=== PATIENT | male | born 1950 | race Caucasian/White ===

== ENCOUNTER 2016-12-14 11:11 | Inpatient (IN) ==
--- NOTE | 2016-12-14 11:44 | Emergency Department Note ---
START Narrative - START START: I examined this patient and my medical decision-making was reviewed with the SUPERVISOR MOLDING/PA/Advanced Practice Nurse/Resident Physician. I agree with the documented findings, disposition and treatment plan as described except to the extent set forth below. Patient to ED from the [facility]. Patient states he is still gaining weight despite being on increased Lasix. Feels fluid overloaded. Short of breath. There was also some concern as pacemaker may not been working correctly. On exam he does not appear to be in any acute distress. Plan. Cardiac workup. Diuresis. Pacemaker interrogation. On interrogation pacemaker is working correctly. Paced at 61.
[2016-12-14 11:48] LABS: Basophils % 0.6 %; Eosinophils # 0.4 K/mcL (0.0-0.6); Hematocrit 42.7 % (37.5-50.1); Hemoglobin 13.9 g/dL (12.9-16.9); Immature Granulocytes % 0.3 % (0-4); Lymphocytes % 14.5 %; Mean Corpuscular HGB Conc 32.6 g/dL (31.6-35.5); Mean Corpuscular Hemoglobin 28.6 pg (28.0-33.3); Mean Corpuscular Volume 87.9 fL (83.0-100.0); Mean Platelet Volume 9.2 fL (9.4-12.4); Monocytes # 0.7 K/mcL (0.0-1.3); Monocytes % 10.2 %; Neutrophils # 4.8 K/mcL (1.6-8.9); Platelet Count 240 K/mcL (140-400); Red Blood Count 4.86 M/mcL (4.19-5.50); Red Cell Distribution Width 15.4 % (11.5-14.5); Segmented Neutrophils % 69.4 %
[2016-12-14 11:49] LABS: INR 2.2; Prothrombin Time 24.1 Seconds (9.4-12.1)
[2016-12-14 12:01] LABS: Alanine Aminotransferase 28 Units/L (0-55); Albumin 3.3 g/dL (3.5-5.0); Alkaline Phosphatase 119 Units/L (38-126); Aspartate Amino Transferase 19 Units/L (5-34); BUN/Creatinine Ratio 14 (6-26); Bilirubin,Direct 0.2 mg/dL (0.0-0.5); Bilirubin,Indirect 0.2 mg/dL (0.0-1.2); Bilirubin,Total 0.4 mg/dL (0.2-1.2); Blood Urea Nitrogen 19 mg/dL (8-26); Calcium 9.1 mg/dL (8.6-10.8); Carbon Dioxide 28 mEq/L (19-29); Chloride 107 mEq/L (98-109); Globulin 3.3 g/dL (2.4-3.5); Glucose 96 mg/dL (70-99); Osmolality,Calculated 290 (280-300); Potassium 4.9 mEq/L (3.5-4.5); Sodium 139 mEq/L (136-145); Total Protein 6.6 g/dL (6.0-8.3); eGFR For African Americans > 60 (> 60); eGFR For Non-African Americans 52 (> 60)
--- NOTE | 2016-12-14 12:52 | Emergency Department Note ---
Disposition Clinical Impression: Weakness, Acute kidney injury CHF exacerbation Qualifiers: Congestive heart failure type: unspecified congestive heart failure type Qualified Code(s): I50.9 - Heart failure, unspecified Disposition: Admitted As Inpatient Condition: Fair SOB HPI - General Chief Complaint: ED Shortness of Breath/Dyspnea Stated Complaint: jorge, pacemaker issues Time Seen by Provider: 12/14/16 11:12 Source: patient, EMS Mode of arrival: ambulatory Limitations: no limitations Nursing Notes Reviewed: Yes Vital Signs Reviewed: Yes - History of Present Illness Patient presents from [place] urgent care after evaluation of shortness of breath and generalized weakness. Patient has been having problems over the last week which has been treated outpatient with an increase in his Lasix from 80 twice a day to 3 times a day. Patient continues to have increased swelling in his legs and reports a 2 pound weight gain over the last 2 days. Patient has significant cardiac history. states that he typically does not get around a lot at home. Patient does well on his transfers but spends most of his time in a wheelchair. - Related Data Home Medications Medication Instructions Recorded Confirmed Aspirin Enteric Coated [Aspirin EC] 81 mg PO DAILY #0 04/09/15 12/14/16 Rivaroxaban [Xarelto] 20 mg PO DAILY #0 04/09/15 12/14/16 Trazodone HCl [TraZODone] 150 mg PO HS 12/20/15 12/14/16 Melatonin 9 mg PO HS 12/23/15 12/14/16 Finasteride [Proscar] 5 mg PO DAILY 01/30/16 12/14/16 Tamsulosin [Flomax] 0.4 mg PO DAILY 01/30/16 12/14/16 Cholecalciferol (Vitamin D3) 1,000 unit PO DAILY 03/12/16 12/14/16 [Vitamin D3] Albuterol Sulfate [Proair Hfa] 1 puff IH Q4H 12/14/16 12/14/16 Atorvastatin [Lipitor] 40 mg PO HS 12/14/16 12/14/16 Capsaicin [Arthritis Pain Relief] 1 appl TP HS PRN 12/14/16 12/14/16 Duloxetine HCl [Cymbalta] 60 mg PO DAILY 12/14/16 12/14/16 Fluticasone Propionate Nasal 1 spray NS BID 12/14/16 12/14/16 [Flonase] Furosemide [Lasix] 80 mg PO BID 12/14/16 12/14/16 Gabapentin [Neurontin] 400 mg PO BID 12/14/16 12/14/16 Imiquimod [Zyclara] 1 appl TP HS 12/14/16 12/14/16 LORazepam [Ativan] 0.5 mg PO HS 12/14/16 12/14/16 Magnesium Carbonate/Al Hydrox 2 tab PO BID PRN 12/14/16 12/14/16 [Gaviscon Es Tablet Chew] Memantine [Namenda] 5 mg PO AD 12/14/16 12/14/16 Metoprolol Succinate 25 mg PO DAILY 12/14/16 12/14/16 Oxycodone HCl [Oxaydo] 10 mg PO BID PRN 12/14/16 12/14/16 Pantoprazole Sodium [Protonix] 40 mg PO DAILY 12/14/16 12/14/16 Polyethylene Glycol 3350 [MiraLAX 17 gm PO DAILY PRN 12/14/16 12/14/16 Powder Bulk 17.9 Oz] Potassium Chloride [Klor-Con 20 meq PO QID 12/14/16 12/14/16 Sprinkle] Sennosides/Docusate Sodium 1 tab PO BID 12/14/16 12/14/16 [Senna-Docusate Sodium Tablet] Spironolactone [Aldactone] 50 mg PO DAILY 12/14/16 12/14/16 Tizanidine HCl [Zanaflex] 2 mg PO BID 12/14/16 12/14/16 metOLazone [Zaroxolyn] 2.5 mg PO DAILY 12/14/16 12/14/16 Allergies Allergy/AdvReac Type Severity Reaction Status Date / Time IVP DYE Allergy Anaphylaxis Uncoded 12/23/15 21:12 Review of Systems: CONSTITUTIONAL: Generalized weakness and fatigue No weight loss, fever, chills, HEENT: Eyes: No visual changes. Ears, Nose, Throat: No hearing loss, difficulty talking or unable to swallow. SKIN: No rash or itching. CARDIOVASCULAR: Increasing lower extremity edema No chest pain, chest pressure or chest discomfort. No palpitation RESPIRATORY: Increasing shortness of breath GASTROINTESTINAL: No anorexia, nausea, vomiting or diarrhea. No abdominal pain or blood. GENITOURINARY: No burning on urination or hematuria. NEUROLOGICAL: No headache, dizziness, syncope, paralysis, ataxia, numbness or tingling in the extremities. No change in bowel or bladder control. MUSCULOSKELETAL: No muscle pain, back pain, joint pain or stiffness. Past Medical History - Past Medical History Medical history: Reports: arthritis, atrial fibrillation, CHF, COPD, coronary artery disease, CVA, GERD, hyperlipidemia, hypertension, pulmonary embolus, syncope, venous stasis, other Surgical history: Reports: herniorrhaphy, knee replacement, pacemaker/AICD, other Psychiatric history: Reports: anxiety, depression - Social History Smoking Status: Former smoker Smokeless Tobacco Status: No Alcohol use: Reports: none Drug use: Reports: none Physical Exam General appearance: Feels tired, prefers keeping his eyes closed. conversant Eyes: anicteric sclerae, moist conjunctivae; PERRL HENT: Atraumatic; oropharynx clear with moist mucous membranes and no mucosal ulcerations Neck: Normal inspection; Trachea midline; FROM, supple Lungs: CTA, with normal respiratory effort and no intercostal retractions CV: RRR, no MRGs Abdomen: Soft, non-tender; no rebound or gaurding Scrotum with mild edema but no ecchymosis or significant tenderness. Extremities: +2 pitting edema to the knee Skin: Normal temperature; no rash, ulcers or lesions Psych: Flat affect Neuro: alert and oriented to person, place and time - Expanded Neurological Exam Speech: Present: anomia Cranial nerves: EOM function (II, III, IV, ): Normal, facial sensation (V): Normal, facial palsy (VII): Normal, spinal accessory function (XI): Normal, tongue deviation (XII): Normal Motor strength - LUE: 5/5 Motor strength - RUE: 5/5 Motor strength - LLE: 5/5 Motor strength - RLE: 5/5 Sensory exam upper extremity: light touch: Normal Sensory exam lower extremity: light touch: Normal Coma Scale Eye Opening: Spontaneous Coma Scale Motor Response: Obeys Commands Coma Scale Verbal Response: Oriented Coma Scale Total: 15 Course - Reevaluation(s) Reevaluation #1: Transferring physician initially worried about some pacemaker QRS dissociation. Not appreciated on our EKG. Pacemaker interrogated without abnormality. Reevaluation #2: Discussed with . states that with the swelling she is concerned about his heart failure as this is what has happened in the past. She says his heart enzymes were never elevated but that this has been the cause in the past as well. Patient is improved in the past after fluid removal. At this time the patient has increased his home Lasix and does have acute kidney injury. Lasix held at this time. Will defer to the hospitalist team in regards to further management of CHF exacerbation as he is not in current distress. - Consultations Consultation #1: Discussed with hospitalist. Patient accepted. Vital Signs Temperature 97.5 F L 12/14/16 11:12 Pulse Rate 63 12/14/16 11:12 Respiratory Rate 20 12/14/16 11:12 Blood Pressure 94/63 12/14/16 11:12 O2 Sat by Pulse Oximetry 91 12/14/16 11:12 Temperature 97.4 F L 12/14/16 14:35 Pulse Rate 65 12/14/16 14:35 Respiratory Rate 14 12/14/16 14:35 Blood Pressure 103/70 12/14/16 14:35 O2 Sat by Pulse Oximetry 96 12/14/16 14:35 Oxygen Delivery Oxygen Delivery Nasal Cannula Shortness of Breath/Dyspnea - Lab Data Result diagrams: 12/14/16 11:37 12/14/16 11:37 Lab Results 12/14/16 12/14/16 12/14/16 Range/Units 11:37 11:37 11:37 WBC 7.0 (4.3-11.1) K/mcL RBC 4.86 (4.19-5.50) M/mcL Hgb 13.9 (12.9-16.9) g/dL Hct 42.7 (37.5-50.1) % MCV 87.9 (83.0-100.0) fL MCH 28.6 (28.0-33.3) pg MCHC 32.6 (31.6-35.5) g/dL RDW 15.4 H (11.5-14.5) % Plt Count 240 (140-400) K/mcL MPV 9.2 L (9.4-12.4) fL Immature Gran % 0.3 (0-4) % Seg Neutrophils % 69.4 % Lymphocytes % 14.5 % Monocytes % 10.2 % Eosinophils % 5.0 % Basophils % 0.6 % Neutrophils # 4.8 (1.6-8.9) K/mcL Lymphocytes # 1.0 (0.6-4.6) K/mcL Monocytes # 0.7 (0.0-1.3) K/mcL Eosinophils # 0.4 (0.0-0.6) K/mcL Basophils # 0.0 (0.0-0.2) K/mcL PT 24.1 H (9.4-12.1) Seconds INR 2.2 Sodium 139 (136-145) mEq/L Potassium 4.9 H (3.5-4.5) mEq/L Chloride 107 (98-109) mEq/L Carbon Dioxide 28 (19-29) mEq/L BUN 19 (8-26) mg/dL Creatinine 1.38 H (0.72-1.25) mg/dL Est GFR ( Amer) > 60 (> 60) Est GFR (Non-Af Amer) 52 L (> 60) BUN/Creatinine Ratio 14 (6-26) Glucose 96 (70-99) mg/dL Calculated Osmolality 290 (280-300) Calcium 9.1 (8.6-10.8) mg/dL Total Bilirubin 0.4 (0.2-1.2) mg/dL Direct Bilirubin 0.2 (0.0-0.5) mg/dL Indirect Bilirubin 0.2 (0.0-1.2) mg/dL AST 19 (5-34) Units/L ALT 28 (0-55) Units/L Alkaline Phosphatase 119 (38-126) Units/L Troponin I (0-0.03) ng/mL B-Natriuretic Peptide (0-100) pg/mL Serum Total Protein 6.6 (6.0-8.3) g/dL Albumin 3.3 L (3.5-5.0) g/dL Globulin 3.3 (2.4-3.5) g/dL Albumin/Globulin Ratio 1.0 L (1.1-2.2) 12/14/16 12/14/16 Range/Units 11:37 11:37 WBC (4.3-11.1) K/mcL RBC (4.19-5.50) M/mcL Hgb (12.9-16.9) g/dL Hct (37.5-50.1) % MCV (83.0-100.0) fL MCH (28.0-33.3) pg MCHC (31.6-35.5) g/dL RDW (11.5-14.5) % Plt Count (140-400) K/mcL MPV (9.4-12.4) fL Immature Gran % (0-4) % Seg Neutrophils % % Lymphocytes % % Monocytes % % Eosinophils % % Basophils % % Neutrophils # (1.6-8.9) K/mcL Lymphocytes # (0.6-4.6) K/mcL Monocytes # (0.0-1.3) K/mcL Eosinophils # (0.0-0.6) K/mcL Basophils # (0.0-0.2) K/mcL PT (9.4-12.1) Seconds INR Sodium (136-145) mEq/L Potassium (3.5-4.5) mEq/L Chloride (98-109) mEq/L Carbon Dioxide (19-29) mEq/L BUN (8-26) mg/dL Creatinine (0.72-1.25) mg/dL Est GFR ( Amer) (> 60) Est GFR (Non-Af Amer) (> 60) BUN/Creatinine Ratio (6-26) Glucose (70-99) mg/dL Calculated Osmolality (280-300) Calcium (8.6-10.8) mg/dL Total Bilirubin (0.2-1.2) mg/dL Direct Bilirubin (0.0-0.5) mg/dL Indirect Bilirubin (0.0-1.2) mg/dL AST (5-34) Units/L ALT (0-55) Units/L Alkaline Phosphatase (38-126) Units/L Troponin I 0.00 (0-0.03) ng/mL B-Natriuretic Peptide 194 H (0-100) pg/mL Serum Total Protein (6.0-8.3) g/dL Albumin (3.5-5.0) g/dL Globulin (2.4-3.5) g/dL Albumin/Globulin Ratio (1.1-2.2)
[2016-12-14] MEDS ORDERED: Acetaminophen 325 MG TABLET PO PRN (14:17)
[2016-12-14] MEDS ORDERED: Naloxone 0.4 MG/ML INJ IVP PRN (14:17)
[2016-12-14] MEDS ORDERED: Furosemide 80 MG in 0.9 % Sodium Chloride 50 ML IVPB ONE (14:33)
--- NOTE | 2016-12-14 14:47 | Internal Med History&Physical ---
<Miguel Ángel Samano - Last Filed: 12/14/16 17:35> Date of Encounter: 12/14/16 Internal Medicine - H&P: HPI History of present illness: Mr. Issa is a 66 year old male Internal Medicine - H&P: Meds Aspirin Enteric Coated [Aspirin EC] 81 mg PO DAILY #0 04/09/15 [History] Rivaroxaban [Xarelto] 20 mg PO DAILY #0 04/09/15 [History] Trazodone HCl [TraZODone] 150 mg PO HS 12/20/15 [History] Melatonin 9 mg PO HS 12/23/15 [History] Finasteride [Proscar] 5 mg PO DAILY 01/30/16 [History] Tamsulosin [Flomax] 0.4 mg PO DAILY 01/30/16 [History] Cholecalciferol (Vitamin D3) [Vitamin D3] 1,000 unit PO DAILY 03/12/16 [History] Albuterol Sulfate [Proair Hfa] 1 puff IH Q4H 12/14/16 [History] Atorvastatin [Lipitor] 40 mg PO HS 12/14/16 [History] Capsaicin [Arthritis Pain Relief] 1 appl TP HS PRN 12/14/16 [History] Duloxetine HCl [Cymbalta] 60 mg PO DAILY 12/14/16 [History] Fluticasone Propionate Nasal [Flonase] 1 spray NS BID 12/14/16 [History] Furosemide [Lasix] 80 mg PO BID 12/14/16 [History] Gabapentin [Neurontin] 400 mg PO BID 12/14/16 [History] Imiquimod [Zyclara] 1 appl TP HS 12/14/16 [History] LORazepam [Ativan] 0.5 mg PO HS 12/14/16 [History] Magnesium Carbonate/Al Hydrox [Gaviscon Es Tablet Chew] 2 tab PO BID PRN [History] Memantine [Namenda] 5 mg PO AD 12/14/16 [History] Metoprolol Succinate 25 mg PO DAILY 12/14/16 [History] Oxycodone HCl [Oxaydo] 10 mg PO BID PRN 12/14/16 [History] Pantoprazole Sodium [Protonix] 40 mg PO DAILY 12/14/16 [History] Polyethylene Glycol 3350 [MiraLAX Powder Bulk 17.9 Oz] 17 gm PO DAILY PRN [History] Potassium Chloride [Klor-Con Sprinkle] 20 meq PO QID 12/14/16 [History] Sennosides/Docusate Sodium [Senna-Docusate Sodium Tablet] 1 tab PO BID 12/14/16 [History] Spironolactone [Aldactone] 50 mg PO DAILY 12/14/16 [History] Tizanidine HCl [Zanaflex] 2 mg PO BID 12/14/16 [History] metOLazone [Zaroxolyn] 2.5 mg PO DAILY 12/14/16 [History] Allergies IVP DYE Allergy (Uncoded 12/23/15 21:12) Anaphylaxis All Systems PM: A 10-system review of systems was performed and is negative for pertinent findings except as documented above in the HPI. - Constitutional Vitals: Temp Pulse Resp BP Pulse Ox 97.4 F L 65 14 103/70 96 12/14/16 14:35 12/14/16 14:35 12/14/16 14:35 12/14/16 14:35 12/14/16 14:35 Internal Med - H&P Results - Labs CBC & Chem 7: 12/14/16 11:37 12/14/16 11:37 - Attending Attestation I examined this patient and my medical decision-making was reviewed with the Advanced Practice Nurse. I agree with the documented findings, disposition and treatment plan as described except to the extent set forth below. Patient denies chest pain. Reports generalized joint aches and pains secondary to neuropathy. On exam his is in no acute distress. Heart: S1-S2 regular. Lungs: Clear to auscultation bilaterally. Extremities: 2+ lower extremity pitting edema EKG reveals atrially paced rhythm with no acute ST or T-wave changes. Plan: IV Lasix. Fluid restriction. Strict I's and O's. Hold metolazone. Monitor kidney function daily. Trend troponin. <Caprice Cast - Last Filed: 12/14/16 23:13> Date of Encounter: 12/14/16 Time of Encounter: 14:44 Assessment and Plan (1) Acute on chronic diastolic (congestive) heart failure Current visit: Yes Status: Acute Patient with increasing lower extremity edema and increased shortness of breath over the last few days, despite increasing his lasix dose from 80mg BID to 80mg TID. BNP is elevated to 194, which is highest value for this patient. CXR shows chronic small left pleural effusion with left basilar scarring and atelectasis. On exam, lungs are clear, BLE with +2 pitting edema. Last echocardiogram 04/18/16 which showed LVEF of 60%, normal LV size, wall thickness and function, moderate left ventricular diastolic dysfunction. 80mg Lasix IVPB 40mg Lasix IVP BID daily weights cardiac diet with 1.5L fluid restriction strict I/O echocardiogram. (2) Abnormal international normal ratio (INR) Current visit: Yes Status: Acute Patient with INR of 2.2. Patient not on Warfarin. He takes Xarelto for his chronic afib, which should not affect INR. will give one dose of vitamin K, continue xarelto, Check PT/INR daily. Consider consulting hematology. (3) Weakness Current visit: No Status: Acute Patient with generalized weakness. likely secondary to increased fluid retention and CHF exacerbation. PT and OT consulted. (4) Muscular deconditioning Current visit: No Status: Chronic PT and OT consultations (5) Acute kidney injury Current visit: Yes Status: Acute Patient with AG, creatinine of 1.38, up from previous of 0.99. Patient had lasix increased recently, but is in CHF exacerbation now and will continue to get lasix. Patient also reporting occasional dysuria. Will check UA and check chemistry daily. (6) Atrial fibrillation Current visit: Yes Status: Acute Patient with atrial fibrillation, also history of sick sinus syndrome with pacemaker/AICD. Pacemake was interrogated by ED which found no abnormalities. Patient takes Metoprolol for rate control and xarelto for anti-coagulation. Continue home dose of metoprolol and xarelto. Qualifiers: Atrial fibrillation type: paroxysmal Qualified Code(s): I48.0 - Paroxysmal atrial fibrillation (7) DVT prophylaxis Current visit: Yes Status: Acute anti-embolic stockings INR elevated at 2.2, patient on xarelto, additional pharmacologic prophylaxis not warranted. Internal Medicine - H&P: HPI Chief complaint: shortness of breath, weakness Admitted From: Emergency Dept Plans for Post Hospital Care: Home History of present illness: Mr. Issa is a 66 year old male with hypertension, hyperlipidemia, history of CVA, diastolic congestive heart failure, COPD, sick sinus syndrome status post pacemaker and AICD, atrial fibrillation, presented to the emergency department today from the [place] urgent care with complaints of increased bilateral lower extremity edema, increased shortness of breath, and weakness. Patient reports that the symptoms have been increasing over the last couple of days. He reports increased lightheadedness with position change, palpitations occasionally, increase in weight by 2 pounds over the last 2 days. He reports occasional burning with urination and sweats on and off. He also reports chronic nausea, and chronic bilateral lower extremity numbness and tingling. He denies vomiting, diarrhea, fever, chills. He reports he saw his compliance and control analyst Dr. Flood 2 days ago who increased his Lasix from 80 by mouth twice a day to 80 by mouth 3 times a day, but reports this has not helped his increased swelling or shortness of breath. Evaluation in the emergency department included a chest x-ray which showed chronic small left pleural effusion with left basilar scarring and atelectasis. BNP was elevated to 194, which is the highest value for this patient, troponin was negative at 0.00. He had AK I with creatinine of 1.38. INR was elevated at 2.2, the patient's not on warfarin. On exam, patient alert and oriented, in no acute distress. Heart had regular rate and rhythm, lungs are clear bilaterally to auscultation. Abdomen was distended, mildly tender to palpation. Bilateral lower extremity had +2 pitting edema. Past Med Surg Social Fam HX - Past Medical History Medical history: arthritis, atrial fibrillation, CHF, COPD, coronary artery disease, CVA, GERD, hyperlipidemia, hypertension, pulmonary embolus, syncope, venous stasis, other Psychiatric history: anxiety, depression - Past Surgical History Surgical History: herniorrhaphy, knee replacement, pacemaker/AICD, other ( cardiac ablation) - Social History Smoking Status: Former smoker (64 pack year history) Smokeless Tobacco Status: No Alcohol use: none Drug use: none - Family History Father Adopted: No Family Member Ethnicity: Non- Living Status: Age at : 43 Cause of : Cancer Hx Family Cancer: Yes Mother Adopted: No Family Member Ethnicity: Non- Twin of Family Member: Yes Living Status: Still Living Hx Family Cardiac Disorders: Yes Hx Family Respiratory Disorders: No Hx Family Cancer: Yes (father leukemia) Hx Family GI Disorders: No Hx Family Endocrine Disorder: No Hx Family Neuromuscular Disorders: No Hx Family Neurologic Disorders: No Hx Family HEENT Disorders: No Hx Family Autoimmune Disorders: Yes (arthritis) All Systems PM: A 10-system review of systems was performed and is negative for pertinent findings except as documented above in the HPI. - Constitutional Constitutional: weakness, no chills, no fever(s), no night sweats - EENT Eyes: no change in vision, no discharge, no pain, no photophobia Ears: no ear discharge, no ear pain, no tinnitus Nose, mouth and throat: no dysphagia, no nasal discharge, no neck pain, no sore throat - Cardiovascular Cardiovascular ROS IM: dyspnea, dyspnea on exertion, lightheadedness, palpitations, no chest pain, no diaphoresis, no syncope - Respiratory Respiratory: dyspnea, no cough, no wheezing, no excessive phlegm production - Gastrointestinal Gastrointestinal: nausea, no abdominal pain, no diarrhea, no hematemesis, no hematochezia, no melena, no vomiting - Genitourinary Genitourinary ROS male: dysuria, urinary hesitancy - Musculoskeletal Musculoskeletal ROS IM: numbness, tingling (chronic in bilateral feet) - Integumentary Integumentary IM: no rash, no unusual bruising - Neurological Neurological ROS: no confusion, no convulsions, no focal weakness, no numbness, no tingling, no tremor(s) - Hematologic/Lymphatic Hematologic/Lymphatic: no easy bruising - Constitutional Vitals: Temp Pulse Resp BP Pulse Ox 97.4 F L 65 14 103/70 96 12/14/16 14:35 12/14/16 14:35 12/14/16 14:35 12/14/16 14:35 12/14/16 14:35 General appearance: Present: A&O X 3, pleasant - Head Head exam: Present: atraumatic, normocephalic - Eye Eye exam: Present: PERRL, conjuntiva pink, sclera anicteric Pupils: Present: PERRL - Neck Neck exam general surgery: Present: supple, trachea midline. Absent: lymphadenopathy - Respiratory Respiratory exam: Present: CTAB. Absent: accessory muscle use, rales, rhonchi, wheezes - Cardiovascular Cardiovascular exam: Present: RRR, +S1, +S2. Absent: diastolic murmur, gallop, rubs, systolic murmur - GI/Abdominal GI/Abdominal exam: Present: normal bowel sounds, soft, tenderness (mild diffuse) , no peritoneal signs. Absent: distended - Extremities Exam Extremities exam: Present: pedal edema (+2 BLE edema), warm, radial pulses palpable and symetrical. Absent: calf tenderness, cyanotic - Neurological Exam Neurological exam: Present: CN II-XII intact, oriented X3, no focal deficits. Absent: facial droop, speech deficit - Skin Skin exam: Present: dry, intact Internal Med - H&P Results - Labs CBC & Chem 7: 12/14/16 11:37 12/14/16 11:37 Labs: All Lab Results (24 Hours) 12/14/16 12/14/16 12/14/16 Range/Units 11:37 11:37 11:37 WBC 7.0 (4.3-11.1) K/mcL RBC 4.86 (4.19-5.50) M/mcL Hgb 13.9 (12.9-16.9) g/dL Hct 42.7 (37.5-50.1) % MCV 87.9 (83.0-100.0) fL MCH 28.6 (28.0-33.3) pg MCHC 32.6 (31.6-35.5) g/dL RDW 15.4 H (11.5-14.5) % Plt Count 240 (140-400) K/mcL MPV 9.2 L (9.4-12.4) fL Immature Gran % 0.3 (0-4) % Seg Neutrophils % 69.4 % Lymphocytes % 14.5 % Monocytes % 10.2 % Eosinophils % 5.0 % Basophils % 0.6 % Neutrophils # 4.8 (1.6-8.9) K/mcL Lymphocytes # 1.0 (0.6-4.6) K/mcL Monocytes # 0.7 (0.0-1.3) K/mcL Eosinophils # 0.4 (0.0-0.6) K/mcL Basophils # 0.0 (0.0-0.2) K/mcL PT 24.1 H (9.4-12.1) Seconds INR 2.2 Sodium 139 (136-145) mEq/L Potassium 4.9 H (3.5-4.5) mEq/L Chloride 107 (98-109) mEq/L Carbon Dioxide 28 (19-29) mEq/L BUN 19 (8-26) mg/dL Creatinine 1.38 H (0.72-1.25) mg/dL Est GFR ( Amer) > 60 (> 60) Est GFR (Non-Af Amer) 52 L (> 60) BUN/Creatinine Ratio 14 (6-26) Glucose 96 (70-99) mg/dL Calculated Osmolality 290 (280-300) Calcium 9.1 (8.6-10.8) mg/dL Total Bilirubin 0.4 (0.2-1.2) mg/dL Direct Bilirubin 0.2 (0.0-0.5) mg/dL Indirect Bilirubin 0.2 (0.0-1.2) mg/dL AST 19 (5-34) Units/L ALT 28 (0-55) Units/L Alkaline Phosphatase 119 (38-126) Units/L Troponin I (0-0.03) ng/mL B-Natriuretic Peptide (0-100) pg/mL Serum Total Protein 6.6 (6.0-8.3) g/dL Albumin 3.3 L (3.5-5.0) g/dL Globulin 3.3 (2.4-3.5) g/dL Albumin/Globulin Ratio 1.0 L (1.1-2.2) 12/14/16 12/14/16 Range/Units 11:37 11:37 WBC (4.3-11.1) K/mcL RBC (4.19-5.50) M/mcL Hgb (12.9-16.9) g/dL Hct (37.5-50.1) % MCV (83.0-100.0) fL MCH (28.0-33.3) pg MCHC (31.6-35.5) g/dL RDW (11.5-14.5) % Plt Count (140-400) K/mcL MPV (9.4-12.4) fL Immature Gran % (0-4) % Seg Neutrophils % % Lymphocytes % % Monocytes % % Eosinophils % % Basophils % % Neutrophils # (1.6-8.9) K/mcL Lymphocytes # (0.6-4.6) K/mcL Monocytes # (0.0-1.3) K/mcL Eosinophils # (0.0-0.6) K/mcL Basophils # (0.0-0.2) K/mcL PT (9.4-12.1) Seconds INR Sodium (136-145) mEq/L Potassium (3.5-4.5) mEq/L Chloride (98-109) mEq/L Carbon Dioxide (19-29) mEq/L BUN (8-26) mg/dL Creatinine (0.72-1.25) mg/dL Est GFR ( Amer) (> 60) Est GFR (Non-Af Amer) (> 60) BUN/Creatinine Ratio (6-26) Glucose (70-99) mg/dL Calculated Osmolality (280-300) Calcium (8.6-10.8) mg/dL Total Bilirubin (0.2-1.2) mg/dL Direct Bilirubin (0.0-0.5) mg/dL Indirect Bilirubin (0.0-1.2) mg/dL AST (5-34) Units/L ALT (0-55) Units/L Alkaline Phosphatase (38-126) Units/L Troponin I 0.00 (0-0.03) ng/mL B-Natriuretic Peptide 194 H (0-100) pg/mL Serum Total Protein (6.0-8.3) g/dL Albumin (3.5-5.0) g/dL Globulin (2.4-3.5) g/dL Albumin/Globulin Ratio (1.1-2.2) - Diagnostic Studies Chest x-ray Additional comments: Chest X-Ray 12/14/16 11:15 IMPRESSION: Chronic small left pleural effusion with left basilar scarring and atelectasis. D/ / Tyrese Oviedo MD / Tyrese Oviedo MD Interpreting Provider: Tyrese Oviedo MD
[2016-12-14] MEDS ORDERED: *HR* Phytonadione 5 MG TABLET PO ONE (16:33)
[2016-12-14] MEDS: *HR* HYDROcodone/Acet 5/325 mg TABLET PO PRN (17:16)
[2016-12-14 18:23] LABS: Bilirubin,Urine Negative (Negative); Blood,Urine Negative (Negative); Clarity,Urine Clear (Clear); Color,Urine Yellow (Yellow); Glucose,Urine (UA) Normal (Normal); Ketones,Urine Negative (Negative); Leukocyte Esterase,Urine Negative (Negative); Nitrite,Urine Negative (Negative); PH,Urine 6.5 pH Units (5.0-8.0); Protein,Urine Negative (Neg-Trace); Urobilinogen,Urine Normal (Normal)
--- NOTE | 2016-12-14 19:43 | Electrocardiograph Report ---
[address] [place] [address] Test Date: 2016-12-14 Pat Name: Dakota Issa Department: 105 Room: 3B Gender: M Polygraph Operator: AM : 1950 Requested By: Wu Ledesma Order Number: [id number] Reading MD: Delfino Xavier MD Measurements Intervals [place] Rate: 61 P: 234 IN: 287 QRS: 73 QRSD: 130 T: 69 QT: 442 QTc: 445 Interpretive Statements ELECTRONIC ATRIAL PACEMAKER POSSIBLE INFERIOR MYOCARDIAL INFARCTION, OF INDETERMINATE AGE Electronically Signed On 12-14-2016 19:42:18 EDT by Delfino Xavier MD
[2016-12-14] MEDS: Melatonin 3 MG TABLET PO SCH (21:22)
[2016-12-14] MEDS: *HR* LORazepam 0.5 MG TABLET PO SCH (21:23)
[2016-12-14] MEDS: Fluticasone Propionate Nasal 50 MCG/SPRAY BOTTLE NS SCH (21:23)
[2016-12-14] MEDS: tiZANidine 4 MG TABLET PO SCH (21:23)
[2016-12-14] MEDS: traZODone 50 MG TABLET PO SCH (21:23)
[2016-12-14] MEDS: Gabapentin 400 MG CAPSULE PO SCH (21:23)
[2016-12-14] MEDS: Sennosides/Docusate Sodium TABLET PO SCH (21:23)
[2016-12-15 01:00] LABS: Basophils % 0.4 %; Eosinophils # 0.4 K/mcL (0.0-0.6); Eosinophils % 5.5 %; Hematocrit 41.7 % (37.5-50.1); Hemoglobin 13.3 g/dL (12.9-16.9); Immature Granulocytes % 0.3 % (0-4); Lymphocytes # 1.1 K/mcL (0.6-4.6); Lymphocytes % 14.8 %; Mean Corpuscular HGB Conc 31.9 g/dL (31.6-35.5); Mean Corpuscular Volume 87.8 fL (83.0-100.0); Mean Platelet Volume 9.5 fL (9.4-12.4); Monocytes # 0.7 K/mcL (0.0-1.3); Monocytes % 9.2 %; Neutrophils # 5.4 K/mcL (1.6-8.9); Platelet Count 250 K/mcL (140-400); Red Blood Count 4.75 M/mcL (4.19-5.50); Red Cell Distribution Width 15.3 % (11.5-14.5); Segmented Neutrophils % 69.8 %
[2016-12-15 01:06] LABS: INR 1.5; Prothrombin Time 16.6 Seconds (9.4-12.1)
[2016-12-15 01:08] LABS: Activated Partial Thrombo Time 34.9 Seconds (26.0-36.0)
[2016-12-15 01:16] LABS: BUN/Creatinine Ratio 13 (6-26); Blood Urea Nitrogen 18 mg/dL (8-26); Calcium 8.6 mg/dL (8.6-10.8); Carbon Dioxide 32 mEq/L (19-29); Chloride 102 mEq/L (98-109); Chol/HDL Ratio 6.1 (0-4.9); Cholesterol 129 mg/dL (< 200); Glucose 116 mg/dL (70-99); HDL Cholesterol 21 mg/dL (40-59); LDL Cholesterol,Calculated 82 mg/dL (0-99); Osmolality,Calculated 293 (280-300); Potassium 4.2 mEq/L (3.5-4.5); Sodium 140 mEq/L (136-145); Triglycerides 128 mg/dL (< 150); eGFR For African Americans > 60 (> 60); eGFR For Non-African Americans 50 (> 60)
[2016-12-15] MEDS ORDERED: Furosemide 40 MG/4 ML VIAL IVP SCH (08:00)
[2016-12-15] MEDS ORDERED: Spironolactone 25 MG TABLET PO SCH (09:00)
[2016-12-15] MEDS ORDERED: NON-FORMULARY MEDICATION 1 EACH EACH (Rivaroxaban [Xarelto] 20 MG) PO SCH (09:00)
[2016-12-15] MEDS: Finasteride 5 MG TABLET PO SCH (09:31)
[2016-12-15] MEDS: Aspirin Enteric Coated 81 MG Tablet PO SCH (09:31)
[2016-12-15] MEDS: Sennosides/Docusate Sodium TABLET PO SCH ×2 (09:31→22:08)
[2016-12-15] MEDS: Gabapentin 400 MG CAPSULE PO SCH ×2 (09:31→22:07)
[2016-12-15] MEDS: Metoprolol XL (24 HR) Succ 25 MG TAB.ER.24H PO SCH (09:32)
[2016-12-15] MEDS: tiZANidine 4 MG TABLET PO SCH ×2 (09:32→22:07)
[2016-12-15] MEDS: Fluticasone Propionate Nasal 50 MCG/SPRAY BOTTLE NS SCH ×2 (09:32→22:09)
[2016-12-15] MEDS: *HR* HYDROcodone/Acet 5/325 mg TABLET PO PRN ×3 (09:44→22:21)
--- NOTE | 2016-12-15 14:33 | Internal Med Progress Note ---
Date of Encounter: 12/15/16 Time of Encounter: 10:30 - Assessment and plan (1) Acute on chronic diastolic (congestive) heart failure Current Visit: Yes Status: Acute Assessment and plan: Patient appears fluid overloaded on examination although his lower extremity edema has improved as has his ascites. Shortness of breath is also improving. Will wean oxygen as he tolerates. Echocardiogram revealing preserved ejection fraction of 55%. Acute on chronic diastolic heart failure, diuresing. 2 days prior to this presentation, patient has seen his hide and skin colerer outpatient who increased his by mouth furosemide from 160 mg per day to 240 mg divided into 3 doses. Patient stating his swelling and shortness of breath continued despite this increased dose. Renal functioning has remained stable, will continue to train as we diurese him. Continue fluid and sodium restricted diet. His family has requested that cardiology be on board but he is admitted, cardiology consulted. Of note, patient complains of dysuria, urinalysis normal. Patient denies any rashes or lesions around his genitalia. (2) Physical deconditioning Current Visit: No Status: Chronic Assessment and plan: Acute on chronic. Patient stating he has 2 bad knees so he is unable to ambulate very well therefore he chooses not to ambulate. He is also requesting that his chronic pain medications be increased stating that he feels as if he is growing tolerant of his current dosing. We will leave this to the discretion of his primary care team. Patient stating he would just left [facility] where [facility] until 11/22/16. He states that he was inpatient at the [facility] all winter and is only been home couple weeks. Concern for acquired helplessness as the patient's chief complaint and main concern changes every time and a staff member comes in. He has a stress concern over a chronic wart on his hand, concern over increasing his pain medications, concern over getting different types of food, and several other issues. Concerned that the patient has become dependent upon others. OT and PT consultations are pending. 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 Currently on 4 L per nasal cannula, continuing to diurese. Will wean as he tolerates. (7) Hypertension Current Visit: No Status: Chronic Assessment and plan: Patient has been borderline hypotensive since admission. At home, he is on spironolactone 50 mg daily, metoprolol 25 mg daily, furosemide 80 mg twice a day. Holding his spironolactone. We will continue to trend as he is diuresed. Qualifiers: Hypertension type: essential hypertension Qualified Code(s): I10 - Essential (primary) hypertension (8) Paroxysmal a-fib Current Visit: No Status: Chronic Assessment and plan: Rate controlled. Anticoagulated with Xarelto. (9) CAD (coronary atherosclerotic disease) Current Visit: No Status: Chronic Qualifiers: Coronary Disease-Associated Artery/Lesion type: unspecified vessel or lesion type [place] vs. transplanted heart: [place] heart Associated angina: without angina Qualified Code(s): I25.10 - Atherosclerotic heart disease of [place] coronary artery without angina pectoris (10) Depression with anxiety Current Visit: No Status: Chronic Assessment and plan: denies suicidal ideation. (11) Dyspnea on exertion Current Visit: No Status: Acute Assessment and plan: acute on chronic. multifactorial. (12) Acute kidney injury Current Visit: Yes Status: Acute Assessment and plan: Mild, stable, will continue to trend. (13) Abnormal international normal ratio (INR) Current Visit: Yes Status: Resolved (14) DVT prophylaxis Current Visit: Yes Status: Acute Assessment and plan: on Xarelto - Subjective Interval history: Patient seen and examined. On examination, patient resting supine in bed watching television. Patient stating he still feels weak. He states his breathing is slightly improved but he continues to be more short of breath than usual. He feels as if his lower extremity edema has gotten better stating that his ankles do not feel as tight as they were. He also states the extra swelling in his abdomen has gotten down. He states that his abdominal girth is still larger than normal. - Constitutional Vitals: Temp Pulse Resp BP Pulse Ox 97.6 F 62 16 106/74 94 12/15/16 10:49 12/15/16 10:49 12/15/16 11:27 12/15/16 10:49 12/15/16 11:27 General appearance: Present: disheveled, A&O X 3, pleasant, no acute distress, answers questions appropriately - Head Head exam: Present: atraumatic, normocephalic - Eye Eye exam: Present: PERRL, conjuntiva pink, sclera anicteric Pupils: Present: PERRL - Neck Neck exam general surgery: Present: supple, trachea midline. Absent: lymphadenopathy - Respiratory Respiratory exam: Present: decreased breath sounds. Absent: accessory muscle use, rales, respiratory distress, rhonchi, wheezes - Cardiovascular Cardiovascular exam: Present: RRR, +S1, +S2. Absent: diastolic murmur, gallop, rubs, systolic murmur - GI/Abdominal GI/Abdominal exam: Present: distended, normal bowel sounds, soft, no peritoneal signs. Absent: tenderness - Extremities Exam Extremities exam: Present: pedal edema (1+ bilaterally), warm, radial pulses palpable and symetrical. Absent: calf tenderness, cyanotic - Neurological Exam Neurological exam: Present: alert, CN II-XII intact, oriented X3, no focal deficits, strengths equal and symetr throughout. Absent: pronater drift, facial droop, speech deficit - Skin Skin exam: Present: dry, intact, pallor, warm Internal Medicine: Result - Labs CBC & Chem 7: 12/15/16 00:41 12/15/16 00:41 Labs: Short CBC 12/15/16 Range/Units 00:41 WBC 7.7 (4.3-11.1) K/mcL Hgb 13.3 (12.9-16.9) g/dL Hct 41.7 (37.5-50.1) % Plt Count 250 (140-400) K/mcL Neutrophils # 5.4 (1.6-8.9) K/mcL BMP 12/15/16 00:41 Sodium 140 Potassium 4.2 Chloride 102 Carbon Dioxide 32 H BUN 18 Creatinine 1.42 H Glucose 116 H Calcium 8.6 Cardiac Enzymes 12/14/16 12/15/16 Range/Units 17:48 00:41 Troponin I 0.01 0.00 (0-0.03) ng/mL Urine 12/14/16 Range/Units 18:10 Urine Color Yellow (Yellow) Urine Clarity Clear (Clear) Urine pH 6.5 (5.0-8.0) pH Units Ur Specific Umpire 1.010 (1.010-1.025) Urine Protein Negative (Neg-Trace) mg/dL Urine Glucose (UA) Normal (Normal) mg/dL - ABG Interpretation ABG results: PT/INR, D-dimer PT 16.6 Seconds (9.4-12.1) H 12/15/16 00:41 Consult Discharge Plan - Plan Referrals: Krish-Edda Banda DO [Primary Care Provider] -
--- NOTE | 2016-12-15 15:31 | Cardiology Consult Note ---
Date of Encounter: 12/15/16 Time of Encounter: 14:01 Assessment and Plan (1) CHF exacerbation Current Visit: Yes Status: Acute Pt is in Diastolic Heart failure. Troponins negative 3, echo shows LVEF is normal right ventricular size and function, pacemaker leads were visualized in the right atrium and right ventricle. Mild TRICUSPID regurgitation can be seen and no evidence of pulmonary hypertension. Patient's signs of any A with elevation of creatinine of 1.381 day ago and 1.42 today. Recommend increasing patient's Lasix from 40 mg twice a day to 80 mg twice a day monitor strict I's and O's patient's weight daily and kidney function. Qualifiers: Congestive heart failure type: diastolic Qualified Code(s): I50.33 - Acute on chronic diastolic (congestive) heart failure Discussion w patient/family: The assessment and plan as outlined above was discussed with the patient and/or family members who expressed understanding and agreement. All questions were answered. Thank you for involving us in the care of your patient. Please call with any questions. History of Present Illness Consult date: 12/15/16 Requesting physician: Sruthi Cook Consult reason: CHF exacerbation Chief complaint: Shortness of breath and weakness History of present illness: Mr. Issa is a 66 year old male with past medical history for A. fib, CHF, COPD , CAD and CVA, etiology come HTN, PE, GERD, syncope and venous-stasis who presents with a CHF exacerbation and weakness x 1 week. Patient states he has been seen Dr. Flood of cardiology outpatient with a last visit stated he was very fluid overloaded and increased patient's Lasix from 80 mg twice a day to 80 mg 3 times a day for 3 days. Patient complains that he has been having severe shortness of breath and continue to worsen to the point where he was short of breath at rest and required to sit upright to breathe. Patient states he is usually on home O2 on 2 L in the evening but has recently increased his O2 usages to during the day and up to 3 L. This would lead to patient's current admission Patient states that 2 days ago he started having intermittent chest pain sharp in nature left upper chest wall area under his pacemaker with radiation to his back states it is tender to touch over and around the pacemaker. Patient states pain symptoms would last a few minutes different intensities sometimes 5 out of 10 intensity sometimes 7 out of 10 in intensity. Patient denies any pain currently. Past Med Surg Social Fam HX - Past Medical History Attestation: Yes The following information was validated with the patient. Source: patient Medical history: arthritis, atrial fibrillation, CHF, COPD, coronary artery disease, CVA, GERD, hyperlipidemia, hypertension, pulmonary embolus, syncope, venous stasis, other Psychiatric history: anxiety, depression - Past Surgical History Surgical History: herniorrhaphy, knee replacement, pacemaker/AICD, other ( cardiac ablation) - Social History Smoking Status: Former smoker (64 pack year history) Smokeless Tobacco Status: No Alcohol use: none Drug use: none - Family History Father Adopted: No Family Member Ethnicity: Non- Living Status: Age at : 43 Cause of : Cancer Hx Family Cardiac Disorders: No Hx Family Respiratory Disorders: No Hx Family Cancer: Yes Hx Family GI Disorders: No Hx Family Genitourinary Disorders: No Hx Family Endocrine Disorder: No Hx Family Musculoskeletal Disorders: No Hx Family Neuromuscular Disorders: No Hx Family Neurologic Disorders: No Hx Family HEENT Disorders: No Hx Family Autoimmune Disorders: No Hx Family Reproductive Disorders: No Hx Family Psychosocial Disorders: No Hx Family Medical Disorders: No Mother Adopted: No Family Member Ethnicity: Non- Twin of Family Member: Yes Living Status: Still Living Hx Family Cardiac Disorders: Yes Hx Family Respiratory Disorders: No Hx Family Cancer: Yes (father leukemia) Hx Family GI Disorders: No Hx Family Genitourinary Disorders: No Hx Family Endocrine Disorder: No Hx Family Musculoskeletal Disorders: No Hx Family Neuromuscular Disorders: No Hx Family Neurologic Disorders: No Hx Family HEENT Disorders: No Hx Family Autoimmune Disorders: Yes (arthritis) Hx Family Reproductive Disorders: No Hx Family Psychosocial Disorders: No Hx Family Medical Disorders: No Medications and Allergies Aspirin Enteric Coated [Aspirin EC] 81 mg PO DAILY #0 04/09/15 [History] Rivaroxaban [Xarelto] 20 mg PO DAILY #0 04/09/15 [History] Trazodone HCl [TraZODone] 150 mg PO HS 12/20/15 [History] Melatonin 9 mg PO HS 12/23/15 [History] Finasteride [Proscar] 5 mg PO DAILY 01/30/16 [History] Tamsulosin [Flomax] 0.4 mg PO DAILY 01/30/16 [History] Cholecalciferol (Vitamin D3) [Vitamin D3] 1,000 unit PO DAILY 03/12/16 [History] Albuterol Sulfate [Proair Hfa] 1 puff IH Q4H 12/14/16 [History] Atorvastatin [Lipitor] 40 mg PO HS 12/14/16 [History] Capsaicin [Arthritis Pain Relief] 1 appl TP HS PRN 12/14/16 [History] Duloxetine HCl [Cymbalta] 60 mg PO DAILY 12/14/16 [History] Fluticasone Propionate Nasal [Flonase] 1 spray NS BID 12/14/16 [History] Furosemide [Lasix] 80 mg PO BID 12/14/16 [History] Gabapentin [Neurontin] 400 mg PO BID 12/14/16 [History] Imiquimod [Zyclara] 1 appl TP HS 12/14/16 [History] LORazepam [Ativan] 0.5 mg PO HS 12/14/16 [History] Magnesium Carbonate/Al Hydrox [Gaviscon Es Tablet Chew] 2 tab PO BID PRN [History] Memantine [Namenda] 5 mg PO AD 12/14/16 [History] Metoprolol Succinate 25 mg PO DAILY 12/14/16 [History] Oxycodone HCl [Oxaydo] 10 mg PO BID PRN 12/14/16 [History] Pantoprazole Sodium [Protonix] 40 mg PO DAILY 12/14/16 [History] Polyethylene Glycol 3350 [MiraLAX Powder Bulk 17.9 Oz] 17 gm PO DAILY PRN [History] Potassium Chloride [Klor-Con Sprinkle] 20 meq PO QID 12/14/16 [History] Sennosides/Docusate Sodium [Senna-Docusate Sodium Tablet] 1 tab PO BID 12/14/16 [History] Spironolactone [Aldactone] 50 mg PO DAILY 12/14/16 [History] Tizanidine HCl [Zanaflex] 2 mg PO BID 12/14/16 [History] metOLazone [Zaroxolyn] 2.5 mg PO DAILY 12/14/16 [History] Allergies IVP DYE Allergy (Uncoded 12/23/15 21:12) Anaphylaxis All Systems Review: A 10-system review of systems was performed and is negative for pertinent findings except as documented above in the HPI. - Constitutional Constitutional: fatigue, weakness, no anorexia, no chills, no fever(s) - EENT Eyes: no blurred vision, no loss of vision Nose, mouth and throat: no dysphagia, no epistaxis, no odynophagia, no sinus pain, no sore throat, no throat swelling - Cardiovascular Cardiovascular: as per HPI, chest pain at rest, dyspnea on exertion, leg edema, orthopnea, no chest pain with exertion, no radiating jaw, neck or arm pain, no lightheadedness, no palpitations - Respiratory Respiratory: dyspnea, no cough, no hemoptysis, no wheezing - Gastrointestinal Gastrointestinal: abdominal pain, nausea, no coffee ground emesis, no constipation, no diarrhea, no hematemesis, no hematochezia, no melena - Genitourinary Genitourinary: dysuria, no hematuria - Musculoskeletal Musculoskeletal: no back pain - Neurological Neurological: no abnormal speech, no dizziness, no focal weakness, no loss of vision, no numbness, no syncope, no tingling - Psychiatric Psychiatric: no anxiety - Hematological/Lymphatic Hematologic/Lymphatic: no easy bleeding Physical Examination Vital Signs, Last 4 Hours Resp Pulse Ox 12/15/16 11:27 16 94 General: Conversant, No Apparent Distress HEENT: Atraumatic, Normocephaly, Mucus Membranes Moist Neck: No JVD, Normal carotid pulses Cardiac: Reg Rate and Rhythm, Normal S1 and S2, No Murmur Lungs: Normal Breath Sounds, No Wheeze, Rales, Rhonchi Neuro: Alert and responsive, No focal deficits noted Abdomen: Soft, Other (Left upper quadrant abdominal tenderness to palpation. Patient states is chronic) Skin: No rashes noted on visualized skin Musculoskeletal: Other (Chest wall tenderness over and around pacemaker) Extremities: No Clubbing, No Cyanosis, Normal Pulses, Other (2+ nonpitting edema to bilateral lower extremities) Results 12/15/16 00:41 12/15/16 00:41 Lab Results 12/14/16 12/14/16 12/15/16 17:48 17:48 00:41 WBC Hgb Hct Plt Count INR APTT 40.0 H Sodium Potassium Chloride Carbon Dioxide BUN Creatinine Glucose Calcium Troponin I 0.01 0.00 12/15/16 12/15/16 12/15/16 00:41 00:41 00:41 WBC 7.7 Hgb 13.3 Hct 41.7 Plt Count 250 INR 1.5 APTT 34.9 Sodium 140 Potassium 4.2 Chloride 102 Carbon Dioxide 32 H BUN 18 Creatinine 1.42 H Glucose 116 H Calcium 8.6 Troponin I - Imaging and Cardiology Chest Xray: report reviewed, image reviewed (Small left pleural effusion overlying costophrenic angle radiologist reads as chronic small left pleural effusion with left basilar scarring and atelectasis) Echo: report reviewed (LVEF 55% mild tricuspid regurgitation no evidence of pulmonary hypertension, normal right ventricular size and function, pacemaker leads visualize the right atrium and right ventricle) Consult Discharge Plan - Plan Referrals: Able-Edda Banda DO [Primary Care Provider] -
[2016-12-15] MEDS: *HR* Rivaroxaban 10 MG TABLET PO SCH (17:16)
[2016-12-15] MEDS: Furosemide 40 MG/4 ML VIAL IVP SCH (17:16)
[2016-12-15] MEDS: *HR* LORazepam 0.5 MG TABLET PO SCH (22:07)
[2016-12-15] MEDS: Melatonin 3 MG TABLET PO SCH (22:07)
[2016-12-15] MEDS: traZODone 50 MG TABLET PO SCH (22:08)
[2016-12-16 05:40] LABS: INR 1.9; Prothrombin Time 21.2 Seconds (9.4-12.1)
[2016-12-16 05:52] LABS: BUN/Creatinine Ratio 15 (6-26); Blood Urea Nitrogen 17 mg/dL (8-26); Calcium 8.8 mg/dL (8.6-10.8); Carbon Dioxide 31 mEq/L (19-29); Chloride 98 mEq/L (98-109); Glucose 109 mg/dL (70-99); Osmolality,Calculated 284 (280-300); Potassium 3.2 mEq/L (3.5-4.5); Sodium 136 mEq/L (136-145); eGFR For African Americans > 60 (> 60); eGFR For Non-African Americans > 60 (> 60)
[2016-12-16] MEDS: Metoprolol XL (24 HR) Succ 25 MG TAB.ER.24H PO SCH (10:17)
[2016-12-16] MEDS: tiZANidine 4 MG TABLET PO SCH ×2 (10:17→22:12)
[2016-12-16] MEDS: Aspirin Enteric Coated 81 MG Tablet PO SCH (10:18)
[2016-12-16] MEDS: Finasteride 5 MG TABLET PO SCH (10:18)
[2016-12-16] MEDS: Gabapentin 400 MG CAPSULE PO SCH ×2 (10:19→22:12)
[2016-12-16] MEDS: Sennosides/Docusate Sodium TABLET PO SCH ×2 (10:19→22:12)
[2016-12-16] MEDS: Furosemide 40 MG/4 ML VIAL IVP SCH ×2 (10:19→17:56)
[2016-12-16] MEDS: *HR* HYDROcodone/Acet 5/325 mg TABLET PO PRN ×2 (10:22→14:49)
[2016-12-16] MEDS: Fluticasone Propionate Nasal 50 MCG/SPRAY BOTTLE NS SCH ×2 (10:50→22:11)
--- NOTE | 2016-12-16 10:54 | Cardiology Progress Note ---
Date of Encounter: 12/16/16 Time of Encounter: 10:20 Assessment and Plan (1) CHF exacerbation Current Visit: Yes Status: Acute Patient's symptoms improved today. Patient shows a weight loss from 1287 kg to 123.9 kg. Respirations: Patient appears to have more ease of ventilation phase respirations. at 95% on 4 L O2 nasal cannula. Blood pressure improving currently 99/5 mmHg. Patient's potassium currently 3.2 hyperkalemia. Patient' s creatinine function improving currently 1.17. From 1.42. Plan: Continue medical management of diuresing. Treated for hypokalemia, started potassium supplementation 40 mEq by mouth 1. Continue to monitor strict I's and O's, fluid restrict, and antiembolic stockings. No further cardiology recommendations at this time. Signing off. Consult again if needed. Thank you for allowing us to take patient's care. Qualifiers: Congestive heart failure type: diastolic Qualified Code(s): I50.33 - Acute on chronic diastolic (congestive) heart failure Discussion w patient/family: The assessment and plan as outlined above was discussed with the patient and/or family members who expressed understanding and agreement. All questions were answered. Thank you for involving us in the care of your patient. Please call with any questions. Subjective Principal diagnosis: CHF exacerbation Interval history: Patient seen and examined at bedside this a.m. Patient's doing well and currently has no complaints. Patient states he is feeling improved from yesterday. Objective Vital Signs, Last 4 Hours Temp Pulse Resp BP Pulse Ox 12/16/16 07:53 97.8 F 62 14 99/65 95 General: Conversant, No Apparent Distress, Other (No respiratory aphasia) HEENT: Atraumatic, Normocephaly, Mucus Membranes Moist Neck: No JVD, Normal carotid pulses Cardiac: Reg Rate and Rhythm, Normal S1 and S2, No Murmur Lungs: Normal Breath Sounds, No Wheeze, Rales, Rhonchi Neuro: Alert and responsive, No focal deficits noted Abdomen: Soft, Non-Tender Skin: No rashes noted on visualized skin Musculoskeletal: No Chest Wall Tenderness Extremities: No Clubbing, No Cyanosis, Normal Pulses, Other (mild edema to lower extremities marginally pitting) Results 12/15/16 00:41 12/16/16 05:08 Lab Results 12/16/16 12/16/16 12/16/16 05:08 05:08 05:08 INR 1.9 Sodium 136 Potassium 3.2 L D Chloride 98 Carbon Dioxide 31 H BUN 17 Creatinine 1.17 Glucose 109 H Calcium 8.8 Magnesium 1.8 Consult Discharge Plan - Plan Referrals: Edda Rm DO [Primary Care Provider] -
[2016-12-16] MEDS: *HR* Rivaroxaban 10 MG TABLET PO SCH (17:56)
[2016-12-16] MEDS ORDERED: *HR* OxyCODONE Immed Rel 5 MG TABLET PO PRN ×2 (18:00→18:09)
--- NOTE | 2016-12-16 18:12 | Internal Med Progress Note ---
Date of Encounter: 12/16/16 Time of Encounter: 14:30 - Assessment and plan (1) Acute on chronic diastolic (congestive) heart failure Current Visit: Yes Status: Acute Assessment and plan: Patient appears fluid overloaded on examination although his lower extremity edema has improved as has his ascites. Shortness of breath also continues to improve. Will wean oxygen as he tolerates- weaned from 4L to 2L today. Echocardiogram revealing preserved ejection fraction of 55%. Acute on chronic diastolic heart failure, diuresing. 2 days prior to this presentation, patient has seen his embroidery operator outpatient who increased his by mouth furosemide from 160 mg per day to 240 mg divided into 3 doses. Patient stating his swelling and shortness of breath continued despite this increased dose. Renal functioning has remained stable and is normal today, will continue to trend as we diurese him. Continue fluid and sodium restricted diet. Cardiology has signed off. (2) Physical deconditioning Current Visit: No Status: Chronic Assessment and plan: OT and PT have recommended ECF placement. According to social work, patient has chosen the [facility] and will likely be transferred there on Monday or Monday. We will continue to diurese him over the weekend. 12/15/16 Acute on chronic. Patient stating he has 2 bad knees so he is unable to ambulate very well therefore he chooses not to ambulate. He is also requesting that his chronic pain medications be increased stating that he feels as if he is growing tolerant of his current dosing. We will leave this to the discretion of his primary care team. Patient stating he would just left the [facility] where he was inpatient therapy until 11/22/16. He states that he was inpatient at the [facility] all winter and is only been home couple weeks. Concern for acquired helplessness as the patient's chief complaint and main concern changes every time and a staff member comes in. He has a stress concern over a chronic wart on his hand, concern over increasing his pain medications, concern over getting different types of food, and several other issues. Concerned that the patient has become dependent upon others. OT and PT consultations are pending. 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 Currently on 2 L per nasal cannula, continuing to diurese. (7) Hypertension Current Visit: No Status: Chronic Assessment and plan: Patient had been borderline hypotensive since admission so his spironolactone was held, blood pressure normal today. Tended to trend and adjust medications as indicated. At home, he is on spironolactone 50 mg daily, metoprolol 25 mg daily, furosemide 80 mg twice a day. Qualifiers: Hypertension type: essential hypertension Qualified Code(s): I10 - Essential (primary) hypertension (8) Paroxysmal a-fib Current Visit: No Status: Chronic Assessment and plan: Rate controlled. Anticoagulated with Xarelto. (9) CAD (coronary atherosclerotic disease) Current Visit: No Status: Chronic Qualifiers: Coronary Disease-Associated Artery/Lesion type: unspecified vessel or lesion type [place] vs. transplanted heart: [place] heart Associated angina: without angina Qualified Code(s): I25.10 - Atherosclerotic heart disease of [place] coronary artery without angina pectoris (10) Depression with anxiety Current Visit: No Status: Chronic Assessment and plan: denies suicidal ideation. Mood and affect stable. (11) Dyspnea on exertion Current Visit: No Status: Acute Assessment and plan: acute on chronic. multifactorial. Improving with diuresing. (12) Acute kidney injury Current Visit: Yes Status: Resolved (13) Abnormal international normal ratio (INR) Current Visit: Yes Status: Resolved (14) DVT prophylaxis Current Visit: Yes Status: Acute Assessment and plan: on Xarelto (15) Hypokalemia Current Visit: Yes Status: Acute Assessment and plan: Secondary to increased furosemide dosage, we will replete and trend - Subjective Interval history: Patient seen and examined in concert with Hot Air Furnace Installer Repairer, his bedside nurse, and Cardiology. On examination, patient sitting upright in his chair. Patient stating that his shortness of breath has improved. He also states his swelling in his legs has improved. - Constitutional Vitals: Temp Pulse Resp BP Pulse Ox 97.4 F L 61 16 113/78 95 12/16/16 15:05 12/16/16 15:05 12/16/16 15:36 12/16/16 15:05 12/16/16 15:36 General appearance: Present: disheveled, A&O X 3, pleasant, no acute distress, obese, answers questions appropriately - Head Head exam: Present: atraumatic, normocephalic - Eye Eye exam: Present: PERRL, conjuntiva pink, sclera anicteric Pupils: Present: PERRL - Neck Neck exam general surgery: Present: supple, trachea midline. Absent: lymphadenopathy - Respiratory Respiratory exam: Present: decreased breath sounds. Absent: accessory muscle use, rales, respiratory distress, rhonchi, wheezes - Cardiovascular Cardiovascular exam: Present: RRR, +S1, +S2. Absent: diastolic murmur, gallop, rubs, systolic murmur - GI/Abdominal GI/Abdominal exam: Present: distended, normal bowel sounds, soft, no peritoneal signs. Absent: tenderness - Extremities Exam Extremities exam: Present: pedal edema (1+ bilaterally), warm, radial pulses palpable and symetrical. Absent: calf tenderness, cyanotic - Neurological Exam Neurological exam: Present: alert, CN II-XII intact, oriented X3, no focal deficits, strengths equal and symetr throughout. Absent: pronater drift, facial droop, speech deficit - Skin Skin exam: Present: dry, intact, normal color, warm Internal Medicine: Result - Labs CBC & Chem 7: 12/15/16 00:41 12/16/16 05:08 Labs: BMP 12/16/16 05:08 Sodium 136 Potassium 3.2 L D Chloride 98 Carbon Dioxide 31 H BUN 17 Creatinine 1.17 Glucose 109 H Calcium 8.8 - ABG Interpretation ABG results: PT/INR, D-dimer PT 21.2 Seconds (9.4-12.1) H 12/16/16 05:08 Consult Discharge Plan - Plan Referrals: Krish-Edda Banda DO [Primary Care Provider] -
[2016-12-16] MEDS: *HR* OxyCODONE Immed Rel 5 MG TABLET PO PRN ×2 (18:51→23:47)
[2016-12-16] MEDS: *HR* LORazepam 0.5 MG TABLET PO SCH (22:12)
[2016-12-16] MEDS: Melatonin 3 MG TABLET PO SCH (22:12)
[2016-12-16] MEDS: traZODone 50 MG TABLET PO SCH (22:13)
[2016-12-17 07:13] LABS: BUN/Creatinine Ratio 13 (6-26); Blood Urea Nitrogen 17 mg/dL (8-26); Calcium 8.9 mg/dL (8.6-10.8); Carbon Dioxide 33 mEq/L (19-29); Chloride 97 mEq/L (98-109); Glucose 134 mg/dL (70-99); Osmolality,Calculated 292 (280-300); Potassium 3.2 mEq/L (3.5-4.5); Sodium 139 mEq/L (136-145); eGFR For African Americans > 60 (> 60); eGFR For Non-African Americans 55 (> 60)
[2016-12-17] MEDS: Gabapentin 400 MG CAPSULE PO SCH ×2 (07:57→21:21)
[2016-12-17] MEDS: *HR* OxyCODONE Immed Rel 5 MG TABLET PO SCH ×2 (07:58→17:04)
[2016-12-17] MEDS: Finasteride 5 MG TABLET PO SCH (07:58)
[2016-12-17] MEDS: tiZANidine 4 MG TABLET PO SCH ×2 (07:59→21:22)
[2016-12-17] MEDS: Aspirin Enteric Coated 81 MG Tablet PO SCH (07:59)
[2016-12-17] MEDS: Sennosides/Docusate Sodium TABLET PO SCH ×2 (07:59→20:05)
[2016-12-17] MEDS: Furosemide 40 MG/4 ML VIAL IVP SCH ×2 (07:59→17:04)
[2016-12-17] MEDS: Fluticasone Propionate Nasal 50 MCG/SPRAY BOTTLE NS SCH ×2 (08:06→21:36)
[2016-12-17] MEDS: Metoprolol XL (24 HR) Succ 25 MG TAB.ER.24H PO SCH (09:54)
--- NOTE | 2016-12-17 16:07 | Internal Med Progress Note ---
Date of Encounter: 12/17/16 Time of Encounter: 10:00 - Assessment and plan (1) Acute on chronic diastolic (congestive) heart failure Current Visit: Yes Status: Acute Assessment and plan: Patient appears fluid overloaded on examination although his lower extremity edema continues to improve as well as his ascites. Shortness of breath also continues to improve. Now tolerating 2L per NC continuously. Echocardiogram revealing preserved ejection fraction of 55%. Acute on chronic diastolic heart failure, diuresing. 2 days prior to this presentation, patient has seen his robotic toy inventor outpatient who increased his by mouth furosemide from 160 mg per day to 240 mg divided into 3 doses. Patient stating his swelling and shortness of breath continued despite this increased dose. Renal functioning has remained stable with a very slight AG today- will scale back his pm dose of IV lasix and recheck in the am. Continue fluid and sodium restricted diet. Cardiology has signed off. Tentative plan is to send him to inpatient rehabilitation at the [facility] on Monday or Monday pending clinical outcomes (2) Physical deconditioning Current Visit: No Status: Chronic Assessment and plan: OT and PT have recommended ECF placement. [facility]. We will continue to diurese him over the weekend. 12/15/16 Acute on chronic. Patient stating he has 2 bad knees so he is unable to ambulate very well therefore he chooses not to ambulate. He is also requesting that his chronic pain medications be increased stating that he feels as if he is growing tolerant of his current dosing. We will leave this to the discretion of his primary care team. Patient stating he would just left the [facility] where he was inpatient therapy until 11/22/16. He states that he was inpatient at the [facility] all winter and is only been home couple weeks. Concern for acquired helplessness as the patient's chief complaint and main concern changes every time and a staff member comes in. He has a stress concern over a chronic wart on his hand, concern over increasing his pain medications, concern over getting different types of food, and several other issues. Concerned that the patient has become dependent upon others. OT and PT consultations are pending. 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 Currently on 2 L per nasal cannula, continuing to diurese. (7) Hypertension Current Visit: No Status: Chronic Assessment and plan: Patient had been borderline hypotensive since admission so his spironolactone was held and his blood pressures have remained normal. At home, he is on spironolactone 50 mg daily, metoprolol 25 mg daily, furosemide 80 mg twice a day. Qualifiers: Hypertension type: essential hypertension Qualified Code(s): I10 - Essential (primary) hypertension (8) Paroxysmal a-fib Current Visit: No Status: Chronic Assessment and plan: Rate controlled. Anticoagulated with Xarelto. (9) CAD (coronary atherosclerotic disease) Current Visit: No Status: Chronic Qualifiers: Coronary Disease-Associated Artery/Lesion type: unspecified vessel or lesion type [place] vs. transplanted heart: [place] heart Associated angina: without angina Qualified Code(s): I25.10 - Atherosclerotic heart disease of [place] coronary artery without angina pectoris (10) Depression with anxiety Current Visit: No Status: Chronic Assessment and plan: denies suicidal ideation. Mood and affect stable. (11) Dyspnea on exertion Current Visit: No Status: Acute Assessment and plan: acute on chronic. multifactorial. Improving with diuresing. (12) Acute kidney injury Current Visit: Yes Status: Acute Assessment and plan: Mild, stable, will continue to trend. (13) Abnormal international normal ratio (INR) Current Visit: Yes Status: Resolved (14) DVT prophylaxis Current Visit: Yes Status: Acute Assessment and plan: on Xarelto (15) Hypokalemia Current Visit: Yes Status: Acute Assessment and plan: Secondary to increased furosemide dosage, we will replete and trend - Subjective Interval history: Patient seen and examined. On examination, patient is sitting upright in bed. Patient stating he does not feel very well stating that he feels weak and tired. He states he is eating well and states he slept well last night. He also states his shortness of breath is improving and states that his pain is better controlled today. He also states his abdomen appears less distended today. - Constitutional Vitals: Temp Pulse Resp BP Pulse Ox 97.3 F L 71 16 156/77 97 12/17/16 15:49 12/17/16 15:49 12/17/16 15:49 12/17/16 15:49 12/17/16 15:49 General appearance: Present: disheveled, A&O X 3, pleasant, no acute distress, obese, answers questions appropriately - Head Head exam: Present: atraumatic, normocephalic - Eye Eye exam: Present: PERRL, conjuntiva pink, sclera anicteric Pupils: Present: PERRL - Neck Neck exam general surgery: Present: supple, trachea midline. Absent: lymphadenopathy - Respiratory Respiratory exam: Present: decreased breath sounds. Absent: accessory muscle use, rales, respiratory distress, rhonchi, wheezes - Cardiovascular Cardiovascular exam: Present: RRR, +S1, +S2. Absent: diastolic murmur, gallop, rubs, systolic murmur - GI/Abdominal GI/Abdominal exam: Present: distended, normal bowel sounds, soft, no peritoneal signs. Absent: tenderness - Extremities Exam Extremities exam: Present: pedal edema (1+ bilaterally), warm, radial pulses palpable and symetrical. Absent: calf tenderness, cyanotic - Neurological Exam Neurological exam: Present: alert, CN II-XII intact, oriented X3, no focal deficits, strengths equal and symetr throughout. Absent: pronater drift, facial droop, speech deficit - Skin Skin exam: Present: dry, intact, pallor, warm Internal Medicine: Result - Labs CBC & Chem 7: 12/15/16 00:41 12/17/16 06:18 Labs: BMP 12/17/16 06:18 Sodium 139 Potassium 3.2 L Chloride 97 L Carbon Dioxide 33 H BUN 17 Creatinine 1.30 H Glucose 134 H Calcium 8.9 - ABG Interpretation ABG results: PT/INR, D-dimer PT 21.2 Seconds (9.4-12.1) H 12/16/16 05:08 Consult Discharge Plan - Plan Referrals: Krish-Edda Banda DO [Primary Care Provider] -
[2016-12-17] MEDS: *HR* Rivaroxaban 10 MG TABLET PO SCH (17:04)
[2016-12-17] MEDS ORDERED: *HR* Promethazine 25 MG/ML VIAL IVP ONE (20:50)
[2016-12-17] MEDS: traZODone 50 MG TABLET PO SCH (21:20)
[2016-12-17] MEDS: Melatonin 3 MG TABLET PO SCH (21:25)
[2016-12-17] MEDS: *HR* OxyCODONE Immed Rel 5 MG TABLET PO PRN (21:33)
[2016-12-17] MEDS: *HR* LORazepam 0.5 MG TABLET PO SCH (21:35)
[2016-12-17] MEDS ORDERED: *HR* HYDROmorphone (PF) 1 MG/ML SYRINGE IVP ONE (22:48)
[2016-12-18 03:08] LABS: BUN/Creatinine Ratio 13 (6-26); Blood Urea Nitrogen 16 mg/dL (8-26); Calcium 9.2 mg/dL (8.6-10.8); Carbon Dioxide 32 mEq/L (19-29); Chloride 96 mEq/L (98-109); Glucose 122 mg/dL (70-99); Osmolality,Calculated 286 (280-300); Potassium 3.5 mEq/L (3.5-4.5); Sodium 137 mEq/L (136-145); eGFR For African Americans > 60 (> 60); eGFR For Non-African Americans 59 (> 60)
[2016-12-18] MEDS: *HR* OxyCODONE Immed Rel 5 MG TABLET PO SCH ×2 (05:14→17:05)
[2016-12-18] MEDS: Sennosides/Docusate Sodium TABLET PO SCH (08:12)
[2016-12-18] MEDS: Finasteride 5 MG TABLET PO SCH (08:12)
[2016-12-18] MEDS: Furosemide 40 MG/4 ML VIAL IVP SCH ×2 (08:12→17:04)
[2016-12-18] MEDS: Metoprolol XL (24 HR) Succ 25 MG TAB.ER.24H PO SCH (08:12)
[2016-12-18] MEDS: tiZANidine 4 MG TABLET PO SCH ×2 (08:13→20:45)
[2016-12-18] MEDS: Aspirin Enteric Coated 81 MG Tablet PO SCH (08:13)
[2016-12-18] MEDS: Gabapentin 400 MG CAPSULE PO SCH ×2 (08:14→20:45)
[2016-12-18] MEDS: Fluticasone Propionate Nasal 50 MCG/SPRAY BOTTLE NS SCH ×2 (08:14→20:47)
--- NOTE | 2016-12-18 11:35 | Internal Med Progress Note ---
Date of Encounter: 12/18/16 Time of Encounter: 11:35 - Assessment and plan (1) Chronic respiratory failure with hypoxia Current Visit: Yes Status: Chronic Assessment and plan: Patient stating he is on 2 L per nasal cannula at home at bedtime and as needed throughout the day. Currently on 2 L per nasal cannula, continuing to diurese. (2) Constipation Current Visit: Yes Status: Resolved Assessment and plan: Hold Senna, patient stated he is having loose stools, and doesnt want it anymore for now Qualifiers: Constipation type: unspecified constipation type Qualified Code(s): K59.00 - Constipation, unspecified (3) BPH (benign prostatic hyperplasia) Current Visit: Yes Status: Chronic Assessment and plan: Continue home meds Qualifiers: Prostatic enlargement morphology: unspecified morphology Lower urinary tract symptom presence: symptoms present Qualified Code(s): N40.1 - Benign prostatic hyperplasia with lower urinary tract symptoms (4) Physical deconditioning Current Visit: Yes Status: Chronic Assessment and plan: OT and PT have recommended ECF placement. [facility]. (5) Hypertension Current Visit: Yes Status: Chronic Assessment and plan: Controlled on current meds, continue to hold Spironolactone Qualifiers: Hypertension type: essential hypertension Qualified Code(s): I10 - Essential (primary) hypertension (6) Depression Current Visit: Yes Status: Chronic Assessment and plan: Continue home meds Qualifiers: Depression Type: major depressive disorder Major depression recurrence: recurrent Active/Remission status: in full remission Qualified Code(s): F33.42 - Major depressive disorder, recurrent, in full remission (7) CAD (coronary atherosclerotic disease) Current Visit: Yes Status: Chronic Assessment and plan: No chest pain Continue home meds Qualifiers: Coronary Disease-Associated Artery/Lesion type: unspecified vessel or lesion type [place] vs. transplanted heart: [place] heart Associated angina: without angina Qualified Code(s): I25.10 - Atherosclerotic heart disease of [place] coronary artery without angina pectoris (8) Depression with anxiety Current Visit: Yes Status: Chronic Assessment and plan: denies suicidal ideation. Mood and affect stable. (9) Acute kidney injury Current Visit: Yes Status: Acute Assessment and plan: Mild, improved with adjustment in dose of lasix Continue to monitor (10) Acute on chronic diastolic (congestive) heart failure Current Visit: Yes Status: Acute Assessment and plan: Patient admitted with fluid overload He continues to improve Weight documentation seems to be fluctuating, recommend to check standing weight daily Continue I/O monitoring Electrocardiogram revealing preserved ejection fraction of 55%. 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 Current Visit: Yes Status: Suspected - Subjective Interval history: 66 M on admission for CHF exacerbation he has a PMH of chronic respiratory failure on home O2, HTN, Sick sinus syndorme , Afib with PCM, CAD, Depression/Anxiety Patient complained of nausea and loose bowel movements - Constitutional Vitals: Temp Pulse Resp BP Pulse Ox 97.8 F 92 16 126/79 93 12/18/16 10:48 12/18/16 10:48 12/18/16 11:17 12/18/16 10:48 12/18/16 11:17 General appearance: Present: A&O X 3, pleasant, no acute distress, obese, answers questions appropriately - Head Head exam: Present: atraumatic, normocephalic - Eye Eye exam: Present: PERRL, conjuntiva pink, sclera anicteric Pupils: Present: PERRL - Neck Neck exam general surgery: Present: supple, trachea midline. Absent: lymphadenopathy - Respiratory Respiratory exam: Present: CTAB. Absent: accessory muscle use, rales, rhonchi, wheezes - Cardiovascular Cardiovascular exam: Present: RRR, +S1, +S2. Absent: diastolic murmur, gallop, rubs, systolic murmur - GI/Abdominal GI/Abdominal exam: Present: normal bowel sounds, soft, no peritoneal signs. Absent: distended, tenderness - Extremities Exam Extremities exam: Present: warm, radial pulses palpable and symetrical. Absent : calf tenderness, cyanotic, pedal edema - Neurological Exam Neurological exam: Present: alert, CN II-XII intact, oriented X3, no focal deficits. Absent: pronater drift, facial droop, speech deficit - Skin Skin exam: Present: dry, intact Internal Medicine: Result - Labs CBC & Chem 7: 12/15/16 00:41 12/18/16 02:10 Labs: BMP 12/18/16 02:10 Sodium 137 Potassium 3.5 Chloride 96 L Carbon Dioxide 32 H BUN 16 Creatinine 1.23 Glucose 122 H Calcium 9.2 - ABG Interpretation ABG results: PT/INR, D-dimer PT 21.2 Seconds (9.4-12.1) H 12/16/16 05:08 Consult Discharge Plan - Plan Referrals: Edda Rm DO [Primary Care Provider] -
[2016-12-18] MEDS: *HR* OxyCODONE Immed Rel 5 MG TABLET PO PRN (14:45)
[2016-12-18] MEDS ORDERED: Ondansetron 4 MG/2 ML VIAL IVP PRN (15:39)
[2016-12-18] MEDS: *HR* Rivaroxaban 10 MG TABLET PO SCH (17:04)
[2016-12-18] MEDS: traZODone 50 MG TABLET PO SCH (20:45)
[2016-12-18] MEDS: *HR* LORazepam 0.5 MG TABLET PO SCH (20:46)
[2016-12-18] MEDS: Melatonin 3 MG TABLET PO SCH (20:46)
[2016-12-19 04:56] LABS: BUN/Creatinine Ratio 15 (6-26); Blood Urea Nitrogen 17 mg/dL (8-26); Calcium 8.8 mg/dL (8.6-10.8); Carbon Dioxide 29 mEq/L (19-29); Chloride 97 mEq/L (98-109); Glucose 118 mg/dL (70-99); Osmolality,Calculated 285 (280-300); Potassium 3.8 mEq/L (3.5-4.5); Sodium 136 mEq/L (136-145); eGFR For African Americans > 60 (> 60); eGFR For Non-African Americans > 60 (> 60)
[2016-12-19] MEDS: *HR* OxyCODONE Immed Rel 5 MG TABLET PO SCH ×2 (05:31→17:43)
[2016-12-19] MEDS: Furosemide 40 MG/4 ML VIAL IVP SCH ×2 (08:45→15:52)
[2016-12-19] MEDS: Gabapentin 400 MG CAPSULE PO SCH ×2 (08:45→22:13)
[2016-12-19] MEDS: Finasteride 5 MG TABLET PO SCH (08:45)
[2016-12-19] MEDS: Aspirin Enteric Coated 81 MG Tablet PO SCH (08:45)
[2016-12-19] MEDS: Metoprolol XL (24 HR) Succ 25 MG TAB.ER.24H PO SCH (08:45)
[2016-12-19] MEDS: tiZANidine 4 MG TABLET PO SCH ×2 (08:46→22:14)
[2016-12-19] MEDS ORDERED: Furosemide 40 MG/4 ML VIAL IVP ONE (08:49)
[2016-12-19] MEDS: Fluticasone Propionate Nasal 50 MCG/SPRAY BOTTLE NS SCH ×2 (08:50→22:15)
[2016-12-19] MEDS: *HR* OxyCODONE Immed Rel 5 MG TABLET PO PRN ×2 (09:38→20:59)
--- NOTE | 2016-12-19 12:25 | Internal Med Progress Note ---
Date of Encounter: 12/19/16 Time of Encounter: 12:25 - Assessment and plan (1) Chronic respiratory failure with hypoxia Current Visit: Yes Status: Chronic Assessment and plan: Patient stating he is on 2 L per nasal cannula at home at bedtime and as needed throughout the day. Currently on 2 L per nasal cannula, continuing to diurese. (2) Constipation Current Visit: Yes Status: Resolved Assessment and plan: Resolved Qualifiers: Constipation type: unspecified constipation type Qualified Code(s): K59.00 - Constipation, unspecified (3) BPH (benign prostatic hyperplasia) Current Visit: Yes Status: Chronic Assessment and plan: Continue home meds Qualifiers: Prostatic enlargement morphology: unspecified morphology Lower urinary tract symptom presence: symptoms present Qualified Code(s): N40.1 - Benign prostatic hyperplasia with lower urinary tract symptoms (4) Physical deconditioning Current Visit: Yes Status: Chronic Assessment and plan: OT and PT have recommended ECF placement. [facility]. (5) Hypertension Current Visit: Yes Status: Chronic Assessment and plan: Controlled on current meds, continue to hold Spironolactone Qualifiers: Hypertension type: essential hypertension Qualified Code(s): I10 - Essential (primary) hypertension (6) Depression Current Visit: Yes Status: Chronic Assessment and plan: Continue home meds Qualifiers: Depression Type: major depressive disorder Major depression recurrence: recurrent Active/Remission status: in full remission Qualified Code(s): F33.42 - Major depressive disorder, recurrent, in full remission (7) CAD (coronary atherosclerotic disease) Current Visit: Yes Status: Chronic Assessment and plan: No chest pain Continue home meds Qualifiers: Coronary Disease-Associated Artery/Lesion type: unspecified vessel or lesion type [place] vs. transplanted heart: [place] heart Associated angina: without angina Qualified Code(s): I25.10 - Atherosclerotic heart disease of [place] coronary artery without angina pectoris (8) Depression with anxiety Current Visit: Yes Status: Chronic Assessment and plan: denies suicidal ideation. Mood and affect stable. (9) Acute kidney injury Current Visit: Yes Status: Resolved Assessment and plan: Mild,resolved with adjustment in dose of lasix Continue to monitor (10) Acute on chronic diastolic (congestive) heart failure Current Visit: Yes Status: Acute Assessment and plan: Patient admitted with fluid overload He continues to improve Weight loss stable Continue I/O monitoring Electrocardiogram revealing preserved ejection fraction of 55%. 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 Current Visit: Yes Status: Suspected - Subjective Interval history: 66 M on admission for CHF exacerbation he has a PMH of chronic respiratory failure on home O2, HTN, Sick sinus syndorme , Afib with PCM, CAD, Depression/Anxiety Patient has no new complains today he is clinically stable - Constitutional Vitals: Temp Pulse Resp BP Pulse Ox 99.6 F 91 16 111/76 93 12/19/16 11:02 12/19/16 11:02 12/19/16 11:13 12/19/16 11:02 12/19/16 11:13 General appearance: Present: A&O X 3, pleasant, no acute distress, obese, answers questions appropriately - Head Head exam: Present: atraumatic, normocephalic - Eye Eye exam: Present: PERRL, conjuntiva pink, sclera anicteric Pupils: Present: PERRL - Neck Neck exam general surgery: Present: supple, trachea midline. Absent: lymphadenopathy - Respiratory Respiratory exam: Present: CTAB. Absent: accessory muscle use, rales, rhonchi, wheezes - Cardiovascular Cardiovascular exam: Present: RRR, +S1, +S2. Absent: diastolic murmur, gallop, rubs, systolic murmur - GI/Abdominal GI/Abdominal exam: Present: normal bowel sounds, soft, no peritoneal signs. Absent: distended, tenderness - Extremities Exam Extremities exam: Present: warm, radial pulses palpable and symetrical. Absent : calf tenderness, cyanotic, pedal edema - Neurological Exam Neurological exam: Present: alert, CN II-XII intact, oriented X3, no focal deficits. Absent: pronater drift, facial droop, speech deficit - Skin Skin exam: Present: dry Internal Medicine: Result - Labs CBC & Chem 7: 12/15/16 00:41 12/19/16 03:54 Labs: BMP 12/19/16 03:54 Sodium 136 Potassium 3.8 Chloride 97 L Carbon Dioxide 29 BUN 17 Creatinine 1.10 Glucose 118 H Calcium 8.8 - ABG Interpretation ABG results: PT/INR, D-dimer PT 21.2 Seconds (9.4-12.1) H 12/16/16 05:08 Consult Discharge Plan - Plan Referrals: Krish-Edda Banda DO [Primary Care Provider] -
[2016-12-19] MEDS: *HR* Rivaroxaban 10 MG TABLET PO SCH (15:52)
[2016-12-19] MEDS: *HR* LORazepam 0.5 MG TABLET PO SCH (22:11)
[2016-12-19] MEDS: Melatonin 3 MG TABLET PO SCH (22:12)
[2016-12-19] MEDS: traZODone 50 MG TABLET PO SCH (22:14)
[2016-12-20] MEDS: *HR* OxyCODONE Immed Rel 5 MG TABLET PO SCH (06:29)
--- NOTE | 2016-12-20 07:48 | Discharge Summary ---
Date of Encounter: 12/20/16 Time of Encounter: 07:40 - Discharge Diagnosis (1) CHF exacerbation Priority: Primary Status: Acute Comments: Acute on chronic diastolic CHF exacerbation Qualifiers: Congestive heart failure type: diastolic Qualified Code(s): I50.33 - Acute on chronic diastolic (congestive) heart failure (2) Sick sinus syndrome Priority: Secondary Status: Chronic (3) Artificial pacemaker Priority: Secondary Status: Chronic (4) BPH (benign prostatic hyperplasia) Priority: Secondary Status: Chronic Qualifiers: Prostatic enlargement morphology: unspecified morphology Lower urinary tract symptom presence: symptoms present Qualified Code(s): N40.1 - Benign prostatic hyperplasia with lower urinary tract symptoms (5) Paroxysmal a-fib Priority: Secondary Status: Chronic (6) Depression with anxiety Priority: Secondary Status: Chronic (7) Acute kidney injury Priority: Secondary Status: Resolved - Discharge Medications Prescriptions: LORazepam [Ativan] 0.5 mg PO HS #20 tablet Oxycodone HCl [Oxaydo] 10 mg PO BID PRN #20 tablet.orl PRN Reason: Mild To Moderate Pain Home Medications: Aspirin Enteric Coated [Aspirin EC] 81 mg PO DAILY #0 04/09/15 [History] Rivaroxaban [Xarelto] 20 mg PO DAILY #0 04/09/15 [History] Trazodone HCl [TraZODone] 150 mg PO HS 12/20/15 [History] Melatonin 9 mg PO HS 12/23/15 [History] Finasteride [Proscar] 5 mg PO DAILY 01/30/16 [History] Tamsulosin [Flomax] 0.4 mg PO DAILY 01/30/16 [History] Cholecalciferol (Vitamin D3) [Vitamin D3] 1,000 unit PO DAILY 03/12/16 [History] Albuterol Sulfate [Proair Hfa] 1 puff IH Q4H 12/14/16 [History] Atorvastatin [Lipitor] 40 mg PO HS 12/14/16 [History] Capsaicin [Arthritis Pain Relief] 1 appl TP HS PRN 12/14/16 [History] Duloxetine HCl [Cymbalta] 60 mg PO DAILY 12/14/16 [History] Fluticasone Propionate Nasal [Flonase] 1 spray NS BID 12/14/16 [History] Furosemide [Lasix] 80 mg PO BID 12/14/16 [History] Gabapentin [Neurontin] 400 mg PO BID 12/14/16 [History] Imiquimod [Zyclara] 1 appl TP HS 12/14/16 [History] Magnesium Carbonate/Al Hydrox [Gaviscon Es Tablet Chew] 2 tab PO BID PRN [History] Memantine [Namenda] 5 mg PO AD 12/14/16 [History] Metoprolol Succinate 25 mg PO DAILY 12/14/16 [History] Pantoprazole Sodium [Protonix] 40 mg PO DAILY 12/14/16 [History] Polyethylene Glycol 3350 [MiraLAX Powder Bulk 17.9 Oz] 17 gm PO DAILY PRN [History] Sennosides/Docusate Sodium [Senna-Docusate Sodium Tablet] 1 tab PO BID 12/14/16 [History] Spironolactone [Aldactone] 50 mg PO DAILY 12/14/16 [History] Tizanidine HCl [Zanaflex] 2 mg PO BID 12/14/16 [History] LORazepam [Ativan] 0.5 mg PO HS #20 tablet 12/20/16 [Rx] Oxycodone HCl [Oxaydo] 10 mg PO BID PRN #20 tablet.orl 12/20/16 [Rx] Potassium Chloride [Klor-Con Sprinkle] 20 meq PO TID #0 12/20/16 [Rx] metOLazone [Zaroxolyn] 2.5 mg PO DAILY PRN #30 12/20/16 [Rx] Allergies/Adverse Reactions: Allergies IVP DYE Allergy (Uncoded 12/23/15 21:12) Anaphylaxis Date of admission: 12/15/16 16:50 Primary care physician: Edda Rutherford - Patient Status Disposition: Transfer SNF Condition: Fair Overall status at discharge: patient is progressing back to baseline - Discharge Instructions Follow Up With: Krish-Edda Banda DO [Primary Care Provider] - Additional Instructions: Follow-up with primary care physician within the next week. Follow-up with cardiology within the next 3 weeks. Continue oxygen at nights. Continue Lasix 80 mg twice a day, may use metolazone if volume overloaded. Decrease fluid intake. - Diet and Activity Activity: wear oxygen at night (2 L) Diet: low salt diet Hospital course: Mr. Issa is a 66 year old male with a past medical history of chronic kidney disease stage III, chronic respiratory failure using 2 L of oxygen at night hypertension, hyperlipidemia, history of CVA, diastolic congestive heart failure , COPD oxygen dependent, sick sinus syndrome status post pacemaker and AICD, paroxysmal atrial fibrillation on Xarelto, presented to the emergency department from the [place] urgent care with complaints of increased bilateral lower extremity edema, increased shortness of breath, and weakness. Patient reported that the symptoms have been increasing over the last couple of days. He reported increased lightheadedness with position change, palpitations occasionally, increased in weight by 2 pounds over the last 2 days. He reported occasional burning with urination and sweats on and off. He also reports chronic nausea, and chronic bilateral lower extremity numbness and tingling. He saw his store protection specialist Dr. Flood 2 days prior to admission who increased his Lasix from 80 by mouth twice a day to 80 by mouth 3 times a day, but did not help his increased swelling or shortness of breath. Evaluation in the emergency department included a chest x-ray which showed chronic small left pleural effusion with left basilar scarring and atelectasis. BNP was elevated to 194, which is the highest value for this patient, troponin was negative at 0.00. He had AK I with creatinine of 1.38. INR was elevated at 2.2, the patient's not on warfarin. Electrocardiogram revealed preserved ejection fraction of 55%. The patient's creatinine came back to his baseline. Currently he is on 80 mg of Lasix twice a day and will be discharged on metolazone as needed, he was recommended to decrease fluid intake. - Time Spent with Patient Total time spent providing and/or coordinating discharge services: Greater than 30 minutes (40 minutes) - Constitutional Vitals: Temp Pulse Resp BP Pulse Ox 98.4 F 70 15 117/77 94 12/20/16 06:53 12/20/16 06:53 12/20/16 06:53 12/20/16 06:53 12/20/16 06:53 General appearance: Present: A&O X 3, pleasant, no acute distress, obese, answers questions appropriately - Head Head exam: Present: atraumatic, normocephalic - Eye Eye exam: Present: PERRL, conjuntiva pink, sclera anicteric Pupils: Present: PERRL - Neck Neck exam general surgery: Present: supple, trachea midline. Absent: lymphadenopathy - Respiratory Respiratory exam: Present: decreased breath sounds (Bibasilar fine crackles), CTAB. Absent: accessory muscle use, rales, rhonchi, wheezes - Cardiovascular Cardiovascular exam: Present: RRR, +S1, +S2. Absent: diastolic murmur, gallop, rubs, systolic murmur - GI/Abdominal GI/Abdominal exam: Present: distended (Obese), normal bowel sounds, soft, no peritoneal signs. Absent: tenderness - Extremities Exam Extremities exam: Present: pedal edema (+1 pitting edema in both lower extremities), warm, radial pulses palpable and symetrical. Absent: calf tenderness, cyanotic - Neurological Exam Neurological exam: Present: CN II-XII intact, oriented X3, no focal deficits. Absent: pronater drift, facial droop, speech deficit - Skin Skin exam: Present: dry, intact
--- NOTE | 2016-12-20 07:55 | Physician Discharge Referral ---
ExtendedCare Referral Info Provider in Charge after Transfer: PCP Institutional Level of Care: Skilled - Diagnosis (1) CHF exacerbation Status: Acute (2) Sick sinus syndrome Status: Chronic (3) Artificial pacemaker Status: Chronic (4) BPH (benign prostatic hyperplasia) Status: Chronic (5) Paroxysmal a-fib Status: Chronic (6) Depression with anxiety Status: Chronic (7) Acute kidney injury Status: Resolved - Transfer Medications Prescriptions: LORazepam [Ativan] 0.5 mg PO HS #20 tablet Oxycodone HCl [Oxaydo] 10 mg PO BID PRN #20 tablet.orl PRN Reason: Mild To Moderate Pain Home Medications: Aspirin Enteric Coated [Aspirin EC] 81 mg PO DAILY #0 04/09/15 [History] Rivaroxaban [Xarelto] 20 mg PO DAILY #0 04/09/15 [History] Trazodone HCl [TraZODone] 150 mg PO HS 12/20/15 [History] Melatonin 9 mg PO HS 12/23/15 [History] Finasteride [Proscar] 5 mg PO DAILY 01/30/16 [History] Tamsulosin [Flomax] 0.4 mg PO DAILY 01/30/16 [History] Cholecalciferol (Vitamin D3) [Vitamin D3] 1,000 unit PO DAILY 03/12/16 [History] Albuterol Sulfate [Proair Hfa] 1 puff IH Q4H 12/14/16 [History] Atorvastatin [Lipitor] 40 mg PO HS 12/14/16 [History] Capsaicin [Arthritis Pain Relief] 1 appl TP HS PRN 12/14/16 [History] Duloxetine HCl [Cymbalta] 60 mg PO DAILY 12/14/16 [History] Fluticasone Propionate Nasal [Flonase] 1 spray NS BID 12/14/16 [History] Furosemide [Lasix] 80 mg PO BID 12/14/16 [History] Gabapentin [Neurontin] 400 mg PO BID 12/14/16 [History] Imiquimod [Zyclara] 1 appl TP HS 12/14/16 [History] Magnesium Carbonate/Al Hydrox [Gaviscon Es Tablet Chew] 2 tab PO BID PRN [History] Memantine [Namenda] 5 mg PO AD 12/14/16 [History] Metoprolol Succinate 25 mg PO DAILY 12/14/16 [History] Pantoprazole Sodium [Protonix] 40 mg PO DAILY 12/14/16 [History] Polyethylene Glycol 3350 [MiraLAX Powder Bulk 17.9 Oz] 17 gm PO DAILY PRN [History] Sennosides/Docusate Sodium [Senna-Docusate Sodium Tablet] 1 tab PO BID 12/14/16 [History] Spironolactone [Aldactone] 50 mg PO DAILY 12/14/16 [History] Tizanidine HCl [Zanaflex] 2 mg PO BID 12/14/16 [History] LORazepam [Ativan] 0.5 mg PO HS #20 tablet 12/20/16 [Rx] Oxycodone HCl [Oxaydo] 10 mg PO BID PRN #20 tablet.orl 12/20/16 [Rx] Potassium Chloride [Klor-Con Sprinkle] 20 meq PO TID #0 12/20/16 [Rx] metOLazone [Zaroxolyn] 2.5 mg PO DAILY PRN #30 12/20/16 [Rx] Allergies/Adverse Reactions: Allergies IVP DYE Allergy (Uncoded 12/23/15 21:12) Anaphylaxis - Respiratory Orders Oxygen / L per min (2 L at night) Smoking Cessation: Smoking cessation has been advised. For more information, call the [employer] Tobacco Quit Line at 0-008-YWTF-NOW. - Advance Directives Code Status: Full Code - Rehabiliation Orders Rehab Orders: Evaluation for Physical Therapy - Treatments List/Other: Follow-up with primary care physician within the next week. Follow-up with cardiology within the next 3 weeks. Continue oxygen at nights. Continue Lasix 80 mg twice a day, may use metolazone if volume overloaded. Decrease fluid intake. - Diet Orders No Added Salt (SERGIO) CERTIFICATION: I certify that the transfer of the above named patient to an Extended Care Facility is necessary for the continuing treatment of the diagnosis listed. The above information is true and accurate reflection of patient's current condition. Confidential - Redisclosure prohibited without a patient's written consent.
[2016-12-20] MEDS: Gabapentin 400 MG CAPSULE PO SCH (08:50)
[2016-12-20] MEDS: Aspirin Enteric Coated 81 MG Tablet PO SCH (08:50)
[2016-12-20] MEDS: tiZANidine 4 MG TABLET PO SCH (08:50)
[2016-12-20] MEDS: Finasteride 5 MG TABLET PO SCH (08:50)
[2016-12-20] MEDS: Metoprolol XL (24 HR) Succ 25 MG TAB.ER.24H PO SCH (08:50)
[2016-12-20] MEDS: Fluticasone Propionate Nasal 50 MCG/SPRAY BOTTLE NS SCH (08:51)
[2016-12-20] MEDS: *HR* OxyCODONE Immed Rel 5 MG TABLET PO PRN (08:57)
[2016-12-20] MEDS ORDERED: Furosemide 40 MG TABLET PO SCH (09:00)
[2016-12-20 11:00] VITALS: BP 105/72
== END 2016-12-20 15:25 | DRG 291 ==
LOC: EMEROO 11:11 → 3BNU 11:11
PROVIDERS: ADMIT Nurse Practitioner Family; ATTEND Nurse Practitioner Family

== ENCOUNTER 2017-02-13 13:45 | Inpatient (IN) ==
[2017-02-13] MEDS ORDERED: Ondansetron 4 MG/2 ML VIAL IVP ONE (14:12)
[2017-02-13] MEDS ORDERED: 0.9 % Sodium Chloride 1,000 ML IVC ONE (14:12)
--- NOTE | 2017-02-13 14:21 | Emergency Department Note ---
Disposition Clinical Impression: Right sided weakness Disposition: Admitted As Inpatient Condition: Fair Referrals: NONE,PCP [Non-Partnered Physician] - Time of Disposition: 15:48 General Adult HPI - General Chief complaint: ED Neuro Symptoms/Deficit Stated complaint: right side weakness Time Seen by Provider: 02/13/17 13:49 Source: EMS Limitations: no limitations Nursing Notes Reviewed: Yes Vital Signs Reviewed: Yes - History of Present Illness HPI Narrative: Patient is a 67-year-old male with past medical history of 2 strokes in the past with the most recent being in February 2016. He is also diagnosed with atrial fibrillation for which he takes Xeralto. The patient is presenting by squad with complaint of worsening right-sided weakness and overall tiredness. According to the patient's around 6 PM yesterday, 20 hours ago, the patient was acting very sleepy, having slurred speech, he had increasing right- sided weakness. At the time the patient declined coming to the emergency department because he states he would rather sleep. Today patient's had to help the patient get up to use a restroom because he was unable to walk on his own which normally he can. Pain Scale: 0 - Related Data Home Medications Medication Instructions Recorded Confirmed Aspirin Enteric Coated [Aspirin EC] 81 mg PO DAILY #0 04/09/15 12/14/16 Rivaroxaban [Xarelto] 20 mg PO DAILY #0 04/09/15 12/14/16 Trazodone HCl [TraZODone] 150 mg PO HS 12/20/15 12/14/16 Melatonin 9 mg PO HS 12/23/15 12/14/16 Finasteride [Proscar] 5 mg PO DAILY 01/30/16 12/14/16 Tamsulosin [Flomax] 0.4 mg PO DAILY 01/30/16 12/14/16 Cholecalciferol (Vitamin D3) 1,000 unit PO DAILY 03/12/16 12/14/16 [Vitamin D3] Albuterol Sulfate [Proair Hfa] 1 puff IH Q4H 12/14/16 12/14/16 Atorvastatin [Lipitor] 40 mg PO HS 12/14/16 12/14/16 Capsaicin [Arthritis Pain Relief] 1 appl TP HS PRN 12/14/16 12/14/16 Duloxetine HCl [Cymbalta] 60 mg PO DAILY 12/14/16 12/14/16 Fluticasone Propionate Nasal 1 spray NS BID 12/14/16 12/14/16 [Flonase] Furosemide [Lasix] 80 mg PO BID 12/14/16 12/14/16 Gabapentin [Neurontin] 400 mg PO BID 12/14/16 12/14/16 Imiquimod [Zyclara] 1 appl TP HS 12/14/16 12/14/16 Magnesium Carbonate/Al Hydrox 2 tab PO BID PRN 12/14/16 12/14/16 [Gaviscon Es Tablet Chew] Memantine [Namenda] 5 mg PO AD 12/14/16 12/14/16 Metoprolol Succinate 25 mg PO DAILY 12/14/16 12/14/16 Pantoprazole Sodium [Protonix] 40 mg PO DAILY 12/14/16 12/14/16 Polyethylene Glycol 3350 [MiraLAX 17 gm PO DAILY PRN 12/14/16 12/14/16 Powder Bulk 17.9 Oz] Sennosides/Docusate Sodium 1 tab PO BID 12/14/16 12/14/16 [Senna-Docusate Sodium Tablet] Spironolactone [Aldactone] 50 mg PO DAILY 12/14/16 12/14/16 Tizanidine HCl [Zanaflex] 2 mg PO BID 12/14/16 12/14/16 Previous Rx's Medication Instructions Recorded LORazepam [Ativan] 0.5 mg PO HS #20 tablet 12/20/16 Oxycodone HCl [Oxaydo] 10 mg PO BID PRN #20 tablet.orl 12/20/16 Potassium Chloride [Klor-Con 20 meq PO TID #0 12/20/16 Sprinkle] metOLazone [Zaroxolyn] 2.5 mg PO DAILY PRN #30 12/20/16 Allergies Allergy/AdvReac Type Severity Reaction Status Date / Time IVP DYE Allergy Anaphylaxis Uncoded 12/23/15 21:12 All systems ED: reviewed and negative except as stated. Constitutional: Denies: fever, chills Eyes: Reports: vision change (Diplopia) Cardiovascular: Denies: chest pain, palpitations, dyspnea on exertion, syncope Respiratory: Denies: cough, dyspnea, wheezes Gastrointestinal: Denies: abdominal pain, nausea, vomiting, diarrhea Genitourinary: Denies: urgency, dysuria Musculoskeletal: Denies: back pain, neck pain Integumentary: Denies: rash Neurological: Reports: headache, weakness, confusion, abnormal gait. Denies: numbness, paresthesias, vertigo Endocrine: Reports: fatigue Hematological/Lymphatic: Denies: easy bleeding, easy bruising Past Medical History - Past Medical History Medical history: Reports: arthritis, atrial fibrillation, CHF, COPD, coronary artery disease, CVA, GERD, hyperlipidemia, hypertension, pulmonary embolus, syncope, venous stasis, other Surgical history: Reports: herniorrhaphy, knee replacement, pacemaker/AICD, other (cardiac ablation) Psychiatric history: Reports: anxiety, depression - Social History Smoking Status: Former smoker Smokeless Tobacco Status: No Alcohol use: Reports: none Drug use: Reports: none Physical Exam - General Limitations: no limitations General appearance: alert, in no apparent distress - Head Head exam: atraumatic, normocephalic, normal inspection - Eye Eye exam: Present: normal appearance, PERRL, EOMI - ENT ENT exam: normal exam, normal oropharynx, mucous membranes moist - Neck Neck exam: Present: normal inspection, full ROM, trachea midline. Absent: tenderness - Chest Chest inspection: Present: normal inspection, symmetric chest wall rise - Respiratory Respiratory exam: Present: normal lung sounds bilaterally. Absent: respiratory distress - Cardiovascular Cardiovascular exam: Present: regular rate, normal rhythm, normal heart sounds - Abdominal Exam Abdominal exam: Present: soft, Non-Tender. Absent: tenderness - Extremities Exam Extremities exam: Present: full ROM, normal capillary refill. Absent: tenderness, pedal edema - Expanded Lower Extremity Exam Neurovascular/Tendon exam: Present: normal capillary refill, motor deficit. Absent: pulse deficit, sensory deficit, tendon deficit, extremity cold to touch Gait: not tested/not observed - Back Exam Back exam: Present: normal inspection, full ROM. Absent: tenderness - Neurological Exam Neurological exam: Present: alert, oriented X3, CN II-XII intact - Expanded Neurological Exam Patient oriented to: Present: person, place, time Speech: Present: fluid speech Cranial nerves: EOM function (II, III, IV, ): Normal, facial sensation (V): Normal, facial palsy (VII): Normal, gag reflex (IX): Normal, spinal accessory function (XI): Normal, tongue deviation (XII): Normal Cerebellar function: finger to nose: Normal, heel to [place]: Abnormal Right Motor strength - LUE: 5/5 Motor strength - RUE: 4/5 Motor strength - LLE: 5/5 Motor strength - RLE: 2/5 Upper motor neuron exam: pronator drift: Absent bilaterally Sensory exam upper extremity: light touch: Normal Sensory exam lower extremity: light touch: Normal DTR: bicep (L): 2+, bicep (R): 2+, patellar (L): 2+, patellar (R): 2+ Coma Scale Eye Opening: Spontaneous Coma Scale Motor Response: Obeys Commands Coma Scale Verbal Response: Oriented Coma Scale Total: 15 - Psychiatric Psychiatric exam: Present: normal affect, normal mood - Skin Skin exam: Present: warm, dry, intact, normal color - Other Other exam information: Patient has a NIH Stroke Scale Score of 5. These deficits are due to the patient having right-sided weakness. Course Course Narrative: Patient is a 67-year-old male with a past medical history of atrial fibrillation and 2 strokes with the most recent in February 2016. He presents today with complaint of right-sided weakness upper or lower extremity. [facility] which [facility] 0.0. His glucose was 110. Planning to work the patient up for possible CVA/TIA. Due to his mentioning the patient having some weakness, however, he is denying chest pain we will also do a cardiac workup including a chest x-ray troponin and an EKG. Also check baseline labs such as a CBC and basic chem panel on the patient. The plan will be to admit the patient for further evaluation and treatment. - Reevaluation(s) Reevaluation #1: I discussed with the patient family that his head CT is negative for any acute process. Discuss a plan to admit the patient for further workup and evaluation to be seen by either cardiology or neurology in house. The family agrees with this plan. I discussed that they would like to have the patient further evaluated for his neurological complaints at a neuro center such as [facility] in [facility] as well. I stated the something he can discuss with the hospitalist in-house. Time: 15:30 Reevaluation #2: I discussed the patient case with Dr. Packer, she agrees to admit the patient. I also ordered the patient oral potassium due to his hypokalemia of 3.1. Time: 15:46 Vital Signs Temperature 98.1 F 02/13/17 13:47 Pulse Rate 70 02/13/17 13:47 Respiratory Rate 18 02/13/17 13:47 Blood Pressure 111/85 02/13/17 13:47 O2 Sat by Pulse Oximetry 94 02/13/17 13:47 Temperature 98.1 F 02/13/17 13:47 Pulse Rate 70 02/13/17 13:47 Respiratory Rate 18 02/13/17 13:47 Blood Pressure 111/85 02/13/17 13:47 O2 Sat by Pulse Oximetry 94 02/13/17 13:47 Oxygen Delivery Oxygen Delivery Nasal Cannula Medical Decision Making - Lab Data Result diagrams: 02/13/17 15:01 02/13/17 15:01 Lab Results 02/13/17 02/13/17 02/13/17 Range/Units 15:01 15:01 15:01 WBC 7.4 (4.3-11.1) K/mcL RBC 5.08 (4.19-5.50) M/mcL Hgb 14.1 (12.9-16.9) g/dL Hct 43.7 (37.5-50.1) % MCV 86.0 (83.0-100.0) fL MCH 27.8 L (28.0-33.3) pg MCHC 32.3 (31.6-35.5) g/dL RDW 13.2 (11.5-14.5) % Plt Count 230 (140-400) K/mcL MPV 9.7 (9.4-12.4) fL Immature Gran % 0.3 (0-4) % Seg Neutrophils % 70.1 % Lymphocytes % 12.7 % Monocytes % 11.9 % Eosinophils % 4.6 % Basophils % 0.4 % Neutrophils # 5.2 (1.6-8.9) K/mcL Lymphocytes # 0.9 (0.6-4.6) K/mcL Monocytes # 0.9 (0.0-1.3) K/mcL Eosinophils # 0.3 (0.0-0.6) K/mcL Basophils # 0.0 (0.0-0.2) K/mcL Immature Plt Fraction 4.0 (1.1-6.1) % Sodium 136 (136-145) mEq/L Potassium 3.1 L (3.5-4.5) mEq/L Chloride 93 L (98-109) mEq/L Carbon Dioxide 36 H (19-29) mEq/L BUN 29 H (8-26) mg/dL Creatinine 1.75 H (0.72-1.25) mg/dL Est GFR ( Amer) 47 L (> 60) Est GFR (Non-Af Amer) 39 L (> 60) BUN/Creatinine Ratio 17 (6-26) Glucose 116 H (70-99) mg/dL Calculated Osmolality 289 (280-300) Calcium 9.1 (8.6-10.8) mg/dL Troponin I 0.00 (0-0.03) ng/mL Urine Color (Yellow) Urine Clarity (Clear) Urine pH (5.0-8.0) pH Units Ur Specific [place] (1.010-1.025) Urine Protein (Neg-Trace) mg/dL Urine Glucose (UA) (Normal) mg/dL Urine Ketones (Negative) mg/dL Urine Blood (Negative) Urine Nitrite (Negative) Urine Bilirubin (Negative) Urine Urobilinogen (Normal) mg/dL Ur Leukocyte Esterase (Negative) Ur Culture Indicated? (NO) 02/13/17 Range/Units 15:14 WBC (4.3-11.1) K/mcL RBC (4.19-5.50) M/mcL Hgb (12.9-16.9) g/dL Hct (37.5-50.1) % MCV (83.0-100.0) fL MCH (28.0-33.3) pg MCHC (31.6-35.5) g/dL RDW (11.5-14.5) % Plt Count (140-400) K/mcL MPV (9.4-12.4) fL Immature Gran % (0-4) % Seg Neutrophils % % Lymphocytes % % Monocytes % % Eosinophils % % Basophils % % Neutrophils # (1.6-8.9) K/mcL Lymphocytes # (0.6-4.6) K/mcL Monocytes # (0.0-1.3) K/mcL Eosinophils # (0.0-0.6) K/mcL Basophils # (0.0-0.2) K/mcL Immature Plt Fraction (1.1-6.1) % Sodium (136-145) mEq/L Potassium (3.5-4.5) mEq/L Chloride (98-109) mEq/L Carbon Dioxide (19-29) mEq/L BUN (8-26) mg/dL Creatinine (0.72-1.25) mg/dL Est GFR ( Amer) (> 60) Est GFR (Non-Af Amer) (> 60) BUN/Creatinine Ratio (6-26) Glucose (70-99) mg/dL Calculated Osmolality (280-300) Calcium (8.6-10.8) mg/dL Troponin I (0-0.03) ng/mL Urine Color Yellow (Yellow) Urine Clarity Clear (Clear) Urine pH 7.0 (5.0-8.0) pH Units Ur Specific [place] 1.012 (1.010-1.025) Urine Protein Negative (Neg-Trace) mg/dL Urine Glucose (UA) Normal (Normal) mg/dL Urine Ketones Negative (Negative) mg/dL Urine Blood Negative (Negative) Urine Nitrite Negative (Negative) Urine Bilirubin Negative (Negative) Urine Urobilinogen Normal (Normal) mg/dL Ur Leukocyte Esterase Negative (Negative) Ur Culture Indicated? NO (NO) - Radiology Data Radiology results reviewed: Yes I reviewed the patient's radiology results. Head CT 02/13/17 14:00 IMPRESSION: No acute intracranial abnormality. D/ / Alexis Pham MD / Alexis Pham MD Interpreting Provider: Alexis Pham MD - EKG Data EKG #1 EKG attestation: Yes I reviewed and interpreted this EKG. EKG results narrative: I have interpreted this EKG performed at 13:58. EKG is sinus rhythm at a rate of 62 bpm. Normal axis. CA interval is 183, QRS is 95, QT is 416, QTc is 421 these intervals are within normal limits. He does have nonspecific T-wave abnormalities in leads II, III and aVF however these are unchanged when compared to his EKG done on 01/06/2017.
[2017-02-13 15:08] LABS: Basophils % 0.4 %; Eosinophils # 0.3 K/mcL (0.0-0.6); Eosinophils % 4.6 %; Hematocrit 43.7 % (37.5-50.1); Hemoglobin 14.1 g/dL (12.9-16.9); Immature Granulocytes % 0.3 % (0-4); Lymphocytes # 0.9 K/mcL (0.6-4.6); Lymphocytes % 12.7 %; Mean Corpuscular HGB Conc 32.3 g/dL (31.6-35.5); Mean Corpuscular Hemoglobin 27.8 pg (28.0-33.3); Mean Platelet Volume 9.7 fL (9.4-12.4); Monocytes # 0.9 K/mcL (0.0-1.3); Monocytes % 11.9 %; Neutrophils # 5.2 K/mcL (1.6-8.9); Platelet Count 230 K/mcL (140-400); Red Blood Count 5.08 M/mcL (4.19-5.50); Red Cell Distribution Width 13.2 % (11.5-14.5); Segmented Neutrophils % 70.1 %
[2017-02-13 15:18] LABS: Calcium 9.1 mg/dL (8.6-10.8); Potassium 3.1 mEq/L (3.5-4.5)
[2017-02-13 15:40] LABS: Bilirubin,Urine Negative (Negative); Blood,Urine Negative (Negative); Clarity,Urine Clear (Clear); Color,Urine Yellow (Yellow); Glucose,Urine (UA) Normal (Normal); Ketones,Urine Negative (Negative); Leukocyte Esterase,Urine Negative (Negative); Nitrite,Urine Negative (Negative); Protein,Urine Negative (Neg-Trace); Specific Gravity,Urine 1.012 (1.010-1.025); Urobilinogen,Urine Normal (Normal)
--- NOTE | 2017-02-13 16:16 | Electrocardiograph Report ---
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
--- NOTE | 2017-02-13 16:18 | Emergency Department Note ---
START Narrative - START START: I examined this patient and my medical decision-making was reviewed with the PUBLIC RELATIONS OFFICER/PA/Advanced Practice Nurse/Resident Physician. I agree with the documented findings, disposition and treatment plan as described except to the extent set forth below. ED attending: Patient's emergency medicine resident Dr. PÉREZ. Please see copy of this note for H&P evaluation and management and ED disposition. We both had independent [id number] time in contact with this patient. Briefly: A 77-year-old male [facility] with right- sided weakness prior stroke. History of A. fib. This has been going on since 6 PM yesterday. He is not a stroke alert and out of the window for TPA at this time. CT of the head shows no acute process labs essentially normal limits. Patient admitted for acute right-sided weakness overnight above prior deficits, TIA. Patient admitted in stable condition
[2017-02-13] MEDS ORDERED: *HR* LORazepam 0.5 MG TABLET PO PRN (19:07)
[2017-02-13] MEDS ORDERED: Albuterol 2.5 MG/3 ML NEBULIZER IH PRN (19:14)
[2017-02-13] MEDS ORDERED: Naloxone 0.4 MG/ML INJ IVP PRN ×2 (19:19→19:23)
[2017-02-13] MEDS ORDERED: *HR* Metoprolol 5 MG/5 ML VIAL IVP PRN (19:27)
--- NOTE | 2017-02-13 19:40 | Internal Med History&Physical ---
Date of Encounter: 02/13/17 Time of Encounter: 19:32 Assessment and Plan (1) Right sided weakness Current visit: Yes Status: Acute Ongoing right-sided weakness which began around 6 PM yesterday approximately 24 hours ago. Patient is not a candidate for antibiotics. Neuro consulTED Repeat CT in the morning Carotid ultrasounds bilaterally Echocardiogram NIH SS Dysphagia screening PTOT eval Mechanical DVT prophylaxis Home blood pressure meds for permissive hypertension Holds XARELTO for now consider restarting pending results of CT in the morning (2) Hypotension Current visit: Yes Status: Acute Patient is currently hypotensive. Admits to having taken his blood pressure medications today. There is concern for potential CVA. We will hold home blood pressure medications for now permissive hypertension. IV metoprolol 5 mg IV push every 6 hours when necessary for SBP greater than 180. Continue to trend over the next 48 hours and reconsider restarting home blood pressure meds. Qualifiers: Hypotension type: unspecified hypotension type Qualified Code(s): I95.9 - Hypotension, unspecified (3) Hypokalemia Current visit: Yes Status: Acute Acute hypokalemia noted on metabolic panel, potassium replaced in the ED. CMP in the morning continue to monitor. Restart patient's home dose of potassium. (4) DVT prophylaxis Current visit: Yes Status: Acute We will implement mechanical DVT prophylaxis as patient has history of A. fib, CVA. Presents today with CVA symptoms holding Zaroxolyn for now Internal Medicine - H&P: HPI Chief complaint: RUE AND RLE weakness, suspicious for CVA Admitted From: Home Plans for Post Hospital Care: Home History of present illness: Mr. Issa is a 67 year old male with a past medical history of CVA 2 with most recent being 02/15, CAD, HLD, A. fib, CHF, COPD, HTN, arthritis, PE, Syncope , anxiety, depression. Presents to [facility] today with right-sided weakness and fatigue. Patient reports unresolved Weakness fatigue and gait deficits beginning yesterday evening around 6 PM. Stating that he felt very confused and had difficulty moving his legs, said he felt like he was shuffling his feet and his take his blood pressure and noted it was in the 80s systolically which is unusual for him. His attended to take him to the emergency room however, he was too sleepy and decided he wanted to stay at home at that time. Patient admits headache, weakness, confusion, dizziness, slurred speech, sleepiness. At this time his only complaint is right sided weakness. Denies any chest pain, shortness of breath, syncope. Upon my assessment the patient appears to be a little groggy, however he is able to communicate and provide an accurate history. The only focal neuro deficits upon my examination right-sided weakness. Due to presenting symptoms being greater than 24 hours patient is no longer a candidate for thrombolytic therapy. Upon presentation to the ED and CT of the head was completed and found to be negative. He is being admitted to [facility] further workup and evaluation suspect CVA. Past Med Surg Social Fam HX - Past Medical History Medical history: arthritis, atrial fibrillation, CHF, COPD, coronary artery disease, CVA, GERD, hyperlipidemia, hypertension, pulmonary embolus, syncope, venous stasis, other Psychiatric history: anxiety, depression - Past Surgical History Surgical History: herniorrhaphy, knee replacement, pacemaker/AICD, other - Social History Smoking Status: Former smoker Smokeless Tobacco Status: No Alcohol use: none Drug use: none - Family History Father Adopted: No Family Member Ethnicity: Non- Living Status: Hx Family Cardiac Disorders: No Hx Family Respiratory Disorders: No Hx Family Cancer: Yes Hx Family GI Disorders: No Hx Family Endocrine Disorder: No Hx Family Neuromuscular Disorders: No Hx Family Neurologic Disorders: No Hx Family HEENT Disorders: No Hx Family Autoimmune Disorders: No Mother Adopted: No Family Member Ethnicity: Non- Twin of Family Member: Yes Living Status: Still Living Hx Family Cardiac Disorders: Yes Hx Family Respiratory Disorders: No Hx Family Cancer: Yes (father leukemia) Hx Family GI Disorders: No Hx Family Endocrine Disorder: No Hx Family Neuromuscular Disorders: No Hx Family Neurologic Disorders: No Hx Family HEENT Disorders: No Hx Family Autoimmune Disorders: Yes (arthritis) Internal Medicine - H&P: Meds Aspirin Enteric Coated [Aspirin EC] 81 mg PO DAILY #0 04/09/15 [History] Rivaroxaban [Xarelto] 20 mg PO DAILY #0 04/09/15 [History] Trazodone HCl [TraZODone] 150 mg PO HS 12/20/15 [History] Cholecalciferol (Vitamin D3) [Vitamin D3] 1,000 unit PO DAILY 03/12/16 [History] Albuterol Sulfate [Proair Hfa] 2 puff IH Q4H PRN 12/14/16 [History] Atorvastatin [Lipitor] 40 mg PO HS 12/14/16 [History] Furosemide [Lasix] 80 mg PO BID 12/14/16 [History] Gabapentin [Neurontin] 400 mg PO BID 12/14/16 [History] Magnesium Carbonate/Al Hydrox [Gaviscon Es Tablet Chew] 2 tab PO BID PRN [History] Metoprolol Succinate 25 mg PO DAILY 12/14/16 [History] Pantoprazole Sodium [Protonix] 40 mg PO DAILY 12/14/16 [History] Polyethylene Glycol 3350 [MiraLAX Powder Bulk 17.9 Oz] 17 gm PO DAILY PRN [History] Sennosides/Docusate Sodium [Senna-Docusate Sodium Tablet] 1 tab PO BID 12/14/16 [History] Spironolactone [Aldactone] 50 mg PO DAILY 12/14/16 [History] Tizanidine HCl [Zanaflex] 2 mg PO BID 12/14/16 [History] Fluticasone/Salmeterol [Advair 250-50 Diskus] 1 each IH BID 02/13/17 [History] LORazepam [Ativan] 0.5 mg PO HS PRN 02/13/17 [History] Memantine HCl 10 mg PO BID 02/13/17 [History] Oxycodone HCl 10 mg PO TID PRN 02/13/17 [History] Potassium Chloride [Klor-Con Sprinkle] 20 meq PO QID 02/13/17 [History] Tiotropium Br/Olodaterol HCl [Stiolto Respimat Inhal [place]] 2 puff IH DAILY [History] Triamcinolone Acet 0.1% CRM [Kenalog] 1 appl TP BID 02/13/17 [History] metOLazone [Zaroxolyn] 2.5 mg PO DAILY 02/13/17 [History] Allergies IVP DYE Allergy (Uncoded 12/23/15 21:12) Anaphylaxis All Systems PM: A 10-system review of systems was performed and is negative for pertinent findings except as documented above in the HPI. - Constitutional Constitutional: no chills, no fever(s), no night sweats - EENT Eyes: no change in vision, no discharge, no pain, no photophobia Ears: no ear discharge, no ear pain, no tinnitus Nose, mouth and throat: no dysphagia, no nasal discharge, no neck pain, no sore throat - Cardiovascular Cardiovascular ROS IM: no chest pain, no diaphoresis, no dyspnea, no lightheadedness, no palpitations, no syncope - Respiratory Respiratory: no cough, no dyspnea, no wheezing, no excessive phlegm production - Gastrointestinal Gastrointestinal: no abdominal pain, no diarrhea, no hematemesis, no hematochezia, no melena, no nausea, no vomiting - Musculoskeletal Musculoskeletal ROS IM: no numbness, no tingling - Integumentary Integumentary IM: no rash, no unusual bruising - Neurological Neurological ROS: abnormal gait (Reports that he was shoveling his feet), abnormal speech (Which began last night at 6 PM but is resolved at this time), dizziness (Which began last night at 6 PM but is resolved at this time), focal weakness (Ongoing focal weakness right upper and lower extremity), headache(s) ( Was again less than 6 PM but has improved throughout the day no longer reporting headache), no confusion, no convulsions, no loss of vision, no memory loss, no numbness, no tingling, no tremor(s) - Hematologic/Lymphatic Hematologic/Lymphatic: no easy bruising - Constitutional Vitals: Temp Pulse Resp BP Pulse Ox 97.5 F L 60 12 112/75 99 02/13/17 19:08 02/13/17 19:08 02/13/17 19:08 02/13/17 19:08 02/13/17 19:08 General appearance: Present: cooperative, A&O X 3, answers questions appropriately Exam: Patient is alert to verbal stimulus however he is oriented 3. Appears slightly drowsy but appropriate and able to answer questions. - Head Head exam: Present: atraumatic, normocephalic - Eye Eye exam: Present: EOMI, PERRL, conjuntiva pink, sclera anicteric. Absent: nystagmus Pupils: Present: PERRL - Neck Neck exam general surgery: Present: supple, trachea midline. Absent: lymphadenopathy - Respiratory Respiratory exam: Present: CTAB. Absent: accessory muscle use, rales, rhonchi, wheezes - Cardiovascular Cardiovascular exam: Present: RRR, +S1, +S2. Absent: diastolic murmur, gallop, rubs, systolic murmur - GI/Abdominal GI/Abdominal exam: Present: normal bowel sounds, soft, no peritoneal signs. Absent: distended, tenderness - Extremities Exam Extremities exam: Present: warm, radial pulses palpable and symmetrical. Absent : calf tenderness, cyanotic, pedal edema - Expanded Upper Extremities Exam Neurosensory exam: Absent: 2-point discrimination Vascular exam: Present: normal capillary refill - Expanded Lower Extremities Exam Neuro vascular tendon exam: Present: abnormal 2-point discrimination, motor deficit, no vascular compromise - Neurological Exam Neurological exam: Present: CN II-XII intact, oriented X3, no focal deficits. Absent: pronater drift, facial droop, speech deficit - Expanded Neurological Exam Cerebellar function: finger to nose: Abnormal Left, Abnormal Right, heel to mcfarland : Abnormal Right (Additional difficulty performing [id number]), Romberg: Normal Upper motor neuron: Babinski sign: Normal, Magdiel neglect: Normal, pronator drift : Abnormal Right, sensory extinction: Normal Sensory exam: LE 2 point discrimination: Abnormal Right, lower extremity light touch: Normal, lower extremity pin prick: Normal, lower extremity temperature: Normal, UE 2 point discrimination: Abnormal Right, upper extremity light touch: Normal, upper extremity pin prick: Normal, upper extremity temperature: Normal Neuro motor strength exam: LUE: 4, RUE: 3, LLE: 4, RLE: 2/1 Coma Scale Eye Opening: Spontaneous Coma Scale Motor Response: Obeys Commands Coma Scale Verbal Response: Oriented Coma Scale Total: 15 - Skin Skin exam: Present: dry, intact Internal Med - H&P Results - Labs CBC & Chem 7: 02/13/17 15:01 02/13/17 15:01 - Diagnostic Studies CT scan - head Additional comments: No intracranial abnormalities Chest x-ray Additional comments: no Acute cardiopulmonary disease
[2017-02-13] MEDS: *HR* OxyCODONE Immed Rel 5 MG TABLET PO PRN (20:46)
[2017-02-13] MEDS: tiZANidine 4 MG TABLET PO SCH (22:21)
[2017-02-13] MEDS: Sennosides/Docusate Sodium TABLET PO SCH (22:21)
[2017-02-13] MEDS: Furosemide 40 MG TABLET PO SCH (22:21)
[2017-02-13] MEDS: traZODone 50 MG TABLET PO SCH (23:33)
[2017-02-13] MEDS: Ipratropium/Albuterol Neb 3 ML IH SCH (23:57)
[2017-02-14] MEDS: Ipratropium/Albuterol Neb 3 ML IH SCH ×4 (04:57→22:43)
[2017-02-14 05:53] LABS: Basophils % 0.6 %; Eosinophils # 0.7 K/mcL (0.0-0.6); Hematocrit 44.9 % (37.5-50.1); Hemoglobin 14.5 g/dL (12.9-16.9); Immature Granulocytes % 0.3 % (0-4); Lymphocytes # 1.3 K/mcL (0.6-4.6); Lymphocytes % 21.6 %; Mean Corpuscular HGB Conc 32.3 g/dL (31.6-35.5); Mean Corpuscular Hemoglobin 28.1 pg (28.0-33.3); Mean Platelet Volume 10.2 fL (9.4-12.4); Monocytes # 0.9 K/mcL (0.0-1.3); Monocytes % 15.1 %; Neutrophils # 3.2 K/mcL (1.6-8.9); Platelet Count 223 K/mcL (140-400); Red Blood Count 5.16 M/mcL (4.19-5.50); Red Cell Distribution Width 13.4 % (11.5-14.5); Segmented Neutrophils % 51.4 %
[2017-02-14 06:04] LABS: Albumin 3.5 g/dL (3.5-5.0); Albumin/Globulin Ratio 0.9 (1.1-2.2); Bilirubin,Total 0.5 mg/dL (0.2-1.2); Calcium 9.2 mg/dL (8.6-10.8); Chol/HDL Ratio 5.9 (0-4.9); Globulin 3.9 g/dL (2.4-3.5); Magnesium 2.2 mg/dL (1.6-2.6); Phosphorous 4.3 mg/dL (2.3-4.7); Potassium 3.2 mEq/L (3.5-4.5); Total Protein 7.4 g/dL (6.0-8.3)
[2017-02-14] MEDS: Furosemide 40 MG TABLET PO SCH ×2 (07:58→17:19)
[2017-02-14] MEDS: metOLazone 2.5 MG TABLET PO SCH (07:58)
[2017-02-14] MEDS: Aspirin Enteric Coated 81 MG Tablet PO SCH (07:58)
[2017-02-14] MEDS: Spironolactone 25 MG TABLET PO SCH (07:58)
[2017-02-14] MEDS: Cholecalciferol (D-3) 1,000 UNIT TABLET PO SCH (07:58)
[2017-02-14] MEDS: *HR* OxyCODONE Immed Rel 5 MG TABLET PO PRN (07:58)
[2017-02-14] MEDS: Sennosides/Docusate Sodium TABLET PO SCH ×2 (07:59→21:02)
[2017-02-14] MEDS: tiZANidine 4 MG TABLET PO SCH ×2 (07:59→21:02)
[2017-02-14] MEDS ORDERED: Perflutren Lipid Microsphere 1.3 ML in 0.9 % Sodium Chloride 8.7 ML IVP ONE (10:07)
--- NOTE | 2017-02-14 14:33 | Internal Med Progress Note ---
Date of Encounter: 02/14/17 Time of Encounter: 12:35 - Assessment and plan (1) Right sided weakness Current Visit: Yes Status: Acute Assessment and plan: Patient reports 2 day history of right-sided weakness. He reports that he felt like his leg was heavy and he could not lift it. He is unable to lift his leg from the bed. There is obvious weakness on physical exam, left lower extremity greater than left upper extremity. There is no obvious right facial droop. His speech is clear. He does note a sensory deficit to right leg. Says he notices a difference in sensation in that touch feels ornamental iron erector. He denies numbness or tingling. Patient cannot have MRI due to pacemaker. Patient will have second CT scan this afternoon. Echocardiogram shows LVEF of 60% with mild LV DD, normal RV function with mild to moderate TR. Most likely there is no PFO but image quality was not optimal. Neurology consultation is pending. Patient missed PT and OT today due to being at echo. Continue telemetry Continue to monitor patient's labs, condition, vital signs Continue aspirin and statin. Fall precautions, bed alarm. Head CT 02/13/17 14:00 IMPRESSION: No acute intracranial abnormality. D/ / Alexis Pham MD / Alexis Pham MD Interpreting Provider: Alexis Pham MD (2) Acute kidney injury Current Visit: Yes Status: Acute Assessment and plan: Serum creatinine 1.71, GFR 40. Slight improvement from admission. We will continue IV fluids, avoid NSAIDs and nephrotoxins. (3) DVT prophylaxis Current Visit: Yes Status: Acute Assessment and plan: SCDs ordered. No pharmacologic 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 at this time due to possibility of CVA. (4) Hypokalemia Current Visit: Yes Status: Acute Assessment and plan: Potassium 3.2 today. Continue supplementation of KCl 20 mEq by mouth 4 times a day. Continue to monitor labs. (5) Hypotension Current Visit: Yes Status: Acute Assessment and plan: Patient did require IV fluid boluses to maintain a systolic blood pressure greater than 100. Qualifiers: Hypotension type: unspecified hypotension type Qualified Code(s): I95.9 - Hypotension, unspecified - Time Spent With Patient less than 15 minutes - Subjective Interval history: Patient was seen and assessed at about 12:35 PM. was in the room and assisted with history. Patient is drowsy, does awaken briefly to answer questions. He does seem to answer questions appropriately. His speech is clear he denies feeling slurred speech, headache, blurred vision. He says he just feels right-sided weakness. Onset 2 nights ago at approximately 8 PM while he was at home. He had been out shopping prior to onset of episode. His took his blood pressure, he was hypotensive at 84/78. She attempted to help him to bed he was shuffling his right leg, he says at that time his legs felt heavy and he could not lift it. He says he still feels that way and is unable to lift his right leg from the bed. There is obvious weakness to right lower extremity, however grasps are moderately strong and equal bilaterally to upper extremities. Patient also reports sensory deficit to right side. He says the sensation is much ornamental iron erector to right lower extremity he denies numbness or tingling. Patient denies nausea, vomiting, dizziness. Neurology consultation is pending. Patient missed PT and OT today due to being at echo. - Constitutional Vitals: Temp Pulse Resp BP Pulse Ox 97.5 F L 69 16 94/67 97 02/14/17 11:24 02/14/17 11:24 02/14/17 11:24 02/14/17 11:24 02/14/17 11:24 General appearance: Present: cooperative, A&O X 3, pleasant, no acute distress, answers questions appropriately - Head Head exam: Present: normal inspection - Eye Eye exam: Present: EOMI, normal appearance, PERRL, conjuntiva pink. Absent: nystagmus - ENT ENT exam: Present: mucous membranes moist, normal exam, normal external ear exam - Respiratory Respiratory exam: Present: CTAB. Absent: chest wall tenderness, decreased breath sounds, rales, respiratory distress, rhonchi, stridor, wheezes - Cardiovascular Cardiovascular exam: Present: RRR, +S1, +S2. Absent: clicks, diastolic murmur, gallop, systolic murmur - GI/Abdominal GI/Abdominal exam: Present: normal bowel sounds, soft. Absent: distended, hernia, hepatomegaly, tenderness - Extremities Exam Extremities exam: Present: normal inspection, warm, radial pulses palpable and symmetrical. Absent: full ROM, pedal edema, tenderness - Neurological Exam Neurological exam: Present: alert, motor sensory deficit, oriented X3. Absent: altered, strengths equal and symetr throughout, pronater drift, facial droop, speech deficit - Skin Skin exam: Present: dry, intact, normal color. Absent: rash, warm Internal Medicine: Result - Labs CBC & Chem 7: 02/14/17 05:11 02/14/17 05:11 Labs: Short CBC 02/14/17 Range/Units 05:11 WBC 6.2 (4.3-11.1) K/mcL Hgb 14.5 (12.9-16.9) g/dL Hct 44.9 (37.5-50.1) % Plt Count 223 (140-400) K/mcL Neutrophils # 3.2 (1.6-8.9) K/mcL BMP 02/14/17 05:11 Sodium 136 Potassium 3.2 L Chloride 91 L Carbon Dioxide 37 H BUN 29 H Creatinine 1.71 H Glucose 118 H Calcium 9.2 Cardiac Enzymes 02/13/17 02/14/17 Range/Units 20:58 05:11 Troponin I 0.00 0.01 (0-0.03) ng/mL Liver Function 02/14/17 Range/Units 05:11 Total Bilirubin 0.5 (0.2-1.2) mg/dL AST 20 (5-34) Units/L ALT 27 (0-55) Units/L Alkaline Phosphatase 135 H (38-126) Units/L Albumin 3.5 (3.5-5.0) g/dL Consult Discharge Plan - Plan
[2017-02-14] MEDS ORDERED: *HR* Dextrose 50 % in Water (Syg) 50 ML SYRINGE IVP PRN (14:45)
[2017-02-14] MEDS ORDERED: Dextrose Gel 15 GM PO PRN ×2 (14:45)
[2017-02-14] MEDS ORDERED: D5% in Water 1,000 ML IVC PRN (14:45)
[2017-02-14] MEDS: Insulin LISPRO 300 UNITS/3 ML VIAL SQ SCH ×2 (16:27→21:03)
[2017-02-14] MEDS ORDERED: Acetaminophen 325 MG TABLET PO PRN ×2 (16:29→16:49)
--- NOTE | 2017-02-14 17:53 | Carotid Imaging Report ---
Carotid Duplex Patient Name:Dakota Issa Order Number:[id number] Procedure Date:02/14/2017 Date:1950Age:67 yrs Gender:Male Location:[facility] Room #: 3B38 Library Science Professor:Adriana Moon Referring MD:Krishna Rivera CNP floor installer:[facility] MD:Johnny Laura MD Risk Factors Yes/No Hypertension Yes Hypercholesterolemia Yes Smoker Previous Yes Hx of CVA Yes Impressions: The bilateral carotid arteries are normal throughout. Recommendations: After imaging the patient returned to their room. Findings Carotid Duplex: Right: The right proximal common carotid artery has a PSV of 72 cm/s and a EDV of 24 cm/s. The right mid common carotid artery has a PSV of 63 cm/s and a EDV of 17 cm/s. The right distal common carotid artery has a PSV of 58 cm/s and a EDV of 19 cm/s. The right bifurcation has a PSV of 58 cm/s and a EDV of 16 cm/s. The right proximal internal carotid artery has a PSV of 84 cm/s and a EDV of 17 cm/s. The right mid internal carotid artery has a PSV of 57 cm/s and a EDV of 21 cm/s. The right distal internal carotid artery has a PSV of 78 cm/s and a EDV of 32 cm/s. The right eca has a PSV of 72 cm/s and a EDV of 14 cm/s. The right vertebral artery has a PSV of 52 cm/s and a EDV of 16 cm/s. Left: The left proximal common carotid artery has a PSV of 106 cm/s and a EDV of 30 cm/s. The left mid common carotid artery has a PSV of 61 cm/s and a EDV of 22 cm/s. The left distal common carotid artery has a PSV of 63 cm/s and a EDV of 20 cm/s. The left bifurcation has a PSV of 53 cm/s and a EDV of 16 cm/s. The left proximal internal carotid artery has a PSV of 94 cm/s and a EDV of 39 cm/s. The left mid internal carotid artery has a PSV of 95 cm/s and a EDV of 40 cm/s. The left distal internal carotid artery has a PSV of 84 cm/s and a EDV of 32 cm/s. The left eca has a PSV of 88 cm/s and a EDV of 19 cm/s. The left vertebral artery has a PSV of 46 cm/s and a EDV of 16 cm/s. Carotid Results Right PSV EDV Assessment Proximal CCA 72 24 Normal Mid CCA 63 17 Normal Distal CCA 58 19 Normal Bifurcation 58 16 Normal Proximal ICA 84 17 Normal Mid ICA 57 21 Normal Distal ICA 78 32 Normal ECA 72 14 Normal Vertebral Artery 52 16 Normal Left PSV EDV Assessment Proximal CCA 106 30 Normal Mid CCA 61 22 Normal Distal CCA 63 20 Normal Bifurcation 53 16 Normal Proximal ICA 94 39 Normal Mid ICA 95 40 Normal Distal ICA 84 32 Normal ECA 88 19 Normal Vertebral Artery 46 16 Normal Ratio's Right ICA/CCA Ratio: 1.30 ICA/CCA Values: 84/63 Left ICA/CCA Ratio: 1.60 ICA/CCA Values: 95/61 Updated by Johnny Laura MD on 02/14/2017 5:49:24 PM electronically signed on 02/14/2017 5:49:47 PM with status of Final
--- NOTE | 2017-02-14 18:15 | Neurology - Consult Note ---
Date of Encounter: 02/14/17 Time of Encounter: 18:03 Assessment and Plan (1) Weakness Current Visit: No Status: Acute I am highly suspicious that we are dealing with conversion disorder. There have been multiple stroke admissions, however no evidence of stroke is identified on CT, or the MRI from 12/31/15. It also isnt likely that a peripheral nerve disorder would present in this fashion. Consider psychiatry evaluation. PT may also be helpful. History of Present Illness HPI: Mr. Issa is a 67 year old male seen for neurologic consultation due to strokelike sx. This is the most recent of many admissions consisting of vague sx of weakness, leg pain, and dizziness. He is reported to have had multiple strokes in the past and has a hx of a-fib. I saw him when he was last admitted here due to sililar sx of leg pain. I commented in my report that his exam was unreliable as well as the presentation. He professes that his admitting sx were weakness of the RUE and RLE, however he does use the RUE and RLE. I have reviewed the most recent MRI of the brain which was on 12/31/15 and showed no evidence of cerebral infarct. None of his CT scans done here have showed evidence of an old or new infarct. Currently he c/o weakness of the RUE and pain and weakness of the both legs. He was transferred to another facility with his prior admission because I felt he needed a CT myelogram and IR was not willing to do it because the was on Xarelto. Past Med Surg Social Fam HX - Past Medical History Medical history: arthritis, atrial fibrillation, CHF, COPD, coronary artery disease, CVA, GERD, hyperlipidemia, hypertension, pulmonary embolus, syncope, venous stasis, other Psychiatric history: anxiety, depression - Past Surgical History Surgical History: herniorrhaphy, knee replacement, pacemaker/AICD, other - Social History Smoking Status: Former smoker Smokeless Tobacco Status: No Alcohol use: none Drug use: none - Family History Father Adopted: No Family Member Ethnicity: Non- Living Status: Hx Family Cardiac Disorders: No Hx Family Respiratory Disorders: No Hx Family Cancer: Yes Hx Family GI Disorders: No Hx Family Endocrine Disorder: No Hx Family Neuromuscular Disorders: No Hx Family Neurologic Disorders: No Hx Family HEENT Disorders: No Hx Family Autoimmune Disorders: No Mother Adopted: No Family Member Ethnicity: Non- Twin of Family Member: Yes Living Status: Still Living Hx Family Cardiac Disorders: Yes Hx Family Respiratory Disorders: No Hx Family Cancer: Yes (father leukemia) Hx Family GI Disorders: No Hx Family Endocrine Disorder: No Hx Family Neuromuscular Disorders: No Hx Family Neurologic Disorders: No Hx Family HEENT Disorders: No Hx Family Autoimmune Disorders: Yes (arthritis) Medications and Allergies Aspirin Enteric Coated [Aspirin EC] 81 mg PO DAILY #0 04/09/15 [History] Rivaroxaban [Xarelto] 20 mg PO DAILY #0 04/09/15 [History] Trazodone HCl [TraZODone] 150 mg PO HS 12/20/15 [History] Cholecalciferol (Vitamin D3) [Vitamin D3] 1,000 unit PO DAILY 03/12/16 [History] Albuterol Sulfate [Proair Hfa] 2 puff IH Q4H PRN 12/14/16 [History] Atorvastatin [Lipitor] 40 mg PO HS 12/14/16 [History] Furosemide [Lasix] 80 mg PO BID 12/14/16 [History] Gabapentin [Neurontin] 400 mg PO BID 12/14/16 [History] Magnesium Carbonate/Al Hydrox [Gaviscon Es Tablet Chew] 2 tab PO BID PRN [History] Metoprolol Succinate 25 mg PO DAILY 12/14/16 [History] Pantoprazole Sodium [Protonix] 40 mg PO DAILY 12/14/16 [History] Polyethylene Glycol 3350 [MiraLAX Powder Bulk 17.9 Oz] 17 gm PO DAILY PRN [History] Sennosides/Docusate Sodium [Senna-Docusate Sodium Tablet] 1 tab PO BID 12/14/16 [History] Spironolactone [Aldactone] 50 mg PO DAILY 12/14/16 [History] Tizanidine HCl [Zanaflex] 2 mg PO BID 12/14/16 [History] Fluticasone/Salmeterol [Advair 250-50 Diskus] 1 each IH BID 02/13/17 [History] LORazepam [Ativan] 0.5 mg PO HS PRN 02/13/17 [History] Memantine HCl 10 mg PO BID 02/13/17 [History] Oxycodone HCl 10 mg PO TID PRN 02/13/17 [History] Potassium Chloride [Klor-Con Sprinkle] 20 meq PO QID 02/13/17 [History] Tiotropium Br/Olodaterol HCl [Stiolto Respimat Inhal [place]] 2 puff IH DAILY [History] Triamcinolone Acet 0.1% CRM [Kenalog] 1 appl TP BID 02/13/17 [History] metOLazone [Zaroxolyn] 2.5 mg PO DAILY 02/13/17 [History] DULoxetine [Cymbalta] 30 mg PO DAILY 02/14/17 [History] Tamsulosin [Flomax] 0.4 mg PO DAILY 02/14/17 [History] Allergies IVP DYE Allergy (Uncoded 12/23/15 21:12) Anaphylaxis All Systems: A 10-system review of systems was performed and is negative for pertinent findings except as documented above in the HPI. Review of Systems: 10 point ROS is consistent with the HPI and otherwise negative. Physical Examination - Vital Signs Vital Signs: Initial Vital Signs Temp Pulse Resp BP Pulse Ox 98.1 F 70 18 111/85 94 02/13/17 13:47 02/13/17 13:47 02/13/17 13:47 02/13/17 13:47 02/13/17 13:47 - Neurologic Sensorimotor examination: other (Patchy hypesthesia of both legs, pt does not give diret or specific answers.) Detailed motor examination: other (Giveway weakness of both arms right > left, nonphysiologic exam of the loer extremities. He is able tomove both legs, but has giveway weakness. I do notice normal movements of his legs with passive observation. There is some edema of the right leg.) Reflexes: Biceps: 1+, Triceps: 1+, Brachioradialis: 1+, Patella: 1+, Achilles: 0 Mental Status Examination: awake, alert, oriented to person, oriented to place, oriented to time Cranial nerve examination: PERRL, EOMI, visual regan intact, corneal reflexes brisk symmetrically, sensory to face intact, mastication intact, no facial asymmetry is present, no dysarthria, hearing is intact symmetrically, soft palate elevates bilaterally upon phonation, gag reflex intact, flexes SCM and trapezius muscles symmetrically with full power, tongue protrudes midline, no atrophy or facial fasiculations present Results - Laboratory Findings CBC and BMP: 02/14/17 05:11 02/14/17 05:11 Abnormal lab findings: Abnormal lab results Eosinophils # 0.7 K/mcL (0.0-0.6) H 02/14/17 05:11 Potassium 3.2 mEq/L (3.5-4.5) L 02/14/17 05:11 Chloride 91 mEq/L (98-109) L 02/14/17 05:11 Carbon Dioxide 37 mEq/L (19-29) H 02/14/17 05:11 BUN 29 mg/dL (8-26) H 02/14/17 05:11 Creatinine 1.71 mg/dL (0.72-1.25) H 02/14/17 05:11 Est GFR ( Amer) 49 (> 60) L 02/14/17 05:11 Est GFR (Non-Af Amer) 40 (> 60) L 02/14/17 05:11 Glucose 118 mg/dL (70-99) H 02/14/17 05:11 POC Glucose 103 (58-89) H 02/13/17 17:31 Alkaline Phosphatase 135 Units/L (38-126) H 02/14/17 05:11 Globulin 3.9 g/dL (2.4-3.5) H 02/14/17 05:11 Albumin/Globulin Ratio 0.9 (1.1-2.2) L 02/14/17 05:11 Triglycerides 187 mg/dL (< 150) H 02/14/17 05:11 VLDL Cholesterol, Calc 37 mg/dL (< 31) H 02/14/17 05:11 HDL Cholesterol 25 mg/dL (40-59) L 02/14/17 05:11 Cholesterol/HDL Ratio 5.9 (0-4.9) H 02/14/17 05:11 Consult Discharge Plan - Plan [facility]: [facility] [Primary Care Provider] -
[2017-02-15] MEDS: Ipratropium/Albuterol Neb 3 ML IH SCH ×4 (04:02→22:27)
[2017-02-15 07:12] LABS: Basophils % 0.5 %; Eosinophils # 0.6 K/mcL (0.0-0.6); Eosinophils % 7.2 %; Hematocrit 44.9 % (37.5-50.1); Hemoglobin 14.7 g/dL (12.9-16.9); Immature Granulocytes % 0.4 % (0-4); Lymphocytes % 12.6 %; Mean Corpuscular HGB Conc 32.7 g/dL (31.6-35.5); Mean Corpuscular Hemoglobin 27.8 pg (28.0-33.3); Mean Platelet Volume 10.3 fL (9.4-12.4); Monocytes # 0.9 K/mcL (0.0-1.3); Monocytes % 12.3 %; Neutrophils # 5.1 K/mcL (1.6-8.9); Platelet Count 234 K/mcL (140-400); Red Blood Count 5.28 M/mcL (4.19-5.50); Red Cell Distribution Width 13.1 % (11.5-14.5)
[2017-02-15 07:21] LABS: Calcium 9.5 mg/dL (8.6-10.8); Potassium 3.2 mEq/L (3.5-4.5)
[2017-02-15 08:11] LABS: Hemoglobin A1C 6.2 %
[2017-02-15] MEDS: Insulin LISPRO 300 UNITS/3 ML VIAL SQ SCH ×4 (08:32→21:04)
[2017-02-15] MEDS: Furosemide 40 MG TABLET PO SCH ×2 (09:34→17:43)
[2017-02-15] MEDS: Sennosides/Docusate Sodium TABLET PO SCH ×2 (09:35→20:52)
[2017-02-15] MEDS: tiZANidine 4 MG TABLET PO SCH ×2 (09:35→20:52)
[2017-02-15] MEDS: Aspirin Enteric Coated 81 MG Tablet PO SCH (09:35)
[2017-02-15] MEDS: Cholecalciferol (D-3) 1,000 UNIT TABLET PO SCH (09:35)
[2017-02-15] MEDS: metOLazone 2.5 MG TABLET PO SCH (09:35)
[2017-02-15] MEDS ORDERED: Ibuprofen 600 MG TABLET PO PRN (13:30)
[2017-02-15] MEDS ORDERED: *HR* OxyCODONE/APAP 5/325 TABLET PO ONE (13:54)
--- NOTE | 2017-02-15 14:15 | Internal Med Progress Note ---
Date of Encounter: 02/15/17 Time of Encounter: 09:05 - Assessment and plan (1) Right sided weakness Current Visit: Yes Status: Acute Assessment and plan: Today patient is able to bear weight on right lower extremity. He is able to perform physical therapy with both extremities. Both extremities are equal in strength. Physical therapy has recommended the patient go to a rehabilitation for therapy. Patient is agreeable. Social work is on board. (2) Acute kidney injury Current Visit: Yes Status: Acute Assessment and plan: Serum 1.61, GFR 43. Improving. Continue to Avoid Nephrotoxins and NSAIDs. Continue to Monitor Labs. (3) DVT prophylaxis Current Visit: Yes Status: Acute Assessment and plan: SCDs ordered. No pharmacologic 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 at this time due to possibility of CVA. (4) Hypokalemia Current Visit: Yes Status: Acute Assessment and plan: Potassium remains 3.2 today. Potassium chloride increased to 20 mg 4 times daily. We will continue to monitor labs. (5) Hypotension Current Visit: Yes Status: Acute Assessment and plan: Patient remains borderline hypotensive with systolic blood pressure barely above 100. His medications remain on hold. He was given one Percocet for all over body pain he says he normally has. We will continue to monitor and reevaluate medications when necessary Qualifiers: Hypotension type: unspecified hypotension type Qualified Code(s): I95.9 - Hypotension, unspecified - Time Spent With Patient less than 15 minutes - Subjective Interval history: Patient was seen and assessed at 9:05 AM. He was in the middle of physical therapy. He appeared to be doing well. Her home health physical therapist, he was able to bear weight on his right leg. His strength has returned his right leg. I discussed with him the recommendation they have for him to go to a rehabilitation facility, he is agreeable. I have been approached by the nurse multiple times today for patient having had toe pain. He has oxycodone ordered 3 times a day for home, his blood pressure is borderline hypotensive, and has been held. Tylenol had no effect, he was given 1 Percocet. We will continue to monitor for pain and reconcile medications as his blood pressure improves. - Constitutional Vitals: Temp Pulse Resp BP Pulse Ox 97.9 F 78 16 106/74 94 02/15/17 11:46 02/15/17 11:46 02/15/17 11:46 02/15/17 11:46 02/15/17 11:46 General appearance: Present: cooperative, A&O X 3, pleasant, no acute distress, answers questions appropriately - Head Head exam: Present: normal inspection - Eye Eye exam: Present: normal appearance, conjuntiva pink - ENT ENT exam: Present: mucous membranes moist, normal exam, normal external ear exam - Neck Neck exam general surgery: Present: normal inspection. Absent: lymphadenopathy , tenderness - Respiratory Respiratory exam: Present: chest wall tenderness, CTAB. Absent: decreased breath sounds, rales, respiratory distress, rhonchi, stridor, wheezes - Cardiovascular Cardiovascular exam: Present: RRR, +S1, +S2. Absent: clicks, diastolic murmur, gallop, systolic murmur - GI/Abdominal GI/Abdominal exam: Present: normal bowel sounds, soft. Absent: hernia, hepatomegaly, tenderness - Extremities Exam Extremities exam: Present: warm, radial pulses palpable and symmetrical. Absent : full ROM, joint swelling, pedal edema, tenderness - Neurological Exam Neurological exam: Present: alert, oriented X3, no focal deficits. Absent: facial droop, speech deficit - Skin Skin exam: Present: dry, intact, normal color, warm. Absent: rash, urticaria Internal Medicine: Result - Labs CBC & Chem 7: 02/15/17 06:32 02/15/17 06:32 Labs: Short CBC 02/15/17 Range/Units 06:32 WBC 7.6 (4.3-11.1) K/mcL Hgb 14.7 (12.9-16.9) g/dL Hct 44.9 (37.5-50.1) % Plt Count 234 (140-400) K/mcL Neutrophils # 5.1 (1.6-8.9) K/mcL BMP 02/15/17 06:32 Sodium 136 Potassium 3.2 L Chloride 88 L Carbon Dioxide 39 H BUN 33 H Creatinine 1.61 H Glucose 117 H Calcium 9.5 - Impressions Impressions Head CT 02/14/17 14:30 IMPRESSION: No acute intracranial abnormality. D/ / Dilshad Harrell MD / Dilshad Harrell MD Interpreting Provider: Dilshad Harrell MD Consult Discharge Plan - Plan [facility]errals: [facility] [Primary Care Provider] -
[2017-02-15] MEDS: Melatonin 3 MG TABLET PO PRN (23:56)
[2017-02-15] MEDS: traZODone 50 MG TABLET PO SCH (23:56)
[2017-02-16] MEDS: Ipratropium/Albuterol Neb 3 ML IH SCH ×4 (04:01→22:58)
[2017-02-16 04:35] LABS: Calcium 10.1 mg/dL (8.6-10.8); Potassium 2.9 mEq/L (3.5-4.5)
[2017-02-16] MEDS ORDERED: Potassium Chloride 20 MEQ, Lidocaine 1% 2 ML in D5% in Water 250 ML IVPB ONE (07:35)
[2017-02-16] MEDS ORDERED: 0.9 % Sodium Chloride 1,000 ML IVC SCH (07:45)
[2017-02-16] MEDS: Insulin LISPRO 300 UNITS/3 ML VIAL SQ SCH ×4 (08:05→20:43)
[2017-02-16] MEDS: Cholecalciferol (D-3) 1,000 UNIT TABLET PO SCH (08:41)
[2017-02-16] MEDS: Spironolactone 25 MG TABLET PO SCH (08:41)
[2017-02-16] MEDS: *HR* Rivaroxaban 10 MG TABLET PO SCH (08:41)
[2017-02-16] MEDS: metOLazone 2.5 MG TABLET PO SCH (08:41)
[2017-02-16] MEDS: Sennosides/Docusate Sodium TABLET PO SCH ×2 (08:41→20:53)
[2017-02-16] MEDS: Furosemide 40 MG TABLET PO SCH ×3 (08:42→17:06)
[2017-02-16] MEDS: tiZANidine 4 MG TABLET PO SCH ×2 (08:42→20:53)
[2017-02-16] MEDS: Aspirin Enteric Coated 81 MG Tablet PO SCH (08:42)
[2017-02-16] MEDS: *HR* OxyCODONE Immed Rel 5 MG TABLET PO SCH ×3 (08:42→20:54)
--- NOTE | 2017-02-16 10:18 | Internal Med Progress Note ---
Date of Encounter: 02/16/17 Time of Encounter: 08:10 - Assessment and plan (1) Right sided weakness Current Visit: Yes Status: Resolved Assessment and plan: Today patient is able to bear weight on right lower extremity. Both extremities are equal in strength. Physical therapy has recommended the patient go to a rehabilitation for therapy. Patient is agreeable. Social work is on board. Pt is being reviewed for placement at the [facility]. If no bed is available there, pt would like to go to [facility] in [place]. (2) Acute kidney injury Current Visit: Yes Status: Acute Assessment and plan: Serum 1.61, GFR 43. Unchanged from yesterday. Continue to Avoid Nephrotoxins and NSAIDs. Continue to Monitor Labs. I have decreased Lasix and given some fluid. Pt does not have any edema or cough. Will monitor closely. (3) Hypokalemia Current Visit: Yes Status: Acute Assessment and plan: Potassium 2.9 today. Potassium chloride increased to 20 mg 4 times daily as well as K Osvaldo 20meq. Lasix has been decreased. We will continue to monitor labs. (4) Hypotension Current Visit: Yes Status: Acute Assessment and plan: Pt has remained hypotensive until overnight. Medications have been restarted at pt's request. We will need to watch his BP closely and adjust medications as needed. Qualifiers: Hypotension type: unspecified hypotension type Qualified Code(s): I95.9 - Hypotension, unspecified (5) DVT prophylaxis Current Visit: Yes Status: Acute Assessment and plan: SCDs ordered pt is up to chair TID for meals Pt is on Xarelto. - Time Spent With Patient less than 15 minutes - Subjective Interval history: Pt was seen and assessed at 0810. Pt states that he did sleep some better last night. He denies pain and states that he is feeling some better. He remains agreeable to transfer to rehab/SNF for therapy.We discussed him getting up to chair for meals, he is agreeable. Weakness has, for the most part, resolved and has been replaced by pain to marcella knees, which is normal for him. He is alert and awake and pleasant. - Constitutional Vitals: Temp Pulse Resp BP Pulse Ox 98.1 F 86 16 113/85 92 02/16/17 07:55 02/16/17 07:55 02/16/17 07:55 02/16/17 07:55 02/16/17 07:55 General appearance: Present: cooperative, A&O X 3, pleasant, no acute distress, answers questions appropriately - Head Head exam: Present: normal inspection - Eye Eye exam: Present: normal appearance, conjuntiva pink - ENT ENT exam: Present: mucous membranes moist, normal exam, normal external ear exam - Neck Neck exam general surgery: Present: normal inspection. Absent: lymphadenopathy , tenderness - Respiratory Respiratory exam: Present: CTAB. Absent: decreased breath sounds, rales, respiratory distress, rhonchi, stridor, wheezes - Cardiovascular Cardiovascular exam: Present: RRR, +S1, +S2. Absent: clicks, distant heart sounds, gallop, systolic murmur - GI/Abdominal GI/Abdominal exam: Present: distended, normal bowel sounds, soft. Absent: hepatomegaly, tenderness - Extremities Exam Extremities exam: Present: normal capillary refill, normal inspection, pedal edema, warm, radial pulses palpable and symmetrical. Absent: full ROM, tenderness - Neurological Exam Neurological exam: Present: alert, oriented X3, no focal deficits, strengths equal and symetr throughout. Absent: altered, facial droop, speech deficit - Skin Skin exam: Present: dry, intact, normal color, warm. Absent: rash, urticaria Internal Medicine: Result - Labs CBC & Chem 7: 02/15/17 06:32 02/16/17 03:52 Labs: [facility] 02/16/17 03:52 Sodium 136 Potassium 2.9 L Chloride 86 L Carbon Dioxide 37 H BUN 36 H Creatinine 1.61 H Glucose 138 H Calcium 10.1 Consult Discharge Plan - Plan [facility]errals: [facility] [Primary Care Provider] -
[2017-02-16] MEDS: 0.9 % Sodium Chloride 1,000 ML IVC SCH (10:45)
[2017-02-16] MEDS: Gabapentin 400 MG CAPSULE PO SCH ×2 (12:27→20:53)
--- NOTE | 2017-02-16 15:14 | Electrocardiograph Report ---
[place] [id number] Test Date: 2017-02-15 Pat Name: Dakota Issa Department: 113 Room: 3B Gender: M [place] Joiner: : 1950 Requested By: Sruthi Cook Order Number: [id number] Reading MD: Delfino Xavier MD Measurements Intervals [place] Rate: 73 P: 81 AR: 181 QRS: 35 QRSD: 90 T: 33 QT: 355 QTc: 381 Interpretive Statements SINUS RHYTHM Electronically Signed On 02-16-2017 15:13:01 EDT by Delfino Xavier MD
[2017-02-16] MEDS: traZODone 50 MG TABLET PO SCH (20:54)
[2017-02-16] MEDS: Melatonin 3 MG TABLET PO PRN (21:04)
[2017-02-17] MEDS: Ipratropium/Albuterol Neb 3 ML IH SCH ×3 (04:00→15:52)
[2017-02-17 04:26] LABS: Basophils # 0.1 K/mcL (0.0-0.2); Basophils % 0.8 %; Eosinophils # 0.6 K/mcL (0.0-0.6); Eosinophils % 8.9 %; Hematocrit 45.4 % (37.5-50.1); Hemoglobin 14.4 g/dL (12.9-16.9); Immature Granulocytes % 0.2 % (0-4); Lymphocytes # 1.6 K/mcL (0.6-4.6); Lymphocytes % 25.2 %; Mean Corpuscular HGB Conc 31.7 g/dL (31.6-35.5); Mean Corpuscular Hemoglobin 27.3 pg (28.0-33.3); Mean Platelet Volume 10.4 fL (9.4-12.4); Monocytes # 0.8 K/mcL (0.0-1.3); Neutrophils # 3.4 K/mcL (1.6-8.9); Platelet Count 207 K/mcL (140-400); Red Blood Count 5.28 M/mcL (4.19-5.50); Red Cell Distribution Width 13.2 % (11.5-14.5); Segmented Neutrophils % 51.9 %
[2017-02-17 04:46] LABS: BUN/Creatinine Ratio 21 (6-26); Blood Urea Nitrogen 30 mg/dL (8-26); Calcium 9.4 mg/dL (8.6-10.8); Carbon Dioxide 36 mEq/L (19-29); Chloride 88 mEq/L (98-109); Glucose 122 mg/dL (70-99); Osmolality,Calculated 285 (280-300); Potassium 3.1 mEq/L (3.5-4.5); Sodium 134 mEq/L (136-145); eGFR For African Americans > 60 (> 60); eGFR For Non-African Americans 51 (> 60)
[2017-02-17] MEDS: 0.9 % Sodium Chloride 1,000 ML IVC SCH (05:47)
[2017-02-17] MEDS: Insulin LISPRO 300 UNITS/3 ML VIAL SQ SCH ×3 (07:47→17:01)
[2017-02-17] MEDS: Aspirin Enteric Coated 81 MG Tablet PO SCH (08:27)
[2017-02-17] MEDS: *HR* Rivaroxaban 10 MG TABLET PO SCH (08:27)
[2017-02-17] MEDS: Gabapentin 400 MG CAPSULE PO SCH (08:28)
[2017-02-17] MEDS: Sennosides/Docusate Sodium TABLET PO SCH (08:28)
[2017-02-17] MEDS: tiZANidine 4 MG TABLET PO SCH (08:28)
[2017-02-17] MEDS: *HR* OxyCODONE Immed Rel 5 MG TABLET PO SCH ×2 (08:28→14:44)
[2017-02-17] MEDS: Cholecalciferol (D-3) 1,000 UNIT TABLET PO SCH (08:28)
[2017-02-17] MEDS: Furosemide 40 MG TABLET PO SCH ×2 (08:28→17:13)
[2017-02-17] MEDS: Spironolactone 25 MG TABLET PO SCH (08:29)
[2017-02-17] MEDS: metOLazone 2.5 MG TABLET PO SCH (08:29)
[2017-02-17 15:20] VITALS: BP 109/74
--- NOTE | 2017-02-17 17:27 | Discharge Summary ---
Date of Encounter: 02/17/17 Time of Encounter: 14:25 - Discharge Diagnosis (1) Right sided weakness Priority: Primary Status: Resolved (2) Acute kidney injury Priority: Secondary Status: Acute Comments: Sr Cr 1.40, GFR 51. Renal function continues to improve. Avoid nephrotoxins and NSAIDs. (3) Hypokalemia Priority: Secondary Status: Acute Comments: Continue supplementation on discharge. (4) Hypotension Priority: Secondary Status: Resolved Comments: Pt has been normotensive. Resume home medications. Qualifiers: Hypotension type: unspecified hypotension type Qualified Code(s): I95.9 - Hypotension, unspecified (5) DVT prophylaxis Priority: Secondary Status: Acute Comments: Pt is on Xarelto, continue ambulation,PT, and SCDs ordered. - Discharge Medications Prescriptions: LORazepam [Ativan] 0.5 mg PO HS PRN #2 PRN Reason: Anxiety Oxycodone HCl 10 mg PO TID PRN #3 PRN Reason: Pain Home Medications: Aspirin Enteric Coated [Aspirin EC] 81 mg PO DAILY #0 04/09/15 [History] Rivaroxaban [Xarelto] 20 mg PO DAILY #0 04/09/15 [History] Trazodone HCl [TraZODone] 150 mg PO HS 12/20/15 [History] Cholecalciferol (Vitamin D3) [Vitamin D3] 1,000 unit PO DAILY 03/12/16 [History] Albuterol Sulfate [Proair Hfa] 2 puff IH Q4H PRN 12/14/16 [History] Atorvastatin [Lipitor] 40 mg PO HS 12/14/16 [History] Furosemide [Lasix] 80 mg PO BID 12/14/16 [History] Gabapentin [Neurontin] 400 mg PO BID 12/14/16 [History] Magnesium Carbonate/Al Hydrox [Gaviscon Es Tablet Chew] 2 tab PO BID PRN [History] Metoprolol Succinate 25 mg PO DAILY 12/14/16 [History] Pantoprazole Sodium [Protonix] 40 mg PO DAILY 12/14/16 [History] Polyethylene Glycol 3350 [MiraLAX Powder Bulk 17.9 Oz] 17 gm PO DAILY PRN [History] Sennosides/Docusate Sodium [Senna-Docusate Sodium Tablet] 1 tab PO BID 12/14/16 [History] Spironolactone [Aldactone] 50 mg PO DAILY 12/14/16 [History] Tizanidine HCl [Zanaflex] 2 mg PO BID 12/14/16 [History] Fluticasone/Salmeterol [Advair 250-50 Diskus] 1 each IH BID 02/13/17 [History] Memantine HCl 10 mg PO BID 02/13/17 [History] Potassium Chloride [Klor-Con Sprinkle] 20 meq PO QID 02/13/17 [History] Tiotropium Br/Olodaterol HCl [Stiolto Respimat Inhal [place]] 2 puff IH DAILY [History] Triamcinolone Acet 0.1% CRM [Kenalog] 1 appl TP BID 02/13/17 [History] metOLazone [Zaroxolyn] 2.5 mg PO DAILY 02/13/17 [History] DULoxetine [Cymbalta] 30 mg PO DAILY 02/14/17 [History] Tamsulosin [Flomax] 0.4 mg PO DAILY 02/14/17 [History] LORazepam [Ativan] 0.5 mg PO HS PRN #2 02/17/17 [Rx] Melatonin 3 mg PO HS PRN tab 02/17/17 [Rx] Oxycodone HCl 10 mg PO TID PRN #3 02/17/17 [Rx] traZODone [TraZODone] 150 mg PO HS tab 02/17/17 [Rx] Allergies/Adverse Reactions: 3 Allergy/AdvReac Type Severity Reaction Status Date / Time IVP DYE Allergy Anaphylaxis Uncoded 12/23/15 21:12 Procedures/tests Complete & Pending: Procedures Performed prior 72 hours Category Date Time Status ECG 12 lead ECG [ECG] Routine Y 02/15/17 12:47 Completed Date of admission: 02/15/17 21:39 [facility] Discharging clinician: Kayla Alcantar Anticipated date of discharge: 02/17/17 - Patient Status Disposition: Transfer SNF Condition: Good Functional capacity at discharge: uses cane/walker Overall status at discharge: patient is back to baseline - Discharge Instructions Follow Up With: [facility] [Primary Care Provider] - Forms: ED Satisfaction Letter - Diet and Activity Activity: as per physical therapy, increase activity as tolerated Diet: diabetic diet, low fat, low cholesterol Hospital course: Mr. Issa is a 67 year old male with a pmh of CVA x 2 , CAD, HLD, A-fib, CHF, COPD, HTN, arthritis, PE, Syncope, anxiety and depression. She presented to the emergency department on day of admission with right-sided weakness and fatigue. He reported unresolved weakness fatigue and gait deficits beginning the day before admission at 1800. Patient reports feeling confused difficulty moving legs and felt like he was shuffling his feet when he was walking. Patient's took his blood pressure and he was found to be hypotensive. wanted to bring him to the emergency room but he was too sleepy and decided he wanted to stay home and go to bed. At that time he admits to headache, weakness, confusion, dizziness, slurred speech, drowsiness. After he awakened he was brought to the emergency department. He denied chest pain, shortness of breath, syncope. On admission and day after admission, patient had noticeable right-sided weakness but only in the lower extremity. Patient remain on telemetry, he continued his aspirin and statin and was on Tal precautions with bed alarm. By the next day his right leg weakness had, for the most part, resolved and he was able to bear weight and participate in physical therapy. He was their recommendation that due to weakness and instability he go to SNF for rehabilitation. Patient's head CT was negative for any acute intracranial abnormality. Due to patient's pacemaker, he was not able to have an MRI for evaluation of stroke. Second head CT 24 hours later was also negative and remain unchanged from the first. Chest x-ray was negative for any acute cardiopulmonary disease. Echocardiogram was done with Definity. There is LVEF of 60% with mild diastolic dysfunction, RV is dilated and function appears normal. There is mild to moderate TR no pulmonary hypertension and there is probably no PFO with saline contrasted image quality of saline injection was not optimal. Patient's carotids were normal throughout bilaterally. Mr. Issa was seen by neurology. Neurologist was highly suspicious of conversion disorder and there is no evidence of stroke. It is doubtful that a peripheral nerve disorder with present in the fashion in which it was presented. Patient will continue PT at [facility]. Patient has acute kidney injury, renal function continues to improve. He will need to avoid nephrotoxins and NSAIDs at shelter. Patient's potassium remains low, he will be discharged with orders to continue potassium. Patient was initially hypotensive on arrival, he was also lethargic and drowsy initially. He takes multiple medications that affect blood pressure and mental status and her sedating. They were all stopped, however, they have been restarted and he appears to be tolerating them well. Will continue all of his medications at the rehabilitation. Patient also has A1c that indicates prediabetes. He will need to be monitored at the rehabilitation, as well. Patient's labs are within normal limits, vital signs have remained stable and within normal limits. Patient has returned to his baseline he denies chest pain , dizziness, headache, blurred vision, states that he is still mildly weak but is significantly better than on arrival. Patient is ready for discharge to [facility] for rehabilitation. - Time Spent with Patient Total time spent providing and/or coordinating discharge services: - Constitutional Vitals: Temp Pulse Resp BP Pulse Ox 98.1 F 95 17 109/74 93 02/17/17 15:17 02/17/17 15:17 02/17/17 15:17 02/17/17 15:17 02/17/17 15:17 General appearance: Present: cooperative, A&O X 3, pleasant, no acute distress, answers questions appropriately - Head Head exam: Present: normal inspection, normocephalic - Eye Eye exam: Present: normal appearance, conjuntiva pink - ENT ENT exam: Present: mucous membranes moist, normal exam, normal oropharynx - Neck Neck exam general surgery: Present: normal inspection. Absent: lymphadenopathy , tenderness - Respiratory Respiratory exam: Present: CTAB. Absent: decreased breath sounds, rales, respiratory distress, rhonchi, stridor, wheezes - Cardiovascular Cardiovascular exam: Present: RRR, +S1, +S2. Absent: clicks, diastolic murmur, gallop, systolic murmur - GI/Abdominal GI/Abdominal exam: Present: distended, normal bowel sounds, soft. Absent: hepatomegaly - Extremities Exam Extremities exam: Present: pedal edema, warm, radial pulses palpable and symmetrical. Absent: joint swelling, mottling, tenderness - Neurological Exam Neurological exam: Present: alert, oriented X3, no focal deficits, strengths equal and symetr throughout. Absent: facial droop, speech deficit - Skin Skin exam: Present: dry, intact, normal color, warm. Absent: rash, urticaria
--- NOTE | 2017-02-17 18:11 | Physician Discharge Referral ---
ExtendedCare Referral Info Provider in Charge after Transfer: PCP Institutional Level of Care: Skilled - Diagnosis (1) Right sided weakness Priority: Primary Status: Resolved (2) Acute kidney injury Priority: Secondary Status: Acute (3) Hypokalemia Priority: Secondary Status: Acute (4) Hypotension Priority: Secondary Status: Resolved (5) DVT prophylaxis Priority: Secondary Status: Acute - Transfer Medications Prescriptions: LORazepam [Ativan] 0.5 mg PO HS PRN #2 PRN Reason: Anxiety Oxycodone HCl 10 mg PO TID PRN #3 PRN Reason: Pain Home Medications: Aspirin Enteric Coated [Aspirin EC] 81 mg PO DAILY #0 04/09/15 [History] Rivaroxaban [Xarelto] 20 mg PO DAILY #0 04/09/15 [History] Trazodone HCl [TraZODone] 150 mg PO HS 12/20/15 [History] Cholecalciferol (Vitamin D3) [Vitamin D3] 1,000 unit PO DAILY 03/12/16 [History] Albuterol Sulfate [Proair Hfa] 2 puff IH Q4H PRN 12/14/16 [History] Atorvastatin [Lipitor] 40 mg PO HS 12/14/16 [History] Furosemide [Lasix] 80 mg PO BID 12/14/16 [History] Gabapentin [Neurontin] 400 mg PO BID 12/14/16 [History] Magnesium Carbonate/Al Hydrox [Gaviscon Es Tablet Chew] 2 tab PO BID PRN [History] Metoprolol Succinate 25 mg PO DAILY 12/14/16 [History] Pantoprazole Sodium [Protonix] 40 mg PO DAILY 12/14/16 [History] Polyethylene Glycol 3350 [MiraLAX Powder Bulk 17.9 Oz] 17 gm PO DAILY PRN [History] Sennosides/Docusate Sodium [Senna-Docusate Sodium Tablet] 1 tab PO BID 12/14/16 [History] Spironolactone [Aldactone] 50 mg PO DAILY 12/14/16 [History] Tizanidine HCl [Zanaflex] 2 mg PO BID 12/14/16 [History] Fluticasone/Salmeterol [Advair 250-50 Diskus] 1 each IH BID 02/13/17 [History] Memantine HCl 10 mg PO BID 02/13/17 [History] Potassium Chloride [Klor-Con Sprinkle] 20 meq PO QID 02/13/17 [History] Tiotropium Br/Olodaterol HCl [Stiolto Respimat Inhal [place]] 2 puff IH DAILY [History] Triamcinolone Acet 0.1% CRM [Kenalog] 1 appl TP BID 02/13/17 [History] metOLazone [Zaroxolyn] 2.5 mg PO DAILY 02/13/17 [History] DULoxetine [Cymbalta] 30 mg PO DAILY 02/14/17 [History] Tamsulosin [Flomax] 0.4 mg PO DAILY 02/14/17 [History] LORazepam [Ativan] 0.5 mg PO HS PRN #2 02/17/17 [Rx] Melatonin 3 mg PO HS PRN tab 02/17/17 [Rx] Oxycodone HCl 10 mg PO TID PRN #3 02/17/17 [Rx] traZODone [TraZODone] 150 mg PO HS tab 02/17/17 [Rx] Allergies/Adverse Reactions: 3 Allergy/AdvReac Type Severity Reaction Status Date / Time IVP DYE Allergy Anaphylaxis Uncoded 12/23/15 21:12 - Respiratory Orders Smoking Cessation: Smoking cessation has been advised. For more information, call the [place] Tobacco Quit Line at 2-564-MLDANOW. - Lab Orders Lab Orders: CBC, U/A - Ancillary Orders May use pressure relief devices daily prn - Advance Directives Code Status: Full Code - Mobility Orders Chair, Ambulate - Rehabiliation Orders Rehab Potential: Good Rehab Orders: ROM Exercises - Treatments Skin tear care topically daily PRN per policy, May check for fecal impaction rectally daily PRN, Fleet enema rectally every other day PRN cleansing purposes - Diet Orders No Concentrated Sweets, Cardiac CERTIFICATION: I certify that the transfer of the above named patient to an Extended Care Facility is necessary for the continuing treatment of the diagnosis listed. The above information is true and accurate reflection of patient's current condition. Confidential - Redisclosure prohibited without a patient's written consent.
== END 2017-02-17 18:50 | DRG 684 ==
LOC: 3BNU 13:45 → EMEROO 13:45 → 3BNU 17:12
PROVIDERS: ADMIT Registered Nurse; ATTEND Nurse Practitioner Family

== ENCOUNTER 2017-05-27 11:11 | Inpatient (IN) ==
--- NOTE | 2017-05-27 13:22 | Emergency Department Note ---
Disposition Clinical Impression: Acute kidney injury, Hypokalemia, Generalized weakness Pneumonia Qualifiers: Pneumonia type: due to unspecified organism Laterality: unspecified laterality Lung location: unspecified part of lung Qualified Code(s): J18.9 - Pneumonia, unspecified organism Fall Qualifiers: Encounter type: initial encounter Qualified Code(s): W19.XXXA - Unspecified fall, initial encounter Disposition: Admitted As Inpatient Condition: Fair [facility]Primary Care Provider[facility] - Forms: ED Satisfaction Letter General Adult HPI - General Chief complaint: ED Fall Stated complaint: Fall/Weakness Time Seen by Provider: 05/27/17 12:28 Source: patient Limitations: no limitations Nursing Notes Reviewed: Yes Vital Signs Reviewed: Yes - History of Present Illness HPI Narrative: Patient presents for generalized weakness leading to fall. The patient has had 3 strokes within the last several months. Most recent stroke was one month ago. Patient is on several toe for 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. Patient was seen and evaluated at [facility]. Patient used up his initial Medicare days and had to undergo a three-week stay at [facility]. Patient was eventually placed with home health in the home. Home health has been inadequate per . The patient has become an increasing care burden. Patient's weakness worsening. The patient has recently had a cough with no sputum production. Patient wears oxygen at night as needed but has had overall increased oxygen requirement. The patient has increasing weakness of the left side which is new for him. Patient unable to keep the foot off the bed for a full 10 seconds. Patient complains of left hip pain after a fall that happened at 10:00 today secondary to the left side "giving out". The patient complains of left shoulder pain but has complete range of motion with minimal tenderness to palpation. Overall the family is saying he is more confused than usual. Patient will be investigated with head and neck CT as well as further imaging of the hip and blood work for overall concern of possible pneumonia or other metabolic process. Pain Scale: 8 - Related Data Home Medications Medication Instructions Recorded Confirmed Aspirin Enteric Coated [Aspirin EC] 81 mg PO DAILY #0 04/09/15 02/13/17 Rivaroxaban [Xarelto] 20 mg PO DAILY #0 04/09/15 02/13/17 Trazodone HCl [TraZODone] 150 mg PO HS 12/20/15 02/13/17 Cholecalciferol (Vitamin D3) 1,000 unit PO DAILY 03/12/16 02/13/17 [Vitamin D3] Albuterol Sulfate [Proair Hfa] 2 puff IH Q4H PRN 12/14/16 02/13/17 Atorvastatin [Lipitor] 40 mg PO HS 12/14/16 02/13/17 Furosemide [Lasix] 80 mg PO BID 12/14/16 02/13/17 Gabapentin [Neurontin] 400 mg PO BID 12/14/16 02/13/17 Magnesium Carbonate/Al Hydrox 2 tab PO BID PRN 12/14/16 02/13/17 [Gaviscon Es Tablet Chew] Metoprolol Succinate 25 mg PO DAILY 12/14/16 02/13/17 Pantoprazole Sodium [Protonix] 40 mg PO DAILY 12/14/16 02/13/17 Polyethylene Glycol 3350 [MiraLAX 17 gm PO DAILY PRN 12/14/16 02/13/17 Powder Bulk 17.9 Oz] Sennosides/Docusate Sodium 1 tab PO BID 12/14/16 02/13/17 [Senna-Docusate Sodium Tablet] Spironolactone [Aldactone] 50 mg PO DAILY 12/14/16 02/13/17 Tizanidine HCl [Zanaflex] 2 mg PO BID 12/14/16 02/13/17 Fluticasone/Salmeterol [Advair 1 each IH BID 02/13/17 02/13/17 250-50 Diskus] Memantine HCl 10 mg PO BID 02/13/17 02/13/17 Potassium Chloride [Klor-Con 20 meq PO QID 02/13/17 02/13/17 Sprinkle] Tiotropium Br/Olodaterol HCl 2 puff IH DAILY 02/13/17 02/13/17 [Stiolto Respimat Inhal [place]] Triamcinolone Acet 0.1% CRM 1 appl TP BID 02/13/17 02/13/17 [Kenalog] metOLazone [Zaroxolyn] 2.5 mg PO DAILY 02/13/17 02/13/17 DULoxetine [Cymbalta] 30 mg PO DAILY 02/14/17 02/14/17 Tamsulosin [Flomax] 0.4 mg PO DAILY 02/14/17 02/14/17 Previous Rx's Medication Instructions Recorded LORazepam [Ativan] 0.5 mg PO HS PRN #2 02/17/17 Melatonin 3 mg PO HS PRN tab 02/17/17 Oxycodone HCl 10 mg PO TID PRN #3 02/17/17 traZODone [TraZODone] 150 mg PO HS tab 02/17/17 Allergies Allergy/AdvReac Type Severity Reaction Status Date / Time IVP DYE Allergy Anaphylaxis Uncoded 05/27/17 11:23 Review of Systems: Review of systems Limited secondary to patient's overall condition Constitutional: Reports: chills, weakness. Denies: fever Cardiovascular: Reports: dyspnea on exertion. Denies: chest pain Respiratory: Reports: cough, dyspnea Gastrointestinal: Reports: nausea. Denies: abdominal pain Genitourinary: Denies: urgency, dysuria Integumentary: Denies: rash Neurological: Reports: weakness Psychiatric: Denies: anxiety Endocrine: Reports: fatigue Past Medical History - Past Medical History Medical history: Reports: arthritis, atrial fibrillation, CHF, COPD, coronary artery disease, CVA, GERD, hyperlipidemia, hypertension, pulmonary embolus, syncope, venous stasis, other Surgical history: Reports: herniorrhaphy, knee replacement, pacemaker/AICD, other Psychiatric history: Reports: anxiety, depression - Social History Smoking Status: Former smoker Smokeless Tobacco Status: No Alcohol use: Reports: none Drug use: Reports: none Physical Exam General appearance: NAD, slowness to speech Eyes: anicteric sclerae, moist conjunctivae; PERRL; eye patch in place on right. HENT: Atraumatic; oropharynx clear with moist mucous membranes and no mucosal ulcerations Neck: Normal inspection; Trachea midline; FROM, supple Lungs: CTA, with normal respiratory effort and no intercostal retractions CV: RRR, no MRGs Abdomen: Soft, non-tender; no rebound or gaurding Extremities: Mild lower extremity edema Skin: Normal temperature; no rash, ulcers or lesions Psych: Appropriate mood and affect Neuro: alert and oriented to person, place Musculoskeletal: Weakness to the right from residual stroke. Patient's weakness on the left leg with unable to keep the foot off the bed for greater than 10 seconds . Strength in the upper extremities is 5 out of 5 laterally. - General Limitations: no limitations General appearance: alert, in no apparent distress Course - Reevaluation(s) Reevaluation #1: Patient has hypokalemia and acute kidney injury. Patient's elevated white count is likely from pneumonia as he has had a cough and subjective fevers with increased oxygen requirement and was was recently hospitalized this would be healthcare associated pneumonia. Blood cultures initial antibiotics given. - Consultations Consultation #1: Discussed with Dr. Bonilla. Pt accepted for admission. Vital Signs Temperature 97.5 F L 05/27/17 11:12 Pulse Rate 62 05/27/17 11:12 Respiratory Rate 20 05/27/17 11:12 Blood Pressure 95/67 05/27/17 11:12 O2 Sat by Pulse Oximetry 90 05/27/17 11:12 Temperature 97.5 F L 05/27/17 11:12 Pulse Rate 65 05/27/17 13:38 Respiratory Rate 18 05/27/17 13:38 Blood Pressure 97/73 05/27/17 13:38 O2 Sat by Pulse Oximetry 97 05/27/17 13:38 Oxygen Delivery Oxygen Delivery Nasal Cannula Medical Decision Making - Medical Records Medical records reviewed: Yes I reviewed the patient's medical records. - Lab Data Lab results reviewed: Yes I reviewed the patient's lab results. Result diagrams: 05/27/17 13:23 05/27/17 13:23 Lab Results 05/27/17 05/27/17 05/27/17 Range/Units 12:54 13:23 13:23 WBC 14.2 H (4.3-11.1) K/mcL RBC 5.37 (4.19-5.50) M/mcL Hgb 15.0 (12.9-16.9) g/dL Hct 45.3 (37.5-50.1) % MCV 84.4 (83.0-100.0) fL MCH 27.9 L (28.0-33.3) pg MCHC 33.1 (31.6-35.5) g/dL RDW 14.4 (11.5-14.5) % Plt Count 297 (140-400) K/mcL MPV 9.6 (9.4-12.4) fL Immature Gran % 0.4 (0-4) % Seg Neutrophils % 76.3 % Lymphocytes % 11.7 % Monocytes % 9.4 % Eosinophils % 1.8 % Basophils % 0.4 % Neutrophils # 10.8 H (1.6-8.9) K/mcL Lymphocytes # 1.7 (0.6-4.6) K/mcL Monocytes # 1.3 (0.0-1.3) K/mcL Eosinophils # 0.3 (0.0-0.6) K/mcL Basophils # 0.1 (0.0-0.2) K/mcL PT 21.4 H (9.4-12.1) Seconds INR 2.0 Sodium (136-145) mEq/L Potassium (3.5-4.5) mEq/L Chloride (98-109) mEq/L Carbon Dioxide (19-29) mEq/L BUN (8-26) mg/dL Creatinine (0.72-1.25) mg/dL Est GFR ( Amer) (> 60) Est GFR (Non-Af Amer) (> 60) BUN/Creatinine Ratio (6-26) Glucose (70-99) mg/dL POC Glucose (58-89) Calculated Osmolality (280-300) Calcium (8.6-10.8) mg/dL Total Bilirubin (0.2-1.2) mg/dL Direct Bilirubin (0.0-0.5) mg/dL Indirect Bilirubin (0.0-1.2) mg/dL AST (5-34) Units/L ALT (0-55) Units/L Alkaline Phosphatase (38-126) Units/L Troponin I (0-0.03) ng/mL Serum Total Protein (6.0-8.3) g/dL Albumin (3.5-5.0) g/dL Globulin (2.4-3.5) g/dL Albumin/Globulin Ratio (1.1-2.2) Urine Color Yellow (Yellow) Urine Clarity Clear (Clear) Urine pH 7.0 (5.0-8.0) pH Units Ur Specific [place] 1.009 L (1.010-1.025) Urine Protein Negative (Neg-Trace) mg/dL Urine Glucose (UA) Normal (Normal) mg/dL Urine Ketones Negative (Negative) mg/dL Urine Blood Negative (Negative) Urine Nitrite Negative (Negative) Urine Bilirubin Negative (Negative) Urine Urobilinogen Normal (Normal) mg/dL Ur Leukocyte Esterase Negative (Negative) Ur Culture Indicated? NO (NO) Urine Opiates Screen (Arvuoa=143) ng/mL Ur Barbiturates Screen (Ayfpii=965) ng/mL Ur Phencyclidine Scrn (Cutoff=25) ng/mL Ur Amphetamines Screen (Mrvkqw=0866) ng/mL U Benzodiazepines Scrn (Vxoagz=916) ng/mL Urine Cocaine Screen (Cutoff= 300) ng/mL U Marijuana (THC) Screen (Cutoff = 50) ng/mL Ethyl Alcohol (0-10) mg/dL 05/27/17 05/27/17 05/27/17 Range/Units 13:23 13:23 13:26 WBC (4.3-11.1) K/mcL RBC (4.19-5.50) M/mcL Hgb (12.9-16.9) g/dL Hct (37.5-50.1) % MCV (83.0-100.0) fL MCH (28.0-33.3) pg MCHC (31.6-35.5) g/dL RDW (11.5-14.5) % Plt Count (140-400) K/mcL MPV (9.4-12.4) fL Immature Gran % (0-4) % Seg Neutrophils % % Lymphocytes % % Monocytes % % Eosinophils % % Basophils % % Neutrophils # (1.6-8.9) K/mcL Lymphocytes # (0.6-4.6) K/mcL Monocytes # (0.0-1.3) K/mcL Eosinophils # (0.0-0.6) K/mcL Basophils # (0.0-0.2) K/mcL PT (9.4-12.1) Seconds INR Sodium 135 L (136-145) mEq/L Potassium 2.9 L (3.5-4.5) mEq/L Chloride 86 L (98-109) mEq/L Carbon Dioxide 37 H (19-29) mEq/L BUN 86 H (8-26) mg/dL Creatinine 3.24 H (0.72-1.25) mg/dL Est GFR ( Amer) 23 L (> 60) Est GFR (Non-Af Amer) 19 L (> 60) BUN/Creatinine Ratio 27 H (6-26) Glucose 111 H (70-99) mg/dL POC Glucose 121 H (58-89) Calculated Osmolality 307 H (280-300) Calcium 9.5 (8.6-10.8) mg/dL Total Bilirubin 0.4 (0.2-1.2) mg/dL Direct Bilirubin 0.2 (0.0-0.5) mg/dL Indirect Bilirubin 0.2 (0.0-1.2) mg/dL AST 27 (5-34) Units/L ALT 53 (0-55) Units/L Alkaline Phosphatase 118 (38-126) Units/L Troponin I 0.01 (0-0.03) ng/mL Serum Total Protein 7.8 (6.0-8.3) g/dL Albumin 3.6 (3.5-5.0) g/dL Globulin 4.2 H (2.4-3.5) g/dL Albumin/Globulin Ratio 0.9 L (1.1-2.2) Urine Color (Yellow) Urine Clarity (Clear) Urine pH (5.0-8.0) pH Units Ur Specific [place] (1.010-1.025) Urine Protein (Neg-Trace) mg/dL Urine Glucose (UA) (Normal) mg/dL Urine Ketones (Negative) mg/dL Urine Blood (Negative) Urine Nitrite (Negative) Urine Bilirubin (Negative) Urine Urobilinogen (Normal) mg/dL Ur Leukocyte Esterase (Negative) Ur Culture Indicated? (NO) Urine Opiates Screen (Jujlsr=017) ng/mL Ur Barbiturates Screen (Dplrvi=288) ng/mL Ur Phencyclidine Scrn (Cutoff=25) ng/mL Ur Amphetamines Screen (Acjlye=0544) ng/mL U Benzodiazepines Scrn (Pvaxis=151) ng/mL Urine Cocaine Screen (Cutoff= 300) ng/mL U Marijuana (THC) Screen (Cutoff = 50) ng/mL Ethyl Alcohol < 10 (0-10) mg/dL 05/27/17 Range/Units 13:30 WBC (4.3-11.1) K/mcL RBC (4.19-5.50) M/mcL Hgb (12.9-16.9) g/dL Hct (37.5-50.1) % MCV (83.0-100.0) fL MCH (28.0-33.3) pg MCHC (31.6-35.5) g/dL RDW (11.5-14.5) % Plt Count (140-400) K/mcL MPV (9.4-12.4) fL Immature Gran % (0-4) % Seg Neutrophils % % Lymphocytes % % Monocytes % % Eosinophils % % Basophils % % Neutrophils # (1.6-8.9) K/mcL Lymphocytes # (0.6-4.6) K/mcL Monocytes # (0.0-1.3) K/mcL Eosinophils # (0.0-0.6) K/mcL Basophils # (0.0-0.2) K/mcL PT (9.4-12.1) Seconds INR Sodium (136-145) mEq/L Potassium (3.5-4.5) mEq/L Chloride (98-109) mEq/L Carbon Dioxide (19-29) mEq/L BUN (8-26) mg/dL Creatinine (0.72-1.25) mg/dL Est GFR ( Amer) (> 60) Est GFR (Non-Af Amer) (> 60) BUN/Creatinine Ratio (6-26) Glucose (70-99) mg/dL POC Glucose (58-89) Calculated Osmolality (280-300) Calcium (8.6-10.8) mg/dL Total Bilirubin (0.2-1.2) mg/dL Direct Bilirubin (0.0-0.5) mg/dL Indirect Bilirubin (0.0-1.2) mg/dL AST (5-34) Units/L ALT (0-55) Units/L Alkaline Phosphatase (38-126) Units/L Troponin I (0-0.03) ng/mL Serum Total Protein (6.0-8.3) g/dL Albumin (3.5-5.0) g/dL Globulin (2.4-3.5) g/dL Albumin/Globulin Ratio (1.1-2.2) Urine Color (Yellow) Urine Clarity (Clear) Urine pH (5.0-8.0) pH Units Ur Specific [place] (1.010-1.025) Urine Protein (Neg-Trace) mg/dL Urine Glucose (UA) (Normal) mg/dL Urine Ketones (Negative) mg/dL Urine Blood (Negative) Urine Nitrite (Negative) Urine Bilirubin (Negative) Urine Urobilinogen (Normal) mg/dL Ur Leukocyte Esterase (Negative) Ur Culture Indicated? (NO) Urine Opiates Screen Negative (Bgmotg=107) ng/mL Ur Barbiturates Screen Negative (Gquaxg=060) ng/mL Ur Phencyclidine Scrn Negative (Cutoff=25) ng/mL Ur Amphetamines Screen Negative (Cscdkd=7737) ng/mL U Benzodiazepines Scrn Negative (Kqcyed=689) ng/mL Urine Cocaine Screen Negative (Cutoff= 300) ng/mL U Marijuana (THC) Screen Negative (Cutoff = 50) ng/mL Ethyl Alcohol (0-10) mg/dL - Radiology Data Radiology results reviewed: Yes I reviewed the patient's radiology results. - EKG Data EKG #1 EKG attestation: Yes I reviewed and interpreted this EKG. EKG results narrative: EKG shows electronically paced rhythm at 77 bpm. CA interval 237. QRS 110. QTC 448. Patient has mild elevation of [address] Similar to previous EKG of 02/15/17. No other acute abnormalities.
[2017-05-27 13:31] LABS: Basophils # 0.1 K/mcL (0.0-0.2); Basophils % 0.4 %; Eosinophils # 0.3 K/mcL (0.0-0.6); Eosinophils % 1.8 %; Hematocrit 45.3 % (37.5-50.1); Immature Granulocytes % 0.4 % (0-4); Lymphocytes # 1.7 K/mcL (0.6-4.6); Lymphocytes % 11.7 %; Mean Corpuscular HGB Conc 33.1 g/dL (31.6-35.5); Mean Corpuscular Hemoglobin 27.9 pg (28.0-33.3); Mean Corpuscular Volume 84.4 fL (83.0-100.0); Mean Platelet Volume 9.6 fL (9.4-12.4); Monocytes # 1.3 K/mcL (0.0-1.3); Monocytes % 9.4 %; Neutrophils # 10.8 K/mcL (1.6-8.9); Platelet Count 297 K/mcL (140-400); Red Blood Count 5.37 M/mcL (4.19-5.50); Red Cell Distribution Width 14.4 % (11.5-14.5); Segmented Neutrophils % 76.3 %
[2017-05-27 13:36] LABS: Prothrombin Time 21.4 Seconds (9.4-12.1)
[2017-05-27 13:38] LABS: Bilirubin,Urine Negative (Negative); Blood,Urine Negative (Negative); Clarity,Urine Clear (Clear); Color,Urine Yellow (Yellow); Glucose,Urine (UA) Normal (Normal); Ketones,Urine Negative (Negative); Leukocyte Esterase,Urine Negative (Negative); Nitrite,Urine Negative (Negative); Protein,Urine Negative (Neg-Trace); Specific Gravity,Urine 1.009 (1.010-1.025); Urobilinogen,Urine Normal (Normal)
[2017-05-27 13:43] LABS: Alanine Aminotransferase 53 Units/L (0-55); Albumin 3.6 g/dL (3.5-5.0); Albumin/Globulin Ratio 0.9 (1.1-2.2); Alkaline Phosphatase 118 Units/L (38-126); Aspartate Amino Transferase 27 Units/L (5-34); BUN/Creatinine Ratio 27 (6-26); Bilirubin,Direct 0.2 mg/dL (0.0-0.5); Bilirubin,Indirect 0.2 mg/dL (0.0-1.2); Bilirubin,Total 0.4 mg/dL (0.2-1.2); Blood Urea Nitrogen 86 mg/dL (8-26); Calcium 9.5 mg/dL (8.6-10.8); Carbon Dioxide 37 mEq/L (19-29); Chloride 86 mEq/L (98-109); Globulin 4.2 g/dL (2.4-3.5); Glucose 111 mg/dL (70-99); Osmolality,Calculated 307 (280-300); Potassium 2.9 mEq/L (3.5-4.5); Sodium 135 mEq/L (136-145); Total Protein 7.8 g/dL (6.0-8.3); eGFR For African Americans 23 (> 60); eGFR For Non-African Americans 19 (> 60)
[2017-05-27 13:44] LABS: Ethanol < 10 mg/dL (0-10)
[2017-05-27 13:44] LABS: Amphetamine Screen,Urine Negative ng/mL (Cutoff=1000); Barbiturate Screen,Urine Negative ng/mL (Cutoff=200); Benzodiazepines Screen,Urine Negative ng/mL (Cutoff=200); Cannabinoid Screen,Urine Negative ng/mL (Cutoff = 50); Cocaine Screen,Urine Negative ng/mL (Cutoff= 300); Opiate Screen,Urine Negative ng/mL (Cutoff=300); Phencyclidine Screen,Urine Negative ng/mL (Cutoff=25)
[2017-05-27] MEDS ORDERED: 0.9 % Sodium Chloride 1,000 ML IVC ONE (13:52)
--- NOTE | 2017-05-27 14:06 | Emergency Department Note ---
START Narrative - START START: I examined this patient and my medical decision-making was reviewed with the Resident Physician. I agree with the documented findings, disposition and treatment plan as described except to the extent set forth below. 67-year-old male presents the ER with weakness. Patient found to be in acute renal failure likely secondary to dehydration. Patient has low potassium at 2.9. Patient will need to be admitted for IV fluids. All CTs are negative. Plain films are negative. No critical care time
[2017-05-27] MEDS ORDERED: Naloxone 0.4 MG/ML INJ IVP PRN (14:10)
[2017-05-27] MEDS ORDERED: 0.9 % Sodium Chloride 1,000 ML IVC SCH (14:15)
[2017-05-27] MEDS ORDERED: Levofloxacin 750 MG/150 ML 750 MG/150 ML BAG IVPB ONE (14:20)
[2017-05-27] MEDS ORDERED: Vancomycin 1,000 MG in D5% in Water 250 ML IVPB ONE (14:20)
[2017-05-27] MEDS ORDERED: Azithromycin 500 MG in D5% in Water 250 ML IVPB SCH (15:00)
[2017-05-27] MEDS ORDERED: Piperacillin/Tazobactam 3.375 GM in 0.9 % Sodium Chloride Mini Bag 100 ML IVPB ONE (15:00)
[2017-05-27] MEDS ORDERED: cefTRIAXone 1,000 MG in Water for inj. (sterile) 10 ML IVP SCH (15:00)
[2017-05-27] MEDS ORDERED: Albuterol 2.5 MG/3 ML NEBULIZER IH PRN (15:13)
[2017-05-27] MEDS ORDERED: *HR* Dextrose 50 % in Water (Syg) 50 ML SYRINGE IVP PRN (15:14)
[2017-05-27] MEDS ORDERED: D5% in Water 1,000 ML IVC PRN (15:14)
[2017-05-27] MEDS ORDERED: Dextrose Gel 15 GM PO PRN ×2 (15:14)
--- NOTE | 2017-05-27 15:22 | Internal Med History&Physical ---
<Francy Mcdaniels - Last Filed: 05/27/17 18:41> Date of Encounter: 05/27/17 Time of Encounter: 15:20 Assessment and Plan (1) Hypovolemia dehydration Current visit: Yes Status: Acute Patient has been experiencing increasing weakness as well as falls he is on several diuretics he appears hypotensive with a KI. We will give IV fluids overnight Hold diuretics for now Maintain MAP greater than 60 Fall precautions (2) Acute kidney injury Current visit: Yes Status: Acute Creatinine is 3.2 for baseline is around 1.3-1.7. Patient is on several diuretics suspect that this is contributing to AG. We will hold diuretics for now give gentle IV hydration overnight Nephrology has been consulted We will obtain urine sodium and urine creatinine We will obtain renal ultrasound Monitor intake and output daily weights Avoid nephrotoxins Maintain MAP greater than 60 (3) COPD (chronic obstructive pulmonary disease) Current visit: Yes Status: Acute Patient has history of COPD he is oxygen dependent. He has been expressing increasing shortness of breath on exertion as well as nonproductive cough. We will continue with bronchodilators as well as oxygen titrating to maintain SPO2 greater than 92% We will initiate on levaquin- He is on Tikosyn we will monitor QTC daily Qualifiers: COPD type: unspecified COPD Qualified Code(s): J44.9 - Chronic obstructive pulmonary disease, unspecified (4) Falls Current visit: Yes Status: Acute Patient has been sustaining falls due to increased weakness and deconditioning. We will place on fall precaution Consult PT and OT for strengthening Qualifiers: Encounter type: initial encounter Qualified Code(s): W19.XXXA - Unspecified fall, initial encounter (5) Paroxysmal a-fib Current visit: No Status: Chronic Presently patient is sinus rhythm rate in the 60-70. We will continue with xarelto and renally dose Patient is on Tikosyn -we will monitor QTc daily-presently QTc is 448 corrected 3.227 patient is on Levaquin for COPD exacerbation as well as he does have a KI I did speak with Dr. Brown concerning plan and medication administration. He will follow patient and agrees with monitoring QTc daily. (6) Diastolic dysfunction Current visit: No Status: Chronic (7) Diabetes mellitus Current visit: Yes Status: Acute According to the patient has not been taking his insulin that he has been well controlled with diet. We will monitor Accu-Chek before meals at bedtime sliding scale insulin as needed Diabetic diet Qualifiers: Diabetes mellitus type: type 2 Diabetes mellitus complication status: with kidney complications Diabetes mellitus complication detail: with chronic kidney disease Diabetes mellitus long term care pharmacist insulin use: without retirement use Chronic kidney disease stage: stage 3 (moderate) Qualified Code(s): E11.22 - Type 2 diabetes mellitus with diabetic chronic kidney disease; N18.3 - Chronic kidney disease, stage 3 (moderate); N18.3 - Chronic kidney disease, stage 3 (moderate) (8) Hypokalemia Current visit: Yes Status: Acute Patient's potassium was 2.9 on presentation patient is on several diuretics which we will hold for now. We will replace potassium and recheck Continuous cardiac monitoring (9) DVT prophylaxis Current visit: Yes Status: Acute Patient is on Xarelto Internal Medicine - H&P: HPI Chief complaint: Weakness and falls Admitted From: Emergency Dept Plans for Post Hospital Care: Home History of present illness: Mr. Issa is a 67 year old male with past medical history of CVA most recent approximately a month ago CAD hyperlipidemia atrial fibrillation with ablation CHF diastolic COPD oxygen-dependent hypertension PE pacemaker/AICD. According to the family over the past few days the patient has grown increasingly weak at times confused. He does have home health aides in her home however it has become increasingly difficult to care. He has had a recent cough with no sputum production or fevers. He is a thin experiencing increasing shortness of breath on exertion. He does wear oxygen and has required increased oxygen. Patient did have an episode where he fell today and was complaining of left hip pain. No nausea vomiting or diarrhea. He presented to the ER with the above complaints. CT head and neck with no intercranial abnormalities or fractures. Chest x-ray was clear. Lab work did reveal a KI as well as hyponatremia. Patient was given IV fluids and he has been admitted for further workup and evaluation. Presently the patient does not appear to be in respiratory distress he denies any chest pain or shortness of breath at this time he is neurologically intact as he is hypotensive however otherwise stable. Past Med Surg Social Fam HX - Past Medical History Medical history: arthritis, atrial fibrillation, CHF, COPD, coronary artery disease, CVA, GERD, hyperlipidemia, hypertension, pulmonary embolus, syncope, venous stasis, other Psychiatric history: anxiety, depression - Past Surgical History Surgical History: herniorrhaphy, knee replacement, pacemaker/AICD, other - Social History Smoking Status: Former smoker Smokeless Tobacco Status: No Alcohol use: none Drug use: none - Family History Father Adopted: No Family Member Ethnicity: Non- Living Status: Hx Family Cardiac Disorders: No Hx Family Respiratory Disorders: No Hx Family Cancer: Yes Hx Family GI Disorders: No Hx Family Endocrine Disorder: No Hx Family Neuromuscular Disorders: No Hx Family Neurologic Disorders: No Hx Family HEENT Disorders: No Hx Family Autoimmune Disorders: No Mother Adopted: No Family Member Ethnicity: Non- Twin of Family Member: Yes Living Status: Still Living Hx Family Cardiac Disorders: Yes Hx Family Respiratory Disorders: No Hx Family Cancer: Yes (father leukemia) Hx Family GI Disorders: No Hx Family Endocrine Disorder: No Hx Family Neuromuscular Disorders: No Hx Family Neurologic Disorders: No Hx Family HEENT Disorders: No Hx Family Autoimmune Disorders: Yes (arthritis) Internal Medicine - H&P: Meds Aspirin Enteric Coated [Aspirin EC] 81 mg PO DAILY #0 04/09/15 [History] Rivaroxaban [Xarelto] 20 mg PO DAILY #0 04/09/15 [History] Trazodone HCl [TraZODone] 150 mg PO HS 12/20/15 [History] Cholecalciferol (Vitamin D3) [Vitamin D3] 1,000 unit PO DAILY 03/12/16 [History] Albuterol Sulfate [Proair Hfa] 2 puff IH Q4H PRN 12/14/16 [History] Atorvastatin [Lipitor] 40 mg PO HS 12/14/16 [History] Furosemide [Lasix] 40 mg PO BID PRN 12/14/16 [History] Gabapentin [Neurontin] 400 mg PO BID 12/14/16 [History] Pantoprazole Sodium [Protonix] 40 mg PO DAILY 12/14/16 [History] Polyethylene Glycol 3350 [MiraLAX Powder Bulk 17.9 Oz] 17 gm PO DAILY PRN [History] Sennosides/Docusate Sodium [Senna-Docusate Sodium Tablet] 1 tab PO BID 12/14/16 [History] Spironolactone [Aldactone] 50 mg PO DAILY 12/14/16 [History] Tizanidine HCl [Zanaflex] 2 mg PO BID 12/14/16 [History] Potassium Chloride [Klor-Con Sprinkle] 20 meq PO BID 02/13/17 [History] DULoxetine [Cymbalta] 30 mg PO DAILY 02/14/17 [History] Tamsulosin [Flomax] 0.4 mg PO DAILY 02/14/17 [History] LORazepam [Ativan] 0.5 mg PO HS PRN #2 02/17/17 [Rx] Acetaminophen [Tylenol Arthritis] 650 mg PO Q4H PRN 05/27/17 [History] Budesonide/Formoterol 160/4.5 [Symbicort 160/4.5] 2 puff IH BID 05/27/17 [ History] Dofetilide [Tikosyn] 375 mcg PO BID 05/27/17 [History] Mag Hydrox/Al Hydrox/Simeth [Maalox] 30 ml PO Q4H PRN 05/27/17 [History] Melatonin 6 mg PO HS PRN 05/27/17 [History] Memantine HCl [Namenda Xr] 28 mg PO DAILY 05/27/17 [History] Metoprolol [Lopressor] 25 mg PO BID 05/27/17 [History] Oxycodone HCl 10 mg PO Q6H PRN 05/27/17 [History] Tiotropium [Spiriva] 18 mcg IH DAILY 05/27/17 [History] 3 Allergy/AdvReac Type Severity Reaction Status Date / Time IVP DYE Allergy Anaphylaxis Uncoded 05/27/17 11:23 All Systems PM: A 10-system review of systems was performed and is negative for pertinent findings except as documented above in the HPI. - Constitutional Constitutional: weakness, no chills, no fever(s), no night sweats - EENT Eyes: no change in vision, no discharge, no pain, no photophobia Ears: no ear discharge, no ear pain, no tinnitus Nose, mouth and throat: no dysphagia, no nasal discharge, no neck pain, no sore throat - Cardiovascular Cardiovascular ROS IM: dyspnea on exertion, no chest pain, no diaphoresis, no dyspnea, no lightheadedness, no palpitations, no syncope - Respiratory Respiratory: cough, dyspnea on exertion, no dyspnea, no wheezing, no excessive phlegm production - Gastrointestinal Gastrointestinal: no abdominal pain, no diarrhea, no hematemesis, no hematochezia, no melena, no nausea, no vomiting - Musculoskeletal Musculoskeletal ROS IM: no numbness, no tingling - Integumentary Integumentary IM: no rash, no unusual bruising - Neurological Neurological ROS: no confusion, no convulsions, no focal weakness, no numbness, no tingling, no tremor(s) - Hematologic/Lymphatic Hematologic/Lymphatic: no easy bruising - Constitutional Vitals: Temp Pulse Resp BP Pulse Ox 97.5 F L 77 18 112/77 97 05/27/17 11:12 05/27/17 14:44 05/27/17 14:44 05/27/17 14:44 05/27/17 14:44 General appearance: Present: A&O X 3, answers questions appropriately - Head Head exam: Present: atraumatic, normocephalic - Eye Eye exam: Present: PERRL, conjuntiva pink, sclera anicteric Pupils: Present: PERRL - Neck Neck exam general surgery: Present: supple, trachea midline. Absent: lymphadenopathy - Respiratory Respiratory exam: Present: CTAB. Absent: accessory muscle use, rales, rhonchi, wheezes - Cardiovascular Cardiovascular exam: Present: RRR, +S1, +S2. Absent: diastolic murmur, gallop, rubs, systolic murmur - GI/Abdominal GI/Abdominal exam: Present: normal bowel sounds, soft, no peritoneal signs. Absent: distended, tenderness - Extremities Exam Extremities exam: Present: warm, radial pulses palpable and symmetrical. Absent : calf tenderness, cyanotic, pedal edema - Neurological Exam Neurological exam: Present: CN II-XII intact, oriented X3, no focal deficits. Absent: pronater drift, facial droop, speech deficit - Skin Skin exam: Present: dry, intact Internal Med - H&P Results - Labs CBC & Chem 7: 05/27/17 13:23 05/27/17 13:23 - EKG Data EKG shows normal: sinus rhythm - EKG Data Prior EKG available for review: yes When compared to previous EKG: there is no significant change - Diagnostic Studies Other Images Additional comments: Chest X-Ray 05/27/17 12:28 IMPRESSION: No acute process. D/ / Red Dey MD / Red Dey MD Interpreting Provider: Red Dey MD Head CT 05/27/17 12:28 IMPRESSION: 1. No acute intracranial abnormality. 2. Increased right frontal sinusitis. Chronic bilateral maxillary sinus disease. D/ / Naveen Delarosa MD / Naveen Delarosa MD Interpreting Provider: Naveen Delarosa MD Cervical Spine CT 05/27/17 12:29 IMPRESSION: 1. No acute fracture. 2. Multilevel degenerative changes with degenerative 1-2 mm anterolisthesis of C3 with respect to 4. 3. Extensive chronic paranasal sinusitis. D/ / 05/27/2017 13:17:15 Lai Mcallister MD / Trish Francis Interpreting Provider: Lai Mcallister MD Hip X-Ray 05/27/17 12:29 IMPRESSION: No evidence of acute osseous abnormality. Mild bilateral hip osteoarthrosis. D/ / Jose Francisco Dong MD / Jose Francisco Dong MD Interpreting Provider: Jose Francisco Dong MD <Chilango Bonilla P - Last Filed: 05/30/17 07:39> Date of Encounter: 05/30/17 Internal Medicine - H&P: HPI History of present illness: Mr. Issa is a 67 year old male All Systems PM: A 10-system review of systems was performed and is negative for pertinent findings except as documented above in the HPI. - Constitutional Vitals: Temp Pulse Resp BP Pulse Ox 97.6 F 71 16 107/69 95 05/30/17 06:48 05/30/17 06:48 05/30/17 06:48 05/30/17 06:48 05/30/17 06:48 Internal Med - H&P Results - Labs CBC & Chem 7: 05/30/17 05:33 05/30/17 05:33 Labs: Short CBC 05/30/17 Range/Units 05:33 WBC 9.6 (4.3-11.1) K/mcL Hgb 13.3 (12.9-16.9) g/dL Hct 40.1 (37.5-50.1) % Plt Count 252 (140-400) K/mcL Neutrophils # 6.9 (1.6-8.9) K/mcL BMP 05/30/17 05:33 Sodium 136 Potassium 3.2 L Chloride 93 L Carbon Dioxide 30 H BUN 42 H D Creatinine 1.35 H Glucose 114 H Calcium 9.3 - Impressions ITS Impressions Retroperitoneum Ultrasound 05/27/17 15:06 IMPRESSION: 1. The bilateral kidneys demonstrate no obstructive uropathy. Bilateral simple benign renal cysts. 2. Postvoid bladder volume 486 mL. D/ 05/27/2017 16:41:48 Lai Mcallister MD / Trish Francis Interpreting Provider: Lai Mcallister MD - Attending Attestation I examined this patient and my medical decision-making was reviewed with the Resident Physician/EGG PRODUCER. I agree with the documented findings, disposition and treatment plan as described except to the extent set forth below. patient seen and examined chart reviewed. Assessment and plan discussed with EGG PRODUCER Agree with overall management.
[2017-05-27] MEDS: Ipratropium/Albuterol Neb 3 ML IH SCH ×2 (16:41→22:32)
[2017-05-27] MEDS: 0.9 % Sodium Chloride 1,000 ML IVC SCH (17:11)
[2017-05-27] MEDS: Insulin LISPRO 300 UNITS/3 ML VIAL SQ SCH ×2 (17:15→20:58)
[2017-05-27] MEDS: *HR* Rivaroxaban 15 MG TABLET PO SCH (18:59)
[2017-05-27] MEDS ORDERED: Levofloxacin 750 MG/150 ML 750 MG/150 ML BAG IVPB SCH (19:00)
[2017-05-27] MEDS: Gabapentin 300 MG CAPSULE PO SCH (20:57)
[2017-05-27] MEDS ORDERED: DOFETILIDE PO SCH (21:00)
[2017-05-27] MEDS: *HR* LORazepam 0.5 MG TABLET PO PRN (22:03)
[2017-05-27] MEDS: Budesonide/Formoterol 160/4.5 MDI IH SCH (22:32)
[2017-05-28] MEDS ORDERED: Acetaminophen 325 MG TABLET PO PRN (00:18)
[2017-05-28 01:25] LABS: Basophils # 0.1 K/mcL (0.0-0.2); Basophils % 0.4 %; Eosinophils # 0.3 K/mcL (0.0-0.6); Eosinophils % 2.1 %; Hematocrit 44.2 % (37.5-50.1); Hemoglobin 14.7 g/dL (12.9-16.9); Immature Granulocytes % 0.5 % (0-4); Lymphocytes # 1.2 K/mcL (0.6-4.6); Lymphocytes % 9.8 %; Mean Corpuscular HGB Conc 33.3 g/dL (31.6-35.5); Mean Corpuscular Hemoglobin 28.2 pg (28.0-33.3); Mean Corpuscular Volume 84.7 fL (83.0-100.0); Mean Platelet Volume 9.7 fL (9.4-12.4); Monocytes # 1.2 K/mcL (0.0-1.3); Neutrophils # 9.3 K/mcL (1.6-8.9); Platelet Count 259 K/mcL (140-400); Red Blood Count 5.22 M/mcL (4.19-5.50); Red Cell Distribution Width 14.5 % (11.5-14.5); Segmented Neutrophils % 77.2 %
[2017-05-28 01:37] LABS: Albumin 3.4 g/dL (3.5-5.0); Albumin/Globulin Ratio 0.9 (1.1-2.2); Bilirubin,Total 0.4 mg/dL (0.2-1.2); Calcium 9.4 mg/dL (8.6-10.8); Magnesium 2.7 mg/dL (1.6-2.6); Phosphorous 2.5 mg/dL (2.3-4.7); Potassium 2.7 mEq/L (3.5-4.5); Total Protein 7.4 g/dL (6.0-8.3)
[2017-05-28] MEDS: *HR* OxyCODONE Immed Rel 5 MG TABLET PO PRN ×3 (01:37→19:51)
[2017-05-28 01:57] LABS: INR 1.9; Prothrombin Time 20.3 Seconds (9.4-12.1)
[2017-05-28 02:00] LABS: Activated Partial Thrombo Time 35.9 Seconds (26.0-36.0)
[2017-05-28] MEDS: Ipratropium/Albuterol Neb 3 ML IH SCH ×4 (04:21→22:32)
[2017-05-28] MEDS: Aspirin Enteric Coated 81 MG Tablet PO SCH (08:05)
[2017-05-28] MEDS: Gabapentin 300 MG CAPSULE PO SCH ×2 (08:05→22:08)
[2017-05-28] MEDS: Tiotropium 18 MCG inhalation IH SCH (08:07)
[2017-05-28] MEDS: Insulin LISPRO 300 UNITS/3 ML VIAL SQ SCH ×4 (08:11→19:59)
--- NOTE | 2017-05-28 10:27 | Cardiology Consult Note ---
<Yissel Cedillo - Last Filed: 05/28/17 10:23> Date of Encounter: 05/28/17 Time of Encounter: 07:45 Assessment and Plan (1) Syncope Current Visit: Yes Status: Acute Per cardiology: -Reports syncopal episode yesterday around 1030. -Has pacemaker, medtronic pacemaker interrogated with no arrythmias noted. -Do not suspect cardiac cause of syncope. Qualifiers: Syncope type: unspecified Qualified Code(s): R55 - Syncope and collapse (2) Acute kidney injury Current Visit: Yes Status: Acute Per cardiology: -Creatinine on admission 3.24. -Baseline 1.4-1.7. -Nephrology consulted. -Management per primary and nephrology services. (3) Paroxysmal a-fib Current Visit: No Status: Chronic Per cardiology: -Known PAF. -Currently SR. -On tikosyn, now with AG. -ECG 02/15/17 with SR, HR 73. QT 355/QTc 381ms. -ECG 05/27/17 with Paced rhythm, HR 67. QT 433/QTc 448ms. -ON xarelto for 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. -On beta brisa. -Per discussion with stop tikosyn. Stopped due to AG and QTC greater than 15% change from baseline. Discussed at length with patient regarding discontinuation of medication. -Will consult EP tomorrow. -Ok to continue xarelto 15mg dose, creatinine clearance using ABW 52ml/min, using IBW 41ml/min. -Will continue to monitor. -Close monitoring for arrythmias. (4) Pacemaker Current Visit: No Status: Chronic Per cardiology: -KNown pacemaker for SSS> -Device interrogated with medtronic dual chamber pacemaker, no arrythmias noted , all measurements normal, device functioning normally. -Will continue to monitor. (5) Diastolic dysfunction Current Visit: No Status: Chronic Per cardiology: -Known diastolic dysfunction. -Denies weight gain. -Mild pedal edema noted, much imrpoved from baseline. -Will continue to monitor. (6) Hypokalemia Current Visit: Yes Status: Acute Per cardiology: -K 2.7, replaced per priamry service. -Management per primary service. Discussion w patient/family: The assessment and plan as outlined above was discussed with the patient who expressed understanding and agreement. All questions were answered. Thank you for involving us in the care of your patient. Please call with any questions. Discussed and reviewed with . History of Present Illness Consult date: 05/27/17 Requesting physician: Francy Mcdaniels Consult reason: AG on tikosyn Chief complaint: fall History of present illness: Mr. Issa is a 67 year old male with a arelevant past medical history of HTN, hyperlipidemia, sick sinus syndrome s/p pacemaker, pancreatitis, PAF on tikosyn , s/p a.fib ablation, COPD, CVA. Patient presented to [facility] after a fall at home. Patient states he was sitting on the side of the bed, and then he woke up face down on the floor. Patient does not remember falling. Patient denies dizziness or lightheadedness. Patient states he has been very weak. Pateint denies chest pain. Patient denies palpitations or fluttering. Patient reports some increased shortness of breath. Patient denies weight gain at home. Denies bleeding or blood loss. Past Med Surg Social Fam HX - Past Medical History Attestation: Yes The following information was validated with the patient. Source: patient, old records reviewed Medical history: arthritis, atrial fibrillation, CHF, COPD, coronary artery disease, CVA, GERD, hyperlipidemia, hypertension, pulmonary embolus, syncope, venous stasis, other Psychiatric history: anxiety, depression - Past Surgical History Surgical History: herniorrhaphy, knee replacement, pacemaker/AICD, other - Social History Smoking Status: Former smoker Smokeless Tobacco Status: No Alcohol use: none Drug use: none - Family History Father Adopted: No Family Member Ethnicity: Non- Living Status: Hx Family Cardiac Disorders: No Hx Family Respiratory Disorders: No Hx Family Cancer: Yes Hx Family GI Disorders: No Hx Family Endocrine Disorder: No Hx Family Neuromuscular Disorders: No Hx Family Neurologic Disorders: No Hx Family HEENT Disorders: No Hx Family Autoimmune Disorders: No Mother Adopted: No Family Member Ethnicity: Non- Twin of Family Member: Yes Living Status: Still Living Hx Family Cardiac Disorders: Yes Hx Family Respiratory Disorders: No Hx Family Cancer: Yes (father leukemia) Hx Family GI Disorders: No Hx Family Endocrine Disorder: No Hx Family Neuromuscular Disorders: No Hx Family Neurologic Disorders: No Hx Family HEENT Disorders: No Hx Family Autoimmune Disorders: Yes (arthritis) Medications and Allergies Aspirin Enteric Coated [Aspirin EC] 81 mg PO DAILY #0 10/08/15 [History] Rivaroxaban [Xarelto] 20 mg PO DAILY #0 04/09/15 [History] Trazodone HCl [TraZODone] 150 mg PO HS 12/20/15 [History] Cholecalciferol (Vitamin D3) [Vitamin D3] 1,000 unit PO DAILY 03/12/16 [History] Albuterol Sulfate [Proair Hfa] 2 puff IH Q4H PRN 12/14/16 [History] Atorvastatin [Lipitor] 40 mg PO HS 12/14/16 [History] Furosemide [Lasix] 40 mg PO BID PRN 12/14/16 [History] Gabapentin [Neurontin] 400 mg PO BID 12/14/16 [History] Pantoprazole Sodium [Protonix] 40 mg PO DAILY 12/14/16 [History] Polyethylene Glycol 3350 [MiraLAX Powder Bulk 17.9 Oz] 17 gm PO DAILY PRN [History] Sennosides/Docusate Sodium [Senna-Docusate Sodium Tablet] 1 tab PO BID 12/14/16 [History] Spironolactone [Aldactone] 50 mg PO DAILY 12/14/16 [History] Tizanidine HCl [Zanaflex] 2 mg PO BID 12/14/16 [History] Potassium Chloride [Klor-Con Sprinkle] 20 meq PO BID 02/13/17 [History] DULoxetine [Cymbalta] 30 mg PO DAILY 02/14/17 [History] Tamsulosin [Flomax] 0.4 mg PO DAILY 02/14/17 [History] LORazepam [Ativan] 0.5 mg PO HS PRN #2 02/17/17 [Rx] Acetaminophen [Tylenol Arthritis] 650 mg PO Q4H PRN 05/27/17 [History] Budesonide/Formoterol 160/4.5 [Symbicort 160/4.5] 2 puff IH BID 05/27/17 [ History] Dofetilide [Tikosyn] 375 mcg PO BID 05/27/17 [History] Mag Hydrox/Al Hydrox/Simeth [Maalox] 30 ml PO Q4H PRN 05/27/17 [History] Melatonin 6 mg PO HS PRN 05/27/17 [History] Memantine HCl [Namenda Xr] 28 mg PO DAILY 05/27/17 [History] Metoprolol [Lopressor] 25 mg PO BID 05/27/17 [History] Oxycodone HCl 10 mg PO Q6H PRN 05/27/17 [History] Tiotropium [Spiriva] 18 mcg IH DAILY 05/27/17 [History] 3 Allergy/AdvReac Type Severity Reaction Status Date / Time IVP DYE Allergy Anaphylaxis Uncoded 05/27/17 11:23 All Systems Review: A 10-system review of systems was performed and is negative for pertinent findings except as documented above in the HPI. - Cardiovascular Cardiovascular: as per HPI - Neurological Neurological: syncope Physical Examination Vital Signs, Last 4 Hours Temp Pulse Resp BP Pulse Ox 05/28/17 07:02 97.9 F 67 16 105/73 94 General: Conversant, No Apparent Distress HEENT: Atraumatic, Normocephaly, Mucus Membranes Moist Neck: No JVD, Normal carotid pulses Cardiac: Reg Rate and Rhythm, Normal S1 and S2, No Murmur Lungs: Normal Breath Sounds, No Wheeze, Rales, Rhonchi Neuro: Alert and responsive, No focal deficits noted Abdomen: Soft, Non-Tender Skin: No rashes noted on visualized skin Musculoskeletal: No Chest Wall Tenderness Extremities: No Clubbing, No Cyanosis, Normal Pulses, Other (Mild bilateral pedel edema noted, non-pitting. ) Results 05/28/17 01:02 05/28/17 01:02 Lab Results Impressions Chest X-Ray 05/27/17 12:28 IMPRESSION: No acute process. D/ / Red Dey MD / Red Dey MD Interpreting Provider: Red Dey MD Head CT 05/27/17 12:28 IMPRESSION: 1. No acute intracranial abnormality. 2. Increased right frontal sinusitis. Chronic bilateral maxillary sinus disease. D/ / Naveen Delarosa MD / Naveen Delarosa MD Interpreting Provider: Naveen Delarosa MD Cervical Spine CT 05/27/17 12:29 IMPRESSION: 1. No acute fracture. 2. Multilevel degenerative changes with degenerative 1-2 mm anterolisthesis of C3 with respect to 4. 3. Extensive chronic paranasal sinusitis. D/ / 05/27/2017 13:17:15 Lai Mcallister MD / Trish Francis Interpreting Provider: Lai Mcallister MD Hip X-Ray 05/27/17 12:29 IMPRESSION: No evidence of acute osseous abnormality. Mild bilateral hip osteoarthrosis. D/ / Jose Francisco Dong MD / Jose Francisco Dong MD Interpreting Provider: Jose Francisco Dong MD Retroperitoneum Ultrasound 05/27/17 15:06 IMPRESSION: 1. The bilateral kidneys demonstrate no obstructive uropathy. Bilateral simple benign renal cysts. 2. Postvoid bladder volume 486 mL. D/ : / 05/27/2017 16:41:48 Lai Mcallister MD / Trish Francis Interpreting Provider: Lai Mcallister MD Active Medications Acetaminophen (Tylenol) 650 mg PO Q6HR PRN PRN Reason: Pain Stop: 11/27/17 00:19 Albuterol Sulfate (Proventil Neb) 2.5 mg IH Q2H PRN PRN Reason: Shortness Of Breath/Wheezing Stop: 11/26/17 15:14 Albuterol/Ipratropium (Duoneb) 3 ml IH QIDR SHI Stop: 11/26/17 17:01 Last Admin: 05/28/17 04:21 Dose: 3 ml Aspirin (Aspirin Ec) 81 mg PO DAILY SHI Stop: 11/27/17 09:01 Last Admin: 05/28/17 08:05 Dose: 81 mg Atorvastatin Calcium (Lipitor) 40 mg PO HS SHI Stop: 11/26/17 21:01 Last Admin: 05/27/17 20:57 Dose: 40 mg Budesonide/Formoterol Fumarate (Symbicort) 2 puff IH BIDR SHI PRN Reason: Protocol Stop: 11/26/17 22:01 Last Admin: 05/27/17 22:32 Dose: 2 puff Dextrose/Water (Dextrose 50% (Syg)) 25 ml IVP AD PRN PRN Reason: Hypoglycemia Stop: 11/26/17 15:15 Duloxetine HCl (Cymbalta) 30 mg PO DAILY [facility] Stop: 11/27/17 09:01 Last Admin: 05/28/17 08:05 Dose: 30 mg Gabapentin (Neurontin) 300 mg PO BID [facility] Stop: 11/26/17 21:01 Last Admin: 05/28/17 08:05 Dose: 300 mg Glucagon (Glucagen) 1 mg IM ONCE PRN PRN Reason: Hypoglycemia Stop: 11/26/17 15:15 Glucose (Gluctose) 15 gm PO ONCE PRN PRN Reason: Hypoglycemia Stop: 11/26/17 15:15 Glucose (Gluctose) 30 gm PO ONCE PRN PRN Reason: Hypoglycemia Stop: 11/26/17 15:15 Sodium Chloride (0.9 % Sodium Chloride) 1,000 mls @ 60 mls/hr IVC .[id number] [facility] Stop: 05/29/17 00:30 Last Admin: 05/27/17 17:11 Dose: 60 mls/hr Dextrose (Dextrose 5%) 1,000 mls @ 100 mls/hr IVC .Q10H PRN PRN Reason: HYPOGLYCEMIA Stop: 11/26/17 15:15 Levofloxacin/Dextrose (Levaquin Premix 750mg/150 Ml) 750 mg in 150 mls @ 100 mls/hr IVPB Q48H SHI PRN Reason: Protocol Stop: 11/26/17 19:01 Last Admin: 05/27/17 20:58 Dose: 100 mls/hr Insulin Human Lispro (Humalog) 0 units SQ HS SHI PRN Reason: Protocol Stop: 11/26/17 21:01 Last Admin: 05/27/17 20:58 Dose: Not Given Insulin Human Lispro (Humalog) 0 units SQ TIDAC SHI PRN Reason: Protocol Stop: 11/26/17 16:31 Last Admin: 05/28/17 08:11 Dose: Not Given Lorazepam (Ativan) 0.5 mg PO HS PRN PRN Reason: Insomnia Stop: 11/26/17 21:12 Last Admin: 05/27/17 22:03 Dose: 0.5 mg Metoprolol Tartrate (Lopressor) 12.5 mg PO BID [facility] Stop: 11/26/17 21:01 Last Admin: 05/28/17 08:06 Dose: 12.5 mg Naloxone HCl (Narcan) 0.4 mg IVP Q2MIN PRN PRN Reason: Opioid Reversal Stop: 11/26/17 14:11 Omeprazole (Prilosec) 20 mg PO DAILY [facility]I Stop: 11/27/17 09:01 Last Admin: 05/28/17 08:06 Dose: 20 mg Oxycodone HCl (Roxicodone) 10 mg PO Q6H PRN PRN Reason: Pain Last Admin: 05/28/17 08:05 Dose: 10 mg Potassium Chloride (Potassium Chloride) 20 meq PO BID [facility] Stop: 11/26/17 21:01 Last Admin: 05/28/17 08:05 Dose: 20 meq Rivaroxaban (Xarelto) 15 mg PO 1800 [facility] Stop: 11/26/17 18:01 Last Admin: 05/27/17 18:59 Dose: 15 mg Tiotropium [place] (Spiriva) 18 mcg IH DAILY [facility] Stop: 11/27/17 09:01 Last Admin: 05/28/17 08:07 Dose: Not Given Laboratory Tests 02/16/17 02/17/17 05/27/17 03:52 03:26 13:23 WBC 14.2 H Hgb Potassium Creatinine 1.61 H 1.40 H Troponin I 05/27/17 05/27/17 05/27/17 13:23 13:23 19:09 WBC Hgb Potassium Creatinine 3.24 H Troponin I 0.01 0.00 05/28/17 05/28/17 05/28/17 01:02 01:02 01:02 WBC 12.0 H Hgb 14.7 Potassium 2.7 L Creatinine 2.41 H Troponin I 0.00 05/28/17 07:10 WBC Hgb Potassium Creatinine Troponin I 0.01 - Imaging and Cardiology Chest Xray: report reviewed Echo: report reviewed - EKG Interpretation EKG results cardiology: personally reviewed (ECG with paced rhythm, HR 67. QT 433/QTc 448ms.), other (Telemetry reviewed with average HR previous 12 hours noted to be 64, paced rhythm. PVCs and PACs noted.) Consult Discharge Plan - Plan [facility]errals: [facility]Primary Care Provider[facility] - <Tony Brown Olive - Last Filed: 05/28/17 11:33> Date of Encounter: 05/28/17 - Attending Attestation I have personally performed a face to face evaluation on this patient. I have reviewed and agree with the care plan. History and Exam by me shows: 1. Paroxysmal A fib : Post failed AFiob ablation, now in NSR, on Tikosyn, with worsening renal impairment, QT prolonged, will hold for now, continue to monitor Qt, heart rate. Consult EPS ( Dr. Justice) in AM. 2. Systemic 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: Pt is on Xaralto for primary stroke risk reduction with PAF, may need to reconsider with fall yesterday. 3. LOC: pt had event approx 10 am yesterday when he lost consciousness, awoke facedown on floor, Pacer show NST during time period of syncopal episodes, these events do not appear to be arrhythmic in etiology. 4. Acute kidney injury, new elevation in creatinine, up to 3.45 from average 1.5 , await nephrology consult, evaluation , Assessment and Plan Discussion w patient/family: The assessment and plan as outlined above was discussed with the patient and/or family members who expressed understanding and agreement. All questions were answered. Thank you for involving us in the care of your patient. Please call with any questions. History of Present Illness History of present illness: Mr. Issa is a 67 year old male All Systems Review: A 10-system review of systems was performed and is negative for pertinent findings except as documented above in the HPI. Results 05/28/17 01:02 05/28/17 01:02 Lab Results 05/27/17 05/28/17 05/28/17 19:09 01:02 01:02 WBC 12.0 H Hgb 14.7 Hct 44.2 Plt Count 259 INR APTT Sodium Potassium Chloride Carbon Dioxide BUN Creatinine Glucose Calcium Magnesium Total Bilirubin AST ALT Alkaline Phosphatase Troponin I 0.00 0.00 B-Natriuretic Peptide 05/28/17 05/28/17 05/28/17 01:02 01:02 01:02 WBC Hgb Hct Plt Count INR 1.9 APTT 35.9 Sodium 137 Potassium 2.7 L Chloride 90 L Carbon Dioxide 36 H BUN 73 H Creatinine 2.41 H Glucose 133 H Calcium 9.4 Magnesium 2.7 H Total Bilirubin 0.4 AST 24 ALT 49 Alkaline Phosphatase 112 Troponin I B-Natriuretic Peptide 05/28/17 07:10 WBC Hgb Hct Plt Count INR APTT Sodium Potassium Chloride Carbon Dioxide BUN Creatinine Glucose Calcium Magnesium Total Bilirubin AST ALT Alkaline Phosphatase Troponin I 0.01 B-Natriuretic Peptide
[2017-05-28] MEDS: 0.9 % Sodium Chloride 1,000 ML IVC SCH (10:35)
[2017-05-28] MEDS: Budesonide/Formoterol 160/4.5 MDI IH SCH ×2 (11:24→22:32)
--- NOTE | 2017-05-28 15:17 | Nephrology Consult Note ---
Date of Encounter: 05/28/17 Time of Encounter: 13:00 Assessment and Plan (1) Acute kidney injury Current Visit: Yes Status: Acute Elevated SCr in the setting ofr diuretic use and hypotension as well as a syncopal event Agree with holding all diuretics for now Agree with volume repletion with IVF Agree with US of kidney, results reviewed and unremarkable Will check urine sodium,urea, creatinine and eosinophils Avoid nephrotoxins if possible UOP great at 1000cc overnight and another 1000cc already today No acute indication for [employer] (2) Hypokalemia Current Visit: Yes Status: Acute Potassium worse despite repletion, not adequate yet Will add another 40MEq potassium to 20mEq already ordered and repeat level this pm Magnesium level noted at 2.7 History of Present Illness - Reason for Consult Consult date: 05/28/17 Acute Kidney Injury, Chronic Kidney Disease, hyperkalemia Requesting physician: Francy Mcdaniels - History of Present Illness 67 y o male with PMH of Afib, COPD, diastolic CHF and CVA admitted yesterday s/ p fall found with elevated SCr at 3.41, GFR 19 with potassium of 2.9. Baseline SCr appears to be around 1.2-1.5, GFR 50s earlier this year. Pt seen and examined reports recent hospital stay at [place] where his diuretic regimen was changed. His lasix was dropped from 80mg bid to 40mg bid and he was also on spironolactone. He denies taking metalozone even though mentioned by primary team as one of his diuretics. No NSAIDs use Past Med Surg Social Fam HX - Past Medical History Medical history: arthritis, atrial fibrillation, CHF, COPD, coronary artery disease, CVA, GERD, hyperlipidemia, hypertension, pulmonary embolus, syncope, venous stasis, other Psychiatric history: anxiety, depression - Past Surgical History Surgical History: herniorrhaphy, knee replacement, pacemaker/AICD, other - Social History Smoking Status: Former smoker Smokeless Tobacco Status: No Alcohol use: none Drug use: none - Family History Father Adopted: No Family Member Ethnicity: Non- Living Status: Hx Family Cardiac Disorders: No Hx Family Respiratory Disorders: No Hx Family Cancer: Yes Hx Family GI Disorders: No Hx Family Endocrine Disorder: No Hx Family Neuromuscular Disorders: No Hx Family Neurologic Disorders: No Hx Family HEENT Disorders: No Hx Family Autoimmune Disorders: No Mother Adopted: No Family Member Ethnicity: Non- Twin of Family Member: Yes Living Status: Still Living Hx Family Cardiac Disorders: Yes Hx Family Respiratory Disorders: No Hx Family Cancer: Yes (father leukemia) Hx Family GI Disorders: No Hx Family Endocrine Disorder: No Hx Family Neuromuscular Disorders: No Hx Family Neurologic Disorders: No Hx Family HEENT Disorders: No Hx Family Autoimmune Disorders: Yes (arthritis) Medications and Allergies Aspirin Enteric Coated [Aspirin EC] 81 mg PO DAILY #0 04/09/15 [History] Rivaroxaban [Xarelto] 20 mg PO DAILY #0 04/09/15 [History] Trazodone HCl [TraZODone] 150 mg PO HS 12/20/15 [History] Cholecalciferol (Vitamin D3) [Vitamin D3] 1,000 unit PO DAILY 03/12/16 [History] Albuterol Sulfate [Proair Hfa] 2 puff IH Q4H PRN 12/14/16 [History] Atorvastatin [Lipitor] 40 mg PO HS 12/14/16 [History] Furosemide [Lasix] 40 mg PO BID PRN 12/14/16 [History] Gabapentin [Neurontin] 400 mg PO BID 12/14/16 [History] Pantoprazole Sodium [Protonix] 40 mg PO DAILY 12/14/16 [History] Polyethylene Glycol 3350 [MiraLAX Powder Bulk 17.9 Oz] 17 gm PO DAILY PRN [History] Sennosides/Docusate Sodium [Senna-Docusate Sodium Tablet] 1 tab PO BID 12/14/16 [History] Spironolactone [Aldactone] 50 mg PO DAILY 12/14/16 [History] Tizanidine HCl [Zanaflex] 2 mg PO BID 12/14/16 [History] Potassium Chloride [Klor-Con Sprinkle] 20 meq PO BID 02/13/17 [History] DULoxetine [Cymbalta] 30 mg PO DAILY 02/14/17 [History] Tamsulosin [Flomax] 0.4 mg PO DAILY 02/14/17 [History] LORazepam [Ativan] 0.5 mg PO HS PRN #2 02/17/17 [Rx] Acetaminophen [Tylenol Arthritis] 650 mg PO Q4H PRN 05/27/17 [History] Budesonide/Formoterol 160/4.5 [Symbicort 160/4.5] 2 puff IH BID 05/27/17 [ History] Dofetilide [Tikosyn] 375 mcg PO BID 05/27/17 [History] Mag Hydrox/Al Hydrox/Simeth [Maalox] 30 ml PO Q4H PRN 05/27/17 [History] Melatonin 6 mg PO HS PRN 05/27/17 [History] Memantine HCl [Namenda Xr] 28 mg PO DAILY 05/27/17 [History] Metoprolol [Lopressor] 25 mg PO BID 05/27/17 [History] Oxycodone HCl 10 mg PO Q6H PRN 05/27/17 [History] Tiotropium [Spiriva] 18 mcg IH DAILY 05/27/17 [History] 3 Allergy/AdvReac Type Severity Reaction Status Date / Time IVP DYE Allergy Anaphylaxis Uncoded 05/27/17 11:23 Review of Systems All Systems: reviewed and no additional remarkable complaints except as stated ( 10 systems reviewed) Exam - Vital Signs Vital signs: Initial Vital Signs Temp Pulse Resp BP Pulse Ox 97.5 F L 62 20 95/67 90 05/27/17 11:12 05/27/17 11:12 05/27/17 11:12 05/27/17 11:12 05/27/17 11:12 Vital Signs - Last 8 Hours Temp Pulse Resp BP Pulse Ox 05/28/17 11:24 16 97 05/28/17 11:17 97.8 F 64 20 115/78 96 Intake and Output 05/27/17 05/28/17 05/28/17 23:59 07:59 15:59 Intake Total 240 / 240 800 / 800 1237 / 1237 Output Total 1000 / 1000 1000 / 1000 750 / 750 Balance -760 / -760 -200 / -200 487 / 487 Intake: IV Fluids 1000 / 1000 0.9 % Sodium Chloride 1,000 ML 1000 / 1000 @ 60 mls/hr IVC .[id number] [facility] Rx #:[id number] Oral 240 / 240 800 / 800 237 / 237 Output: Urine 1000 / 1000 1000 / 1000 750 / 750 Other: Meal No fluids given. Water/ice. Lunch Percent of Meal Consumed 100% 100% # Urine Diapers 1 Blood Glucose* 143 121 150 - General Appearance General appearance: well-developed, well-nourished (NAD) EENT: ATNC, mucous membranes moist Neck: no JVD, supple Respiratory: clear Cardiology: no edema, normal S1, normal S2 Gastrointestinal: no tenderness, no guarding, obese Integumentary: warm and dry Neurologic: no focal deficit Musculoskeletal: no deformities Psychiatric: mood/affect appropriate, cooperative Results - Lab Results 05/28/17 01:02 05/28/17 01:02 Most recent lab results Calcium 9.4 mg/dL (8.6-10.8) 05/28/17 01:02 Phosphorus 2.5 mg/dL (2.3-4.7) 05/28/17 01:02 Magnesium 2.7 mg/dL (1.6-2.6) H 05/28/17 01:02 Consult Discharge Plan - Plan Referrals: [facility] [Primary Care Provider] -
[2017-05-28 16:31] LABS: Calcium 9.3 mg/dL (8.6-10.8)
[2017-05-28] MEDS: *HR* Rivaroxaban 15 MG TABLET PO SCH (17:56)
--- NOTE | 2017-05-28 18:05 | Internal Med Progress Note ---
Date of Encounter: 05/28/17 Time of Encounter: 12:39 - Assessment and plan (1) Hypovolemia dehydration Current Visit: Yes Status: Acute Assessment and plan: Secondary to diuretics. Likely patient required more due to poor compliance/ diet. Gentle hydration was given that is set to stop after 2L. Diuretics held. Serial pulmonary exams to monitor fluid status. (2) Hypokalemia Current Visit: Yes Status: Acute Assessment and plan: Currently being replaced. (3) Acute kidney injury Current Visit: Yes Status: Acute Assessment and plan: Nephrology consulted, recommendations appreciated. Diuretics held, renal ultrasound negative. Recheck BMP this afternoon. (4) Chronic respiratory failure with hypoxia Current Visit: No Status: Chronic Assessment and plan: Continue O2 supplement to titrate O2 sats (while awake) to >92%. (5) Physical deconditioning Current Visit: No Status: Chronic Assessment and plan: Patient has been admitted in hospitals frequently in past few months and is now week. PT/OT consulted. (6) Paroxysmal a-fib Current Visit: No Status: Chronic Assessment and plan: Patient on Xarelto and Metoprolol, currently rate controlled. (7) CAD (coronary atherosclerotic disease) Current Visit: No Status: Chronic Qualifiers: Coronary Disease-Associated Artery/Lesion type: unspecified vessel or lesion type [place] vs. transplanted heart: [place] heart Associated angina: without angina Qualified Code(s): I25.10 - Atherosclerotic heart disease of [place] coronary artery without angina pectoris (8) Pacemaker Current Visit: No Status: Chronic (9) Diastolic dysfunction Current Visit: No Status: Chronic (10) COPD (chronic obstructive pulmonary disease) Current Visit: Yes Status: Acute Assessment and plan: He has been expressing increasing shortness of breath on exertion as well as nonproductive cough. We will continue with bronchodilators as well as oxygen titrating to maintain SPO2 greater than 92%. Continue Levaquin. Tikosyn has been discontinued by [facility] but we will still monitor QTc as Levaquin can alter as well. Qualifiers: COPD type: unspecified COPD Qualified Code(s): J44.9 - Chronic obstructive pulmonary disease, unspecified (11) Diabetes mellitus Current Visit: Yes Status: Acute Assessment and plan: Diabetic/Cardiac diet ordered, but patient's family is bringing in outside food. Gave brief education on compliance and treatment in hospital. Family verbalized understanding. May need ISS and basal coverage, will monitor. Qualifiers: Diabetes mellitus type: type 2 Diabetes mellitus complication status: with kidney complications Diabetes mellitus complication detail: with chronic kidney disease Diabetes mellitus long term care phlebotomist insulin use: without long term care phlebotomist use Chronic kidney disease stage: stage 3 (moderate) Qualified Code(s): E11.22 - Type 2 diabetes mellitus with diabetic chronic kidney disease; N18.3 - Chronic kidney disease, stage 3 (moderate); N18.3 - Chronic kidney disease, stage 3 (moderate) (12) DVT prophylaxis Current Visit: Yes Status: Acute (13) Obesity (BMI 30.0-34.9) Current Visit: No Status: Chronic - Subjective Interval history: Patient's son present in room. Patient is eating [employer] for lunch. No acute events since admission. He admits to SOB but dizziness improved. - Constitutional Vitals: Temp Pulse Resp BP Pulse Ox 98.2 F 67 16 123/82 95 05/28/17 15:29 05/28/17 15:29 05/28/17 16:40 05/28/17 15:29 05/28/17 16:40 General appearance: Present: A&O X 3, answers questions appropriately Exam: - Head Head exam: Present: atraumatic, normocephalic - Eye Eye exam: Present: PERRL, conjuntiva pink, sclera anicteric Pupils: Present: PERRL - Neck Neck exam general surgery: Present: supple, trachea midline. Absent: lymphadenopathy - Respiratory Respiratory exam: Present: CTAB. Absent: accessory muscle use, rales, rhonchi, wheezes - Cardiovascular Cardiovascular exam: Present: RRR, +S1, +S2. Absent: diastolic murmur, gallop, rubs, systolic murmur - GI/Abdominal GI/Abdominal exam: Present: normal bowel sounds, soft, no peritoneal signs. Absent: distended, tenderness - Extremities Exam Extremities exam: Present: warm, radial pulses palpable and symmetrical. Absent : calf tenderness, cyanotic, pedal edema - Neurological Exam Neurological exam: Present: CN II-XII intact, oriented X3, no focal deficits. Absent: pronater drift, facial droop, speech deficit - Skin Skin exam: Present: dry, intact Internal Medicine: Result - Labs CBC & Chem 7: 05/28/17 01:02 05/28/17 15:48 Labs: Short CBC 05/28/17 Range/Units 01:02 WBC 12.0 H (4.3-11.1) K/mcL Hgb 14.7 (12.9-16.9) g/dL Hct 44.2 (37.5-50.1) % Plt Count 259 (140-400) K/mcL Neutrophils # 9.3 H (1.6-8.9) K/mcL BMP 05/28/17 05/28/17 01:02 15:48 Sodium 137 136 Potassium 2.7 L 3.0 L Chloride 90 L 89 L Carbon Dioxide 36 H 37 H BUN 73 H 58 H Creatinine 2.41 H 1.99 H Glucose 133 H 162 H Calcium 9.4 9.3 Cardiac Enzymes 05/27/17 05/28/17 05/28/17 Range/Units 19:09 01:02 07:10 Troponin I 0.00 0.00 0.01 (0-0.03) ng/mL Liver Function 05/28/17 Range/Units 01:02 Total Bilirubin 0.4 (0.2-1.2) mg/dL AST 24 (5-34) Units/L ALT 49 (0-55) Units/L Alkaline Phosphatase 112 (38-126) Units/L Albumin 3.4 L (3.5-5.0) g/dL - ABG Interpretation ABG results: PT/INR, D-dimer PT 20.3 Seconds (9.4-12.1) H 05/28/17 01:02 Consult Discharge Plan - Plan [facility]: [facility] [Primary Care Provider[facility] -
[2017-05-28] MEDS: *HR* LORazepam 0.5 MG TABLET PO PRN (22:08)
[2017-05-28] MEDS: Melatonin 3 MG TABLET PO PRN (22:08)
[2017-05-28] MEDS: traZODone 50 MG TABLET PO SCH (22:08)
[2017-05-29] MEDS: *HR* OxyCODONE Immed Rel 5 MG TABLET PO PRN ×2 (04:30→19:46)
[2017-05-29] MEDS: Ipratropium/Albuterol Neb 3 ML IH SCH ×4 (05:39→22:39)
[2017-05-29] MEDS: Tiotropium 18 MCG inhalation IH SCH (08:05)
[2017-05-29] MEDS ORDERED: Acetaminophen 325 MG TABLET PO PRN (08:07)
[2017-05-29] MEDS: Aspirin Enteric Coated 81 MG Tablet PO SCH (08:14)
[2017-05-29] MEDS: Gabapentin 300 MG CAPSULE PO SCH ×2 (08:14→21:26)
[2017-05-29] MEDS: Insulin LISPRO 300 UNITS/3 ML VIAL SQ SCH ×4 (08:33→20:57)
--- NOTE | 2017-05-29 10:53 | Electrocardiograph Report ---
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
[2017-05-29] MEDS: Budesonide/Formoterol 160/4.5 MDI IH SCH ×2 (11:21→22:39)
--- NOTE | 2017-05-29 11:25 | Electrophysiology Consult Note ---
<Yissel Cedillo - Last Filed: 05/29/17 11:26> Date of Encounter: 05/29/17 Time of Encounter: 08:00 Assessment and Plan (1) Syncope Current Visit: Yes Status: Acute Per EP: -Reported syncopal episode prior to arrival. -Has pacemaker, medtronic pacemaker interrogated with no arrythmias noted. -Do not suspect cardiac cause of syncope. Qualifiers: Syncope type: unspecified Qualified Code(s): R55 - Syncope and collapse (2) Acute kidney injury Current Visit: Yes Status: Acute Per EP: -Creatinine on admission 3.24. -Baseline 1.4-1.7. -Nephrology consulted. -Creatinine today 1.99. -Management per primary and nephrology services. (3) Paroxysmal a-fib Current Visit: No Status: Chronic Per EP: -Known PAF. -Recently started on tikosyn per [place]. Was on 375 mcg dose. -Patient now with AG creatinine on admission 3.24, today 1.99. -ECG 02/15/17 with SR, HR 73. QT 355/QTc 381ms. -ECG 05/27/17 with Paced rhythm, HR 67. QT 433/QTc 448ms. -ON xarelto for 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. -On beta brisa. -Will discuss and review with Dr.John Justice regarding recommendations for tikosyn or other intervention for atrial fibrillation. (4) Pacemaker Current Visit: No Status: Chronic Per EP: -KNown pacemaker for SSS. -Device interrogated with medtronic dual chamber pacemaker, no arrythmias noted , all measurements normal, device functioning normally. (5) Hypokalemia Current Visit: Yes Status: Acute Per EP: -K 2.7, replaced per priry service. -Management per primary service. Discussion w patient/family: The assessment and plan as outlined above was discussed with the patient who expressed understanding and agreement. All questions were answered. Thank you for involving us in the care of your patient. Please call with any questions. Discussed and reviewed with Dr.John Justice. History of Present Illness Consult date: 05/29/17 Requesting physician: Remy Sheikh Consult reason: a.fib, tikosyn, AG Chief complaint: fall, syncopal event History of present illness: Mr. Issa is a 67 year old male with a relevant past medical history of HTN, hyperlipidemia, sick sinus syndrome s/p pacemaker, pancreatitis, PAF on tikosyn , s/p a.fib ablation, COPD, CVA. Electrophysiology has been asked to see and evaluate patient for PAF on tikosyn now with AG. Patient denies palpitations or fluttering. States shortness of breath is improved today. Past Med Surg Social Fam HX - Past Medical History Attestation: Yes The following information was validated with the patient. Source: patient, old records reviewed Medical history: arthritis, atrial fibrillation, CHF, COPD, coronary artery disease, CVA, GERD, hyperlipidemia, hypertension, pulmonary embolus, syncope, venous stasis, other Psychiatric history: anxiety, depression - Past Surgical History Surgical History: herniorrhaphy, knee replacement, pacemaker/AICD, other - Social History Smoking Status: Former smoker Smokeless Tobacco Status: No Alcohol use: none Drug use: none - Family History Father Adopted: No Family Member Ethnicity: Non- Living Status: Hx Family Cardiac Disorders: No Hx Family Respiratory Disorders: No Hx Family Cancer: Yes Hx Family GI Disorders: No Hx Family Endocrine Disorder: No Hx Family Neuromuscular Disorders: No Hx Family Neurologic Disorders: No Hx Family HEENT Disorders: No Hx Family Autoimmune Disorders: No Mother Adopted: No Family Member Ethnicity: Non- Twin of Family Member: Yes Living Status: Still Living Hx Family Cardiac Disorders: Yes Hx Family Respiratory Disorders: No Hx Family Cancer: Yes (father leukemia) Hx Family GI Disorders: No Hx Family Endocrine Disorder: No Hx Family Neuromuscular Disorders: No Hx Family Neurologic Disorders: No Hx Family HEENT Disorders: No Hx Family Autoimmune Disorders: Yes (arthritis) Medications and Allergies Aspirin Enteric Coated [Aspirin EC] 81 mg PO DAILY #0 04/09/15 [History] Rivaroxaban [Xarelto] 20 mg PO DAILY #0 04/09/15 [History] Trazodone HCl [TraZODone] 150 mg PO HS 12/20/15 [History] Cholecalciferol (Vitamin D3) [Vitamin D3] 1,000 unit PO DAILY 03/12/16 [History] Albuterol Sulfate [Proair Hfa] 2 puff IH Q4H PRN 12/14/16 [History] Atorvastatin [Lipitor] 40 mg PO HS 12/14/16 [History] Furosemide [Lasix] 40 mg PO BID PRN 12/14/16 [History] Gabapentin [Neurontin] 400 mg PO BID 12/14/16 [History] Pantoprazole Sodium [Protonix] 40 mg PO DAILY 12/14/16 [History] Polyethylene Glycol 3350 [MiraLAX Powder Bulk 17.9 Oz] 17 gm PO DAILY PRN [History] Sennosides/Docusate Sodium [Senna-Docusate Sodium Tablet] 1 tab PO BID 12/14/16 [History] Spironolactone [Aldactone] 50 mg PO DAILY 12/14/16 [History] Tizanidine HCl [Zanaflex] 2 mg PO BID 12/14/16 [History] Potassium Chloride [Klor-Con Sprinkle] 20 meq PO BID 02/13/17 [History] DULoxetine [Cymbalta] 30 mg PO DAILY 02/14/17 [History] Tamsulosin [Flomax] 0.4 mg PO DAILY 02/14/17 [History] LORazepam [Ativan] 0.5 mg PO HS PRN #2 02/17/17 [Rx] Acetaminophen [Tylenol Arthritis] 650 mg PO Q4H PRN 05/27/17 [History] Budesonide/Formoterol 160/4.5 [Symbicort 160/4.5] 2 puff IH BID 05/27/17 [ History] Dofetilide [Tikosyn] 375 mcg PO BID 05/27/17 [History] Mag Hydrox/Al Hydrox/Simeth [Maalox] 30 ml PO Q4H PRN 05/27/17 [History] Melatonin 6 mg PO HS PRN 05/27/17 [History] Memantine HCl [Namenda Xr] 28 mg PO DAILY 05/27/17 [History] Metoprolol [Lopressor] 25 mg PO BID 05/27/17 [History] Oxycodone HCl 10 mg PO Q6H PRN 05/27/17 [History] Tiotropium [Spiriva] 18 mcg IH DAILY 05/27/17 [History] 3 Allergy/AdvReac Type Severity Reaction Status Date / Time IVP DYE Allergy Anaphylaxis Uncoded 05/27/17 11:23 All Systems Review: A 10-system review of systems was performed and is negative for pertinent findings except as documented above in the HPI. - Cardiovascular Cardiovascular: as per HPI - Neurological Neurological: syncope Physical Examination Vital Signs Temperature 97.5 F L 05/27/17 11:12 Pulse Rate 62 05/27/17 11:12 Respiratory Rate 20 05/27/17 11:12 Blood Pressure 95/67 05/27/17 11:12 O2 Sat by Pulse Oximetry 90 05/27/17 11:12 Temperature 97.7 F 05/29/17 11:00 Pulse Rate 67 05/29/17 11:00 Respiratory Rate 16 05/29/17 11:00 Blood Pressure 106/75 05/29/17 11:00 O2 Sat by Pulse Oximetry 95 05/29/17 11:00 Oxygen Delivery Oxygen Delivery Room Air General: Conversant, No Apparent Distress HEENT: Atraumatic, Normocephaly, Mucus Membranes Moist Neck: No JVD, Normal carotid pulses Cardiac: Reg Rate and Rhythm, Normal S1 and S2, No Murmur Lungs: Normal Breath Sounds, No Wheeze, Rales, Rhonchi Neuro: Alert and responsive, No focal deficits noted Abdomen: Soft, Non-Tender Skin: No rashes noted on visualized skin Musculoskeletal: No Chest Wall Tenderness Extremities: No Clubbing, No Cyanosis, Normal Pulses, Other (Mild bilateral pedal edema noted, non-pitting. ) Results 05/28/17 01:02 05/28/17 15:48 Lab Results Active Medications Acetaminophen (Tylenol) 650 mg PO Q6HR PRN PRN Reason: Mild Pain (1-3)/Headache Stop: 11/27/17 00:19 Albuterol Sulfate (Proventil Neb) 2.5 mg IH Q2H PRN PRN Reason: Shortness Of Breath/Wheezing Stop: 11/26/17 15:14 Albuterol/Ipratropium (Duoneb) 3 ml IH QIDR [facility] Stop: 11/26/17 17:01 Last Admin: 05/29/17 11:21 Dose: 3 ml Aspirin (Aspirin Ec) 81 mg PO DAILY [facility] Stop: 11/27/17 09:01 Last Admin: 05/29/17 08:14 Dose: 81 mg Atorvastatin Calcium (Lipitor) 40 mg PO HS [facility] Stop: 11/26/17 21:01 Last Admin: 05/28/17 22:08 Dose: 40 mg Budesonide/Formoterol Fumarate (Symbicort) 2 puff IH BIDR [facility] PRN Reason: Protocol Stop: 11/26/17 22:01 Last Admin: 05/29/17 11:21 Dose: 2 puff Dextrose/Water (Dextrose 50% (Syg)) 25 ml IVP AD PRN PRN Reason: Hypoglycemia Stop: 11/26/17 15:15 Duloxetine HCl (Cymbalta) 30 mg PO DAILY [facility] Stop: 11/27/17 09:01 Last Admin: 05/29/17 08:14 Dose: 30 mg Gabapentin (Neurontin) 300 mg PO BID [facility] Stop: 11/26/17 21:01 Last Admin: 05/29/17 08:14 Dose: 300 mg Glucagon (Glucagen) 1 mg IM ONCE PRN PRN Reason: Hypoglycemia Stop: 11/26/17 15:15 Glucose (Gluctose) 15 gm PO ONCE PRN PRN Reason: Hypoglycemia Stop: 11/26/17 15:15 Glucose (Gluctose) 30 gm PO ONCE PRN PRN Reason: Hypoglycemia Stop: 11/26/17 15:15 Dextrose (Dextrose 5%) 1,000 mls @ 100 mls/hr IVC .Q10H PRN PRN Reason: HYPOGLYCEMIA Stop: 11/26/17 15:15 Insulin Human Lispro (Humalog) 0 units SQ HS [facility] PRN Reason: Protocol Stop: 11/26/17 21:01 Last Admin: 05/28/17 19:59 Dose: Not Given Insulin Human Lispro (Humalog) 0 units SQ TIDAC [facility] PRN Reason: Protocol Stop: 11/26/17 16:31 Last Admin: 05/29/17 08:33 Dose: 2 units Levofloxacin (Levaquin) 750 mg PO Q24H [facility] Stop: 11/28/17 19:01 Lorazepam (Ativan) 0.5 mg PO HS PRN PRN Reason: Insomnia Stop: 11/26/17 21:12 Last Admin: 05/28/17 22:08 Dose: 0.5 mg Melatonin (Melatonin) 6 mg PO HS PRN PRN Reason: Insomnia Stop: 11/27/17 21:01 Last Admin: 05/28/17 22:08 Dose: 6 mg Metoprolol Tartrate (Lopressor) 12.5 mg PO BID [facility] Stop: 11/26/17 21:01 Last Admin: 05/29/17 08:14 Dose: 12.5 mg Naloxone HCl (Narcan) 0.4 mg IVP Q2MIN PRN PRN Reason: Opioid Reversal Stop: 11/26/17 14:11 Omeprazole (Prilosec) 20 mg PO DAILY [facility] Stop: 11/27/17 09:01 Last Admin: 05/29/17 08:14 Dose: 20 mg Oxycodone HCl (Roxicodone) 10 mg PO Q6H PRN PRN Reason: Moderate to Severe Pain (4-10) Potassium Chloride (Potassium Chloride) 20 meq PO BID [facility] Stop: 11/26/17 21:01 Last Admin: 05/29/17 08:14 Dose: 20 meq Rivaroxaban (Xarelto) 15 mg PO 1800 [facility] Stop: 11/26/17 18:01 Last Admin: 05/28/17 17:56 Dose: 15 mg Trazodone HCl (Trazodone) 150 mg PO HS [facility] Stop: 11/27/17 21:01 Last Admin: 05/28/17 22:08 Dose: 150 mg Laboratory Tests 05/27/17 05/27/17 05/27/17 13:23 13:23 19:09 WBC Hgb Potassium Creatinine 3.24 H Troponin I 0.01 0.00 05/28/17 05/28/17 05/28/17 01:02 01:02 01:02 WBC 12.0 H Hgb 14.7 Potassium 2.7 L Creatinine 2.41 H Troponin I 0.00 05/28/17 07:10 WBC Hgb Potassium Creatinine Troponin I 0.01 - Imaging and Cardiology Chest Xray: report reviewed Echo: report reviewed - EKG Interpretation EKG results cardiology: personally reviewed (ECG with paced rhythm, HR 67. QT 433, QTc 448ms.), other (Telemetry reviewed with average HR previous 12 hours noted to be 73, sinus rhythm. PVCs and PACs noted.) Consult Discharge Plan - Plan [facility]errals: [facility] [Primary Care Provider[facility] - <Dakota Justice - Last Filed: 05/29/17 15:50> Date of Encounter: 05/29/17 - Attending Attestation I have personally performed a face to face evaluation on this patient. I have reviewed and agree with the care plan. History and Exam by me shows: Recently started on tikosyn which is now contraindicated due to progessive renal failure. Would be a candidate for amio when tikosyn washes out but need to review records of recent initiation of tikosyn. Assessment and Plan Discussion w patient/family: The assessment and plan as outlined above was discussed with the patient and/or family members who expressed understanding and agreement. All questions were answered. Thank you for involving us in the care of your patient. Please call with any questions. History of Present Illness History of present illness: Mr. Issa is a 67 year old male All Systems Review: A 10-system review of systems was performed and is negative for pertinent findings except as documented above in the HPI. Results 05/28/17 01:02 05/28/17 15:48 Lab Results 05/28/17 15:48 Sodium 136 Potassium 3.0 L Chloride 89 L Carbon Dioxide 37 H BUN 58 H Creatinine 1.99 H Glucose 162 H Calcium 9.3
[2017-05-29] MEDS: *HR* Rivaroxaban 15 MG TABLET PO SCH (16:57)
[2017-05-29] MEDS: levoFLOXacin 750 MG TABLET PO SCH (19:46)
[2017-05-29] MEDS: traZODone 50 MG TABLET PO SCH (21:26)
[2017-05-29] MEDS: Melatonin 3 MG TABLET PO PRN (21:26)
[2017-05-29] MEDS: *HR* LORazepam 0.5 MG TABLET PO PRN (21:26)
[2017-05-30] MEDS: Ipratropium/Albuterol Neb 3 ML IH SCH ×3 (04:13→16:23)
[2017-05-30 06:06] LABS: Basophils % 0.4 %; Eosinophils # 0.3 K/mcL (0.0-0.6); Eosinophils % 2.7 %; Hematocrit 40.1 % (37.5-50.1); Hemoglobin 13.3 g/dL (12.9-16.9); Immature Granulocytes % 0.6 % (0-4); Lymphocytes # 1.3 K/mcL (0.6-4.6); Lymphocytes % 13.6 %; Mean Corpuscular HGB Conc 33.2 g/dL (31.6-35.5); Mean Corpuscular Hemoglobin 27.9 pg (28.0-33.3); Mean Corpuscular Volume 84.2 fL (83.0-100.0); Mean Platelet Volume 9.7 fL (9.4-12.4); Monocytes % 10.5 %; Neutrophils # 6.9 K/mcL (1.6-8.9); Platelet Count 252 K/mcL (140-400); Red Blood Count 4.76 M/mcL (4.19-5.50); Red Cell Distribution Width 14.5 % (11.5-14.5); Segmented Neutrophils % 72.2 %
[2017-05-30 06:25] LABS: BUN/Creatinine Ratio 31 (6-26); Calcium 9.3 mg/dL (8.6-10.8); Carbon Dioxide 30 mEq/L (19-29); Chloride 93 mEq/L (98-109); Glucose 114 mg/dL (70-99); Osmolality,Calculated 293 (280-300); Potassium 3.2 mEq/L (3.5-4.5); Sodium 136 mEq/L (136-145); eGFR For African Americans > 60 (> 60); eGFR For Non-African Americans 53 (> 60)
[2017-05-30 06:27] LABS: Blood Urea Nitrogen 42 mg/dL (8-26)
[2017-05-30] MEDS: Insulin LISPRO 300 UNITS/3 ML VIAL SQ SCH ×4 (06:54→21:24)
[2017-05-30] MEDS: Aspirin Enteric Coated 81 MG Tablet PO SCH (09:36)
[2017-05-30] MEDS: Gabapentin 300 MG CAPSULE PO SCH ×2 (09:36→21:37)
--- NOTE | 2017-05-30 09:46 | Nephrology Progress Note ---
Date of Encounter: 05/30/17 Time of Encounter: 09:43 - Assessment and Plan (1) Acute kidney injury Current Visit: Yes Status: Acute Scr 1.35, GFR 31 Kidney function back to baseline Nephrology signing off case. Thank you for this referral Patient to have BMP 1 week after discharge Follow up in office in 3-4 weeks (2) CKD (chronic kidney disease) Current Visit: Yes Status: Acute Baseline Scr 1.2-1.5 see above Qualifiers: Chronic kidney disease stage: stage 3 (moderate) Qualified Code(s): N18.3 - Chronic kidney disease, stage 3 (moderate) (3) Hypokalemia Current Visit: Yes Status: Acute Improving-K+ 3.2 Subjective Principal diagnosis: AG, hypokalemia Interval history: Patient seen and examined. Doing well, no complaints. Objective - Vital Signs Vital signs: Vital Signs Temp Pulse Resp BP Pulse Ox 05/30/17 06:48 97.6 F 71 16 107/69 95 05/30/17 03:25 98 F 70 15 118/71 92 05/30/17 00:27 98.3 F 76 16 106/73 92 05/29/17 22:39 16 94 05/29/17 20:52 98.2 F 79 16 113/78 93 05/29/17 16:23 15 94 05/29/17 15:00 97.8 F 71 17 112/75 94 05/29/17 11:21 17 95 05/29/17 11:00 97.7 F 67 16 106/75 95 Intake and Output 05/29/17 05/30/17 05/30/17 23:59 07:59 15:59 Intake Total 0 / 0 Output Total 1849 / 1849 Balance -1849 / -1849 Intake: Oral 0 / 0 Output: Urine 1849 Other: Blood Glucose* 167 124 - General Appearance General appearance: Present: well-developed, well-nourished EENT: Present: ATNC, mucous membranes moist, hearing intact Neck: Present: supple Respiratory: Present: clear Cardiology: Present: no edema, normal S1, normal S2 Gastrointestinal: Present: no tenderness, no guarding Integumentary: Present: warm and dry Neurologic: Present: alert and oriented x3 Psychiatric: Present: mood/affect appropriate, cooperative - Lab 05/30/17 05:33 05/30/17 05:33 Most recent lab results Calcium 9.3 mg/dL (8.6-10.8) 05/30/17 05:33 Phosphorus 2.5 mg/dL (2.3-4.7) 05/28/17 01:02 Magnesium 2.7 mg/dL (1.6-2.6) H 05/28/17 01:02 Urine Creatinine 52 mg/dL 05/29/17 16:11 Urine Sodium 57.0 mEq/L 05/29/17 16:11 Consult Discharge Plan - Plan [facility]errals: [facility] [Primary Care Provider] -
--- NOTE | 2017-05-30 10:11 | Internal Med Progress Note ---
<Ray Wheeler - Last Filed: 05/30/17 10:06> Date of Encounter: 05/30/17 Time of Encounter: 10:06 - Assessment and plan (1) Hypovolemia dehydration Current Visit: Yes Status: Acute Assessment and plan: Secondary to diuretics Also poor compliance/diet Gentle hydration was given and diuretics held Serial pulmonary exams to monitor fluid status (2) Hypokalemia Current Visit: Yes Status: Acute Assessment and plan: K+ = 2.9 on admission Received some IV K+, currently getting KCl 20 mEq BID with increase to 3.2 (3) Acute kidney injury Current Visit: Yes Status: Acute Assessment and plan: Nephrology consulted, recommendations appreciated Diuretics held, IVF, renal ultrasound negative, UOP improved Kidney function back to baseline and nephrology signing off Recommend BMP 1 week after discharge and outpatient follow-up 3-4 weeks (4) Paroxysmal a-fib Current Visit: No Status: Chronic Assessment and plan: Patient on Metoprolol, currently rate controlled Okay to continue Xarelto per cardiology (5) Chronic respiratory failure with hypoxia Current Visit: No Status: Chronic Assessment and plan: Has been stable, O2 saturation has been >= 92% usually on 2 L Continue O2 supplement to titrate O2 sats (while awake) to >92% (6) CAD (coronary atherosclerotic disease) Current Visit: No Status: Chronic Assessment and plan: Stable Qualifiers: Coronary Disease-Associated Artery/Lesion type: unspecified vessel or lesion type [place] vs. transplanted heart: [place] heart Associated angina: without angina Qualified Code(s): I25.10 - Atherosclerotic heart disease of [place] coronary artery without angina pectoris (7) COPD (chronic obstructive pulmonary disease) Current Visit: Yes Status: Acute Assessment and plan: He has been expressing increasing shortness of breath on exertion as well as nonproductive cough Continue bronchodilators as well as oxygen Continue Levaquin (Tikosyn has been discontinued by [facility] but we will still monitor QTc as Levaquin can alter as well) Qualifiers: COPD type: unspecified COPD Qualified Code(s): J44.9 - Chronic obstructive pulmonary disease, unspecified (8) Physical deconditioning Current Visit: No Status: Chronic Assessment and plan: Frequent hospital admissions in past few months and is now weak PT/OT consulted who recommended inpatient rehabilitation/swing bed at discharge (9) Diabetes mellitus Current Visit: Yes Status: Acute Assessment and plan: Diabetic/Cardiac diet ordered, but patient's family is bringing in outside food. Gave brief education on compliance and treatment in hospital. Family verbalized understanding. May need ISS and basal coverage, blood glucose has been mildly elevated up until now. Qualifiers: Diabetes mellitus type: type 2 Diabetes mellitus complication status: with kidney complications Diabetes mellitus complication detail: with chronic kidney disease Diabetes mellitus supervisor intermediates insulin use: without supervisor intermediates use Chronic kidney disease stage: stage 3 (moderate) Qualified Code(s): E11.22 - Type 2 diabetes mellitus with diabetic chronic kidney disease; N18.3 - Chronic kidney disease, stage 3 (moderate); N18.3 - Chronic kidney disease, stage 3 (moderate) (10) DVT prophylaxis Current Visit: Yes Status: Acute - Subjective Interval history: 67-year-old male with h/o CVA most recently about a month ago, A. fib with ablation, PE, pacemaker with AICD, COPD. Has health aides at home. Presented with increasing weakness and confusion. He also had a recent fall but CT head/ neck negative for intracranial abnormalities or fractures. CXR = normal. Admitted for dehydration and AG. - Constitutional Vitals: Temp Pulse Resp BP Pulse Ox 97.6 F 71 16 107/69 95 05/30/17 06:48 05/30/17 06:48 05/30/17 06:48 05/30/17 06:48 05/30/17 06:48 General appearance: Present: A&O X 3, answers questions appropriately Internal Medicine: Result - Labs CBC & Chem 7: 05/30/17 05:33 05/30/17 05:33 Labs: Short CBC 05/30/17 Range/Units 05:33 WBC 9.6 (4.3-11.1) K/mcL Hgb 13.3 (12.9-16.9) g/dL Hct 40.1 (37.5-50.1) % Plt Count 252 (140-400) K/mcL Neutrophils # 6.9 (1.6-8.9) K/mcL BMP 05/30/17 05:33 Sodium 136 Potassium 3.2 L Chloride 93 L Carbon Dioxide 30 H BUN 42 H D Creatinine 1.35 H Glucose 114 H Calcium 9.3 - ABG Interpretation ABG results: PT/INR, D-dimer PT 20.3 Seconds (9.4-12.1) H 05/28/17 01:02 Consult Discharge Plan - Plan [facility] Provider[facility] - <En Madrigalrewaju T - Last Filed: 05/30/17 15:31> Date of Encounter: 05/30/17 - Constitutional Vitals: Temp Pulse Resp BP Pulse Ox 98.2 F 76 17 121/79 94 05/30/17 11:24 05/30/17 11:24 05/30/17 11:24 05/30/17 11:24 05/30/17 11:24 Internal Medicine: Result - Labs CBC & Chem 7: 05/30/17 05:33 05/30/17 05:33 Labs: Short CBC 05/30/17 Range/Units 05:33 WBC 9.6 (4.3-11.1) K/mcL Hgb 13.3 (12.9-16.9) g/dL Hct 40.1 (37.5-50.1) % Plt Count 252 (140-400) K/mcL Neutrophils # 6.9 (1.6-8.9) K/mcL BMP 05/30/17 05:33 Sodium 136 Potassium 3.2 L Chloride 93 L Carbon Dioxide 30 H BUN 42 H D Creatinine 1.35 H Glucose 114 H Calcium 9.3 - ABG Interpretation ABG results: PT/INR, D-dimer PT 20.3 Seconds (9.4-12.1) H 05/28/17 01:02 - Attending Attestation I independently saw and examined this patient on 05/30/17, plan of care is as detailed in the resident physician's documentation [id number] admitted for eval and management of syncope, Afib, AG on CKD, He has a PMH of CHF and COPD, [place], Home O2 dependent, CAD, Hx of CVA with residual deficits- Diplopia and RUE weakness Clinical exam is remarkable for RUE weakness. Labs reviewed: K 3.2. Renal function continues to improve off IVF. Micro no growth Restart HCTZ, replace K Rest as in resident physician's documentation
--- NOTE | 2017-05-30 10:34 | Electrophysiology ProgressNote ---
Date of Encounter: 05/30/17 Time of Encounter: 08:30 Assessment and Plan (1) Syncope Current Visit: Yes Status: Acute Per EP: -Reported syncopal episode prior to arrival. -Has pacemaker, medtronic pacemaker interrogated with no arrythmias noted. -Do not suspect cardiac cause of syncope. Qualifiers: Qualified Code(s): R55 - Syncope and collapse (2) Acute kidney injury Current Visit: Yes Status: Acute Per EP: -Creatinine on admission 3.24. -Baseline 1.4-1.7. -Nephrology consulted. -Creatinine today 1.35. -Management per primary and nephrology services. (3) Paroxysmal a-fib Current Visit: No Status: Chronic Per EP: -Known PAF. -Recently started on tikosyn per [facility]. Was on 375 mcg dose. -Patient now with AG creatinine on admission 3.24, today 1.35. -ECG 02/15/17 with SR, HR 73. QT 355/QTc 381ms. -ECG 05/27/17 with Paced rhythm, HR 67. QT 433/QTc 448ms. -ON xarelto for 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. -On beta brisa. -Awaiting results from [facility] from recent hospital admission and tikosyn initiation prior to any recommendations. Discussed need for records with patient 's RN. (4) Pacemaker Current Visit: No Status: Chronic Per EP: -KNown pacemaker for SSS. -Device interrogated with medtronic dual chamber pacemaker, no arrythmias noted , all measurements normal, device functioning normally. (5) Hypokalemia Current Visit: Yes Status: Acute Per EP: -K 3.2 today. On oral replacement. -Management per primary service. Discussion w patient/family: The assessment and plan as outlined above was discussed with the patient who expressed understanding and agreement. All questions were answered. Thank you for involving us in the care of your patient. Please call with any questions. Discussed and reviewed with Dr.John Justice. Subjective Principal diagnosis: AG, hypokalemia Interval history: Patient states he feels well this morning. Denies complaints. Patient is concerned regarding anti-arrythmic therapy for atrial fibrillation. Objective Vital Signs, Last 4 Hours Temp Pulse Resp BP Pulse Ox 05/30/17 06:48 97.6 F 71 16 107/69 95 General: Conversant, No Apparent Distress HEENT: Atraumatic, Normocephaly, Mucus Membranes Moist Neck: No JVD, Normal carotid pulses Cardiac: Reg Rate and Rhythm, Normal S1 and S2, No Murmur Lungs: Normal Breath Sounds, No Wheeze, Rales, Rhonchi Neuro: Alert and responsive, No focal deficits noted Abdomen: Soft, Non-Tender Skin: No rashes noted on visualized skin Musculoskeletal: No Chest Wall Tenderness Extremities: No Clubbing, No Cyanosis, Normal Pulses, Other (Mild bilateral pedal edema noted, non-pitting. ) Results 05/30/17 05:33 05/30/17 05:33 Lab Results Active Medications Acetaminophen (Tylenol) 650 mg PO Q6HR PRN PRN Reason: Mild Pain (1-3)/Headache Stop: 11/27/17 00:19 Albuterol Sulfate (Proventil Neb) 2.5 mg IH Q2H PRN PRN Reason: Shortness Of Breath/Wheezing Stop: 11/26/17 15:14 Albuterol/Ipratropium (Duoneb) 3 ml IH QIDR [facility] Stop: 11/26/17 17:01 Last Admin: 05/30/17 04:13 Dose: Not Given Aspirin (Aspirin Ec) 81 mg PO DAILY [facility] Stop: 11/27/17 09:01 Last Admin: 05/30/17 09:36 Dose: 81 mg Atorvastatin Calcium (Lipitor) 40 mg PO HS [facility] Stop: 11/26/17 21:01 Last Admin: 05/29/17 21:26 Dose: 40 mg Budesonide/Formoterol Fumarate (Symbicort) 2 puff IH BIDR SHI PRN Reason: Protocol Stop: 11/26/17 22:01 Last Admin: 05/29/17 22:39 Dose: 2 puff Dextrose/Water (Dextrose 50% (Syg)) 25 ml IVP AD PRN PRN Reason: Hypoglycemia Stop: 11/26/17 15:15 Duloxetine HCl (Cymbalta) 30 mg PO DAILY [facility] Stop: 11/27/17 09:01 Last Admin: 05/30/17 09:34 Dose: 30 mg Gabapentin (Neurontin) 300 mg PO BID [facility] Stop: 11/26/17 21:01 Last Admin: 05/30/17 09:36 Dose: 300 mg Glucagon (Glucagen) 1 mg IM ONCE PRN PRN Reason: Hypoglycemia Stop: 11/26/17 15:15 Glucose (Gluctose) 15 gm PO ONCE PRN PRN Reason: Hypoglycemia Stop: 11/26/17 15:15 Glucose (Gluctose) 30 gm PO ONCE PRN PRN Reason: Hypoglycemia Stop: 11/26/17 15:15 Dextrose (Dextrose 5%) 1,000 mls @ 100 mls/hr IVC .Q10H PRN PRN Reason: HYPOGLYCEMIA Stop: 11/26/17 15:15 Insulin Human Lispro (Humalog) 0 units SQ HS SHI PRN Reason: Protocol Stop: 11/26/17 21:01 Last Admin: 05/29/17 20:57 Dose: Not Given Insulin Human Lispro (Humalog) 0 units SQ TIDAC SHI PRN Reason: Protocol Stop: 11/26/17 16:31 Last Admin: 05/30/17 06:54 Dose: Not Given Levofloxacin (Levaquin) 750 mg PO Q24H [facility] Stop: 11/28/17 19:01 Last Admin: 05/29/17 19:46 Dose: 750 mg Lorazepam (Ativan) 0.5 mg PO HS PRN PRN Reason: Insomnia Stop: 11/26/17 21:12 Last Admin: 05/29/17 21:26 Dose: 0.5 mg Melatonin (Melatonin) 6 mg PO HS PRN PRN Reason: Insomnia Stop: 11/27/17 21:01 Last Admin: 05/29/17 21:26 Dose: 6 mg Metoprolol Tartrate (Lopressor) 12.5 mg PO BID [facility] Stop: 11/26/17 21:01 Last Admin: 05/30/17 09:35 Dose: 12.5 mg Naloxone HCl (Narcan) 0.4 mg IVP Q2MIN PRN PRN Reason: Opioid Reversal Stop: 11/26/17 14:11 Omeprazole (Prilosec) 20 mg PO DAILY [facility] Stop: 11/27/17 09:01 Last Admin: 05/30/17 09:36 Dose: 20 mg Oxycodone HCl (Roxicodone) 10 mg PO Q6H PRN PRN Reason: Moderate to Severe Pain (4-10) Last Admin: 05/29/17 19:46 Dose: 10 mg Potassium Chloride (Potassium Chloride) 20 meq PO BID [facility] Stop: 11/26/17 21:01 Last Admin: 05/30/17 09:34 Dose: 20 meq Rivaroxaban (Xarelto) 20 mg PO 1700 [facility] Stop: 11/29/17 17:01 Trazodone HCl (Trazodone) 150 mg PO HS [facility] Stop: 11/27/17 21:01 Last Admin: 05/29/17 21:26 Dose: 150 mg Laboratory Tests 05/27/17 05/30/17 05/30/17 13:23 05:33 05:33 Hgb 13.3 Potassium 3.2 L Creatinine 3.24 H 1.35 H - Imaging and Cardiology Chest Xray: report reviewed Echo: report reviewed - EKG Interpretation EKG results cardiology: other (Telemetry reviewed with average HR previous 12 hours noted to be 74, sinus rhythm. PVCs and PACs noted.) Consult Discharge Plan - Plan [facility]: [facility] [Primary Care Provider] -
[2017-05-30] MEDS: Budesonide/Formoterol 160/4.5 MDI IH SCH (10:42)
[2017-05-30] MEDS: *HR* OxyCODONE Immed Rel 5 MG TABLET PO PRN ×2 (12:57→21:53)
[2017-05-30] MEDS: *HR* Rivaroxaban 10 MG TABLET PO SCH (18:04)
[2017-05-30] MEDS: levoFLOXacin 750 MG TABLET PO SCH (18:04)
--- NOTE | 2017-05-30 20:50 | Event Note ---
Date of Encounter: 05/30/17 Time of Encounter: 19:15 Received a page from 2A regarding Mr. Issa for concerns of blurry vision. I evaluated the patient and he states that since he had a patch placed on his right eye today, his vision has been blurry in the left eye. He then told me that he was speaking with his on the telephone just prior and was having difficulty with his speech, he knew what he wanted to say but could not get the words out and his noticed this. I examined the patient and he is in no acute distress, was alert and oriented to full name, name of hospital and city, and month/year but not day, he knew it was just after [place]. Patient was able to answer questions appropriately. He had a gauze patch on his right eye which was removed and bilateral pupils were equally round and reactive to light. I held some writing in front of his face and he remarked that it seemed more blurry than normal, worse in his left eye. Peripheral vision was diminished on the right and patient had difficulty with gaze to the right but remaining extraocular movement was normal. There was no ptosis. He had some decreased sensation to touch on the right side of his face, right upper extremity, and right lower extremity, strength in patient's right upper and right lower extremities was 4/5, (5/5 contralaterally). Patient was able to raise his palate and strength with shoulder shrug was equal bilaterally, tongue protrusion was midline. [id number] testing was normal bilaterally. There was no pronator drift Patient had a recent CVA and he was able to recall that this was 4 weeks ago ( states he was treated at [facility]). He was asked if the symptoms have been present since his recent stroke or rather if they are new and he stated that the right-sided weakness has been present since his recent stroke but he thinks the blurred vision and difficulty with speech are new I discussed the findings with attending physician Hunter Braxton who kindly took over the case
--- NOTE | 2017-05-30 21:25 | Event Note ---
Date of Encounter: 05/30/17 Time of Encounter: 08:00 Stroke alert called for expression aphasia, blurry vision right eye since around 630. Unknown baseline but probably some L sided weakness. Discussed case with [facility] neurology who rec MRI w/o contrast in a.m Not candidate for intervention CT head w/o contrast wnl
[2017-05-30] MEDS: traZODone 50 MG TABLET PO SCH (21:37)
[2017-05-30] MEDS: Melatonin 3 MG TABLET PO PRN (21:53)
[2017-05-30] MEDS: *HR* LORazepam 0.5 MG TABLET PO PRN (21:53)
[2017-05-31] MEDS: Budesonide/Formoterol 160/4.5 MDI IH SCH ×3 (00:04→23:26)
[2017-05-31] MEDS: Ipratropium/Albuterol Neb 3 ML IH SCH ×5 (00:04→23:25)
[2017-05-31 04:51] LABS: Basophils # 0.1 K/mcL (0.0-0.2); Basophils % 0.5 %; Eosinophils # 0.3 K/mcL (0.0-0.6); Eosinophils % 3.3 %; Hematocrit 40.8 % (37.5-50.1); Hemoglobin 13.4 g/dL (12.9-16.9); Immature Granulocytes % 0.5 % (0-4); Lymphocytes # 1.4 K/mcL (0.6-4.6); Lymphocytes % 15.2 %; Mean Corpuscular HGB Conc 32.8 g/dL (31.6-35.5); Mean Corpuscular Hemoglobin 27.7 pg (28.0-33.3); Mean Corpuscular Volume 84.3 fL (83.0-100.0); Mean Platelet Volume 9.7 fL (9.4-12.4); Monocytes % 10.7 %; Neutrophils # 6.6 K/mcL (1.6-8.9); Platelet Count 244 K/mcL (140-400); Red Blood Count 4.84 M/mcL (4.19-5.50); Red Cell Distribution Width 14.6 % (11.5-14.5); Segmented Neutrophils % 69.8 %
[2017-05-31 04:57] LABS: BUN/Creatinine Ratio 26 (6-26); Blood Urea Nitrogen 36 mg/dL (8-26); Calcium 9.3 mg/dL (8.6-10.8); Carbon Dioxide 32 mEq/L (19-29); Chloride 93 mEq/L (98-109); Glucose 121 mg/dL (70-99); Osmolality,Calculated 288 (280-300); Potassium 3.3 mEq/L (3.5-4.5); Sodium 134 mEq/L (136-145); eGFR For African Americans > 60 (> 60); eGFR For Non-African Americans 51 (> 60)
[2017-05-31] MEDS: Insulin LISPRO 300 UNITS/3 ML VIAL SQ SCH ×4 (07:39→21:00)
[2017-05-31] MEDS: Aspirin Enteric Coated 81 MG Tablet PO SCH (10:16)
[2017-05-31] MEDS: Gabapentin 300 MG CAPSULE PO SCH ×2 (10:17→20:59)
--- NOTE | 2017-05-31 10:18 | Cardiology Progress Note ---
Date of Encounter: 05/31/17 Time of Encounter: 08:00 Assessment and Plan (1) Syncope Current Visit: Yes Status: Acute Per EP: -Reported syncopal episode prior to arrival. -Has pacemaker, medtronic pacemaker interrogated with no arrythmias noted. -Do not suspect cardiac cause of syncope. Qualifiers: Syncope type: unspecified Qualified Code(s): R55 - Syncope and collapse (2) Acute kidney injury Current Visit: Yes Status: Acute Per EP: -Creatinine on admission 3.24. -Baseline 1.4-1.7. -Nephrology consulted. -Creatinine today 1.38. -Management per primary and nephrology services. (3) Paroxysmal a-fib Current Visit: No Status: Chronic Per EP: -Known PAF. -Recently started on tikosyn per [facility]. Was on 375 mcg dose. -Patient now with AG creatinine on admission 3.24, today 1.35. -ECG 02/15/17 with SR, HR 73. QT 355/QTc 381ms. -ECG 05/27/17 with Paced rhythm, HR 67. QT 433/QTc 448ms. -ECG today with SR, HR 70. QT 327, QTc 347ms. -ON xarelto for 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. -On beta brisa. -Can consider initiation of amiodarone at this. Will discuss and review with Dr.John Justice and patient. (4) Pacemaker Current Visit: No Status: Chronic Per EP: -KNown pacemaker for SSS. -Device interrogated with medtronic dual chamber pacemaker, no arrythmias noted , all measurements normal, device functioning normally. (5) Hypokalemia Current Visit: Yes Status: Acute Per EP: -K 3.3 today. On oral replacement. -Management per primary service. Discussion w patient/family: The assessment and plan as outlined above was discussed with the patient who expressed understanding and agreement. All questions were answered. Thank you for involving us in the care of your patient. Please call with any questions. Discussed and reviewed with Dr.John Justice and Subjective Principal diagnosis: AG, hypokalemia Interval history: Patient states he feels well this morning. Denies complaints. Patient is concerned regarding anti-arrythmic therapy for atrial fibrillation. Per review of records, patient had some slurred speech last night and blurred vision. Patient states symptoms improved today. Objective Vital Signs, Last 4 Hours Temp Pulse Resp BP Pulse Ox 05/31/17 07:01 98.1 F 73 18 112/74 93 General: Conversant, No Apparent Distress HEENT: Atraumatic, Normocephaly, Mucus Membranes Moist Neck: No JVD, Normal carotid pulses Cardiac: Reg Rate and Rhythm, Normal S1 and S2, No Murmur Lungs: Normal Breath Sounds, No Wheeze, Rales, Rhonchi Neuro: Alert and responsive, No focal deficits noted Abdomen: Soft, Non-Tender Skin: No rashes noted on visualized skin Musculoskeletal: No Chest Wall Tenderness Extremities: No Clubbing, No Cyanosis, Normal Pulses, Other (Mild bilateral pedal edema noted, non-pitting. ) Results 05/31/17 04:33 05/31/17 04:33 Lab Results Impressions Head CT 05/30/17 20:20 IMPRESSION: No acute intracranial abnormality. Chronic sinus disease. D/ / Joesph Garza MD / Joesph Garza MD Interpreting Provider: Joesph Garza MD Active Medications Acetaminophen (Tylenol) 650 mg PO Q6HR PRN PRN Reason: Mild Pain (1-3)/Headache Stop: 11/27/17 00:19 Albuterol Sulfate (Proventil Neb) 2.5 mg IH Q2H PRN PRN Reason: Shortness Of Breath/Wheezing Stop: 11/26/17 15:14 Albuterol/Ipratropium (Duoneb) 3 ml IH QIDR [facility] Stop: 11/26/17 17:01 Last Admin: 05/31/17 04:02 Dose: Not Given Aspirin (Aspirin Ec) 81 mg PO DAILY [facility] Stop: 11/27/17 09:01 Last Admin: 05/30/17 09:36 Dose: 81 mg Atorvastatin Calcium (Lipitor) 40 mg PO HS [facility] Stop: 11/26/17 21:01 Last Admin: 05/30/17 21:38 Dose: 40 mg Budesonide/Formoterol Fumarate (Symbicort) 2 puff IH BIDR SHI PRN Reason: Protocol Stop: 11/26/17 22:01 Last Admin: 05/31/17 00:04 Dose: Not Given Dextrose/Water (Dextrose 50% (Syg)) 25 ml IVP AD PRN PRN Reason: Hypoglycemia Stop: 11/26/17 15:15 Duloxetine HCl (Cymbalta) 30 mg PO DAILY [facility] Stop: 11/27/17 09:01 Last Admin: 05/30/17 09:34 Dose: 30 mg Gabapentin (Neurontin) 300 mg PO BID [facility] Stop: 11/26/17 21:01 Last Admin: 05/30/17 21:37 Dose: 300 mg Glucagon (Glucagen) 1 mg IM ONCE PRN PRN Reason: Hypoglycemia Stop: 11/26/17 15:15 Glucose (Gluctose) 15 gm PO ONCE PRN PRN Reason: Hypoglycemia Stop: 11/26/17 15:15 Glucose (Gluctose) 30 gm PO ONCE PRN PRN Reason: Hypoglycemia Stop: 11/26/17 15:15 Dextrose (Dextrose 5%) 1,000 mls @ 100 mls/hr IVC .Q10H PRN PRN Reason: HYPOGLYCEMIA Stop: 11/26/17 15:15 Insulin Human Lispro (Humalog) 0 units SQ HS SHI PRN Reason: Protocol Stop: 11/26/17 21:01 Last Admin: 05/30/17 21:24 Dose: Not Given Insulin Human Lispro (Humalog) 0 units SQ TIDAC SHI PRN Reason: Protocol Stop: 11/26/17 16:31 Last Admin: 05/31/17 07:39 Dose: Not Given Levofloxacin (Levaquin) 750 mg PO Q24H [facility] Stop: 11/28/17 19:01 Last Admin: 05/30/17 18:04 Dose: 750 mg Lorazepam (Ativan) 0.5 mg PO HS PRN PRN Reason: Insomnia Stop: 11/26/17 21:12 Last Admin: 05/30/17 21:53 Dose: 0.5 mg Melatonin (Melatonin) 6 mg PO HS PRN PRN Reason: Insomnia Stop: 11/27/17 21:01 Last Admin: 05/30/17 21:53 Dose: 6 mg Metoprolol Tartrate (Lopressor) 12.5 mg PO BID [facility] Stop: 11/26/17 21:01 Last Admin: 05/30/17 21:37 Dose: 12.5 mg Naloxone HCl (Narcan) 0.4 mg IVP Q2MIN PRN PRN Reason: Opioid Reversal Stop: 11/26/17 14:11 Omeprazole (Prilosec) 20 mg PO DAILY [facility] Stop: 11/27/17 09:01 Last Admin: 05/30/17 09:36 Dose: 20 mg Oxycodone HCl (Roxicodone) 10 mg PO Q6H PRN PRN Reason: Moderate to Severe Pain (4-10) Last Admin: 05/30/17 21:53 Dose: 10 mg Potassium Chloride (Potassium Chloride) 20 meq PO BID [facility] Stop: 11/26/17 21:01 Last Admin: 05/30/17 21:38 Dose: 20 meq Rivaroxaban (Xarelto) 20 mg PO 1700 [facility] Stop: 11/29/17 17:01 Last Admin: 05/30/17 18:04 Dose: 20 mg Trazodone HCl (Trazodone) 150 mg PO HS [facility] Stop: 11/27/17 21:01 Last Admin: 05/30/17 21:37 Dose: 150 mg Laboratory Tests 05/31/17 05/31/17 04:33 04:33 Hgb 13.4 Creatinine 1.38 H - Imaging and Cardiology Chest Xray: report reviewed Echo: report reviewed - EKG Interpretation EKG results cardiology: personally reviewed (ECG today with SR, HR 70. QT 327, QTc 347ms.), other (Telemetry reviewed with average HR previous 12 hours noted to be 75, sinus rhythm. PVCs noted.) Consult Discharge Plan - Plan [facility] Care Provider[facility] -
[2017-05-31] MEDS: Sennosides 8.6 MG TABLET PO SCH (12:03)
[2017-05-31] MEDS: *HR* OxyCODONE Immed Rel 5 MG TABLET PO PRN ×2 (12:03→18:11)
--- NOTE | 2017-05-31 15:57 | Event Note ---
Date of Encounter: 05/31/17 Time of Encounter: 09:45 I independently saw and examined this patient on 05/31/17, plan of care is as detailed in the resident physician's documentation [id number] admitted for eval and management of syncope, Afib, AG on CKD, He has a PMH of CHF and COPD, [place], Home O2 dependent, CAD, Hx of CVA with residual deficits- Diplopia and RUE weakness Said to have had some speech deficits with diplopia unwitnessed by night MD but stroke code called and Head CT unremarkable. He cannot have a Brain MRI as he does not have a compatible PCM. He is seen at bedside this morning, with his son at the bedside, he denies any symptoms and states he does not have any symptoms or complains at this time, [facility] Clinical exam is remarkable for RUE weakness. Power 3/5, EOM is intact and pupils are equal and reactive. Chest is CTAB. HS S1, S2 , abdomen is benign, no pedal edema bilaterally Labs reviewed: K 3.3. Renal function continues to improve off IVF. Micro no growth Continue current management, no indication for repeat brain imaging as of now. Amiodarone started by cardio, appreciate eval Rest as in resident physician's documentation
--- NOTE | 2017-05-31 16:18 | Internal Med Progress Note ---
<Asif Jensen - Last Filed: 05/31/17 16:16> Date of Encounter: 05/31/17 Time of Encounter: 16:16 - Assessment and plan (1) Hypovolemia dehydration Current Visit: Yes Status: Resolved Assessment and plan: Likely related underlying diuretic use. Patient responded well to fluid hydration and holding diuretics. Continue to monitor. (2) Acute kidney injury Current Visit: Yes Status: Acute Assessment and plan: Resolved at this time. Likely related to hypovolemia as discussed above. Patient has good urine output. Continue to monitor renal function. (3) Chronic respiratory failure with hypoxia Current Visit: No Status: Chronic Assessment and plan: Patient is saturating in the 90s on his home O2 dose of 2 L. Continue oxygen supplementation. (4) Atrial fibrillation Current Visit: No Status: Acute Assessment and plan: Heart rate is currently under good control. Patient was on Tikosyn prior to arrival however this was held given his acute kidney injury and prolonged QT. Given the concerns for repeat acute kidney injury and toxicity of Tikosyn cardiology is recommended that this be discontinued and the patient be transitioned to amiodarone. Also continue beta brisa. Patient is Xarelto for 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. Qualifiers: Atrial fibrillation type: paroxysmal Qualified Code(s): I48.0 - Paroxysmal atrial fibrillation (5) COPD (chronic obstructive pulmonary disease) Current Visit: Yes Status: Acute Assessment and plan: Stable. No evidence of exacerbation. Continue Symbicort and when necessary short acting bronchodilators. Qualifiers: COPD type: unspecified COPD Qualified Code(s): J44.9 - Chronic obstructive pulmonary disease, unspecified (6) Diabetes mellitus Current Visit: Yes Status: Acute Assessment and plan: Blood sugar under good control. Continue sliding scale insulin. Qualifiers: Diabetes mellitus type: type 2 Diabetes mellitus complication status: with kidney complications Diabetes mellitus complication detail: with chronic kidney disease Diabetes mellitus truck terminal manager insulin use: without truck terminal manager use Chronic kidney disease stage: stage 3 (moderate) Qualified Code(s): E11.22 - Type 2 diabetes mellitus with diabetic chronic kidney disease; N18.3 - Chronic kidney disease, stage 3 (moderate); N18.3 - Chronic kidney disease, stage 3 (moderate) (7) Hemiparesis affecting right side as late effect of cerebrovascular accident Current Visit: Yes Status: Chronic Assessment and plan: Chronic issue for the patient. He is at his baseline neurologic status. Extraocular was called overnight however the patient's recognized deficits appear to be chronic for him. CT of the head was negative. Patient is unable to have an MRI. No Acute deficits. (8) Hypokalemia Current Visit: Yes Status: Acute Assessment and plan: Potassium 3.3 this morning. Continue replacement. No EKG changes. Continue monitor. - Subjective Interval history: Patient seen and examined at bedside. Patient has no complaints at this time. [facility] - Constitutional Vitals: Temp Pulse Resp BP Pulse Ox 97.9 F 17 18 128/74 97 05/31/17 11:36 05/31/17 11:36 05/31/17 11:36 05/31/17 11:36 05/31/17 11:36 General appearance: Present: A&O X 3, answers questions appropriately - Respiratory Respiratory exam: Present: CTAB. Absent: rales, rhonchi, wheezes - Cardiovascular Cardiovascular exam: Present: irregular rhythm. Absent: gallop, rubs, systolic murmur - GI/Abdominal GI/Abdominal exam: Present: normal bowel sounds, soft. Absent: distended, tenderness - Extremities Exam Extremities exam: Present: warm. Absent: pedal edema, tenderness - Neurological Exam Neurological exam: Present: alert, CN II-XII intact, oriented X3 Additional comments: Upper extremity muscle strength 3/5. Internal Medicine: Result - Labs CBC & Chem 7: 05/31/17 04:33 05/31/17 04:33 Labs: Short CBC 05/31/17 Range/Units 04:33 WBC 9.5 (4.3-11.1) K/mcL Hgb 13.4 (12.9-16.9) g/dL Hct 40.8 (37.5-50.1) % Plt Count 244 (140-400) K/mcL Neutrophils # 6.6 (1.6-8.9) K/mcL BMP 05/31/17 04:33 Sodium 134 L Potassium 3.3 L Chloride 93 L Carbon Dioxide 32 H BUN 36 H Creatinine 1.38 H Glucose 121 H Calcium 9.3 - ABG Interpretation ABG results: PT/INR, D-dimer PT 20.3 Seconds (9.4-12.1) H 05/28/17 01:02 - Impressions Impressions Head CT 05/30/17 20:20 IMPRESSION: No acute intracranial abnormality. Chronic sinus disease. D/ / Joesph Garza MD / Joesph Garza MD Interpreting Provider: Joesph Garza MD Consult Discharge Plan - Plan [facility]errals: [facility] [Primary Care Provider] - (will wait for d/c plans. Possible [facility] or ECF placement) <Deric Madrigal T - Last Filed: 05/31/17 16:58> Date of Encounter: 05/31/17 - Constitutional Vitals: Temp Pulse Resp BP Pulse Ox 98.3 F 74 19 118/77 92 05/31/17 16:43 05/31/17 16:43 05/31/17 16:43 05/31/17 16:43 05/31/17 16:43 Internal Medicine: Result - Labs CBC & Chem 7: 05/31/17 04:33 05/31/17 04:33 Labs: Short CBC 05/31/17 Range/Units 04:33 WBC 9.5 (4.3-11.1) K/mcL Hgb 13.4 (12.9-16.9) g/dL Hct 40.8 (37.5-50.1) % Plt Count 244 (140-400) K/mcL Neutrophils # 6.6 (1.6-8.9) K/mcL BMP 05/31/17 04:33 Sodium 134 L Potassium 3.3 L Chloride 93 L Carbon Dioxide 32 H BUN 36 H Creatinine 1.38 H Glucose 121 H Calcium 9.3 - ABG Interpretation ABG results: PT/INR, D-dimer PT 20.3 Seconds (9.4-12.1) H 05/28/17 01:02 - Impressions Impressions Head CT 05/30/17 20:20 IMPRESSION: No acute intracranial abnormality. Chronic sinus disease. D/ / Joesph Garza MD / Joesph Garza MD Interpreting Provider: Joepsh Garza MD - Attending Attestation See my event note
[2017-05-31] MEDS: *HR* Rivaroxaban 10 MG TABLET PO SCH (18:11)
[2017-05-31] MEDS: levoFLOXacin 750 MG TABLET PO SCH (18:11)
[2017-05-31] MEDS: Melatonin 3 MG TABLET PO PRN (20:58)
[2017-05-31] MEDS: *HR* LORazepam 0.5 MG TABLET PO PRN (20:59)
[2017-05-31] MEDS: *HR* Amiodarone 200 MG TABLET PO SCH (20:59)
[2017-05-31] MEDS: traZODone 50 MG TABLET PO SCH (20:59)
[2017-06-01] MEDS: Ipratropium/Albuterol Neb 3 ML IH SCH ×4 (03:30→23:33)
[2017-06-01] MEDS: *HR* OxyCODONE Immed Rel 5 MG TABLET PO PRN (04:43)
[2017-06-01 05:31] LABS: Basophils % 0.4 %; Eosinophils # 0.3 K/mcL (0.0-0.6); Eosinophils % 3.3 %; Hematocrit 40.3 % (37.5-50.1); Hemoglobin 13.1 g/dL (12.9-16.9); Immature Granulocytes % 0.6 % (0-4); Lymphocytes # 1.1 K/mcL (0.6-4.6); Lymphocytes % 11.5 %; Mean Corpuscular HGB Conc 32.5 g/dL (31.6-35.5); Mean Corpuscular Hemoglobin 27.9 pg (28.0-33.3); Mean Corpuscular Volume 85.9 fL (83.0-100.0); Mean Platelet Volume 9.5 fL (9.4-12.4); Monocytes % 10.6 %; Neutrophils # 7.2 K/mcL (1.6-8.9); Platelet Count 221 K/mcL (140-400); Red Blood Count 4.69 M/mcL (4.19-5.50); Red Cell Distribution Width 14.8 % (11.5-14.5); Segmented Neutrophils % 73.6 %
[2017-06-01 05:48] LABS: BUN/Creatinine Ratio 27 (6-26); Blood Urea Nitrogen 37 mg/dL (8-26); Calcium 9.3 mg/dL (8.6-10.8); Carbon Dioxide 30 mEq/L (19-29); Chloride 97 mEq/L (98-109); Glucose 121 mg/dL (70-99); Osmolality,Calculated 292 (280-300); Potassium 3.7 mEq/L (3.5-4.5); Sodium 136 mEq/L (136-145); eGFR For African Americans > 60 (> 60); eGFR For Non-African Americans 52 (> 60)
--- NOTE | 2017-06-01 06:26 | Internal Med Progress Note ---
<Deric Madrigal T - Last Filed: 06/01/17 14:11> Date of Encounter: 06/01/17 - Constitutional Vitals: Temp Pulse Resp BP Pulse Ox 97.7 F 69 18 106/71 95 06/01/17 11:28 06/01/17 11:28 06/01/17 11:28 06/01/17 11:28 06/01/17 11:28 Internal Medicine: Result - Labs CBC & Chem 7: 06/01/17 05:20 06/01/17 05:20 Labs: Short CBC 06/01/17 Range/Units 05:20 WBC 9.8 (4.3-11.1) K/mcL Hgb 13.1 (12.9-16.9) g/dL Hct 40.3 (37.5-50.1) % Plt Count 221 (140-400) K/mcL Neutrophils # 7.2 (1.6-8.9) K/mcL BMP 06/01/17 05:20 Sodium 136 Potassium 3.7 Chloride 97 L Carbon Dioxide 30 H BUN 37 H Creatinine 1.37 H Glucose 121 H Calcium 9.3 - ABG Interpretation ABG results: PT/INR, D-dimer PT 20.3 Seconds (9.4-12.1) H 05/28/17 01:02 Consult Discharge Plan - Plan Referrals: [facility] [Primary Care Provider] - 06/07/17 9:30 am () - Attending Attestation I independently saw and examined this patient on 06/01/17, plan of care is as detailed in the resident physician's documentation [id number] admitted for eval and management of syncope, Afib, AG on CKD, He has a PMH of CHF and COPD, [place], Home O2 dependent, CAD, Hx of CVA with residual deficits- Diplopia and RUE weakness \\ He is seen at bedside this morning, he denies any symptoms and states he does not have any symptoms or complains at this time Clinical exam is remarkable for RUE weakness. Power 3/5, EOM is intact and pupils are equal and reactive. Chest is CTAB. HS S1, S2 , abdomen is benign, no pedal edema bilaterally Labs reviewed: K 3.3. Renal function continues to improve off IVF. Micro no growth Continue current management, cardio eval appreciated. Rest as in resident physician's documentation <Ray Wheeler - Last Filed: 06/01/17 16:52> Date of Encounter: 06/01/17 Time of Encounter: 06:23 - Assessment and plan (1) Hypovolemia dehydration Current Visit: Yes Status: Resolved Assessment and plan: Likely related to underlying diuretic use. Patient responded well to fluid hydration and holding diuretics. Continue to monitor. (2) Hypokalemia Current Visit: Yes Status: Acute Assessment and plan: K+ = 2.9 on admission Patient received replacement and potassium currently normal (3.7) (3) Acute kidney injury Current Visit: Yes Status: Resolved Assessment and plan: Patient is now near baseline. Likely related to hypovolemia as discussed above. Patient has good urine output. Continue to monitor renal function. (4) Paroxysmal a-fib Current Visit: No Status: Chronic Assessment and plan: Appreciate cardiology recommendations Started amiodarone 200 mg twice a day for 1 month, then 200 mg daily Patient also on Metoprolol, rate has been in 70s Okay to continue Xarelto per cardiology (5) Chronic respiratory failure with hypoxia Current Visit: No Status: Chronic Assessment and plan: Patient is saturating in the mid-90s on his home O2 dose of 2 L. Continue oxygen supplementation. (6) CAD (coronary atherosclerotic disease) Current Visit: No Status: Chronic Assessment and plan: Stable Qualifiers: Coronary Disease-Associated Artery/Lesion type: unspecified vessel or lesion type [place] vs. transplanted heart: [place] heart Associated angina: without angina Qualified Code(s): I25.10 - Atherosclerotic heart disease of [place] coronary artery without angina pectoris (7) COPD (chronic obstructive pulmonary disease) Current Visit: Yes Status: Acute Assessment and plan: Stable. No evidence of exacerbation. Continue Symbicort and when necessary short acting bronchodilators. Qualifiers: COPD type: unspecified COPD Qualified Code(s): J44.9 - Chronic obstructive pulmonary disease, unspecified (8) Physical deconditioning Current Visit: No Status: Chronic Assessment and plan: Frequent hospital admissions in past few months and is now weak PT/OT consulted who recommended inpatient rehabilitation/swing bed at discharge (9) Diabetes mellitus Current Visit: Yes Status: Acute Assessment and plan: Blood sugar under good control. Continue sliding scale insulin. Qualifiers: Diabetes mellitus type: type 2 Diabetes mellitus complication status: with kidney complications Diabetes mellitus complication detail: with chronic kidney disease Diabetes mellitus longterm insulin use: without longterm use Chronic kidney disease stage: stage 3 (moderate) Qualified Code(s): E11.22 - Type 2 diabetes mellitus with diabetic chronic kidney disease; N18.3 - Chronic kidney disease, stage 3 (moderate); N18.3 - Chronic kidney disease, stage 3 (moderate) (10) DVT prophylaxis Current Visit: Yes Status: Acute - Subjective Interval history: 67-year-old male with h/o CVA most recently about a month ago, A. fib with ablation, PE, pacemaker with AICD, COPD. Has health aides at home. Presented with increasing weakness and confusion. He also had a recent fall but CT head/ neck negative for intracranial abnormalities or fractures. CXR = normal. Admitted for dehydration and AG. Patient seen and examined at bedside this morning. He states "I am feeling much better today" and denies chest pain, shortness of breath, or new neurologic symptoms, or other new complaints - Constitutional Vitals: Temp Pulse Resp BP Pulse Ox 97.6 F 77 18 99/64 94 05/31/17 23:59 06/01/17 05:00 06/01/17 05:00 06/01/17 05:00 06/01/17 05:00 General appearance: Present: A&O X 3, answers questions appropriately - Respiratory Respiratory exam: Present: CTAB. Absent: accessory muscle use, rales, rhonchi, wheezes - Cardiovascular Cardiovascular exam: Present: gallop, irregular rhythm, rubs. Absent: systolic murmur, tachycardia - Extremities Exam Extremities exam: Present: warm. Absent: pedal edema, tenderness - Neurological Exam Neurological exam: Present: alert, oriented X3, no focal deficits Internal Medicine: Result - Labs CBC & Chem 7: 06/01/17 05:20 06/01/17 05:20 Labs: Short CBC 06/01/17 Range/Units 05:20 WBC 9.8 (4.3-11.1) K/mcL Hgb 13.1 (12.9-16.9) g/dL Hct 40.3 (37.5-50.1) % Plt Count 221 (140-400) K/mcL Neutrophils # 7.2 (1.6-8.9) K/mcL BMP 06/01/17 05:20 Sodium 136 Potassium 3.7 Chloride 97 L Carbon Dioxide 30 H BUN 37 H Creatinine 1.37 H Glucose 121 H Calcium 9.3 - ABG Interpretation ABG results: PT/INR, D-dimer PT 20.3 Seconds (9.4-12.1) H 05/28/17 01:02
[2017-06-01] MEDS: Aspirin Enteric Coated 81 MG Tablet PO SCH (07:23)
[2017-06-01] MEDS: Gabapentin 300 MG CAPSULE PO SCH ×2 (07:23→22:20)
[2017-06-01] MEDS: *HR* Amiodarone 200 MG TABLET PO SCH ×2 (07:24→22:20)
[2017-06-01] MEDS: Sennosides 8.6 MG TABLET PO SCH (07:24)
[2017-06-01] MEDS: Insulin LISPRO 300 UNITS/3 ML VIAL SQ SCH ×4 (08:09→22:21)
--- NOTE | 2017-06-01 10:01 | Cardiology Progress Note ---
Date of Encounter: 06/01/17 Time of Encounter: 09:00 Assessment and Plan (1) Syncope Current Visit: Yes Status: Acute Per EP: -Reported syncopal episode prior to arrival. -Has pacemaker, medtronic pacemaker interrogated with no arrythmias noted. -Do not suspect cardiac cause of syncope. Qualifiers: Syncope type: unspecified Qualified Code(s): R55 - Syncope and collapse (2) Acute kidney injury Current Visit: Yes Status: Resolved Per EP: -Creatinine on admission 3.24. -Baseline 1.4-1.7. -Nephrology consulted. -Creatinine today 1.37, at baseline. -Management per primary and nephrology services. (3) Paroxysmal a-fib Current Visit: No Status: Chronic Per EP: -Known PAF. -Recently started on tikosyn per [place]. Was on 375 mcg dose. -Patient now with AG creatinine on admission 3.24, today 1.37. -ECG 02/15/17 with SR, HR 73. QT 355/QTc 381ms. -ECG 05/27/17 with Paced rhythm, HR 67. QT 433/QTc 448ms. -ECG 05/31/17 with SR, HR 70. QT 327, QTc 347ms. -ECG today with SR, HR 74. QT 323, QTc 350ms. -Started on amiodarone yesterday. -ON xarelto for 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. -On beta brisa. -Continue amiodarone 200mg BID for one month, then decrease to amiodarone 200mg daily. -Per discussion with Dr.John Justice, cardiology will sign off and will follow in outpatient setting. Follow up set. (4) Pacemaker Current Visit: No Status: Chronic Per EP: -KNown pacemaker for SSS. -Device interrogated with medtronic dual chamber pacemaker, no arrythmias noted , all measurements normal, device functioning normally. -Will continue to follow in outpatient setting. (5) Hypokalemia Current Visit: Yes Status: Acute Per EP: -K 3.7 today. On oral replacement. -Management per primary service. Discussion w patient/family: The assessment and plan as outlined above was discussed with the patient who expressed understanding and agreement. All questions were answered. Thank you for involving us in the care of your patient. Please call with any questions. Discussed and reviewed with Dr.John Justice. Subjective Principal diagnosis: AG, hypokalemia Interval history: Patient states he feels well this morning. Patient concerned about problem recurring once he is discharged. Objective Vital Signs, Last 4 Hours Temp Pulse Resp BP Pulse Ox 06/01/17 06:57 97.4 F L 75 18 105/75 93 General: Conversant, No Apparent Distress HEENT: Atraumatic, Normocephaly, Mucus Membranes Moist Neck: No JVD, Normal carotid pulses Cardiac: Reg Rate and Rhythm, Normal S1 and S2, No Murmur Lungs: Normal Breath Sounds, No Wheeze, Rales, Rhonchi Neuro: Alert and responsive, No focal deficits noted Abdomen: Soft, Non-Tender Skin: No rashes noted on visualized skin Musculoskeletal: No Chest Wall Tenderness Extremities: No Clubbing, No Cyanosis, Normal Pulses, Other (Mild bilateral pedal edema noted, non-pitting. ) Results 06/01/17 05:20 06/01/17 05:20 Lab Results Active Medications Acetaminophen (Tylenol) 650 mg PO Q6HR PRN PRN Reason: Mild Pain (1-3)/Headache Stop: 11/27/17 00:19 Albuterol Sulfate (Proventil Neb) 2.5 mg IH Q2H PRN PRN Reason: Shortness Of Breath/Wheezing Stop: 11/26/17 15:14 Albuterol/Ipratropium (Duoneb) 3 ml IH QIDR [facility] Stop: 11/26/17 17:01 Last Admin: 06/01/17 03:30 Dose: Not Given Amiodarone HCl (Cordarone) 200 mg PO BID [facility] Stop: 11/30/17 21:01 Last Admin: 06/01/17 07:24 Dose: 200 mg Aspirin (Aspirin Ec) 81 mg PO DAILY [facility] Stop: 11/27/17 09:01 Last Admin: 06/01/17 07:23 Dose: 81 mg Atorvastatin Calcium (Lipitor) 40 mg PO HS [facility] Stop: 11/26/17 21:01 Last Admin: 05/31/17 20:59 Dose: 40 mg Budesonide/Formoterol Fumarate (Symbicort) 2 puff IH BIDR [facility] PRN Reason: Protocol Stop: 11/26/17 22:01 Last Admin: 05/31/17 23:26 Dose: 2 puff Dextrose/Water (Dextrose 50% (Syg)) 25 ml IVP AD PRN PRN Reason: Hypoglycemia Stop: 11/26/17 15:15 Duloxetine HCl (Cymbalta) 30 mg PO DAILY [facility] Stop: 11/27/17 09:01 Last Admin: 06/01/17 07:24 Dose: 30 mg Gabapentin (Neurontin) 300 mg PO BID [facility] Stop: 11/26/17 21:01 Last Admin: 06/01/17 07:23 Dose: 300 mg Glucagon (Glucagen) 1 mg IM ONCE PRN PRN Reason: Hypoglycemia Stop: 11/26/17 15:15 Glucose (Gluctose) 15 gm PO ONCE PRN PRN Reason: Hypoglycemia Stop: 11/26/17 15:15 Glucose (Gluctose) 30 gm PO ONCE PRN PRN Reason: Hypoglycemia Stop: 11/26/17 15:15 Dextrose (Dextrose 5%) 1,000 mls @ 100 mls/hr IVC .Q10H PRN PRN Reason: HYPOGLYCEMIA Stop: 11/26/17 15:15 Insulin Human Lispro (Humalog) 0 units SQ HS SHI PRN Reason: Protocol Stop: 11/26/17 21:01 Last Admin: 05/31/17 21:00 Dose: Not Given Insulin Human Lispro (Humalog) 0 units SQ TIDAC SHI PRN Reason: Protocol Stop: 11/26/17 16:31 Last Admin: 06/01/17 08:09 Dose: Not Given Levofloxacin (Levaquin) 750 mg PO Q24H [facility] Stop: 11/28/17 19:01 Last Admin: 05/31/17 18:11 Dose: 750 mg Lorazepam (Ativan) 0.5 mg PO HS PRN PRN Reason: Insomnia Stop: 11/26/17 21:12 Last Admin: 05/31/17 20:59 Dose: 0.5 mg Melatonin (Melatonin) 6 mg PO HS PRN PRN Reason: Insomnia Stop: 11/27/17 21:01 Last Admin: 05/31/17 20:58 Dose: 6 mg Metoprolol Tartrate (Lopressor) 12.5 mg PO BID [facility] Stop: 11/26/17 21:01 Last Admin: 06/01/17 07:24 Dose: 12.5 mg Naloxone HCl (Narcan) 0.4 mg IVP Q2MIN PRN PRN Reason: Opioid Reversal Stop: 11/26/17 14:11 Omeprazole (Prilosec) 20 mg PO DAILY [facility] Stop: 11/27/17 09:01 Last Admin: 06/01/17 07:24 Dose: 20 mg Oxycodone HCl (Roxicodone) 10 mg PO Q6H PRN PRN Reason: Moderate to Severe Pain (4-10) Last Admin: 06/01/17 04:43 Dose: 10 mg Potassium Chloride (Potassium Chloride) 20 meq PO BID [facility] Stop: 11/26/17 21:01 Last Admin: 06/01/17 07:24 Dose: 20 meq Rivaroxaban (Xarelto) 20 mg PO 1700 [facility] Stop: 11/29/17 17:01 Last Admin: 05/31/17 18:11 Dose: 20 mg Senna (Senna) 8.6 mg PO DAILY [facility] Stop: 11/30/17 11:31 Last Admin: 06/01/17 07:24 Dose: 8.6 mg Spironolactone (Aldactone) 50 mg PO DAILY [facility] Stop: 11/30/17 11:31 Last Admin: 06/01/17 07:23 Dose: 50 mg Trazodone HCl (Trazodone) 150 mg PO HS [facility] Stop: 11/27/17 21:01 Last Admin: 05/31/17 20:59 Dose: 150 mg Laboratory Tests 06/01/17 06/01/17 05:20 05:20 Hgb 13.1 Potassium 3.7 Creatinine 1.37 H Magnesium 2.0 - Imaging and Cardiology Chest Xray: report reviewed Echo: report reviewed - EKG Interpretation EKG results cardiology: personally reviewed (ECG today with SR, HR 74. QT 323, QTc 350ms.), other (Telemetry reviewed with average HR previous 12 hours noted to be 77, sinus rhythm. PVCs and PACs noted.) Consult Discharge Plan - Plan Referrals: [facility],PCP [Primary Care Provider] - (will wait for d/c plans. Possible [facility] or ECF placement)
[2017-06-01] MEDS: Budesonide/Formoterol 160/4.5 MDI IH SCH ×2 (11:16→23:33)
--- NOTE | 2017-06-01 14:19 | Physician Discharge Referral ---
Home Health/Hosp Referral Info Transfer to: Home Health Provider in Charge Post Discharge: PCP - Diagnosis (1) Hypovolemia dehydration Priority: Primary Status: Resolved (2) Hypokalemia Status: Acute (3) Acute kidney injury Status: Resolved (4) Paroxysmal a-fib Status: Chronic (5) Chronic respiratory failure with hypoxia Priority: Primary Status: Chronic (6) CAD (coronary atherosclerotic disease) Status: Chronic (7) COPD (chronic obstructive pulmonary disease) Status: Acute (8) Physical deconditioning Priority: Primary Status: Chronic (9) Diabetes mellitus Status: Acute (10) DVT prophylaxis Status: Acute - Respiratory Orders Oxygen / L per min (2) Smoking Cessation: Smoking cessation has been advised. For more information, call the [employer] Tobacco Quit Line at 3-829-LZMZ-NOW. - Diet/Nutrition Diet/Nutrition Orders: Cardiac - Activity Activity Orders: Up ad tate - Services Needed Following services are medically necessary services: Nursing, Home Health Aide, Physical Therapy, Occupational Therapy - Transfer Medications Home Medications: Aspirin Enteric Coated [Aspirin EC] 81 mg PO DAILY #0 04/09/15 [History] Rivaroxaban [Xarelto] 20 mg PO DAILY #0 04/09/15 [History] Trazodone HCl [TraZODone] 150 mg PO HS 12/20/15 [History] Cholecalciferol (Vitamin D3) [Vitamin D3] 1,000 unit PO DAILY 03/12/16 [History] Albuterol Sulfate [Proair Hfa] 2 puff IH Q4H PRN 12/14/16 [History] Atorvastatin [Lipitor] 40 mg PO HS 12/14/16 [History] Furosemide [Lasix] 40 mg PO BID PRN 12/14/16 [History] Gabapentin [Neurontin] 400 mg PO BID 12/14/16 [History] Pantoprazole Sodium [Protonix] 40 mg PO DAILY 12/14/16 [History] Polyethylene Glycol 3350 [MiraLAX Powder Bulk 17.9 Oz] 17 gm PO DAILY PRN [History] Sennosides/Docusate Sodium [Senna-Docusate Sodium Tablet] 1 tab PO BID 12/14/16 [History] Spironolactone [Aldactone] 50 mg PO DAILY 12/14/16 [History] Tizanidine HCl [Zanaflex] 2 mg PO BID 12/14/16 [History] Potassium Chloride [Klor-Con Sprinkle] 20 meq PO BID 02/13/17 [History] DULoxetine [Cymbalta] 30 mg PO DAILY 02/14/17 [History] Tamsulosin [Flomax] 0.4 mg PO DAILY 02/14/17 [History] LORazepam [Ativan] 0.5 mg PO HS PRN #2 02/17/17 [Rx] Acetaminophen [Tylenol Arthritis] 650 mg PO Q4H PRN 05/27/17 [History] Budesonide/Formoterol 160/4.5 [Symbicort 160/4.5] 2 puff IH BID 05/27/17 [ History] Dofetilide [Tikosyn] 375 mcg PO BID 05/27/17 [History] Mag Hydrox/Al Hydrox/Simeth [Maalox] 30 ml PO Q4H PRN 05/27/17 [History] Melatonin 6 mg PO HS PRN 05/27/17 [History] Memantine HCl [Namenda Xr] 28 mg PO DAILY 05/27/17 [History] Metoprolol [Lopressor] 25 mg PO BID 05/27/17 [History] Oxycodone HCl 10 mg PO Q6H PRN 05/27/17 [History] Tiotropium [Spiriva] 18 mcg IH DAILY 05/27/17 [History] Allergies/Adverse Reactions: 3 Allergy/AdvReac Type Severity Reaction Status Date / Time IVP DYE Allergy Anaphylaxis Uncoded 05/27/17 11:23 Certification: Further, I certify that my clinical findings support that this patient is homebound (i.e. absences from home require considerable and taxing effort and are for medical reasons or rastafari services or infrequently or short duration when for other reasons) because: Homebound Reason: Patient requires assistance of a person or device to safely leave home, Leaving home requires considerable and taxing effort due to condition Attestation: My signature below is to certify that this patient is under my care and that I, or nurse practitioner, or a physician's residential assistant working with me, has a face-to -face encounter with this patient.
[2017-06-01] MEDS: *HR* Rivaroxaban 10 MG TABLET PO SCH (16:35)
[2017-06-01] MEDS: traZODone 50 MG TABLET PO SCH (22:20)
[2017-06-01] MEDS: levoFLOXacin 750 MG TABLET PO SCH (22:20)
[2017-06-02] MEDS: *HR* LORazepam 0.5 MG TABLET PO PRN (00:27)
[2017-06-02] MEDS: Melatonin 3 MG TABLET PO PRN (00:27)
[2017-06-02] MEDS: Ipratropium/Albuterol Neb 3 ML IH SCH ×2 (04:20→11:06)
[2017-06-02 05:50] LABS: Basophils % 0.4 %; Eosinophils # 0.3 K/mcL (0.0-0.6); Eosinophils % 2.6 %; Hematocrit 39.9 % (37.5-50.1); Immature Granulocytes % 0.5 % (0-4); Lymphocytes # 1.1 K/mcL (0.6-4.6); Lymphocytes % 10.5 %; Mean Corpuscular HGB Conc 32.6 g/dL (31.6-35.5); Mean Corpuscular Hemoglobin 27.5 pg (28.0-33.3); Mean Corpuscular Volume 84.5 fL (83.0-100.0); Mean Platelet Volume 9.6 fL (9.4-12.4); Monocytes # 0.9 K/mcL (0.0-1.3); Monocytes % 8.8 %; Neutrophils # 7.8 K/mcL (1.6-8.9); Platelet Count 229 K/mcL (140-400); Red Blood Count 4.72 M/mcL (4.19-5.50); Red Cell Distribution Width 14.6 % (11.5-14.5); Segmented Neutrophils % 77.2 %
[2017-06-02 06:01] LABS: BUN/Creatinine Ratio 24 (6-26); Blood Urea Nitrogen 31 mg/dL (8-26); Carbon Dioxide 29 mEq/L (19-29); Chloride 99 mEq/L (98-109); Glucose 131 mg/dL (70-99); Osmolality,Calculated 292 (280-300); Potassium 3.8 mEq/L (3.5-4.5); Sodium 137 mEq/L (136-145); eGFR For African Americans > 60 (> 60); eGFR For Non-African Americans 57 (> 60)
[2017-06-02] MEDS: Insulin LISPRO 300 UNITS/3 ML VIAL SQ SCH ×2 (07:54→12:08)
--- NOTE | 2017-06-02 08:04 | Internal Med Progress Note ---
Date of Encounter: 06/02/17 Time of Encounter: 08:01 - Assessment and plan (1) Hypovolemia dehydration Current Visit: Yes Status: Resolved Assessment and plan: Likely related to underlying diuretic use. Patient responded well to fluid hydration and holding diuretics. Continue to monitor. (2) Hypokalemia Current Visit: Yes Status: Acute Assessment and plan: K+ = 2.9 on admission Patient received replacement and potassium currently normal (3.8) (3) Acute kidney injury Current Visit: Yes Status: Resolved Assessment and plan: Patient is now near normal with Cr = 1.27. Likely related to hypovolemia as discussed above. Patient has good urine output. Continue to monitor renal function. (4) Paroxysmal a-fib Current Visit: No Status: Chronic Assessment and plan: Appreciate cardiology recommendations Started amiodarone 200 mg twice a day for 1 month, then 200 mg daily Patient also on Metoprolol, rate has been in 70s Okay to continue Xarelto per cardiology (5) Chronic respiratory failure with hypoxia Current Visit: No Status: Chronic Assessment and plan: Patient is saturating in the mid-90s on O2 3L (near home dose). Continue oxygen supplementation. (6) CAD (coronary atherosclerotic disease) Current Visit: No Status: Chronic Assessment and plan: Stable Qualifiers: Coronary Disease-Associated Artery/Lesion type: unspecified vessel or lesion type [place] vs. transplanted heart: [place] heart Associated angina: without angina Qualified Code(s): I25.10 - Atherosclerotic heart disease of [place] coronary artery without angina pectoris (7) COPD (chronic obstructive pulmonary disease) Current Visit: Yes Status: Acute Assessment and plan: Stable. Continue Symbicort and when necessary short acting bronchodilators. Qualifiers: COPD type: unspecified COPD Qualified Code(s): J44.9 - Chronic obstructive pulmonary disease, unspecified (8) Physical deconditioning Current Visit: No Status: Chronic Assessment and plan: Frequent hospital admissions in past few months and is now weak PT/OT consulted who recommended inpatient rehabilitation/swing bed at discharge (9) Diabetes mellitus Current Visit: Yes Status: Acute Assessment and plan: Blood sugar under good control. Continue sliding scale insulin. Qualifiers: Diabetes mellitus type: type 2 Diabetes mellitus complication status: with kidney complications Diabetes mellitus complication detail: with chronic kidney disease Diabetes mellitus parts counterman insulin use: without group home use Chronic kidney disease stage: stage 3 (moderate) Qualified Code(s): E11.22 - Type 2 diabetes mellitus with diabetic chronic kidney disease; N18.3 - Chronic kidney disease, stage 3 (moderate); N18.3 - Chronic kidney disease, stage 3 (moderate) (10) DVT prophylaxis Current Visit: Yes Status: Acute - Subjective Interval history: 67-year-old male with h/o CVA most recently about a month ago, A. fib with ablation, PE, pacemaker with AICD, COPD. Has health aides at home. Presented with increasing weakness and confusion. He also had a recent fall but CT head/ neck negative for intracranial abnormalities or fractures. CXR = normal. Admitted for dehydration and AG. Patient seen and examined at bedside this morning. He denies new complaints - Constitutional Vitals: Temp Pulse Resp BP Pulse Ox 98.1 F 70 17 100/65 94 06/02/17 07:14 06/02/17 07:14 06/02/17 07:14 06/02/17 07:14 06/02/17 07:14 General appearance: Present: A&O X 3, answers questions appropriately - Respiratory Respiratory exam: Present: CTAB. Absent: accessory muscle use, rales, rhonchi, wheezes - Cardiovascular Cardiovascular exam: Present: RRR, +S1, +S2. Absent: diastolic murmur, gallop, rubs, systolic murmur - GI/Abdominal GI/Abdominal exam: Present: normal bowel sounds, soft, no peritoneal signs. Absent: distended, tenderness - Extremities Exam Extremities exam: Present: warm. Absent: pedal edema - Neurological Exam Neurological exam: Absent: no focal deficits (3/5 strength in right upper and lower extremities as well as diminished sensation which is unchanged from previous exams this hospitalization) Internal Medicine: Result - Labs CBC & Chem 7: 06/02/17 05:39 06/02/17 05:39 Labs: Short CBC 06/02/17 Range/Units 05:39 WBC 10.1 (4.3-11.1) K/mcL Hgb 13.0 (12.9-16.9) g/dL Hct 39.9 (37.5-50.1) % Plt Count 229 (140-400) K/mcL Neutrophils # 7.8 (1.6-8.9) K/mcL BMP 06/02/17 05:39 Sodium 137 Potassium 3.8 Chloride 99 Carbon Dioxide 29 BUN 31 H Creatinine 1.27 H Glucose 131 H Calcium 9.0 - ABG Interpretation ABG results: PT/INR, D-dimer PT 20.3 Seconds (9.4-12.1) H 05/28/17 01:02 Consult Discharge Plan - Plan Referrals: [facility],PCP [Primary Care Provider] - 06/07/17 9:30 am ()
[2017-06-02] MEDS: Aspirin Enteric Coated 81 MG Tablet PO SCH (09:18)
[2017-06-02] MEDS: *HR* Amiodarone 200 MG TABLET PO SCH ×2 (09:18→15:10)
[2017-06-02] MEDS: Gabapentin 300 MG CAPSULE PO SCH (09:18)
[2017-06-02] MEDS: Sennosides 8.6 MG TABLET PO SCH (09:29)
--- NOTE | 2017-06-02 10:53 | Discharge Summary ---
<Ray Wheeler - Last Filed: 06/02/17 11:00> Date of Encounter: 06/02/17 Time of Encounter: 10:46 - Discharge Diagnosis (1) Hypovolemia dehydration Priority: Primary Status: Resolved (2) Hypokalemia Priority: Primary Status: Acute (3) Acute kidney injury Priority: Primary Status: Resolved (4) Paroxysmal a-fib Priority: Secondary Status: Chronic (5) Chronic respiratory failure with hypoxia Priority: Secondary Status: Chronic (6) CAD (coronary atherosclerotic disease) Priority: Secondary Status: Chronic Qualifiers: Coronary Disease-Associated Artery/Lesion type: unspecified vessel or lesion type [place] vs. transplanted heart: [place] heart Associated angina: without angina Qualified Code(s): I25.10 - Atherosclerotic heart disease of [place] coronary artery without angina pectoris (7) COPD (chronic obstructive pulmonary disease) Priority: Secondary Status: Acute Qualifiers: COPD type: unspecified COPD Qualified Code(s): J44.9 - Chronic obstructive pulmonary disease, unspecified (8) Physical deconditioning Priority: Secondary Status: Chronic (9) Diabetes mellitus Priority: Secondary Status: Acute Qualifiers: Diabetes mellitus type: type 2 Diabetes mellitus complication status: with kidney complications Diabetes mellitus complication detail: with chronic kidney disease Diabetes mellitus shelter insulin use: without moth 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 use Chronic kidney disease stage: stage 3 (moderate) Qualified Code(s): E11.22 - Type 2 diabetes mellitus with diabetic chronic kidney disease; N18.3 - Chronic kidney disease, stage 3 (moderate); N18.3 - Chronic kidney disease, stage 3 (moderate) (10) DVT prophylaxis Priority: Secondary Status: Acute - Discharge Medications Prescriptions: Amiodarone [Cordarone] 200 mg PO BID #30 tablet Furosemide [Lasix] 40 mg PO DAILY #30 tablet Home Medications: Aspirin Enteric Coated [Aspirin EC] 81 mg PO DAILY #0 04/09/15 [History] Rivaroxaban [Xarelto] 20 mg PO DAILY #0 04/09/15 [History] Trazodone HCl [TraZODone] 150 mg PO HS 12/20/15 [History] Cholecalciferol (Vitamin D3) [Vitamin D3] 1,000 unit PO DAILY 03/12/16 [History] Albuterol Sulfate [Proair Hfa] 2 puff IH Q4H PRN 12/14/16 [History] Atorvastatin [Lipitor] 40 mg PO HS 12/14/16 [History] Gabapentin [Neurontin] 400 mg PO BID 12/14/16 [History] Pantoprazole Sodium [Protonix] 40 mg PO DAILY 12/14/16 [History] Polyethylene Glycol 3350 [MiraLAX Powder Bulk 17.9 Oz] 17 gm PO DAILY PRN [History] Sennosides/Docusate Sodium [Senna-Docusate Sodium Tablet] 1 tab PO BID 12/14/16 [History] Spironolactone [Aldactone] 50 mg PO DAILY 12/14/16 [History] Tizanidine HCl [Zanaflex] 2 mg PO BID 12/14/16 [History] Potassium Chloride [Klor-Con Sprinkle] 20 meq PO BID 02/13/17 [History] DULoxetine [Cymbalta] 30 mg PO DAILY 02/14/17 [History] Tamsulosin [Flomax] 0.4 mg PO DAILY 02/14/17 [History] LORazepam [Ativan] 0.5 mg PO HS PRN #2 02/17/17 [Rx] Acetaminophen [Tylenol Arthritis] 650 mg PO Q4H PRN 05/27/17 [History] Budesonide/Formoterol 160/4.5 [Symbicort 160/4.5] 2 puff IH BID 05/27/17 [ History] Dofetilide [Tikosyn] 375 mcg PO BID 05/27/17 [History] Mag Hydrox/Al Hydrox/Simeth [Maalox] 30 ml PO Q4H PRN 05/27/17 [History] Melatonin 6 mg PO HS PRN 05/27/17 [History] Memantine HCl [Namenda Xr] 28 mg PO DAILY 05/27/17 [History] Metoprolol [Lopressor] 25 mg PO BID 05/27/17 [History] Oxycodone HCl 10 mg PO Q6H PRN 05/27/17 [History] Tiotropium [Spiriva] 18 mcg IH DAILY 05/27/17 [History] Amiodarone [Cordarone] 200 mg PO BID #30 tablet 06/02/17 [Rx] Furosemide [Lasix] 40 mg PO DAILY #30 tablet 06/02/17 [Rx] Allergies/Adverse Reactions: 3 Allergy/AdvReac Type Severity Reaction Status Date / Time IVP DYE Allergy Anaphylaxis Uncoded 05/27/17 11:23 Procedures/tests Complete & Pending: Procedures Performed prior 72 hours Category Date Time Status CT stroke alert head wo con [CT] Stat Cat Scan 05/30/17 20:20 Completed ECG 12 lead ECG [ECG] AM 0600 Y 05/31/17 06:00 Completed ECG 12 lead ECG [ECG] AM 0600 Y 06/01/17 06:00 Completed ECG 12 lead ECG [ECG] AM 0600 Y 06/02/17 06:00 Ordered Date of admission: 05/27/17 14:47 Primary care physician: [facility] Consults: 05/27/17 15:09 Consult to Nephrology [CONS] Routine Consulting Provider: Kidney Sujatha/OTTO/JESSICA/BENITO Reason for Consult: AG Time Notified: 15:09 Call Completed: Yes 05/27/17 15:23 Consult to Physical Therapy [CONS] Routine Comment: Evaluate, develop and implement POC Reason for Consult: weakness and falls 05/27/17 15:25 Consult to Occupational Therapy [CONS] Routine Comment: Evaluate, develop and implement POC Reason for Consult: weakness and falls 05/27/17 15:28 Consult to Ase Master Mechanic (W&C) [CONS] Routine Reason For Exam: Reason for SW Consult: discharge planning 05/27/17 18:32 Consult to Cardiology [CONS] Routine Comment: Consulting Provider: Cardiology Sujatha Reason for Consult: On Tikosyn AG and ATB Time Notified: 18:33 Call Completed: Yes 05/29/17 11:24 Consult to Electrophysiology (EP) [CONS] Routine Consulting Provider: Electrophysiology Sujatha Reason for Consult: Antiarrhythmic recs Call Completed: Yes 05/30/17 07:35 Consult to Ase Master Mechanic [CONS] Routine Reason for SW Consult: needs inpt swing Discharging clinician: Deric Madrigal Anticipated date of discharge: 06/02/17 - Patient Status Disposition: Transfer Inpatient Rehab Fac Condition: Fair Functional capacity at discharge: uses cane/walker Overall status at discharge: patient is progressing back to baseline - Discharge Instructions Instructions: Acute Kidney Injury (DC), Chronic Obstructive Pulmonary Disease ( DC), Pneumonia (DC) Follow Up With: [facility] [Primary Care Provider] - 06/07/17 9:30 am () - Diet and Activity Activity: as per physical therapy Diet: diabetic diet Hospital course: Mr. Issa is a 67-year-old male with h/o CVA most recently about a month ago, A. fib with ablation, PE, pacemaker with AICD, COPD. Has health aides at home. Was admitted to [facility] from 05/27 - 06/02/17 for with increasing weakness and confusion. He also had a recent/ fall but CT head/neck negative for intracranial abnormalities or fractures. CXR = normal. Admitted for dehydration and AG. It was suspected that his hypovolemia and dehydration were related to his home diuretic use. He responded well to fluid hydration and holding diuretics. He developed hypokalemia during his hospital stay, K+ was 2.9 on admission, this was replaced and normalized. He also suffered acute kidney injury with near resolution upon discharge, his creatinine was 1.27 prior to leaving. Cardiology saw the patient and recommended starting amiodarone 200 mg twice a day for 1 month and then increasing to 200 mg daily. We will also continue his metoprolol, his rate stayed in the 70s. Cardiology also recommends continuation of Xarelto. Patient's COPD was stable and we continued his home medications. Patient also has physical deconditioning with frequent hospital admissions in the past few months. PT/OT recommended inpatient rehabilitation/swing bed upon discharge however patient refuses and requests home health, and PT/OT - Time Spent with Patient Total time spent providing and/or coordinating discharge services: Greater than 30 minutes - Constitutional Vitals: Temp Pulse Resp BP Pulse Ox 98.1 F 70 17 100/65 94 06/02/17 07:14 06/02/17 07:14 06/02/17 07:14 06/02/17 07:14 06/02/17 07:14 General appearance: Present: A&O X 3, answers questions appropriately - Respiratory Respiratory exam: Present: CTAB. Absent: accessory muscle use, rales, rhonchi, wheezes - Cardiovascular Cardiovascular exam: Present: RRR, +S1, +S2. Absent: diastolic murmur, gallop, rubs, systolic murmur - GI/Abdominal GI/Abdominal exam: Present: normal bowel sounds, soft, no peritoneal signs. Absent: tenderness - Extremities Exam Extremities exam: Present: warm. Absent: pedal edema - Neurological Exam Neurological exam: Present: alert, oriented X3. Absent: no focal deficits (3/5 strength in right upper and lower extremities as well as diminished sensation which is unchanged from previous exams this hospitalization) <Deric Madrigal T - Last Filed: 06/02/17 12:57> Date of Encounter: 06/02/17 Procedures/tests Complete & Pending: Procedures Performed prior 72 hours Category Date Time Status CT stroke alert head wo con [CT] Stat Cat Scan 05/30/17 20:20 Completed ECG 12 lead ECG [ECG] AM 0600 Y 05/31/17 06:00 Completed ECG 12 lead ECG [ECG] AM 0600 Y 06/01/17 06:00 Completed ECG 12 lead ECG [ECG] AM 0600 Y 06/02/17 06:00 Ordered Date of admission: 05/27/17 14:47 Primary care physician: [facility] Consults: 05/27/17 15:09 Consult to Nephrology [CONS] Routine Consulting Provider: Kidney Sujatha/OTTO/JESSICA/BENITO Reason for Consult: AG Time Notified: 15:09 Call Completed: Yes 05/27/17 15:23 Consult to Physical Therapy [CONS] Routine Comment: Evaluate, develop and implement POC Reason for Consult: weakness and falls 05/27/17 15:25 Consult to Occupational Therapy [CONS] Routine Comment: Evaluate, develop and implement POC Reason for Consult: weakness and falls 05/27/17 15:28 Consult to Ase Master Mechanic (W&C) [CONS] Routine Reason For Exam: Reason for SW Consult: discharge planning 05/27/17 18:32 Consult to Cardiology [CONS] Routine Comment: Consulting Provider: Cardiology [place] Reason for Consult: On Tikosyn AG and ATB Time Notified: 18:33 Call Completed: Yes 05/29/17 11:24 Consult to Electrophysiology (EP) [CONS] Routine Consulting Provider: Electrophysiology [place] Reason for Consult: Antiarrhythmic recs Call Completed: Yes 05/30/17 07:35 Consult to Ase Master Mechanic [CONS] Routine Reason for SW Consult: needs inpt swing Hospital course: Mr. Issa is a 67 year old male - Time Spent with Patient Total time spent providing and/or coordinating discharge services: Greater than 30 minutes - Constitutional Vitals: Temp Pulse Resp BP Pulse Ox 98.3 F 68 17 99/58 98 06/02/17 11:13 06/02/17 11:13 06/02/17 11:13 06/02/17 11:13 06/02/17 12:36 - Attending Attestation I independently saw and examined this patient on 06/02/17, plan of care is as detailed in the resident physician's documentation 67M admitted for eval and management of syncope, Afib, AG on CKD, He has a PMH of CHF and COPD, [place], Home O2 dependent, CAD, Hx of CVA with residual deficits- Diplopia and RUE weakness He is seen at bedside this morning, he denies any symptoms and states he does not have any symptoms or complains at this time He is unwilling to wait for a bed at the [facility] and has opted to go home with services, he also states he has enough family support as well He was educated about the changes in his medications. Clinical exam is remarkable for RUE weakness. Power 3/5, EOM is intact and pupils are equal and reactive. Chest is CTAB. HS S1, S2 , abdomen is benign, no pedal edema bilaterally. NO visible ulcers Labs reviewed:Stable. Renal function continues to improve Micro no growth Stable for discharge home with services and follow up with PCP, Elcetrophysiologist. Rest as in resident physician's documentation
[2017-06-02] MEDS: Budesonide/Formoterol 160/4.5 MDI IH SCH (11:04)
[2017-06-02 11:17] VITALS: BP 99/58
[2017-06-02] MEDS ORDERED: tiZANidine 4 MG TABLET PO PRN (11:18)
--- NOTE | 2017-06-02 16:11 | Electrocardiograph Report ---
[address] [address] Test Date: 2017-05-31 Pat Name: Dakota Issa Department: 112 Room: [facility] Gender: M P[employer] Mixer: [place] : 1950 Requested By: Yissel Cedillo Order Number: [id number] Reading MD: Dakota Justice Measurements Intervals [place] Rate: 70 P: 17 [place]: 165 QRS: 25 QRSD: 96 T: 38 QT: 327 QTc: 347 Interpretive Statements SINUS RHYTHM NONSPECIFIC T-WAVE ABNORMALITY Electronically Signed On 06-02-2017 16:10:22 EST by Dakota Justice
--- NOTE | 2017-06-02 16:46 | Electrocardiograph Report ---
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
== END 2017-06-02 15:20 | DRG 683 ==
LOC: 2ANU 11:11 → EMEROO 11:11 → SUATTDRO 14:47 → 2ANU 15:03
PROVIDERS: ADMIT Internal Medicine; ATTEND Internal Medicine

== ENCOUNTER 2017-07-05 12:57 | Inpatient (IN) ==
--- NOTE | 2017-07-05 13:13 | Emergency Department Note ---
Disposition Clinical Impression: Chest pain Qualifiers: Chest pain type: unspecified Qualified Code(s): R07.9 - Chest pain, unspecified Disposition: Admitted As Inpatient Condition: Fair Time of Disposition: 14:43 General Adult HPI - General Chief complaint: ED Chest Pain Stated complaint: Poss Stemi Time Seen by Provider: 07/05/17 13:00 Source: family Mode of arrival: wheelchair Limitations: no limitations Nursing Notes Reviewed: Yes Vital Signs Reviewed: Yes - History of Present Illness HPI Narrative: Patient is a 67-year-old male with past medical history of atrial fibrillation requiring ablation currently on xeralto presenting to the emergency department from 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 Flood for plans to go to the Class[facility] [facility]. Patient states that he has had chest pain that has been going on intermittently over the past 3 days but is on his left side he describes as a pressure-like pain. He is being seen his thermoforming operator office and was found to have ST elevations in his inferior leads with reciprocal changes in the lateral lead which are on his old EKG however they appear more pronounced today. Patient last heart catheterization was in 2013. Patient states he took an aspirin today. Pain Scale: 7 - Related Data Home Medications Medication Instructions Recorded Confirmed Aspirin Enteric Coated [Aspirin EC] 81 mg PO DAILY #0 04/09/15 07/05/17 Rivaroxaban [Xarelto] 20 mg PO DAILY #0 04/09/15 07/05/17 Cholecalciferol (Vitamin D3) 1,000 unit PO DAILY 03/12/16 07/05/17 [Vitamin D3] Albuterol Sulfate [Proair Hfa] 2 puff IH Q4H PRN 12/14/16 07/05/17 Atorvastatin [Lipitor] 40 mg PO HS 12/14/16 07/05/17 Gabapentin [Neurontin] 400 mg PO BID 12/14/16 07/05/17 Pantoprazole Sodium [Protonix] 40 mg PO DAILY 12/14/16 07/05/17 Polyethylene Glycol 3350 [MiraLAX 17 gm PO DAILY PRN 12/14/16 07/05/17 Powder Bulk 17.9 Oz] Sennosides/Docusate Sodium 1 tab PO BID PRN 12/14/16 07/05/17 [Senna-Docusate Sodium Tablet] Spironolactone [Aldactone] 50 mg PO DAILY 12/14/16 07/05/17 Tizanidine HCl [Zanaflex] 2 mg PO BID 12/14/16 07/05/17 Potassium Chloride [Klor-Con 20 meq PO BID 02/13/17 07/05/17 Sprinkle] DULoxetine [Cymbalta] 30 mg PO DAILY 02/14/17 07/05/17 Tamsulosin [Flomax] 0.4 mg PO DAILY 02/14/17 07/05/17 Dofetilide [Tikosyn] 375 mcg PO BID 05/27/17 07/05/17 Metoprolol [Lopressor] 25 mg PO BID 05/27/17 07/05/17 Oxycodone HCl 10 mg PO TID PRN 05/27/17 07/05/17 Amiodarone [Cordarone] 200 mg PO DAILY 07/05/17 07/05/17 Capsaicin [Arthritis Pain Relief] 1 appl TP BID PRN 07/05/17 07/05/17 Finasteride [Proscar] 5 mg PO DAILY 07/05/17 07/05/17 Fluticasone/Salmeterol [Advair 1 each IH BID 07/05/17 07/05/17 250-50 Diskus] Furosemide [Lasix] 20 mg PO DAILY 07/05/17 07/05/17 Insulin ASPART [Novolog Flexpen] 2 unit SQ AD PRN 07/05/17 07/05/17 Lidocaine 4% CRM (LMX) [Lmx 4] 1 appl TP QID PRN 07/05/17 07/05/17 Memantine HCl 10 mg PO BID 07/05/17 07/05/17 Olodaterol HCl [Striverdi Respimat] 2 puff IH DAILY 07/05/17 07/05/17 Simethicone [Gas-X] 160 mg PO BID PRN 07/05/17 07/05/17 Triamcinolone Acet 0.1% CRM 1 appl TP BID 07/05/17 07/05/17 [Kenalog] Previous Rx's Medication Instructions Recorded LORazepam [Ativan] 0.5 mg PO HS PRN #2 02/17/17 Allergies Allergy/AdvReac Type Severity Reaction Status Date / Time IVP DYE Allergy Anaphylaxis Uncoded 07/05/17 13:07 All systems ED: reviewed and negative except as stated. Review of Systems: As Per HPI Constitutional: Denies: fever, chills ENT ED: Denies: throat pain, congestion Cardiovascular: Reports: chest pain. Denies: palpitations, dyspnea on exertion , orthopnea, edema, syncope, paroxysmal nocturnal dyspnea Respiratory: Reports: cough. Denies: dyspnea, wheezes, hemoptysis, sputum production Gastrointestinal: Denies: abdominal pain, nausea, vomiting Genitourinary: Denies: urgency, dysuria Musculoskeletal: Denies: back pain, neck pain Integumentary: Denies: rash, abrasion Neurological: Denies: headache Past Medical History - Past Medical History Attestation: Yes The following information was validated with the patient. Medical history: Reports: arthritis, atrial fibrillation, CHF, COPD, coronary artery disease, CVA, GERD, hyperlipidemia, hypertension, pulmonary embolus, syncope, venous stasis, other Surgical history: Reports: herniorrhaphy, knee replacement, pacemaker/AICD, other Psychiatric history: Reports: anxiety, depression - Social History Smoking Status: Former smoker Smokeless Tobacco Status: No Alcohol use: Reports: none Drug use: Reports: none Physical Exam CONSTITUTIONAL: A&O X 3, in no apparent distress HEAD: Normocephalic; atraumatic EYES: PERRL, no scleral icterus NOSE: The nose is normal in appearance without rhinorrhea NECK: No JVD or distended neck veins RESP: Normal chest excursion with respiration; breath sounds clear and equal bilaterally; no wheezes, rhonchi, or rales CARD: Regular rhythm, without murmurs, rub or gallop ABD: Non-distended; non-tender, soft, without rigidity, rebound or guarding,no pulsatile mass CHEST: No pain with palpation SKIN: Normal for age and race; warm and dry without diaphoresis ; no apparent lesions EXTREMITIES: Pulses are 2 plus and equal times 4 extremities, no peripheral edema or calf muscle pain - General Limitations: no limitations General appearance: alert, in no apparent distress Course Course Narrative: ad terminal makeup operator Dr. Xavier is a patient bedside plans transport the patient to the catheter lab. Labs were initiated on the patient including chest x-ray and EKG. Intervention was requested no heparin be started at this time since that they will take care of that and the [employer] [employer] [facility]. - Reevaluation(s) Reevaluation #1: Patient's laboratory his creatinine was shown to be elevated above 2.0 therefore the chance of at this time is a candidate for the catheter lab he preferred to admit the patient to hospitalist with a consult to him. He has no other recommendations at this time. Patient's chest x-ray came back unremarkable as well as his urine for any signs of infection. His lab work was otherwise unremarkable. I discussed this patient's case with the hospitalist on -call Dr. De Souza agrees to accept the patient for chest pain. Time: 15:32 - Consultations Consultation #1: spoke w/ Dr Bray with Nephrology for the elevated bun/creatinine. he will see in consult. Vital Signs Temperature 98.1 F 07/05/17 13:00 Pulse Rate 74 07/05/17 13:00 Respiratory Rate 16 07/05/17 13:00 Blood Pressure 112/86 07/05/17 13:00 O2 Sat by Pulse Oximetry 96 07/05/17 13:00 Temperature 98.1 F 07/05/17 13:00 Pulse Rate 60 07/05/17 17:02 Respiratory Rate 15 07/05/17 16:12 Blood Pressure 117/86 07/05/17 17:02 O2 Sat by Pulse Oximetry 96 07/05/17 16:12 Oxygen Delivery Oxygen Delivery Nasal Cannula Medical Decision Making - Medical Records Medical records reviewed: Yes I reviewed the patient's medical records. - Lab Data Lab results reviewed: Yes I reviewed the patient's lab results. Result diagrams: 07/05/17 13:10 07/05/17 13:10 Lab Results 07/05/17 07/05/17 07/05/17 Range/Units 13:10 13:10 13:10 WBC 8.1 (4.3-11.1) K/mcL RBC 5.80 H (4.19-5.50) M/mcL Hgb 16.4 (12.9-16.9) g/dL Hct 49.7 (37.5-50.1) % MCV 85.7 (83.0-100.0) fL MCH 28.3 (28.0-33.3) pg MCHC 33.0 (31.6-35.5) g/dL RDW 14.6 H (11.5-14.5) % Plt Count 266 (140-400) K/mcL MPV 9.6 (9.4-12.4) fL Immature Gran % 0.5 (0-4) % Seg Neutrophils % 72.7 % Lymphocytes % 12.5 % Monocytes % 10.6 % Eosinophils % 3.1 % Basophils % 0.6 % Neutrophils # 5.9 (1.6-8.9) K/mcL Lymphocytes # 1.0 (0.6-4.6) K/mcL Monocytes # 0.9 (0.0-1.3) K/mcL Eosinophils # 0.3 (0.0-0.6) K/mcL Basophils # 0.1 (0.0-0.2) K/mcL PT 21.9 H (9.4-12.1) Seconds INR 2.0 APTT 43.8 H (26.0-36.0) Seconds Sodium 132 L (136-145) mEq/L Potassium 4.7 (3.5-5.1) mEq/L Chloride 93 L (98-107) mEq/L Carbon Dioxide 32 H (23-29) mEq/L BUN 49 H (8-23) mg/dL Creatinine 2.41 H (0.70-1.30) mg/dL Est GFR ( Amer) 33 L (> 60) Est GFR (Non-Af Amer) 27 L (> 60) BUN/Creatinine Ratio 20 (6-26) Glucose 99 (70-105) mg/dL Calculated Osmolality 287 (280-300) Calcium 9.9 (8.6-10.3) mg/dL Troponin I (< 0.04) ng/mL Urine Color (Yellow) Urine Clarity (Clear) Urine pH (5.0-8.0) pH Units Ur Specific [place] (1.010-1.025) Urine Protein (Neg-Trace) mg/dL Urine Glucose (UA) (Normal) mg/dL Urine Ketones (Negative) mg/dL Urine Blood (Negative) Urine Nitrite (Negative) Urine Bilirubin (Negative) Urine Urobilinogen (Normal) mg/dL Ur Leukocyte Esterase (Negative) Ur Culture Indicated? (NO) 07/05/17 07/05/17 Range/Units 13:10 13:25 WBC (4.3-11.1) K/mcL RBC (4.19-5.50) M/mcL Hgb (12.9-16.9) g/dL Hct (37.5-50.1) % MCV (83.0-100.0) fL MCH (28.0-33.3) pg MCHC (31.6-35.5) g/dL RDW (11.5-14.5) % Plt Count (140-400) K/mcL MPV (9.4-12.4) fL Immature Gran % (0-4) % Seg Neutrophils % % Lymphocytes % % Monocytes % % Eosinophils % % Basophils % % Neutrophils # (1.6-8.9) K/mcL Lymphocytes # (0.6-4.6) K/mcL Monocytes # (0.0-1.3) K/mcL Eosinophils # (0.0-0.6) K/mcL Basophils # (0.0-0.2) K/mcL PT (9.4-12.1) Seconds INR APTT (26.0-36.0) Seconds Sodium (136-145) mEq/L Potassium (3.5-5.1) mEq/L Chloride (98-107) mEq/L Carbon Dioxide (23-29) mEq/L BUN (8-23) mg/dL Creatinine (0.70-1.30) mg/dL Est GFR ( Amer) (> 60) Est GFR (Non-Af Amer) (> 60) BUN/Creatinine Ratio (6-26) Glucose (70-105) mg/dL Calculated Osmolality (280-300) Calcium (8.6-10.3) mg/dL Troponin I < 0.03 (< 0.04) ng/mL Urine Color Yellow (Yellow) Urine Clarity Clear (Clear) Urine pH 6.0 (5.0-8.0) pH Units Ur Specific [place] 1.014 (1.010-1.025) Urine Protein Negative (Neg-Trace) mg/dL Urine Glucose (UA) Normal (Normal) mg/dL Urine Ketones Negative (Negative) mg/dL Urine Blood Negative (Negative) Urine Nitrite Negative (Negative) Urine Bilirubin Negative (Negative) Urine Urobilinogen Normal (Normal) mg/dL Ur Leukocyte Esterase Negative (Negative) Ur Culture Indicated? NO (NO) - Radiology Data Radiology results reviewed: Yes I reviewed the patient's radiology results. Chest X-Ray 07/05/17 13:04 IMPRESSION: Mild left basilar atelectasis versus scarring. D/ / Dilshad Harrell MD / Dilshad Harrell MD Interpreting Provider: Dilshad Harrell MD - EKG Data EKG #1 EKG attestation: Yes I reviewed and interpreted this EKG. EKG results narrative: EKG done at 1300 shows likely initial pacemaker at a rate of 79 bpm. Normal axis. The patient has ST elevations in leads, II, III, and aVF as well as reciprocal changes in leads aVL. Possibly ST elevation in lead V6. These findings are consistent with the patient's prior EKGs.
--- NOTE | 2017-07-05 13:19 | Emergency Department Note ---
START Narrative - START START: I examined this patient and my medical decision-making was reviewed with the Resident Physician. I agree with the documented findings, disposition and treatment plan as described except to the extent set forth below. 67 yo M here for chest pain that was sent over from Dr Flood's office. pt has had chest pain for past few days rates it a 5/10. hx of ablation for a fib on amio and xarelto and asa. pt took asa today. spoke with dr flood and dr ignacio who is in ER seeing pt now. ekg concerning for ST elevation in inf leads but has had this in the past on previous ekg. last cath in 2013. 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
[2017-07-05 13:22] LABS: Basophils # 0.1 K/mcL (0.0-0.2); Basophils % 0.6 %; Eosinophils # 0.3 K/mcL (0.0-0.6); Eosinophils % 3.1 %; Hematocrit 49.7 % (37.5-50.1); Hemoglobin 16.4 g/dL (12.9-16.9); Immature Granulocytes % 0.5 % (0-4); Lymphocytes % 12.5 %; Mean Corpuscular Hemoglobin 28.3 pg (28.0-33.3); Mean Corpuscular Volume 85.7 fL (83.0-100.0); Mean Platelet Volume 9.6 fL (9.4-12.4); Monocytes # 0.9 K/mcL (0.0-1.3); Monocytes % 10.6 %; Neutrophils # 5.9 K/mcL (1.6-8.9); Platelet Count 266 K/mcL (140-400); Red Cell Distribution Width 14.6 % (11.5-14.5); Segmented Neutrophils % 72.7 %
[2017-07-05 13:27] LABS: Prothrombin Time 21.9 Seconds (9.4-12.1)
[2017-07-05 13:29] LABS: Activated Partial Thrombo Time 43.8 Seconds (26.0-36.0)
--- NOTE | 2017-07-05 13:29 | Cardiology History & Physical ---
Date of Encounter: 07/05/17 Time of Encounter: 13:30 History of Present Illness Chief complaint: chest discomfort, malaise, weakness HPI: Mr. Issa is a 67 year old male Past Med Surg Social Fam HX - Past Medical History Medical history: arthritis, atrial fibrillation, CHF, COPD, coronary artery disease, CVA, GERD, hyperlipidemia, hypertension, pulmonary embolus, syncope, venous stasis, other Psychiatric history: anxiety, depression - Past Surgical History Surgical History: herniorrhaphy, knee replacement, pacemaker/AICD, other - Social History Smoking Status: Former smoker Smokeless Tobacco Status: No Alcohol use: none Drug use: none - Family History Father Adopted: No Family Member Ethnicity: Non- Living Status: Hx Family Cardiac Disorders: No Hx Family Respiratory Disorders: No Hx Family Cancer: Yes Hx Family GI Disorders: No Hx Family Endocrine Disorder: No Hx Family Neuromuscular Disorders: No Hx Family Neurologic Disorders: No Hx Family HEENT Disorders: No Hx Family Autoimmune Disorders: No Mother Adopted: No Family Member Ethnicity: Non- Twin of Family Member: Yes Living Status: Still Living Hx Family Cardiac Disorders: Yes Hx Family Respiratory Disorders: No Hx Family Cancer: Yes (father leukemia) Hx Family GI Disorders: No Hx Family Endocrine Disorder: No Hx Family Neuromuscular Disorders: No Hx Family Neurologic Disorders: No Hx Family HEENT Disorders: No Hx Family Autoimmune Disorders: Yes (arthritis) Medications and Allergies Aspirin Enteric Coated [Aspirin EC] 81 mg PO DAILY #0 04/09/15 [History] Rivaroxaban [Xarelto] 20 mg PO DAILY #0 04/09/15 [History] Trazodone HCl [TraZODone] 150 mg PO HS 12/20/15 [History] Cholecalciferol (Vitamin D3) [Vitamin D3] 1,000 unit PO DAILY 03/12/16 [History] Albuterol Sulfate [Proair Hfa] 2 puff IH Q4H PRN 12/14/16 [History] Atorvastatin [Lipitor] 40 mg PO HS 12/14/16 [History] Gabapentin [Neurontin] 400 mg PO BID 12/14/16 [History] Pantoprazole Sodium [Protonix] 40 mg PO DAILY 12/14/16 [History] Polyethylene Glycol 3350 [MiraLAX Powder Bulk 17.9 Oz] 17 gm PO DAILY PRN [History] Sennosides/Docusate Sodium [Senna-Docusate Sodium Tablet] 1 tab PO BID 12/14/16 [History] Spironolactone [Aldactone] 50 mg PO DAILY 12/14/16 [History] Tizanidine HCl [Zanaflex] 2 mg PO BID 12/14/16 [History] Potassium Chloride [Klor-Con Sprinkle] 20 meq PO BID 02/13/17 [History] DULoxetine [Cymbalta] 30 mg PO DAILY 02/14/17 [History] Tamsulosin [Flomax] 0.4 mg PO DAILY 02/14/17 [History] LORazepam [Ativan] 0.5 mg PO HS PRN #2 02/17/17 [Rx] Acetaminophen [Tylenol Arthritis] 650 mg PO Q4H PRN 05/27/17 [History] Budesonide/Formoterol 160/4.5 [Symbicort 160/4.5] 2 puff IH BID 05/27/17 [ History] Dofetilide [Tikosyn] 375 mcg PO BID 05/27/17 [History] Mag Hydrox/Al Hydrox/Simeth [Maalox] 30 ml PO Q4H PRN 05/27/17 [History] Melatonin 6 mg PO HS PRN 05/27/17 [History] Memantine HCl [Namenda Xr] 28 mg PO DAILY 05/27/17 [History] Metoprolol [Lopressor] 25 mg PO BID 05/27/17 [History] Oxycodone HCl 10 mg PO Q6H PRN 05/27/17 [History] Tiotropium [Spiriva] 18 mcg IH DAILY 05/27/17 [History] Amiodarone [Cordarone] 200 mg PO BID #30 tablet 06/02/17 [Rx] Furosemide [Lasix] 40 mg PO DAILY #30 tablet 06/02/17 [Rx] 3 Allergy/AdvReac Type Severity Reaction Status Date / Time IVP DYE Allergy Anaphylaxis Uncoded 07/05/17 13:07 All Systems Review: A 10-system review of systems was performed and is negative for pertinent findings except as documented above in the HPI. Physical Examination Vital Signs, Last 4 Hours Temp Pulse Resp BP Pulse Ox 07/05/17 13:00 98.1 F 74 16 112/86 96 Results 07/05/17 13:10 Lab Results 07/05/17 13:10 WBC 8.1 Hgb 16.4 Hct 49.7 Plt Count 266
[2017-07-05 13:35] LABS: Calcium 9.9 mg/dL (8.6-10.3); Potassium 4.7 mEq/L (3.5-5.1)
[2017-07-05 13:44] LABS: Bilirubin,Urine Negative (Negative); Blood,Urine Negative (Negative); Clarity,Urine Clear (Clear); Color,Urine Yellow (Yellow); Glucose,Urine (UA) Normal (Normal); Ketones,Urine Negative (Negative); Leukocyte Esterase,Urine Negative (Negative); Nitrite,Urine Negative (Negative); Protein,Urine Negative (Neg-Trace); Specific Gravity,Urine 1.014 (1.010-1.025); Urobilinogen,Urine Normal (Normal)
--- NOTE | 2017-07-05 14:24 | Cardiology Consult Note ---
Date of Encounter: 07/05/17 Time of Encounter: 14:00 Assessment and Plan (1) Chest pain Current Visit: Yes Status: Acute Discussed [facility] with patient. Labs returned showing acute kidney injury and troponin negative. Will trend troponin to evaluate for ACS. Heparin drip overnight - hold xarelto. TTE ordered Qualifiers: Chest pain type: unspecified Qualified Code(s): R07.9 - Chest pain, unspecified (2) Acute kidney injury Current Visit: Yes Status: Acute IVF NS (3) Atrial fibrillation Current Visit: No Status: Acute Continue rate control strategy, and xarelto as outpatient. Qualifiers: Atrial fibrillation type: paroxysmal Qualified Code(s): I48.0 - Paroxysmal atrial fibrillation Discussion w patient/family: The assessment and plan as outlined above was discussed with the patient and/or family members who expressed understanding and agreement. All questions were answered. Thank you for involving us in the care of your patient. Please call with any questions. History of Present Illness Consult date: 07/05/17 Chief complaint: malaise, chest discomfort History of present illness: Mr. 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 Patient is lethargic, I discussed history with his as well. She states he has been feeling poorly over last few days, not wanting to get out of bed with malaise and feverish. He has had episodes of chest discomfort over last few days. Last [facility] 2013 with normal coronaries. He was sent from office secondary to concern of symptoms and abnormal EKG. Prior studies: EP study/AF ablation 09/11/2015 ([facility]): Successful pulmonary vein isolation. Device interrogation 04/22/2016: Normal device function. No events. TTE 06/24/2015: EF 55%. All segments were well visualized. No significant valvular dysfunction. No evidence of pulmonary hypertension. Limited TTE 02/26/2016: EF 60%. Normal LV size and function. TTE 04/18/2016: EF 60%. Normal right ventricular structure. Moderate left diastolic dysfunction. Mild mitral regurgitation. Moderately dialated left atrium. Mild pulmonary hypertension. Estimated RVSP 41mmHg. TTE 02/14/2017: LVEF 60%. Mild diastolic dysfunction. Dilated RV with normal function. Mild to moderate TR. No pHTN identified. Suboptimal agitated saline injection, no obvious PFO. Left heart catheterization 02/06/2014: Normal coronary arteries. Reportedly, brief CPR and 200 J shock. Carotid duplex 01/29/2016: Normal bilaterally. Past Med Surg Social Fam HX - Past Medical History Medical history: arthritis, atrial fibrillation, CHF, COPD, coronary artery disease, CVA, GERD, hyperlipidemia, hypertension, pulmonary embolus, syncope, venous stasis, other Psychiatric history: anxiety, depression - Past Surgical History Surgical History: herniorrhaphy, knee replacement, pacemaker/AICD, other - Social History Smoking Status: Former smoker Smokeless Tobacco Status: No Alcohol use: none Drug use: none - Family History Father Adopted: No Family Member Ethnicity: Non- Living Status: Hx Family Cardiac Disorders: No Hx Family Respiratory Disorders: No Hx Family Cancer: Yes Hx Family GI Disorders: No Hx Family Endocrine Disorder: No Hx Family Neuromuscular Disorders: No Hx Family Neurologic Disorders: No Hx Family HEENT Disorders: No Hx Family Autoimmune Disorders: No Mother Adopted: No Family Member Ethnicity: Non- Twin of Family Member: Yes Living Status: Still Living Hx Family Cardiac Disorders: Yes Hx Family Respiratory Disorders: No Hx Family Cancer: Yes (father leukemia) Hx Family GI Disorders: No Hx Family Endocrine Disorder: No Hx Family Neuromuscular Disorders: No Hx Family Neurologic Disorders: No Hx Family HEENT Disorders: No Hx Family Autoimmune Disorders: Yes (arthritis) Medications and Allergies Aspirin Enteric Coated [Aspirin EC] 81 mg PO DAILY #0 04/09/15 [History] Rivaroxaban [Xarelto] 20 mg PO DAILY #0 04/09/15 [History] Cholecalciferol (Vitamin D3) [Vitamin D3] 1,000 unit PO DAILY 03/12/16 [History] Albuterol Sulfate [Proair Hfa] 2 puff IH Q4H PRN 12/14/16 [History] Atorvastatin [Lipitor] 40 mg PO HS 12/14/16 [History] Gabapentin [Neurontin] 400 mg PO BID 12/14/16 [History] Pantoprazole Sodium [Protonix] 40 mg PO DAILY 12/14/16 [History] Polyethylene Glycol 3350 [MiraLAX Powder Bulk 17.9 Oz] 17 gm PO DAILY PRN [History] Sennosides/Docusate Sodium [Senna-Docusate Sodium Tablet] 1 tab PO BID PRN 12/14 [History] Spironolactone [Aldactone] 50 mg PO DAILY 12/14/16 [History] Tizanidine HCl [Zanaflex] 2 mg PO BID 12/14/16 [History] Potassium Chloride [Klor-Con Sprinkle] 20 meq PO BID 02/13/17 [History] DULoxetine [Cymbalta] 30 mg PO DAILY 02/14/17 [History] Tamsulosin [Flomax] 0.4 mg PO DAILY 02/14/17 [History] LORazepam [Ativan] 0.5 mg PO HS PRN #2 02/17/17 [Rx] Dofetilide [Tikosyn] 375 mcg PO BID 05/27/17 [History] Metoprolol [Lopressor] 25 mg PO BID 05/27/17 [History] Oxycodone HCl 10 mg PO TID PRN 05/27/17 [History] Amiodarone [Cordarone] 200 mg PO DAILY 07/05/17 [History] Capsaicin [Arthritis Pain Relief] 1 appl TP BID PRN 07/05/17 [History] Finasteride [Proscar] 5 mg PO DAILY 07/05/17 [History] Fluticasone/Salmeterol [Advair 250-50 Diskus] 1 each IH BID 07/05/17 [History] Furosemide [Lasix] 20 mg PO DAILY 07/05/17 [History] Insulin ASPART [Novolog Flexpen] 2 unit SQ AD PRN 07/05/17 [History] Lidocaine 4% CRM (LMX) [Lmx 4] 1 appl TP QID PRN 07/05/17 [History] Memantine HCl 10 mg PO BID 07/05/17 [History] Olodaterol HCl [Striverdi Respimat] 2 puff IH DAILY 07/05/17 [History] Simethicone [Gas-X] 160 mg PO BID PRN 07/05/17 [History] Triamcinolone Acet 0.1% CRM [Kenalog] 1 appl TP BID 07/05/17 [History] 3 Allergy/AdvReac Type Severity Reaction Status Date / Time IVP DYE Allergy Anaphylaxis Uncoded 07/05/17 13:07 All Systems Review: A 10-system review of systems was performed and is negative for pertinent findings except as documented above in the HPI. Physical Examination Vital Signs, Last 4 Hours Temp Pulse Resp BP Pulse Ox 07/05/17 14:16 60 16 118/88 97 07/05/17 13:07 65 17 96 07/05/17 13:00 98.1 F 74 16 112/86 96 General: Other (lethargic, mildly ill appearing) HEENT: Atraumatic Neck: No JVD Cardiac: Reg Rate and Rhythm Lungs: Normal Breath Sounds Neuro: No focal deficits noted Abdomen: Soft Skin: No rashes noted on visualized skin Musculoskeletal: No Chest Wall Tenderness Extremities: No Edema Results 07/05/17 13:10 07/05/17 13:10 Lab Results 07/05/17 07/05/17 07/05/17 13:10 13:10 13:10 WBC 8.1 Hgb 16.4 Hct 49.7 Plt Count 266 INR 2.0 APTT 43.8 H Sodium 132 L Potassium 4.7 Chloride 93 L Carbon Dioxide 32 H BUN 49 H Creatinine 2.41 H Glucose 99 Calcium 9.9 Troponin I 07/05/17 13:10 WBC Hgb Hct Plt Count INR APTT Sodium Potassium Chloride Carbon Dioxide BUN Creatinine Glucose Calcium Troponin I < 0.03 - EKG Interpretation EKG results cardiology: personally reviewed, sinus rhythm (inferior Q wave with ST elevation seen on previous EKG but more prominent) Consult Discharge Plan - Plan [facility]errals: [facility]Primary Care Provider[facility] -
[2017-07-05] MEDS ORDERED: *HR* Heparin 5,000 UNIT/ML VIAL IVP ONE (15:50)
[2017-07-05] MEDS ORDERED: *HR* Heparin 5,000 UNIT/ML VIAL IVP PRN ×2 (15:50)
[2017-07-05] MEDS: 0.9 % Sodium Chloride 1,000 ML IVC SCH (16:50)
[2017-07-05] MEDS: Heparin 25,000 UNIT/500 ML D5W 25,000 UNIT/500 ML BAG IVC SCH (16:53)
[2017-07-05] MEDS ORDERED: Naloxone 0.4 MG/ML INJ IVP PRN (18:03)
[2017-07-05] MEDS ORDERED: Polyethylene Glycol 3350 255 GM POWDER PO PRN (18:11)
[2017-07-05] MEDS ORDERED: INSULIN ASPART 2 UNIT SQ PRN (18:11)
[2017-07-05] MEDS ORDERED: Lidocaine 4% CREAM (LMX) 5 GM TP PRN (18:11)
[2017-07-05] MEDS ORDERED: *HR* OxyCODONE Immed Rel 5 MG TABLET PO PRN (18:11)
[2017-07-05] MEDS ORDERED: Simethicone 80 MG TAB.CHEW PO PRN (18:11)
[2017-07-05] MEDS ORDERED: CAPSAICIN TP PRN (18:11)
[2017-07-05] MEDS ORDERED: Sennosides/Docusate Sodium TABLET PO PRN (18:11)
--- NOTE | 2017-07-05 18:39 | Internal Med History&Physical ---
<Salinas Shepherd H - Last Filed: 07/05/17 19:54> Date of Encounter: 07/05/17 Internal Medicine - H&P: HPI History of present illness: Mr. Issa is a 67 year old male Internal Medicine - H&P: Meds Aspirin Enteric Coated [Aspirin EC] 81 mg PO DAILY #0 04/09/15 [History] Rivaroxaban [Xarelto] 20 mg PO DAILY #0 04/09/15 [History] Cholecalciferol (Vitamin D3) [Vitamin D3] 1,000 unit PO DAILY 03/12/16 [History] Albuterol Sulfate [Proair Hfa] 2 puff IH Q4H PRN 12/14/16 [History] Atorvastatin [Lipitor] 40 mg PO HS 12/14/16 [History] Gabapentin [Neurontin] 400 mg PO BID 12/14/16 [History] Pantoprazole Sodium [Protonix] 40 mg PO DAILY 12/14/16 [History] Polyethylene Glycol 3350 [MiraLAX Powder Bulk 17.9 Oz] 17 gm PO DAILY PRN [History] Sennosides/Docusate Sodium [Senna-Docusate Sodium Tablet] 1 tab PO BID PRN 12/14 [History] Spironolactone [Aldactone] 50 mg PO DAILY 12/14/16 [History] Tizanidine HCl [Zanaflex] 2 mg PO BID 12/14/16 [History] Potassium Chloride [Klor-Con Sprinkle] 20 meq PO BID 02/13/17 [History] DULoxetine [Cymbalta] 30 mg PO DAILY 02/14/17 [History] Tamsulosin [Flomax] 0.4 mg PO DAILY 02/14/17 [History] LORazepam [Ativan] 0.5 mg PO HS PRN #2 02/17/17 [Rx] Dofetilide [Tikosyn] 375 mcg PO BID 05/27/17 [History] Metoprolol [Lopressor] 25 mg PO BID 05/27/17 [History] Oxycodone HCl 10 mg PO TID PRN 05/27/17 [History] Amiodarone [Cordarone] 200 mg PO DAILY 07/05/17 [History] Capsaicin [Arthritis Pain Relief] 1 appl TP BID PRN 07/05/17 [History] Finasteride [Proscar] 5 mg PO DAILY 07/05/17 [History] Fluticasone/Salmeterol [Advair 250-50 Diskus] 1 each IH BID 07/05/17 [History] Furosemide [Lasix] 20 mg PO DAILY 07/05/17 [History] Insulin ASPART [Novolog Flexpen] 2 unit SQ AD PRN 07/05/17 [History] Lidocaine 4% CRM (LMX) [Lmx 4] 1 appl TP QID PRN 07/05/17 [History] Memantine HCl 10 mg PO BID 07/05/17 [History] Olodaterol HCl [Striverdi Respimat] 2 puff IH DAILY 07/05/17 [History] Simethicone [Gas-X] 160 mg PO BID PRN 07/05/17 [History] Triamcinolone Acet 0.1% CRM [Kenalog] 1 appl TP BID 07/05/17 [History] 3 Allergy/AdvReac Type Severity Reaction Status Date / Time IVP DYE Allergy Anaphylaxis Uncoded 07/05/17 13:07 All Systems PM: A 10-system review of systems was performed and is negative for pertinent findings except as documented above in the HPI. - Constitutional Vitals: Temp Pulse Resp BP Pulse Ox 98.1 F 61 18 118/85 99 07/05/17 13:00 07/05/17 17:43 07/05/17 17:43 07/05/17 17:43 07/05/17 17:43 Internal Med - H&P Results - Labs CBC & Chem 7: 07/05/17 13:10 07/05/17 13:10 Labs: Cardiac Enzymes 07/05/17 Range/Units 19:10 Troponin I < 0.03 (< 0.04) ng/mL - Attending Attestation Additional past medical history: Sick sinus syndrome status post pacemaker/ AICD. History of diastolic CHF Assessment and plan 1.unstable angina, continue heparin drip, cardiology was consulted Hold Reji, possible cardiac catheterization in the morning 2. Acute on chronic renal failure with history of chronic kidney disease stage III Hold Lasix, consider IV fluids, nephrology was consulted Time spent on this admission 40 minutes full code I have personally performed a face to face evaluation on this patient. I have reviewed and agree with the care plan. History and Exam by me shows: <Salvador Castro - Last Filed: 07/05/17 21:04> Date of Encounter: 07/05/17 Time of Encounter: 17:30 Assessment and Plan (1) Chest pain Current visit: Yes Status: Acute Acute chest pain that pt. reports began three days ago, is intermittent, is described as left-sided pain radiation to left arm, neck, shoulder, and back. Pt. states pain is dull ache with sharp and stabbing pain. Pain became worse this morning at 6 a.m. today. Pt. has risk factors of previous AL and hx of CVA x3. Former smoker smoking 2 PPD and quitting in 2009. Pt. at Dr. Flood's office today and EKG showed ST elevations in inferior leads. Previous heart catheterization in 2013. Cardiology consult ordered and discussed w/Dr. Xavier in ED w/recommendation to hold Xarelto and begin heparin drip d/t current chest pain. Concern is for AG and possible need for heart catheterization in a.m. NPO at midnight. Nephrology consult ordered and discussed w/Dr. Bray in ED. I appreciate the consults. Initial troponin <0.03. Will trend x 2. Continuous cardiac telemetry. Continue heparin drip. Nitroglycerin PRN. Continue pts. aspirin therapy, Cordarone, Lipitor, Lopressor, Aldactone. Pt. discussed w/Dr. Pereyra who is in agreement w/plan of care. Pt. is at high risk for cardiac event based on EKG changes, current sx, hx of previous AL/CVA, and risk factors. Inpatient. Qualifiers: Chest pain type: other chest pain Qualified Code(s): R07.89 - Other chest pain; R07.8 - Other chest pain (2) Acute kidney injury Current visit: Yes Status: Acute AG. IV fluids judiciously and avoid nephrotoxins. Nephrology consult ordered and discussed w/Dr. Bray in ED. I appreciate the consult. (3) GERD (gastroesophageal reflux disease) Current visit: Yes Status: Chronic Hx of chronic GERD. Continue pts. Protonix. Qualifiers: Esophagitis presence: esophagitis presence not specified Qualified Code(s) : K21.9 - Gastro-esophageal reflux disease without esophagitis (4) HTN (hypertension) Current visit: Yes Status: Chronic Hx of chronic HTN. Monitor pt. and VS. continue patient's Lopressor and Aldactone. Qualifiers: Hypertension type: essential hypertension Qualified Code(s): I10 - Essential (primary) hypertension (5) HLD (hyperlipidemia) Current visit: Yes Status: Chronic Hx of chronic HLD. Lipid panel in a.m. labs. Continue patient's Lipitor. Qualifiers: Hyperlipidemia type: pure hypercholesterolemia Qualified Code(s): E78.00 - Pure hypercholesterolemia, unspecified; E78.0 - Pure hypercholesterolemia (6) COPD (chronic obstructive pulmonary disease) Current visit: Yes Status: Chronic Hx of chronic COPD. Stable. Supplemental O2 w/titration and SpO2 monitoring. Continue pts. inhalers. Qualifiers: COPD type: unspecified COPD Qualified Code(s): J44.9 - Chronic obstructive pulmonary disease, unspecified (7) CHF (congestive heart failure) Current visit: Yes Status: Chronic Hx of chronic CHF. Stable. Continuous cardiac telemetry. Qualifiers: Congestive heart failure type: diastolic Congestive heart failure chronicity: chronic Qualified Code(s): I50.32 - Chronic diastolic (congestive ) heart failure (8) Diabetes mellitus Current visit: Yes Status: Chronic Hx of chronic diabetes. BG checks ACHS. A1c in a.m. labs. Continue pts. Novolog and add low-dose correction insulin sliding scale and hypoglycemia protocol. 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 Continuous cardiac telemetry. Continue patient's Cordarone, aspirin therapy, Lipitor, Lopressor, and Aldactone. Qualifiers: Coronary Disease-Associated Artery/Lesion type: unspecified vessel or lesion type [place] vs. transplanted heart: [place] heart Associated angina: without angina Qualified Code(s): I25.10 - Atherosclerotic heart disease of [place] coronary artery without angina pectoris (10) Depression with anxiety Current visit: Yes Status: Chronic Hx of chronic depression w/anxiety. Pts. reports that pts. mother is in Hospice and is dying which is adding to pts. stress and anxiety. Continue pts. Cymbalta. (11) Right sided weakness Current visit: Yes Status: Chronic Chronic right-sided weakness d/t previous CVA in April 2017. Pts. states he was receiving PT/OT therapy but sessions ran out. PT/OT consult ordered to assess pt. for ambulation/rehabilitation needs. (12) Atrial fibrillation Current visit: Yes Status: Chronic Hx of chronic paroxysmal Afib. Continuous cardiac telemetry. Continue pts. Cordarone. Will hold pts. Xarelto d/t current heparin drip. Qualifiers: Atrial fibrillation type: paroxysmal Qualified Code(s): I48.0 - Paroxysmal atrial fibrillation (13) DVT prophylaxis Current visit: Yes Status: Acute Pt. placed on heparin drip per cardiology d/t current chest pain. Monitor pt. for signs of bleeding. Internal Medicine - H&P: HPI Chief complaint: Chest pain Admitted From: Emergency Dept Plans for Post Hospital Care: Home History of present illness: Mr. Issa is a 67 year old male with medical hx of arthritis, A. fib, CHF, COPD , CAD, CVA 3 with last occurrence in April 2017, GERD, HLD, HTN, PE many years ago, syncope, and venous stasis presents from the ED with chief complaint chest pain for the past 3 days. Patient states it has been intermittent and is pressure-like and stabbing pain in the left side of his chest with radiation to arm, neck, shoulder, and back. Patient was seen by Dr. Flood today and found to have ST elevations on EKG and was sent to ED. Previous heart catheterization in 2013. Patient also reports chronic pain in bilateral knees and back related to injury. Pt. denies use of nitroglycerin but states he takes aspirin daily as well as Xarelto for Afib. Pt. denies recent illness, fever, chills, vomiting, headache, changes in vision, abdominal pain, diarrhea, constipation, unusual bleeding, dizziness, lightheadedness, pre-syncope, or syncope. Past Med Surg Social Fam HX - Past Medical History Source: patient, old records reviewed, obtained from family Medical history: arthritis, atrial fibrillation, CHF, COPD, coronary artery disease, CVA (x3 w/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), GERD, hyperlipidemia, hypertension, pulmonary embolus (Many years ago), syncope, venous stasis, other Psychiatric history: anxiety, depression - Past Surgical History Surgical History: herniorrhaphy, knee replacement, pacemaker/AICD, other - Social History Smoking Status: Former smoker Packs per day: 2 PPD - Reports quitting in 2009 Smokeless Tobacco Status: No Alcohol use: none Drug use: none Current living situation: Home, With Family Activity Level: Uses cane/walker Recent Out of Country Travel Within the Last 8 Weeks: No Exposure or Possible Exposure to Illness During Travel: No - Family History Father Adopted: No Race: Family Member Ethnicity: Non- Living Status: Age at : 42 Cause of : Leukemia Hx Family Cancer: Yes (Leukemia) Mother Adopted: No Race: Family Member Ethnicity: Non- Twin of Family Member: Yes Living Status: Still Living Hx Family Cardiac Disorders: Yes (CHF, Afib) Hx Family Genitourinary Disorders: Yes (CKD) Hx Family Autoimmune Disorders: Yes (arthritis) Brother Race: Family Member Ethnicity: Non- Living Status: Still Living Hx Family Musculoskeletal Disorders: Yes (Back pain r/t fall) Sister Race: Family Member Ethnicity: Non- Living Status: Still Living Hx Family Medical Disorders: No All Systems PM: A 10-system review of systems was performed and is negative for pertinent findings except as documented above in the HPI. - Constitutional Constitutional: as per HPI, weakness (Right-sided r/t CVA in April 2017), no chills, no fever(s), no night sweats - EENT Eyes: no change in vision, no discharge, no pain, no photophobia Ears: no ear discharge, no ear pain, no tinnitus Nose, mouth and throat: no dysphagia, no nasal discharge, no neck pain, no sore throat - Breasts Breasts: as per HPI - Cardiovascular Cardiovascular ROS IM: as per HPI, chest pain, dyspnea, dyspnea on exertion, irregular heart rhythm, no diaphoresis, no lightheadedness, no palpitations, no syncope - Respiratory Respiratory: as per HPI, cough, dyspnea, dyspnea on exertion, no wheezing, no excessive phlegm production - Gastrointestinal Gastrointestinal: no abdominal pain, no diarrhea, no hematemesis, no hematochezia, no melena, no nausea, no vomiting - Genitourinary Genitourinary ROS male: as per HPI, difficulty urinating - Musculoskeletal Musculoskeletal ROS IM: no numbness, no tingling - Integumentary Integumentary IM: no rash, no unusual bruising - Neurological Neurological ROS: no confusion, no convulsions, no focal weakness, no numbness, no tingling, no tremor(s) - Psychiatric Psychiatric: as per HPI, anxiety, depression - Endocrine Endocrine IM: as per HPI - Hematologic/Lymphatic Hematologic/Lymphatic: no easy bruising - Allergic/Immunologic Allergic/Immunologic: as per HPI - Constitutional Vitals: Temp Pulse Resp BP Pulse Ox 98.1 F 61 18 118/85 99 07/05/17 13:00 07/05/17 17:43 07/05/17 17:43 07/05/17 17:43 07/05/17 17:43 General appearance: Present: cooperative, A&O X 3, pleasant, obese, severe distress, answers questions appropriately - Head Head exam: Present: atraumatic, normal inspection, normocephalic - Eye Eye exam: Present: PERRL, conjuntiva pink, sclera anicteric Pupils: Present: PERRL - ENT ENT exam: Present: normal exam - Neck Neck exam general surgery: Present: normal inspection, supple, trachea midline. Absent: lymphadenopathy - Respiratory Respiratory exam: Present: CTAB. Absent: accessory muscle use, rales, rhonchi, wheezes - Cardiovascular Cardiovascular exam: Present: RRR, +S1, +S2. Absent: diastolic murmur, gallop, rubs, systolic murmur - GI/Abdominal GI/Abdominal exam: Present: normal bowel sounds, soft, no peritoneal signs. Absent: distended, tenderness - Rectal Rectal exam: Present: deferred - Additional comments: exam deferred. - Extremities Exam Extremities exam: Present: pedal edema, tenderness (Bilateral knees), warm, radial pulses palpable and symmetrical. Absent: calf tenderness, cyanotic - Back Exam Back exam: Present: normal inspection - Neurological Exam Neurological exam: Present: CN II-XII intact, oriented X3, no focal deficits. Absent: pronater drift, facial droop, speech deficit - Psychiatric Psychiatric exam: Present: anxious - Skin Skin exam: Present: dry, intact Internal Med - H&P Results - Labs CBC & Chem 7: 07/05/17 13:10 07/05/17 13:10 - EKG Data Prior EKG available for review: yes EKG comments: 07/05/17 18:47 EKG dated 01/06/17 shows sinus rhythm, normal ECG. EKG dated 06/01/17 shows sinus rhythm and nonspecific T-wave changes. EKG dated 07/05/17 shows electronic atrial pacemaker, marked ST elevation, consider inferior injury (acute AL). - Diagnostic Studies Chest x-ray Additional comments: Impressions Chest X-Ray 07/05/17 13:04 IMPRESSION: Mild left basilar atelectasis versus scarring. D/ / Dilshad Harrell MD / Dilshad Harrell MD Interpreting Provider: Dilshad Harrell MD
[2017-07-05] MEDS ORDERED: Perflutren Lipid Microsphere 1.3 ML in 0.9 % Sodium Chloride 8.7 ML IVP ONE (19:42)
[2017-07-05] MEDS ORDERED: D5% in Water 1,000 ML IVC PRN (19:45)
[2017-07-05] MEDS ORDERED: *HR* Dextrose 50 % in Water (Syg) 50 ML SYRINGE IVP PRN (19:45)
[2017-07-05] MEDS ORDERED: Dextrose Gel 15 GM/37.5 ML TUBE PO PRN ×2 (19:45)
[2017-07-05] MEDS ORDERED: Perflutren Lipid Microsphere 2 ML VIAL ONE (19:47)
[2017-07-05] MEDS ORDERED: Methyl Salicylate/Menthol 28 GM TUBE TP PRN (19:51)
[2017-07-05] MEDS: Budesonide/Formoterol 80/4.5 MDI IH SCH (20:25)
[2017-07-05] MEDS: tiZANidine 4 MG TABLET PO SCH (20:31)
[2017-07-05] MEDS: Gabapentin 400 MG CAPSULE PO SCH (20:31)
[2017-07-05] MEDS: Insulin LISPRO 300 UNITS/3 ML VIAL SQ SCH (20:32)
[2017-07-05] MEDS: Triamcinolone Acet 0.1% CRM 15 GM TUBE TP SCH (20:33)
[2017-07-05] MEDS ORDERED: DOFETILIDE PO SCH (21:00)
[2017-07-05] MEDS: traZODone 50 MG TABLET PO SCH (21:23)
[2017-07-05] MEDS: Melatonin 3 MG TABLET PO SCH (21:24)
[2017-07-06] MEDS: 0.9 % Sodium Chloride 1,000 ML IVC SCH ×3 (04:26→22:07)
[2017-07-06 05:43] LABS: Basophils # 0.1 K/mcL (0.0-0.2); Basophils % 0.7 %; Eosinophils # 0.4 K/mcL (0.0-0.6); Eosinophils % 4.1 %; Hematocrit 42.7 % (37.5-50.1); Immature Granulocytes % 0.5 % (0-4); Lymphocytes # 1.7 K/mcL (0.6-4.6); Lymphocytes % 19.4 %; Mean Corpuscular HGB Conc 32.6 g/dL (31.6-35.5); Mean Corpuscular Hemoglobin 27.8 pg (28.0-33.3); Mean Corpuscular Volume 85.4 fL (83.0-100.0); Mean Platelet Volume 9.4 fL (9.4-12.4); Monocytes % 12.1 %; Neutrophils # 5.4 K/mcL (1.6-8.9); Platelet Count 196 K/mcL (140-400); Red Cell Distribution Width 14.9 % (11.5-14.5); Segmented Neutrophils % 63.2 %
[2017-07-06 05:45] LABS: Hemoglobin 13.9 g/dL (12.9-16.9); INR 1.6; Prothrombin Time 17.6 Seconds (9.4-12.1)
[2017-07-06 05:48] LABS: Activated Partial Thrombo Time 76.2 Seconds (26.0-36.0)
[2017-07-06 05:54] LABS: Albumin 3.4 g/dL (3.5-5.7); Albumin/Globulin Ratio 1.5 (1.1-2.2); Bilirubin,Total 0.4 mg/dL (0.3-1.0); Calcium 8.9 mg/dL (8.6-10.3); Chol/HDL Ratio 5.3 (0-4.9); Globulin 2.3 g/dL (2.4-3.5); Magnesium 2.5 mg/dL (1.6-2.6); Potassium 4.2 mEq/L (3.5-5.1); Total Protein 5.7 g/dL (6.4-8.9)
[2017-07-06 05:55] LABS: Hemoglobin A1C 5.9 %
[2017-07-06] MEDS: Insulin LISPRO 300 UNITS/3 ML VIAL SQ SCH ×4 (08:01→22:10)
[2017-07-06] MEDS ORDERED: Furosemide 20 MG TABLET PO SCH (09:00)
[2017-07-06] MEDS ORDERED: Spironolactone 25 MG TABLET PO SCH (09:00)
[2017-07-06] MEDS: *HR* Amiodarone 200 MG TABLET PO SCH (09:31)
[2017-07-06] MEDS: Gabapentin 400 MG CAPSULE PO SCH ×2 (09:31→22:08)
[2017-07-06] MEDS: Finasteride 5 MG TABLET PO SCH (09:31)
[2017-07-06] MEDS: Aspirin Enteric Coated 81 MG Tablet PO SCH (09:31)
[2017-07-06] MEDS: Cholecalciferol (D-3) 1,000 UNIT TABLET PO SCH (09:32)
[2017-07-06] MEDS: tiZANidine 4 MG TABLET PO SCH (09:32)
--- NOTE | 2017-07-06 09:54 | Cardiology Progress Note ---
Date of Encounter: 07/06/17 Time of Encounter: 08:30 Assessment and Plan (1) Chest pain Current Visit: Yes Status: Acute Per cardiology: -Patient preseted to oupatient cardiology office and complained of chest pain. ECG was done in office with changes noted inferiorly. -Patient was sent to [facility] due to chest pain. -Of note, AG was noted on admission. Awaiting nephrology recommendations. -Patient denies current chest pain. -On asa, statin, beta brisa, and heparin drip. -Troponins negative x3. -TTE pending. -Plan for C when ok with nephrology. Qualifiers: Chest pain type: other chest pain Qualified Code(s): R07.89 - Other chest pain; R07.8 - Other chest pain (2) Acute kidney injury Current Visit: No Status: Acute Per cardiology: -Creatinine 2.41 on admission. Today 1.89. -creatinine 06/02/17 1.27. -Nephrology consulted. -Appreciate nephrology recommendations. (3) Atrial fibrillation Current Visit: No Status: Acute Per cardiology: -Known atrial fibrillation. -Continue rate control strategy -on xarelto as outpatient, now on hold due to plan for LHC when able. Currently on heparin drip. -On beta brisa and amiodarone. -Continue telemetry. Qualifiers: Atrial fibrillation type: paroxysmal Qualified Code(s): I48.0 - Paroxysmal atrial fibrillation Discussion w patient/family: The assessment and plan as outlined above was discussed with the patient who expressed understanding and agreement. All questions were answered. Thank you for involving us in the care of your patient. Please call with any questions. Discussed and reviewed with . Subjective Principal diagnosis: chest pain, weakness Interval history: Patient states he just feels very tired today. Patient denies chest pain this morning. Patient states feels somewhat short of breath. Objective Vital Signs, Last 4 Hours Temp Pulse Resp BP Pulse Ox 07/06/17 07:11 98.6 F 60 15 90/65 95 General: Conversant, No Apparent Distress HEENT: Atraumatic, Normocephaly, Mucus Membranes Moist Neck: No JVD, Normal carotid pulses Cardiac: Reg Rate and Rhythm, Normal S1 and S2, No Murmur Lungs: Normal Breath Sounds, No Wheeze, Rales, Rhonchi Neuro: Alert and responsive, No focal deficits noted Abdomen: Soft, Non-Tender Skin: No rashes noted on visualized skin Musculoskeletal: No Chest Wall Tenderness Extremities: No Clubbing, No Cyanosis, No Edema, Normal Pulses Results 07/06/17 05:20 07/06/17 05:20 Lab Results Impressions Chest X-Ray 07/05/17 13:04 IMPRESSION: Mild left basilar atelectasis versus scarring. D/ / Dilshad Harrell MD / Dilshad Harrell MD Interpreting Provider: Dilshad Harrell MD Active Medications Albuterol Sulfate (Albuterol Inhaler) 2 puff IH Q4H PRN PRN Reason: Shortness Of Breath Stop: 01/04/18 18:12 Amiodarone HCl (Cordarone) 200 mg PO DAILY [facility] Stop: 01/05/18 09:01 Last Admin: 07/06/17 09:31 Dose: 200 mg Aspirin (Aspirin Ec) 81 mg PO DAILY [facility] Stop: 01/05/18 09:01 Last Admin: 07/06/17 09:31 Dose: 81 mg Atorvastatin Calcium (Lipitor) 40 mg PO HS [facility]I Stop: 01/04/18 21:01 Last Admin: 07/05/17 20:30 Dose: 40 mg Budesonide/Formoterol Fumarate (Symbicort) 1 puff IH BIDR [facility] Stop: 01/04/18 22:01 Last Admin: 07/05/17 20:25 Dose: 1 puff Dextrose/Water (Dextrose 50% (Syg)) 25 ml IVP AD PRN PRN Reason: Hypoglycemia Stop: 01/04/18 19:46 Duloxetine HCl (Cymbalta) 30 mg PO DAILY [facility]I Stop: 01/05/18 09:01 Last Admin: 07/06/17 09:32 Dose: 30 mg Finasteride (Proscar) 5 mg PO DAILY SHI PRN Reason: Protocol Stop: 01/05/18 09:01 Last Admin: 07/06/17 09:31 Dose: 5 mg Gabapentin (Neurontin) 400 mg PO BID [facility] Stop: 01/04/18 21:01 Last Admin: 07/06/17 09:31 Dose: 400 mg Glucagon (Glucagen) 1 mg IM ONCE PRN PRN Reason: Hypoglycemia Stop: 01/04/18 19:46 Glucose (Gluctose) 15 gm PO ONCE PRN PRN Reason: Hypoglycemia Stop: 01/04/18 19:46 Glucose (Gluctose) 30 gm PO ONCE PRN PRN Reason: Hypoglycemia Stop: 01/04/18 19:46 Heparin Sodium (Porcine) (Heparin) 4,000 unit IVP Q6HR PRN PRN Reason: SEE COMMENTS Stop: 01/04/18 15:51 Heparin Sodium (Porcine) (Heparin) 2,000 unit IVP Q6H PRN PRN Reason: SEE COMMENTS Stop: 01/04/18 15:51 Sodium Chloride (0.9 % Sodium Chloride) 1,000 mls @ 100 mls/hr IVC .Q10H SHI Stop: 01/04/18 16:01 Last Admin: 07/06/17 04:26 Dose: 100 mls/hr Heparin Sodium/Dextrose (Heparin 25,000 Unit/500 Ml D5w) 25,000 unit in 500 mls @ 19.885 mls/hr IVC .Q24H SHI; 8 UNIT/KG/HR PRN Reason: Protocol Stop: 01/04/18 16:01 Last Titration: 07/06/17 06:34 Dose: 8 unit/kg/hr, 19.885 mls/hr Dextrose (Dextrose 5%) 1,000 mls @ 100 mls/hr IVC .Q10H PRN PRN Reason: HYPOGLYCEMIA Stop: 01/04/18 19:46 Insulin Human Lispro (Humalog) 0 units SQ TIDAC SHI PRN Reason: Protocol Stop: 01/05/18 07:31 Last Admin: 07/06/17 08:01 Dose: Not Given Insulin Human Lispro (Humalog) 0 units SQ HS SHI PRN Reason: Protocol Stop: 01/04/18 21:01 Last Admin: 07/05/17 20:32 Dose: Not Given Lidocaine HCl (Lmx 4) 5 gm TP QID PRN PRN Reason: Pain Stop: 01/04/18 18:12 Lorazepam (Ativan) 0.5 mg PO HS PRN PRN Reason: Anxiety Stop: 01/04/18 18:12 Melatonin (Melatonin) 9 mg PO HS SHI Stop: 01/04/18 21:01 Last Admin: 07/05/17 21:24 Dose: 9 mg Memantine (Namenda) 10 mg PO BID [facility]I Stop: 01/04/18 21:01 Last Admin: 07/06/17 09:31 Dose: 10 mg Menthol/Methyl Salicylate (Bengay) 1 appl TP BID PRN PRN Reason: Pain Stop: 01/04/18 19:52 Metoprolol Tartrate (Lopressor) 25 mg PO BID SHI Stop: 01/04/18 21:01 Last Admin: 07/06/17 09:31 Dose: 25 mg Naloxone HCl (Narcan) 0.4 mg IVP Q2MIN PRN PRN Reason: Opioid Reversal Stop: 01/04/18 18:04 Omeprazole (Prilosec) 20 mg PO 0630 SHI Stop: 01/05/18 06:31 Oxycodone HCl (Roxicodone) 10 mg PO TID PRN PRN Reason: Pain Pharmacy Profile Note (Patient Taking Own Medication) 2 each IH DAILY [facility] Stop: 01/05/18 09:01 Polyethylene Glycol (Miralax Bowel Prep) 17 gm PO DAILY PRN PRN Reason: Constipation Stop: 01/04/18 18:12 Potassium Chloride (Potassium Chloride) 20 meq PO BID SHI Stop: 01/04/18 21:01 Last Admin: 07/06/17 09:32 Dose: 20 meq Senna/Docusate Sodium (Senna Plus) 1 each PO BID PRN; Protocol PRN Reason: Constipation Stop: 01/04/18 18:12 Simethicone (Gas-X) 160 mg PO BID PRN PRN Reason: Indigestion Stop: 01/04/18 18:12 Spironolactone (Aldactone) 50 mg PO DAILY [facility] Stop: 01/05/18 09:01 Tamsulosin HCl (Flomax) 0.4 mg PO DAILY [facility]I PRN Reason: Protocol Stop: 01/05/18 09:01 Last Admin: 07/06/17 09:32 Dose: 0.4 mg Tizanidine HCl (Zanaflex) 2 mg PO BID [facility] Stop: 01/04/18 21:01 Last Admin: 07/06/17 09:32 Dose: 2 mg Trazodone HCl (Trazodone) 150 mg PO HS [facility] Stop: 01/04/18 21:01 Last Admin: 07/05/17 21:23 Dose: 150 mg Triamcinolone Acetonide (Kenalog) 1 appl TP BID [facility] PRN Reason: Protocol Stop: 01/04/18 21:01 Last Admin: 07/05/17 20:33 Dose: 1 appl Vitamin D (Vitamin D) 1,000 unit PO DAILY [facility] Stop: 01/05/18 09:01 Last Admin: 07/06/17 09:32 Dose: 1,000 unit Laboratory Tests 06/01/17 06/02/17 07/05/17 05:20 05:39 13:10 Hgb INR Creatinine 1.37 H 1.27 H 2.41 H Troponin I 07/05/17 07/05/17 07/06/17 13:10 19:10 00:46 Hgb INR Creatinine Troponin I < 0.03 < 0.03 < 0.03 07/06/17 07/06/17 07/06/17 05:20 05:20 05:20 Hgb 13.9 D INR 1.6 Creatinine 1.89 H Troponin I - Imaging and Cardiology Chest Xray: report reviewed Stress Test: report reviewed Echo: report reviewed - EKG Interpretation EKG results cardiology: other (Telemetry reviewed with average HR previous 12 hours noted to be 60, paced rhythm.) Consult Discharge Plan - Plan Referrals: [facility] [Primary Care Provider] -
[2017-07-06] MEDS: Budesonide/Formoterol 80/4.5 MDI IH SCH ×2 (10:21→20:02)
[2017-07-06] MEDS ORDERED: *HR* HYDROcodone/Acet 5/325 mg TABLET PO ONE (11:45)
[2017-07-06] MEDS: Triamcinolone Acet 0.1% CRM 15 GM TUBE TP SCH ×2 (12:36→22:10)
--- NOTE | 2017-07-06 12:40 | Internal Med Progress Note ---
Date of Encounter: 07/06/17 Time of Encounter: 11:30 - Assessment and plan (1) Chest pain Current Visit: Yes Status: Acute Assessment and plan: Cardiology on board Serial TNI negative continue heparin gtt, asa, statin, bb 2D echo awaiting nephrology clearance for [facility] Qualifiers: Chest pain type: other chest pain Qualified Code(s): R07.89 - Other chest pain; R07.8 - Other chest pain (2) [id number] kidney injury Current Visit: Yes Status: Acute Assessment and plan: Nephrology evaluation requested renal function improved from previous day continue to hold Spironolactone, lasix at this time gentle IV fluid hydration will closely monitor renal function Qualifiers: Acute renal failure type: unspecified Chronic kidney disease stage: stage 3 (moderate) Qualified Code(s): N17.9 - Acute kidney failure, unspecified; N18.3 - Chronic kidney disease, stage 3 (moderate); N18.3 - Chronic kidney disease, stage 3 (moderate) (3) HTN (hypertension) Current Visit: Yes Status: Chronic Assessment and plan: Noted to be hypotensive this morning hold antihypertensive for SBP<100 hold narcotics for SBP<110 will closely monitor BP Qualifiers: Hypertension type: essential hypertension Qualified Code(s): I10 - Essential (primary) hypertension (4) COPD (chronic obstructive pulmonary disease) Current Visit: Yes Status: Chronic Assessment and plan: not in acute exacerbation continue home meds Qualifiers: COPD type: unspecified COPD Qualified Code(s): J44.9 - Chronic obstructive pulmonary disease, unspecified (5) CHF (congestive heart failure) Current Visit: Yes Status: Chronic Qualifiers: Congestive heart failure type: diastolic Congestive heart failure chronicity: chronic Qualified Code(s): I50.32 - Chronic diastolic (congestive ) heart failure (6) Atrial fibrillation Current Visit: Yes Status: Chronic Assessment and plan: rate controlled with Amiodarone anticoagulated with Xarelto Qualifiers: Atrial fibrillation type: paroxysmal Qualified Code(s): I48.0 - Paroxysmal atrial fibrillation (7) Obesity (BMI 30-39.9) Current Visit: Yes Status: Chronic (8) Chronic pain Current Visit: Yes Status: Acute Assessment and plan: history of neuropathy continue home gabapentin(renally dosed) hold narcotics if mental status lethargic or SBP<110 will obtain rapid flu screening and resp viral panel Qualifiers: Chronic pain type: other chronic pain Qualified Code(s): G89.29 - Other chronic pain - Subjective Interval history: Patient seen and examined at bedside. Resting in bed and reports of having generalized pain in bilateral extremities. States he has chronic pain/ neuropathy for which he takes Gabapentin and Hydrocodone 10mg TID. Pt is AAO x 3 and able to communicate however appears drowsy. BP: 103/71 Upon further evaluation, he states his left sided chest pain is reproducible and worsened with deep inspiration. Pt noted to have left chest wall tenderness upon palpation. Cardiology on board, currently on heparin gtt tentative LHC once cleared by nephrology - Constitutional Vitals: Temp Pulse Resp BP Pulse Ox 97.9 F 60 16 103/71 95 07/06/17 12:00 07/06/17 12:00 07/06/17 12:00 07/06/17 12:33 07/06/17 12:00 General appearance: Present: cooperative, A&O X 3, pleasant, no acute distress, obese, answers questions appropriately - Head Head exam: Present: atraumatic, normocephalic - Eye Eye exam: Present: conjuntiva pink, sclera anicteric - Respiratory Respiratory exam: Absent: respiratory distress, wheezes (equal air entry bilaterally ) - Cardiovascular Cardiovascular exam: Present: RRR, +S1, +S2. Absent: diastolic murmur, gallop, rubs, systolic murmur Additional comments: left chest wall tenderness to palpation - GI/Abdominal GI/Abdominal exam: Present: normal bowel sounds, soft, no peritoneal signs. Absent: distended, tenderness - Extremities Exam Extremities exam: Present: tenderness (b/l LE and UE tenderness to palpation ), warm, radial pulses palpable and symmetrical. Absent: calf tenderness - Neurological Exam Neurological exam: Present: alert, oriented X3 Internal Medicine: Result - Labs CBC & Chem 7: 07/06/17 05:20 07/06/17 05:20 Labs: Short CBC 07/06/17 Range/Units 05:20 WBC 8.6 (4.3-11.1) K/mcL Hgb 13.9 D (12.9-16.9) g/dL Hct 42.7 (37.5-50.1) % Plt Count 196 (140-400) K/mcL Neutrophils # 5.4 (1.6-8.9) K/mcL BMP 07/06/17 05:20 Sodium 135 L Potassium 4.2 Chloride 99 Carbon Dioxide 28 BUN 50 H Creatinine 1.89 H Glucose 116 H Calcium 8.9 Cardiac Enzymes 07/05/17 07/06/17 Range/Units 19:10 00:46 Troponin I < 0.03 < 0.03 (< 0.04) ng/mL Liver Function 07/06/17 Range/Units 05:20 Total Bilirubin 0.4 (0.3-1.0) mg/dL AST 16 (13-39) Units/L ALT 29 (7-52) Units/L Alkaline Phosphatase 96 (34-104) Units/L Albumin 3.4 L (3.5-5.7) g/dL - ABG Interpretation ABG results: PT/INR, D-dimer PT 17.6 Seconds (9.4-12.1) H 07/06/17 05:20 Consult Discharge Plan - Plan [facility] [Primary Care Provider] -
--- NOTE | 2017-07-06 14:08 | Nephrology Consult Note ---
Date of Encounter: 07/06/17 Time of Encounter: 14:02 Assessment and Plan (1) Acute kidney injury Current Visit: No Status: Acute AG on CKD IIIa. Patient presents with an acute rise in his creatinine at 2.41 , baseline appears to be 1.3-1.5. CKD likely related to underlying hypertension and type 2 diabetes. Patient reports history of prostate problems with urinary retention and has required urinary catheterization in the past. He does report a decreased urine output over the last several days as well as decreased oral intake. Therefore his AG is likely related to postobstructive uropathy. Prerenal hypovolemia may also be contributing. Patient states that his urine output is much better after IV fluids and his creatinine has responded appropriately, down to 1.84. Discussed with cardiology regarding the need for left heart catheter and given his AKA on CK D ideally we would try to avoid the contrast load associated with LHC. If clinically able we would recommend holding off on LHC until his renal function returns to baseline. If and when the patient undergoes LHC we would recommend pre-and post procedure fluid hydration. We will obtain retroperitoneal ultrasound to evaluate for hydronephrosis and/or urinary retention. No indications for acute renal replacement at this time. Would recommend holding home Lasix as well as any BRENDEN inhibitor or angiotensin receptor brisa in the setting of AG. Continue to follow a renal protective strategy by avoiding nephrotoxins and dosing medications based on GFR. Thank you for consulting [facility], will continue to follow along. (2) CKD (chronic kidney disease) Current Visit: No Status: Acute Qualifiers: Chronic kidney disease stage: stage 3 (moderate) Qualified Code(s): N18.3 - Chronic kidney disease, stage 3 (moderate) (3) HTN (hypertension) Current Visit: Yes Status: Chronic Qualifiers: Hypertension type: essential hypertension Qualified Code(s): I10 - Essential (primary) hypertension (4) HLD (hyperlipidemia) Current Visit: Yes Status: Chronic Qualifiers: Hyperlipidemia type: pure hypercholesterolemia Qualified Code(s): E78.00 - Pure hypercholesterolemia, unspecified; E78.0 - Pure hypercholesterolemia (5) COPD (chronic obstructive pulmonary disease) Current Visit: Yes Status: Chronic Qualifiers: COPD type: unspecified COPD Qualified Code(s): J44.9 - Chronic obstructive pulmonary disease, unspecified (6) CHF (congestive heart failure) Current Visit: Yes Status: Chronic Qualifiers: Congestive heart failure type: diastolic Congestive heart failure chronicity: chronic Qualified Code(s): I50.32 - Chronic diastolic (congestive ) heart failure (7) Atrial fibrillation Current Visit: Yes Status: Chronic Qualifiers: Atrial fibrillation type: paroxysmal Qualified Code(s): I48.0 - Paroxysmal atrial fibrillation (8) BPH (benign prostatic hyperplasia) Current Visit: Yes Status: Acute Qualifiers: Lower urinary tract symptom presence: symptoms present Lower urinary tract symptom detail: urinary obstruction Qualified Code(s): N40.1 - Benign prostatic hyperplasia with lower urinary tract symptoms; N13.8 - Other obstructive and reflux uropathy; N13.8 - Other obstructive and reflux uropathy History of Present Illness - Reason for Consult Consult date: 07/06/17 Acute Kidney Injury, Chronic Kidney Disease Requesting physician: Alcides Harrell - Chief Complaint Chest Pain - History of Present Illness Patient is a 67-year-old male with history of CKD stage III, CHF, type 2 diabetes, COPD presents with abnormal EKG and chest pain. Patient states that he has been having intermittent left-sided chest pain for the last month. He saw his mold checker yesterday who performed an EKG sent him to the emergency department. Patient was evaluated for ACS overnight and had negative troponins 3. Patient reports occasional intermittent left-sided chest pain that is worse with palpation. He denies shortness of breath, lower extremity swelling, fever, chills, decreased appetite, nausea, vomiting. He denies recent contrast exposure or NSAID use. Past Med Surg Social Fam HX - Past Medical History Medical history: arthritis, atrial fibrillation, CHF, COPD, coronary artery disease, CVA (x3 w/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), GERD, hyperlipidemia, hypertension, pulmonary embolus (Many years ago), syncope, venous stasis, other Psychiatric history: anxiety, depression - Past Surgical History Surgical History: herniorrhaphy, knee replacement, pacemaker/AICD, other - Social History Smoking Status: Former smoker Packs per day: 2 PPD - Reports quitting in 2009 Smokeless Tobacco Status: No Alcohol use: none Drug use: none - Family History Father Adopted: No Race: Family Member Ethnicity: Non- Living Status: Age at : 42 Cause of : Leukemia Hx Family Cardiac Disorders: No Hx Family Respiratory Disorders: No Hx Family Cancer: Yes (Leukemia) Hx Family GI Disorders: No Hx Family Endocrine Disorder: No Hx Family Neuromuscular Disorders: No Hx Family Neurologic Disorders: No Hx Family HEENT Disorders: No Hx Family Autoimmune Disorders: No Brother Race: Family Member Ethnicity: Non- Living Status: Still Living Hx Family Musculoskeletal Disorders: Yes (Back pain r/t fall) Sister Race: Family Member Ethnicity: Non- Living Status: Still Living Hx Family Medical Disorders: No Mother Adopted: No Race: Family Member Ethnicity: Non- Twin of Family Member: Yes Living Status: Still Living Hx Family Cardiac Disorders: Yes (CHF, Afib) Hx Family Respiratory Disorders: No Hx Family Cancer: Yes (father leukemia) Hx Family GI Disorders: No Hx Family Genitourinary Disorders: Yes (CKD) Hx Family Endocrine Disorder: No Hx Family Neuromuscular Disorders: No Hx Family Neurologic Disorders: No Hx Family HEENT Disorders: No Hx Family Autoimmune Disorders: Yes (arthritis) Medications and Allergies Aspirin Enteric Coated [Aspirin EC] 81 mg PO DAILY #0 04/09/15 [History] Rivaroxaban [Xarelto] 20 mg PO DAILY #0 04/09/15 [History] Cholecalciferol (Vitamin D3) [Vitamin D3] 1,000 unit PO DAILY 03/12/16 [History] Albuterol Sulfate [Proair Hfa] 2 puff IH Q4H PRN 12/14/16 [History] Atorvastatin [Lipitor] 40 mg PO HS 12/14/16 [History] Gabapentin [Neurontin] 400 mg PO BID 12/14/16 [History] Pantoprazole Sodium [Protonix] 40 mg PO DAILY 12/14/16 [History] Polyethylene Glycol 3350 [MiraLAX Powder Bulk 17.9 Oz] 17 gm PO DAILY PRN [History] Sennosides/Docusate Sodium [Senna-Docusate Sodium Tablet] 1 tab PO BID PRN 12/14 [History] Spironolactone [Aldactone] 50 mg PO DAILY 12/14/16 [History] Tizanidine HCl [Zanaflex] 2 mg PO BID 12/14/16 [History] Potassium Chloride [Klor-Con Sprinkle] 20 meq PO BID 02/13/17 [History] DULoxetine [Cymbalta] 30 mg PO DAILY 02/14/17 [History] Tamsulosin [Flomax] 0.4 mg PO DAILY 02/14/17 [History] LORazepam [Ativan] 0.5 mg PO HS PRN #2 02/17/17 [Rx] Metoprolol [Lopressor] 25 mg PO BID 05/27/17 [History] Oxycodone HCl 10 mg PO TID PRN 05/27/17 [History] Amiodarone [Cordarone] 200 mg PO DAILY 07/05/17 [History] Capsaicin [Arthritis Pain Relief] 1 appl TP BID PRN 07/05/17 [History] Finasteride [Proscar] 5 mg PO DAILY 07/05/17 [History] Fluticasone/Salmeterol [Advair 250-50 Diskus] 1 each IH BID 07/05/17 [History] Furosemide [Lasix] 20 mg PO DAILY 07/05/17 [History] Insulin ASPART [Novolog Flexpen] 2 unit SQ AD PRN 07/05/17 [History] Lidocaine 4% CRM (LMX) [Lmx 4] 1 appl TP QID PRN 07/05/17 [History] Memantine HCl 10 mg PO BID 07/05/17 [History] Olodaterol HCl [Striverdi Respimat] 2 puff IH DAILY 07/05/17 [History] Simethicone [Gas-X] 160 mg PO BID PRN 07/05/17 [History] Triamcinolone Acet 0.1% CRM [Kenalog] 1 appl TP BID 07/05/17 [History] 3 Allergy/AdvReac Type Severity Reaction Status Date / Time IVP DYE Allergy Anaphylaxis Uncoded 07/05/17 13:07 Review of Systems All Systems: reviewed and no additional remarkable complaints except as stated Exam - Vital Signs Vital signs: Initial Vital Signs Temp Pulse Resp BP Pulse Ox 98.1 F 74 16 112/86 96 07/05/17 13:00 07/05/17 13:00 07/05/17 13:00 07/05/17 13:00 07/05/17 13:00 Vital Signs - Last 8 Hours Temp Pulse Resp BP Pulse Ox 07/06/17 12:33 103/71 07/06/17 12:00 97.9 F 60 16 103/71 95 07/06/17 10:21 15 95 01/04/18 07:11 98.6 F 60 15 90/65 95 Intake and Output 07/05/17 07/06/17 07/06/17 23:59 07:59 15:59 Intake Total 141 / 141 1124 / 1124 1000 / 1000 Output Total 500 / 500 900 / 900 500 / 500 Balance -359 / -359 224 / 224 500 / 500 Intake: IV Fluids 141 / 141 1124 / 1124 1000 / 1000 0.9 % Sodium Chloride 1,000 ML 1000 / 1000 1000 / 1000 @ 100 mls/hr IVC .Q10H [facility] Rx#: [id number] Heparin 25,000 UNIT/500 ML D5W 141 / 141 124 / 124 25,000 unit In 500 ml @ 8 UNIT/ KG/HR 19.885 mls/hr IVC .Q24H [facility] Rx#:[id number] Oral 0 / 0 0 / 0 Output: Catheter 500 / 500 900 / 900 500 / 500 Other: Meal Lunch Percent of Meal Consumed 0% Weight 124.3 kg Blood Glucose* 109 122 122 Patient Weight 07/06/17 23:59 Weight 124.3 kg - General Appearance General appearance: well-developed, well-nourished, appears started age EENT: ATNC, mucous membranes moist Neck: supple Respiratory: clear Cardiology: no murmurs, no rub, no gallops, no edema, regular rate, irregular rhythm Additional Comments: Patient has tenderness to palpation on the left lateral chest wall Gastrointestinal: normoactive bowel sounds, no tenderness, no guarding Integumentary: no rash, warm and dry Neurologic: no focal deficit, alert and oriented x3 Musculoskeletal: no deformities, no erythema, no cyanosis Results - Lab Results 07/06/17 05:20 07/06/17 05:20 Most recent lab results Calcium 8.9 mg/dL (8.6-10.3) 07/06/17 05:20 Magnesium 2.5 mg/dL (1.6-2.6) 07/06/17 05:20 Consult Discharge Plan - Plan [facility]errals: [facility] [Primary Care Provider] -
[2017-07-06] MEDS: Heparin 25,000 UNIT/500 ML D5W 25,000 UNIT/500 ML BAG IVC SCH (14:23)
[2017-07-06] MEDS: *HR* OxyCODONE Immed Rel 5 MG TABLET PO PRN (16:54)
--- NOTE | 2017-07-06 19:13 | Electrocardiograph Report ---
[place] [id number] Test Date: 2017-07-05 Pat Name: Dakota Issa Department: 103 Room: 2NE19 Gender: M Sand Blaster: : 1950 Requested By: Alcides Harrell Order Number: [id number] Reading MD: Delfino Xavier MD Measurements Intervals [place] Rate: 79 P: 162 AL: 225 QRS: 68 QRSD: 109 T: 78 QT: 396 QTc: 430 Interpretive Statements SINUS RHYTHM WITH FIRST DEGREE AV BLOCK BORDERLINE INFEROLATERAL ST ELEVATION SIMILAR TO PREVIOUS EKG Electronically Signed On 07-06-2017 19:12:27 EST by Delfino Xavier MD
[2017-07-06] MEDS: traZODone 50 MG TABLET PO SCH (22:08)
[2017-07-06] MEDS: Melatonin 3 MG TABLET PO SCH (22:08)
[2017-07-06] MEDS: *HR* LORazepam 0.5 MG TABLET PO PRN (22:26)
[2017-07-07 07:06] LABS: Basophils % 0.6 %; Eosinophils # 0.3 K/mcL (0.0-0.6); Eosinophils % 3.5 %; Hematocrit 40.1 % (37.5-50.1); Hemoglobin 12.7 g/dL (12.9-16.9); Immature Granulocytes % 0.6 % (0-4); Lymphocytes # 1.5 K/mcL (0.6-4.6); Lymphocytes % 21.6 %; Mean Corpuscular HGB Conc 31.7 g/dL (31.6-35.5); Mean Corpuscular Hemoglobin 27.7 pg (28.0-33.3); Mean Corpuscular Volume 87.4 fL (83.0-100.0); Monocytes # 0.8 K/mcL (0.0-1.3); Monocytes % 11.2 %; Neutrophils # 4.5 K/mcL (1.6-8.9); Platelet Count 209 K/mcL (140-400); Red Blood Count 4.59 M/mcL (4.19-5.50); Segmented Neutrophils % 62.5 %
[2017-07-07 07:26] LABS: Albumin 3.3 g/dL (3.5-5.7); Albumin/Globulin Ratio 1.4 (1.1-2.2); Bilirubin,Total 0.4 mg/dL (0.3-1.0); Calcium 8.7 mg/dL (8.6-10.3); Globulin 2.4 g/dL (2.4-3.5); Magnesium 2.2 mg/dL (1.6-2.6); Phosphorous 3.9 mg/dL (2.7-4.5); Potassium 4.3 mEq/L (3.5-5.1); Total Protein 5.7 g/dL (6.4-8.9)
[2017-07-07] MEDS: Budesonide/Formoterol 80/4.5 MDI IH SCH ×2 (07:53→20:05)
[2017-07-07] MEDS: Insulin LISPRO 300 UNITS/3 ML VIAL SQ SCH ×4 (08:06→20:34)
[2017-07-07] MEDS: 0.9 % Sodium Chloride 1,000 ML IVC SCH ×2 (08:27→18:25)
[2017-07-07] MEDS: Aspirin Enteric Coated 81 MG Tablet PO SCH (10:26)
[2017-07-07] MEDS: *HR* Amiodarone 200 MG TABLET PO SCH (10:27)
[2017-07-07] MEDS: Cholecalciferol (D-3) 1,000 UNIT TABLET PO SCH (10:27)
[2017-07-07] MEDS: Finasteride 5 MG TABLET PO SCH (10:27)
[2017-07-07] MEDS: Gabapentin 400 MG CAPSULE PO SCH ×2 (10:28→20:24)
[2017-07-07] MEDS: Triamcinolone Acet 0.1% CRM 15 GM TUBE TP SCH ×2 (10:30→20:25)
--- NOTE | 2017-07-07 10:58 | Cardiology Progress Note ---
Date of Encounter: 07/07/17 Time of Encounter: 11:00 Assessment and Plan (1) Chest pain Current Visit: Yes Status: Acute Per cardiology: -Patient preseted to oupatient cardiology office and complained of chest pain. ECG was done in office with changes noted inferiorly. -[facility] due to chest pain. -Of note, AG was noted on admission. Awaiting nephrology recommendations. -Patient denies current chest pain. -On asa, statin, beta brisa, and heparin drip. -Troponins negative x3. -TTE pending. -Plan for LHC when ok with nephrology. -PPM interrogation, blood cultures. Afebrile, no leukocytosis, and no obvious pocket infection or erosion on physical exam. Still low suspicion of pocket infection. TTE pending. Qualifiers: Chest pain type: precordial pain Qualified Code(s): R07.2 - Precordial pain (2) Acute kidney injury Current Visit: Yes Status: Acute IVF NS. Appreciate nephrology recommendations. (3) Atrial fibrillation Current Visit: No Status: Acute Per cardiology: -Known atrial fibrillation. -Continue rate control strategy -on xarelto as outpatient, now on hold due to plan for LHC when able. Currently on heparin drip. -On beta brisa and amiodarone. -Continue telemetry. Qualifiers: Atrial fibrillation type: paroxysmal Qualified Code(s): I48.0 - Paroxysmal atrial fibrillation Discussion w patient/family: The assessment and plan as outlined above was discussed with the patient and/or family members who expressed understanding and agreement. All questions were answered. Thank you for involving us in the care of your patient. Please call with any questions. Subjective Principal diagnosis: chest pain, weakness Interval history: He had intermittent sharp pain over left upper chest around PPM site last night around 11pm lasting for up to 10 minutes at a time. He still feels unwell and tired. Fever/chills. Objective Vital Signs, Last 4 Hours Temp Pulse Resp BP Pulse Ox 07/07/17 07:53 18 92 07/07/17 06:56 98.2 F 66 16 98/70 98 General: Conversant HEENT: Atraumatic Neck: No JVD Cardiac: Reg Rate and Rhythm Lungs: Normal Breath Sounds Neuro: Alert and responsive, Other Abdomen: Soft Skin: No rashes noted on visualized skin Musculoskeletal: Other (tender over PPM site without any marked erythema or fluctuance. questionable if slightly warmer than contralateral side to touch) Extremities: No Edema Results 07/07/17 06:21 07/07/17 06:21 Lab Results 07/07/17 07/07/17 07/07/17 06:21 06:21 06:21 WBC 7.1 Hgb 12.7 L Hct 40.1 Plt Count 209 APTT 49.3 H Sodium 135 L Potassium 4.3 Chloride 103 Carbon Dioxide 25 BUN 37 H Creatinine 1.63 H Glucose 108 H Calcium 8.7 Magnesium 2.2 Total Bilirubin 0.4 AST 13 ALT 22 Alkaline Phosphatase 85 Consult Discharge Plan - Plan [facility]errals: [facility] [Primary Care Provider] -
[2017-07-07 12:25] LABS: Adenovirus Not Detected (Not Detect); Bordetella Pertussis Not Detected (Not Detect); Chlamydophila pneumoniae Not Detected (Not Detect); Coronavirus 229E Not Detected (Not Detect); Coronavirus HKU1 Not Detected (Not Detect); Coronavirus NL63 Not Detected (Not Detect); Coronavirus OC43 Not Detected (Not Detect); Human Metapneumovirus Not Detected (Not Detect); Human Rhinovirus/Enterovirus Not Detected (Not Detect); Influenza A Subtype 2009 H1 Not Detected (Not Detect); Influenza A Untypeable Not Detected (Not Detect); Influenza B Not Detected (Not Detect); Mycoplasma pneumoniae Not Detected (Not Detect); Parainfluenza Virus 1 Not Detected (Not Detect); Parainfluenza Virus 2 Not Detected (Not Detect); Parainfluenza Virus 3 Not Detected (Not Detect); Parainfluenza Virus 4 Not Detected (Not Detect); Respiratory Syncytial Virus Not Detected (Not Detect)
--- NOTE | 2017-07-07 12:57 | Event Note ---
Date of Encounter: 07/07/17 Time of Encounter: 12:56 - Cardiology Event Note Device interrogated with normal functioning pacemaker, no issues noted. Patient is atrial paced 82% and ventricular paced 0.2%.
--- NOTE | 2017-07-07 13:14 | Nephrology Progress Note ---
<Asif Jensen - Last Filed: 07/07/17 13:19> Date of Encounter: 07/07/17 Time of Encounter: 13:12 - Assessment and Plan (1) Acute kidney injury Current Visit: No Status: Acute Improving. Likely related to a combination of hypovolemia and obstructive uropathy. Continue IVF and page. Recommend delaying heart cath until renal function returns to baseline which given trend may be tomorrow. To help protect against contrast induced nephropathy recommend IV fluid hydration and we will start NAC 600mg BID starting today and until one day after procedure. renal ultrasound shows cortical thinning associated with CKD, no hydronephrosis noted (2) CKD (chronic kidney disease) Current Visit: No Status: Acute Patient close to baseline, further plan as above Qualifiers: Chronic kidney disease stage: stage 3 (moderate) Qualified Code(s): N18.3 - Chronic kidney disease, stage 3 (moderate) (3) Chest pain Current Visit: Yes Status: Acute Management per cardio Qualifiers: Chest pain type: precordial pain Qualified Code(s): R07.2 - Precordial pain (4) HTN (hypertension) Current Visit: Yes Status: Chronic Qualifiers: Hypertension type: essential hypertension Qualified Code(s): I10 - Essential (primary) hypertension (5) HLD (hyperlipidemia) Current Visit: Yes Status: Chronic Qualifiers: Hyperlipidemia type: pure hypercholesterolemia Qualified Code(s): E78.00 - Pure hypercholesterolemia, unspecified; E78.0 - Pure hypercholesterolemia (6) COPD (chronic obstructive pulmonary disease) Current Visit: Yes Status: Chronic Qualifiers: COPD type: unspecified COPD Qualified Code(s): J44.9 - Chronic obstructive pulmonary disease, unspecified (7) CHF (congestive heart failure) Current Visit: Yes Status: Chronic Qualifiers: Congestive heart failure type: diastolic Congestive heart failure chronicity: chronic Qualified Code(s): I50.32 - Chronic diastolic (congestive ) heart failure (8) Atrial fibrillation Current Visit: Yes Status: Chronic Qualifiers: Atrial fibrillation type: paroxysmal Qualified Code(s): I48.0 - Paroxysmal atrial fibrillation (9) BPH (benign prostatic hyperplasia) Current Visit: Yes Status: Acute Qualifiers: Lower urinary tract symptom presence: symptoms present Lower urinary tract symptom detail: urinary obstruction Qualified Code(s): N40.1 - Benign prostatic hyperplasia with lower urinary tract symptoms; N13.8 - Other obstructive and reflux uropathy; N13.8 - Other obstructive and reflux uropathy Subjective Principal diagnosis: chest pain, weakness Interval history: Patient seen and examined at bedside. Patient states he feels ok today. He states that he still feels somewhat weak. He is still having intermittent chest pains. He denies dyspnea, abdominal pain, nausea, vomiting. Objective - Vital Signs Vital signs: Vital Signs Temp Pulse Resp BP Pulse Ox 07/07/17 11:40 98.1 F 62 16 94/66 94 07/07/17 07:53 18 92 07/07/17 06:56 98.2 F 66 16 98/70 98 07/07/17 04:00 97.5 F L 72 20 89/56 90 07/06/17 23:35 98.3 F 60 18 92/43 92 07/06/17 20:03 14 97 07/06/17 19:25 97.7 F 60 17 96/64 94 07/06/17 18:08 110/70 07/06/17 15:32 97.5 F L 60 16 96/68 Intake and Output 07/06/17 07/07/17 07/07/17 23:59 07:59 15:59 Intake Total 1850 / 1850 0 / 0 1139 / 1139 Output Total 1150 / 1150 800 / 800 750 / 750 Balance 700 / 700 -800 / -800 389 / 389 Intake: IV Fluids 1139 / 1139 0.9 % Sodium Chloride 1,000 ML 1000 / 1000 @ 100 mls/hr IVC .Q10H [facility] Rx#: [id number] Heparin 25,000 UNIT/500 ML D5W 139 / 139 25,000 unit In 500 ml @ 8 UNIT/ KG/HR 19.885 mls/hr IVC .Q24H [facility] Rx#:[id number] Oral 1850 / 1850 0 / 0 Output: Urine 750 / 750 Catheter 1150 / 1150 800 / 800 Other: Weight 124 kg Blood Glucose* 153 118 134 Patient Weight 07/07/17 23:59 Weight 124 kg - General Appearance General appearance: Present: well-developed, well-nourished, appears started age EENT: Present: ATNC, mucous membranes moist Neck: Present: supple Respiratory: Present: clear Cardiology: Present: no murmurs, no rub, no gallops, no edema, regular rhythm, irregular rhythm Additional Comments: Patient has active left lateral chest pain during my exam. Pain was increased with palpation to the area. Gastrointestinal: Present: normoactive bowel sounds, no tenderness, no guarding , no organomegaly Integumentary: Present: no rash, warm and dry Neurologic: Present: no focal deficit, alert and oriented x3 Musculoskeletal: Present: no deformities, no erythema, no cyanosis - Lab 07/07/17 06:21 07/07/17 06:21 Most recent lab results Calcium 8.7 mg/dL (8.6-10.3) 07/07/17 06:21 Phosphorus 3.9 mg/dL (2.7-4.5) 07/07/17 06:21 Magnesium 2.2 mg/dL (1.6-2.6) 07/07/17 06:21 Consult Discharge Plan - Plan [facility]errals: [facility] [Primary Care Provider[facility] - <Erica Witt - Last Filed: 07/08/17 16:03> Date of Encounter: 07/07/17 Objective - Vital Signs Vital signs: Vital Signs Temp Pulse Resp BP Pulse Ox 07/08/17 15:49 96.8 F L 58 16 115/75 97 07/08/17 15:44 60 16 111/68 98 07/08/17 15:26 60 16 98/78 98 07/08/17 15:04 16 98/70 98 07/08/17 14:38 97.9 F 60 16 98/68 96 07/08/17 14:06 60 16 98/68 96 07/08/17 13:29 97.8 F 60 14 106/68 96 07/08/17 11:36 97.6 F 60 16 102/75 94 07/08/17 07:55 16 95 07/08/17 07:11 97.9 F 63 16 101/67 93 07/08/17 04:34 97.9 F 60 18 96/63 98 07/07/17 20:05 18 92 07/07/17 19:06 97.7 F 68 16 103/58 91 Intake and Output 07/08/17 07/08/17 07/08/17 07:59 15:59 23:59 Intake Total 1000 / 1000 200 / 200 Output Total 3100 / 3100 650 / 650 Balance -2100 / -2100 -450 / -450 Intake: IV Fluids 1000 / 1000 200 / 200 0.9 % Sodium Chloride 1,000 ML 1000 / 1000 @ 100 mls/hr IVC .Q10H [facility] Rx#: [id number] Heparin 25,000 UNIT/500 ML D5W 0 / 0 200 / 200 25,000 unit In 500 ml @ 8 UNIT/ KG/HR 19.885 mls/hr IVC .Q24H [facility] Rx#:[id number] Output: Catheter 3100 / 3100 650 / 650 Other: Weight 125.2 kg Blood Glucose* 173 157 Patient Weight 07/08/17 23:59 Weight 125.2 kg - Lab 07/08/17 05:50 07/08/17 05:50 Most recent lab results Calcium 8.8 mg/dL (8.6-10.3) 07/08/17 05:50 Phosphorus 3.9 mg/dL (2.7-4.5) 07/07/17 06:21 Magnesium 2.2 mg/dL (1.6-2.6) 07/07/17 06:21 - Attending Attestation I examined this patient and my medical decision-making was reviewed with the Resident Physician. I agree with the documented findings, disposition and treatment plan as described except to the extent set forth below. Pt seen and examined with interim events noted. present at bedside. SCr improving nicely with fluids at 1.63, GFR 42. explained risks and benefits of LHC and contrast exposure. Will continue fluids and monitor UOP. Continue to avoid nephrotoxins if possible
[2017-07-07] MEDS: Isosorbide MONOnitrate (24 HR) 30 MG TAB.ER.24H PO SCH (13:17)
[2017-07-07] MEDS: *HR* Acetylcysteine 20% 600 MG/3 ML ORAL SYRINGE PO SCH ×2 (13:18→23:20)
[2017-07-07 14:39] LABS: Activated Partial Thrombo Time 110.7 Seconds (26.0-36.0)
[2017-07-07 14:46] LABS: Heparin anti-factor XA UFH 0.89 IU/mL (0.30-0.70)
--- NOTE | 2017-07-07 14:59 | Internal Med Progress Note ---
Date of Encounter: 07/07/17 Time of Encounter: 14:25 - Assessment and plan (1) Chest pain Current Visit: Yes Status: Acute Assessment and plan: Cardiology on board Serial TNI negative continue heparin gtt, asa, statin, bb 2D echo: LVEF 55%. Despite the use of contrast, not all LV segments were well visualized. Overall, LV segmental function appears normal. Normal LV chamber size and wall thickness. Mild left ventricular diastolic dysfunction. Grossly normal right ventricular structure and function. No evidence of pulmonary hypertension. awaiting nephrology clearance for [facility] Qualifiers: Chest pain type: precordial pain Qualified Code(s): R07.2 - Precordial pain (2) [id number] kidney injury Current Visit: Yes Status: Acute Assessment and plan: Nephrology evaluation requested renal function improved from previous day continue to hold Spironolactone, lasix at this time gentle IV fluid hydration will closely monitor renal function Qualifiers: Acute renal failure type: unspecified Chronic kidney disease stage: stage 3 (moderate) Qualified Code(s): N17.9 - Acute kidney failure, unspecified; N18.3 - Chronic kidney disease, stage 3 (moderate); N18.3 - Chronic kidney disease, stage 3 (moderate) (3) HTN (hypertension) Current Visit: Yes Status: Chronic Assessment and plan: Noted to be hypotensive this morning hold antihypertensive for SBP<100 hold narcotics for SBP<110 will closely monitor BP Qualifiers: Hypertension type: essential hypertension Qualified Code(s): I10 - Essential (primary) hypertension (4) COPD (chronic obstructive pulmonary disease) Current Visit: Yes Status: Chronic Assessment and plan: not in acute exacerbation continue home meds Qualifiers: COPD type: unspecified COPD Qualified Code(s): J44.9 - Chronic obstructive pulmonary disease, unspecified (5) CHF (congestive heart failure) Current Visit: Yes Status: Chronic Qualifiers: Congestive heart failure type: diastolic Congestive heart failure chronicity: chronic Qualified Code(s): I50.32 - Chronic diastolic (congestive ) heart failure (6) Atrial fibrillation Current Visit: Yes Status: Chronic Assessment and plan: rate controlled with Amiodarone anticoagulated with Xarelto Qualifiers: Atrial fibrillation type: paroxysmal Qualified Code(s): I48.0 - Paroxysmal atrial fibrillation (7) Obesity (BMI 30-39.9) Current Visit: Yes Status: Chronic (8) Chronic pain Current Visit: Yes Status: Acute Assessment and plan: history of neuropathy continue home gabapentin(renally dosed) hold narcotics if mental status lethargic or SBP<110 resp viral panel negative Qualifiers: Chronic pain type: other chronic pain Qualified Code(s): G89.29 - Other chronic pain - Subjective Interval history: Patient seen and examined with family present at bedside. Resting in bed and reports of feeling better compared to previous day Denies chest pain at this time Cardiology on board, currently on heparin gtt tentative LHC once cleared by nephrology Pt was reported to have difficulty swallowing s/p CVA, underwent speech evaluation and MBS diet changed as per speech therapist's recommendations - Constitutional Vitals: Temp Pulse Resp BP Pulse Ox 98.1 F 62 16 94/66 94 07/07/17 11:40 07/07/17 11:40 07/07/17 11:40 07/07/17 11:40 07/07/17 11:40 General appearance: Present: cooperative, A&O X 3, pleasant, no acute distress, obese, answers questions appropriately - Head Head exam: Present: atraumatic, normocephalic - Eye Eye exam: Present: conjuntiva pink, sclera anicteric - Respiratory Respiratory exam: Absent: respiratory distress, wheezes - Cardiovascular Cardiovascular exam: Present: RRR, +S1, +S2. Absent: diastolic murmur, gallop, rubs, systolic murmur - GI/Abdominal GI/Abdominal exam: Present: normal bowel sounds, soft, no peritoneal signs. Absent: distended, tenderness - Extremities Exam Extremities exam: Present: warm, radial pulses palpable and symmetrical. Absent : calf tenderness - Neurological Exam Neurological exam: Present: alert, oriented X3 Internal Medicine: Result - Labs CBC & Chem 7: 07/07/17 06:21 07/07/17 06:21 Labs: Short CBC 07/07/17 Range/Units 06:21 WBC 7.1 (4.3-11.1) K/mcL Hgb 12.7 L (12.9-16.9) g/dL Hct 40.1 (37.5-50.1) % Plt Count 209 (140-400) K/mcL Neutrophils # 4.5 (1.6-8.9) K/mcL BMP 07/07/17 06:21 Sodium 135 L Potassium 4.3 Chloride 103 Carbon Dioxide 25 BUN 37 H Creatinine 1.63 H Glucose 108 H Calcium 8.7 Liver Function 07/07/17 Range/Units 06:21 Total Bilirubin 0.4 (0.3-1.0) mg/dL AST 13 (13-39) Units/L ALT 22 (7-52) Units/L Alkaline Phosphatase 85 (34-104) Units/L Albumin 3.3 L (3.5-5.7) g/dL - ABG Interpretation ABG results: PT/INR, D-dimer PT 17.6 Seconds (9.4-12.1) H 07/06/17 05:20 - Impressions Impressions Retroperitoneum Ultrasound 07/06/17 20:00 IMPRESSION: Cortical thinning in the bilateral kidneys suggests chronic medical renal disease. D/ / Costa Davila MD / Costa Davila MD Interpreting Provider: Costa Davila MD Videofluoroscopic Swallow 07/07/17 08:30 IMPRESSION: Swallowing mechanism grossly within normal limits without evidence of aspiration. Please see separate speech pathology report for full discussion of findings and recommendations. D/ / Naveen Delarosa MD / Naveen Delarosa MD Interpreting Provider: Naveen Delarosa MD Consult Discharge Plan - Plan [facility]errals: [facility] [Primary Care Provider] -
[2017-07-07] MEDS: Olodaterol Hcl [Striverdi Respimat] IH SCH (17:02)
[2017-07-07] MEDS: Melatonin 3 MG TABLET PO SCH (20:24)
[2017-07-07] MEDS: traZODone 50 MG TABLET PO SCH (20:24)
[2017-07-07] MEDS: *HR* OxyCODONE Immed Rel 5 MG TABLET PO PRN (20:26)
[2017-07-07] MEDS: *HR* LORazepam 0.5 MG TABLET PO PRN (23:19)
[2017-07-07] MEDS: predniSONE 20 MG TABLET PO SCH (23:19)
[2017-07-08] MEDS: 0.9 % Sodium Chloride 1,000 ML IVC SCH ×2 (05:59→14:03)
[2017-07-08 06:00] LABS: Basophils % 0.3 %; Eosinophils % 0.2 %; Hematocrit 39.6 % (37.5-50.1); Hemoglobin 12.6 g/dL (12.9-16.9); Immature Granulocytes % 0.4 % (0-4); Lymphocytes # 0.6 K/mcL (0.6-4.6); Lymphocytes % 6.9 %; Mean Corpuscular HGB Conc 31.8 g/dL (31.6-35.5); Mean Corpuscular Hemoglobin 27.8 pg (28.0-33.3); Mean Corpuscular Volume 87.4 fL (83.0-100.0); Mean Platelet Volume 9.4 fL (9.4-12.4); Monocytes # 0.3 K/mcL (0.0-1.3); Monocytes % 3.3 %; Neutrophils # 8.2 K/mcL (1.6-8.9); Platelet Count 196 K/mcL (140-400); Red Blood Count 4.53 M/mcL (4.19-5.50); Red Cell Distribution Width 14.9 % (11.5-14.5); Segmented Neutrophils % 88.9 %
[2017-07-08 06:34] LABS: Alanine Aminotransferase 30 Units/L (7-52); Albumin 3.4 g/dL (3.5-5.7); Albumin/Globulin Ratio 1.3 (1.1-2.2); Alkaline Phosphatase 86 Units/L (34-104); Aspartate Amino Transferase 18 Units/L (13-39); BUN/Creatinine Ratio 22 (6-26); Bilirubin,Total 0.3 mg/dL (0.3-1.0); Blood Urea Nitrogen 30 mg/dL (8-23); Calcium 8.8 mg/dL (8.6-10.3); Carbon Dioxide 26 mEq/L (23-29); Chloride 103 mEq/L (98-107); Globulin 2.7 g/dL (2.4-3.5); Glucose 158 mg/dL (70-105); Osmolality,Calculated 293 (280-300); Potassium 4.7 mEq/L (3.5-5.1); Sodium 137 mEq/L (136-145); Total Protein 6.1 g/dL (6.4-8.9); eGFR For African Americans > 60 (> 60); eGFR For Non-African Americans 51 (> 60)
[2017-07-08] MEDS: Budesonide/Formoterol 80/4.5 MDI IH SCH ×2 (07:55→20:04)
[2017-07-08] MEDS: Olodaterol Hcl [Striverdi Respimat] IH SCH ×2 (08:37→20:33)
[2017-07-08] MEDS: Heparin 25,000 UNIT/500 ML D5W 25,000 UNIT/500 ML BAG IVC SCH (08:38)
[2017-07-08] MEDS: Insulin LISPRO 300 UNITS/3 ML VIAL SQ SCH ×4 (08:39→20:41)
[2017-07-08] MEDS: Cholecalciferol (D-3) 1,000 UNIT TABLET PO SCH (08:47)
[2017-07-08] MEDS: Gabapentin 400 MG CAPSULE PO SCH ×2 (08:47→20:42)
[2017-07-08] MEDS: Isosorbide MONOnitrate (24 HR) 30 MG TAB.ER.24H PO SCH (08:47)
[2017-07-08] MEDS: Aspirin Enteric Coated 81 MG Tablet PO SCH (08:48)
[2017-07-08] MEDS: predniSONE 20 MG TABLET PO SCH (08:48)
[2017-07-08] MEDS: Triamcinolone Acet 0.1% CRM 15 GM TUBE TP SCH ×2 (08:48→20:44)
[2017-07-08] MEDS: *HR* Amiodarone 200 MG TABLET PO SCH (08:48)
[2017-07-08] MEDS: Finasteride 5 MG TABLET PO SCH (08:48)
--- NOTE | 2017-07-08 09:36 | Event Note ---
Date of Encounter: 07/08/17 Time of Encounter: 09:34 - Cardiology Event Note Kidney function has now returned to baseline. C/o left sided chest pain all night that improved with pain medication. Discussed with Dr. Xavier, will proceed with [facility] today. RB/A was reviewed with patient and he agrees to proceed.
[2017-07-08] MEDS ORDERED: Verapamil 5 MG/2 ML VIAL ONE (11:39)
[2017-07-08] MEDS ORDERED: Heparin 1,000 UNITS/500 mL 500 ML ONE (11:39)
[2017-07-08] MEDS ORDERED: *HR* Heparin 10,000 UNIT/10 ML VIAL ONE (11:39)
[2017-07-08] MEDS ORDERED: 0.9 % Sodium Chloride 1,000 ML ONE ×2 (11:39→12:10)
[2017-07-08] MEDS ORDERED: Nitroglycerin 1,000 MCG/10 ML VIAL IV ONE (11:39)
--- NOTE | 2017-07-08 11:51 | Internal Med Progress Note ---
Date of Encounter: 07/08/17 Time of Encounter: 11:10 - Assessment and plan (1) Chest pain Current Visit: Yes Status: Acute Assessment and plan: Cardiology on board, consultation appreciated Serial TNI negative continue heparin gtt, asa, statin, bb 2D echo: LVEF 55%. Despite the use of contrast, not all LV segments were well visualized. Overall, LV segmental function appears normal. Normal LV chamber size and wall thickness. Mild left ventricular diastolic dysfunction. Grossly normal right ventricular structure and function. No evidence of pulmonary hypertension. Scheduled for [facility] later today (07/08/17) Qualifiers: Chest pain type: precordial pain Qualified Code(s): R07.2 - Precordial pain (2) [id number] kidney injury Current Visit: Yes Status: Acute Assessment and plan: Nephrology evaluation requested renal function back to baseline continue Acetylcysteine dosing as per nephrology continue to hold Spironolactone, lasix at this time gentle IV fluid hydration will closely monitor renal function Qualifiers: Acute renal failure type: unspecified Chronic kidney disease stage: stage 3 (moderate) Qualified Code(s): N17.9 - Acute kidney failure, unspecified; N18.3 - Chronic kidney disease, stage 3 (moderate); N18.3 - Chronic kidney disease, stage 3 (moderate) (3) HTN (hypertension) Current Visit: Yes Status: Chronic Assessment and plan: Noted to be hypotensive this morning hold antihypertensive for SBP<100 hold narcotics for SBP<110 will closely monitor BP Qualifiers: Hypertension type: essential hypertension Qualified Code(s): I10 - Essential (primary) hypertension (4) COPD (chronic obstructive pulmonary disease) Current Visit: Yes Status: Chronic Assessment and plan: not in acute exacerbation continue home meds Qualifiers: COPD type: unspecified COPD Qualified Code(s): J44.9 - Chronic obstructive pulmonary disease, unspecified (5) CHF (congestive heart failure) Current Visit: Yes Status: Chronic Qualifiers: Congestive heart failure type: diastolic Congestive heart failure chronicity: chronic Qualified Code(s): I50.32 - Chronic diastolic (congestive ) heart failure (6) Atrial fibrillation Current Visit: Yes Status: Chronic Assessment and plan: rate controlled with Amiodarone anticoagulated with Xarelto (on hold due to [facility], will resume after the procedure ) Qualifiers: Atrial fibrillation type: paroxysmal Qualified Code(s): I48.0 - Paroxysmal atrial fibrillation (7) Obesity (BMI 30-39.9) Current Visit: Yes Status: Chronic (8) Chronic pain Current Visit: Yes Status: Acute Assessment and plan: history of neuropathy continue home gabapentin(renally dosed) hold narcotics if mental status lethargic or SBP<110 resp viral panel negative Qualifiers: Chronic pain type: other chronic pain Qualified Code(s): G89.29 - Other chronic pain - Subjective Interval history: Patient seen and examined with family present at bedside. Resting in bed and reports of feeling better compared to previous day Denies chest pain at this time Scheduled for [facility] later today (07/08/17), renal function back to baseline. - Constitutional Vitals: Temp Pulse Resp BP Pulse Ox 97.6 F 60 16 102/75 94 07/08/17 11:36 07/08/17 11:36 07/08/17 11:36 07/08/17 11:36 07/08/17 11:36 General appearance: Present: cooperative, A&O X 3, pleasant, no acute distress, obese, answers questions appropriately - Head Head exam: Present: atraumatic, normocephalic - Eye Eye exam: Present: conjuntiva pink, sclera anicteric - Respiratory Respiratory exam: Absent: accessory muscle use, respiratory distress, wheezes - Cardiovascular Cardiovascular exam: Present: RRR, +S1, +S2. Absent: diastolic murmur, gallop, rubs, systolic murmur - GI/Abdominal GI/Abdominal exam: Present: normal bowel sounds, soft, no peritoneal signs. Absent: distended, tenderness - Extremities Exam Extremities exam: Present: warm, radial pulses palpable and symmetrical. Absent : calf tenderness - Neurological Exam Neurological exam: Present: alert, oriented X3 Internal Medicine: Result - Labs CBC & Chem 7: 07/08/17 05:50 07/08/17 05:50 Labs: Short CBC 07/08/17 Range/Units 05:50 WBC 9.2 (4.3-11.1) K/mcL Hgb 12.6 L (12.9-16.9) g/dL Hct 39.6 (37.5-50.1) % Plt Count 196 (140-400) K/mcL Neutrophils # 8.2 (1.6-8.9) K/mcL BMP 07/08/17 05:50 Sodium 137 Potassium 4.7 Chloride 103 Carbon Dioxide 26 BUN 30 H Creatinine 1.38 H Glucose 158 H Calcium 8.8 Liver Function 07/08/17 Range/Units 05:50 Total Bilirubin 0.3 (0.3-1.0) mg/dL AST 18 (13-39) Units/L ALT 30 (7-52) Units/L Alkaline Phosphatase 86 (34-104) Units/L Albumin 3.4 L (3.5-5.7) g/dL - ABG Interpretation ABG results: PT/INR, D-dimer PT 17.6 Seconds (9.4-12.1) H 07/06/17 05:20 - VTE Documentation of Mechanical Device: Intermittent pneumatic compression device Consult Discharge Plan - Plan [facility]errals: [facility] [Primary Care Provider] -
--- NOTE | 2017-07-08 12:06 | Pre-Sedation Evaluation ---
Pre-sedation evaluation - Pre-sedation checklist Date of procedure: 07/08/17 Procedure: [facility] Recent Vitals: Last Vital Signs Temp 97.6 F 07/08/17 11:36 Pulse 60 07/08/17 11:36 Resp 16 07/08/17 11:36 BP 102/75 07/08/17 11:36 Pulse Ox 94 07/08/17 11:36 H&P (including ROS) documented in medical record: Yes Previous reaction to sedatives/anesthetics: Yes; explain in comment Dietary Status: NPO after Midnight Dentition: No loose teeth or bridges ASA Classification *see protocol: CLASS II-Mild systemic disease Plan of Care: Pt appropriate candidate for procedure/moderate/conscious sedation , Risks/benefits of procedure/sedation discussed w/ patient/family
[2017-07-08] MEDS ORDERED: *HR* Midazolam HCl 2 MG/2 ML VIAL ONE (12:10)
[2017-07-08] MEDS ORDERED: *HR* FentaNYL (PF) 100 MCG/2 ML VIAL ONE (12:10)
[2017-07-08] MEDS ORDERED: Ondansetron 4 MG/2 ML VIAL IVP PRN (12:49)
--- NOTE | 2017-07-08 12:53 | Event Note ---
Date of Encounter: 07/08/17 Time of Encounter: 13:00 - Cardiology Event Note No significant coronary artery disease on C. No leukocytosis or fever. Blood culture pending. Acceptable from cardiology standpoint for discharge after 6 hours of IV NS.
--- NOTE | 2017-07-08 13:13 | Invasive Diagnostic Lab Proc ---
Name: Dakota Issa Date of Study: 07/08/2017 Date: 1950 Ht: 74.0in Medical Record#: [id number] Age: 67 Wt: 275.58lb Gender: Male BSA: 2.49 Order #: [id number] BMI: 35.37 Physicians Procedure Physician: Delfino Xavier MD, FACC Referring MD: Dilshad Flood DO,FACAbisai,TOSHIA VICENTE Referring MD: Staff Name Position Time In Greg Walter RN Monitor 12:14 PM Valorie Barkley RN Vise Hand 12:14 PM Amalia Chavez RT Scrub 12:16 PM Indications Indication Unstable Angina Procedures Performed Procedure L HRT ARTERY/VENTRICLE ANGIO Pre-Procedure Checklist Informed consent is complete signed and on chart. H&P is on chart. ID band is on and ID verified with patient. Patient NPO for procedure The procedure was described for the patient and questions were answered. Blood Pressure: 120/66 ECG is on chart. Rhythm: Paced Plan of Care Patient will tolerate the procedure without complications. Adequate level of comfort will be maintained. Hemodynamics will remain stable Patient will recover from procedure without complications. Respiratory function will be maintained. Cardiac rhythm will remain stable. Patient temperature will be maintained. Patient and/or family have verbalized understanding of the procedure. Patient Education Chief Complaint/Reason for Test: Cardiac Cath Developmental Category: Geriatric (65+ years) Developmentally Appropriate for Age: Yes Learning Barriers: None Education Needs: Procedure Education Method: Verbal Information Taught: Cardiac Cath Educational Evaluation: Able to repeat information Intravenous Access Time IV Size Location DC'd Fluid/Drip Rate Units RN 18g 1 1/4" Patent On Arrival Lt Antecubital 18g 1 1/4" Patent On Arrival Rt Antecubital Allergies IVP DYE Vital Signs Time BP (mmHg) HR (bpm) O2 Sat. RR (bpm) LOC 101 / 67 63 95 % 12:17 PM / % 5 = Fully awake and oriented or at pre-proc level 12:17 PM / % 4 = Oriented but drowsy 12:32 PM / % 4 = Oriented but drowsy 12:13 PM 120 / 66 63 96 % 18 12:19 PM 119 / 68 68 96 % 20 12:23 PM 114 / 65 61 93 % 13 12:28 PM 106 / 53 60 92 % 13 12:33 PM 105 / 56 60 92 % 13 12:38 PM 113 / 66 63 92 % 16 12:43 PM 115 / 64 64 93 % 16 12:48 PM 121 / 66 60 % 14 Procedural Medications Time Medication Dose Units Method Given By 12:17 PM Oxygen 2 L/min nasal cannula Valorie Barkley RN 12:17 PM Benadryl 50 mg Intravenous Valorie Barkley RN 12:20 PM Versed 2 mg Intravenous Valorie Barkley RN 12:20 PM Fentanyl 50 mcg Intravenous Valorie Barkley RN 12:29 PM Lidocaine 2% 0.5 ml Subcutaneous Delfino Xavier MD, [facility] 12:29 PM Heparin 2000 units Nitroglycerin 200 mcg Verapamil 2.5 mg Intraarterial Delfino Xavier MD, [facility] ASA Classification: CLASS II- Mild systemic disease (i.e. well-controlled diabetes, hypertension, asthma, cigarette smoking) Tai Score Preprocedure Postprocedure Activity 2- Moves 4 extremities sustained head lift Activity 2- Moves 4 extremities sustained head lift Circulation 2- SBP +/= 20 points of pre-anesthetic level Circulation 2- SBP +/= 20 points of pre-anesthetic level Consciousness 2- Awake and alert oriented x 3 Consciousness 2- Awake and alert oriented x 3 O2 Saturation 2- Able to maintain O2 satruation of 92% on room air O2 Saturation 2- Able to maintain O2 satruation of 92% on room air Respiratory 2- Able to deep breathe and cough well Respiratory 2- Able to deep breathe and cough well Total Score 10 Total Score 10 Contrast Agent: Isovue Diagnostic Contrast: 47 ml Total Contrast: 47 ml Fluoro Dose: 456 mGy Procedure Log Time Note Enter By 12:12 PM CathStat 12:12 PM Vitals capture started with the following parameters, Patient=Adult, Interval=5 min, Initial Rzklbwxz=410 mmHg, Deflation Rate=5 mmHg, Cuff placed on Left Arm 12:13 PM HR=63 bpm, XRGZ=173/66 mmhg, SpO2=96.0 %, Resp=18 B/min, Comment=nsr 12:14 PM Pt arrived to [employer] [facility] at 12:14 [facility] 12:14 PM Walter Garza RN Position: [facility]: [facility] Valorie Barkley RN Position: Vise Hand [facility]: [facility] PM Kallner, Amalia RT Position: Scrub [facility]: 12[facility] PM Patient charges- Angio tray pack, Navilyst 3mm J, Pulse Oximetry and ACIST tubing and transducer [facility] 12:17 PM Case Delayed no, inpatient [facility] 12:17 PM Hair removed from procedure site in procedure lab using clippers. Right wrist/Right groin prepped with Chloraprep by Valorie Barkley RN, safety strap applied then patient was draped. Skin intact. [facility] 12: PM Physician arrived 12: [facility] 12: PM Meet and greet completed [facility] 12: PM Sign in performed according to hospital policy. [facility] 12: PM Procedure start 12: [facility] : PM Time: 12:17 Patient comfortable and pain free: Yes [facility] : PM Time: 12:17LOC: 5 = Fully awake and oriented or at pre-proc level [facility]: PM Time: 12:17 Oxygen on at 2 L/min per nasal cannula by Valorie Bark[facility]: PM Time: 12:17 Benadryl 50 mg Intravenous Given by Valorie Barkley RN 12:19 PM HR=68 bpm, RQBW=403/68 mmhg, SpO2=96.0 %, Resp=20 B/min, Comment=nsr 12:20 PM Time: 12:20 Versed 2 mg Intravenous Given by Valorie Barkley RN 12:20 PM Time: 12:20 Fentanyl 50 mcg Intravenous Given by Valorie Barkley RN 12:23 PM HR=61 bpm, GWTJ=535/65 mmhg, SpO2=93.0 %, Resp=13 B/min, Comment=nsr 12:27 PM ASA Class CLASS II- Mild systemic disease (i.e. well-controlled diabetes, hypertension, asthma, cigarette smoking) [facility] 12:27 PM Clinical Presentation: Unstable angina [facility] 12:28 PM HR=60 bpm, IRAO=438/53 mmhg, SpO2=92.0 %, Resp=13 B/min, Comment=nsr 12:29 PM Pressure channel 1 zeroed. 12: PM Time out performed according to hospital policy [facility] PM Time: 12: 0.5 ml Lidocaine 2% to right radial Subcutaneous Given by Delfino Xavier MD, [facility] lparsley 12:29 PM Time: 12:29 Patient given 2000 units Heparin, 200 mcg Nitroglycerin, and 2.5 mg Verapamil Intraarterial by Delfino Xavier MD, [facility]. This is given to reduce risk of vessel spasm and thrombosis. lparsley 12:30 PM Access obtained by percutaneous puncture. 6Fr 11cm Terumo Glidesheath sheath placed in right Radial artery. [id number] lparsley 12:31 PM 5Fr TIG catheter inserted over the wire DNC lparsley 12:32 PM Time: 12:17LOC: 4 = Oriented but drowsy lparsley 12:32 PM Time: 12:17 Patient comfortable and pain free: Yes lparsley 12:33 PM HR=60 bpm, BWNL=221/56 mmhg, SpO2=92.0 %, Resp=13 B/min, Comment=nsr 12:35 PM Wire removed lparsley 12:35 PM 0.035 150cm VSI Kiran-Torque wire [id number] lparsley 12:35 PM Recorded Pressure: Ao, HR=60, Condition=Condition 1 (Aorta) Ao 100/68/84 12:36 PM Catheter removed lparsley 12:36 PM 5Fr FL3.5 catheter inserted over the wire [id number] lparsley 12:37 PM LCA angiography performed in multiple views. lparsley 12:37 PM Recorded Pressure: Ao, HR=61, Condition=Condition 1 (Aorta) Ao 100/71/84 12:38 PM HR=63 bpm, GPFZ=771/66 mmhg, SpO2=92.0 %, Resp=16 B/min, Comment=nsr 12:39 PM Catheter removed lparsley 12:39 PM 5Fr 3DRC catheter inserted over the wire [id number] lparsley 12:41 PM RCA angiography performed in multiple views. lparsley 12:41 PM Recorded Pressure: Ao, HR=63, Condition=Condition 1 (Aorta) Ao 101/72/86 12:42 PM Coronary Dominance: right lparsley 12:43 PM Catheter removed lparsley 12:43 PM Wire removed lparsley 12:43 PM HR=64 bpm, WGZH=003/64 mmhg, SpO2=93.0 %, Resp=16 B/min, Comment=nsr 12:44 PM Recorded Pressure: LV, HR=63, Condition=Condition 1 (Left Ventricle) LV 111/16/21 12:44 PM Recorded Pressure: LV, HR=63, Condition=Condition 1 (Left Ventricle) LV 114/10/22 12:44 PM Recorded Pressure: LV, Ao, HR=63, Condition=Condition 1 (Left Ventricle) LV 113/7/25, (Aorta) Ao 107/64/84 12:46 PM [facility] 12[facility] 12:47 PM Sign out completed: Radiation Dose 456 mGy Fluoro Time: 5.4 Isovue 370 - 200ml contrast 47 ml given by Delfino Xavier MD, [facility]. Complications: NoneCardiac Rehab Consult needed: NoConfirmed administered medications: [facility] 12:47 PM Isovue 370 - 200ml,1 Bottle(s) used. [facility] 12:47 PM Time: 12:32 Patient comfortable and pain free: Yes [facility] 12:48 PM Time: 12:32LOC: 4 = Oriented but drowsy [facility] 12:48 PM HR=60 bpm, LOOS=726/66 mmhg, Resp=14 B/min, Comment=nsr 12:48 PM 11 ml air in Vasc Band. [facility] 12:48 PM Estimated Blood Loss: less than 20cc [facility] 12:49 PM Post ECG NSR lparsley 12:49 PM Post Blood Pressure 121/66 lparsley 12:52 PM 12:51 Post Pulses Bilateral radial 2+ lparsley 12:52 PM 12:52 Post Pulses Bilateral DP & PT 1+ lparsley 12:52 PM Information taught Vasc Band and Cardiac Cath lparsley 12:52 PM Education needs Plan of Care, Procedure, and Responsibilities of Patient in Care lparsley 12:52 PM Learning barriers :None lparsley 12:52 PM Education Methods Verbal [facility] 12:52 PM Education evaluation Able to repeat information [facility] 12:53 PM Site status No bleeding/hematoma - Rt Wrist as reported by Amalia Chavez RT at 12:52 lparsley 12:53 PM Report given to Bobby CHENG Pt taken to 2NE Room #19. 12:53 lparsley 12:53 PM Plavix, Effient or Brilinta given No lparsley 12:53 PM Delay to floor No lparsley 12:53 PM Family placed in consult room. matheus 12:53 PM Complications: [facility] 12[facility] PM Fluoro Time: 5.4 matheus 12:54 PM Isovue 370 - 200ml contrast 47 ml given by Delfino Xavier MD, [facility]. [facility] 12:[facility] PM Radiation Dose 456 mGy matheus 01:02 PM Time: 12:47 Patient comfortable and pain free: [facility] PM Patient out of room: 13:03 matheus Complications Complication None None Hemodynamics Pressures Site Systolic/A Wave Diastolic/V Wave Mean AO 100 68 84 AO 100 71 84 AO 101 72 86 LV 111 16 21 LV 114 10 22 LV 113 7 25 AO 107 64 84 Post Procedure Information Blood Pressure: 121/66 mmHg Rhythm: NSR Post procedural instructions were given Closure Device Time Device Success/Fail 07/08/2017 12:54:00 PM Mechanical Compression Successful Site Checks Time Location Status Staff Sheath In? Note 12:52 PM Rt Wrist No bleeding/hematoma Amalia Chavez RT Pulses Time Site Pre-Procedure Post-Procedure Note 07/08/2017 12:49:00 PM Bilateral radial 12:51:00 PM Bilateral radial 2+ 12:52:00 PM Bilateral DP & PT 1+ Updated by Valorie Barkley RN on 07/08/2017 1:03:56 PM electronically signed on 07/08/2017 1:08:50 PM with status of Final
--- NOTE | 2017-07-08 16:06 | Nephrology Progress Note ---
Date of Encounter: 07/08/17 Time of Encounter: 14:00 - Assessment and Plan (1) Acute kidney injury Current Visit: Yes Status: Acute SCr improved and at baseline at 1.38, GFR 51 UOp very good at 2450cc in the past 24hrs (2) CKD (chronic kidney disease) stage 3, GFR 30-59 ml/min Current Visit: Yes Status: Acute GFR at baseline in the 50s (3) Chest pain Current Visit: Yes Status: Resolved Agreed with [facility] with minimal contrast and IVF for prophylasix Qualifiers: Chest pain type: precordial pain Qualified Code(s): R07.2 - Precordial pain Subjective Principal diagnosis: chest pain, weakness Interval history: Pt seen and examined tired after [facility] with no intervention needed. No chest pain at present Objective - Vital Signs Vital signs: Vital Signs Temp Pulse Resp BP Pulse Ox 07/08/17 15:49 96.8 F L 58 16 115/75 97 07/08/17 15:44 60 16 111/68 98 07/08/17 15:26 60 16 98/78 98 07/08/17 15:04 16 98/70 98 07/08/17 14:38 97.9 F 60 16 98/68 96 07/08/17 14:06 60 16 98/68 96 07/08/17 13:29 97.8 F 60 14 106/68 96 07/08/17 11:36 97.6 F 60 16 102/75 94 07/08/17 07:55 16 95 07/08/17 07:11 97.9 F 63 16 101/67 93 07/08/17 04:34 97.9 F 60 18 96/63 98 07/07/17 20:05 18 92 07/07/17 19:06 97.7 F 68 16 103/58 91 Intake and Output 07/08/17 07/08/17 07/08/17 07:59 15:59 23:59 Intake Total 1000 / 1000 200 / 200 Output Total 3100 / 3100 650 / 650 Balance -2100 / -2100 -450 / -450 Intake: IV Fluids 1000 / 1000 200 / 200 0.9 % Sodium Chloride 1,000 ML 1000 / 1000 @ 100 mls/hr IVC .Q10H [facility] Rx#: [id number] Heparin 25,000 UNIT/500 ML D5W 0 / 0 200 / 200 25,000 unit In 500 ml @ 8 UNIT/ KG/HR 19.885 mls/hr IVC .Q24H [facility] Rx#:[id number] Output: Catheter 3100 / 3100 650 / 650 Other: Weight 125.2 kg Blood Glucose* 173 157 Patient Weight 07/08/17 23:59 Weight 125.2 kg - General Appearance General appearance: Present: well-developed, well-nourished (NAD) EENT: Present: ATNC, mucous membranes moist Neck: Present: no JVD, supple Respiratory: Present: clear Cardiology: Present: no edema, normal S1, normal S2 Gastrointestinal: Present: no tenderness, no guarding Integumentary: Present: warm and dry Neurologic: Present: no focal deficit Musculoskeletal: Present: no deformities Psychiatric: Present: mood/affect appropriate, cooperative - Lab 07/09/17 04:21 07/09/17 04:21 Most recent lab results Calcium 8.8 mg/dL (8.6-10.3) 07/08/17 05:50 Phosphorus 3.9 mg/dL (2.7-4.5) 07/07/17 06:21 Magnesium 2.2 mg/dL (1.6-2.6) 07/07/17 06:21 - VTE Documentation of Mechanical Device: Intermittent pneumatic compression device Consult Discharge Plan - Plan Additional Instructions: Please follow up with your primary care physician within five days after your discharge from the hospital. Please follow up with cardiology, nephrology within one to two weeks after your discharge from the hospital. Resume all your home medications as prescribed by your primary care physician. Hold your blood pressure medications for systolic blood pressure less than 100. Seek medical help immediately if chest pain reoccurs [facility]errals: [facility] [Primary Care Provider] -
[2017-07-08] MEDS ORDERED: *HR* LORazepam 2 MG/ML VIAL IVP ONE (16:58)
[2017-07-08] MEDS: *HR* Acetylcysteine 20% 600 MG/3 ML ORAL SYRINGE PO SCH (17:52)
[2017-07-08] MEDS: *HR* OxyCODONE Immed Rel 5 MG TABLET PO PRN (20:41)
[2017-07-08] MEDS: Melatonin 3 MG TABLET PO SCH (20:42)
[2017-07-08] MEDS: traZODone 50 MG TABLET PO SCH (20:42)
[2017-07-09] MEDS: 0.9 % Sodium Chloride 1,000 ML IVC SCH (02:54)
[2017-07-09 05:40] LABS: Basophils % 0.1 %; Eosinophils % 0.1 %; Hematocrit 37.8 % (37.5-50.1); Hemoglobin 12.3 g/dL (12.9-16.9); Immature Granulocytes % 0.5 % (0-4); Lymphocytes # 1.1 K/mcL (0.6-4.6); Lymphocytes % 7.3 %; Mean Corpuscular HGB Conc 32.5 g/dL (31.6-35.5); Mean Corpuscular Hemoglobin 28.5 pg (28.0-33.3); Mean Corpuscular Volume 87.5 fL (83.0-100.0); Mean Platelet Volume 10.3 fL (9.4-12.4); Monocytes # 1.3 K/mcL (0.0-1.3); Monocytes % 8.6 %; Neutrophils # 12.3 K/mcL (1.6-8.9); Platelet Count 204 K/mcL (140-400); Red Blood Count 4.32 M/mcL (4.19-5.50); Red Cell Distribution Width 14.9 % (11.5-14.5); Segmented Neutrophils % 83.4 %
[2017-07-09 05:49] LABS: Alanine Aminotransferase 26 Units/L (7-52); Albumin 3.3 g/dL (3.5-5.7); Albumin/Globulin Ratio 1.3 (1.1-2.2); Alkaline Phosphatase 80 Units/L (34-104); Aspartate Amino Transferase 16 Units/L (13-39); BUN/Creatinine Ratio 21 (6-26); Bilirubin,Total 0.2 mg/dL (0.3-1.0); Blood Urea Nitrogen 28 mg/dL (8-23); Calcium 8.9 mg/dL (8.6-10.3); Carbon Dioxide 23 mEq/L (23-29); Chloride 105 mEq/L (98-107); Globulin 2.5 g/dL (2.4-3.5); Glucose 125 mg/dL (70-105); Osmolality,Calculated 287 (280-300); Potassium 4.4 mEq/L (3.5-5.1); Sodium 135 mEq/L (136-145); Total Protein 5.8 g/dL (6.4-8.9); eGFR For African Americans > 60 (> 60); eGFR For Non-African Americans 52 (> 60)
[2017-07-09 05:52] LABS: Phosphorous 3.1 mg/dL (2.7-4.5)
[2017-07-09] MEDS: *HR* OxyCODONE Immed Rel 5 MG TABLET PO PRN (06:09)
[2017-07-09] MEDS: *HR* Acetylcysteine 20% 600 MG/3 ML ORAL SYRINGE PO SCH ×2 (06:10→12:22)
[2017-07-09] MEDS: *HR* Amiodarone 200 MG TABLET PO SCH (10:26)
[2017-07-09] MEDS: Finasteride 5 MG TABLET PO SCH (10:26)
[2017-07-09] MEDS: Gabapentin 400 MG CAPSULE PO SCH ×2 (10:26→21:08)
[2017-07-09] MEDS: Cholecalciferol (D-3) 1,000 UNIT TABLET PO SCH (10:26)
[2017-07-09] MEDS: Aspirin Enteric Coated 81 MG Tablet PO SCH (10:27)
[2017-07-09] MEDS: Insulin LISPRO 300 UNITS/3 ML VIAL SQ SCH ×4 (10:27→21:08)
[2017-07-09] MEDS: Isosorbide MONOnitrate (24 HR) 30 MG TAB.ER.24H PO SCH (10:27)
[2017-07-09] MEDS: Olodaterol Hcl [Striverdi Respimat] IH SCH (10:28)
[2017-07-09] MEDS: Budesonide/Formoterol 80/4.5 MDI IH SCH ×2 (10:48→22:15)
[2017-07-09] MEDS: Triamcinolone Acet 0.1% CRM 15 GM TUBE TP SCH ×2 (12:20→21:08)
--- NOTE | 2017-07-09 14:22 | Discharge Summary ---
Date of Encounter: 07/09/17 Time of Encounter: 13:01 - Discharge Diagnosis (1) Chest pain Priority: Primary Status: Resolved Qualifiers: Chest pain type: precordial pain Qualified Code(s): R07.2 - Precordial pain (2) Aqphx-pl-rbygayv kidney injury Priority: Secondary Status: Acute Qualifiers: Acute renal failure type: unspecified Chronic kidney disease stage: stage 3 (moderate) Qualified Code(s): N17.9 - Acute kidney failure, unspecified; N18.3 - Chronic kidney disease, stage 3 (moderate); N18.3 - Chronic kidney disease, stage 3 (moderate) (3) HTN (hypertension) Priority: Secondary Status: Chronic Qualifiers: Hypertension type: essential hypertension Qualified Code(s): I10 - Essential (primary) hypertension (4) COPD (chronic obstructive pulmonary disease) Priority: Secondary Status: Chronic Qualifiers: COPD type: unspecified COPD Qualified Code(s): J44.9 - Chronic obstructive pulmonary disease, unspecified (5) CHF (congestive heart failure) Priority: Secondary Status: Chronic Qualifiers: Congestive heart failure type: diastolic Congestive heart failure chronicity: chronic Qualified Code(s): I50.32 - Chronic diastolic (congestive ) heart failure (6) Atrial fibrillation Priority: Secondary Status: Chronic Qualifiers: Atrial fibrillation type: paroxysmal Qualified Code(s): I48.0 - Paroxysmal atrial fibrillation (7) Obesity (BMI 30-39.9) Priority: Secondary Status: Chronic (8) Chronic pain Priority: Secondary Status: Acute Qualifiers: Chronic pain type: other chronic pain Qualified Code(s): G89.29 - Other chronic pain - Discharge Medications Home Medications: Aspirin Enteric Coated [Aspirin EC] 81 mg PO DAILY #0 04/09/15 [History] Rivaroxaban [Xarelto] 20 mg PO DAILY #0 04/09/15 [History] Cholecalciferol (Vitamin D3) [Vitamin D3] 1,000 unit PO DAILY 03/12/16 [History] Albuterol Sulfate [Proair Hfa] 2 puff IH Q4H PRN 12/14/16 [History] Atorvastatin [Lipitor] 40 mg PO HS 12/14/16 [History] Gabapentin [Neurontin] 400 mg PO BID 12/14/16 [History] Pantoprazole Sodium [Protonix] 40 mg PO DAILY 12/14/16 [History] Polyethylene Glycol 3350 [MiraLAX Powder Bulk 17.9 Oz] 17 gm PO DAILY PRN [History] Sennosides/Docusate Sodium [Senna-Docusate Sodium Tablet] 1 tab PO BID PRN 12/14 [History] Spironolactone [Aldactone] 50 mg PO DAILY 12/14/16 [History] Tizanidine HCl [Zanaflex] 2 mg PO BID 12/14/16 [History] Potassium Chloride [Klor-Con Sprinkle] 20 meq PO BID 02/13/17 [History] DULoxetine [Cymbalta] 30 mg PO DAILY 02/14/17 [History] Tamsulosin [Flomax] 0.4 mg PO DAILY 02/14/17 [History] LORazepam [Ativan] 0.5 mg PO HS PRN #2 02/17/17 [Rx] Metoprolol [Lopressor] 25 mg PO BID 05/27/17 [History] Oxycodone HCl 10 mg PO TID PRN 05/27/17 [History] Amiodarone [Cordarone] 200 mg PO DAILY 07/05/17 [History] Capsaicin [Arthritis Pain Relief] 1 appl TP BID PRN 07/05/17 [History] Finasteride [Proscar] 5 mg PO DAILY 07/05/17 [History] Fluticasone/Salmeterol [Advair 250-50 Diskus] 1 each IH BID 07/05/17 [History] Furosemide [Lasix] 20 mg PO DAILY 07/05/17 [History] Insulin ASPART [Novolog Flexpen] 2 unit SQ AD PRN 07/05/17 [History] Lidocaine 4% CRM (LMX) [Lmx 4] 1 appl TP QID PRN 07/05/17 [History] Memantine HCl 10 mg PO BID 07/05/17 [History] Simethicone [Gas-X] 160 mg PO BID PRN 07/05/17 [History] Triamcinolone Acet 0.1% CRM [Kenalog] 1 appl TP BID 07/05/17 [History] Tiotropium Br/Olodaterol HCl [Stiolto Respimat Inhal Mary [place]] 2 puff IH DAILY 11/17 [History] Allergies/Adverse Reactions: 3 Allergy/AdvReac Type Severity Reaction Status Date / Time IVP DYE Allergy Anaphylaxis Uncoded 07/05/17 13:07 Procedures/tests Complete & Pending: Procedures Performed prior 72 hours Category Date Time Status CL Cardiac Catheterization [CL] Routine Passementerie Worker 07/08/17 09:37 Stop Req Left Heart Cath [CL Cardiac Catheterization] [CL] Passementerie Worker 07/08/17 08:57 Ordered Routine US retroperitoneal comp [US] Routine Exams 07/06/17 20:00 Completed Date of admission: 07/05/17 15:59 [facility] care physician: [facility] Consults: 07/05/17 16:26 Consult to Nutrition [CONS] Routine Comment: Consulting Provider: NUTRITION Reason for Dietary Consult: MST Score Consult to Pastoral Services [CONS] Stat Comment: 07/05/17 17:33 Consult to Nephrology [CONS] Stat Consulting Provider: Roberto Bray Reason for Consult: elevated bun/creat Call Completed: Yes 07/05/17 18:08 Consult to Occupational Therapy [CONS] Routine Comment: Evaluate, develop and implement POC Reason for Consult: Pts. 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 She states he was receiving OT/PT care but this ended and he still requires therapy. Please assess patient for ambulation strength, stability, safety, and possible home assistive needs for post-discharge planning. 07/05/17 18:10 Consult to Physical Therapy [CONS] Routine Comment: Evaluate, develop and implement POC Reason for Consult: Pts. 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 She states he was receiving OT/PT care but this ended and he still requires therapy. Please assess patient for ambulation strength, stability, safety, and possible home assistive needs for post-discharge planning. 07/06/17 14:28 Consult to Speech Therapy [CONS] Stat Comment: Evaluate, develop and implement POC Reason for Consult: dysphagia Call Completed: Yes Discharging clinician: Emily Ayoub Anticipated date of discharge: 07/09/17 - Patient Status Disposition: Home Health Service Condition: Good Functional capacity at discharge: uses cane/walker Overall status at discharge: patient is back to baseline - Discharge Instructions Follow Up With: [facility] [Primary Care Provider] - Additional Instructions: Please follow up with your primary care physician within five days after your discharge from the hospital. Please follow up with cardiology, nephrology within one to two weeks after your discharge from the hospital. Resume all your home medications as prescribed by your primary care physician. Hold your blood pressure medications for systolic blood pressure less than 100. Seek medical help immediately if chest pain reoccurs - Diet and Activity Activity: as per physical therapy, wear oxygen at all times, wear oxygen at night Diet: diabetic diet, low fat, low cholesterol, low salt diet Hospital course: Mr. Issa is a 67 year old male with PMH Of Afib, CAD, CKD, HTN admitted for chest pain and Amandeep on CKD. Pt was evaluated by cardiology and nephrology. His lasix dose was placed on hold, gentle IV fluid hydration was started, heparin gtt was started. when his renal function returned to baseline, he underwent LHC. LHC showed no significant CAD and pt is cleared for d/c from cardio standpoint. Pt's renal function remained at baseline s/p LHC. He was evaluated by physical therapy and ECF was recommended. Pt however had a in the family and wishes to return home with home health services. At this time pt is stable for discharge with home health services. - Time Spent with Patient Total time spent providing and/or coordinating discharge services: Greater than 30 minutes - Constitutional Vitals: Temp Pulse Resp BP Pulse Ox 97.9 F 65 16 97/62 93 07/09/17 11:26 07/09/17 11:26 07/09/17 11:26 07/09/17 11:26 07/09/17 11:26 General appearance: Present: cooperative, A&O X 3, pleasant, no acute distress, obese, answers questions appropriately - Head Head exam: Present: atraumatic, normocephalic - Respiratory Respiratory exam: Absent: rales, respiratory distress, wheezes - Cardiovascular Cardiovascular exam: Present: RRR, +S1, +S2. Absent: diastolic murmur, gallop, rubs, systolic murmur - GI/Abdominal GI/Abdominal exam: Present: normal bowel sounds, soft, no peritoneal signs. Absent: distended, tenderness - Extremities Exam Extremities exam: Present: warm, radial pulses palpable and symmetrical. Absent : calf tenderness - Neurological Exam Neurological exam: Present: alert, oriented X3 - VTE Documentation of Mechanical Device: Intermittent pneumatic compression device
--- NOTE | 2017-07-09 14:27 | Physician Discharge Referral ---
Home Health/Hosp Referral Info Transfer to: Home Health Provider in Charge Post Discharge: PCP - Diagnosis (1) Chest pain Priority: Primary Status: Resolved (2) [id number] kidney injury Priority: Secondary Status: Acute (3) HTN (hypertension) Priority: Secondary Status: Chronic (4) COPD (chronic obstructive pulmonary disease) Priority: Secondary Status: Chronic (5) CHF (congestive heart failure) Priority: Secondary Status: Chronic (6) Atrial fibrillation Priority: Secondary Status: Chronic (7) Obesity (BMI 30-39.9) Priority: Secondary Status: Chronic (8) Chronic pain Priority: Secondary Status: Acute - Respiratory Orders Smoking Cessation: Smoking cessation has been advised. For more information, call the [place] Tobacco Quit Line at 6-042-WQKX-NOW. - Services Needed Following services are medically necessary services: Nursing, Home Health Aide, Physical Therapy, Occupational Therapy - Transfer Medications Home Medications: Aspirin Enteric Coated [Aspirin EC] 81 mg PO DAILY #0 04/09/15 [History] Rivaroxaban [Xarelto] 20 mg PO DAILY #0 04/09/15 [History] Cholecalciferol (Vitamin D3) [Vitamin D3] 1,000 unit PO DAILY 03/12/16 [History] Albuterol Sulfate [Proair Hfa] 2 puff IH Q4H PRN 12/14/16 [History] Atorvastatin [Lipitor] 40 mg PO HS 12/14/16 [History] Gabapentin [Neurontin] 400 mg PO BID 12/14/16 [History] Pantoprazole Sodium [Protonix] 40 mg PO DAILY 12/14/16 [History] Polyethylene Glycol 3350 [MiraLAX Powder Bulk 17.9 Oz] 17 gm PO DAILY PRN [History] Sennosides/Docusate Sodium [Senna-Docusate Sodium Tablet] 1 tab PO BID PRN 12/14 [History] Spironolactone [Aldactone] 50 mg PO DAILY 12/14/16 [History] Tizanidine HCl [Zanaflex] 2 mg PO BID 12/14/16 [History] Potassium Chloride [Klor-Con Sprinkle] 20 meq PO BID 02/13/17 [History] DULoxetine [Cymbalta] 30 mg PO DAILY 02/14/17 [History] Tamsulosin [Flomax] 0.4 mg PO DAILY 02/14/17 [History] LORazepam [Ativan] 0.5 mg PO HS PRN #2 02/17/17 [Rx] Metoprolol [Lopressor] 25 mg PO BID 05/27/17 [History] Oxycodone HCl 10 mg PO TID PRN 05/27/17 [History] Amiodarone [Cordarone] 200 mg PO DAILY 07/05/17 [History] Capsaicin [Arthritis Pain Relief] 1 appl TP BID PRN 07/05/17 [History] Finasteride [Proscar] 5 mg PO DAILY 07/05/17 [History] Fluticasone/Salmeterol [Advair 250-50 Diskus] 1 each IH BID 07/05/17 [History] Furosemide [Lasix] 20 mg PO DAILY 07/05/17 [History] Insulin ASPART [Novolog Flexpen] 2 unit SQ AD PRN 07/05/17 [History] Lidocaine 4% CRM (LMX) [Lmx 4] 1 appl TP QID PRN 07/05/17 [History] Memantine HCl 10 mg PO BID 07/05/17 [History] Simethicone [Gas-X] 160 mg PO BID PRN 07/05/17 [History] Triamcinolone Acet 0.1% CRM [Kenalog] 1 appl TP BID 07/05/17 [History] Tiotropium Br/Olodaterol HCl [Stiolto Respimat Inhal [place]] 2 puff IH DAILY 11/17 [History] Allergies/Adverse Reactions: 3 Allergy/AdvReac Type Severity Reaction Status Date / Time IVP DYE Allergy Anaphylaxis Uncoded 07/05/17 13:07 Certification: Further, I certify that my clinical findings support that this patient is homebound (i.e. absences from home require considerable and taxing effort and are for medical reasons or [employer] services or infrequently or short duration when for other reasons) because: Homebound Reason: Patient requires assistance of a person or device to safely leave home Attestation: My signature below is to certify that this patient is under my care and that I, or nurse practitioner, or a physician's field research assistant working with me, has a face-to -face encounter with this patient.
[2017-07-09] MEDS: traZODone 50 MG TABLET PO SCH (21:07)
[2017-07-09] MEDS: *HR* LORazepam 0.5 MG TABLET PO PRN (21:08)
[2017-07-09] MEDS: Melatonin 3 MG TABLET PO SCH (21:10)
[2017-07-09] MEDS: tiZANidine 4 MG TABLET PO PRN (21:14)
[2017-07-10] MEDS: *HR* Acetylcysteine 20% 600 MG/3 ML ORAL SYRINGE PO SCH (00:49)
[2017-07-10 03:34] LABS: Basophils # 0.1 K/mcL (0.0-0.2); Basophils % 0.6 %; Eosinophils # 0.3 K/mcL (0.0-0.6); Eosinophils % 3.3 %; Hemoglobin 12.6 g/dL (12.9-16.9); Immature Granulocytes % 0.8 % (0-4); Immature Platelets 2.9 % (1.1-6.1); Lymphocytes # 1.8 K/mcL (0.6-4.6); Lymphocytes % 18.8 %; Mean Corpuscular HGB Conc 32.3 g/dL (31.6-35.5); Mean Corpuscular Hemoglobin 28.4 pg (28.0-33.3); Mean Corpuscular Volume 87.8 fL (83.0-100.0); Mean Platelet Volume 10.1 fL (9.4-12.4); Monocytes # 1.1 K/mcL (0.0-1.3); Monocytes % 11.8 %; Platelet Count 197 K/mcL (140-400); Red Blood Count 4.44 M/mcL (4.19-5.50); Red Cell Distribution Width 15.2 % (11.5-14.5); Segmented Neutrophils % 64.7 %
[2017-07-10 03:54] LABS: Alanine Aminotransferase 63 Units/L (7-52); Albumin 3.5 g/dL (3.5-5.7); Albumin/Globulin Ratio 1.3 (1.1-2.2); Alkaline Phosphatase 81 Units/L (34-104); Aspartate Amino Transferase 46 Units/L (13-39); BUN/Creatinine Ratio 21 (6-26); Bilirubin,Total 0.3 mg/dL (0.3-1.0); Blood Urea Nitrogen 29 mg/dL (8-23); Calcium 8.9 mg/dL (8.6-10.3); Carbon Dioxide 27 mEq/L (23-29); Chloride 100 mEq/L (98-107); Globulin 2.6 g/dL (2.4-3.5); Glucose 97 mg/dL (70-105); Osmolality,Calculated 282 (280-300); Potassium 4.6 mEq/L (3.5-5.1); Sodium 133 mEq/L (136-145); Total Protein 6.1 g/dL (6.4-8.9); eGFR For African Americans > 60 (> 60); eGFR For Non-African Americans 50 (> 60)
[2017-07-10] MEDS: Budesonide/Formoterol 80/4.5 MDI IH SCH ×2 (08:26→21:11)
[2017-07-10] MEDS: Insulin LISPRO 300 UNITS/3 ML VIAL SQ SCH ×4 (08:27→20:42)
[2017-07-10] MEDS: Finasteride 5 MG TABLET PO SCH (09:05)
[2017-07-10] MEDS: Cholecalciferol (D-3) 1,000 UNIT TABLET PO SCH (09:05)
[2017-07-10] MEDS: Olodaterol Hcl [Striverdi Respimat] IH SCH (09:06)
[2017-07-10] MEDS: Isosorbide MONOnitrate (24 HR) 30 MG TAB.ER.24H PO SCH (09:06)
[2017-07-10] MEDS: *HR* Amiodarone 200 MG TABLET PO SCH (09:06)
[2017-07-10] MEDS: Aspirin Enteric Coated 81 MG Tablet PO SCH (09:06)
[2017-07-10] MEDS: Gabapentin 400 MG CAPSULE PO SCH ×2 (09:06→20:41)
[2017-07-10] MEDS: Triamcinolone Acet 0.1% CRM 15 GM TUBE TP SCH ×2 (09:06→20:41)
--- NOTE | 2017-07-10 13:05 | Internal Med Progress Note ---
Date of Encounter: 07/10/17 Time of Encounter: 13:03 - Assessment and plan (1) Chest pain Current Visit: Yes Status: Resolved Qualifiers: Chest pain type: precordial pain Qualified Code(s): R07.2 - Precordial pain (2) Uzsza-yz-[id number] kidney injury Current Visit: Yes Status: Acute Qualifiers: Acute renal failure type: unspecified Chronic kidney disease stage: stage 3 (moderate) Qualified Code(s): N17.9 - Acute kidney failure, unspecified; N18.3 - Chronic kidney disease, stage 3 (moderate); N18.3 - Chronic kidney disease, stage 3 (moderate) (3) HTN (hypertension) Current Visit: Yes Status: Chronic Qualifiers: Hypertension type: essential hypertension Qualified Code(s): I10 - Essential (primary) hypertension (4) COPD (chronic obstructive pulmonary disease) Current Visit: Yes Status: Chronic Qualifiers: COPD type: unspecified COPD Qualified Code(s): J44.9 - Chronic obstructive pulmonary disease, unspecified (5) CHF (congestive heart failure) Current Visit: Yes Status: Chronic Qualifiers: Congestive heart failure type: diastolic Congestive heart failure chronicity: chronic Qualified Code(s): I50.32 - Chronic diastolic (congestive ) heart failure (6) Atrial fibrillation Current Visit: Yes Status: Chronic Qualifiers: Atrial fibrillation type: paroxysmal Qualified Code(s): I48.0 - Paroxysmal atrial fibrillation (7) Obesity (BMI 30-39.9) Current Visit: Yes Status: Chronic (8) Chronic pain Current Visit: Yes Status: Acute Qualifiers: Chronic pain type: other chronic pain Qualified Code(s): G89.29 - Other chronic pain - Subjective Interval history: Pt seen and examined at bedside. resting in bed and denies any distress. 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 pt and family states if he is not able to get ECF placement approved through his insurance then he will go home with home health services. Resumed home medications labs and vitals reviewed. - Constitutional Vitals: Temp Pulse Resp BP Pulse Ox 97.6 F 62 19 102/69 93 07/10/17 06:55 07/10/17 06:55 07/10/17 08:28 07/10/17 06:55 07/10/17 09:10 General appearance: Present: cooperative, A&O X 3, pleasant, no acute distress, obese, answers questions appropriately - Head Head exam: Present: atraumatic, normocephalic - Eye Eye exam: Present: conjuntiva pink, sclera anicteric - Respiratory Respiratory exam: Present: CTAB. Absent: respiratory distress, wheezes - Cardiovascular Cardiovascular exam: Present: RRR, +S1, +S2. Absent: diastolic murmur, gallop, rubs, systolic murmur - GI/Abdominal GI/Abdominal exam: Present: normal bowel sounds, soft, no peritoneal signs. Absent: distended, tenderness - Extremities Exam Extremities exam: Present: warm, radial pulses palpable and symmetrical. Absent : calf tenderness - Neurological Exam Neurological exam: Present: alert, oriented X3 - Psychiatric Psychiatric exam: Present: normal affect, normal mood Internal Medicine: Result - Labs CBC & Chem 7: 07/10/17 02:54 07/10/17 02:54 Labs: Short CBC 07/10/17 Range/Units 02:54 WBC 9.3 (4.3-11.1) K/mcL Hgb 12.6 L (12.9-16.9) g/dL Hct 39.0 (37.5-50.1) % Plt Count 197 (140-400) K/mcL Neutrophils # 6.0 (1.6-8.9) K/mcL BMP 07/10/17 02:54 Sodium 133 L Potassium 4.6 Chloride 100 Carbon Dioxide 27 BUN 29 H Creatinine 1.41 H Glucose 97 Calcium 8.9 Liver Function 07/10/17 Range/Units 02:54 Total Bilirubin 0.3 (0.3-1.0) mg/dL AST 46 H (13-39) Units/L ALT 63 H (7-52) Units/L Alkaline Phosphatase 81 (34-104) Units/L Albumin 3.5 (3.5-5.7) g/dL - ABG Interpretation ABG results: PT/INR, D-dimer PT 17.6 Seconds (9.4-12.1) H 07/06/17 05:20 - VTE Documentation of Mechanical Device: Intermittent pneumatic compression device Consult Discharge Plan - Plan Instructions: Chest Pain (DC), Chest Pain (GEN), Acute Kidney Injury (DC), Acute Kidney Injury (GEN), Acute Kidney Injury, Health Safety Engineer (GEN) Additional Instructions: Please follow up with your primary care physician within five days after your discharge from the hospital. Please follow up with cardiology, nephrology within one to two weeks after your discharge from the hospital. Resume all your home medications as prescribed by your primary care physician. Hold your blood pressure medications for systolic blood pressure less than 100. Seek medical help immediately if chest pain reoccurs Referrals: Ankush Zhao CNP [Advanced Practice Nurse] - Erica Witt MD [Partnered Physician] - [place],PCP [Primary Care Provider] -
[2017-07-10] MEDS: Furosemide 20 MG TABLET PO SCH (16:03)
[2017-07-10] MEDS ORDERED: *HR* Rivaroxaban 10 MG TABLET PO SCH (17:00)
[2017-07-10] MEDS: Melatonin 3 MG TABLET PO SCH (20:40)
[2017-07-10] MEDS: *HR* LORazepam 0.5 MG TABLET PO PRN (20:40)
[2017-07-10] MEDS: tiZANidine 4 MG TABLET PO PRN (20:40)
[2017-07-10] MEDS: traZODone 50 MG TABLET PO SCH (20:41)
[2017-07-10 23:18] LABS: Bilirubin,Urine Negative (Negative); Blood,Urine Small (Negative); Clarity,Urine Clear (Clear); Color,Urine Yellow (Yellow); Glucose,Urine (UA) Normal (Normal); Ketones,Urine Negative (Negative); Leukocyte Esterase,Urine Small (Negative); Nitrite,Urine Negative (Negative); PH,Urine 6.5 pH Units (5.0-8.0); Protein,Urine Negative (Neg-Trace); Specific Gravity,Urine 1.015 (1.010-1.025); Urobilinogen,Urine Normal (Normal)
[2017-07-10 23:20] LABS: Bacteria,Urine None Seen per hpf (None-Few); Hyaline Casts,Urine None Seen per lpf (None-Few); RBC,Urine 15-30 per hpf (0-3); Squamous Epithelial Cell,Urine Many per lpf (None-Few); WBC,Urine 30-50 per hpf (0-3)
[2017-07-11 07:26] VITALS: BP 109/73
[2017-07-11] MEDS: Budesonide/Formoterol 80/4.5 MDI IH SCH (08:19)
[2017-07-11] MEDS: Insulin LISPRO 300 UNITS/3 ML VIAL SQ SCH ×2 (09:47→12:14)
[2017-07-11] MEDS: *HR* Amiodarone 200 MG TABLET PO SCH (09:59)
[2017-07-11] MEDS: Aspirin Enteric Coated 81 MG Tablet PO SCH (09:59)
[2017-07-11] MEDS: Triamcinolone Acet 0.1% CRM 15 GM TUBE TP SCH (10:00)
[2017-07-11] MEDS: Furosemide 20 MG TABLET PO SCH (10:00)
[2017-07-11] MEDS: Cholecalciferol (D-3) 1,000 UNIT TABLET PO SCH (10:00)
[2017-07-11] MEDS: Isosorbide MONOnitrate (24 HR) 30 MG TAB.ER.24H PO SCH (10:00)
[2017-07-11] MEDS: Gabapentin 400 MG CAPSULE PO SCH (10:00)
[2017-07-11] MEDS: Finasteride 5 MG TABLET PO SCH (10:00)
--- NOTE | 2017-07-11 11:50 | Internal Med Progress Note ---
Date of Encounter: 07/11/17 Time of Encounter: 11:48 - Assessment and plan (1) Chest pain Current Visit: Yes Status: Resolved Qualifiers: Chest pain type: precordial pain Qualified Code(s): R07.2 - Precordial pain (2) Obesity (BMI 30.0-34.9) Current Visit: No Status: Chronic (3) COPD (chronic obstructive pulmonary disease) Current Visit: No Status: Acute Qualifiers: COPD type: unspecified COPD Qualified Code(s): J44.9 - Chronic obstructive pulmonary disease, unspecified (4) HTN (hypertension) Current Visit: Yes Status: Chronic Qualifiers: Hypertension type: essential hypertension Qualified Code(s): I10 - Essential (primary) hypertension (5) Atrial fibrillation Current Visit: Yes Status: Chronic Qualifiers: Atrial fibrillation type: paroxysmal Qualified Code(s): I48.0 - Paroxysmal atrial fibrillation (6) Hxyod-ma-ucvkvfi kidney injury Current Visit: Yes Status: Acute Qualifiers: Acute renal failure type: unspecified Chronic kidney disease stage: stage 3 (moderate) Qualified Code(s): N17.9 - Acute kidney failure, unspecified; N18.3 - Chronic kidney disease, stage 3 (moderate); N18.3 - Chronic kidney disease, stage 3 (moderate) (7) Chronic pain Current Visit: Yes Status: Acute Qualifiers: Chronic pain type: other chronic pain Qualified Code(s): G89.29 - Other chronic pain - Subjective Interval history: No acute events. The patient is planned for discharge today. His discharge was held the last couple days due to the weather. Has been no acute issues. Chest pain. Afebrile. - Constitutional Vitals: Temp Pulse Resp BP Pulse Ox 97.8 F 64 18 109/73 92 07/11/17 07:00 07/11/17 07:00 07/11/17 08:20 07/11/17 07:00 07/11/17 08:20 General appearance: Present: cooperative, A&O X 3, pleasant, no acute distress, obese, answers questions appropriately Exam: GEN: NAD CVS: RRR. S1, S2, No m/r/g RESP: CTAB ABD: Soft, NT, ND, +BS EXT: No edema. 2+ DP. No rashes NEURO: Nonfocal Internal Medicine: Result - Labs CBC & Chem 7: 07/10/17 02:54 07/10/17 02:54 Labs: Urine 07/10/17 Range/Units 23:00 Urine Color Yellow (Yellow) Urine Clarity Clear (Clear) Urine pH 6.5 (5.0-8.0) pH Units Ur Specific [place] 1.015 (1.010-1.025) Urine Protein Negative (Neg-Trace) mg/dL Urine Glucose (UA) Normal (Normal) mg/dL - ABG Interpretation ABG results: PT/INR, D-dimer PT 17.6 Seconds (9.4-12.1) H 07/06/17 05:20 - VTE Documentation of Mechanical Device: Intermittent pneumatic compression device Consult Discharge Plan - Plan Instructions: Chest Pain (DC), Chest Pain (GEN), Acute Kidney Injury (DC), Acute Kidney Injury (GEN), Acute Kidney Injury, [employer] (GEN) Additional Instructions: Please follow up with your primary care physician within five days after your discharge from the hospital. Please follow up with cardiology, nephrology within one to two weeks after your discharge from the hospital. Resume all your home medications as prescribed by your primary care physician. Hold your blood pressure medications for systolic blood pressure less than 100. Seek medical help immediately if chest pain reoccurs Referrals: Ankush Zhao CNP [Advanced Practice Nurse] - (office will call patient with appointment date and time) Erica Witt MD [Partnered Physician] - () [facility] [Primary Care Provider] - (he has home base care)
== END 2017-07-11 14:03 | disposition home or self-care (01) | DRG 287 ==
LOC: EMEROO 12:57 → 2NENU 12:57
PROVIDERS: ADMIT Pediatrics; ATTEND Internal Medicine

== ENCOUNTER 2017-07-20 18:53 | Inpatient (IN) ==
[2017-07-20] MEDS ORDERED: 0.9 % Sodium Chloride 500 ML IVC ONE (18:56)
[2017-07-20 19:39] LABS: Hematocrit 49.9 % (37.5-50.1); Hemoglobin 16.3 g/dL (12.9-16.9); Mean Corpuscular HGB Conc 32.7 g/dL (31.6-35.5); Mean Corpuscular Hemoglobin 28.3 pg (28.0-33.3); Mean Corpuscular Volume 86.6 fL (83.0-100.0); Mean Platelet Volume 9.8 fL (9.4-12.4); Platelet Count 280 K/mcL (140-400); Red Blood Count 5.76 M/mcL (4.19-5.50); Red Cell Distribution Width 14.9 % (11.5-14.5)
[2017-07-20 19:55] LABS: Calcium 9.9 mg/dL (8.6-10.3)
--- NOTE | 2017-07-20 20:06 | Emergency Department Note ---
Disposition Clinical Impression: Anticoagulation adequate, Weakness GI bleed Qualifiers: GI bleed type/associated pathology: unspecified gastrointestinal hemorrhage type Qualified Code(s): K92.2 - Gastrointestinal hemorrhage, unspecified Renal failure (ARF), acute on chronic Qualifiers: Acute renal failure type: unspecified Chronic kidney disease stage: unspecified stage Qualified Code(s): N17.9 - Acute kidney failure, unspecified; N18.9 - Chronic kidney disease, unspecified; N18.9 - Chronic kidney disease, unspecified Disposition: Admitted As Inpatient Referrals: Krish-Edda Banda DO [Primary Care Provider] - Forms: ED Satisfaction Letter, Work/School Release Time of Disposition: 21:00 GI Bleed HPI - General Chief complaint: ED General Medical Stated complaint: "feels tired" Time Seen by Provider: 07/20/17 18:55 Source: patient, EMS Limitations: no limitations Nursing Notes Reviewed: Yes Vital Signs Reviewed: Yes - History of Present Illness HPI Narrative: Patient presents with generalized fatigue, bright red stool per rectum which has been going on for the last 3 days and began at home and occurs about 1 time per day. feels that he does have some confusion. He has had abdominal pain but none at this time. The patient does have chronic unilateral weakness but no new weakness. He does not have any chest pain. He does use Xarelto. Patient does have a history of stroke. Social history: No smoking or alcohol - Related Data Home Medications Medication Instructions Recorded Confirmed Aspirin Enteric Coated [Aspirin EC] 81 mg PO DAILY #0 04/09/15 07/20/17 Rivaroxaban [Xarelto] 20 mg PO DAILY #0 04/09/15 07/20/17 Cholecalciferol (Vitamin D3) 1,000 unit PO DAILY 03/12/16 07/20/17 [Vitamin D3] Albuterol Sulfate [Proair Hfa] 2 puff IH Q4H PRN 12/14/16 07/20/17 Atorvastatin [Lipitor] 40 mg PO HS 12/14/16 07/20/17 Gabapentin [Neurontin] 400 mg PO BID 12/14/16 07/20/17 Pantoprazole Sodium [Protonix] 40 mg PO DAILY 12/14/16 07/20/17 Polyethylene Glycol 3350 [MiraLAX 17 gm PO DAILY PRN 12/14/16 07/20/17 Powder Bulk 17.9 Oz] Sennosides/Docusate Sodium 1 tab PO BID PRN 12/14/16 07/20/17 [Senna-Docusate Sodium Tablet] Spironolactone [Aldactone] 50 mg PO DAILY 12/14/16 07/20/17 Tizanidine HCl [Zanaflex] 2 mg PO BID 12/14/16 07/20/17 Potassium Chloride [Klor-Con 20 meq PO BID 02/13/17 07/20/17 Sprinkle] DULoxetine [Cymbalta] 30 mg PO DAILY 02/14/17 07/20/17 Tamsulosin [Flomax] 0.4 mg PO DAILY 02/14/17 07/20/17 Metoprolol [Lopressor] 25 mg PO BID 05/27/17 07/20/17 OxyCODONE Immed Rel [Roxicodone 10 10 mg PO TID PRN 05/27/17 07/20/17 MG] Amiodarone [Cordarone] 200 mg PO DAILY 07/05/17 07/20/17 Capsaicin [Arthritis Pain Relief] 1 appl TP BID PRN 07/05/17 07/20/17 Finasteride [Proscar] 5 mg PO DAILY 07/05/17 07/20/17 Furosemide [Lasix] 20 mg PO DAILY 07/05/17 07/20/17 Insulin ASPART [Novolog Flexpen] 0 unit SQ AD PRN 07/05/17 07/20/17 Lidocaine 4% CRM (LMX) [Lmx 4] 1 appl TP QID PRN 07/05/17 07/20/17 Memantine HCl 10 mg PO BID 07/05/17 07/20/17 Simethicone [Gas-X] 160 mg PO BID PRN 07/05/17 07/20/17 Tiotropium Br/Olodaterol HCl 2 puff IH DAILY 07/07/17 07/20/17 [Stiolto Respimat Inhal [place]] metOLazone [Zaroxolyn] 2.5 mg PO DAILY 07/20/17 07/20/17 Previous Rx's Medication Instructions Recorded LORazepam [Ativan] 0.5 mg PO HS PRN #2 02/17/17 Allergies Allergy/AdvReac Type Severity Reaction Status Date / Time IVP DYE Allergy Anaphylaxis Uncoded 07/05/17 13:07 Review of Systems: Constitutional: No fever Vision: No new blurred vision ENT: No rhinorrhea Respiratory: + cough Allergic: No allergies : No blood in urine GI: + blood in stool Hematologic: No bruising Dermatologic: No skin rash Musculoskeletal: No pain in the extremities Neuro: No new numbness of the extremities Past Medical History - Past Medical History Medical history: Reports: arthritis, atrial fibrillation, CHF, COPD, coronary artery disease, CVA, GERD, hyperlipidemia, hypertension, pulmonary embolus, syncope, venous stasis, other Surgical history: Reports: herniorrhaphy, knee replacement, pacemaker/AICD, other Psychiatric history: Reports: anxiety, depression - Social History Smoking Status: Former smoker Smokeless Tobacco Status: No Alcohol use: Reports: none Drug use: Reports: none Physical Exam CONSTITUTIONAL: Alert and oriented X3she does know the day of the week, month, year and name of the hospital , well-nourished, tired appearing, in no apparent distress HEAD: Normocephalic; atraumatic. EYES: PERRL, no scleral icterus. NOSE: The nose is normal in appearance without rhinorrhea RESP: Normal chest excursion with respiration; breath sounds clear and equal bilaterally; no wheezes, rhonchi, or rales CARD: Regular rhythm, without murmurs, rub or gallop ABD: Non-distended; non-tender, soft,without rigidity, rebound or guarding SKIN: Normal for age and race; warm and dry; no apparent lesions - General Limitations: no limitations General appearance: alert, in no apparent distress Course Vital Signs Temperature 98.1 F 07/20/17 18:55 Pulse Rate 62 07/20/17 18:55 Respiratory Rate 18 07/20/17 18:55 Blood Pressure 118/86 07/20/17 18:55 O2 Sat by Pulse Oximetry 98 07/20/17 18:55 Temperature 98.1 F 07/20/17 18:55 Pulse Rate 62 07/20/17 18:55 Respiratory Rate 18 07/20/17 18:55 Blood Pressure 118/86 07/20/17 18:55 O2 Sat by Pulse Oximetry 98 07/20/17 18:55 Oxygen Delivery Oxygen Delivery Room Air GI Bleed - MDM Narrative Medical decision making narrative: rectal exam is done and read in level is 1.99 the patient does have a history of chronic renal failure. Chest x-ray is pending. I did review the patient's EKG showing a sinus rhythm with a rate of 62, first-degree AV block and there is ST elevation in the inferior leads II, III, and F aVF but this was present with the previous EKG from July 05. The patient has recently been admitted to the hospital I did review these records. Additional results are pending. 2007 Case was discussed with the hospitalist who accepted the patient for admission. Primary concern is rectal bleeding on 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 with Xarelto as well as significant fatigue. The patient has a history of stroke and multiple comorbidities. The patient will be admitted. 2057 - Medical Records Medical records reviewed: Yes I reviewed the patient's medical records. - Lab Data Lab results reviewed: Yes I reviewed the patient's lab results. Result diagrams: 07/20/17 19:25 07/20/17 19:25 Lab Results 07/20/17 07/20/17 07/20/17 Range/Units 19:12 19:25 19:25 WBC 7.5 (4.3-11.1) K/mcL RBC 5.76 H (4.19-5.50) M/mcL Hgb 16.3 (12.9-16.9) g/dL Hct 49.9 (37.5-50.1) % MCV 86.6 (83.0-100.0) fL MCH 28.3 (28.0-33.3) pg MCHC 32.7 (31.6-35.5) g/dL RDW 14.9 H (11.5-14.5) % Plt Count 280 (140-400) K/mcL MPV 9.8 (9.4-12.4) fL Sodium 133 L (136-145) mEq/L Potassium 4.0 (3.5-5.1) mEq/L Chloride 94 L (98-107) mEq/L Carbon Dioxide 31 H (23-29) mEq/L BUN 38 H (8-23) mg/dL Creatinine 1.99 H (0.70-1.30) mg/dL Est GFR ( Amer) 41 L (> 60) Est GFR (Non-Af Amer) 34 L (> 60) BUN/Creatinine Ratio 19 (6-26) Glucose 105 (70-105) mg/dL Calculated Osmolality 285 (280-300) Calcium 9.9 (8.6-10.3) mg/dL Stool Occult Blood Negative (Negative) Blood Type Antibody Screen 07/20/17 Range/Units 19:25 WBC (4.3-11.1) K/mcL RBC (4.19-5.50) M/mcL Hgb (12.9-16.9) g/dL Hct (37.5-50.1) % MCV (83.0-100.0) fL MCH (28.0-33.3) pg MCHC (31.6-35.5) g/dL RDW (11.5-14.5) % Plt Count (140-400) K/mcL MPV (9.4-12.4) fL Sodium (136-145) mEq/L Potassium (3.5-5.1) mEq/L Chloride (98-107) mEq/L Carbon Dioxide (23-29) mEq/L BUN (8-23) mg/dL Creatinine (0.70-1.30) mg/dL Est GFR ( Amer) (> 60) Est GFR (Non-Af Amer) (> 60) BUN/Creatinine Ratio (6-26) Glucose (70-105) mg/dL Calculated Osmolality (280-300) Calcium (8.6-10.3) mg/dL Stool Occult Blood (Negative) Blood Type A POSITIVE Antibody Screen NEGATIVE - Radiology Data Radiology results reviewed: Yes I reviewed the patient's radiology results.
--- NOTE | 2017-07-21 02:20 | Internal Med History&Physical ---
<Wili Ingram - Last Filed: 07/21/17 04:04> Date of Encounter: 07/21/17 Time of Encounter: 01:00 Assessment and Plan (1) GI bleed Current visit: Yes Status: Acute Holding xarelto Last colonoscopy approximately 5 years ago BUN/Cr approximately 20:1 GI consult in the AM Low rate maintenance fluids Qualifiers: GI bleed type/associated pathology: unspecified gastrointestinal hemorrhage type Qualified Code(s): K92.2 - Gastrointestinal hemorrhage, unspecified (2) Weakness Current visit: Yes Status: Acute Unclear etiology currently Chronic deconditioning may be playing a role Possible viral illness Administering low rate maintenance fluid (3) Acute kidney injury Current visit: Yes Status: Acute Cr 1.99 Baseline 1.3s Holding lasix Administering low rate maintenance fluids will monitor (4) CKD (chronic kidney disease) Current visit: Yes Status: Chronic Cr above baseline See plan of care for AG Qualifiers: Chronic kidney disease stage: stage 3 (moderate) Qualified Code(s): N18.3 - Chronic kidney disease, stage 3 (moderate) (5) [id number] kidney injury Current visit: Yes Status: Acute See plan of care for AG Avoid nephrotoxins Qualifiers: Acute renal failure type: unspecified Chronic kidney disease stage: unspecified stage Qualified Code(s): N17.9 - Acute kidney failure, unspecified ; N18.9 - Chronic kidney disease, unspecified; N18.9 - Chronic kidney disease, unspecified (6) Cerebrovascular accident Current visit: No Status: Resolved Three separate CVAs, 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 Residual right sided weakness Qualifiers: CVA mechanism: embolism Precerebral and cerebral artery: unspecified cerebral artery Qualified Code(s): I63.40 - Cerebral infarction due to embolism of unspecified cerebral artery (7) Hypertension Current visit: Yes Status: Chronic Restarting home medications Qualifiers: Hypertension type: essential hypertension Qualified Code(s): I10 - Essential (primary) hypertension (8) CAD (coronary atherosclerotic disease) Current visit: No Status: Chronic Continue home medications Qualifiers: Coronary Disease-Associated Artery/Lesion type: unspecified vessel or lesion type [place] vs. transplanted heart: [place] heart Associated angina: without angina Qualified Code(s): I25.10 - Atherosclerotic heart disease of [place] coronary artery without angina pectoris (9) Atrial fibrillation Current visit: No Status: Chronic Currently in sinus rhythm Holding xarelto secondary to possible GI bleed Qualifiers: Atrial fibrillation type: paroxysmal Qualified Code(s): I48.0 - Paroxysmal atrial fibrillation (10) COPD (chronic obstructive pulmonary disease) Current visit: Yes Status: Chronic Stable, no exacerbation suspected Qualifiers: COPD type: unspecified COPD Qualified Code(s): J44.9 - Chronic obstructive pulmonary disease, unspecified (11) Diabetes mellitus Current visit: Yes Status: Chronic Started low dose sliding scale insulin Qualifiers: Diabetes mellitus type: type 2 Diabetes mellitus complication status: with kidney complications Diabetes mellitus complication detail: with chronic kidney disease Diabetes mellitus jail insulin use: without jail use Chronic kidney disease stage: stage 3 (moderate) Qualified Code(s): E11.22 - Type 2 diabetes mellitus with diabetic chronic kidney disease; N18.3 - Chronic kidney disease, stage 3 (moderate); N18.3 - Chronic kidney disease, stage 3 (moderate) (12) HLD (hyperlipidemia) Current visit: Yes Status: Chronic Start home medications Qualifiers: Hyperlipidemia type: pure hypercholesterolemia Qualified Code(s): E78.00 - Pure hypercholesterolemia, unspecified; E78.0 - Pure hypercholesterolemia (13) CHF (congestive heart failure) Current visit: Yes Status: Chronic Appears euvolemic Giving low rate fluids for AG will monitor Qualifiers: Congestive heart failure type: diastolic Congestive heart failure chronicity: chronic Qualified Code(s): I50.32 - Chronic diastolic (congestive ) heart failure (14) DVT prophylaxis Current visit: Yes Status: Acute Holding pharmacologic prophylaxis due to possible GI bleed SCDs Internal Medicine - H&P: HPI Chief complaint: Weakness, BRBPR Admitted From: Home Plans for Post Hospital Care: Home History of present illness: Mr. Issa is a 67 year old male presenting with three days of weakness. He additionally complains of insomnia, nausea, feeling "overheated" (without taking his temperature), chills, dizziness on standing, SOB worse than his baseline, cough, nausea, and confusion. He denies chest pain and vomiting. He states that he had one episode of bright red blood per rectum today, which he noticed on wiping. He is not sure if there was blood in the toilet bowl. He believes his last colonoscopy to be within the last 5 years. PMH significant for Afib, CHF, COPD, CAD, CVA x3 (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, HLD, HTN , CKD, DM w/ neuropathy, RA, and OA. Past Med Surg Social Fam HX - Past Medical History Medical history: arthritis, atrial fibrillation, CHF, COPD, coronary artery disease, CVA, GERD, hyperlipidemia, hypertension, pulmonary embolus, syncope, venous stasis, other Psychiatric history: anxiety, depression - Past Surgical History Surgical History: herniorrhaphy, knee replacement, pacemaker/AICD, other - Social History Smoking Status: Former smoker Smokeless Tobacco Status: No Alcohol use: none Drug use: none - Family History Father Adopted: No Family Member Ethnicity: Non- Living Status: Hx Family Cardiac Disorders: No Hx Family Respiratory Disorders: No Hx Family Cancer: Yes (Leukemia) Hx Family GI Disorders: No Hx Family Endocrine Disorder: No Hx Family Neuromuscular Disorders: No Hx Family Neurologic Disorders: No Hx Family HEENT Disorders: No Hx Family Autoimmune Disorders: No Brother Family Member Ethnicity: Non- Living Status: Still Living Sister Family Member Ethnicity: Non- Living Status: Still Living Mother Adopted: No Family Member Ethnicity: Non- Twin of Family Member: Yes Living Status: Still Living Hx Family Cardiac Disorders: Yes (CHF, Afib) Hx Family Respiratory Disorders: No Hx Family Cancer: Yes (father leukemia) Hx Family GI Disorders: No Hx Family Endocrine Disorder: No Hx Family Neuromuscular Disorders: No Hx Family Neurologic Disorders: No Hx Family HEENT Disorders: No Hx Family Autoimmune Disorders: Yes (arthritis) Internal Medicine - H&P: Meds Aspirin Enteric Coated [Aspirin EC] 81 mg PO DAILY #0 04/09/15 [History] Rivaroxaban [Xarelto] 20 mg PO DAILY #0 04/09/15 [History] Cholecalciferol (Vitamin D3) [Vitamin D3] 1,000 unit PO DAILY 03/12/16 [History] Albuterol Sulfate [Proair Hfa] 2 puff IH Q4H PRN 12/14/16 [History] Atorvastatin [Lipitor] 40 mg PO HS 12/14/16 [History] Gabapentin [Neurontin] 400 mg PO BID 12/14/16 [History] Pantoprazole Sodium [Protonix] 40 mg PO DAILY 12/14/16 [History] Polyethylene Glycol 3350 [MiraLAX Powder Bulk 17.9 Oz] 17 gm PO DAILY PRN [History] Sennosides/Docusate Sodium [Senna-Docusate Sodium Tablet] 1 tab PO BID PRN 12/14 [History] Spironolactone [Aldactone] 50 mg PO DAILY 12/14/16 [History] Tizanidine HCl [Zanaflex] 2 mg PO BID 12/14/16 [History] Potassium Chloride [Klor-Con Sprinkle] 20 meq PO BID 02/13/17 [History] DULoxetine [Cymbalta] 30 mg PO DAILY 02/14/17 [History] Tamsulosin [Flomax] 0.4 mg PO DAILY 02/14/17 [History] LORazepam [Ativan] 0.5 mg PO HS PRN #2 02/17/17 [Rx] Metoprolol [Lopressor] 25 mg PO BID 05/27/17 [History] OxyCODONE Immed Rel [Roxicodone 10 MG] 10 mg PO TID PRN 05/27/17 [History] Amiodarone [Cordarone] 200 mg PO DAILY 07/05/17 [History] Capsaicin [Arthritis Pain Relief] 1 appl TP BID PRN 07/05/17 [History] Finasteride [Proscar] 5 mg PO DAILY 07/05/17 [History] Furosemide [Lasix] 20 mg PO DAILY 07/05/17 [History] Insulin ASPART [Novolog Flexpen] 0 unit SQ AD PRN 07/05/17 [History] Lidocaine 4% CRM (LMX) [Lmx 4] 1 appl TP QID PRN 07/05/17 [History] Memantine HCl 10 mg PO BID 07/05/17 [History] Simethicone [Gas-X] 160 mg PO BID PRN 07/05/17 [History] Tiotropium Br/Olodaterol HCl [Stiolto Respimat Inhal [place]] 2 puff IH DAILY 11/17 [History] metOLazone [Zaroxolyn] 2.5 mg PO DAILY 07/20/17 [History] 3 Allergy/AdvReac Type Severity Reaction Status Date / Time IVP DYE Allergy Anaphylaxis Uncoded 07/05/17 13:07 All Systems PM: A 10-system review of systems was performed and is negative for pertinent findings except as documented above in the HPI. Review of systems: As per HPI - Constitutional Vitals: Temp Pulse Resp BP Pulse Ox 98.4 F 65 14 109/77 94 07/20/17 23:23 07/20/17 23:23 07/20/17 23:23 07/20/17 23:23 07/20/17 23:23 General appearance: Present: cooperative, A&O X 3, pleasant, no acute distress, answers questions appropriately - Head Head exam: Present: atraumatic, normal inspection, normocephalic - ENT ENT exam: Present: mucous membranes moist - Neck Neck exam general surgery: Present: trachea midline - Respiratory Respiratory exam: Present: decreased breath sounds. Absent: accessory muscle use, rales, respiratory distress, rhonchi, wheezes - Cardiovascular Cardiovascular exam: Present: RRR, +S1, +S2 - GI/Abdominal GI/Abdominal exam: Present: distended, firm, soft, tenderness (midline), no peritoneal signs - Extremities Exam Extremities exam: Absent: pedal edema - Psychiatric Psychiatric exam: Present: normal affect, normal mood. Absent: agitated, anxious - Skin Skin exam: Present: dry, warm Internal Med - H&P Results - Labs CBC & Chem 7: 07/20/17 19:25 07/20/17 19:25 <Yamile Rodriguez - Last Filed: 07/21/17 07:07> Date of Encounter: 07/21/17 Internal Medicine - H&P: [facility] History of present illness: Mr. Issa is a 67 year old male All Systems PM: A 10-system review of systems was performed and is negative for pertinent findings except as documented above in the HPI. - Constitutional Vitals: Temp Pulse Resp BP Pulse Ox 98.4 F 62 14 105/69 96 07/21/17 04:15 07/21/17 04:15 07/21/17 04:15 07/21/17 04:15 07/21/17 04:15 Internal Med - H&P Results - Labs CBC & Chem 7: 07/21/17 04:20 07/21/17 04:20 Labs: Short CBC 07/21/17 Range/Units 04:20 WBC 9.2 (4.3-11.1) K/mcL Hgb 15.4 (12.9-16.9) g/dL Hct 46.7 (37.5-50.1) % Plt Count 269 (140-400) K/mcL BMP 07/21/17 04:20 Sodium 134 L Potassium 3.9 Chloride 96 L Carbon Dioxide 28 BUN 40 H Creatinine 1.97 H Glucose 103 Calcium 9.8 - Attending Attestation I have seen and examined pt independently. I have discussed with Resident physician Dr Ingram regarding the management plan. Agree with the documentation
[2017-07-21] MEDS: *HR* LORazepam 0.5 MG TABLET PO PRN ×2 (02:22→21:02)
[2017-07-21] MEDS: Melatonin 3 MG TABLET PO SCH ×2 (02:22→21:02)
[2017-07-21] MEDS ORDERED: D5% in Water 1,000 ML IVC PRN (02:36)
[2017-07-21] MEDS ORDERED: *HR* Dextrose 50 % in Water (Syg) 50 ML SYRINGE IVP PRN (02:36)
[2017-07-21] MEDS ORDERED: Naloxone 0.4 MG/ML INJ IVP PRN (02:36)
[2017-07-21] MEDS ORDERED: Dextrose Gel 15 GM/37.5 ML TUBE PO PRN ×2 (02:36)
[2017-07-21] MEDS ORDERED: Sennosides/Docusate Sodium TABLET PO PRN (02:43)
[2017-07-21] MEDS ORDERED: Simethicone 80 MG TAB.CHEW PO PRN (02:43)
[2017-07-21] MEDS ORDERED: Ondansetron ODT 4 MG TAB.RAPDIS SL PRN (02:57)
[2017-07-21 05:30] LABS: Hematocrit 46.7 % (37.5-50.1); Hemoglobin 15.4 g/dL (12.9-16.9); Mean Corpuscular Hemoglobin 28.3 pg (28.0-33.3); Mean Corpuscular Volume 85.7 fL (83.0-100.0); Mean Platelet Volume 9.7 fL (9.4-12.4); Platelet Count 269 K/mcL (140-400); Red Blood Count 5.45 M/mcL (4.19-5.50); Red Cell Distribution Width 15.1 % (11.5-14.5)
[2017-07-21 06:05] LABS: Calcium 9.8 mg/dL (8.6-10.3); Potassium 3.9 mEq/L (3.5-5.1)
[2017-07-21] MEDS: 0.9 % Sodium Chloride 1,000 ML IVC SCH ×2 (06:29→18:07)
[2017-07-21] MEDS: Insulin LISPRO 300 UNITS/3 ML VIAL SQ SCH ×3 (09:14→18:06)
[2017-07-21] MEDS: Aspirin Enteric Coated 81 MG Tablet PO SCH (10:27)
[2017-07-21] MEDS: *HR* Amiodarone 200 MG TABLET PO SCH (10:27)
--- NOTE | 2017-07-21 12:04 | Gastroenterology Consult Note ---
<Krystal Multani - Last Filed: 07/21/17 12:02> Date of Encounter: 07/21/17 Time of Encounter: 09:45 - Assessment and plan (1) Bright red rectal bleeding Status: Acute Assessment and plan: Pt presents with new onset bright red rectal bleeding and weakness. He is on xarelto for a-fib and followed by cardiology. He had recent normal left heart cath. Vital signs and HGB are stable, if unchanged will follow up in the office and schedule for outpatient colonoscopy. - Time Spent With Patient Total time spent is greater than 50% in coordination of care (as documented) at patient's floor/unit and/or counseling patient: GI History of Present Illness - Data of Consult Patient: known to practice within the last 3 years Consult date: 07/21/17 Requesting Physician: Chris Skelton DO - Consult Narrative Reason for consult: rectal bleeding History of present illness: Mr. Issa is a 67 year old male PMHx of Afib, CHF, COPD, CAD, CVA x3 (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), HLD, HTN, CKD, DM w/ neuropathy, RA, and OA. He presents with 3 day history of weakness. He states he felt very warm and dizzy yesterday. He also had an episode of bright red bleeding per rectum with wiping. He denies any black or tarry stools. He denies any nausea, vomiting, or diarrhea. He has occasional constipation. He has chronic LLQ pain. He has chronic GERD. He states last colonoscopy was approx 5 years ago. He is on xarelto for a-fib. He denies coronary stents. He reports he has a pacemaker but denies defibrillator. He had recent EKG changes and had LHC 07/08/17 which was normal. Colonoscopy: 2016 [place] diverticulosis random biopsies negative EGD: 03/18 gastritis, food residue in stomach NSAIDS/ASA: Anticoagulants: xarelto Past Med Surg Social Fam HX - Past Medical History Medical history: arthritis, atrial fibrillation, CHF, COPD, coronary artery disease, CVA, GERD, hyperlipidemia, hypertension, pulmonary embolus, syncope, venous stasis, other Psychiatric history: anxiety, depression - Past Surgical History Surgical History: herniorrhaphy, knee replacement, pacemaker/AICD, other - Social History Smoking Status: Former smoker Smokeless Tobacco Status: No Alcohol use: none Drug use: none - Family History Father Adopted: No Family Member Ethnicity: Non- Living Status: Hx Family Cardiac Disorders: No Hx Family Respiratory Disorders: No Hx Family Cancer: Yes (Leukemia) Hx Family GI Disorders: No Hx Family Endocrine Disorder: No Hx Family Neuromuscular Disorders: No Hx Family Neurologic Disorders: No Hx Family HEENT Disorders: No Hx Family Autoimmune Disorders: No Brother Family Member Ethnicity: Non- Living Status: Still Living Sister Family Member Ethnicity: Non- Living Status: Still Living Mother Adopted: No Family Member Ethnicity: Non- Twin of Family Member: Yes Living Status: Still Living Hx Family Cardiac Disorders: Yes (CHF, Afib) Hx Family Respiratory Disorders: No Hx Family Cancer: Yes (father leukemia) Hx Family GI Disorders: No Hx Family Endocrine Disorder: No Hx Family Neuromuscular Disorders: No Hx Family Neurologic Disorders: No Hx Family HEENT Disorders: No Hx Family Autoimmune Disorders: Yes (arthritis) Review of Systems: GI: as per [place] GENERAL: denies fever, or chills EYES: denies yellow discoloration ENT: denies pain with swallowing or difficulty swallowing CARDIO: denies chest pain, palpitations RESP: Shortness of breath with exertion : denies change in color of urine NEURO: weakness HEME: Denies any bruising MS: chronic joint and back pain. DERM: denies rash or itching PSYCH: history of anxiety and depression - Constitutional Vitals: Temp Pulse Resp BP Pulse Ox 97.8 F 65 16 109/75 96 07/21/17 10:15 07/21/17 10:15 07/21/17 10:15 07/21/17 10:15 07/21/17 10:15 Exam: CONSTITUTIONAL:~alert, no acute distress.~HEAD:~normocephalic.~EYES:~no jaundice.~NECK:~no obvious swelling.~HEART:~regular rate and rhythm, no murmurs. ~LUNGS:~bilateral fair air entry.~ABDOMEN:~non distended, soft, non tender, no masses palpable, no organomegaly.~RECTAL EXAM:~Deferred.~EXTREMITIES:~no clubbing, cyanosis or edema.~SKIN:~no stigmata of chronic liver disease.~ NEUROLOGIC:~no obvious focal defect.~~~~ Results - Labs CBC & Chem 7: 07/21/17 04:20 07/21/17 04:20 Labs: Last Result Calcium 9.8 mg/dL (8.6-10.3) 07/21/17 04:20 Stool Occult Blood Negative (Negative) 07/20/17 19:12 Entire Visit Hgb 15.4 g/dL (12.9-16.9) 07/21/17 04:20 Hct 46.7 % (37.5-50.1) 07/21/17 04:20 Consult Discharge Plan - Plan Additional Instructions: Please follow up with his primary care physician upon discharge. Take all medications as prescribed Referrals: Krish-Edda Banda DO [Primary Care Provider] - <Mathew Perez - Last Filed: 08/03/17 13:14> Date of Encounter: 07/21/17 - Time Spent With Patient Total time spent is greater than 50% in coordination of care (as documented) at patient's floor/unit and/or counseling patient: GI History of Present Illness - Data of Consult Requesting Physician: Chris Skelton DO - Consult Narrative History of present illness: Mr. Issa is a 67 year old male - Constitutional Vitals: Temp Pulse Resp BP Pulse Ox 97.7 F 61 18 97/65 96 07/26/17 07:22 07/26/17 07:22 07/26/17 07:22 07/26/17 07:22 07/26/17 08:13 Results - Labs CBC & Chem 7: 07/25/17 04:54 07/25/17 04:54 Labs: Last Result Calcium 8.7 mg/dL (8.6-10.3) 07/25/17 04:54 Stool Occult Blood Negative (Negative) 07/20/17 19:12 Entire Visit Hgb 13.5 g/dL (12.9-16.9) 07/25/17 04:54 Hct 41.5 % (37.5-50.1) 07/25/17 04:54 - Attending Attestation For this encounter, I have reviewed the [employer] or PA documentation, treatment plan, and medical decision making; and I have had face to face time with this patient.
[2017-07-21 13:05] LABS: Basophils # 0.1 K/mcL (0.0-0.2); Eosinophils # 0.3 K/mcL (0.0-0.6); Eosinophils % 3.9 %; Hematocrit 48.1 % (37.5-50.1); Hemoglobin 15.7 g/dL (12.9-16.9); Immature Granulocytes % 0.9 % (0-4); Lymphocytes % 12.8 %; Mean Corpuscular HGB Conc 32.6 g/dL (31.6-35.5); Mean Corpuscular Hemoglobin 28.2 pg (28.0-33.3); Mean Corpuscular Volume 86.5 fL (83.0-100.0); Mean Platelet Volume 9.6 fL (9.4-12.4); Monocytes # 1.3 K/mcL (0.0-1.3); Monocytes % 16.8 %; Platelet Count 283 K/mcL (140-400); Red Blood Count 5.56 M/mcL (4.19-5.50); Red Cell Distribution Width 15.3 % (11.5-14.5); Segmented Neutrophils % 64.6 %
[2017-07-21] MEDS ORDERED: Acetaminophen 325 MG TABLET PO PRN (14:27)
[2017-07-21] MEDS: *HR* HYDROcodone/Acet 5/325 mg TABLET PO PRN ×2 (15:00→21:06)
--- NOTE | 2017-07-21 17:02 | Event Note ---
<MiroslavaRosendo cerna - Last Filed: 07/21/17 16:48> Date of Encounter: 07/21/17 Time of Encounter: 11:05 Patient seen and examined at bedside this morning. He states that he presented to the emergency room due to weakness for the past couple weeks as well as an episode of dizziness, hot, nausea following a bowel movement which consisted of a small amount of bright red blood. He states this happened a couple of times and was concerned so he presented to emergency room. He has expressed no further episodes of bloody bowel movements since admission. Colonoscopy is unsure on timeline but he thinks it was normal and within last 5 years. Denies any symptoms this morning including chest pain, shortness of breath, vomiting but does admit to a small amount of nausea. Physical exam No acute distress, well-nourished male Heart regular rate and rhythm Lungs clear to auscultation bilaterally Bowel sounds present, no abdominal tenderness Assessment and Plan Vasovagal episode - Signs and symptoms likely pointing to vasovagal episode - Patient may symptomatically at this time - Patient was counseled on not straining on bowel movements and possibly adding a stool softener - Continue to monitor at this time Bright red blood per rectum - GI consulted, appreciate recommendations - Agree with conservative therapy at this time - H&H has been stable since admission - Hemodynamically stable - Stool guaiac negative in emergency room - Continue to monitor for further symptoms and follow up as outpatient with GI Weakness - PT/OT consulted, recommend SNF/ECF on discharge - SW consulted and [facility] through [facility] - Basline Cr around 1.3s - BUN/Cr of 40/1.97 today - Will continue to monitor and hold nephrotoxic agents - Fluids at 80 mL/hr DVT prophylaxis - SCDs given concern for GI bleed. <Chris Skelton - Last Filed: 07/21/17 18:43> Date of Encounter: 07/21/17 Pt admitted earlier today with syncope and weakness. SNF has been recommended Exam Comfortable Heart reg No wheeze Agree with assessment and plan as above.
[2017-07-22 06:55] LABS: BUN/Creatinine Ratio 18 (6-26); Blood Urea Nitrogen 24 mg/dL (8-23); Calcium 8.6 mg/dL (8.6-10.3); Carbon Dioxide 28 mEq/L (23-29); Chloride 103 mEq/L (98-107); Glucose 111 mg/dL (70-105); Osmolality,Calculated 283 (280-300); Potassium 4.1 mEq/L (3.5-5.1); Sodium 134 mEq/L (136-145); eGFR For African Americans > 60 (> 60); eGFR For Non-African Americans 54 (> 60)
[2017-07-22 07:28] LABS: Basophils # 0.1 K/mcL (0.0-0.2); Basophils % 0.8 %; Eosinophils # 0.4 K/mcL (0.0-0.6); Eosinophils % 5.8 %; Hematocrit 41.2 % (37.5-50.1); Immature Granulocytes % 0.8 % (0-4); Lymphocytes # 1.4 K/mcL (0.6-4.6); Lymphocytes % 21.8 %; Mean Corpuscular HGB Conc 31.6 g/dL (31.6-35.5); Mean Corpuscular Hemoglobin 27.8 pg (28.0-33.3); Mean Platelet Volume 9.9 fL (9.4-12.4); Monocytes % 15.7 %; Neutrophils # 3.5 K/mcL (1.6-8.9); Platelet Count 254 K/mcL (140-400); Red Blood Count 4.68 M/mcL (4.19-5.50); Red Cell Distribution Width 15.2 % (11.5-14.5); Segmented Neutrophils % 55.1 %
[2017-07-22] MEDS: Aspirin Enteric Coated 81 MG Tablet PO SCH (09:07)
[2017-07-22] MEDS: Insulin LISPRO 300 UNITS/3 ML VIAL SQ SCH ×3 (09:07→16:52)
[2017-07-22] MEDS: *HR* Amiodarone 200 MG TABLET PO SCH (09:07)
[2017-07-22] MEDS: 0.9 % Sodium Chloride 1,000 ML IVC SCH (09:08)
[2017-07-22] MEDS: *HR* HYDROcodone/Acet 5/325 mg TABLET PO PRN (09:57)
--- NOTE | 2017-07-22 10:02 | Electrocardiograph Report ---
[place] [id number] Test Date: 2017-07-20 Pat Name: Dakota Issa Department: 103 Room: 3A32 Gender: M Outreach Analyst: ART : 1950 Requested By: Asif Ames Order Number: [id number] Reading MD: iDlshad Flood DO Measurements Intervals [place] Rate: 62 P: 153 MO: 210 QRS: 57 QRSD: 95 T: 79 QT: 414 QTc: 418 Interpretive Statements ELECTRONIC ATRIAL PACEMAKER NONSPECIFIC T-WAVE ABNORMALITY Electronically Signed On 07-22-2017 10:00:38 EST by Dilshad Flood DO
--- NOTE | 2017-07-22 11:38 | Internal Med Progress Note ---
<Rosendo Toledo - Last Filed: 07/22/17 11:36> Date of Encounter: 07/22/17 Time of Encounter: 11:36 - Assessment and plan (1) Near syncope Current Visit: Yes Status: Acute Assessment and plan: - Patient describes likely vasovagal episodes following bowel movements. - Signs and symptoms likely pointing to vasovagal episode vs less likely cardiac etiology. - Patient asymptomatic at this time - Patient was counseled on not straining on bowel movements and possibly adding a stool softener - Most recent cardiac workup in july 2017. LHC and echo. Cardio recommends medical management and risk factor modification - Echo on 07/05/17 shows EF of 55% with mild diastolic dysfuncion. - Unlikely cardiac etiology. Plan - Continue to monitor at this time - Would benefit from rehab upon discharge. SW following. (2) Bright red rectal bleeding Current Visit: Yes Status: Acute Assessment and plan: -Pt notes a small amount of bright red blood during bowel movement. Unsure on the amount. - Admit to straining on some bowel movements. - Unsure of last colonoscopy but thinks it only showed some polyps. - GI consulted, appreciate recommendations - H&H has been stable since admission. Most recently 13.0/41.2, stable from previous with mild dilutional effect. - Hemodynamically stable - Stool guaiac negative in emergency room Plan - Agree with conservative therapy at this time - Continue to monitor for further symptoms and follow up as outpatient with GI - Will restart Xarelto this morning. (3) Atrial fibrillation Current Visit: Yes Status: Chronic Assessment and plan: - NSR on exam. - Hr in 60s. - CHADVASC 5 Plan - Continue home amiodarone - Has Anticoagulated on Xarelto at home which was held due to concern of GI bleed. - No signs of bleed, H/H stable. Will resume Xarelto. Qualifiers: Atrial fibrillation type: paroxysmal Qualified Code(s): I48.0 - Paroxysmal atrial fibrillation (4) Chronic pain Current Visit: Yes Status: Chronic Assessment and plan: - Pain well controlled at this time. He is requesting his home roxicodone instead of [place]. - Will change to home meds. Qualifiers: Chronic pain type: other chronic pain Qualified Code(s): G89.29 - Other chronic pain (5) Acute kidney injury Current Visit: Yes Status: Resolved Assessment and plan: - resolved. - BUN/Cr of 241.33 this AM. Improved from Cr of 1.9 yesterday - Baseline around 1.3 - Will continue to monitor and advance diet. Discontinue fluids. - Continue to monitor and avoid nephrotoxic agents. (6) CKD (chronic kidney disease) stage 3, GFR 30-59 ml/min Current Visit: Yes Status: Chronic Assessment and plan: - BUN/ Cr of 26/07.33, appears to be at baseline. Plan - Continue to monitor and avoid nephrotoxic agents. (7) Obesity (BMI 30.0-34.9) Current Visit: Yes Status: Chronic (8) Weakness Current Visit: Yes Status: Chronic Assessment and plan: - Pt complaints of chronic weakness for the previous weeks. - PT/OT evaluated yesterday and recommend SNF/ECF on discharge. - SW following for placement. Pt is from [place]. (9) DVT prophylaxis Current Visit: Yes Status: Acute Assessment and plan: Will resume Xarelto as he does not appear to have GI bleed. - Time Spent With Patient less than 15 minutes - Subjective Interval history: Patient was seen and examined this morning at bedside. He states that he is overall feeling a little worse from yesterday and when prompted why he says his room is small, he was cold last night, and he would like his diet advanced. He has no complaints of SOB, cough, further bleeding, no BM, dizziness. He does admit to some nausea last night but did not request medication for this. Currently asymptomatic. He states that PT/OT went well yesterday. - Constitutional Vitals: Temp Pulse Resp BP Pulse Ox 98.8 F 65 14 113/74 97 07/22/17 11:14 07/22/17 11:14 07/22/17 11:14 07/22/17 11:14 07/22/17 11:14 General appearance: Present: cooperative, A&O X 3, pleasant, no acute distress, answers questions appropriately Exam: Gen.: Vitals noted. No acute distress. AAOx3 HEENT: PERRL/EOMI, oropharynx clear, Normocephalic, atraumatic Cardiac: RRR, no murmur, +S1/S2 Pulmonary: CTA bilaterally, no wheezes, rales or rhonchi, equal chest expansion Abdomen: soft, nontender, BS noted, no guarding. Mildly distended. MSK: ROM intact, no joint swelling noted Extremities: no BLE edema, nontender calf, no cyanosis or clubbing Neuro: A&Ox3, moves all extremities, no focal deficits Psych: Appropriate mood and behavior Internal Medicine: Result - Labs CBC & Chem 7: 07/22/17 06:20 07/22/17 06:20 Labs: Short CBC 07/21/17 07/22/17 Range/Units 12:30 06:20 WBC 7.7 6.4 (4.3-11.1) K/mcL Hgb 15.7 13.0 D (12.9-16.9) g/dL Hct 48.1 41.2 (37.5-50.1) % Plt Count 283 254 (140-400) K/mcL Neutrophils # 5.0 3.5 (1.6-8.9) K/mcL BMP 07/22/17 06:20 Sodium 134 L Potassium 4.1 Chloride 103 Carbon Dioxide 28 BUN 24 H Creatinine 1.33 H Glucose 111 H Calcium 8.6 Consult Discharge Plan - Plan Referrals: Krish-Edda Banda DO [Primary Care Provider] - 08/10/17 3:30 pm <Chris Skelton - Last Filed: 07/22/17 18:57> Date of Encounter: 07/22/17 - Assessment and plan (1) Bright red rectal bleeding Current Visit: Yes Status: Acute (2) Near syncope Current Visit: Yes Status: Acute (3) Weakness Current Visit: Yes Status: Acute (4) Atrial fibrillation Current Visit: Yes Status: Chronic Qualifiers: Atrial fibrillation type: paroxysmal Qualified Code(s): I48.0 - Paroxysmal atrial fibrillation (5) CHF (congestive heart failure) Current Visit: Yes Status: Chronic Qualifiers: Congestive heart failure type: diastolic Congestive heart failure chronicity: chronic Qualified Code(s): I50.32 - Chronic diastolic (congestive ) heart failure - Constitutional Vitals: Temp Pulse Resp BP Pulse Ox 98.5 F 67 14 103/70 95 07/22/17 14:48 07/22/17 14:48 07/22/17 14:48 07/22/17 14:48 07/22/17 14:48 Internal Medicine: Result - Labs CBC & Chem 7: 07/22/17 06:20 07/22/17 06:20 - Attending Attestation I examined this patient and my medical decision-making was reviewed with the Resident Physician on 07/22/17. I agree with the documented findings, disposition and treatment plan as described except to the extent set forth below. Mr Issa has been admitted for weakness and concern for GI bleed. He remains moderate to high risk due to potential for worsening clinical status. Mr Issa feels OK. No further bleeding noted. No fever. Appetite OK Exam alert. Comfortable Mucus membranes dry Heart reg No wheeze abd soft I/P 1. Near syncope 2. hematochezia Further diagnoses and plan as above.
[2017-07-22] MEDS: *HR* OxyCODONE Immed Rel 5 MG TABLET PO PRN ×2 (12:31→20:27)
[2017-07-22] MEDS: Melatonin 3 MG TABLET PO SCH (20:23)
[2017-07-22] MEDS: *HR* LORazepam 0.5 MG TABLET PO PRN (21:49)
[2017-07-23 06:18] LABS: Basophils % 0.7 %; Eosinophils # 0.4 K/mcL (0.0-0.6); Eosinophils % 5.9 %; Hemoglobin 13.1 g/dL (12.9-16.9); Immature Granulocytes % 0.7 % (0-4); Lymphocytes # 1.3 K/mcL (0.6-4.6); Lymphocytes % 21.8 %; Mean Corpuscular Hemoglobin 28.2 pg (28.0-33.3); Mean Corpuscular Volume 88.2 fL (83.0-100.0); Mean Platelet Volume 9.5 fL (9.4-12.4); Monocytes # 0.8 K/mcL (0.0-1.3); Monocytes % 12.9 %; Neutrophils # 3.5 K/mcL (1.6-8.9); Nucleated Red Blood Cells 0.3 /100 WBC (0); Platelet Count 232 K/mcL (140-400); Red Blood Count 4.65 M/mcL (4.19-5.50); Red Cell Distribution Width 15.2 % (11.5-14.5)
[2017-07-23 06:33] LABS: BUN/Creatinine Ratio 14 (6-26); Blood Urea Nitrogen 16 mg/dL (8-23); Calcium 8.5 mg/dL (8.6-10.3); Carbon Dioxide 27 mEq/L (23-29); Chloride 105 mEq/L (98-107); Glucose 107 mg/dL (70-105); Osmolality,Calculated 284 (280-300); Sodium 136 mEq/L (136-145); eGFR For African Americans > 60 (> 60); eGFR For Non-African Americans > 60 (> 60)
[2017-07-23] MEDS: Aspirin Enteric Coated 81 MG Tablet PO SCH (08:14)
[2017-07-23] MEDS: *HR* Rivaroxaban 10 MG TABLET PO SCH (08:15)
[2017-07-23] MEDS: *HR* OxyCODONE Immed Rel 5 MG TABLET PO PRN ×2 (08:15→20:11)
[2017-07-23] MEDS: *HR* Amiodarone 200 MG TABLET PO SCH (08:15)
[2017-07-23] MEDS: Insulin LISPRO 300 UNITS/3 ML VIAL SQ SCH ×3 (08:16→17:21)
--- NOTE | 2017-07-23 09:52 | Internal Med Progress Note ---
<Rosendo Toledo - Last Filed: 07/23/17 09:50> Date of Encounter: 07/23/17 Time of Encounter: 09:50 - Assessment and plan (1) Near syncope Current Visit: Yes Status: Acute Assessment and plan: - Patient describes likely vasovagal episodes following bowel movements. - Signs and symptoms likely pointing to vasovagal episode vs less likely cardiac etiology. - Patient asymptomatic at this time - Patient was counseled on not straining on bowel movements and possibly adding a stool softener - Most recent cardiac workup in july 2017. LHC and echo. Cardio recommends medical management and risk factor modification - Echo on 07/05/17 shows EF of 55% with mild diastolic dysfuncion. - Unlikely cardiac etiology. Plan - Continue to monitor at this time - Would benefit from rehab upon discharge. SW following. - Pt/OT working with him (2) Bright red rectal bleeding Current Visit: Yes Status: Acute Assessment and plan: -Pt notes a small amount of bright red blood during bowel movement. Unsure on the amount. - Admit to straining on some bowel movements. - Unsure of last colonoscopy but thinks it only showed some polyps. - GI consulted, appreciate recommendations - H&H has been stable since admission. Most recently 13.1/41.0 stable from previous - Hemodynamically stable - Stool guaiac negative in emergency room Plan - Agree with conservative therapy at this time - Continue to monitor for further symptoms and follow up as outpatient with GI - Continue home xarelto for AFib (3) Atrial fibrillation Current Visit: Yes Status: Chronic Assessment and plan: - NSR on exam. - Hr wnl - CHADVASC 5 Plan - Continue home amiodarone - Has Anticoagulated on Xarelto at home which was held due to concern of GI bleed. - No signs of bleed, H/H stable. Will resume Xarelto. Qualifiers: Atrial fibrillation type: paroxysmal Qualified Code(s): I48.0 - Paroxysmal atrial fibrillation (4) Chronic pain Current Visit: Yes Status: Chronic Assessment and plan: - Pain well controlled at this time. He is requesting his home roxicodone - Will continue home meds Qualifiers: Chronic pain type: other chronic pain Qualified Code(s): G89.29 - Other chronic pain (5) Acute kidney injury Current Visit: Yes Status: Resolved Assessment and plan: - resolved. - BUN/Cr of 18/07.16 this AM. Improved from Cr of 1.33 yesterday - Baseline around 1.3 - Will continue to monitor and advance diet. Discontinue fluids. - Continue to monitor and avoid nephrotoxic agents. (6) Obesity (BMI 30.0-34.9) Current Visit: Yes Status: Chronic (7) CKD (chronic kidney disease) stage 3, GFR 30-59 ml/min Current Visit: Yes Status: Chronic Assessment and plan: - BUN/ Cr of 18/07.16, appears to be at baseline. Plan - Continue to monitor and avoid nephrotoxic agents. (8) Weakness Current Visit: Yes Status: Chronic Assessment and plan: - Pt complaints of chronic weakness for the previous weeks. - PT/OT evaluated yesterday and recommend SNF/ECF on discharge. - following for placement. Pt is from [place]. - Pending placement (9) DVT prophylaxis Current Visit: Yes Status: Acute Assessment and plan: Will resume Xarelto as he does not appear to have GI bleed. - Time Spent With Patient 25 - 35 minutes - Subjective Interval history: Patient was seen and examined this morning at bedside. He states that he is overall feeling about the same as yesterday. He has had no further bowel movements so he is unsure on any bleeding. Denies symptoms of chest pain, sob, vomiting but does admit to a small amount of nausea last night as well as dizziness that is intermittently present at rest but exacerbated with rising. He states PT yesterday went well without complications. He felt warm last night but admits it may have been the temperature of the room. There was concern about possible scabies yesterday and patient states that his arms have been itching for the previous 2 days since being here. Lives at home with who has had no symptoms. - Constitutional Vitals: Temp Pulse Resp BP Pulse Ox 97.9 F 83 14 106/72 94 07/23/17 07:43 07/23/17 07:43 07/23/17 07:43 07/23/17 07:43 07/23/17 07:43 General appearance: Present: cooperative, A&O X 3, pleasant, no acute distress, answers questions appropriately Exam: Gen.: Vitals noted. No acute distress. AAOx3 HEENT: PERRL/EOMI, oropharynx clear, Normocephalic, atraumatic Cardiac: RRR, no murmur, +S1/S2 Pulmonary: CTA bilaterally, no wheezes, rales or rhonchi, equal chest expansion Abdomen: soft, nontender, BS noted, no guarding MSK: ROM intact, no joint swelling noted Extremities: no BLE edema, nontender calf, no cyanosis or clubbing Skin: Dry skin with multiple pinpoint papules. No interdigit lesions or tunneling appreciated. Neuro: A&Ox3, moves all extremities, no focal deficits Psych: Appropriate mood and behavior Internal Medicine: Result - Labs CBC & Chem 7: 07/23/17 06:00 07/23/17 06:00 Labs: Short CBC 07/23/17 Range/Units 06:00 WBC 6.1 (4.3-11.1) K/mcL Hgb 13.1 (12.9-16.9) g/dL Hct 41.0 (37.5-50.1) % Plt Count 232 (140-400) K/mcL Neutrophils # 3.5 (1.6-8.9) K/mcL BMP 07/23/17 06:00 Sodium 136 Potassium 4.0 Chloride 105 Carbon Dioxide 27 BUN 16 Creatinine 1.16 Glucose 107 H Calcium 8.5 L Consult Discharge Plan - Plan Referrals: Krish-Edda Banda DO [Primary Care Provider] - 08/10/17 3:30 pm <Chris Skelton - Last Filed: 07/24/17 18:32> Date of Encounter: 07/23/17 - Assessment and plan (1) Bright red rectal bleeding Current Visit: Yes Status: Acute (2) Near syncope Current Visit: Yes Status: Acute (3) Weakness Current Visit: Yes Status: Acute (4) Atrial fibrillation Current Visit: Yes Status: Chronic Qualifiers: Atrial fibrillation type: paroxysmal Qualified Code(s): I48.0 - Paroxysmal atrial fibrillation (5) CHF (congestive heart failure) Current Visit: Yes Status: Chronic Qualifiers: Congestive heart failure type: diastolic Congestive heart failure chronicity: chronic Qualified Code(s): I50.32 - Chronic diastolic (congestive ) heart failure - Constitutional Vitals: Temp Pulse Resp BP Pulse Ox 97.8 F 66 16 107/70 94 07/24/17 15:01 07/24/17 15:01 07/24/17 15:01 07/24/17 15:01 07/24/17 15:01 Internal Medicine: Result - Labs CBC & Chem 7: 07/24/17 04:33 07/23/17 06:00 Labs: Short CBC 07/24/17 Range/Units 04:33 WBC 6.5 (4.3-11.1) K/mcL Hgb 13.6 (12.9-16.9) g/dL Hct 41.7 (37.5-50.1) % Plt Count 221 (140-400) K/mcL - Attending Attestation Please see event note of this date.
[2017-07-23] MEDS: Cetaphil Lotion 473 ML BOTTLE TP SCH (12:22)
--- NOTE | 2017-07-23 18:48 | Event Note ---
Date of Encounter: 07/23/17 Time of Encounter: 18:30 I examined this patient and my medical decision-making was reviewed with the Resident Physician on 07/23/17. I agree with the documented findings, disposition and treatment plan as described except to the extent set forth below. I am unable to sign note in [facility] at this time. Mr Issa is currently admitted for acute GI bleed and weakness. He remains moderate to high risk due to potential for worsening clinical status. Mr Issa has a rash on his arms. no fever. No new issues overnight. Exam alert. Comfortable Small areas on arms - not pustular Heart reg No wheeze I/P 1. Rash 2. Rectal bleeding Further diagnoses and plan as per progress note of today.
[2017-07-23] MEDS: Sennosides/Docusate Sodium TABLET PO SCH (20:11)
[2017-07-23] MEDS: Melatonin 3 MG TABLET PO SCH (21:17)
[2017-07-23] MEDS: *HR* LORazepam 0.5 MG TABLET PO PRN (21:17)
[2017-07-24 05:08] LABS: Hematocrit 41.7 % (37.5-50.1); Hemoglobin 13.6 g/dL (12.9-16.9); Mean Corpuscular HGB Conc 32.6 g/dL (31.6-35.5); Mean Corpuscular Hemoglobin 28.4 pg (28.0-33.3); Mean Corpuscular Volume 87.1 fL (83.0-100.0); Platelet Count 221 K/mcL (140-400); Red Blood Count 4.79 M/mcL (4.19-5.50); Red Cell Distribution Width 15.1 % (11.5-14.5)
[2017-07-24] MEDS: Insulin LISPRO 300 UNITS/3 ML VIAL SQ SCH ×3 (07:45→16:32)
[2017-07-24] MEDS: Aspirin Enteric Coated 81 MG Tablet PO SCH (07:46)
[2017-07-24] MEDS: Cetaphil Lotion 473 ML BOTTLE TP SCH (07:46)
[2017-07-24] MEDS: *HR* Amiodarone 200 MG TABLET PO SCH (07:46)
[2017-07-24] MEDS: *HR* Rivaroxaban 10 MG TABLET PO SCH (07:47)
[2017-07-24] MEDS: Sennosides/Docusate Sodium TABLET PO SCH ×2 (07:47→20:08)
[2017-07-24] MEDS: *HR* OxyCODONE Immed Rel 5 MG TABLET PO PRN ×2 (07:49→15:23)
--- NOTE | 2017-07-24 17:51 | Internal Med Progress Note ---
<Rosendo Toledo - Last Filed: 07/24/17 17:48> Date of Encounter: 07/24/17 Time of Encounter: 11:00 - Assessment and plan (1) Near syncope Current Visit: Yes Status: Acute Assessment and plan: - Patient describes likely vasovagal episodes following bowel movements. - Signs and symptoms likely pointing to vasovagal episode vs less likely cardiac etiology. - Patient asymptomatic at this time - Patient was counseled on not straining on bowel movements and possibly adding a stool softener - Most recent cardiac workup in july 2017. LHC and echo. Cardio recommends medical management and risk factor modification - Echo on 07/05/17 shows EF of 55% with mild diastolic dysfuncion. - Unlikely cardiac etiology. Plan - Continue to monitor at this time - Would benefit from rehab upon discharge. SW following. - Pt/OT working with him (2) Bright red rectal bleeding Current Visit: Yes Status: Acute Assessment and plan: -Pt notes a small amount of bright red blood during bowel movement. Unsure on the amount. - Admit to straining on some bowel movements. - Unsure of last colonoscopy but thinks it only showed some polyps. - GI consulted, appreciate recommendations - H&H has been stable since admission. Most recently 13.6/41.7 stable from previous - Hemodynamically stable - Stool guaiac negative in emergency room Plan - Agree with conservative therapy at this time - Continue to monitor for further symptoms and follow up as outpatient with GI - Continue home xarelto for AFib (3) Atrial fibrillation Current Visit: Yes Status: Chronic Assessment and plan: - NSR on exam. - Hr wnl - CHADVASC 5 Plan - Continue home amiodarone - Has Anticoagulated on Xarelto at home which was held due to concern of GI bleed. - No signs of bleed, H/H stable. Will resume Xarelto. Qualifiers: Atrial fibrillation type: paroxysmal Qualified Code(s): I48.0 - Paroxysmal atrial fibrillation (4) Chronic pain Current Visit: Yes Status: Chronic Assessment and plan: - Pain well controlled at this time. He is requesting his home roxicodone - Will continue home meds Qualifiers: Chronic pain type: other chronic pain Qualified Code(s): G89.29 - Other chronic pain (5) Acute kidney injury Current Visit: Yes Status: Resolved Assessment and plan: - resolved. - BUN/Cr of 18/07.16 most recently. Improved from Cr of 1.33 yesterday - Baseline around 1.3 - Will continue to monitor now that he is tolerating his diet - Continue to monitor and avoid nephrotoxic agents. (6) Obesity (BMI 30.0-34.9) Current Visit: Yes Status: Chronic (7) CKD (chronic kidney disease) stage 3, GFR 30-59 ml/min Current Visit: Yes Status: Chronic Assessment and plan: - BUN/ Cr of 18/07.16, appears to be at baseline. Plan - Continue to monitor and avoid nephrotoxic agents. (8) Weakness Current Visit: Yes Status: Chronic Assessment and plan: - Pt complaints of chronic weakness for the previous weeks. - PT/OT evaluated yesterday and recommend SNF/ECF on discharge. - following for placement. Pt is from [place]. - Pending placement (9) DVT prophylaxis Current Visit: Yes Status: Acute Assessment and plan: Will resume Xarelto as he does not appear to have GI bleed. - Time Spent With Patient less than 15 minutes - Subjective Interval history: Patient was seen and examined this morning at bedside. He states that he is overall feeling about the same as yesterday. Reports no further bowel movements , no symptoms of chest pain, shortness breath, dizziness, lightheadedness. He has been working with physical therapy without any complaints. He is agreeable to rehabilitation upon discharge. He has no complaints at this time other than nonproductive cough present at baseline. - Constitutional Vitals: Temp Pulse Resp BP Pulse Ox 97.8 F 66 16 107/70 94 07/24/17 15:01 07/24/17 15:01 07/24/17 15:01 07/24/17 15:01 07/24/17 15:01 General appearance: Present: cooperative, A&O X 3, pleasant, no acute distress, answers questions appropriately Exam: Gen.: Vitals noted. No acute distress. AAOx3 HEENT: PERRL/EOMI, oropharynx clear, Normocephalic, atraumatic Cardiac: RRR, no murmur, +S1/S2 Pulmonary: CTA bilaterally, no wheezes, rales or rhonchi, equal chest expansion Abdomen: soft, nontender, BS noted, no guarding. Moderately distended MSK: ROM intact, no joint swelling noted Extremities: no BLE edema, nontender calf, no cyanosis or clubbing Neuro: A&Ox3, moves all extremities, no focal deficits Psych: Appropriate mood and behavior Internal Medicine: Result - Labs CBC & Chem 7: 07/24/17 04:33 07/23/17 06:00 Labs: Short CBC 07/24/17 Range/Units 04:33 WBC 6.5 (4.3-11.1) K/mcL Hgb 13.6 (12.9-16.9) g/dL Hct 41.7 (37.5-50.1) % Plt Count 221 (140-400) K/mcL Consult Discharge Plan - Plan Referrals: Krish-Edda Banda DO [Primary Care Provider] - 08/10/17 3:30 pm <Chris Skelton - Last Filed: 07/24/17 19:29> Date of Encounter: 07/24/17 - Assessment and plan (1) Bright red rectal bleeding Current Visit: Yes Status: Acute (2) Near syncope Current Visit: Yes Status: Acute (3) Weakness Current Visit: Yes Status: Acute (4) Atrial fibrillation Current Visit: Yes Status: Chronic Qualifiers: Atrial fibrillation type: paroxysmal Qualified Code(s): I48.0 - Paroxysmal atrial fibrillation (5) CHF (congestive heart failure) Current Visit: Yes Status: Chronic Qualifiers: Congestive heart failure type: diastolic Congestive heart failure chronicity: chronic Qualified Code(s): I50.32 - Chronic diastolic (congestive ) heart failure - Constitutional Vitals: Temp Pulse Resp BP Pulse Ox 98.1 F 72 16 121/72 94 07/24/17 18:50 07/24/17 18:50 07/24/17 18:50 07/24/17 18:50 07/24/17 18:50 Internal Medicine: Result - Labs CBC & Chem 7: 07/24/17 04:33 07/23/17 06:00 Labs: Short CBC 07/24/17 Range/Units 04:33 WBC 6.5 (4.3-11.1) K/mcL Hgb 13.6 (12.9-16.9) g/dL Hct 41.7 (37.5-50.1) % Plt Count 221 (140-400) K/mcL - Attending Attestation I examined this patient and my medical decision-making was reviewed with the Resident Physician on 07/24/17. I agree with the documented findings, disposition and treatment plan as described except to the extent set forth below. Mr Issa is currently admitted for rectal bleed and weakness. He remains moderate risk at this time. He is [facility]. Mr Issa feels OK. No fever. No CP or SOB. No further bleeding noted. Exam Alert. Comfortable Mucus membranes dry Heart reg No wheeze I/P 1. Rectal bleed 2. Weakness Further diagnoses and plan as above.
[2017-07-24] MEDS: Melatonin 3 MG TABLET PO SCH (21:27)
[2017-07-24] MEDS: *HR* LORazepam 0.5 MG TABLET PO PRN (21:28)
[2017-07-25] MEDS: *HR* OxyCODONE Immed Rel 5 MG TABLET PO PRN ×4 (03:50→21:23)
[2017-07-25 05:22] LABS: Hematocrit 41.5 % (37.5-50.1); Hemoglobin 13.5 g/dL (12.9-16.9); Mean Corpuscular HGB Conc 32.5 g/dL (31.6-35.5); Mean Corpuscular Hemoglobin 28.4 pg (28.0-33.3); Mean Corpuscular Volume 87.4 fL (83.0-100.0); Mean Platelet Volume 9.9 fL (9.4-12.4); Platelet Count 213 K/mcL (140-400); Red Blood Count 4.75 M/mcL (4.19-5.50)
[2017-07-25 05:32] LABS: BUN/Creatinine Ratio 14 (6-26); Blood Urea Nitrogen 16 mg/dL (8-23); Calcium 8.7 mg/dL (8.6-10.3); Carbon Dioxide 25 mEq/L (23-29); Chloride 105 mEq/L (98-107); Glucose 102 mg/dL (70-105); Osmolality,Calculated 283 (280-300); Potassium 5.5 mEq/L (3.5-5.1); Sodium 136 mEq/L (136-145); eGFR For African Americans > 60 (> 60); eGFR For Non-African Americans > 60 (> 60)
[2017-07-25] MEDS: *HR* Amiodarone 200 MG TABLET PO SCH (07:36)
[2017-07-25] MEDS: Aspirin Enteric Coated 81 MG Tablet PO SCH (07:36)
[2017-07-25] MEDS: Insulin LISPRO 300 UNITS/3 ML VIAL SQ SCH ×3 (07:36→17:01)
[2017-07-25] MEDS: Cetaphil Lotion 473 ML BOTTLE TP SCH (07:36)
[2017-07-25] MEDS: *HR* Rivaroxaban 10 MG TABLET PO SCH (07:37)
[2017-07-25] MEDS: Sennosides/Docusate Sodium TABLET PO SCH ×2 (07:37→21:23)
--- NOTE | 2017-07-25 10:31 | Discharge Summary ---
<Rosendo Toledo - Last Filed: 07/25/17 10:29> Date of Encounter: 07/25/17 Time of Encounter: 10:29 - Discharge Diagnosis (1) Near syncope Priority: Primary Status: Acute (2) Bright red rectal bleeding Priority: Secondary Status: Resolved (3) Atrial fibrillation Priority: Secondary Status: Chronic Qualifiers: Atrial fibrillation type: paroxysmal Qualified Code(s): I48.0 - Paroxysmal atrial fibrillation (4) Chronic pain Priority: Secondary Status: Chronic Qualifiers: Chronic pain type: other chronic pain Qualified Code(s): G89.29 - Other chronic pain (5) Acute kidney injury Priority: Secondary Status: Resolved (6) Obesity (BMI 30.0-34.9) Priority: Secondary Status: Chronic (7) CKD (chronic kidney disease) stage 3, GFR 30-59 ml/min Priority: Secondary Status: Chronic (8) Weakness Priority: Secondary Status: Chronic (9) DVT prophylaxis Priority: Secondary Status: Acute - Discharge Medications Home Medications: Aspirin Enteric Coated [Aspirin EC] 81 mg PO DAILY #0 04/09/15 [History] Rivaroxaban [Xarelto] 20 mg PO DAILY #0 04/09/15 [History] Cholecalciferol (Vitamin D3) [Vitamin D3] 1,000 unit PO DAILY 03/12/16 [History] Albuterol Sulfate [Proair Hfa] 2 puff IH Q4H PRN 12/14/16 [History] Atorvastatin [Lipitor] 40 mg PO HS 12/14/16 [History] Gabapentin [Neurontin] 400 mg PO BID 12/14/16 [History] Pantoprazole Sodium [Protonix] 40 mg PO DAILY 12/14/16 [History] Polyethylene Glycol 3350 [MiraLAX Powder Bulk 17.9 Oz] 17 gm PO DAILY PRN [History] Sennosides/Docusate Sodium [Senna-Docusate Sodium Tablet] 1 tab PO BID PRN 12/14 [History] Spironolactone [Aldactone] 50 mg PO DAILY 12/14/16 [History] Tizanidine HCl [Zanaflex] 2 mg PO BID 12/14/16 [History] Potassium Chloride [Klor-Con Sprinkle] 20 meq PO BID 02/13/17 [History] DULoxetine [Cymbalta] 30 mg PO DAILY 02/14/17 [History] Tamsulosin [Flomax] 0.4 mg PO DAILY 02/14/17 [History] LORazepam [Ativan] 0.5 mg PO HS PRN #2 02/17/17 [Rx] Metoprolol [Lopressor] 25 mg PO BID 05/27/17 [History] OxyCODONE Immed Rel [Roxicodone 10 MG] 10 mg PO TID PRN 05/27/17 [History] Amiodarone [Cordarone] 200 mg PO DAILY 07/05/17 [History] Capsaicin [Arthritis Pain Relief] 1 appl TP BID PRN 07/05/17 [History] Finasteride [Proscar] 5 mg PO DAILY 07/05/17 [History] Furosemide [Lasix] 20 mg PO DAILY 07/05/17 [History] Insulin ASPART [Novolog Flexpen] 0 unit SQ AD PRN 07/05/17 [History] Lidocaine 4% CRM (LMX) [Lmx 4] 1 appl TP QID PRN 07/05/17 [History] Memantine HCl 10 mg PO BID 07/05/17 [History] Simethicone [Gas-X] 160 mg PO BID PRN 07/05/17 [History] Tiotropium Br/Olodaterol HCl [Stiolto Respimat Inhal [place]] 2 puff IH DAILY 11/17 [History] metOLazone [Zaroxolyn] 2.5 mg PO DAILY 07/20/17 [History] Cetaphil Lotion [Cetaphil] 1 appl TP DAILY bottle 07/25/17 [Rx] Allergies/Adverse Reactions: 3 Allergy/AdvReac Type Severity Reaction Status Date / Time IVP DYE Allergy Anaphylaxis Uncoded 07/05/17 13:07 Date of admission: 07/22/17 11:56 Primary care physician: Edda Rutherford Discharging clinician: Rosendo Toledo Anticipated date of discharge: 07/25/17 - Patient Status Disposition: Transfer SNF Condition: Fair Functional capacity at discharge: independent ambulation Overall status at discharge: patient is progressing back to baseline - Discharge Instructions Follow Up With: Krish-Edda Banda DO [Primary Care Provider] - 08/10/17 3:30 pm Additional Instructions: Please follow up with her primary care physician upon discharge. Take all medications as prescribed - Diet and Activity Activity: as per physical therapy, increase activity as tolerated, resume usual activities as tolerated Diet: diabetic diet Hospital course: Mr. Issa is a 67 year old male with past medical history of arthritis, atrial fibrillation on 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, CHF, COPD, CVA, GERD syncope presented to emergency room with a chief complaint of dizziness, weakness, bright red blood per rectum following a bowel movement. In the emergency department, vital signs unremarkable, lab results significant for BUN/creatinine of 38/1.99, sodium 133 was unremarkable including negative stool occult and normal H/H. Gastroenterology was consulted emergency department and agreed that due to stable vital signs and hemoglobin about a patient for inpatient scopes. Patient was monitored and admitted to hospital for further evaluation of vasovagal episode with possible GI bleed. Course of hospital stay, patient gradually improved and expressed no further symptoms. Labs were trended and remained stable, within normal limits. Kidney function returned to baseline levels. Patient has no complaints. States he was evaluated by physical therapy and occupational therapy for further goals of care. They recommended detention facility versus extended care facility for further rehabilitation. He is currently awaiting placement to [facility]. He is currently medically stable and Ready for discharge whenever placement is set up.Questions were answered - Time Spent with Patient Total time spent providing and/or coordinating discharge services: - Constitutional Vitals: Temp Pulse Resp BP Pulse Ox 97.8 F 62 18 107/72 97 07/25/17 07:05 07/25/17 07:05 07/25/17 07:05 07/25/17 07:05 07/25/17 08:30 General appearance: Present: cooperative, A&O X 3, pleasant, no acute distress, answers questions appropriately Exam: Gen.: Vitals noted. No acute distress. AAOx3 HEENT: PERRL/EOMI, oropharynx clear, Normocephalic, atraumatic. Cardiac: RRR, no murmur, +S1/S2 Pulmonary: CTA bilaterally, no wheezes, rales or rhonchi, equal chest expansion Abdomen: soft, nontender, BS noted, no guarding. Mildly distended MSK: ROM intact, no joint swelling noted Extremities: no BLE edema, nontender calf, no cyanosis or clubbing Neuro: A&Ox3, moves all extremities, no focal deficits Psych: Appropriate mood and behavior <Chris Skelton - Last Filed: 07/25/17 18:50> Date of Encounter: 07/25/17 - Discharge Diagnosis (1) Bright red rectal bleeding Priority: Primary Status: Resolved (2) Near syncope Status: Acute (3) Weakness Priority: Secondary Status: Acute (4) Atrial fibrillation Status: Chronic Qualifiers: Atrial fibrillation type: paroxysmal Qualified Code(s): I48.0 - Paroxysmal atrial fibrillation (5) CHF (congestive heart failure) Priority: Secondary Status: Chronic Qualifiers: Congestive heart failure type: diastolic Congestive heart failure chronicity: chronic Qualified Code(s): I50.32 - Chronic diastolic (congestive ) heart failure Date of admission: 07/22/17 11:56 Primary care physician: Edda Rutherford Hospital course: Mr. Issa is a 67 year old male - Time Spent with Patient Total time spent providing and/or coordinating discharge services: 38min - Constitutional Vitals: Temp Pulse Resp BP Pulse Ox 98.1 F 62 18 97/68 93 07/25/17 14:44 07/25/17 14:44 07/25/17 14:44 07/25/17 14:44 07/25/17 14:44 - Attending Attestation I examined this patient and my medical decision-making was reviewed with the Resident Physician on 07/25/17. I agree with the documented findings, disposition and treatment plan as described except to the extent set forth below. Mr Issa has been admitted for rectal bleeding and weakness. His H/H has remained stable. He is afebrile and ready for d/c to rehab. Exam alert. Comfortable Mucus membranes dry Heart reg No wheeze Plan D/C to rehab
--- NOTE | 2017-07-25 10:42 | Physician Discharge Referral ---
<Rosendo Toledo - Last Filed: 07/25/17 10:40> [facility] Referral Info Provider in Charge after Transfer: PCP Institutional Level of Care: Skilled - Diagnosis (1) Near syncope Priority: Secondary Status: Acute (2) Bright red rectal bleeding Priority: Secondary Status: Resolved (3) Atrial fibrillation Priority: Secondary Status: Chronic (4) Chronic pain Priority: Secondary Status: Chronic (5) Acute kidney injury Priority: Secondary Status: Resolved (6) Obesity (BMI 30.0-34.9) Priority: Secondary Status: Chronic (7) CKD (chronic kidney disease) stage 3, GFR 30-59 ml/min Priority: Secondary Status: Chronic (8) Weakness Priority: Primary Status: Chronic (9) DVT prophylaxis Priority: Secondary Status: Acute Prognosis: Fair Aware of Diagnosis: Patient Aware of Prognosis: Patient - Transfer Medications Home Medications: Aspirin Enteric Coated [Aspirin EC] 81 mg PO DAILY #0 04/09/15 [History] Rivaroxaban [Xarelto] 20 mg PO DAILY #0 04/09/15 [History] Cholecalciferol (Vitamin D3) [Vitamin D3] 1,000 unit PO DAILY 03/12/16 [History] Albuterol Sulfate [Proair Hfa] 2 puff IH Q4H PRN 12/14/16 [History] Atorvastatin [Lipitor] 40 mg PO HS 12/14/16 [History] Gabapentin [Neurontin] 400 mg PO BID 12/14/16 [History] Pantoprazole Sodium [Protonix] 40 mg PO DAILY 12/14/16 [History] Polyethylene Glycol 3350 [MiraLAX Powder Bulk 17.9 Oz] 17 gm PO DAILY PRN [History] Sennosides/Docusate Sodium [Senna-Docusate Sodium Tablet] 1 tab PO BID PRN 12/14 [History] Spironolactone [Aldactone] 50 mg PO DAILY 12/14/16 [History] Tizanidine HCl [Zanaflex] 2 mg PO BID 12/14/16 [History] Potassium Chloride [Klor-Con Sprinkle] 20 meq PO BID 02/13/17 [History] DULoxetine [Cymbalta] 30 mg PO DAILY 02/14/17 [History] Tamsulosin [Flomax] 0.4 mg PO DAILY 02/14/17 [History] LORazepam [Ativan] 0.5 mg PO HS PRN #2 02/17/17 [Rx] Metoprolol [Lopressor] 25 mg PO BID 05/27/17 [History] OxyCODONE Immed Rel [Roxicodone 10 MG] 10 mg PO TID PRN 05/27/17 [History] Amiodarone [Cordarone] 200 mg PO DAILY 07/05/17 [History] Capsaicin [Arthritis Pain Relief] 1 appl TP BID PRN 07/05/17 [History] Finasteride [Proscar] 5 mg PO DAILY 07/05/17 [History] Furosemide [Lasix] 20 mg PO DAILY 07/05/17 [History] Insulin ASPART [Novolog Flexpen] 0 unit SQ AD PRN 07/05/17 [History] Lidocaine 4% CRM (LMX) [Lmx 4] 1 appl TP QID PRN 07/05/17 [History] Memantine HCl 10 mg PO BID 07/05/17 [History] Simethicone [Gas-X] 160 mg PO BID PRN 07/05/17 [History] Tiotropium Br/Olodaterol HCl [Stiolto Respimat Inhal [place]] 2 puff IH DAILY 11/17 [History] metOLazone [Zaroxolyn] 2.5 mg PO DAILY 07/20/17 [History] Cetaphil Lotion [Cetaphil] 1 appl TP DAILY bottle 07/25/17 [Rx] Allergies/Adverse Reactions: 3 Allergy/AdvReac Type Severity Reaction Status Date / Time IVP DYE Allergy Anaphylaxis Uncoded 07/05/17 13:07 - Respiratory Orders Smoking Cessation: Smoking cessation has been advised. For more information, call the [place] Tobacco Quit Line at 1-653-NWXX-NOW. - Mobility Orders Ambulate - Rehabiliation Orders Rehab Potential: Fair Rehab Orders: Evaluation for Physical Therapy, Evaluation for Occupational Therapy - Diet Orders No Concentrated Sweets CERTIFICATION: I certify that the transfer of the above named patient to an Extended Care Facility is necessary for the continuing treatment of the diagnosis listed. The above information is true and accurate reflection of patient's current condition. Confidential - Redisclosure prohibited without a patient's written consent. <Chris Skelton - Last Filed: 07/25/17 12:22> - Diagnosis (1) Bright red rectal bleeding Status: Resolved (2) Near syncope Status: Acute (3) Weakness Status: Acute (4) Atrial fibrillation Status: Chronic (5) CHF (congestive heart failure) Status: Chronic - Respiratory Orders Smoking Cessation: Smoking cessation has been advised. For more information, call the [place] Tobacco Quit Line at 1-993-VSHH-NOW. - Lab Orders Lab Orders: 2 Step Mantoux Test per State regulation - Ancillary Orders May use pressure relief devices daily prn, May consult with Dentist, Director Of Cardiology Service Line, Information Assurance Engineer PRN - Advance Directives Code Status: Full Code CERTIFICATION: I certify that the transfer of the above named patient to an Extended Care Facility is necessary for the continuing treatment of the diagnosis listed. The above information is true and accurate reflection of patient's current condition. Confidential - Redisclosure prohibited without a patient's written consent.
[2017-07-25] MEDS: Melatonin 3 MG TABLET PO SCH (21:23)
[2017-07-25] MEDS: *HR* LORazepam 0.5 MG TABLET PO PRN (21:33)
[2017-07-26 07:23] VITALS: BP 97/65
[2017-07-26] MEDS: Insulin LISPRO 300 UNITS/3 ML VIAL SQ SCH (08:50)
[2017-07-26] MEDS: *HR* Amiodarone 200 MG TABLET PO SCH (09:02)
[2017-07-26] MEDS: *HR* Rivaroxaban 10 MG TABLET PO SCH (09:02)
[2017-07-26] MEDS: Aspirin Enteric Coated 81 MG Tablet PO SCH (09:03)
[2017-07-26] MEDS: Sennosides/Docusate Sodium TABLET PO SCH (09:03)
[2017-07-26] MEDS: Cetaphil Lotion 473 ML BOTTLE TP SCH (09:05)
[2017-07-26] MEDS: *HR* OxyCODONE Immed Rel 5 MG TABLET PO PRN (09:09)
--- NOTE | 2017-07-26 16:31 | Internal Med Progress Note ---
<Rosendo Toledo - Last Filed: 07/26/17 16:29> Date of Encounter: 07/26/17 Time of Encounter: 09:00 - Assessment and plan (1) Near syncope Status: Acute Assessment and plan: - Patient describes likely vasovagal episodes following bowel movements. - Signs and symptoms likely pointing to vasovagal episode vs less likely cardiac etiology. - Patient asymptomatic at this time - Patient was counseled on not straining on bowel movements and possibly adding a stool softener - Most recent cardiac workup in july 2017. LHC and echo. Cardio recommends medical management and risk factor modification - Echo on 07/05/17 shows EF of 55% with mild diastolic dysfuncion. - Unlikely cardiac etiology. Plan - Continue to monitor at this time - Would benefit from rehab upon discharge. SW following. - Pt/OT working with him (2) Bright red rectal bleeding Status: Resolved Assessment and plan: -Pt notes a small amount of bright red blood during bowel movement. Unsure on the amount. - Admit to straining on some bowel movements. - Unsure of last colonoscopy but thinks it only showed some polyps. - GI consulted, appreciate recommendations - H&H has been stable since admission. Most recently 13.5/41.5 stable from previous - Hemodynamically stable - Stool guaiac negative in emergency room Plan - Agree with conservative therapy at this time - Continue to monitor for further symptoms and follow up as outpatient with GI - Continue home xarelto for AFib (3) Atrial fibrillation Status: Chronic Assessment and plan: - NSR on exam. - Hr wnl - [facility]VASC 5 Plan - Continue home amiodarone - Has Anticoagulated on Xarelto at home which was held due to concern of GI bleed. - No signs of bleed, H/H stable. Will resume Xarelto. Qualifiers: Atrial fibrillation type: paroxysmal Qualified Code(s): I48.0 - Paroxysmal atrial fibrillation (4) Chronic pain Status: Chronic Assessment and plan: - Pain well controlled at this time. He is requesting his home roxicodone - Will continue home meds Qualifiers: Chronic pain type: other chronic pain Qualified Code(s): G89.29 - Other chronic pain (5) Acute kidney injury Status: Resolved Assessment and plan: - resolved. - BUN/Cr of 16/1.16 most recently. Improved from Cr of 1.33 yesterday - Baseline around 1.3 - Will continue to monitor now that he is tolerating his diet - Continue to monitor and avoid nephrotoxic agents. (6) Obesity (BMI 30.0-34.9) Status: Chronic (7) CKD (chronic kidney disease) stage 3, GFR 30-59 ml/min Status: Chronic Assessment and plan: - BUN/ Cr of 16/1.16, appears to be at baseline. Plan - Continue to monitor and avoid nephrotoxic agents. (8) Weakness Status: Chronic Assessment and plan: - Pt complaints of chronic weakness for the previous weeks. - PT/OT evaluated yesterday and recommend SNF/ECF on discharge. - following for placement. Pt is from [place]. - Pending placement (9) DVT prophylaxis Status: Acute Assessment and plan: Will resume Xarelto as he does not appear to have GI bleed. - Subjective Interval history: Patient was seen and examined this morning at bedside. He states that he is overall feeling about the same as yesterday. He was scheduled for discharge yesterday however was pending placement. Patient will be discharged today - Constitutional Vitals: Temp Pulse Resp BP Pulse Ox 97.7 F 61 18 97/65 96 07/26/17 07:22 07/26/17 07:22 07/26/17 07:22 07/26/17 07:22 07/26/17 08:13 General appearance: Present: cooperative, A&O X 3, pleasant, no acute distress, answers questions appropriately Exam: Gen.: Vitals noted. No acute distress. AAOx3 HEENT: PERRL/EOMI, oropharynx clear, Normocephalic, atraumatic, MMM Cardiac: RRR, no murmur, +S1/S2 Pulmonary: CTA bilaterally, no wheezes, rales or rhonchi, equal chest expansion Abdomen: distended, soft, nontender, BS noted, no guarding MSK: ROM intact, no joint swelling noted Extremities: no BLE edema, nontender calf, no cyanosis or clubbing Neuro: A&Ox3, moves all extremities, no focal deficits Psych: Appropriate mood and behavior Internal Medicine: Result - Labs CBC & Chem 7: 07/25/17 04:54 07/25/17 04:54 Consult Discharge Plan - Plan Additional Instructions: Please follow up with his primary care physician upon discharge. Take all medications as prescribed Referrals: Krish-Edda Banda DO [Primary Care Provider] - <Chris Skelton - Last Filed: 07/26/17 18:37> Date of Encounter: 07/26/17 - Assessment and plan (1) Near syncope Status: Acute (2) Weakness Status: Acute (3) Atrial fibrillation Status: Chronic Qualifiers: Atrial fibrillation type: paroxysmal Qualified Code(s): I48.0 - Paroxysmal atrial fibrillation (4) CHF (congestive heart failure) Status: Chronic Qualifiers: Congestive heart failure type: diastolic Congestive heart failure chronicity: chronic Qualified Code(s): I50.32 - Chronic diastolic (congestive ) heart failure - Constitutional Vitals: Temp Pulse Resp BP Pulse Ox 97.7 F 61 18 97/65 96 07/26/17 07:22 07/26/17 07:22 07/26/17 07:22 07/26/17 07:22 07/26/17 08:13 Internal Medicine: Result - Labs CBC & Chem 7: 07/25/17 04:54 07/25/17 04:54 - Attending Attestation I examined this patient and my medical decision-making was reviewed with the Resident Physician on 07/26/17. I agree with the documented findings, disposition and treatment plan as described except to the extent set forth below. Mr Issa is currently admitted for rectal bleeding. [facility] He remains moderate risk. Mr Issa feels OK. No fever. No CP or SOB. Exam Alert. Comfortable Mucus membranes dry Heart reg No wheeze [facility].
== END 2017-07-26 11:08 | DRG 378 ==
LOC: EMEROO 18:53 → 3ANU 18:53 → SUATTDRO 21:44 → 3ANU 22:07
PROVIDERS: ADMIT Internal Medicine; ATTEND Internal Medicine

== ENCOUNTER 2017-10-04 13:07 | Inpatient (IN) ==
[2017-10-04 14:27] LABS: Basophils % 0.5 %; Eosinophils # 0.4 K/mcL (0.0-0.6); Eosinophils % 4.9 %; Hematocrit 42.1 % (37.5-50.1); Hemoglobin 13.7 g/dL (12.9-16.9); Immature Granulocytes % 0.5 % (0-4); Lymphocytes # 0.8 K/mcL (0.6-4.6); Mean Corpuscular HGB Conc 32.5 g/dL (31.6-35.5); Mean Corpuscular Volume 89.2 fL (83.0-100.0); Mean Platelet Volume 9.5 fL (9.4-12.4); Monocytes # 0.8 K/mcL (0.0-1.3); Monocytes % 10.8 %; Neutrophils # 5.5 K/mcL (1.6-8.9); Platelet Count 245 K/mcL (140-400); Red Blood Count 4.72 M/mcL (4.19-5.50); Red Cell Distribution Width 16.4 % (11.5-14.5); Segmented Neutrophils % 73.3 %
[2017-10-04 14:41] LABS: Albumin 4.3 g/dL (3.5-5.7); Albumin/Globulin Ratio 1.6 (1.1-2.2); Bilirubin,Direct 0.1 mg/dL (0.0-0.2); Bilirubin,Indirect 0.3 mg/dL (0.0-1.2); Bilirubin,Total 0.4 mg/dL (0.3-1.0); Calcium 9.7 mg/dL (8.6-10.3); Globulin 2.7 g/dL (2.4-3.5); Potassium 4.1 mEq/L (3.5-5.1)
--- NOTE | 2017-10-04 17:48 | Emergency Department Note ---
Disposition Clinical Impression: AG (acute kidney injury) Abdominal pain Qualifiers: Abdominal location: left lower quadrant Qualified Code(s): R10.32 - Left lower quadrant pain Constipation Qualifiers: Constipation type: unspecified constipation type Qualified Code(s): K59.00 - Constipation, unspecified Disposition: Admitted As Inpatient Condition: Fair Time of Disposition: 18:23 Abdominal Pain HPI - General Chief Complaint: ED Abdominal Pain Stated Complaint: ABD PAIN Time Seen by Provider: 10/04/17 16:41 Source: patient Mode of arrival: ambulatory Limitations: no limitations Nursing Notes Reviewed: Yes Vital Signs Reviewed: Yes - History of Present Illness HPI Narrative: Patient is a 67-year-old male who presents to [facility] ED from the [place] inpatient rehabilitation. Patient had been inpatient there for a stroke from which she has some residual right sided weakness as well as difficulty seeing out of his right eye.. Apparently family was concerned about the increase in his diuretics and worsening renal function. He was also having worsening abdominal pain and family states they were not doing anything about it. So they decided to check him out and bring him here for evaluation. Patient denies any nausea, vomiting, fever or chills. Has been having left lower quadrant abdominal pain for the last week and a half. States he has had a prior inguinal hernia surgery there. No problems with urination and has had some hard stools. Denies any chest pain, difficulty breathing. Pt Subjective Complaint: abdominal pain Onset (ago): week(s) Consistency: Worsening Location: LLQ Pain Severity: moderate Pain Scale: 5 Quality: aching Radiation: none Migration to: no migration Improves with: nothing Worsens with: nothing Associated symptoms: Reports: constipation. Denies: nausea, vomiting, fever, chills Treatments prior to arrival: none - Related Data Home Medications Medication Instructions Recorded Confirmed Aspirin Enteric Coated [Aspirin EC] 81 mg PO DAILY #0 04/09/15 10/04/17 Rivaroxaban [Xarelto] 20 mg PO DAILY #0 04/09/15 10/04/17 Albuterol Sulfate [Proair Hfa] 2 puff IH Q4H PRN 12/14/16 10/04/17 Atorvastatin [Lipitor] 40 mg PO HS 12/14/16 10/04/17 Gabapentin [Neurontin] 400 mg PO BID 12/14/16 10/04/17 Pantoprazole Sodium [Protonix] 40 mg PO DAILY 12/14/16 10/04/17 Polyethylene Glycol 3350 [MiraLAX 17 gm PO DAILY PRN 12/14/16 10/04/17 Powder Bulk 17.9 Oz] Sennosides/Docusate Sodium 1 tab PO BID PRN 12/14/16 10/04/17 [Senna-Docusate Sodium Tablet] Tizanidine HCl [Zanaflex] 2 mg PO BID 12/14/16 10/04/17 DULoxetine [Cymbalta] 30 mg PO DAILY 02/14/17 10/04/17 Tamsulosin [Flomax] 0.4 mg PO BID 02/14/17 10/04/17 OxyCODONE Immed Rel [Roxicodone 10 10 mg PO QID PRN 05/27/17 10/04/17 MG] Amiodarone [Cordarone] 200 mg PO DAILY 07/05/17 10/04/17 Capsaicin [Arthritis Pain Relief] 1 appl TP BID PRN 07/05/17 10/04/17 Finasteride [Proscar] 5 mg PO DAILY 07/05/17 10/04/17 Furosemide [Lasix] 40 mg PO BID 07/05/17 10/04/17 Lidocaine 4% CRM (LMX) [Lmx 4] 1 appl TP TID 07/05/17 10/04/17 Memantine HCl 10 mg PO BID 07/05/17 10/04/17 Tiotropium Br/Olodaterol HCl 2 puff IH DAILY 07/07/17 10/04/17 [Stiolto Respimat Inhal [place]] metOLazone [Zaroxolyn] 2.5 mg PO BID 07/20/17 10/04/17 Cholecalciferol (D-3) [Vitamin D] 2,000 unit PO DAILY 10/04/17 10/04/17 Eucerin Creme 1 appl TP QID PRN 10/04/17 10/04/17 Fluticasone Propionate Nasal 100 mcg NS DAILY 10/04/17 10/04/17 [Flonase] Fluticasone/Salmeterol [Advair 1 each IH BID 10/04/17 10/04/17 250-50 Diskus] LORazepam [Ativan] 0.5 mg PO HS 10/04/17 10/04/17 Lubiprostone [Amitiza] 8 mcg PO BID 10/04/17 10/04/17 Melatonin [Melatin] 9 mg PO HS 10/04/17 10/04/17 Methotrexate [Otrexup] 10 mg PO TH 10/04/17 10/04/17 Metoprolol XL (24 HR) Succ [Toprol 12.5 mg PO QPM 10/04/17 10/04/17 XL] Spironolactone [Aldactone] 100 mg PO DAILY 10/04/17 10/04/17 Trazodone HCl 200 mg PO HS 10/04/17 10/04/17 Allergies Allergy/AdvReac Type Severity Reaction Status Date / Time IVP DYE Allergy Anaphylaxis Uncoded 10/04/17 13:23 All systems ED: reviewed and negative except as stated. Abdominal Pain PMH - Past Medical History Medical history: Reports: arthritis, atrial fibrillation, CHF, COPD, coronary artery disease, CVA, GERD, hyperlipidemia, hypertension, pulmonary embolus, syncope, venous stasis, other Male Surgical History: Reports: herniorrhaphy, orthopedic, other, pacemaker/AICD Psychiatric history: Reports: anxiety, depression - Social History Smoking status: Former smoker Alcohol use: Reports: none Drug use: Reports: none Physical Exam - General Limitations: no limitations General appearance: alert, in no apparent distress - Head Head exam: atraumatic, normocephalic, normal inspection - Eye Eye exam: Present: normal appearance, PERRL, EOMI - ENT ENT exam: normal exam, normal oropharynx, mucous membranes moist - Neck Neck exam: Present: normal inspection, full ROM, trachea midline - Chest Chest inspection: Present: normal inspection, symmetric chest wall rise - Respiratory Respiratory exam: Present: normal lung sounds bilaterally - Cardiovascular Cardiovascular exam: Present: regular rate, normal rhythm, normal heart sounds - Abdominal Exam Abdominal exam: Present: soft, tenderness. Absent: distention, guarding, rebound, rigidity Abdominal tenderness: Present: LLQ, mild - Extremities Exam Extremities exam: Present: normal inspection, full ROM. Absent: tenderness, pedal edema - Back Exam Back exam: Present: normal inspection, full ROM. Absent: tenderness - Neurological Exam Neurological exam: Present: alert, oriented X3. Absent: motor sensory deficit - Psychiatric Psychiatric exam: Present: normal affect, normal mood - Skin Skin exam: Present: warm, dry, intact, normal color Course Course Narrative: Patient seen and examined. Complaining of worsening renal failure. States they feel that patient was mismanaged at the [place] inpatient rehabilitation centers they brought him here for evaluation. They are concerned for the increased doses of diuretics that he has been getting. Lab work was ordered in triage which shows a creatinine of 2.16. Patient has been seen by Dr. Wynn in the past. CT of the abdomen and pelvis ordered to evaluate for his abdominal pain. - Reevaluation(s) Reevaluation #1: CT abdomen and pelvis unremarkable. We will admit for worsening AG I. I discussed with hospitalist Dr. Nova who has accepted patient for admission. Time: 18:20 Vital Signs Temperature 98.2 F 10/04/17 13:21 Pulse Rate 78 10/04/17 13:21 Respiratory Rate 18 10/04/17 13:21 Blood Pressure 107/71 10/04/17 13:21 O2 Sat by Pulse Oximetry 90 10/04/17 13:21 Temperature 98.2 F 10/04/17 18:32 Pulse Rate 78 10/04/17 13:21 Respiratory Rate 18 10/04/17 18:32 Blood Pressure 106/74 10/04/17 18:32 O2 Sat by Pulse Oximetry 90 10/04/17 13:21 Oxygen Delivery Oxygen Delivery Room Air Abdominal Pain - Medical Records Medical records reviewed: Yes I reviewed the patient's medical records. - Lab Data Lab results reviewed: Yes I reviewed the patient's lab results. Result diagrams: 10/04/17 14:00 10/04/17 14:00 Lab Results 10/04/17 10/04/17 10/04/17 Range/Units 14:00 14:00 17:27 WBC 7.5 (4.3-11.1) K/mcL RBC 4.72 (4.19-5.50) M/mcL Hgb 13.7 (12.9-16.9) g/dL Hct 42.1 (37.5-50.1) % MCV 89.2 (83.0-100.0) fL MCH 29.0 (28.0-33.3) pg MCHC 32.5 (31.6-35.5) g/dL RDW 16.4 H (11.5-14.5) % Plt Count 245 (140-400) K/mcL MPV 9.5 (9.4-12.4) fL Immature Gran % 0.5 (0-4) % Seg Neutrophils % 73.3 % Lymphocytes % 10.0 % Monocytes % 10.8 % Eosinophils % 4.9 % Basophils % 0.5 % Neutrophils # 5.5 (1.6-8.9) K/mcL Lymphocytes # 0.8 (0.6-4.6) K/mcL Monocytes # 0.8 (0.0-1.3) K/mcL Eosinophils # 0.4 (0.0-0.6) K/mcL Basophils # 0.0 (0.0-0.2) K/mcL Sodium 134 L (136-145) mEq/L Potassium 4.1 (3.5-5.1) mEq/L Chloride 96 L (98-107) mEq/L Carbon Dioxide 32 H (23-29) mEq/L BUN 47 H (8-23) mg/dL Creatinine 2.18 H (0.70-1.30) mg/dL Est GFR ( Amer) 37 L (> 60) Est GFR (Non-Af Amer) 30 L (> 60) BUN/Creatinine Ratio 22 (6-26) Glucose 136 H (70-105) mg/dL Calculated Osmolality 292 (280-300) Lactic Acid 1.7 (0.5-2.2) mmol/L Calcium 9.7 (8.6-10.3) mg/dL Total Bilirubin 0.4 (0.3-1.0) mg/dL Direct Bilirubin 0.1 (0.0-0.2) mg/dL Indirect Bilirubin 0.3 (0.0-1.2) mg/dL AST 22 (13-39) Units/L ALT 35 (7-52) Units/L Alkaline Phosphatase 93 (34-104) Units/L Serum Total Protein 7.0 (6.4-8.9) g/dL Albumin 4.3 (3.5-5.7) g/dL Globulin 2.7 (2.4-3.5) g/dL Albumin/Globulin Ratio 1.6 (1.1-2.2) Lipase 5 L (11-82) Units/L - Radiology Data Radiology results reviewed: Yes I reviewed the patient's radiology results. Abdomen/Pelvis CT 10/04/17 17:03 IMPRESSION: No acute abdominopelvic abnormality identified. Diverticulosis coli without evidence of diverticulitis. Possible sludge or stones within the gallbladder neck. Right middle lobe pulmonary micronodule. RECOMMENDATIONS: Fleischner Society guidelines for follow-up and management of pulmonary nodules: Nodule size less than or equal to 4 mm In a low-risk patient, no follow-up needed. In a high-risk patient, follow-up CT at 12 months; if unchanged, no further follow-up. Nodule size equals 4-6 mm In a low-risk patient, follow-up CT at 12 months; if unchanged, no further follow-up. In a high-risk patient, initial follow-up CT at 6-12 months then at 18-24 months if no change. Nodule size equals 6-8 mm In a low-risk patient, initial follow-up CT at 6-12 months then at 18-24 months if no change. In a high-risk patient, initial follow-up CT at 3-6 months then at 9-12 months and 24 months if no change. Nodule size greater than 8 mm In low-risk and high-risk patients follow-up CT at around 3, 9, and 24 months, dynamic contrast-enhanced CT, PET, and/or biopsy. Low risk patients include individuals with minimal or absent history of smoking and other known risk factors. High risk patients include individuals with a history of smoking or other known risk factors. Radiology 2005; [id number] D/ / Perez Bobo MD / Perez Bobo MD Interpreting Provider: Perez Bobo MD Attestation Statement - Attestation Attestation: I examined this patient and my medical decision-making was reviewed with the Resident Physician, Dr. Lawrence. I agree with the documented findings, disposition and treatment plan as described except to the extent set forth below. Patient is a 67-year-old white male who is brought to the emergency department today by family who left the [place] facility where he has been for the last 4-6 weeks for her stroke rehabilitation. Patient has numerous medical problems in the family was frustrated with his care and dismissed him from the facility and brought him directly here for concern for gradually worsening left lower quadrant abdominal pain, constipation, and worsening renal function. Patient has been having his Lasix gradually increased at the facility and this has resulted in a gradual increase in his serum creatinine. Patient has known Chronic kidney disease and was concerned about these changes and feels "they are not doing anything for him there". Patient denies any fevers or chills, no bowel changes other than the constipation no bright red blood per rectum or tarry black stools, no vomiting or hematemesis, no urinary symptoms or flank pain. I agree with patient's physical exam findings as documented. Vital signs are stable on arrival. He is in no acute distress. Underwent lab evaluation and CT imaging of his abdomen and pelvis. All of his testing is within normal limits with the exception of worsening serum creatinine from baseline as well as constipation on his CT. Patient will be admitted for IV hydration and medication adjustments as well as ongoing evaluation for his abdominal pain and bloating.
[2017-10-04] MEDS ORDERED: Acetaminophen 325 MG TABLET PO PRN (21:22)
[2017-10-04] MEDS ORDERED: Naloxone 0.4 MG/ML INJ IVP PRN (21:22)
[2017-10-04] MEDS ORDERED: Sennosides/Docusate Sodium TABLET PO PRN (21:23)
[2017-10-04] MEDS ORDERED: Polyethylene Glycol 3350 255 GM POWDER PO PRN (21:23)
[2017-10-04] MEDS ORDERED: Ipratropium/Albuterol Neb 3 ML IH PRN (21:26)
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
[2017-10-04] MEDS ORDERED: *HR* Dextrose 50 % in Water (Syg) 50 ML SYRINGE IVP PRN (22:01)
[2017-10-04] MEDS ORDERED: Dextrose Gel 15 GM/37.5 ML TUBE PO PRN ×2 (22:01)
[2017-10-04] MEDS ORDERED: D5% in Water 1,000 ML IVC PRN (22:01)
[2017-10-04] MEDS: *HR* OxyCODONE Immed Rel 5 MG TABLET PO PRN (22:12)
[2017-10-04] MEDS: *HR* LORazepam 0.5 MG TABLET PO SCH (22:55)
[2017-10-04] MEDS: Melatonin 3 MG TABLET PO SCH (22:55)
[2017-10-04] MEDS: traZODone 50 MG TABLET PO SCH (22:55)
[2017-10-05 06:21] LABS: Bilirubin,Urine Negative (Negative); Blood,Urine Negative (Negative); Clarity,Urine Clear (Clear); Color,Urine Yellow (Yellow); Glucose,Urine (UA) Normal (Normal); Ketones,Urine Negative (Negative); Leukocyte Esterase,Urine Trace (Negative); Nitrite,Urine Negative (Negative); Protein,Urine Negative (Neg-Trace); Specific Gravity,Urine 1.012 (1.010-1.025); Urobilinogen,Urine Normal (Normal)
[2017-10-05 06:23] LABS: Bacteria,Urine Few per hpf (None-Few); Hyaline Casts,Urine None Seen per lpf (None-Few); Squamous Epithelial Cell,Urine None Seen per lpf (None-Few); WBC,Urine 15-30 per hpf (0-3)
[2017-10-05 07:51] LABS: Basophils # 0.1 K/mcL (0.0-0.2); Basophils % 0.9 %; Eosinophils # 0.5 K/mcL (0.0-0.6); Eosinophils % 7.8 %; Hematocrit 43.5 % (37.5-50.1); Hemoglobin 13.9 g/dL (12.9-16.9); Immature Granulocytes % 0.4 % (0-4); Lymphocytes # 0.9 K/mcL (0.6-4.6); Mean Corpuscular Hemoglobin 29.4 pg (28.0-33.3); Mean Corpuscular Volume 92.2 fL (83.0-100.0); Mean Platelet Volume 10.1 fL (9.4-12.4); Monocytes # 0.9 K/mcL (0.0-1.3); Monocytes % 13.1 %; Neutrophils # 4.5 K/mcL (1.6-8.9); Nucleated Red Blood Cells 0.3 /100 WBC (0); Platelet Count 218 K/mcL (140-400); Red Blood Count 4.72 M/mcL (4.19-5.50); Segmented Neutrophils % 64.8 %
[2017-10-05] MEDS: Budesonide/Formoterol 80/4.5 MDI IH SCH ×2 (08:16→20:59)
[2017-10-05 09:06] LABS: Calcium 9.2 mg/dL (8.6-10.3); Magnesium 2.1 mg/dL (1.6-2.6); Potassium 4.1 mEq/L (3.5-5.1)
[2017-10-05] MEDS: *HR* Amiodarone 200 MG TABLET PO SCH (09:15)
[2017-10-05] MEDS: Aspirin Enteric Coated 81 MG Tablet PO SCH (09:16)
[2017-10-05] MEDS: *HR* Rivaroxaban 10 MG TABLET PO SCH (09:16)
[2017-10-05] MEDS: Finasteride 5 MG TABLET PO SCH (09:16)
[2017-10-05] MEDS: Fluticasone Propionate Nasal 50 MCG/SPRAY BOTTLE NS SCH (09:17)
[2017-10-05] MEDS: *HR* OxyCODONE Immed Rel 5 MG TABLET PO PRN ×3 (09:25→21:41)
[2017-10-05] MEDS: Insulin LISPRO 300 UNITS/3 ML VIAL SQ SCH ×4 (09:30→21:30)
[2017-10-05] MEDS: LUBIPROSTONE 8 MCG PO SCH ×2 (09:30→21:30)
[2017-10-05] MEDS: STIOLTO RESPIMAT IH SCH (09:30)
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
--- NOTE | 2017-10-05 15:14 | Internal Med Progress Note ---
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 (3) Anxiety Current Visit: Yes Status: Chronic Assessment and plan: continue trazadone, ativan (4) Depression Current Visit: Yes Status: Chronic Assessment and plan: continue cymbalta Qualifiers: Depression Type: major depressive disorder Major depression recurrence: recurrent Active/Remission status: in full remission Qualified Code(s): F33.42 - Major depressive disorder, recurrent, in full remission (5) CAD in [place] artery Current Visit: Yes Status: Chronic Assessment and plan: continue home medications (6) Pacemaker Current Visit: Yes Status: Chronic (7) Atrial fibrillation Current Visit: Yes Status: Chronic Assessment and plan: continue beta brisa for rate control and Xarelto for assisted 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 ; Qualifiers: Atrial fibrillation type: paroxysmal Qualified Code(s): I48.0 - Paroxysmal atrial fibrillation (8) COPD (chronic obstructive pulmonary disease) Current Visit: Yes Status: Chronic Assessment and plan: not in acute exacerbation, continue PRN breathing treatments along with ICS, supplemental O2 to maintain sats greater than 90% Qualifiers: COPD type: unspecified COPD Qualified Code(s): J44.9 - Chronic obstructive pulmonary disease, unspecified (9) Diabetes mellitus Current Visit: Yes Status: Chronic Assessment and plan: Accucheck blood glucose monitoring and sliding scale insulin as needed; diabetic diet; Qualifiers: Diabetes mellitus type: type 2 Diabetes mellitus assisted insulin use: without superintendent container terminal use Diabetes mellitus complication status: with kidney complications Diabetes mellitus complication detail: with chronic kidney disease Chronic kidney disease stage: stage 3 (moderate) Qualified Code(s): E11.22 - Type 2 diabetes mellitus with diabetic chronic kidney disease; N18.3 - Chronic kidney disease, stage 3 (moderate); N18.3 - Chronic kidney disease, stage 3 (moderate) (10) GERD (gastroesophageal reflux disease) Current Visit: Yes Status: Chronic Assessment and plan: continue home medications Qualifiers: Esophagitis presence: esophagitis presence not specified Qualified Code(s) : K21.9 - Gastro-esophageal reflux disease without esophagitis (11) HTN (hypertension) Current Visit: Yes Status: Chronic Assessment and plan: bp stable Qualifiers: Hypertension type: essential hypertension Qualified Code(s): I10 - Essential (primary) hypertension (12) HLD (hyperlipidemia) Current Visit: Yes Status: Chronic Assessment and plan: continue statin Qualifiers: Hyperlipidemia type: unspecified Qualified Code(s): E78.5 - Hyperlipidemia , unspecified (13) CHF (congestive heart failure) Current Visit: Yes Status: Chronic Assessment and plan: Elevated creatinine in the setting of diuretic use including metal ozone, Lasix and Aldactone. Mild hypotension. Started on methotrexate for arthritic pain at the [place] which is nephrotoxic Nephrology consult Ultrasound of kidney pending Urine for sodium, eosinophils, and proteins pending Avoid nephrotoxic agents Hold IV fluids. Hold current diuretics. Fluid restrictions to 1.5 L a day Daily weight Strict I's and O's. Qualifiers: Qualified Code(s): I50.32 - Chronic diastolic (congestive) heart failure (14) Obesity (BMI 30-39.9) Current Visit: Yes Status: Chronic Assessment and plan: Lifestyle modification (15) [id number] kidney injury Current Visit: Yes Status: Acute Assessment and plan: Baseline serum creatinine noted to be around 1.35, however noted to be fluctuating between 1.3 and 2.4 in the last few months. He also has had multiple episodes of acute kidney injury, related to diuretic use and has been seen by nephrology as inpatient in the past. Patient was currently noted to be on 3 diuretics including Lasix, spironolactone and thiazide diuretics. Hold all 3 and continue to monitor serum creatinine closely. Monitor urine output and blood pressure. Hold off on IV hydration at this time , he does not appear dehydrated. Nephrology following for further management, thanks for the help. Patient's family drove him to this emergency room from the [place] rehabilitation facility as they feel he was not being managed appropriately. Patient would like to be discharged back home from here. Qualifiers: Acute renal failure type: unspecified Chronic kidney disease stage: stage 3 (moderate) Qualified Code(s): N17.9 - Acute kidney failure, unspecified; N18.9 - Chronic kidney disease, unspecified; N18.9 - Chronic kidney disease, unspecified (16) Constipation Current Visit: Yes Status: Chronic Assessment and plan: continue PRN stool softeners and laxatives. CT abdomen/pelvis showed gallstones and gallbladder sludge, no other acute abnormalities. His abdominal pain could be due to constipation. Continue lactulose and miralax Qualifiers: Constipation type: slow transit constipation Qualified Code(s): K59.01 - Slow transit constipation (17) BPH (benign prostatic hyperplasia) Current Visit: Yes Status: Chronic Assessment and plan: continue Proscar and Flomax Qualifiers: Lower urinary tract symptom presence: unspecified whether lower urinary tract symptoms present Qualified Code(s): N40.0 - Benign prostatic hyperplasia without lower urinary tract symptoms (18) Cholelithiasis Current Visit: Yes Status: Acute Assessment and plan: General surgery consult Follow LFTs Bili currently within normal limits Qualifiers: Qualified Code(s): K80.20 - Calculus of gallbladder without cholecystitis without obstruction (19) Ambulatory dysfunction Current Visit: Yes Status: Acute Assessment and plan: pt/ot eval SS eval currently w/c bound - Time Spent With Patient Total time spent is greater than 50% in coordination of care (as documented) at patient's floor/unit and/or counseling patient: - Subjective Interval history: Patient is sitting up and is quite a conversationalist. He is having some diffuse abdominal pain, complaints of generalized edema. He also is having some issues with constipation. He states he is wheelchair bound and was recently at the [place] [facility]. He was discharged from there and was told to go somewhere [facility]". He denies fever, chills, shortness of breath, dizziness, headache or changes in urination. He is constipated which is a chronic problem and has some left sided abdominal pain as well as on the right side with palpation. Answered his questions and discussed the plan of care. His , son and himself have no questions at this time - Constitutional Vitals: Temp Pulse Resp BP Pulse Ox 98.2 F 67 14 106/70 91 10/05/17 11:14 10/05/17 11:14 10/05/17 11:14 10/05/17 11:14 10/05/17 11:14 General appearance: Present: cooperative, A&O X 3, obese, answers questions appropriately - Head Head exam: Present: atraumatic, normocephalic - Eye Eye exam: Present: PERRL, conjuntiva pink, sclera anicteric Pupils: Present: PERRL - Neck Neck exam general surgery: Present: supple, trachea midline. Absent: lymphadenopathy - Respiratory Respiratory exam: Present: decreased breath sounds, rales. Absent: accessory muscle use, respiratory distress, rhonchi, wheezes - Cardiovascular Cardiovascular exam: Present: RRR, +S1, +S2. Absent: diastolic murmur, gallop, rubs, systolic murmur - GI/Abdominal GI/Abdominal exam: Present: distended, firm, normal bowel sounds, tenderness, no peritoneal signs. Absent: guarding - Extremities Exam Extremities exam: Present: pedal edema, tenderness, warm, radial pulses palpable and symmetrical. Absent: calf tenderness, cyanotic Additional comments: Patient has edema from toes to the thighs as well as some flank edema. He also is tender to touch over his lower extremities which she states is secondary to his neuropathies. Some vascular skin changes and firm edema of both lower extremities with positive pulses - Neurological Exam Neurological exam: Present: abnormal gait, alert, CN II-XII intact, oriented X3 , no focal deficits. Absent: pronater drift, facial droop, speech deficit - Skin Skin exam: Present: dry, intact, normal color, warm Internal Medicine: Result - Labs CBC & Chem 7: 10/05/17 06:01 10/05/17 07:54 Labs: Short CBC 10/05/17 Range/Units 06:01 WBC 6.9 (4.3-11.1) K/mcL Hgb 13.9 (12.9-16.9) g/dL Hct 43.5 (37.5-50.1) % Plt Count 218 (140-400) K/mcL Neutrophils # 4.5 (1.6-8.9) K/mcL BMP 10/05/17 07:54 Sodium 135 L Potassium 4.1 Chloride 97 L Carbon Dioxide 29 BUN 45 H Creatinine 1.83 H Glucose 107 H Calcium 9.2 Urine 10/05/17 Range/Units 06:08 Urine Color Yellow (Yellow) Urine Clarity Clear (Clear) Urine pH 7.0 (5.0-8.0) pH Units Ur Specific [place] 1.012 (1.010-1.025) Urine Protein Negative (Neg-Trace) mg/dL Urine Glucose (UA) Normal (Normal) mg/dL Consult Discharge Plan - Plan Referrals: Krish-Edda Banda DO [Primary Care Provider] -
[2017-10-05] MEDS: Lactulose Oral Soln 20 GM/30 ML UDC PO SCH ×2 (15:26→21:29)
[2017-10-05] MEDS: Milk and Molasses Enema 200 ML RC SCH ×2 (15:30→21:21)
[2017-10-05 16:47] LABS: Creatinine,Urine 103 mg/dL; Microalbumin,Urine < 7 mg/L; Protein/Creatinine Ratio,Urine 0.06 mg/mg (0.00-0.20)
[2017-10-05] MEDS: Metoprolol XL (24 HR) Succ 25 MG TAB.ER.24H PO SCH (18:50)
[2017-10-05] MEDS ORDERED: traZODone 50 MG TABLET PO SCH (21:00)
[2017-10-05] MEDS ORDERED: Melatonin 3 MG TABLET PO SCH (21:00)
[2017-10-05] MEDS ORDERED: *HR* LORazepam 0.5 MG TABLET PO SCH (21:00)
[2017-10-05] MEDS: Melatonin 3 MG TABLET PO SCH (21:29)
[2017-10-05] MEDS: *HR* LORazepam 0.5 MG TABLET PO SCH (21:29)
[2017-10-05] MEDS: traZODone 50 MG TABLET PO SCH (21:29)
[2017-10-06] MEDS: Milk and Molasses Enema 200 ML RC SCH ×2 (02:46→07:42)
[2017-10-06 07:25] LABS: Hematocrit 41.6 % (37.5-50.1); Hemoglobin 13.5 g/dL (12.9-16.9); Mean Corpuscular HGB Conc 32.5 g/dL (31.6-35.5); Mean Corpuscular Volume 89.3 fL (83.0-100.0); Mean Platelet Volume 9.4 fL (9.4-12.4); Platelet Count 231 K/mcL (140-400); Red Blood Count 4.66 M/mcL (4.19-5.50); Red Cell Distribution Width 17.1 % (11.5-14.5)
[2017-10-06] MEDS: Budesonide/Formoterol 80/4.5 MDI IH SCH ×2 (07:26→19:58)
[2017-10-06] MEDS: Insulin LISPRO 300 UNITS/3 ML VIAL SQ SCH ×4 (07:37→21:42)
[2017-10-06 07:42] LABS: Albumin 3.8 g/dL (3.5-5.7); Albumin/Globulin Ratio 1.4 (1.1-2.2); Bilirubin,Total 0.4 mg/dL (0.3-1.0); Calcium 9.2 mg/dL (8.6-10.3); Globulin 2.7 g/dL (2.4-3.5); Potassium 4.2 mEq/L (3.5-5.1); Total Protein 6.5 g/dL (6.4-8.9)
[2017-10-06] MEDS: STIOLTO RESPIMAT IH SCH (07:43)
[2017-10-06] MEDS: LUBIPROSTONE 8 MCG PO SCH ×2 (07:43→20:22)
[2017-10-06] MEDS: Finasteride 5 MG TABLET PO SCH (07:47)
[2017-10-06] MEDS: Aspirin Enteric Coated 81 MG Tablet PO SCH (07:47)
[2017-10-06] MEDS: *HR* Amiodarone 200 MG TABLET PO SCH (07:47)
[2017-10-06] MEDS: *HR* Rivaroxaban 10 MG TABLET PO SCH (07:47)
[2017-10-06] MEDS: Lactulose Oral Soln 20 GM/30 ML UDC PO SCH ×2 (07:47→20:21)
[2017-10-06] MEDS: *HR* OxyCODONE Immed Rel 5 MG TABLET PO PRN ×2 (07:55→20:14)
[2017-10-06] MEDS: Fluticasone Propionate Nasal 50 MCG/SPRAY BOTTLE NS SCH (07:55)
--- NOTE | 2017-10-06 10:33 | General Surgery Progress Note ---
Date of Encounter: 10/06/17 Time of Encounter: 09:45 - Assessment and Plan (1) Cholelithiasis Current Visit: Yes Status: Acute CT of the abdomen and pelvis on 10/04/2017 showed possible sludge or stones within the gallbladder neck. Repeat labs show improving Cr from 2.18>>1.83>> 1.67. Sodium is 133. LFTs and biliruibin are normal. Patient is afebrile and appears in no acute distress. Patient's clinical presentation and history are not consistent with symptomatic cholelithiasis. Plan: no urgent surgical intervention indicated at this time. Will order right upper quadrant ultrasound to further evaluate gallbladder pain control and supportive care Will continue to monitor the patient closely Qualifiers: Qualified Code(s): K80.20 - Calculus of gallbladder without cholecystitis without obstruction (2) Abdominal pain Current Visit: Yes Status: Acute Abdominal pain most likely secondary to constipation versus fluid overload. Patient admits epigastric pain, bilateral flank pain, and left lower quadrant pain. Patient admits flatus but denies any bowel movements. Management per primary team. Qualifiers: Abdominal location: left lower quadrant Qualified Code(s): R10.32 - Left lower quadrant pain (3) Acute kidney injury Current Visit: Yes Status: Acute Labs show improving Cr from 2.18>>1.83>>1.67. Sodium is 133. LFTs and biliruibin are normal. Patient is afebrile. Patient has good urine output and denies any urinary symptoms. Nephrology has been consulted per primary team. Continue management per primary team. (4) Constipation Current Visit: Yes Status: Resolved CT of the abdomen showed there is mild to moderate stool throughout the colon. Patient's abdomen is mildly distended. Patient admits constipation. Patient admits flatus but denies any bowel movements Plan: Continue scheduled Miralax BID Continue Milk and Molasses Q6hr continue to monitor the patient closely. Qualifiers: Constipation type: unspecified constipation type Qualified Code(s): K59.00 - Constipation, unspecified Subjective Patient reports: no new complaints, still having pain (Patient states that he feels similar to yesterday and said he does not feel any better but not any worse.), tolerating liquids well (Patient states that he tolerates his liquid diet well without any nausea, vomiting, or any difficulty.), flatus, no bowel movement, afebrile Objective Vital Signs - Last 8 Hours Temp Pulse Resp BP Pulse Ox 10/06/17 07:26 16 92 10/06/17 07:21 98.1 F 64 14 105/69 91 10/06/17 04:42 98.1 F 63 14 97/67 91 Intake and Output 10/05/17 10/06/17 10/06/17 23:59 07:59 15:59 Output Total 1000 / 1000 700 / 700 Balance -1000 / -1000 -700 / -700 Output: Urine 1000 / 1000 700 / 700 Other: Weight 127.1 kg Blood Glucose* 150 128 Patient Weight 10/06/17 23:59 Weight 127.1 kg - General physical appearance well developed, no distress, obese - Eyes PERRL, normal ocular movement - ENT normal mucosa - Neck Neck exam: trachea midline - Respiratory normal expansion, normal respiratory effort, other (Diminished breath sounds in the bilateral bases) - Cardiovascular Cardiovascular exam: Present: RRR, no murmurs/rubs/gallops - Abdomen Abdomen: Present: bowel sounds present, soft, distended, tender (Patient had tenderness to palpation diffusely especially in the left lower quadrant. Positive right and left CVA tenderness. No tenderness at the McBurney's point. Negative Rovsing's sign.) Abdominal Tenderness: LLQ, diffusely - Integumentary no rash - Neurologic CN 2-12 grossly intact - Musculoskeletal other (Bilateral lower extremities with trace pitting edema. +1 bilateral pedal edema) - Labs 10/06/17 06:39 10/06/17 06:39 Diabetes panel 10/06/17 Range/Units 06:39 Sodium 133 L (136-145) mEq/L Potassium 4.2 (3.5-5.1) mEq/L Chloride 97 L (98-107) mEq/L Carbon Dioxide 28 (23-29) mEq/L BUN 34 H (8-23) mg/dL Creatinine 1.67 H (0.70-1.30) mg/dL Glucose 108 H (70-105) mg/dL Calcium 9.2 (8.6-10.3) mg/dL AST 20 (13-39) Units/L ALT 30 (7-52) Units/L Alkaline Phosphatase 87 (34-104) Units/L Albumin 3.8 (3.5-5.7) g/dL Calcium panel 10/06/17 Range/Units 06:39 Calcium 9.2 (8.6-10.3) mg/dL Albumin 3.8 (3.5-5.7) g/dL Pituitary panel 10/06/17 Range/Units 06:39 Sodium 133 L (136-145) mEq/L Potassium 4.2 (3.5-5.1) mEq/L Chloride 97 L (98-107) mEq/L Carbon Dioxide 28 (23-29) mEq/L BUN 34 H (8-23) mg/dL Creatinine 1.67 H (0.70-1.30) mg/dL Glucose 108 H (70-105) mg/dL Calcium 9.2 (8.6-10.3) mg/dL Adrenal panel 10/06/17 Range/Units 06:39 Sodium 133 L (136-145) mEq/L Potassium 4.2 (3.5-5.1) mEq/L Chloride 97 L (98-107) mEq/L Carbon Dioxide 28 (23-29) mEq/L BUN 34 H (8-23) mg/dL Creatinine 1.67 H (0.70-1.30) mg/dL Glucose 108 H (70-105) mg/dL Calcium 9.2 (8.6-10.3) mg/dL Total Bilirubin 0.4 (0.3-1.0) mg/dL AST 20 (13-39) Units/L ALT 30 (7-52) Units/L Alkaline Phosphatase 87 (34-104) Units/L Albumin 3.8 (3.5-5.7) g/dL Consult Discharge Plan - Plan Referrals: Krish-Edda Banda DO [Primary Care Provider] -
[2017-10-06] MEDS: Metoprolol XL (24 HR) Succ 25 MG TAB.ER.24H PO SCH (17:39)
--- NOTE | 2017-10-06 17:40 | Internal Med Progress Note ---
Date of Encounter: 10/06/17 Time of Encounter: 17:38 - Assessment and plan (1) Chronic respiratory failure with hypoxia Current Visit: Yes Status: Chronic Assessment and plan: COPD and chronic CHF, on chronic 02 use O2 to maintain sats greater than 90% (2) Cerebrovascular accident Current Visit: Yes Status: Chronic Assessment and plan: previous CVA, no new deficits, supportive care, continue ASA and statin; Qualifiers: CVA mechanism: embolism Precerebral and cerebral artery: unspecified cerebral artery Qualified Code(s): I63.40 - Cerebral infarction due to embolism of unspecified cerebral artery (3) Anxiety Current Visit: Yes Status: Chronic Assessment and plan: continue trazadone and ativan (4) Depression Current Visit: Yes Status: Chronic Assessment and plan: continue cymbalta home dose Qualifiers: Depression Type: major depressive disorder Major depression recurrence: recurrent Active/Remission status: in full remission Qualified Code(s): F33.42 - Major depressive disorder, recurrent, in full remission (5) CAD in [place] artery Current Visit: Yes Status: Chronic Assessment and plan: continue home meds (6) Pacemaker Current Visit: Yes Status: Chronic (7) Atrial fibrillation Current Visit: Yes Status: Chronic Assessment and plan: continue beta brisa and Xarelto for 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; Qualifiers: Atrial fibrillation type: paroxysmal Qualified Code(s): I48.0 - Paroxysmal atrial fibrillation (8) COPD (chronic obstructive pulmonary disease) Current Visit: Yes Status: Chronic Assessment and plan: no acute exacerbation, continue PRN breathing treatments along with ICS, supplemental O2 to maintain sats greater than 90% Qualifiers: COPD type: unspecified COPD Qualified Code(s): J44.9 - Chronic obstructive pulmonary disease, unspecified (9) Diabetes mellitus Current Visit: Yes Status: Chronic Assessment and plan: Accucheck blood glucose monitoring, sliding scale insulin as needed; diabetic diet; Qualifiers: Diabetes mellitus type: type 2 Diabetes mellitus 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 insulin use: without longterm use Diabetes mellitus complication status: with kidney complications Diabetes mellitus complication detail: with chronic kidney disease Chronic kidney disease stage: stage 3 (moderate) Qualified Code(s): E11.22 - Type 2 diabetes mellitus with diabetic chronic kidney disease; N18.3 - Chronic kidney disease, stage 3 (moderate); N18.3 - Chronic kidney disease, stage 3 (moderate) (10) GERD (gastroesophageal reflux disease) Current Visit: Yes Status: Chronic Assessment and plan: continue home med Qualifiers: Esophagitis presence: esophagitis presence not specified Qualified Code(s) : K21.9 - Gastro-esophageal reflux disease without esophagitis (11) HTN (hypertension) Current Visit: Yes Status: Chronic Assessment and plan: blood pressure stable Qualifiers: Hypertension type: essential hypertension Qualified Code(s): I10 - Essential (primary) hypertension (12) HLD (hyperlipidemia) Current Visit: Yes Status: Chronic Assessment and plan: Continue statin Qualifiers: Hyperlipidemia type: unspecified Qualified Code(s): E78.5 - Hyperlipidemia , unspecified (13) CHF (congestive heart failure) Current Visit: Yes Status: Chronic Assessment and plan: Elevated creatinine in the setting of diuretic use including Lasix and Aldactone. Mild hypotension. Started on methotrexate for arthritic pain at the [place] which is nephrotoxic Nephrology consult and following Ultrasound of kidney with impression of echogenic left kidney which could reflect medical renal disease. Patient unable to void for the exam so correlate for bladder outlet obstruction. Urine for sodium, eosinophils, and proteins reviewed Avoid nephrotoxic agents Hold IV fluids. Hold current diuretics. Fluid restrictions to 1.5 L a day Daily weight Strict I's and O's. Qualifiers: Qualified Code(s): I50.32 - Chronic diastolic (congestive) heart failure (14) Obesity (BMI 30-39.9) Current Visit: Yes Status: Chronic Assessment and plan: Lifestyle modifications (15) [id number] kidney injury Current Visit: Yes Status: Acute Assessment and plan: Baseline serum creatinine noted to be about 1.35, however noted to be fluctuating between 1.3 and 2.4 in the last few months. He also has had multiple episodes of acute kidney injury, related to diuretic use and has been seen by nephrology as inpatient in the past. Patient was currently noted to be on 3 diuretics including Lasix, spironolactone and thiazide diuretics. Hold all 3 and continue to monitor serum creatinine closely. Monitor urine output and blood pressure. Hold off on IV hydration at this time , he does not appear dehydrated. Nephrology following for further management, thanks for the help. Patient's family drove him to this emergency room from the [place] rehabilitation facility as they feel he was not being managed appropriately. Patient would like to be discharged back home from here. Qualifiers: Acute renal failure type: unspecified Chronic kidney disease stage: stage 3 (moderate) Qualified Code(s): N17.9 - Acute kidney failure, unspecified; N18.9 - Chronic kidney disease, unspecified; N18.9 - Chronic kidney disease, unspecified (16) Constipation Current Visit: Yes Status: Resolved Assessment and plan: PRN stool softeners and laxatives effective with addition of lactulose and MiraLAX. CT abdomen/pelvis showed gallstones and gallbladder sludge, no other acute abnormalities. His abdominal pain could be due to constipation. Qualifiers: Constipation type: slow transit constipation Qualified Code(s): K59.01 - Slow transit constipation (17) BPH (benign prostatic hyperplasia) Current Visit: Yes Status: Chronic Assessment and plan: cont Proscar and Flomax Qualifiers: Lower urinary tract symptom presence: unspecified whether lower urinary tract symptoms present Qualified Code(s): N40.0 - Benign prostatic hyperplasia without lower urinary tract symptoms (18) Cholelithiasis Current Visit: Yes Status: Acute Assessment and plan: General surgery consult with plan of no urgent surgical intervention indicated this time. Right upper quadrant ultrasound to further evaluate gallbladder has been ordered. Suggest pain control and supportive care and they will monitor the patient closely. LFTs are normal. Bili currently within normal limits Qualifiers: Qualified Code(s): K80.20 - Calculus of gallbladder without cholecystitis without obstruction (19) Ambulatory dysfunction Current Visit: Yes Status: Acute - Time Spent With Patient Total time spent is greater than 50% in coordination of care (as documented) at patient's floor/unit and/or counseling patient: - Subjective Interval history: Patient is sitting up in the bed eating breakfast. He still complain of some right upper quadrant abdominal pain and constipation. Denies any shortness of breath, chest pain fevers, chills, headache, dizziness - Constitutional Vitals: Temp Pulse Resp BP Pulse Ox 97.9 F 74 14 118/76 90 10/06/17 15:20 10/06/17 15:20 10/06/17 15:20 10/06/17 15:20 10/06/17 15:20 General appearance: Present: cooperative, A&O X 3, obese, answers questions appropriately - Head Head exam: Present: atraumatic, normocephalic - Eye Eye exam: Present: PERRL, conjuntiva pink, sclera anicteric Pupils: Present: PERRL - Neck Neck exam general surgery: Present: supple, trachea midline. Absent: lymphadenopathy - Respiratory Respiratory exam: Present: CTAB. Absent: accessory muscle use, rales, rhonchi, wheezes - Cardiovascular Cardiovascular exam: Present: RRR, +S1, +S2. Absent: diastolic murmur, gallop, rubs, systolic murmur - GI/Abdominal GI/Abdominal exam: Present: distended, firm, normal bowel sounds, tenderness, no peritoneal signs - Extremities Exam Extremities exam: Present: pedal edema, warm, radial pulses palpable and symmetrical. Absent: calf tenderness, cyanotic - Neurological Exam Neurological exam: Present: alert, CN II-XII intact, oriented X3, no focal deficits. Absent: pronater drift, facial droop, speech deficit - Skin Skin exam: Present: dry, intact, normal color, warm Internal Medicine: Result - Labs CBC & Chem 7: 10/06/17 06:39 10/06/17 06:39 Labs: Short CBC 10/06/17 Range/Units 06:39 WBC 7.3 (4.3-11.1) K/mcL Hgb 13.5 (12.9-16.9) g/dL Hct 41.6 (37.5-50.1) % Plt Count 231 (140-400) K/mcL BMP 10/06/17 06:39 Sodium 133 L Potassium 4.2 Chloride 97 L Carbon Dioxide 28 BUN 34 H Creatinine 1.67 H Glucose 108 H Calcium 9.2 Liver Function 10/06/17 Range/Units 06:39 Total Bilirubin 0.4 (0.3-1.0) mg/dL AST 20 (13-39) Units/L ALT 30 (7-52) Units/L Alkaline Phosphatase 87 (34-104) Units/L Albumin 3.8 (3.5-5.7) g/dL - Impressions Impressions Retroperitoneum Ultrasound 10/05/17 18:00 IMPRESSION: Echogenic left kidney which could reflect medical renal disease. Patient unable to void for the exam. Correlate for bladder outlet obstruction. D/ / Perez Bobo MD / Perez Bobo MD Interpreting Provider: Perez Bobo MD Consult Discharge Plan - Plan Referrals: Krish-Edda Banda DO [Primary Care Provider] -
[2017-10-06] MEDS: traZODone 50 MG TABLET PO SCH (21:41)
[2017-10-06] MEDS: Melatonin 3 MG TABLET PO SCH (21:41)
[2017-10-06] MEDS: *HR* LORazepam 0.5 MG TABLET PO SCH (21:41)
[2017-10-07] MEDS: *HR* OxyCODONE Immed Rel 5 MG TABLET PO PRN ×2 (02:46→21:55)
[2017-10-07 05:39] LABS: Hematocrit 42.4 % (37.5-50.1); Hemoglobin 13.7 g/dL (12.9-16.9); Mean Corpuscular HGB Conc 32.3 g/dL (31.6-35.5); Mean Corpuscular Hemoglobin 29.1 pg (28.0-33.3); Mean Corpuscular Volume 90.2 fL (83.0-100.0); Mean Platelet Volume 9.4 fL (9.4-12.4); Platelet Count 255 K/mcL (140-400); Red Cell Distribution Width 16.9 % (11.5-14.5)
[2017-10-07 05:58] LABS: Calcium 9.1 mg/dL (8.6-10.3); Potassium 3.9 mEq/L (3.5-5.1)
[2017-10-07] MEDS: Lactulose Oral Soln 20 GM/30 ML UDC PO SCH (08:06)
[2017-10-07] MEDS: Aspirin Enteric Coated 81 MG Tablet PO SCH (08:08)
[2017-10-07] MEDS: *HR* Rivaroxaban 10 MG TABLET PO SCH (08:08)
[2017-10-07] MEDS: Finasteride 5 MG TABLET PO SCH (08:08)
[2017-10-07] MEDS: *HR* Amiodarone 200 MG TABLET PO SCH (08:08)
[2017-10-07] MEDS ORDERED: Lactulose Oral Soln 20 GM/30 ML UDC PO PRN (09:52)
[2017-10-07] MEDS: Insulin LISPRO 300 UNITS/3 ML VIAL SQ SCH ×4 (10:14→21:37)
[2017-10-07] MEDS: STIOLTO RESPIMAT IH SCH (10:15)
[2017-10-07] MEDS: LUBIPROSTONE 8 MCG PO SCH ×2 (10:15→21:37)
--- NOTE | 2017-10-07 10:45 | Nephrology Progress Note ---
Date of Encounter: 10/07/17 Time of Encounter: 10:44 - Assessment and Plan (1) Rqxvf-wq-dlooknx kidney injury Current Visit: Yes Status: Acute Renal function improving. Avoid nephrotoxins. Adjust medications for renal function. Qualifiers: Acute renal failure type: unspecified Chronic kidney disease stage: stage 3 (moderate) Qualified Code(s): N17.9 - Acute kidney failure, unspecified; N18.3 - Chronic kidney disease, stage 3 (moderate); N18.3 - Chronic kidney disease, stage 3 (moderate) Subjective Principal diagnosis: AG Interval history: Patient seen. No new complaint. He doesn't feel better or worse than upon admission. Objective - Vital Signs Vital signs: Vital Signs Temp Pulse Resp BP Pulse Ox 10/07/17 06:00 97.9 F 69 16 101/66 91 10/07/17 02:34 98.9 F 68 16 114/77 96 10/06/17 22:35 98.5 F 69 16 103/64 93 10/06/17 19:58 16 94 10/06/17 18:30 98.7 F 69 16 108/73 93 10/06/17 15:20 97.9 F 74 14 118/76 90 10/06/17 12:01 97.9 F 68 14 97/64 91 Intake and Output 10/06/17 10/07/17 10/07/17 23:59 07:59 15:59 Output Total 675 / 675 Balance -675 / -675 Output: Urine 675 / 675 Other: # Bowel Movements 1 Weight 125.4 kg Blood Glucose* 148 100 Patient Weight 10/07/17 23:59 Weight 125.4 kg - General Appearance General appearance: Present: well-developed, well-nourished EENT: Present: ATNC Cardiology: Present: edema, regular rate Neurologic: Present: alert and oriented x3 Psychiatric: Present: mood/affect appropriate - Lab 10/07/17 04:53 10/07/17 04:53 Most recent lab results Calcium 9.1 mg/dL (8.6-10.3) 10/07/17 04:53 Magnesium 2.1 mg/dL (1.6-2.6) 10/05/17 07:54 Urine Creatinine 103 mg/dL 10/05/17 16:00 Urine Sodium 58.2 mEq/L 10/05/17 16:00 Urine Total Protein 6 mg/dL (1-14) 10/05/17 16:00 Consult Discharge Plan - Plan Referrals: Krish-Edad Banda DO [Primary Care Provider] -
[2017-10-07] MEDS: Budesonide/Formoterol 80/4.5 MDI IH SCH ×2 (11:18→22:20)
--- NOTE | 2017-10-07 12:15 | General Surgery Progress Note ---
Date of Encounter: 10/07/17 Time of Encounter: 10:25 - Assessment and Plan (1) Abdominal pain Current Visit: Yes Status: Acute This patient has a thickened gallbladder wall and what appears to be sludge and stones within the gallbladder lumen. There is not an official radiology report. However have reviewed the studies. He has very diffuse non-discreet type symptoms. Once he is medically ready that I think it is reasonable to perform a cholecystectomy. Qualifiers: Abdominal location: left lower quadrant Qualified Code(s): R10.32 - Left lower quadrant pain Subjective Patient reports: no new complaints, pain is less Objective Vital Signs - Last 8 Hours Temp Pulse Resp BP Pulse Ox 10/07/17 10:00 98.0 F 74 16 115/77 93 10/07/17 06:00 97.9 F 69 16 101/66 91 Intake and Output 10/06/17 10/07/17 10/07/17 23:59 07:59 15:59 Intake Total 0 / 0 Output Total 675 / 675 Balance -675 / -675 0 / 0 Intake: Oral 0 / 0 Output: Urine 675 / 675 Other: # Bowel Movements 1 Weight 125.4 kg Blood Glucose* 148 100 103 Patient Weight 10/07/17 23:59 Weight 125.4 kg - General physical appearance well developed, well nourished - Eyes PERRL - ENT normal mucosa - Neck Neck exam: no masses - Respiratory normal expansion - Cardiovascular Cardiovascular exam: Present: RRR - Abdomen Abdomen: Present: bowel sounds present, soft, distended - Neurologic CN 2-12 grossly intact, normal sensation - Psychiatric oriented to time, oriented to person, oriented to place - Labs 10/07/17 04:53 10/07/17 04:53 Diabetes panel 10/07/17 Range/Units 04:53 Sodium 135 L (136-145) mEq/L Potassium 3.9 (3.5-5.1) mEq/L Chloride 100 (98-107) mEq/L Carbon Dioxide 27 (23-29) mEq/L BUN 30 H (8-23) mg/dL Creatinine 1.59 H (0.70-1.30) mg/dL Glucose 111 H (70-105) mg/dL Calcium 9.1 (8.6-10.3) mg/dL Calcium panel 10/07/17 Range/Units 04:53 Calcium 9.1 (8.6-10.3) mg/dL Pituitary panel 10/07/17 Range/Units 04:53 Sodium 135 L (136-145) mEq/L Potassium 3.9 (3.5-5.1) mEq/L Chloride 100 (98-107) mEq/L Carbon Dioxide 27 (23-29) mEq/L BUN 30 H (8-23) mg/dL Creatinine 1.59 H (0.70-1.30) mg/dL Glucose 111 H (70-105) mg/dL Calcium 9.1 (8.6-10.3) mg/dL Adrenal panel 10/07/17 Range/Units 04:53 Sodium 135 L (136-145) mEq/L Potassium 3.9 (3.5-5.1) mEq/L Chloride 100 (98-107) mEq/L Carbon Dioxide 27 (23-29) mEq/L BUN 30 H (8-23) mg/dL Creatinine 1.59 H (0.70-1.30) mg/dL Glucose 111 H (70-105) mg/dL Calcium 9.1 (8.6-10.3) mg/dL - Imaging US - abdomen: image reviewed Consult Discharge Plan - Plan Referrals: Krish-Edda Banda DO [Primary Care Provider] -
--- NOTE | 2017-10-07 13:13 | Discharge Summary ---
- NOTES TO OUTPATIENT PROVIDER Notes to Outpatient Provider: Patient to follow-up with his primary care physician regarding lower extremity intermittent edema. Patient does have sleep apnea but he tells me he is compliant with his sleep device. Date of Encounter: 10/07/17 Time of Encounter: 13:11 - Discharge Diagnosis (1) Chronic respiratory failure with hypoxia Priority: Secondary Status: Chronic (2) Cerebrovascular accident Priority: Secondary Status: Chronic Qualifiers: CVA mechanism: embolism Precerebral and cerebral artery: unspecified cerebral artery Qualified Code(s): I63.40 - Cerebral infarction due to embolism of unspecified cerebral artery (3) Anxiety Priority: Secondary Status: Chronic (4) Depression Status: Chronic Qualifiers: Depression Type: major depressive disorder Major depression recurrence: recurrent Active/Remission status: in full remission Qualified Code(s): F33.42 - Major depressive disorder, recurrent, in full remission (5) CAD in [place] artery Status: Chronic (6) Pacemaker Status: Chronic (7) Atrial fibrillation Status: Chronic Qualifiers: Atrial fibrillation type: paroxysmal Qualified Code(s): I48.0 - Paroxysmal atrial fibrillation (8) COPD (chronic obstructive pulmonary disease) Status: Chronic Qualifiers: COPD type: unspecified COPD Qualified Code(s): J44.9 - Chronic obstructive pulmonary disease, unspecified (9) Diabetes mellitus Status: Chronic Qualifiers: Diabetes mellitus type: type 2 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: without group home use Diabetes mellitus complication status: with kidney complications Diabetes mellitus complication detail: with chronic kidney disease Chronic kidney disease stage: stage 3 (moderate) Qualified Code(s): E11.22 - Type 2 diabetes mellitus with diabetic chronic kidney disease; N18.3 - Chronic kidney disease, stage 3 (moderate); N18.3 - Chronic kidney disease, stage 3 (moderate) (10) GERD (gastroesophageal reflux disease) Status: Chronic Qualifiers: Esophagitis presence: esophagitis presence not specified Qualified Code(s) : K21.9 - Gastro-esophageal reflux disease without esophagitis (11) HTN (hypertension) Status: Chronic Qualifiers: Hypertension type: essential hypertension Qualified Code(s): I10 - Essential (primary) hypertension (12) HLD (hyperlipidemia) Status: Chronic Qualifiers: Hyperlipidemia type: unspecified Qualified Code(s): E78.5 - Hyperlipidemia , unspecified (13) CHF (congestive heart failure) Status: Chronic Qualifiers: Qualified Code(s): I50.32 - Chronic diastolic (congestive) heart failure (14) Obesity (BMI 30-39.9) Status: Chronic (15) Oohcl-ku-vzqbdbo kidney injury Status: Acute Qualifiers: Acute renal failure type: unspecified Chronic kidney disease stage: stage 3 (moderate) Qualified Code(s): N17.9 - Acute kidney failure, unspecified; N18.9 - Chronic kidney disease, unspecified; N18.9 - Chronic kidney disease, unspecified (16) Constipation Status: Resolved Qualifiers: Constipation type: slow transit constipation Qualified Code(s): K59.01 - Slow transit constipation (17) BPH (benign prostatic hyperplasia) Status: Chronic Qualifiers: Lower urinary tract symptom presence: unspecified whether lower urinary tract symptoms present Qualified Code(s): N40.0 - Benign prostatic hyperplasia without lower urinary tract symptoms (18) Cholelithiasis Status: Acute Qualifiers: Qualified Code(s): K80.20 - Calculus of gallbladder without cholecystitis without obstruction (19) Ambulatory dysfunction Status: Acute Hospital course: Mr. Issa is a 67 year old male - Time Spent with Patient Total time spent providing and/or coordinating discharge services: - Discharge Medications Home Medications: Aspirin Enteric Coated [Aspirin EC] 81 mg PO DAILY #0 04/09/15 [History] Rivaroxaban [Xarelto] 20 mg PO DAILY #0 04/09/15 [History] Albuterol Sulfate [Proair Hfa] 2 puff IH Q4H PRN 12/14/16 [History] Atorvastatin [Lipitor] 40 mg PO HS 12/14/16 [History] Gabapentin [Neurontin] 400 mg PO BID 12/14/16 [History] Pantoprazole Sodium [Protonix] 40 mg PO DAILY 12/14/16 [History] Polyethylene Glycol 3350 [MiraLAX Powder Bulk 17.9 Oz] 17 gm PO DAILY PRN [History] Sennosides/Docusate Sodium [Senna-Docusate Sodium Tablet] 1 tab PO BID PRN 12/14 [History] Tizanidine HCl [Zanaflex] 2 mg PO BID 12/14/16 [History] DULoxetine [Cymbalta] 30 mg PO DAILY 02/14/17 [History] Tamsulosin [Flomax] 0.4 mg PO BID 02/14/17 [History] OxyCODONE Immed Rel [Roxicodone 10 MG] 10 mg PO QID PRN 05/27/17 [History] Amiodarone [Cordarone] 200 mg PO DAILY 07/05/17 [History] Capsaicin [Arthritis Pain Relief] 1 appl TP BID PRN 07/05/17 [History] Finasteride [Proscar] 5 mg PO DAILY 07/05/17 [History] Furosemide [Lasix] 40 mg PO BID 07/05/17 [History] Lidocaine 4% CRM (LMX) [Lmx 4] 1 appl TP TID 07/05/17 [History] Memantine HCl 10 mg PO BID 07/05/17 [History] Tiotropium Br/Olodaterol HCl [Stiolto Respimat Inhal [place]] 2 puff IH DAILY 11/17 [History] metOLazone [Zaroxolyn] 2.5 mg PO BID 07/20/17 [History] Cholecalciferol (D-3) [Vitamin D] 2,000 unit PO DAILY 10/04/17 [History] Eucerin Creme 1 appl TP QID PRN 10/04/17 [History] Fluticasone Propionate Nasal [Flonase] 100 mcg NS DAILY 10/04/17 [History] Fluticasone/Salmeterol [Advair 250-50 Diskus] 1 each IH BID 10/04/17 [History] LORazepam [Ativan] 0.5 mg PO HS 10/04/17 [History] Lubiprostone [Amitiza] 8 mcg PO BID 10/04/17 [History] Melatonin [Melatin] 9 mg PO HS 10/04/17 [History] Methotrexate [Otrexup] 10 mg PO TH 10/04/17 [History] Metoprolol XL (24 HR) Succ [Toprol XL] 12.5 mg PO QPM 10/04/17 [History] Spironolactone [Aldactone] 100 mg PO DAILY 10/04/17 [History] Trazodone HCl 200 mg PO HS 10/04/17 [History] Allergies/Adverse Reactions: 3 Allergy/AdvReac Type Severity Reaction Status Date / Time IVP DYE Allergy Anaphylaxis Uncoded 10/04/17 13:23 Date of admission: 10/04/17 18:16 Primary care physician: Edda Rutherford Consults: 10/04/17 22:01 Consult to Nephrology [CONS] Routine Consulting Provider: Kidney Sujatha/OTTO/JESSICA/BENITO Reason for Consult: AG on CKD, diuretic use Call Completed: No 10/05/17 12:47 Consult to Surgery [CONS] Routine Consulting Provider: Surgery Suj[facility] Reason for Consult: gallstones Time Notified: 12:48 Call Completed: Yes 10/05/17 15:42 Consult to Occupational Therapy [CONS] Routine Comment: Evaluate, develop and implement POC Reason for Consult: And laboratory dysfunction Does patient have active BEDREST order?: No Is patient medically & hemodynamically stable?: Yes Patient assessed for mobility or mobilized this visit?: No Consult to Physical Therapy [CONS] Routine Comment: Evaluate, develop and implement POC Reason for Consult: Ambulatory dysfunction Does patient have active BEDREST order?: No Is patient medically & hemodynamically stable?: Yes Patient assessed for mobility or mobilized this visit?: No Consult to Test Deck Supervisor [CONS] Routine Reason for SW Consult: Placement versus home Discharging clinician: Shala Cruz Anticipated date of discharge: 10/07/17 - Constitutional Vitals: Temp Pulse Resp BP Pulse Ox 98.0 F 74 16 115/77 93 10/07/17 10:00 10/07/17 10:00 10/07/17 10:00 10/07/17 10:00 10/07/17 10:00 General appearance: Present: cooperative, A&O X 3, obese, answers questions appropriately - Patient Status Condition: Fair - Discharge Instructions Follow Up With: Krish-Edda Banda DO [Primary Care Provider] -
[2017-10-07] MEDS: Fluticasone Propionate Nasal 50 MCG/SPRAY BOTTLE NS SCH (13:15)
--- NOTE | 2017-10-07 16:41 | Internal Med Progress Note ---
Date of Encounter: 10/07/17 Time of Encounter: 16:39 - Assessment and plan (1) Chronic respiratory failure with hypoxia Current Visit: Yes Status: Chronic Assessment and plan: COPD and chronic CHF on chronic 02 use O2 to maintain sats greater than 90% (2) Cerebrovascular accident Current Visit: Yes Status: Chronic Assessment and plan: previous CVA with no new deficits, supportive care, continue ASA and statin; Qualifiers: CVA mechanism: embolism Precerebral and cerebral artery: unspecified cerebral artery Qualified Code(s): I63.40 - Cerebral infarction due to embolism of unspecified cerebral artery (3) Anxiety Current Visit: Yes Status: Chronic Assessment and plan: continue trazadone, ativan (4) Depression Current Visit: Yes Status: Chronic Assessment and plan: continue cymbalta Qualifiers: Depression Type: major depressive disorder Major depression recurrence: recurrent Active/Remission status: in full remission Qualified Code(s): F33.42 - Major depressive disorder, recurrent, in full remission (5) CAD in [place] artery Current Visit: Yes Status: Chronic Assessment and plan: continue home med (6) Pacemaker Current Visit: Yes Status: Chronic (7) Atrial fibrillation Current Visit: Yes Status: Chronic Assessment and plan: continue beta brisa, Xarelto for group home 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; Qualifiers: Atrial fibrillation type: paroxysmal Qualified Code(s): I48.0 - Paroxysmal atrial fibrillation (8) COPD (chronic obstructive pulmonary disease) Current Visit: Yes Status: Chronic Assessment and plan: no acute exacerbation, continue PRN breathing treatments, supplemental O2 to maintain sats greater than 90% Qualifiers: COPD type: unspecified COPD Qualified Code(s): J44.9 - Chronic obstructive pulmonary disease, unspecified (9) Diabetes mellitus Current Visit: Yes Status: Chronic Assessment and plan: Accucheck blood glucose monitoring with sliding scale insulin as needed; diabetic diet; Qualifiers: Diabetes mellitus type: type 2 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 home 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 Diabetes mellitus complication status: with kidney complications Diabetes mellitus complication detail: with chronic kidney disease Chronic kidney disease stage: stage 3 (moderate) Qualified Code(s): E11.22 - Type 2 diabetes mellitus with diabetic chronic kidney disease; N18.3 - Chronic kidney disease, stage 3 (moderate); N18.3 - Chronic kidney disease, stage 3 (moderate) (10) GERD (gastroesophageal reflux disease) Current Visit: Yes Status: Chronic Assessment and plan: continue ppi Qualifiers: Esophagitis presence: esophagitis presence not specified Qualified Code(s) : K21.9 - Gastro-esophageal reflux disease without esophagitis (11) HTN (hypertension) Current Visit: Yes Status: Chronic Assessment and plan: blood pressure remains stable Qualifiers: Hypertension type: essential hypertension Qualified Code(s): I10 - Essential (primary) hypertension (12) HLD (hyperlipidemia) Current Visit: Yes Status: Chronic Assessment and plan: Continue home statin Qualifiers: Hyperlipidemia type: unspecified Qualified Code(s): E78.5 - Hyperlipidemia , unspecified (13) CHF (congestive heart failure) Current Visit: Yes Status: Chronic Assessment and plan: Elevated creatinine in the setting of diuretic use including Lasix and Aldactone. Mild hypotension. Started on methotrexate for arthritic pain at the [place] which is nephrotoxic -hold Nephrology consult and following Ultrasound of kidney with impression of echogenic left kidney which could reflect medical renal disease. Patient unable to void for the exam so correlate for bladder outlet obstruction. Urine for sodium, eosinophils, and proteins reviewed Avoid nephrotoxic agents Hold IV fluids. Hold current diuretics. Fluid restrictions to 1.5 L a day Daily weight Strict I's and O's. Qualifiers: Qualified Code(s): I50.32 - Chronic diastolic (congestive) heart failure (14) Obesity (BMI 30-39.9) Current Visit: Yes Status: Chronic Assessment and plan: Lifestyle modifications including dietary (15) Plzdj-yk-wbqpxbl kidney injury Current Visit: Yes Status: Acute Assessment and plan: Baseline serum creatinine noted to be about 1.35, r noted to be fluctuating between 1.3 and 2.4 in the last few months. He also has had multiple episodes of acute kidney injury, related to diuretic use and has been seen by nephrology as inpatient in the past. Patient was currently noted to be on 3 diuretics including Lasix, spironolactone and thiazide diuretics. Hold all 3 and continue to monitor serum creatinine closely. Monitor urine output and blood pressure. Hold off on IV hydration at this time , he does not appear dehydrated. Nephrology following for further management, thanks for the help. Patient's family drove him to this emergency room from the [facility] as they feel he was not being managed appropriately. Patient would like to be discharged back home from here. Qualifiers: Acute renal failure type: unspecified Chronic kidney disease stage: stage 3 (moderate) Qualified Code(s): N17.9 - Acute kidney failure, unspecified; N18.9 - Chronic kidney disease, unspecified; N18.9 - Chronic kidney disease, unspecified (16) Constipation Current Visit: Yes Status: Resolved Qualifiers: Constipation type: slow transit constipation Qualified Code(s): K59.01 - Slow transit constipation (17) BPH (benign prostatic hyperplasia) Current Visit: Yes Status: Chronic Assessment and plan: cont Proscar/ Flomax Qualifiers: Lower urinary tract symptom presence: unspecified whether lower urinary tract symptoms present Qualified Code(s): N40.0 - Benign prostatic hyperplasia without lower urinary tract symptoms (18) Cholelithiasis Current Visit: Yes Status: Acute Assessment and plan: General surgery consult with plan of no urgent surgical intervention indicated this time. Right upper quadrant ultrasound to further evaluate gallbladder has been ordered. Suggest pain control and supportive care and they will monitor the patient closely. LFTs are normal. Bili currently within normal limits gall bladder US completed Qualifiers: Qualified Code(s): K80.20 - Calculus of gallbladder without cholecystitis without obstruction (19) Ambulatory dysfunction Current Visit: Yes Status: Acute Assessment and plan: pt/ot eval, SS - Time Spent With Patient Total time spent is greater than 50% in coordination of care (as documented) at patient's floor/unit and/or counseling patient: - Subjective Interval history: Patient is sitting up in the bed with no voiced complaints. He had a large bowel movement yesterday and feels much better. No chest pain shortness of breath headache dizziness fever or chills. - Constitutional Vitals: Temp Pulse Resp BP Pulse Ox 97.9 F 62 16 107/72 93 10/07/17 14:00 10/07/17 14:00 10/07/17 14:00 10/07/17 14:00 10/07/17 14:00 General appearance: Present: cooperative, A&O X 3, pleasant, obese, answers questions appropriately - Head Head exam: Present: atraumatic, normocephalic - Eye Eye exam: Present: PERRL, conjuntiva pink, sclera anicteric Pupils: Present: PERRL - Neck Neck exam general surgery: Present: supple, trachea midline. Absent: lymphadenopathy - Respiratory Respiratory exam: Present: CTAB. Absent: accessory muscle use, rales, rhonchi, wheezes - Cardiovascular Cardiovascular exam: Present: RRR, +S1, +S2. Absent: diastolic murmur, gallop, rubs, systolic murmur - GI/Abdominal GI/Abdominal exam: Present: normal bowel sounds, soft, no peritoneal signs. Absent: distended, tenderness - Extremities Exam Extremities exam: Present: pedal edema, warm, radial pulses palpable and symmetrical. Absent: calf tenderness, cyanotic - Neurological Exam Neurological exam: Present: CN II-XII intact, oriented X3, no focal deficits. Absent: pronater drift, facial droop, speech deficit - Skin Skin exam: Present: dry, intact, normal color, warm Internal Medicine: Result - Labs CBC & Chem 7: 10/07/17 04:53 10/07/17 04:53 Labs: Short CBC 10/07/17 Range/Units 04:53 WBC 8.8 (4.3-11.1) K/mcL Hgb 13.7 (12.9-16.9) g/dL Hct 42.4 (37.5-50.1) % Plt Count 255 (140-400) K/mcL BMP 10/07/17 04:53 Sodium 135 L Potassium 3.9 Chloride 100 Carbon Dioxide 27 BUN 30 H Creatinine 1.59 H Glucose 111 H Calcium 9.1 - Impressions Impressions Gallbladder Ultrasound 10/07/17 00:00 IMPRESSION: Cholelithiasis without evidence of biliary dilation. Otherwise unremarkable right upper quadrant ultrasound. D/ / Gregory Noyola MD / Gregory Noyola MD Interpreting Provider: Gregory Noyola MD Consult Discharge Plan - Plan Referrals: Able-Edda Banda DO [Primary Care Provider] -
[2017-10-07] MEDS: Metoprolol XL (24 HR) Succ 25 MG TAB.ER.24H PO SCH (16:55)
[2017-10-07] MEDS: traZODone 50 MG TABLET PO SCH (21:35)
[2017-10-07] MEDS: Melatonin 3 MG TABLET PO SCH (21:36)
[2017-10-07] MEDS: *HR* LORazepam 0.5 MG TABLET PO SCH (21:36)
[2017-10-08] MEDS: Aspirin Enteric Coated 81 MG Tablet PO SCH (07:46)
[2017-10-08] MEDS: *HR* Rivaroxaban 10 MG TABLET PO SCH (07:47)
[2017-10-08] MEDS: *HR* Amiodarone 200 MG TABLET PO SCH (07:47)
[2017-10-08] MEDS: Finasteride 5 MG TABLET PO SCH (07:47)
[2017-10-08] MEDS: Insulin LISPRO 300 UNITS/3 ML VIAL SQ SCH ×4 (08:00→21:37)
[2017-10-08] MEDS: Budesonide/Formoterol 80/4.5 MDI IH SCH ×2 (08:13→21:55)
[2017-10-08] MEDS: Fluticasone Propionate Nasal 50 MCG/SPRAY BOTTLE NS SCH (10:19)
[2017-10-08] MEDS: LUBIPROSTONE 8 MCG PO SCH ×2 (11:20→22:54)
[2017-10-08] MEDS: STIOLTO RESPIMAT IH SCH (11:21)
--- NOTE | 2017-10-08 15:16 | Internal Med Progress Note ---
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 (3) Anxiety Current Visit: Yes Status: Chronic Assessment and plan: continue home trazadone, ativan (4) Depression Current Visit: Yes Status: Chronic Assessment and plan: continue home cymbalta Qualifiers: Depression Type: major depressive disorder Major depression recurrence: recurrent Active/Remission status: in full remission Qualified Code(s): F33.42 - Major depressive disorder, recurrent, in full remission (5) CAD in [place] artery Current Visit: Yes Status: Chronic Assessment and plan: continue his home med (6) Pacemaker Current Visit: Yes Status: Chronic (7) Atrial fibrillation Current Visit: Yes Status: Chronic Assessment and plan: continue beta brisa at home dose, Xarelto for manager intermediate 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; Qualifiers: Atrial fibrillation type: paroxysmal Qualified Code(s): I48.0 - Paroxysmal atrial fibrillation (8) COPD (chronic obstructive pulmonary disease) Current Visit: Yes Status: Chronic Assessment and plan: With no acute exacerbation, continue PRN breathing treatments, supplemental O2 to maintain sats greater than 90% Qualifiers: COPD type: unspecified COPD Qualified Code(s): J44.9 - Chronic obstructive pulmonary disease, unspecified (9) Diabetes mellitus Current Visit: Yes Status: Chronic Assessment and plan: Accucheck blood glucose monitoring with low dose sliding scale insulin as needed ; diabetic diet; Qualifiers: Diabetes mellitus type: type 2 Diabetes mellitus assisted insulin use: without manager intermediate use Diabetes mellitus complication status: with kidney complications Diabetes mellitus complication detail: with chronic kidney disease Chronic kidney disease stage: stage 3 (moderate) Qualified Code(s): E11.22 - Type 2 diabetes mellitus with diabetic chronic kidney disease; N18.3 - Chronic kidney disease, stage 3 (moderate); N18.3 - Chronic kidney disease, stage 3 (moderate) (10) GERD (gastroesophageal reflux disease) Current Visit: Yes Status: Chronic Assessment and plan: continue home ppi Qualifiers: Esophagitis presence: esophagitis presence not specified Qualified Code(s) : K21.9 - Gastro-esophageal reflux disease without esophagitis (11) HTN (hypertension) Current Visit: Yes Status: Chronic Assessment and plan: blood pressure remains stable, continue home meds Qualifiers: Hypertension type: essential hypertension Qualified Code(s): I10 - Essential (primary) hypertension (12) HLD (hyperlipidemia) Current Visit: Yes Status: Chronic Assessment and plan: Continue statin Qualifiers: Hyperlipidemia type: unspecified Qualified Code(s): E78.5 - Hyperlipidemia , unspecified (13) CHF (congestive heart failure) Current Visit: Yes Status: Chronic Assessment and plan: Elevated creatinine in the setting of diuretic use including Lasix and Aldactone. Mild hypotension. Started on methotrexate for arthritic pain at the CT which is nephrotoxic -hold Nephrology consulted and following Ultrasound of kidney with impression of echogenic left kidney which could reflect medical renal disease. Patient unable to void for the exam so correlate for bladder outlet obstruction. Urine for sodium, eosinophils, and proteins reviewed Avoid nephrotoxic agents Hold IV fluids. Hold current diuretics. Fluid restrictions to 1.5 L a day Daily weight Strict I's and O's. Qualifiers: Qualified Code(s): I50.32 - Chronic diastolic (congestive) heart failure (14) Obesity (BMI 30-39.9) Current Visit: Yes Status: Chronic Assessment and plan: Lifestyle modifications - dietary (15) [id number] kidney injury Current Visit: Yes Status: Acute Assessment and plan: Baseline serum creatinine noted to be about 1.35, noted to be fluctuating between 1.3 and 2.4 in the last few months. He also has had multiple episodes of acute kidney injury, related to diuretic use and has been seen by nephrology as inpatient in the past. Patient was currently noted to be on 3 diuretics including Lasix, spironolactone and thiazide diuretics. Hold all 3 and continue to monitor serum creatinine closely. Monitor urine output and blood pressure. Hold off on IV hydration at this time , he does not appear dehydrated. Nephrology following for further management, thanks for the help. Patient's family drove him to this emergency room from the [facility] facility as they feel he was not being managed appropriately. Patient would like to be discharged back home from here. Qualifiers: Acute renal failure type: unspecified Chronic kidney disease stage: stage 3 (moderate) Qualified Code(s): N17.9 - Acute kidney failure, unspecified; N18.3 - Chronic kidney disease, stage 3 (moderate); N18.3 - Chronic kidney disease, stage 3 (moderate) (16) Constipation Current Visit: Yes Status: Resolved Assessment and plan: PRN stool softeners and laxatives effective with addition of lactulose and MiraLAX. CT abdomen/pelvis showed gallstones and gallbladder sludge, no other acute abnormalities. Abdominal pain could be due to constipation. Qualifiers: Constipation type: slow transit constipation Qualified Code(s): K59.01 - Slow transit constipation (17) BPH (benign prostatic hyperplasia) Current Visit: Yes Status: Chronic Assessment and plan: cont Proscar and Flomax Qualifiers: Lower urinary tract symptom presence: unspecified whether lower urinary tract symptoms present Qualified Code(s): N40.0 - Benign prostatic hyperplasia without lower urinary tract symptoms (18) Cholelithiasis Current Visit: Yes Status: Acute Assessment and plan: General surgery consult with plan of no surgical intervention indicated this time. Right upper quadrant ultrasound to further evaluate gallbladder completed. Suggest pain control and supportive care, monitor the patient closely. LFTs are normal. Bili currently within normal limits gall bladder US completed and report revealed the liver demonstrates normal echogenicity without evidence of inner hepatic biliary ductal dilatation. Common bile duct within normal limits measuring 4.5 mm. Tiny echogenic stones are seen in the dependent portion of the gallbladder neck. The gallbladder is otherwise unremarkable without evidence of a cholecystic fluid or wall thickening. Qualifiers: Qualified Code(s): K80.20 - Calculus of gallbladder without cholecystitis without obstruction (19) Ambulatory dysfunction Current Visit: Yes Status: Acute Assessment and plan: pt/ot galina, SS to determine discharge plan - Time Spent With Patient Total time spent is greater than 50% in coordination of care (as documented) at patient's floor/unit and/or counseling patient: - Subjective Interval history: Patient is sitting up in the bed with no voiced complaints. No chest pain shortness of breath headache dizziness fever or chills. - Constitutional Vitals: Temp Pulse Resp BP Pulse Ox 98.1 F 66 18 107/71 91 10/08/17 10:39 10/08/17 10:39 10/08/17 10:39 10/08/17 10:39 10/08/17 10:39 General appearance: Present: cooperative, A&O X 3, pleasant, obese, answers questions appropriately - Head Head exam: Present: atraumatic, normocephalic - Eye Eye exam: Present: PERRL, conjuntiva pink, sclera anicteric Pupils: Present: PERRL - Neck Neck exam general surgery: Present: supple, trachea midline. Absent: lymphadenopathy - Respiratory Respiratory exam: Present: CTAB. Absent: accessory muscle use, rales, rhonchi, wheezes - Cardiovascular Cardiovascular exam: Present: RRR, +S1, +S2. Absent: diastolic murmur, gallop, rubs, systolic murmur - GI/Abdominal GI/Abdominal exam: Present: normal bowel sounds, soft, tenderness, no peritoneal signs. Absent: distended - Extremities Exam Extremities exam: Present: pedal edema, warm, radial pulses palpable and symmetrical. Absent: calf tenderness, cyanotic - Neurological Exam Neurological exam: Present: CN II-XII intact, oriented X3, no focal deficits. Absent: pronater drift, facial droop, speech deficit - Skin Skin exam: Present: dry, intact, normal color, warm Internal Medicine: Result - Labs CBC & Chem 7: 10/07/17 04:53 10/07/17 04:53 Consult Discharge Plan - Plan Referrals: Able-Edda Banda DO [Primary Care Provider] -
[2017-10-08] MEDS: Metoprolol XL (24 HR) Succ 25 MG TAB.ER.24H PO SCH (17:35)
[2017-10-08] MEDS: traZODone 50 MG TABLET PO SCH (21:44)
[2017-10-08] MEDS: Melatonin 3 MG TABLET PO SCH (21:45)
[2017-10-08] MEDS: *HR* LORazepam 0.5 MG TABLET PO SCH (21:45)
[2017-10-08] MEDS: *HR* OxyCODONE Immed Rel 5 MG TABLET PO PRN (21:51)
[2017-10-09] MEDS: Insulin LISPRO 300 UNITS/3 ML VIAL SQ SCH ×4 (08:08→21:15)
[2017-10-09] MEDS: Fluticasone Propionate Nasal 50 MCG/SPRAY BOTTLE NS SCH (08:09)
[2017-10-09] MEDS: Finasteride 5 MG TABLET PO SCH (08:10)
[2017-10-09] MEDS: *HR* Rivaroxaban 10 MG TABLET PO SCH (08:10)
[2017-10-09] MEDS: *HR* OxyCODONE Immed Rel 5 MG TABLET PO PRN ×2 (08:10→22:25)
[2017-10-09] MEDS: LUBIPROSTONE 8 MCG PO SCH ×2 (08:11→21:15)
[2017-10-09] MEDS: Aspirin Enteric Coated 81 MG Tablet PO SCH (08:11)
[2017-10-09] MEDS: STIOLTO RESPIMAT IH SCH (08:11)
[2017-10-09] MEDS: *HR* Amiodarone 200 MG TABLET PO SCH (08:11)
[2017-10-09] MEDS: Budesonide/Formoterol 80/4.5 MDI IH SCH ×2 (08:23→19:41)
[2017-10-09 09:54] LABS: Basophils # 0.1 K/mcL (0.0-0.2); Basophils % 0.6 %; Eosinophils # 0.6 K/mcL (0.0-0.6); Eosinophils % 5.7 %; Hematocrit 45.1 % (37.5-50.1); Hemoglobin 14.7 g/dL (12.9-16.9); Immature Granulocytes % 0.5 % (0-4); Lymphocytes # 0.9 K/mcL (0.6-4.6); Lymphocytes % 9.7 %; Mean Corpuscular HGB Conc 32.6 g/dL (31.6-35.5); Mean Corpuscular Hemoglobin 29.1 pg (28.0-33.3); Mean Corpuscular Volume 89.3 fL (83.0-100.0); Mean Platelet Volume 9.4 fL (9.4-12.4); Monocytes # 0.9 K/mcL (0.0-1.3); Monocytes % 8.9 %; Neutrophils # 7.2 K/mcL (1.6-8.9); Platelet Count 270 K/mcL (140-400); Red Blood Count 5.05 M/mcL (4.19-5.50); Red Cell Distribution Width 17.5 % (11.5-14.5); Segmented Neutrophils % 74.6 %
[2017-10-09 10:11] LABS: Calcium 9.4 mg/dL (8.6-10.3); Potassium 3.7 mEq/L (3.5-5.1)
--- NOTE | 2017-10-09 11:03 | General Surgery Progress Note ---
Date of Encounter: 10/09/17 Time of Encounter: 10:45 - Assessment and Plan (1) Symptomatic cholelithiasis Current Visit: Yes Status: Acute Plan for laparoscopic cholecystectomy when the patient is medically stable- plan for tentatively 10/11/[address] Parris MARTINEZ after midnight on Monday Supportive care Hold Xarelto today and tomorrow in preparartion for surgery 10/11/17 Medical management per hospitalist service Plan discussed with primary team The risks, benefits, alternatives and expected outcomes were reviewed with the patient and he is in agreement to proceed to the operating room for a laparoscopic cholecystectomy in the upcoming days. Subjective Patient reports: no new complaints, feels better, still having pain, pain is less, tolerating a regular diet (poor appetite), flatus, bowel movement, diarrhea, afebrile, other (complaint of feeling bloated) Objective Vital Signs - Last 8 Hours Temp Pulse Resp BP Pulse Ox 10/09/17 08:23 16 93 10/09/17 08:05 98.1 F 77 16 114/77 92 Intake and Output 10/08/17 10/09/17 10/09/17 23:59 07:59 15:59 Intake Total 100 / 100 120 / 120 360 / 360 Balance 100 / 100 120 / 120 360 / 360 Intake: Oral 100 / 100 120 / 120 360 / 360 Other: Meal Dinner Breakfast Percent of Meal Consumed 0% 100% Stool Size Small Stool Consistency loose # Voids 1 # Bowel Movements 1 # Bowel Movement Diapers 0 Weight 124.6 kg Blood Glucose* 95 97 Patient Weight 10/09/17 23:59 Weight 124.6 kg - General physical appearance well nourished, no distress, chronically ill - Eyes normal ocular movement - ENT normal mucosa, atraumatic, normocephalic - Neck Neck exam: trachea midline - Respiratory normal respiratory effort, clear to auscultation, other (diminished bibasilar bases) - Cardiovascular Cardiovascular exam: Present: RRR - Abdomen Abdomen: Present: bowel sounds present, soft, distended (mildly), tender ( mildly across abdomen) Abdominal Tenderness: diffusely - Neurologic CN 2-12 grossly intact - Musculoskeletal other (physical deconditioning noted) - Psychiatric oriented to time, oriented to person, oriented to place, speech is normal, memory intact - Labs 10/09/17 09:14 10/09/17 09:14 Diabetes panel 10/09/17 Range/Units 09:14 Sodium 133 L (136-145) mEq/L Potassium 3.7 (3.5-5.1) mEq/L Chloride 98 (98-107) mEq/L Carbon Dioxide 30 H (23-29) mEq/L BUN 26 H (8-23) mg/dL Creatinine 1.53 H (0.70-1.30) mg/dL Glucose 156 H (70-105) mg/dL Calcium 9.4 (8.6-10.3) mg/dL Calcium panel 10/09/17 Range/Units 09:14 Calcium 9.4 (8.6-10.3) mg/dL Pituitary panel 10/09/17 Range/Units 09:14 Sodium 133 L (136-145) mEq/L Potassium 3.7 (3.5-5.1) mEq/L Chloride 98 (98-107) mEq/L Carbon Dioxide 30 H (23-29) mEq/L BUN 26 H (8-23) mg/dL Creatinine 1.53 H (0.70-1.30) mg/dL Glucose 156 H (70-105) mg/dL Calcium 9.4 (8.6-10.3) mg/dL Adrenal panel 10/09/17 Range/Units 09:14 Sodium 133 L (136-145) mEq/L Potassium 3.7 (3.5-5.1) mEq/L Chloride 98 (98-107) mEq/L Carbon Dioxide 30 H (23-29) mEq/L BUN 26 H (8-23) mg/dL Creatinine 1.53 H (0.70-1.30) mg/dL Glucose 156 H (70-105) mg/dL Calcium 9.4 (8.6-10.3) mg/dL Consult Discharge Plan - Plan Referrals: Krish-Edda Banda DO [Primary Care Provider] - - Attending Attestation For this encounter, I have reviewed the [employer] or PA documentation, treatment plan, and medical decision making; and I have had face to face time with this patient.
[2017-10-09] MEDS: Metoprolol XL (24 HR) Succ 25 MG TAB.ER.24H PO SCH (17:42)
--- NOTE | 2017-10-09 18:45 | Internal Med Progress Note ---
Date of Encounter: 10/09/17 Time of Encounter: 18:32 - Assessment and plan (1) Chronic respiratory failure with hypoxia Current Visit: Yes Status: Resolved Assessment and plan: COPD and chronic CHF with chronic 02 use O2 to maintain sats greater than 90% now room air (2) Cerebrovascular accident Current Visit: Yes Status: Chronic Assessment and plan: previous CVA with no new deficits, continue supportive care and continue ASA and statin; Qualifiers: CVA mechanism: embolism Precerebral and cerebral artery: unspecified cerebral artery Qualified Code(s): I63.40 - Cerebral infarction due to embolism of unspecified cerebral artery (3) Anxiety Current Visit: Yes Status: Chronic Assessment and plan: continue home trazadone and ativan (4) Depression Current Visit: Yes Status: Chronic Assessment and plan: continue home cymbalta dose Qualifiers: Depression Type: major depressive disorder Major depression recurrence: recurrent Active/Remission status: in full remission Qualified Code(s): F33.42 - Major depressive disorder, recurrent, in full remission (5) CAD in [place] artery Current Visit: Yes Status: Chronic Assessment and plan: continue home med (6) Pacemaker Current Visit: Yes Status: Chronic (7) Atrial fibrillation Current Visit: Yes Status: Chronic Assessment and plan: continue beta brisa at home dose, hold Xarelto for intermediate 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 for surgery Qualifiers: Atrial fibrillation type: paroxysmal Qualified Code(s): I48.0 - Paroxysmal atrial fibrillation (8) COPD (chronic obstructive pulmonary disease) Current Visit: Yes Status: Chronic Assessment and plan: no acute exacerbation, continue PRN breathing treatments, supplemental O2 to maintain sats greater than 90% Qualifiers: COPD type: unspecified COPD Qualified Code(s): J44.9 - Chronic obstructive pulmonary disease, unspecified (9) Diabetes mellitus Current Visit: Yes Status: Chronic Assessment and plan: Accucheck blood glucose monitoring with low dose sliding scale insulin and diabetic diet; Qualifiers: Diabetes mellitus type: type 2 Diabetes mellitus intermediate insulin use: without student life advisor use Diabetes mellitus complication status: with kidney complications Diabetes mellitus complication detail: with chronic kidney disease Chronic kidney disease stage: stage 3 (moderate) Qualified Code(s): E11.22 - Type 2 diabetes mellitus with diabetic chronic kidney disease; N18.3 - Chronic kidney disease, stage 3 (moderate); N18.3 - Chronic kidney disease, stage 3 (moderate) (10) GERD (gastroesophageal reflux disease) Current Visit: Yes Status: Chronic Assessment and plan: continue home PPI Qualifiers: Esophagitis presence: esophagitis presence not specified Qualified Code(s) : K21.9 - Gastro-esophageal reflux disease without esophagitis (11) HTN (hypertension) Current Visit: Yes Status: Chronic Assessment and plan: blood pressure stable, continue home meds Qualifiers: Hypertension type: essential hypertension Qualified Code(s): I10 - Essential (primary) hypertension (12) HLD (hyperlipidemia) Current Visit: Yes Status: Chronic Assessment and plan: Continue the statin Qualifiers: Hyperlipidemia type: unspecified Qualified Code(s): E78.5 - Hyperlipidemia , unspecified (13) CHF (congestive heart failure) Current Visit: Yes Status: Chronic Assessment and plan: Elevated creatinine in the setting of diuretic use including Lasix and Aldactone. Mild hypotension. Started on methotrexate for arthritic pain at the [facility] which is nephrotoxic -hold Nephrology consulted and following Ultrasound of kidney with impression of echogenic left kidney which could reflect medical renal disease. Patient unable to void for the exam so correlate for bladder outlet obstruction. Urine for sodium, eosinophils, and proteins reviewed Avoid nephrotoxic agents Hold IV fluids. Hold current diuretics. Fluid restrictions to 1.5 L a day Daily weight Strict I's and O's. Qualifiers: Qualified Code(s): I50.32 - Chronic diastolic (congestive) heart failure (14) Obesity (BMI 30-39.9) Current Visit: Yes Status: Chronic Assessment and plan: Lifestyle modifications, dietary (15) [id number] kidney injury Current Visit: Yes Status: Acute Assessment and plan: Baseline serum creatinine noted to be about 1.35, noted to be fluctuating between 1.3 and 2.4 in the last few months. He also has had multiple episodes of acute kidney injury, related to diuretic use and has been seen by nephrology as inpatient in the past. Patient was currently noted to be on 3 diuretics including Lasix, spironolactone and thiazide diuretics. Hold all 3 and continue to monitor serum creatinine closely. Monitor urine output and blood pressure. Hold off on IV hydration at this time , he does not appear dehydrated. Nephrology following for further management, thanks for the help. Patient's family drove him to this emergency room from the [facility] facility as they feel he was not being managed appropriately. Patient would like to be discharged back home from here. Qualifiers: Acute renal failure type: unspecified Chronic kidney disease stage: stage 3 (moderate) Qualified Code(s): N17.9 - Acute kidney failure, unspecified; N18.3 - Chronic kidney disease, stage 3 (moderate); N18.3 - Chronic kidney disease, stage 3 (moderate) (16) Constipation Current Visit: Yes Status: Resolved Assessment and plan: PRN stool softeners and laxatives effective with addition of lactulose and MiraLAX. CT abdomen/pelvis showed gallstones and gallbladder sludge, no other acute abnormalities. Abdominal pain contributed to by constipation. Qualifiers: Constipation type: slow transit constipation Qualified Code(s): K59.01 - Slow transit constipation (17) BPH (benign prostatic hyperplasia) Current Visit: Yes Status: Chronic Assessment and plan: cont Proscar and Flomax Check post void residual check ua with burning on urination Qualifiers: Lower urinary tract symptom presence: unspecified whether lower urinary tract symptoms present Qualified Code(s): N40.0 - Benign prostatic hyperplasia without lower urinary tract symptoms (18) Cholelithiasis Current Visit: Yes Status: Acute Assessment and plan: General surgery consult with plan for surgery on Monday. Right upper quadrant ultrasound to further evaluate gallbladder completed. Suggest pain control and supportive care, monitor the patient closely. LFTs are normal. Bili currently within normal limits gall bladder US completed and report revealed the liver demonstrates normal echogenicity without evidence of inner hepatic biliary ductal dilatation. Common bile duct within normal limits measuring 4.5 mm. Tiny echogenic stones are seen in the dependent portion of the gallbladder neck. The gallbladder is otherwise unremarkable without evidence of a cholecystic fluid or wall thickening. Qualifiers: Qualified Code(s): K80.20 - Calculus of gallbladder without cholecystitis without obstruction (19) Ambulatory dysfunction Current Visit: Yes Status: Acute Assessment and plan: pt/ot eval, SS discharge plan home with home PT/OT/ nurse per [facility] - Time Spent With Patient Total time spent is greater than 50% in coordination of care (as documented) at patient's floor/unit and/or counseling patient: - Subjective Interval history: Patient is sitting up in the bed complaining of burning on urination. So states he now has loose stools and is no longer constipated. No chest pain shortness of breath headache dizziness fever or chills. - Constitutional Vitals: Temp Pulse Resp BP Pulse Ox 98.1 F 64 17 99/63 93 10/09/17 16:40 10/09/17 16:40 10/09/17 16:40 10/09/17 16:40 10/09/17 16:40 General appearance: Present: cooperative, A&O X 3, pleasant, obese, answers questions appropriately - Head Head exam: Present: atraumatic, normocephalic - Eye Eye exam: Present: PERRL, conjuntiva pink, sclera anicteric Pupils: Present: PERRL - Neck Neck exam general surgery: Present: supple, trachea midline. Absent: lymphadenopathy - Respiratory Respiratory exam: Present: CTAB. Absent: accessory muscle use, rales, rhonchi, wheezes - Cardiovascular Cardiovascular exam: Present: RRR, +S1, +S2. Absent: diastolic murmur, gallop, rubs, systolic murmur - GI/Abdominal GI/Abdominal exam: Present: normal bowel sounds, soft, tenderness, no peritoneal signs. Absent: distended, guarding - Extremities Exam Extremities exam: Present: pedal edema, warm, radial pulses palpable and symmetrical. Absent: calf tenderness, cyanotic - Neurological Exam Neurological exam: Present: alert, CN II-XII intact, oriented X3, no focal deficits. Absent: pronater drift, facial droop, speech deficit Additional comments: Walks very little utilizes a wheelchair - Skin Skin exam: Present: dry, intact, normal color, warm Internal Medicine: Result - Labs CBC & Chem 7: 10/09/17 09:14 10/09/17 09:14 Labs: Short CBC 10/09/17 Range/Units 09:14 WBC 9.7 (4.3-11.1) K/mcL Hgb 14.7 (12.9-16.9) g/dL Hct 45.1 (37.5-50.1) % Plt Count 270 (140-400) K/mcL Neutrophils # 7.2 (1.6-8.9) K/mcL BMP 10/09/17 09:14 Sodium 133 L Potassium 3.7 Chloride 98 Carbon Dioxide 30 H BUN 26 H Creatinine 1.53 H Glucose 156 H Calcium 9.4 Consult Discharge Plan - Plan Referrals: Krish-Edda Banda DO [Primary Care Provider] -
[2017-10-09 20:59] LABS: Bilirubin,Urine Negative (Negative); Blood,Urine Negative (Negative); Clarity,Urine Clear (Clear); Color,Urine Yellow (Yellow); Glucose,Urine (UA) Normal (Normal); Ketones,Urine Negative (Negative); Leukocyte Esterase,Urine Negative (Negative); Nitrite,Urine Negative (Negative); Protein,Urine Negative (Neg-Trace); Urobilinogen,Urine Normal (Normal)
[2017-10-09] MEDS: Melatonin 3 MG TABLET PO SCH (21:14)
[2017-10-09] MEDS: traZODone 50 MG TABLET PO SCH (21:14)
[2017-10-09] MEDS: *HR* LORazepam 0.5 MG TABLET PO SCH (21:15)
[2017-10-10 06:04] LABS: Hematocrit 41.9 % (37.5-50.1); Hemoglobin 13.6 g/dL (12.9-16.9); Mean Corpuscular HGB Conc 32.5 g/dL (31.6-35.5); Mean Corpuscular Volume 89.3 fL (83.0-100.0); Mean Platelet Volume 9.5 fL (9.4-12.4); Platelet Count 260 K/mcL (140-400); Red Blood Count 4.69 M/mcL (4.19-5.50); Red Cell Distribution Width 16.9 % (11.5-14.5)
[2017-10-10 06:26] LABS: Alanine Aminotransferase 23 Units/L (7-52); Albumin 3.6 g/dL (3.5-5.7); Albumin/Globulin Ratio 1.3 (1.1-2.2); Alkaline Phosphatase 83 Units/L (34-104); Aspartate Amino Transferase 15 Units/L (13-39); BUN/Creatinine Ratio 19 (6-26); Bilirubin,Direct 0.2 mg/dL (0.0-0.2); Bilirubin,Indirect 0.1 mg/dL (0.0-1.2); Bilirubin,Total 0.3 mg/dL (0.3-1.0); Blood Urea Nitrogen 26 mg/dL (8-23); Calcium 8.9 mg/dL (8.6-10.3); Carbon Dioxide 26 mEq/L (23-29); Chloride 101 mEq/L (98-107); Globulin 2.7 g/dL (2.4-3.5); Glucose 96 mg/dL (70-105); Osmolality,Calculated 285 (280-300); Potassium 3.7 mEq/L (3.5-5.1); Sodium 135 mEq/L (136-145); Total Protein 6.3 g/dL (6.4-8.9); eGFR For African Americans > 60 (> 60); eGFR For Non-African Americans 53 (> 60)
[2017-10-10] MEDS: *HR* OxyCODONE Immed Rel 5 MG TABLET PO PRN ×3 (06:33→22:05)
[2017-10-10] MEDS: Insulin LISPRO 300 UNITS/3 ML VIAL SQ SCH ×4 (08:14→20:29)
[2017-10-10] MEDS: Finasteride 5 MG TABLET PO SCH (09:11)
[2017-10-10] MEDS: *HR* Amiodarone 200 MG TABLET PO SCH (09:11)
[2017-10-10] MEDS: Aspirin Enteric Coated 81 MG Tablet PO SCH (09:12)
[2017-10-10] MEDS: Fluticasone Propionate Nasal 50 MCG/SPRAY BOTTLE NS SCH (09:14)
--- NOTE | 2017-10-10 09:15 | General Surgery Progress Note ---
Date of Encounter: 10/10/17 Time of Encounter: 09:45 - Assessment and Plan (1) Symptomatic cholelithiasis Current Visit: Yes Status: Acute Plan for laparoscopic cholecystectomy tentatively 10/11/[address] Parris MARTINEZ after midnight Holding lisa Mendoza afib/presence of pacemaker for sick sinus syndrome Plan discussed with primary team The risks, benefits, alternatives and expected outcomes were reviewed with the patient and he is in agreement to proceed to the operating room for a laparoscopic cholecystectomy. (2) Pacemaker Current Visit: Yes Status: Chronic Placed 2010 in setting of afib with sick sinus syndrome Chronic condition, no recent exertional dyspnea or chest discomfort (3) Chronic respiratory failure with hypoxia Current Visit: Yes Status: Resolved Not in acute exacerbation, 2L O2 at home prn, saturating well on room air, uses wheelchair as main form of ambulation (4) CKD (chronic kidney disease) stage 3, GFR 30-59 ml/min Current Visit: No Status: Chronic Creatinine at baseline 1.5 Subjective Narrative: Pt seen and examined at bedside, patient is sitting comfortably in bed in no acute distress. He describes mild abdominal pain localized to the RUQ. He is currently not nauseated. Able to pass gas and urinate. Denies headache, fever, lightheadedness, or chest discomfort. Objective Vital Signs - Last 8 Hours Temp Pulse Resp BP Pulse Ox 10/10/17 07:20 97.8 F 61 15 112/72 95 10/10/17 04:10 97.8 F 64 16 101/68 93 Intake and Output 10/09/17 10/10/17 10/10/17 23:59 07:59 15:59 Intake Total 240 / 240 360 / 360 Output Total 300 / 300 Balance -60 / -60 360 / 360 Intake: Oral 240 / 240 360 / 360 Output: Urine 300 / 300 Other: Meal Dinner Breakfast Percent of Meal Consumed 100% 100% Weight 124.3 kg Blood Glucose* 164 104 Patient Weight 10/10/17 23:59 Weight 124.3 kg - General physical appearance well developed, well nourished, no distress - Eyes normal ocular movement (hx of TIA, eom requires concentration to move per patient) - ENT normal mucosa - Neck Neck exam: no masses, no lymphadectomy - Respiratory normal respiratory effort, clear to auscultation - Abdomen Abdomen: Present: soft. Absent: distended, guarding, rigid - Musculoskeletal other (wheelchair as means of locomotion) - Psychiatric oriented to time, oriented to person, oriented to place - Labs 10/10/17 04:07 10/10/17 04:07 Diabetes panel 10/09/17 10/10/17 Range/Units 09:14 04:07 Sodium 133 L 135 L (136-145) mEq/L Potassium 3.7 3.7 (3.5-5.1) mEq/L Chloride 98 101 (98-107) mEq/L Carbon Dioxide 25 26 (23-29) mEq/L BUN 26 H 26 H (8-23) mg/dL Creatinine 1.53 H 1.34 H (0.70-1.30) mg/dL Glucose 156 H 96 (70-105) mg/dL Calcium 9.4 8.9 (8.6-10.3) mg/dL AST 15 (13-39) Units/L ALT 23 (7-52) Units/L Alkaline Phosphatase 83 (34-104) Units/L Albumin 3.6 (3.5-5.7) g/dL Calcium panel 10/09/17 10/10/17 Range/Units 09:14 04:07 Calcium 9.4 8.9 (8.6-10.3) mg/dL Albumin 3.6 (3.5-5.7) g/dL Pituitary panel 10/09/17 10/10/17 Range/Units 09:14 04:07 Sodium 133 L 135 L (136-145) mEq/L Potassium 3.7 3.7 (3.5-5.1) mEq/L Chloride 98 101 (98-107) mEq/L Carbon Dioxide 25 26 (23-29) mEq/L BUN 26 H 26 H (8-23) mg/dL Creatinine 1.53 H 1.34 H (0.70-1.30) mg/dL Glucose 156 H 96 (70-105) mg/dL Calcium 9.4 8.9 (8.6-10.3) mg/dL Adrenal panel 10/09/17 10/10/17 Range/Units 09:14 04:07 Sodium 133 L 135 L (136-145) mEq/L Potassium 3.7 3.7 (3.5-5.1) mEq/L Chloride 98 101 (98-107) mEq/L Carbon Dioxide 25 26 (23-29) mEq/L BUN 26 H 26 H (8-23) mg/dL Creatinine 1.53 H 1.34 H (0.70-1.30) mg/dL Glucose 156 H 96 (70-105) mg/dL Calcium 9.4 8.9 (8.6-10.3) mg/dL Total Bilirubin 0.3 (0.3-1.0) mg/dL AST 15 (13-39) Units/L ALT 23 (7-52) Units/L Alkaline Phosphatase 83 (34-104) Units/L Albumin 3.6 (3.5-5.7) g/dL Consult Discharge Plan - Plan Referrals: Krish-Edda Banda DO [Primary Care Provider] -
[2017-10-10] MEDS: STIOLTO RESPIMAT IH SCH (09:21)
[2017-10-10] MEDS: LUBIPROSTONE 8 MCG PO SCH ×2 (09:21→20:33)
[2017-10-10] MEDS: Budesonide/Formoterol 80/4.5 MDI IH SCH ×2 (10:14→19:53)
[2017-10-10] MEDS: Metoprolol XL (24 HR) Succ 25 MG TAB.ER.24H PO SCH (17:40)
--- NOTE | 2017-10-10 18:10 | Internal Med Progress Note ---
Date of Encounter: 10/10/17 Time of Encounter: 11:05 - Assessment and plan (1) Chronic respiratory failure with hypoxia Current Visit: Yes Status: Resolved Assessment and plan: COPD and chronic CHF with chronic 02 use. Patient is on room air at this time. O2 as needed to maintain sats greater than 92%. (2) Cerebrovascular accident Current Visit: Yes Status: Chronic Assessment and plan: Chronic. No new deficits. Continue aspirin and statin. Qualifiers: CVA mechanism: embolism Precerebral and cerebral artery: unspecified cerebral artery Qualified Code(s): I63.40 - Cerebral infarction due to embolism of unspecified cerebral artery (3) Anxiety Current Visit: Yes Status: Chronic Assessment and plan: Chronic. Well controlled hospital. Continue home medications. (4) Depression Current Visit: Yes Status: Chronic Assessment and plan: Chronic. Continue home medications. Qualifiers: Depression Type: major depressive disorder Major depression recurrence: recurrent Active/Remission status: in full remission Qualified Code(s): F33.42 - Major depressive disorder, recurrent, in full remission (5) CAD in n[place] artery Current Visit: Yes Status: Chronic Assessment and plan: Chronic. Continue telemetry. Continue aspirin, amiodarone, Lipitor, beta brisa. (6) Pacemaker Current Visit: Yes Status: Chronic Assessment and plan: Chronic. Continue telemetry. (7) Atrial fibrillation Current Visit: Yes Status: Chronic Assessment and plan: ate controlled. Continue beta brisa, 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 has been held for surgery. Restart after surgery. Qualifiers: Atrial fibrillation type: paroxysmal Qualified Code(s): I48.0 - Paroxysmal atrial fibrillation (8) COPD (chronic obstructive pulmonary disease) Current Visit: Yes Status: Chronic Assessment and plan: No acute exacerbation. Lungs are clear and diminished throughout. Patient is in no distress, he is on room air. Continue home medications. Continue telemetry. O2 as needed to maintain sats greater than 92%. Qualifiers: COPD type: unspecified COPD Qualified Code(s): J44.9 - Chronic obstructive pulmonary disease, unspecified (9) Diabetes mellitus Current Visit: Yes Status: Chronic Assessment and plan: A1c is 5.9% in July, we will redraw in the morning. Continue sliding scale insulin, Accu-Cheks before meals at bedtime, diabetic diet. Qualifiers: Diabetes mellitus type: type 2 Diabetes mellitus outbound telemarketer insulin use: without senior care use Diabetes mellitus complication status: with kidney complications Diabetes mellitus complication detail: with chronic kidney disease Chronic kidney disease stage: stage 3 (moderate) Qualified Code(s): E11.22 - Type 2 diabetes mellitus with diabetic chronic kidney disease; N18.3 - Chronic kidney disease, stage 3 (moderate); N18.3 - Chronic kidney disease, stage 3 (moderate) (10) GERD (gastroesophageal reflux disease) Current Visit: Yes Status: Chronic Assessment and plan: c chronic. Patient denies symptoms. Continue EPI. Qualifiers: Esophagitis presence: esophagitis presence not specified Qualified Code(s) : K21.9 - Gastro-esophageal reflux disease without esophagitis (11) HTN (hypertension) Current Visit: Yes Status: Chronic Assessment and plan: Chronic. Well controlled. Continue home medications. Qualifiers: Hypertension type: essential hypertension Qualified Code(s): I10 - Essential (primary) hypertension (12) HLD (hyperlipidemia) Current Visit: Yes Status: Chronic Assessment and plan: Continue home dose of statin.. Qualifiers: Hyperlipidemia type: unspecified Qualified Code(s): E78.5 - Hyperlipidemia , unspecified (13) CHF (congestive heart failure) Current Visit: Yes Status: Chronic Assessment and plan: Methotrexate, IV fluids have been held. Diuretics have been held due to renal function. Hold IV fluids. Hold current diuretics. Fluid restrictions to 1.5 L a day Daily weight Strict I's and O's. Continue telemetry Qualifiers: Qualified Code(s): I50.32 - Chronic diastolic (congestive) heart failure (14) Obesity (BMI 30-39.9) Current Visit: Yes Status: Chronic Assessment and plan: Lifestyle modifications, dietary and exercise. (15) [id number] kidney injury Current Visit: Yes Status: Acute Assessment and plan: Worsening renal function in the setting of diuretic use including Lasix and Aldactone, methotrexate for arthritis. He also has had multiple episodes of acute kidney injury, related to diuretic use and has been seen by nephrology as inpatient in the past. Hold diuretics. IV fluids have been held. Continue to monitor vital signs, intake and output. Nephrology following. Qualifiers: Acute renal failure type: unspecified Chronic kidney disease stage: stage 3 (moderate) Qualified Code(s): N17.9 - Acute kidney failure, unspecified; N18.3 - Chronic kidney disease, stage 3 (moderate); N18.3 - Chronic kidney disease, stage 3 (moderate) (16) Constipation Current Visit: Yes Status: Resolved Assessment and plan: Likely exacerbated by oxycodone. Continue MiraLAX twice daily, Colace twice daily. Qualifiers: Constipation type: slow transit constipation Qualified Code(s): K59.01 - Slow transit constipation (17) BPH (benign prostatic hyperplasia) Current Visit: Yes Status: Chronic Assessment and plan: Patient reports dysuria since admission 6 days ago. Urine is negative. Continue Proscar and Flomax. Qualifiers: Lower urinary tract symptom presence: unspecified whether lower urinary tract symptoms present Qualified Code(s): N40.0 - Benign prostatic hyperplasia without lower urinary tract symptoms (18) Cholelithiasis Current Visit: Yes Status: Acute Assessment and plan: Per surgery note plan for laparoscopic cholecystectomy 10/11/[address] Howard. Patient will be nothing by mouth after midnight. Xarelto has been held. Risks, benefits, alternatives, expected outcomes were reviewed with the patient and he is in agreement to proceed with procedure. Qualifiers: Qualified Code(s): K80.20 - Calculus of gallbladder without cholecystitis without obstruction (19) Ambulatory dysfunction Current Visit: Yes Status: Acute Assessment and plan: PT/OT recommending home health therapy at home. Patient will be discharged with both, as well as a nurse from the [facility]. - Time Spent With Patient Total time spent is greater than 50% in coordination of care (as documented) at patient's floor/unit and/or counseling patient: less than 15 minutes - Subjective Interval history: Patient was seen and assessed 11:05 AM. Patient reports that [facility], [facility] He is going to be discharged to his home where he lives with his with PT/OT/nursing from the [facility]. Patient currently reports abdominal pain right upper quadrant, 01/09. He states that he does not want to take methotrexate anymore, he said nothing but problems with this since that time. He also reports questionable hematuria and dysuria onset last Monday when he was admitted here. We will continue to investigate, urine was negative on 10/09. - Constitutional Vitals: Temp Pulse Resp BP Pulse Ox 97.8 F 64 16 108/73 93 10/10/17 15:36 10/10/17 15:36 10/10/17 15:36 10/10/17 15:36 10/10/17 15:36 General appearance: Present: cooperative, A&O X 3, pleasant, no acute distress, obese, answers questions appropriately - Head Head exam: Present: atraumatic, normal inspection, normocephalic - Eye Eye exam: Present: normal appearance, conjuntiva pink, sclera anicteric - Neck Neck exam general surgery: Present: supple, trachea midline. Absent: lymphadenopathy, tenderness - Respiratory Respiratory exam: Present: CTAB. Absent: accessory muscle use, chest wall tenderness, rales, respiratory distress, rhonchi, wheezes - Cardiovascular Cardiovascular exam: Present: RRR, +S1, +S2. Absent: diastolic murmur, gallop, rubs, systolic murmur - GI/Abdominal GI/Abdominal exam: Present: normal bowel sounds, soft. Absent: distended, hepatomegaly, tenderness - Extremities Exam Extremities exam: Present: normal capillary refill, normal inspection, pedal edema, warm, radial pulses palpable and symmetrical. Absent: calf tenderness, cyanotic, tenderness - Neurological Exam Neurological exam: Present: alert, oriented X3, no focal deficits. Absent: facial droop, speech deficit - Skin Skin exam: Present: dry, intact, normal color, warm. Absent: rash Internal Medicine: Result - Labs CBC & Chem 7: 10/10/17 04:07 10/10/17 04:07 Labs: Short CBC 10/10/17 Range/Units 04:07 WBC 8.5 (4.3-11.1) K/mcL Hgb 13.6 (12.9-16.9) g/dL Hct 41.9 (37.5-50.1) % Plt Count 260 (140-400) K/mcL BMP 10/09/17 10/10/17 09:14 04:07 Sodium 135 L Potassium 3.7 Chloride 101 Carbon Dioxide 25 26 BUN 26 H Creatinine 1.34 H Glucose 96 Calcium 8.9 Liver Function 10/10/17 Range/Units 04:07 Total Bilirubin 0.3 (0.3-1.0) mg/dL Direct Bilirubin 0.2 (0.0-0.2) mg/dL AST 15 (13-39) Units/L ALT 23 (7-52) Units/L Alkaline Phosphatase 83 (34-104) Units/L Albumin 3.6 (3.5-5.7) g/dL Urine 10/09/17 Range/Units 17:20 Urine Color Yellow (Yellow) Urine Clarity Clear (Clear) Urine pH 6.0 (5.0-8.0) pH Units Ur Specific Amery 1.020 (1.010-1.025) Urine Protein Negative (Neg-Trace) mg/dL Urine Glucose (UA) Normal (Normal) mg/dL Consult Discharge Plan - Plan Referrals: Krish-Edda Banda DO [Primary Care Provider] -
--- NOTE | 2017-10-10 19:16 | Anesthesia Evaluation PreOp ---
Date of Encounter: 10/10/17 Time of Encounter: 19:14 - Past History Planned Operation: Laparoscopic Cholecystectomy Cardiac History: CHF, HTN, Hyperlipidemia, Arrhythmia (paroxysmal A-Fib), Pacemaker/ICD (medtronic pacemaker), Other (H/O PE) Pulmonary History: Former smoker (quit in 2009,smoked for 38 years), COPD (O2 prn) BLOW MOLDER History: CVA (residual RUE/RLE weakness and left eye vision changes), TIA Other Medical History: Renal (CKD stage 3), Diabetes Type II, GERD Anesthesia History: No Prior Anesthetic Complications, Past Anesthesia Alcohol Use: none Drug use: none Medications and Allergies Aspirin Enteric Coated [Aspirin EC] 81 mg PO DAILY #0 04/09/15 [History] Rivaroxaban [Xarelto] 20 mg PO DAILY #0 04/09/15 [History] Albuterol Sulfate [Proair Hfa] 2 puff IH Q4H PRN 12/14/16 [History] Atorvastatin [Lipitor] 40 mg PO HS 12/14/16 [History] Gabapentin [Neurontin] 400 mg PO BID 12/14/16 [History] Pantoprazole Sodium [Protonix] 40 mg PO DAILY 12/14/16 [History] Polyethylene Glycol 3350 [MiraLAX Powder Bulk 17.9 Oz] 17 gm PO DAILY PRN [History] Sennosides/Docusate Sodium [Senna-Docusate Sodium Tablet] 1 tab PO BID PRN 12/14 [History] Tizanidine HCl [Zanaflex] 2 mg PO BID 12/14/16 [History] DULoxetine [Cymbalta] 30 mg PO DAILY 02/14/17 [History] Tamsulosin [Flomax] 0.4 mg PO BID 02/14/17 [History] OxyCODONE Immed Rel [Roxicodone 10 MG] 10 mg PO QID PRN 05/27/17 [History] Amiodarone [Cordarone] 200 mg PO DAILY 07/05/17 [History] Capsaicin [Arthritis Pain Relief] 1 appl TP BID PRN 07/05/17 [History] Finasteride [Proscar] 5 mg PO DAILY 07/05/17 [History] Furosemide [Lasix] 40 mg PO BID 07/05/17 [History] Lidocaine 4% CRM (LMX) [Lmx 4] 1 appl TP TID 07/05/17 [History] Memantine HCl 10 mg PO BID 07/05/17 [History] Tiotropium Br/Olodaterol HCl [Stiolto Respimat Inhal [place]] 2 puff IH DAILY 11/17 [History] metOLazone [Zaroxolyn] 2.5 mg PO BID 07/20/17 [History] Cholecalciferol (D-3) [Vitamin D] 2,000 unit PO DAILY 10/04/17 [History] Eucerin Creme 1 appl TP QID PRN 10/04/17 [History] Fluticasone Propionate Nasal [Flonase] 100 mcg NS DAILY 10/04/17 [History] Fluticasone/Salmeterol [Advair 250-50 Diskus] 1 each IH BID 10/04/17 [History] LORazepam [Ativan] 0.5 mg PO HS 10/04/17 [History] Lubiprostone [Amitiza] 8 mcg PO BID 10/04/17 [History] Melatonin [Melatin] 9 mg PO HS 10/04/17 [History] Methotrexate [Otrexup] 10 mg PO TH 10/04/17 [History] Metoprolol XL (24 HR) Succ [Toprol XL] 12.5 mg PO QPM 10/04/17 [History] Spironolactone [Aldactone] 100 mg PO DAILY 10/04/17 [History] Trazodone HCl 200 mg PO HS 10/04/17 [History] 3 Allergy/AdvReac Type Severity Reaction Status Date / Time IVP DYE Allergy Anaphylaxis Uncoded 10/04/17 13:23 - Meds/Allergy Pre-op Review Medications Reviewed: Yes Allergies Reviewed: Yes Beta Blockers on Current Med List: Yes If Beta Blockers taken, Date/Time (Last Dose taken): 10/10/2017 at 1740 Anesthesia Results - Labs 10/10/17 04:07 10/10/17 04:07 - Imaging EKG: report reviewed (07/20/2017 ELECTRONIC ATRIAL PACEMAKER NONSPECIFIC T-WAVE ABNORMALITY) Additional studies: 07/08/2017 Cath Impressions: Coronary arteries are angiographically normal. Tortuous right subclavian Prior history of ventricular fibrillation arrest during/after right coronary angiography Uncertain IV dye allergy history, premedicated with prednisone and benadryl CKD 3 Recommendations: Optimal medical therapy of patient's disease. Aggressive risk factor modification. IV hydration with NS post procedure 07/05/2017 Echo Impressions: LVEF 55%. Despite the use of contrast, not all LV segments were well visualized. Overall, LV segmental function appears normal. Normal LV chamber size and wall thickness. Mild left ventricular diastolic dysfunction. Grossly normal right ventricular structure and function. No evidence of pulmonary hypertension. A device lead was visualized in the right atrium and right ventricle. No obvious significant valvular dysfunction. 12/02/2015 Stress Impression: Pharmacologic stress ECG is negative for ischemia at level of heart rate achieved. Gated EF = 70%. Perfusion imaging was negative for ischemia or infarct. Anesthesia Exam Vital Signs/O2 Sat/Glucose, Most Recent Temp Pulse Resp BP Pulse Ox 97.8 F 64 16 108/73 93 10/10/17 15:36 10/10/17 15:36 10/10/17 15:36 10/10/17 15:36 10/10/17 15:36 Blood Glucose* 100 Height: 6'2''/1.88 m Weight: 274 lbs/124 kg Pain Scale: 0 Pain Scale Used: Numeric (1 - 10) - HEENT Pupil (Motor): EOMI Mallampati: III Teeth: Edentulous Oral Opening: Greater than 3 - BLOW MOLDER LOC: Oriented BLOW MOLDER Motor: Normal LUE, Normal LLE, Normal Face, Deficit RUE, Deficit RLE BLOW MOLDER Sensory: Normal: Face, Deficit: RUE (neuropathy), LUE (neuropathy), RLE ( neuropathy), LLE (neuropathy) - Cardiac Rhythm: Regular Murmur: None - Pulmonary Breath Sounds: bilateral Clear Respiratory Effort: Symmetrical Anesthesia Assess/Plan ASA Score: 3 Modified Vita Scale for Level of Consciousness: Cooperative, oriented, and tranquil Anesthetic Plan: General Monitoring Plan: Standard Monitors Recovery Plan: PACU
[2017-10-10] MEDS: Melatonin 3 MG TABLET PO SCH (20:32)
[2017-10-10] MEDS: *HR* LORazepam 0.5 MG TABLET PO SCH (20:32)
[2017-10-10] MEDS: traZODone 50 MG TABLET PO SCH (20:32)
[2017-10-11 05:52] LABS: Basophils # 0.1 K/mcL (0.0-0.2); Basophils % 0.6 %; Eosinophils # 0.5 K/mcL (0.0-0.6); Eosinophils % 6.6 %; Hemoglobin 13.2 g/dL (12.9-16.9); Immature Granulocytes % 0.5 % (0-4); Lymphocytes # 1.1 K/mcL (0.6-4.6); Lymphocytes % 14.2 %; Mean Corpuscular Hemoglobin 29.6 pg (28.0-33.3); Mean Corpuscular Volume 89.7 fL (83.0-100.0); Mean Platelet Volume 9.7 fL (9.4-12.4); Monocytes # 1.1 K/mcL (0.0-1.3); Monocytes % 13.9 %; Platelet Count 262 K/mcL (140-400); Red Blood Count 4.46 M/mcL (4.19-5.50); Red Cell Distribution Width 16.5 % (11.5-14.5); Segmented Neutrophils % 64.2 %
[2017-10-11] MEDS: *HR* OxyCODONE Immed Rel 5 MG TABLET PO PRN ×2 (06:01→14:04)
[2017-10-11 07:06] LABS: BUN/Creatinine Ratio 16 (6-26); Blood Urea Nitrogen 22 mg/dL (8-23); Calcium 8.4 mg/dL (8.6-10.3); Carbon Dioxide 27 mEq/L (23-29); Chloride 102 mEq/L (98-107); Glucose 119 mg/dL (70-105); Osmolality,Calculated 286 (280-300); Potassium 3.4 mEq/L (3.5-5.1); Sodium 136 mEq/L (136-145); eGFR For African Americans > 60 (> 60); eGFR For Non-African Americans 51 (> 60)
[2017-10-11] MEDS: Budesonide/Formoterol 80/4.5 MDI IH SCH ×2 (08:00→21:53)
[2017-10-11] MEDS: Insulin LISPRO 300 UNITS/3 ML VIAL SQ SCH ×4 (08:07→23:40)
[2017-10-11] MEDS: Finasteride 5 MG TABLET PO SCH (09:20)
[2017-10-11] MEDS: *HR* Amiodarone 200 MG TABLET PO SCH (09:20)
[2017-10-11] MEDS: Aspirin Enteric Coated 81 MG Tablet PO SCH (09:20)
[2017-10-11] MEDS: LUBIPROSTONE 8 MCG PO SCH ×2 (09:21→23:39)
[2017-10-11] MEDS: STIOLTO RESPIMAT IH SCH (09:21)
[2017-10-11] MEDS: Fluticasone Propionate Nasal 50 MCG/SPRAY BOTTLE NS SCH (09:21)
--- NOTE | 2017-10-11 12:53 | Nephrology Progress Note ---
Date of Encounter: 10/11/17 Time of Encounter: 12:52 - Assessment and Plan (1) [id number] kidney injury Current Visit: Yes Status: Acute Renal function improving. Avoid nephrotoxins. Adjust medications for renal function. Qualifiers: Acute renal failure type: unspecified Chronic kidney disease stage: stage 3 (moderate) Qualified Code(s): N17.9 - Acute kidney failure, unspecified; N18.3 - Chronic kidney disease, stage 3 (moderate); N18.3 - Chronic kidney disease, stage 3 (moderate) Subjective Principal diagnosis: AG Interval history: Patient seen. No new complaint. He doesn't feel better or worse than upon admission. He is working with physical therapy at the time my evaluation. Objective - Vital Signs Vital signs: Vital Signs Temp Pulse Resp BP Pulse Ox 10/11/17 10:27 97.5 F L 72 15 117/81 93 10/11/17 09:20 97 10/11/17 08:00 16 97 10/11/17 07:00 98 F 60 15 111/73 95 10/11/17 03:57 98.1 F 62 16 95/62 93 10/10/17 23:34 97.8 F 68 16 103/70 92 10/10/17 19:57 97.5 F L 70 18 123/79 94 10/10/17 19:53 18 94 10/10/17 15:36 97.8 F 64 16 108/73 93 Intake and Output 10/10/17 10/11/17 10/11/17 23:59 07:59 15:59 Output Total 475 / 475 Balance -475 / -475 Output: Urine 475 / 475 Other: Meal NPO Weight 125.7 kg Blood Glucose* 120 129 110 Patient Weight 10/11/17 23:59 Weight 125.7 kg - General Appearance General appearance: Present: well-developed, well-nourished EENT: Present: ATNC Cardiology: Present: regular rate - Lab 10/11/17 03:54 10/11/17 03:54 Most recent lab results Calcium 8.4 mg/dL (8.6-10.3) L 10/11/17 03:54 Magnesium 2.1 mg/dL (1.6-2.6) 10/05/17 07:54 Urine Creatinine 103 mg/dL 10/05/17 16:00 Urine Sodium 58.2 mEq/L 10/05/17 16:00 Urine Total Protein 6 mg/dL (1-14) 10/05/17 16:00 Consult Discharge Plan - Plan Referrals: Krish-Edda Banda DO [Primary Care Provider] -
--- NOTE | 2017-10-11 15:23 | Internal Med Progress Note ---
Date of Encounter: 10/11/17 Time of Encounter: 12:35 - Assessment and plan (1) Chronic respiratory failure with hypoxia Current Visit: Yes Status: Resolved Assessment and plan: COPD and chronic CHF with chronic home 02 use. Patient is at baseline use of 2L via nasal canula. Continue O2 as needed to maintain sats greater than 92%. (2) Cerebrovascular accident Current Visit: Yes Status: Chronic Assessment and plan: Chronic. No new deficits. Continue aspirin and statin. 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 Qualifiers: CVA mechanism: embolism Precerebral and cerebral artery: unspecified cerebral artery Qualified Code(s): I63.40 - Cerebral infarction due to embolism of unspecified cerebral artery (3) Anxiety Current Visit: Yes Status: Chronic Assessment and plan: Chronic. Pt denies symptoms. Continue home dose of Cymbalta. (4) Depression Current Visit: Yes Status: Chronic Assessment and plan: Chronic. STable. Pt denies symptoms. Continue home medications. Qualifiers: Depression Type: major depressive disorder Major depression recurrence: recurrent Active/Remission status: in full remission Qualified Code(s): F33.42 - Major depressive disorder, recurrent, in full remission (5) CAD in [place] artery Current Visit: Yes Status: Chronic Assessment and plan: Chronic. Continue telemetry. Pt denies chest pain. Continue aspirin, amiodarone, Lipitor, beta brisa. (6) Pacemaker Current Visit: Yes Status: Chronic Assessment and plan: Chronic. Stable. Continue telemetry. (7) Atrial fibrillation Current Visit: Yes Status: Chronic Assessment and plan: Rate controlled. Continue beta brisa, 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 has been held for surgery. Restart Xarelto after surgery. Qualifiers: Atrial fibrillation type: paroxysmal Qualified Code(s): I48.0 - Paroxysmal atrial fibrillation (8) COPD (chronic obstructive pulmonary disease) Current Visit: Yes Status: Chronic Assessment and plan: No acute exacerbation. Lungs are clear and diminished throughout. Patient is in no distress. No wheezing, rales, or ronchi. Pt is currently on 2liter 02 via nasal canula. Continue home medications. Continue telemetry. O2 prn to maintain sats greater than 92%. Qualifiers: COPD type: unspecified COPD Qualified Code(s): J44.9 - Chronic obstructive pulmonary disease, unspecified (9) Diabetes mellitus Current Visit: Yes Status: Chronic Assessment and plan: A1c is 5.9% in Natalie, will attempt redraw in the morning. Continue sliding scale insulin, Accu-Cheks before meals at bedtime, diabetic diet. Qualifiers: Diabetes mellitus type: type 2 Diabetes mellitus watermelon inspector insulin use: without jail use Diabetes mellitus complication status: with kidney complications Diabetes mellitus complication detail: with chronic kidney disease Chronic kidney disease stage: stage 3 (moderate) Qualified Code(s): E11.22 - Type 2 diabetes mellitus with diabetic chronic kidney disease; N18.3 - Chronic kidney disease, stage 3 (moderate); N18.3 - Chronic kidney disease, stage 3 (moderate) (10) GERD (gastroesophageal reflux disease) Current Visit: Yes Status: Chronic Assessment and plan: Chronic. Patient denies increased symptoms despite abdominal pain. Continue PPI. Qualifiers: Esophagitis presence: esophagitis presence not specified Qualified Code(s) : K21.9 - Gastro-esophageal reflux disease without esophagitis (11) HTN (hypertension) Current Visit: Yes Status: Chronic Assessment and plan: Chronic. Well controlled. Continue home medications. Continue to monitor vitals per admission order. Qualifiers: Hypertension type: essential hypertension Qualified Code(s): I10 - Essential (primary) hypertension (12) HLD (hyperlipidemia) Current Visit: Yes Status: Chronic Assessment and plan: Chronic. Continue statin. Qualifiers: Hyperlipidemia type: unspecified Qualified Code(s): E78.5 - Hyperlipidemia , unspecified (13) CHF (congestive heart failure) Current Visit: Yes Status: Chronic Assessment and plan: Hold IV fluids. Hold current diuretics. Fluid restrictions to 1.5 L a day Patient with overall -2.5 L diuresis. I do not believe that weights are accurate. Continue Daily weight Strict I's and O's. Continue telemetry Qualifiers: Qualified Code(s): I50.32 - Chronic diastolic (congestive) heart failure (14) Obesity (BMI 30-39.9) Current Visit: Yes Status: Chronic Assessment and plan: Lifestyle modifications, encourage dietary modifications and increased exercise. (15) Vayef-gl-uzxtsve kidney injury Current Visit: Yes Status: Acute Assessment and plan: Renal function appears to stabilize 2. Serum creatinine 1.39, GFR 51. Hold diuretics. IV fluids have been held. Continue to monitor vital signs, intake and output. Nephrology following. Continue to avoid nephrotoxins, adjust medications for renal function. Qualifiers: Acute renal failure type: unspecified Chronic kidney disease stage: stage 3 (moderate) Qualified Code(s): N17.9 - Acute kidney failure, unspecified; N18.3 - Chronic kidney disease, stage 3 (moderate); N18.3 - Chronic kidney disease, stage 3 (moderate) (16) Constipation Current Visit: Yes Status: Resolved Assessment and plan: Likely caused by oxycodone. Continue MiraLAX twice daily, Colace twice daily. Encourage increased by mouth fluid intake when able. Qualifiers: Constipation type: slow transit constipation Qualified Code(s): K59.01 - Slow transit constipation (17) BPH (benign prostatic hyperplasia) Current Visit: Yes Status: Chronic Assessment and plan: Patient reports dysuria since admission 6 days ago. Urine is negative. Continue Proscar and Flomax. 10/11/17- assessment unchanged. Qualifiers: Lower urinary tract symptom presence: unspecified whether lower urinary tract symptoms present Qualified Code(s): N40.0 - Benign prostatic hyperplasia without lower urinary tract symptoms (18) Cholelithiasis Current Visit: Yes Status: Acute Assessment and plan: Plan for laparoscopic cholecystectomy today with Dr. Nye. Patient has been NPO since midnight. Xarelto has been held. Risks, benefits, alternatives, expected outcomes were reviewed with the patient and he is in agreement to proceed with procedure. Qualifiers: Cholelithiasis location: other site Biliary obstruction: without biliary obstruction Qualified Code(s): K80.80 - Other cholelithiasis without obstruction (19) Ambulatory dysfunction Current Visit: Yes Status: Chronic Assessment and plan: PT/OT recommending home health therapy at home. Continue PT while in hospital. Patient will be discharged to home with both, as well as a nurse from the [facility]. He is refusing to return to the [facility]. - Time Spent With Patient Total time spent is greater than 50% in coordination of care (as documented) at patient's floor/unit and/or counseling patient: less than 15 minutes - Subjective Interval history: Patient was seen and assessed 1235 AM. Patient currently reports abdominal pain right upper quadrant, 02/09, but denies need for pain medication at this time. Patient is going to surgery, he is unaware of time, primary nurse does not know time either. - Constitutional Vitals: Temp Pulse Resp BP Pulse Ox 97.4 F L 68 16 127/85 100 10/11/17 14:57 10/11/17 14:57 10/11/17 14:57 10/11/17 14:57 10/11/17 14:57 General appearance: Present: cooperative, mild distress, A&O X 3, pleasant, obese, answers questions appropriately - Head Head exam: Present: atraumatic, normal inspection, normocephalic - Eye Eye exam: Present: normal appearance, conjuntiva pink, sclera anicteric - Neck Neck exam general surgery: Present: supple, trachea midline. Absent: lymphadenopathy, tenderness - Respiratory Respiratory exam: Present: chest wall tenderness, CTAB. Absent: accessory muscle use, rales, respiratory distress, rhonchi, wheezes - Cardiovascular Cardiovascular exam: Present: RRR, +S1, +S2. Absent: diastolic murmur, gallop, rubs, systolic murmur - GI/Abdominal GI/Abdominal exam: Present: distended, normal bowel sounds, soft, tenderness. Absent: hepatomegaly - Extremities Exam Extremities exam: Present: pedal edema, warm, radial pulses palpable and symmetrical. Absent: calf tenderness, cyanotic, normal inspection, tenderness - Neurological Exam Neurological exam: Present: alert, oriented X3, no focal deficits, pronater drift. Absent: facial droop, speech deficit - Skin Skin exam: Present: dry, intact, normal color, warm. Absent: rash Internal Medicine: Result - Labs CBC & Chem 7: 10/11/17 03:54 10/11/17 03:54 Labs: Short CBC 10/11/17 Range/Units 03:54 WBC 7.8 (4.3-11.1) K/mcL Hgb 13.2 (12.9-16.9) g/dL Hct 40.0 (37.5-50.1) % Plt Count 262 (140-400) K/mcL Neutrophils # 5.0 (1.6-8.9) K/mcL BMP 10/11/17 03:54 Sodium 136 Potassium 3.4 L Chloride 102 Carbon Dioxide 27 BUN 22 Creatinine 1.39 H Glucose 119 H Calcium 8.4 L Consult Discharge Plan - Plan Referrals: Krish-Edda Banda DO [Primary Care Provider] -
[2017-10-11] MEDS: Metoprolol XL (24 HR) Succ 25 MG TAB.ER.24H PO SCH (17:49)
[2017-10-11] MEDS ORDERED: Lidocaine -MPF 2% 2 ML VIAL ONE ×2 (18:41→20:31)
[2017-10-11] MEDS ORDERED: Lidocaine -MPF 4% 5 ML AMPUL ONE (20:31)
[2017-10-11] MEDS ORDERED: *HR* Rocuronium Bromide 50 MG/5 ML VIAL ONE (20:31)
[2017-10-11] MEDS ORDERED: *HR* FentaNYL (PF) 100 MCG/2 ML VIAL ONE ×2 (20:31→21:24)
[2017-10-11] MEDS ORDERED: *HR* Propofol 200 MG/20 ML VIAL IVP ONE (20:31)
[2017-10-11] MEDS ORDERED: Isovue-300 50 ML VIAL IVP ONE (20:34)
[2017-10-11] MEDS ORDERED: CefOXitin 2,000 MG VIAL ONE (21:04)
[2017-10-11] MEDS ORDERED: Ondansetron 4 MG/2 ML VIAL ONE (21:10)
[2017-10-11] MEDS ORDERED: Dexamethasone 4 MG/ML VIAL ONE (21:10)
[2017-10-11] MEDS ORDERED: Neostigmine Methylsulfate 3 MG/3 ML SYRINGE ONE (21:12)
[2017-10-11] MEDS ORDERED: Acetaminophen IV 1,000 MG/100 ML INFUS..BTL IVPB ONE (21:42)
[2017-10-11] MEDS ORDERED: *HR* OxyCODONE Immed Rel 5 MG TABLET PO PRN (21:54)
--- NOTE | 2017-10-11 22:26 | Anesthesia Evaluation Post Op ---
Date of Encounter: 10/11/17 Time of Encounter: 22:25 - Vital Signs Vital Signs: Vital Signs/O2 Sat/Glucose, Most Recent Temp Pulse Resp BP Pulse Ox 97.3 F L 64 16 132/82 99 10/11/17 22:06 10/11/17 22:16 10/11/17 22:16 10/11/17 22:16 10/11/17 22:16 Blood Glucose* 102 - Lungs Lungs: Clear Ascult./Percussion - Airway Airway: Non-obstructed - Cardiovascular Regular Rate - Mental Status Mental Status: Alert & Oriented, Answers Appropriately - Pain Pain Scale: 5 Pain Scale used: Numeric (1 - 10) - Nausea Vomiting Nausea Vomiting: Not Present - Hydration Hydration: Ice chips, Has not voided - Discharge PostOp Status: Transfer Patient to floor
[2017-10-11] MEDS ORDERED: D5% in Water 1,000 ML IVC PRN (22:31)
[2017-10-11] MEDS ORDERED: Ipratropium/Albuterol Neb 3 ML IH PRN (22:31)
[2017-10-11] MEDS ORDERED: Acetaminophen 325 MG TABLET PO PRN (22:31)
[2017-10-11] MEDS ORDERED: *HR* Dextrose 50 % in Water (Syg) 50 ML SYRINGE IVP PRN (22:31)
[2017-10-11] MEDS ORDERED: Lactulose Oral Soln 20 GM/30 ML UDC PO PRN (22:31)
[2017-10-11] MEDS ORDERED: Dextrose Gel 15 GM/37.5 ML TUBE PO PRN ×2 (22:31)
[2017-10-11] MEDS ORDERED: Naloxone 0.4 MG/ML INJ IVP PRN (22:31)
[2017-10-11] MEDS ORDERED: Sennosides/Docusate Sodium TABLET PO PRN (22:31)
[2017-10-11] MEDS: traZODone 50 MG TABLET PO SCH (23:38)
[2017-10-11] MEDS: Melatonin 3 MG TABLET PO SCH (23:39)
[2017-10-11] MEDS: *HR* LORazepam 0.5 MG TABLET PO SCH (23:40)
[2017-10-12] MEDS: *HR* OxyCODONE Immed Rel 5 MG TABLET PO PRN ×3 (04:26→17:44)
[2017-10-12 07:17] LABS: Basophils % 0.1 %; Hematocrit 44.2 % (37.5-50.1); Hemoglobin 14.5 g/dL (12.9-16.9); Immature Granulocytes % 0.6 % (0-4); Lymphocytes # 0.4 K/mcL (0.6-4.6); Lymphocytes % 4.4 %; Mean Corpuscular HGB Conc 32.8 g/dL (31.6-35.5); Mean Corpuscular Hemoglobin 29.5 pg (28.0-33.3); Mean Corpuscular Volume 89.8 fL (83.0-100.0); Mean Platelet Volume 9.3 fL (9.4-12.4); Monocytes # 0.4 K/mcL (0.0-1.3); Monocytes % 4.5 %; Neutrophils # 7.4 K/mcL (1.6-8.9); Platelet Count 254 K/mcL (140-400); Red Blood Count 4.92 M/mcL (4.19-5.50); Red Cell Distribution Width 16.6 % (11.5-14.5); Segmented Neutrophils % 90.4 %
[2017-10-12] MEDS: Budesonide/Formoterol 80/4.5 MDI IH SCH ×2 (07:32→20:30)
[2017-10-12 07:39] LABS: BUN/Creatinine Ratio 19 (6-26); Blood Urea Nitrogen 21 mg/dL (8-23); Calcium 9.4 mg/dL (8.6-10.3); Carbon Dioxide 25 mEq/L (23-29); Chloride 104 mEq/L (98-107); Glucose 127 mg/dL (70-105); Osmolality,Calculated 283 (280-300); Potassium 4.7 mEq/L (3.5-5.1); Sodium 134 mEq/L (136-145); eGFR For African Americans > 60 (> 60); eGFR For Non-African Americans > 60 (> 60)
[2017-10-12] MEDS: Insulin LISPRO 300 UNITS/3 ML VIAL SQ SCH ×4 (07:50→21:55)
--- NOTE | 2017-10-12 09:10 | General Surgery Progress Note ---
Date of Encounter: 10/12/17 Time of Encounter: 07:50 - Assessment and Plan (1) Symptomatic cholelithiasis Current Visit: Yes Status: Acute POD1 lab rhett with Dr. Nye Holding Geereldamián for 72h Pt complaining of spasmodic abdominal pain ordering hepatic panel to investigate possible retained stone. VSS, normal basic chemistries, no evidence of acute abdomen Will also trial lidocaine patch, continue pt xanaflex, continue oxycodone 10mg (2) Pacemaker Current Visit: Yes Status: Chronic Placed 2010 in setting of afib with sick sinus syndrome Chronic condition, no recent exertional dyspnea or chest discomfort (3) Chronic respiratory failure with hypoxia Current Visit: Yes Status: Resolved Not in acute exacerbation, 2L O2 at home prn, saturating well on room air, uses wheelchair as main form of ambulation (4) CKD (chronic kidney disease) stage 3, GFR 30-59 ml/min Current Visit: No Status: Chronic Creatinine improved at 1.11, baseline 1.5 Subjective Narrative: Patient seen and evaluated at bedside. He denies fevers or abdominal distension/ rigidity but has a spasmodic pain localized to the R. He reports mild distress due to this pain. He denies fevers, chest pain, or shortness of breath. Objective Vital Signs - Last 8 Hours Temp Pulse Resp BP Pulse Ox 10/12/17 07:26 97.8 F 66 17 126/80 94 10/12/17 03:10 98 F 74 17 115/79 94 10/12/17 01:56 98.0 F 68 16 103/71 95 Intake and Output 10/11/17 10/12/17 10/12/17 23:59 07:59 15:59 Intake Total 100 / 100 120 / 120 Output Total 5 / 5 Balance 95 / 95 120 / 120 Intake: IV Fluids 100 / 100 Ofirmev 1,000 mg/100 ml 1,000 100 / 100 mg In 100 ml @ 400 mls/hr IVPB ONCE ONE Rx#:[id number] Oral 120 / 120 Output: Estimated Blood Loss 5 / 5 Other: Blood Glucose* 102 107 - General physical appearance well developed, well nourished - Eyes normal ocular movement - ENT normal mucosa - Neck Neck exam: no venous distension - Respiratory normal expansion, clear to auscultation - Cardiovascular Cardiovascular exam: Present: RRR. Absent: JVD - Abdomen Abdomen: Present: soft, tender. Absent: distended, rigid - Psychiatric oriented to time, oriented to person, memory intact - Labs 10/12/17 06:49 10/12/17 06:49 Diabetes panel 10/12/17 Range/Units 06:49 Sodium 134 L (136-145) mEq/L Potassium 4.7 (3.5-5.1) mEq/L Chloride 104 (98-107) mEq/L Carbon Dioxide 25 (23-29) mEq/L BUN 21 (8-23) mg/dL Creatinine 1.11 (0.70-1.30) mg/dL Glucose 127 H (70-105) mg/dL Calcium 9.4 (8.6-10.3) mg/dL Calcium panel 10/12/17 Range/Units 06:49 Calcium 9.4 (8.6-10.3) mg/dL Pituitary panel 10/12/17 Range/Units 06:49 Sodium 134 L (136-145) mEq/L Potassium 4.7 (3.5-5.1) mEq/L Chloride 104 (98-107) mEq/L Carbon Dioxide 25 (23-29) mEq/L BUN 21 (8-23) mg/dL Creatinine 1.11 (0.70-1.30) mg/dL Glucose 127 H (70-105) mg/dL Calcium 9.4 (8.6-10.3) mg/dL Adrenal panel 10/12/17 Range/Units 06:49 Sodium 134 L (136-145) mEq/L Potassium 4.7 (3.5-5.1) mEq/L Chloride 104 (98-107) mEq/L Carbon Dioxide 25 (23-29) mEq/L BUN 21 (8-23) mg/dL Creatinine 1.11 (0.70-1.30) mg/dL Glucose 127 H (70-105) mg/dL Calcium 9.4 (8.6-10.3) mg/dL - VTE Documentation of Mechanical Device: Intermittent pneumatic compression device Consult Discharge Plan - Plan Referrals: Krish-Edda Banda DO [Primary Care Provider] -
[2017-10-12] MEDS: Aspirin Enteric Coated 81 MG Tablet PO SCH (09:16)
[2017-10-12] MEDS: *HR* Amiodarone 200 MG TABLET PO SCH (09:18)
[2017-10-12] MEDS: Fluticasone Propionate Nasal 50 MCG/SPRAY BOTTLE NS SCH (09:20)
[2017-10-12] MEDS: Finasteride 5 MG TABLET PO SCH (09:23)
[2017-10-12] MEDS: LUBIPROSTONE 8 MCG PO SCH ×2 (09:27→21:35)
[2017-10-12] MEDS: STIOLTO RESPIMAT IH SCH (09:28)
[2017-10-12] MEDS ORDERED: Acetaminophen IV 1,000 MG/100 ML INFUS..BTL IVPB ONE (11:15)
[2017-10-12] MEDS ORDERED: OXYCODONE Oral CONC 10 MG/0.5 ML ORAL.SYG SL PRN ×2 (11:17→11:19)
[2017-10-12] MEDS: tiZANidine 4 MG TABLET PO SCH ×2 (12:34→21:37)
--- NOTE | 2017-10-12 13:14 | Operative Note ---
Date of procedure: 10/11/17 Pre-op diagnosis: Cholecystitis Post-op diagnosis: same Procedure: Laboratory cholecystectomy Anesthesia: JEFF Surgeon: Santos Nye Was there an child center assistant present: No Estimated blood loss (cc): 100 Specimen: Gallbladder Condition: stable Disposition: floor Procedure in Detail: After informed consent the patient was taken to the operating room. After adequate sedation anesthesia the abdomen was prepped and draped. A proper timeout was performed. Two towel clamps to place the umbilicus. A varies needle was placed at the umbilicus and a pneumo-peritoneum was created. A 12 mm incision was made at the umbilicus and a port was placed under direct visualization. An 5 mm incision was created in the left upper quadrant, followed by one in the right upper quadrant. There were 2 individual 5 mm cannulas then placed in the RUQ. A alligator clamp was then placed on the gallbladder was retracted anteriorly and cephalad. The infundibulum of the gallbladder was identified and the cystic duct was skeletonized. Once the structures were identified the cystic duct was clipped twice proximally and once distally. Cystic duct was then transected. The gallbladder was then resected off the liver surface. Once the gallbladder was fully resected from the liver surface, the liver was gently irrigated and suctioned dry. We ensured hemostasis prior to removing the gallbladder through the umbilical port. Pneumoperitoneum was then evacuated. The 12 mm cannula site was closed with a 0-Vicryl suture in [id number] fashion. The port sites were injected with half percent Marcaine 30 mL. The skin was closed with 4-0 Vicryl suture and Dermabond. All instrument counts and needle counts were correct at the end of the case. The pt was taken to recovery in stable condition.
[2017-10-12 13:35] LABS: Albumin 3.9 g/dL (3.5-5.7); Albumin/Globulin Ratio 1.4 (1.1-2.2); Bilirubin,Direct 0.2 mg/dL (0.0-0.2); Bilirubin,Indirect 0.3 mg/dL (0.0-1.2); Bilirubin,Total 0.5 mg/dL (0.3-1.0); Globulin 2.8 g/dL (2.4-3.5); Total Protein 6.7 g/dL (6.4-8.9)
--- NOTE | 2017-10-12 14:12 | Event Note ---
Date of Encounter: 10/12/17 Time of Encounter: 14:14 Labs negative for concern for retained stone. Pt states medication changes and getting out of bed were helpful. May advance diet as tolerated. Recommend continued use of miralax given constipation history. Pt may continue home medications. No home narcotic prescription given due to patient is on oxycodone immediate release TID for chronic pain. Patient may continue this medication and use supplemental Tylenol if needed for discomfort. Surgery will sign off at this time. Thank you for allowing us to participate in Mr. Issa's care. Please reconsult if any questions or needs arise. - Patient Status Disposition: Still a Patient Condition: Fair Overall status at discharge: patient is progressing back to baseline - Discharge Instructions Instructions: Laparoscopic Cholecystectomy (DC) Follow Up With: Krish-Edda Banda DO [Primary Care Provider] - Kayla More CNP [Advanced Practice Nurse] - Additional Instructions: General Surgical Discharge Instructions 1. No pushing, pulling, or lifting greater than 15 lbs for 4 weeks (depending upon procedure). 2. You may shower beginning today, but no tub baths, soaking, or swimming for 2 weeks. 3. You may resume driving when you are off narcotics and are safe to react in a car. 4. Take your home narcotic dose for discomfort. You may take tylenol also if needed. 5. Take (Miralax) once or twice daily while taking narcotics. You may hold for loose stools. 6. Report any fevers greater than 100.5F, increase abdominal discomfort, drainage that looks like pus, increased redness or pain at the surgical site, or any vomiting. 7. Report any pain in the calves, shortness of breath, or rapid heartbeat. 8. Follow-up in the office as directed. 9. If you were prescribed antibiotics, do not stop them without talking to your provider. - Diet and Activity Activity: as per physical therapy, increase activity as tolerated Diet: advance to your usual diet
[2017-10-12] MEDS: Metoprolol XL (24 HR) Succ 25 MG TAB.ER.24H PO SCH (17:44)
--- NOTE | 2017-10-12 17:57 | Internal Med Progress Note ---
Date of Encounter: 10/12/17 Time of Encounter: 12:10 - Assessment and plan (1) Chronic respiratory failure with hypoxia Current Visit: Yes Status: Resolved Assessment and plan: COPD and chronic CHF with chronic home 02 use. Patient is at baseline 2 L by nasal cannula. Continue O2 as needed to maintain sats greater than 92%. (2) Cerebrovascular accident Current Visit: Yes Status: Chronic Assessment and plan: Chronic. Continue aspirin and statin. Continue drug abuse program coordinator for safety and falls. Up with assist only. Qualifiers: CVA mechanism: embolism Precerebral and cerebral artery: unspecified cerebral artery Qualified Code(s): I63.40 - Cerebral infarction due to embolism of unspecified cerebral artery (3) Anxiety Current Visit: Yes Status: Chronic Assessment and plan: Chronic.Continue home dose of Cymbalta. (4) Depression Current Visit: Yes Status: Chronic Assessment and plan: Chronic. Stable. Continue home medications. Qualifiers: Depression Type: major depressive disorder Major depression recurrence: recurrent Active/Remission status: in full remission Qualified Code(s): F33.42 - Major depressive disorder, recurrent, in full remission (5) CAD in [place] artery Current Visit: Yes Status: Chronic Assessment and plan: Chronic. Pt denies chest pain. Continue aspirin, amiodarone, Lipitor, beta brisa. Continue telemetry (6) Pacemaker Current Visit: Yes Status: Chronic (7) Atrial fibrillation Current Visit: Yes Status: Chronic Assessment and plan: Rate controlled. Continue beta brisa, 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 was been for surgery. Restart Xarelto after surgery. Qualifiers: Atrial fibrillation type: paroxysmal Qualified Code(s): I48.0 - Paroxysmal atrial fibrillation (8) COPD (chronic obstructive pulmonary disease) Current Visit: Yes Status: Chronic Assessment and plan: No acute exacerbation. Lungs are clear and diminished throughout. Patient is in no distress. No wheezing, rales, or ronchi. Pt is currently on 2liter 02 via nasal canula, at baseline O2 demand. Continue home medications. Continue telemetry. O2, titrate prn to maintain sats greater than 92%. Qualifiers: COPD type: unspecified COPD Qualified Code(s): J44.9 - Chronic obstructive pulmonary disease, unspecified (9) Diabetes mellitus Current Visit: Yes Status: Chronic Assessment and plan: A1c is 5.9% in July. Repeat A1c ordered and pending. Continue sliding scale insulin, Accu-Cheks before meals at bedtime, diabetic diet. 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 Continue PPI. Qualifiers: Esophagitis presence: esophagitis presence not specified Qualified Code(s) : K21.9 - Gastro-esophageal reflux disease without esophagitis (11) HTN (hypertension) Current Visit: Yes Status: Chronic Assessment and plan: Chronic. Continue home medications. Continue to monitor vitals per admission order. Qualifiers: Hypertension type: essential hypertension Qualified Code(s): I10 - Essential (primary) hypertension (12) HLD (hyperlipidemia) Current Visit: Yes Status: Chronic Assessment and plan: Chronic. Continue home dose of statin. Qualifiers: Hyperlipidemia type: unspecified Qualified Code(s): E78.5 - Hyperlipidemia , unspecified (13) CHF (congestive heart failure) Current Visit: Yes Status: Chronic Assessment and plan: Hold IV fluids. Home dose of Lasix restarted today. Pt with +2 edema to BLE. Lungs clear and diminished. Fluid restrictions to 1.5 L a day Patient with overall -2.5 L diuresis, unchanged from yesterday. I do not believe that weights are accurate. Continue Daily weight Strict I's and O's. Continue telemetry Qualifiers: Qualified Code(s): I50.32 - Chronic diastolic (congestive) heart failure (14) Obesity (BMI 30-39.9) Current Visit: Yes Status: Chronic Assessment and plan: Lifestyle modifications, encourage dietary modifications and increase in exercise. (15) Kcpgk-fi-vfkqopv kidney injury Current Visit: Yes Status: Acute Assessment and plan: Renal function back to within normal limits. Serum creatinine 1.11, GFR >60. Home dose of Lasix has been restarted. IV fluids have been held. Continue to monitor vital signs, intake and output. Nephrology following. Continue to avoid nephrotoxins, adjust medications for renal function. Qualifiers: Acute renal failure type: unspecified Chronic kidney disease stage: stage 3 (moderate) Qualified Code(s): N17.9 - Acute kidney failure, unspecified; N18.3 - Chronic kidney disease, stage 3 (moderate); N18.3 - Chronic kidney disease, stage 3 (moderate) (16) Constipation Current Visit: Yes Status: Resolved Assessment and plan: Likely caused by oxycodone. Continue MiraLAX twice daily, Colace twice daily. Encourage increased by mouth fluid intake when able. Qualifiers: Constipation type: slow transit constipation Qualified Code(s): K59.01 - Slow transit constipation (17) BPH (benign prostatic hyperplasia) Current Visit: Yes Status: Chronic Assessment and plan: Patient reports dysuria since admission 6 days ago. Urine is negative. Continue Proscar and Flomax. 10/11/17- assessment unchanged. 10/12/17- Pt denies symptoms today. Pt reported that he had not urinated in approximately 18 hours, bladder scan showed 796 mL's of urine in his bladder. Patient continued to attempt to urinate and voided 750. Continue Flomax. Qualifiers: Lower urinary tract symptom presence: unspecified whether lower urinary tract symptoms present Qualified Code(s): N40.0 - Benign prostatic hyperplasia without lower urinary tract symptoms (18) Cholelithiasis Current Visit: Yes Status: Acute Assessment and plan: POD 1 s/p lap rhett by Dr. Nye. Xarelto has been held, restart in 72 hours after surgery. Patient has been reporting spasmodic abdominal pain. Surgery ordered hepatic panel to investigate for possible retained stone. Labs were negative for concern of retained stone. He reported to surgery that medication changes and getting out of bed were helpful, he may advance diet as tolerated. Patient recommends continued use of MiraLAX given patient's history of constipation. Continue current pain medication. I have encouraged the patient multiple times to get up out of the bed and move today. He seems to not want to do that. Qualifiers: Cholelithiasis location: other site Biliary obstruction: without biliary obstruction Qualified Code(s): K80.80 - Other cholelithiasis without obstruction (19) Ambulatory dysfunction Current Visit: Yes Status: Chronic Assessment and plan: PT/OT recommending home health physical therapy at home. Continue PT while in hospital. Patient will be discharged to home with both, as well as a nurse from the [place]. He is refusing to return to the [facility], states he wants to go home with his . - Time Spent With Patient Total time spent is greater than 50% in coordination of care (as documented) at patient's floor/unit and/or counseling patient: less than 15 minutes - Subjective Interval history: Patient was seen and assessed 1210 PM. Patient currently reports continued abdominal pain right upper quadrant, 02/09, patient is postop day 1. He reports he has not urinated since last night prior to surgery. Patient eventually voided approximately 1 L urine. Bladder scan revealed the same amount. Patient states that he is not ready to go home due to continued abdominal pain. I have encouraged multiple times to get out of bed and move around, he states he is in too much pain to do so. Finally at 1800, nurses are giving him out of bed. Patient will stay again tonight due to intractable pain. We will encourage him to move around, get up to walk, we will continue his current medication plan. - Constitutional Vitals: Temp Pulse Resp BP Pulse Ox 98.1 F 78 16 127/83 91 10/12/17 15:57 10/12/17 15:57 10/12/17 15:57 10/12/17 15:57 10/12/17 15:57 General appearance: Present: cooperative, A&O X 3, pleasant, obese, severe distress, answers questions appropriately - Head Head exam: Present: atraumatic, normal inspection, normocephalic - Eye Eye exam: Present: normal appearance, conjuntiva pink, sclera anicteric - Neck Neck exam general surgery: Present: supple, trachea midline. Absent: lymphadenopathy, tenderness - Respiratory Respiratory exam: Present: CTAB. Absent: accessory muscle use, decreased breath sounds, rales, respiratory distress, rhonchi, wheezes - Cardiovascular Cardiovascular exam: Present: RRR, +S1, +S2. Absent: diastolic murmur, gallop, rubs, systolic murmur - GI/Abdominal GI/Abdominal exam: Present: normal bowel sounds, soft, tenderness. Absent: distended - Extremities Exam Extremities exam: Present: normal capillary refill, pedal edema, warm, radial pulses palpable and symmetrical. Absent: calf tenderness, cyanotic - Neurological Exam Neurological exam: Present: alert, oriented X3, no focal deficits. Absent: facial droop, speech deficit - Skin Skin exam: Present: dry, intact, normal color, warm. Absent: rash Internal Medicine: Result - Labs CBC & Chem 7: 10/12/17 06:49 10/12/17 06:49 Labs: Short CBC 10/12/17 Range/Units 06:49 WBC 8.2 (4.3-11.1) K/mcL Hgb 14.5 (12.9-16.9) g/dL Hct 44.2 (37.5-50.1) % Plt Count 254 (140-400) K/mcL Neutrophils # 7.4 (1.6-8.9) K/mcL BMP 10/12/17 06:49 Sodium 134 L Potassium 4.7 Chloride 104 Carbon Dioxide 25 BUN 21 Creatinine 1.11 Glucose 127 H Calcium 9.4 Liver Function 10/12/17 Range/Units 12:33 Total Bilirubin 0.5 (0.3-1.0) mg/dL Direct Bilirubin 0.2 (0.0-0.2) mg/dL AST 33 (13-39) Units/L ALT 45 (7-52) Units/L Alkaline Phosphatase 101 (34-104) Units/L Albumin 3.9 (3.5-5.7) g/dL - VTE Documentation of Mechanical Device: Intermittent pneumatic compression device Consult Discharge Plan - Plan Instructions: Laparoscopic Cholecystectomy (DC) Additional Instructions: General Surgical Discharge Instructions 1. No pushing, pulling, or lifting greater than 15 lbs for 4 weeks (depending upon procedure). 2. You may shower beginning today, but no tub baths, soaking, or swimming for 2 weeks. 3. You may resume driving when you are off narcotics and are safe to react in a car. 4. Take your home narcotic dose for discomfort. You may take tylenol also if needed. 5. Take (Miralax) once or twice daily while taking narcotics. You may hold for loose stools. 6. Report any fevers greater than 100.5F, increase abdominal discomfort, drainage that looks like pus, increased redness or pain at the surgical site, or any vomiting. 7. Report any pain in the calves, shortness of breath, or rapid heartbeat. 8. Follow-up in the office as directed. 9. If you were prescribed antibiotics, do not stop them without talking to your provider. Referrals: Kayla More CNP [Advanced Practice Nurse] - Able-Edda Banda DO [Primary Care Provider] -
[2017-10-12] MEDS ORDERED: Capsaicin 0.025% 60 GM TUBE TP PRN (18:05)
[2017-10-12] MEDS ORDERED: Eucerin Cream 57 GM TUBE TP PRN (18:05)
[2017-10-12] MEDS: traZODone 50 MG TABLET PO SCH (21:37)
[2017-10-12] MEDS: *HR* LORazepam 0.5 MG TABLET PO SCH (21:38)
[2017-10-12] MEDS: metOLazone 2.5 MG TABLET PO SCH (21:38)
[2017-10-12] MEDS: Melatonin 3 MG TABLET PO SCH (21:38)
[2017-10-12] MEDS: Gabapentin 400 MG CAPSULE PO SCH (21:38)
[2017-10-12] MEDS: Furosemide 40 MG TABLET PO SCH (21:54)
[2017-10-13 04:28] LABS: Basophils % 0.5 %; Eosinophils % 0.5 %; Hematocrit 38.4 % (37.5-50.1); Immature Granulocytes % 0.5 % (0-4); Lymphocytes # 0.9 K/mcL (0.6-4.6); Lymphocytes % 10.6 %; Mean Corpuscular HGB Conc 32.6 g/dL (31.6-35.5); Mean Corpuscular Volume 89.1 fL (83.0-100.0); Mean Platelet Volume 9.4 fL (9.4-12.4); Monocytes # 1.2 K/mcL (0.0-1.3); Monocytes % 13.3 %; Neutrophils # 6.6 K/mcL (1.6-8.9); Platelet Count 240 K/mcL (140-400); Red Blood Count 4.31 M/mcL (4.19-5.50); Red Cell Distribution Width 16.5 % (11.5-14.5); Segmented Neutrophils % 74.6 %
[2017-10-13 04:29] LABS: Hemoglobin 12.5 g/dL (12.9-16.9)
[2017-10-13 04:45] LABS: BUN/Creatinine Ratio 18 (6-26); Blood Urea Nitrogen 21 mg/dL (8-23); Carbon Dioxide 26 mEq/L (23-29); Chloride 101 mEq/L (98-107); Glucose 118 mg/dL (70-105); Osmolality,Calculated 280 (280-300); Potassium 4.2 mEq/L (3.5-5.1); Sodium 133 mEq/L (136-145); eGFR For African Americans > 60 (> 60); eGFR For Non-African Americans > 60 (> 60)
[2017-10-13] MEDS: Budesonide/Formoterol 80/4.5 MDI IH SCH ×2 (07:28→20:57)
[2017-10-13] MEDS: Insulin LISPRO 300 UNITS/3 ML VIAL SQ SCH ×4 (09:31→21:55)
[2017-10-13] MEDS: metOLazone 2.5 MG TABLET PO SCH ×2 (09:34→22:00)
[2017-10-13] MEDS: Furosemide 40 MG TABLET PO SCH ×2 (09:34→16:31)
[2017-10-13] MEDS: Finasteride 5 MG TABLET PO SCH (09:35)
[2017-10-13] MEDS: Cholecalciferol (D-3) 1,000 UNIT TABLET PO SCH (09:35)
[2017-10-13] MEDS: Aspirin Enteric Coated 81 MG Tablet PO SCH (09:36)
[2017-10-13] MEDS: Gabapentin 400 MG CAPSULE PO SCH ×2 (09:36→21:57)
[2017-10-13] MEDS: *HR* Amiodarone 200 MG TABLET PO SCH (09:36)
[2017-10-13] MEDS: tiZANidine 4 MG TABLET PO SCH ×2 (09:36→22:01)
[2017-10-13] MEDS: Fluticasone Propionate Nasal 50 MCG/SPRAY BOTTLE NS SCH (09:39)
[2017-10-13] MEDS: STIOLTO RESPIMAT IH SCH (09:50)
[2017-10-13] MEDS: LUBIPROSTONE 8 MCG PO SCH ×2 (09:50→21:44)
[2017-10-13] MEDS: *HR* OxyCODONE Immed Rel 5 MG TABLET PO PRN ×2 (12:10→21:59)
--- NOTE | 2017-10-13 16:29 | Event Note ---
Date of Encounter: 10/13/17 Time of Encounter: 15:00 Interim events noted. Chart reviewed with lastest labs shows renal function normalized. Will sign off, please reconsult prn. Continue to avoid nephrotoxins if possible
[2017-10-13] MEDS: Metoprolol XL (24 HR) Succ 25 MG TAB.ER.24H PO SCH (16:31)
--- NOTE | 2017-10-13 18:43 | Internal Med Progress Note ---
Date of Encounter: 10/13/17 Time of Encounter: 09:35 - Assessment and plan (1) Chronic respiratory failure with hypoxia Current Visit: Yes Status: Resolved Assessment and plan: Pt at baseline 02 use. (2) Cerebrovascular accident Current Visit: Yes Status: Chronic Assessment and plan: Chronic. No new deficits. Continue aspirin and statin. Continue burlap bag sewer for safety and falls. Up with assist only. Qualifiers: CVA mechanism: embolism Precerebral and cerebral artery: unspecified cerebral artery Qualified Code(s): I63.40 - Cerebral infarction due to embolism of unspecified cerebral artery (3) Anxiety Current Visit: Yes Status: Chronic Assessment and plan: Chronic. (4) Depression Current Visit: Yes Status: Chronic Assessment and plan: Chronic. Stable. Qualifiers: Depression Type: major depressive disorder Major depression recurrence: recurrent Active/Remission status: in full remission Qualified Code(s): F33.42 - Major depressive disorder, recurrent, in full remission (5) CAD in [place] artery Current Visit: Yes Status: Chronic Assessment and plan: Chronic. no chest pain Continue aspirin, amiodarone, Lipitor, beta brisa. Continue telemetry (6) Pacemaker Current Visit: Yes Status: Chronic (7) Atrial fibrillation Current Visit: Yes Status: Chronic Assessment and plan: Rate controlled. Continue beta brisa Restart Xarelto 72 hours after surgery. Qualifiers: Atrial fibrillation type: paroxysmal Qualified Code(s): I48.0 - Paroxysmal atrial fibrillation (8) COPD (chronic obstructive pulmonary disease) Current Visit: Yes Status: Chronic Assessment and plan: No acute exacerbation. Lungs are clear and diminished throughout. Patient is in no distress. No wheezing, rales, or ronchi. Pt is currently at baseline O2 demand. Continue home medications. Continue telemetry. O2, titrate prn to maintain sats greater than 92%. Qualifiers: COPD type: unspecified COPD Qualified Code(s): J44.9 - Chronic obstructive pulmonary disease, unspecified (9) Diabetes mellitus Current Visit: Yes Status: Chronic Assessment and plan: A1c is 5.9% in July, well controlled. Continue sliding scale insulin, Accu-Cheks before meals at bedtime, diabetic diet. 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 Continue PPI. Denies new symptoms. Qualifiers: Esophagitis presence: esophagitis presence not specified Qualified Code(s) : K21.9 - Gastro-esophageal reflux disease without esophagitis (11) HTN (hypertension) Current Visit: Yes Status: Chronic Assessment and plan: Chronic. Well controlled in hospital setting. Continue home medications. Qualifiers: Hypertension type: essential hypertension Qualified Code(s): I10 - Essential (primary) hypertension (12) HLD (hyperlipidemia) Current Visit: Yes Status: Chronic Assessment and plan: Chronic. Continue home medications Qualifiers: Hyperlipidemia type: unspecified Qualified Code(s): E78.5 - Hyperlipidemia , unspecified (13) CHF (congestive heart failure) Current Visit: Yes Status: Chronic Assessment and plan: Hold IV fluids. Home dose of Lasix restarted today. Pt with +2 edema to BLE. Lungs clear and diminished. Fluid restrictions to 1.5 L a day Patient with overall -2.8 L diuresis. I do not believe that weights are accurate. Continue Daily weight Strict I's and O's. 1.5 liter fluid restriction Continue telemetry Qualifiers: Qualified Code(s): I50.32 - Chronic diastolic (congestive) heart failure (14) Obesity (BMI 30-39.9) Current Visit: Yes Status: Chronic Assessment and plan: Chronic. Lifestyle modifications. (15) Npyfr-[id number] kidney injury Current Visit: Yes Status: Acute Assessment and plan: Renal function back to within normal limits. Serum creatinine 1.16, GFR >60. Home dose of Lasix has been restarted. IV fluids have been held. Nephrology following. Continue to avoid nephrotoxins, adjust medications for renal function. Qualifiers: Acute renal failure type: unspecified Chronic kidney disease stage: stage 3 (moderate) Qualified Code(s): N17.9 - Acute kidney failure, unspecified; N18.3 - Chronic kidney disease, stage 3 (moderate); N18.3 - Chronic kidney disease, stage 3 (moderate) (16) Constipation Current Visit: Yes Status: Resolved Qualifiers: Constipation type: slow transit constipation Qualified Code(s): K59.01 - Slow transit constipation (17) BPH (benign prostatic hyperplasia) Current Visit: Yes Status: Chronic Assessment and plan: Patient reports dysuria since admission 6 days ago. Urine is negative. Continue Proscar and Flomax. 10/11/17- assessment unchanged. 10/12/17- Pt denies symptoms today. Pt reported that he had not urinated in approximately 18 hours, bladder scan showed 796 mL's of urine in his bladder. Patient continued to attempt to urinate and voided 750. Continue Flomax. 10/13/17- no complaints. Continue medications. Qualifiers: Lower urinary tract symptom presence: unspecified whether lower urinary tract symptoms present Qualified Code(s): N40.0 - Benign prostatic hyperplasia without lower urinary tract symptoms (18) Cholelithiasis Current Visit: Yes Status: Acute Assessment and plan: POD 2 s/p lap rhett by Dr. Nye. Reji has been held, restart in 72 hours after surgery. Still encouraging patient to get up out of bed. He still continues to report pain, however, he appears to be improved, as does his pain. Patient recommends continued use of MiraLAX given patient's history of constipation. Continue current pain medication. Qualifiers: Cholelithiasis location: other site Biliary obstruction: without biliary obstruction Qualified Code(s): K80.80 - Other cholelithiasis without obstruction (19) Ambulatory dysfunction Current Visit: Yes Status: Chronic Assessment and plan: PT/OT recommending home health physical therapy at home. Continue PT while in hospital. He is refusing to return to the [place], he has stated that he wants to go home with his . Today, he agrees to go to inpatient rehabilitation. He states that he will go to [facility] tomorrow. He has been accepted and can be discharged in the morning. - Time Spent With Patient Total time spent is greater than 50% in coordination of care (as documented) at patient's floor/unit and/or counseling patient: less than 15 minutes - Subjective Interval history: Patient was seen and assessed 0935. Post op day 2. Patient states that he is not ready to go home and tells nurse that he feels like I am kicking him out. I have encouraged multiple times to get out of bed and move around, he states he already has. We will continue to encourage him to move around, get up to walk, we will continue his current medication plan. - Constitutional Vitals: Temp Pulse Resp BP Pulse Ox 98.4 F 66 61 105/71 93 10/13/17 15:27 10/13/17 11:00 10/13/17 15:27 10/13/17 15:27 10/13/17 15:27 General appearance: Present: cooperative, A&O X 3, pleasant, obese, severe distress, answers questions appropriately - Head Head exam: Present: atraumatic, normal inspection, normocephalic - Eye Eye exam: Present: normal appearance, conjuntiva pink, sclera anicteric - Neck Neck exam general surgery: Present: supple, trachea midline. Absent: lymphadenopathy - Respiratory Respiratory exam: Present: CTAB. Absent: accessory muscle use, chest wall tenderness, rales, respiratory distress, rhonchi, wheezes - Cardiovascular Cardiovascular exam: Present: RRR, +S1, +S2. Absent: diastolic murmur, gallop, rubs, systolic murmur - GI/Abdominal GI/Abdominal exam: Present: normal bowel sounds, soft. Absent: distended, hepatomegaly, tenderness - Extremities Exam Extremities exam: Present: normal capillary refill, normal inspection, warm, radial pulses palpable and symmetrical. Absent: calf tenderness, cyanotic, pedal edema, tenderness - Neurological Exam Neurological exam: Present: alert, oriented X3, no focal deficits. Absent: facial droop, speech deficit - Skin Skin exam: Present: dry, intact, normal color, warm. Absent: rash Internal Medicine: Result - Labs CBC & Chem 7: 10/13/17 03:47 10/13/17 03:47 Labs: Short CBC 10/13/17 Range/Units 03:47 WBC 8.8 (4.3-11.1) K/mcL Hgb 12.5 L D (12.9-16.9) g/dL Hct 38.4 (37.5-50.1) % Plt Count 240 (140-400) K/mcL Neutrophils # 6.6 (1.6-8.9) K/mcL BMP 10/13/17 03:47 Sodium 133 L Potassium 4.2 Chloride 101 Carbon Dioxide 26 BUN 21 Creatinine 1.16 Glucose 118 H Calcium 9.0 - VTE Documentation of Mechanical Device: Intermittent pneumatic compression device Consult Discharge Plan - Plan Instructions: Laparoscopic Cholecystectomy (DC) Additional Instructions: General Surgical Discharge Instructions 1. No pushing, pulling, or lifting greater than 15 lbs for 4 weeks (depending upon procedure). 2. You may shower beginning today, but no tub baths, soaking, or swimming for 2 weeks. 3. You may resume driving when you are off narcotics and are safe to react in a car. 4. Take your home narcotic dose for discomfort. You may take tylenol also if needed. 5. Take (Miralax) once or twice daily while taking narcotics. You may hold for loose stools. 6. Report any fevers greater than 100.5F, increase abdominal discomfort, drainage that looks like pus, increased redness or pain at the surgical site, or any vomiting. 7. Report any pain in the calves, shortness of breath, or rapid heartbeat. 8. Follow-up in the office as directed. 9. If you were prescribed antibiotics, do not stop them without talking to your provider. Referrals: Kayla More CNP [Advanced Practice Nurse] - Able-Edda Banda DO [Primary Care Provider] -
[2017-10-13] MEDS: *HR* LORazepam 0.5 MG TABLET PO SCH (21:57)
[2017-10-13] MEDS: Melatonin 3 MG TABLET PO SCH (22:00)
[2017-10-13] MEDS: traZODone 50 MG TABLET PO SCH (22:00)
[2017-10-14] MEDS: Budesonide/Formoterol 80/4.5 MDI IH SCH (08:44)
[2017-10-14] MEDS: Aspirin Enteric Coated 81 MG Tablet PO SCH (09:44)
[2017-10-14] MEDS: Cholecalciferol (D-3) 1,000 UNIT TABLET PO SCH (09:44)
[2017-10-14] MEDS: *HR* Amiodarone 200 MG TABLET PO SCH (09:44)
[2017-10-14] MEDS: Finasteride 5 MG TABLET PO SCH (09:44)
[2017-10-14] MEDS: Gabapentin 400 MG CAPSULE PO SCH (09:45)
[2017-10-14] MEDS: tiZANidine 4 MG TABLET PO SCH (09:45)
[2017-10-14] MEDS: Insulin LISPRO 300 UNITS/3 ML VIAL SQ SCH ×2 (09:46→11:29)
[2017-10-14] MEDS: Fluticasone Propionate Nasal 50 MCG/SPRAY BOTTLE NS SCH (09:46)
[2017-10-14] MEDS: LUBIPROSTONE 8 MCG PO SCH (09:47)
[2017-10-14] MEDS: STIOLTO RESPIMAT IH SCH (09:47)
[2017-10-14] MEDS: Furosemide 40 MG TABLET PO SCH (09:47)
[2017-10-14] MEDS: metOLazone 2.5 MG TABLET PO SCH (09:48)
--- NOTE | 2017-10-14 14:06 | Discharge Summary ---
Date of Encounter: 10/14/17 Time of Encounter: 12:10 - Discharge Diagnosis (1) Chronic respiratory failure with hypoxia Priority: Secondary Status: Resolved Comments: Back to baseline 2L 02 use (2) Cerebrovascular accident Priority: Secondary Status: Chronic Comments: Chronic. No new deficits. Continue ASA and statin. Qualifiers: CVA mechanism: embolism Precerebral and cerebral artery: unspecified cerebral artery Qualified Code(s): I63.40 - Cerebral infarction due to embolism of unspecified cerebral artery (3) Anxiety Priority: Secondary Status: Chronic Comments: Chronic. Continue home medications. (4) Depression Priority: Secondary Status: Chronic Comments: Chronic. STable. Qualifiers: Depression Type: major depressive disorder Major depression recurrence: recurrent Active/Remission status: in full remission Qualified Code(s): F33.42 - Major depressive disorder, recurrent, in full remission (5) CAD in [place] artery Priority: Secondary Status: Chronic Comments: Chronic. Denies chst pain. Continue ASA, statin, BB, amiodarone. (6) Pacemaker Priority: Secondary Status: Chronic Comments: Chronic. (7) Atrial fibrillation Priority: Secondary Status: Chronic Comments: Rate controlled. Continue BB. Restart Xarelto. Qualifiers: Atrial fibrillation type: paroxysmal Qualified Code(s): I48.0 - Paroxysmal atrial fibrillation (8) COPD (chronic obstructive pulmonary disease) Priority: Secondary Status: Chronic Comments: No acute exacerbation. Lungs are clear and diminished throughout. No distress , no wheezing, rales, no rhonchi. Patient is at baseline O2 demand. Titrate oxygen as needed to maintain sats greater than 92%. Continue home medications. Qualifiers: COPD type: unspecified COPD Qualified Code(s): J44.9 - Chronic obstructive pulmonary disease, unspecified (9) Diabetes mellitus Priority: Secondary Status: Chronic Comments: Well-controlled. A1c was 5.9% in July. 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 Continue home medications. Qualifiers: Esophagitis presence: esophagitis presence not specified Qualified Code(s) : K21.9 - Gastro-esophageal reflux disease without esophagitis (11) HTN (hypertension) Priority: Secondary Status: Chronic Comments: Well-controlled. Continue home medications. Qualifiers: Hypertension type: essential hypertension Qualified Code(s): I10 - Essential (primary) hypertension (12) HLD (hyperlipidemia) Priority: Secondary Status: Chronic Comments: Chronic. Continue home medications. Qualifiers: Hyperlipidemia type: unspecified Qualified Code(s): E78.5 - Hyperlipidemia , unspecified (13) CHF (congestive heart failure) Priority: Secondary Status: Chronic Comments: Acute exacerbation of diastolic congestive heart failure. Continue home dose of Lasix. Pt iwth +1 non pitting edema to BLE, significantly improved from pre-op status. Lungs are clear and diminished. I and O: -4.7 liters, weights unreliable. Recommend low sodium diet and fluid restriction after discharge. Echocardiogram from July, showed an LVEF of 55%, overall LV function appeared normal, mild LV DD, device lead was visualized atrium and right ventricle and there is no significant valvular dysfunction. Qualifiers: Qualified Code(s): I50.32 - Chronic diastolic (congestive) heart failure (14) Obesity (BMI 30-39.9) Priority: Secondary Status: Chronic Comments: Chronic. Lifestyle modifications. (15) [id number] kidney injury Priority: Secondary Status: Acute Comments: Sr Cr 1.16/GFR > 60. Renal function WNL. Avoid nephrotoxins and monitor labs. Qualifiers: Acute renal failure type: unspecified Chronic kidney disease stage: stage 3 (moderate) Qualified Code(s): N17.9 - Acute kidney failure, unspecified; N18.3 - Chronic kidney disease, stage 3 (moderate); N18.3 - Chronic kidney disease, stage 3 (moderate) (16) Constipation Priority: Secondary Status: Resolved Comments: Resolved. Qualifiers: Constipation type: slow transit constipation Qualified Code(s): K59.01 - Slow transit constipation (17) BPH (benign prostatic hyperplasia) Priority: Secondary Status: Chronic Comments: Chronic. Patient denies any complaints. Continue Proscar and Flomax. Qualifiers: Lower urinary tract symptom presence: unspecified whether lower urinary tract symptoms present Qualified Code(s): N40.0 - Benign prostatic hyperplasia without lower urinary tract symptoms (18) Cholelithiasis Priority: Secondary Status: Acute Comments: Postop day 3 status post laparoscopic cholecystectomy by Dr. Howard. Luzto will be restarted tomorrow. Patient denies abdominal pain, tolerating diet well, bowel sounds present, abdomen soft and nontender. We will continue MiraLAX given patient's history of constipation. Qualifiers: Cholelithiasis location: other site Biliary obstruction: without biliary obstruction Qualified Code(s): K80.80 - Other cholelithiasis without obstruction (19) Ambulatory dysfunction Priority: Secondary Status: Chronic Comments: PT/OT recommended home health physical therapy. Patient was [facility], he stated that he would not go back and wound is going to call with his . Yesterday, patient agreed to inpatient rehabilitation and will go to [facility] today for discharge. He has been accepted for rehabilitation and is ready to today. Hospital course: Mr. Issa is a 67 year old male with past medical history of pacemaker, sick sinus syndrome, obesity, chronic respiratory failure, BPH, hypertension, hyperlipidemia, depression, CAD, paroxysmal A. fib, prior CVA. Patient was at the [facility] in the [facility] since July,. He is brought by family due to worsening renal function at the [facility]. He denies any specific complaints of chest pain, shortness breath, nausea, vomiting, diarrhea, flank pain or urinary symptoms. Patient also had epigastric and left lower quadrant abdominal pain. His dose of Lasix a bit increased at the [facility] due to increasing peripheral edema, he felt that he was not being managed appropriately and was brought to our facility. Patient was followed by nephrology, eventually his renal function returned to baseline and now is within normal limits. Again, he denies any urinary symptoms. Patient does have BPH and will continue Proscar and Flomax after discharge. Patient had a retroperitoneal ultrasound done on admission that showed echogenic left kidney, which could medical renal disease. Nephrology has followed, signed off. Renal function has returned to normal. In regards abdominal pain, CT abdomen and pelvis without contrast showed no acute abdominopelvic abnormality, there is diverticulosis without evidence of diverticulitis, possible sludge or stones within the gallbladder neck, and a right middle lobe pulmonary micronodule. Per Fleischner Society guidelines nodule less then or equal to 4 mm, patient will need to follow-up. Her ultrasound showed cholelithiasis without evidence of biliary dilation, otherwise unremarkable right upper quadrant ultrasound. On 10/11/17, patient had a laparoscopic cholecystectomy without complications. He had severe abdominal pain status post surgery. We encourage patient to get up and around, he finally did started feeling better. Today is postop day 3, he is feeling much better abdomen soft and nondistended with bowel sounds present. His abdomen is nontender. Patient will need to restart Xarelto tonight. Pt also treated for acute exacerbation of CHF with IV diuresis, O2, fluid restriction 1.5 L. Patient has diuresed well and is feeling better. Peripheral edema has resolved. Patient looks significantly better and states that he feels better. On admission he had +2-3 pitting edema bilaterally, that has resolved. Patient also has diuresed approximately 4.7 L of fluid. Patient reports that he is eating food well and has had a bowel movement. His labs are stable and within normal limits, vitals are also stable and he is on his normal baseline oxygen use 3 L. Patient has improved clinically. His labs and vitals are stable and within normal limits. [facility] Discharge discussed with: patient, nurse - Time Spent with Patient Total time spent providing and/or coordinating discharge services: Less than 30 minutes - Discharge Medications Prescriptions: OxyCODONE Immed Rel [Roxicodone 10 MG] 10 mg PO QID PRN 2 Days #8 tablet PRN Reason: Pain Home Medications: Aspirin Enteric Coated [Aspirin EC] 81 mg PO DAILY #0 04/09/15 [History] Rivaroxaban [Xarelto] 20 mg PO DAILY #0 04/09/15 [History] Albuterol Sulfate [Proair Hfa] 2 puff IH Q4H PRN 12/14/16 [History] Atorvastatin [Lipitor] 40 mg PO HS 12/14/16 [History] Gabapentin [Neurontin] 400 mg PO BID 12/14/16 [History] Pantoprazole Sodium [Protonix] 40 mg PO DAILY 12/14/16 [History] Polyethylene Glycol 3350 [MiraLAX Powder Bulk 17.9 Oz] 17 gm PO DAILY PRN [History] Sennosides/Docusate Sodium [Senna-Docusate Sodium Tablet] 1 tab PO BID PRN 12/14 [History] Tizanidine HCl [Zanaflex] 2 mg PO BID 12/14/16 [History] DULoxetine [Cymbalta] 30 mg PO DAILY 02/14/17 [History] Tamsulosin [Flomax] 0.4 mg PO BID 02/14/17 [History] Amiodarone [Cordarone] 200 mg PO DAILY 07/05/17 [History] Capsaicin [Arthritis Pain Relief] 1 appl TP BID PRN 07/05/17 [History] Finasteride [Proscar] 5 mg PO DAILY 07/05/17 [History] Furosemide [Lasix] 40 mg PO BID 07/05/17 [History] Lidocaine 4% CRM (LMX) [Lmx 4] 1 appl TP TID 07/05/17 [History] Memantine HCl 10 mg PO BID 07/05/17 [History] Tiotropium Br/Olodaterol HCl [Stiolto Respimat Inhal [place]] 2 puff IH DAILY 11/17 [History] metOLazone [Zaroxolyn] 2.5 mg PO BID 07/20/17 [History] Cholecalciferol (D-3) [Vitamin D] 2,000 unit PO DAILY 10/04/17 [History] Eucerin Creme 1 appl TP QID PRN 10/04/17 [History] Fluticasone Propionate Nasal [Flonase] 100 mcg NS DAILY 10/04/17 [History] Fluticasone/Salmeterol [Advair 250-50 Diskus] 1 each IH BID 10/04/17 [History] LORazepam [Ativan] 0.5 mg PO HS 10/04/17 [History] Lubiprostone [Amitiza] 8 mcg PO BID 10/04/17 [History] Melatonin [Melatin] 9 mg PO HS 10/04/17 [History] Methotrexate [Otrexup] 10 mg PO TH 10/04/17 [History] Metoprolol XL (24 HR) Succ [Toprol Xl] 12.5 mg PO QPM 10/04/17 [History] Spironolactone [Aldactone] 100 mg PO DAILY 10/04/17 [History] Trazodone HCl 200 mg PO HS 10/04/17 [History] Lidocaine Patch [Lidoderm 5% patch] 1 each TP DAILY adh..patch 10/14/17 [Rx] OxyCODONE Immed Rel [Roxicodone 10 MG] 10 mg PO QID PRN 2 Days #8 tablet [Rx] Allergies/Adverse Reactions: 3 Allergy/AdvReac Type Severity Reaction Status Date / Time IVP DYE Allergy Anaphylaxis Uncoded 10/04/17 13:23 Date of admission: 10/04/17 18:16 Primary care physician: Edda Rutherford Consults: 10/04/17 22:01 Consult to Nephrology [CONS] Routine Consulting Provider: [facility]/OTTO/JESSICA/BENITO Reason for Consult: AG on CKD, diuretic use Call Completed: No 10/05/17 12:47 Consult to Surgery [CONS] Routine Consulting Provider: [facility] Reason for Consult: gallstones Time Notified: 12:48 Call Completed: Yes 10/05/17 15:42 Consult to Haz Tech [CONS] Routine Reason for SW Consult: Placement versus home 10/12/17 15:09 Consult to Physical Therapy [CONS] Routine Comment: Evaluate, develop and implement POC Reason for Consult: [id number] Does patient have active BEDREST order?: No Is patient medically & hemodynamically stable?: Yes Patient assessed for mobility or mobilized this visit?: Yes 10/12/17 15:10 Consult to Occupational Therapy [CONS] Routine Comment: Evaluate, develop and implement POC Reason for Consult: [id number] Does patient have active BEDREST order?: No Is patient medically & hemodynamically stable?: Yes Patient assessed for mobility or mobilized this visit?: Yes Discharging clinician: Kayla Alcantar Anticipated date of discharge: 10/14/17 - Constitutional Vitals: Temp Pulse Resp BP Pulse Ox 98.0 F 60 16 105/71 92 10/14/17 10:36 10/14/17 10:36 10/14/17 10:36 10/14/17 10:36 10/14/17 10:36 General appearance: Present: cooperative, A&O X 3, pleasant, no acute distress, obese, answers questions appropriately - Head Head exam: Present: atraumatic, normocephalic - Eye Eye exam: Present: normal appearance, conjuntiva pink, sclera anicteric - Neck Neck exam general surgery: Present: supple, trachea midline. Absent: lymphadenopathy - Respiratory Respiratory exam: Present: decreased breath sounds, CTAB. Absent: accessory muscle use, chest wall tenderness, rales, respiratory distress, rhonchi, wheezes - Cardiovascular Cardiovascular exam: Present: RRR, +S1, +S2. Absent: diastolic murmur, gallop, rubs, systolic murmur - GI/Abdominal GI/Abdominal exam: Present: normal bowel sounds, soft. Absent: distended, firm , hepatomegaly, tenderness - Extremities Exam Extremities exam: Present: normal capillary refill, normal inspection, warm, radial pulses palpable and symmetrical. Absent: calf tenderness, cyanotic, pedal edema, tenderness - Neurological Exam Neurological exam: Present: alert, oriented X3, no focal deficits. Absent: altered, facial droop, speech deficit - Skin Skin exam: Present: dry, intact, normal color, warm. Absent: rash - Patient Status Disposition: Transfer SNF Condition: Good Functional capacity at discharge: uses cane/walker - Discharge Instructions Instructions: Laparoscopic Cholecystectomy (DC) Follow Up With: Kayla More CNP [Advanced Practice Nurse] - Able-Edda Banda DO [Primary Care Provider] - Additional Instructions: General Surgical Discharge Instructions 1. No pushing, pulling, or lifting greater than 15 lbs for 4 weeks (depending upon procedure). 2. You may shower beginning today, but no tub baths, soaking, or swimming for 2 weeks. 3. You may resume driving when you are off narcotics and are safe to react in a car. 4. Take your home narcotic dose for discomfort. You may take tylenol also if needed. 5. Take (Miralax) once or twice daily while taking narcotics. You may hold for loose stools. 6. Report any fevers greater than 100.5F, increase abdominal discomfort, drainage that looks like pus, increased redness or pain at the surgical site, or any vomiting. 7. Report any pain in the calves, shortness of breath, or rapid heartbeat. 8. Follow-up in the office as directed. 9. If you were prescribed antibiotics, do not stop them without talking to your provider. - Diet and Activity Activity: as per physical therapy, increase activity as tolerated Diet: diabetic diet, low fat, low cholesterol, low salt diet - VTE Documentation of Mechanical Device: Intermittent pneumatic compression device
[2017-10-14 15:01] VITALS: BP 109/74
[2017-10-14] MEDS ORDERED: *HR* Rivaroxaban 10 MG TABLET PO ONE (15:32)
--- NOTE | 2017-10-14 15:40 | Physician Discharge Referral ---
ExtendedCare Referral Info Transfer To: [facility] Provider in Charge after Transfer: PCP Institutional Level of Care: Skilled - Diagnosis (1) Chronic respiratory failure with hypoxia Priority: Secondary Status: Resolved (2) Cerebrovascular accident Priority: Secondary Status: Chronic (3) Anxiety Priority: Secondary Status: Chronic (4) Depression Priority: Secondary Status: Chronic (5) CAD in [place] artery Priority: Secondary Status: Chronic (6) Pacemaker Priority: Secondary Status: Chronic (7) Atrial fibrillation Priority: Secondary Status: Chronic (8) COPD (chronic obstructive pulmonary disease) Priority: Secondary Status: Chronic (9) Diabetes mellitus Priority: Secondary Status: Chronic (10) GERD (gastroesophageal reflux disease) Priority: Secondary Status: Chronic (11) HTN (hypertension) Priority: Secondary Status: Chronic (12) HLD (hyperlipidemia) Priority: Secondary Status: Chronic (13) CHF (congestive heart failure) Priority: Secondary Status: Chronic (14) Obesity (BMI 30-39.9) Priority: Secondary Status: Chronic (15) [id number] kidney injury Priority: Primary Status: Acute (16) Constipation Priority: Secondary Status: Resolved (17) BPH (benign prostatic hyperplasia) Priority: Secondary Status: Chronic (18) Cholelithiasis Priority: Secondary Status: Acute (19) Ambulatory dysfunction Priority: Secondary Status: Chronic Prognosis: Good - Transfer Medications Prescriptions: OxyCODONE Immed Rel [Roxicodone 10 MG] 10 mg PO QID PRN 2 Days #8 tablet PRN Reason: Pain Home Medications: Aspirin Enteric Coated [Aspirin EC] 81 mg PO DAILY #0 04/09/15 [History] Rivaroxaban [Xarelto] 20 mg PO DAILY #0 04/09/15 [History] Albuterol Sulfate [Proair Hfa] 2 puff IH Q4H PRN 12/14/16 [History] Atorvastatin [Lipitor] 40 mg PO HS 12/14/16 [History] Gabapentin [Neurontin] 400 mg PO BID 12/14/16 [History] Pantoprazole Sodium [Protonix] 40 mg PO DAILY 12/14/16 [History] Polyethylene Glycol 3350 [MiraLAX Powder Bulk 17.9 Oz] 17 gm PO DAILY PRN [History] Sennosides/Docusate Sodium [Senna-Docusate Sodium Tablet] 1 tab PO BID PRN 12/14 [History] Tizanidine HCl [Zanaflex] 2 mg PO BID 12/14/16 [History] DULoxetine [Cymbalta] 30 mg PO DAILY 02/14/17 [History] Tamsulosin [Flomax] 0.4 mg PO BID 02/14/17 [History] Amiodarone [Cordarone] 200 mg PO DAILY 07/05/17 [History] Capsaicin [Arthritis Pain Relief] 1 appl TP BID PRN 07/05/17 [History] Finasteride [Proscar] 5 mg PO DAILY 07/05/17 [History] Furosemide [Lasix] 40 mg PO BID 07/05/17 [History] Lidocaine 4% CRM (LMX) [Lmx 4] 1 appl TP TID 07/05/17 [History] Memantine HCl 10 mg PO BID 07/05/17 [History] Tiotropium Br/Olodaterol HCl [Stiolto Respimat Inhal [place]] 2 puff IH DAILY 11/17 [History] metOLazone [Zaroxolyn] 2.5 mg PO BID 07/20/17 [History] Cholecalciferol (D-3) [Vitamin D] 2,000 unit PO DAILY 10/04/17 [History] Eucerin Creme 1 appl TP QID PRN 10/04/17 [History] Fluticasone Propionate Nasal [Flonase] 100 mcg NS DAILY 10/04/17 [History] Fluticasone/Salmeterol [Advair 250-50 Diskus] 1 each IH BID 10/04/17 [History] LORazepam [Ativan] 0.5 mg PO HS 10/04/17 [History] Lubiprostone [Amitiza] 8 mcg PO BID 10/04/17 [History] Melatonin [Melatin] 9 mg PO HS 10/04/17 [History] Methotrexate [Otrexup] 10 mg PO TH 10/04/17 [History] Metoprolol XL (24 HR) Succ [Toprol Xl] 12.5 mg PO QPM 10/04/17 [History] Spironolactone [Aldactone] 100 mg PO DAILY 10/04/17 [History] Trazodone HCl 200 mg PO HS 10/04/17 [History] Lidocaine Patch [Lidoderm 5% patch] 1 each TP DAILY adh..patch 10/14/17 [Rx] OxyCODONE Immed Rel [Roxicodone 10 MG] 10 mg PO QID PRN 2 Days #8 tablet [Rx] Allergies/Adverse Reactions: 3 Allergy/AdvReac Type Severity Reaction Status Date / Time IVP DYE Allergy Anaphylaxis Uncoded 10/04/17 13:23 - Respiratory Orders Oxygen / L per min (2 liters 02 via nasal canula, titrate as needed to maintain sats > 92%) Smoking Cessation: Smoking cessation has been advised. For more information, call the [place] Tobacco Quit Line at 4-014-KIDR-NOW. - Lab Orders Lab Orders: CBC, U/A, Pravin 17, CXR yearly - Ancillary Orders May use pressure relief devices daily prn, May go on MALDONADO w/family/respon libertarian w /meds at nurse discretion PRN, May consult with Dentist, Lining Cementer, Staple Shear Operator PRN - Advance Directives Code Status: Full Code - Mobility Orders Chair, Ambulate - Rehabiliation Orders Rehab Orders: Sternal Precautions, ROM Exercises, Evaluation for Physical Therapy, Evaluation for Occupational Therapy - Treatments Skin tear care topically daily PRN per policy, May check for fecal impaction rectally daily PRN, Fleet enema rectally every other day PRN cleansing purposes - Diet Orders No Added Salt (SERGIO) (1.5 liter fluid restriction), Cardiac CERTIFICATION: I certify that the transfer of the above named patient to an Extended Care Facility is necessary for the continuing treatment of the diagnosis listed. The above information is true and accurate reflection of patient's current condition. Confidential - Redisclosure prohibited without a patient's written consent.
== END 2017-10-14 17:30 | DRG 417 ==
LOC: 3BNU 13:07 → EMEROO 13:07 → OBSVTOIN 18:16 → 3BNU 19:51
PROVIDERS: ADMIT Internal Medicine; ATTEND Registered Nurse

== ENCOUNTER 2017-10-22 00:02 | Inpatient (IN) ==
[2017-10-22] MEDS ORDERED: 0.9 % Sodium Chloride 1,000 ML IVC SCH (02:45)
[2017-10-22] MEDS: *HR* OxyCODONE/APAP 5/325 TABLET PO PRN ×2 (02:54→08:42)
[2017-10-22 09:31] LABS: Albumin 3.2 g/dL (3.5-5.7); Albumin/Globulin Ratio 1.1 (1.1-2.2); Basophils % 0.5 %; Bilirubin,Total 0.7 mg/dL (0.3-1.0); Eosinophils # 0.3 K/mcL (0.0-0.6); Eosinophils % 6.2 %; Hemoglobin 12.2 g/dL (12.9-16.9); Immature Granulocytes % 0.5 % (0-4); Lymphocytes # 0.7 K/mcL (0.6-4.6); Lymphocytes % 17.2 %; Mean Corpuscular HGB Conc 32.1 g/dL (31.6-35.5); Mean Corpuscular Hemoglobin 28.2 pg (28.0-33.3); Mean Platelet Volume 9.8 fL (9.4-12.4); Monocytes # 0.1 K/mcL (0.0-1.3); Platelet Count 158 K/mcL (140-400); Potassium 2.9 mEq/L (3.5-5.1); Red Blood Count 4.32 M/mcL (4.19-5.50); Red Cell Distribution Width 15.5 % (11.5-14.5); Segmented Neutrophils % 73.6 %; Total Protein 6.2 g/dL (6.4-8.9)
--- NOTE | 2017-10-22 11:18 | General Surg History&Physical ---
<Seth Benjamin - Last Filed: 10/22/17 15:38> Date of Encounter: 10/22/17 Time of Encounter: 08:45 Assessment and Plan (1) Abdominal pain Current Visit: No Status: Acute POD #11 s/p Lap Cholecystectomy pt discharged n POD #3 was doing fine at the time discharged to rehab developed abd pain, and distention, stopped having bowel movements. was taken to OSH. CT obtained showed fluid collection in gallbladder fossa and constipation per report. Transferred to [facility] for continuity of care. Plans: Ordered CBC, CMP, LA Started Zosyn ordered RUQ u/s to evaluate fluid collection Pain control supportive care once images from OSH uploaded review CT scan The assessment and plan as outlined above was discussed with the patient and/or family members who expressed understanding and agreement. All questions were answered. Qualifiers: Abdominal location: generalized Qualified Code(s): R10.84 - Generalized abdominal pain History of Present Illness Chief complaint: Abdominal Pain HPI: Mr. Issa is a 67 year old male c PMHx of dementiarthritis, atrial fibrillation , CHF, COPD, coronary artery disease, CVA, diabetes, GERD, hyperlipidemia, hypertension, pulmonary embolus, anxiety, depression, Herniorrhaphy, Pacemaker/ AICD, who presents to [facility] as a transfer from [facility] for worsening abdominal pain x 1 day. Patient is POD #11 s/p Lap Cholecystectomy with Dr. Nye. Patient was discharged to Rehab on POD #3(4) at time of discharge patient's pain had improved and was well controlled, he had had a bowel movement and was tolerating his diet well. Patient reports since going to rehab he has had only one bowel movement. He reports that yesterday he began to have abdominal pain. He indicates worst pain is in B/l LQ. He reports that his abdomen feels distended and that he will try to have a bowel movement but only air comes out. He rates the pain 8/10. Per OSH record patient reports abd pain for the last 3 days last BM 3 days ago. At that time BM softer than usual and light yanes in color. He has been burping constantly. OSH labs showed: Total Bili 0.5, direct 0.3, Total protien 6.9 albumin 3.0, alk phos 111, ASt 28 ALt 63, Ammonia 23, Na 131, K 3.1, Cl 87, HCO3 39, BUN 47, Glucose 153, CA 9.4, Trop negative, LA 1.5, CRP >18, PT 12.9, INR 1.1, PTT 29.1 , WBC 7.6 HGb 13.1, Hct 39.9, plts 182. OSH CT Abd pelvis showed: 1. Status post cholecystectomy with 3.7 x 4.2 cm fluid collection in the gallbladder fossa and an air bubble with extensive mesenteric edema in the RUQ. The fluid collection may represent postsurgical hematoma or seroma. The possibility of an abscess or biloma cannot be excluded. 2) No biliary ductal obstruction. 3. Edema/inflammation in the fat containing umbilical hernia likley related to postsurgical edema/inflammation. 4) Diffuse colonic constipation. No evidence of acute appendicitis or mechanical bowel obstruction. Gas distention of the sigmoid colon loop up to 5.6cm. This may be related to postsurgical colonic ileus. 5) Distended stomach with fluid and gas. 6) Distended urinary bladder. 7) subcutaneous hyperdense and ground glass foci in the abdominal wall may be certain postsurgical in nature or related to subcutaneous injection. Labs this morning at our hospital show: WBC 4.1 Hgb 12.2 Hct 38 plts 158, Na 132 K 2.9, cl 86 HCO3 37 BUN 40 Cr 1.52 glu 119, LA 0.9 Ca 9.0, Total bili 0.7, AST 34, ALT 50, Alk phos 103 total protein 6.2 albumin 3.2 Past Med Surg Social Fam HX - Past Medical History Medical history: arthritis, atrial fibrillation, CHF, COPD, coronary artery disease, CVA, diabetes, GERD, hyperlipidemia, hypertension, pulmonary embolus, other Psychiatric history: anxiety, depression - Past Surgical History Surgical History: herniorrhaphy, knee replacement, orthopedic, other, pacemaker/ AICD, other - Social History Smoking Status: Former smoker Smokeless Tobacco Status: No Alcohol use: none Drug use: none - Family History Father Adopted: No Family Member Ethnicity: Non- Living Status: Hx Family Cardiac Disorders: No Hx Family Respiratory Disorders: No Hx Family Cancer: Yes (Leukemia) Hx Family GI Disorders: No Hx Family Endocrine Disorder: No Hx Family Neuromuscular Disorders: No Hx Family Neurologic Disorders: No Hx Family HEENT Disorders: No Hx Family Autoimmune Disorders: No Brother Family Member Ethnicity: Non- Living Status: Still Living Sister Family Member Ethnicity: Non- Living Status: Still Living Mother Adopted: No Family Member Ethnicity: Non- Twin of Family Member: Yes Living Status: Still Living Hx Family Cardiac Disorders: Yes (CHF, Afib) Hx Family Respiratory Disorders: No Hx Family Cancer: Yes (father leukemia) Hx Family GI Disorders: No Hx Family Endocrine Disorder: No Hx Family Neuromuscular Disorders: No Hx Family Neurologic Disorders: No Hx Family HEENT Disorders: No Hx Family Autoimmune Disorders: Yes (arthritis) Medications and Allergies Aspirin Enteric Coated [Aspirin EC] 81 mg PO DAILY #0 04/09/15 [History] Rivaroxaban [Xarelto] 20 mg PO DAILY #0 04/09/15 [History] Albuterol Sulfate [Proair Hfa] 2 puff IH Q4H PRN 12/14/16 [History] Atorvastatin [Lipitor] 40 mg PO HS 12/14/16 [History] Gabapentin [Neurontin] 400 mg PO BID 12/14/16 [History] Pantoprazole Sodium [Protonix] 40 mg PO DAILY 12/14/16 [History] Polyethylene Glycol 3350 [MiraLAX Powder Bulk 17.9 Oz] 17 gm PO DAILY PRN [History] Sennosides/Docusate Sodium [Senna-Docusate Sodium Tablet] 1 tab PO BID PRN 12/14 [History] Tizanidine HCl [Zanaflex] 2 mg PO BID 12/14/16 [History] DULoxetine [Cymbalta] 30 mg PO DAILY 02/14/17 [History] Tamsulosin [Flomax] 0.4 mg PO BID 02/14/17 [History] Amiodarone [Cordarone] 200 mg PO DAILY 07/05/17 [History] Capsaicin [Arthritis Pain Relief] 1 appl TP BID PRN 07/05/17 [History] Finasteride [Proscar] 5 mg PO DAILY 07/05/17 [History] Furosemide [Lasix] 40 mg PO BID 07/05/17 [History] Lidocaine 4% CRM (LMX) [Lmx 4] 1 appl TP TID 07/05/17 [History] Memantine HCl 10 mg PO BID 07/05/17 [History] Tiotropium Br/Olodaterol HCl [Stiolto Respimat Inhal Perry] 2 puff IH DAILY 11/17 [History] metOLazone [Zaroxolyn] 2.5 mg PO BID 07/20/17 [History] Cholecalciferol (D-3) [Vitamin D] 2,000 unit PO DAILY 10/04/17 [History] Eucerin Creme 1 appl TP QID PRN 10/04/17 [History] Fluticasone Propionate Nasal [Flonase] 100 mcg NS DAILY 10/04/17 [History] Fluticasone/Salmeterol [Advair 250-50 Diskus] 1 puff IH BID 10/04/17 [History] LORazepam [Ativan] 0.5 mg PO HS 10/04/17 [History] Lubiprostone [Amitiza] 16 mcg PO BID 10/04/17 [History] Melatonin [Melatin] 9 mg PO HS 10/04/17 [History] Methotrexate [Otrexup] 10 mg PO TH 10/04/17 [History] Metoprolol XL (24 HR) Succ [Toprol Xl] 12.5 mg PO QPM 10/04/17 [History] Spironolactone [Aldactone] 100 mg PO DAILY 10/04/17 [History] Trazodone HCl 200 mg PO HS 10/04/17 [History] OxyCODONE Immed Rel [Roxicodone 10 MG] 10 mg PO QID PRN 2 Days #8 tablet [Rx] Lidocaine Patch [Lidoderm 5% patch] 1 patch TP DAILY 10/22/17 [History] 3 Allergy/AdvReac Type Severity Reaction Status Date / Time IVP DYE Allergy Anaphylaxis Uncoded 10/04/17 13:23 Review of Systems All systems PM: The remainder of the systems were reviewed and are negative General Surgery Exam Initial Vital Signs Temp Pulse Resp BP Pulse Ox 97.9 F 82 18 102/68 94 10/22/17 02:20 10/22/17 02:20 10/22/17 02:20 10/22/17 02:20 10/22/17 02:20 - General physical appearance well developed, well nourished, no distress, obese - Eyes negative: icteric - ENT normal mucosa - Neck trachea midline - Respiratory normal expansion, normal respiratory effort, clear to auscultation - Cardiovascular Cardiovascular exam: Present: RRR, no murmurs/rubs/gallops - Abdomen Abdomen general surgery: Present: bowel sounds present (hypoactive), soft, distended, tender Abdominal Tenderness: Present: diffusely (worse in RLQ, LLQ) - Incision Incision: Present: clean and dry, intact - Integumentary Integumentary general surgery: Present: warm and dry, other (bruising near surgical wounds) - Musculoskeletal Present: normal posture Results - Labs 10/22/17 09:02 10/22/17 09:02 Abnormal lab results WBC 4.1 K/mcL (4.3-11.1) L 10/22/17 09:02 Hgb 12.2 g/dL (12.9-16.9) L 10/22/17 09:02 RDW 15.5 % (11.5-14.5) H 10/22/17 09:02 Sodium 132 mEq/L (136-145) L 10/22/17 09:02 Potassium 2.9 mEq/L (3.5-5.1) L 10/22/17 09:02 Chloride 86 mEq/L (98-107) L 10/22/17 09:02 Carbon Dioxide 37 mEq/L (23-29) H 10/22/17 09:02 BUN 40 mg/dL (8-23) H 10/22/17 09:02 Creatinine 1.52 mg/dL (0.70-1.30) H 10/22/17 09:02 Est GFR ( Amer) 56 (> 60) L 10/22/17 09:02 Est GFR (Non-Af Amer) 46 (> 60) L 10/22/17 09:02 Glucose 119 mg/dL (70-105) H 10/22/17 09:02 POC Glucose 132 mg/dL (70-99) H 10/22/17 02:51 Serum Total Protein 6.2 g/dL (6.4-8.9) L 10/22/17 09:02 Albumin 3.2 g/dL (3.5-5.7) L 10/22/17 09:02 Diabetes panel 10/22/17 Range/Units 09:02 Sodium 132 L (136-145) mEq/L Potassium 2.9 L (3.5-5.1) mEq/L Chloride 86 L (98-107) mEq/L Carbon Dioxide 37 H (23-29) mEq/L BUN 40 H (8-23) mg/dL Creatinine 1.52 H (0.70-1.30) mg/dL Glucose 119 H (70-105) mg/dL Calcium 9.0 (8.6-10.3) mg/dL AST 34 (13-39) Units/L ALT 50 (7-52) Units/L Alkaline Phosphatase 103 (34-104) Units/L Albumin 3.2 L (3.5-5.7) g/dL Calcium panel 10/22/17 Range/Units 09:02 Calcium 9.0 (8.6-10.3) mg/dL Albumin 3.2 L (3.5-5.7) g/dL Pituitary panel 10/22/17 Range/Units 09:02 Sodium 132 L (136-145) mEq/L Potassium 2.9 L (3.5-5.1) mEq/L Chloride 86 L (98-107) mEq/L Carbon Dioxide 37 H (23-29) mEq/L BUN 40 H (8-23) mg/dL Creatinine 1.52 H (0.70-1.30) mg/dL Glucose 119 H (70-105) mg/dL Calcium 9.0 (8.6-10.3) mg/dL Adrenal panel 10/22/17 Range/Units 09:02 Sodium 132 L (136-145) mEq/L Potassium 2.9 L (3.5-5.1) mEq/L Chloride 86 L (98-107) mEq/L Carbon Dioxide 37 H (23-29) mEq/L BUN 40 H (8-23) mg/dL Creatinine 1.52 H (0.70-1.30) mg/dL Glucose 119 H (70-105) mg/dL Calcium 9.0 (8.6-10.3) mg/dL Total Bilirubin 0.7 (0.3-1.0) mg/dL AST 34 (13-39) Units/L ALT 50 (7-52) Units/L Alkaline Phosphatase 103 (34-104) Units/L Albumin 3.2 L (3.5-5.7) g/dL All other labs normal. <Elotn Ramírez - Last Filed: 10/23/17 00:02> Date of Encounter: 10/22/17 History of Present Illness HPI: Mr. Issa is a 67 year old male Review of Systems All systems PM: The remainder of the systems were reviewed and are negative General Surgery Exam Initial Vital Signs Temp Pulse Resp BP Pulse Ox 97.9 F 82 18 102/68 94 10/22/17 02:20 10/22/17 02:20 10/22/17 02:20 10/22/17 02:20 10/22/17 02:20 Results - Labs 10/22/17 09:02 10/22/17 09:02 Abnormal lab results WBC 4.1 K/mcL (4.3-11.1) L 10/22/17 09:02 Hgb 12.2 g/dL (12.9-16.9) L 10/22/17 09:02 RDW 15.5 % (11.5-14.5) H 10/22/17 09:02 Sodium 132 mEq/L (136-145) L 10/22/17 09:02 Potassium 2.9 mEq/L (3.5-5.1) L 10/22/17 09:02 Chloride 86 mEq/L (98-107) L 10/22/17 09:02 Carbon Dioxide 37 mEq/L (23-29) H 10/22/17 09:02 BUN 40 mg/dL (8-23) H 10/22/17 09:02 Creatinine 1.52 mg/dL (0.70-1.30) H 10/22/17 09:02 Est GFR ( Amer) 56 (> 60) L 10/22/17 09:02 Est GFR (Non-Af Amer) 46 (> 60) L 10/22/17 09:02 Glucose 119 mg/dL (70-105) H 10/22/17 09:02 POC Glucose 133 mg/dL (70-99) H 10/22/17 17:40 Serum Total Protein 6.2 g/dL (6.4-8.9) L 10/22/17 09:02 Albumin 3.2 g/dL (3.5-5.7) L 10/22/17 09:02 Diabetes panel 10/22/17 Range/Units 09:02 Sodium 132 L (136-145) mEq/L Potassium 2.9 L (3.5-5.1) mEq/L Chloride 86 L (98-107) mEq/L Carbon Dioxide 37 H (23-29) mEq/L BUN 40 H (8-23) mg/dL Creatinine 1.52 H (0.70-1.30) mg/dL Glucose 119 H (70-105) mg/dL Calcium 9.0 (8.6-10.3) mg/dL AST 34 (13-39) Units/L ALT 50 (7-52) Units/L Alkaline Phosphatase 103 (34-104) Units/L Albumin 3.2 L (3.5-5.7) g/dL Calcium panel 10/22/17 Range/Units 09:02 Calcium 9.0 (8.6-10.3) mg/dL Albumin 3.2 L (3.5-5.7) g/dL Pituitary panel 10/22/17 Range/Units 09:02 Sodium 132 L (136-145) mEq/L Potassium 2.9 L (3.5-5.1) mEq/L Chloride 86 L (98-107) mEq/L Carbon Dioxide 37 H (23-29) mEq/L BUN 40 H (8-23) mg/dL Creatinine 1.52 H (0.70-1.30) mg/dL Glucose 119 H (70-105) mg/dL Calcium 9.0 (8.6-10.3) mg/dL Adrenal panel 10/22/17 Range/Units 09:02 Sodium 132 L (136-145) mEq/L Potassium 2.9 L (3.5-5.1) mEq/L Chloride 86 L (98-107) mEq/L Carbon Dioxide 37 H (23-29) mEq/L BUN 40 H (8-23) mg/dL Creatinine 1.52 H (0.70-1.30) mg/dL Glucose 119 H (70-105) mg/dL Calcium 9.0 (8.6-10.3) mg/dL Total Bilirubin 0.7 (0.3-1.0) mg/dL AST 34 (13-39) Units/L ALT 50 (7-52) Units/L Alkaline Phosphatase 103 (34-104) Units/L Albumin 3.2 L (3.5-5.7) g/dL All other labs normal. - Attending Attestation patient seen and examined; I have reviewed all imaging, labs, and notes including this one. i agree with the above assessment and plan and wish to add the following.. 67M s/p lap rhett with Dr. Nye who presents with abdominal pain and distension. CT scan at OSH, which was reviewed and interpreted by me, demonstrates fluid collection at gallbladder fossa with a foci of gas, concerning for abscess. Will start IV abx, check AM labs; possible IR for drainage; No acute surgery tonight; pain control, NPO, abx;
[2017-10-22] MEDS: Potassium Chloride 40 MEQ in D5% in 0.9% NACL 1,000 ML IVC SCH ×2 (11:36→23:02)
[2017-10-22] MEDS: *HR* FentaNYL (PF) 100 MCG/2 ML VIAL IVP PRN ×3 (11:37→21:46)
[2017-10-22] MEDS: Piperacillin/Tazobactam 3.375 GM in 0.9 % Sodium Chloride Mini Bag 100 ML IVPB SCH ×2 (11:38→17:36)
[2017-10-22] MEDS: *HR* OxyCODONE Immed Rel 5 MG TABLET PO PRN (23:02)
[2017-10-23] MEDS: Piperacillin/Tazobactam 3.375 GM in 0.9 % Sodium Chloride Mini Bag 100 ML IVPB SCH ×3 (03:21→18:07)
[2017-10-23] MEDS: Melatonin 3 MG TABLET PO SCH ×2 (03:22→21:45)
[2017-10-23] MEDS: Metoprolol XL (24 HR) Succ 25 MG TAB.ER.24H PO SCH ×2 (04:20→18:05)
[2017-10-23 05:22] LABS: Basophils % 0.3 %; Eosinophils # 0.2 K/mcL (0.0-0.6); Eosinophils % 7.6 %; Hematocrit 37.4 % (37.5-50.1); Hemoglobin 12.2 g/dL (12.9-16.9); Immature Granulocytes % 0.7 % (0-4); Lymphocytes # 0.6 K/mcL (0.6-4.6); Lymphocytes % 19.2 %; Mean Corpuscular HGB Conc 32.6 g/dL (31.6-35.5); Mean Platelet Volume 9.5 fL (9.4-12.4); Monocytes # 0.1 K/mcL (0.0-1.3); Monocytes % 2.1 %; Platelet Count 143 K/mcL (140-400); Red Cell Distribution Width 15.6 % (11.5-14.5); Segmented Neutrophils % 70.1 %
[2017-10-23 05:44] LABS: BUN/Creatinine Ratio 23 (6-26); Blood Urea Nitrogen 30 mg/dL (8-23); Calcium 8.7 mg/dL (8.6-10.3); Carbon Dioxide 34 mEq/L (23-29); Chloride 94 mEq/L (98-107); Glucose 130 mg/dL (70-105); Magnesium 2.1 mg/dL (1.6-2.6); Osmolality,Calculated 292 (280-300); Phosphorous 2.1 mg/dL (2.7-4.5); Potassium 4.1 mEq/L (3.5-5.1); Sodium 137 mEq/L (136-145); eGFR For African Americans > 60 (> 60); eGFR For Non-African Americans 54 (> 60)
[2017-10-23] MEDS: Budesonide/Formoterol 80/4.5 MDI IH SCH ×2 (07:41→21:32)
[2017-10-23] MEDS: Finasteride 5 MG TABLET PO SCH (08:57)
[2017-10-23] MEDS: Aspirin Enteric Coated 81 MG Tablet PO SCH (08:58)
[2017-10-23] MEDS: Gabapentin 400 MG CAPSULE PO SCH ×2 (08:58→21:46)
[2017-10-23] MEDS: metOLazone 2.5 MG TABLET PO SCH ×2 (08:58→21:46)
[2017-10-23] MEDS: Furosemide 40 MG TABLET PO SCH ×2 (08:58→18:05)
[2017-10-23] MEDS: *HR* Amiodarone 200 MG TABLET PO SCH (08:58)
[2017-10-23] MEDS: tiZANidine 4 MG TABLET PO SCH ×2 (08:58→21:45)
[2017-10-23] MEDS: LUBIPROSTONE PO SCH ×2 (08:59→21:47)
[2017-10-23] MEDS: *HR* OxyCODONE Immed Rel 5 MG TABLET PO PRN ×2 (10:32→22:18)
--- NOTE | 2017-10-23 10:49 | General Surgery Progress Note ---
Date of Encounter: 10/23/17 Time of Encounter: 09:00 - Assessment and Plan (1) Abdominal pain Current Visit: Yes Status: Acute POD11 s/p laparoscopic cholecystectomy; discharge POD3 to rehab facility; developed abdomnal pain/distention, constipation, last BM 10/19 CT obtained showed fluid collection in gallbladder fossa, concern for biloma HIDA today shows no biliary leakage Plan: Continue Zosyn; AM labs and lactic acid unremarkable pain control and supportive care Dulcolax 20mg once Clear liquid diet, monitoring for nausea/vomiting, none at time of admission through today's encounter Qualifiers: Abdominal location: generalized Qualified Code(s): R10.84 - Generalized abdominal pain (2) Diastolic heart failure Current Visit: Yes Status: Acute Chronic diastolic, not in acute exacerbation. No evidence of orthopnea, dyspnea, pedal edema current visit Echocardiogram 07/05/17 shows LVEF 55%; mild left ventricular diastolic dysfunction. Continue Lasix 40mg PO BID; monitor BMP - Creat 1.3, under patient's baseline Qualifiers: Heart failure chronicity: chronic Qualified Code(s): I50.32 - Chronic diastolic (congestive) heart failure Subjective Narrative: Patient seen and evaluated at bedside, pain in modest control, denies fever, nausea, or vomiting. Patient continues to be constipated. Objective Vital Signs - Last 8 Hours Temp Pulse Resp BP Pulse Ox 10/23/17 07:50 98.6 F 67 16 123/71 92 10/23/17 07:41 18 91 10/23/17 05:03 98.6 F 70 15 102/66 95 Intake and Output 10/22/17 10/23/17 10/23/17 23:59 07:59 15:59 Intake Total 1350 / 1350 100 / 100 0 / 0 Output Total 0 / 0 0 / 0 Balance 1350 / 1350 100 / 100 0 / 0 Intake: IV Fluids 1350 / 1350 100 / 100 0.9 % Sodium Chloride 1,000 ML 250 / 250 @ 75 mls/hr IVC .[id number] [facility] Rx #:[id number] KCl 40 MEQ In D5% And 0.9% Nacl 1000 / 1000 1000 Ml 1,000 ML @ 100 mls/hr IVC .[id number] [facility] Rx#:[id number] Zosyn 3.375 GM In 0.9 % Sodium 100 / 100 100 / 100 Chloride (Mini-Bag +) 100 ML @ 25 mls/hr IVPB Q8H [facility] Rx#: [id number] Oral 0 / 0 0 / 0 0 / 0 Output: Urine 0 / 0 0 / 0 Other: Meal NPO Percent of Meal Consumed 0% # Bowel Movement Diapers 0 Blood Glucose* 133 143 - General physical appearance well developed, well nourished, no distress - Eyes normal ocular movement - ENT normal mucosa - Neck Neck exam: no lymphadectomy - Respiratory normal expansion, normal respiratory effort, clear to auscultation - Cardiovascular Cardiovascular exam: Present: RRR, no murmurs/rubs/gallops. Absent: JVD - Abdomen Abdomen: Present: soft, tender. Absent: guarding, rebound, rigid Additional Comments: small eccymosis without hematoma near R trocar incision; - Incision Incision: Present: clean and dry. Absent: inflamed, erythema - Integumentary no rash - Neurologic normal coordination, normal sensation - Musculoskeletal normal posture - Psychiatric speech is normal, memory intact - Labs 10/23/17 04:58 10/23/17 04:58 Diabetes panel 10/23/17 Range/Units 04:58 Sodium 137 (136-145) mEq/L Potassium 4.1 D (3.5-5.1) mEq/L Chloride 94 L (98-107) mEq/L Carbon Dioxide 34 H (23-29) mEq/L BUN 30 H (8-23) mg/dL Creatinine 1.32 H (0.70-1.30) mg/dL Glucose 130 H (70-105) mg/dL Calcium 8.7 (8.6-10.3) mg/dL Calcium panel 10/23/17 Range/Units 04:58 Calcium 8.7 (8.6-10.3) mg/dL Phosphorus 2.1 L (2.7-4.5) mg/dL Pituitary panel 10/23/17 Range/Units 04:58 Sodium 137 (136-145) mEq/L Potassium 4.1 D (3.5-5.1) mEq/L Chloride 94 L (98-107) mEq/L Carbon Dioxide 34 H (23-29) mEq/L BUN 30 H (8-23) mg/dL Creatinine 1.32 H (0.70-1.30) mg/dL Glucose 130 H (70-105) mg/dL Calcium 8.7 (8.6-10.3) mg/dL Adrenal panel 10/23/17 Range/Units 04:58 Sodium 137 (136-145) mEq/L Potassium 4.1 D (3.5-5.1) mEq/L Chloride 94 L (98-107) mEq/L Carbon Dioxide 34 H (23-29) mEq/L BUN 30 H (8-23) mg/dL Creatinine 1.32 H (0.70-1.30) mg/dL Glucose 130 H (70-105) mg/dL Calcium 8.7 (8.6-10.3) mg/dL Consult Discharge Plan - Plan Referrals: Able-Edda Banda DO [Primary Care Provider] -
[2017-10-23] MEDS: Potassium Chloride 40 MEQ in D5% in 0.9% NACL 1,000 ML IVC SCH (11:47)
[2017-10-23] MEDS ORDERED: Methylnaltrexone 12 MG/0.6 ML SYRINGE SQ ONE (12:35)
[2017-10-23] MEDS: *HR* LORazepam 0.5 MG TABLET PO SCH (21:45)
[2017-10-23] MEDS: traZODone 50 MG TABLET PO SCH (21:46)
[2017-10-23] MEDS: *HR* Rivaroxaban 10 MG TABLET PO SCH (23:25)
[2017-10-24] MEDS: Piperacillin/Tazobactam 3.375 GM in 0.9 % Sodium Chloride Mini Bag 100 ML IVPB SCH ×3 (04:03→19:01)
[2017-10-24 05:26] LABS: Basophils % 0.5 %; Eosinophils # 0.2 K/mcL (0.0-0.6); Eosinophils % 9.1 %; Hematocrit 37.8 % (37.5-50.1); Hemoglobin 12.4 g/dL (12.9-16.9); Immature Granulocytes % 0.5 % (0-4); Lymphocytes # 0.8 K/mcL (0.6-4.6); Lymphocytes % 35.9 %; Mean Corpuscular HGB Conc 32.8 g/dL (31.6-35.5); Mean Corpuscular Hemoglobin 29.3 pg (28.0-33.3); Mean Corpuscular Volume 89.4 fL (83.0-100.0); Mean Platelet Volume 9.6 fL (9.4-12.4); Monocytes # 0.1 K/mcL (0.0-1.3); Monocytes % 4.5 %; Neutrophils # 1.1 K/mcL (1.6-8.9); Platelet Count 139 K/mcL (140-400); Red Blood Count 4.23 M/mcL (4.19-5.50); Red Cell Distribution Width 15.5 % (11.5-14.5); Segmented Neutrophils % 49.5 %
[2017-10-24 05:43] LABS: BUN/Creatinine Ratio 19 (6-26); Blood Urea Nitrogen 26 mg/dL (8-23); Calcium 8.5 mg/dL (8.6-10.3); Carbon Dioxide 31 mEq/L (23-29); Chloride 94 mEq/L (98-107); Glucose 95 mg/dL (70-105); Osmolality,Calculated 277 (280-300); Potassium 4.1 mEq/L (3.5-5.1); Sodium 131 mEq/L (136-145); eGFR For African Americans > 60 (> 60); eGFR For Non-African Americans 52 (> 60)
[2017-10-24] MEDS: Budesonide/Formoterol 80/4.5 MDI IH SCH ×2 (07:59→20:53)
[2017-10-24] MEDS: *HR* Amiodarone 200 MG TABLET PO SCH (09:18)
[2017-10-24] MEDS: Furosemide 40 MG TABLET PO SCH ×2 (09:18→17:21)
[2017-10-24] MEDS: metOLazone 2.5 MG TABLET PO SCH ×2 (09:18→21:07)
[2017-10-24] MEDS: Finasteride 5 MG TABLET PO SCH (09:18)
[2017-10-24] MEDS: Gabapentin 400 MG CAPSULE PO SCH ×2 (09:18→21:07)
[2017-10-24] MEDS: Aspirin Enteric Coated 81 MG Tablet PO SCH (09:18)
[2017-10-24] MEDS: tiZANidine 4 MG TABLET PO SCH ×2 (09:21→21:08)
--- NOTE | 2017-10-24 10:18 | Event Note ---
Date of Encounter: 10/24/17 Time of Encounter: 08:00 Mr. Issa is s/p lap cholecystectomy on 10/12/17. On POD3 10/15/17, patient had was tolerating his diet, voiding, had a BM, pain in control, was discharged to a rehab facility. During his rehab, patient had a single bowel movement, endorsed constipation, abdominal pain/distension. Was transferred to [facility] then to [facility] for surgical evaluation. Was admitted to surgical services at [facility] over the weekend, in the setting of ileus/abdominal pain with CT showing pocket in gallbladder fossa concerning for biloma. HIDA scan showed no biloma, patient deemed no surgical need at this time. Today, Mr. Issa states his pain is improved after his large bowel movement yesterday. He is tolerating his clear liquid diet without nausea or vomiting. We will start him on regular diet today. Of note, patient CBCs show progressive, new onset leukopenia/neutropenia. He has a history of recent Methotrexate use for RA, however he discontinued this 2 weeks ago. I have consulted heme/onc who agrees to evalute his mild neutropenia. No LAD, afebrile, he has a 1.5x1cm amphtous ulcer in oral mucosa. Spoke to admitting hospitalist who has agreed to see patient and transfer care to medicine service. Surgery plans to sign-off today, thank you.
--- NOTE | 2017-10-24 10:50 | Internal Medicine Consult Note ---
Date of Encounter: 10/24/17 Time of Encounter: 10:36 - Assessment and plan (1) Leukopenia Current Visit: Yes Status: Acute Assessment and plan: 1. Will order peripheral blood smear for pathology review. 2. HEM/ONC already consulted by surgery service. 3. Will order STAT blood cultures to rule out sepsis -- however, I have very low suspicion of sepsis/bacteremia. 4. Continue Zosyn for now until blood cultures return negative. 5. Hold Methotrexate. 6. Repeat CBC in AM and daily. Qualifiers: Leukopenia type: unspecified Qualified Code(s): D72.819 - Decreased white blood cell count, unspecified (2) Thrombocytopenia Current Visit: Yes Status: Acute Assessment and plan: 1. As above for leukopenia. (3) Atrial fibrillation Current Visit: Yes Status: Chronic Assessment and plan: 1. Continue Amiodarone and Xarelto. 2. Patient has pacemaker which was interrogated last admission per cardiology. 3. Currently rate controlled. Qualifiers: Atrial fibrillation type: chronic Qualified Code(s): I48.2 - Chronic atrial fibrillation (4) CKD (chronic kidney disease) stage 3, GFR 30-59 ml/min Current Visit: Yes Status: Chronic Assessment and plan: 1. Monitor renal function. 2. Currently almost at baseline. 3. Monitor renal function and if it does not improve and/or worsens, will need nephrology consult. (5) Diastolic CHF, chronic Current Visit: Yes Status: Chronic Assessment and plan: 1. No acute process. 2. Monitor I/O and daily weight. 3. May need medication adjustment if renal function and/or clinical condition dictate. (6) Abdominal pain Current Visit: Yes Status: Acute Assessment and plan: 1. Will defer to surgery service -- Dr. Nye consulted. Qualifiers: Abdominal location: generalized Qualified Code(s): R10.84 - Generalized abdominal pain (7) DVT prophylaxis Current Visit: Yes Status: Acute Assessment and plan: 1. On Xarelto. 2. May need dose adjustment if renal function declines. Internal Medicine - CN: HPI - Data of Consult Consult date: 10/24/17 Requesting Physician: Dr. Nye - Consult Narrative Reason for consult: transfer service request to hospitalist group History of present illness: Mr. Issa is a 67 year old male who was admitted to Surgery service 2 days ago for concern of pos-operative complications of cholecystectomy. Despite continued abdominal pain and continued nausea, there have been no surgical complications found thus far. However, he has had some ongoing chronic medical issues and new onset leukopenia and thrombocytopenia. As such, the surgery service contacted me requesting to transfer the patient to the hospital service for ongoing medical care and addressing his comorbidities. I accepted the patient in transfer and requested that surgery continue to see him in a consultative basis regarding his abdominal pain and postop issues. Upon my assessment of the patient, he is sleeping but easily arousable. He denies any complaints but he does admit to having continued nausea and abdominal pain with very little oral intake. He feels his abdomen is distended and quite tender at the surgical site. Otherwise, he has no complaints. He has no chest pain, shortness breath, fevers, chills, night sweats, dysuria, hematuria, calf pain or cough. Patient has remained on antibiotics, but I see no blood cultures that were drawn. Reportedly, he had blood cultures drawn at the outside facility/[facility]. I reviewed his medication list and note that he had been on methotrexate for reported rheumatoid arthritis. I inquired about this, and he states he only took this medication for a few weeks , and then he stopped it prior to surgery. He states he has not been on methotrexate since then. However, he may have been receiving it at the [place] prior to readmission to [place]. I cannot confirm that at this time. Past Med Surg Social Fam HX - Past Medical History Attestation: Yes The following information was validated with the patient. Source: patient, old records reviewed Medical history: arthritis, atrial fibrillation, CHF, COPD, coronary artery disease, CVA, diabetes, GERD, hyperlipidemia, hypertension, pulmonary embolus Psychiatric history: anxiety, depression - Past Surgical History Surgical History: cholecystectomy, herniorrhaphy, knee replacement, orthopedic, other, pacemaker/AICD - Social History Smoking Status: Former smoker Smokeless Tobacco Status: No Alcohol use: none Drug use: none Current living situation: [facility] Activity Level: Independent ambulation Recent Out of Country Travel Within the Last 8 Weeks: No - Family History Father Adopted: No Family Member Ethnicity: Non- Living Status: Hx Family Cardiac Disorders: No Hx Family Respiratory Disorders: No Hx Family Cancer: Yes (Leukemia) Hx Family GI Disorders: No Hx Family Endocrine Disorder: No Hx Family Neuromuscular Disorders: No Hx Family Neurologic Disorders: No Hx Family HEENT Disorders: No Hx Family Autoimmune Disorders: No Brother Family Member Ethnicity: Non- Living Status: Still Living Sister Family Member Ethnicity: Non- Living Status: Still Living Mother Adopted: No Family Member Ethnicity: Non- Twin of Family Member: Yes Living Status: Still Living Hx Family Cardiac Disorders: Yes (CHF, Afib) Hx Family Respiratory Disorders: No Hx Family Cancer: Yes (father leukemia) Hx Family GI Disorders: No Hx Family Endocrine Disorder: No Hx Family Neuromuscular Disorders: No Hx Family Neurologic Disorders: No Hx Family HEENT Disorders: No Hx Family Autoimmune Disorders: Yes (arthritis) - Constitutional Constitutional: no chills, no fever(s), no night sweats - EENT Eyes: no blurry vision, no change in vision Ears: no ear pain, no tinnitus Nose, mouth and throat: no nasal congestion, no sinus pressure, no sore throat - Cardiovascular Cardiovascular ROS IM: no chest pain, no dyspnea, no orthopnea, no paroxysmal nocturnal dyspnea, no syncope - Respiratory Respiratory: no cough, no dyspnea, no hemoptysis, no wheezing, no pain on inspiration, no chest congestion, no excessive phlegm production - Gastrointestinal Gastrointestinal: abdominal pain, bloating, nausea, no diarrhea, no hematemesis , no hematochezia, no melena, no vomiting - Genitourinary Genitourinary ROS male: no dysuria, no flank pain, no hematuria - Musculoskeletal Musculoskeletal ROS IM: no arthralgias, no back pain, no joint swelling, no limited range of motion, no muscle cramps - Integumentary Integumentary IM: no rash, no jaundice - Neurological Neurological ROS: no dizziness, no focal weakness, no frequent falls, no headache(s) - Psychiatric Psychiatric: no panic attacks - Endocrine Endocrine IM: no polydipsia, no polyuria - Hematologic/Lymphatic Hematologic/Lymphatic: no easy bleeding, no easy bruising, no lymphadenopathy Internal Medicine - CN: Meds Aspirin Enteric Coated [Aspirin EC] 81 mg PO DAILY #0 04/09/15 [History] Rivaroxaban [Xarelto] 20 mg PO DAILY #0 04/09/15 [History] Albuterol Sulfate [Proair Hfa] 2 puff IH Q4H PRN 12/14/16 [History] Atorvastatin [Lipitor] 40 mg PO HS 12/14/16 [History] Gabapentin [Neurontin] 400 mg PO BID 12/14/16 [History] Pantoprazole Sodium [Protonix] 40 mg PO DAILY 12/14/16 [History] Polyethylene Glycol 3350 [MiraLAX Powder Bulk 17.9 Oz] 17 gm PO DAILY PRN [History] Sennosides/Docusate Sodium [Senna-Docusate Sodium Tablet] 1 tab PO BID PRN 12/14 [History] Tizanidine HCl [Zanaflex] 2 mg PO BID 12/14/16 [History] DULoxetine [Cymbalta] 30 mg PO DAILY 02/14/17 [History] Tamsulosin [Flomax] 0.4 mg PO BID 02/14/17 [History] Amiodarone [Cordarone] 200 mg PO DAILY 07/05/17 [History] Capsaicin [Arthritis Pain Relief] 1 appl TP BID PRN 07/05/17 [History] Finasteride [Proscar] 5 mg PO DAILY 07/05/17 [History] Furosemide [Lasix] 40 mg PO BID 07/05/17 [History] Lidocaine 4% CRM (LMX) [Lmx 4] 1 appl TP TID 07/05/17 [History] Memantine HCl 10 mg PO BID 07/05/17 [History] Tiotropium Br/Olodaterol HCl [Stiolto Respimat Inhal [place]] 2 puff IH DAILY 11/17 [History] metOLazone [Zaroxolyn] 2.5 mg PO BID 07/20/17 [History] Cholecalciferol (D-3) [Vitamin D] 2,000 unit PO DAILY 10/04/17 [History] Eucerin Creme 1 appl TP QID PRN 10/04/17 [History] Fluticasone Propionate Nasal [Flonase] 100 mcg NS DAILY 10/04/17 [History] Fluticasone/Salmeterol [Advair 250-50 Diskus] 1 puff IH BID 10/04/17 [History] LORazepam [Ativan] 0.5 mg PO HS 10/04/17 [History] Lubiprostone [Amitiza] 16 mcg PO BID 10/04/17 [History] Melatonin [Melatin] 9 mg PO HS 10/04/17 [History] Methotrexate [Otrexup] 10 mg PO TH 10/04/17 [History] Metoprolol XL (24 HR) Succ [Toprol Xl] 12.5 mg PO QPM 10/04/17 [History] Spironolactone [Aldactone] 100 mg PO DAILY 10/04/17 [History] Trazodone HCl 200 mg PO HS 10/04/17 [History] OxyCODONE Immed Rel [Roxicodone 10 MG] 10 mg PO QID PRN 2 Days #8 tablet [Rx] Lidocaine Patch [Lidoderm 5% patch] 1 patch TP DAILY 10/22/17 [History] 3 Allergy/AdvReac Type Severity Reaction Status Date / Time IVP DYE Allergy Anaphylaxis Uncoded 10/04/17 13:23 Internal Medicine - CN: Exam - Constitutional Vitals: Temp Pulse Resp BP Pulse Ox 98.2 F 62 16 95/63 94 10/24/17 07:43 10/24/17 07:43 10/24/17 07:59 10/24/17 07:43 10/24/17 07:59 General appearance IM: Present: cooperative, A&O X 3, pleasant, no acute distress, answers questions appropriately - Head Head exam: Present: atraumatic - Eye Eye exam: Present: EOMI, normal appearance, PERRL. Absent: scleral icterus Pupils: Present: normal accommodation - ENT ENT exam: Present: mucous membranes dry, normal exam, normal oropharynx - Neck Neck exam general surgery: Present: full ROM, supple. Absent: lymphadenopathy, tenderness, nuchal rigidity, thyromegaly - Respiratory Respiratory exam: Present: CTAB. Absent: chest wall tenderness, rales, rhonchi , wheezes - Cardiovascular Cardiovascular exam IM: Present: distant heart sounds, RRR, +S1, +S2. Absent: diastolic murmur, systolic murmur - GI/Abdominal GI/Abdominal exam IM: Present: distended, hypoactive bowel sounds, tenderness ( moderate at surgical site; no erythema, fluctuance, or warmth; no drainage at surgical site), no peritoneal signs. Absent: hepatomegaly - Extremities Exam Extremities exam IM: Present: normal capillary refill, pedal edema (1+), warm, radial pulses palpable and symmetrical. Absent: calf tenderness, joint swelling , tenderness - Back Exam Back exam: Present: normal inspection. Absent: CVA tenderness (L), CVA tenderness (R) - Neurological Exam Neurological exam: Present: alert, CN II-XII intact, oriented X3. Absent: no focal deficits (decreased sensation in feet -- chronic/not new) - Psychiatric Psychiatric exam: Present: normal affect, normal mood - Skin Skin exam IM: Present: dry, warm. Absent: rash Internal Medicine - CN: Reslt - Labs CBC & Chem 7: 10/24/17 04:58 10/24/17 04:58 Labs: Short CBC 10/24/17 Range/Units 04:58 WBC 2.2 L (4.3-11.1) K/mcL Hgb 12.4 L (12.9-16.9) g/dL Hct 37.8 (37.5-50.1) % Plt Count 139 L (140-400) K/mcL Neutrophils # 1.1 L (1.6-8.9) K/mcL BMP 10/24/17 04:58 Sodium 131 L Potassium 4.1 Chloride 94 L Carbon Dioxide 31 H BUN 26 H Creatinine 1.37 H Glucose 95 Calcium 8.5 L - Impressions Impressions Bile Acid Absorption NM 10/23/17 09:35 IMPRESSION: No findings of bile leak status post cholecystectomy. Note that the examination was terminated at 40 minutes due to patient pain. D/ / Asif Cage MD / Asif Cage MD Interpreting Provider: Asif Cage MD Consult Discharge Plan - Plan Referrals: Krish-Edda Banda DO [Primary Care Provider] -
[2017-10-24 11:29] LABS: Albumin 3.4 g/dL (3.5-5.7); Albumin/Globulin Ratio 1.1 (1.1-2.2); Bilirubin,Total 0.5 mg/dL (0.3-1.0); Calcium 9.2 mg/dL (8.6-10.3); Globulin 3.1 g/dL (2.4-3.5); Total Protein 6.5 g/dL (6.4-8.9)
[2017-10-24] MEDS: LUBIPROSTONE PO SCH ×2 (16:51→21:08)
[2017-10-24] MEDS ORDERED: *HR* Rivaroxaban 10 MG TABLET PO SCH (17:00)
[2017-10-24] MEDS: *HR* Rivaroxaban 10 MG TABLET PO SCH (17:21)
[2017-10-24] MEDS: Metoprolol XL (24 HR) Succ 25 MG TAB.ER.24H PO SCH (17:21)
[2017-10-24] MEDS: *HR* OxyCODONE Immed Rel 5 MG TABLET PO PRN (17:24)
[2017-10-24] MEDS: traZODone 50 MG TABLET PO SCH (21:07)
[2017-10-24] MEDS: Melatonin 3 MG TABLET PO SCH (21:07)
[2017-10-24] MEDS: *HR* LORazepam 0.5 MG TABLET PO SCH (21:08)
[2017-10-25] MEDS: Piperacillin/Tazobactam 3.375 GM in 0.9 % Sodium Chloride Mini Bag 100 ML IVPB SCH ×3 (03:28→20:30)
[2017-10-25 05:35] LABS: Basophils % 0.3 %; Eosinophils # 0.3 K/mcL (0.0-0.6); Eosinophils % 9.1 %; Hematocrit 38.1 % (37.5-50.1); Hemoglobin 12.6 g/dL (12.9-16.9); Immature Granulocytes % 0.6 % (0-4); Lymphocytes # 0.8 K/mcL (0.6-4.6); Lymphocytes % 25.7 %; Mean Corpuscular HGB Conc 33.1 g/dL (31.6-35.5); Mean Corpuscular Hemoglobin 28.7 pg (28.0-33.3); Mean Corpuscular Volume 86.8 fL (83.0-100.0); Mean Platelet Volume 9.5 fL (9.4-12.4); Monocytes # 0.1 K/mcL (0.0-1.3); Monocytes % 4.1 %; Neutrophils # 1.9 K/mcL (1.6-8.9); Platelet Count 122 K/mcL (140-400); Red Blood Count 4.39 M/mcL (4.19-5.50); Red Cell Distribution Width 15.5 % (11.5-14.5); Segmented Neutrophils % 60.2 %
[2017-10-25] MEDS: Budesonide/Formoterol 80/4.5 MDI IH SCH ×2 (08:18→22:18)
[2017-10-25] MEDS: Furosemide 40 MG TABLET PO SCH ×2 (09:02→18:15)
[2017-10-25] MEDS: Finasteride 5 MG TABLET PO SCH (09:02)
[2017-10-25] MEDS: tiZANidine 4 MG TABLET PO SCH ×2 (09:02→21:33)
[2017-10-25] MEDS: Aspirin Enteric Coated 81 MG Tablet PO SCH (09:02)
[2017-10-25] MEDS: *HR* Amiodarone 200 MG TABLET PO SCH (09:03)
[2017-10-25] MEDS: metOLazone 2.5 MG TABLET PO SCH ×2 (09:03→21:34)
[2017-10-25] MEDS: Gabapentin 400 MG CAPSULE PO SCH ×2 (09:03→21:33)
[2017-10-25] MEDS: LUBIPROSTONE PO SCH ×2 (09:04→21:36)
--- NOTE | 2017-10-25 10:00 | Oncology Inp Consult Note ---
<Jayla Eric L - Last Filed: 10/25/17 13:50> Date of Encounter: 10/25/17 Time of Encounter: 10:00 Assessment and Plan (1) Leukopenia Status: Acute Assessment and plan: Mild neutropenia noted yesterday with ANC 1.1. Today ANC normal. Leukopenia improving. Reviewed abdominal imaging with no noted evidence of splenomegaly. Etiology unclear, may be secondary to unknown underlying infectious or recent surgical or inflammatory process. Cytopenias do not appear to be secondary to methotrexate use as he stopped taking about 3 weeks ago and cytopenias appear very acute. Expect counts to continue to improve, however, if cytopenias continue or worsen , may warrant further hematological workup. No other workup at this time. Continue to monitor. Qualifiers: Leukopenia type: unspecified Qualified Code(s): D72.819 - Decreased white blood cell count, unspecified (2) Thrombocytopenia Status: Acute Assessment and plan: Mild and acute in nature. Reviewed abdominal imaging with no noted evidence of liver disease. No history of alcohol abuse. No s/s bleeding. Hgb 12.6. Etiology unclear, may be secondary to unknown underlying infectious or recent surgical or inflammatory process. Continue to trend. Expect counts to continue to improve, however, if cytopenias continue or worsen, may warrant further hematological workup. Will check B12, folate and iron studies and replete if necessary, no other workup at this time. Continue to monitor. Please refer to Dr. Davis's attestation below for additional details. - Data of Consult Patient: new to practice Consult date: 10/25/17 Requesting Physician: Hung Alexander Primary Care Provider: Edda Rutherford - Consult Narrative Reason for consult: Neutropenia, thrombocytopenia History of present illness: Mr. Issa is a 67 year old male who recently underwent lap cholecystectomy on . He was subsequently discharged to rehab facility. He began to experience abdominal pain and constipation which led to his presentation at OSH with CT revealed fluid collection in gallbladder fossa and constipation per report. He was transferred [facility] for further workup. Initial CT with concern for biloma however HIDA scan shows no biliary leakage, therefore no surgical intervention necessary. He has been transferred to hospital service for continued management. He continues to experience abdominal pain, nausea, abdominal distention with very little oral intake. Hematology has been consulted for acute neutropenia and thrombocytopenia. Mr. Issa does report a history of RA for which sometime about 18 years ago he took Methotrexate for about 1 year total. He recently started taking methotrexate about 2 months ago due to continued and worsening pain related to RA. He stopped taking this medication about 3 weeks ago to date. He at one time followed with a community relations advisor but has not been seen recently. Past Med Surg Social Fam HX - Past Medical History Medical history: arthritis, atrial fibrillation, CHF, COPD, coronary artery disease, CVA, diabetes, GERD, hyperlipidemia, hypertension, pulmonary embolus Psychiatric history: anxiety, depression - Past Surgical History Surgical History: cholecystectomy, herniorrhaphy, knee replacement, orthopedic, other, pacemaker/AICD - Social History Smoking Status: Former smoker Smokeless Tobacco Status: No Alcohol use: none Drug use: none - Family History Father Adopted: No Family Member Ethnicity: Non- Living Status: Hx Family Cardiac Disorders: No Hx Family Respiratory Disorders: No Hx Family Cancer: Yes (Leukemia) Hx Family GI Disorders: No Hx Family Endocrine Disorder: No Hx Family Neuromuscular Disorders: No Hx Family Neurologic Disorders: No Hx Family HEENT Disorders: No Hx Family Autoimmune Disorders: No Brother Family Member Ethnicity: Non- Living Status: Still Living Sister Family Member Ethnicity: Non- Living Status: Still Living Mother Adopted: No Family Member Ethnicity: Non- Twin of Family Member: Yes Living Status: Still Living Hx Family Cardiac Disorders: Yes (CHF, Afib) Hx Family Respiratory Disorders: No Hx Family Cancer: Yes (father leukemia) Hx Family GI Disorders: No Hx Family Endocrine Disorder: No Hx Family Neuromuscular Disorders: No Hx Family Neurologic Disorders: No Hx Family HEENT Disorders: No Hx Family Autoimmune Disorders: Yes (arthritis) Medications and Allergies Aspirin Enteric Coated [Aspirin EC] 81 mg PO DAILY #0 04/09/15 [History] Rivaroxaban [Xarelto] 20 mg PO DAILY #0 04/09/15 [History] Albuterol Sulfate [Proair Hfa] 2 puff IH Q4H PRN 12/14/16 [History] Atorvastatin [Lipitor] 40 mg PO HS 12/14/16 [History] Gabapentin [Neurontin] 400 mg PO BID 12/14/16 [History] Pantoprazole Sodium [Protonix] 40 mg PO DAILY 12/14/16 [History] Polyethylene Glycol 3350 [MiraLAX Powder Bulk 17.9 Oz] 17 gm PO DAILY PRN [History] Sennosides/Docusate Sodium [Senna-Docusate Sodium Tablet] 1 tab PO BID PRN 12/14 [History] Tizanidine HCl [Zanaflex] 2 mg PO BID 12/14/16 [History] DULoxetine [Cymbalta] 30 mg PO DAILY 02/14/17 [History] Tamsulosin [Flomax] 0.4 mg PO BID 02/14/17 [History] Amiodarone [Cordarone] 200 mg PO DAILY 07/05/17 [History] Capsaicin [Arthritis Pain Relief] 1 appl TP BID PRN 07/05/17 [History] Finasteride [Proscar] 5 mg PO DAILY 07/05/17 [History] Furosemide [Lasix] 40 mg PO BID 07/05/17 [History] Lidocaine 4% CRM (LMX) [Lmx 4] 1 appl TP TID 07/05/17 [History] Memantine HCl 10 mg PO BID 07/05/17 [History] Tiotropium Br/Olodaterol HCl [Stiolto Respimat Inhal [place]] 2 puff IH DAILY 11/17 [History] metOLazone [Zaroxolyn] 2.5 mg PO BID 07/20/17 [History] Cholecalciferol (D-3) [Vitamin D] 2,000 unit PO DAILY 10/04/17 [History] Eucerin Creme 1 appl TP QID PRN 10/04/17 [History] Fluticasone Propionate Nasal [Flonase] 100 mcg NS DAILY 10/04/17 [History] Fluticasone/Salmeterol [Advair 250-50 Diskus] 1 puff IH BID 10/04/17 [History] LORazepam [Ativan] 0.5 mg PO HS 10/04/17 [History] Lubiprostone [Amitiza] 16 mcg PO BID 10/04/17 [History] Melatonin [Melatin] 9 mg PO HS 10/04/17 [History] Methotrexate [Otrexup] 10 mg PO TH 10/04/17 [History] Metoprolol XL (24 HR) Succ [Toprol Xl] 12.5 mg PO QPM 10/04/17 [History] Spironolactone [Aldactone] 100 mg PO DAILY 10/04/17 [History] Trazodone HCl 200 mg PO HS 10/04/17 [History] OxyCODONE Immed Rel [Roxicodone 10 MG] 10 mg PO QID PRN 2 Days #8 tablet [Rx] Lidocaine Patch [Lidoderm 5% patch] 1 patch TP DAILY 10/22/17 [History] 3 Allergy/AdvReac Type Severity Reaction Status Date / Time IVP DYE Allergy Anaphylaxis Uncoded 10/04/17 13:23 Constitutional: Present: anorexia, fatigue, weakness. Absent: fever(s), frequent falls, weight loss Eyes: Absent: change in vision Nose, mouth and throat: Absent: dysphagia Cardiovascular: Absent: chest pain, irregular heart rhythm Respiratory: Absent: cough, dyspnea Gastrointestinal: Present: as per HPI, abdominal pain, bloating, constipation, early satiety, nausea. Absent: vomiting Additional comments: denies dysuria or hematuria Musculoskeletal: Present: muscle weakness Integumentary: Absent: wounds Neurological: Absent: focal weakness, frequent falls Hematologic/Lymphatic: Present: as per HPI Oncology - Exam - Constitutional Vitals: Temp Pulse Resp BP Pulse Ox 97.8 F 63 16 91/60 95 10/25/17 06:29 10/25/17 06:29 10/25/17 08:18 10/25/17 06:29 10/25/17 08:18 General appearance: cooperative, no acute distress, obese, no febrile - Head Head exam: Present: atraumatic - ENT ENT exam: Present: mucous membranes moist - Respiratory Respiratory exam: Present: CTAB. Absent: respiratory distress - Cardiovascular Cardiovascular exam: Present: RRR, +S1, +S2 - GI/Abdominal GI/Abdominal exam: Present: distended, normal bowel sounds, soft, tenderness ( LUQ) - Extremities Exam Extremities exam: Present: pedal edema. Absent: calf tenderness - Neurological Exam Neurological exam: Present: alert, oriented X3, no focal deficits, strengths equal and symetr throughout - Psychiatric Psychiatric exam: Present: normal affect, normal mood - Skin Skin exam: Present: dry, intact, normal color, warm Oncology - Results Labs: Short CBC 10/25/17 Range/Units 05:10 WBC 3.2 L (4.3-11.1) K/mcL Hgb 12.6 L (12.9-16.9) g/dL Hct 38.1 (37.5-50.1) % Plt Count 122 L (140-400) K/mcL Neutrophils # 1.9 (1.6-8.9) K/mcL BMP 10/24/17 10:48 Sodium 130 L Potassium 4.0 Chloride 89 L Carbon Dioxide 34 H BUN 27 H Creatinine 1.55 H Glucose 127 H Calcium 9.2 Liver Function 10/24/17 Range/Units 10:48 Total Bilirubin 0.5 (0.3-1.0) mg/dL AST 40 H (13-39) Units/L ALT 75 H (7-52) Units/L Alkaline Phosphatase 95 (34-104) Units/L Albumin 3.4 L (3.5-5.7) g/dL Consult Discharge Plan - Plan Referrals: Krish-Edda Banda DO [Primary Care Provider] - <Buster Shi - Last Filed: 10/25/17 16:34> Date of Encounter: 10/25/17 - Data of Consult Requesting Physician: Hung Alexander Primary Care Provider: Edda Rutherford - Consult Narrative History of present illness: REactive chnages in blood. Monitor platelets, PS findings reviewed. Plan d/w patient. I examined this patient and my medical decision-making was reviewed with the Advanced Practice Nurse, Jayla Eric. I agree with the documented findings, disposition and treatment plan as described except to the extent set forth below. Oncology - Exam - Constitutional Vitals: Temp Pulse Resp BP Pulse Ox 97.7 F 69 16 116/75 95 10/25/17 15:36 10/25/17 15:36 10/25/17 15:36 10/25/17 15:36 10/25/17 15:36 Oncology - Results Labs: Short CBC 10/25/17 Range/Units 05:10 WBC 3.2 L (4.3-11.1) K/mcL Hgb 12.6 L (12.9-16.9) g/dL Hct 38.1 (37.5-50.1) % Plt Count 122 L (140-400) K/mcL Neutrophils # 1.9 (1.6-8.9) K/mcL
[2017-10-25] MEDS: *HR* OxyCODONE Immed Rel 5 MG TABLET PO PRN ×2 (14:38→20:29)
--- NOTE | 2017-10-25 17:20 | Internal Med Progress Note ---
Date of Encounter: 10/25/17 Time of Encounter: 11:00 - Assessment and plan (1) Leukopenia Current Visit: Yes Status: Acute Assessment and plan: Patient with slight improvement in neutropenia this morning. No known infectious etiology at this time and patient no longer on methotrexate Infectious disease consulted and appreciate recommendations Qualifiers: Leukopenia type: unspecified Qualified Code(s): D72.819 - Decreased white blood cell count, unspecified (2) Thrombocytopenia Current Visit: Yes Status: Acute Assessment and plan: Patient also with decreased platelet levels; no signs of bleeding Hematology oncology following and appreciate recommendations (3) Atrial fibrillation Current Visit: Yes Status: Chronic Assessment and plan: Rate controlled; continue Amiodarone and Xarelto. Qualifiers: Atrial fibrillation type: chronic Qualified Code(s): I48.2 - Chronic atrial fibrillation (4) CKD (chronic kidney disease) stage 3, GFR 30-59 ml/min Current Visit: Yes Status: Chronic Assessment and plan: Creatinine levels currently at baseline; continue to monitor (5) Diastolic CHF, chronic Current Visit: Yes Status: Chronic Assessment and plan: Patient euvolemic; continue home dose of Lasix (6) Abdominal pain Current Visit: Yes Status: Acute Assessment and plan: Will defer to surgery service -- Dr. Nye consulted. Qualifiers: Abdominal location: generalized Qualified Code(s): R10.84 - Generalized abdominal pain (7) DVT prophylaxis Current Visit: Yes Status: Acute Assessment and plan: On Xarelto. - Time Spent With Patient Total time spent is greater than 50% in coordination of care (as documented) at patient's floor/unit and/or counseling patient: - Subjective Interval history: Patient with slight improvement in neutropenia this morning. No known infectious etiology at this time and patient no longer on methotrexate Patient also with thrombocytopenia but no signs of bleeding - Constitutional Vitals: Temp Pulse Resp BP Pulse Ox 97.7 F 69 16 116/75 95 10/25/17 15:36 10/25/17 15:36 10/25/17 15:36 10/25/17 15:36 10/25/17 15:36 General appearance: Present: cooperative, A&O X 3, pleasant, no acute distress, answers questions appropriately - Respiratory Respiratory exam: Present: CTAB. Absent: accessory muscle use, rales, rhonchi, wheezes - Cardiovascular Cardiovascular exam: Present: RRR, +S1, +S2. Absent: diastolic murmur, gallop, rubs, systolic murmur Internal Medicine: Result - Labs CBC & Chem 7: 10/25/17 05:10 10/24/17 10:48 Labs: Short CBC 10/25/17 Range/Units 05:10 WBC 3.2 L (4.3-11.1) K/mcL Hgb 12.6 L (12.9-16.9) g/dL Hct 38.1 (37.5-50.1) % Plt Count 122 L (140-400) K/mcL Neutrophils # 1.9 (1.6-8.9) K/mcL Consult Discharge Plan - Plan Referrals: Able-Edda Banda DO [Primary Care Provider] -
[2017-10-25] MEDS: Metoprolol XL (24 HR) Succ 25 MG TAB.ER.24H PO SCH (18:15)
[2017-10-25] MEDS: *HR* Rivaroxaban 10 MG TABLET PO SCH (18:15)
[2017-10-25] MEDS: *HR* LORazepam 0.5 MG TABLET PO SCH (21:33)
[2017-10-25] MEDS: Melatonin 3 MG TABLET PO SCH (21:35)
[2017-10-25] MEDS: traZODone 50 MG TABLET PO SCH (21:36)
[2017-10-26] MEDS: Piperacillin/Tazobactam 3.375 GM in 0.9 % Sodium Chloride Mini Bag 100 ML IVPB SCH ×3 (03:19→18:03)
[2017-10-26 06:55] LABS: Folate 9.3 ng/mL (3.0-16.0)
[2017-10-26] MEDS: Budesonide/Formoterol 80/4.5 MDI IH SCH ×2 (07:48→20:14)
[2017-10-26] MEDS: Furosemide 40 MG TABLET PO SCH ×2 (09:10→16:45)
[2017-10-26] MEDS: *HR* Amiodarone 200 MG TABLET PO SCH (09:10)
[2017-10-26] MEDS: tiZANidine 4 MG TABLET PO SCH ×2 (09:10→20:44)
[2017-10-26] MEDS: Gabapentin 400 MG CAPSULE PO SCH ×2 (09:10→20:42)
[2017-10-26] MEDS: metOLazone 2.5 MG TABLET PO SCH ×2 (09:11→20:43)
[2017-10-26] MEDS: Finasteride 5 MG TABLET PO SCH (09:11)
[2017-10-26] MEDS: *HR* OxyCODONE Immed Rel 5 MG TABLET PO PRN ×2 (09:11→16:49)
[2017-10-26] MEDS: Aspirin Enteric Coated 81 MG Tablet PO SCH (09:11)
[2017-10-26] MEDS: LUBIPROSTONE PO SCH ×2 (09:12→22:52)
[2017-10-26 10:08] LABS: Potassium 3.9 mEq/L (3.5-5.1)
[2017-10-26 10:13] LABS: Eosinophils # 0.4 K/mcL (0.0-0.6); Eosinophils % 8.5 %; Hematocrit 40.5 % (37.5-50.1); Hemoglobin 13.4 g/dL (12.9-16.9); Immature Granulocytes % 0.7 % (0-4); Lymphocytes # 0.8 K/mcL (0.6-4.6); Lymphocytes % 17.7 %; Mean Corpuscular HGB Conc 33.1 g/dL (31.6-35.5); Mean Corpuscular Volume 87.7 fL (83.0-100.0); Mean Platelet Volume 10.5 fL (9.4-12.4); Monocytes # 0.3 K/mcL (0.0-1.3); Monocytes % 5.9 %; Neutrophils # 3.1 K/mcL (1.6-8.9); Platelet Count 111 K/mcL (140-400); Red Blood Count 4.62 M/mcL (4.19-5.50); Red Cell Distribution Width 15.6 % (11.5-14.5); Segmented Neutrophils % 67.2 %
[2017-10-26] MEDS ORDERED: *HR* Methotrexate 2.5 MG TABLET PO SCH (12:33)
[2017-10-26] MEDS: *HR* Rivaroxaban 10 MG TABLET PO SCH (16:45)
[2017-10-26] MEDS: Metoprolol XL (24 HR) Succ 25 MG TAB.ER.24H PO SCH (16:45)
--- NOTE | 2017-10-26 18:01 | Internal Med Progress Note ---
Date of Encounter: 10/26/17 Time of Encounter: 11:00 - Assessment and plan (1) Abdominal pain Current Visit: Yes Status: Acute Assessment and plan: Patient with no improvement in abdominal pain postop day 15 status post lap cholecystectomy Will defer to surgery service -- Dr. Nye consulted. Qualifiers: Abdominal location: generalized Qualified Code(s): R10.84 - Generalized abdominal pain (2) Leukopenia Current Visit: Yes Status: Resolved Assessment and plan: Patient with resolved neutropenia as white blood cell count now within normal limits this morning No known infectious etiology at this time and patient no longer on methotrexate Hematology/oncology following and appreciate any additional recommendations Qualifiers: Leukopenia type: unspecified Qualified Code(s): D72.819 - Decreased white blood cell count, unspecified (3) Thrombocytopenia Current Visit: Yes Status: Acute Assessment and plan: Patient still with decreased platelet levels; no signs of bleeding Hematology oncology following and appreciate recommendations (4) Atrial fibrillation Current Visit: Yes Status: Chronic Assessment and plan: Rate controlled; continue Amiodarone and Xarelto. Qualifiers: Atrial fibrillation type: chronic Qualified Code(s): I48.2 - Chronic atrial fibrillation (5) CKD (chronic kidney disease) stage 3, GFR 30-59 ml/min Current Visit: Yes Status: Chronic Assessment and plan: Creatinine levels currently at baseline; continue to monitor (6) Diastolic CHF, chronic Current Visit: Yes Status: Chronic Assessment and plan: Patient euvolemic; continue home dose of Lasix (7) DVT prophylaxis Current Visit: Yes Status: Acute Assessment and plan: On Xarelto. - Time Spent With Patient Total time spent is greater than 50% in coordination of care (as documented) at patient's floor/unit and/or counseling patient: - Subjective Interval history: Patient with resolved neutropenia as white blood cell count now within normal limits this morning No known infectious etiology at this time and patient no longer on methotrexate Patient still with thrombocytopenia but no signs of bleeding Patient complaining of abdominal pain status post lap cholecystectomy postop day 15 - Constitutional Vitals: Temp Pulse Resp BP Pulse Ox 97.5 F L 63 16 108/73 95 10/26/17 15:38 10/26/17 15:38 10/26/17 07:52 10/26/17 15:38 10/26/17 15:38 General appearance: Present: cooperative, A&O X 3, pleasant, no acute distress, answers questions appropriately - Respiratory Respiratory exam: Present: CTAB. Absent: accessory muscle use, rales, rhonchi, wheezes - Cardiovascular Cardiovascular exam: Present: RRR, +S1, +S2. Absent: diastolic murmur, gallop, rubs, systolic murmur - GI/Abdominal GI/Abdominal exam: Present: distended, normal bowel sounds, tenderness (Patient with generalized abdominal tenderness) Internal Medicine: Result - Labs CBC & Chem 7: 10/26/17 05:35 10/26/17 05:35 Labs: Short CBC 10/26/17 Range/Units 05:35 WBC 4.6 (4.3-11.1) K/mcL Hgb 13.4 (12.9-16.9) g/dL Hct 40.5 (37.5-50.1) % Plt Count 111 L (140-400) K/mcL Neutrophils # 3.1 (1.6-8.9) K/mcL BMP 10/26/17 05:35 Sodium 131 L Potassium 3.9 Chloride 90 L Carbon Dioxide 30 H BUN 27 H Creatinine 1.70 H Glucose 111 H Calcium 9.0 Consult Discharge Plan - Plan Referrals: Able-Edda Banda DO [Primary Care Provider] -
[2017-10-26] MEDS: Melatonin 3 MG TABLET PO SCH (20:41)
[2017-10-26] MEDS: *HR* LORazepam 0.5 MG TABLET PO SCH (20:42)
[2017-10-26] MEDS: traZODone 50 MG TABLET PO SCH (20:45)
[2017-10-26] MEDS: *HR* OxyCODONE/APAP 5/325 TABLET PO PRN (21:06)
[2017-10-27] MEDS: Piperacillin/Tazobactam 3.375 GM in 0.9 % Sodium Chloride Mini Bag 100 ML IVPB SCH ×3 (04:07→19:22)
[2017-10-27] MEDS: Budesonide/Formoterol 80/4.5 MDI IH SCH ×2 (07:43→21:01)
[2017-10-27] MEDS ORDERED: GI Cocktail 40 ML EACH PO ONE (08:18)
[2017-10-27] MEDS: Finasteride 5 MG TABLET PO SCH (08:29)
[2017-10-27] MEDS: *HR* Amiodarone 200 MG TABLET PO SCH (08:29)
[2017-10-27] MEDS: Furosemide 40 MG TABLET PO SCH ×2 (08:30→17:45)
[2017-10-27] MEDS: Aspirin Enteric Coated 81 MG Tablet PO SCH (08:30)
[2017-10-27] MEDS: tiZANidine 4 MG TABLET PO SCH ×2 (08:30→20:59)
[2017-10-27] MEDS: metOLazone 2.5 MG TABLET PO SCH ×2 (08:30→20:58)
[2017-10-27] MEDS: Gabapentin 400 MG CAPSULE PO SCH ×2 (08:30→20:56)
[2017-10-27] MEDS: Simethicone 80 MG TAB.CHEW PO PRN ×2 (08:45→14:40)
[2017-10-27] MEDS: *HR* OxyCODONE Immed Rel 5 MG TABLET PO PRN ×2 (08:45→21:04)
[2017-10-27] MEDS: LUBIPROSTONE PO SCH ×2 (08:50→20:59)
[2017-10-27 10:20] LABS: Basophils % 0.2 %; Eosinophils # 0.1 K/mcL (0.0-0.6); Eosinophils % 1.5 %; Hematocrit 46.5 % (37.5-50.1); Immature Granulocytes % 0.4 % (0-4); Lymphocytes # 0.6 K/mcL (0.6-4.6); Lymphocytes % 13.7 %; Mean Corpuscular HGB Conc 33.1 g/dL (31.6-35.5); Mean Corpuscular Volume 87.6 fL (83.0-100.0); Mean Platelet Volume 10.5 fL (9.4-12.4); Monocytes # 0.3 K/mcL (0.0-1.3); Monocytes % 6.1 %; Neutrophils # 3.6 K/mcL (1.6-8.9); Platelet Count 114 K/mcL (140-400); Red Blood Count 5.31 M/mcL (4.19-5.50); Red Cell Distribution Width 15.5 % (11.5-14.5); Segmented Neutrophils % 78.1 %
[2017-10-27 10:36] LABS: Calcium 9.6 mg/dL (8.6-10.3); Potassium 3.8 mEq/L (3.5-5.1)
[2017-10-27 10:38] LABS: Hemoglobin 15.4 g/dL (12.9-16.9)
--- NOTE | 2017-10-27 11:11 | General Surgery Progress Note ---
Date of Encounter: 10/27/17 Time of Encounter: 11:00 - Assessment and Plan (1) Abdominal pain Current Visit: Yes Status: Acute POD #15 from lap cholecystectomy with Dr. Parris HENDRICKSON scan negative for a leak on 10/23/17 CT scan shows a small post-operative seroma which is expected after cholecystectomy Check Hepatic panel today Check 2V abdominal x-ray due to bloating Add Reglan every 6 hours Change PPI to BID Add GI cocktail No surgical intervention indicated at this time Will follow from a distance to ensure that patient continues to improve May consider GI consult if patient does not feel better with supportive measures which were started today Qualifiers: Abdominal location: generalized Qualified Code(s): R10.84 - Generalized abdominal pain Subjective Patient reports: no new complaints, still having pain, tolerating liquids well, voiding w/o difficulty, flatus, bowel movement, diarrhea, afebrile, other ( complaint of feeling bloated and epigastric abdominal discomfort which is aggrevated by eating/drinking) Objective Vital Signs - Last 8 Hours Temp Pulse Resp BP Pulse Ox 10/27/17 08:34 97.8 F 62 16 107/74 96 10/27/17 07:44 18 96 10/27/17 04:35 98.4 F 66 15 104/72 95 Intake and Output 10/26/17 10/27/17 10/27/17 23:59 07:59 15:59 Intake Total 838 / 838 240 / 240 120 / 120 Output Total 850 / 850 0 / 0 700 / 700 Balance -12 / -12 240 / 240 -580 / -580 Intake: IV Fluids 198 / 198 Zosyn 3.375 GM In 0.9 % Sodium 198 / 198 Chloride (Mini-Bag +) 100 ML @ 25 mls/hr IVPB Q8H [facility] Rx#: [id number] Oral 640 / 640 240 / 240 120 / 120 Output: Urine 850 / 850 0 / 0 700 / 700 Other: Meal Dinner Stool Size Large Stool Consistency liquid Stool Color Green # Voids 2 # Bowel Movements 0 # Bowel Movement Diapers 1 Weight 126.8 kg Blood Glucose* 128 Patient Weight 10/27/17 23:59 Weight 126.8 kg - General physical appearance well developed, well nourished, no distress, other (patient out of bed to chair) - Eyes normal ocular movement - ENT normal mucosa, atraumatic, normocephalic - Neck Neck exam: trachea midline - Respiratory normal respiratory effort, clear to auscultation, other (diminished bibasilar bases) - Cardiovascular Cardiovascular exam: Present: irregular rhythm - Abdomen Abdomen: Present: bowel sounds present (hypoactive), soft, distended, tender ( mild epigastric tenderness noted on exam) - Incision Incision: Present: clean and dry, intact - Neurologic CN 2-12 grossly intact - Musculoskeletal other (physical deconditioning) - Psychiatric oriented to time, oriented to person, oriented to place, speech is normal, memory intact - Labs 10/27/17 10:07 10/27/17 10:07 Diabetes panel 10/27/17 Range/Units 10:07 Sodium 128 L (136-145) mEq/L Potassium 3.8 (3.5-5.1) mEq/L Chloride 88 L (98-107) mEq/L Carbon Dioxide 31 H (23-29) mEq/L BUN 27 H (8-23) mg/dL Creatinine 1.89 H (0.70-1.30) mg/dL Glucose 134 H (70-105) mg/dL Calcium 9.6 (8.6-10.3) mg/dL Calcium panel 10/27/17 Range/Units 10:07 Calcium 9.6 (8.6-10.3) mg/dL Pituitary panel 10/27/17 Range/Units 10:07 Sodium 128 L (136-145) mEq/L Potassium 3.8 (3.5-5.1) mEq/L Chloride 88 L (98-107) mEq/L Carbon Dioxide 31 H (23-29) mEq/L BUN 27 H (8-23) mg/dL Creatinine 1.89 H (0.70-1.30) mg/dL Glucose 134 H (70-105) mg/dL Calcium 9.6 (8.6-10.3) mg/dL Adrenal panel 10/27/17 Range/Units 10:07 Sodium 128 L (136-145) mEq/L Potassium 3.8 (3.5-5.1) mEq/L Chloride 88 L (98-107) mEq/L Carbon Dioxide 31 H (23-29) mEq/L BUN 27 H (8-23) mg/dL Creatinine 1.89 H (0.70-1.30) mg/dL Glucose 134 H (70-105) mg/dL Calcium 9.6 (8.6-10.3) mg/dL Consult Discharge Plan - Plan Referrals: Krish-Edda Banda DO [Primary Care Provider] - - Attending Attestation For this encounter, I have reviewed the [employer] or PA documentation, treatment plan, and medical decision making; and I have had face to face time with this patient.
[2017-10-27] MEDS: Metoclopramide 10 MG/2 ML VIAL IVP SCH ×2 (14:38→17:45)
[2017-10-27 15:51] LABS: Albumin 4.1 g/dL (3.5-5.7); Albumin/Globulin Ratio 1.1 (1.1-2.2); Bilirubin,Direct 0.2 mg/dL (0.0-0.2); Bilirubin,Indirect 0.4 mg/dL (0.0-1.2); Bilirubin,Total 0.6 mg/dL (0.3-1.0); Globulin 3.6 g/dL (2.4-3.5); Total Protein 7.7 g/dL (6.4-8.9)
[2017-10-27] MEDS: Metoprolol XL (24 HR) Succ 25 MG TAB.ER.24H PO SCH (17:45)
[2017-10-27] MEDS: *HR* Rivaroxaban 15 MG TABLET PO SCH (17:45)
--- NOTE | 2017-10-27 19:17 | Internal Med Progress Note ---
Date of Encounter: 10/27/17 Time of Encounter: 11:00 - Assessment and plan (1) Abdominal pain Current Visit: Yes Status: Acute Assessment and plan: Patient with no improvement in abdominal pain postop day 16 status post lap cholecystectomy Patient was [facility] transferred [facility] due to abdominal pain admitted to the surgical service General surgery has been consulted and appreciate recommendations Qualifiers: Abdominal location: generalized Qualified Code(s): R10.84 - Generalized abdominal pain (2) Leukopenia Current Visit: Yes Status: Resolved Assessment and plan: Patient with resolved neutropenia as white blood cell count now within normal limits this morning No known infectious etiology at this time and patient no longer on methotrexate Hematology/oncology following and appreciate any additional recommendations Qualifiers: Leukopenia type: unspecified Qualified Code(s): D72.819 - Decreased white blood cell count, unspecified (3) Thrombocytopenia Current Visit: Yes Status: Acute Assessment and plan: Patient still with decreased platelet levels; no signs of bleeding Hematology oncology following and appreciate recommendations (4) Atrial fibrillation Current Visit: Yes Status: Chronic Assessment and plan: Rate controlled; continue Amiodarone and Xarelto. Qualifiers: Atrial fibrillation type: chronic Qualified Code(s): I48.2 - Chronic atrial fibrillation (5) CKD (chronic kidney disease) stage 3, GFR 30-59 ml/min Current Visit: Yes Status: Chronic Assessment and plan: Creatinine levels currently at baseline; continue to monitor (6) Diastolic CHF, chronic Current Visit: Yes Status: Chronic Assessment and plan: Patient euvolemic; continue home dose of Lasix (7) DVT prophylaxis Current Visit: Yes Status: Acute Assessment and plan: On Xarelto. - Time Spent With Patient Total time spent is greater than 50% in coordination of care (as documented) at patient's floor/unit and/or counseling patient: - Subjective Interval history: Hospitalist service was consulted for neutropenia Patient with resolved neutropenia as white blood cell count now within normal limits this morning No known infectious etiology at this time and patient no longer on methotrexate Patient still with thrombocytopenia but no signs of bleeding Patient complaining of abdominal pain status post lap cholecystectomy postop day 16 - Constitutional Vitals: Temp Pulse Resp BP Pulse Ox 98.7 F 66 15 101/67 95 10/27/17 18:41 10/27/17 18:41 10/27/17 18:41 10/27/17 18:41 10/27/17 18:41 General appearance: Present: cooperative, A&O X 3, pleasant, no acute distress, answers questions appropriately - Respiratory Respiratory exam: Present: CTAB. Absent: accessory muscle use, rales, rhonchi, wheezes - Cardiovascular Cardiovascular exam: Present: RRR, +S1, +S2. Absent: diastolic murmur, gallop, rubs, systolic murmur - GI/Abdominal GI/Abdominal exam: Present: tenderness Internal Medicine: Result - Labs CBC & Chem 7: 10/27/17 10:07 10/27/17 10:07 Labs: Short CBC 10/27/17 Range/Units 10:07 WBC 4.6 (4.3-11.1) K/mcL Hgb 15.4 D (12.9-16.9) g/dL Hct 46.5 (37.5-50.1) % Plt Count 114 L (140-400) K/mcL Neutrophils # 3.6 (1.6-8.9) K/mcL BMP 10/27/17 10:07 Sodium 128 L Potassium 3.8 Chloride 88 L Carbon Dioxide 31 H BUN 27 H Creatinine 1.89 H Glucose 134 H Calcium 9.6 Liver Function 10/27/17 Range/Units 10:07 Total Bilirubin 0.6 (0.3-1.0) mg/dL Direct Bilirubin 0.2 (0.0-0.2) mg/dL AST 53 H (13-39) Units/L ALT 104 H (7-52) Units/L Alkaline Phosphatase 118 H (34-104) Units/L Albumin 4.1 (3.5-5.7) g/dL - Impressions Impressions Abdomen X-Ray 10/27/17 11:04 IMPRESSION: Nonspecific bowel gas pattern, without evidence of obstruction. Air-filled, mildly prominent large bowel loops may be related to chronic constipation, which was previously present. D/ / Rosendo Tanner MD / Rosendo Tanner MD Interpreting Provider: Rosendo Tanner MD Consult Discharge Plan - Plan Referrals: Edda Rm DO [Primary Care Provider] -
[2017-10-27] MEDS: *HR* LORazepam 0.5 MG TABLET PO SCH (20:58)
[2017-10-27] MEDS: Melatonin 3 MG TABLET PO SCH (20:59)
[2017-10-27] MEDS: traZODone 50 MG TABLET PO SCH (20:59)
[2017-10-28] MEDS: Metoclopramide 10 MG/2 ML VIAL IVP SCH ×5 (00:41→23:56)
[2017-10-28] MEDS: Piperacillin/Tazobactam 3.375 GM in 0.9 % Sodium Chloride Mini Bag 100 ML IVPB SCH ×3 (02:58→19:39)
[2017-10-28] MEDS: Budesonide/Formoterol 80/4.5 MDI IH SCH ×2 (08:00→21:25)
[2017-10-28] MEDS: Finasteride 5 MG TABLET PO SCH (08:23)
[2017-10-28] MEDS: metOLazone 2.5 MG TABLET PO SCH ×2 (08:24→20:58)
[2017-10-28] MEDS: Furosemide 40 MG TABLET PO SCH ×2 (08:24→16:01)
[2017-10-28] MEDS: Gabapentin 400 MG CAPSULE PO SCH ×2 (08:24→20:56)
[2017-10-28] MEDS: Aspirin Enteric Coated 81 MG Tablet PO SCH (08:24)
[2017-10-28] MEDS: *HR* Amiodarone 200 MG TABLET PO SCH (08:24)
[2017-10-28] MEDS: tiZANidine 4 MG TABLET PO SCH ×2 (08:25→20:57)
[2017-10-28] MEDS: LUBIPROSTONE PO SCH ×2 (08:25→21:02)
[2017-10-28 09:19] LABS: Basophils % 0.2 %; Eosinophils # 0.1 K/mcL (0.0-0.6); Eosinophils % 1.4 %; Hematocrit 43.8 % (37.5-50.1); Hemoglobin 14.4 g/dL (12.9-16.9); Immature Granulocytes % 0.2 % (0-4); Lymphocytes # 0.8 K/mcL (0.6-4.6); Lymphocytes % 18.2 %; Mean Corpuscular HGB Conc 32.9 g/dL (31.6-35.5); Mean Corpuscular Hemoglobin 28.9 pg (28.0-33.3); Mean Corpuscular Volume 87.8 fL (83.0-100.0); Monocytes # 0.3 K/mcL (0.0-1.3); Monocytes % 7.8 %; Platelet Count 124 K/mcL (140-400); Red Blood Count 4.99 M/mcL (4.19-5.50); Red Cell Distribution Width 15.5 % (11.5-14.5); Segmented Neutrophils % 72.2 %
[2017-10-28 09:39] LABS: Albumin/Globulin Ratio 1.1 (1.1-2.2); Bilirubin,Total 0.5 mg/dL (0.3-1.0); Calcium 9.5 mg/dL (8.6-10.3); Globulin 3.6 g/dL (2.4-3.5); Potassium 3.7 mEq/L (3.5-5.1); Total Protein 7.6 g/dL (6.4-8.9)
[2017-10-28] MEDS: *HR* OxyCODONE Immed Rel 5 MG TABLET PO PRN ×2 (14:11→20:57)
--- NOTE | 2017-10-28 15:21 | Internal Med Progress Note ---
Date of Encounter: 10/28/17 Time of Encounter: 11:00 - Assessment and plan (1) Abdominal pain Current Visit: Yes Status: Acute Assessment and plan: Patient reports of improvement in abdominal pain status post lap cholecystectomy postop day 17 He is able to tolerate by mouth. Patient was started on Reglan on 10/27/17 per surgery recommendations Appreciate any further recommendations Qualifiers: Abdominal location: generalized Qualified Code(s): R10.84 - Generalized abdominal pain (2) Leukopenia Current Visit: Yes Status: Resolved Assessment and plan: Resolved; will continue to monitor No known infectious etiology and patient no longer on methotrexate Hematology/oncology following and appreciate any additional recommendations Qualifiers: Leukopenia type: unspecified Qualified Code(s): D72.819 - Decreased white blood cell count, unspecified (3) Thrombocytopenia Current Visit: Yes Status: Acute Assessment and plan: Patient still with decreased platelet levels but stable; no signs of bleeding Hematology oncology following and appreciate recommendations (4) Atrial fibrillation Current Visit: Yes Status: Chronic Assessment and plan: Rate controlled; continue Amiodarone and Xarelto. Qualifiers: Atrial fibrillation type: chronic Qualified Code(s): I48.2 - Chronic atrial fibrillation (5) CKD (chronic kidney disease) stage 3, GFR 30-59 ml/min Current Visit: Yes Status: Chronic Assessment and plan: Creatinine levels currently at baseline; continue to monitor (6) Diastolic CHF, chronic Current Visit: Yes Status: Chronic Assessment and plan: Patient euvolemic; continue home dose of Lasix (7) DVT prophylaxis Current Visit: Yes Status: Acute Assessment and plan: On Xarelto. - Time Spent With Patient Total time spent is greater than 50% in coordination of care (as documented) at patient's floor/unit and/or counseling patient: - Subjective Interval history: Hospitalist service was consulted for neutropenia 10/28/17: Patient with resolved neutropenia as white blood cell count now within normal limits this morning No known infectious etiology at this time and patient no longer on methotrexate Patient still with thrombocytopenia (stable) but no signs of bleeding Patient reports of improvement in abdominal pain status post lap cholecystectomy postop day 17 He is able to tolerate by mouth. - Constitutional Vitals: Temp Pulse Resp BP Pulse Ox 98.0 F 67 16 111/78 92 10/28/17 12:16 10/28/17 12:16 10/28/17 12:16 10/28/17 12:16 10/28/17 12:16 General appearance: Present: cooperative, A&O X 3, pleasant, no acute distress, answers questions appropriately - Respiratory Respiratory exam: Present: CTAB. Absent: accessory muscle use, rales, rhonchi, wheezes - Cardiovascular Cardiovascular exam: Present: RRR, +S1, +S2. Absent: diastolic murmur, gallop, rubs, systolic murmur - GI/Abdominal GI/Abdominal exam: Present: tenderness (Generalized tenderness to palpation) Internal Medicine: Result - Labs CBC & Chem 7: 10/28/17 09:03 10/28/17 09:03 Labs: Short CBC 10/28/17 Range/Units 09:03 WBC 4.2 L (4.3-11.1) K/mcL Hgb 14.4 (12.9-16.9) g/dL Hct 43.8 (37.5-50.1) % Plt Count 124 L (140-400) K/mcL Neutrophils # 3.0 (1.6-8.9) K/mcL BMP 10/27/17 10/28/17 10:07 09:03 Sodium 128 L 127 L Potassium 3.8 3.7 Chloride 88 L 87 L Carbon Dioxide 31 H 32 H BUN 27 H 26 H Creatinine 1.89 H 1.72 H Glucose 134 H 113 H Calcium 9.6 9.5 Liver Function 10/27/17 10/28/17 Range/Units 10:07 09:03 Total Bilirubin 0.6 0.5 (0.3-1.0) mg/dL Direct Bilirubin 0.2 (0.0-0.2) mg/dL AST 53 H 39 (13-39) Units/L ALT 104 H 83 H (7-52) Units/L Alkaline Phosphatase 118 H 116 H (34-104) Units/L Albumin 4.1 4.0 (3.5-5.7) g/dL Consult Discharge Plan - Plan Referrals: Krish-Edda Banda DO [Primary Care Provider] -
[2017-10-28] MEDS: *HR* Rivaroxaban 15 MG TABLET PO SCH (16:01)
[2017-10-28] MEDS: Metoprolol XL (24 HR) Succ 25 MG TAB.ER.24H PO SCH (16:01)
[2017-10-28] MEDS: traZODone 50 MG TABLET PO SCH (20:56)
[2017-10-28] MEDS: Melatonin 3 MG TABLET PO SCH (20:56)
[2017-10-28] MEDS: *HR* LORazepam 0.5 MG TABLET PO SCH (20:58)
[2017-10-29] MEDS: Piperacillin/Tazobactam 3.375 GM in 0.9 % Sodium Chloride Mini Bag 100 ML IVPB SCH ×2 (02:44→11:51)
[2017-10-29 05:30] LABS: Basophils % 0.4 %; Eosinophils # 0.3 K/mcL (0.0-0.6); Hematocrit 41.8 % (37.5-50.1); Immature Granulocytes % 0.4 % (0-4); Lymphocytes # 1.1 K/mcL (0.6-4.6); Mean Corpuscular HGB Conc 33.5 g/dL (31.6-35.5); Mean Corpuscular Hemoglobin 29.5 pg (28.0-33.3); Mean Platelet Volume 9.6 fL (9.4-12.4); Monocytes # 0.4 K/mcL (0.0-1.3); Monocytes % 9.2 %; Neutrophils # 2.8 K/mcL (1.6-8.9); Platelet Count 174 K/mcL (140-400); Red Blood Count 4.75 M/mcL (4.19-5.50); Red Cell Distribution Width 15.5 % (11.5-14.5)
[2017-10-29 05:56] LABS: Albumin 3.8 g/dL (3.5-5.7); Albumin/Globulin Ratio 1.1 (1.1-2.2); Bilirubin,Total 0.4 mg/dL (0.3-1.0); Calcium 9.1 mg/dL (8.6-10.3); Globulin 3.4 g/dL (2.4-3.5); Potassium 3.3 mEq/L (3.5-5.1); Total Protein 7.2 g/dL (6.4-8.9)
[2017-10-29] MEDS: Metoclopramide 10 MG/2 ML VIAL IVP SCH ×4 (06:01→23:53)
[2017-10-29] MEDS: LUBIPROSTONE PO SCH ×2 (07:50→21:34)
[2017-10-29] MEDS: metOLazone 2.5 MG TABLET PO SCH ×2 (07:59→21:31)
[2017-10-29] MEDS: *HR* Amiodarone 200 MG TABLET PO SCH (07:59)
[2017-10-29] MEDS: Furosemide 40 MG TABLET PO SCH ×2 (08:00→17:23)
[2017-10-29] MEDS: tiZANidine 4 MG TABLET PO SCH ×2 (08:00→21:30)
[2017-10-29] MEDS: Aspirin Enteric Coated 81 MG Tablet PO SCH (08:00)
[2017-10-29] MEDS: Finasteride 5 MG TABLET PO SCH (08:00)
[2017-10-29] MEDS: *HR* OxyCODONE Immed Rel 5 MG TABLET PO PRN ×2 (08:01→17:29)
[2017-10-29] MEDS: Gabapentin 400 MG CAPSULE PO SCH ×2 (08:01→21:31)
[2017-10-29] MEDS: Budesonide/Formoterol 80/4.5 MDI IH SCH ×2 (10:20→19:55)
--- NOTE | 2017-10-29 15:09 | Internal Med Progress Note ---
Date of Encounter: 10/29/17 Time of Encounter: 10:00 - Assessment and plan (1) Abdominal pain Current Visit: Yes Status: Acute Assessment and plan: Patient reports of continued improvement in abdominal pain status post lap cholecystectomy postop day 18 He is able to tolerate by mouth. Patient was started on Reglan on 10/27/17 per surgery recommendations Appreciate any further recommendations Anticipate discharge on 10/30/17 if abdominal discomfort continues to improve Qualifiers: Abdominal location: generalized Qualified Code(s): R10.84 - Generalized abdominal pain (2) Leukopenia Current Visit: Yes Status: Resolved Assessment and plan: Resolved; will continue to monitor No known infectious etiology and patient no longer on methotrexate Qualifiers: Leukopenia type: unspecified Qualified Code(s): D72.819 - Decreased white blood cell count, unspecified (3) Thrombocytopenia Current Visit: Yes Status: Resolved Assessment and plan: Resolved; continue to monitor (4) Atrial fibrillation Current Visit: Yes Status: Chronic Assessment and plan: Rate controlled; continue Amiodarone and Xarelto. Qualifiers: Atrial fibrillation type: chronic Qualified Code(s): I48.2 - Chronic atrial fibrillation (5) CKD (chronic kidney disease) stage 3, GFR 30-59 ml/min Current Visit: Yes Status: Chronic Assessment and plan: Creatinine levels currently at baseline; continue to monitor (6) Diastolic CHF, chronic Current Visit: Yes Status: Chronic Assessment and plan: Patient euvolemic; continue home dose of Lasix (7) DVT prophylaxis Current Visit: Yes Status: Acute Assessment and plan: On Xarelto. - Time Spent With Patient Total time spent is greater than 50% in coordination of care (as documented) at patient's floor/unit and/or counseling patient: - Subjective Interval history: Hospitalist service was consulted for neutropenia 10/28/17: Patient with resolved neutropenia as white blood cell count now within normal limits this morning No known infectious etiology at this time and patient no longer on methotrexate Patient still with thrombocytopenia (stable) but no signs of bleeding Patient reports of improvement in abdominal pain status post lap cholecystectomy postop day 17 He is able to tolerate by mouth. 10/29/17 Neutropenia and thrombocytopenia have resolved Patient reports that abdominal discomfort improving has been able to tolerate by mouth Anticipate discharge to ECF on 10/30/17 if abdominal discomfort continues to improve - Constitutional Vitals: Temp Pulse Resp BP Pulse Ox 97.9 F 63 16 99/65 91 10/29/17 10:59 10/29/17 10:59 10/29/17 10:59 10/29/17 10:59 10/29/17 10:59 General appearance: Present: cooperative, A&O X 3, pleasant, no acute distress, answers questions appropriately - Respiratory Respiratory exam: Present: CTAB. Absent: accessory muscle use, rales, rhonchi, wheezes - Cardiovascular Cardiovascular exam: Present: RRR, +S1, +S2. Absent: diastolic murmur, gallop, rubs, systolic murmur - GI/Abdominal GI/Abdominal exam: Present: hypoactive bowel sounds, soft, tenderness (Mild generalized tenderness) Internal Medicine: Result - Labs CBC & Chem 7: 10/29/17 04:49 10/29/17 04:49 Labs: Short CBC 10/29/17 Range/Units 04:49 WBC 4.7 (4.3-11.1) K/mcL Hgb 14.0 (12.9-16.9) g/dL Hct 41.8 (37.5-50.1) % Plt Count 174 (140-400) K/mcL Neutrophils # 2.8 (1.6-8.9) K/mcL BMP 10/29/17 04:49 Sodium 130 L Potassium 3.3 L Chloride 89 L Carbon Dioxide 31 H BUN 28 H Creatinine 1.74 H Glucose 95 Calcium 9.1 Liver Function 10/29/17 Range/Units 04:49 Total Bilirubin 0.4 (0.3-1.0) mg/dL AST 30 (13-39) Units/L ALT 70 H (7-52) Units/L Alkaline Phosphatase 103 (34-104) Units/L Albumin 3.8 (3.5-5.7) g/dL Consult Discharge Plan - Plan Referrals: Krish-Edda Banda DO [Primary Care Provider] -
[2017-10-29] MEDS: *HR* Rivaroxaban 15 MG TABLET PO SCH (17:23)
[2017-10-29] MEDS: Metoprolol XL (24 HR) Succ 25 MG TAB.ER.24H PO SCH (17:23)
[2017-10-29] MEDS: Melatonin 3 MG TABLET PO SCH (21:31)
[2017-10-29] MEDS: *HR* LORazepam 0.5 MG TABLET PO SCH (21:31)
[2017-10-29] MEDS: traZODone 50 MG TABLET PO SCH (21:35)
[2017-10-30] MEDS: Metoclopramide 10 MG/2 ML VIAL IVP SCH (05:53)
[2017-10-30 06:00] LABS: Basophils % 0.4 %; Eosinophils # 0.3 K/mcL (0.0-0.6); Eosinophils % 5.7 %; Hematocrit 43.5 % (37.5-50.1); Hemoglobin 14.3 g/dL (12.9-16.9); Immature Granulocytes % 0.4 % (0-4); Lymphocytes # 0.9 K/mcL (0.6-4.6); Lymphocytes % 16.5 %; Mean Corpuscular HGB Conc 32.9 g/dL (31.6-35.5); Mean Corpuscular Volume 88.2 fL (83.0-100.0); Mean Platelet Volume 9.6 fL (9.4-12.4); Monocytes # 0.6 K/mcL (0.0-1.3); Monocytes % 11.2 %; Neutrophils # 3.6 K/mcL (1.6-8.9); Platelet Count 215 K/mcL (140-400); Red Blood Count 4.93 M/mcL (4.19-5.50); Red Cell Distribution Width 15.6 % (11.5-14.5); Segmented Neutrophils % 65.8 %
[2017-10-30 06:09] LABS: Albumin 3.9 g/dL (3.5-5.7); Albumin/Globulin Ratio 1.3 (1.1-2.2); Bilirubin,Total 0.4 mg/dL (0.3-1.0); Calcium 9.4 mg/dL (8.6-10.3); Globulin 3.1 g/dL (2.4-3.5); Potassium 3.8 mEq/L (3.5-5.1)
[2017-10-30 08:00] VITALS: BP 111/75
[2017-10-30] MEDS: Budesonide/Formoterol 80/4.5 MDI IH SCH (08:16)
[2017-10-30] MEDS: *HR* OxyCODONE Immed Rel 5 MG TABLET PO PRN (08:22)
[2017-10-30] MEDS: tiZANidine 4 MG TABLET PO SCH (08:22)
[2017-10-30] MEDS: Finasteride 5 MG TABLET PO SCH (08:23)
[2017-10-30] MEDS: LUBIPROSTONE PO SCH (08:23)
[2017-10-30] MEDS: Aspirin Enteric Coated 81 MG Tablet PO SCH (08:23)
[2017-10-30] MEDS: *HR* Amiodarone 200 MG TABLET PO SCH (08:23)
[2017-10-30] MEDS: Furosemide 40 MG TABLET PO SCH (08:23)
[2017-10-30] MEDS: Gabapentin 400 MG CAPSULE PO SCH (08:23)
[2017-10-30] MEDS: metOLazone 2.5 MG TABLET PO SCH (08:23)
--- NOTE | 2017-10-30 10:13 | Discharge Summary ---
- NOTES TO OUTPATIENT PROVIDER Notes to Outpatient Provider: Continue to monitor CBC for recurrent neutropenia or thrombocytopenia Date of Encounter: 10/30/17 Time of Encounter: 11:00 - Discharge Diagnosis (1) Abdominal pain Priority: Primary Status: Acute Qualifiers: Abdominal location: generalized Qualified Code(s): R10.84 - Generalized abdominal pain (2) Leukopenia Priority: Secondary Status: Resolved Qualifiers: Leukopenia type: unspecified Qualified Code(s): D72.819 - Decreased white blood cell count, unspecified (3) Thrombocytopenia Priority: Secondary Status: Resolved (4) Atrial fibrillation Priority: Secondary Status: Chronic Qualifiers: Atrial fibrillation type: chronic Qualified Code(s): I48.2 - Chronic atrial fibrillation (5) CKD (chronic kidney disease) stage 3, GFR 30-59 ml/min Priority: Secondary Status: Chronic (6) Diastolic CHF, chronic Priority: Secondary Status: Chronic Hospital course: Patient is a 67-year-old female with past medical history of dementia, arthritis , atrial fibrillation, CHF, COPD, coronary artery disease, CVA, diabetes, GERD, hyperlipidemia, hypertension, pulmonary embolus, anxiety, depression and pacemaker/AICD, who presented to [facility] as a transfer from [facility] on or abdominal pain. Patient had a history of recent lap cholecystectomy was discharged to [facility]. Patient now reports of abdominal pain with a severity of 8 out of 10 worse in the bilateral lower quadrants. He reported that his abdomen felt distended and that he will try to have a bowel movement but only air comes out. During patients hospital stay he developed neutropenia and thrombocytopenia and the hospitalist service and hematology/oncology was consulted for recommendations for management. During this consult primary care was also changed from general surgery to the hospitalist service. Patients neutropenia and thrombocytopenia resolved and recommendations for patient not to restart methotrexate. Abdominal pain persisted and general surgery was asked to reevaluate the patient. Recommendations were made to start patient on Reglan as no acute findings were found on imaging. Patients abdominal pain has improved so will be discharged back to [facility]. - Time Spent with Patient Total time spent providing and/or coordinating discharge services: Less than 30 minutes - Discharge Medications Prescriptions: OxyCODONE Immed Rel [Roxicodone 10 MG] 10 mg PO QID PRN 2 Days #8 tablet PRN Reason: Pain Home Medications: Aspirin Enteric Coated [Aspirin EC] 81 mg PO DAILY #0 04/09/15 [History] Rivaroxaban [Xarelto] 20 mg PO DAILY #0 04/09/15 [History] Albuterol Sulfate [Proair Hfa] 2 puff IH Q4H PRN 12/14/16 [History] Atorvastatin [Lipitor] 40 mg PO HS 12/14/16 [History] Gabapentin [Neurontin] 400 mg PO BID 12/14/16 [History] Pantoprazole Sodium [Protonix] 40 mg PO DAILY 12/14/16 [History] Polyethylene Glycol 3350 [MiraLAX Powder Bulk 17.9 Oz] 17 gm PO DAILY PRN [History] Sennosides/Docusate Sodium [Senna-Docusate Sodium Tablet] 1 tab PO BID PRN 12/14 [History] Tizanidine HCl [Zanaflex] 2 mg PO BID 12/14/16 [History] DULoxetine [Cymbalta] 30 mg PO DAILY 02/14/17 [History] Tamsulosin [Flomax] 0.4 mg PO BID 02/14/17 [History] Amiodarone [Cordarone] 200 mg PO DAILY 07/05/17 [History] Capsaicin [Arthritis Pain Relief] 1 appl TP BID PRN 07/05/17 [History] Finasteride [Proscar] 5 mg PO DAILY 07/05/17 [History] Furosemide [Lasix] 40 mg PO BID 07/05/17 [History] Lidocaine 4% CRM (LMX) [Lmx 4] 1 appl TP TID 07/05/17 [History] Memantine HCl 10 mg PO BID 07/05/17 [History] Tiotropium Br/Olodaterol HCl [Stiolto Respimat Inhal [place]] 2 puff IH DAILY 11/17 [History] metOLazone [Zaroxolyn] 2.5 mg PO BID 07/20/17 [History] Cholecalciferol (D-3) [Vitamin D] 2,000 unit PO DAILY 10/04/17 [History] Eucerin Creme 1 appl TP QID PRN 10/04/17 [History] Fluticasone Propionate Nasal [Flonase] 100 mcg NS DAILY 10/04/17 [History] Fluticasone/Salmeterol [Advair 250-50 Diskus] 1 puff IH BID 10/04/17 [History] LORazepam [Ativan] 0.5 mg PO HS 10/04/17 [History] Lubiprostone [Amitiza] 16 mcg PO BID 10/04/17 [History] Melatonin [Melatin] 9 mg PO HS 10/04/17 [History] Metoprolol XL (24 HR) Succ [Toprol Xl] 12.5 mg PO QPM 10/04/17 [History] Spironolactone [Aldactone] 100 mg PO DAILY 10/04/17 [History] Trazodone HCl 200 mg PO HS 10/04/17 [History] Lidocaine Patch [Lidoderm 5% patch] 1 patch TP DAILY 10/22/17 [History] Metoclopramide [Reglan] 10 mg IVP Q6HR vial 10/30/17 [Rx] OxyCODONE Immed Rel [Roxicodone 10 MG] 10 mg PO QID PRN 2 Days #8 tablet [Rx] Simethicone [Gas-X] 80 mg PO TID PRN tab.chew 10/30/17 [Rx] Allergies/Adverse Reactions: 3 Allergy/AdvReac Type Severity Reaction Status Date / Time IVP DYE Allergy Anaphylaxis Uncoded 10/04/17 13:23 Date of admission: 10/28/17 15:27 Primary care physician: Edda Rutherford Consults: 10/22/17 03:13 Consult to Pastoral Services [CONS] Routine Comment: 10/24/17 09:34 Consult to Oncology Hematology [CONS] Routine Consulting Provider: Jayla Lozada Reason for Consult: neutropenia, hx of 2 month methotrexate use for RA; discontinued 2 weeks ago per patient, chart review/labs shows no neutropenia before Call Completed: Yes 10/24/17 10:34 Consult to Surgery [CONS] Routine Consulting Provider: Santos Nye Reason for Consult: post-op management; abdoinal pain Time Notified: 10:35 Call Completed: Yes - Constitutional Vitals: Temp Pulse Resp BP Pulse Ox 97.8 F 66 16 111/75 95 10/30/17 07:55 10/30/17 07:55 10/30/17 08:16 10/30/17 07:55 10/30/17 08:16 General appearance: Present: cooperative, A&O X 3, pleasant, no acute distress, answers questions appropriately - Respiratory Respiratory exam: Present: CTAB. Absent: accessory muscle use, rales, rhonchi, wheezes - Cardiovascular Cardiovascular exam: Present: RRR, +S1, +S2. Absent: diastolic murmur, gallop, rubs, systolic murmur - GI/Abdominal GI/Abdominal exam: Present: normal bowel sounds, soft, no peritoneal signs. Absent: distended, tenderness - Patient Status Disposition: Transfer SNF - Discharge Instructions Follow Up With: Krish-Edda Banda DO [Primary Care Provider] -
--- NOTE | 2017-10-30 10:13 | Physician Discharge Referral ---
- Diagnosis (1) Abdominal pain Status: Acute (2) Leukopenia Status: Resolved (3) Thrombocytopenia Status: Resolved (4) Atrial fibrillation Status: Chronic (5) CKD (chronic kidney disease) stage 3, GFR 30-59 ml/min Status: Chronic (6) Diastolic CHF, chronic Status: Chronic (7) DVT prophylaxis Status: Acute - Transfer Medications Prescriptions: OxyCODONE Immed Rel [Roxicodone 10 MG] 10 mg PO QID PRN 2 Days #8 tablet PRN Reason: Pain Home Medications: Aspirin Enteric Coated [Aspirin EC] 81 mg PO DAILY #0 04/09/15 [History] Rivaroxaban [Xarelto] 20 mg PO DAILY #0 04/09/15 [History] Albuterol Sulfate [Proair Hfa] 2 puff IH Q4H PRN 12/14/16 [History] Atorvastatin [Lipitor] 40 mg PO HS 12/14/16 [History] Gabapentin [Neurontin] 400 mg PO BID 12/14/16 [History] Pantoprazole Sodium [Protonix] 40 mg PO DAILY 12/14/16 [History] Polyethylene Glycol 3350 [MiraLAX Powder Bulk 17.9 Oz] 17 gm PO DAILY PRN [History] Sennosides/Docusate Sodium [Senna-Docusate Sodium Tablet] 1 tab PO BID PRN 12/14 [History] Tizanidine HCl [Zanaflex] 2 mg PO BID 12/14/16 [History] DULoxetine [Cymbalta] 30 mg PO DAILY 02/14/17 [History] Tamsulosin [Flomax] 0.4 mg PO BID 02/14/17 [History] Amiodarone [Cordarone] 200 mg PO DAILY 07/05/17 [History] Capsaicin [Arthritis Pain Relief] 1 appl TP BID PRN 07/05/17 [History] Finasteride [Proscar] 5 mg PO DAILY 07/05/17 [History] Furosemide [Lasix] 40 mg PO BID 07/05/17 [History] Lidocaine 4% CRM (LMX) [Lmx 4] 1 appl TP TID 07/05/17 [History] Memantine HCl 10 mg PO BID 07/05/17 [History] Tiotropium Br/Olodaterol HCl [Stiolto Respimat Inhal [place]] 2 puff IH DAILY 11/17 [History] metOLazone [Zaroxolyn] 2.5 mg PO BID 07/20/17 [History] Cholecalciferol (D-3) [Vitamin D] 2,000 unit PO DAILY 10/04/17 [History] Eucerin Creme 1 appl TP QID PRN 10/04/17 [History] Fluticasone Propionate Nasal [Flonase] 100 mcg NS DAILY 10/04/17 [History] Fluticasone/Salmeterol [Advair 250-50 Diskus] 1 puff IH BID 10/04/17 [History] LORazepam [Ativan] 0.5 mg PO HS 10/04/17 [History] Lubiprostone [Amitiza] 16 mcg PO BID 10/04/17 [History] Melatonin [Melatin] 9 mg PO HS 10/04/17 [History] Metoprolol XL (24 HR) Succ [Toprol Xl] 12.5 mg PO QPM 10/04/17 [History] Spironolactone [Aldactone] 100 mg PO DAILY 10/04/17 [History] Trazodone HCl 200 mg PO HS 10/04/17 [History] Lidocaine Patch [Lidoderm 5% patch] 1 patch TP DAILY 10/22/17 [History] Metoclopramide [Reglan] 10 mg IVP Q6HR vial 10/30/17 [Rx] OxyCODONE Immed Rel [Roxicodone 10 MG] 10 mg PO QID PRN 2 Days #8 tablet [Rx] Simethicone [Gas-X] 80 mg PO TID PRN tab.chew 10/30/17 [Rx] Allergies/Adverse Reactions: 3 Allergy/AdvReac Type Severity Reaction Status Date / Time IVP DYE Allergy Anaphylaxis Uncoded 10/04/17 13:23 - Respiratory Orders Smoking Cessation: Smoking cessation has been advised. For more information, call the [place] Tobacco Quit Line at 1-799-YCVX-NOW. CERTIFICATION: I certify that the transfer of the above named patient to an Extended Care Facility is necessary for the continuing treatment of the diagnosis listed. The above information is true and accurate reflection of patient's current condition. Confidential - Redisclosure prohibited without a patient's written consent.
== END 2017-10-30 12:45 | DRG 392 ==
LOC: 3ANU → SUATTDRO 02:09
PROVIDERS: ADMIT Surgery; ATTEND Hospitalist

== ENCOUNTER 2017-12-26 15:30 | Inpatient (IN) ==
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
[2017-12-26] MEDS ORDERED: 0.9 % Sodium Chloride 1,000 ML IVC ONE ×2 (15:42→17:37)
[2017-12-26 16:13] LABS: Bilirubin,Urine Negative (Negative); Blood,Urine Small (Negative); Color,Urine Yellow (Yellow); Glucose,Urine (UA) Normal (Normal); Ketones,Urine Trace mg/dL (Negative); Leukocyte Esterase,Urine Trace (Negative); Nitrite,Urine Negative (Negative); PH,Urine 5.5 pH Units (5.0-8.0); Protein,Urine Negative (Neg-Trace); Specific Gravity,Urine 1.017 (1.010-1.025); Urobilinogen,Urine Normal (Normal)
[2017-12-26 16:26] LABS: Bacteria,Urine None Seen per hpf (None-Few); Hyaline Casts,Urine None Seen per lpf (None-Few); Squamous Epithelial Cell,Urine Many per lpf (None-Few); WBC,Urine 0-3 per hpf (0-3)
[2017-12-26 16:28] LABS: Clarity,Urine Clear (Clear)
[2017-12-26 16:37] LABS: Basophils % 0.3 %; Eosinophils # 0.2 K/mcL (0.0-0.6); Eosinophils % 3.2 %; Hematocrit 38.5 % (37.5-50.1); Hemoglobin 12.5 g/dL (12.9-16.9); Immature Granulocytes % 0.5 % (0-4); Lymphocytes % 13.5 %; Mean Corpuscular HGB Conc 32.5 g/dL (31.6-35.5); Mean Corpuscular Hemoglobin 29.3 pg (28.0-33.3); Mean Corpuscular Volume 90.2 fL (83.0-100.0); Mean Platelet Volume 9.2 fL (9.4-12.4); Monocytes # 0.7 K/mcL (0.0-1.3); Monocytes % 8.8 %; Neutrophils # 5.5 K/mcL (1.6-8.9); Platelet Count 169 K/mcL (140-400); Red Blood Count 4.27 M/mcL (4.19-5.50); Red Cell Distribution Width 15.8 % (11.5-14.5); Segmented Neutrophils % 73.7 %
[2017-12-26 16:45] LABS: INR 1.7; Prothrombin Time 18.9 Seconds (9.4-12.1)
[2017-12-26 16:48] LABS: Activated Partial Thrombo Time 38.9 Seconds (26.0-36.0)
[2017-12-26 17:00] LABS: Troponin I < 0.03 ng/mL (< 0.04)
[2017-12-26 17:03] LABS: Albumin 3.5 g/dL (3.5-5.7); Albumin/Globulin Ratio 1.4 (1.1-2.2); Bilirubin,Direct 0.2 mg/dL (0.0-0.2); Bilirubin,Indirect 0.1 mg/dL (0.0-1.2); Bilirubin,Total 0.3 mg/dL (0.3-1.0); Globulin 2.5 g/dL (2.4-3.5)
[2017-12-26 17:14] LABS: BUN/Creatinine Ratio 12 (6-26); Blood Urea Nitrogen 48 mg/dL (8-23); Calcium 8.5 mg/dL (8.6-10.3); Carbon Dioxide 30 mEq/L (23-29); Chloride 96 mEq/L (98-107); Glucose 102 mg/dL (70-105); Osmolality,Calculated 291 (280-300); Potassium 3.8 mEq/L (3.5-5.1); Sodium 134 mEq/L (136-145); eGFR For African Americans 18 (> 60); eGFR For Non-African Americans 15 (> 60)
--- NOTE | 2017-12-26 21:14 | Internal Med History&Physical ---
Date of Encounter: 12/26/17 Time of Encounter: 08:00 Internal Medicine - H&P: HPI Chief complaint: generalized weekness History of present illness: Mr. Issa is a 67 year old male with significant past medical history type II diabetic,COPD and CHF, he also has a history of pacemaker placement. The patient states he had a DVT, PE in the past. The patient has a history of frequent UTIs. who presented to the ER with generalized fatigue and weakness . The patient is also c/p of dyspnea and nonspecific chest pain associated with headache. The patient was evaluated by the ER staff and apparently he is kidney function was noted to be worsening from his baseline was reported creatinine of 4.0 , he also was noted to be hypotensive however he was asymptomatic, was admitted for further evaluation and management of generalized weakness and acute kidney injury. Past Med Surg Social Fam HX - Past Medical History Medical history: arthritis, atrial fibrillation, CHF, COPD, coronary artery disease, CVA, diabetes, GERD, hyperlipidemia, hypertension, pulmonary embolus Additional medical history: Pacemaker Psychiatric history: anxiety, depression - Past Surgical History Surgical History: cholecystectomy, herniorrhaphy, knee replacement, orthopedic, other, pacemaker/AICD Additional surgical history: Right knee replacement. Cardiac Ablasion - Social History Smoking Status: Former smoker Smokeless Tobacco Status: No Alcohol use: none Drug use: none - Family History Father Adopted: No Family Member Ethnicity: Non- Living Status: Hx Family Cardiac Disorders: No Hx Family Respiratory Disorders: No Hx Family Cancer: Yes (Leukemia) Hx Family GI Disorders: No Hx Family Endocrine Disorder: No Hx Family Neuromuscular Disorders: No Hx Family Neurologic Disorders: No Hx Family HEENT Disorders: No Hx Family Autoimmune Disorders: No Brother Family Member Ethnicity: Non- Living Status: Still Living Sister Family Member Ethnicity: Non- Living Status: Still Living Mother Adopted: No Family Member Ethnicity: Non- Twin of Family Member: Yes Living Status: Still Living Hx Family Cardiac Disorders: Yes (CHF, Afib) Hx Family Respiratory Disorders: No Hx Family Cancer: Yes (father leukemia) Hx Family GI Disorders: No Hx Family Endocrine Disorder: No Hx Family Neuromuscular Disorders: No Hx Family Neurologic Disorders: No Hx Family HEENT Disorders: No Hx Family Autoimmune Disorders: Yes (arthritis) Internal Medicine - H&P: Meds Aspirin Enteric Coated [Aspirin EC] 81 mg PO DAILY #0 04/09/15 [History] Rivaroxaban [Xarelto] 20 mg PO DAILY #0 04/09/15 [History] Albuterol Sulfate [Proair Hfa] 2 puff IH Q4H PRN 12/14/16 [History] Atorvastatin [Lipitor] 40 mg PO HS 12/14/16 [History] Gabapentin [Neurontin] 400 mg PO BID 12/14/16 [History] Pantoprazole Sodium [Protonix] 40 mg PO DAILY 12/14/16 [History] Polyethylene Glycol 3350 [MiraLAX Powder Bulk 17.9 Oz] 17 gm PO DAILY PRN [History] Sennosides/Docusate Sodium [Senna-Docusate Sodium Tablet] 1 tab PO BID PRN 12/14 [History] Tizanidine HCl [Zanaflex] 2 mg PO BID 12/14/16 [History] DULoxetine [Cymbalta] 30 mg PO DAILY 02/14/17 [History] Tamsulosin [Flomax] 0.4 mg PO BID 02/14/17 [History] Amiodarone [Cordarone] 200 mg PO DAILY 07/05/17 [History] Finasteride [Proscar] 5 mg PO DAILY 07/05/17 [History] Furosemide [Lasix] 40 mg PO BID 07/05/17 [History] Lidocaine 4% CRM (LMX) [Lmx 4] 1 appl TP TID 07/05/17 [History] Memantine HCl 10 mg PO BID 07/05/17 [History] Tiotropium Br/Olodaterol HCl [Stiolto Respimat Inhal [place]] 2 puff IH DAILY 11/17 [History] metOLazone [Zaroxolyn] 2.5 mg PO BID 07/20/17 [History] Cholecalciferol (D-3) [Vitamin D] 2,000 unit PO DAILY 10/04/17 [History] Fluticasone Propionate Nasal [Flonase] 100 mcg NS DAILY 10/04/17 [History] Fluticasone/Salmeterol [Advair 250-50 Diskus] 1 puff IH BID 10/04/17 [History] LORazepam [Ativan] 0.5 mg PO HS 10/04/17 [History] Lubiprostone [Amitiza] 16 mcg PO BID 10/04/17 [History] Melatonin [Melatin] 9 mg PO HS 10/04/17 [History] Metoprolol XL (24 HR) Succ [Toprol Xl] 12.5 mg PO QPM 10/04/17 [History] Spironolactone [Aldactone] 100 mg PO DAILY 10/04/17 [History] Trazodone HCl 200 mg PO HS 10/04/17 [History] Lidocaine Patch [Lidoderm 5% patch] 1 patch TP DAILY 10/22/17 [History] OxyCODONE Immed Rel [Roxicodone 10 MG] 10 mg PO QID PRN 2 Days #8 tablet [Rx] Simethicone [Gas-X] 80 mg PO TID PRN tab.chew 10/30/17 [Rx] 3 Allergy/AdvReac Type Severity Reaction Status Date / Time IVP DYE Allergy Severe Anaphylaxis Uncoded 12/26/17 15:55 All Systems PM: A 10-system review of systems was performed and is negative for pertinent findings except as documented above in the HPI. - Constitutional Constitutional: fatigue, malaise, no chills, no fever(s), no night sweats - Cardiovascular Cardiovascular ROS IM: chest pain, no diaphoresis, no dyspnea, no lightheadedness, no palpitations, no syncope - Respiratory Respiratory: no cough, no dyspnea, no wheezing, no excessive phlegm production - Gastrointestinal Gastrointestinal: no abdominal pain, no diarrhea, no hematemesis, no hematochezia, no melena, no nausea, no vomiting - Neurological Neurological ROS: headache(s), no confusion, no convulsions, no focal weakness, no numbness, no tingling, no tremor(s) - Constitutional Vitals: Temp Pulse Resp BP Pulse Ox 98.1 F 60 16 98/60 97 12/26/17 20:47 12/26/17 20:38 12/26/17 20:47 12/26/17 20:47 12/26/17 20:38 General appearance: Present: A&O X 3 - Head Head exam: Present: atraumatic, normocephalic - Neck Neck exam general surgery: Present: supple, trachea midline. Absent: lymphadenopathy - Respiratory Respiratory exam: Present: CTAB. Absent: accessory muscle use, rales, rhonchi, wheezes - Cardiovascular Cardiovascular exam: Present: RRR, +S1, +S2. Absent: diastolic murmur, gallop, rubs, systolic murmur - GI/Abdominal GI/Abdominal exam: Present: normal bowel sounds, soft, no peritoneal signs. Absent: distended, tenderness - Extremities Exam Extremities exam: Present: warm, radial pulses palpable and symmetrical. Absent : calf tenderness, cyanotic, pedal edema Internal Med - H&P Results - Labs CBC & Chem 7: 12/28/17 04:06 12/28/17 04:06 - Assessment and plan (1) Acute kidney injury Current Visit: Yes Status: Acute Assessment and plan: Most likely secondary to prerenal etiology due volume depletion in the setting of excessive diuresis with furosemide and metolazone and spironolactone however obstructive uropathy secondary to prostate enlargement cannot be excluded, Urinary catheter was placed in the ER. Would hold diuretics We will continue Chang catheter, start gentle IV hydration with isotonic saline , strict I&O's, renal dosing of medication as per current EGFR. (2) Diastolic CHF, chronic Current Visit: Yes Status: Chronic (3) Hypertension Current Visit: No Status: Chronic Assessment and plan: Blood pressure is in the low side, the patient on beta brisa which we will continue with holding parameterS. Qualifiers: Hypertension type: essential hypertension Qualified Code(s): I10 - Essential (primary) hypertension (4) Paroxysmal a-fib Current Visit: No Status: Chronic (5) CAD (coronary atherosclerotic disease) Current Visit: Yes Status: Chronic Assessment and plan: No evidence of acute ACS, cont home meds Qualifiers: Coronary Disease-Associated Artery/Lesion type: [place] artery [place] vs. transplanted heart: [place] heart Associated angina: without angina Qualified Code(s): I25.10 - Atherosclerotic heart disease of [place] coronary artery without angina pectoris (6) Recurrent falls Current Visit: No Status: Acute Assessment and plan: Pt, oT evaluation (7) Moderate recurrent major depression Current Visit: No Status: Acute Assessment and plan: We will cont home meds (8) BPH (benign prostatic hyperplasia) Current Visit: No Status: Chronic Assessment and plan: Consider consulting urology give possible AG 2/2 obstructive uropathy Qualifiers: Lower urinary tract symptom presence: unspecified whether lower urinary tract symptoms present Qualified Code(s): N40.0 - Benign prostatic hyperplasia without lower urinary tract symptoms (9) DVT prophylaxis Current Visit: No Status: Acute Assessment and plan: SCDs - Time Spent With Patient Total time spent is greater than 50% in coordination of care (as documented) at patient's floor/unit and/or counseling patient:
[2017-12-27] MEDS ORDERED: Sennosides/Docusate Sodium TABLET PO PRN (00:20)
[2017-12-27] MEDS ORDERED: Naloxone 0.4 MG/ML INJ IVP PRN (00:25)
[2017-12-27] MEDS ORDERED: 0.9 % Sodium Chloride 1,000 ML IVC SCH (00:30)
[2017-12-27] MEDS ORDERED: Acetaminophen 325 MG TABLET PO PRN (01:22)
[2017-12-27] MEDS ORDERED: Simethicone 80 MG TAB.CHEW PO PRN (01:22)
[2017-12-27 01:57] LABS: Basophils % 0.2 %; Eosinophils # 0.1 K/mcL (0.0-0.6); Eosinophils % 0.9 %; Hemoglobin 12.8 g/dL (12.9-16.9); Immature Granulocytes % 0.5 % (0-4); Lymphocytes # 1.1 K/mcL (0.6-4.6); Lymphocytes % 13.1 %; Mean Corpuscular Hemoglobin 28.6 pg (28.0-33.3); Mean Corpuscular Volume 89.5 fL (83.0-100.0); Mean Platelet Volume 9.3 fL (9.4-12.4); Monocytes # 0.7 K/mcL (0.0-1.3); Neutrophils # 6.3 K/mcL (1.6-8.9); Platelet Count 174 K/mcL (140-400); Red Blood Count 4.47 M/mcL (4.19-5.50); Red Cell Distribution Width 15.9 % (11.5-14.5); Segmented Neutrophils % 77.3 %
[2017-12-27 02:10] LABS: Albumin 3.6 g/dL (3.5-5.7); Albumin/Globulin Ratio 1.3 (1.1-2.2); Bilirubin,Total 0.4 mg/dL (0.3-1.0); Calcium 8.4 mg/dL (8.6-10.3); Chol/HDL Ratio 4.4 (0-4.9); Globulin 2.7 g/dL (2.4-3.5); Magnesium 1.6 mg/dL (1.6-2.6); Phosphorous 3.2 mg/dL (2.7-4.5); Potassium 3.4 mEq/L (3.5-5.1); Total Protein 6.3 g/dL (6.4-8.9)
[2017-12-27 02:12] LABS: INR 1.6; Prothrombin Time 17.1 Seconds (9.4-12.1)
[2017-12-27 03:11] LABS: Bilirubin,Urine Negative (Negative); Blood,Urine Trace (Negative); Clarity,Urine Clear (Clear); Color,Urine Yellow (Yellow); Glucose,Urine (UA) Normal (Normal); Ketones,Urine Negative (Negative); Leukocyte Esterase,Urine Negative (Negative); Nitrite,Urine Negative (Negative); Protein,Urine Trace mg/dL (Neg-Trace); Specific Gravity,Urine 1.014 (1.010-1.025); Urobilinogen,Urine Normal (Normal)
[2017-12-27 03:13] LABS: Bacteria,Urine None Seen per hpf (None-Few); Hyaline Casts,Urine None Seen per lpf (None-Few); Squamous Epithelial Cell,Urine Few per lpf (None-Few); WBC,Urine 0-3 per hpf (0-3)
[2017-12-27] MEDS ORDERED: *HR* Dextrose 50 % in Water (Syg) 50 ML SYRINGE IVP PRN (06:13)
[2017-12-27] MEDS ORDERED: Dextrose Gel 15 GM/37.5 ML TUBE PO PRN ×2 (06:13)
[2017-12-27] MEDS ORDERED: D5% in Water 1,000 ML IVC PRN (06:13)
[2017-12-27] MEDS: Budesonide/Formoterol 80/4.5 MDI IH SCH ×2 (07:37→20:06)
[2017-12-27] MEDS ORDERED: *HR* Rivaroxaban 10 MG TABLET PO SCH (09:00)
[2017-12-27] MEDS ORDERED: (Stiolto Respimat Inhal) IH SCH (09:00)
[2017-12-27] MEDS ORDERED: Gabapentin 400 MG CAPSULE PO SCH (09:00)
[2017-12-27] MEDS: *HR* Amiodarone 200 MG TABLET PO SCH (09:34)
[2017-12-27] MEDS: Aspirin Enteric Coated 81 MG Tablet PO SCH (09:34)
[2017-12-27] MEDS: tiZANidine 4 MG TABLET PO SCH ×3 (09:35→22:11)
[2017-12-27] MEDS: Cholecalciferol (D-3) 1,000 UNIT TABLET PO SCH (09:35)
[2017-12-27] MEDS: Finasteride 5 MG TABLET PO SCH (09:36)
[2017-12-27] MEDS: Insulin LISPRO 300 UNITS/3 ML VIAL SQ SCH ×4 (09:38→22:18)
[2017-12-27] MEDS: LUBIPROSTONE PO SCH ×2 (10:06→20:58)
[2017-12-27] MEDS: Fluticasone Propionate Nasal 50 MCG/SPRAY BOTTLE NS SCH (10:07)
[2017-12-27] MEDS: 0.9 % Sodium Chloride 1,000 ML IVC SCH ×2 (11:03→22:15)
[2017-12-27] MEDS: *HR* OxyCODONE Immed Rel 5 MG TABLET PO PRN (11:47)
[2017-12-27] MEDS: Lidocaine 4% CREAM (LMX) 5 GM TP SCH ×3 (11:49→20:57)
--- NOTE | 2017-12-27 12:22 | Electrocardiograph Report ---
[address] [address] Test Date: 2017-12-26 Pat Name: Dakota Issa Department: 103 Room: 2NE24 Gender: M Occupational Therapy Assistant: : 1950 Requested By: Eloy Garrido Order Number: [id number] Reading MD: Dilshad Flood Measurements Intervals [place] Rate: 63 P: 242 OR: 258 QRS: 45 QRSD: 104 T: 36 QT: 426 QTc: 434 Interpretive Statements ELECTRONIC ATRIAL PACEMAKER LOW QRS VOLTAGE IN PRECORDIAL LEADS NONSPECIFIC T-WAVE ABNORMALITY Electronically Signed On 12-27-2017 12:20:40 EDT by Dilshad lFood
--- NOTE | 2017-12-27 13:14 | Internal Med Progress Note ---
<Asif Jensen - Last Filed: 12/27/17 13:11> Date of Encounter: 12/27/17 Time of Encounter: 13:11 - Assessment and plan (1) Acute kidney injury Current Visit: Yes Status: Acute Assessment and plan: On CT the stage III. Baseline GFR appears to be around 50. Creatinine on presentation was 4.11, decreased to 3.0 once morning. Likely multifactorial in the setting of decreased oral intake and hypovolemia along with continued diuretic use as well as possible component of obstructive uropathy given BPH. Continues improving with IV hydration, continue maintenance fluids and encourage oral intake. Chang present with excellent urine output, continue Chang catheter and closely monitor urine output. Recheck BMP in the morning. No indications for acute dialysis. (2) BPH (benign prostatic hyperplasia) Current Visit: No Status: Chronic Assessment and plan: Possibly contributing to the patient's AG with obstructive uropathy. Chang in place at this time the patient has good urine output. Continue finasteride. Consider outpatient referral to urology. Qualifiers: Lower urinary tract symptom presence: unspecified whether lower urinary tract symptoms present Qualified Code(s): N40.0 - Benign prostatic hyperplasia without lower urinary tract symptoms (3) Recurrent falls Current Visit: No Status: Acute Assessment and plan: Likely due to low blood pressure, treatment as above. Consult PT/OT. (4) Hypertension Current Visit: No Status: Chronic Assessment and plan: Patient has chronic hypertension but has been hypotension, likely due to poor by mouth intake and continuing blood pressure medications as discussed above. Continue to hold home diuretics Qualifiers: Hypertension type: essential hypertension Qualified Code(s): I10 - Essential (primary) hypertension (5) Paroxysmal a-fib Current Visit: No Status: Chronic Assessment and plan: Currently rate controlled. Asymptomatic. Continue Xarelto for 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. (6) CAD (coronary atherosclerotic disease) Current Visit: Yes Status: Chronic Assessment and plan: Stable. No chest pain in the last 24 hours. Continue cardiac telemetry. Qualifiers: Coronary Disease-Associated Artery/Lesion type: [place] artery [place] vs. transplanted heart: [place] heart Associated angina: without angina Qualified Code(s): I25.10 - Atherosclerotic heart disease of [place] coronary artery without angina pectoris (7) Moderate recurrent major depression Current Visit: No Status: Acute Assessment and plan: Possibly contributing to the patient's poor oral intake along with PTSD. Continue Cymbalta for now and recommend outpatient follow-up. (8) Diastolic CHF, chronic Current Visit: Yes Status: Chronic Assessment and plan: No evidence of acute exacerbation. Diuretics are being held due to hypotension as discussed above. Urinary fluids given a GI but will closely monitor the patient's fluid status. No indication for repeat echocardiogram at this time but will consider changing the patient's clinical status. (9) COPD (chronic obstructive pulmonary disease) Current Visit: No Status: Chronic Assessment and plan: No evidence of acute exacerbation. Continue home oxygen supplementation and when necessary albuterol. Continue Symbicort Qualifiers: COPD type: unspecified COPD Qualified Code(s): J44.9 - Chronic obstructive pulmonary disease, unspecified (10) Diabetes mellitus Current Visit: No Status: Chronic Assessment and plan: Blood sugars under good control this time. Continue sliding scale insulin and adjust as necessary. Qualifiers: Diabetes mellitus type: type 2 Diabetes mellitus intermodal customer service insulin use: without intermodal customer service use Diabetes mellitus complication status: with kidney complications Diabetes mellitus complication detail: with chronic kidney disease Chronic kidney disease stage: stage 3 (moderate) Qualified Code(s): E11.22 - Type 2 diabetes mellitus with diabetic chronic kidney disease; N18.3 - Chronic kidney disease, stage 3 (moderate); N18.3 - Chronic kidney disease, stage 3 (moderate) (11) DVT prophylaxis Current Visit: No Status: Acute Assessment and plan: Currently on Xarelto for chronic 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 (12) Hypotension Current Visit: Yes Status: Acute Assessment and plan: Likely secondary to hypovolemia with continued diuretic use. Patient has responded well to IV fluids. Continue IV fluids and encourage oral intake Qualifiers: Hypotension type: hypotension due to hypovolemia Qualified Code(s): I95.89 - Other hypotension; E86.1 - Hypovolemia - Time Spent With Patient Total time spent is greater than 50% in coordination of care (as documented) at patient's floor/unit and/or counseling patient: - Subjective Interval history: Patient seen and examined at bedside. Patient reports that he feels generally fatigued. He reports decreased appetite as well as some difficulty swallowing. He reports nausea without vomiting. He denies chest pain, shortness of breath , abdominal pain. - Constitutional Vitals: Temp Pulse Resp BP Pulse Ox 98.1 F 64 18 90/62 96 12/27/17 11:04 12/27/17 11:04 12/27/17 11:04 12/27/17 11:04 12/27/17 11:04 General appearance: Present: mild distress, A&O X 3, answers questions appropriately - Respiratory Respiratory exam: Present: CTAB. Absent: rales, rhonchi, wheezes - Cardiovascular Cardiovascular exam: Present: RRR. Absent: gallop, rubs, systolic murmur - GI/Abdominal GI/Abdominal exam: Present: distended, soft. Absent: tenderness - Extremities Exam Extremities exam: Present: pedal edema (trace b/l), warm. Absent: tenderness - Neurological Exam Neurological exam: Present: alert, CN II-XII intact, oriented X3, no focal deficits Internal Medicine: Result - Labs CBC & Chem 7: 12/27/17 01:26 12/27/17 01:26 Labs: Short CBC 12/27/17 Range/Units 01:26 WBC 8.1 (4.3-11.1) K/mcL Hgb 12.8 L (12.9-16.9) g/dL Hct 40.0 (37.5-50.1) % Plt Count 174 (140-400) K/mcL Neutrophils # 6.3 (1.6-8.9) K/mcL BMP 12/27/17 01:26 Sodium 136 Potassium 3.4 L Chloride 100 Carbon Dioxide 29 BUN 40 H Creatinine 3.01 H Glucose 91 Calcium 8.4 L Liver Function 12/27/17 Range/Units 01:26 Total Bilirubin 0.4 (0.3-1.0) mg/dL AST 15 (13-39) Units/L ALT 30 (7-52) Units/L Alkaline Phosphatase 94 (34-104) Units/L Albumin 3.6 (3.5-5.7) g/dL Urine 12/27/17 Range/Units 02:50 Urine Color Yellow (Yellow) Urine Clarity Clear (Clear) Urine pH 6.0 (5.0-8.0) pH Units Ur Specific [place] 1.014 (1.010-1.025) Urine Protein Trace (Neg-Trace) mg/dL Urine Glucose (UA) Normal (Normal) mg/dL - ABG Interpretation ABG results: PT/INR, D-dimer PT 17.1 Seconds (9.4-12.1) H 12/27/17 01:26 Consult Discharge Plan - Plan Referrals: Krish-Edda Banda DO [Primary Care Provider] - <Johnny Mancia - Last Filed: 12/27/17 15:56> Date of Encounter: 12/27/17 - Assessment and plan (1) Recurrent falls Current Visit: No Status: Acute (2) Hypertension Current Visit: No Status: Chronic Qualifiers: Hypertension type: essential hypertension Qualified Code(s): I10 - Essential (primary) hypertension (3) Paroxysmal a-fib Current Visit: No Status: Chronic (4) CAD (coronary atherosclerotic disease) Current Visit: Yes Status: Chronic Qualifiers: Coronary Disease-Associated Artery/Lesion type: [place] artery [place] vs. transplanted heart: [place] heart Associated angina: without angina Qualified Code(s): I25.10 - Atherosclerotic heart disease of [place] coronary artery without angina pectoris (5) Moderate recurrent major depression Current Visit: No Status: Acute (6) COPD (chronic obstructive pulmonary disease) Current Visit: No Status: Chronic Qualifiers: COPD type: unspecified COPD Qualified Code(s): J44.9 - Chronic obstructive pulmonary disease, unspecified (7) Diabetes mellitus Current Visit: No Status: Chronic Qualifiers: Diabetes mellitus type: type 2 Diabetes mellitus fpc insulin use: without intermodal customer service use Diabetes mellitus complication status: with kidney complications Diabetes mellitus complication detail: with chronic kidney disease Chronic kidney disease stage: stage 3 (moderate) Qualified Code(s): E11.22 - Type 2 diabetes mellitus with diabetic chronic kidney disease; N18.3 - Chronic kidney disease, stage 3 (moderate); N18.3 - Chronic kidney disease, stage 3 (moderate) (8) DVT prophylaxis Current Visit: No Status: Acute (9) BPH (benign prostatic hyperplasia) Current Visit: No Status: Chronic Qualifiers: Lower urinary tract symptom presence: unspecified whether lower urinary tract symptoms present Qualified Code(s): N40.0 - Benign prostatic hyperplasia without lower urinary tract symptoms (10) Diastolic CHF, chronic Current Visit: Yes Status: Chronic (11) Acute kidney injury Current Visit: Yes Status: Acute (12) Hypotension Current Visit: Yes Status: Acute Qualifiers: Hypotension type: hypotension due to hypovolemia Qualified Code(s): I95.89 - Other hypotension; E86.1 - Hypovolemia - Time Spent With Patient Total time spent is greater than 50% in coordination of care (as documented) at patient's floor/unit and/or counseling patient: - Constitutional Vitals: Temp Pulse Resp BP Pulse Ox 98.1 F 64 18 90/62 96 12/27/17 11:04 12/27/17 11:04 12/27/17 11:04 12/27/17 11:04 12/27/17 11:04 Internal Medicine: Result - Labs CBC & Chem 7: 12/27/17 01:26 12/27/17 01:26 - ABG Interpretation ABG results: PT/INR, D-dimer PT 17.1 Seconds (9.4-12.1) H 12/27/17 01:26 - Attending Attestation I performed an independent interview and exam of this patient. I agree with the findings, assessment, and plan of Dr. Jensen, Internal medicine resident. This is a 67-year-old male with a history of hypertension, paroxysmal atrial fibrillation on Xarelto, chronic kidney disease stage III, chronic diastolic CHF with an EF of 55% by echo in July 2017. Patient has been on chronic diuretic therapy with Lasix 40 mg by mouth twice a day, Zaroxolyn 2.5 mg by mouth twice a day, as well as Aldactone 100 mg by mouth daily Patient reports decreased oral intake over the last several weeks to at least a month. He going, and food often gets stuck in his throat. He does have a history of esophageal strictures and has had dilatation in the past. Patient presents to the hospital with hypovolemia, acute on chronic kidney failure due to hypovolemia. Patient continue to take his diuretics despite his poor oral intake. Patient is responding to IV fluids. Her holding his antihypertensives for now. Do not see any sign of infection. We will continue with IV fluids. Consulted to evaluate for dysphagia. May need repeat treatment of strictures. We will likely minimize his diuretics in the future. All else as outlined above. Patient is having good urine output with IV fluids. Serum creatinine improved from 4.1 on admission to 3.0 presently. Exam: Patient appears fatigued, mild pallor, mild dyspnea Skin shows diminished turgor. Mucous membranes are dry. Mild temporal wasting Lungs showed diminished breath sounds bilaterally Heart is regular rate and rhythm Abdomen is soft nontender Extremities trace edema
[2017-12-27] MEDS ORDERED: Potassium Chloride Elixir 20 MEQ/15 ML UDC PO ONE (13:23)
[2017-12-27] MEDS ORDERED: *HR* Rivaroxaban 15 MG TABLET PO SCH (17:00)
[2017-12-27] MEDS: Metoprolol XL (24 HR) Succ 25 MG TAB.ER.24H PO SCH (17:31)
[2017-12-27] MEDS: Melatonin 3 MG TABLET PO SCH ×2 (20:55→22:10)
[2017-12-27] MEDS: traZODone 50 MG TABLET PO SCH ×2 (20:55→22:11)
[2017-12-27] MEDS: *HR* LORazepam 0.5 MG TABLET PO PRN (23:49)
[2017-12-28] MEDS: *HR* OxyCODONE Immed Rel 5 MG TABLET PO PRN ×2 (04:15→15:53)
[2017-12-28 04:28] LABS: Basophils % 0.3 %; Eosinophils # 0.1 K/mcL (0.0-0.6); Eosinophils % 1.2 %; Hematocrit 34.5 % (37.5-50.1); Hemoglobin 11.2 g/dL (12.9-16.9); Immature Granulocytes % 0.3 % (0-4); Lymphocytes # 0.9 K/mcL (0.6-4.6); Mean Corpuscular HGB Conc 32.5 g/dL (31.6-35.5); Mean Corpuscular Hemoglobin 28.8 pg (28.0-33.3); Mean Corpuscular Volume 88.7 fL (83.0-100.0); Mean Platelet Volume 9.6 fL (9.4-12.4); Monocytes # 0.8 K/mcL (0.0-1.3); Monocytes % 10.4 %; Neutrophils # 5.6 K/mcL (1.6-8.9); Platelet Count 151 K/mcL (140-400); Red Blood Count 3.89 M/mcL (4.19-5.50); Red Cell Distribution Width 16.4 % (11.5-14.5); Segmented Neutrophils % 75.8 %
[2017-12-28 04:53] LABS: Calcium 8.3 mg/dL (8.6-10.3); Magnesium 1.6 mg/dL (1.6-2.6); Potassium 4.1 mEq/L (3.5-5.1)
[2017-12-28 05:06] LABS: Thyroid Stimulating Hormone 2.022 mcIU/mL (0.340-5.600)
[2017-12-28] MEDS: Budesonide/Formoterol 80/4.5 MDI IH SCH ×2 (07:30→20:36)
[2017-12-28] MEDS: Insulin LISPRO 300 UNITS/3 ML VIAL SQ SCH ×4 (09:22→21:16)
[2017-12-28] MEDS: Aspirin Enteric Coated 81 MG Tablet PO SCH (09:51)
[2017-12-28] MEDS: *HR* Amiodarone 200 MG TABLET PO SCH (09:51)
[2017-12-28] MEDS: Finasteride 5 MG TABLET PO SCH (09:51)
[2017-12-28] MEDS: Cholecalciferol (D-3) 1,000 UNIT TABLET PO SCH (09:51)
[2017-12-28] MEDS: Fluticasone Propionate Nasal 50 MCG/SPRAY BOTTLE NS SCH (09:52)
[2017-12-28] MEDS: tiZANidine 4 MG TABLET PO SCH ×2 (09:52→22:55)
[2017-12-28] MEDS: Lidocaine 4% CREAM (LMX) 5 GM TP SCH ×3 (09:54→22:55)
[2017-12-28] MEDS: LUBIPROSTONE PO SCH ×2 (09:54→22:55)
--- NOTE | 2017-12-28 10:02 | Gastroenterology Consult Note ---
Date of Encounter: 12/28/17 Time of Encounter: 09:10 - Assessment and plan (1) Dysphagia Current Visit: No Status: Acute Assessment and plan: 67 year old male who presents with worsening kidney function. Creatinine clearance has improved with IV fluids. He also complains of dysphagia and odynophagia. Barium swallow was normal. Will proceed with EGD and possible dilation. He is on xarelto, last dose 12/26. GFR this morning is 111 which is up from 63 yesterday. Qualifiers: Dysphagia type: unspecified Qualified Code(s): R13.10 - Dysphagia, unspecified (2) Chest pain Current Visit: No Status: Resolved Assessment and plan: Pt has a history of CAD. Troponin was negative. Heart cath 07/20 was normal. Last EF 55%. Will proceed with EGD to rule out esophagitis, gastritis, or other GI causes of chest pain. Qualifiers: Chest pain type: precordial pain Qualified Code(s): R07.2 - Precordial pain - Time Spent With Patient Total time spent is greater than 50% in coordination of care (as documented) at patient's floor/unit and/or counseling patient: GI History of Present Illness - Data of Consult Patient: known to practice within the last 3 years Consult date: 12/28/17 Requesting Physician: Ani Orozco MD - Consult Narrative Reason for consult: dysphagia History of present illness: Mr. Issa is a 67 year old male with significant past medical history of DM, COPD and CHF, pacemaker placement, DVT, PE and. The patient states he had a DVT , PE in the past. The patient has a history of frequent UTIs. who presented to the ER with generalized fatigue and weakness . The patient is also c/p of dyspnea and nonspecific chest pain associated with headache. The patient was evaluated by the ER staff and apparently he is kidney function was noted to be worsening from his baseline was reported creatinine of 4.0 , he also was noted to be hypotensive however he was asymptomatic, was admitted for further evaluation and management of generalized weakness and acute kidney injury. Gi was consulted for dysphagia and a hx of esophageal stricture. The patient reports dysphagia and odynophagia with breads, meats and even water at times. He had a normal barium swallow this morning. He deniea abdominal pain, diarrhea , constipation, or rectal bleeding. He does admit to some nausea but denies vomiting. Colonoscopy: 2016 Gul diverticulosis random biopsies negative EGD: 03/18 gastritis, food residue in stomach NSAIDS/ASA: asa Anticoagulants: xarelto on hold 12/27 (creatinine clearance 65) Past Med Surg Social Fam HX - Past Medical History Medical history: arthritis, atrial fibrillation, CHF, COPD, coronary artery disease, CVA, diabetes, GERD, hyperlipidemia, hypertension, pulmonary embolus Additional medical history: Pacemaker Psychiatric history: anxiety, depression - Past Surgical History Surgical History: cholecystectomy, herniorrhaphy, knee replacement, orthopedic, other, pacemaker/AICD Additional surgical history: Right knee replacement. Cardiac Ablasion - Social History Smoking Status: Former smoker Smokeless Tobacco Status: No Alcohol use: none Drug use: none - Family History Father Adopted: No Family Member Ethnicity: Non- Living Status: Hx Family Cardiac Disorders: No Hx Family Respiratory Disorders: No Hx Family Cancer: Yes (Leukemia) Hx Family GI Disorders: No Hx Family Endocrine Disorder: No Hx Family Neuromuscular Disorders: No Hx Family Neurologic Disorders: No Hx Family HEENT Disorders: No Hx Family Autoimmune Disorders: No Brother Family Member Ethnicity: Non- Living Status: Still Living Sister Family Member Ethnicity: Non- Living Status: Still Living Mother Adopted: No Family Member Ethnicity: Non- Twin of Family Member: Yes Living Status: Still Living Hx Family Cardiac Disorders: Yes (CHF, Afib) Hx Family Respiratory Disorders: No Hx Family Cancer: Yes (father leukemia) Hx Family GI Disorders: No Hx Family Endocrine Disorder: No Hx Family Neuromuscular Disorders: No Hx Family Neurologic Disorders: No Hx Family HEENT Disorders: No Hx Family Autoimmune Disorders: Yes (arthritis) Review of Systems: GI: as per [facility] [facility] GENERAL: denies fever, has some chills EYES: denies yellow discoloration ENT: pain with swallowing and difficulty swallowing CARDIO: see HPI RESP: Shortness of breath with exertion : denies change in color of urine NEURO: denies any weakness HEME: Denies any bruising MS: denies joint pain, joint swelling or back pain. DERM: denies rash or itching PSYCH: Denies history of anxiety or depression - Constitutional Vitals: Temp Pulse Resp BP Pulse Ox 98.2 F 61 17 93/56 94 12/28/17 07:31 12/28/17 07:31 12/28/17 07:31 12/28/17 07:31 12/28/17 07:31 Exam: CONSTITUTIONAL:~alert, no acute distress.~HEAD:~normocephalic.~EYES:~no jaundice.~NECK:~no obvious swelling.~HEART:~regular rate and rhythm, no murmurs. ~LUNGS:~bilateral fair air entry.~ABDOMEN:~non distended, soft, non tender, no masses palpable, no organomegaly.~RECTAL EXAM:~Deferred.~EXTREMITIES:~no clubbing, cyanosis or edema.~SKIN:~no stigmata of chronic liver disease.~ NEUROLOGIC:~no obvious focal defect.~~~~ Results - Labs CBC & Chem 7: 12/28/17 04:06 12/28/17 04:06 Labs: Last Result Calcium 8.3 mg/dL (8.6-10.3) L 12/28/17 04:06 Troponin I < 0.03 ng/mL (< 0.04) 12/26/17 16:19 C-Reactive Protein 13 mg/L (Less than 10) H 12/26/17 16:19 Triglycerides 140 mg/dL (< 150) 12/27/17 01:26 Entire Visit Hgb 11.2 g/dL (12.9-16.9) L D 12/28/17 04:06 Hct 34.5 % (37.5-50.1) L 12/28/17 04:06 PT 17.1 Seconds (9.4-12.1) H 12/27/17 01:26 Total Bilirubin 0.4 mg/dL (0.3-1.0) 12/27/17 01:26 AST 15 Units/L (13-39) 12/27/17 01:26 ALT 30 Units/L (7-52) 12/27/17 01:26 Ammonia 25 mcmol/L (16-53) 12/26/17 16:19 Lipase 6 Units/L (11-82) L 12/26/17 16:19 - ABG ABG results: PT/INR, D-dimer PT 17.1 Seconds (9.4-12.1) H 12/27/17 01:26 - Impressions Impressions Barium Swallow X-Ray 12/28/17 08:00 IMPRESSION: Unremarkable single contrast esophagram. D/ / 12/28/2017 09:04:38 Claudia Armstrong MD / javier Interpreting Provider: Claudia Armstrong MD Consult Discharge Plan - Plan Referrals: Edda Rm DO [Primary Care Provider] -
--- NOTE | 2017-12-28 14:14 | Internal Med Progress Note ---
<Yinka Oglesby - Last Filed: 12/28/17 14:13> Date of Encounter: 12/28/17 Time of Encounter: 08:50 - Assessment and plan (1) Recurrent falls Current Visit: No Status: Acute (2) Hypertension Current Visit: No Status: Chronic Qualifiers: Hypertension type: essential hypertension Qualified Code(s): I10 - Essential (primary) hypertension (3) Paroxysmal a-fib Current Visit: No Status: Chronic (4) CAD (coronary atherosclerotic disease) Current Visit: Yes Status: Chronic Qualifiers: Coronary Disease-Associated Artery/Lesion type: [place] artery [place] vs. transplanted heart: [place] heart Associated angina: without angina Qualified Code(s): I25.10 - Atherosclerotic heart disease of [place] coronary artery without angina pectoris (5) Moderate recurrent major depression Current Visit: No Status: Acute (6) COPD (chronic obstructive pulmonary disease) Current Visit: No Status: Chronic Qualifiers: COPD type: unspecified COPD Qualified Code(s): J44.9 - Chronic obstructive pulmonary disease, unspecified (7) Diabetes mellitus Current Visit: No Status: Chronic Qualifiers: Diabetes mellitus type: type 2 Diabetes mellitus intermediate manager insulin use: without jail use Diabetes mellitus complication status: with kidney complications Diabetes mellitus complication detail: with chronic kidney disease Chronic kidney disease stage: stage 3 (moderate) Qualified Code(s): E11.22 - Type 2 diabetes mellitus with diabetic chronic kidney disease; N18.3 - Chronic kidney disease, stage 3 (moderate); N18.3 - Chronic kidney disease, stage 3 (moderate) (8) DVT prophylaxis Current Visit: No Status: Acute (9) BPH (benign prostatic hyperplasia) Current Visit: No Status: Chronic Qualifiers: Lower urinary tract symptom presence: unspecified whether lower urinary tract symptoms present Qualified Code(s): N40.0 - Benign prostatic hyperplasia without lower urinary tract symptoms (10) Diastolic CHF, chronic Current Visit: Yes Status: Chronic (11) Acute kidney injury Current Visit: Yes Status: Acute (12) Hypotension Current Visit: Yes Status: Acute Qualifiers: Hypotension type: hypotension due to hypovolemia Qualified Code(s): I95.89 - Other hypotension; E86.1 - Hypovolemia - Time Spent With Patient Total time spent is greater than 50% in coordination of care (as documented) at patient's floor/unit and/or counseling patient: - Constitutional Vitals: Temp Pulse Resp BP Pulse Ox 97.8 F 67 20 90/62 95 12/28/17 11:24 12/28/17 11:24 12/28/17 11:24 12/28/17 12:48 12/28/17 11:24 General appearance: Present: mild distress, A&O X 3, answers questions appropriately Internal Medicine: Result - Labs CBC & Chem 7: 12/28/17 04:06 12/28/17 04:06 Labs: Short CBC 12/28/17 Range/Units 04:06 WBC 7.3 (4.3-11.1) K/mcL Hgb 11.2 L D (12.9-16.9) g/dL Hct 34.5 L (37.5-50.1) % Plt Count 151 (140-400) K/mcL Neutrophils # 5.6 (1.6-8.9) K/mcL BMP 12/28/17 04:06 Sodium 135 L Potassium 4.1 Chloride 104 Carbon Dioxide 26 BUN 32 H Creatinine 1.71 H Glucose 105 Calcium 8.3 L - ABG Interpretation ABG results: PT/INR, D-dimer PT 17.1 Seconds (9.4-12.1) H 12/27/17 01:26 - Impressions Impressions Barium Swallow X-Ray 12/28/17 08:00 IMPRESSION: Unremarkable single contrast esophagram. D/ / 12/28/2017 09:04:38 Claudia Arsmtrong MD / [email or web address] Interpreting Provider: Claudia Armstrong MD - VTE Documentation of Mechanical Device: Intermittent pneumatic compression device Consult Discharge Plan - Plan Referrals: Edda Rm DO [Primary Care Provider] - <Johnny Mancia - Last Filed: 12/28/17 15:47> Date of Encounter: 12/28/17 - Assessment and plan (1) Recurrent falls Current Visit: No Status: Acute (2) Hypertension Current Visit: No Status: Chronic Qualifiers: Hypertension type: essential hypertension Qualified Code(s): I10 - Essential (primary) hypertension (3) Paroxysmal a-fib Current Visit: No Status: Chronic (4) CAD (coronary atherosclerotic disease) Current Visit: Yes Status: Chronic Qualifiers: Coronary Disease-Associated Artery/Lesion type: [place] artery [place] vs. transplanted heart: [place] heart Associated angina: without angina Qualified Code(s): I25.10 - Atherosclerotic heart disease of [place] coronary artery without angina pectoris (5) Moderate recurrent major depression Current Visit: No Status: Acute (6) COPD (chronic obstructive pulmonary disease) Current Visit: No Status: Chronic Qualifiers: COPD type: unspecified COPD Qualified Code(s): J44.9 - Chronic obstructive pulmonary disease, unspecified (7) Diabetes mellitus Current Visit: No Status: Chronic Qualifiers: Diabetes mellitus type: type 2 Diabetes mellitus intermediate manager insulin use: without intermediate manager use Diabetes mellitus complication status: with kidney complications Diabetes mellitus complication detail: with chronic kidney disease Chronic kidney disease stage: stage 3 (moderate) Qualified Code(s): E11.22 - Type 2 diabetes mellitus with diabetic chronic kidney disease; N18.3 - Chronic kidney disease, stage 3 (moderate); N18.3 - Chronic kidney disease, stage 3 (moderate) (8) DVT prophylaxis Current Visit: No Status: Acute (9) BPH (benign prostatic hyperplasia) Current Visit: No Status: Chronic Qualifiers: Lower urinary tract symptom presence: unspecified whether lower urinary tract symptoms present Qualified Code(s): N40.0 - Benign prostatic hyperplasia without lower urinary tract symptoms (10) Diastolic CHF, chronic Current Visit: Yes Status: Chronic (11) Acute kidney injury Current Visit: Yes Status: Acute (12) Hypotension Current Visit: Yes Status: Acute Qualifiers: Hypotension type: hypotension due to hypovolemia Qualified Code(s): I95.89 - Other hypotension; E86.1 - Hypovolemia - Time Spent With Patient Total time spent is greater than 50% in coordination of care (as documented) at patient's floor/unit and/or counseling patient: - Constitutional Vitals: Temp Pulse Resp BP Pulse Ox 97.5 F L 64 19 99/60 97 12/28/17 15:24 12/28/17 15:24 12/28/17 15:24 12/28/17 15:24 12/28/17 15:24 Internal Medicine: Result - Labs CBC & Chem 7: 12/28/17 04:06 12/28/17 04:06 Labs: Short CBC 12/28/17 Range/Units 04:06 WBC 7.3 (4.3-11.1) K/mcL Hgb 11.2 L D (12.9-16.9) g/dL Hct 34.5 L (37.5-50.1) % Plt Count 151 (140-400) K/mcL Neutrophils # 5.6 (1.6-8.9) K/mcL BMP 12/28/17 04:06 Sodium 135 L Potassium 4.1 Chloride 104 Carbon Dioxide 26 BUN 32 H Creatinine 1.71 H Glucose 105 Calcium 8.3 L - ABG Interpretation ABG results: PT/INR, D-dimer PT 17.1 Seconds (9.4-12.1) H 12/27/17 01:26 - Impressions Impressions Barium Swallow X-Ray 12/28/17 08:00 IMPRESSION: Unremarkable single contrast esophagram. D/ / 12/28/2017 09:04:38 Claudia Armstrong MD / javier Interpreting Provider: Claudia Armstrong MD - Attending Attestation I performed an independent interview and exam of this patient. I am in agreement with the findings, assessment, and plan of Dr. oglesby, internal medicine resident. Patient is improving. We will continue IV fluids. At a slightly lower rate. He is having excellent urine output. Creatinine has improved to a level of 1.71 which is near his baseline. Diuretics. Patient is very weak and deconditioned and may need rehabilitation facility. Gen: NAD, AAOx3 Skin warm and dry Lung CTAB Ht RRR Abd soft +BS, NT Ext no sig edema
[2017-12-28] MEDS: 0.9 % Sodium Chloride 1,000 ML IVC SCH (15:53)
[2017-12-28] MEDS: Metoprolol XL (24 HR) Succ 25 MG TAB.ER.24H PO SCH (16:52)
[2017-12-28] MEDS: *HR* LORazepam 0.5 MG TABLET PO PRN (22:54)
[2017-12-28] MEDS: Melatonin 3 MG TABLET PO SCH (22:55)
[2017-12-28] MEDS: traZODone 50 MG TABLET PO SCH (22:55)
[2017-12-29 04:13] LABS: Basophils % 0.3 %; Eosinophils # 0.3 K/mcL (0.0-0.6); Eosinophils % 3.9 %; Hematocrit 34.9 % (37.5-50.1); Hemoglobin 11.5 g/dL (12.9-16.9); Immature Granulocytes % 0.5 % (0-4); Lymphocytes # 0.8 K/mcL (0.6-4.6); Lymphocytes % 12.4 %; Mean Corpuscular Hemoglobin 29.6 pg (28.0-33.3); Mean Corpuscular Volume 89.7 fL (83.0-100.0); Mean Platelet Volume 9.3 fL (9.4-12.4); Monocytes # 0.9 K/mcL (0.0-1.3); Monocytes % 13.3 %; Neutrophils # 4.5 K/mcL (1.6-8.9); Platelet Count 140 K/mcL (140-400); Red Blood Count 3.89 M/mcL (4.19-5.50); Red Cell Distribution Width 16.2 % (11.5-14.5); Segmented Neutrophils % 69.6 %
[2017-12-29 04:34] LABS: BUN/Creatinine Ratio 18 (6-26); Blood Urea Nitrogen 22 mg/dL (8-23); Calcium 8.6 mg/dL (8.6-10.3); Carbon Dioxide 27 mEq/L (23-29); Chloride 104 mEq/L (98-107); Glucose 106 mg/dL (70-105); Magnesium 1.5 mg/dL (1.6-2.6); Osmolality,Calculated 284 (280-300); Potassium 4.1 mEq/L (3.5-5.1); Sodium 135 mEq/L (136-145); eGFR For African Americans > 60 (> 60); eGFR For Non-African Americans 58 (> 60)
[2017-12-29] MEDS: 0.9 % Sodium Chloride 1,000 ML IVC SCH ×2 (05:54→20:51)
[2017-12-29] MEDS: Insulin LISPRO 300 UNITS/3 ML VIAL SQ SCH ×4 (07:25→22:36)
[2017-12-29] MEDS ORDERED: *HR* Propofol 200 MG/20 ML VIAL IVP ONE (07:37)
--- NOTE | 2017-12-29 07:49 | Anesthesia Evaluation PreOp ---
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: CVA (residual RUE/RLE weakness and left eye vision changes), TIA Other Medical History: Renal (stage 3 CKD), Diabetes Type II, GERD Anesthesia History: No Prior Anesthetic Complications, Past Anesthesia Alcohol Use: none Drug use: none Medications and Allergies Aspirin Enteric Coated [Aspirin EC] 81 mg PO DAILY #0 04/09/15 [History] Rivaroxaban [Xarelto] 20 mg PO DAILY #0 04/09/15 [History] Albuterol Sulfate [Proair Hfa] 2 puff IH Q4H PRN 12/14/16 [History] Atorvastatin [Lipitor] 40 mg PO HS 12/14/16 [History] Gabapentin [Neurontin] 400 mg PO BID 12/14/16 [History] Pantoprazole Sodium [Protonix] 40 mg PO DAILY 12/14/16 [History] Polyethylene Glycol 3350 [MiraLAX Powder Bulk 17.9 Oz] 17 gm PO DAILY PRN [History] Sennosides/Docusate Sodium [Senna-Docusate Sodium Tablet] 1 tab PO BID PRN 12/14 [History] Tizanidine HCl [Zanaflex] 2 mg PO BID 12/14/16 [History] DULoxetine [Cymbalta] 30 mg PO DAILY 02/14/17 [History] Tamsulosin [Flomax] 0.4 mg PO BID 02/14/17 [History] Amiodarone [Cordarone] 200 mg PO DAILY 07/05/17 [History] Finasteride [Proscar] 5 mg PO DAILY 07/05/17 [History] Furosemide [Lasix] 40 mg PO BID 07/05/17 [History] Lidocaine 4% CRM (LMX) [Lmx 4] 1 appl TP TID 07/05/17 [History] Memantine HCl 10 mg PO BID 07/05/17 [History] Tiotropium Br/Olodaterol HCl [Stiolto Respimat Inhal [place]] 2 puff IH DAILY 11/17 [History] metOLazone [Zaroxolyn] 2.5 mg PO BID 07/20/17 [History] Cholecalciferol (D-3) [Vitamin D] 2,000 unit PO DAILY 10/04/17 [History] Fluticasone Propionate Nasal [Flonase] 100 mcg NS DAILY 10/04/17 [History] Fluticasone/Salmeterol [Advair 250-50 Diskus] 1 puff IH BID 10/04/17 [History] LORazepam [Ativan] 0.5 mg PO HS 10/04/17 [History] Lubiprostone [Amitiza] 16 mcg PO BID 10/04/17 [History] Melatonin [Melatin] 9 mg PO HS 10/04/17 [History] Metoprolol XL (24 HR) Succ [Toprol Xl] 12.5 mg PO QPM 10/04/17 [History] Spironolactone [Aldactone] 100 mg PO DAILY 10/04/17 [History] Trazodone HCl 200 mg PO HS 10/04/17 [History] Lidocaine Patch [Lidoderm 5% patch] 1 patch TP DAILY 10/22/17 [History] OxyCODONE Immed Rel [Roxicodone 10 MG] 10 mg PO QID PRN 2 Days #8 tablet [Rx] Simethicone [Gas-X] 80 mg PO TID PRN tab.chew 10/30/17 [Rx] 3 Allergy/AdvReac Type Severity Reaction Status Date / Time IVP DYE Allergy Severe Anaphylaxis Uncoded 12/26/17 15:55 - Meds/Allergy Pre-op Review Medications Reviewed: Yes Allergies Reviewed: Yes Beta Blockers on Current Med List: Yes If Beta Blockers taken, Date/Time (Last Dose taken): not given last 2 days due to low BP Anesthesia Results - Labs 12/29/17 03:59 12/29/17 03:59 Laboratory Tests 12/27/17 01:26 PT 17.1 H INR 1.6 APTT 36.0 - Imaging EKG: report reviewed (12/26/2017 ELECTRONIC ATRIAL PACEMAKER LOW QRS VOLTAGE IN PRECORDIAL LEADS NONSPECIFIC T-WAVE ABNORMALITY 07/20/2017 ELECTRONIC ATRIAL PACEMAKER NONSPECIFIC T-WAVE ABNORMALITY) Additional studies: 07/08/2017 Cath Impressions: Coronary arteries are angiographically normal. Tortuous right subclavian Prior history of ventricular fibrillation arrest during/after right coronary angiography Uncertain IV dye allergy history, premedicated with prednisone and benadryl CKD 3 Recommendations: Optimal medical therapy of patient's disease. Aggressive risk factor modification. IV hydration with NS post procedure 07/05/2017 Echo Impressions: LVEF 55%. Despite the use of contrast, not all LV segments were well visualized. Overall, LV segmental function appears normal. Normal LV chamber size and wall thickness. Mild left ventricular diastolic dysfunction. Grossly normal right ventricular structure and function. No evidence of pulmonary hypertension. A device lead was visualized in the right atrium and right ventricle. No obvious significant valvular dysfunction. 12/02/2015 Stress Impression: Pharmacologic stress ECG is negative for ischemia at level of heart rate achieved. Gated EF = 70%. Perfusion imaging was negative for ischemia or infarct. 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
[2017-12-29] MEDS: Budesonide/Formoterol 80/4.5 MDI IH SCH ×2 (08:04→20:20)
[2017-12-29] MEDS: tiZANidine 4 MG TABLET PO SCH ×2 (11:38→22:36)
[2017-12-29] MEDS: Aspirin Enteric Coated 81 MG Tablet PO SCH (11:38)
[2017-12-29] MEDS: Finasteride 5 MG TABLET PO SCH (11:38)
[2017-12-29] MEDS: Cholecalciferol (D-3) 1,000 UNIT TABLET PO SCH (11:38)
[2017-12-29] MEDS: *HR* Amiodarone 200 MG TABLET PO SCH (11:38)
[2017-12-29] MEDS: Fluticasone Propionate Nasal 50 MCG/SPRAY BOTTLE NS SCH (11:39)
[2017-12-29] MEDS: LUBIPROSTONE PO SCH ×2 (11:39→22:37)
[2017-12-29] MEDS: Lidocaine 4% CREAM (LMX) 5 GM TP SCH ×3 (11:39→22:37)
--- NOTE | 2017-12-29 16:06 | Internal Med Progress Note ---
<Yinka Oglesby - Last Filed: 12/29/17 16:04> Date of Encounter: 12/29/17 Time of Encounter: 09:40 - Assessment and plan (1) BPH (benign prostatic hyperplasia) Current Visit: No Status: Chronic Assessment and plan: Possibly contributing to the patient's AG with obstructive uropathy. Chang removed yesterday Continue finasteride. Consider outpatient referral to urology. Qualifiers: Lower urinary tract symptom presence: unspecified whether lower urinary tract symptoms present Qualified Code(s): N40.0 - Benign prostatic hyperplasia without lower urinary tract symptoms (2) Dysphagia Current Visit: No Status: Acute Assessment and plan: History of dysphagia with esophageal strictures. GI consulted. Barium Swallow normal EGD today with dilation: mild schatzki rink found and dialation, 2cm hiatal hernia, mild inflammation in stomach(chronic gastritis). GI recommening soft diet and follow up as outpatient in 2 weeks; plan to follow up on pathology at that time. Plan to hold Xarelto for 2 days post EGD. Qualifiers: Dysphagia type: unspecified Qualified Code(s): R13.10 - Dysphagia, unspecified (3) Recurrent falls Current Visit: No Status: Acute Assessment and plan: PT/OT recommended SNF, however patient refusing, planning to return home with home services. (4) Hypertension Current Visit: No Status: Chronic Assessment and plan: Patient has chronic hypertension but has been hypotension, likely due to poor by mouth intake and continuing blood pressure medications as discussed above. Continue to hold home diuretics Qualifiers: Hypertension type: essential hypertension Qualified Code(s): I10 - Essential (primary) hypertension (5) Paroxysmal a-fib Current Visit: No Status: Chronic Assessment and plan: Currently rate controlled. Asymptomatic. on Xarelto for 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-being held for 2 days due to EGD (6) CAD (coronary atherosclerotic disease) Current Visit: Yes Status: Chronic Assessment and plan: No evidence of acute ACS, cont home meds Qualifiers: Coronary Disease-Associated Artery/Lesion type: [place] artery [place] vs. transplanted heart: [place] heart Associated angina: without angina Qualified Code(s): I25.10 - Atherosclerotic heart disease of [place] coronary artery without angina pectoris (7) Moderate recurrent major depression Current Visit: No Status: Acute Assessment and plan: Possibly contributing to the patient's poor oral intake along with PTSD. Continue Cymbalta for now and recommend outpatient follow-up. (8) DVT prophylaxis Current Visit: No Status: Acute Assessment and plan: SCDs (9) Diastolic CHF, chronic Current Visit: Yes Status: Chronic Assessment and plan: No evidence of acute exacerbation. Diuretics are being held due to hypotension and AG as discussed above. (10) Acute kidney injury Current Visit: Yes Status: Acute Assessment and plan: Improving. Baseline GFR appears to be around 50. Creatinine on presentation was 4.11, decreased to 1.23 today. Likely multifactorial in the setting of decreased oral intake and hypovolemia along with continued diuretic use as well as possible component of obstructive uropathy given BPH. Continues improving with IV hydration, continue maintenance fluids and encourage oral intake. Continue to closely monitor urine output. Monitor BMP in the morning. Patient can likely be discharged home tomorrow with close follow up by PCP ([facility]) . Plan is to not discharge with diuretics. - Time Spent With Patient Total time spent is greater than 50% in coordination of care (as documented) at patient's floor/unit and/or counseling patient: - Subjective Interval history: Patient seen and examined at bedside. No acute distress. Patient encouraged to get up out of bed, but not interested at this time. Patient still sleepy from EGD with dilation this morning. PT recommended SNF, however patient adamant he plans to return home at discharge. Denies chest pain. Notes dyspnea at baseline , and mild abdominal discomfort. Continuing on IVF for poor PO intake. - Constitutional Vitals: Temp Pulse Resp BP Pulse Ox 98.4 F 70 18 103/65 95 12/29/17 15:22 12/29/17 15:22 12/29/17 15:22 12/29/17 15:22 12/29/17 15:22 - Other Additional findings: Physical Exam: CONSTITUTIONAL:alert, no acute distress. HEAD:normocephalic, atraumatic EYES:Conjunctivae pink, sclera anicteric. NECK: normal ROM, supple, normal inspection. HEART:regular rate and rhythm, no murmurs. LUNGS:CTAB. No rales, rhonchi, wheezing, accessory muscle use. ABDOMEN:non distended, soft, notes mild diffuse tender, no rebound, no guarding. EXTREMITIES: no clubbing, cyanosis or edema. SKIN:dry, intact, warm. No rash, cyanosis. NEUROLOGIC: alert, awake, no focal defect; noted to have continuous tongue darting. PSYCH: flat affect Internal Medicine: Result - Labs CBC & Chem 7: 12/29/17 03:59 12/29/17 03:59 Labs: Short CBC 12/29/17 Range/Units 03:59 WBC 6.5 (4.3-11.1) K/mcL Hgb 11.5 L (12.9-16.9) g/dL Hct 34.9 L (37.5-50.1) % Plt Count 140 (140-400) K/mcL Neutrophils # 4.5 (1.6-8.9) K/mcL BMP 12/29/17 03:59 Sodium 135 L Potassium 4.1 Chloride 104 Carbon Dioxide 27 BUN 22 Creatinine 1.24 Glucose 106 H Calcium 8.6 - ABG Interpretation ABG results: PT/INR, D-dimer PT 17.1 Seconds (9.4-12.1) H 12/27/17 01:26 - VTE Documentation of Mechanical Device: Intermittent pneumatic compression device Consult Discharge Plan - Plan Referrals: Edda Rm DO [Primary Care Provider] - <Johnny Mancia - Last Filed: 12/29/17 16:38> Date of Encounter: 12/29/17 - Assessment and plan (1) Recurrent falls Current Visit: No Status: Acute (2) Hypertension Current Visit: No Status: Chronic Qualifiers: Hypertension type: essential hypertension Qualified Code(s): I10 - Essential (primary) hypertension (3) Paroxysmal a-fib Current Visit: No Status: Chronic (4) CAD (coronary atherosclerotic disease) Current Visit: Yes Status: Chronic Qualifiers: Coronary Disease-Associated Artery/Lesion type: [place] artery [place] vs. transplanted heart: [place] heart Associated angina: without angina Qualified Code(s): I25.10 - Atherosclerotic heart disease of [place] coronary artery without angina pectoris (5) Moderate recurrent major depression Current Visit: No Status: Acute (6) Dysphagia Current Visit: No Status: Acute Qualifiers: Dysphagia type: unspecified Qualified Code(s): R13.10 - Dysphagia, unspecified (7) DVT prophylaxis Current Visit: No Status: Acute (8) BPH (benign prostatic hyperplasia) Current Visit: No Status: Chronic Qualifiers: Lower urinary tract symptom presence: unspecified whether lower urinary tract symptoms present Qualified Code(s): N40.0 - Benign prostatic hyperplasia without lower urinary tract symptoms (9) Diastolic CHF, chronic Current Visit: Yes Status: Chronic (10) Acute kidney injury Current Visit: Yes Status: Acute - Time Spent With Patient Total time spent is greater than 50% in coordination of care (as documented) at patient's floor/unit and/or counseling patient: - Constitutional Vitals: Temp Pulse Resp BP Pulse Ox 98.4 F 70 18 103/65 95 12/29/17 15:22 12/29/17 15:22 12/29/17 15:22 12/29/17 15:22 12/29/17 15:22 Internal Medicine: Result - Labs CBC & Chem 7: 12/29/17 03:59 12/29/17 03:59 Labs: Short CBC 12/29/17 Range/Units 03:59 WBC 6.5 (4.3-11.1) K/mcL Hgb 11.5 L (12.9-16.9) g/dL Hct 34.9 L (37.5-50.1) % Plt Count 140 (140-400) K/mcL Neutrophils # 4.5 (1.6-8.9) K/mcL BMP 12/29/17 03:59 Sodium 135 L Potassium 4.1 Chloride 104 Carbon Dioxide 27 BUN 22 Creatinine 1.24 Glucose 106 H Calcium 8.6 - ABG Interpretation ABG results: PT/INR, D-dimer PT 17.1 Seconds (9.4-12.1) H 12/27/17 01:26 - Attending Attestation I performed an independent interview and examine of this patient. I agree with the findings, assessment, and plan of Dr. oglesby, internal medicine resident. We discussed the case in detail. She is kidney function has improved further to a creatinine of 1.23 today. We will continue gentle IV fluids 1 more night as he had dilatation of an esophageal stricture today. We will continue to advance diet as tolerated and encourage oral intake. We will continue to hold his diuretics, possibly indefinitely at least until follow-up with his primary care provider which point he can be reassessed whether or not he needs diuresis in the future. Patient otherwise continues to improve. Xarelto remains on hold given his recent stricture dilatation. This will be restarted in 2 days postoperatively. Patient remains very weak and deconditioned and is working with therapy. He is not interested in placement. All else as outlined above.
[2017-12-29] MEDS: Metoprolol XL (24 HR) Succ 25 MG TAB.ER.24H PO SCH (17:50)
[2017-12-29] MEDS: Magnesium Oxide 400 MG TABLET PO SCH (17:51)
[2017-12-29] MEDS: *HR* OxyCODONE Immed Rel 5 MG TABLET PO PRN (20:51)
[2017-12-29] MEDS: traZODone 50 MG TABLET PO SCH (22:34)
[2017-12-29] MEDS: Melatonin 3 MG TABLET PO SCH (22:35)
[2017-12-30 06:27] LABS: Basophils % 0.5 %; Eosinophils # 0.2 K/mcL (0.0-0.6); Eosinophils % 3.9 %; Hematocrit 35.4 % (37.5-50.1); Hemoglobin 11.7 g/dL (12.9-16.9); Immature Granulocytes % 0.7 % (0-4); Lymphocytes # 0.9 K/mcL (0.6-4.6); Lymphocytes % 14.7 %; Mean Corpuscular HGB Conc 33.1 g/dL (31.6-35.5); Mean Corpuscular Hemoglobin 29.9 pg (28.0-33.3); Mean Corpuscular Volume 90.5 fL (83.0-100.0); Mean Platelet Volume 9.2 fL (9.4-12.4); Monocytes # 0.9 K/mcL (0.0-1.3); Neutrophils # 4.1 K/mcL (1.6-8.9); Platelet Count 168 K/mcL (140-400); Red Blood Count 3.91 M/mcL (4.19-5.50); Red Cell Distribution Width 16.3 % (11.5-14.5); Segmented Neutrophils % 66.2 %
[2017-12-30 06:46] LABS: BUN/Creatinine Ratio 13 (6-26); Blood Urea Nitrogen 14 mg/dL (8-23); Carbon Dioxide 26 mEq/L (23-29); Chloride 104 mEq/L (98-107); Glucose 100 mg/dL (70-105); Magnesium 1.6 mg/dL (1.6-2.6); Osmolality,Calculated 283 (280-300); Potassium 4.2 mEq/L (3.5-5.1); Sodium 136 mEq/L (136-145); eGFR For African Americans > 60 (> 60); eGFR For Non-African Americans > 60 (> 60)
[2017-12-30 07:59] VITALS: BP 111/78
[2017-12-30] MEDS: Insulin LISPRO 300 UNITS/3 ML VIAL SQ SCH ×2 (09:40→14:36)
[2017-12-30] MEDS: LUBIPROSTONE PO SCH (09:40)
[2017-12-30] MEDS: Finasteride 5 MG TABLET PO SCH (09:42)
[2017-12-30] MEDS: tiZANidine 4 MG TABLET PO SCH (09:42)
[2017-12-30] MEDS: Aspirin Enteric Coated 81 MG Tablet PO SCH (09:42)
[2017-12-30] MEDS: *HR* Amiodarone 200 MG TABLET PO SCH (09:42)
[2017-12-30] MEDS: Cholecalciferol (D-3) 1,000 UNIT TABLET PO SCH (09:42)
[2017-12-30] MEDS: Magnesium Oxide 400 MG TABLET PO SCH (09:42)
[2017-12-30] MEDS: Fluticasone Propionate Nasal 50 MCG/SPRAY BOTTLE NS SCH (09:43)
[2017-12-30] MEDS: Lidocaine 4% CREAM (LMX) 5 GM TP SCH (09:47)
[2017-12-30] MEDS: Budesonide/Formoterol 80/4.5 MDI IH SCH (10:29)
--- NOTE | 2017-12-30 11:44 | Discharge Summary ---
- NOTES TO OUTPATIENT PROVIDER Notes to Outpatient Provider: Patient was admitted with profound dehydration. Renal failure with a creatinine of 4.11. We stopped all his diuretics and hydrated him with an improvement in his creatinine back to 1.08. Part of the issue also was decreased oral intake possibly due to failure to thrive but also an esophageal stricture which was dilated during this admission. We continue to hold Lasix, Aldactone, and Metolazone. He will follow-up next week with you at which point decision whether or not to start any diuretics can be evaluated. Orders not resulted at time of discharge: Pending orders 12/29/17 09:23 Surgical Pathology [PTH] Routine Date of Encounter: 12/30/17 Time of Encounter: 10:00 - Discharge Diagnosis (1) Recurrent falls Priority: Secondary Status: Acute (2) Hypertension Priority: Secondary Status: Chronic Qualifiers: Hypertension type: essential hypertension Qualified Code(s): I10 - Essential (primary) hypertension (3) Paroxysmal a-fib Priority: Secondary Status: Chronic (4) CAD (coronary atherosclerotic disease) Priority: Secondary Status: Chronic Qualifiers: Coronary Disease-Associated Artery/Lesion type: [place] artery [place] vs. transplanted heart: [place] heart Associated angina: without angina Qualified Code(s): I25.10 - Atherosclerotic heart disease of [place] coronary artery without angina pectoris (5) Moderate recurrent major depression Priority: Secondary Status: Acute (6) Dysphagia Priority: Primary Status: Acute Qualifiers: Dysphagia type: unspecified Qualified Code(s): R13.10 - Dysphagia, unspecified (7) DVT prophylaxis Priority: Secondary Status: Acute (8) BPH (benign prostatic hyperplasia) Priority: Secondary Status: Chronic Qualifiers: Lower urinary tract symptom presence: unspecified whether lower urinary tract symptoms present Qualified Code(s): N40.0 - Benign prostatic hyperplasia without lower urinary tract symptoms (9) Diastolic CHF, chronic Priority: Secondary Status: Chronic (10) Acute kidney injury Priority: Primary Status: Acute Hospital course: This is a 67-year-old male with a history of chronic diastolic CHF, 2 diabetes mellitus, COPD on home oxygen, history of DVT and PE for which he is on Xarelto. Patient also has a history of esophageal strictures. He presented to the emergency department with dehydration and acute renal failure with a creatinine of 4.11. Patient reports that he has had difficulty swallowing and food getting stuck in his throat, and has been having decreased oral intake over the last several weeks. Patient of note was on 3 different diuretics at this time and continue to take these. Patient presented to the hospital dehydrated and mildly hypotensive. He responded well to IV fluids and on day of discharge his creatinine was back to normal at 1.08. He underwent EGD and had dilation of esophageal stricture on December 29. Patient did well. He was tolerating orals. He was noted to be weak and deconditioned but was not interested in any form of inpatient facility placement. He states he does have adequate help at home and we did request home health services. Patient had a otherwise fairly uneventful hospital course. Pt was deemed stable for discharge. 38 minutes spent on discharge and coordination of care. Patient will continue to remain off diuretics for now, and whether or not to restart diuretics can be assessed on follow-up visit with his primary care provider. We asked a follow-up next week. Pt also reported decreased oral intake as he is not interested in eating. He does report having PTSD and depression. He denies any suicidal ideation. Would consider psychiatric evaluation as an outpatient as well, potentially up titration of his medications , especially if it is felt that his poor appetite is related to depression. We did check a TSH which was normal. - Time Spent with Patient Total time spent providing and/or coordinating discharge services: Greater than 30 minutes (38 minutes) - Discharge Medications Home Medications: Aspirin Enteric Coated [Aspirin EC] 81 mg PO DAILY #0 04/09/15 [History] Rivaroxaban [Xarelto] 20 mg PO DAILY #0 04/09/15 [History] Albuterol Sulfate [Proair Hfa] 2 puff IH Q4H PRN 12/14/16 [History] Atorvastatin [Lipitor] 40 mg PO HS 12/14/16 [History] Gabapentin [Neurontin] 400 mg PO BID 12/14/16 [History] Pantoprazole Sodium [Protonix] 40 mg PO DAILY 12/14/16 [History] Polyethylene Glycol 3350 [MiraLAX Powder Bulk 17.9 Oz] 17 gm PO DAILY PRN [History] Sennosides/Docusate Sodium [Senna-Docusate Sodium Tablet] 1 tab PO BID PRN 12/14 [History] Tizanidine HCl [Zanaflex] 2 mg PO BID 12/14/16 [History] DULoxetine [Cymbalta] 30 mg PO DAILY 02/14/17 [History] Tamsulosin [Flomax] 0.4 mg PO BID 02/14/17 [History] Amiodarone [Cordarone] 200 mg PO DAILY 07/05/17 [History] Finasteride [Proscar] 5 mg PO DAILY 07/05/17 [History] Lidocaine 4% CRM (LMX) [Lmx 4] 1 appl TP TID 07/05/17 [History] Memantine HCl 10 mg PO BID 07/05/17 [History] Tiotropium Br/Olodaterol HCl [Stiolto Respimat Inhal [place]] 2 puff IH DAILY 11/17 [History] Cholecalciferol (D-3) [Vitamin D] 2,000 unit PO DAILY 10/04/17 [History] Fluticasone Propionate Nasal [Flonase] 100 mcg NS DAILY 10/04/17 [History] Fluticasone/Salmeterol [Advair 250-50 Diskus] 1 puff IH BID 10/04/17 [History] LORazepam [Ativan] 0.5 mg PO HS 10/04/17 [History] Lubiprostone [Amitiza] 16 mcg PO BID 10/04/17 [History] Melatonin [Melatin] 9 mg PO HS 10/04/17 [History] Metoprolol XL (24 HR) Succ [Toprol Xl] 12.5 mg PO QPM 10/04/17 [History] Trazodone HCl 200 mg PO HS 10/04/17 [History] Lidocaine Patch [Lidoderm 5% patch] 1 patch TP DAILY 10/22/17 [History] OxyCODONE Immed Rel [Roxicodone 10 MG] 10 mg PO QID PRN 2 Days #8 tablet [Rx] Simethicone [Gas-X] 80 mg PO TID PRN tab.chew 10/30/17 [Rx] Allergies/Adverse Reactions: 3 Allergy/AdvReac Type Severity Reaction Status Date / Time IVP DYE Allergy Severe Anaphylaxis Uncoded 12/26/17 15:55 Date of admission: 12/27/17 14:40 Primary care physician: Edda Rutherford Consults: 12/28/17 09:34 Consult to Cut Out Press Operator [CONS] Routine Reason for SW Consult: PT/OT rec SNF; please see Alissa's notes from ER Anticipated date of discharge: 12/30/17 - Constitutional Vitals: Temp Pulse Resp BP Pulse Ox 98.4 F 61 16 111/78 97 12/30/17 07:58 12/30/17 07:58 12/30/17 10:30 12/30/17 07:58 12/30/17 10:30 General appearance: Present: A&O X 3 - Head Head exam: Present: atraumatic, normocephalic - Eye Eye exam: Present: PERRL, conjuntiva pink, sclera anicteric Pupils: Present: PERRL - Neck Neck exam general surgery: Present: supple, trachea midline. Absent: lymphadenopathy - Respiratory Respiratory exam: Present: CTAB. Absent: accessory muscle use, rales, rhonchi, wheezes - Cardiovascular Cardiovascular exam: Present: RRR, +S1, +S2. Absent: diastolic murmur, gallop, rubs, systolic murmur - GI/Abdominal GI/Abdominal exam: Present: normal bowel sounds, soft, no peritoneal signs. Absent: distended, tenderness - Extremities Exam Extremities exam: Present: warm, radial pulses palpable and symmetrical. Absent : calf tenderness, cyanotic, pedal edema - Neurological Exam Neurological exam: Present: CN II-XII intact, oriented X3, no focal deficits. Absent: pronater drift, facial droop, speech deficit - Skin Skin exam: Present: dry, intact - Patient Status Disposition: Home Health Service Condition: Good Functional capacity at discharge: independent ambulation Overall status at discharge: patient is back to baseline - Discharge Instructions Instructions: Heart Failure (DC), Atrial Fibrillation (DC), Chest Pain (DC), Pacemaker (DC), Diabetes Mellitus Type 2 in Adults (DC), Chronic Obstructive Pulmonary Disease (DC), Chronic Hypertension (DC), Anemia (GEN), Anxiety (DC), Fall Prevention (DC), Pneumonia (DC) Follow Up With: Edda Rm DO [Primary Care Provider] - Additional Instructions: Follow up with your doctor in 5-7 days Continue home Oxygen as before - Diet and Activity Activity: as per physical therapy, increase activity as tolerated Diet: advance to your usual diet - VTE Documentation of Mechanical Device: Intermittent pneumatic compression device
--- NOTE | 2017-12-30 11:58 | Physician Discharge Referral ---
Home Health/Hosp Referral Info Transfer to: Home Health - Diagnosis (1) Recurrent falls Status: Acute (2) Hypertension Status: Chronic (3) Paroxysmal a-fib Status: Chronic (4) CAD (coronary atherosclerotic disease) Status: Chronic (5) Moderate recurrent major depression Status: Acute (6) Dysphagia Status: Acute (7) DVT prophylaxis Status: Acute (8) BPH (benign prostatic hyperplasia) Status: Chronic (9) Diastolic CHF, chronic Status: Chronic (10) Acute kidney injury Status: Acute - Respiratory Orders Smoking Cessation: Smoking cessation has been advised. For more information, call the [place] Tobacco Quit Line at 3-153-ZPMR-NOW. - Transfer Medications Home Medications: Aspirin Enteric Coated [Aspirin EC] 81 mg PO DAILY #0 04/09/15 [History] Rivaroxaban [Xarelto] 20 mg PO DAILY #0 04/09/15 [History] Albuterol Sulfate [Proair Hfa] 2 puff IH Q4H PRN 12/14/16 [History] Atorvastatin [Lipitor] 40 mg PO HS 12/14/16 [History] Gabapentin [Neurontin] 400 mg PO BID 12/14/16 [History] Pantoprazole Sodium [Protonix] 40 mg PO DAILY 12/14/16 [History] Polyethylene Glycol 3350 [MiraLAX Powder Bulk 17.9 Oz] 17 gm PO DAILY PRN [History] Sennosides/Docusate Sodium [Senna-Docusate Sodium Tablet] 1 tab PO BID PRN 12/14 [History] Tizanidine HCl [Zanaflex] 2 mg PO BID 12/14/16 [History] DULoxetine [Cymbalta] 30 mg PO DAILY 02/14/17 [History] Tamsulosin [Flomax] 0.4 mg PO BID 02/14/17 [History] Amiodarone [Cordarone] 200 mg PO DAILY 07/05/17 [History] Finasteride [Proscar] 5 mg PO DAILY 07/05/17 [History] Lidocaine 4% CRM (LMX) [Lmx 4] 1 appl TP TID 07/05/17 [History] Memantine HCl 10 mg PO BID 07/05/17 [History] Tiotropium Br/Olodaterol HCl [Stiolto Respimat Inhal [place]] 2 puff IH DAILY 11/17 [History] Cholecalciferol (D-3) [Vitamin D] 2,000 unit PO DAILY 10/04/17 [History] Fluticasone Propionate Nasal [Flonase] 100 mcg NS DAILY 10/04/17 [History] Fluticasone/Salmeterol [Advair 250-50 Diskus] 1 puff IH BID 10/04/17 [History] LORazepam [Ativan] 0.5 mg PO HS 10/04/17 [History] Lubiprostone [Amitiza] 16 mcg PO BID 10/04/17 [History] Melatonin [Melatin] 9 mg PO HS 10/04/17 [History] Metoprolol XL (24 HR) Succ [Toprol Xl] 12.5 mg PO QPM 10/04/17 [History] Trazodone HCl 200 mg PO HS 10/04/17 [History] Lidocaine Patch [Lidoderm 5% patch] 1 patch TP DAILY 10/22/17 [History] OxyCODONE Immed Rel [Roxicodone 10 MG] 10 mg PO QID PRN 2 Days #8 tablet [Rx] Simethicone [Gas-X] 80 mg PO TID PRN tab.chew 10/30/17 [Rx] Allergies/Adverse Reactions: 3 Allergy/AdvReac Type Severity Reaction Status Date / Time IVP DYE Allergy Severe Anaphylaxis Uncoded 12/26/17 15:55 Certification: Further, I certify that my clinical findings support that this patient is homebound (i.e. absences from home require considerable and taxing effort and are for medical reasons or judaism services or infrequently or short duration when for other reasons) because: Homebound Reason: Patient requires assistance of a person or device to safely leave home Attestation: My signature below is to certify that this patient is under my care and that I, or nurse practitioner, or a physician's clinical education assistant working with me, has a face-to -face encounter with this patient.
[2017-12-31] MEDS ORDERED: *HR* Rivaroxaban 10 MG TABLET PO SCH (17:00)
== END 2017-12-30 16:51 | disposition home health service (06) | DRG 683 ==
LOC: EMEROO 15:30 → 2NENU 15:30
PROVIDERS: ADMIT Internal Medicine; ATTEND Internal Medicine
PROC: ENDOEBX (2017-12-29 09:45)

== ENCOUNTER 2018-01-12 18:12 | Inpatient (IN) ==
[2018-01-12] MEDS ORDERED: 0.9 % Sodium Chloride 1,000 ML IVC ONE (18:28)
--- NOTE | 2018-01-12 18:38 | Emergency Department Note ---
Disposition Clinical Impression: Renal insufficiency, Hypokalemia Fatigue Qualifiers: Fatigue type: unspecified Qualified Code(s): R53.83 - Other fatigue Disposition: Admitted As Inpatient Condition: Fair Referrals: Krish-Edda Banda DO [Primary Care Provider] - Forms: ED Satisfaction Letter Time of Disposition: 20:34 Recheck wound or abnormal lab - General Chief Complaint: ED Recheck/Abnormal Lab/Rx Stated Complaint: "abnormal lab results" Time Seen by Provider: 01/12/18 18:25 Source: patient Mode of arrival: ambulatory Limitations: no limitations Nursing Notes Reviewed: Yes Vital Signs Reviewed: Yes - History of Present Illness HPI Narrative: Patient is a 68-year-old male with past medical history of: chronic diastolic CHF,diabetes mellitus, COPD,, history of DVT and PE for which he is on Xarelto. He presents today due to complaints of generalized fatigue, abnormal labs. Son states that the patient has chronic kidney disease, has frequent labs checked. He was called with a critical high creatinine and BUN. He was told by his primary care physician to come to the ER. He is unsure of any other lab results. Patient has never had dialysis in the past. Currently, he denies any chest pain, shortness of breath, nausea, vomiting, fevers, diarrhea, abdominal pain. He admits to generalized fatigue but denies any specific numbness, tingling, weakness. - Related Data Home Medications Medication Instructions Recorded Confirmed Aspirin Enteric Coated [Aspirin EC] 81 mg PO DAILY #0 04/09/15 12/26/17 Rivaroxaban [Xarelto] 20 mg PO DAILY #0 04/09/15 12/26/17 Albuterol Sulfate [Proair Hfa] 2 puff IH Q4H PRN 12/14/16 12/26/17 Atorvastatin [Lipitor] 40 mg PO HS 12/14/16 12/26/17 Gabapentin [Neurontin] 400 mg PO BID 12/14/16 12/26/17 Pantoprazole Sodium [Protonix] 40 mg PO DAILY 12/14/16 12/26/17 Polyethylene Glycol 3350 [MiraLAX 17 gm PO DAILY PRN 12/14/16 12/26/17 Powder Bulk 17.9 Oz] Sennosides/Docusate Sodium 1 tab PO BID PRN 12/14/16 12/26/17 [Senna-Docusate Sodium Tablet] Tizanidine HCl [Zanaflex] 2 mg PO BID 12/14/16 12/26/17 DULoxetine [Cymbalta] 30 mg PO DAILY 02/14/17 12/26/17 Tamsulosin [Flomax] 0.4 mg PO BID 02/14/17 12/26/17 Amiodarone [Cordarone] 200 mg PO DAILY 07/05/17 12/26/17 Finasteride [Proscar] 5 mg PO DAILY 07/05/17 12/26/17 Lidocaine 4% CRM (LMX) [Lmx 4] 1 appl TP TID 07/05/17 12/26/17 Memantine HCl 10 mg PO BID 07/05/17 12/26/17 Tiotropium Br/Olodaterol HCl 2 puff IH DAILY 07/07/17 12/26/17 [Stiolto Respimat Inhal [place]] Cholecalciferol (D-3) [Vitamin D] 2,000 unit PO DAILY 10/04/17 12/26/17 Fluticasone Propionate Nasal 100 mcg NS DAILY 10/04/17 12/26/17 [Flonase] Fluticasone/Salmeterol [Advair 1 puff IH BID 10/04/17 12/26/17 250-50 Diskus] LORazepam [Ativan] 0.5 mg PO HS 10/04/17 12/26/17 Lubiprostone [Amitiza] 16 mcg PO BID 10/04/17 12/26/17 Melatonin [Melatin] 9 mg PO HS 10/04/17 12/26/17 Metoprolol XL (24 HR) Succ [Toprol 12.5 mg PO QPM 10/04/17 12/26/17 Xl] Trazodone HCl 200 mg PO HS 10/04/17 12/26/17 Lidocaine Patch [Lidoderm 5% patch] 1 patch TP DAILY 10/22/17 12/26/17 Previous Rx's Medication Instructions Recorded OxyCODONE Immed Rel [Roxicodone 10 10 mg PO QID PRN 2 Days #8 tablet 10/30/17 MG] Simethicone [Gas-X] 80 mg PO TID PRN tab.chew 10/30/17 Allergies Allergy/AdvReac Type Severity Reaction Status Date / Time IVP DYE Allergy Severe Anaphylaxis Uncoded 01/12/18 18:14 All systems ED: reviewed and negative except as stated. Constitutional: Denies: fever Cardiovascular: Denies: chest pain Respiratory: Denies: cough, dyspnea, wheezes Gastrointestinal: Denies: abdominal pain, nausea, vomiting, diarrhea Genitourinary: Denies: urgency, dysuria Neurological: Denies: headache, weakness, numbness, paresthesias Endocrine: Reports: fatigue Past Medical History - Past Medical History Attestation: Yes The following information was validated with the patient. Source: patient Medical history: Reports: arthritis, atrial fibrillation, CHF, COPD, coronary artery disease, CVA, diabetes, GERD, hyperlipidemia, hypertension, pulmonary embolus Surgical history: Reports: cholecystectomy, herniorrhaphy, knee replacement, orthopedic, other, pacemaker/AICD Psychiatric history: Reports: anxiety, depression - Social History Smoking Status: Former smoker Smokeless Tobacco Status: No Alcohol use: Reports: none Drug use: Reports: none Physical Exam - General Limitations: no limitations General appearance: other (alert but appears fatigued) - Head Head exam: atraumatic, normocephalic, normal inspection - Eye Eye exam: Present: normal appearance, PERRL, EOMI - ENT ENT exam: normal exam, normal oropharynx, mucous membranes moist - Neck Neck exam: Present: normal inspection, full ROM, trachea midline - Chest Chest inspection: Present: normal inspection, symmetric chest wall rise - Respiratory Respiratory exam: Present: normal lung sounds bilaterally - Cardiovascular Cardiovascular exam: Present: regular rate, normal rhythm, normal heart sounds - Abdominal Exam Abdominal exam: Present: soft, Non-Tender, distention (mild distention, obese). Absent: tenderness, guarding, rebound, rigidity - Extremities Exam Extremities exam: Present: normal inspection, full ROM. Absent: tenderness, pedal edema - Neurological Exam Neurological exam: Present: alert, oriented X3, CN II-XII intact. Absent: motor sensory deficit - Expanded Neurological Exam Patient oriented to: Present: person, place, time Speech: Present: fluid speech Cranial nerves: EOM function (II, III, IV, ): Normal, facial sensation (V): Normal, facial palsy (VII): Normal, spinal accessory function (XI): Normal, tongue deviation (XII): Normal Motor strength - LUE: 5/5 Motor strength - RUE: 5/5 Motor strength - LLE: 5/5 Motor strength - RLE: 5/5 Sensory exam upper extremity: light touch: Normal Sensory exam lower extremity: light touch: Normal Coma Scale Eye Opening: Spontaneous Coma Scale Motor Response: Obeys Commands Coma Scale Verbal Response: Oriented Coma Scale Total: 15 - Psychiatric Psychiatric exam: Present: normal affect, normal mood - Skin Skin exam: Present: warm, dry, intact, normal color Course Course Narrative: Initial blood pressure systolic 70s. After 1 L bolus, patient blood pressure is now 105 systolic. Basic labs obtained, EKG, chest x-ray, urinalysis also ordered. EKG showed normal sinus rhythm with no acute ST changes. 19:48 creatinine 2.9, BUN in the 50s. This is an acute change from 12/30/2017 where creatinine was 1.08. Labs consistent with acute renal insufficiency. Potassium 3.0. We will supplement with by mouth potassium. White blood cell count within normal limits. Currently waiting on chest x-ray, urinalysis. 20:19 urinalysis negative. Chest x-ray negative for any acute cardio pulmonary process. We will admit the patient for acute renal insufficiency and hypokalemia. Chest X-Ray 01/12/18 18:19 IMPRESSION: No acute abnormality detected. D/ / Kumar Purvis MD / Kumar Purvis MD Interpreting Provider: Kumar Purvis MD Vital Signs Temperature 97.8 F 01/12/18 18:14 Pulse Rate 90 01/12/18 18:14 Respiratory Rate 20 01/12/18 18:14 Blood Pressure 71/53 01/12/18 18:14 O2 Sat by Pulse Oximetry 92 01/12/18 18:14 Temperature 97.8 F 01/12/18 18:37 Pulse Rate 75 01/12/18 19:37 Respiratory Rate 18 01/12/18 19:37 Blood Pressure 106/73 01/12/18 19:37 O2 Sat by Pulse Oximetry 95 01/12/18 19:37 Oxygen Delivery Oxygen Delivery Nasal Cannula Recheck wound or abnormal lab - MDM Narrative Medical decision making narrative: Initial blood pressure systolic 70s. After 1 L bolus, patient blood pressure is now 105 systolic. Basic labs obtained, EKG, chest x-ray, urinalysis also ordered. EKG showed normal sinus rhythm with no acute ST changes. 19:48 creatinine 2.9, BUN in the 50s. This is an acute change from 12/30/2017 where creatinine was 1.08. Labs consistent with acute renal insufficiency. Potassium 3.0. We will supplement with by mouth potassium. White blood cell count within normal limits. Currently waiting on chest x-ray, urinalysis. 20:19 urinalysis negative. Chest x-ray negative for any acute cardio pulmonary process. We will admit the patient for acute renal insufficiency and hypokalemia. - Medical Records Medical records reviewed: Yes I reviewed the patient's medical records. - Lab Data Lab results reviewed: Yes I reviewed the patient's lab results. Result diagrams: 01/12/18 18:42 01/12/18 18:42 Lab Results 01/12/18 01/12/18 01/12/18 Range/Units 18:42 18:42 18:42 WBC 10.4 (4.3-11.1) K/mcL RBC 4.95 (4.19-5.50) M/mcL Hgb 14.4 (12.9-16.9) g/dL Hct 43.2 (37.5-50.1) % MCV 87.3 (83.0-100.0) fL MCH 29.1 (28.0-33.3) pg MCHC 33.3 (31.6-35.5) g/dL RDW 16.0 H (11.5-14.5) % Plt Count 361 (140-400) K/mcL MPV 9.8 (9.4-12.4) fL Immature Gran % 0.8 (0-4) % Seg Neutrophils % 67.8 % Lymphocytes % 15.3 % Monocytes % 12.3 % Eosinophils % 2.9 % Basophils % 0.9 % Neutrophils # 7.1 (1.6-8.9) K/mcL Lymphocytes # 1.6 (0.6-4.6) K/mcL Monocytes # 1.3 (0.0-1.3) K/mcL Eosinophils # 0.3 (0.0-0.6) K/mcL Basophils # 0.1 (0.0-0.2) K/mcL Sodium 133 L (136-145) mEq/L Potassium 3.0 L (3.5-5.1) mEq/L Chloride 89 L (98-107) mEq/L Carbon Dioxide 31 H (23-29) mEq/L BUN 55 H (8-23) mg/dL Creatinine 2.91 H (0.70-1.30) mg/dL Est GFR ( Amer) 26 L (> 60) Est GFR (Non-Af Amer) 22 L (> 60) BUN/Creatinine Ratio 19 (6-26) Glucose 113 H (70-105) mg/dL Calculated Osmolality 292 (280-300) Lactic Acid 1.3 (0.5-2.2) mmol/L Calcium 9.6 (8.6-10.3) mg/dL Total Bilirubin 0.4 (0.3-1.0) mg/dL AST 19 (13-39) Units/L ALT 39 (7-52) Units/L Alkaline Phosphatase 115 H (34-104) Units/L Troponin I < 0.03 (< 0.04) ng/mL Serum Total Protein 7.3 (6.4-8.9) g/dL Albumin 4.3 (3.5-5.7) g/dL Globulin 3.0 (2.4-3.5) g/dL Albumin/Globulin Ratio 1.4 (1.1-2.2) Urine Color (Yellow) Urine Clarity (Clear) Urine pH (5.0-8.0) pH Units Ur Specific [place] (1.010-1.025) Urine Protein (Neg-Trace) mg/dL Urine Glucose (UA) (Normal) mg/dL Urine Ketones (Negative) mg/dL Urine Blood (Negative) Urine Nitrite (Negative) Urine Bilirubin (Negative) Urine Urobilinogen (Normal) mg/dL Ur Leukocyte Esterase (Negative) Ur Culture Indicated? (NO) 01/12/18 Range/Units 19:40 WBC (4.3-11.1) K/mcL RBC (4.19-5.50) M/mcL Hgb (12.9-16.9) g/dL Hct (37.5-50.1) % MCV (83.0-100.0) fL MCH (28.0-33.3) pg MCHC (31.6-35.5) g/dL RDW (11.5-14.5) % Plt Count (140-400) K/mcL MPV (9.4-12.4) fL Immature Gran % (0-4) % Seg Neutrophils % % Lymphocytes % % Monocytes % % Eosinophils % % Basophils % % Neutrophils # (1.6-8.9) K/mcL Lymphocytes # (0.6-4.6) K/mcL Monocytes # (0.0-1.3) K/mcL Eosinophils # (0.0-0.6) K/mcL Basophils # (0.0-0.2) K/mcL Sodium (136-145) mEq/L Potassium (3.5-5.1) mEq/L Chloride (98-107) mEq/L Carbon Dioxide (23-29) mEq/L BUN (8-23) mg/dL Creatinine (0.70-1.30) mg/dL Est GFR ( Amer) (> 60) Est GFR (Non-Af Amer) (> 60) BUN/Creatinine Ratio (6-26) Glucose (70-105) mg/dL Calculated Osmolality (280-300) Lactic Acid (0.5-2.2) mmol/L Calcium (8.6-10.3) mg/dL Total Bilirubin (0.3-1.0) mg/dL AST (13-39) Units/L ALT (7-52) Units/L Alkaline Phosphatase (34-104) Units/L Troponin I (< 0.04) ng/mL Serum Total Protein (6.4-8.9) g/dL Albumin (3.5-5.7) g/dL Globulin (2.4-3.5) g/dL Albumin/Globulin Ratio (1.1-2.2) Urine Color Yellow (Yellow) Urine Clarity Clear (Clear) Urine pH 6.5 (5.0-8.0) pH Units Ur Specific [place] 1.007 L (1.010-1.025) Urine Protein Negative (Neg-Trace) mg/dL Urine Glucose (UA) Normal (Normal) mg/dL Urine Ketones Negative (Negative) mg/dL Urine Blood Negative (Negative) Urine Nitrite Negative (Negative) Urine Bilirubin Negative (Negative) Urine Urobilinogen Normal (Normal) mg/dL Ur Leukocyte Esterase Negative (Negative) Ur Culture Indicated? NO (NO) - Radiology Data Radiology results reviewed: Yes I reviewed the patient's radiology results. Chest X-Ray 01/12/18 18:19 IMPRESSION: No acute abnormality detected. D/ / Kumar Purvis MD / Kumar Purvis MD Interpreting Provider: Kumar Purvis MD - EKG Data EKG attestation: Yes I reviewed and interpreted this EKG. EKG results narrative: 01/12/2018 18:37. Paced rhythm. Rate 65. OR 233. QRS 131. QTC 449. Normal axis. No acute ST elevation or depression. There is some mild elevation in 2, 3, aVF with ST segment that is present on old EKG on 10/25/2013. Marina - Marina Situation: Demographics, MOA Background: Presenting Complaint, Relevant PMH, Meds, & Allergies Assessment: Vital Signs, Course and respsone to treatment, Exam Concerns, Patient/Family Expectation, Pertinant Lab Results, Outstanding Labs Recommendation: Barrier(s) to disposition, Recommendation based on pending studies, treatments, or consults [place] Report Given to: Dr. Opal Gray Repor Time: 20:34
[2018-01-12 19:13] LABS: Basophils # 0.1 K/mcL (0.0-0.2); Basophils % 0.9 %; Eosinophils # 0.3 K/mcL (0.0-0.6); Eosinophils % 2.9 %; Hematocrit 43.2 % (37.5-50.1); Hemoglobin 14.4 g/dL (12.9-16.9); Immature Granulocytes % 0.8 % (0-4); Lymphocytes # 1.6 K/mcL (0.6-4.6); Lymphocytes % 15.3 %; Mean Corpuscular HGB Conc 33.3 g/dL (31.6-35.5); Mean Corpuscular Hemoglobin 29.1 pg (28.0-33.3); Mean Corpuscular Volume 87.3 fL (83.0-100.0); Mean Platelet Volume 9.8 fL (9.4-12.4); Monocytes # 1.3 K/mcL (0.0-1.3); Monocytes % 12.3 %; Neutrophils # 7.1 K/mcL (1.6-8.9); Platelet Count 361 K/mcL (140-400); Red Blood Count 4.95 M/mcL (4.19-5.50); Segmented Neutrophils % 67.8 %
[2018-01-12 19:33] LABS: Alanine Aminotransferase 39 Units/L (7-52); Albumin 4.3 g/dL (3.5-5.7); Albumin/Globulin Ratio 1.4 (1.1-2.2); Alkaline Phosphatase 115 Units/L (34-104); Aspartate Amino Transferase 19 Units/L (13-39); BUN/Creatinine Ratio 19 (6-26); Bilirubin,Total 0.4 mg/dL (0.3-1.0); Blood Urea Nitrogen 55 mg/dL (8-23); Calcium 9.6 mg/dL (8.6-10.3); Carbon Dioxide 31 mEq/L (23-29); Chloride 89 mEq/L (98-107); Glucose 113 mg/dL (70-105); Osmolality,Calculated 292 (280-300); Sodium 133 mEq/L (136-145); Total Protein 7.3 g/dL (6.4-8.9); Troponin I < 0.03 ng/mL (< 0.04); eGFR For African Americans 26 (> 60); eGFR For Non-African Americans 22 (> 60)
[2018-01-12 19:49] LABS: Bilirubin,Urine Negative (Negative); Blood,Urine Negative (Negative); Clarity,Urine Clear (Clear); Color,Urine Yellow (Yellow); Glucose,Urine (UA) Normal (Normal); Ketones,Urine Negative (Negative); Leukocyte Esterase,Urine Negative (Negative); Nitrite,Urine Negative (Negative); PH,Urine 6.5 pH Units (5.0-8.0); Protein,Urine Negative (Neg-Trace); Specific Gravity,Urine 1.007 (1.010-1.025); Urobilinogen,Urine Normal (Normal)
--- NOTE | 2018-01-12 19:50 | Emergency Department Note ---
Disposition Clinical Impression: Renal insufficiency, Hypokalemia Fatigue Qualifiers: Fatigue type: unspecified Qualified Code(s): R53.83 - Other fatigue Disposition: Admitted As Inpatient Referrals: Edda Rm DO [Primary Care Provider] - Forms: ED Satisfaction Letter General Adult HPI - General Chief complaint: ED Recheck/Abnormal Lab/Rx Stated complaint: "abnormal lab results" Time Seen by Provider: 01/12/18 18:25 Source: patient Mode of arrival: ambulatory Limitations: no limitations - History of Present Illness Pain Scale: 0 - Related Data Home Medications Medication Instructions Recorded Confirmed Aspirin Enteric Coated [Aspirin EC] 81 mg PO DAILY #0 04/09/15 12/26/17 Rivaroxaban [Xarelto] 20 mg PO DAILY #0 04/09/15 12/26/17 Albuterol Sulfate [Proair Hfa] 2 puff IH Q4H PRN 12/14/16 12/26/17 Atorvastatin [Lipitor] 40 mg PO HS 12/14/16 12/26/17 Gabapentin [Neurontin] 400 mg PO BID 12/14/16 12/26/17 Pantoprazole Sodium [Protonix] 40 mg PO DAILY 12/14/16 12/26/17 Polyethylene Glycol 3350 [MiraLAX 17 gm PO DAILY PRN 12/14/16 12/26/17 Powder Bulk 17.9 Oz] Sennosides/Docusate Sodium 1 tab PO BID PRN 12/14/16 12/26/17 [Senna-Docusate Sodium Tablet] Tizanidine HCl [Zanaflex] 2 mg PO BID 12/14/16 12/26/17 DULoxetine [Cymbalta] 30 mg PO DAILY 02/14/17 12/26/17 Tamsulosin [Flomax] 0.4 mg PO BID 02/14/17 12/26/17 Amiodarone [Cordarone] 200 mg PO DAILY 07/05/17 12/26/17 Finasteride [Proscar] 5 mg PO DAILY 07/05/17 12/26/17 Lidocaine 4% CRM (LMX) [Lmx 4] 1 appl TP TID 07/05/17 12/26/17 Memantine HCl 10 mg PO BID 07/05/17 12/26/17 Tiotropium Br/Olodaterol HCl 2 puff IH DAILY 07/07/17 12/26/17 [Stiolto Respimat Inhal [place]] Cholecalciferol (D-3) [Vitamin D] 2,000 unit PO DAILY 10/04/17 12/26/17 Fluticasone Propionate Nasal 100 mcg NS DAILY 10/04/17 12/26/17 [Flonase] Fluticasone/Salmeterol [Advair 1 puff IH BID 10/04/17 12/26/17 250-50 Diskus] LORazepam [Ativan] 0.5 mg PO HS 10/04/17 12/26/17 Lubiprostone [Amitiza] 16 mcg PO BID 10/04/17 12/26/17 Melatonin [Melatin] 9 mg PO HS 10/04/17 12/26/17 Metoprolol XL (24 HR) Succ [Toprol 12.5 mg PO QPM 10/04/17 12/26/17 Xl] Trazodone HCl 200 mg PO HS 10/04/17 12/26/17 Lidocaine Patch [Lidoderm 5% patch] 1 patch TP DAILY 10/22/17 12/26/17 Previous Rx's Medication Instructions Recorded OxyCODONE Immed Rel [Roxicodone 10 10 mg PO QID PRN 2 Days #8 tablet 10/30/17 MG] Simethicone [Gas-X] 80 mg PO TID PRN tab.chew 10/30/17 Allergies Allergy/AdvReac Type Severity Reaction Status Date / Time IVP DYE Allergy Severe Anaphylaxis Uncoded 01/12/18 18:14 Constitutional: Denies: fever Cardiovascular: Denies: chest pain Respiratory: Denies: cough, dyspnea, wheezes Gastrointestinal: Denies: abdominal pain, nausea, vomiting, diarrhea Genitourinary: Denies: urgency, dysuria Neurological: Denies: headache, weakness, numbness, paresthesias Endocrine: Reports: fatigue Past Medical History - Past Medical History Medical history: Reports: arthritis, atrial fibrillation, CHF, COPD, coronary artery disease, CVA, diabetes, GERD, hyperlipidemia, hypertension, pulmonary embolus Surgical history: Reports: cholecystectomy, herniorrhaphy, knee replacement, orthopedic, other, pacemaker/AICD Psychiatric history: Reports: anxiety, depression - Social History Smoking Status: Former smoker Smokeless Tobacco Status: No Alcohol use: Reports: none Drug use: Reports: none Physical Exam - General Limitations: no limitations General appearance: other (alert but appears fatigued) Course Vital Signs Temperature 97.8 F 01/12/18 18:14 Pulse Rate 90 01/12/18 18:14 Respiratory Rate 20 01/12/18 18:14 Blood Pressure 71/53 01/12/18 18:14 O2 Sat by Pulse Oximetry 92 01/12/18 18:14 Temperature 97.8 F 01/12/18 18:37 Pulse Rate 67 01/12/18 19:10 Respiratory Rate 16 01/12/18 19:10 Blood Pressure 106/73 01/12/18 19:10 O2 Sat by Pulse Oximetry 95 01/12/18 19:10 Oxygen Delivery Oxygen Delivery Nasal Cannula Medical Decision Making - Lab Data Result diagrams: 01/12/18 18:42 01/12/18 18:42 Lab Results 01/12/18 01/12/18 01/12/18 Range/Units 18:42 18:42 18:42 WBC 10.4 (4.3-11.1) K/mcL RBC 4.95 (4.19-5.50) M/mcL Hgb 14.4 (12.9-16.9) g/dL Hct 43.2 (37.5-50.1) % MCV 87.3 (83.0-100.0) fL MCH 29.1 (28.0-33.3) pg MCHC 33.3 (31.6-35.5) g/dL RDW 16.0 H (11.5-14.5) % Plt Count 361 (140-400) K/mcL MPV 9.8 (9.4-12.4) fL Immature Gran % 0.8 (0-4) % Seg Neutrophils % 67.8 % Lymphocytes % 15.3 % Monocytes % 12.3 % Eosinophils % 2.9 % Basophils % 0.9 % Neutrophils # 7.1 (1.6-8.9) K/mcL Lymphocytes # 1.6 (0.6-4.6) K/mcL Monocytes # 1.3 (0.0-1.3) K/mcL Eosinophils # 0.3 (0.0-0.6) K/mcL Basophils # 0.1 (0.0-0.2) K/mcL Sodium 133 L (136-145) mEq/L Potassium 3.0 L (3.5-5.1) mEq/L Chloride 89 L (98-107) mEq/L Carbon Dioxide 31 H (23-29) mEq/L BUN 55 H (8-23) mg/dL Creatinine 2.91 H (0.70-1.30) mg/dL Est GFR ( Amer) 26 L (> 60) Est GFR (Non-Af Amer) 22 L (> 60) BUN/Creatinine Ratio 19 (6-26) Glucose 113 H (70-105) mg/dL Calculated Osmolality 292 (280-300) Lactic Acid 1.3 (0.5-2.2) mmol/L Calcium 9.6 (8.6-10.3) mg/dL Total Bilirubin 0.4 (0.3-1.0) mg/dL AST 19 (13-39) Units/L ALT 39 (7-52) Units/L Alkaline Phosphatase 115 H (34-104) Units/L Troponin I < 0.03 (< 0.04) ng/mL Serum Total Protein 7.3 (6.4-8.9) g/dL Albumin 4.3 (3.5-5.7) g/dL Globulin 3.0 (2.4-3.5) g/dL Albumin/Globulin Ratio 1.4 (1.1-2.2) Attestation Statement - Attestation Attestation: I examined this patient and my medical decision-making was reviewed with the Resident Physician. I agree with the documented findings, disposition and treatment plan as described except to the extent set forth below. 60-year-old male presents emergency room for abnormal labs. Patient outpatient labs this morning. He has had a problems with his kidneys lately. They were doing a recheck on that. They told him that his creatinine was elevated. It is indeed elevated above his normal with an elevated BUN/creatinine consistent with acute renal insufficiency and appears to be dehydrated. The family member states he has not been eating or drinking much and then turn has More weak and fatigued. His blood pressure has improved in the ER. He states his blood pressure normally runs low anywhere from 90-100 systolic. His initial blood pressure was in the 80s but the family states he has been that low before. He denies any chest pain. States he does feels weak and run down. Patient will need to be admitted for further workup of his elevated BUN/creatinine. We will also supplement potassium of 3.0.
[2018-01-12] MEDS ORDERED: Potassium Chloride Elixir 20 MEQ/15 ML UDC PO ONE (20:14)
[2018-01-12] MEDS ORDERED: *HR* Dextrose 50 % in Water (Syg) 50 ML SYRINGE IVP PRN (21:23)
[2018-01-12] MEDS ORDERED: Dextrose Gel 15 GM/37.5 ML TUBE PO PRN ×2 (21:23)
[2018-01-12] MEDS ORDERED: D5% in Water 1,000 ML IVC PRN (21:23)
[2018-01-12] MEDS ORDERED: Naloxone 0.4 MG/ML INJ IVP PRN (21:23)
--- NOTE | 2018-01-12 21:39 | Internal Med History&Physical ---
Date of Encounter: 01/12/18 Time of Encounter: 20:40 Internal Medicine - H&P: HPI Chief complaint: light headedness; abnormal labs Admitted From: Emergency Dept Plans for Post Hospital Care: Home History of present illness: Mr. Issa is a 68 year old male who presents to ER upon advice of his PCP. He saw his PCP earlier today who ordered some labs. Labs suggested acute renal failure. He came to ER as advised and was evaluated by the ER staff. He was noted to be hypotensive nad had symptoms of near syncope. He complained of feeling lightheaded, dizzy, and nearly passing out. Labs revealed acute renal failure with hypokalemia. He received IV fluid bolus with potassium replacement. He improved with the above measures but still remains symptomatically. He therefore is admitted to hospitalist service. Upon my assessment of the patient in the ER, I spoke with patient and his son who was present. Patient and son both confirm the above history. He was recently hospitalized a few weeks ago with similar symptoms. His diuretics were withheld and he was fluid hydrated. His renal function improved back to normal. Furthermore, he was advised to withhold diuretics until he follow-up with cardiology and his PCP. The first week after discharge, he felt great and had no symptoms. He followed up with cardiology last week and was restarted on his diuretics, but at a lower dose. Unfortunately, the following few days, symptoms returned and he became lightheaded, dizzy, and had several spells of near syncope. Then, today, on follow-up with his PCP, his labs suggested acute renal failure. He therefore was advised to come back to ER for evaluation and admission. 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 I recommend nephrology consultation and likely outpatient follow-up as well. Patient denies any fevers, cough, congestion, vomiting, diarrhea, chills, night sweats, or dysuria. NOTE: Current meds listed are not accurate and can not yet be verified. Past Med Surg Social Fam HX - Past Medical History Attestation: Yes The following information was validated with the patient. Source: patient, old records reviewed, obtained from family Medical history: arthritis, atrial fibrillation, CHF, COPD, coronary artery disease, CVA, diabetes, GERD, hyperlipidemia, hypertension, pulmonary embolus Additional medical history: Pacemaker Psychiatric history: anxiety, depression - Past Surgical History Surgical History: cholecystectomy, herniorrhaphy, knee replacement, orthopedic, other, pacemaker/AICD Additional surgical history: Right knee replacement. Cardiac Ablasion - Social History Smoking Status: Former smoker Smokeless Tobacco Status: No Alcohol use: none Drug use: none Current living situation: Home, With Family Activity Level: Independent ambulation Recent Out of Country Travel Within the Last 8 Weeks: No - Family History Father Adopted: No Family Member Ethnicity: Non- Living Status: Hx Family Cardiac Disorders: No Hx Family Respiratory Disorders: No Hx Family Cancer: Yes (Leukemia) Hx Family GI Disorders: No Hx Family Endocrine Disorder: No Hx Family Neuromuscular Disorders: No Hx Family Neurologic Disorders: No Hx Family HEENT Disorders: No Hx Family Autoimmune Disorders: No Brother Family Member Ethnicity: Non- Living Status: Still Living Sister Family Member Ethnicity: Non- Living Status: Still Living Mother Adopted: No Family Member Ethnicity: Non- Twin of Family Member: Yes Living Status: Still Living Hx Family Cardiac Disorders: Yes (CHF, Afib) Hx Family Respiratory Disorders: No Hx Family Cancer: Yes (father leukemia) Hx Family GI Disorders: No Hx Family Endocrine Disorder: No Hx Family Neuromuscular Disorders: No Hx Family Neurologic Disorders: No Hx Family HEENT Disorders: No Hx Family Autoimmune Disorders: Yes (arthritis) Internal Medicine - H&P: Meds Aspirin Enteric Coated [Aspirin EC] 81 mg PO DAILY #0 04/09/15 [History] Rivaroxaban [Xarelto] 20 mg PO DAILY #0 04/09/15 [History] Albuterol Sulfate [Proair Hfa] 2 puff IH Q4H PRN 12/14/16 [History] Atorvastatin [Lipitor] 40 mg PO HS 12/14/16 [History] Gabapentin [Neurontin] 400 mg PO BID 12/14/16 [History] Pantoprazole Sodium [Protonix] 40 mg PO DAILY 12/14/16 [History] Polyethylene Glycol 3350 [MiraLAX Powder Bulk 17.9 Oz] 17 gm PO DAILY PRN [History] Sennosides/Docusate Sodium [Senna-Docusate Sodium Tablet] 1 tab PO BID PRN 12/14 [History] Tizanidine HCl [Zanaflex] 2 mg PO BID 12/14/16 [History] DULoxetine [Cymbalta] 30 mg PO DAILY 02/14/17 [History] Tamsulosin [Flomax] 0.4 mg PO BID 02/14/17 [History] Amiodarone [Cordarone] 200 mg PO DAILY 07/05/17 [History] Finasteride [Proscar] 5 mg PO DAILY 07/05/17 [History] Lidocaine 4% CRM (LMX) [Lmx 4] 1 appl TP TID 07/05/17 [History] Memantine HCl 10 mg PO BID 07/05/17 [History] Tiotropium Br/Olodaterol HCl [Stiolto Respimat Inhal [place]] 2 puff IH DAILY 11/17 [History] Cholecalciferol (D-3) [Vitamin D] 2,000 unit PO DAILY 10/04/17 [History] Fluticasone Propionate Nasal [Flonase] 100 mcg NS DAILY 10/04/17 [History] Fluticasone/Salmeterol [Advair 250-50 Diskus] 1 puff IH BID 10/04/17 [History] LORazepam [Ativan] 0.5 mg PO HS 10/04/17 [History] Lubiprostone [Amitiza] 16 mcg PO BID 10/04/17 [History] Melatonin [Melatin] 9 mg PO HS 10/04/17 [History] Metoprolol XL (24 HR) Succ [Toprol Xl] 12.5 mg PO QPM 10/04/17 [History] Trazodone HCl 200 mg PO HS 10/04/17 [History] Lidocaine Patch [Lidoderm 5% patch] 1 patch TP DAILY 10/22/17 [History] OxyCODONE Immed Rel [Roxicodone 10 MG] 10 mg PO QID PRN 2 Days #8 tablet [Rx] Simethicone [Gas-X] 80 mg PO TID PRN tab.chew 10/30/17 [Rx] 3 Allergy/AdvReac Type Severity Reaction Status Date / Time IVP DYE Allergy Severe Anaphylaxis Uncoded 01/12/18 18:14 - Constitutional Constitutional: fatigue, malaise, no chills, no fever(s), no night sweats - EENT Eyes: no blurry vision, no change in vision Ears: no ear pain, no tinnitus Nose, mouth and throat: no sore throat - Cardiovascular Cardiovascular ROS IM: edema, lightheadedness, other (near syncope), no chest pain, no dyspnea, no dyspnea on exertion - Respiratory Respiratory: no cough, no dyspnea, no hemoptysis, no chest congestion, no excessive phlegm production - Gastrointestinal Gastrointestinal: no abdominal pain, no diarrhea, no hematemesis, no hematochezia, no loose stools, no nausea, no vomiting - Genitourinary Genitourinary ROS male: no dysuria, no flank pain, no hematuria - Musculoskeletal Musculoskeletal ROS IM: no arthralgias, no back pain - Integumentary Integumentary IM: no rash, no jaundice - Neurological Neurological ROS: dizziness, weakness, no focal weakness, no frequent falls, no headache(s) - Psychiatric Psychiatric: no anxiety, no depression - Endocrine Endocrine IM: no polydipsia, no polyuria - Allergic/Immunologic Allergic/Immunologic: no GI upset with certain foods - Constitutional Vitals: Temp Pulse Resp BP Pulse Ox 97.8 F 75 16 107/73 95 01/12/18 18:37 01/12/18 19:37 01/12/18 21:21 01/12/18 21:21 01/12/18 19:37 General appearance: Present: cooperative, A&O X 3, pleasant, no acute distress, answers questions appropriately Exam: looks weak and tired - Head Head exam: Present: atraumatic, normal inspection - Eye Eye exam: Present: EOMI, normal appearance, PERRL. Absent: scleral icterus Pupils: Present: normal accommodation - ENT ENT exam: Present: mucous membranes dry, normal exam - Neck Neck exam general surgery: Present: full ROM, supple. Absent: tenderness, nuchal rigidity, thyromegaly - Expanded Neck Exam Neck exam: Absent: carotid bruit - Respiratory Respiratory exam: Present: CTAB. Absent: chest wall tenderness, rales, respiratory distress, rhonchi, wheezes - Cardiovascular Cardiovascular exam: Present: distant heart sounds, RRR, +S1, +S2. Absent: diastolic murmur, systolic murmur Additional comments: palpable pacer in chest - GI/Abdominal GI/Abdominal exam: Present: normal bowel sounds, soft, no peritoneal signs. Absent: guarding, hepatomegaly, mass, rebound, splenomegaly, tenderness - Extremities Exam Extremities exam: Present: full ROM, pedal edema (1+), warm, radial pulses palpable and symmetrical. Absent: calf tenderness, joint swelling, normal capillary refill (delayed -- roughly 3 seconds), tenderness - Back Exam Back exam: Absent: CVA tenderness (L), CVA tenderness (R) - Neurological Exam Neurological exam: Present: alert, CN II-XII intact, oriented X3, no focal deficits - Psychiatric Psychiatric exam: Present: normal affect, normal mood - Skin Skin exam: Present: dry, intact, warm Internal Med - H&P Results - Labs CBC & Chem 7: 01/12/18 18:42 01/12/18 18:42 - EKG Data -: EKG Interpreted by Myself - EKG Data Prior EKG available for review: no EKG comments: 01/12/18 23:02 atrial paced rhythm - Diagnostic Studies Chest x-ray Status: image reviewed by me (negative) - Assessment and plan (1) Acute renal failure (ARF) Current Visit: Yes Status: Acute Assessment and plan: 1. Likely due to volume depletion from diuretics. 2. Hold diuretics and VERIFY home meds. 3. Monitor electrolytes and consult nephrology. Qualifiers: Acute renal failure type: unspecified Qualified Code(s): N17.9 - Acute kidney failure, unspecified (2) Near syncope Current Visit: Yes Status: Acute Assessment and plan: 1. Likely due to medication effect and volume depletion. 2. Will hold home meds and hydrate with IVF. 3. Monitor on telemetry and glucose checks. 4. Will trend troponins. (3) Chronic diastolic (congestive) heart failure Current Visit: Yes Status: Chronic Assessment and plan: 1. Patient is not in acute CHF. 2. Patient is volume depleted. 3. Hold diuretics and hydrate. 4. Monitor strict I/O and daily weights. (4) Type 2 diabetes mellitus Current Visit: Yes Status: Chronic Assessment and plan: 1. Will place on SSI and monitor glucose. 2. Need to verify home meds. Qualifiers: Diabetes mellitus ad terminal makeup operator insulin use: without ad terminal makeup operator use Diabetes mellitus complication status: with unspecified complications Qualified Code(s) : E11.8 - Type 2 diabetes mellitus with unspecified complications (5) Paroxysmal A-fib Current Visit: Yes Status: Chronic Assessment and plan: 1. Patient has atrial paced rhytyhm. 2. Need to verify home meds, but it appears he is on Xarelto for stroke prevention. 3. Resume home meds as appropriate once verified. (6) DVT prophylaxis Current Visit: Yes Status: Acute Assessment and plan: 1. Heparin SQ for now until Xarelto can be confirmed.
[2018-01-12] MEDS: 0.9 % Sodium Chloride 1,000 ML IVC SCH (22:30)
[2018-01-13] MEDS: Ondansetron 4 MG/2 ML VIAL IVP PRN ×3 (01:07→23:34)
[2018-01-13 01:10] LABS: Calcium 9.4 mg/dL (8.6-10.3); Magnesium 1.8 mg/dL (1.6-2.6); Potassium 3.4 mEq/L (3.5-5.1)
[2018-01-13 05:48] LABS: Albumin/Globulin Ratio 1.4 (1.1-2.2); Bilirubin,Total 0.4 mg/dL (0.3-1.0); Calcium 9.1 mg/dL (8.6-10.3); Globulin 2.9 g/dL (2.4-3.5); Potassium 3.3 mEq/L (3.5-5.1); Total Protein 6.9 g/dL (6.4-8.9)
[2018-01-13] MEDS: *HR* Heparin 5,000 UNIT/ML VIAL SQ SCH ×2 (06:02→17:15)
[2018-01-13] MEDS: 0.9 % Sodium Chloride 1,000 ML IVC SCH (08:36)
[2018-01-13] MEDS: Insulin LISPRO 300 UNITS/3 ML VIAL SQ SCH ×3 (08:44→16:16)
[2018-01-13] MEDS ORDERED: Sennosides/Docusate Sodium TABLET PO PRN (09:47)
[2018-01-13] MEDS ORDERED: Simethicone 80 MG TAB.CHEW PO PRN (09:47)
--- NOTE | 2018-01-13 10:09 | Nephrology Consult Note ---
Date of Encounter: 01/13/18 Time of Encounter: 10:07 Assessment and Plan (1) [id number] kidney injury Current Visit: No Status: Acute Patient with AG on CKD that seems to be secondary to volume depletion. His renal function is improving overnight with IV hydration. Continue hydration. Will follow renal function. No immediate need for dialysis. Qualifiers: Acute renal failure type: unspecified Chronic kidney disease stage: stage 3 (moderate) Qualified Code(s): N17.9 - Acute kidney failure, unspecified; N18.3 - Chronic kidney disease, stage 3 (moderate) History of Present Illness - Reason for Consult Consult date: 01/13/18 Acute Kidney Injury, Chronic Kidney Disease - Chief Complaint AG on CKD - History of Present Illness Mr. Issa is a 68 yo man with a history of CKD who presents with AG on CKD. Patient has had decreased oral intake prior to admission and he had emesis prior to admission. He denies diarrhea. [facility] was consulted for AG work-up. At the time of my evaluation the patient denies chest pain and he overall feels slightly better. Past Med Surg Social Fam HX - Past Medical History Medical history: arthritis, atrial fibrillation, CHF, COPD, coronary artery disease, CVA, diabetes, GERD, hyperlipidemia, hypertension, pulmonary embolus Additional medical history: Pacemaker Psychiatric history: anxiety, depression - Past Surgical History Surgical History: cholecystectomy, herniorrhaphy, knee replacement, orthopedic, other, pacemaker/AICD Additional surgical history: Right knee replacement. Cardiac Ablasion - Social History Smoking Status: Former smoker Smokeless Tobacco Status: No Alcohol use: none Drug use: none - Family History Father Adopted: No Family Member Ethnicity: Non- Living Status: Hx Family Cardiac Disorders: No Hx Family Respiratory Disorders: No Hx Family Cancer: Yes (Leukemia) Hx Family GI Disorders: No Hx Family Endocrine Disorder: No Hx Family Neuromuscular Disorders: No Hx Family Neurologic Disorders: No Hx Family HEENT Disorders: No Hx Family Autoimmune Disorders: No Brother Family Member Ethnicity: Non- Living Status: Still Living Sister Family Member Ethnicity: Non- Living Status: Still Living Mother Adopted: No Family Member Ethnicity: Non- Twin of Family Member: Yes Living Status: Still Living Hx Family Cardiac Disorders: Yes (CHF, Afib) Hx Family Respiratory Disorders: No Hx Family Cancer: Yes (father leukemia) Hx Family GI Disorders: No Hx Family Endocrine Disorder: No Hx Family Neuromuscular Disorders: No Hx Family Neurologic Disorders: No Hx Family HEENT Disorders: No Hx Family Autoimmune Disorders: Yes (arthritis) Medications and Allergies Aspirin Enteric Coated [Aspirin EC] 81 mg PO DAILY #0 04/09/15 [History] Rivaroxaban [Xarelto] 20 mg PO DAILY #0 04/09/15 [History] Albuterol Sulfate [Proair Hfa] 2 puff IH Q4H PRN 12/14/16 [History] Atorvastatin [Lipitor] 40 mg PO HS 12/14/16 [History] Gabapentin [Neurontin] 400 mg PO BID 12/14/16 [History] Pantoprazole Sodium [Protonix] 40 mg PO DAILY 12/14/16 [History] Polyethylene Glycol 3350 [MiraLAX Powder Bulk 17.9 Oz] 17 gm PO DAILY PRN [History] Sennosides/Docusate Sodium [Senna-Docusate Sodium Tablet] 1 tab PO BID PRN 12/14 [History] Tizanidine HCl [Zanaflex] 2 mg PO BID 12/14/16 [History] DULoxetine [Cymbalta] 30 mg PO DAILY 02/14/17 [History] Tamsulosin [Flomax] 0.4 mg PO BID 02/14/17 [History] Amiodarone [Cordarone] 200 mg PO DAILY 07/05/17 [History] Finasteride [Proscar] 5 mg PO DAILY 07/05/17 [History] Lidocaine 4% CRM (LMX) [Lmx 4] 1 appl TP TID 07/05/17 [History] Memantine HCl 10 mg PO BID 07/05/17 [History] Tiotropium Br/Olodaterol HCl [Stiolto Respimat Inhal [place]] 2 puff IH DAILY 11/17 [History] Cholecalciferol (D-3) [Vitamin D] 2,000 unit PO DAILY 10/04/17 [History] Fluticasone Propionate Nasal [Flonase] 100 mcg NS DAILY 10/04/17 [History] Fluticasone/Salmeterol [Advair 250-50 Diskus] 1 puff IH BID 10/04/17 [History] LORazepam [Ativan] 0.5 mg PO HS 10/04/17 [History] Lubiprostone [Amitiza] 16 mcg PO BID 10/04/17 [History] Melatonin [Melatin] 9 mg PO HS 10/04/17 [History] Metoprolol XL (24 HR) Succ [Toprol Xl] 12.5 mg PO QPM 10/04/17 [History] Trazodone HCl 200 mg PO HS 10/04/17 [History] Lidocaine Patch [Lidoderm 5% patch] 1 patch TP DAILY 10/22/17 [History] OxyCODONE Immed Rel [Roxicodone 10 MG] 10 mg PO QID PRN 2 Days #8 tablet [Rx] Simethicone [Gas-X] 80 mg PO TID PRN tab.chew 10/30/17 [Rx] 3 Allergy/AdvReac Type Severity Reaction Status Date / Time IVP DYE Allergy Severe Anaphylaxis Uncoded 01/12/18 18:14 Review of Systems All Systems: reviewed and no additional remarkable complaints except as stated ( as documeneted in the HPI.) Exam - Vital Signs Vital signs: Initial Vital Signs Temp Pulse Resp BP Pulse Ox 97.8 F 90 20 71/53 92 01/12/18 18:14 01/12/18 18:14 01/12/18 18:14 01/12/18 18:14 01/12/18 18:14 Vital Signs - Last 8 Hours Temp Pulse Resp BP Pulse Ox 01/13/18 07:57 98.2 F 60 20 110/72 94 01/13/18 04:16 97.8 F 62 17 107/69 94 Intake and Output 01/12/18 01/13/18 01/13/18 23:59 07:59 15:59 Intake Total 1010 / 1010 1000 / 1000 Output Total 725 / 725 500 / 500 Balance 285 / 285 500 / 500 Intake: IV Fluids 1000 / 1000 1000 / 1000 0.9 % Sodium Chloride 1,000 ML 1000 / 1000 1000 / 1000 @ 100 mls/hr IVC .Q10H [facility]I Rx#: [id number] Other Output: Urine 725 / 725 500 / 500 Other: Weight 124.1 kg Blood Glucose* 167 Patient Weight 01/13/18 23:59 Weight 124.1 kg - General Appearance General appearance: well-developed, well-nourished EENT: ATNC Neck: supple Respiratory: clear Cardiology: no edema, regular rate, regular rhythm Gastrointestinal: no tenderness, obese Integumentary: warm and dry Neurologic: alert and oriented x3 Musculoskeletal: no cyanosis Psychiatric: mood/affect appropriate Results - Lab Results 01/12/18 18:42 01/13/18 05:08 Most recent lab results Calcium 9.1 mg/dL (8.6-10.3) 01/13/18 05:08 Magnesium 1.8 mg/dL (1.6-2.6) 01/12/18 22:33 Consult Discharge Plan - Plan Referrals: Krish-Edda Banda DO [Primary Care Provider] -
[2018-01-13] MEDS: Aspirin Enteric Coated 81 MG Tablet PO SCH (11:58)
[2018-01-13] MEDS: Gabapentin 400 MG CAPSULE PO SCH ×2 (11:58→21:57)
[2018-01-13] MEDS: Finasteride 5 MG TABLET PO SCH (11:58)
[2018-01-13] MEDS: Cholecalciferol (D-3) 1,000 UNIT TABLET PO SCH (11:59)
[2018-01-13] MEDS: *HR* OxyCODONE Immed Rel 5 MG TABLET PO PRN ×2 (13:15→23:00)
[2018-01-13] MEDS: *HR* Amiodarone 200 MG TABLET PO SCH (13:15)
[2018-01-13] MEDS: Fluticasone Propionate Nasal 50 MCG/SPRAY BOTTLE NS SCH (13:16)
[2018-01-13] MEDS: Budesonide/Formoterol 80/4.5 MDI IH SCH ×2 (14:15→19:45)
[2018-01-13] MEDS: Lidocaine 4% CREAM (LMX) 5 GM TP SCH (14:43)
[2018-01-13 15:49] LABS: Acinetobacter baumannii by PCR Not Detected (Not Detect); Candida albicans by PCR Not Detected (Not Detect); Candida glabrata by PCR Not Detected (Not Detect); Candida krusei by PCR Not Detected (Not Detect); Candida parapsilosis by PCR Not Detected (Not Detect); Candida tropicalis by PCR Not Detected (Not Detect); Enterococcus by PCR Not Detected (Not Detect); Escherichia coli by PCR Not Detected (Not Detect); Klebsiella oxytoca by PCR Not Detected (Not Detect); Klebsiella pneumoniae by PCR Not Detected (Not Detect); Pseudomonas aeruginosa by PCR Not Detected (Not Detect); Serratia marcescens by PCR Not Detected (Not Detect); Staphylococcus aureus by PCR Not Detected (Not Detect); Streptococcus agalactiae(B)PCR Not Detected (Not Detect); Streptococcus by PCR Not Detected (Not Detect); Streptococcus pneumoniae PCR Not Detected (Not Detect); Streptococcus pyogenes (A) PCR Not Detected (Not Detect); mecA Methicillin-Resist Gene Not Detected (Not Detect)
--- NOTE | 2018-01-13 16:08 | Internal Med Progress Note ---
Date of Encounter: 01/13/18 Time of Encounter: 16:06 - Assessment and plan (1) Acute renal failure (ARF) Current Visit: Yes Status: Suspected Assessment and plan: Acute kidney injury likely superimposed on chronic kidney disease stage III. Due to volume depletion and diuretic use. Nephrology consulted. Creatinine improving. 2.4 today. Baseline appears to be between 1 and 2. Continue gentle IV hydration. Monitor renal function. Avoid nephrotoxic agents. Moderate risk for complications. Qualifiers: Acute renal failure type: with acute tubular necrosis Qualified Code(s): N17.0 - Acute kidney failure with tubular necrosis (2) Near syncope Current Visit: Yes Status: Acute Assessment and plan: Due to dehydration and hypotension. Blood pressure has improved now. Troponins negative. (3) Chronic diastolic (congestive) heart failure Current Visit: Yes Status: Chronic Assessment and plan: Not in acute heart failure in this time. Holding diuretics due to acute kidney injury. (4) Type 2 diabetes mellitus Current Visit: Yes Status: Chronic Assessment and plan: Fairly controlled. 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 Rate controlled and in sinus rhythm. On 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 with Xarelto (6) DVT prophylaxis Current Visit: Yes Status: Acute Assessment and plan: On Xarelto (7) Gram-positive bacteremia Current Visit: Yes Status: Acute Assessment and plan: One set of blood culture positive for gram-positive cocci not staph aureus species. Most likely contaminant. No current indication for antibiotics. Will await final culture results. Patient not having any signs of sepsis or bacteremia. WBC count is normal. He has not had any fevers or chills. - Time Spent With Patient Total time spent is greater than 50% in coordination of care (as documented) at patient's floor/unit and/or counseling patient: - Subjective Interval history: Patient seen earlier today. Feels better. Denies any chest pain or palpitations at this time. Does have some shortness of breath with exertion. No nausea or vomiting. No diarrhea. - Constitutional Vitals: Temp Pulse Resp BP Pulse Ox 97.7 F 57 16 135/79 94 01/13/18 15:55 01/13/18 15:55 01/13/18 15:55 01/13/18 15:55 01/13/18 15:55 General appearance: Present: cooperative, disheveled, A&O X 3, pleasant, no acute distress, answers questions appropriately - Neck Neck exam general surgery: Present: supple, trachea midline. Absent: lymphadenopathy - Respiratory Respiratory exam: Present: CTAB. Absent: accessory muscle use, rales, rhonchi, wheezes - Cardiovascular Cardiovascular exam: Present: RRR, +S1, +S2. Absent: diastolic murmur, gallop, rubs, systolic murmur - GI/Abdominal GI/Abdominal exam: Present: normal bowel sounds, soft, no peritoneal signs. Absent: distended, tenderness - Extremities Exam Extremities exam: Present: warm, radial pulses palpable and symmetrical. Absent : calf tenderness, cyanotic, pedal edema - Neurological Exam Neurological exam: Present: CN II-XII intact, oriented X3, no focal deficits, strengths equal and symetr throughout. Absent: facial droop, speech deficit Internal Medicine: Result - Labs CBC & Chem 7: 01/12/18 18:42 01/13/18 05:08 Labs: BMP 01/12/18 01/13/18 22:33 05:08 Sodium 135 L 134 L Potassium 3.4 L 3.3 L Chloride 89 L 90 L Carbon Dioxide 32 H 33 H BUN 54 H 51 H Creatinine 2.82 H 2.40 H Glucose 127 H 160 H Calcium 9.4 9.1 Cardiac Enzymes 01/12/18 01/13/18 Range/Units 22:33 05:08 Troponin I < 0.03 < 0.03 (< 0.04) ng/mL Liver Function 01/13/18 Range/Units 05:08 Total Bilirubin 0.4 (0.3-1.0) mg/dL AST 22 (13-39) Units/L ALT 34 (7-52) Units/L Alkaline Phosphatase 110 H (34-104) Units/L Albumin 4.0 (3.5-5.7) g/dL Consult Discharge Plan - Plan Referrals: Krish-Edda Banda DO [Primary Care Provider] -
[2018-01-13] MEDS ORDERED: *HR* Rivaroxaban 10 MG TABLET PO SCH (17:00)
[2018-01-13] MEDS: Metoprolol XL (24 HR) Succ 25 MG TAB.ER.24H PO SCH (17:15)
[2018-01-13] MEDS: 0.9 % Sodium Chloride w KCl 20 MEQ/1,000 ML MLS IVC SCH (17:17)
[2018-01-13] MEDS: tiZANidine 4 MG TABLET PO SCH (21:57)
[2018-01-13] MEDS: traZODone 50 MG TABLET PO SCH (21:57)
[2018-01-13] MEDS: Melatonin 3 MG TABLET PO SCH (21:58)
[2018-01-13] MEDS: LUBIPROSTONE PO SCH (22:35)
[2018-01-14] MEDS: Lidocaine 4% CREAM (LMX) 5 GM TP SCH ×4 (00:11→21:27)
[2018-01-14] MEDS: 0.9 % Sodium Chloride w KCl 20 MEQ/1,000 ML MLS IVC SCH ×2 (03:01→14:33)
[2018-01-14] MEDS: *HR* Heparin 5,000 UNIT/ML VIAL SQ SCH (05:02)
[2018-01-14 06:09] LABS: Basophils # 0.1 K/mcL (0.0-0.2); Basophils % 0.4 %; Eosinophils # 0.2 K/mcL (0.0-0.6); Eosinophils % 2.1 %; Hematocrit 41.9 % (37.5-50.1); Hemoglobin 13.2 g/dL (12.9-16.9); Immature Granulocytes % 0.4 % (0-4); Lymphocytes # 1.1 K/mcL (0.6-4.6); Lymphocytes % 9.5 %; Mean Corpuscular HGB Conc 31.5 g/dL (31.6-35.5); Mean Corpuscular Hemoglobin 28.9 pg (28.0-33.3); Mean Corpuscular Volume 91.9 fL (83.0-100.0); Mean Platelet Volume 10.7 fL (9.4-12.4); Monocytes # 1.1 K/mcL (0.0-1.3); Monocytes % 9.4 %; Platelet Count 196 K/mcL (140-400); Red Blood Count 4.56 M/mcL (4.19-5.50); Red Cell Distribution Width 16.1 % (11.5-14.5); Segmented Neutrophils % 78.2 %
[2018-01-14 06:24] LABS: Calcium 8.4 mg/dL (8.6-10.3); Potassium 3.5 mEq/L (3.5-5.1)
[2018-01-14] MEDS: Budesonide/Formoterol 80/4.5 MDI IH SCH ×2 (08:03→22:28)
[2018-01-14] MEDS: Insulin LISPRO 300 UNITS/3 ML VIAL SQ SCH ×3 (08:57→16:35)
[2018-01-14] MEDS: Fluticasone Propionate Nasal 50 MCG/SPRAY BOTTLE NS SCH (08:57)
[2018-01-14] MEDS: Finasteride 5 MG TABLET PO SCH (08:58)
[2018-01-14] MEDS: *HR* Amiodarone 200 MG TABLET PO SCH (08:58)
[2018-01-14] MEDS: Aspirin Enteric Coated 81 MG Tablet PO SCH (08:58)
[2018-01-14] MEDS: tiZANidine 4 MG TABLET PO SCH ×2 (08:58→20:58)
[2018-01-14] MEDS: Cholecalciferol (D-3) 1,000 UNIT TABLET PO SCH (08:58)
[2018-01-14] MEDS: (Tiotropium Br/Olodaterol Hcl [Stiolto Respimat Inhal IH SCH (08:58)
[2018-01-14] MEDS: LUBIPROSTONE PO SCH ×2 (08:58→21:29)
[2018-01-14] MEDS: Gabapentin 400 MG CAPSULE PO SCH ×2 (08:58→20:58)
--- NOTE | 2018-01-14 15:09 | Internal Med Progress Note ---
Date of Encounter: 01/14/18 Time of Encounter: 09:35 - Assessment and plan (1) Acute renal failure (ARF) Current Visit: Yes Status: Suspected Assessment and plan: Improving renal function. Creatinine 1.7 today. Continue gentle IV hydration. Qualifiers: Acute renal failure type: with acute tubular necrosis Qualified Code(s): N17.0 - Acute kidney failure with tubular necrosis (2) Near syncope Current Visit: Yes Status: Acute Assessment and plan: Due to dehydration and hypotension. Improved. No further episodes of dizziness or lightheadedness. (3) Chronic diastolic (congestive) heart failure Current Visit: Yes Status: Chronic Assessment and plan: Holding diuretics due to acute kidney injury. Follow up with cardiology as outpatient (4) Type 2 diabetes mellitus Current Visit: Yes Status: Chronic Assessment and plan: On sliding scale insulin. Blood sugars remain elevated. Will place him on long -acting insulin. 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 On 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 with Xarelto. (6) DVT prophylaxis Current Visit: Yes Status: Acute Assessment and plan: On Xarelto (7) Gram-positive bacteremia Current Visit: Yes Status: Acute Assessment and plan: Most likely contaminant. We will await for cultures to finalize. No indication for antibiotics at this time. - Time Spent With Patient Total time spent is greater than 50% in coordination of care (as documented) at patient's floor/unit and/or counseling patient: - Subjective Interval history: Patient currently lying down in bed. Doing well overall. Having good urine output. No shortness of breath. No chest pain or palpitations. No fever or chills reported overnight - Constitutional Vitals: Temp Pulse Resp BP Pulse Ox 98.9 F 63 18 101/64 92 01/14/18 10:54 01/14/18 10:54 01/14/18 10:54 01/14/18 10:54 01/14/18 10:54 General appearance: Present: cooperative, disheveled, A&O X 3, pleasant, no acute distress, answers questions appropriately - Neck Neck exam general surgery: Present: supple, trachea midline. Absent: lymphadenopathy - Respiratory Respiratory exam: Present: CTAB. Absent: accessory muscle use, rales, rhonchi, wheezes - Cardiovascular Cardiovascular exam: Present: RRR, +S1, +S2. Absent: diastolic murmur, gallop, rubs, systolic murmur - GI/Abdominal GI/Abdominal exam: Present: normal bowel sounds, soft, no peritoneal signs. Absent: distended, tenderness - Extremities Exam Extremities exam: Present: warm, radial pulses palpable and symmetrical. Absent : calf tenderness, cyanotic, pedal edema Internal Medicine: Result - Labs CBC & Chem 7: 01/14/18 04:17 01/14/18 04:17 Labs: Short CBC 01/14/18 Range/Units 04:17 WBC 11.5 H (4.3-11.1) K/mcL Hgb 13.2 (12.9-16.9) g/dL Hct 41.9 (37.5-50.1) % Plt Count 196 (140-400) K/mcL Neutrophils # 9.0 H (1.6-8.9) K/mcL BMP 01/14/18 04:17 Sodium 135 L Potassium 3.5 Chloride 95 L Carbon Dioxide 27 BUN 40 H Creatinine 1.74 H Glucose 101 Calcium 8.4 L Consult Discharge Plan - Plan Referrals: Able-Edda Banda DO [Primary Care Provider] -
[2018-01-14] MEDS ORDERED: 0.9 % Sodium Chloride w KCl 20 MEQ/1,000 ML MLS IVC SCH ×2 (15:11→22:05)
[2018-01-14] MEDS ORDERED: *HR* Rivaroxaban 15 MG TABLET PO SCH (17:00)
[2018-01-14] MEDS: Metoprolol XL (24 HR) Succ 25 MG TAB.ER.24H PO SCH (18:10)
[2018-01-14] MEDS: Melatonin 3 MG TABLET PO SCH (20:57)
[2018-01-14] MEDS: traZODone 50 MG TABLET PO SCH (20:58)
[2018-01-14] MEDS ORDERED: Insulin DETEMIR 100 UNIT/ML X5UNITS SQ SCH (21:00)
--- NOTE | 2018-01-14 22:09 | Nephrology Progress Note ---
Date of Encounter: 01/14/18 Time of Encounter: 22:06 - Assessment and Plan (1) Xvtir-tj-dnetxlc kidney injury Current Visit: No Status: Acute Patient with acute on chronic kidney failure that was felt to be related to diuretic use. With holding his diuretics and the addition of intravenous fluids his renal function appears to be improving. Avoid nephrotoxic agents and adjust medications for renal function. And likely discontinue his maintenance IV tomorrow and consider diuretic use depending upon how his renal function improves. Qualifiers: Acute renal failure type: unspecified Chronic kidney disease stage: stage 3 (moderate) Qualified Code(s): N17.9 - Acute kidney failure, unspecified; N18.3 - Chronic kidney disease, stage 3 (moderate) (2) Hypokalemia Current Visit: Yes Status: Acute Resolved Subjective Principal diagnosis: Amandeep/ckd Interval history: The patient was seen and evaluated. He had no new complaint. He specifically denies chest pain or shortness of breath. Objective - Vital Signs Vital signs: Vital Signs Temp Pulse Resp BP Pulse Ox 01/14/18 20:01 98.0 F 68 16 110/71 93 01/14/18 15:18 97.8 F 78 18 93/65 94 01/14/18 10:54 98.9 F 63 18 101/64 92 01/14/18 08:03 16 91 01/14/18 07:21 98.9 F 75 18 102/62 95 01/14/18 03:29 98.0 F 62 15 114/66 92 01/14/18 01:54 98.6 F 60 15 95/63 93 Intake and Output 01/14/18 01/14/18 01/14/18 07:59 15:59 23:59 Intake Total 1000 / 1000 1959 / 1960 600 / 600 Output Total 1850 / 1850 575 / 575 Balance 1000 / 1000 110 / 110 25 / 25 Intake: IV Fluids 1000 / 1000 1000 / 1000 KCl 20 mEq in 0.9% Sodium 1000 / 1000 1000 / 1000 Chloride 20 meq In 1,000 ml @ 100 mls/hr IVC .Q[facility]H [facility] Rx#: [id number] Oral 960 / 960 600 / 600 Other 0 / 0 Output: Urine 1850 / 1850 575 / 575 Other: Meal Lunch Dinner Percent of Meal Consumed 100% 100% Weight 124.5 kg Blood Glucose* 170 160 Patient Weight 01/14/18 23:59 Weight 124.5 kg - General Appearance General appearance: Present: well-developed, well-nourished EENT: Present: ATNC Neck: Present: supple Respiratory: Present: course breath sounds Cardiology: Present: no edema, regular rate Gastrointestinal: Present: no tenderness Integumentary: Present: warm and dry Neurologic: Present: alert and oriented x3 Psychiatric: Present: mood/affect appropriate - Lab 01/14/18 04:17 01/14/18 04:17 Most recent lab results Calcium 8.4 mg/dL (8.6-10.3) L 01/14/18 04:17 Magnesium 1.8 mg/dL (1.6-2.6) 01/12/18 22:33 Consult Discharge Plan - Plan Referrals: Krish-Edda Banda DO [Primary Care Provider] -
[2018-01-15 05:58] LABS: Basophils # 0.1 K/mcL (0.0-0.2); Basophils % 0.7 %; Eosinophils # 0.3 K/mcL (0.0-0.6); Hematocrit 37.4 % (37.5-50.1); Hemoglobin 12.1 g/dL (12.9-16.9); Immature Granulocytes % 0.8 % (0-4); Lymphocytes # 1.3 K/mcL (0.6-4.6); Lymphocytes % 13.3 %; Mean Corpuscular HGB Conc 32.4 g/dL (31.6-35.5); Mean Corpuscular Hemoglobin 28.7 pg (28.0-33.3); Mean Corpuscular Volume 88.8 fL (83.0-100.0); Mean Platelet Volume 10.1 fL (9.4-12.4); Monocytes % 10.5 %; Neutrophils # 7.1 K/mcL (1.6-8.9); Platelet Count 226 K/mcL (140-400); Red Blood Count 4.21 M/mcL (4.19-5.50); Red Cell Distribution Width 16.2 % (11.5-14.5); Segmented Neutrophils % 71.7 %
[2018-01-15 06:15] LABS: Calcium 8.5 mg/dL (8.6-10.3); Potassium 3.5 mEq/L (3.5-5.1)
[2018-01-15] MEDS: Insulin LISPRO 300 UNITS/3 ML VIAL SQ SCH ×3 (07:54→16:46)
[2018-01-15] MEDS: *HR* OxyCODONE Immed Rel 5 MG TABLET PO PRN ×2 (07:55→12:41)
[2018-01-15] MEDS: Gabapentin 400 MG CAPSULE PO SCH (07:55)
[2018-01-15] MEDS: tiZANidine 4 MG TABLET PO SCH (07:56)
[2018-01-15] MEDS: Finasteride 5 MG TABLET PO SCH (07:56)
[2018-01-15] MEDS: Cholecalciferol (D-3) 1,000 UNIT TABLET PO SCH (07:56)
[2018-01-15] MEDS: (Tiotropium Br/Olodaterol Hcl [Stiolto Respimat Inhal IH SCH (07:57)
[2018-01-15] MEDS: LUBIPROSTONE PO SCH (07:57)
[2018-01-15] MEDS: Fluticasone Propionate Nasal 50 MCG/SPRAY BOTTLE NS SCH (07:58)
[2018-01-15] MEDS: *HR* Amiodarone 200 MG TABLET PO SCH (07:58)
[2018-01-15] MEDS: Aspirin Enteric Coated 81 MG Tablet PO SCH (07:58)
[2018-01-15] MEDS: Lidocaine 4% CREAM (LMX) 5 GM TP SCH ×2 (07:59→16:45)
[2018-01-15] MEDS ORDERED: Tiotropium 18 MCG inhalation IH SCH (10:00)
--- NOTE | 2018-01-15 10:40 | Discharge Summary ---
- NOTES TO OUTPATIENT PROVIDER Notes to Outpatient Provider: Patient hospitalized with acute kidney injury on chronic kidney disease related to diuretic use. His diuretics were held and he was given IV fluids with improvement in his renal function. He is now stable to be discharged home. We will continue to hold his diuretics for now and arrange for follow-up as outpatient with his long term acute care registered nurse and environmental management specialist. Patient appears to be having very delicate response to diuretics with rapidly worsening renal function. Will need close monitoring when he is eventually placed back on diuretics for his heart failure. Date of Encounter: 01/15/18 Time of Encounter: 10:35 - Discharge Diagnosis (1) Acute renal failure (ARF) Priority: Primary Status: Suspected Qualifiers: Acute renal failure type: with acute tubular necrosis Qualified Code(s): N17.0 - Acute kidney failure with tubular necrosis (2) Near syncope Priority: Secondary Status: Acute (3) Chronic diastolic (congestive) heart failure Priority: Secondary Status: Chronic (4) Type 2 diabetes mellitus Priority: Secondary Status: Chronic Qualifiers: Diabetes mellitus retirement insulin use: without terminal superintendent use Diabetes mellitus complication status: with unspecified complications Qualified Code(s) : E11.8 - Type 2 diabetes mellitus with unspecified complications (5) Paroxysmal A-fib Priority: Secondary Status: Chronic (6) DVT prophylaxis Priority: Secondary Status: Acute (7) Gram-positive bacteremia Priority: Secondary Status: Ruled-out Hospital course: Mr. Issa is a 68 year old male Patient with history of atrial fibrillation, coronary artery disease, congestive heart failure, diabetes, hypertension, PE was hospitalized with acute kidney injury on chronic kidney disease related to diuretic use. This is the second hospitalization for this patient with the same problem. He does have underlying congestive heart failure and was previously on diuretics. He developed acute kidney injury and was hospitalized here and his diuretics were held at discharge. He then followed up with his environmental management specialist at later date and his diuretics were restarted at a lower dose. However, he again developed acute kidney injury. As such His diuretics were held and he was given IV fluids with improvement in his renal function. Nephrology has been following patient's care here. His renal function is continuing to improve. He is now stable to be discharged home. We will continue to hold his diuretics for now and arrange for follow-up as outpatient with his long term acute care registered nurse and environmental management specialist. Patient appears to be having very delicate response to diuretics with rapidly worsening renal function. Will need close monitoring when he is eventually placed back on diuretics for his heart failure. Discharge discussed with: patient, nurse, case management - Time Spent with Patient Total time spent providing and/or coordinating discharge services: Greater than 30 minutes (32 min) - Discharge Medications Home Medications: Aspirin Enteric Coated [Aspirin EC] 81 mg PO DAILY #0 04/09/15 [History] Rivaroxaban [Xarelto] 20 mg PO DAILY #0 04/09/15 [History] Albuterol Sulfate [Proair Hfa] 2 puff IH Q4H PRN 12/14/16 [History] Atorvastatin [Lipitor] 40 mg PO HS 12/14/16 [History] Gabapentin [Neurontin] 400 mg PO BID 12/14/16 [History] Pantoprazole Sodium [Protonix] 40 mg PO DAILY 12/14/16 [History] Polyethylene Glycol 3350 [MiraLAX Powder Bulk 17.9 Oz] 17 gm PO DAILY PRN [History] Sennosides/Docusate Sodium [Senna-Docusate Sodium Tablet] 1 tab PO BID PRN 12/14 [History] Tizanidine HCl [Zanaflex] 2 mg PO BID 12/14/16 [History] DULoxetine [Cymbalta] 30 mg PO DAILY 02/14/17 [History] Tamsulosin [Flomax] 0.4 mg PO BID 02/14/17 [History] Amiodarone [Cordarone] 200 mg PO DAILY 07/05/17 [History] Finasteride [Proscar] 5 mg PO DAILY 07/05/17 [History] Lidocaine 4% CRM (LMX) [Lmx 4] 1 appl TP TID 07/05/17 [History] Memantine HCl 10 mg PO BID 07/05/17 [History] Tiotropium Br/Olodaterol HCl [Stiolto Respimat Inhal [place]] 2 puff IH DAILY 11/17 [History] Cholecalciferol (D-3) [Vitamin D] 2,000 unit PO DAILY 10/04/17 [History] Fluticasone Propionate Nasal [Flonase] 2 spr NS DAILY 10/04/17 [History] Fluticasone/Salmeterol [Advair 250-50 Diskus] 1 puff IH BID 10/04/17 [History] LORazepam [Ativan] 0.5 mg PO HS 10/04/17 [History] Lubiprostone [Amitiza] 16 mcg PO DAILY 10/04/17 [History] Melatonin [Melatin] 9 mg PO HS 10/04/17 [History] Metoprolol XL (24 HR) Succ [Toprol Xl] 12.5 mg PO QPM 10/04/17 [History] Trazodone HCl 200 mg PO HS 10/04/17 [History] Lidocaine Patch [Lidoderm 5% patch] 1 patch TP DAILY 10/22/17 [History] Simethicone [Gas-X] 80 mg PO TID PRN tab.chew 10/30/17 [Rx] OxyCODONE Immed Rel [Roxicodone 10 MG] 10 mg PO TID 01/13/18 [History] Allergies/Adverse Reactions: 3 Allergy/AdvReac Type Severity Reaction Status Date / Time IVP DYE Allergy Severe Anaphylaxis Uncoded 01/12/18 18:14 Date of admission: 01/12/18 21:23 Primary care physician: Edda Rm DO Consults: 01/12/18 21:33 Consult to Physician [CONS] Routine Consulting Provider: Patel Nunes Reason for Consult: acute renal failure Time Notified: 21:34 Call Completed: Yes Discharging clinician: Ani Orozco Anticipated date of discharge: 01/15/18 - Constitutional Vitals: Temp Pulse Resp BP Pulse Ox 98.1 F 65 17 97/64 93 01/15/18 07:21 01/15/18 07:21 01/15/18 07:21 01/15/18 07:21 01/15/18 07:21 General appearance: Present: cooperative, A&O X 3, pleasant, no acute distress, answers questions appropriately - Neck Neck exam general surgery: Present: supple, trachea midline. Absent: lymphadenopathy - Respiratory Respiratory exam: Present: CTAB. Absent: accessory muscle use, rales, rhonchi, wheezes - Cardiovascular Cardiovascular exam: Present: RRR, +S1, +S2. Absent: diastolic murmur, gallop, rubs, systolic murmur - GI/Abdominal GI/Abdominal exam: Present: normal bowel sounds, soft, no peritoneal signs. Absent: distended, tenderness - Patient Status Disposition: Home, Self-Care Condition: Good Functional capacity at discharge: uses cane/walker Overall status at discharge: patient is progressing back to baseline - Discharge Instructions Instructions: Heart Failure (DC), Atrial Fibrillation (DC), Renal Failure Diet (DC) Follow Up With: Krish-Edda Banda DO [Primary Care Provider] - 01/17/18 3:45 pm (in 1- 2 weeks) Erica Witt MD [Partnered Physician] - 02/05/18 9:30 am (in 1-2 weeks Please follow up as schedule...) Dilshad Flood DO [Partnered Physician] - (in 1-2 week Vaishali from Cardio Office will call patient for an appt.) - Diet and Activity Activity: increase activity as tolerated Diet: diabetic diet, low fat, low cholesterol, low salt diet
[2018-01-15] MEDS: Budesonide/Formoterol 80/4.5 MDI IH SCH (11:07)
[2018-01-15 11:24] VITALS: BP 98/71
--- NOTE | 2018-01-15 13:21 | Physician Discharge Referral ---
Home Health/Hosp Referral Info Transfer to: Home Health Provider in Charge Post Discharge: PCP - Diagnosis (1) Acute renal failure (ARF) Priority: Primary Status: Suspected (2) Near syncope Priority: Secondary Status: Acute (3) Chronic diastolic (congestive) heart failure Priority: Secondary Status: Chronic (4) Type 2 diabetes mellitus Priority: Secondary Status: Chronic (5) Paroxysmal A-fib Priority: Secondary Status: Chronic (6) DVT prophylaxis Priority: Secondary Status: Acute (7) Gram-positive bacteremia Priority: Secondary Status: Ruled-out - Respiratory Orders Smoking Cessation: Smoking cessation has been advised. For more information, call the [place] Tobacco Quit Line at 0-284-NYFM-NOW. - Diet/Nutrition Diet/Nutrition Orders: Cardiac - Activity Activity Orders: Walker - Services Needed Following services are medically necessary services: Nursing, Physical Therapy, Occupational Therapy - Transfer Medications Home Medications: Aspirin Enteric Coated [Aspirin EC] 81 mg PO DAILY #0 04/09/15 [History] Rivaroxaban [Xarelto] 20 mg PO DAILY #0 04/09/15 [History] Albuterol Sulfate [Proair Hfa] 2 puff IH Q4H PRN 12/14/16 [History] Atorvastatin [Lipitor] 40 mg PO HS 12/14/16 [History] Gabapentin [Neurontin] 400 mg PO BID 12/14/16 [History] Pantoprazole Sodium [Protonix] 40 mg PO DAILY 12/14/16 [History] Polyethylene Glycol 3350 [MiraLAX Powder Bulk 17.9 Oz] 17 gm PO DAILY PRN [History] Sennosides/Docusate Sodium [Senna-Docusate Sodium Tablet] 1 tab PO BID PRN 12/14 [History] Tizanidine HCl [Zanaflex] 2 mg PO BID 12/14/16 [History] DULoxetine [Cymbalta] 30 mg PO DAILY 02/14/17 [History] Tamsulosin [Flomax] 0.4 mg PO BID 02/14/17 [History] Amiodarone [Cordarone] 200 mg PO DAILY 07/05/17 [History] Finasteride [Proscar] 5 mg PO DAILY 07/05/17 [History] Lidocaine 4% CRM (LMX) [Lmx 4] 1 appl TP TID 07/05/17 [History] Memantine HCl 10 mg PO BID 07/05/17 [History] Tiotropium Br/Olodaterol HCl [Stiolto Respimat Inhal [place]] 2 puff IH DAILY 11/17 [History] Cholecalciferol (D-3) [Vitamin D] 2,000 unit PO DAILY 10/04/17 [History] Fluticasone Propionate Nasal [Flonase] 2 spr NS DAILY 10/04/17 [History] Fluticasone/Salmeterol [Advair 250-50 Diskus] 1 puff IH BID 10/04/17 [History] LORazepam [Ativan] 0.5 mg PO HS 10/04/17 [History] Lubiprostone [Amitiza] 16 mcg PO DAILY 10/04/17 [History] Melatonin [Melatin] 9 mg PO HS 10/04/17 [History] Metoprolol XL (24 HR) Succ [Toprol Xl] 12.5 mg PO QPM 10/04/17 [History] Trazodone HCl 200 mg PO HS 10/04/17 [History] Lidocaine Patch [Lidoderm 5% patch] 1 patch TP DAILY 10/22/17 [History] Simethicone [Gas-X] 80 mg PO TID PRN tab.chew 10/30/17 [Rx] OxyCODONE Immed Rel [Roxicodone 10 MG] 10 mg PO TID 01/13/18 [History] Allergies/Adverse Reactions: 3 Allergy/AdvReac Type Severity Reaction Status Date / Time IVP DYE Allergy Severe Anaphylaxis Uncoded 01/12/18 18:14 Certification: Further, I certify that my clinical findings support that this patient is homebound (i.e. absences from home require considerable and taxing effort and are for medical reasons or yazidism services or infrequently or short duration when for other reasons) because: Homebound Reason: Patient requires assistance of a person or device to safely leave home Attestation: My signature below is to certify that this patient is under my care and that I, or nurse practitioner, or a physician's care assistant working with me, has a face-to -face encounter with this patient.
[2018-01-15] MEDS: Metoprolol XL (24 HR) Succ 25 MG TAB.ER.24H PO SCH (16:46)
[2018-01-15] MEDS ORDERED: *HR* Rivaroxaban 10 MG TABLET PO SCH (17:00)
--- NOTE | 2018-01-15 18:00 | Electrocardiograph Report ---
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
[2018-01-15] MEDS ORDERED: Insulin LISPRO 300 UNITS/3 ML VIAL SQ SCH (21:00)
== END 2018-01-15 18:05 | disposition home or self-care (01) | DRG 683 ==
LOC: EMEROO 18:12 → 2ANU 18:12 → SUATTDRO 21:23 → 2ANU 21:27
PROVIDERS: ADMIT Family Medicine; ATTEND Internal Medicine

== ENCOUNTER 2018-02-05 10:48 | Inpatient (IN) ==
--- NOTE | 2018-02-05 11:26 | Emergency Department Note ---
Disposition Clinical Impression: Fluid overload Qualifiers: Hypervolemia type: other Qualified Code(s): E87.79 - Other fluid overload Disposition: Admitted As Inpatient Condition: Good General Adult HPI - General Chief complaint: ED Shortness of Breath/Dyspnea Stated complaint: "Fluid Overload" from Dr. Wynn Source: patient, EMS Limitations: no limitations Nursing Notes Reviewed: Yes Vital Signs Reviewed: Yes - History of Present Illness HPI Narrative: Diabetes, congestive heart failure, COPD, atrial fibrillation, previous PE on Xarelto presenting for evaluation of generalized swelling. Gained 10 pounds swelling and one day after discharge while at correction. Patient complains of pain associated with swelling. Mild shortness of breath on laying flat. Patient is on home oxygen ever since he started to "go downhill" a couple of months ago. Pain Scale: 0 - Related Data Home Medications Medication Instructions Recorded Confirmed Aspirin Enteric Coated [Aspirin EC] 81 mg PO DAILY #0 04/09/15 02/05/18 Rivaroxaban [Xarelto] 20 mg PO DAILY #0 04/09/15 02/05/18 Albuterol Sulfate [Proair Hfa] 2 puff IH Q4H PRN 12/14/16 02/05/18 Atorvastatin [Lipitor] 40 mg PO HS 12/14/16 02/05/18 Gabapentin [Neurontin] 400 mg PO BID 12/14/16 02/05/18 Pantoprazole Sodium [Protonix] 40 mg PO DAILY 12/14/16 02/05/18 Polyethylene Glycol 3350 [MiraLAX 17 gm PO DAILY PRN 12/14/16 02/05/18 Powder Bulk 17.9 Oz] Tizanidine HCl [Zanaflex] 2 mg PO BID 12/14/16 02/05/18 DULoxetine [Cymbalta] 30 mg PO DAILY 02/14/17 02/05/18 Tamsulosin [Flomax] 0.4 mg PO BID 02/14/17 02/05/18 Amiodarone [Cordarone] 200 mg PO DAILY 07/05/17 02/05/18 Finasteride [Proscar] 5 mg PO DAILY 07/05/17 02/05/18 Memantine HCl 10 mg PO BID 07/05/17 02/05/18 Tiotropium Br/Olodaterol HCl 2 puff IH DAILY 07/07/17 02/05/18 [Stiolto Respimat Inhal [place]] Cholecalciferol (D-3) [Vitamin D] 2,000 unit PO DAILY 10/04/17 02/05/18 Fluticasone Propionate Nasal 2 spr NS DAILY 10/04/17 02/05/18 [Flonase] Fluticasone/Salmeterol [Advair 1 puff IH BID 10/04/17 02/05/18 250-50 Diskus] Lubiprostone [Amitiza] 16 mcg PO DAILY 10/04/17 02/05/18 Melatonin [Melatin] 9 mg PO HS 10/04/17 02/05/18 Metoprolol XL (24 HR) Succ [Toprol 12.5 mg PO QPM 10/04/17 02/05/18 Xl] Trazodone HCl 200 mg PO HS 10/04/17 02/05/18 Previous Rx's Medication Instructions Recorded Simethicone [Gas-X] 80 mg PO TID PRN tab.chew 10/30/17 Furosemide [Lasix] 20 mg PO DAILY PRN #15 tablet 01/28/18 LORazepam [Ativan] 0.5 mg PO HS 10 Days #10 tablet 01/28/18 Midodrine [ProAmatine] 5 mg PO BID tablet 01/28/18 OxyCODONE Immed Rel [Roxicodone 10 10 mg PO TID PRN 5 Days #15 tablet 01/28/18 MG] Allergies Allergy/AdvReac Type Severity Reaction Status Date / Time IVP DYE Allergy Severe Anaphylaxis Uncoded 01/12/18 18:14 Review of Systems: As Per HPI Constitutional: Denies: fever, chills Eyes: Denies: vision change Cardiovascular: Reports: dyspnea on exertion Respiratory: Reports: dyspnea. Denies: cough Gastrointestinal: Reports: abdominal pain (Secondary to swelling). Denies: nausea Musculoskeletal: Reports: back pain (Chronic) Integumentary: Reports: other (Swelling of the lower extremities with associated pain) Endocrine: Reports: fatigue Past Medical History - Past Medical History Medical history: Reports: arthritis, atrial fibrillation, CHF, COPD, coronary artery disease, CVA, diabetes, GERD, hyperlipidemia, hypertension, pulmonary embolus, renal disease Surgical history: Reports: cholecystectomy, herniorrhaphy, knee replacement, orthopedic, other, pacemaker/AICD Psychiatric history: Reports: anxiety, depression - Social History Smoking Status: Never smoker Smokeless Tobacco Status: No Alcohol use: Reports: none Drug use: Reports: none Physical Exam General: Well appearing, nontoxic, no acute distress Head: Normocephalic Atraumatic Eyes: PERRL, EOMI ENT: Airway patent, no stridor Neck: supple, no meningismus Chest: Lungs clear to auscultation bilateral Cardiac: Regular rate and rhythm, no murmurs, rubs or gallops Abdomen: soft, nontender, nondistended; no guarding, rebound, or tenderness to percussion Musculoskeletal: Calves symmetric, nontender, no palpable cord Skin: No rash, normal skin tone Neuro: Alert and Oriented to person, place, and time; No focal deficit - General Limitations: no limitations General appearance: alert, in no apparent distress Course - Reevaluation(s) Reevaluation #1: Pt remains stable. WIll be admitted for further fluid management. - Consultations Consultation #1: Discussed with Dr. Wynn, nephrology. Patient is well-known to her. Was seen outpatient for 35 pound weight gain over several days. They tried doubling his Lasix secondary to fluid retention. Patient was increased from 20 mg once a day to twice a day. They have been gentle with his Lasix as his kidney function fluctuated significantly between being dry and causing acute kidney injury and being fluid overloaded. He has also had issues with hypotension secondary to too much Lasix. Consultation #2: Discussed with Hospitalist. Pt accepted for admission. Vital Signs Temperature 98.1 F 02/05/18 10:57 Pulse Rate 71 02/05/18 10:57 Respiratory Rate 18 02/05/18 10:57 Blood Pressure 109/65 02/05/18 10:57 O2 Sat by Pulse Oximetry 96 02/05/18 10:57 Temperature 97.5 F L 02/05/18 18:24 Pulse Rate 66 02/05/18 18:24 Respiratory Rate 16 02/05/18 18:24 Blood Pressure 104/65 02/05/18 18:24 O2 Sat by Pulse Oximetry 96 02/05/18 18:24 Oxygen Delivery Oxygen Delivery Nasal Cannula Medical Decision Making - Lab Data Result diagrams: 02/05/18 11:07 02/05/18 11:07 Lab Results 08/06/18 08/06/18 08/06/18 Range/Units 11:07 11:07 11:07 WBC 8.1 (4.3-11.1) K/mcL RBC 4.43 (4.19-5.50) M/mcL Hgb 13.3 (12.9-16.9) g/dL Hct 40.2 (37.5-50.1) % MCV 90.7 (83.0-100.0) fL MCH 30.0 (28.0-33.3) pg MCHC 33.1 (31.6-35.5) g/dL RDW 16.8 H (11.5-14.5) % Plt Count 289 (140-400) K/mcL MPV 9.5 (9.4-12.4) fL Immature Gran % 0.6 (0-4) % Seg Neutrophils % 69.4 % Lymphocytes % 12.6 % Monocytes % 12.5 % Eosinophils % 4.4 % Basophils % 0.5 % Neutrophils # 5.6 (1.6-8.9) K/mcL Lymphocytes # 1.0 (0.6-4.6) K/mcL Monocytes # 1.0 (0.0-1.3) K/mcL Eosinophils # 0.4 (0.0-0.6) K/mcL Basophils # 0.0 (0.0-0.2) K/mcL Sodium 138 (136-145) mEq/L Potassium 3.2 L (3.5-5.1) mEq/L Chloride 98 (98-107) mEq/L Carbon Dioxide 32 H (23-29) mEq/L BUN 19 (8-23) mg/dL Creatinine 1.29 (0.70-1.30) mg/dL Est GFR ( Amer) > 60 (> 60) Est GFR (Non-Af Amer) 55 L (> 60) BUN/Creatinine Ratio 15 (6-26) Glucose 83 (70-105) mg/dL Calculated Osmolality 287 (280-300) Calcium 9.0 (8.6-10.3) mg/dL Total Bilirubin 0.4 (0.3-1.0) mg/dL Direct Bilirubin 0.1 (0.0-0.2) mg/dL Indirect Bilirubin 0.3 (0.0-1.2) mg/dL AST 22 (13-39) Units/L ALT 23 (7-52) Units/L Alkaline Phosphatase 81 (34-104) Units/L Troponin I < 0.03 (< 0.04) ng/mL B-Natriuretic Peptide 101 H (Less than 100) pg/mL Serum Total Protein 6.4 (6.4-8.9) g/dL Albumin 3.8 (3.5-5.7) g/dL Globulin 2.6 (2.4-3.5) g/dL Albumin/Globulin Ratio 1.5 (1.1-2.2)
[2018-02-05 11:39] LABS: Basophils % 0.5 %; Eosinophils # 0.4 K/mcL (0.0-0.6); Eosinophils % 4.4 %; Hematocrit 40.2 % (37.5-50.1); Hemoglobin 13.3 g/dL (12.9-16.9); Immature Granulocytes % 0.6 % (0-4); Lymphocytes % 12.6 %; Mean Corpuscular HGB Conc 33.1 g/dL (31.6-35.5); Mean Corpuscular Volume 90.7 fL (83.0-100.0); Mean Platelet Volume 9.5 fL (9.4-12.4); Monocytes % 12.5 %; Neutrophils # 5.6 K/mcL (1.6-8.9); Platelet Count 289 K/mcL (140-400); Red Blood Count 4.43 M/mcL (4.19-5.50); Red Cell Distribution Width 16.8 % (11.5-14.5); Segmented Neutrophils % 69.4 %
[2018-02-05 11:59] LABS: Alanine Aminotransferase 23 Units/L (7-52); Albumin 3.8 g/dL (3.5-5.7); Albumin/Globulin Ratio 1.5 (1.1-2.2); Alkaline Phosphatase 81 Units/L (34-104); Aspartate Amino Transferase 22 Units/L (13-39); BUN/Creatinine Ratio 15 (6-26); Bilirubin,Direct 0.1 mg/dL (0.0-0.2); Bilirubin,Indirect 0.3 mg/dL (0.0-1.2); Bilirubin,Total 0.4 mg/dL (0.3-1.0); Blood Urea Nitrogen 19 mg/dL (8-23); Carbon Dioxide 32 mEq/L (23-29); Chloride 98 mEq/L (98-107); Globulin 2.6 g/dL (2.4-3.5); Glucose 83 mg/dL (70-105); Osmolality,Calculated 287 (280-300); Potassium 3.2 mEq/L (3.5-5.1); Sodium 138 mEq/L (136-145); Total Protein 6.4 g/dL (6.4-8.9); Troponin I < 0.03 ng/mL (< 0.04); eGFR For Non-African Americans 55 (> 60)
[2018-02-05] MEDS ORDERED: Furosemide 20 MG/2 ML VIAL IVP ONE (12:10)
[2018-02-05 14:28] LABS: Bilirubin,Urine Negative (Negative); Blood,Urine Negative (Negative); Clarity,Urine Clear (Clear); Color,Urine Yellow (Yellow); Glucose,Urine (UA) Normal (Normal); Ketones,Urine Negative (Negative); Leukocyte Esterase,Urine Negative (Negative); Nitrite,Urine Negative (Negative); PH,Urine 6.5 pH Units (5.0-8.0); Protein,Urine Negative (Neg-Trace); Specific Gravity,Urine 1.018 (1.010-1.025); Urobilinogen,Urine Normal (Normal)
[2018-02-05] MEDS ORDERED: Acetaminophen 325 MG TABLET PO PRN (15:02)
[2018-02-05] MEDS ORDERED: Naloxone 0.4 MG/ML INJ IVP PRN (15:02)
[2018-02-05] MEDS ORDERED: D5% in Water 1,000 ML IVC PRN (15:41)
[2018-02-05] MEDS ORDERED: Dextrose Gel 15 GM/37.5 ML TUBE PO PRN ×2 (15:41)
[2018-02-05] MEDS ORDERED: *HR* Dextrose 50 % in Water (Syg) 50 ML SYRINGE IVP PRN (15:41)
--- NOTE | 2018-02-05 15:48 | Internal Med History&Physical ---
<Salvador Castro - Last Filed: 02/05/18 19:22> Date of Encounter: 02/05/18 Time of Encounter: 13:15 Internal Medicine - H&P: HPI Chief complaint: SOB/Dyspnea Admitted From: Emergency Dept Plans for Post Hospital Care: Home History of present illness: Mr. 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 Patient reports previous occurrences but never this bad. Patient reports bilateral pedal edema, increase in abdominal girth, and difficulty w/ambulation but denies recent illness, fever, chills, nausea, vomiting, changes in vision, headache, chest pain, cough, chest congestion, abdominal pain, diarrhea, constipation, dizziness , lightheadedness, numbness, tingling, pre-syncope, or syncope. Past Med Surg Social Fam HX - Past Medical History Source: patient, old records reviewed, obtained from family Medical history: arthritis, atrial fibrillation, CHF, COPD, coronary artery disease, CVA (x3 w/last one in April 2017 resulting in weakness of right upper extremity.), diabetes, GERD, hyperlipidemia, hypertension, pulmonary embolus (20 years ago - Pt. now on Xarelto), renal disease Additional medical history: Pacemaker, emphysema Psychiatric history: anxiety, depression - Past Surgical History Surgical History: cholecystectomy, herniorrhaphy, knee replacement, orthopedic, other, pacemaker/AICD Additional surgical history: Right knee replacement. Cardiac Ablasion - Social History Smoking Status: Former smoker Packs per day: 1 PPD - Reports quitting 7 years ago Smokeless Tobacco Status: No Alcohol use: none Drug use: none Current living situation: Home Activity Level: Independent ambulation Recent Out of Country Travel Within the Last 8 Weeks: No Exposure or Possible Exposure to Illness During Travel: No - Family History Father Adopted: No Race: Family Member Ethnicity: Non- Living Status: Age at : 42 Cause of : Leukemia Hx Family Cancer: Yes (Leukemia) Brother Race: Family Member Ethnicity: Non- Living Status: Still Living Hx Family Musculoskeletal Disorders: Yes (Fell 40 feet to the ground) Sister Race: Family Member Ethnicity: Non- Living Status: Still Living Hx Family Medical Disorders: No Mother Adopted: No Race: Family Member Ethnicity: Non- Twin of Family Member: Yes Living Status: Age at : 87 Cause of : Kidney failure Hx Family Cardiac Disorders: Yes (CHF, Afib) Hx Family Cancer: Yes (Leukemia (father)) Hx Family Genitourinary Disorders: Yes (CKD) Hx Family Neuromuscular Disorders: No Hx Family Neurologic Disorders: No Hx Family HEENT Disorders: No Internal Medicine - H&P: Meds Aspirin Enteric Coated [Aspirin EC] 81 mg PO DAILY #0 04/09/15 [History] Rivaroxaban [Xarelto] 20 mg PO DAILY #0 04/09/15 [History] Albuterol Sulfate [Proair Hfa] 2 puff IH Q4H PRN 12/14/16 [History] Atorvastatin [Lipitor] 40 mg PO HS 12/14/16 [History] Gabapentin [Neurontin] 400 mg PO BID 12/14/16 [History] Pantoprazole Sodium [Protonix] 40 mg PO DAILY 12/14/16 [History] Polyethylene Glycol 3350 [MiraLAX Powder Bulk 17.9 Oz] 17 gm PO DAILY PRN [History] Tizanidine HCl [Zanaflex] 2 mg PO BID 12/14/16 [History] DULoxetine [Cymbalta] 30 mg PO DAILY 02/14/17 [History] Tamsulosin [Flomax] 0.4 mg PO BID 02/14/17 [History] Amiodarone [Cordarone] 200 mg PO DAILY 07/05/17 [History] Finasteride [Proscar] 5 mg PO DAILY 07/05/17 [History] Memantine HCl 10 mg PO BID 07/05/17 [History] Tiotropium Br/Olodaterol HCl [Stiolto Respimat Inhal [place]] 2 puff IH DAILY 11/17 [History] Cholecalciferol (D-3) [Vitamin D] 2,000 unit PO DAILY 10/04/17 [History] Fluticasone Propionate Nasal [Flonase] 2 spr NS DAILY 10/04/17 [History] Fluticasone/Salmeterol [Advair 250-50 Diskus] 1 puff IH BID 10/04/17 [History] Lubiprostone [Amitiza] 16 mcg PO DAILY 10/04/17 [History] Melatonin [Melatin] 9 mg PO HS 10/04/17 [History] Metoprolol XL (24 HR) Succ [Toprol Xl] 12.5 mg PO QPM 10/04/17 [History] Trazodone HCl 200 mg PO HS 10/04/17 [History] Simethicone [Gas-X] 80 mg PO TID PRN tab.chew 10/30/17 [Rx] Furosemide [Lasix] 20 mg PO DAILY PRN #15 tablet 01/28/18 [Rx] LORazepam [Ativan] 0.5 mg PO HS 10 Days #10 tablet 01/28/18 [Rx] Midodrine [ProAmatine] 5 mg PO BID tablet 01/28/18 [Rx] OxyCODONE Immed Rel [Roxicodone 10 MG] 10 mg PO TID PRN 5 Days #15 tablet [Rx] 3 Allergy/AdvReac Type Severity Reaction Status Date / Time IVP DYE Allergy Severe Anaphylaxis Uncoded 01/12/18 18:14 All Systems PM: A 10-system review of systems was performed and is negative for pertinent findings except as documented above in the HPI. - Constitutional Constitutional: no chills, no fever(s), no night sweats - EENT Eyes: no change in vision, no discharge, no pain, no photophobia Ears: no ear discharge, no ear pain, no tinnitus Nose, mouth and throat: no dysphagia, no nasal discharge, no neck pain, no sore throat - Breasts Breasts: as per HPI - Cardiovascular Cardiovascular ROS IM: as per HPI, dyspnea, dyspnea on exertion, edema ( Bilateral pedal edema and abdominal size), orthopnea, no chest pain, no diaphoresis, no lightheadedness, no palpitations, no syncope - Respiratory Respiratory: as per HPI, dyspnea, dyspnea on exertion, no cough, no wheezing, no excessive phlegm production - Gastrointestinal Gastrointestinal: no abdominal pain, no diarrhea, no hematemesis, no hematochezia, no melena, no nausea, no vomiting - Genitourinary Genitourinary ROS male: as per HPI - Musculoskeletal Musculoskeletal ROS IM: no numbness, no tingling - Integumentary Integumentary IM: no rash, no unusual bruising - Neurological Neurological ROS: no confusion, no convulsions, no focal weakness, no numbness, no tingling, no tremor(s) - Psychiatric Psychiatric: as per HPI, anxiety, depression - Endocrine Endocrine IM: as per HPI - Hematologic/Lymphatic Hematologic/Lymphatic: no easy bruising - Allergic/Immunologic Allergic/Immunologic: as per HPI - Constitutional Vitals: Temp Pulse Resp BP Pulse Ox 98.1 F 60 18 96/63 97 02/05/18 10:57 02/05/18 14:59 02/05/18 14:59 02/05/18 14:59 02/05/18 14:59 General appearance: Present: cooperative, mild distress (SOB), A&O X 3, pleasant , obese, answers questions appropriately - Head Head exam: Present: atraumatic, normocephalic - ENT ENT exam: Present: normal exam - Neck Neck exam general surgery: Present: normal inspection, supple, trachea midline. Absent: lymphadenopathy - Respiratory Respiratory exam: Present: CTAB. Absent: accessory muscle use, rales, rhonchi, wheezes - Cardiovascular Cardiovascular exam: Present: RRR, +S1, +S2. Absent: diastolic murmur, gallop, rubs, systolic murmur - GI/Abdominal GI/Abdominal exam: Present: normal bowel sounds, soft, no peritoneal signs. Absent: distended, tenderness - Rectal Rectal exam: Present: deferred - Additional comments: exam deferred. - Extremities Exam Extremities exam: Present: pedal edema (2+ pitting edema bilaterally), warm, radial pulses palpable and symmetrical. Absent: calf tenderness, cyanotic - Back Exam Back exam: Present: normal inspection - Neurological Exam Neurological exam: Present: alert, CN II-XII intact, oriented X3, no focal deficits. Absent: pronater drift, facial droop, speech deficit Additional comments: Pt. has reduced strength in RUE/shoulder d/t residual effect of CVA in April 2017. - Psychiatric Psychiatric exam: Present: normal affect, normal mood - Skin Skin exam: Present: dry, intact Internal Med - H&P Results - Labs CBC & Chem 7: 02/05/18 11:07 02/05/18 11:07 Labs: Urine 02/05/18 Range/Units 14:00 Urine Color Yellow (Yellow) Urine Clarity Clear (Clear) Urine pH 6.5 (5.0-8.0) pH Units Ur Specific [place] 1.018 (1.010-1.025) Urine Protein Negative (Neg-Trace) mg/dL Urine Glucose (UA) Normal (Normal) mg/dL - EKG Data EKG shows normal: sinus rhythm - EKG Data Prior EKG available for review: yes EKG comments: 02/05/18 15:55 EKG dated 01/20/18 shows electronic atrial pacemaker, inferior injury, baseline artifact. EKG dated 02/05/18 shows sinus rhythm with nonspecific T-wave abnormality. - Diagnostic Studies Chest x-ray Additional comments: Impressions Chest X-Ray 02/05/18 11:22 IMPRESSION: No acute process. Stable right midlung zone atelectatic change D/ / Asif Ríos MD / Asif Ríos MD Interpreting Provider: Asif Ríos MD - Assessment and plan (1) Acute on chronic diastolic (congestive) heart failure Current Visit: Yes Status: Acute Assessment and plan: Acute on chronic diastolic CHF. BNP 101 on admission, but on exam pt. has 2+ pitting edema in LEs and increase in abdominal girth. Pt. reports 35 pound weight gain over the past week, SOB, dyspnea, and orthopnea for the same time period. Patient reports previous occurrences but never this bad. Echocardiogram ordered. Nephrology consult ordered and discussed with Dr. Bray w/recommendation to hold PO lasix and replace w/40 mg IVP lasix BID and replacement of potassium of 20 mEq PO BID w/potassium re-check at 04:00 in a.m. I appreciate the consult and recommendations as always. Monitor I&O, daily weight, and f/u labs. Continuous cardiac telemetry. Supplemental O2 with titration and SPO2 monitoring. Patient discussed with Dr. Alexander who is in agreement with plan of care. Patient is high risk for further morbidity and respiratory/cardiac complications due to current acute on chronic diastolic CHF exacerbation, increase in weight of 35 pounds over one week, current SOB/Dyspnea /Orthopnea, hx of CAD/HTN/HLD/DM, hx of tobacco abuse, and risk factors. Observation. (2) Hypokalemia Current Visit: Yes Status: Acute Assessment and plan: Acute hypokalemia with potassium level 3.2 on admission. Will replace 20 mEq PO BID and check potassium at 04:00 in a.m. Continuous cardiac telemetry. Monitor patient and follow-up labs. (3) Acute kidney injury Current Visit: Yes Status: Acute Assessment and plan: AG on admission w/GFR of 55 and creatinine of 1.29 which is improved from patient's previous baseline in December. Nephrology consult ordered and discussed with Dr. Bray w/recommendation to hold PO lasix and replace w/40 mg IVP lasix BID and replacement of potassium of 20 mEq PO BID w/potassium re-check at 04:00 in a.m. I appreciate the consult and recommendations as always. Monitor I& O, daily weight, and f/u labs. (4) Fluid overload Current Visit: Yes Status: Acute Assessment and plan: Acute fluid overload that pt. reports as 35 lb. weight gain in 1 week. 2+ bilateral pitting edema in LEs and increase in abdominal girth. Pt. takes 20 mg PO lasix daily. Will hold PO and change to IVP lasix 40 mg BID w/ supplementation of potassium per Nephrology. Monitor I&O and daily weight. 1.5L daily fluid restriction. Qualifiers: Hypervolemia type: other Qualified Code(s): E87.79 - Other fluid overload (5) COPD (chronic obstructive pulmonary disease) Current Visit: Yes Status: Chronic Assessment and plan: Hx of chronic COPD. Stable. Supplemental O2 with titration and SPO2 monitoring. Xopenex IH due to patient's hx of atrial fibrillation. Continue patients inhalers. Qualifiers: COPD type: unspecified COPD Qualified Code(s): J44.9 - Chronic obstructive pulmonary disease, unspecified (6) CAD (coronary artery disease) Current Visit: Yes Status: Chronic Assessment and plan: Hx of chronic CAD. Continuous cardiac telemetry. Continue patient's Xarelto, amiodarone, Lipitor, Midodrine, and metoprolol. Qualifiers: Coronary Disease-Associated Artery/Lesion type: unspecified vessel or lesion type [place] vs. transplanted heart: [place] heart Associated angina: angina presence unspecified Qualified Code(s): I25.10 - Atherosclerotic heart disease of [place] coronary artery without angina pectoris (7) HLD (hyperlipidemia) Current Visit: Yes Status: Chronic Assessment and plan: Hx of chronic HLD. Lipid panel in a.m. labs. Continue patient's Lipitor. Qualifiers: Hyperlipidemia type: pure hypercholesterolemia Qualified Code(s): E78.00 - Pure hypercholesterolemia, unspecified; E78.0 - Pure hypercholesterolemia (8) Diabetes mellitus Current Visit: Yes Status: Chronic Assessment and plan: Hx of chronic diabetes not controlled with insulin. Patient does not currently take oral antihyperglycemic medication. Add low-dose correction insulin sliding scale with hypoglycemic protocol. BG checks before meals at bedtime. A1c in a.m. labs. Qualifiers: Diabetes mellitus type: type 2 Diabetes mellitus usp insulin use: without terminologist use Diabetes mellitus complication status: with neurologic complications Qualified Code(s): E11.40 - Type 2 diabetes mellitus with diabetic neuropathy, unspecified (9) Atrial fibrillation Current Visit: Yes Status: Chronic Assessment and plan: Hx of paroxysmal atrial fibrillation. Continuous cardiac telemetry. Continue patient's amiodarone and Xarelto. Qualifiers: Atrial fibrillation type: paroxysmal Qualified Code(s): I48.0 - Paroxysmal atrial fibrillation (10) DVT prophylaxis Current Visit: Yes Status: Acute Assessment and plan: Continue patient's Xarelto for DVT prophylaxis. Monitor patient for signs of bleeding. (11) HTN (hypertension) Current Visit: Yes Status: Chronic Assessment and plan: Hx of chronic HTN. Monitor patient vital signs. Continue patient's metoprolol and Midodrine. Qualifiers: Hypertension type: essential hypertension Qualified Code(s): I10 - Essential (primary) hypertension - Time Spent With Patient Total time spent is greater than 50% in coordination of care (as documented) at patient's floor/unit and/or counseling patient: Greater than 35 minutes <Hung Alexander - Last Filed: 02/05/18 20:22> Date of Encounter: 02/05/18 Internal Medicine - H&P: HPI History of present illness: Mr. Issa is a 68 year old male All Systems PM: A 10-system review of systems was performed and is negative for pertinent findings except as documented above in the HPI. - Constitutional Vitals: Temp Pulse Resp BP Pulse Ox 97.5 F L 66 16 104/65 96 02/05/18 18:24 02/05/18 18:24 02/05/18 18:24 02/05/18 18:24 02/05/18 18:24 Internal Med - H&P Results - Labs CBC & Chem 7: 02/05/18 11:07 02/05/18 11:07 Labs: Urine 02/05/18 Range/Units 14:00 Urine Color Yellow (Yellow) Urine Clarity Clear (Clear) Urine pH 6.5 (5.0-8.0) pH Units Ur Specific [place] 1.018 (1.010-1.025) Urine Protein Negative (Neg-Trace) mg/dL Urine Glucose (UA) Normal (Normal) mg/dL - Attending Attestation Discussed with DAVID and agree with assessment and plan as above Patient was admitted for volume overload Nephrology consulted and appreciate recommendations - Assessment and plan (1) Fluid overload Current Visit: Yes Status: Acute Qualifiers: Hypervolemia type: other Qualified Code(s): E87.79 - Other fluid overload (2) Acute kidney injury Current Visit: Yes Status: Acute (3) Acute on chronic diastolic (congestive) heart failure Current Visit: Yes Status: Acute (4) DVT prophylaxis Current Visit: Yes Status: Acute (5) Hypokalemia Current Visit: Yes Status: Acute (6) Atrial fibrillation Current Visit: Yes Status: Chronic Qualifiers: Atrial fibrillation type: paroxysmal Qualified Code(s): I48.0 - Paroxysmal atrial fibrillation (7) Diabetes mellitus Current Visit: Yes Status: Chronic Qualifiers: Diabetes mellitus type: type 2 Diabetes mellitus usp insulin use: without terminologist use Diabetes mellitus complication status: with neurologic complications Qualified Code(s): E11.40 - Type 2 diabetes mellitus with diabetic neuropathy, unspecified (8) COPD (chronic obstructive pulmonary disease) Current Visit: Yes Status: Chronic Qualifiers: COPD type: unspecified COPD Qualified Code(s): J44.9 - Chronic obstructive pulmonary disease, unspecified (9) CAD (coronary artery disease) Current Visit: Yes Status: Chronic Qualifiers: Coronary Disease-Associated Artery/Lesion type: unspecified vessel or lesion type [place] vs. transplanted heart: [place] heart Associated angina: angina presence unspecified Qualified Code(s): I25.10 - Atherosclerotic heart disease of [place] coronary artery without angina pectoris (10) HLD (hyperlipidemia) Current Visit: Yes Status: Chronic Qualifiers: Hyperlipidemia type: pure hypercholesterolemia Qualified Code(s): E78.00 - Pure hypercholesterolemia, unspecified; E78.0 - Pure hypercholesterolemia (11) HTN (hypertension) Current Visit: Yes Status: Chronic Qualifiers: Hypertension type: essential hypertension Qualified Code(s): I10 - Essential (primary) hypertension - Time Spent With Patient Total time spent is greater than 50% in coordination of care (as documented) at patient's floor/unit and/or counseling patient:
[2018-02-05] MEDS: Insulin LISPRO 300 UNITS/3 ML VIAL SQ SCH ×2 (18:11→21:55)
[2018-02-05] MEDS ORDERED: Simethicone 80 MG TAB.CHEW PO PRN (21:30)
[2018-02-05] MEDS: traZODone 50 MG TABLET PO SCH (22:24)
[2018-02-05] MEDS: Melatonin 3 MG TABLET PO SCH (22:24)
[2018-02-05] MEDS: Furosemide 40 MG/4 ML VIAL IVP SCH (22:25)
[2018-02-05] MEDS: Levalbuterol Neb 1.25 MG/3 ML IH SCH (22:26)
[2018-02-05] MEDS: *HR* OxyCODONE Immed Rel 5 MG TABLET PO PRN (22:37)
[2018-02-06] MEDS: Levalbuterol Neb 1.25 MG/3 ML IH SCH ×4 (03:47→22:50)
[2018-02-06] MEDS: *HR* OxyCODONE Immed Rel 5 MG TABLET PO PRN ×2 (04:22→20:58)
[2018-02-06 04:57] LABS: Basophils # 0.1 K/mcL (0.0-0.2); Basophils % 0.7 %; Eosinophils # 0.4 K/mcL (0.0-0.6); Eosinophils % 5.2 %; Hematocrit 34.1 % (37.5-50.1); Immature Granulocytes % 0.4 % (0-4); Lymphocytes # 1.5 K/mcL (0.6-4.6); Lymphocytes % 19.9 %; Mean Corpuscular HGB Conc 32.6 g/dL (31.6-35.5); Mean Corpuscular Hemoglobin 28.9 pg (28.0-33.3); Mean Corpuscular Volume 88.8 fL (83.0-100.0); Mean Platelet Volume 9.3 fL (9.4-12.4); Monocytes # 0.8 K/mcL (0.0-1.3); Monocytes % 10.7 %; Neutrophils # 4.7 K/mcL (1.6-8.9); Platelet Count 250 K/mcL (140-400); Red Blood Count 3.84 M/mcL (4.19-5.50); Red Cell Distribution Width 17.1 % (11.5-14.5); Segmented Neutrophils % 63.1 %
[2018-02-06 05:03] LABS: Hemoglobin 11.1 g/dL (12.9-16.9)
[2018-02-06 05:15] LABS: Alanine Aminotransferase 21 Units/L (7-52); Albumin 3.3 g/dL (3.5-5.7); Albumin/Globulin Ratio 1.4 (1.1-2.2); Alkaline Phosphatase 84 Units/L (34-104); Aspartate Amino Transferase 17 Units/L (13-39); BUN/Creatinine Ratio 18 (6-26); Bilirubin,Total 0.4 mg/dL (0.3-1.0); Blood Urea Nitrogen 20 mg/dL (8-23); Calcium 8.5 mg/dL (8.6-10.3); Carbon Dioxide 31 mEq/L (23-29); Chloride 100 mEq/L (98-107); Chol/HDL Ratio 3.7 (0-4.9); Cholesterol 110 mg/dL (< 200); Globulin 2.4 g/dL (2.4-3.5); Glucose 103 mg/dL (70-105); HDL Cholesterol 30 mg/dL (40-59); LDL Cholesterol,Calculated 61 mg/dL (0-99); Magnesium 1.5 mg/dL (1.6-2.6); Osmolality,Calculated 291 (280-300); Phosphorous 2.8 mg/dL (2.7-4.5); Potassium 3.3 mEq/L (3.5-5.1); Sodium 139 mEq/L (136-145); Total Protein 5.7 g/dL (6.4-8.9); Triglycerides 94 mg/dL (< 150); eGFR For Non-African Americans > 60 (> 60)
[2018-02-06 06:46] LABS: Estimated Average Glucose 140 mg/dl; Hemoglobin A1C 6.5 %
--- NOTE | 2018-02-06 07:05 | Electrocardiograph Report ---
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
[2018-02-06] MEDS ORDERED: Perflutren Lipid Microsphere 1.3 ML in 0.9 % Sodium Chloride 8.7 ML IVP ONE ×2 (08:06→09:00)
[2018-02-06] MEDS: Finasteride 5 MG TABLET PO SCH (10:24)
[2018-02-06] MEDS: Cholecalciferol (D-3) 1,000 UNIT TABLET PO SCH (10:24)
[2018-02-06] MEDS: Gabapentin 400 MG CAPSULE PO SCH ×2 (10:24→21:12)
[2018-02-06] MEDS: Aspirin Enteric Coated 81 MG Tablet PO SCH (10:26)
[2018-02-06] MEDS: *HR* Rivaroxaban 10 MG TABLET PO SCH (10:26)
[2018-02-06] MEDS: Furosemide 40 MG/4 ML VIAL IVP SCH ×2 (10:26→18:13)
[2018-02-06] MEDS: tiZANidine 4 MG TABLET PO SCH ×2 (10:28→21:12)
[2018-02-06] MEDS: *HR* Amiodarone 200 MG TABLET PO SCH (10:28)
[2018-02-06] MEDS: Insulin LISPRO 300 UNITS/3 ML VIAL SQ SCH ×4 (10:28→21:15)
[2018-02-06] MEDS: LUBIPROSTONE PO SCH (10:29)
[2018-02-06] MEDS: Fluticasone Propionate Nasal 50 MCG/SPRAY BOTTLE NS SCH (10:29)
--- NOTE | 2018-02-06 10:29 | Nephrology Consult Note ---
Date of Encounter: 02/06/18 Time of Encounter: 10:25 Assessment and Plan (1) Fluid overload Current Visit: Yes Status: Acute Continue Lasix 40mg IV BID Continue strict I/Os UOP 1050ml Continue fluid restriction of 1.5 liters/day Continue low salt diet Qualifiers: Hypervolemia type: other Qualified Code(s): E87.79 - Other fluid overload (2) Hypokalemia Current Visit: Yes Status: Acute K+ 3.3 Continue potassium chloirde 20meq p.o BID (3) Acute on chronic diastolic (congestive) heart failure Current Visit: Yes Status: Acute per primary team History of Present Illness - Reason for Consult Consult date: 02/06/18 - Chief Complaint fluid overload, AG - History of Present Illness Mr. sIsa is a 68 year old male w/PMH of arthritis, Afib, CHF, COPD, CAD, CVA 3 with 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 resulting in weakness of the right upper extremity, diabetes, GERD, HLD, HTN, PE 20 years ago, and CKD (follows with Dr Tianna Witt) who presents from the ED with chief complaint of 35 pound weight gain over the past week, SOB, dyspnea, and orthopnea for the same time period. Patient reports previous occurrences but never this bad. Patient reports bilateral pedal edema, increase in abdominal girth, and difficulty w/ ambulation. Nephrology has been consulted to help with diuresis. Dr Bray gave orders over the night to increase Lasix to 40mg IV BID and replace K+ 20mEq BID. Past Med Surg Social Fam HX - Past Medical History Medical history: arthritis, atrial fibrillation, CHF, COPD, coronary artery disease, CVA, diabetes, GERD, hyperlipidemia, hypertension, pulmonary embolus, renal disease Additional medical history: Pacemaker, emphysema Psychiatric history: anxiety, depression - Past Surgical History Surgical History: cholecystectomy, herniorrhaphy, knee replacement, orthopedic, other, pacemaker/AICD Additional surgical history: Right knee replacement. Cardiac Ablasion - Social History Smoking Status: Never smoker Packs per day: 1 PPD - Reports quitting 7 years ago Smokeless Tobacco Status: No Alcohol use: none Drug use: none - Family History Father Adopted: No Race: Family Member Ethnicity: Non- Living Status: Age at : 42 Cause of : Leukemia Hx Family Cardiac Disorders: No Hx Family Respiratory Disorders: No Hx Family Cancer: Yes (Leukemia) Hx Family GI Disorders: No Hx Family Endocrine Disorder: No Hx Family Neuromuscular Disorders: No Hx Family Neurologic Disorders: No Hx Family HEENT Disorders: No Hx Family Autoimmune Disorders: No Brother Race: Family Member Ethnicity: Non- Living Status: Still Living Hx Family Musculoskeletal Disorders: Yes (Fell 40 feet to the ground) Sister Race: Family Member Ethnicity: Non- Living Status: Still Living Hx Family Medical Disorders: No Mother Adopted: No Race: Family Member Ethnicity: Non- Twin of Family Member: Yes Living Status: Age at : 87 Cause of : Kidney failure Hx Family Cardiac Disorders: Yes (CHF, Afib) Hx Family Respiratory Disorders: No Hx Family Cancer: Yes (Leukemia (father)) Hx Family GI Disorders: No Hx Family Genitourinary Disorders: Yes (CKD) Hx Family Endocrine Disorder: No Hx Family Neuromuscular Disorders: No Hx Family Neurologic Disorders: No Hx Family HEENT Disorders: No Hx Family Autoimmune Disorders: Yes (arthritis) Medications and Allergies Aspirin Enteric Coated [Aspirin EC] 81 mg PO DAILY #0 04/09/15 [History] Rivaroxaban [Xarelto] 20 mg PO DAILY #0 04/09/15 [History] Albuterol Sulfate [Proair Hfa] 2 puff IH Q4H PRN 12/14/16 [History] Atorvastatin [Lipitor] 40 mg PO HS 12/14/16 [History] Gabapentin [Neurontin] 400 mg PO BID 12/14/16 [History] Pantoprazole Sodium [Protonix] 40 mg PO DAILY 12/14/16 [History] Polyethylene Glycol 3350 [MiraLAX Powder Bulk 17.9 Oz] 17 gm PO DAILY PRN [History] Tizanidine HCl [Zanaflex] 2 mg PO BID 12/14/16 [History] DULoxetine [Cymbalta] 30 mg PO DAILY 02/14/17 [History] Tamsulosin [Flomax] 0.4 mg PO BID 02/14/17 [History] Amiodarone [Cordarone] 200 mg PO DAILY 07/05/17 [History] Finasteride [Proscar] 5 mg PO DAILY 07/05/17 [History] Memantine HCl 10 mg PO BID 07/05/17 [History] Tiotropium Br/Olodaterol HCl [Stiolto Respimat Inhal [place]] 2 puff IH DAILY 11/17 [History] Cholecalciferol (D-3) [Vitamin D] 2,000 unit PO DAILY 10/04/17 [History] Fluticasone Propionate Nasal [Flonase] 2 spr NS DAILY 10/04/17 [History] Fluticasone/Salmeterol [Advair 250-50 Diskus] 1 puff IH BID 10/04/17 [History] Lubiprostone [Amitiza] 16 mcg PO DAILY 10/04/17 [History] Melatonin [Melatin] 9 mg PO HS 10/04/17 [History] Metoprolol XL (24 HR) Succ [Toprol Xl] 12.5 mg PO QPM 10/04/17 [History] Trazodone HCl 200 mg PO HS 10/04/17 [History] Simethicone [Gas-X] 80 mg PO TID PRN tab.chew 10/30/17 [Rx] Furosemide [Lasix] 20 mg PO DAILY PRN #15 tablet 01/28/18 [Rx] LORazepam [Ativan] 0.5 mg PO HS 10 Days #10 tablet 01/28/18 [Rx] Midodrine [ProAmatine] 5 mg PO BID tablet 01/28/18 [Rx] OxyCODONE Immed Rel [Roxicodone 10 MG] 10 mg PO TID PRN 5 Days #15 tablet [Rx] 3 Allergy/AdvReac Type Severity Reaction Status Date / Time IVP DYE Allergy Severe Anaphylaxis Uncoded 01/12/18 18:14 Review of Systems All Systems: reviewed and no additional remarkable complaints except as stated Constitutional: malaise, weakness, weight gain, no fever(s) Cardiovascular: dyspnea, dyspnea on exertion, leg edema, no chest pain Respiratory: dyspnea, dyspnea on exertion Gastrointestinal: bloating Neurological: weakness, no behavioral changes Exam - Vital Signs Vital signs: Initial Vital Signs Temp Pulse Resp BP Pulse Ox 98.1 F 71 18 109/65 96 02/05/18 10:57 02/05/18 10:57 02/05/18 10:57 02/05/18 10:57 02/05/18 10:57 Vital Signs - Last 8 Hours Temp Pulse Resp BP Pulse Ox 02/06/18 06:56 97.9 F 68 15 95/62 93 02/06/18 03:47 18 94 02/06/18 03:43 98.4 F 60 15 111/64 94 Intake and Output 02/05/18 02/06/18 02/06/18 23:59 07:59 15:59 Intake Total 760 / 760 Output Total 1050 / 1050 Balance -1050 / -1050 760 / 760 Intake: Oral 760 / 760 Output: Urine 1050 / 1050 Other: Meal water pitcher Stool Size Moderate Stool Consistency soft formed Stool Characteristics Normal for Patient Stool Color Brown Weight 132.6 kg Blood Glucose* 163 127 - General Appearance General appearance: well-developed, well-nourished EENT: ATNC, mucous membranes moist, hearing intact, vision intact Neck: supple Respiratory: clear Cardiology: edema, normal S1, normal S2 Gastrointestinal: no tenderness, no guarding, distended Integumentary: warm and dry Neurologic: alert and oriented x3 Psychiatric: mood/affect appropriate, cooperative Results - Lab Results 02/06/18 04:42 02/06/18 04:42 Most recent lab results Calcium 8.5 mg/dL (8.6-10.3) L 02/06/18 04:42 Phosphorus 2.8 mg/dL (2.7-4.5) 02/06/18 04:42 Magnesium 1.5 mg/dL (1.6-2.6) L 02/06/18 04:42 Consult Discharge Plan - Plan Referrals: Krish-Edda Banda DO [Primary Care Provider] -
[2018-02-06] MEDS: Budesonide/Formoterol 80/4.5 MDI IH SCH ×2 (11:12→22:51)
[2018-02-06] MEDS: (Stiolto Respimat Inhal) IH SCH (11:12)
--- NOTE | 2018-02-06 11:50 | Internal Med Progress Note ---
Hospitalist Progress Note - Encounter Date of Encounter: 02/06/18 Time of Encounter: 11:46 - Subjective Interval History: pt s/o generalized weakness, he also reported swelling lag and abd bloating. - Exam Vitals: Temp Pulse Resp BP Pulse Ox 97.9 F 79 16 129/83 94 02/06/18 11:02 02/06/18 11:02 02/06/18 11:15 02/06/18 11:02 02/06/18 11:15 Exam: PHYSICAL EXAMINATION: GENERAL APPEARANCE: The patient is alert, oriented and in no acute distress. HEENT: Head is normocephalic. The sinuses are nontender. Pupils are equal and reactive. The nares are patent. Oropharynx clear without lesions. NECK: Supple without lymphadenopathy. HEART: Regular rate and rhythm. LUNGS: No crackles or wheezes are heard. ABDOMEN: Soft, nontender, nondistended with good bowel sounds heard. Inguinal area is normal. EXTREMITIES: 3+ pitting edema BLE. NEUROLOGICAL: Gross nonfocal. SKIN: Warm and dry without any rash. - Assessment and Plan (1) Fluid overload Current Visit: Yes Status: Acute Assessment and Plan: 68 year old male with past medical history of diastolic congestive heart failure presented with weight gain. He reported 35 pound weight gain within 1 week. He also noticed swelling Lasix and increased abdominal size. Patient is clearly volume overloaded, his Lasix has been changed from by mouth to IV at the ED. - We will continue diuresis the patient with IV Lasix. Monitor I's and O's, fluid restriction, low sodium diet. - Echocardiogram completed and results pending. (2) Acute kidney injury Current Visit: Yes Status: Resolved (3) Acute on chronic diastolic (congestive) heart failure Current Visit: Yes Status: Acute Assessment and Plan: Same as above. (4) DVT prophylaxis Current Visit: Yes Status: Acute Assessment and Plan: Continue patient's Xarelto for DVT prophylaxis. Monitor patient for signs of bleeding. (5) Hypokalemia Current Visit: Yes Status: Acute (6) Atrial fibrillation Current Visit: Yes Status: Chronic Assessment and Plan: Hx of paroxysmal atrial fibrillation. Continuous cardiac telemetry. Continue patient's amiodarone and Xarelto. (7) Diabetes mellitus Current Visit: Yes Status: Chronic Assessment and Plan: Hx of chronic diabetes. Patient does not currently take oral antihyperglycemic medication. A1c 6.5 today. Add low-dose correction insulin sliding scale with hypoglycemic protocol. BG checks before meals at bedtime. (8) COPD (chronic obstructive pulmonary disease) Current Visit: Yes Status: Chronic Assessment and Plan: Hx of chronic COPD. Stable. Supplemental O2 with titration and SPO2 monitoring. Xopenex IH due to patient's hx of atrial fibrillation. Continue patients inhalers. (9) CAD (coronary artery disease) Current Visit: Yes Status: Chronic Assessment and Plan: Hx of chronic CAD. Continuous cardiac telemetry. Continue patient's Xarelto, amiodarone, Lipitor, Midodrine, and metoprolol. (10) HLD (hyperlipidemia) Current Visit: Yes Status: Chronic Assessment and Plan: Hx of chronic HLD. Continue patient's Lipitor. (11) HTN (hypertension) Current Visit: Yes Status: Chronic Assessment and Plan: Hx of chronic HTN. Monitor patient vital signs. Continue patient's metoprolol and Midodrine. (12) Hypomagnesemia Current Visit: Yes Status: Acute Assessment and Plan: replaced - Time Spent with Patient Total time spent is greater than 50% in coordination of care (as documented) at patient's floor/unit and/or counseling patient: Internal Medicine: Result - Labs CBC & Chem 7: 02/06/18 04:42 02/06/18 04:42 Labs: Short CBC 02/06/18 Range/Units 04:42 WBC 7.4 (4.3-11.1) K/mcL Hgb 11.1 L D (12.9-16.9) g/dL Hct 34.1 L (37.5-50.1) % Plt Count 250 (140-400) K/mcL Neutrophils # 4.7 (1.6-8.9) K/mcL BMP 02/06/18 04:42 Sodium 139 Potassium 3.3 L Chloride 100 Carbon Dioxide 31 H BUN 20 Creatinine 1.11 Glucose 103 Calcium 8.5 L Liver Function 02/06/18 Range/Units 04:42 Total Bilirubin 0.4 (0.3-1.0) mg/dL AST 17 (13-39) Units/L ALT 21 (7-52) Units/L Alkaline Phosphatase 84 (34-104) Units/L Albumin 3.3 L (3.5-5.7) g/dL Urine 02/05/18 Range/Units 14:00 Urine Color Yellow (Yellow) Urine Clarity Clear (Clear) Urine pH 6.5 (5.0-8.0) pH Units Ur Specific [place] 1.018 (1.010-1.025) Urine Protein Negative (Neg-Trace) mg/dL Urine Glucose (UA) Normal (Normal) mg/dL Consult Discharge Plan - Plan Referrals: Krish-Edda Banda DO [Primary Care Provider] - (1) Fluid overload Qualifiers: Hypervolemia type: other Qualified Code(s): E87.79 - Other fluid overload (6) Atrial fibrillation Qualifiers: Atrial fibrillation type: paroxysmal Qualified Code(s): I48.0 - Paroxysmal atrial fibrillation (7) Diabetes mellitus Qualifiers: Diabetes mellitus type: type 2 Diabetes mellitus medical terminologist insulin use: without assisted use Diabetes mellitus complication status: with neurologic complications Qualified Code(s): E11.40 - Type 2 diabetes mellitus with diabetic neuropathy, unspecified (8) COPD (chronic obstructive pulmonary disease) Qualifiers: COPD type: unspecified COPD Qualified Code(s): J44.9 - Chronic obstructive pulmonary disease, unspecified (9) CAD (coronary artery disease) Qualifiers: Coronary Disease-Associated Artery/Lesion type: unspecified vessel or lesion type [place] vs. transplanted heart: [place] heart Associated angina: angina presence unspecified Qualified Code(s): I25.10 - Atherosclerotic heart disease of [place] coronary artery without angina pectoris (10) HLD (hyperlipidemia) Qualifiers: Hyperlipidemia type: pure hypercholesterolemia Qualified Code(s): E78.00 - Pure hypercholesterolemia, unspecified; E78.0 - Pure hypercholesterolemia (11) HTN (hypertension) Qualifiers: Hypertension type: essential hypertension Qualified Code(s): I10 - Essential (primary) hypertension
[2018-02-06] MEDS ORDERED: Metoprolol XL (24 HR) Succ 25 MG TAB.ER.24H PO SCH (18:00)
[2018-02-06] MEDS: Melatonin 3 MG TABLET PO SCH (20:58)
[2018-02-06] MEDS: traZODone 50 MG TABLET PO SCH (21:01)
[2018-02-06] MEDS: *HR* LORazepam 0.5 MG TABLET PO SCH (21:18)
[2018-02-07 04:16] LABS: Basophils % 0.5 %; Eosinophils # 0.4 K/mcL (0.0-0.6); Eosinophils % 4.9 %; Hemoglobin 11.8 g/dL (12.9-16.9); Immature Granulocytes % 0.5 % (0-4); Lymphocytes # 1.4 K/mcL (0.6-4.6); Lymphocytes % 18.6 %; Mean Corpuscular HGB Conc 32.8 g/dL (31.6-35.5); Mean Corpuscular Hemoglobin 29.8 pg (28.0-33.3); Mean Corpuscular Volume 90.9 fL (83.0-100.0); Mean Platelet Volume 9.3 fL (9.4-12.4); Monocytes # 0.7 K/mcL (0.0-1.3); Monocytes % 9.8 %; Neutrophils # 4.9 K/mcL (1.6-8.9); Platelet Count 270 K/mcL (140-400); Red Blood Count 3.96 M/mcL (4.19-5.50); Red Cell Distribution Width 16.9 % (11.5-14.5); Segmented Neutrophils % 65.7 %
[2018-02-07 04:34] LABS: Alanine Aminotransferase 22 Units/L (7-52); Albumin 3.3 g/dL (3.5-5.7); Albumin/Globulin Ratio 1.3 (1.1-2.2); Alkaline Phosphatase 84 Units/L (34-104); Aspartate Amino Transferase 17 Units/L (13-39); BUN/Creatinine Ratio 15 (6-26); Bilirubin,Total 0.3 mg/dL (0.3-1.0); Blood Urea Nitrogen 20 mg/dL (8-23); Calcium 8.7 mg/dL (8.6-10.3); Carbon Dioxide 33 mEq/L (23-29); Chloride 98 mEq/L (98-107); Globulin 2.5 g/dL (2.4-3.5); Glucose 118 mg/dL (70-105); Osmolality,Calculated 290 (280-300); Potassium 3.4 mEq/L (3.5-5.1); Sodium 138 mEq/L (136-145); Total Protein 5.8 g/dL (6.4-8.9); eGFR For Non-African Americans 52 (> 60)
[2018-02-07] MEDS: Levalbuterol Neb 1.25 MG/3 ML IH SCH ×4 (04:54→22:11)
[2018-02-07] MEDS: Insulin LISPRO 300 UNITS/3 ML VIAL SQ SCH ×4 (09:35→21:31)
[2018-02-07] MEDS: Furosemide 40 MG TABLET PO SCH (09:36)
[2018-02-07] MEDS: Cholecalciferol (D-3) 1,000 UNIT TABLET PO SCH (09:36)
[2018-02-07] MEDS: tiZANidine 4 MG TABLET PO SCH ×2 (09:36→21:12)
[2018-02-07] MEDS: *HR* Amiodarone 200 MG TABLET PO SCH (09:37)
[2018-02-07] MEDS: Gabapentin 400 MG CAPSULE PO SCH ×2 (09:37→21:13)
[2018-02-07] MEDS: Finasteride 5 MG TABLET PO SCH (09:37)
[2018-02-07] MEDS: Aspirin Enteric Coated 81 MG Tablet PO SCH (09:38)
[2018-02-07] MEDS: *HR* Rivaroxaban 10 MG TABLET PO SCH (09:38)
[2018-02-07] MEDS: (Stiolto Respimat Inhal) IH SCH (09:58)
--- NOTE | 2018-02-07 10:23 | Nephrology Progress Note ---
Date of Encounter: 02/07/18 Time of Encounter: 10:20 - Assessment and Plan (1) Fluid overload Current Visit: Yes Status: Acute Lasix changed to 40 mg po daily. Continue strict I/Os UOP 2750 yesterday. Continue fluid restriction of 1.5 liters/day Continue low salt diet. Pt reports he is getting "conflicting" stories from everyone that walks in the room. Explained that a fluid restriction and a low salt diet would indeed help with fluid overload. He states he is not sure anyone could follow that diet "we want him to do" and he would not restrict his fluid and salt at home. Educated about the risks of fluid overload and the effect it has on the entire body. Qualifiers: Hypervolemia type: other Qualified Code(s): E87.79 - Other fluid overload (2) Acute on chronic diastolic (congestive) heart failure Current Visit: Yes Status: Acute Per cardio. (3) Hypokalemia Current Visit: Yes Status: Acute Resolved 3.4 today. Subjective Principal diagnosis: fluid overload Interval history: Pt seen and examined, doing well. Denies CP/SOB. Objective - Vital Signs Vital signs: Vital Signs Temp Pulse Resp BP Pulse Ox 02/07/18 07:32 97.9 F 73 18 99/63 92 02/07/18 04:54 16 92 02/07/18 04:28 98.0 F 77 15 119/77 97 02/06/18 23:20 98.4 F 65 16 92/59 95 02/06/18 22:50 19 94 02/06/18 21:20 93 02/06/18 19:20 98.1 F 70 16 146/84 93 02/06/18 16:16 16 107/71 93 02/06/18 15:12 98.0 F 77 16 107/71 94 Intake and Output 02/06/18 02/07/18 02/07/18 23:59 07:59 15:59 Intake Total 240 / 240 120 / 120 Output Total 1200 / 1200 Balance -960 / -960 120 / 120 Intake: Oral 240 / 240 120 / 120 Output: Urine 1200 / 1200 Other: Meal Dinner Breakfast Percent of Meal Consumed 100% 100% Weight 129.2 kg Blood Glucose* 149 119 Patient Weight 02/07/18 23:59 Weight 129.2 kg - General Appearance General appearance: Present: well-developed, well-nourished EENT: Present: ATNC, hearing intact, vision intact Neck: Present: supple Respiratory: Present: clear Cardiology: Present: edema (+2 pitting edema to bilat lower extremities.), normal S1, normal S2 Gastrointestinal: Present: normoactive bowel sounds, no tenderness, no guarding Integumentary: Present: no rash, warm and dry Neurologic: Present: alert and oriented x3 Psychiatric: Present: mood/affect appropriate, cooperative - Lab 02/07/18 03:49 02/07/18 03:49 Most recent lab results Calcium 8.7 mg/dL (8.6-10.3) 02/07/18 03:49 Phosphorus 2.8 mg/dL (2.7-4.5) 02/06/18 04:42 Magnesium 2.0 mg/dL (1.6-2.6) 02/07/18 03:49 Consult Discharge Plan - Plan Referrals: Edda Rm DO [Primary Care Provider] - 02/14/18 3:45 pm
[2018-02-07] MEDS: Fluticasone Propionate Nasal 50 MCG/SPRAY BOTTLE NS SCH (10:44)
[2018-02-07] MEDS: LUBIPROSTONE PO SCH (10:44)
[2018-02-07] MEDS: Budesonide/Formoterol 80/4.5 MDI IH SCH ×2 (10:46→22:11)
[2018-02-07] MEDS: Furosemide 40 MG/4 ML VIAL IVP SCH (10:47)
--- NOTE | 2018-02-07 11:01 | Internal Med Progress Note ---
Hospitalist Progress Note - Encounter Date of Encounter: 02/07/18 Time of Encounter: 11:08 - Subjective Interval History: pt reported improved bloating. - Exam Vitals: Temp Pulse Resp BP Pulse Ox 97.9 F 73 18 99/63 92 02/07/18 07:32 02/07/18 07:32 02/07/18 10:49 02/07/18 07:32 02/07/18 10:49 Exam: PHYSICAL EXAMINATION: GENERAL APPEARANCE: The patient is alert, oriented and in no acute distress. HEENT: Head is normocephalic. The sinuses are nontender. Pupils are equal and reactive. The nares are patent. Oropharynx clear without lesions. NECK: Supple without lymphadenopathy. HEART: Regular rate and rhythm. LUNGS: No crackles or wheezes are heard. ABDOMEN: Soft, nontender, distended with good bowel sounds heard. Inguinal area is normal. EXTREMITIES: Without cyanosis, clubbing or edema. NEUROLOGICAL: Gross nonfocal. SKIN: Warm and dry without any rash. - Assessment and Plan (1) Fluid overload Current Visit: Yes Status: Acute Assessment and Plan: 68 year old male with past medical history of diastolic congestive heart failure presented with weight gain. He reported 35 pound weight gain within 1 week. He also noticed swelling Lasix and increased abdominal size. Patient is clearly volume overloaded, his Lasix has been changed from by mouth to IV at the ED. - Pt had -2500 cc/24h. Cr slightly bumped up from 1.1 to 1.3. Renal adjusted Lasix from IV to oral, appreciate help. - Echocardiogram 02/06/2018 EF 55%, mod LVDD. - Continue daily weight, low salt diet and fluid restriction. - Renal following. (2) Acute kidney injury Current Visit: Yes Status: Resolved Assessment and Plan: Slight change of Cr today, Renal adjusted lasix. continue monitoring renal function. (3) Acute on chronic diastolic (congestive) heart failure Current Visit: Yes Status: Acute Assessment and Plan: Same as above. (4) DVT prophylaxis Current Visit: Yes Status: Acute Assessment and Plan: Continue patient's Xarelto for DVT prophylaxis. Monitor patient for signs of bleeding. (5) Hypokalemia Current Visit: Yes Status: Acute Assessment and Plan: replaced, check BMP in am. (6) Atrial fibrillation Current Visit: Yes Status: Chronic Assessment and Plan: Hx of paroxysmal atrial fibrillation. Continuous cardiac telemetry. Continue patient's amiodarone and Xarelto. (7) Diabetes mellitus Current Visit: Yes Status: Chronic Assessment and Plan: Hx of chronic diabetes. Patient does not currently take oral antihyperglycemic medication. A1c 6.5 today. Add low-dose correction insulin sliding scale with hypoglycemic protocol. BG checks before meals at bedtime. (8) COPD (chronic obstructive pulmonary disease) Current Visit: Yes Status: Chronic Assessment and Plan: Hx of chronic COPD. Stable. Supplemental O2 with titration and SPO2 monitoring. Xopenex IH due to patient's hx of atrial fibrillation. Continue patients inhalers. (9) CAD (coronary artery disease) Current Visit: Yes Status: Chronic Assessment and Plan: Hx of chronic CAD. Continuous cardiac telemetry. Continue patient's Xarelto, amiodarone, Lipitor, Midodrine, and metoprolol. (10) HLD (hyperlipidemia) Current Visit: Yes Status: Chronic Assessment and Plan: Hx of chronic HLD. Continue patient's Lipitor. (11) HTN (hypertension) Current Visit: Yes Status: Chronic Assessment and Plan: Hx of chronic HTN. Monitor patient vital signs. Continue patient's metoprolol and Midodrine. (12) Hypomagnesemia Current Visit: Yes Status: Resolved - Time Spent with Patient Total time spent is greater than 50% in coordination of care (as documented) at patient's floor/unit and/or counseling patient: Greater than 35 minutes Plan of Care Discussed with: patient Internal Medicine: Result - Labs CBC & Chem 7: 02/07/18 03:49 02/07/18 03:49 Labs: Short CBC 02/07/18 Range/Units 03:49 WBC 7.4 (4.3-11.1) K/mcL Hgb 11.8 L (12.9-16.9) g/dL Hct 36.0 L (37.5-50.1) % Plt Count 270 (140-400) K/mcL Neutrophils # 4.9 (1.6-8.9) K/mcL BMP 02/07/18 03:49 Sodium 138 Potassium 3.4 L Chloride 98 Carbon Dioxide 33 H BUN 20 Creatinine 1.36 H Glucose 118 H Calcium 8.7 Liver Function 02/07/18 Range/Units 03:49 Total Bilirubin 0.3 (0.3-1.0) mg/dL AST 17 (13-39) Units/L ALT 22 (7-52) Units/L Alkaline Phosphatase 84 (34-104) Units/L Albumin 3.3 L (3.5-5.7) g/dL - Impressions Impressions Echocardiogram 02/06/18 16:15 Impressions: LVEF 55%. Normal LV chamber size, wall thickness and function. Moderate left ventricular diastolic dysfunction. Normal right ventricular structure and function. Mild aortic regurgitation. Borderline mild pulmonary hypertension. Estimated RVSP is 35 mmHg. A device lead was visualized in the right atrium and right ventricle. Left Ventricular Wall Motion: Rest Echo Findings All wall segments showed normal motion. Findings: Study Quality * Technically adequate exam. ECG Findings * Normal sinus rhythm. Left Ventricle * LVEF 55%. * Normal LV chamber size, wall thickness and function. * Moderate left ventricular diastolic dysfunction. Right Ventricle * Normal right ventricular structure and function. Left Atrium * Mildly dilated left atrium. Right Atrium * Mildly dilated right atrium. Aortic Valve * Aortic valve not well visualized. * Mild aortic regurgitation. * No aortic stenosis. Mitral Valve * Normal mitral valve structure and function. * No mitral stenosis. * Trace mitral regurgitation. Tricuspid Valve * Normal tricuspid valve structure and function. * Trace tricuspid regurgitation. * Borderline mild pulmonary hypertension. * Estimated RVSP is 35 mmHg. * Estimated RA pressure is 5 mmHg. Pulmonic Valve * Normal pulmonic valve structure and function. * No pulmonic regurgitation. Aorta * Normally sized aortic root. Pericardium * The pericardium appears normal. IVC * Normal IVC dimensions and inspiratory collapse. Device lead * A device lead was visualized in the right atrium and right ventricle. Pulmonary Artery * Normal visualized portions of the main pulmonary artery. Consult Discharge Plan - Plan Referrals: Edda Rm DO [Primary Care Provider] - (1) Fluid overload Qualifiers: Hypervolemia type: other Qualified Code(s): E87.79 - Other fluid overload (6) Atrial fibrillation Qualifiers: Atrial fibrillation type: paroxysmal Qualified Code(s): I48.0 - Paroxysmal atrial fibrillation (7) Diabetes mellitus Qualifiers: Diabetes mellitus type: type 2 Diabetes mellitus intermodal customer service insulin use: without intermodal customer service use Diabetes mellitus complication status: with neurologic complications Qualified Code(s): E11.40 - Type 2 diabetes mellitus with diabetic neuropathy, unspecified (8) COPD (chronic obstructive pulmonary disease) Qualifiers: COPD type: unspecified COPD Qualified Code(s): J44.9 - Chronic obstructive pulmonary disease, unspecified (9) CAD (coronary artery disease) Qualifiers: Coronary Disease-Associated Artery/Lesion type: unspecified vessel or lesion type [place] vs. transplanted heart: [place] heart Associated angina: angina presence unspecified Qualified Code(s): I25.10 - Atherosclerotic heart disease of [place] coronary artery without angina pectoris (10) HLD (hyperlipidemia) Qualifiers: Hyperlipidemia type: pure hypercholesterolemia Qualified Code(s): E78.00 - Pure hypercholesterolemia, unspecified; E78.0 - Pure hypercholesterolemia (11) HTN (hypertension) Qualifiers: Hypertension type: essential hypertension Qualified Code(s): I10 - Essential (primary) hypertension
[2018-02-07] MEDS: Spironolactone 25 MG TABLET PO SCH (17:06)
[2018-02-07] MEDS: traZODone 50 MG TABLET PO SCH (21:11)
[2018-02-07] MEDS: *HR* LORazepam 0.5 MG TABLET PO SCH (21:12)
[2018-02-07] MEDS: Melatonin 3 MG TABLET PO SCH (21:12)
[2018-02-08] MEDS: Levalbuterol Neb 1.25 MG/3 ML IH SCH ×4 (04:08→20:58)
[2018-02-08 05:39] LABS: Basophils % 0.4 %; Eosinophils # 0.5 K/mcL (0.0-0.6); Eosinophils % 6.1 %; Hematocrit 35.7 % (37.5-50.1); Hemoglobin 11.6 g/dL (12.9-16.9); Immature Granulocytes % 0.3 % (0-4); Lymphocytes # 1.1 K/mcL (0.6-4.6); Lymphocytes % 14.5 %; Mean Corpuscular HGB Conc 32.5 g/dL (31.6-35.5); Mean Corpuscular Hemoglobin 29.7 pg (28.0-33.3); Mean Corpuscular Volume 91.5 fL (83.0-100.0); Mean Platelet Volume 9.7 fL (9.4-12.4); Monocytes # 0.8 K/mcL (0.0-1.3); Monocytes % 10.4 %; Neutrophils # 5.1 K/mcL (1.6-8.9); Platelet Count 254 K/mcL (140-400); Red Cell Distribution Width 16.9 % (11.5-14.5); Segmented Neutrophils % 68.3 %
[2018-02-08 05:47] LABS: Alanine Aminotransferase 19 Units/L (7-52); Albumin 3.3 g/dL (3.5-5.7); Albumin/Globulin Ratio 1.4 (1.1-2.2); Alkaline Phosphatase 79 Units/L (34-104); Aspartate Amino Transferase 15 Units/L (13-39); BUN/Creatinine Ratio 17 (6-26); Bilirubin,Total 0.3 mg/dL (0.3-1.0); Blood Urea Nitrogen 21 mg/dL (8-23); Calcium 8.6 mg/dL (8.6-10.3); Carbon Dioxide 30 mEq/L (23-29); Chloride 101 mEq/L (98-107); Globulin 2.4 g/dL (2.4-3.5); Glucose 126 mg/dL (70-105); Osmolality,Calculated 293 (280-300); Potassium 3.9 mEq/L (3.5-5.1); Sodium 139 mEq/L (136-145); Total Protein 5.7 g/dL (6.4-8.9); eGFR For Non-African Americans 60 (> 60)
[2018-02-08] MEDS: *HR* OxyCODONE Immed Rel 5 MG TABLET PO PRN ×2 (06:42→20:04)
[2018-02-08] MEDS: Gabapentin 400 MG CAPSULE PO SCH ×2 (09:16→19:54)
[2018-02-08] MEDS: Spironolactone 25 MG TABLET PO SCH (09:16)
[2018-02-08] MEDS: Aspirin Enteric Coated 81 MG Tablet PO SCH (09:17)
[2018-02-08] MEDS: *HR* Amiodarone 200 MG TABLET PO SCH (09:17)
[2018-02-08] MEDS: *HR* Rivaroxaban 10 MG TABLET PO SCH (09:17)
[2018-02-08] MEDS: Furosemide 40 MG TABLET PO SCH (09:17)
[2018-02-08] MEDS: tiZANidine 4 MG TABLET PO SCH ×2 (09:17→19:54)
[2018-02-08] MEDS: Cholecalciferol (D-3) 1,000 UNIT TABLET PO SCH (09:17)
[2018-02-08] MEDS: Finasteride 5 MG TABLET PO SCH (09:18)
--- NOTE | 2018-02-08 09:45 | Nephrology Progress Note ---
Date of Encounter: 02/08/18 Time of Encounter: 09:39 - Assessment and Plan (1) Fluid overload Current Visit: Yes Status: Acute Continue Lasix 40 mg po daily, please continue this upon d/c. Scr is 1.21 and GFR is > than 60, we will sign off please reconsult if needed. BMP 1 week after D/C and f/u with Dr. Wynn in 4-6 weeks. Continue strict I/Os UOP 1300 yesterday. Continue fluid restriction of 1.5 liters/day Continue low salt diet. Qualifiers: Hypervolemia type: other Qualified Code(s): E87.79 - Other fluid overload (2) Acute on chronic diastolic (congestive) heart failure Current Visit: Yes Status: Acute Per cardio. (3) Hypokalemia Current Visit: Yes Status: Acute Resolved 3.9 today. Subjective Principal diagnosis: fluid overload Interval history: Pt seen and examined, doing well. Denies CP/SOB. Objective - Vital Signs Vital signs: Vital Signs Temp Pulse Resp BP Pulse Ox 02/08/18 07:21 98.1 F 60 18 101/66 93 02/08/18 03:50 98.0 F 67 17 102/67 95 02/07/18 23:22 97.9 F 68 19 96/64 93 02/07/18 22:13 18 93 02/07/18 19:36 98.4 F 78 18 119/76 93 02/07/18 16:04 97.9 F 62 20 96/66 98 02/07/18 15:50 18 94 02/07/18 12:20 97.9 F 63 18 93/62 94 02/07/18 10:49 18 92 Intake and Output 02/07/18 02/08/18 02/08/18 23:59 07:59 15:59 Intake Total 1230 / 1230 360 / 360 Output Total 1300 / 1300 Balance -70 / -70 360 / 360 Intake: Oral 1230 / 1230 360 / 360 Output: Urine 1300 / 1300 Other: Meal Dinner Breakfast Percent of Meal Consumed 0% 100% Weight 129 kg Blood Glucose* 128 Patient Weight 02/08/18 23:59 Weight 129 kg - General Appearance General appearance: Present: well-developed, well-nourished, obese EENT: Present: hearing intact, vision intact Neck: Present: supple Respiratory: Present: clear Cardiology: Present: no edema, normal S1, normal S2 Gastrointestinal: Present: normoactive bowel sounds, no tenderness, no guarding Integumentary: Present: no rash, warm and dry Neurologic: Present: alert and oriented x3 Psychiatric: Present: mood/affect appropriate, cooperative - Lab 02/08/18 04:15 02/08/18 04:15 Most recent lab results Calcium 8.6 mg/dL (8.6-10.3) 02/08/18 04:15 Phosphorus 2.8 mg/dL (2.7-4.5) 02/06/18 04:42 Magnesium 2.0 mg/dL (1.6-2.6) 02/07/18 03:49 Consult Discharge Plan - Plan Referrals: Edda Rm DO [Primary Care Provider] - 02/14/18 3:45 pm
[2018-02-08] MEDS: Budesonide/Formoterol 80/4.5 MDI IH SCH ×2 (10:59→20:58)
[2018-02-08] MEDS: (Stiolto Respimat Inhal) IH SCH (11:01)
[2018-02-08] MEDS ORDERED: metOLazone 5 MG TABLET PO ONE (13:22)
--- NOTE | 2018-02-08 13:26 | Internal Med Progress Note ---
Hospitalist Progress Note - Encounter Date of Encounter: 02/08/18 Time of Encounter: 15:11 - Subjective Interval History: pt reported improved bloating. - Exam Vitals: Temp Pulse Resp BP Pulse Ox 97.8 F 67 18 107/69 93 02/08/18 12:04 02/08/18 12:04 02/08/18 12:04 02/08/18 12:04 02/08/18 12:04 Exam: PHYSICAL EXAMINATION: GENERAL APPEARANCE: The patient is alert, oriented and in no acute distress. HEENT: Head is normocephalic. The sinuses are nontender. Pupils are equal and reactive. The nares are patent. Oropharynx clear without lesions. NECK: Supple without lymphadenopathy. HEART: Regular rate and rhythm. LUNGS: No crackles or wheezes are heard. ABDOMEN: Soft, nontender, nondistended with good bowel sounds heard. Inguinal area is normal. EXTREMITIES: 3+ pitting edema at BLE. NEUROLOGICAL: Gross nonfocal. SKIN: Warm and dry without any rash. - Assessment and Plan (1) Fluid overload Current Visit: Yes Status: Acute Assessment and Plan: 68 year old male with past medical history of diastolic congestive heart failure presented with weight gain. He reported 35 pound weight gain within 1 week. He also noticed swelling in legs and increased abdominal size. Patient is clearly volume overloaded, his Lasix has been changed from by mouth to IV at the ED. - Due to increased Cr, IV lasix changed back to oral 40 mg daily per renal, Cr improved today. - Is/Os: +290 mt/24h, add metalozone and aldactone to improve diuresis. - BP well-controlled. - continue fluid restriction, continue low salt diet. (2) Acute kidney injury Current Visit: Yes Status: Resolved Assessment and Plan: Cr at baseline, continue oral lasix per renal. (3) Acute on chronic diastolic (congestive) heart failure Current Visit: Yes Status: Acute Assessment and Plan: Same as above. (4) DVT prophylaxis Current Visit: Yes Status: Acute Assessment and Plan: Continue patient's Xarelto for DVT prophylaxis. Monitor patient for signs of bleeding. (5) Atrial fibrillation Current Visit: Yes Status: Chronic Assessment and Plan: Hx of paroxysmal atrial fibrillation. Continuous cardiac telemetry. Continue patient's amiodarone and Xarelto. (6) Diabetes mellitus Current Visit: Yes Status: Chronic (7) COPD (chronic obstructive pulmonary disease) Current Visit: Yes Status: Chronic Assessment and Plan: Hx of chronic COPD. Stable. Supplemental O2 with titration and SPO2 monitoring. Xopenex IH due to patient's hx of atrial fibrillation. Continue patients inhalers. (8) CAD (coronary artery disease) Current Visit: Yes Status: Chronic Assessment and Plan: Hx of chronic CAD. Continuous cardiac telemetry. Continue patient's Xarelto, amiodarone, Lipitor, Midodrine, and metoprolol. (9) HLD (hyperlipidemia) Current Visit: Yes Status: Chronic Assessment and Plan: Hx of chronic HLD. Continue patient's Lipitor. (10) HTN (hypertension) Current Visit: Yes Status: Chronic Assessment and Plan: Hx of chronic HTN. Monitor patient vital signs. Continue patient's metoprolol and Midodrine. - Time Spent with Patient Total time spent is greater than 50% in coordination of care (as documented) at patient's floor/unit and/or counseling patient: Greater than 35 minutes Plan of Care Discussed with: patient Internal Medicine: Result - Labs CBC & Chem 7: 02/08/18 04:15 02/08/18 04:15 Labs: Short CBC 02/08/18 Range/Units 04:15 WBC 7.5 (4.3-11.1) K/mcL Hgb 11.6 L (12.9-16.9) g/dL Hct 35.7 L (37.5-50.1) % Plt Count 254 (140-400) K/mcL Neutrophils # 5.1 (1.6-8.9) K/mcL BMP 02/08/18 04:15 Sodium 139 Potassium 3.9 Chloride 101 Carbon Dioxide 30 H BUN 21 Creatinine 1.21 Glucose 126 H Calcium 8.6 Liver Function 02/08/18 Range/Units 04:15 Total Bilirubin 0.3 (0.3-1.0) mg/dL AST 15 (13-39) Units/L ALT 19 (7-52) Units/L Alkaline Phosphatase 79 (34-104) Units/L Albumin 3.3 L (3.5-5.7) g/dL Consult Discharge Plan - Plan Referrals: Krish-Edda Banda DO [Primary Care Provider] - 02/14/18 3:45 pm (1) Fluid overload Qualifiers: Hypervolemia type: other Qualified Code(s): E87.79 - Other fluid overload (5) Atrial fibrillation Qualifiers: Atrial fibrillation type: paroxysmal Qualified Code(s): I48.0 - Paroxysmal atrial fibrillation (6) Diabetes mellitus Qualifiers: Diabetes mellitus type: type 2 Diabetes mellitus intermediate insulin use: without termite 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 use Diabetes mellitus complication status: with neurologic complications (7) COPD (chronic obstructive pulmonary disease) Qualifiers: COPD type: unspecified COPD Qualified Code(s): J44.9 - Chronic obstructive pulmonary disease, unspecified (8) CAD (coronary artery disease) Qualifiers: Coronary Disease-Associated Artery/Lesion type: unspecified vessel or lesion type [place] vs. transplanted heart: [place] heart Associated angina: angina presence unspecified Qualified Code(s): I25.10 - Atherosclerotic heart disease of [place] coronary artery without angina pectoris (9) HLD (hyperlipidemia) Qualifiers: Hyperlipidemia type: pure hypercholesterolemia Qualified Code(s): E78.00 - Pure hypercholesterolemia, unspecified; E78.0 - Pure hypercholesterolemia (10) HTN (hypertension) Qualifiers: Hypertension type: essential hypertension Qualified Code(s): I10 - Essential (primary) hypertension
[2018-02-08] MEDS: Fluticasone Propionate Nasal 50 MCG/SPRAY BOTTLE NS SCH (17:33)
[2018-02-08] MEDS: Insulin LISPRO 300 UNITS/3 ML VIAL SQ SCH ×2 (17:33→20:00)
[2018-02-08] MEDS: LUBIPROSTONE PO SCH (17:34)
[2018-02-08] MEDS: *HR* LORazepam 0.5 MG TABLET PO SCH (19:53)
[2018-02-08] MEDS: Melatonin 3 MG TABLET PO SCH (19:53)
[2018-02-08] MEDS: traZODone 50 MG TABLET PO SCH (19:53)
[2018-02-09] MEDS: Levalbuterol Neb 1.25 MG/3 ML IH SCH ×4 (03:57→22:16)
[2018-02-09 06:12] LABS: Basophils % 0.7 %; Eosinophils # 0.3 K/mcL (0.0-0.6); Eosinophils % 5.4 %; Hematocrit 35.4 % (37.5-50.1); Hemoglobin 11.4 g/dL (12.9-16.9); Immature Granulocytes % 0.5 % (0-4); Lymphocytes % 16.6 %; Mean Corpuscular HGB Conc 32.2 g/dL (31.6-35.5); Mean Corpuscular Hemoglobin 29.5 pg (28.0-33.3); Mean Corpuscular Volume 91.5 fL (83.0-100.0); Mean Platelet Volume 9.5 fL (9.4-12.4); Monocytes # 0.6 K/mcL (0.0-1.3); Neutrophils # 3.8 K/mcL (1.6-8.9); Platelet Count 244 K/mcL (140-400); Red Blood Count 3.87 M/mcL (4.19-5.50); Red Cell Distribution Width 16.9 % (11.5-14.5); Segmented Neutrophils % 65.8 %
[2018-02-09 06:35] LABS: BUN/Creatinine Ratio 15 (6-26); Blood Urea Nitrogen 19 mg/dL (8-23); Calcium 8.6 mg/dL (8.6-10.3); Carbon Dioxide 28 mEq/L (23-29); Chloride 101 mEq/L (98-107); Glucose 122 mg/dL (70-105); Osmolality,Calculated 290 (280-300); Potassium 3.9 mEq/L (3.5-5.1); Sodium 138 mEq/L (136-145); eGFR For Non-African Americans 56 (> 60)
[2018-02-09] MEDS: Insulin LISPRO 300 UNITS/3 ML VIAL SQ SCH ×4 (08:19→21:33)
[2018-02-09] MEDS: *HR* Amiodarone 200 MG TABLET PO SCH (08:31)
[2018-02-09] MEDS: Finasteride 5 MG TABLET PO SCH (08:32)
[2018-02-09] MEDS: Spironolactone 25 MG TABLET PO SCH (08:32)
[2018-02-09] MEDS: Aspirin Enteric Coated 81 MG Tablet PO SCH (08:32)
[2018-02-09] MEDS: tiZANidine 4 MG TABLET PO SCH ×2 (08:32→21:17)
[2018-02-09] MEDS: Furosemide 40 MG TABLET PO SCH (08:32)
[2018-02-09] MEDS: *HR* Rivaroxaban 10 MG TABLET PO SCH (08:32)
[2018-02-09] MEDS: Cholecalciferol (D-3) 1,000 UNIT TABLET PO SCH (08:32)
[2018-02-09] MEDS: Fluticasone Propionate Nasal 50 MCG/SPRAY BOTTLE NS SCH (08:37)
[2018-02-09] MEDS: Gabapentin 400 MG CAPSULE PO SCH ×2 (08:42→21:16)
[2018-02-09] MEDS: LUBIPROSTONE PO SCH (08:42)
[2018-02-09] MEDS: Budesonide/Formoterol 80/4.5 MDI IH SCH ×2 (10:47→22:16)
[2018-02-09] MEDS: (Stiolto Respimat Inhal) IH SCH (10:49)
--- NOTE | 2018-02-09 12:38 | Internal Med Progress Note ---
Hospitalist Progress Note - Encounter Date of Encounter: 02/09/18 Time of Encounter: 12:49 - Subjective Interval History: pt reported improved swelling - Exam Vitals: Temp Pulse Resp BP Pulse Ox 97.9 F 67 18 93/62 91 02/09/18 11:24 02/09/18 11:24 02/09/18 11:24 02/09/18 11:24 02/09/18 11:24 Exam: PHYSICAL EXAMINATION: GENERAL APPEARANCE: The patient is alert, oriented and in no acute distress. HEENT: Head is normocephalic. The sinuses are nontender. Pupils are equal and reactive. The nares are patent. Oropharynx clear without lesions. NECK: Supple without lymphadenopathy. HEART: Regular rate and rhythm. LUNGS: No crackles or wheezes are heard. ABDOMEN: Soft, nontender, distended with good bowel sounds heard. Inguinal area is normal. EXTREMITIES: Without cyanosis, clubbing or edema. NEUROLOGICAL: Gross nonfocal. SKIN: Warm and dry without any rash. - Assessment and Plan (1) Fluid overload Current Visit: Yes Status: Acute Assessment and Plan: 68 year old male with past medical history of diastolic congestive heart failure presented with weight gain. He reported 35 pound weight gain within 1 week. He also noticed swelling in legs and increased abdominal size. Patient is clearly volume overloaded, his Lasix has been changed from by mouth to IV at the ED. - Due to increased Cr, IV lasix changed back to oral 40 mg daily per renal, Cr stable. - Is/Os: -290 mt/24h, continue metalozone and aldactone to improve diuresis. - BP well-controlled. - continue fluid restriction, continue low salt diet. (2) Acute kidney injury Current Visit: Yes Status: Resolved Assessment and Plan: Cr at baseline, continue oral lasix per renal. (3) Acute on chronic diastolic (congestive) heart failure Current Visit: Yes Status: Acute Assessment and Plan: Same as above. (4) DVT prophylaxis Current Visit: Yes Status: Acute Assessment and Plan: Continue patient's Xarelto for DVT prophylaxis. Monitor patient for signs of bleeding. (5) Atrial fibrillation Current Visit: Yes Status: Chronic Assessment and Plan: Hx of paroxysmal atrial fibrillation. Continuous cardiac telemetry. Continue patient's amiodarone and Xarelto. (6) Diabetes mellitus Current Visit: Yes Status: Chronic Assessment and Plan: Hx of chronic diabetes. Patient does not currently take oral antihyperglycemic medication. A1c 6.5 today. Add low-dose correction insulin sliding scale with hypoglycemic protocol. BG checks before meals at bedtime. (7) COPD (chronic obstructive pulmonary disease) Current Visit: Yes Status: Chronic Assessment and Plan: Hx of chronic COPD. Stable. Supplemental O2 with titration and SPO2 monitoring. Xopenex IH due to patient's hx of atrial fibrillation. Continue patients inhalers. (8) CAD (coronary artery disease) Current Visit: Yes Status: Chronic Assessment and Plan: Hx of chronic CAD. Continuous cardiac telemetry. Continue patient's Xarelto, amiodarone, Lipitor, Midodrine, and metoprolol. (9) HLD (hyperlipidemia) Current Visit: Yes Status: Chronic Assessment and Plan: Hx of chronic HLD. Continue patient's Lipitor. (10) HTN (hypertension) Current Visit: Yes Status: Chronic Assessment and Plan: Hx of chronic HTN. Monitor patient vital signs. Continue patient's metoprolol and Midodrine. - Time Spent with Patient Total time spent is greater than 50% in coordination of care (as documented) at patient's floor/unit and/or counseling patient: Greater than 35 minutes Plan of Care Discussed with: patient Internal Medicine: Result - Labs CBC & Chem 7: 02/09/18 04:48 02/09/18 04:48 Labs: Short CBC 02/09/18 Range/Units 04:48 WBC 5.7 (4.3-11.1) K/mcL Hgb 11.4 L (12.9-16.9) g/dL Hct 35.4 L (37.5-50.1) % Plt Count 244 (140-400) K/mcL Neutrophils # 3.8 (1.6-8.9) K/mcL BMP 02/09/18 04:48 Sodium 138 Potassium 3.9 Chloride 101 Carbon Dioxide 28 BUN 19 Creatinine 1.28 Glucose 122 H Calcium 8.6 Consult Discharge Plan - Plan Referrals: Edda Rm DO [Primary Care Provider] - 02/14/18 3:45 pm (1) Fluid overload Qualifiers: Hypervolemia type: other Qualified Code(s): E87.79 - Other fluid overload (5) Atrial fibrillation Qualifiers: Atrial fibrillation type: paroxysmal Qualified Code(s): I48.0 - Paroxysmal atrial fibrillation (6) Diabetes mellitus Qualifiers: Diabetes mellitus type: type 2 Diabetes mellitus terminal operations supervisor insulin use: without terminal operations supervisor use Diabetes mellitus complication status: with neurologic complications (7) COPD (chronic obstructive pulmonary disease) Qualifiers: COPD type: unspecified COPD Qualified Code(s): J44.9 - Chronic obstructive pulmonary disease, unspecified (8) CAD (coronary artery disease) Qualifiers: Coronary Disease-Associated Artery/Lesion type: unspecified vessel or lesion type [place] vs. transplanted heart: [place] heart Associated angina: angina presence unspecified Qualified Code(s): I25.10 - Atherosclerotic heart disease of [place] coronary artery without angina pectoris (9) HLD (hyperlipidemia) Qualifiers: Hyperlipidemia type: pure hypercholesterolemia Qualified Code(s): E78.00 - Pure hypercholesterolemia, unspecified; E78.0 - Pure hypercholesterolemia (10) HTN (hypertension) Qualifiers: Hypertension type: essential hypertension Qualified Code(s): I10 - Essential (primary) hypertension
[2018-02-09] MEDS ORDERED: metOLazone 5 MG TABLET PO ONE (12:51)
[2018-02-09] MEDS: Melatonin 3 MG TABLET PO SCH (21:15)
[2018-02-09] MEDS: *HR* LORazepam 0.5 MG TABLET PO SCH (21:16)
[2018-02-09] MEDS: traZODone 50 MG TABLET PO SCH (21:17)
[2018-02-09] MEDS: *HR* OxyCODONE Immed Rel 5 MG TABLET PO PRN (23:35)
[2018-02-10] MEDS: Levalbuterol Neb 1.25 MG/3 ML IH SCH ×4 (04:11→21:45)
[2018-02-10 05:01] LABS: Basophils % 0.4 %; Eosinophils # 0.4 K/mcL (0.0-0.6); Eosinophils % 5.5 %; Hemoglobin 12.2 g/dL (12.9-16.9); Immature Granulocytes % 0.4 % (0-4); Lymphocytes # 1.1 K/mcL (0.6-4.6); Lymphocytes % 14.3 %; Mean Corpuscular Hemoglobin 29.6 pg (28.0-33.3); Mean Corpuscular Volume 89.8 fL (83.0-100.0); Mean Platelet Volume 9.2 fL (9.4-12.4); Monocytes # 0.7 K/mcL (0.0-1.3); Monocytes % 9.4 %; Neutrophils # 5.4 K/mcL (1.6-8.9); Platelet Count 244 K/mcL (140-400); Red Blood Count 4.12 M/mcL (4.19-5.50); Red Cell Distribution Width 16.6 % (11.5-14.5)
[2018-02-10 05:23] LABS: BUN/Creatinine Ratio 17 (6-26); Blood Urea Nitrogen 20 mg/dL (8-23); Calcium 8.9 mg/dL (8.6-10.3); Carbon Dioxide 31 mEq/L (23-29); Chloride 96 mEq/L (98-107); Glucose 114 mg/dL (70-105); Osmolality,Calculated 283 (280-300); Potassium 3.6 mEq/L (3.5-5.1); Sodium 135 mEq/L (136-145); eGFR For Non-African Americans 60 (> 60)
[2018-02-10] MEDS: Furosemide 40 MG TABLET PO SCH (09:02)
[2018-02-10] MEDS: Aspirin Enteric Coated 81 MG Tablet PO SCH (09:02)
[2018-02-10] MEDS: tiZANidine 4 MG TABLET PO SCH ×2 (09:03→21:09)
[2018-02-10] MEDS: Spironolactone 25 MG TABLET PO SCH (09:03)
[2018-02-10] MEDS: Finasteride 5 MG TABLET PO SCH (09:04)
[2018-02-10] MEDS: *HR* Rivaroxaban 10 MG TABLET PO SCH (09:04)
[2018-02-10] MEDS: *HR* Amiodarone 200 MG TABLET PO SCH (09:05)
[2018-02-10] MEDS: Gabapentin 400 MG CAPSULE PO SCH ×2 (09:05→21:09)
[2018-02-10] MEDS: LUBIPROSTONE PO SCH (09:05)
[2018-02-10] MEDS: Cholecalciferol (D-3) 1,000 UNIT TABLET PO SCH (09:05)
[2018-02-10] MEDS: Insulin LISPRO 300 UNITS/3 ML VIAL SQ SCH ×4 (09:06→21:02)
[2018-02-10] MEDS: Fluticasone Propionate Nasal 50 MCG/SPRAY BOTTLE NS SCH (09:06)
[2018-02-10] MEDS: Budesonide/Formoterol 80/4.5 MDI IH SCH ×2 (11:06→21:45)
[2018-02-10] MEDS: (Stiolto Respimat Inhal) IH SCH (11:07)
[2018-02-10] MEDS ORDERED: metOLazone 5 MG TABLET PO ONE (14:23)
--- NOTE | 2018-02-10 14:23 | Internal Med Progress Note ---
Hospitalist Progress Note - Encounter Date of Encounter: 02/10/18 Time of Encounter: 14:21 - Subjective Interval History: pt reported improved swelling - Exam Vitals: Temp Pulse Resp BP Pulse Ox 98.1 F 71 16 106/74 93 02/10/18 11:04 02/10/18 11:04 02/10/18 11:04 02/10/18 11:04 02/10/18 11:04 Exam: PHYSICAL EXAMINATION: GENERAL APPEARANCE: The patient is alert, oriented and in no acute distress. HEENT: Head is normocephalic. The sinuses are nontender. Pupils are equal and reactive. The nares are patent. Oropharynx clear without lesions. NECK: Supple without lymphadenopathy. HEART: Regular rate and rhythm. LUNGS: No crackles or wheezes are heard. ABDOMEN: Soft, nontender, nondistended with good bowel sounds heard. Inguinal area is normal. EXTREMITIES: 2+ pitting edema on both legs. NEUROLOGICAL: Gross nonfocal. SKIN: Warm and dry without any rash. - Assessment and Plan (1) Fluid overload Current Visit: Yes Status: Acute Assessment and Plan: 68 year old male with past medical history of diastolic congestive heart failure presented with weight gain. He reported 35 pound weight gain within 1 week. He also noticed swelling in legs and increased abdominal size. Patient is clearly volume overloaded, his Lasix has been changed from by mouth to IV at the ED. - Due to increased Cr, IV lasix changed back to oral 40 mg daily per renal, Cr stable. - Is/Os: -1179 mt/24h, continue metalozone and aldactone to improve diuresis. - BP well-controlled. - continue fluid restriction, continue low salt diet. (2) Acute kidney injury Current Visit: Yes Status: Resolved Assessment and Plan: Cr at baseline, continue oral lasix, metolazone, and aldacone. per renal. (3) Acute on chronic diastolic (congestive) heart failure Current Visit: Yes Status: Acute Assessment and Plan: Same as above. (4) Diabetes mellitus Current Visit: Yes Status: Chronic Assessment and Plan: Hx of chronic diabetes. Patient does not currently take oral antihyperglycemic medication. A1c 6.5 today. Add low-dose correction insulin sliding scale with hypoglycemic protocol. BG checks before meals at bedtime. (5) COPD (chronic obstructive pulmonary disease) Current Visit: Yes Status: Chronic Assessment and Plan: Hx of chronic COPD. Stable. Supplemental O2 with titration and SPO2 monitoring. Xopenex IH due to patient's hx of atrial fibrillation. Continue patients inhalers. (6) CAD (coronary artery disease) Current Visit: Yes Status: Chronic Assessment and Plan: Hx of chronic CAD. Continuous cardiac telemetry. Continue patient's Xarelto, amiodarone, Lipitor, Midodrine, and metoprolol. (7) HLD (hyperlipidemia) Current Visit: Yes Status: Chronic Assessment and Plan: Hx of chronic HLD. Continue patient's Lipitor. (8) HTN (hypertension) Current Visit: Yes Status: Chronic Assessment and Plan: Hx of chronic HTN. Monitor patient vital signs. Continue patient's metoprolol and Midodrine. (9) Atrial fibrillation Current Visit: Yes Status: Chronic Assessment and Plan: Hx of paroxysmal atrial fibrillation. Continuous cardiac telemetry. Continue patient's amiodarone and Xarelto. (10) DVT prophylaxis Current Visit: Yes Status: Acute - Time Spent with Patient Total time spent is greater than 50% in coordination of care (as documented) at patient's floor/unit and/or counseling patient: Greater than 35 minutes Plan of Care Discussed with: patient Internal Medicine: Result - Labs CBC & Chem 7: 02/10/18 04:41 02/10/18 04:41 Labs: Short CBC 02/10/18 Range/Units 04:41 WBC 7.8 (4.3-11.1) K/mcL Hgb 12.2 L (12.9-16.9) g/dL Hct 37.0 L (37.5-50.1) % Plt Count 244 (140-400) K/mcL Neutrophils # 5.4 (1.6-8.9) K/mcL BMP 02/10/18 04:41 Sodium 135 L Potassium 3.6 Chloride 96 L Carbon Dioxide 31 H BUN 20 Creatinine 1.21 Glucose 114 H Calcium 8.9 Consult Discharge Plan - Plan Referrals: Edda Rm DO [Primary Care Provider] - 02/14/18 3:45 pm (1) Fluid overload Qualifiers: Hypervolemia type: other Qualified Code(s): E87.79 - Other fluid overload (4) Diabetes mellitus Qualifiers: Diabetes mellitus type: type 2 Diabetes mellitus jail insulin use: without jail use Diabetes mellitus complication status: with neurologic complications (5) COPD (chronic obstructive pulmonary disease) Qualifiers: COPD type: unspecified COPD Qualified Code(s): J44.9 - Chronic obstructive pulmonary disease, unspecified (6) CAD (coronary artery disease) Qualifiers: Coronary Disease-Associated Artery/Lesion type: unspecified vessel or lesion type [place] vs. transplanted heart: [place] heart Associated angina: angina presence unspecified Qualified Code(s): I25.10 - Atherosclerotic heart disease of [place] coronary artery without angina pectoris (7) HLD (hyperlipidemia) Qualifiers: Hyperlipidemia type: pure hypercholesterolemia Qualified Code(s): E78.00 - Pure hypercholesterolemia, unspecified; E78.0 - Pure hypercholesterolemia (8) HTN (hypertension) Qualifiers: Hypertension type: essential hypertension Qualified Code(s): I10 - Essential (primary) hypertension (9) Atrial fibrillation Qualifiers: Atrial fibrillation type: paroxysmal Qualified Code(s): I48.0 - Paroxysmal atrial fibrillation
[2018-02-10] MEDS: Melatonin 3 MG TABLET PO SCH (21:09)
[2018-02-10] MEDS: *HR* LORazepam 0.5 MG TABLET PO SCH (21:09)
[2018-02-10] MEDS: traZODone 50 MG TABLET PO SCH (21:09)
[2018-02-11] MEDS: Levalbuterol Neb 1.25 MG/3 ML IH SCH ×4 (04:12→22:32)
[2018-02-11 07:23] LABS: BUN/Creatinine Ratio 18 (6-26); Blood Urea Nitrogen 21 mg/dL (8-23); Calcium 9.4 mg/dL (8.6-10.3); Carbon Dioxide 32 mEq/L (23-29); Chloride 97 mEq/L (98-107); Glucose 110 mg/dL (70-105); Osmolality,Calculated 288 (280-300); Sodium 137 mEq/L (136-145); eGFR For Non-African Americans > 60 (> 60)
[2018-02-11] MEDS: Insulin LISPRO 300 UNITS/3 ML VIAL SQ SCH ×4 (08:06→21:17)
[2018-02-11] MEDS: Spironolactone 25 MG TABLET PO SCH (08:13)
[2018-02-11] MEDS: tiZANidine 4 MG TABLET PO SCH ×2 (08:13→21:24)
[2018-02-11] MEDS: Aspirin Enteric Coated 81 MG Tablet PO SCH (08:13)
[2018-02-11] MEDS: *HR* Rivaroxaban 10 MG TABLET PO SCH (08:14)
[2018-02-11] MEDS: Gabapentin 400 MG CAPSULE PO SCH ×2 (08:14→21:23)
[2018-02-11] MEDS: Furosemide 40 MG TABLET PO SCH (08:14)
[2018-02-11] MEDS: Finasteride 5 MG TABLET PO SCH (08:14)
[2018-02-11] MEDS: *HR* Amiodarone 200 MG TABLET PO SCH (08:14)
[2018-02-11] MEDS: Cholecalciferol (D-3) 1,000 UNIT TABLET PO SCH (08:15)
[2018-02-11] MEDS: LUBIPROSTONE PO SCH (08:15)
[2018-02-11] MEDS: Fluticasone Propionate Nasal 50 MCG/SPRAY BOTTLE NS SCH (08:16)
[2018-02-11] MEDS ORDERED: metOLazone 5 MG TABLET PO ONE (10:00)
--- NOTE | 2018-02-11 10:35 | Internal Med Progress Note ---
Hospitalist Progress Note - Encounter Date of Encounter: 02/11/18 Time of Encounter: 10:33 - Subjective Interval History: pt reported improved swelling - Exam Vitals: Temp Pulse Resp BP Pulse Ox 98.2 F 74 16 109/75 92 02/11/18 07:25 02/11/18 07:25 02/11/18 07:25 02/11/18 07:25 02/11/18 07:25 - Assessment and Plan (1) Fluid overload Current Visit: Yes Status: Acute Assessment and Plan: 68 year old male with past medical history of diastolic congestive heart failure presented with weight gain. He reported 35 pound weight gain within 1 week. He also noticed swelling in legs and increased abdominal size. Patient is clearly volume overloaded, his Lasix has been changed from by mouth to IV at the ED. - repeat ECHO showed preserved EF, mod LVDD. - Due to increased Cr, IV lasix changed back to oral 40 mg daily per renal, Cr stable. - Is/Os: -1820 ml/24h, continue metalozone and aldactone to improve diuresis. - BP well-controlled. - continue fluid restriction, continue low salt diet. (2) Acute kidney injury Current Visit: Yes Status: Resolved Assessment and Plan: Cr at baseline, continue oral lasix, metolazone, and aldacone. per renal. (3) Acute on chronic diastolic (congestive) heart failure Current Visit: Yes Status: Acute Assessment and Plan: repeat ECHO on 02/06 showed EF 55%, mod LVDD. Pt was on Lasix, metolazone, and aldactone, he lost 10 lbs since admission. (4) Diabetes mellitus Current Visit: Yes Status: Chronic Assessment and Plan: Hx of chronic diabetes. Patient does not currently take oral antihyperglycemic medication. A1c 6.5 today. Add low-dose correction insulin sliding scale with hypoglycemic protocol. BG checks before meals at bedtime. (5) COPD (chronic obstructive pulmonary disease) Current Visit: Yes Status: Chronic Assessment and Plan: Hx of chronic COPD. Stable. Supplemental O2 with titration and SPO2 monitoring. Xopenex IH due to patient's hx of atrial fibrillation. Continue patients inhalers. (6) CAD (coronary artery disease) Current Visit: Yes Status: Chronic Assessment and Plan: Hx of chronic CAD. Continuous cardiac telemetry. Continue patient's Xarelto, amiodarone, Lipitor, Midodrine, and metoprolol. (7) HLD (hyperlipidemia) Current Visit: Yes Status: Chronic Assessment and Plan: Hx of chronic HLD. Continue patient's Lipitor. (8) HTN (hypertension) Current Visit: Yes Status: Chronic Assessment and Plan: Hx of chronic HTN. Monitor patient vital signs. Continue patient's metoprolol and Midodrine. (9) Atrial fibrillation Current Visit: Yes Status: Chronic Assessment and Plan: Hx of paroxysmal atrial fibrillation. Continuous cardiac telemetry. Continue patient's amiodarone and Xarelto. (10) DVT prophylaxis Current Visit: Yes Status: Acute Assessment and Plan: Continue patient's Xarelto for DVT prophylaxis. Monitor patient for signs of bleeding. - Time Spent with Patient Total time spent is greater than 50% in coordination of care (as documented) at patient's floor/unit and/or counseling patient: Greater than 35 minutes Plan of Care Discussed with: patient Internal Medicine: Result - Labs CBC & Chem 7: 02/10/18 04:41 02/11/18 06:55 Labs: BMP 02/11/18 06:55 Sodium 137 Potassium 4.0 Chloride 97 L Carbon Dioxide 32 H BUN 21 Creatinine 1.19 Glucose 110 H Calcium 9.4 Consult Discharge Plan - Plan Referrals: Krish-Edda Banda DO [Primary Care Provider] - 02/14/18 3:45 pm (1) Fluid overload Qualifiers: Hypervolemia type: other Qualified Code(s): E87.79 - Other fluid overload (4) Diabetes mellitus Qualifiers: Diabetes mellitus type: type 2 Diabetes mellitus computer terminal operator insulin use: without halfway use Diabetes mellitus complication status: with neurologic complications (5) COPD (chronic obstructive pulmonary disease) Qualifiers: COPD type: unspecified COPD Qualified Code(s): J44.9 - Chronic obstructive pulmonary disease, unspecified (6) CAD (coronary artery disease) Qualifiers: Coronary Disease-Associated Artery/Lesion type: unspecified vessel or lesion type [place] vs. transplanted heart: [place] heart Associated angina: angina presence unspecified Qualified Code(s): I25.10 - Atherosclerotic heart disease of [place] coronary artery without angina pectoris (7) HLD (hyperlipidemia) Qualifiers: Hyperlipidemia type: pure hypercholesterolemia Qualified Code(s): E78.00 - Pure hypercholesterolemia, unspecified; E78.0 - Pure hypercholesterolemia (8) HTN (hypertension) Qualifiers: Hypertension type: essential hypertension Qualified Code(s): I10 - Essential (primary) hypertension (9) Atrial fibrillation Qualifiers: Atrial fibrillation type: paroxysmal Qualified Code(s): I48.0 - Paroxysmal atrial fibrillation
[2018-02-11] MEDS: (Stiolto Respimat Inhal) IH SCH (10:54)
[2018-02-11] MEDS: Budesonide/Formoterol 80/4.5 MDI IH SCH ×2 (11:11→22:32)
[2018-02-11] MEDS: *HR* OxyCODONE Immed Rel 5 MG TABLET PO PRN (21:23)
[2018-02-11] MEDS: *HR* LORazepam 0.5 MG TABLET PO SCH (21:23)
[2018-02-11] MEDS: traZODone 50 MG TABLET PO SCH (21:23)
[2018-02-11] MEDS: Melatonin 3 MG TABLET PO SCH (21:24)
[2018-02-12] MEDS: Levalbuterol Neb 1.25 MG/3 ML IH SCH ×3 (04:14→15:39)
[2018-02-12 06:06] LABS: Potassium 3.5 mEq/L (3.5-5.1)
[2018-02-12] MEDS: *HR* Amiodarone 200 MG TABLET PO SCH (10:00)
[2018-02-12] MEDS: Gabapentin 400 MG CAPSULE PO SCH (10:00)
[2018-02-12] MEDS: Finasteride 5 MG TABLET PO SCH (10:00)
[2018-02-12] MEDS: *HR* Rivaroxaban 10 MG TABLET PO SCH (10:00)
[2018-02-12] MEDS: Cholecalciferol (D-3) 1,000 UNIT TABLET PO SCH (10:01)
[2018-02-12] MEDS: Aspirin Enteric Coated 81 MG Tablet PO SCH (10:01)
[2018-02-12] MEDS: Spironolactone 25 MG TABLET PO SCH (10:01)
[2018-02-12] MEDS: tiZANidine 4 MG TABLET PO SCH (10:01)
[2018-02-12] MEDS: Furosemide 40 MG TABLET PO SCH (10:03)
[2018-02-12] MEDS: Insulin LISPRO 300 UNITS/3 ML VIAL SQ SCH ×2 (10:05→12:24)
[2018-02-12] MEDS: Fluticasone Propionate Nasal 50 MCG/SPRAY BOTTLE NS SCH (10:05)
[2018-02-12] MEDS: (Stiolto Respimat Inhal) IH SCH (10:26)
[2018-02-12] MEDS: Budesonide/Formoterol 80/4.5 MDI IH SCH (10:27)
[2018-02-12] MEDS: LUBIPROSTONE PO SCH (12:23)
--- NOTE | 2018-02-12 13:14 | Discharge Summary ---
Date of Encounter: 02/12/18 Time of Encounter: 16:24 - Discharge Diagnosis (1) Fluid overload Priority: Primary Status: Acute Qualifiers: Hypervolemia type: other Qualified Code(s): E87.79 - Other fluid overload (2) Acute kidney injury Priority: Primary Status: Resolved (3) Acute on chronic diastolic (congestive) heart failure Priority: Primary Status: Acute (4) Diabetes mellitus Priority: Secondary Status: Chronic Qualifiers: Diabetes mellitus type: type 2 Diabetes mellitus ferry terminal supervisor insulin use: without fpc use Diabetes mellitus complication status: with neurologic complications Qualified Code(s): E11.40 - Type 2 diabetes mellitus with diabetic neuropathy, unspecified (5) COPD (chronic obstructive pulmonary disease) Priority: Secondary Status: Chronic Qualifiers: COPD type: unspecified COPD Qualified Code(s): J44.9 - Chronic obstructive pulmonary disease, unspecified (6) CAD (coronary artery disease) Priority: Secondary Status: Chronic Qualifiers: Coronary Disease-Associated Artery/Lesion type: unspecified vessel or lesion type [place] vs. transplanted heart: [place] heart Associated angina: angina presence unspecified Qualified Code(s): I25.10 - Atherosclerotic heart disease of [place] coronary artery without angina pectoris (7) HLD (hyperlipidemia) Priority: Secondary Status: Chronic Qualifiers: Hyperlipidemia type: pure hypercholesterolemia Qualified Code(s): E78.00 - Pure hypercholesterolemia, unspecified; E78.0 - Pure hypercholesterolemia (8) HTN (hypertension) Priority: Secondary Status: Chronic Qualifiers: Hypertension type: essential hypertension Qualified Code(s): I10 - Essential (primary) hypertension (9) Atrial fibrillation Priority: Secondary Status: Chronic Qualifiers: Atrial fibrillation type: paroxysmal Qualified Code(s): I48.0 - Paroxysmal atrial fibrillation (10) DVT prophylaxis Priority: Primary Status: Acute Hospital course: 68 year old male with past medical history of diastolic congestive heart failure presented fro skilled nursing with weight gain. He reported 35 pound weight gain within 1 week. He also noticed swelling in legs and increased abdominal size. He has been admitted to this hospital twice during the month of December for the same complaint. He was treated with diuretics and was released back to skilled nursing. He also complaint that his abdomen was distended than usual, however, a CT abdomen in December revealed no acute abnormalities, no ascites. upon arrival, the physical exam showed no pulmonary edema, no JVD, but 2+ pitting edema was notice on BLE, Labs showed BNP 101, repeat ECHO showed EF 55%, Mod LVDD. Pt was started on IV lasix. Nephrology was consulted and diuretics regimen was optimized. He continue to lose weight. His weight decreased from 132.6 kg on 02/05 to 125.3 kg on 02/12. Pitting edema on legs has resolved. He is currently euvolemic. Iv lasix has changed to oral. His renal function remains stable. However, he still firmly believes he is still having fluid, and his weight has not back to the baseline. After a lengthy discussion with patient and according to his wish, we will transfer pt to [facility] for further management. [facility] was called and pt was accepted. Time spent discussing smoking cessation with patient: more than 10 minutes - Time Spent with Patient Total time spent providing and/or coordinating discharge services: Greater than 30 minutes - Discharge Medications Home Medications: Aspirin Enteric Coated [Aspirin EC] 81 mg PO DAILY #0 04/09/15 [History] Rivaroxaban [Xarelto] 20 mg PO DAILY #0 04/09/15 [History] Albuterol Sulfate [Proair Hfa] 2 puff IH Q4H PRN 12/14/16 [History] Atorvastatin [Lipitor] 40 mg PO HS 12/14/16 [History] Gabapentin [Neurontin] 400 mg PO BID 12/14/16 [History] Pantoprazole Sodium [Protonix] 40 mg PO DAILY 12/14/16 [History] Polyethylene Glycol 3350 [MiraLAX Powder Bulk 17.9 Oz] 17 gm PO DAILY PRN [History] Tizanidine HCl [Zanaflex] 2 mg PO BID 12/14/16 [History] DULoxetine [Cymbalta] 30 mg PO DAILY 02/14/17 [History] Tamsulosin [Flomax] 0.4 mg PO BID 02/14/17 [History] Amiodarone [Cordarone] 200 mg PO DAILY 07/05/17 [History] Finasteride [Proscar] 5 mg PO DAILY 07/05/17 [History] Memantine HCl 10 mg PO BID 07/05/17 [History] Tiotropium Br/Olodaterol HCl [Stiolto Respimat Inhal [place]] 2 puff IH DAILY 11/17 [History] Cholecalciferol (D-3) [Vitamin D] 2,000 unit PO DAILY 10/04/17 [History] Fluticasone Propionate Nasal [Flonase] 2 spr NS DAILY 10/04/17 [History] Fluticasone/Salmeterol [Advair 250-50 Diskus] 1 puff IH BID 10/04/17 [History] Lubiprostone [Amitiza] 16 mcg PO DAILY 10/04/17 [History] Melatonin [Melatin] 9 mg PO HS 10/04/17 [History] Metoprolol XL (24 HR) Succ [Toprol Xl] 12.5 mg PO QPM 10/04/17 [History] Trazodone HCl 200 mg PO HS 10/04/17 [History] Simethicone [Gas-X] 80 mg PO TID PRN tab.chew 10/30/17 [Rx] Furosemide [Lasix] 20 mg PO DAILY PRN #15 tablet 01/28/18 [Rx] LORazepam [Ativan] 0.5 mg PO HS 10 Days #10 tablet 01/28/18 [Rx] Midodrine [ProAmatine] 5 mg PO BID tablet 01/28/18 [Rx] OxyCODONE Immed Rel [Roxicodone 10 MG] 10 mg PO TID PRN 5 Days #15 tablet [Rx] Allergies/Adverse Reactions: 3 Allergy/AdvReac Type Severity Reaction Status Date / Time IVP DYE Allergy Severe Anaphylaxis Uncoded 01/12/18 18:14 Date of admission: 02/06/18 12:25 Primary care physician: Edda Rm DO Anticipated date of discharge: 02/12/18 - Constitutional Vitals: Temp Pulse Resp BP Pulse Ox 98.0 F 74 18 116/75 92 02/12/18 12:06 02/12/18 12:06 02/12/18 12:06 02/12/18 12:06 02/12/18 12:06 General appearance: Present: cooperative, mild distress (SOB), A&O X 3, pleasant , obese, answers questions appropriately Exam: PHYSICAL EXAMINATION: GENERAL APPEARANCE: The patient is alert, oriented and in no acute distress. HEENT: Head is normocephalic. The sinuses are nontender. Pupils are equal and reactive. The nares are patent. Oropharynx clear without lesions. NECK: Supple without lymphadenopathy. HEART: Regular rate and rhythm. LUNGS: No crackles or wheezes are heard. ABDOMEN: Soft, nontender, nondistended with good bowel sounds heard. Inguinal area is normal. EXTREMITIES: Without cyanosis, clubbing or edema. NEUROLOGICAL: Gross nonfocal. SKIN: Warm and dry without any rash. - Patient Status Disposition: Transfer Critical Access Hosp Condition: Good Functional capacity at discharge: independent ambulation Overall status at discharge: patient is progressing back to baseline - Discharge Instructions Follow Up With: Edda Rm DO [Primary Care Provider] - 02/14/18 3:45 pm Forms: ED Satisfaction Letter - Diet and Activity Activity: increase activity as tolerated Diet: low fat, low cholesterol, low salt diet
[2018-02-12 15:47] VITALS: BP 106/68
== END 2018-02-12 16:05 | disposition critical access hospital (66) | DRG 291 ==
LOC: 3BNU 10:48 → EMEROO 10:48 → 3BNU 15:21
PROVIDERS: ADMIT Hospitalist; ATTEND Hospitalist

== ENCOUNTER 2018-03-14 14:33 | Inpatient (IN) ==
[2018-03-14 15:26] LABS: Basophils % 0.5 %; Eosinophils # 0.4 K/mcL (0.0-0.6); Eosinophils % 6.2 %; Hematocrit 41.3 % (37.5-50.1); Hemoglobin 13.1 g/dL (12.9-16.9); Immature Granulocytes % 0.3 % (0-4); Lymphocytes # 0.9 K/mcL (0.6-4.6); Lymphocytes % 14.8 %; Mean Corpuscular HGB Conc 31.7 g/dL (31.6-35.5); Mean Corpuscular Hemoglobin 29.4 pg (28.0-33.3); Mean Corpuscular Volume 92.8 fL (83.0-100.0); Mean Platelet Volume 9.2 fL (9.4-12.4); Monocytes # 0.7 K/mcL (0.0-1.3); Monocytes % 11.8 %; Neutrophils # 3.9 K/mcL (1.6-8.9); Platelet Count 237 K/mcL (140-400); Red Blood Count 4.45 M/mcL (4.19-5.50); Segmented Neutrophils % 66.4 %
[2018-03-14 15:41] LABS: BUN/Creatinine Ratio 10 (6-26); Blood Urea Nitrogen 13 mg/dL (8-23); Carbon Dioxide 33 mEq/L (23-29); Chloride 100 mEq/L (98-107); Glucose 110 mg/dL (70-105); Osmolality,Calculated 289 (280-300); Potassium 3.6 mEq/L (3.5-5.1); Sodium 139 mEq/L (136-145); eGFR For Non-African Americans 56 (> 60)
[2018-03-14 15:42] LABS: Troponin I < 0.03 ng/mL (< 0.04)
--- NOTE | 2018-03-14 16:03 | Emergency Department Note ---
Disposition Clinical Impression: Peripheral edema Acute exacerbation of CHF (congestive heart failure) Qualifiers: Heart failure type: diastolic Qualified Code(s): I50.33 - Acute on chronic diastolic (congestive) heart failure Disposition: Admitted As Inpatient Condition: Fair General Adult HPI - General Chief complaint: ED Shortness of Breath/Dyspnea Stated complaint: fluid overload Time Seen by Provider: 03/14/18 14:44 Source: patient, EMS Limitations: no limitations - History of Present Illness Pain Scale: 9 - Related Data Home Medications Medication Instructions Recorded Confirmed Aspirin Enteric Coated [Aspirin EC] 81 mg PO DAILY #0 04/09/15 03/14/18 Rivaroxaban [Xarelto] 20 mg PO DAILY #0 04/09/15 03/14/18 Albuterol Sulfate [Proair Hfa] 2 puff IH Q4H PRN 12/14/16 02/05/18 Atorvastatin [Lipitor] 40 mg PO HS 12/14/16 03/14/18 Gabapentin [Neurontin] 400 mg PO BID 12/14/16 03/14/18 Pantoprazole Sodium [Protonix] 40 mg PO DAILY 12/14/16 03/14/18 Polyethylene Glycol 3350 [MiraLAX 17 gm PO DAILY PRN 12/14/16 02/05/18 Powder Bulk 17.9 Oz] Tizanidine HCl [Zanaflex] 2 mg PO BID 12/14/16 03/14/18 DULoxetine [Cymbalta] 30 mg PO DAILY 02/14/17 03/14/18 Tamsulosin [Flomax] 0.4 mg PO BID 02/14/17 02/05/18 Amiodarone [Cordarone] 200 mg PO DAILY 07/05/17 03/14/18 Finasteride [Proscar] 5 mg PO DAILY 07/05/17 03/14/18 Memantine HCl 10 mg PO BID 07/05/17 03/14/18 Tiotropium Br/Olodaterol HCl 2 puff IH DAILY 07/07/17 03/14/18 [Stiolto Respimat Inhal [place]] Cholecalciferol (D-3) [Vitamin D] 2,000 unit PO DAILY 10/04/17 03/14/18 Fluticasone Propionate Nasal 2 spr NS DAILY 10/04/17 02/05/18 [Flonase] Fluticasone/Salmeterol [Advair 1 puff IH BID 10/04/17 02/05/18 250-50 Diskus] Lubiprostone [Amitiza] 16 mcg PO BID 10/04/17 03/14/18 Melatonin [Melatin] 9 mg PO HS 10/04/17 03/14/18 Metoprolol XL (24 HR) Succ [Toprol 12.5 mg PO QPM 10/04/17 03/14/18 Xl] Furosemide [Lasix] 40 mg PO BID 03/14/18 03/14/18 Sennosides/Docusate Sodium 1 tab PO BID PRN 03/14/18 03/14/18 [Docusate Sodium-Senna Tablet] Trazodone HCl 200 mg PO HS 03/14/18 03/14/18 Previous Rx's Medication Instructions Recorded Simethicone [Gas-X] 80 mg PO TID PRN tab.chew 10/30/17 LORazepam [Ativan] 0.5 mg PO HS 10 Days #10 tablet 01/28/18 Midodrine [ProAmatine] 5 mg PO BID tablet 01/28/18 OxyCODONE Immed Rel [Roxicodone 10 10 mg PO TID PRN 5 Days #15 tablet 01/28/18 MG] Allergies Allergy/AdvReac Type Severity Reaction Status Date / Time IVP DYE Allergy Severe Anaphylaxis Uncoded 01/12/18 18:14 Past Medical History - Past Medical History Medical history: Reports: arthritis, atrial fibrillation, CHF, COPD, coronary artery disease, CVA, diabetes, GERD, hyperlipidemia, hypertension, pulmonary embolus, renal disease Surgical history: Reports: cholecystectomy, herniorrhaphy, knee replacement, orthopedic, other, pacemaker/AICD Psychiatric history: Reports: anxiety, depression - Social History Smoking Status: Former smoker Smokeless Tobacco Status: No Alcohol use: Reports: none Drug use: Reports: none Physical Exam - General Limitations: no limitations General appearance: alert, in no apparent distress Course Vital Signs Temperature 98.1 F 03/14/18 14:43 Pulse Rate 82 03/14/18 14:43 Respiratory Rate 18 03/14/18 14:43 Blood Pressure 133/72 03/14/18 14:43 O2 Sat by Pulse Oximetry 99 03/14/18 14:43 Temperature 98.1 F 03/14/18 14:43 Pulse Rate 64 03/14/18 18:11 Respiratory Rate 18 03/14/18 18:11 Blood Pressure 111/73 03/14/18 18:11 O2 Sat by Pulse Oximetry 99 03/14/18 18:11 Oxygen Delivery Oxygen Delivery Room Air Medical Decision Making - Lab Data Result diagrams: 03/14/18 15:07 03/14/18 15:07 Lab Results 03/14/18 03/14/18 03/14/18 Range/Units 15:07 15:07 15:07 WBC 5.9 (4.3-11.1) K/mcL RBC 4.45 (4.19-5.50) M/mcL Hgb 13.1 (12.9-16.9) g/dL Hct 41.3 (37.5-50.1) % MCV 92.8 (83.0-100.0) fL MCH 29.4 (28.0-33.3) pg MCHC 31.7 (31.6-35.5) g/dL RDW 16.0 H (11.5-14.5) % Plt Count 237 (140-400) K/mcL MPV 9.2 L (9.4-12.4) fL Immature Gran % 0.3 (0-4) % Seg Neutrophils % 66.4 % Lymphocytes % 14.8 % Monocytes % 11.8 % Eosinophils % 6.2 % Basophils % 0.5 % Neutrophils # 3.9 (1.6-8.9) K/mcL Lymphocytes # 0.9 (0.6-4.6) K/mcL Monocytes # 0.7 (0.0-1.3) K/mcL Eosinophils # 0.4 (0.0-0.6) K/mcL Basophils # 0.0 (0.0-0.2) K/mcL Sodium 139 (136-145) mEq/L Potassium 3.6 (3.5-5.1) mEq/L Chloride 100 (98-107) mEq/L Carbon Dioxide 33 H (23-29) mEq/L BUN 13 (8-23) mg/dL Creatinine 1.28 (0.70-1.30) mg/dL Est GFR ( Amer) > 60 (> 60) Est GFR (Non-Af Amer) 56 L (> 60) BUN/Creatinine Ratio 10 (6-26) Glucose 110 H (70-105) mg/dL Calculated Osmolality 289 (280-300) Calcium 9.0 (8.6-10.3) mg/dL Troponin I < 0.03 (< 0.04) ng/mL B-Natriuretic Peptide 100 H (Less than 100) pg/mL Attestation Statement - Attestation Attestation: I examined this patient and my medical decision-making was reviewed with the Resident Physician. I agree with the documented findings, disposition and treatment plan as described except to the extent set forth below. 68-year-old male presents to the emergency room via EMS for concerns for peripheral edema. Patient was seen by Dr. Flood with cardiology earlier today. There was a recommendation to increase her his Lasix to 80 mg twice a day. He follows with nephrology. Patient was uncomfortable with doing this so he directed the EMS to bring him to the emergency room for a second opinion. Currently in a nursing facility for rehabilitation purposes. He does have a history of CHF. He also has a history of renal insufficiency and follows with Dr. Wynn. She had just recently increased his Lasix as well to 40 mg twice a day. He denies chest pain. His workup in the ER stable for him with no acute abnormalities. We will consult with nephrology to be sure that they are okay with this 80 twice a day dosing of Lasix. He is in no respiratory distress. His legs are very swollen however. He does have some weeping edema in his feet. Disposition pending at this time based on cardiology and nephrology recommendations.
--- NOTE | 2018-03-14 16:12 | Emergency Department Note ---
Disposition Clinical Impression: Acute exacerbation of CHF (congestive heart failure) Qualifiers: Heart failure type: diastolic Qualified Code(s): I50.33 - Acute on chronic diastolic (congestive) heart failure Disposition: Admitted As Inpatient Condition: Fair Referrals: Krish-Edda Banda DO [Primary Care Provider] - Forms: ED Satisfaction Letter Time of Disposition: 16:58 General Adult HPI - General Chief complaint: ED Shortness of Breath/Dyspnea Stated complaint: fluid overload Time Seen by Provider: 03/14/18 14:44 Source: patient, EMS Limitations: no limitations Nursing Notes Reviewed: Yes Vital Signs Reviewed: Yes - History of Present Illness HPI Narrative: Patient is a 68-year-old male who presents to [facility] ED with a chief complaint of worsening lower extremity edema and 14 pound weight gain over the last 2 weeks. Patient has a past medical history significant for diastolic heart failure. He was seen in his sack repairer office Dr. Flood just prior to arrival. He had been instructed to increase his Lasix dose to 80 mg twice a day and he was worried that his renal function would not be a little tolerated. Patient sees choreography director Dr. Wynn for his chronic kidney disease. States he came to the emergency department for second opinion. Patient denies any chest pain. Intermittently has shortness of breath when he is standing up. Denies any abdominal pain, problems with urination or bowel movements. No fevers/chills, nausea or vomiting. Onset (ago): week(s) (2) Location: lower extremity Pain Severity: moderate Pain Scale: 9 Quality: aching Consistency: constant Improves with: nothing Worsens with: nothing Associated symptoms: Reports: shortness of breath. Denies: chest pain, cough, fever/chills, nausea/vomiting Treatments Prior to Arrival: none - Related Data Home Medications Medication Instructions Recorded Confirmed Aspirin Enteric Coated [Aspirin EC] 81 mg PO DAILY #0 04/09/15 02/05/18 Rivaroxaban [Xarelto] 20 mg PO DAILY #0 04/09/15 02/05/18 Albuterol Sulfate [Proair Hfa] 2 puff IH Q4H PRN 12/14/16 02/05/18 Atorvastatin [Lipitor] 40 mg PO HS 12/14/16 02/05/18 Gabapentin [Neurontin] 400 mg PO BID 12/14/16 02/05/18 Pantoprazole Sodium [Protonix] 40 mg PO DAILY 12/14/16 02/05/18 Polyethylene Glycol 3350 [MiraLAX 17 gm PO DAILY PRN 12/14/16 02/05/18 Powder Bulk 17.9 Oz] Tizanidine HCl [Zanaflex] 2 mg PO BID 12/14/16 02/05/18 DULoxetine [Cymbalta] 30 mg PO DAILY 02/14/17 02/05/18 Tamsulosin [Flomax] 0.4 mg PO BID 02/14/17 02/05/18 Amiodarone [Cordarone] 200 mg PO DAILY 07/05/17 02/05/18 Finasteride [Proscar] 5 mg PO DAILY 07/05/17 02/05/18 Memantine HCl 10 mg PO BID 07/05/17 02/05/18 Tiotropium Br/Olodaterol HCl 2 puff IH DAILY 07/07/17 02/05/18 [Stiolto Respimat Inhal [place]] Cholecalciferol (D-3) [Vitamin D] 2,000 unit PO DAILY 10/04/17 02/05/18 Fluticasone Propionate Nasal 2 spr NS DAILY 10/04/17 02/05/18 [Flonase] Fluticasone/Salmeterol [Advair 1 puff IH BID 10/04/17 02/05/18 250-50 Diskus] Lubiprostone [Amitiza] 16 mcg PO DAILY 10/04/17 02/05/18 Melatonin [Melatin] 9 mg PO HS 10/04/17 02/05/18 Metoprolol XL (24 HR) Succ [Toprol 12.5 mg PO QPM 10/04/17 02/05/18 Xl] Trazodone HCl 200 mg PO HS 10/04/17 02/05/18 Previous Rx's Medication Instructions Recorded Simethicone [Gas-X] 80 mg PO TID PRN tab.chew 10/30/17 Furosemide [Lasix] 20 mg PO DAILY PRN #15 tablet 01/28/18 LORazepam [Ativan] 0.5 mg PO HS 10 Days #10 tablet 01/28/18 Midodrine [ProAmatine] 5 mg PO BID tablet 01/28/18 OxyCODONE Immed Rel [Roxicodone 10 10 mg PO TID PRN 5 Days #15 tablet 01/28/18 MG] Allergies Allergy/AdvReac Type Severity Reaction Status Date / Time IVP DYE Allergy Severe Anaphylaxis Uncoded 01/12/18 18:14 All systems ED: reviewed and negative except as stated. Past Medical History - Past Medical History Attestation: Yes The following information was validated with the patient. Source: patient Medical history: Reports: arthritis, atrial fibrillation, CHF, COPD, coronary artery disease, CVA, diabetes, GERD, hyperlipidemia, hypertension, pulmonary embolus, renal disease Surgical history: Reports: cholecystectomy, herniorrhaphy, knee replacement, orthopedic, other, pacemaker/AICD Psychiatric history: Reports: anxiety, depression - Social History Smoking Status: Former smoker Smokeless Tobacco Status: No Alcohol use: Reports: none Drug use: Reports: none Physical Exam - General Limitations: no limitations General appearance: alert, in no apparent distress - Head Head exam: atraumatic, normocephalic, normal inspection - Eye Eye exam: Present: EOMI - ENT ENT exam: normal exam, normal oropharynx, mucous membranes moist - Neck Neck exam: Present: normal inspection, full ROM, trachea midline - Chest Chest inspection: Present: normal inspection, symmetric chest wall rise - Respiratory Respiratory exam: Present: normal lung sounds bilaterally - Cardiovascular Cardiovascular exam: Present: regular rate, normal rhythm, normal heart sounds - Abdominal Exam Abdominal exam: Present: soft, Non-Tender. Absent: tenderness, distention, guarding, rebound, rigidity - Extremities Exam Extremities exam: Present: tenderness, pedal edema (3+) - Expanded Lower Extremity Exam Lower leg exam: Present: tenderness, swelling (b/l) - Neurological Exam Neurological exam: Present: alert, oriented X3 - Psychiatric Psychiatric exam: Present: normal affect, normal mood - Skin Skin exam: Present: warm, dry, intact, normal color Course Course Narrative: Patient seen and examined. Increased weight gain as well as lower external edema over the last 2 weeks to the point where he is having difficulty walking because of the discomfort. Patient has a history of diastolic heart failure. Cardiopulmonary workup was initiated. - Reevaluation(s) Reevaluation #1: Chest x-ray appears unremarkable. Patient has a mildly elevated BNP of 100. I discussed with patient's sack repairer Dr. Flood who states that he does think the patient would benefit from IV diuresis. 40 mg of IV Lasix ordered. Patient will need his renal function watched carefully since he has gone into renal failure from aggressive diuresis in the past. I discussed with the hospitalist who has accepted patient for admission. Time: 16:56 Vital Signs Temperature 98.1 F 03/14/18 14:43 Pulse Rate 82 03/14/18 14:43 Respiratory Rate 18 03/14/18 14:43 Blood Pressure 133/72 03/14/18 14:43 O2 Sat by Pulse Oximetry 99 03/14/18 14:43 Temperature 98.1 F 03/14/18 14:43 Pulse Rate 70 03/14/18 16:01 Respiratory Rate 18 03/14/18 16:01 Blood Pressure 113/70 03/14/18 16:01 O2 Sat by Pulse Oximetry 99 03/14/18 16:01 Oxygen Delivery Oxygen Delivery Room Air Medical Decision Making - Medical Records Medical records reviewed: Yes I reviewed the patient's medical records. - Lab Data Lab results reviewed: Yes I reviewed the patient's lab results. Result diagrams: 03/14/18 15:07 03/14/18 15:07 Lab Results 03/14/18 03/14/18 03/14/18 Range/Units 15:07 15:07 15:07 WBC 5.9 (4.3-11.1) K/mcL RBC 4.45 (4.19-5.50) M/mcL Hgb 13.1 (12.9-16.9) g/dL Hct 41.3 (37.5-50.1) % MCV 92.8 (83.0-100.0) fL MCH 29.4 (28.0-33.3) pg MCHC 31.7 (31.6-35.5) g/dL RDW 16.0 H (11.5-14.5) % Plt Count 237 (140-400) K/mcL MPV 9.2 L (9.4-12.4) fL Immature Gran % 0.3 (0-4) % Seg Neutrophils % 66.4 % Lymphocytes % 14.8 % Monocytes % 11.8 % Eosinophils % 6.2 % Basophils % 0.5 % Neutrophils # 3.9 (1.6-8.9) K/mcL Lymphocytes # 0.9 (0.6-4.6) K/mcL Monocytes # 0.7 (0.0-1.3) K/mcL Eosinophils # 0.4 (0.0-0.6) K/mcL Basophils # 0.0 (0.0-0.2) K/mcL Sodium 139 (136-145) mEq/L Potassium 3.6 (3.5-5.1) mEq/L Chloride 100 (98-107) mEq/L Carbon Dioxide 33 H (23-29) mEq/L BUN 13 (8-23) mg/dL Creatinine 1.28 (0.70-1.30) mg/dL Est GFR ( Amer) > 60 (> 60) Est GFR (Non-Af Amer) 56 L (> 60) BUN/Creatinine Ratio 10 (6-26) Glucose 110 H (70-105) mg/dL Calculated Osmolality 289 (280-300) Calcium 9.0 (8.6-10.3) mg/dL Troponin I < 0.03 (< 0.04) ng/mL B-Natriuretic Peptide 100 H (Less than 100) pg/mL - Radiology Data Radiology results reviewed: Yes I reviewed the patient's radiology results. Chest X-Ray 03/14/18 14:45 IMPRESSION: No acute cardiopulmonary disease or significant interval change from prior study dated 03/06/2018. D/ / Red Jean / Red Jean Interpreting Provider: Red Jean - EKG Data EKG #1 EKG attestation: Yes I reviewed and interpreted this EKG. EKG results narrative: EKG done at 1447 shows normal sinus rhythm with a rate of [address] elevation or depression noted. Normal axis. Unchanged from prior EKG done 10/2017.
[2018-03-14] MEDS ORDERED: Furosemide 40 MG/4 ML VIAL IVP ONE (16:17)
[2018-03-14] MEDS ORDERED: Acetaminophen 325 MG TABLET PO PRN (18:30)
[2018-03-14] MEDS ORDERED: Naloxone 0.4 MG/ML INJ IVP PRN (18:30)
[2018-03-14] MEDS ORDERED: Simethicone 80 MG TAB.CHEW PO PRN (18:34)
[2018-03-14] MEDS ORDERED: Sennosides/Docusate Sodium TABLET PO PRN (18:34)
--- NOTE | 2018-03-14 19:03 | Internal Med History&Physical ---
Date of Encounter: 03/14/18 Time of Encounter: 17:45 Internal Medicine - H&P: HPI Chief complaint: Leg pain Admitted From: Emergency Dept Plans for Post Hospital Care: Transfer [facility] History of present illness: Mr. Issa is a 68 year old male well known to us due to multiple prior admissions presented to ED due to edema. He was seen in cardiology office today and lasix was increased. Pt was concerned due to prior episodes of renal failure with diuresis. He requested to be sent to ED. He was evaluated and subsequently placed in observation. Mr Issa was brought to ED due to swelling. He stated that over the last few days to weeks he has had increased edema and now has significant pain in his legs. He says they have been weeping and diuresis has not helped. No fever or chills. No erythema. He says he has been very dyspneic with any movement as well. No cough. No CP. No GI issues. He currently is complaining of leg pain due to edema and overall fatigue and weakness. Past Med Surg Social Fam HX - Past Medical History Medical history: arthritis, atrial fibrillation, CHF, COPD, coronary artery disease, CVA, diabetes, GERD, hyperlipidemia, hypertension, pulmonary embolus, renal disease Additional medical history: Pacemaker, emphysema Psychiatric history: anxiety, depression - Past Surgical History Surgical History: cholecystectomy, herniorrhaphy, knee replacement, orthopedic, other, pacemaker/AICD Additional surgical history: Right knee replacement. Cardiac Ablasion. left arm - Social History Smoking Status: Former smoker Smokeless Tobacco Status: No Alcohol use: none Drug use: none - Family History Father Adopted: No Family Member Ethnicity: Non- Living Status: Hx Family Cardiac Disorders: No Hx Family Respiratory Disorders: No Hx Family Cancer: Yes (Leukemia) Hx Family GI Disorders: No Hx Family Endocrine Disorder: No Hx Family Neuromuscular Disorders: No Hx Family Neurologic Disorders: No Hx Family HEENT Disorders: No Hx Family Autoimmune Disorders: No Brother Family Member Ethnicity: Non- Living Status: Still Living Sister Family Member Ethnicity: Non- Living Status: Still Living Mother Adopted: No Family Member Ethnicity: Non- Twin of Family Member: Yes Living Status: Hx Family Cardiac Disorders: Yes (CHF, Afib) Hx Family Respiratory Disorders: No Hx Family Cancer: Yes (Leukemia (father)) Hx Family GI Disorders: No Hx Family Endocrine Disorder: No Hx Family Neuromuscular Disorders: No Hx Family Neurologic Disorders: No Hx Family HEENT Disorders: No Hx Family Autoimmune Disorders: Yes (arthritis) Internal Medicine - H&P: Meds Aspirin Enteric Coated [Aspirin EC] 81 mg PO DAILY #0 04/09/15 [History] Rivaroxaban [Xarelto] 20 mg PO DAILY #0 04/09/15 [History] Albuterol Sulfate [Proair Hfa] 2 puff IH Q4H PRN 12/14/16 [History] Atorvastatin [Lipitor] 40 mg PO HS 12/14/16 [History] Gabapentin [Neurontin] 400 mg PO BID 12/14/16 [History] Pantoprazole Sodium [Protonix] 40 mg PO DAILY 12/14/16 [History] Polyethylene Glycol 3350 [MiraLAX Powder Bulk 17.9 Oz] 17 gm PO DAILY PRN [History] Tizanidine HCl [Zanaflex] 2 mg PO BID 12/14/16 [History] DULoxetine [Cymbalta] 30 mg PO DAILY 02/14/17 [History] Tamsulosin [Flomax] 0.4 mg PO BID 02/14/17 [History] Amiodarone [Cordarone] 200 mg PO DAILY 07/05/17 [History] Finasteride [Proscar] 5 mg PO DAILY 07/05/17 [History] Memantine HCl 10 mg PO BID 07/05/17 [History] Tiotropium Br/Olodaterol HCl [Stiolto Respimat Inhal [place]] 2 puff IH DAILY 11/17 [History] Cholecalciferol (D-3) [Vitamin D] 2,000 unit PO DAILY 10/04/17 [History] Fluticasone Propionate Nasal [Flonase] 2 spr NS DAILY 10/04/17 [History] Fluticasone/Salmeterol [Advair 250-50 Diskus] 1 puff IH BID 10/04/17 [History] Lubiprostone [Amitiza] 16 mcg PO BID 10/04/17 [History] Melatonin [Melatin] 9 mg PO HS 10/04/17 [History] Metoprolol XL (24 HR) Succ [Toprol Xl] 12.5 mg PO QPM 10/04/17 [History] Simethicone [Gas-X] 80 mg PO TID PRN tab.chew 10/30/17 [Rx] LORazepam [Ativan] 0.5 mg PO HS 10 Days #10 tablet 01/28/18 [Rx] Midodrine [ProAmatine] 5 mg PO BID tablet 01/28/18 [Rx] OxyCODONE Immed Rel [Roxicodone 10 MG] 10 mg PO TID PRN 5 Days #15 tablet [Rx] Furosemide [Lasix] 40 mg PO BID 03/14/18 [History] Sennosides/Docusate Sodium [Docusate Sodium-Senna Tablet] 1 tab PO BID PRN 03/14 [History] Trazodone HCl 200 mg PO HS 03/14/18 [History] 3 Allergy/AdvReac Type Severity Reaction Status Date / Time IVP DYE Allergy Severe Anaphylaxis Uncoded 01/12/18 18:14 All Systems PM: A 10-system review of systems was performed and is negative for pertinent findings except as documented above in the HPI. - Constitutional Constitutional: fatigue, lethargy, malaise, weight gain - EENT Eyes: no change in vision, no loss of vision, no pain Ears: no decreased hearing Nose, mouth and throat: dry mouth, no sinus pain - Cardiovascular Cardiovascular ROS IM: dyspnea, dyspnea on exertion, edema, orthopnea, paroxysmal nocturnal dyspnea, no chest pain - Respiratory Respiratory: dyspnea, dyspnea on exertion, no wheezing, no chest congestion, no change in phlegm color - Gastrointestinal Gastrointestinal: bloating, constipation, no abdominal pain, no vomiting - Genitourinary Genitourinary ROS male: no dysuria, no flank pain, no urinary frequency - Musculoskeletal Musculoskeletal ROS IM: no arthralgias, no muscle weakness - Integumentary Integumentary IM: no erythema, no rash, no skin ulcer - Neurological Neurological ROS: no paresthesias, no vertigo, no weakness - Endocrine Endocrine IM: no cold intolerance, no heat intolerance - Hematologic/Lymphatic Hematologic/Lymphatic: no easy bleeding - Allergic/Immunologic Allergic/Immunologic: no throat swelling, no wheezing - Constitutional Vitals: Temp Pulse Resp BP Pulse Ox 98.1 F 64 18 111/73 99 03/14/18 14:43 03/14/18 18:11 03/14/18 18:11 03/14/18 18:11 03/14/18 18:11 General appearance: Present: mild distress, A&O X 3 Exam: See below - Head Head exam: Present: atraumatic, normocephalic - Eye Eye exam: Present: EOMI, conjuntiva pink - ENT ENT exam: Present: mucous membranes dry - Respiratory Respiratory exam: Present: decreased breath sounds. Absent: rhonchi, wheezes - Cardiovascular Cardiovascular exam: Present: irregular rhythm. Absent: tachycardia - GI/Abdominal GI/Abdominal exam: Present: distended, firm. Absent: tenderness - Extremities Exam Extremities exam: Present: tenderness, warm Additional comments: Significant edema with weeping bilateral lower extremities. - Neurological Exam Neurological exam: Present: alert, oriented X3 - Skin Skin exam: Present: warm Internal Med - H&P Results - Labs CBC & Chem 7: 03/14/18 15:07 03/14/18 15:07 - Assessment and plan (1) Fluid overload Current Visit: No Status: Acute Assessment and plan: Pt is significantly volume overloaded. Will start IV Lasix and follow renal function. Consult Nephrology due to patient's prior history. Qualifiers: Hypervolemia type: other Qualified Code(s): E87.79 - Other fluid overload (2) CHF exacerbation Current Visit: Yes Status: Acute Assessment and plan: Pt has known diastolic heart failure. Currently volume overloaded. Diuresing tonight. Continue other home meds Monitor electrolytes and renal function. Qualifiers: Heart failure type: diastolic Qualified Code(s): I50.33 - Acute on chronic diastolic (congestive) heart failure (3) Atrial fibrillation Current Visit: No Status: Chronic Assessment and plan: Currently no issue. Continue Xarelto at this time. Qualifiers: Atrial fibrillation type: paroxysmal Qualified Code(s): I48.0 - Paroxysmal atrial fibrillation (4) CAD (coronary artery disease) Current Visit: No Status: Chronic Assessment and plan: Chronic issue Qualifiers: Coronary Disease-Associated Artery/Lesion type: [place] artery [place] vs. transplanted heart: [place] heart Associated angina: without angina Qualified Code(s): I25.10 - Atherosclerotic heart disease of [place] coronary artery without angina pectoris (5) COPD (chronic obstructive pulmonary disease) Current Visit: No Status: Chronic Assessment and plan: Currently not in exacerbation. Follow symptomatically. Qualifiers: COPD type: unspecified COPD Qualified Code(s): J44.9 - Chronic obstructive pulmonary disease, unspecified (6) Diabetes mellitus Current Visit: No Status: Chronic Assessment and plan: Monitor blood sugars and coverage. Qualifiers: Diabetes mellitus type: type 2 Diabetes mellitus nursing home insulin use: without terminal computer operator use Diabetes mellitus complication status: with neurologic complications Diabetes mellitus complication detail: with polyneuropathy Qualified Code(s): E11.42 - Type 2 diabetes mellitus with diabetic polyneuropathy (7) Chronic respiratory failure with hypoxia Current Visit: No Status: Chronic Assessment and plan: Chronic issue (8) HTN (hypertension) Current Visit: No Status: Chronic Assessment and plan: Chronic issue. Follow and continue meds. Qualifiers: Hypertension type: essential hypertension Qualified Code(s): I10 - Essential (primary) hypertension - Time Spent With Patient Total time spent is greater than 50% in coordination of care (as documented) at patient's floor/unit and/or counseling patient:
[2018-03-14] MEDS ORDERED: Dextrose Gel 15 GM/37.5 ML TUBE PO PRN ×2 (19:28)
[2018-03-14] MEDS ORDERED: *HR* Dextrose 50 % in Water (Syg) 50 ML SYRINGE IVP PRN (19:28)
[2018-03-14] MEDS ORDERED: D5% in Water 1,000 ML IVC PRN (19:28)
[2018-03-14] MEDS: Gabapentin 400 MG CAPSULE PO SCH (20:44)
[2018-03-14] MEDS: Furosemide 40 MG/4 ML VIAL IVP SCH (20:44)
[2018-03-14] MEDS: *HR* LORazepam 0.5 MG TABLET PO SCH (20:44)
[2018-03-14] MEDS: traZODone 50 MG TABLET PO SCH (20:44)
[2018-03-14] MEDS: *HR* Rivaroxaban 10 MG TABLET PO SCH (20:44)
[2018-03-14] MEDS: Melatonin 3 MG TABLET PO SCH (20:44)
[2018-03-14] MEDS: tiZANidine 4 MG TABLET PO SCH (20:45)
[2018-03-14] MEDS: LUBIPROSTONE PO SCH (20:51)
[2018-03-14] MEDS: Insulin LISPRO 300 UNITS/3 ML VIAL SQ SCH (20:51)
[2018-03-14] MEDS: Ipratropium/Albuterol Neb 3 ML IH SCH (21:30)
[2018-03-15] MEDS: Ipratropium/Albuterol Neb 3 ML IH SCH ×4 (03:52→23:28)
[2018-03-15 06:11] LABS: Hematocrit 35.9 % (37.5-50.1); Mean Corpuscular Hemoglobin 29.4 pg (28.0-33.3); Mean Corpuscular Volume 91.8 fL (83.0-100.0); Mean Platelet Volume 9.7 fL (9.4-12.4); Platelet Count 223 K/mcL (140-400); Red Blood Count 3.91 M/mcL (4.19-5.50)
[2018-03-15 06:33] LABS: Hemoglobin 11.5 g/dL (12.9-16.9)
[2018-03-15 06:38] LABS: BUN/Creatinine Ratio 10 (6-26); Blood Urea Nitrogen 13 mg/dL (8-23); Calcium 8.6 mg/dL (8.6-10.3); Carbon Dioxide 32 mEq/L (23-29); Chloride 100 mEq/L (98-107); Glucose 113 mg/dL (70-105); Osmolality,Calculated 289 (280-300); Potassium 3.4 mEq/L (3.5-5.1); Sodium 139 mEq/L (136-145); eGFR For Non-African Americans 55 (> 60)
--- NOTE | 2018-03-15 08:20 | Internal Med Progress Note ---
<Chris Skelton - Last Filed: 03/15/18 16:32> Hospitalist Progress Note - Encounter Date of Encounter: 03/15/18 - Exam Vitals: Temp Pulse Resp BP Pulse Ox 99.2 F 68 17 108/65 94 03/15/18 15:50 03/15/18 15:50 03/15/18 15:50 03/15/18 15:50 03/15/18 15:50 - Assessment and Plan (1) Fluid overload Current Visit: No Status: Acute (2) CHF exacerbation Current Visit: Yes Status: Acute (3) Atrial fibrillation Current Visit: No Status: Chronic (4) CAD (coronary artery disease) Current Visit: No Status: Chronic (5) COPD (chronic obstructive pulmonary disease) Current Visit: No Status: Chronic (6) Diabetes mellitus Current Visit: No Status: Chronic (7) Chronic respiratory failure with hypoxia Current Visit: No Status: Chronic (8) HTN (hypertension) Current Visit: No Status: Chronic - Time Spent with Patient Total time spent is greater than 50% in coordination of care (as documented) at patient's floor/unit and/or counseling patient: Internal Medicine: Result - Labs CBC & Chem 7: 03/15/18 05:27 03/15/18 05:27 Labs: Short CBC 03/15/18 Range/Units 05:27 WBC 6.3 (4.3-11.1) K/mcL Hgb 11.5 L D (12.9-16.9) g/dL Hct 35.9 L (37.5-50.1) % Plt Count 223 (140-400) K/mcL BMP 03/15/18 05:27 Sodium 139 Potassium 3.4 L Chloride 100 Carbon Dioxide 32 H BUN 13 Creatinine 1.30 Glucose 113 H Calcium 8.6 Liver Function 03/15/18 Range/Units 11:23 Total Bilirubin 0.4 (0.3-1.0) mg/dL Direct Bilirubin 0.1 (0.0-0.2) mg/dL AST 15 (13-39) Units/L ALT 23 (7-52) Units/L Alkaline Phosphatase 87 (34-104) Units/L Albumin 3.3 L (3.5-5.7) g/dL Consult Discharge Plan - Plan Referrals: Krish-Edda Banda DO [Primary Care Provider] - - Attending Attestation I examined this patient and my medical decision-making was reviewed with the Resident Physician on 03/15/18. I agree with the documented findings, disposition and treatment plan as described except to the extent set forth below. Mr Issa is currently in observation for fluid overload and CHF exacerbation. He remains moderate to high risk due to potential for worsening clinical status. Mr Issa is doing OK. No fever or chills. Has had some diuresis. Abd still distended. No diarrhea. Tolerating treatment. Renal function remains normal at this time. Exam Alert Comfortable at rest in bed Mucus membranes dry Heart distant Lungs diminished but clear anteriorly Abd distended and soft Edema present I/P 1. Fluid overload 2. CHF Monitor renal function Further diagnoses and plan as above. <Petra Adams N - Last Filed: 03/15/18 17:09> Hospitalist Progress Note - Encounter Date of Encounter: 03/15/18 Time of Encounter: 08:20 - Subjective Interval History: Mr. Issa is a 68-year old male who presented to the ED on 03/14 complaining of bilateral leg pain secondary to edema and worsening generalized weakness/ fatigue. He states that his legs have become increasingly edematous and painful over the last several days. He reports a weight gain of approximately 40lbs in the last 2 weeks. He states that his legs have been swollen nonstop for the last few months, and states that they have never fully gotten better. He says that the swelling worsened so much in the last few days that he was unable to walk or participate in physical therapy. He also noted weeping of bilateral lower extremities/feet.He was seen by Dr. Wynn in nephrology earlier in the week, and states that he was told he would likely end up admitted to the hospital after being evaluated at a cardiology appointment he had scheduled a few days later. He was seen by Dr. Flood in cardiology yesterday afternoon, prior to presentation at the ED. He says that he was instructed to increase his dose of lasix from 40mg BID to 80mg BID and give that a few days to work; however, he states that due to his increasing pain, he felt like he needed to be evaluated and admitted to the hospital for treatment immediately. Initial laboratory studies were significant for [id number]. Chest XR showed no acute cardiopulmonary disease or significant interval change from prior study on 2017. He was admitted for management of CHF exacerbation and started on lasix 40mg IV BID and placed on a fluid-restricted diet. Patient is well-known to the hospitalist service, with several recent admissions with similar presentation. He was started on lasix 40mg IV BID, and has had good urine output (3300mL yesterday). He reports minimal improvement in symptoms today. He continues to have bilateral lower extremity swelling, which is very tender to superficial palpation. There is warmth and erythema of pretibial area of the bilateral lower extremities. Patient denies any shortness of breath or respiratory difficulties. He does complain of skin discoloration across bilateral upper extremities. He says that he was told in the past that it was "uremic torres"; however, patient has normal BUN and serum creatinine. Mr. Issa states that it starts out as an itch, and that the rash shows up after he scratches it. Though it is only present on his arms currently, he states that he has also had it across his torso and stomach in the past. He states that he is eating well, though he does have some mild constipation. He denies any other complaints or concerns at this time. - Exam Vitals: Temp Pulse Resp BP Pulse Ox 98.6 F 69 18 96/63 92 03/15/18 07:48 03/15/18 07:48 03/15/18 07:48 03/15/18 07:48 03/15/18 08:12 Exam: * General: Adult male lying in bed in no acute distress. He is pleasant and conversational. He answers questions appropriately. * HEENT: Atraumatic and normocephalic. Nasal canula in place. * Cardiovascular: Regular rate and rhythm. S1 and S2 present. No murmurs, gallops, or rubs. * Respiratory: CTA bilaterally with diffusely decreased breath sounds. No wheezes, crackles, or rhonchi noted. * Gastrointestinal: Hypoactive bowel sounds x 4 quadrants. Abdomen is soft and distended, with mild generalized tenderness. * Extremities: No clubbing or cyanosis. 2-3+ bilateral LE edema present with pretibial warmth and erythema. Patient is tender to very light superficial palpation. Bilateral upper extremities demonstrate diffuse rash. - Assessment and Plan (1) CHF exacerbation Current Visit: Yes Status: Acute Assessment and Plan: Patient is currently receiving lasix 40mg IVP BID for diuresis. He had good urine output yesterday of 3300mL, and has had output of 1190mL today thus far. He continues to have painful 2-3+ bilateral lower extremity edema. Additionally , his abdomen does appear slightly distended secondary to fluid overload. Plan to continue lasix diuresis as scheduled, with close monitoring of renal function and electrolytes. Patient is on 1.5L fluid restriction, with strict recording of I/Os and daily weights. (2) Fluid overload Current Visit: No Status: Acute Assessment and Plan: Suspect that patient's fluid status is cause of his current CHF exacerbation. He is currently undergoing diuresis. Appreciate nephrology input in management of this patient, particularly considering his prior medical history of recurrent AKIs. (3) COPD (chronic obstructive pulmonary disease) Current Visit: No Status: Chronic Assessment and Plan: Patient does not appear to be in acute exacerbation. Will continue with home regimen of symbicort BID and duonebs Q6H. (4) Atrial fibrillation Current Visit: No Status: Chronic Assessment and Plan: Continue home medication of amiodarone 200mg. (5) HTN (hypertension) Current Visit: No Status: Chronic Assessment and Plan: Continue home medication regimen of metoprolol XL 12.5mg. (6) Diabetes mellitus Current Visit: No Status: Chronic Assessment and Plan: Low-dose sliding scale insulin ACHS. DVT Prophylaxis: Xarelto 20mg daily. - Time Spent with Patient Total time spent is greater than 50% in coordination of care (as documented) at patient's floor/unit and/or counseling patient: Internal Medicine: Result - Labs CBC & Chem 7: 03/15/18 05:27 03/15/18 05:27 Labs: Short CBC 03/15/18 Range/Units 05:27 WBC 6.3 (4.3-11.1) K/mcL Hgb 11.5 L D (12.9-16.9) g/dL Hct 35.9 L (37.5-50.1) % Plt Count 223 (140-400) K/mcL BMP 03/15/18 05:27 Sodium 139 Potassium 3.4 L Chloride 100 Carbon Dioxide 32 H BUN 13 Creatinine 1.30 Glucose 113 H Calcium 8.6 <Chris Skelton - Last Filed: 03/15/18 16:32> (1) Fluid overload Qualifiers: Hypervolemia type: other Qualified Code(s): E87.79 - Other fluid overload (2) CHF exacerbation Qualifiers: Heart failure type: diastolic Qualified Code(s): I50.33 - Acute on chronic diastolic (congestive) heart failure (3) Atrial fibrillation Qualifiers: Atrial fibrillation type: paroxysmal Qualified Code(s): I48.0 - Paroxysmal atrial fibrillation (4) CAD (coronary artery disease) Qualifiers: Coronary Disease-Associated Artery/Lesion type: [place] artery [place] vs. transplanted heart: [place] heart Associated angina: without angina Qualified Code(s): I25.10 - Atherosclerotic heart disease of [place] coronary artery without angina pectoris (5) COPD (chronic obstructive pulmonary disease) Qualifiers: COPD type: unspecified COPD Qualified Code(s): J44.9 - Chronic obstructive pulmonary disease, unspecified (6) Diabetes mellitus Qualifiers: Diabetes mellitus type: type 2 Diabetes mellitus roasterman insulin use: without roasterman use Diabetes mellitus complication status: with neurologic complications Diabetes mellitus complication detail: with polyneuropathy Qualified Code(s): E11.42 - Type 2 diabetes mellitus with diabetic polyneuropathy (8) HTN (hypertension) Qualifiers: Hypertension type: essential hypertension Qualified Code(s): I10 - Essential (primary) hypertension <Petra Adams N - Last Filed: 03/15/18 17:09> (1) CHF exacerbation Qualifiers: Heart failure type: diastolic Qualified Code(s): I50.33 - Acute on chronic diastolic (congestive) heart failure (2) Fluid overload Qualifiers: Hypervolemia type: other Qualified Code(s): E87.79 - Other fluid overload (3) COPD (chronic obstructive pulmonary disease) Qualifiers: COPD type: unspecified COPD Qualified Code(s): J44.9 - Chronic obstructive pulmonary disease, unspecified (4) Atrial fibrillation Qualifiers: Atrial fibrillation type: paroxysmal Qualified Code(s): I48.0 - Paroxysmal atrial fibrillation (5) HTN (hypertension) Qualifiers: Hypertension type: essential hypertension Qualified Code(s): I10 - Essential (primary) hypertension (6) Diabetes mellitus Qualifiers: Diabetes mellitus type: type 2 Diabetes mellitus detention insulin use: without roasterman use Diabetes mellitus complication status: with neurologic complications Diabetes mellitus complication detail: with polyneuropathy Qualified Code(s): E11.42 - Type 2 diabetes mellitus with diabetic polyneuropathy
[2018-03-15] MEDS: Insulin LISPRO 300 UNITS/3 ML VIAL SQ SCH ×4 (08:36→22:02)
[2018-03-15] MEDS: tiZANidine 4 MG TABLET PO SCH ×2 (08:40→22:04)
[2018-03-15] MEDS: Finasteride 5 MG TABLET PO SCH (08:40)
[2018-03-15] MEDS: Aspirin Enteric Coated 81 MG Tablet PO SCH (08:41)
[2018-03-15] MEDS: Furosemide 40 MG/4 ML VIAL IVP SCH ×2 (08:41→17:52)
[2018-03-15] MEDS: Gabapentin 400 MG CAPSULE PO SCH ×2 (08:41→22:04)
[2018-03-15] MEDS: Fluticasone Propionate Nasal 50 MCG/SPRAY BOTTLE NS SCH (08:41)
[2018-03-15] MEDS: *HR* Amiodarone 200 MG TABLET PO SCH (08:41)
[2018-03-15] MEDS: LUBIPROSTONE PO SCH ×2 (08:44→22:03)
[2018-03-15] MEDS: *HR* HYDROcodone/Acet 5/325 mg TABLET PO PRN (09:41)
--- NOTE | 2018-03-15 10:59 | Nephrology Consult Note ---
Date of Encounter: 03/15/18 Time of Encounter: 10:59 Assessment and Plan (1) CKD (chronic kidney disease) stage 3, GFR 30-59 ml/min Current Visit: Yes Status: Acute Is followed by Dr. Wynn in the office. Baseline GFR is 55-60. Strict I/O Avoid nephrotoxins and renal dose all medications. (2) Peripheral edema Current Visit: Yes Status: Acute Continue IV diuresis. 1.5 Liter fluid restriction. (3) Rash Current Visit: Yes Status: Acute Bilat arms covered in small red raised papules/healed scabs. Pt c/o of itching. CMP ordered by primary, spoke with Dr. Adams. Suggest Derm consult if unable to determine etiology. History of Present Illness - Reason for Consult Consult date: 03/15/18 Chronic Kidney Disease - Chief Complaint fluid overload - History of Present Illness Mr. Issa is a 68 year old male who is followed by Dr. Wynn for CKD III. Other PMH: atrial fibrillation, CHF, COPD, coronary artery disease, CVA, diabetes, GERD, hyperlipidemia, hypertension, pulmonary embolus. He was seen yesterday by Dr. Flood and came to ED for second opinion. Dr. Flood suggested increasing his Lasix to 80 mg PO BID, which he did not do because he was worried about his renal function. He admits to a 14 pound weight gain in the last week. He admits to shortness of breath, denies chest pain. Denies nausea/vomiting/diarrhea. He lives in [facility] for now for rehab. He hopes to return home soon. Past Med Surg Social Fam HX - Past Medical History Medical history: arthritis, atrial fibrillation, CHF, COPD, coronary artery disease, CVA, diabetes, GERD, hyperlipidemia, hypertension, pulmonary embolus, renal disease Additional medical history: Pacemaker, emphysema Psychiatric history: anxiety, depression - Past Surgical History Surgical History: cholecystectomy, herniorrhaphy, knee replacement, orthopedic, other, pacemaker/AICD Additional surgical history: Right knee replacement. Cardiac Ablasion. left arm - Social History Smoking Status: Former smoker Smokeless Tobacco Status: No Alcohol use: none Drug use: none - Family History Father Adopted: No Family Member Ethnicity: Non- Living Status: Hx Family Cardiac Disorders: No Hx Family Respiratory Disorders: No Hx Family Cancer: Yes (Leukemia) Hx Family GI Disorders: No Hx Family Endocrine Disorder: No Hx Family Neuromuscular Disorders: No Hx Family Neurologic Disorders: No Hx Family HEENT Disorders: No Hx Family Autoimmune Disorders: No Brother Family Member Ethnicity: Non- Living Status: Still Living Sister Family Member Ethnicity: Non- Living Status: Still Living Mother Adopted: No Family Member Ethnicity: Non- Twin of Family Member: Yes Living Status: Hx Family Cardiac Disorders: Yes (CHF, Afib) Hx Family Respiratory Disorders: No Hx Family Cancer: Yes (Leukemia (father)) Hx Family GI Disorders: No Hx Family Endocrine Disorder: No Hx Family Neuromuscular Disorders: No Hx Family Neurologic Disorders: No Hx Family HEENT Disorders: No Hx Family Autoimmune Disorders: Yes (arthritis) Medications and Allergies Aspirin Enteric Coated [Aspirin EC] 81 mg PO DAILY #0 04/09/15 [History] Rivaroxaban [Xarelto] 20 mg PO DAILY #0 04/09/15 [History] Albuterol Sulfate [Proair Hfa] 2 puff IH Q4H PRN 12/14/16 [History] Atorvastatin [Lipitor] 40 mg PO HS 12/14/16 [History] Gabapentin [Neurontin] 400 mg PO BID 12/14/16 [History] Pantoprazole Sodium [Protonix] 40 mg PO DAILY 12/14/16 [History] Polyethylene Glycol 3350 [MiraLAX Powder Bulk 17.9 Oz] 17 gm PO DAILY PRN [History] Tizanidine HCl [Zanaflex] 2 mg PO BID 12/14/16 [History] DULoxetine [Cymbalta] 30 mg PO DAILY 02/14/17 [History] Tamsulosin [Flomax] 0.4 mg PO BID 02/14/17 [History] Amiodarone [Cordarone] 200 mg PO DAILY 07/05/17 [History] Finasteride [Proscar] 5 mg PO DAILY 07/05/17 [History] Memantine HCl 10 mg PO BID 07/05/17 [History] Tiotropium Br/Olodaterol HCl [Stiolto Respimat Inhal [place]] 2 puff IH DAILY 11/17 [History] Cholecalciferol (D-3) [Vitamin D] 2,000 unit PO DAILY 10/04/17 [History] Fluticasone Propionate Nasal [Flonase] 2 spr NS DAILY 10/04/17 [History] Fluticasone/Salmeterol [Advair 250-50 Diskus] 1 puff IH BID 10/04/17 [History] Lubiprostone [Amitiza] 16 mcg PO BID 10/04/17 [History] Melatonin [Melatin] 9 mg PO HS 10/04/17 [History] Metoprolol XL (24 HR) Succ [Toprol Xl] 12.5 mg PO QPM 10/04/17 [History] Simethicone [Gas-X] 80 mg PO TID PRN tab.chew 10/30/17 [Rx] LORazepam [Ativan] 0.5 mg PO HS 10 Days #10 tablet 01/28/18 [Rx] Midodrine [ProAmatine] 5 mg PO BID tablet 01/28/18 [Rx] OxyCODONE Immed Rel [Roxicodone 10 MG] 10 mg PO TID PRN 5 Days #15 tablet [Rx] Furosemide [Lasix] 40 mg PO BID 03/14/18 [History] Sennosides/Docusate Sodium [Docusate Sodium-Senna Tablet] 1 tab PO BID PRN 03/14 [History] Trazodone HCl 200 mg PO HS 03/14/18 [History] 3 Allergy/AdvReac Type Severity Reaction Status Date / Time IVP DYE Allergy Severe Anaphylaxis Uncoded 01/12/18 18:14 Review of Systems Constitutional: weight gain, no chills, no fatigue, no fever(s) Cardiovascular: dyspnea Gastrointestinal: no diarrhea, no nausea, no vomiting Exam - Vital Signs Vital signs: Initial Vital Signs Temp Pulse Resp BP Pulse Ox 98.1 F 82 18 133/72 99 03/14/18 14:43 03/14/18 14:43 03/14/18 14:43 03/14/18 14:43 03/14/18 14:43 Vital Signs - Last 8 Hours Temp Pulse Resp BP Pulse Ox 03/15/18 10:41 18 91 03/15/18 08:38 98.2 F 72 18 99/64 92 03/15/18 08:12 92 03/15/18 07:48 98.6 F 69 18 96/63 88 03/15/18 03:52 18 90 03/15/18 03:01 99.0 F 72 17 102/66 90 Intake and Output 03/14/18 03/15/18 03/15/18 23:59 07:59 15:59 Intake Total 240 / 240 Output Total 3300 / 3300 Balance -3300 / -3300 240 / 240 Intake: Oral 240 / 240 Output: Catheter 3300 / 3300 Other: Meal Dinner Breakfast Percent of Meal Consumed 10% 95% Stool Size Moderate Stool Consistency soft Stool Color Brown Weight 136 kg Blood Glucose* 116 Patient Weight 03/15/18 23:59 Weight 136 kg - General Appearance General appearance: well-developed, well-nourished EENT: ATNC, hearing intact, vision intact Neck: supple Respiratory: clear Cardiology: edema (+3 pitting edema noted to bilat lower extremities.), normal S1, normal S2 Gastrointestinal: normoactive bowel sounds, no tenderness, no guarding Integumentary: warm and dry Additional Comments: Bilat upper extremities covered in small red raised rash/healed scabs. Pt admits they itch. Neurologic: alert and oriented x3 Psychiatric: mood/affect appropriate, cooperative Results - Lab Results 03/15/18 05:27 03/15/18 05:27 Most recent lab results Calcium 8.6 mg/dL (8.6-10.3) 03/15/18 05:27 Magnesium 2.0 mg/dL (1.6-2.6) 03/15/18 05:27 Consult Discharge Plan - Plan Referrals: Krish-Edda Banda DO [Primary Care Provider] -
[2018-03-15 12:42] LABS: Albumin 3.3 g/dL (3.5-5.7); Albumin/Globulin Ratio 1.2 (1.1-2.2); Bilirubin,Direct 0.1 mg/dL (0.0-0.2); Bilirubin,Indirect 0.3 mg/dL (0.0-1.2); Bilirubin,Total 0.4 mg/dL (0.3-1.0); Globulin 2.7 g/dL (2.4-3.5)
--- NOTE | 2018-03-15 15:51 | Electrocardiograph Report ---
[place] [id number] Test Date: 2018-03-14 Pat Name: Dakota Issa Department: [id number] Room: 3B46 Gender: M Supervisory Investigative Specialist: : [id number] Requested By: Leslie Lawrence Order Number: [id number] Reading MD: Rita Nix Measurements Intervals [place] Rate: 72 P: 55 AL: 182 QRS: 87 QRSD: 109 T: 54 QT: 441 QTc: 483 Interpretive Statements Sinus rhythm Borderline right axis deviation Low voltage, precordial leads Borderline prolonged QT interval Artifact Electronically Signed On 03-15-2018 15:49:58 EDT by Rita Nix
[2018-03-15] MEDS: *HR* Rivaroxaban 10 MG TABLET PO SCH (17:51)
[2018-03-15] MEDS: Metoprolol XL (24 HR) Succ 25 MG TAB.ER.24H PO SCH (17:52)
[2018-03-15] MEDS: *HR* OxyCODONE Immed Rel 5 MG TABLET PO PRN (19:48)
[2018-03-15] MEDS: *HR* LORazepam 0.5 MG TABLET PO SCH (22:04)
[2018-03-15] MEDS: Melatonin 3 MG TABLET PO SCH (22:05)
[2018-03-15] MEDS: traZODone 50 MG TABLET PO SCH (22:05)
[2018-03-16] MEDS: Ipratropium/Albuterol Neb 3 ML IH SCH ×4 (03:37→22:56)
[2018-03-16 06:11] LABS: Basophils % 0.5 %; Eosinophils # 0.3 K/mcL (0.0-0.6); Eosinophils % 5.6 %; Hematocrit 33.9 % (37.5-50.1); Hemoglobin 10.8 g/dL (12.9-16.9); Immature Granulocytes % 0.5 % (0-4); Lymphocytes # 1.4 K/mcL (0.6-4.6); Mean Corpuscular HGB Conc 31.9 g/dL (31.6-35.5); Mean Corpuscular Hemoglobin 28.8 pg (28.0-33.3); Mean Corpuscular Volume 90.4 fL (83.0-100.0); Mean Platelet Volume 9.2 fL (9.4-12.4); Monocytes # 0.6 K/mcL (0.0-1.3); Monocytes % 10.1 %; Neutrophils # 3.3 K/mcL (1.6-8.9); Platelet Count 192 K/mcL (140-400); Red Blood Count 3.75 M/mcL (4.19-5.50); Red Cell Distribution Width 15.9 % (11.5-14.5); Segmented Neutrophils % 58.3 %
[2018-03-16 06:29] LABS: BUN/Creatinine Ratio 12 (6-26); Blood Urea Nitrogen 17 mg/dL (8-23); Calcium 8.6 mg/dL (8.6-10.3); Carbon Dioxide 33 mEq/L (23-29); Chloride 99 mEq/L (98-107); Glucose 112 mg/dL (70-105); Osmolality,Calculated 288 (280-300); Potassium 3.5 mEq/L (3.5-5.1); Sodium 138 mEq/L (136-145); eGFR For Non-African Americans 51 (> 60)
[2018-03-16] MEDS: Insulin LISPRO 300 UNITS/3 ML VIAL SQ SCH ×4 (08:18→21:00)
[2018-03-16] MEDS: Gabapentin 400 MG CAPSULE PO SCH ×2 (08:29→22:40)
[2018-03-16] MEDS: Aspirin Enteric Coated 81 MG Tablet PO SCH (08:29)
[2018-03-16] MEDS: Finasteride 5 MG TABLET PO SCH (08:30)
[2018-03-16] MEDS: *HR* Amiodarone 200 MG TABLET PO SCH (08:30)
[2018-03-16] MEDS: tiZANidine 4 MG TABLET PO SCH ×2 (08:30→22:40)
[2018-03-16] MEDS: Furosemide 40 MG/4 ML VIAL IVP SCH ×2 (08:30→17:16)
[2018-03-16] MEDS: *HR* OxyCODONE Immed Rel 5 MG TABLET PO PRN (08:32)
--- NOTE | 2018-03-16 09:33 | Internal Med Progress Note ---
<Petra Adams N - Last Filed: 03/16/18 15:53> Hospitalist Progress Note - Encounter Date of Encounter: 03/16/18 Time of Encounter: 09:33 - Subjective Interval History: Mr. Issa is a 68-year old male who presented to the ED on 03/14 complaining of bilateral leg pain secondary to edema and worsening generalized weakness/ fatigue. He states that his legs have become increasingly edematous and painful over the last several days. He reports a weight gain of approximately 40lbs in the last 2 weeks. He states that his legs have been swollen nonstop for the last few months, and states that they have never fully gotten better. He says that the swelling worsened so much in the last few days that he was unable to walk or participate in physical therapy. He also noted weeping of bilateral lower extremities/feet.He was seen by Dr. Wynn in nephrology earlier in the week, and states that he was told he would likely end up admitted to the hospital after being evaluated at a cardiology appointment he had scheduled a few days later. He was seen by Dr. Flood in cardiology yesterday afternoon, prior to presentation at the ED. He says that he was instructed to increase his dose of lasix from 40mg BID to 80mg BID and give that a few days to work; however, he states that due to his increasing pain, he felt like he needed to be evaluated and admitted to the hospital for treatment immediately. Initial laboratory studies were significant for [id number]. Chest XR showed no acute cardiopulmonary disease or significant interval change from prior study on 2017. He was admitted for management of CHF exacerbation and started on lasix 40mg IV BID and placed on a fluid-restricted diet. Patient is well-known to the hospitalist service, with several recent admissions with similar presentation. He was started on lasix 40mg IV BID, and has had good urine output (3300mL yesterday). He reports minimal improvement in symptoms today. He continues to have bilateral lower extremity swelling, which is very tender to superficial palpation. There is warmth and erythema of pretibial area of the bilateral lower extremities. Patient denies any shortness of breath or respiratory difficulties. He does complain of skin discoloration across bilateral upper extremities. He says that he was told in the past that it was "uremic torres"; however, patient has normal BUN and serum creatinine. Mr. Issa states that it starts out as an itch, and that the rash shows up after he scratches it. Though it is only present on his arms currently, he states that he has also had it across his torso and stomach in the past. He states that he is eating well, though he does have some mild constipation. He denies any other complaints or concerns at this time. 03/16 - Patient reports some improvement in lower extremity swelling overnight, though he complains of persistent lower leg and foot pain. He denies any acute complaints or concerns, and states that he is eating and drinking well. Nursing staff reports no acute overnight events. - Exam Vitals: Temp Pulse Resp BP Pulse Ox 97.7 F 64 17 96/63 93 03/16/18 07:56 03/16/18 07:56 03/16/18 07:56 03/16/18 07:56 03/16/18 07:56 Exam: * General: Adult male lying in bed in no acute distress. He is pleasant and conversational. He answers questions appropriately. * HEENT: Atraumatic and normocephalic. Nasal canula in place. * Cardiovascular: Regular rate and rhythm. S1 and S2 present. No murmurs, gallops, or rubs. * Respiratory: CTA bilaterally with diffusely decreased breath sounds. No wheezes, crackles, or rhonchi noted. * Gastrointestinal: Hypoactive bowel sounds x 4 quadrants. Abdomen is soft and distended, with mild generalized tenderness. * Extremities: No clubbing or cyanosis. 2+ bilateral LE edema present. Patient is tender to palpation. Bilateral upper extremities demonstrate diffuse rash that appears improved from yesterday. - Assessment and Plan (1) CHF exacerbation Current Visit: Yes Status: Acute Assessment and Plan: Patient is currently receiving lasix 40mg IVP BID for diuresis. He had good urine output yesterday of 3300mL, and has had output of 1190mL today thus far. He continues to have painful 2-3+ bilateral lower extremity edema. Additionally , his abdomen does appear slightly distended secondary to fluid overload. Plan to continue lasix diuresis as scheduled, with close monitoring of renal function and electrolytes. Patient is on 1.5L fluid restriction, with strict recording of I/Os and daily weights. 03/16 - Patient has some improvement in bilateral LE edema, though he remains grossly fluid overloaded. 24-hour I/Os = 1470/1190mL. Patient is continuing to have good urine output. Serum creatinine was mildly increased today at 1.39. Will continue lasix diuresis and fluid restriction, with close watch on serum creatinine. (2) Fluid overload Current Visit: No Status: Acute Assessment and Plan: Suspect that patient's fluid status is cause of his current CHF exacerbation. He is currently undergoing diuresis. Appreciate nephrology input in management of this patient, particularly considering his prior medical history of recurrent AKIs. (3) COPD (chronic obstructive pulmonary disease) Current Visit: No Status: Chronic Assessment and Plan: Patient does not appear to be in acute exacerbation. Will continue with home regimen of symbicort BID and duonebs Q6H. (4) Atrial fibrillation Current Visit: No Status: Chronic Assessment and Plan: Continue home medication of amiodarone 200mg. (5) HTN (hypertension) Current Visit: No Status: Chronic Assessment and Plan: Continue home medication regimen of metoprolol XL 12.5mg. (6) Diabetes mellitus Current Visit: No Status: Chronic Assessment and Plan: Low-dose sliding scale insulin ACHS. DVT Prophylaxis: Xarelto 20mg daily. - Time Spent with Patient Total time spent is greater than 50% in coordination of care (as documented) at patient's floor/unit and/or counseling patient: Internal Medicine: Result - Labs CBC & Chem 7: 03/16/18 05:48 03/16/18 05:48 Labs: Short CBC 03/16/18 Range/Units 05:48 WBC 5.6 (4.3-11.1) K/mcL Hgb 10.8 L (12.9-16.9) g/dL Hct 33.9 L (37.5-50.1) % Plt Count 192 (140-400) K/mcL Neutrophils # 3.3 (1.6-8.9) K/mcL BMP 03/16/18 05:48 Sodium 138 Potassium 3.5 Chloride 99 Carbon Dioxide 33 H BUN 17 Creatinine 1.39 H Glucose 112 H Calcium 8.6 Liver Function 03/15/18 Range/Units 11:23 Total Bilirubin 0.4 (0.3-1.0) mg/dL Direct Bilirubin 0.1 (0.0-0.2) mg/dL AST 15 (13-39) Units/L ALT 23 (7-52) Units/L Alkaline Phosphatase 87 (34-104) Units/L Albumin 3.3 L (3.5-5.7) g/dL Consult Discharge Plan - Plan Referrals: Edda Rm DO [Primary Care Provider] - <Chris Skelton - Last Filed: 03/16/18 16:35> Hospitalist Progress Note - Encounter Date of Encounter: 03/16/18 - Exam Vitals: Temp Pulse Resp BP Pulse Ox 97.5 F L 87 18 116/72 93 03/16/18 16:08 03/16/18 16:08 03/16/18 16:14 03/16/18 16:14 03/16/18 16:14 - Assessment and Plan (1) Fluid overload Current Visit: No Status: Acute (2) CHF exacerbation Current Visit: Yes Status: Acute (3) Atrial fibrillation Current Visit: No Status: Chronic (4) COPD (chronic obstructive pulmonary disease) Current Visit: No Status: Chronic (5) HTN (hypertension) Current Visit: No Status: Chronic (6) Diabetes mellitus Current Visit: No Status: Chronic (7) Rash Current Visit: Yes Status: Acute (8) Anemia Current Visit: No Status: Acute (9) Chronic respiratory failure with hypoxia Current Visit: No Status: Chronic (10) CAD (coronary artery disease) Current Visit: No Status: Chronic - Time Spent with Patient Total time spent is greater than 50% in coordination of care (as documented) at patient's floor/unit and/or counseling patient: Internal Medicine: Result - Labs CBC & Chem 7: 03/16/18 05:48 03/16/18 05:48 - Attending Attestation I examined this patient and my medical decision-making was reviewed with the Resident Physician on 03/16/18. I agree with the documented findings, disposition and treatment plan as described except to the extent set forth below. Mr Issa is currently admitted for fluid overload and CHF. He remains moderate to high risk due to potential for worsening clinical status. Mr Issa is about the same. He still has edema. No fever or chills. No CP. No SOB. Legs still swollen. Rash still present Exam Alert Comfortable Mucus membranes dry Heart reg - not tachy Diminished lung sounds. No rhonchi Abd distended and soft Edema persists I/P 1. Fluid overload 2. CHF exac 3. Rash - most likely needs biopsy Further diagnoses and plan as above. <Petra Adams - Last Filed: 03/16/18 15:53> (1) CHF exacerbation Qualifiers: Heart failure type: diastolic Qualified Code(s): I50.33 - Acute on chronic diastolic (congestive) heart failure (2) Fluid overload Qualifiers: Hypervolemia type: other Qualified Code(s): E87.79 - Other fluid overload (3) COPD (chronic obstructive pulmonary disease) Qualifiers: COPD type: unspecified COPD Qualified Code(s): J44.9 - Chronic obstructive pulmonary disease, unspecified (4) Atrial fibrillation Qualifiers: Atrial fibrillation type: paroxysmal Qualified Code(s): I48.0 - Paroxysmal atrial fibrillation (5) HTN (hypertension) Qualifiers: Hypertension type: essential hypertension Qualified Code(s): I10 - Essential (primary) hypertension (6) Diabetes mellitus Qualifiers: Diabetes mellitus type: type 2 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 Diabetes mellitus complication status: with neurologic complications Diabetes mellitus complication detail: with polyneuropathy Qualified Code(s): E11.42 - Type 2 diabetes mellitus with diabetic polyneuropathy <Chris Skelton - Last Filed: 03/16/18 16:35> (1) Fluid overload Qualifiers: Hypervolemia type: other Qualified Code(s): E87.79 - Other fluid overload (2) CHF exacerbation Qualifiers: Heart failure type: diastolic Qualified Code(s): I50.33 - Acute on chronic diastolic (congestive) heart failure (3) Atrial fibrillation Qualifiers: Atrial fibrillation type: paroxysmal Qualified Code(s): I48.0 - Paroxysmal atrial fibrillation (4) COPD (chronic obstructive pulmonary disease) Qualifiers: COPD type: unspecified COPD Qualified Code(s): J44.9 - Chronic obstructive pulmonary disease, unspecified (5) HTN (hypertension) Qualifiers: Hypertension type: essential hypertension Qualified Code(s): I10 - Essential (primary) hypertension (6) Diabetes mellitus Qualifiers: Diabetes mellitus type: type 2 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 transplanted heart: [place] heart Associated angina: without angina Qualified Code(s): I25.10 - Atherosclerotic heart disease of [place] coronary artery without angina pectoris
[2018-03-16] MEDS: Budesonide/Formoterol 160/4.5 1 PUFF INH IH SCH ×4 (10:07→22:56)
[2018-03-16] MEDS: LUBIPROSTONE PO SCH ×2 (11:30→22:40)
[2018-03-16] MEDS: Fluticasone Propionate Nasal 50 MCG/SPRAY BOTTLE NS SCH (12:12)
[2018-03-16] MEDS: Metoprolol XL (24 HR) Succ 25 MG TAB.ER.24H PO SCH (17:16)
[2018-03-16] MEDS: *HR* Rivaroxaban 10 MG TABLET PO SCH (17:17)
[2018-03-16] MEDS: *HR* LORazepam 0.5 MG TABLET PO SCH (22:38)
[2018-03-16] MEDS: Melatonin 3 MG TABLET PO SCH (22:39)
[2018-03-16] MEDS: traZODone 50 MG TABLET PO SCH (22:40)
[2018-03-17] MEDS: Ipratropium/Albuterol Neb 3 ML IH SCH ×4 (03:51→22:54)
[2018-03-17 07:27] LABS: Basophils % 0.3 %; Eosinophils # 0.3 K/mcL (0.0-0.6); Eosinophils % 4.6 %; Hematocrit 36.4 % (37.5-50.1); Hemoglobin 11.7 g/dL (12.9-16.9); Immature Granulocytes % 0.2 % (0-4); Lymphocytes # 0.9 K/mcL (0.6-4.6); Mean Corpuscular HGB Conc 32.1 g/dL (31.6-35.5); Mean Corpuscular Hemoglobin 29.6 pg (28.0-33.3); Mean Corpuscular Volume 92.2 fL (83.0-100.0); Mean Platelet Volume 9.8 fL (9.4-12.4); Monocytes # 0.6 K/mcL (0.0-1.3); Monocytes % 9.3 %; Neutrophils # 4.3 K/mcL (1.6-8.9); Platelet Count 208 K/mcL (140-400); Red Blood Count 3.95 M/mcL (4.19-5.50); Red Cell Distribution Width 15.6 % (11.5-14.5); Segmented Neutrophils % 70.6 %
[2018-03-17 07:29] LABS: Calcium 8.6 mg/dL (8.6-10.3); Potassium 3.5 mEq/L (3.5-5.1)
[2018-03-17] MEDS: Insulin LISPRO 300 UNITS/3 ML VIAL SQ SCH ×4 (08:06→20:20)
[2018-03-17] MEDS: Furosemide 40 MG/4 ML VIAL IVP SCH (09:32)
[2018-03-17] MEDS: tiZANidine 4 MG TABLET PO SCH ×2 (09:32→20:19)
[2018-03-17] MEDS: Gabapentin 400 MG CAPSULE PO SCH ×2 (09:32→20:19)
[2018-03-17] MEDS: *HR* Amiodarone 200 MG TABLET PO SCH (09:33)
[2018-03-17] MEDS: Fluticasone Propionate Nasal 50 MCG/SPRAY BOTTLE NS SCH (09:35)
[2018-03-17] MEDS: Finasteride 5 MG TABLET PO SCH (09:35)
[2018-03-17] MEDS: LUBIPROSTONE PO SCH ×2 (09:35→20:21)
[2018-03-17] MEDS: Aspirin Enteric Coated 81 MG Tablet PO SCH (09:35)
--- NOTE | 2018-03-17 09:36 | Nephrology Progress Note ---
Date of Encounter: 03/17/18 Time of Encounter: 09:35 - Assessment and Plan (1) Peripheral edema Current Visit: Yes Status: Acute Holding IV diuresis secondary to elevation in creatinine. When diuretics are restarted we will likely use albumin. 1.5 Liter fluid restriction. (2) CKD (chronic kidney disease) stage 3, GFR 30-59 ml/min Current Visit: Yes Status: Acute Is followed by Dr. Wynn in the office. Baseline GFR is 55-60. Strict I/O Avoid nephrotoxins and renal dose all medications. Patient with mild AG likely secondary to furosemide. Will hold and resume furosemide if renal function improves Monday. (3) Rash Current Visit: Yes Status: Acute Bilat arms covered in small red raised papules/healed scabs. Pt c/o of itching. Suggest Derm consult if unable to determine etiology. Subjective Principal diagnosis: AG/volume overload Interval history: The patient was seen and evaluated. He has no new complaint. No chest pain. Objective - Vital Signs Vital signs: Vital Signs Temp Pulse Resp BP Pulse Ox 03/17/18 07:21 97.8 F 66 16 98/63 96 03/17/18 04:17 97.4 F L 66 14 102/66 94 03/17/18 03:51 16 94 03/16/18 23:20 97.6 F 69 14 111/63 94 03/16/18 22:56 16 94 03/16/18 19:07 97.7 F 64 14 97/63 94 03/16/18 16:14 18 116/72 93 03/16/18 16:08 97.5 F L 87 18 116/72 95 Intake and Output 03/16/18 03/17/18 03/17/18 23:59 07:59 15:59 Intake Total 450 / 450 Output Total 1350 / 1350 Balance 450 / 450 -1350 / -1350 Intake: Oral 450 / 450 Output: Catheter 1350 / 1350 Other: Weight 137.4 kg Blood Glucose* 170 121 Patient Weight 03/17/18 23:59 Weight 137.4 kg - General Appearance General appearance: Present: well-developed, well-nourished EENT: Present: ATNC Cardiology: Present: edema Integumentary: Present: warm and dry Neurologic: Present: alert and oriented x3 Musculoskeletal: Present: no cyanosis Psychiatric: Present: mood/affect appropriate - Lab 09/15/18 05:39 03/17/18 05:39 Most recent lab results Calcium 8.6 mg/dL (8.6-10.3) 03/17/18 05:39 Magnesium 2.0 mg/dL (1.6-2.6) 03/15/18 05:27 Consult Discharge Plan - Plan Referrals: Krish-Edda Banda DO [Primary Care Provider] -
[2018-03-17] MEDS: Budesonide/Formoterol 160/4.5 1 PUFF INH IH SCH ×2 (11:14→22:54)
--- NOTE | 2018-03-17 12:46 | Internal Med Progress Note ---
Hospitalist Progress Note - Encounter Date of Encounter: 03/17/18 Time of Encounter: 12:35 - Subjective Interval History: Mr Issa is currently admitted for fluid overload. He remains moderate to high risk due to potential for worsening clinical status. Mr Issa is frustrated about fluid restriction. He doesn't think his legs will ever decrease. No fever or chills. Abd distended but softer. No diarrhea. No CP. No SOB at this time. - Exam Vitals: Temp Pulse Resp BP Pulse Ox 98.0 F 67 16 112/72 95 03/17/18 12:00 03/17/18 12:03/17/18 12:00 03/17/18 12:03/17/18 12:00 Exam: General: Alert and oriented. Comfortable at this time. Lying in bed. Skin: Normal color, no lesions. Still with discoloration on arms. H: Normocephalic. EENT: EOMI, pupils equal, reactive. Mucus membranes moist. No lesion. Cardiovascular: Normal S1 & S2, no rubs, murmurs or gallops. No JVD. Pulse irregular. Very distant heart sounds. Lungs: Normal breath sounds, anteriorly and laterally. No wheeze or rales heard. Abdomen: Soft. Distended. Nontender. Extremities: No deformity, no joint swelling or clubbing. Edema persists though seems less. Neurological: Normal cognition and motor skills. Pulses: Carotid and radial pulses normal +2. Rest of the physical exam is non contributory - Assessment and Plan (1) Fluid overload Current Visit: No Status: Acute Assessment and Plan: Due to CHF exacerbation. Renal function slightly worse today - diuretic on hold. (2) CHF exacerbation Current Visit: Yes Status: Acute Assessment and Plan: Patient is currently receiving lasix 40mg IVP BID for diuresis. He had good urine output yesterday of 3300mL, and has had output of 1190mL today thus far. He continues to have painful 2-3+ bilateral lower extremity edema. Additionally , his abdomen does appear slightly distended secondary to fluid overload. Plan to continue lasix diuresis as scheduled, with close monitoring of renal function and electrolytes. Patient is on 1.5L fluid restriction, with strict recording of I/Os and daily weights. 03/16 - Patient has some improvement in bilateral LE edema, though he remains grossly fluid overloaded. 24-hour I/Os = 1470/1190mL. Patient is continuing to have good urine output. Serum creatinine was mildly increased today at 1.39. Will continue lasix diuresis and fluid restriction, with close watch on serum creatinine. 03/17 - Creatinine has increased more. Diuresis on hold for now. Fluid restiction lessened today. (3) Atrial fibrillation Current Visit: No Status: Chronic Assessment and Plan: Continue home medication of amiodarone 200mg. (4) COPD (chronic obstructive pulmonary disease) Current Visit: No Status: Chronic Assessment and Plan: Patient does not appear to be in acute exacerbation. Will continue with home regimen of symbicort BID and duonebs Q6H. (5) HTN (hypertension) Current Visit: No Status: Chronic Assessment and Plan: Continue home medication regimen of metoprolol XL 12.5mg. (6) Diabetes mellitus Current Visit: No Status: Chronic Assessment and Plan: Low-dose sliding scale insulin ACHS. (7) Rash Current Visit: Yes Status: Acute Assessment and Plan: Persists. Will most likely consult derm on Monday. (8) Anemia Current Visit: No Status: Acute Assessment and Plan: H/H has been stable. (9) Chronic respiratory failure with hypoxia Current Visit: No Status: Chronic Assessment and Plan: Chronic issue (10) CAD (coronary artery disease) Current Visit: No Status: Chronic Assessment and Plan: Chronic issue - Time Spent with Patient Total time spent is greater than 50% in coordination of care (as documented) at patient's floor/unit and/or counseling patient: Internal Medicine: Result - Labs CBC & Chem 7: 03/17/18 05:39 03/17/18 05:39 Labs: Short CBC 03/17/18 Range/Units 05:39 WBC 6.1 (4.3-11.1) K/mcL Hgb 11.7 L (12.9-16.9) g/dL Hct 36.4 L (37.5-50.1) % Plt Count 208 (140-400) K/mcL Neutrophils # 4.3 (1.6-8.9) K/mcL BMP 03/17/18 05:39 Sodium 138 Potassium 3.5 Chloride 97 L Carbon Dioxide 33 H BUN 18 Creatinine 1.52 H Glucose 120 H Calcium 8.6 Consult Discharge Plan - Plan Referrals: Edda Rm DO [Primary Care Provider] - (1) Fluid overload Qualifiers: Hypervolemia type: other Qualified Code(s): E87.79 - Other fluid overload (2) CHF exacerbation Qualifiers: Heart failure type: diastolic Qualified Code(s): I50.33 - Acute on chronic diastolic (congestive) heart failure (3) Atrial fibrillation Qualifiers: Atrial fibrillation type: paroxysmal Qualified Code(s): I48.0 - Paroxysmal atrial fibrillation (4) COPD (chronic obstructive pulmonary disease) Qualifiers: COPD type: unspecified COPD Qualified Code(s): J44.9 - Chronic obstructive pulmonary disease, unspecified (5) HTN (hypertension) Qualifiers: Hypertension type: essential hypertension Qualified Code(s): I10 - Essential (primary) hypertension (6) Diabetes mellitus Qualifiers: Diabetes mellitus type: type 2 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 transplanted heart: [place] heart Associated angina: without angina Qualified Code(s): I25.10 - Atherosclerotic heart disease of [place] coronary artery without angina pectoris
[2018-03-17] MEDS: *HR* OxyCODONE Immed Rel 5 MG TABLET PO PRN (14:39)
[2018-03-17] MEDS: *HR* Rivaroxaban 10 MG TABLET PO SCH (17:31)
[2018-03-17] MEDS: Metoprolol XL (24 HR) Succ 25 MG TAB.ER.24H PO SCH (17:32)
[2018-03-17] MEDS: Melatonin 3 MG TABLET PO SCH (20:19)
[2018-03-17] MEDS: *HR* LORazepam 0.5 MG TABLET PO SCH (20:19)
[2018-03-17] MEDS: traZODone 50 MG TABLET PO SCH (20:21)
[2018-03-18] MEDS: *HR* HYDROcodone/Acet 5/325 mg TABLET PO PRN (03:46)
[2018-03-18] MEDS: Ipratropium/Albuterol Neb 3 ML IH SCH ×4 (03:51→22:44)
[2018-03-18] MEDS: Insulin LISPRO 300 UNITS/3 ML VIAL SQ SCH ×4 (08:28→21:34)
[2018-03-18] MEDS: *HR* Amiodarone 200 MG TABLET PO SCH (08:34)
[2018-03-18] MEDS: *HR* OxyCODONE Immed Rel 5 MG TABLET PO PRN (08:35)
[2018-03-18] MEDS: tiZANidine 4 MG TABLET PO SCH ×2 (08:35→21:35)
[2018-03-18] MEDS: Gabapentin 400 MG CAPSULE PO SCH ×2 (08:35→21:32)
[2018-03-18] MEDS: Finasteride 5 MG TABLET PO SCH (08:35)
[2018-03-18] MEDS: Aspirin Enteric Coated 81 MG Tablet PO SCH (08:35)
[2018-03-18] MEDS: LUBIPROSTONE PO SCH ×2 (08:36→21:35)
[2018-03-18] MEDS: Fluticasone Propionate Nasal 50 MCG/SPRAY BOTTLE NS SCH (08:36)
--- NOTE | 2018-03-18 08:52 | Nephrology Progress Note ---
Date of Encounter: 03/18/18 Time of Encounter: 08:52 - Assessment and Plan (1) Peripheral edema Current Visit: Yes Status: Acute Restart iv lasix with albumin. 1.5 Liter fluid restriction. (2) CKD (chronic kidney disease) stage 3, GFR 30-59 ml/min Current Visit: Yes Status: Acute Is followed by Dr. Wynn in the office. Baseline GFR is 55-60. Strict I/O Avoid nephrotoxins and renal dose all medications. Patient with mild AG likely secondary to furosemide. Renal function improved. Restarted lasix and albumin 03/18/18. (3) Rash Current Visit: Yes Status: Acute Bilat arms covered in small red raised papules/healed scabs. Pt c/o of itching. Suggest Derm consult if unable to determine etiology. Subjective Principal diagnosis: AG/volume overload Interval history: The patient was seen and evaluated. He has no new complaint. No chest pain. Objective - Vital Signs Vital signs: Vital Signs Temp Pulse Resp BP Pulse Ox 03/18/18 07:23 98.3 F 71 18 112/70 94 03/18/18 03:53 98.2 F 67 18 117/78 96 03/18/18 03:51 16 96 03/17/18 23:08 98.0 F 80 19 110/69 93 03/17/18 22:54 16 96 03/17/18 19:09 98.2 F 69 19 101/65 96 03/17/18 15:39 16 95 03/17/18 12:00 98.0 F 67 16 112/72 95 03/17/18 11:15 16 96 Intake and Output 03/17/18 03/18/18 03/18/18 23:59 07:59 15:59 Output Total 400 / 400 Balance -400 / -400 Output: Catheter 400 / 400 Other: Stool Size Large Stool Consistency formed Stool Characteristics Normal for Patient Stool Color Brown # Bowel Movements 1 Weight 137.2 kg Blood Glucose* 174 136 Patient Weight 03/18/18 23:59 Weight 137.2 kg - General Appearance General appearance: Present: well-developed, well-nourished EENT: Present: ATNC Neck: Present: supple Respiratory: Present: course breath sounds Cardiology: Present: edema, regular rate Integumentary: Present: warm and dry Neurologic: Present: alert and oriented x3 Psychiatric: Present: mood/affect appropriate - Lab 03/17/18 05:39 03/18/18 09:47 Most recent lab results Calcium 8.6 mg/dL (8.6-10.3) 03/17/18 05:39 Magnesium 2.0 mg/dL (1.6-2.6) 03/15/18 05:27 Consult Discharge Plan - Plan Referrals: Krish-Edda Banda DO [Primary Care Provider] -
[2018-03-18] MEDS: Budesonide/Formoterol 160/4.5 1 PUFF INH IH SCH ×2 (10:30→22:44)
[2018-03-18 10:36] LABS: BUN/Creatinine Ratio 14 (6-26); Blood Urea Nitrogen 20 mg/dL (8-23); Calcium 8.7 mg/dL (8.6-10.3); Carbon Dioxide 33 mEq/L (23-29); Chloride 100 mEq/L (98-107); Glucose 125 mg/dL (70-105); Osmolality,Calculated 292 (280-300); Potassium 3.5 mEq/L (3.5-5.1); Sodium 139 mEq/L (136-145); eGFR For Non-African Americans 50 (> 60)
[2018-03-18] MEDS: hydrOXYzine pamoate 25 MG CAPSULE PO PRN (12:06)
--- NOTE | 2018-03-18 17:15 | Internal Med Progress Note ---
Hospitalist Progress Note - Encounter Date of Encounter: 03/18/18 Time of Encounter: 11:30 - Subjective Interval History: Mr Issa is currently admitted for fluid overload. He remains moderate to high risk due to potential for worsening clinical status. Mr Issa is having a lot of itching. His legs are excoriated. Rash still on arms. No fever or chills. No CP. Edema and breathing somewhat better. - Exam Vitals: Temp Pulse Resp BP Pulse Ox 97.9 F 68 18 97/54 93 03/18/18 11:47 03/18/18 11:47 03/18/18 15:56 03/18/18 15:56 03/18/18 15:56 Exam: General: Alert and oriented. Comfortable at this time. Lying in bed. Skin: Normal color, no lesions. Still with discoloration on arms. Excoriations on legs with some bleeding. H: Normocephalic. EENT: EOMI, pupils equal, reactive. Mucus membranes moist. No lesion. Cardiovascular: Normal S1 & S2, no rubs, murmurs or gallops. No JVD. Pulse irregular. Very distant heart sounds. Lungs: Normal breath sounds. No wheeze or rales heard. Abdomen: Soft. Distended. Nontender. Extremities: No deformity, no joint swelling or clubbing. Edema persists. Neurological: Normal cognition and motor skills. Pulses: Carotid and radial pulses normal +2. Rest of the physical exam is non contributory - Assessment and Plan (1) Rash Current Visit: Yes Status: Acute Assessment and Plan: Continues to be an issue. Significant pruritus. Atarax added. Derm consult tomorrow. (2) Fluid overload Current Visit: No Status: Acute Assessment and Plan: Due to CHF exacerbation. Renal function a little better. Appreciate nephrology input. (3) CHF exacerbation Current Visit: Yes Status: Acute Assessment and Plan: Patient is currently receiving lasix 40mg IVP BID for diuresis. He had good urine output yesterday of 3300mL, and has had output of 1190mL today thus far. He continues to have painful 2-3+ bilateral lower extremity edema. Additionally , his abdomen does appear slightly distended secondary to fluid overload. Plan to continue lasix diuresis as scheduled, with close monitoring of renal function and electrolytes. Patient is on 1.5L fluid restriction, with strict recording of I/Os and daily weights. 03/16 - Patient has some improvement in bilateral LE edema, though he remains grossly fluid overloaded. 24-hour I/Os = 1470/1190mL. Patient is continuing to have good urine output. Serum creatinine was mildly increased today at 1.39. Will continue lasix diuresis and fluid restriction, with close watch on serum creatinine. 03/17 - Creatinine has increased more. Diuresis on hold for now. Fluid restiction lessened today. 03/18 - Breathing well today. Still with a lot of edema. Lasix per nephrology. (4) Atrial fibrillation Current Visit: No Status: Chronic Assessment and Plan: Continue home medication of amiodarone 200mg. (5) COPD (chronic obstructive pulmonary disease) Current Visit: No Status: Chronic Assessment and Plan: Patient does not appear to be in acute exacerbation. Will continue with home regimen of symbicort BID and duonebs Q6H. (6) HTN (hypertension) Current Visit: No Status: Chronic Assessment and Plan: Continue home medication regimen of metoprolol XL 12.5mg. (7) Diabetes mellitus Current Visit: No Status: Chronic Assessment and Plan: Low-dose sliding scale insulin ACHS. (8) Anemia Current Visit: No Status: Acute Assessment and Plan: H/H has been stable. (9) Chronic respiratory failure with hypoxia Current Visit: No Status: Chronic Assessment and Plan: Chronic issue (10) CAD (coronary artery disease) Current Visit: No Status: Chronic Assessment and Plan: Chronic issue - Time Spent with Patient Total time spent is greater than 50% in coordination of care (as documented) at patient's floor/unit and/or counseling patient: Internal Medicine: Result - Labs CBC & Chem 7: 03/17/18 05:39 03/18/18 09:47 Labs: BMP 03/18/18 09:47 Sodium 139 Potassium 3.5 Chloride 100 Carbon Dioxide 33 H BUN 20 Creatinine 1.40 H Glucose 125 H Calcium 8.7 Consult Discharge Plan - Plan Referrals: Krish-Edda Banda DO [Primary Care Provider] - (2) Fluid overload Qualifiers: Hypervolemia type: other Qualified Code(s): E87.79 - Other fluid overload (3) CHF exacerbation Qualifiers: Heart failure type: diastolic Qualified Code(s): I50.33 - Acute on chronic diastolic (congestive) heart failure (4) Atrial fibrillation Qualifiers: Atrial fibrillation type: paroxysmal Qualified Code(s): I48.0 - Paroxysmal atrial fibrillation (5) COPD (chronic obstructive pulmonary disease) Qualifiers: COPD type: unspecified COPD Qualified Code(s): J44.9 - Chronic obstructive pulmonary disease, unspecified (6) HTN (hypertension) Qualifiers: Hypertension type: essential hypertension Qualified Code(s): I10 - Essential (primary) hypertension (7) Diabetes mellitus Qualifiers: Diabetes mellitus type: type 2 Diabetes mellitus senior care insulin use: without senior care use Diabetes mellitus complication status: with neurologic complications Diabetes mellitus complication detail: with polyneuropathy Qualified Code(s): E11.42 - Type 2 diabetes mellitus with diabetic polyneuropathy (8) Anemia Qualifiers: Anemia type: other cause Other causes of anemia: chronic disease, other Qualified Code(s): D63.8 - Anemia in other chronic diseases classified elsewhere (10) CAD (coronary artery disease) Qualifiers: Coronary Disease-Associated Artery/Lesion type: [place] artery [place] vs. transplanted heart: [place] heart Associated angina: without angina Qualified Code(s): I25.10 - Atherosclerotic heart disease of [place] coronary artery without angina pectoris
[2018-03-18] MEDS: Furosemide 40 MG/4 ML VIAL IVP SCH (17:51)
[2018-03-18] MEDS: *HR* Rivaroxaban 10 MG TABLET PO SCH (17:51)
[2018-03-18] MEDS: Metoprolol XL (24 HR) Succ 25 MG TAB.ER.24H PO SCH (17:52)
[2018-03-18] MEDS: Albumin 25% 25gram/100mL 25 GM/100 ML IV.SOLN IVPB SCH (21:21)
[2018-03-18] MEDS: *HR* LORazepam 0.5 MG TABLET PO SCH (21:26)
[2018-03-18] MEDS: traZODone 50 MG TABLET PO SCH (21:32)
[2018-03-18] MEDS: Melatonin 3 MG TABLET PO SCH (21:33)
[2018-03-19] MEDS: Ipratropium/Albuterol Neb 3 ML IH SCH ×4 (04:23→21:30)
[2018-03-19] MEDS: *HR* OxyCODONE Immed Rel 5 MG TABLET PO PRN ×4 (05:37→23:31)
[2018-03-19 07:50] LABS: BUN/Creatinine Ratio 17 (6-26); Blood Urea Nitrogen 20 mg/dL (8-23); Carbon Dioxide 35 mEq/L (23-29); Chloride 97 mEq/L (98-107); Glucose 112 mg/dL (70-105); Magnesium 2.1 mg/dL (1.6-2.6); Osmolality,Calculated 291 (280-300); Potassium 3.3 mEq/L (3.5-5.1); Sodium 139 mEq/L (136-145); eGFR For Non-African Americans > 60 (> 60)
--- NOTE | 2018-03-19 09:02 | Internal Med Progress Note ---
<Petra Adams N - Last Filed: 03/19/18 10:36> Hospitalist Progress Note - Encounter Date of Encounter: 03/19/18 Time of Encounter: 09:02 - Subjective Interval History: Mr. Issa is a 68-year old male who presented to the ED on 03/14 complaining of bilateral leg pain secondary to edema and worsening generalized weakness/ fatigue. He states that his legs have become increasingly edematous and painful over the last several days. He reports a weight gain of approximately 40lbs in the last 2 weeks. He states that his legs have been swollen nonstop for the last few months, and states that they have never fully gotten better. He says that the swelling worsened so much in the last few days that he was unable to walk or participate in physical therapy. He also noted weeping of bilateral lower extremities/feet.He was seen by Dr. Wynn in nephrology earlier in the week, and states that he was told he would likely end up admitted to the hospital after being evaluated at a cardiology appointment he had scheduled a few days later. He was seen by Dr. lFood in cardiology yesterday afternoon, prior to presentation at the ED. He says that he was instructed to increase his dose of lasix from 40mg BID to 80mg BID and give that a few days to work; however, he states that due to his increasing pain, he felt like he needed to be evaluated and admitted to the hospital for treatment immediately. Initial laboratory studies were significant for VGI=[id number]. Chest XR showed no acute cardiopulmonary disease or significant interval change from prior study on 2017. He was admitted for management of CHF exacerbation and started on lasix 40mg IV BID and placed on a fluid-restricted diet. Patient is well-known to the hospitalist service, with several recent admissions with similar presentation. He was started on lasix 40mg IV BID, and has had good urine output (3300mL yesterday). He reports minimal improvement in symptoms today. He continues to have bilateral lower extremity swelling, which is very tender to superficial palpation. There is warmth and erythema of pretibial area of the bilateral lower extremities. Patient denies any shortness of breath or respiratory difficulties. He does complain of skin discoloration across bilateral upper extremities. He says that he was told in the past that it was "uremic torres"; however, patient has normal BUN and serum creatinine. Mr. Issa states that it starts out as an itch, and that the rash shows up after he scratches it. Though it is only present on his arms currently, he states that he has also had it across his torso and stomach in the past. He states that he is eating well, though he does have some mild constipation. He denies any other complaints or concerns at this time. 03/16 - Patient reports some improvement in lower extremity swelling overnight, though he complains of persistent lower leg and foot pain. He denies any acute complaints or concerns, and states that he is eating and drinking well. Nursing staff reports no acute overnight events. 03/19 - Patient reports continued LE edema. He has had persistent itching of bilateral LE, which is worse on the left. Over the weekend, he has been scratching extensively, and there are numerous excoriations present on the left lower extremity. He reports tenderness in this area as well. He complains of increasing abdominal fullness and gas pain. Nursing staff reported acute-onset nausea and vomiting during the morning. - Exam Vitals: Temp Pulse Resp BP Pulse Ox 98.1 F 80 16 122/74 94 03/19/18 07:01 03/19/18 07:01 03/19/18 07:01 03/19/18 07:01 03/19/18 07:01 Exam: * General: Adult male lying in bed in no acute distress. He is pleasant and conversational. He answers questions appropriately. * HEENT: Atraumatic and normocephalic. Nasal canula in place. * Cardiovascular: Regular rate and rhythm. S1 and S2 present. No murmurs, gallops, or rubs. * Respiratory: CTA bilaterally with diffusely decreased breath sounds. No wheezes, crackles, or rhonchi noted. * Gastrointestinal: Hypoactive bowel sounds x 4 quadrants. Abdomen is distended , with mild LLQ tenderness. * Extremities: No clubbing or cyanosis. 2+ bilateral LE edema present. Patient is tender to palpation Bilateral pretibial erythema present. Bilateral upper extremities demonstrate diffuse rash. Left lower extremity demonstrates numerous excoriations. - Assessment and Plan (1) CHF exacerbation Current Visit: Yes Status: Acute Assessment and Plan: Patient is currently receiving lasix 40mg IVP BID for diuresis. He had good urine output yesterday of 3300mL, and has had output of 1190mL today thus far. He continues to have painful 2-3+ bilateral lower extremity edema. Additionally , his abdomen does appear slightly distended secondary to fluid overload. Plan to continue lasix diuresis as scheduled, with close monitoring of renal function and electrolytes. Patient is on 1.5L fluid restriction, with strict recording of I/Os and daily weights. 03/16 - Patient has some improvement in bilateral LE edema, though he remains grossly fluid overloaded. 24-hour I/Os = 1470/1190mL. Patient is continuing to have good urine output. Serum creatinine was mildly increased today at 1.39. Will continue lasix diuresis and fluid restriction, with close watch on serum creatinine. 03/17 - Creatinine has increased more. Diuresis on hold for now. Fluid restriction lessened today. 03/18 - Breathing well today. Still with a lot of edema. Lasix per nephrology. 03/19 - Patient demonstrates persistent bilateral LE edema that is tender to palpation. I/Os = 1200/2475mL (-1275mL). Plan to continue lasix 40mg IV BID and fluid-restricted diet. (2) Fluid overload Current Visit: No Status: Acute Assessment and Plan: Suspect that patient's fluid status is cause of his current CHF exacerbation. He is currently undergoing diuresis. Appreciate nephrology input in management of this patient, particularly considering his prior medical history of recurrent AKIs. (3) COPD (chronic obstructive pulmonary disease) Current Visit: No Status: Chronic Assessment and Plan: Patient does not appear to be in acute exacerbation. Will continue with home regimen of symbicort BID and duonebs Q6H. (4) Atrial fibrillation Current Visit: No Status: Chronic Assessment and Plan: Continue home medication of amiodarone 200mg and antiocoagulation with xarelto 20mg. (5) HTN (hypertension) Current Visit: No Status: Chronic Assessment and Plan: Continue home medication of metoprolol XL 12.5mg. (6) Diabetes mellitus Current Visit: No Status: Chronic Assessment and Plan: Low-dose sliding scale insulin ACHS. Blood glucose has been well-controlled during this hospitalization. (7) Rash Current Visit: Yes Status: Acute Assessment and Plan: Patient reports a very puritic rash that has been present for some time. He states that it starts with itching and the rash becomes visible after scratching. He reports having had this rash across his abdomen and torso in the past. He states that he has been told before that it is "uremic torres"; however , his renal function is WNL. Over the weekend, patient developed severe puritis of his lower extremities, and has been scratching frequently. There are extensive excoriations on his left lower extremity. Dermatology consultation pending. DVT Prophylaxis: Xarelto 20mg daily. - Time Spent with Patient Total time spent is greater than 50% in coordination of care (as documented) at patient's floor/unit and/or counseling patient: Internal Medicine: Result - Labs CBC & Chem 7: 03/17/18 05:39 03/19/18 06:34 Labs: BMP 03/18/18 03/19/18 09:47 06:34 Sodium 139 139 Potassium 3.5 3.3 L Chloride 100 97 L Carbon Dioxide 33 H 35 H BUN 20 20 Creatinine 1.40 H 1.19 Glucose 125 H 112 H Calcium 8.7 9.0 Consult Discharge Plan - Plan Referrals: Krish-Edda Banda DO [Primary Care Provider] - <Chris Skelton - Last Filed: 03/19/18 15:04> Hospitalist Progress Note - Encounter Date of Encounter: 03/19/18 - Exam Vitals: Temp Pulse Resp BP Pulse Ox 98.6 F 83 17 154/87 93 03/19/18 11:26 03/19/18 11:26 03/19/18 11:26 03/19/18 11:26 03/19/18 11:26 - Assessment and Plan (1) Fluid overload Current Visit: No Status: Acute (2) CHF exacerbation Current Visit: Yes Status: Acute (3) Atrial fibrillation Current Visit: No Status: Chronic (4) COPD (chronic obstructive pulmonary disease) Current Visit: No Status: Chronic (5) HTN (hypertension) Current Visit: No Status: Chronic (6) Diabetes mellitus Current Visit: No Status: Chronic (7) Rash Current Visit: Yes Status: Acute (8) Abdominal distension Current Visit: No Status: Acute (9) CAD (coronary artery disease) Current Visit: No Status: Chronic - Time Spent with Patient Total time spent is greater than 50% in coordination of care (as documented) at patient's floor/unit and/or counseling patient: Internal Medicine: Result - Labs CBC & Chem 7: 03/17/18 05:39 03/19/18 06:34 Labs: BMP 03/19/18 06:34 Sodium 139 Potassium 3.3 L Chloride 97 L Carbon Dioxide 35 H BUN 20 Creatinine 1.19 Glucose 112 H Calcium 9.0 - Attending Attestation I examined this patient and my medical decision-making was reviewed with the Resident Physician on 03/19/18. I agree with the documented findings, disposition and treatment plan as described except to the extent set forth below. Mr Issa is currently admitted for fluid overload, CHF and monitoring of renal function. He has significant pruritus. He remains moderate to high risk due to potential for worsening clinical status. Mr Issa is less itchy and says the Atarax has helped. No fever or chills. Still with edema. Renal function has improved. No CP. No GI issues. Still with rash on arms as well as excoriations on legs. Exam alert Comfortable in bed Mucus membranes dry Heart reg - not tachy No wheeze abd distended. Edema present. Excoriations on legs, L greater than R. I/P 1. Fluid overload 2. Pruritus Further diagnoses and plan as above. <Petra Adams N - Last Filed: 03/19/18 10:36> (1) CHF exacerbation Qualifiers: Heart failure type: diastolic Qualified Code(s): I50.33 - Acute on chronic diastolic (congestive) heart failure (2) Fluid overload Qualifiers: Hypervolemia type: other Qualified Code(s): E87.79 - Other fluid overload (3) COPD (chronic obstructive pulmonary disease) Qualifiers: COPD type: unspecified COPD Qualified Code(s): J44.9 - Chronic obstructive pulmonary disease, unspecified (4) Atrial fibrillation Qualifiers: Atrial fibrillation type: paroxysmal Qualified Code(s): I48.0 - Paroxysmal atrial fibrillation (5) HTN (hypertension) Qualifiers: Hypertension type: essential hypertension Qualified Code(s): I10 - Essential (primary) hypertension (6) Diabetes mellitus Qualifiers: Diabetes mellitus type: type 2 Diabetes mellitus nursing home insulin use: without termite technician use Diabetes mellitus complication status: with neurologic complications Diabetes mellitus complication detail: with polyneuropathy Qualified Code(s): E11.42 - Type 2 diabetes mellitus with diabetic polyneuropathy <Chris Skelton - Last Filed: 03/19/18 15:04> (1) Fluid overload Qualifiers: Hypervolemia type: other Qualified Code(s): E87.79 - Other fluid overload (2) CHF exacerbation Qualifiers: Heart failure type: diastolic Qualified Code(s): I50.33 - Acute on chronic diastolic (congestive) heart failure (3) Atrial fibrillation Qualifiers: Atrial fibrillation type: paroxysmal Qualified Code(s): I48.0 - Paroxysmal atrial fibrillation (4) COPD (chronic obstructive pulmonary disease) Qualifiers: COPD type: unspecified COPD Qualified Code(s): J44.9 - Chronic obstructive pulmonary disease, unspecified (5) HTN (hypertension) Qualifiers: Hypertension type: essential hypertension Qualified Code(s): I10 - Essential (primary) hypertension (6) Diabetes mellitus Qualifiers: Diabetes mellitus type: type 2 Diabetes mellitus nursing home insulin use: without nursing home use Diabetes mellitus complication status: with neurologic complications Diabetes mellitus complication detail: with polyneuropathy Qualified Code(s): E11.42 - Type 2 diabetes mellitus with diabetic polyneuropathy (9) CAD (coronary artery disease) Qualifiers: Coronary Disease-Associated Artery/Lesion type: [place] artery [place] vs. transplanted heart: [place] heart Associated angina: without angina Qualified Code(s): I25.10 - Atherosclerotic heart disease of [place] coronary artery without angina pectoris
[2018-03-19] MEDS: Insulin LISPRO 300 UNITS/3 ML VIAL SQ SCH ×4 (10:07→20:54)
[2018-03-19] MEDS: LUBIPROSTONE PO SCH ×2 (10:08→20:54)
[2018-03-19] MEDS: tiZANidine 4 MG TABLET PO SCH ×2 (10:18→20:52)
[2018-03-19] MEDS: Gabapentin 400 MG CAPSULE PO SCH ×2 (10:18→20:52)
[2018-03-19] MEDS: *HR* Amiodarone 200 MG TABLET PO SCH (10:18)
[2018-03-19] MEDS: Finasteride 5 MG TABLET PO SCH (10:18)
[2018-03-19] MEDS: Aspirin Enteric Coated 81 MG Tablet PO SCH (10:18)
[2018-03-19] MEDS: Fluticasone Propionate Nasal 50 MCG/SPRAY BOTTLE NS SCH (10:19)
--- NOTE | 2018-03-19 10:44 | Nephrology Progress Note ---
Date of Encounter: 03/19/18 Time of Encounter: 10:40 - Assessment and Plan (1) Peripheral edema Current Visit: Yes Status: Acute Restart IV lasix with albumin, continue this regimen. Would recommend transitioning to PO lasix maybe tomorrow. 1.5 Liter fluid restriction. (2) CKD (chronic kidney disease) stage 3, GFR 30-59 ml/min Current Visit: Yes Status: Acute Is followed by Dr. Wynn in the office. Baseline GFR is 55-60. Strict I/O Avoid nephrotoxins and renal dose all medications. Patient with mild AG likely secondary to furosemide. Renal function improved. Restarted lasix and albumin 03/18/18. (3) Rash Current Visit: Yes Status: Acute Bilat arms covered in small red raised papules/healed scabs. Pt c/o of itching. Derm recommendations appreciated. Subjective Principal diagnosis: AG/volume overload Interval history: Pt seen and examined. Just had one episode of emesis. Denies CP, admits to shortness of breath. Objective - Vital Signs Vital signs: Vital Signs Temp Pulse Resp BP Pulse Ox 03/19/18 07:01 98.1 F 80 16 122/74 94 03/19/18 03:40 98.7 F 78 16 118/77 93 03/18/18 23:00 98.0 F 68 16 104/68 96 03/18/18 21:41 2 03/18/18 18:56 97.5 F L 74 16 130/81 96 03/18/18 15:56 18 97/54 93 03/18/18 11:47 97.9 F 68 18 97/54 93 Intake and Output 03/18/18 03/19/18 03/19/18 23:59 07:59 15:59 Intake Total 340 / 340 280 / 280 Output Total 2075 / 2075 450 / 450 Balance -1735 / -1735 -170 / -170 Intake: Oral 240 / 240 280 / 280 Free Water 100 / 100 Output: Urine 1225 / 1225 Straight Cath 850 / 850 Catheter 450 / 450 Other: Meal Lunch Breakfast Percent of Meal Consumed 100% 100% Weight 143.3 kg Blood Glucose* 132 Patient Weight 03/19/18 23:59 Weight 143.3 kg - General Appearance General appearance: Present: well-developed, well-nourished, obese EENT: Present: ATNC, hearing intact, vision intact Neck: Present: supple Respiratory: Present: clear Cardiology: Present: edema (+3 pitting edema noted to bilat lower extremities. ) , normal S1, normal S2 Gastrointestinal: Present: normoactive bowel sounds, no tenderness, no guarding Integumentary: Present: rash Additional Comments: Pt's extremities are erythematous and at different stages of healing. Pt states "they itch". Neurologic: Present: alert and oriented x3 Psychiatric: Present: mood/affect appropriate, cooperative - Lab 03/17/18 05:39 03/19/18 06:34 Most recent lab results Calcium 9.0 mg/dL (8.6-10.3) 03/19/18 06:34 Magnesium 2.1 mg/dL (1.6-2.6) 03/19/18 06:34 Consult Discharge Plan - Plan Referrals: Krish-Edda Banda DO [Primary Care Provider] -
[2018-03-19] MEDS: Albumin 25% 25gram/100mL 25 GM/100 ML IV.SOLN IVPB SCH ×2 (10:48→22:09)
[2018-03-19] MEDS: Furosemide 40 MG/4 ML VIAL IVP SCH ×2 (10:48→17:42)
[2018-03-19] MEDS ORDERED: Ondansetron 4 MG/2 ML VIAL IVP PRN (11:03)
[2018-03-19] MEDS: Budesonide/Formoterol 160/4.5 1 PUFF INH IH SCH ×2 (11:08→21:30)
--- NOTE | 2018-03-19 12:03 | Dermatology Consult Note ---
Date of Encounter: 03/26/18 Time of Encounter: 12:00 History of Present Illness Reason for Consult: rash History of Present Illness: Dakota Issa is a 68-year-old male admitted for fluid overload and acute CHF exacerbation. He reports severe intermittent itching on his arms and lower legs for the last 2 weeks. He reports that after he scratches a rash shows up. He denies history of rash. He denies pain. He denies bleeding. He denies treatment. Review of Systems General/Constitutional: Patient denies fevers, chills, nor recent unintended weight loss, night sweats, no change in appetite or malaise. Hematologic: Patient denies new or enlarging lumps or bumps. Skin: Patient denies new or changing moles, or rash other than what is mentioned above. Past Med Surg Social Fam HX - Past Medical History Medical history: arthritis, atrial fibrillation, CHF, COPD, coronary artery disease, CVA, diabetes, GERD, hyperlipidemia, hypertension, pulmonary embolus, renal disease Additional medical history: Pacemaker, emphysema Psychiatric history: anxiety, depression - Past Surgical History Surgical History: cholecystectomy, herniorrhaphy, knee replacement, orthopedic, other, pacemaker/AICD Additional surgical history: Right knee replacement. Cardiac Ablasion. left arm - Social History Smoking Status: Former smoker Smokeless Tobacco Status: No Alcohol use: none Drug use: none - Family History Father Adopted: No Family Member Ethnicity: Non- Living Status: Hx Family Cardiac Disorders: No Hx Family Respiratory Disorders: No Hx Family Cancer: Yes (Leukemia) Hx Family GI Disorders: No Hx Family Endocrine Disorder: No Hx Family Neuromuscular Disorders: No Hx Family Neurologic Disorders: No Hx Family HEENT Disorders: No Hx Family Autoimmune Disorders: No Brother Family Member Ethnicity: Non- Living Status: Still Living Sister Family Member Ethnicity: Non- Living Status: Still Living Mother Adopted: No Family Member Ethnicity: Non- Twin of Family Member: Yes Living Status: Hx Family Cardiac Disorders: Yes (CHF, Afib) Hx Family Respiratory Disorders: No Hx Family Cancer: Yes (Leukemia (father)) Hx Family GI Disorders: No Hx Family Endocrine Disorder: No Hx Family Neuromuscular Disorders: No Hx Family Neurologic Disorders: No Hx Family HEENT Disorders: No Hx Family Autoimmune Disorders: Yes (arthritis) Medications and Allergies Aspirin Enteric Coated [Aspirin EC] 81 mg PO DAILY #0 04/09/15 [History] Rivaroxaban [Xarelto] 20 mg PO DAILY #0 04/09/15 [History] Albuterol Sulfate [Proair Hfa] 2 puff IH Q4H PRN 12/14/16 [History] Atorvastatin [Lipitor] 40 mg PO HS 12/14/16 [History] Pantoprazole Sodium [Protonix] 40 mg PO DAILY 12/14/16 [History] Polyethylene Glycol 3350 [MiraLAX Powder Bulk 17.9 Oz] 17 gm PO DAILY PRN [History] Tizanidine HCl [Zanaflex] 2 mg PO BID 12/14/16 [History] DULoxetine [Cymbalta] 30 mg PO DAILY 02/14/17 [History] Tamsulosin [Flomax] 0.4 mg PO BID 02/14/17 [History] Amiodarone [Cordarone] 200 mg PO DAILY 07/05/17 [History] Finasteride [Proscar] 5 mg PO DAILY 07/05/17 [History] Memantine HCl 10 mg PO BID 07/05/17 [History] Tiotropium Br/Olodaterol HCl [Stiolto Respimat Inhal [place]] 2 puff IH DAILY 11/17 [History] Cholecalciferol (D-3) [Vitamin D] 2,000 unit PO DAILY 10/04/17 [History] Fluticasone Propionate Nasal [Flonase] 2 spr NS DAILY 10/04/17 [History] Fluticasone/Salmeterol [Advair 250-50 Diskus] 1 puff IH BID 10/04/17 [History] Lubiprostone [Amitiza] 16 mcg PO BID 10/04/17 [History] Melatonin [Melatin] 9 mg PO HS 10/04/17 [History] Metoprolol XL (24 HR) Succ [Toprol Xl] 12.5 mg PO QPM 10/04/17 [History] Simethicone [Gas-X] 80 mg PO TID PRN tab.chew 10/30/17 [Rx] Midodrine [ProAmatine] 5 mg PO BID tablet 01/28/18 [Rx] Sennosides/Docusate Sodium [Docusate Sodium-Senna Tablet] 1 tab PO BID PRN 03/14 [History] Trazodone HCl 200 mg PO HS 03/14/18 [History] Furosemide [Lasix] 40 mg PO QPM #30 tablet 03/22/18 [Rx] Furosemide [Lasix] 80 mg PO QAM #30 tablet 03/22/18 [Rx] Gabapentin [Neurontin] 400 mg PO BID #6 capsule 03/22/18 [Rx] LORazepam [Ativan] 0.5 mg PO HS 10 Days #3 tablet 03/22/18 [Rx] OxyCODONE Immed Rel [Roxicodone 10 MG] 10 mg PO Q8H PRN 2 Days #6 tab 03/22/18 [ Rx] Potassium Chloride 20 meq PO DAILY #30 tab.er.prt 03/22/18 [Rx] hydrOXYzine pamoate [HydrOXYzine Pamoate] 25 mg PO Q6H PRN capsule 03/22/18 [Rx ] 3 Allergy/AdvReac Type Severity Reaction Status Date / Time IVP DYE Allergy Severe Anaphylaxis Uncoded 01/12/18 18:14 Examination Vital Signs: Temp Pulse Resp BP Pulse Ox 98.6 F 83 17 154/87 93 03/19/18 11:26 03/19/18 11:26 03/19/18 11:26 03/19/18 11:26 03/19/18 11:26 General Examination: The patient appears alert, oriented X3, in no acute distress, healthy-appearing , normal mood. A detailed skin examination of sites including: scalp, head, neck , face, conjunctive, lids, lips, back, chest/breast/axilla, abdomen, bilateral upper extremities including hands/digits/fingernails, bilateral lower extremities including feet/digits/toenails, genital/groin/buttock, lymph nodes, was completed and found to be normal except: -- Severe tight edema of the lower legs bilaterally with linear excoriations purpura, tight edema with blanching pink erythema and lateral abdominal pannus bilaterally, focal purpuic macules on upper arms bilaterally - Assessment and Plan (1) Edema Status: Acute I suspect that the patient is having itching due to fluid overload. His skin is tight and he is extremely swollen. The moore on his skin are secondary to him scratching and he is on aspirin. REmoving the fluid is the first priority. it may also help him to use a thick moisturizer daily. I advised cerave thick moisturizing cream. I left a pair of tubigrip socks cut to fit his lower legs on his tray. He was nauseous at the time of the exam and vomited during the examination and his nursing team was cleaning him up. I recommend that he keep his legs elevated while at rest and to apply the tubigrip socks when feet are dependent (he reports that he cannot tolerate THERESE hose. Procedure: Dermatology Date of procedure: 03/20/18 Consult Discharge Plan - Plan Additional Instructions: Take lasix 80mg every morning and 40mg every night. Take 20mEq KCl daily. Continue other home medications. Have blood drawn weekly for BMP. Follow up with Dr. Wynn in nephrology in 4 weeks. Follow up with your PCP within 3-5 days of hospital discharge. Stick to a low-salt diet as much as possible. Maintain fluid selectivity at 1.5L /day. Increase physical activity as directed by PT. Return to the ED if you have worsening symptoms or if new concerns arise. Referrals: Edda Rm DO [Primary Care Provider] - Prescriptions: Furosemide [Lasix] 40 mg PO QPM #30 tablet Furosemide [Lasix] 80 mg PO QAM #30 tablet Gabapentin [Neurontin] 400 mg PO BID #6 capsule LORazepam [Ativan] 0.5 mg PO HS 10 Days #3 tablet OxyCODONE Immed Rel [Roxicodone 10 MG] 10 mg PO Q8H PRN 2 Days #6 tab PRN Reason: Severe Pain Potassium Chloride 20 meq PO DAILY #30 tab.er.prt
[2018-03-19] MEDS ORDERED: *HR* Promethazine 25 MG/ML VIAL ONE (12:29)
[2018-03-19] MEDS ORDERED: *HR* Promethazine 25 MG/ML VIAL IVP PRN (12:36)
[2018-03-19] MEDS: Metoprolol XL (24 HR) Succ 25 MG TAB.ER.24H PO SCH (17:42)
[2018-03-19] MEDS: *HR* Rivaroxaban 10 MG TABLET PO SCH (17:42)
[2018-03-19] MEDS: traZODone 50 MG TABLET PO SCH (20:51)
[2018-03-19] MEDS: *HR* LORazepam 0.5 MG TABLET PO SCH (20:51)
[2018-03-19] MEDS: Melatonin 3 MG TABLET PO SCH (20:53)
[2018-03-19] MEDS: hydrOXYzine pamoate 25 MG CAPSULE PO PRN (23:31)
[2018-03-20] MEDS: Ipratropium/Albuterol Neb 3 ML IH SCH ×4 (04:30→21:51)
[2018-03-20 07:33] LABS: Basophils % 0.4 %; Eosinophils # 0.3 K/mcL (0.0-0.6); Hematocrit 31.7 % (37.5-50.1); Immature Granulocytes % 0.2 % (0-4); Lymphocytes % 20.1 %; Mean Corpuscular HGB Conc 31.5 g/dL (31.6-35.5); Mean Corpuscular Hemoglobin 28.8 pg (28.0-33.3); Mean Corpuscular Volume 91.4 fL (83.0-100.0); Mean Platelet Volume 9.9 fL (9.4-12.4); Monocytes # 0.6 K/mcL (0.0-1.3); Monocytes % 11.8 %; Neutrophils # 3.1 K/mcL (1.6-8.9); Platelet Count 202 K/mcL (140-400); Red Blood Count 3.47 M/mcL (4.19-5.50); Red Cell Distribution Width 15.5 % (11.5-14.5); Segmented Neutrophils % 62.5 %
[2018-03-20 07:48] LABS: BUN/Creatinine Ratio 15 (6-26); Blood Urea Nitrogen 19 mg/dL (8-23); Calcium 8.7 mg/dL (8.6-10.3); Carbon Dioxide 39 mEq/L (23-29); Chloride 97 mEq/L (98-107); Glucose 104 mg/dL (70-105); Osmolality,Calculated 295 (280-300); Potassium 3.3 mEq/L (3.5-5.1); Sodium 141 mEq/L (136-145); eGFR For Non-African Americans 57 (> 60)
--- NOTE | 2018-03-20 07:53 | Internal Med Progress Note ---
<Petra Adams N - Last Filed: 03/20/18 10:25> Hospitalist Progress Note - Encounter Date of Encounter: 03/20/18 Time of Encounter: 07:53 - Subjective Interval History: Mr. Issa is a 68-year old male who presented to the ED on 03/14 complaining of bilateral leg pain secondary to edema and worsening generalized weakness/ fatigue. He states that his legs have become increasingly edematous and painful over the last several days. He reports a weight gain of approximately 40lbs in the last 2 weeks. He states that his legs have been swollen nonstop for the last few months, and states that they have never fully gotten better. He says that the swelling worsened so much in the last few days that he was unable to walk or participate in physical therapy. He also noted weeping of bilateral lower extremities/feet.He was seen by Dr. Wynn in nephrology earlier in the week, and states that he was told he would likely end up admitted to the hospital after being evaluated at a cardiology appointment he had scheduled a few days later. He was seen by Dr. Flood in cardiology yesterday afternoon, prior to presentation at the ED. He says that he was instructed to increase his dose of lasix from 40mg BID to 80mg BID and give that a few days to work; however, he states that due to his increasing pain, he felt like he needed to be evaluated and admitted to the hospital for treatment immediately. Initial laboratory studies were significant for [id number]. Chest XR showed no acute cardiopulmonary disease or significant interval change from prior study on 2017. He was admitted for management of CHF exacerbation and started on lasix 40mg IV BID and placed on a fluid-restricted diet. Patient is well-known to the hospitalist service, with several recent admissions with similar presentation. He was started on lasix 40mg IV BID, and has had good urine output (3300mL yesterday). He reports minimal improvement in symptoms today. He continues to have bilateral lower extremity swelling, which is very tender to superficial palpation. There is warmth and erythema of pretibial area of the bilateral lower extremities. Patient denies any shortness of breath or respiratory difficulties. He does complain of skin discoloration across bilateral upper extremities. He says that he was told in the past that it was "uremic torres"; however, patient has normal BUN and serum creatinine. Mr. Issa states that it starts out as an itch, and that the rash shows up after he scratches it. Though it is only present on his arms currently, he states that he has also had it across his torso and stomach in the past. He states that he is eating well, though he does have some mild constipation. He denies any other complaints or concerns at this time. 03/16 - Patient reports some improvement in lower extremity swelling overnight, though he complains of persistent lower leg and foot pain. He denies any acute complaints or concerns, and states that he is eating and drinking well. Nursing staff reports no acute overnight events. 03/19 - Patient reports continued LE edema. He has had persistent itching of bilateral LE, which is worse on the left. Over the weekend, he has been scratching extensively, and there are numerous excoriations present on the left lower extremity. He reports tenderness in this area as well. He complains of increasing abdominal fullness and gas pain. Nursing staff reported acute-onset nausea and vomiting during the morning. 03/20 - Mr. Issa had several episodes of emesis yesterday, which have resolved. He reports some continued nausea. He has not had a bowel movement, but states that he has felt like he needs to go and has been passing large amounts of flatus. He reports having bowel movements a few times per week. He denies any additional complaints or concerns, and nursing staff reports no other significant events. - Exam Vitals: Temp Pulse Resp BP Pulse Ox 98.3 F 65 18 102/69 93 03/20/18 06:25 03/20/18 06:25 03/20/18 06:25 03/20/18 06:25 03/20/18 06:25 Exam: * General: Adult male lying in bed in no acute distress. He is pleasant and conversational. He answers questions appropriately. * HEENT: Atraumatic and normocephalic. Nasal canula in place. * Cardiovascular: Regular rate and rhythm. S1 and S2 present. No murmurs, gallops, or rubs. * Respiratory: CTA bilaterally with diffusely decreased breath sounds. No wheezes, crackles, or rhonchi noted. * Gastrointestinal: Hypoactive bowel sounds x 4 quadrants. Abdomen is distended , with mild LLQ tenderness. * Extremities: No clubbing or cyanosis. 1+ bilateral LE edema present. Tubigrip socks present. - Assessment and Plan (1) CHF exacerbation Current Visit: Yes Status: Acute Assessment and Plan: Patient is currently receiving lasix 40mg IVP BID for diuresis. He had good urine output yesterday of 3300mL, and has had output of 1190mL today thus far. He continues to have painful 2-3+ bilateral lower extremity edema. Additionally , his abdomen does appear slightly distended secondary to fluid overload. Plan to continue lasix diuresis as scheduled, with close monitoring of renal function and electrolytes. Patient is on 1.5L fluid restriction, with strict recording of I/Os and daily weights. 03/16 - Patient has some improvement in bilateral LE edema, though he remains grossly fluid overloaded. 24-hour I/Os = 1470/1190mL. Patient is continuing to have good urine output. Serum creatinine was mildly increased today at 1.39. Will continue lasix diuresis and fluid restriction, with close watch on serum creatinine. 03/17 - Creatinine has increased more. Diuresis on hold for now. Fluid restriction lessened today. 03/18 - Breathing well today. Still with a lot of edema. Lasix per nephrology. 03/19 - Patient demonstrates persistent bilateral LE edema that is tender to palpation. I/Os = 1200/2475mL (-1275mL). Plan to continue lasix 40mg IV BID and fluid-restricted diet. 03/20 - Improvement in bilateral LE edema today. Patient expresses less tenderness to palpation. I/Os = 380/2100 (-1720mL) yesterday. He has already produced 2000mL urine today. Weight is -3kg from admission. Will transition to PO lasix today in anticipation of discharge over the next few days. (2) Fluid overload Current Visit: No Status: Acute Assessment and Plan: Suspect that patient's fluid status is cause of his current CHF exacerbation. He is currently undergoing diuresis. Appreciate nephrology input in management of this patient, particularly considering his prior medical history of recurrent AKIs. (3) Atrial fibrillation Current Visit: No Status: Chronic Assessment and Plan: Continue home medication of amiodarone 200mg and antiocoagulation with xarelto 20mg. (4) COPD (chronic obstructive pulmonary disease) Current Visit: No Status: Chronic Assessment and Plan: Patient does not appear to be in acute exacerbation. Will continue with home regimen of symbicort BID and duonebs Q6H. (5) HTN (hypertension) Current Visit: No Status: Chronic Assessment and Plan: Continue home medication of metoprolol XL 12.5mg. (6) Diabetes mellitus Current Visit: No Status: Chronic Assessment and Plan: Low-dose sliding scale insulin ACHS. Blood glucose has been well-controlled during this hospitalization. (7) Rash Current Visit: Yes Status: Acute Assessment and Plan: Patient reports a very puritic rash that has been present for some time. He states that it starts with itching and the rash becomes visible after scratching. He reports having had this rash across his abdomen and torso in the past. He states that he has been told before that it is "uremic torres"; however , his renal function is WNL. Over the weekend, patient developed severe puritis of his lower extremities, and has been scratching frequently. There are extensive excoriations on his left lower extremity. Dermatology consultation pending. 03/20 - Per dermatology assessment, patient's itching is likely the result of his fluid overloaded state. Their recommendations included tubigrip socks to help reduce dependent edema and topical creams. Will continue lasix diuresis. DVT Prophylaxis: Xarelto 20mg daily. - Time Spent with Patient Total time spent is greater than 50% in coordination of care (as documented) at patient's floor/unit and/or counseling patient: Internal Medicine: Result - Labs CBC & Chem 7: 03/20/18 06:42 03/20/18 06:42 Labs: Short CBC 03/20/18 Range/Units 06:42 WBC 5.0 (4.3-11.1) K/mcL Hgb 10.0 L D (12.9-16.9) g/dL Hct 31.7 L (37.5-50.1) % Plt Count 202 (140-400) K/mcL Neutrophils # 3.1 (1.6-8.9) K/mcL BMP 03/20/18 06:42 Sodium 141 Potassium 3.3 L Chloride 97 L Carbon Dioxide 39 H BUN 19 Creatinine 1.25 Glucose 104 Calcium 8.7 Consult Discharge Plan - Plan Referrals: Able-Edda Banda DO [Primary Care Provider] - <Chris Skelton - Last Filed: 03/20/18 12:39> Hospitalist Progress Note - Encounter Date of Encounter: 03/20/18 - Exam Vitals: Temp Pulse Resp BP Pulse Ox 98.5 F 77 15 104/69 99 03/20/18 11:07 03/20/18 11:07 03/20/18 11:07 03/20/18 11:07 03/20/18 11:07 - Assessment and Plan (1) Fluid overload Current Visit: No Status: Acute (2) CHF exacerbation Current Visit: Yes Status: Acute (3) Constipation by delayed colonic transit Current Visit: No Status: Chronic (4) Atrial fibrillation Current Visit: No Status: Chronic (5) COPD (chronic obstructive pulmonary disease) Current Visit: No Status: Chronic (6) HTN (hypertension) Current Visit: No Status: Chronic (7) Diabetes mellitus Current Visit: No Status: Chronic (8) Rash Current Visit: Yes Status: Acute - Time Spent with Patient Total time spent is greater than 50% in coordination of care (as documented) at patient's floor/unit and/or counseling patient: Internal Medicine: Result - Labs CBC & Chem 7: 03/20/18 06:42 03/20/18 06:42 Labs: Short CBC 03/20/18 Range/Units 06:42 WBC 5.0 (4.3-11.1) K/mcL Hgb 10.0 L D (12.9-16.9) g/dL Hct 31.7 L (37.5-50.1) % Plt Count 202 (140-400) K/mcL Neutrophils # 3.1 (1.6-8.9) K/mcL BMP 03/20/18 06:42 Sodium 141 Potassium 3.3 L Chloride 97 L Carbon Dioxide 39 H BUN 19 Creatinine 1.25 Glucose 104 Calcium 8.7 Liver Function 03/20/18 Range/Units 06:42 Total Bilirubin 0.6 (0.3-1.0) mg/dL Direct Bilirubin 0.2 (0.0-0.2) mg/dL AST 17 (13-39) Units/L ALT 18 (7-52) Units/L Alkaline Phosphatase 69 (34-104) Units/L Albumin 3.9 (3.5-5.7) g/dL - Attending Attestation I examined this patient and my medical decision-making was reviewed with the Resident Physician on 03/20/18. I agree with the documented findings, disposition and treatment plan as described except to the extent set forth below. Mr Issa is currently admitted for volume overload and CHF. He remains moderate to high risk due to potential for worsening clinical status. Mr Issa had a lot of nausea and vomiting yesterday. No abd pain and feeling somewhat better now. Hx of chronic constipation and has been off Amitiza. Appreciate nephrology and derm input. Exam alert Resting comfortably Mucus membranes moist Heart distant and not tachy Decreased breath sounds with no wheeze Abd soft Edema present I/P 1. Fluid overload 2. Diastolic CHF 3. Rash 4 Chronic constipation Further diagnoses and plan as above. <Petra Adams N - Last Filed: 03/20/18 10:25> (1) CHF exacerbation Qualifiers: Heart failure type: diastolic Qualified Code(s): I50.33 - Acute on chronic diastolic (congestive) heart failure (2) Fluid overload Qualifiers: Hypervolemia type: other Qualified Code(s): E87.79 - Other fluid overload (3) Atrial fibrillation Qualifiers: Atrial fibrillation type: paroxysmal Qualified Code(s): I48.0 - Paroxysmal atrial fibrillation (4) COPD (chronic obstructive pulmonary disease) Qualifiers: COPD type: unspecified COPD Qualified Code(s): J44.9 - Chronic obstructive pulmonary disease, unspecified (5) HTN (hypertension) Qualifiers: Hypertension type: essential hypertension Qualified Code(s): I10 - Essential (primary) hypertension (6) Diabetes mellitus Qualifiers: Diabetes mellitus type: type 2 Diabetes mellitus liaison engineer insulin use: without liaison engineer use Diabetes mellitus complication status: with neurologic complications Diabetes mellitus complication detail: with polyneuropathy Qualified Code(s): E11.42 - Type 2 diabetes mellitus with diabetic polyneuropathy <Chris Skelton - Last Filed: 03/20/18 12:39> (1) Fluid overload Qualifiers: Hypervolemia type: other Qualified Code(s): E87.79 - Other fluid overload (2) CHF exacerbation Qualifiers: Heart failure type: diastolic Qualified Code(s): I50.33 - Acute on chronic diastolic (congestive) heart failure (4) Atrial fibrillation Qualifiers: Atrial fibrillation type: paroxysmal Qualified Code(s): I48.0 - Paroxysmal atrial fibrillation (5) COPD (chronic obstructive pulmonary disease) Qualifiers: COPD type: unspecified COPD Qualified Code(s): J44.9 - Chronic obstructive pulmonary disease, unspecified (6) HTN (hypertension) Qualifiers: Hypertension type: essential hypertension Qualified Code(s): I10 - Essential (primary) hypertension (7) Diabetes mellitus Qualifiers: Diabetes mellitus type: type 2 Diabetes mellitus intermediate insulin use: without intermediate use Diabetes mellitus complication status: with neurologic complications Diabetes mellitus complication detail: with polyneuropathy Qualified Code(s): E11.42 - Type 2 diabetes mellitus with diabetic polyneuropathy
[2018-03-20 07:54] LABS: Alanine Aminotransferase 18 Units/L (7-52); Albumin 3.9 g/dL (3.5-5.7); Albumin/Globulin Ratio 1.9 (1.1-2.2); Alkaline Phosphatase 69 Units/L (34-104); Amylase < 10 Units/L (29-103); Aspartate Amino Transferase 17 Units/L (13-39); Bilirubin,Direct 0.2 mg/dL (0.0-0.2); Bilirubin,Indirect 0.4 mg/dL (0.0-1.2); Bilirubin,Total 0.6 mg/dL (0.3-1.0); Globulin 2.1 g/dL (2.4-3.5); Lipase < 3 Units/L (11-82)
[2018-03-20] MEDS: Insulin LISPRO 300 UNITS/3 ML VIAL SQ SCH ×4 (08:18→21:03)
[2018-03-20] MEDS: LUBIPROSTONE PO SCH ×2 (08:19→21:01)
[2018-03-20] MEDS: tiZANidine 4 MG TABLET PO SCH ×2 (08:35→21:02)
[2018-03-20] MEDS: Aspirin Enteric Coated 81 MG Tablet PO SCH (08:36)
[2018-03-20] MEDS: Furosemide 40 MG/4 ML VIAL IVP SCH (08:36)
[2018-03-20] MEDS: *HR* Amiodarone 200 MG TABLET PO SCH (08:36)
[2018-03-20] MEDS: Finasteride 5 MG TABLET PO SCH (08:36)
[2018-03-20] MEDS: Gabapentin 400 MG CAPSULE PO SCH ×2 (08:36→21:01)
[2018-03-20] MEDS: Fluticasone Propionate Nasal 50 MCG/SPRAY BOTTLE NS SCH (08:37)
[2018-03-20] MEDS: Albumin 25% 25gram/100mL 25 GM/100 ML IV.SOLN IVPB SCH (09:37)
[2018-03-20] MEDS: Budesonide/Formoterol 160/4.5 1 PUFF INH IH SCH ×2 (10:39→21:51)
[2018-03-20] MEDS: *HR* OxyCODONE Immed Rel 5 MG TABLET PO PRN ×2 (11:30→21:00)
--- NOTE | 2018-03-20 11:50 | Nephrology Progress Note ---
Date of Encounter: 03/20/18 Time of Encounter: 11:49 - Assessment and Plan (1) CKD (chronic kidney disease) stage 3, GFR 30-59 ml/min Current Visit: Yes Status: Acute Is followed by Dr. Wynn in the office. Baseline GFR is 55-60. Strict I/O Avoid nephrotoxins and renal dose all medications. Agree with Po trial of Lasix. (2) Peripheral edema Current Visit: Yes Status: Acute See above. 1.5 Liter fluid restriction. (3) Rash Current Visit: Yes Status: Acute Bilat arms covered in small red raised papules/healed scabs. Pt c/o of itching. Derm recommendations appreciated. Subjective Principal diagnosis: AG/volume overload Interval history: Pt seen and examined. Admits to still feeling short of breath. Objective - Vital Signs Vital signs: Vital Signs Temp Pulse Resp BP Pulse Ox 03/20/18 11:07 98.5 F 77 15 104/69 99 03/20/18 10:41 18 93 03/20/18 08:44 93 03/20/18 06:25 98.3 F 65 18 102/69 93 03/20/18 04:34 14 93 03/20/18 04:05 98.1 F 72 16 110/71 99 03/19/18 22:57 99.1 F 67 16 104/72 95 03/19/18 21:30 20 92 03/19/18 20:58 95 03/19/18 18:44 98.3 F 88 16 129/65 91 03/19/18 15:03 98.7 F 92 15 114/75 91 Intake and Output 03/19/18 03/20/18 03/20/18 23:59 07:59 15:59 Intake Total 100 / 100 100 / 100 340 / 340 Output Total 2100 / 2100 Balance 100 / 100 -2000 / -2000 340 / 340 Intake: IV Fluids 100 / 100 100 / 100 100 / 100 Flexbumin 25 gm In 100 ml @ 60 100 / 100 100 / 100 100 / 100 mls/hr IVPB BID [facility] Rx#: [id number] Oral 240 / 240 Output: Urine 700 / 700 Catheter 1400 / 1400 Urethral (Chang) 700 / 700 Other: Meal Breakfast Percent of Meal Consumed 100% Weight 138 kg Blood Glucose* 112 103 133 Patient Weight 03/20/18 23:59 Weight 138 kg - General Appearance General appearance: Present: well-developed, well-nourished, obese EENT: Present: ATNC, hearing intact, vision intact Neck: Present: supple Respiratory: Present: clear Cardiology: Present: edema (+3 pitting edema noted to bilat lower extremities.) , normal S1, normal S2 Gastrointestinal: Present: normoactive bowel sounds, no tenderness, no guarding Integumentary: Present: warm and dry Neurologic: Present: alert and oriented x3 Psychiatric: Present: mood/affect appropriate, cooperative - Lab 03/20/18 06:42 03/20/18 06:42 Most recent lab results Calcium 8.7 mg/dL (8.6-10.3) 03/20/18 06:42 Magnesium 2.1 mg/dL (1.6-2.6) 03/20/18 06:42 Consult Discharge Plan - Plan Referrals: Krish-Edda Banda DO [Primary Care Provider] -
[2018-03-20] MEDS: hydrOXYzine pamoate 25 MG CAPSULE PO PRN ×2 (14:12→21:01)
[2018-03-20] MEDS: *HR* Rivaroxaban 10 MG TABLET PO SCH (17:18)
[2018-03-20] MEDS: Furosemide 40 MG TABLET PO SCH (17:18)
[2018-03-20] MEDS: Metoprolol XL (24 HR) Succ 25 MG TAB.ER.24H PO SCH (17:18)
[2018-03-20] MEDS: *HR* LORazepam 0.5 MG TABLET PO SCH (21:00)
[2018-03-20] MEDS: Melatonin 3 MG TABLET PO SCH (21:01)
[2018-03-20] MEDS: traZODone 50 MG TABLET PO SCH (21:01)
[2018-03-21] MEDS: Benzonatate 100 MG CAPSULE PO PRN ×2 (02:23→11:27)
[2018-03-21] MEDS: Ipratropium/Albuterol Neb 3 ML IH SCH ×4 (03:35→22:26)
[2018-03-21 05:54] LABS: Basophils % 0.3 %; Eosinophils # 0.4 K/mcL (0.0-0.6); Hematocrit 31.2 % (37.5-50.1); Hemoglobin 9.8 g/dL (12.9-16.9); Immature Granulocytes % 0.3 % (0-4); Lymphocytes # 0.9 K/mcL (0.6-4.6); Lymphocytes % 12.8 %; Mean Corpuscular HGB Conc 31.4 g/dL (31.6-35.5); Mean Corpuscular Hemoglobin 28.6 pg (28.0-33.3); Mean Platelet Volume 10.2 fL (9.4-12.4); Monocytes # 0.8 K/mcL (0.0-1.3); Monocytes % 11.5 %; Neutrophils # 4.9 K/mcL (1.6-8.9); Platelet Count 222 K/mcL (140-400); Red Blood Count 3.43 M/mcL (4.19-5.50); Red Cell Distribution Width 15.5 % (11.5-14.5); Segmented Neutrophils % 70.1 %
[2018-03-21 06:40] LABS: Calcium 8.8 mg/dL (8.6-10.3); Potassium 3.7 mEq/L (3.5-5.1)
[2018-03-21] MEDS: Insulin LISPRO 300 UNITS/3 ML VIAL SQ SCH ×4 (08:46→22:50)
[2018-03-21] MEDS: Furosemide 40 MG TABLET PO SCH ×2 (08:50→17:32)
[2018-03-21] MEDS: Gabapentin 400 MG CAPSULE PO SCH ×2 (08:50→23:02)
[2018-03-21] MEDS: tiZANidine 4 MG TABLET PO SCH ×2 (08:51→23:02)
[2018-03-21] MEDS: Aspirin Enteric Coated 81 MG Tablet PO SCH (08:51)
[2018-03-21] MEDS: Finasteride 5 MG TABLET PO SCH (08:51)
[2018-03-21] MEDS: *HR* Amiodarone 200 MG TABLET PO SCH (08:51)
[2018-03-21] MEDS: LUBIPROSTONE PO SCH ×2 (08:52→23:02)
[2018-03-21] MEDS: Fluticasone Propionate Nasal 50 MCG/SPRAY BOTTLE NS SCH (08:52)
--- NOTE | 2018-03-21 09:19 | Internal Med Progress Note ---
<Petra Adams N - Last Filed: 03/21/18 13:45> Hospitalist Progress Note - Encounter Date of Encounter: 03/21/18 Time of Encounter: 09:19 - Subjective Interval History: Mr. Issa is a 68-year old male who presented to the ED on 03/14 complaining of bilateral leg pain secondary to edema and worsening generalized weakness/ fatigue. He states that his legs have become increasingly edematous and painful over the last several days. He reports a weight gain of approximately 40lbs in the last 2 weeks. He states that his legs have been swollen nonstop for the last few months, and states that they have never fully gotten better. He says that the swelling worsened so much in the last few days that he was unable to walk or participate in physical therapy. He also noted weeping of bilateral lower extremities/feet.He was seen by Dr. Wynn in nephrology earlier in the week, and states that he was told he would likely end up admitted to the hospital after being evaluated at a cardiology appointment he had scheduled a few days later. He was seen by Dr. Flood in cardiology yesterday afternoon, prior to presentation at the ED. He says that he was instructed to increase his dose of lasix from 40mg BID to 80mg BID and give that a few days to work; however, he states that due to his increasing pain, he felt like he needed to be evaluated and admitted to the hospital for treatment immediately. Initial laboratory studies were significant for LAT=850. Chest XR showed no acute cardiopulmonary disease or significant interval change from prior study on 2017. He was admitted for management of CHF exacerbation and started on lasix 40mg IV BID and placed on a fluid-restricted diet. Patient is well-known to the hospitalist service, with several recent admissions with similar presentation. He was started on lasix 40mg IV BID, and has had good urine output (3300mL yesterday). He reports minimal improvement in symptoms today. He continues to have bilateral lower extremity swelling, which is very tender to superficial palpation. There is warmth and erythema of pretibial area of the bilateral lower extremities. Patient denies any shortness of breath or respiratory difficulties. He does complain of skin discoloration across bilateral upper extremities. He says that he was told in the past that it was "uremic torres"; however, patient has normal BUN and serum creatinine. Mr. Issa states that it starts out as an itch, and that the rash shows up after he scratches it. Though it is only present on his arms currently, he states that he has also had it across his torso and stomach in the past. He states that he is eating well, though he does have some mild constipation. He denies any other complaints or concerns at this time. 03/16 - Patient reports some improvement in lower extremity swelling overnight, though he complains of persistent lower leg and foot pain. He denies any acute complaints or concerns, and states that he is eating and drinking well. Nursing staff reports no acute overnight events. 03/19 - Patient reports continued LE edema. He has had persistent itching of bilateral LE, which is worse on the left. Over the weekend, he has been scratching extensively, and there are numerous excoriations present on the left lower extremity. He reports tenderness in this area as well. He complains of increasing abdominal fullness and gas pain. Nursing staff reported acute-onset nausea and vomiting during the morning. 03/20 - Mr. Issa had several episodes of emesis yesterday, which have resolved. He reports some continued nausea. He has not had a bowel movement, but states that he has felt like he needs to go and has been passing large amounts of flatus. He reports having bowel movements a few times per week. He denies any additional complaints or concerns, and nursing staff reports no other significant events. 03/21 - Patient reports feeling slightly improved from yesterday, but states that he was unable to sleep last night due to persistent cough. He reports that his cough is productive with dark brown sputum. He reports some increased shortness of breath. He continues to report abdominal tenderness and has still not had a bowel movement. Nursing staff reports that he has continued to complain about being on a fluid-restricted diet. - Exam Vitals: Temp Pulse Resp BP Pulse Ox 99.4 F 69 15 108/66 92 03/21/18 07:54 03/21/18 07:54 03/21/18 07:54 03/21/18 07:54 03/21/18 08:55 Exam: * General: Adult male lying in bed in no acute distress. He answers questions appropriately. * HEENT: Atraumatic and normocephalic. Nasal canula in place. * Cardiovascular: Regular rate and rhythm. S1 and S2 present. No murmurs, gallops, or rubs. * Respiratory: CTA bilaterally with diffusely decreased breath sounds. No wheezes, crackles, or rhonchi noted. * Gastrointestinal: Hypoactive bowel sounds x 4 quadrants. Abdomen is distended , generalized tenderness present. * Extremities: No clubbing or cyanosis. 1-2+ tight bilateral LE edema present. Tubigrip socks present. - Assessment and Plan (1) CHF exacerbation Current Visit: Yes Status: Acute Assessment and Plan: Patient is currently receiving lasix 40mg IVP BID for diuresis. He had good urine output yesterday of 3300mL, and has had output of 1190mL today thus far. He continues to have painful 2-3+ bilateral lower extremity edema. Additionally , his abdomen does appear slightly distended secondary to fluid overload. Plan to continue lasix diuresis as scheduled, with close monitoring of renal function and electrolytes. Patient is on 1.5L fluid restriction, with strict recording of I/Os and daily weights. 03/16 - Patient has some improvement in bilateral LE edema, though he remains grossly fluid overloaded. 24-hour I/Os = 1470/1190mL. Patient is continuing to have good urine output. Serum creatinine was mildly increased today at 1.39. Will continue lasix diuresis and fluid restriction, with close watch on serum creatinine. 03/17 - Creatinine has increased more. Diuresis on hold for now. Fluid restriction lessened today. 03/18 - Breathing well today. Still with a lot of edema. Lasix per nephrology. 03/19 - Patient demonstrates persistent bilateral LE edema that is tender to palpation. I/Os = 1200/2475mL (-1275mL). Plan to continue lasix 40mg IV BID and fluid-restricted diet. 03/20 - Improvement in bilateral LE edema today. Patient expresses less tenderness to palpation. I/Os = 380/2100 (-1720mL) yesterday. He has already produced 2000mL urine today. Weight is -3kg from admission. Will transition to PO lasix today in anticipation of discharge over the next few days. 03/21 - Lower extremity edema appears mildly worse today, with increased tightness present. I/Os = 440/2100 (-1660mL). Weight has increased ~2kg since yesterday. BNP was 204 on 03/20. Will maintain current diuretic dose of lasix 40mg PO BID and 1.5L fluid restriction diet. (2) CKD (chronic kidney disease) Current Visit: No Status: Chronic Assessment and Plan: Per nephrology note, patient's GFR is normally between 55 and 60 when he is at baseline. Serum creatinine was elevated today at 1.64, likely in response to diuretics. Will continue close monitoring of renal function and cautious diuresis. Appreciate nephrology input in management of this patient. (3) Constipation by delayed colonic transit Current Visit: No Status: Chronic Assessment and Plan: Patient has a history of IBS and chronic constipation, for which he takes lubiprostone 16 mcg BID. He is currently on senna plus BID and miralax QD. Will consider increasing laxative if patient continues to be unable to have a bowel movement. He reports being able to pass gas regularly. (4) Atrial fibrillation Current Visit: No Status: Chronic Assessment and Plan: Continue home medication of amiodarone 200mg and antiocoagulation with xarelto 20mg. (5) COPD (chronic obstructive pulmonary disease) Current Visit: No Status: Chronic Assessment and Plan: Patient does not appear to be in acute exacerbation. Will continue with home regimen of symbicort BID and duonebs Q6H. (6) HTN (hypertension) Current Visit: No Status: Chronic Assessment and Plan: Continue home medication of metoprolol XL 12.5mg. (7) Diabetes mellitus Current Visit: No Status: Chronic Assessment and Plan: Low-dose sliding scale insulin ACHS. Blood glucose has been well-controlled during this hospitalization. (8) Rash Current Visit: Yes Status: Acute Assessment and Plan: Patient reports a very puritic rash that has been present for some time. He states that it starts with itching and the rash becomes visible after scratching. He reports having had this rash across his abdomen and torso in the past. He states that he has been told before that it is "uremic torres"; however , his renal function is WNL. Over the weekend, patient developed severe puritis of his lower extremities, and has been scratching frequently. There are extensive excoriations on his left lower extremity. Dermatology consultation pending. 03/20 - Per dermatology assessment, patient's itching is likely the result of his fluid overloaded state. Their recommendations included tubigrip socks to help reduce dependent edema and topical creams. Will continue lasix diuresis. 03/21 - Continued lasix and topical skin protectants PRN. (9) Productive cough Current Visit: Yes Status: Acute Assessment and Plan: Patient complains of persistent cough productive of dark brown sputum. He has remained afebrile throughout this admission, and WBC count remains WNL. He complained of some worsening SOB today. Portable chest xray demonstrated increased bilateral interstitial opacities and perihilar airspace opacities suggestive of pulmonary edema. It was noted that pneumonia could appear similar ; however, suspect acute process is unlikely as the patient has demonstrated no signs of infection and he remains grossly fluid overloaded. Will continue to monitor clinically. DVT Prophylaxis: Xarelto 20mg daily. - Time Spent with Patient Total time spent is greater than 50% in coordination of care (as documented) at patient's floor/unit and/or counseling patient: Internal Medicine: Result - Labs CBC & Chem 7: 03/21/18 04:05 03/21/18 04:05 Labs: Short CBC 03/21/18 Range/Units 04:05 WBC 7.0 (4.3-11.1) K/mcL Hgb 9.8 L (12.9-16.9) g/dL Hct 31.2 L (37.5-50.1) % Plt Count 222 (140-400) K/mcL Neutrophils # 4.9 (1.6-8.9) K/mcL BMP 03/21/18 04:05 Sodium 139 Potassium 3.7 Chloride 97 L Carbon Dioxide 33 H BUN 25 H Creatinine 1.64 H Glucose 114 H Calcium 8.8 Consult Discharge Plan - Plan Referrals: Able-Edda Banda DO [Primary Care Provider] - <Chris Skelton - Last Filed: 03/21/18 17:03> Hospitalist Progress Note - Encounter Date of Encounter: 03/21/18 - Exam Vitals: Temp Pulse Resp BP Pulse Ox 99.7 F H 65 18 111/72 90 03/21/18 16:04 03/21/18 16:04 03/21/18 16:25 03/21/18 16:04 03/21/18 16:25 - Assessment and Plan (1) CHF exacerbation Current Visit: Yes Status: Acute (2) Atrial fibrillation Current Visit: No Status: Chronic (3) COPD (chronic obstructive pulmonary disease) Current Visit: No Status: Chronic (4) CKD (chronic kidney disease) Current Visit: No Status: Chronic (5) HTN (hypertension) Current Visit: No Status: Chronic (6) Constipation by delayed colonic transit Current Visit: No Status: Chronic (7) Diabetes mellitus Current Visit: No Status: Chronic (8) Rash Current Visit: Yes Status: Acute (9) Productive cough Current Visit: Yes Status: Acute - Time Spent with Patient Total time spent is greater than 50% in coordination of care (as documented) at patient's floor/unit and/or counseling patient: Internal Medicine: Result - Labs CBC & Chem 7: 03/21/18 04:05 03/21/18 04:05 Labs: Short CBC 03/21/18 Range/Units 04:05 WBC 7.0 (4.3-11.1) K/mcL Hgb 9.8 L (12.9-16.9) g/dL Hct 31.2 L (37.5-50.1) % Plt Count 222 (140-400) K/mcL Neutrophils # 4.9 (1.6-8.9) K/mcL BMP 03/21/18 04:05 Sodium 139 Potassium 3.7 Chloride 97 L Carbon Dioxide 33 H BUN 25 H Creatinine 1.64 H Glucose 114 H Calcium 8.8 - Impressions Impressions Chest X-Ray 03/21/18 10:16 IMPRESSION: 1. Increased bilateral interstitial opacities and perihilar airspace opacities suggestive of pulmonary edema. Pneumonia could appear similar. 2. Minimal left basilar atelectasis and/or scarring. D/ / Asif Cage MD / Asif Cage MD Interpreting Provider: Asif Cage MD - Attending Attestation I examined this patient and my medical decision-making was reviewed with the Resident Physician on 03/21/18. I agree with the documented findings, disposition and treatment plan as described except to the extent set forth below. Mr Issa is currently admitted for acute diastolic heart failure and fluid overload. He remains moderate to high risk due to potential for worsening clinical status. Mr Issa is still itching some. His creatinine has increased. No fever or chills. Still edematous. No CP No emesis today. Exam alert Comfortable at this time. Mucus membranes dry Heart reg and distant Decreased breath sounds Abd soft Edema present I/P 1. CHF 2. Edema Further diagnoses and plan as above. <Petra Adams - Last Filed: 03/21/18 13:45> (1) CHF exacerbation Qualifiers: Heart failure type: diastolic Qualified Code(s): I50.33 - Acute on chronic diastolic (congestive) heart failure (4) Atrial fibrillation Qualifiers: Atrial fibrillation type: paroxysmal Qualified Code(s): I48.0 - Paroxysmal atrial fibrillation (5) COPD (chronic obstructive pulmonary disease) Qualifiers: COPD type: unspecified COPD Qualified Code(s): J44.9 - Chronic obstructive pulmonary disease, unspecified (6) HTN (hypertension) Qualifiers: Hypertension type: essential hypertension Qualified Code(s): I10 - Essential (primary) hypertension (7) Diabetes mellitus Qualifiers: Diabetes mellitus type: type 2 Diabetes mellitus long term care pharmacist insulin use: without jail use Diabetes mellitus complication status: with neurologic complications Diabetes mellitus complication detail: with polyneuropathy Qualified Code(s): E11.42 - Type 2 diabetes mellitus with diabetic polyneuropathy <Chris Skelton - Last Filed: 03/21/18 17:03> (1) CHF exacerbation Qualifiers: Heart failure type: diastolic Qualified Code(s): I50.33 - Acute on chronic diastolic (congestive) heart failure (2) Atrial fibrillation Qualifiers: Atrial fibrillation type: paroxysmal Qualified Code(s): I48.0 - Paroxysmal atrial fibrillation (3) COPD (chronic obstructive pulmonary disease) Qualifiers: COPD type: unspecified COPD Qualified Code(s): J44.9 - Chronic obstructive pulmonary disease, unspecified (4) CKD (chronic kidney disease) Qualifiers: Chronic kidney disease stage: stage 3 (moderate) (5) HTN (hypertension) Qualifiers: Hypertension type: essential hypertension Qualified Code(s): I10 - Essential (primary) hypertension (7) Diabetes mellitus Qualifiers: Diabetes mellitus type: type 2 Diabetes mellitus long term care pharmacist insulin use: without jail use Diabetes mellitus complication status: with neurologic complications Diabetes mellitus complication detail: with polyneuropathy Qualified Code(s): E11.42 - Type 2 diabetes mellitus with diabetic polyneuropathy
[2018-03-21] MEDS: Budesonide/Formoterol 160/4.5 1 PUFF INH IH SCH ×2 (11:07→22:26)
--- NOTE | 2018-03-21 11:24 | Nephrology Progress Note ---
Date of Encounter: 03/21/18 Time of Encounter: 11:22 - Assessment and Plan (1) CKD (chronic kidney disease) stage 3, GFR 30-59 ml/min Current Visit: Yes Status: Acute Is followed by Dr. Wynn in the office. Baseline GFR is 55-60. Strict I/O Avoid nephrotoxins and renal dose all medications. Continue PO Lasix. Scr bumped to 1.64 which is expected with IV lasix. Continue supportive care with emesis. (2) Peripheral edema Current Visit: Yes Status: Acute See above. 1.5 Liter fluid restriction. (3) Rash Current Visit: Yes Status: Acute Bilat arms covered in small red raised papules/healed scabs. Pt c/o of itching. Derm recommendations appreciated. Subjective Principal diagnosis: AG/volume overload Interval history: Pt seen and examined. Admits to still feeling short of breath and fatigued. Objective - Vital Signs Vital signs: Vital Signs Temp Pulse Resp BP Pulse Ox 03/21/18 08:55 92 03/21/18 07:54 99.4 F 69 15 108/66 92 03/21/18 02:54 97.9 F 65 16 105/70 96 03/20/18 23:40 98.5 F 76 16 103/67 92 03/20/18 21:54 16 90 03/20/18 18:32 98.0 F 77 16 114/74 92 03/20/18 17:33 98.8 F 70 18 101/68 94 03/20/18 16:06 15 99 Intake and Output 03/20/18 03/21/18 03/21/18 23:59 07:59 15:59 Intake Total 120 / 120 Output Total 710 / 710 Balance -590 / -590 Intake: Oral 120 / 120 Output: Catheter 710 / 710 Other: Meal Breakfast Percent of Meal Consumed 30% # Bowel Movements 0 Weight 140.84 kg Blood Glucose* 131 118 Patient Weight 03/21/18 23:59 Weight 140.84 kg - General Appearance General appearance: Present: well-developed, well-nourished EENT: Present: ATNC, hearing intact, vision intact Neck: Present: supple Respiratory: Present: clear Cardiology: Present: edema (+3 pitting edema noted to bilat lower extremities.) , normal S1, normal S2 Gastrointestinal: Present: normoactive bowel sounds, no tenderness, no guarding Integumentary: Present: no rash, warm and dry Neurologic: Present: alert and oriented x3 Psychiatric: Present: mood/affect appropriate, cooperative - Lab 03/21/18 04:05 03/21/18 04:05 Most recent lab results Calcium 8.8 mg/dL (8.6-10.3) 03/21/18 04:05 Magnesium 2.1 mg/dL (1.6-2.6) 03/20/18 06:42 Consult Discharge Plan - Plan Referrals: Krish-Edda Banda DO [Primary Care Provider] -
[2018-03-21] MEDS: Sennosides/Docusate Sodium TABLET PO SCH ×2 (11:27→23:02)
[2018-03-21] MEDS: Metoprolol XL (24 HR) Succ 25 MG TAB.ER.24H PO SCH (17:32)
[2018-03-21] MEDS: *HR* Rivaroxaban 10 MG TABLET PO SCH (17:32)
[2018-03-21] MEDS: *HR* LORazepam 0.5 MG TABLET PO SCH (23:01)
[2018-03-21] MEDS: traZODone 50 MG TABLET PO SCH (23:02)
[2018-03-21] MEDS: Melatonin 3 MG TABLET PO SCH (23:12)
[2018-03-21] MEDS: hydrOXYzine pamoate 25 MG CAPSULE PO PRN (23:12)
[2018-03-22] MEDS: Benzonatate 100 MG CAPSULE PO PRN (01:27)
[2018-03-22] MEDS: Ipratropium/Albuterol Neb 3 ML IH SCH ×2 (04:01→11:03)
[2018-03-22 07:23] LABS: BUN/Creatinine Ratio 20 (6-26); Blood Urea Nitrogen 24 mg/dL (8-23); Carbon Dioxide 34 mEq/L (23-29); Chloride 98 mEq/L (98-107); Glucose 116 mg/dL (70-105); Osmolality,Calculated 295 (280-300); Potassium 3.3 mEq/L (3.5-5.1); Sodium 140 mEq/L (136-145); eGFR For Non-African Americans > 60 (> 60)
[2018-03-22 08:20] LABS: Calcium 8.8 mg/dL (8.6-10.3)
[2018-03-22 08:26] LABS: Basophils % 0.3 %; Eosinophils # 0.4 K/mcL (0.0-0.6); Hematocrit 31.7 % (37.5-50.1); Hemoglobin 10.1 g/dL (12.9-16.9); Immature Granulocytes % 0.3 % (0-4); Lymphocytes # 0.8 K/mcL (0.6-4.6); Lymphocytes % 10.8 %; Mean Corpuscular HGB Conc 31.9 g/dL (31.6-35.5); Mean Corpuscular Hemoglobin 28.9 pg (28.0-33.3); Mean Corpuscular Volume 90.6 fL (83.0-100.0); Monocytes # 0.9 K/mcL (0.0-1.3); Monocytes % 12.2 %; Platelet Count 243 K/mcL (140-400); Red Cell Distribution Width 15.3 % (11.5-14.5); Segmented Neutrophils % 71.4 %
--- NOTE | 2018-03-22 08:30 | Discharge Summary ---
<Chris Skelton - Last Filed: 03/22/18 18:36> Date of Encounter: 03/22/18 - Discharge Diagnosis (1) CHF exacerbation Status: Acute Qualifiers: Heart failure type: diastolic Qualified Code(s): I50.33 - Acute on chronic diastolic (congestive) heart failure (2) Atrial fibrillation Status: Chronic Qualifiers: Atrial fibrillation type: paroxysmal Qualified Code(s): I48.0 - Paroxysmal atrial fibrillation (3) COPD (chronic obstructive pulmonary disease) Status: Chronic Qualifiers: COPD type: unspecified COPD Qualified Code(s): J44.9 - Chronic obstructive pulmonary disease, unspecified (4) CKD (chronic kidney disease) Status: Chronic Qualifiers: Chronic kidney disease stage: stage 3 (moderate) Qualified Code(s): N18.3 - Chronic kidney disease, stage 3 (moderate) (5) HTN (hypertension) Status: Chronic Qualifiers: Hypertension type: essential hypertension Qualified Code(s): I10 - Essential (primary) hypertension (6) 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 Issa is a 68 year old male - Time Spent with Patient Total time spent providing and/or coordinating discharge services: 39min - Discharge Medications Prescriptions: Furosemide [Lasix] 40 mg PO QPM #30 tablet Furosemide [Lasix] 80 mg PO QAM #30 tablet Gabapentin [Neurontin] 400 mg PO BID #6 capsule LORazepam [Ativan] 0.5 mg PO HS 10 Days #3 tablet OxyCODONE Immed Rel [Roxicodone 10 MG] 10 mg PO Q8H PRN 2 Days #6 tab PRN Reason: Severe Pain Potassium Chloride 20 meq PO DAILY #30 tab.er.prt Home Medications: Aspirin Enteric Coated [Aspirin EC] 81 mg PO DAILY #0 04/09/15 [History] Rivaroxaban [Xarelto] 20 mg PO DAILY #0 04/09/15 [History] Albuterol Sulfate [Proair Hfa] 2 puff IH Q4H PRN 06/14/17 [History] Atorvastatin [Lipitor] 40 mg PO HS 12/14/16 [History] Pantoprazole Sodium [Protonix] 40 mg PO DAILY 12/14/16 [History] Polyethylene Glycol 3350 [MiraLAX Powder Bulk 17.9 Oz] 17 gm PO DAILY PRN [History] Tizanidine HCl [Zanaflex] 2 mg PO BID 12/14/16 [History] DULoxetine [Cymbalta] 30 mg PO DAILY 02/14/17 [History] Tamsulosin [Flomax] 0.4 mg PO BID 02/14/17 [History] Amiodarone [Cordarone] 200 mg PO DAILY 07/05/17 [History] Finasteride [Proscar] 5 mg PO DAILY 07/05/17 [History] Memantine HCl 10 mg PO BID 07/05/17 [History] Tiotropium Br/Olodaterol HCl [Stiolto Respimat Inhal [place]] 2 puff IH DAILY 11/17 [History] Cholecalciferol (D-3) [Vitamin D] 2,000 unit PO DAILY 10/04/17 [History] Fluticasone Propionate Nasal [Flonase] 2 spr NS DAILY 10/04/17 [History] Fluticasone/Salmeterol [Advair 250-50 Diskus] 1 puff IH BID 10/04/17 [History] Lubiprostone [Amitiza] 16 mcg PO BID 10/04/17 [History] Melatonin [Melatin] 9 mg PO HS 10/04/17 [History] Metoprolol XL (24 HR) Succ [Toprol Xl] 12.5 mg PO QPM 10/04/17 [History] Simethicone [Gas-X] 80 mg PO TID PRN tab.chew 10/30/17 [Rx] Midodrine [ProAmatine] 5 mg PO BID tablet 01/28/18 [Rx] Sennosides/Docusate Sodium [Docusate Sodium-Senna Tablet] 1 tab PO BID PRN 03/14 [History] Trazodone HCl 200 mg PO HS 03/14/18 [History] Furosemide [Lasix] 40 mg PO QPM #30 tablet 03/22/18 [Rx] Furosemide [Lasix] 80 mg PO QAM #30 tablet 03/22/18 [Rx] Gabapentin [Neurontin] 400 mg PO BID #6 capsule 03/22/18 [Rx] LORazepam [Ativan] 0.5 mg PO HS 10 Days #3 tablet 03/22/18 [Rx] OxyCODONE Immed Rel [Roxicodone 10 MG] 10 mg PO Q8H PRN 2 Days #6 tab 03/22/18 [ Rx] Potassium Chloride 20 meq PO DAILY #30 tab.er.prt 03/22/18 [Rx] hydrOXYzine pamoate [HydrOXYzine Pamoate] 25 mg PO Q6H PRN capsule 03/22/18 [Rx ] Allergies/Adverse Reactions: 3 Allergy/AdvReac Type Severity Reaction Status Date / Time IVP DYE Allergy Severe Anaphylaxis Uncoded 01/12/18 18:14 Date of admission: 03/16/18 13:23 Primary care physician: Edda Rm DO Consults: 03/16/18 14:29 Consult to Dermatology [CONS] Routine Consulting Provider: Dermatology [facility] Reason for Consult: Itching rash on bilateral upper extremities - hepatic panel normal Time Notified: 14:29 Call Completed: Yes 03/22/18 12:28 Consult to Cardiology [CONS] Routine Comment: Consulting Provider: Cardiology Sujatha Reason for Consult: Diastolic heart failure, edema Time Notified: 11:40 Call Completed: Yes - Constitutional Vitals: Temp Pulse Resp BP Pulse Ox 98.0 F 77 18 105/67 93 03/22/18 11:44 03/22/18 11:44 03/22/18 11:44 03/22/18 11:44 03/22/18 11:44 - Patient Status Disposition: Transfer Inpatient Rehab Fac Condition: Fair - Ambulatory Orders Ambulatory Orders: Basic Metabolic Panel [CHEM] Time Frame: 1 Week, Location: Determined By Patient - Discharge Instructions Follow Up With: Edda Rm DO [Primary Care Provider] - Additional Instructions: Take lasix 80mg every morning and 40mg every night. Take 20mEq KCl daily. Continue other home medications. Have blood drawn weekly for BMP. Follow up with Dr. Wynn in nephrology in 4 weeks. Follow up with your PCP within 3-5 days of hospital discharge. Stick to a low-salt diet as much as possible. Maintain fluid selectivity at 1.5L /day. Increase physical activity as directed by PT. Return to the ED if you have worsening symptoms or if new concerns arise. - Attending Attestation I examined this patient and my medical decision-making was reviewed with the Resident Physician on 03/22/18. I agree with the documented findings, disposition and treatment plan as described except to the extent set forth below. Mr Issa has been admitted with diastolic heart failure and fluid overload. He has diuresed and has had improvement. His renal function has been stable. He has been evaluated by nephrology and cardiology. He is afebrile and ready for discharge home. Exam alert Comfortable Mucus membranes dry Heart reg No wheeze Plan D/C to SNF today. <Petra Adams N - Last Filed: 03/22/18 23:41> - NOTES TO OUTPATIENT PROVIDER Notes to Outpatient Provider: Patient was admitted for acute CHF exacerbation with fluid overload. He was treated with IV diuresis. Nephrology was consulted for management due to his history of AG. Diuretic dose adjusted for discharge per nephrology recommendations; patient prescribed 80mg lasix PO QAM and 40mg PO QPM, along with 20mEq KCl daily. He is to have weekly BMP and follow with Dr. Wynn in 4 weeks. Date of Encounter: 03/22/18 Time of Encounter: 08:30 - Discharge Diagnosis (1) CHF exacerbation Priority: Primary Status: Acute Qualifiers: Heart failure type: diastolic Qualified Code(s): I50.33 - Acute on chronic diastolic (congestive) heart failure (2) CKD (chronic kidney disease) Priority: Secondary Status: Chronic Qualifiers: Chronic kidney disease stage: stage 3 (moderate) Qualified Code(s): N18.3 - Chronic kidney disease, stage 3 (moderate) (3) Productive cough Priority: Secondary Status: Acute (4) Constipation by delayed colonic transit Priority: Secondary Status: Chronic (5) Atrial fibrillation Priority: Secondary Status: Chronic Qualifiers: Atrial fibrillation type: paroxysmal Qualified Code(s): I48.0 - Paroxysmal atrial fibrillation (6) COPD (chronic obstructive pulmonary disease) Priority: Secondary Status: Chronic Qualifiers: COPD type: unspecified COPD Qualified Code(s): J44.9 - Chronic obstructive pulmonary disease, unspecified (7) HTN (hypertension) Priority: Secondary Status: Chronic Qualifiers: Hypertension type: essential hypertension Qualified Code(s): I10 - Essential (primary) hypertension (8) Diabetes mellitus Priority: Secondary Status: Chronic Qualifiers: Diabetes mellitus type: type 2 Diabetes mellitus terminal operations manager insulin use: without fdc use Diabetes mellitus complication status: with neurologic complications Diabetes mellitus complication detail: with polyneuropathy Qualified Code(s): E11.42 - Type 2 diabetes mellitus with diabetic polyneuropathy (9) Rash Priority: Secondary Status: Acute Hospital course: Mr. Issa is a 68-year old male who presented to the ED on 03/14 complaining of bilateral leg pain secondary to edema and worsening generalized weakness/ fatigue. He states that his legs have become increasingly edematous and painful over the last several days. He reports a weight gain of approximately 40lbs in the last 2 weeks. He states that his legs have been swollen nonstop for the last few months, and states that they have never fully gotten better. He says that the swelling worsened so much in the last few days that he was unable to walk or participate in physical therapy. He also noted weeping of bilateral lower extremities/feet.He was seen by Dr. Wynn in nephrology earlier in the week, and states that he was told he would likely end up admitted to the hospital after being evaluated at a cardiology appointment he had scheduled a few days later. He was seen by Dr. Flood in cardiology yesterday afternoon, prior to presentation at the ED. He says that he was instructed to increase his dose of lasix from 40mg BID to 80mg BID and give that a few days to work; however, he states that due to his increasing pain, he felt like he needed to be evaluated and admitted to the hospital for treatment immediately. Initial laboratory studies were significant for [id number]=[id number]. Chest XR showed no acute cardiopulmonary disease or significant interval change from prior study on 2017. He was admitted for management of CHF exacerbation and started on lasix 40mg IV BID and placed on a fluid-restricted diet. Patient is well-known to the hospitalist service, with several recent admissions with similar presentation. He was started on lasix 40mg IV BID, and has had good urine output (3300mL yesterday). He reports minimal improvement in symptoms today. He continued to have bilateral lower extremity swelling, which is very tender to superficial palpation. There is warmth and erythema of pretibial area of the bilateral lower extremities. Patient denied any shortness of breath or respiratory difficulties. He does complain of skin discoloration across bilateral upper extremities. He says that he was told in the past that it was "uremic torres"; however, patient has normal BUN and serum creatinine. Mr. Issa states that it starts out as an itch, and that the rash shows up after he scratches it. Though it is only present on his arms currently, he states that he has also had it across his torso and stomach in the past. Liver function tests were ordered to rule out hepatic etiology of his puritis. As results were WNL, dermatology was asked to evaluate. Per their assessment, patient's puritis was thought to be secondary to acute fluid retention, with skin changes secondary to vigorous itching. Patient was recommended to use tubisocks on his lower extremities to reduce swelling and apply topical skin protectant PRN. Patient was evaluated by nephrology on a daily basis throughout this admission due to his history of AG with IV diuretics. He did have an increase in serum creatinine during this admission, with a high of 1.64. IV diuretics were held overnight, and patient's creatinine returned to a level WNL. Patient had one day of recurrent gastrointestinal upset with emesis during this admission. He was provided symptomatic support via IV antiemetics. Mr. Issa was deemed ready for discharge once renal function stabilized while taking PO diuretics. He had a total fluid balance of -9435mL over the course of this admission. On day of discharge, nursing staff reported a phone call from the patient's son expressing concern that cardiology never evaluated the patient during admission, and that he would like the patient to be transferred to the [facility] for a "second opinion". Patient's visited shortly thereafter, and requested physician presence at the bedside. Patient's reported similar concerns for the patient having not been seen by cardiology. Patient's what informed that cardiology office was notified of patient's admission to the hospital while patient was still in the ED, and, as the patient was tolerating diuresis with improvement in symptoms, cardiology consult had not been indicated. Due to family concerns, cardiology was asked to evaluate the patient prior to his discharge later in the afternoon. Family expressed concerns over whether the patient was being treated adequately due to his frequent repeat admissions for the same problem. Family was educated extensively about the importance of the patient not only adhering to his medication therapy, but also following dietary limitations. Patient stated repeatedly, both on the day of discharge and intermittently throughout this admission, that he did not like being on a fluid restricted diet and did not intend on following fluid limitations upon discharge. Patient and his family were also educated about the importance of participation in physical therapy. Patient was encouraged to discuss his treatment with his therapist in order to maximize the effectiveness of his treatments. He was told that pain/discomfort was likely upon initiating exercise, but was reassured that it would decrease over time. Patient and his family verbalized understanding of these recommendations and voiced agreement to try and implement them. Upon completion of discussion with patient and his , patient's son was contacted to update him on the conversation and recommendations. He stated desire for transfer to [facility] for further evaluation; however, he was advised that it was unlikely that an accepting physician would be found as the patient was not requiring a higher level of treatment and was, in fact, medically ready for discharge. Patient's son was educated about above mentioned recommendations to prolong time between hospitalizations, with particular emphasis on the necessity of fluid restriction. Son indicated understanding of these recommendations. Patient was discharged with instructions to take 20mEQ KCl daily, lasix 80mg PO QAM, and lasix 40mg PO QPM. He was instructed to have repeat BMP weekly for four weeks, then followup with Dr. Wynn in the outpatient nephrology clinic. Patient was transferred back to rehab facility. Patient is high-risk for readmission due to history of frequent readmits and history of noncompliance to treatment/therapy. Discharge discussed with: patient, family, nurse - Time Spent with Patient Total time spent providing and/or coordinating discharge services: Date of admission: 03/16/18 13:23 Primary care physician: Edda Rm DO Consults: 03/16/18 14:29 Consult to Dermatology [CONS] Routine Consulting Provider: Dermatology [place] Reason for Consult: Itching rash on bilateral upper extremities - hepatic panel normal Time Notified: 14:29 Call Completed: Yes Discharging clinician: Petra Adams Anticipated date of discharge: 03/22/18 - Constitutional Vitals: Temp Pulse Resp BP Pulse Ox 98.4 F 66 16 101/61 94 03/22/18 07:38 03/22/18 07:38 03/22/18 07:38 03/22/18 07:38 03/22/18 07:38 Exam: * General: Adult male lying in bed in no acute distress. He answers questions appropriately. * HEENT: Atraumatic and normocephalic. Nasal canula in place. * Cardiovascular: Regular rate and rhythm. S1 and S2 present. No murmurs, gallops, or rubs. * Respiratory: CTA bilaterally with diffusely decreased breath sounds. No wheezes, crackles, or rhonchi noted. * Gastrointestinal: Hypoactive bowel sounds x 4 quadrants. Abdomen is distended , generalized tenderness present. * Extremities: No clubbing or cyanosis. 1+ tight bilateral LE edema present that is improved from yesterday. Tubigrip socks present. - Patient Status Overall status at discharge: patient is progressing back to baseline
[2018-03-22] MEDS: LUBIPROSTONE PO SCH (10:17)
--- NOTE | 2018-03-22 10:29 | Nephrology Progress Note ---
Date of Encounter: 03/22/18 Time of Encounter: 10:58 - Assessment and Plan (1) CKD (chronic kidney disease) stage 3, GFR 30-59 ml/min Current Visit: Yes Status: Acute Recommendations for home: KCL 20 meq daily. 80 Lasix in am and 40 lasix in evening. BMP every week outpatient and f/u with Dr. Wynn in 4 weeks. Is followed by Dr. Wynn in the office. Baseline GFR is 55-60. (2) Peripheral edema Current Visit: Yes Status: Acute See above. 1.5 Liter fluid restriction. (3) Rash Current Visit: Yes Status: Acute Bilat arms covered in small red raised papules/healed scabs. Pt c/o of itching. Derm recommendations appreciated. Subjective Principal diagnosis: AG/volume overload Interval history: Pt seen and examined. Admits to still feeling short of breath and fatigued. Objective - Vital Signs Vital signs: Vital Signs Temp Pulse Resp BP Pulse Ox 03/22/18 07:38 98.4 F 66 16 101/61 94 03/22/18 03:57 99.2 F 64 16 101/67 94 03/22/18 01:32 98.5 F 66 22 97/61 92 03/21/18 23:21 103/65 03/21/18 22:26 16 91 03/21/18 19:02 98.3 F 80 18 116/73 95 03/21/18 16:25 18 90 03/21/18 16:04 99.7 F H 65 17 111/72 93 03/21/18 12:32 98.8 F 72 16 104/67 90 03/21/18 11:07 20 88 Intake and Output 03/21/18 03/22/18 03/22/18 23:59 07:59 15:59 Intake Total 940 / 940 360 / 360 Output Total 850 / 850 900 / 900 Balance 90 / 90 -900 / -900 360 / 360 Intake: Oral 940 / 940 360 / 360 Output: Urine 850 / 850 100 / 100 Catheter 800 / 800 Other: Meal Breakfast Percent of Meal Consumed 100% Weight 138 kg Blood Glucose* 139 100 Patient Weight 03/22/18 23:59 Weight 138 kg - General Appearance General appearance: Present: well-developed, well-nourished, obese EENT: Present: ATNC, hearing intact, vision intact Neck: Present: supple Respiratory: Present: clear Cardiology: Present: edema (+2 pitting edema noted.), normal S1, normal S2 Gastrointestinal: Present: normoactive bowel sounds, no tenderness, no guarding Integumentary: Present: no rash, warm and dry Neurologic: Present: alert and oriented x3 Psychiatric: Present: mood/affect appropriate, cooperative - Lab 03/22/18 05:22 03/22/18 05:22 Most recent lab results Calcium 8.8 mg/dL (8.6-10.3) 03/22/18 05:22 Magnesium 2.1 mg/dL (1.6-2.6) 03/20/18 06:42 Consult Discharge Plan - Plan Referrals: Krish-Edda Banda DO [Primary Care Provider] -
[2018-03-22] MEDS: Aspirin Enteric Coated 81 MG Tablet PO SCH (10:33)
[2018-03-22] MEDS: Insulin LISPRO 300 UNITS/3 ML VIAL SQ SCH ×2 (10:33→13:39)
[2018-03-22] MEDS: tiZANidine 4 MG TABLET PO SCH (10:33)
[2018-03-22] MEDS: Sennosides/Docusate Sodium TABLET PO SCH (10:34)
[2018-03-22] MEDS: *HR* Amiodarone 200 MG TABLET PO SCH (10:34)
[2018-03-22] MEDS: Finasteride 5 MG TABLET PO SCH (10:34)
[2018-03-22] MEDS: Gabapentin 400 MG CAPSULE PO SCH (10:35)
[2018-03-22] MEDS: Furosemide 40 MG TABLET PO SCH (10:35)
[2018-03-22] MEDS: Fluticasone Propionate Nasal 50 MCG/SPRAY BOTTLE NS SCH (10:39)
[2018-03-22] MEDS: Budesonide/Formoterol 160/4.5 1 PUFF INH IH SCH (11:03)
[2018-03-22 11:45] VITALS: BP 105/67
--- NOTE | 2018-03-22 13:46 | Cardiology Consult Note ---
Date of Encounter: 03/22/18 Time of Encounter: 13:45 Assessment and Plan (1) CHF exacerbation Current Visit: Yes Status: Acute Per Cardiology: Admit for acute on chronic diastolic CHF exacerbation. Medical records reviewed and during hospital stay patient is net negative about 9.5 L and down a total of almost 10 pounds. Clinically appears improved. Previous home Lasix was 40 mg by mouth twice a day prior to admission. It appears current recommendations are to send home on Lasix 80 mg in the morning 40 in the evening. Discussed and reviewed with Dr. Mejía, agree with those recommendations. Kidney function stable and has been followed by nephrology. Patient appears clinically stable for discharge. Cardiology will sign off, anticipate discharge home today, will correlate follow-up in cardiology office within the next 5-7 days for close monitoring. Patient verbalized understanding and agree to plan. All questions answered. Per Dr. Flood's last note: Prior studies: TTE, [facility] 01/2018: LVEF 55-60%. Normal LV systolic and diastolic function. RV was normal in size and function. Mild aortic regurgitation. Right heart catheterization, [facility] 01/2018: Right atrial pressure 2 mmHg. RV 36/6 monitors of mercury. PA 36/13 mmHg. Pulmonary capillary wedge pressure 6 at end expiration. Nava cardiac output and index are 6.5 and 2.6, respectively. [facility] 07/08/2017: LM nl. LAD, D1 nl. Cx, OM1 nl. RCA, RPDA nl. TT07/05/2017: LVEF 55%. Normal LV, RV size and function. No pHTN. No VHD. Device lead noted. EP study/AF ablation 09/11/2015 ([facility]): Successful pulmonary vein isolation. Device interrogation 04/22/2016: Normal device function. No events. TTE 06/24/2015: EF 55%. All segments were well visualized. No significant valvular dysfunction. No evidence of pulmonary hypertension. Limited TTE 02/26/2016: EF 60%. Normal LV size and function. TTE 04/18/2016: EF 60%. Normal right ventricular structure. Moderate left diastolic dysfunction. Mild mitral regurgitation. Moderately dialated left atrium. Mild pulmonary hypertension. Estimated RVSP 41mmHg. TTE 02/14/2017: LVEF 60%. Mild diastolic dysfunction. Dilated RV with normal function. Mild to moderate TR. No pHTN identified. Suboptimal agitated saline injection, no obvious PFO. Left heart catheterization 02/06/2014: Normal coronary arteries. Reportedly, brief CPR and 200 J shock. Carotid duplex 01/29/2016: Normal bilaterally. Qualifiers: Heart failure type: diastolic Qualified Code(s): I50.33 - Acute on chronic diastolic (congestive) heart failure Discussion w patient/family: The assessment and plan as outlined above was discussed with the patient who expressed understanding and agreement. All questions were answered. Thank you for involving us in the care of your patient. Please call with any questions. History of Present Illness Consult date: 03/22/18 Requesting physician: Chris Skelton Consult reason: CHF, Patient request Chief complaint: Weight Gain History of present illness: Mr. Issa is a 68 year old male with a relevant past medical history of paroxysmal atrial fibrillation, sick sinus syndrome with pacemaker, diastolic CHF, history of A. fib ablation at [facility] September 2015-- with history of being on Rythmol and Tiokosyn, currently on amiodarone. Seen by Dr. Flood 03/14/2018 since the hospital for CHF exacerbation. Cardiology consult today prior to discharge for evaluation per patient request. Patient reports overall improvement in shortness of breath and swelling during hospital stay. He denies any chest pain or palpitations. Reports slightly anxious prior to discharge since cardiology has not seen patient during this admission for his congestive heart failure. He reports he presented initially for weight gain. He reports baseline weight previously about 270 pounds and recently around 300 pounds. Was taking Lasix 40 mg by mouth twice a day prior to admission. He does report he utilizes oxygen at home at night and as needed. Past Med Surg Social Fam HX - Past Medical History Attestation: Yes The following information was validated with the patient. Source: patient, old records reviewed Medical history: arthritis, atrial fibrillation, CHF, COPD, coronary artery disease, CVA, diabetes, GERD, hyperlipidemia, hypertension, pulmonary embolus, renal disease Additional medical history: Pacemaker, emphysema Psychiatric history: anxiety, depression - Past Surgical History Surgical History: cholecystectomy, herniorrhaphy, knee replacement, orthopedic, other, pacemaker/AICD Additional surgical history: Right knee replacement. Cardiac Ablasion. left arm - Social History Smoking Status: Former smoker Smokeless Tobacco Status: No Alcohol use: none Drug use: none - Family History Father Adopted: No Family Member Ethnicity: Non- Living Status: Hx Family Cardiac Disorders: No Hx Family Respiratory Disorders: No Hx Family Cancer: Yes (Leukemia) Hx Family GI Disorders: No Hx Family Endocrine Disorder: No Hx Family Neuromuscular Disorders: No Hx Family Neurologic Disorders: No Hx Family HEENT Disorders: No Hx Family Autoimmune Disorders: No Brother Family Member Ethnicity: Non- Living Status: Still Living Sister Family Member Ethnicity: Non- Living Status: Still Living Mother Adopted: No Family Member Ethnicity: Non- Twin of Family Member: Yes Living Status: Hx Family Cardiac Disorders: Yes (CHF, Afib) Hx Family Respiratory Disorders: No Hx Family Cancer: Yes (Leukemia (father)) Hx Family GI Disorders: No Hx Family Endocrine Disorder: No Hx Family Neuromuscular Disorders: No Hx Family Neurologic Disorders: No Hx Family HEENT Disorders: No Hx Family Autoimmune Disorders: Yes (arthritis) Medications and Allergies Aspirin Enteric Coated [Aspirin EC] 81 mg PO DAILY #0 04/09/15 [History] Rivaroxaban [Xarelto] 20 mg PO DAILY #0 04/09/15 [History] Albuterol Sulfate [Proair Hfa] 2 puff IH Q4H PRN 12/14/16 [History] Atorvastatin [Lipitor] 40 mg PO HS 12/14/16 [History] Gabapentin [Neurontin] 400 mg PO BID 12/14/16 [History] Pantoprazole Sodium [Protonix] 40 mg PO DAILY 12/14/16 [History] Polyethylene Glycol 3350 [MiraLAX Powder Bulk 17.9 Oz] 17 gm PO DAILY PRN [History] Tizanidine HCl [Zanaflex] 2 mg PO BID 12/14/16 [History] DULoxetine [Cymbalta] 30 mg PO DAILY 02/14/17 [History] Tamsulosin [Flomax] 0.4 mg PO BID 02/14/17 [History] Amiodarone [Cordarone] 200 mg PO DAILY 07/05/17 [History] Finasteride [Proscar] 5 mg PO DAILY 07/05/17 [History] Memantine HCl 10 mg PO BID 07/05/17 [History] Tiotropium Br/Olodaterol HCl [Stiolto Respimat Inhal [place]] 2 puff IH DAILY 11/17 [History] Cholecalciferol (D-3) [Vitamin D] 2,000 unit PO DAILY 10/04/17 [History] Fluticasone Propionate Nasal [Flonase] 2 spr NS DAILY 10/04/17 [History] Fluticasone/Salmeterol [Advair 250-50 Diskus] 1 puff IH BID 10/04/17 [History] Lubiprostone [Amitiza] 16 mcg PO BID 10/04/17 [History] Melatonin [Melatin] 9 mg PO HS 10/04/17 [History] Metoprolol XL (24 HR) Succ [Toprol Xl] 12.5 mg PO QPM 10/04/17 [History] Simethicone [Gas-X] 80 mg PO TID PRN tab.chew 10/30/17 [Rx] LORazepam [Ativan] 0.5 mg PO HS 10 Days #10 tablet 01/28/18 [Rx] Midodrine [ProAmatine] 5 mg PO BID tablet 01/28/18 [Rx] OxyCODONE Immed Rel [Roxicodone 10 MG] 10 mg PO TID PRN 5 Days #15 tablet [Rx] Sennosides/Docusate Sodium [Docusate Sodium-Senna Tablet] 1 tab PO BID PRN 03/14 [History] Trazodone HCl 200 mg PO HS 03/14/18 [History] Furosemide [Lasix] 40 mg PO QPM #30 tablet 03/22/18 [Rx] Furosemide [Lasix] 80 mg PO QAM #30 tablet 03/22/18 [Rx] Potassium Chloride 20 meq PO DAILY #30 tab.er.prt 03/22/18 [Rx] 3 Allergy/AdvReac Type Severity Reaction Status Date / Time IVP DYE Allergy Severe Anaphylaxis Uncoded 01/12/18 18:14 All Systems Review: The remainder of the systems were reviewed and are negative - Constitutional Constitutional: fatigue, weight gain - Cardiovascular Cardiovascular: as per HPI, dyspnea at rest, dyspnea on exertion, leg edema Physical Examination Vital Signs, Last 4 Hours Temp Pulse Resp BP Pulse Ox 03/22/18 11:44 98.0 F 77 18 105/67 93 03/22/18 11:05 16 97 General: Conversant, No Apparent Distress HEENT: Atraumatic, Normocephaly, Mucus Membranes Moist Neck: No JVD, Normal carotid pulses Cardiac: Reg Rate and Rhythm, Normal S1 and S2, No Murmur Lungs: Normal Breath Sounds, No Wheeze, Rales, Rhonchi Neuro: Alert and responsive, No focal deficits noted Abdomen: Soft, Non-Tender, Other (slightly distended) Skin: No rashes noted on visualized skin, Other Musculoskeletal: No Chest Wall Tenderness Extremities: No Clubbing, No Cyanosis, No Edema, Normal Pulses Results 03/22/18 05:22 03/22/18 05:22 Lab Results - Imaging and Cardiology Echo: report reviewed Cardiac cath: report reviewed Consult Discharge Plan - Plan Additional Instructions: Take lasix 80mg every morning and 40mg every night. Take 20mEq KCl daily. Continue other home medications. Have blood drawn weekly for BMP. Follow up with Dr. Wynn in nephrology in 4 weeks. Follow up with your PCP within 3-5 days of hospital discharge. Stick to a low-salt diet as much as possible. Maintain fluid selectivity at 1.5L /day. Increase physical activity as directed by PT. Return to the ED if you have worsening symptoms or if new concerns arise. Referrals: Krish-Edda Banda DO [Primary Care Provider] - Prescriptions: Furosemide [Lasix] 40 mg PO QPM #30 tablet Furosemide [Lasix] 80 mg PO QAM #30 tablet Potassium Chloride 20 meq PO DAILY #30 tab.er.prt
--- NOTE | 2018-03-22 14:15 | Physician Discharge Referral ---
ExtendedCare Referral Info Transfer To: [facility] Provider in Charge: Dr. Chris Skelton Provider in Charge after Transfer: PCP - Diagnosis (1) CHF exacerbation Priority: Primary Status: Acute (2) CKD (chronic kidney disease) Priority: Secondary Status: Chronic (3) Productive cough Priority: Secondary Status: Acute (4) Constipation by delayed colonic transit Priority: Secondary Status: Chronic (5) Atrial fibrillation Priority: Secondary Status: Chronic (6) COPD (chronic obstructive pulmonary disease) Priority: Secondary Status: Chronic (7) HTN (hypertension) Priority: Secondary Status: Chronic (8) Diabetes mellitus Priority: Secondary Status: Chronic (9) Rash Priority: Secondary Status: Acute Prognosis: Fair Aware of Diagnosis: Patient, Family Aware of Prognosis: Patient, Family - Transfer Medications Prescriptions: Furosemide [Lasix] 40 mg PO QPM #30 tablet Furosemide [Lasix] 80 mg PO QAM #30 tablet Potassium Chloride 20 meq PO DAILY #30 tab.er.prt Home Medications: Aspirin Enteric Coated [Aspirin EC] 81 mg PO DAILY #0 04/09/15 [History] Rivaroxaban [Xarelto] 20 mg PO DAILY #0 04/09/15 [History] Albuterol Sulfate [Proair Hfa] 2 puff IH Q4H PRN 12/14/16 [History] Atorvastatin [Lipitor] 40 mg PO HS 12/14/16 [History] Gabapentin [Neurontin] 400 mg PO BID 12/14/16 [History] Pantoprazole Sodium [Protonix] 40 mg PO DAILY 12/14/16 [History] Polyethylene Glycol 3350 [MiraLAX Powder Bulk 17.9 Oz] 17 gm PO DAILY PRN [History] Tizanidine HCl [Zanaflex] 2 mg PO BID 12/14/16 [History] DULoxetine [Cymbalta] 30 mg PO DAILY 02/14/17 [History] Tamsulosin [Flomax] 0.4 mg PO BID 02/14/17 [History] Amiodarone [Cordarone] 200 mg PO DAILY 07/05/17 [History] Finasteride [Proscar] 5 mg PO DAILY 07/05/17 [History] Memantine HCl 10 mg PO BID 07/05/17 [History] Tiotropium Br/Olodaterol HCl [Stiolto Respimat Inhal [place]] 2 puff IH DAILY 11/17 [History] Cholecalciferol (D-3) [Vitamin D] 2,000 unit PO DAILY 10/04/17 [History] Fluticasone Propionate Nasal [Flonase] 2 spr NS DAILY 10/04/17 [History] Fluticasone/Salmeterol [Advair 250-50 Diskus] 1 puff IH BID 10/04/17 [History] Lubiprostone [Amitiza] 16 mcg PO BID 10/04/17 [History] Melatonin [Melatin] 9 mg PO HS 10/04/17 [History] Metoprolol XL (24 HR) Succ [Toprol Xl] 12.5 mg PO QPM 10/04/17 [History] Simethicone [Gas-X] 80 mg PO TID PRN tab.chew 10/30/17 [Rx] LORazepam [Ativan] 0.5 mg PO HS 10 Days #10 tablet 01/28/18 [Rx] Midodrine [ProAmatine] 5 mg PO BID tablet 01/28/18 [Rx] OxyCODONE Immed Rel [Roxicodone 10 MG] 10 mg PO TID PRN 5 Days #15 tablet [Rx] Sennosides/Docusate Sodium [Docusate Sodium-Senna Tablet] 1 tab PO BID PRN 03/14 [History] Trazodone HCl 200 mg PO HS 03/14/18 [History] Furosemide [Lasix] 40 mg PO QPM #30 tablet 03/22/18 [Rx] Furosemide [Lasix] 80 mg PO QAM #30 tablet 03/22/18 [Rx] Potassium Chloride 20 meq PO DAILY #30 tab.er.prt 03/22/18 [Rx] Allergies/Adverse Reactions: 3 Allergy/AdvReac Type Severity Reaction Status Date / Time IVP DYE Allergy Severe Anaphylaxis Uncoded 01/12/18 18:14 - Respiratory Orders Oxygen / L per min Smoking Cessation: Smoking cessation has been advised. For more information, call the [place] Tobacco Quit Line at 6-570-OMDG-NOW. - Lab Orders Lab Orders: Other (include drug levels w/frequency) (Weekly BMP x 4 weeks) - Ancillary Orders May use pressure relief devices daily prn - Mobility Orders Ambulate, Other (Per PT recommendations) - Rehabiliation Orders Rehab Potential: Fair Rehab Orders: ROM Exercises, Evaluation for Physical Therapy, Evaluation for Occupational Therapy - Treatments Skin tear care topically daily PRN per policy - Diet Orders Renal (1.5L daily fluid restriction) CERTIFICATION: I certify that the transfer of the above named patient to an Extended Care Facility is necessary for the continuing treatment of the diagnosis listed. The above information is true and accurate reflection of patient's current condition. Confidential - Redisclosure prohibited without a patient's written consent.
== END 2018-03-22 16:20 | DRG 291 ==
LOC: 3BNU 14:33 → EMEROOARM 14:33 → SUATTDRO 18:25 → 3BNU 19:40
PROVIDERS: ADMIT Student in an Organized Health Care Education/Training Program; ATTEND Internal Medicine

== ENCOUNTER 2018-04-03 22:43 | Inpatient (IN) ==
[2018-04-03] MEDS ORDERED: Furosemide 40 MG/4 ML VIAL IVP ONE (23:12)
[2018-04-03] MEDS ORDERED: Isovue-370 500 ML INFUS..BTL IV ONE (23:13)
[2018-04-03 23:33] LABS: Basophils # 0.1 K/mcL (0.0-0.2); Basophils % 0.5 %; Eosinophils # 0.3 K/mcL (0.0-0.6); Eosinophils % 2.8 %; Hematocrit 36.8 % (37.5-50.1); Hemoglobin 11.7 g/dL (12.9-16.9); Immature Granulocytes % 0.5 % (0-4); Lymphocytes # 1.1 K/mcL (0.6-4.6); Mean Corpuscular HGB Conc 31.8 g/dL (31.6-35.5); Mean Corpuscular Hemoglobin 28.2 pg (28.0-33.3); Mean Corpuscular Volume 88.7 fL (83.0-100.0); Mean Platelet Volume 9.1 fL (9.4-12.4); Monocytes % 9.4 %; Neutrophils # 8.4 K/mcL (1.6-8.9); Platelet Count 350 K/mcL (140-400); Red Blood Count 4.15 M/mcL (4.19-5.50); Red Cell Distribution Width 14.6 % (11.5-14.5); Segmented Neutrophils % 76.8 %
--- NOTE | 2018-04-03 23:42 | Emergency Department Note ---
Disposition Clinical Impression: Chest heaviness CHF (congestive heart failure) Qualifiers: Heart failure type: other Qualified Code(s): I50.9 - Heart failure, unspecified Ducdd-xe-yplinct kidney injury Qualifiers: Acute renal failure type: unspecified Chronic kidney disease stage: unspecified stage Qualified Code(s): N17.9 - Acute kidney failure, unspecified; N18.9 - Chronic kidney disease, unspecified Disposition: Admitted As Inpatient Condition: Fair Forms: ED Satisfaction Letter, Work/School Release Time of Disposition: 00:36 General Adult HPI - General Chief complaint: ED General Medical Stated complaint: "fluid build up" Time Seen by Provider: 04/03/18 22:49 Source: patient, EMS Mode of arrival: EMS Limitations: no limitations Nursing Notes Reviewed: Yes Vital Signs Reviewed: Yes - History of Present Illness HPI Narrative: Patient presents to the ED with the chief complaint of bilateral lower extremity edema, shortness breath and chest pain. Has a history of CHF and states that he feels like he is getting worse. His breathing has been slightly worse than usual and he normally has chest pressure, heaviness, weakness, CHF, accept. States that his legs had been so swollen that they are weeping. No fever or chills. Feels rundown and tired. Also having some associated abdominal pain. Some nausea. No vomiting. No diarrhea. No rash. Pain Scale: 10 - Related Data Home Medications Medication Instructions Recorded Confirmed Amiodarone [Cordarone] 200 mg PO DAILY 04/04/18 04/04/18 Aspirin 81 mg PO DAILY 04/04/18 04/04/18 Atorvastatin Calcium [Lipitor] 40 mg PO DAILY 04/04/18 04/04/18 LORazepam [Ativan] 0.5 mg PO DAILY 04/04/18 04/04/18 Melatonin [Melatin] 3 mg PO HS 04/04/18 04/04/18 Midodrine HCl 5 mg PO BID 04/04/18 04/04/18 Rivaroxaban [Xarelto] 20 mg PO DAILY 04/04/18 04/04/18 Tamsulosin HCl [Flomax] 0.4 mg PO DAILY 04/04/18 04/04/18 Allergies Allergy/AdvReac Type Severity Reaction Status Date / Time IVP DYE Allergy Severe Anaphylaxis Uncoded 04/03/18 22:56 Review of Systems: As reviewed in the HPI. All other systems reviewed are negative or normal. Past Medical History - Past Medical History Attestation: Yes The following information was validated with the patient. Source: patient, old records reviewed Medical history: Reports: arthritis, atrial fibrillation, CHF, COPD, coronary artery disease, CVA, diabetes, GERD, hyperlipidemia, hypertension, pulmonary embolus, renal disease Surgical history: Reports: cholecystectomy, herniorrhaphy, knee replacement, orthopedic, other, pacemaker/AICD Psychiatric history: Reports: anxiety, depression - Social History Smoking Status: Former smoker Smokeless Tobacco Status: No Alcohol use: Reports: none Drug use: Reports: none Physical Exam CONSTITUTIONAL: [well appearing, alert and in no acute distress] EYES: [EOMI, clear conjunctiva, PERRLA] HENT: [Normocephalic, atraumatic, moist mucus membranes, normal oropharynx] NECK: [normal inspection, full ROM, trachea midline, no obvious swelling] PULMONARY: [Decreased breath sounds bilateral bases, trace rales, no wheezing CARDIOVASCULAR: [regular rate, regular rhythm, normal heart sounds, no murmurs, distal extremities are warm and well perfused] GASTROINSTESTINAL: [soft, obese, distended, ascites] GENITOURINARY/RECTAL: [deferred] NEUROLOGIC: [Alert, oriented x3, normal speech, moves all extremities] EXTREMITIES: [Normal inspection, full ROM, no tenderness, 4+ pedal edema, normal capillary refill] MUSCULOSKELETAL: [no gross deformities, atraumatic] SKIN: [No cyanosis, no diaphoresis, pale warm, no rash] PSYCHIATRIC: [normal mood and affect] - General Limitations: no limitations General appearance: alert Course Course Narrative: Patient presenting with shortness breath and chest pain. Workup is back. Does seem to be consistent with CHF. We will admit to the hospital service Vital Signs Temperature 97.9 F 04/03/18 22:58 Pulse Rate 73 04/03/18 22:58 Respiratory Rate 17 04/03/18 22:58 Blood Pressure 134/77 04/03/18 22:58 O2 Sat by Pulse Oximetry 100 04/03/18 22:58 Temperature 97.9 F 04/03/18 22:58 Pulse Rate 74 04/04/18 00:08 Respiratory Rate 18 04/04/18 00:08 Blood Pressure 133/72 04/04/18 00:08 O2 Sat by Pulse Oximetry 95 04/04/18 00:08 Oxygen Delivery Oxygen Delivery Room Air Medical Decision Making - Lab Data Result diagrams: 04/03/18 23:20 04/03/18 23:20 Lab Results 04/03/18 04/03/18 04/03/18 Range/Units 23:20 23:20 23:20 WBC 11.0 (4.3-11.1) K/mcL RBC 4.15 L (4.19-5.50) M/mcL Hgb 11.7 L (12.9-16.9) g/dL Hct 36.8 L (37.5-50.1) % MCV 88.7 (83.0-100.0) fL MCH 28.2 (28.0-33.3) pg MCHC 31.8 (31.6-35.5) g/dL RDW 14.6 H (11.5-14.5) % Plt Count 350 (140-400) K/mcL MPV 9.1 L (9.4-12.4) fL Immature Gran % 0.5 (0-4) % Seg Neutrophils % 76.8 % Lymphocytes % 10.0 % Monocytes % 9.4 % Eosinophils % 2.8 % Basophils % 0.5 % Neutrophils # 8.4 (1.6-8.9) K/mcL Lymphocytes # 1.1 (0.6-4.6) K/mcL Monocytes # 1.0 (0.0-1.3) K/mcL Eosinophils # 0.3 (0.0-0.6) K/mcL Basophils # 0.1 (0.0-0.2) K/mcL Sodium 138 (136-145) mEq/L Potassium 3.1 L (3.5-5.1) mEq/L Chloride 97 L (98-107) mEq/L Carbon Dioxide 34 H (23-29) mEq/L BUN 18 (8-23) mg/dL Creatinine 1.39 H (0.70-1.30) mg/dL Est GFR ( Amer) > 60 (> 60) Est GFR (Non-Af Amer) 51 L (> 60) BUN/Creatinine Ratio 13 (6-26) Glucose 113 H (70-105) mg/dL Calculated Osmolality 289 (280-300) Lactic Acid 1.3 (0.5-2.2) mmol/L Calcium 9.2 (8.6-10.3) mg/dL Total Bilirubin 0.4 (0.3-1.0) mg/dL Direct Bilirubin 0.2 (0.0-0.2) mg/dL Indirect Bilirubin 0.2 (0.0-1.2) mg/dL AST 14 (13-39) Units/L ALT 19 (7-52) Units/L Alkaline Phosphatase 97 (34-104) Units/L Troponin I < 0.03 (< 0.04) ng/mL B-Natriuretic Peptide (Less than 100) pg/mL Serum Total Protein 6.6 (6.4-8.9) g/dL Albumin 3.9 (3.5-5.7) g/dL Globulin 2.7 (2.4-3.5) g/dL Albumin/Globulin Ratio 1.4 (1.1-2.2) Urine Color (Yellow) Urine Clarity (Clear) Urine pH (5.0-8.0) pH Units Ur Specific [place] (1.010-1.025) Urine Protein (Neg-Trace) mg/dL Urine Glucose (UA) (Normal) mg/dL Urine Ketones (Negative) mg/dL Urine Blood (Negative) Urine Nitrite (Negative) Urine Bilirubin (Negative) Urine Urobilinogen (Normal) mg/dL Ur Leukocyte Esterase (Negative) 04/03/18 04/03/18 Range/Units 23:20 23:54 WBC (4.3-11.1) K/mcL RBC (4.19-5.50) M/mcL Hgb (12.9-16.9) g/dL Hct (37.5-50.1) % MCV (83.0-100.0) fL MCH (28.0-33.3) pg MCHC (31.6-35.5) g/dL RDW (11.5-14.5) % Plt Count (140-400) K/mcL MPV (9.4-12.4) fL Immature Gran % (0-4) % Seg Neutrophils % % Lymphocytes % % Monocytes % % Eosinophils % % Basophils % % Neutrophils # (1.6-8.9) K/mcL Lymphocytes # (0.6-4.6) K/mcL Monocytes # (0.0-1.3) K/mcL Eosinophils # (0.0-0.6) K/mcL Basophils # (0.0-0.2) K/mcL Sodium (136-145) mEq/L Potassium (3.5-5.1) mEq/L Chloride (98-107) mEq/L Carbon Dioxide (23-29) mEq/L BUN (8-23) mg/dL Creatinine (0.70-1.30) mg/dL Est GFR ( Amer) (> 60) Est GFR (Non-Af Amer) (> 60) BUN/Creatinine Ratio (6-26) Glucose (70-105) mg/dL Calculated Osmolality (280-300) Lactic Acid (0.5-2.2) mmol/L Calcium (8.6-10.3) mg/dL Total Bilirubin (0.3-1.0) mg/dL Direct Bilirubin (0.0-0.2) mg/dL Indirect Bilirubin (0.0-1.2) mg/dL AST (13-39) Units/L ALT (7-52) Units/L Alkaline Phosphatase (34-104) Units/L Troponin I (< 0.04) ng/mL B-Natriuretic Peptide 86 (Less than 100) pg/mL Serum Total Protein (6.4-8.9) g/dL Albumin (3.5-5.7) g/dL Globulin (2.4-3.5) g/dL Albumin/Globulin Ratio (1.1-2.2) Urine Color Yellow (Yellow) Urine Clarity Clear (Clear) Urine pH 6.5 (5.0-8.0) pH Units Ur Specific [place] 1.010 (1.010-1.025) Urine Protein Negative (Neg-Trace) mg/dL Urine Glucose (UA) Normal (Normal) mg/dL Urine Ketones Negative (Negative) mg/dL Urine Blood Negative (Negative) Urine Nitrite Negative (Negative) Urine Bilirubin Negative (Negative) Urine Urobilinogen Normal (Normal) mg/dL Ur Leukocyte Esterase Trace H (Negative)
[2018-04-03 23:58] LABS: Alanine Aminotransferase 19 Units/L (7-52); Albumin 3.9 g/dL (3.5-5.7); Albumin/Globulin Ratio 1.4 (1.1-2.2); Alkaline Phosphatase 97 Units/L (34-104); Aspartate Amino Transferase 14 Units/L (13-39); BUN/Creatinine Ratio 13 (6-26); Bilirubin,Direct 0.2 mg/dL (0.0-0.2); Bilirubin,Indirect 0.2 mg/dL (0.0-1.2); Bilirubin,Total 0.4 mg/dL (0.3-1.0); Blood Urea Nitrogen 18 mg/dL (8-23); Calcium 9.2 mg/dL (8.6-10.3); Carbon Dioxide 34 mEq/L (23-29); Chloride 97 mEq/L (98-107); Globulin 2.7 g/dL (2.4-3.5); Glucose 113 mg/dL (70-105); Osmolality,Calculated 289 (280-300); Potassium 3.1 mEq/L (3.5-5.1); Sodium 138 mEq/L (136-145); Total Protein 6.6 g/dL (6.4-8.9); eGFR For Non-African Americans 51 (> 60)
[2018-04-03 23:59] LABS: Troponin I < 0.03 ng/mL (< 0.04)
[2018-04-04 00:16] LABS: Bilirubin,Urine Negative (Negative); Blood,Urine Negative (Negative); Clarity,Urine Clear (Clear); Color,Urine Yellow (Yellow); Glucose,Urine (UA) Normal (Normal); Ketones,Urine Negative (Negative); Leukocyte Esterase,Urine Trace (Negative); Nitrite,Urine Negative (Negative); PH,Urine 6.5 pH Units (5.0-8.0); Protein,Urine Negative (Neg-Trace); Urobilinogen,Urine Normal (Normal)
[2018-04-04 00:33] LABS: Bacteria,Urine Many per hpf (None-Few); Hyaline Casts,Urine None Seen per lpf (None-Few); RBC,Urine 0-3 per hpf (0-3); Squamous Epithelial Cell,Urine None Seen per lpf (None-Few)
--- NOTE | 2018-04-04 00:37 | Emergency Department Note ---
Disposition Clinical Impression: COPD exacerbation CHF (congestive heart failure) Qualifiers: Heart failure type: other Qualified Code(s): I50.9 - Heart failure, unspecified Disposition: Admitted As Inpatient Referrals: Krish-Edda Banda DO [Primary Care Provider] - Forms: ED Satisfaction Letter, Work/School Release General Adult HPI - General Chief complaint: ED General Medical Stated complaint: "fluid build up" Time Seen by Provider: 04/03/18 22:49 Source: patient, EMS Mode of arrival: EMS Limitations: no limitations - History of Present Illness Pain Scale: 10 - Related Data Home Medications Medication Instructions Recorded Confirmed Amiodarone [Cordarone] 200 mg PO DAILY 04/04/18 04/04/18 Aspirin 81 mg PO DAILY 04/04/18 04/04/18 Atorvastatin Calcium [Lipitor] 40 mg PO DAILY 04/04/18 04/04/18 LORazepam [Ativan] 0.5 mg PO DAILY 04/04/18 04/04/18 Melatonin [Melatin] 3 mg PO HS 04/04/18 04/04/18 Midodrine HCl 5 mg PO BID 04/04/18 04/04/18 Rivaroxaban [Xarelto] 20 mg PO DAILY 04/04/18 04/04/18 Tamsulosin HCl [Flomax] 0.4 mg PO DAILY 04/04/18 04/04/18 Allergies Allergy/AdvReac Type Severity Reaction Status Date / Time IVP DYE Allergy Severe Anaphylaxis Uncoded 04/03/18 22:56 Past Medical History - Past Medical History Medical history: Reports: arthritis, atrial fibrillation, CHF, COPD, coronary artery disease, CVA, diabetes, GERD, hyperlipidemia, hypertension, pulmonary embolus, renal disease Surgical history: Reports: cholecystectomy, herniorrhaphy, knee replacement, orthopedic, other, pacemaker/AICD Psychiatric history: Reports: anxiety, depression - Social History Smoking Status: Former smoker Smokeless Tobacco Status: No Alcohol use: Reports: none Drug use: Reports: none Physical Exam - General Limitations: no limitations General appearance: alert Course Vital Signs Temperature 97.9 F 04/03/18 22:58 Pulse Rate 73 04/03/18 22:58 Respiratory Rate 17 04/03/18 22:58 Blood Pressure 134/77 04/03/18 22:58 O2 Sat by Pulse Oximetry 100 04/03/18 22:58 Temperature 97.9 F 04/03/18 22:58 Pulse Rate 74 04/04/18 00:08 Respiratory Rate 18 04/04/18 00:08 Blood Pressure 133/72 04/04/18 00:08 O2 Sat by Pulse Oximetry 95 04/04/18 00:08 Oxygen Delivery Oxygen Delivery Room Air Medical Decision Making - Lab Data Result diagrams: 04/03/18 23:20 04/03/18 23:20 Lab Results 04/03/18 04/03/18 04/03/18 Range/Units 23:20 23:20 23:20 WBC 11.0 (4.3-11.1) K/mcL RBC 4.15 L (4.19-5.50) M/mcL Hgb 11.7 L (12.9-16.9) g/dL Hct 36.8 L (37.5-50.1) % MCV 88.7 (83.0-100.0) fL MCH 28.2 (28.0-33.3) pg MCHC 31.8 (31.6-35.5) g/dL RDW 14.6 H (11.5-14.5) % Plt Count 350 (140-400) K/mcL MPV 9.1 L (9.4-12.4) fL Immature Gran % 0.5 (0-4) % Seg Neutrophils % 76.8 % Lymphocytes % 10.0 % Monocytes % 9.4 % Eosinophils % 2.8 % Basophils % 0.5 % Neutrophils # 8.4 (1.6-8.9) K/mcL Lymphocytes # 1.1 (0.6-4.6) K/mcL Monocytes # 1.0 (0.0-1.3) K/mcL Eosinophils # 0.3 (0.0-0.6) K/mcL Basophils # 0.1 (0.0-0.2) K/mcL Sodium 138 (136-145) mEq/L Potassium 3.1 L (3.5-5.1) mEq/L Chloride 97 L (98-107) mEq/L Carbon Dioxide 34 H (23-29) mEq/L BUN 18 (8-23) mg/dL Creatinine 1.39 H (0.70-1.30) mg/dL Est GFR ( Amer) > 60 (> 60) Est GFR (Non-Af Amer) 51 L (> 60) BUN/Creatinine Ratio 13 (6-26) Glucose 113 H (70-105) mg/dL Calculated Osmolality 289 (280-300) Lactic Acid 1.3 (0.5-2.2) mmol/L Calcium 9.2 (8.6-10.3) mg/dL Total Bilirubin 0.4 (0.3-1.0) mg/dL Direct Bilirubin 0.2 (0.0-0.2) mg/dL Indirect Bilirubin 0.2 (0.0-1.2) mg/dL AST 14 (13-39) Units/L ALT 19 (7-52) Units/L Alkaline Phosphatase 97 (34-104) Units/L Troponin I < 0.03 (< 0.04) ng/mL B-Natriuretic Peptide (Less than 100) pg/mL Serum Total Protein 6.6 (6.4-8.9) g/dL Albumin 3.9 (3.5-5.7) g/dL Globulin 2.7 (2.4-3.5) g/dL Albumin/Globulin Ratio 1.4 (1.1-2.2) Urine Color (Yellow) Urine Clarity (Clear) Urine pH (5.0-8.0) pH Units Ur Specific [place] (1.010-1.025) Urine Protein (Neg-Trace) mg/dL Urine Glucose (UA) (Normal) mg/dL Urine Ketones (Negative) mg/dL Urine Blood (Negative) Urine Nitrite (Negative) Urine Bilirubin (Negative) Urine Urobilinogen (Normal) mg/dL Ur Leukocyte Esterase (Negative) Urine Microscopic RBC (0-3) per hpf Urine Microscopic WBC (0-3) per hpf Ur Squamous Epith Cells (None-Few) per lpf Urine Bacteria (None-Few) per hpf Hyaline Casts (None-Few) per lpf Ur Culture Indicated? (NO) 04/03/18 04/03/18 Range/Units 23:20 23:54 WBC (4.3-11.1) K/mcL RBC (4.19-5.50) M/mcL Hgb (12.9-16.9) g/dL Hct (37.5-50.1) % MCV (83.0-100.0) fL MCH (28.0-33.3) pg MCHC (31.6-35.5) g/dL RDW (11.5-14.5) % Plt Count (140-400) K/mcL MPV (9.4-12.4) fL Immature Gran % (0-4) % Seg Neutrophils % % Lymphocytes % % Monocytes % % Eosinophils % % Basophils % % Neutrophils # (1.6-8.9) K/mcL Lymphocytes # (0.6-4.6) K/mcL Monocytes # (0.0-1.3) K/mcL Eosinophils # (0.0-0.6) K/mcL Basophils # (0.0-0.2) K/mcL Sodium (136-145) mEq/L Potassium (3.5-5.1) mEq/L Chloride (98-107) mEq/L Carbon Dioxide (23-29) mEq/L BUN (8-23) mg/dL Creatinine (0.70-1.30) mg/dL Est GFR ( Amer) (> 60) Est GFR (Non-Af Amer) (> 60) BUN/Creatinine Ratio (6-26) Glucose (70-105) mg/dL Calculated Osmolality (280-300) Lactic Acid (0.5-2.2) mmol/L Calcium (8.6-10.3) mg/dL Total Bilirubin (0.3-1.0) mg/dL Direct Bilirubin (0.0-0.2) mg/dL Indirect Bilirubin (0.0-1.2) mg/dL AST (13-39) Units/L ALT (7-52) Units/L Alkaline Phosphatase (34-104) Units/L Troponin I (< 0.04) ng/mL B-Natriuretic Peptide 86 (Less than 100) pg/mL Serum Total Protein (6.4-8.9) g/dL Albumin (3.5-5.7) g/dL Globulin (2.4-3.5) g/dL Albumin/Globulin Ratio (1.1-2.2) Urine Color Yellow (Yellow) Urine Clarity Clear (Clear) Urine pH 6.5 (5.0-8.0) pH Units Ur Specific [place] 1.010 (1.010-1.025) Urine Protein Negative (Neg-Trace) mg/dL Urine Glucose (UA) Normal (Normal) mg/dL Urine Ketones Negative (Negative) mg/dL Urine Blood Negative (Negative) Urine Nitrite Negative (Negative) Urine Bilirubin Negative (Negative) Urine Urobilinogen Normal (Normal) mg/dL Ur Leukocyte Esterase Trace H (Negative) Urine Microscopic RBC 0-3 (0-3) per hpf Urine Microscopic WBC 5-15 H (0-3) per hpf Ur Squamous Epith Cells None Seen (None-Few) per lpf Urine Bacteria Many H (None-Few) per hpf Hyaline Casts None Seen (None-Few) per lpf Ur Culture Indicated? YES A (NO) Attestation Statement - Attestation Attestation: I examined this patient and my medical decision-making was reviewed with the Resident Physician. I agree with the documented findings, disposition and treatment plan as described except to the extent set forth below. 68 year old male presents to the ED with complaints of chest heaviness and pitting edema in bilateral LE with shortness of breath with evidence of pulmonary edema on CXR. THis is like a COPD/CHF excerabtion and although is bnp is in the 80s he still apparsto be fluid overloaded. WE will admit to medicine
[2018-04-04] MEDS ORDERED: Naloxone 0.4 MG/ML INJ IVP PRN (04:37)
[2018-04-04] MEDS ORDERED: *HR* Dextrose 50 % in Water (Syg) 50 ML SYRINGE IVP PRN (04:38)
[2018-04-04] MEDS ORDERED: D5% in Water 1,000 ML IVC PRN (04:38)
[2018-04-04] MEDS ORDERED: Dextrose Gel 15 GM/37.5 ML TUBE PO PRN ×2 (04:38)
[2018-04-04] MEDS ORDERED: Potassium Chloride 40 MEQ, Lidocaine 1% 2 ML in D5% in Water 500 ML IVPB ONE (07:13)
--- NOTE | 2018-04-04 07:16 | Internal Med History&Physical ---
Date of Encounter: 04/04/18 Time of Encounter: 04:10 Internal Medicine - H&P: HPI Chief complaint: CHF exacerbation, fluid overload Admitted From: Emergency Dept Plans for Post Hospital Care: Home History of present illness: Mr. Issa is a 68 year old male Patient presented to the ER with increased swelling in his lower extremities for the last few days. He says that it has now gotten to the point that he has pain with walking, and he is unable to do so. The swelling has continued, and now his right leg is weeping fluid. He has had this in the past, but never this bad. He was recently admitted to the hospital with edema and CHF on 03/14/18, discharged on 03/22/18. He says he was doing ok at home, but then the last few days things went down hill. He denies nausea, vomiting, diarrhea and constipation. No chest pain or shortness of breath. In the ER his CBC was within normal limits, troponin was undetectable. BMP showed hypokalemia of 3.1. Chest xray showed patchy airspace disease, and abdominal CT was unremarkable. UA showed trace Leukocyte esterase and many bacteria. Upon my assessment patient is resting in the hospital bed. He states that he feels cold, and that his legs hurt. Past Med Surg Social Fam HX - Past Medical History Medical history: arthritis, atrial fibrillation, CHF, COPD, coronary artery disease, CVA, diabetes, GERD, hyperlipidemia, hypertension, pulmonary embolus, renal disease Additional medical history: Pacemaker, emphysema Psychiatric history: anxiety, depression - Past Surgical History Surgical History: cholecystectomy, herniorrhaphy, knee replacement, orthopedic, other, pacemaker/AICD Additional surgical history: Right knee replacement. Cardiac Ablasion. left arm - Social History Smoking Status: Former smoker Smokeless Tobacco Status: No Alcohol use: none Drug use: none - Family History Father Adopted: No Family Member Ethnicity: Non- Living Status: Age at : 71 Cause of : leukemia Hx Family Cardiac Disorders: No Hx Family Respiratory Disorders: No Hx Family Cancer: Yes Hx Family GI Disorders: No Hx Family Genitourinary Disorders: No Hx Family Endocrine Disorder: No Hx Family Musculoskeletal Disorders: No Hx Family Neuromuscular Disorders: No Hx Family Neurologic Disorders: No Hx Family HEENT Disorders: No Hx Family Autoimmune Disorders: No Hx Family Reproductive Disorders: No Hx Family Psychosocial Disorders: No Hx Family Medical Disorders: No Brother History Unknown: Yes Family Member Ethnicity: Non- Living Status: Still Living Sister History Unknown: Yes Family Member Ethnicity: Non- Living Status: Still Living Mother Adopted: No Family Member Ethnicity: Non- Twin of Family Member: Yes Living Status: Cause of : kidney failure Hx Family Cardiac Disorders: Yes Hx Family Respiratory Disorders: No Hx Family Cancer: No Hx Family GI Disorders: No Hx Family Genitourinary Disorders: Yes Hx Family Endocrine Disorder: No Hx Family Musculoskeletal Disorders: No Hx Family Neuromuscular Disorders: No Hx Family Neurologic Disorders: No Hx Family HEENT Disorders: No Hx Family Autoimmune Disorders: No Hx Family Reproductive Disorders: No Hx Family Psychosocial Disorders: No Hx Family Medical Disorders: No Internal Medicine - H&P: Meds Albuterol Sulfate 2.5 mg IH DAILY 04/04/18 [History] Amiodarone [Cordarone] 200 mg PO DAILY 04/04/18 [History] Aspirin 81 mg PO DAILY 04/04/18 [History] Atorvastatin Calcium [Lipitor] 40 mg PO DAILY 04/04/18 [History] Cholecalciferol (Vitamin D3) [Vitamin D] 2,000 unit PO DAILY 04/04/18 [History] Duloxetine HCl 30 mg PO DAILY 04/04/18 [History] Finasteride [Proscar] 5 mg PO DAILY 04/04/18 [History] Fluticasone Propionate Nasal [Flonase] 50 mcg NS DAILY 04/04/18 [History] Fluticasone/Salmeterol [Advair 250-50 Diskus] 1 each IH DAILY 04/04/18 [History] Furosemide [Lasix] 40 mg PO DAILY 04/04/18 [History] Gabapentin [Neurontin] 400 mg PO HS 04/04/18 [History] Insulin ASPART [NovoLOG] unit SQ 04/04/18 [History] LORazepam [Ativan] 0.5 mg PO DAILY 04/04/18 [History] Lubiprostone [Amitiza] 16 mcg PO DAILY 04/04/18 [History] Melatonin [Melatin] 3 mg PO HS 04/04/18 [History] Memantine HCl 10 mg PO BID 04/04/18 [History] Metoprolol XL (24 HR) Succ [Toprol XL] 12.5 mg PO DAILY 04/04/18 [History] Midodrine HCl 5 mg PO BID 04/04/18 [History] Oxycodone HCl [Oxaydo] 10 mg PO HS 04/04/18 [History] Pantoprazole Sodium [Protonix] 40 mg PO DAILY 04/04/18 [History] Polyethylene Glycol 3350 [MiraLAX] 17 gm PO DAILY 04/04/18 [History] Potassium Chloride [Klor-Con 10] 20 meq PO DAILY 04/04/18 [History] Rivaroxaban [Xarelto] 20 mg PO DAILY 04/04/18 [History] Sennosides/Docusate Sodium [Colace 2-in-1 Tablet] 1 each PO HS 04/04/18 [History ] Simethicone [Bicarsim] 80 mg PO DAILY 04/04/18 [History] Tamsulosin HCl [Flomax] 0.4 mg PO DAILY 04/04/18 [History] Tizanidine HCl [Zanaflex] 2 mg PO TID 04/04/18 [History] Trazodone HCl 200 mg PO DAILY 04/04/18 [History] 3 Allergy/AdvReac Type Severity Reaction Status Date / Time IVP DYE Allergy Severe Anaphylaxis Uncoded 04/03/18 22:56 All Systems PM: A 10-system review of systems was performed and is negative for pertinent findings except as documented above in the HPI. - Constitutional Vitals: Temp Pulse Resp BP Pulse Ox 98.0 F 74 14 94/66 92 04/04/18 03:58 04/04/18 03:58 04/04/18 03:58 04/04/18 03:58 04/04/18 03:58 General appearance: Present: cooperative, mild distress, A&O X 3, pleasant, answers questions appropriately Exam: As above - Head Head exam: Present: normal inspection - Eye Eye exam: Present: EOMI, normal appearance - Neck Neck exam general surgery: Present: full ROM - Respiratory Respiratory exam: Present: CTAB. Absent: chest wall tenderness, decreased breath sounds, rales, respiratory distress, rhonchi, wheezes - Cardiovascular Cardiovascular exam: Present: RRR. Absent: diastolic murmur, systolic murmur - GI/Abdominal GI/Abdominal exam: Present: normal bowel sounds, soft. Absent: tenderness - Extremities Exam Extremities exam: Present: pedal edema, tenderness, warm, radial pulses palpable and symmetrical Additional comments: 3+ pitting edema, with bilateral tenderness. - Neurological Exam Neurological exam: Present: no focal deficits, strengths equal and symetr throughout. Absent: motor sensory deficit, facial droop, speech deficit - Skin Skin exam: Present: erythema, warm Additional comments: Lower extremity erythema secondary to edema Internal Med - H&P Results - Labs CBC & Chem 7: 04/03/18 23:20 04/03/18 23:20 - Assessment and plan (1) Edema Current Visit: No Status: Acute Assessment and plan: Bilateral lower extremity edema, has been on lasix at home, but continued to worsen. 40mg lasix IV given in ER Continue 40mg IV lasix BID Monitor I&Os Daily weights Qualifiers: Edema type: localized Qualified Code(s): R60.0 - Localized edema (2) CHF (congestive heart failure) Current Visit: Yes Status: Chronic Assessment and plan: History of diastolic congestive heart failure, recent admission for same . Seen by cardiology at that time. He was discharged on 80mg of lasix in the AM with 40mg in the evening. Continue IV lasix 40mg BID Strict I&Os Daily weights Monitor renal function while on IV lasix. Qualifiers: Heart failure type: diastolic Heart failure chronicity: acute on chronic Qualified Code(s): I50.33 - Acute on chronic diastolic (congestive) heart failure (3) Hypokalemia Current Visit: No Status: Acute Assessment and plan: 3.1 in ER. Likely secondary to lasix use. Replete, follow up with repeat labs. (4) Paroxysmal A-fib Current Visit: No Status: Chronic Assessment and plan: Chronic, on Xarelto for 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, and metoprolol. Currently rate is regular. Continue to monitor. (5) Diabetes mellitus Current Visit: No Status: Chronic Assessment and plan: Sliding scale insulin as needed. Monitor sugars with meals and at night Hold home meds. Qualifiers: Diabetes mellitus type: type 2 Diabetes mellitus aids social worker insulin use: without aids social worker use Diabetes mellitus complication status: with neurologic complications Diabetes mellitus complication detail: with polyneuropathy Qualified Code(s): E11.42 - Type 2 diabetes mellitus with diabetic polyneuropathy (6) DVT prophylaxis Current Visit: No Status: Acute Assessment and plan: On xarelto - Time Spent With Patient Total time spent is greater than 50% in coordination of care (as documented) at patient's floor/unit and/or counseling patient: Greater than 35 minutes
[2018-04-04] MEDS: Insulin LISPRO 300 UNITS/3 ML VIAL SQ SCH ×4 (07:50→22:05)
[2018-04-04] MEDS ORDERED: traZODone 50 MG TABLET PO SCH (09:00)
[2018-04-04] MEDS: Metoprolol XL (24 HR) Succ 25 MG TAB.ER.24H PO SCH (10:19)
[2018-04-04] MEDS: *HR* Rivaroxaban 10 MG TABLET PO SCH (10:20)
[2018-04-04] MEDS: Aspirin 81 MG TAB.CHEW PO SCH (10:20)
[2018-04-04] MEDS: Finasteride 5 MG TABLET PO SCH (10:21)
[2018-04-04] MEDS: Simethicone 80 MG TAB.CHEW PO SCH (10:21)
[2018-04-04] MEDS: tiZANidine 4 MG TABLET PO SCH ×3 (10:22→22:09)
[2018-04-04] MEDS: *HR* Amiodarone 200 MG TABLET PO SCH (10:22)
[2018-04-04] MEDS: Furosemide 40 MG/4 ML VIAL IVP SCH ×2 (10:23→22:06)
[2018-04-04] MEDS ORDERED: Albuterol 2.5 MG/3 ML NEBULIZER IH PRN (15:00)
[2018-04-04] MEDS: *HR* OxyCODONE Immed Rel 5 MG TABLET PO PRN (20:09)
[2018-04-04] MEDS: Budesonide/Formoterol 160/4.5 1 PUFF INH IH SCH (20:58)
[2018-04-04] MEDS ORDERED: *HR* OxyCODONE Immed Rel 5 MG TABLET PO SCH (21:00)
[2018-04-04] MEDS ORDERED: Sennosides/Docusate Sodium TABLET PO SCH (21:00)
[2018-04-04] MEDS ORDERED: Insulin DETEMIR 100 UNIT/ML X5UNITS SQ SCH (21:00)
[2018-04-04] MEDS ORDERED: Gabapentin 400 MG CAPSULE PO SCH (21:00)
[2018-04-04] MEDS ORDERED: Melatonin 3 MG TABLET PO SCH (21:00)
[2018-04-04] MEDS: *HR* LORazepam 0.5 MG TABLET PO SCH (22:05)
[2018-04-04] MEDS: Melatonin 3 MG TABLET PO SCH (22:08)
[2018-04-04] MEDS: traZODone 50 MG TABLET PO SCH (22:09)
[2018-04-05 07:29] LABS: BUN/Creatinine Ratio 14 (6-26); Blood Urea Nitrogen 18 mg/dL (8-23); Calcium 8.8 mg/dL (8.6-10.3); Carbon Dioxide 30 mEq/L (23-29); Chloride 100 mEq/L (98-107); Glucose 105 mg/dL (70-105); Osmolality,Calculated 292 (280-300); Potassium 3.1 mEq/L (3.5-5.1); Sodium 140 mEq/L (136-145); eGFR For Non-African Americans 56 (> 60)
[2018-04-05] MEDS: Insulin LISPRO 300 UNITS/3 ML VIAL SQ SCH ×3 (07:37→17:27)
[2018-04-05] MEDS ORDERED: *HR* LORazepam 0.5 MG TABLET PO SCH (09:00)
[2018-04-05] MEDS: *HR* OxyCODONE Immed Rel 5 MG TABLET PO PRN (10:13)
[2018-04-05] MEDS: Metoprolol XL (24 HR) Succ 25 MG TAB.ER.24H PO SCH ×2 (10:13→12:11)
[2018-04-05] MEDS: *HR* Rivaroxaban 10 MG TABLET PO SCH (10:14)
[2018-04-05] MEDS: Finasteride 5 MG TABLET PO SCH (10:14)
[2018-04-05] MEDS: *HR* Amiodarone 200 MG TABLET PO SCH (10:14)
[2018-04-05] MEDS: Simethicone 80 MG TAB.CHEW PO SCH (10:14)
[2018-04-05] MEDS: tiZANidine 4 MG TABLET PO SCH ×2 (10:15→21:27)
[2018-04-05] MEDS: Furosemide 40 MG/4 ML VIAL IVP SCH ×2 (10:16→21:30)
[2018-04-05] MEDS: Aspirin 81 MG TAB.CHEW PO SCH (10:16)
[2018-04-05] MEDS: Fluticasone Propionate Nasal 50 MCG/SPRAY BOTTLE NS SCH (10:22)
[2018-04-05] MEDS: Budesonide/Formoterol 160/4.5 1 PUFF INH IH SCH ×2 (10:56→21:57)
[2018-04-05] MEDS: Tiotropium 18 MCG inhalation IH SCH (10:57)
--- NOTE | 2018-04-05 11:08 | Internal Med Progress Note ---
Hospitalist Progress Note - Encounter Date of Encounter: 04/05/18 Time of Encounter: 11:00 - Subjective Interval History: No acute events overnight - Exam Vitals: Temp Pulse Resp BP Pulse Ox 97.7 F 63 16 97/59 93 04/05/18 10:00 04/05/18 10:00 04/05/18 10:00 04/05/18 10:00 04/05/18 10:00 Exam: Gen - Awake, alert, oriented x 3, no acute distress HEENT - NCAT, PERRLA, EOMI, hearing grossly intact, oropharynx benign CV - RRR, normal S1 and S2, no M/R/G, no BLE edema Resp - Normal WOB, CTAB, no W/R/R GI - Soft, NT/ND, no masses, normal bowel sounds, Ext- Bilateral pedal edema Skin - Warm, dry, no rashes/lesions/ulcers Psych - Normal mood and affect, no depression or anxiety - Assessment and Plan (1) Acute on chronic diastolic (congestive) heart failure Current Visit: Yes Status: Acute Assessment and Plan: Pt came in with acute SOB and bilateral pedal edema likely 2/2 to acute worsening of chronic diastolic CHF On lasix 40mg IV BID and improving. Monitor ins and outs. Counseled regarding fluid restriction and 2gm sodium diet (2) Njeqe-pr-xezqpri kidney injury Current Visit: Yes Status: Acute Assessment and Plan: Likely 2/2 to passive congestion from CHF. Improving with diuresis (3) Diabetes Current Visit: Yes Status: Acute Assessment and Plan: On insulin. Monitor fingersticks (4) Hypokalemia Current Visit: Yes Status: Acute Assessment and Plan: Replaced. repeat BMP (5) Atrial fibrillation Current Visit: No Status: Chronic Assessment and Plan: On xarelto and amiodarone (6) COPD (chronic obstructive pulmonary disease) Current Visit: Yes Status: Acute Assessment and Plan: No acute exacerbation. Continue nebs (7) DVT prophylaxis Current Visit: No Status: Acute Assessment and Plan: Heparin - Time Spent with Patient Total time spent is greater than 50% in coordination of care (as documented) at patient's floor/unit and/or counseling patient: Internal Medicine: Result - Labs CBC & Chem 7: 04/03/18 23:20 04/05/18 04:00 Labs: BMP 04/05/18 04:00 Sodium 140 Potassium 3.1 L Chloride 100 Carbon Dioxide 30 H BUN 18 Creatinine 1.28 Glucose 105 Calcium 8.8 Consult Discharge Plan - Plan Referrals: Krish-Edda Banda DO [Primary Care Provider] - (2) Vxbrn-fe-gqisium kidney injury Qualifiers: Acute renal failure type: unspecified Chronic kidney disease stage: unspecified stage Qualified Code(s): N17.9 - Acute kidney failure, unspecified ; N18.9 - Chronic kidney disease, unspecified (5) Atrial fibrillation Qualifiers: Atrial fibrillation type: paroxysmal Qualified Code(s): I48.0 - Paroxysmal atrial fibrillation
[2018-04-05] MEDS: Potassium Chloride Elixir 20 MEQ/15 ML UDC PO SCH ×2 (11:40→15:17)
[2018-04-05] MEDS ORDERED: Sennosides/Docusate Sodium TABLET PO PRN (15:02)
[2018-04-05] MEDS ORDERED: Simethicone 80 MG TAB.CHEW PO PRN (15:04)
[2018-04-05] MEDS ORDERED: traZODone 50 MG TABLET PO SCH (21:00)
[2018-04-05] MEDS: Melatonin 3 MG TABLET PO SCH (21:25)
[2018-04-05] MEDS: traZODone 50 MG TABLET PO SCH (21:26)
[2018-04-05] MEDS: Gabapentin 400 MG CAPSULE PO SCH (21:28)
[2018-04-05] MEDS: *HR* LORazepam 0.5 MG TABLET PO SCH (21:30)
[2018-04-06 05:48] LABS: BUN/Creatinine Ratio 15 (6-26); Blood Urea Nitrogen 19 mg/dL (8-23); Calcium 8.9 mg/dL (8.6-10.3); Carbon Dioxide 32 mEq/L (23-29); Chloride 99 mEq/L (98-107); Glucose 118 mg/dL (70-105); Osmolality,Calculated 293 (280-300); Potassium 3.5 mEq/L (3.5-5.1); Sodium 140 mEq/L (136-145); eGFR For Non-African Americans 55 (> 60)
[2018-04-06] MEDS: Insulin LISPRO 300 UNITS/3 ML VIAL SQ SCH ×4 (07:27→16:30)
[2018-04-06] MEDS: Budesonide/Formoterol 160/4.5 1 PUFF INH IH SCH ×2 (08:18→21:41)
[2018-04-06] MEDS: Metoprolol XL (24 HR) Succ 25 MG TAB.ER.24H PO SCH (09:07)
[2018-04-06] MEDS: *HR* Amiodarone 200 MG TABLET PO SCH (09:12)
[2018-04-06] MEDS: *HR* Rivaroxaban 10 MG TABLET PO SCH (09:12)
[2018-04-06] MEDS: Aspirin 81 MG TAB.CHEW PO SCH (09:12)
[2018-04-06] MEDS: Finasteride 5 MG TABLET PO SCH (09:13)
[2018-04-06] MEDS: Furosemide 40 MG/4 ML VIAL IVP SCH ×2 (09:13→20:48)
[2018-04-06] MEDS: tiZANidine 4 MG TABLET PO SCH ×2 (09:13→20:47)
[2018-04-06] MEDS: Fluticasone Propionate Nasal 50 MCG/SPRAY BOTTLE NS SCH (09:13)
[2018-04-06] MEDS: Gabapentin 400 MG CAPSULE PO SCH ×2 (09:14→20:44)
--- NOTE | 2018-04-06 09:58 | Internal Med Progress Note ---
<Car Melo - Last Filed: 04/06/18 14:07> Hospitalist Progress Note - Encounter Date of Encounter: 04/06/18 Time of Encounter: 10:00 - Subjective Interval History: Patient continues to have SOB and BL lower extremity edema, but improved from presentation. He denies CP, palpitations, abdominal pain. Denies f/c/n/v. Tolerating PO intake and voiding without difficulty. No acute complaints. - Exam Vitals: Temp Pulse Resp BP Pulse Ox 98.0 F 96 18 92/60 93 04/06/18 08:06 04/06/18 08:06 04/06/18 08:06 04/06/18 08:06 04/06/18 08:06 Exam: Gen - Awake, alert, oriented x 3, no acute distress HEENT - NCAT, PERRLA, EOMI, hearing grossly intact, oropharynx benign CV - RRR, normal S1 and S2, no M/R/G, no BLE edema Resp - Normal WOB, CTAB, no W/R/R GI - Soft, NT/ND, no masses, normal bowel sounds, Ext- Bilateral pedal edema Skin - Warm, dry, no rashes/lesions/ulcers Psych - Normal mood and affect, no depression or anxiety - Assessment and Plan (1) Acute on chronic diastolic (congestive) heart failure Current Visit: Yes Status: Acute Assessment and Plan: Pt came in with acute SOB and bilateral pedal edema likely 2/2 to acute worsening of chronic diastolic CHF On lasix 40mg IV BID and improving. Monitor ins and outs. Counseled regarding fluid restriction and 2gm sodium diet. He is still symptomatic. Will continue diuresing today. Plan for d/c tomorrow. (2) Wuqrh-fa-afrnbeh kidney injury Current Visit: Yes Status: Acute Assessment and Plan: Likely 2/2 to passive congestion from CHF. Improving with diuresis (3) Diabetes Current Visit: Yes Status: Acute Assessment and Plan: On insulin. Monitor fingersticks (4) Hypokalemia Current Visit: Yes Status: Acute Assessment and Plan: resolved. (5) Atrial fibrillation Current Visit: No Status: Chronic Assessment and Plan: On xarelto and amiodarone (6) COPD (chronic obstructive pulmonary disease) Current Visit: Yes Status: Acute Assessment and Plan: No acute exacerbation. Continue nebs DVT Prophylaxis: Patient on Xarelto - Time Spent with Patient Total time spent is greater than 50% in coordination of care (as documented) at patient's floor/unit and/or counseling patient: Greater than 35 minutes Plan of Care Discussed with: patient Internal Medicine: Result - Labs CBC & Chem 7: 04/03/18 23:20 04/06/18 04:00 Labs: BMP 04/06/18 04:00 Sodium 140 Potassium 3.5 Chloride 99 Carbon Dioxide 32 H BUN 19 Creatinine 1.30 Glucose 118 H Calcium 8.9 Consult Discharge Plan - Plan Referrals: Edda Rm DO [Primary Care Provider] - <Karuna Medina - Last Filed: 04/06/18 17:16> Hospitalist Progress Note - Encounter Date of Encounter: 04/06/18 - Exam Vitals: Temp Pulse Resp BP Pulse Ox 98.0 F 62 20 100/65 93 04/06/18 14:00 04/06/18 14:00 04/06/18 14:00 04/06/18 14:00 04/06/18 14:00 - Assessment and Plan (1) Acute on chronic diastolic (congestive) heart failure Current Visit: Yes Status: Acute (2) DVT prophylaxis Current Visit: No Status: Acute (3) Atrial fibrillation Current Visit: No Status: Chronic (4) Hypokalemia Current Visit: Yes Status: Acute (5) Fxjim-sy-jnxsqzg kidney injury Current Visit: Yes Status: Acute (6) Diabetes Current Visit: Yes Status: Acute (7) COPD (chronic obstructive pulmonary disease) Current Visit: Yes Status: Acute - Time Spent with Patient Total time spent is greater than 50% in coordination of care (as documented) at patient's floor/unit and/or counseling patient: Internal Medicine: Result - Labs CBC & Chem 7: 04/03/18 23:20 04/06/18 04:00 - Attending Attestation I examined this patient and my medical decision-making was reviewed with the Resident Physician Dr. Melo. I agree with the documented findings, disposition and treatment plan as described except to the extent set forth below. Mr. Issa is a 68 y/o M with known diastolic CHF pt admitted here worsening b/ l LE pedal edema. He was admitted in the hospital and started him on aggressive diuresis. He still has 3+ pitting edema in both legs Gen: A, A, O x3 Chest: Diminished BS b/l, No crackles Ext: 3+ pitting edema a/p 1. Acute on chronic diastolic CHF exacerbation cont IV Lasix Will add metolazone Since he does need to stay in the hospital more than 2 mid night due to his complex medical problem will switch him to full admission today. <Karuna Medina - Last Filed: 04/06/18 17:16> (3) Atrial fibrillation Qualifiers: Atrial fibrillation type: paroxysmal Qualified Code(s): I48.0 - Paroxysmal atrial fibrillation (5) Qlywq-cw-kbmrfrx kidney injury Qualifiers: Acute renal failure type: unspecified Chronic kidney disease stage: unspecified stage Qualified Code(s): N17.9 - Acute kidney failure, unspecified ; N18.9 - Chronic kidney disease, unspecified
[2018-04-06] MEDS: Tiotropium 18 MCG inhalation IH SCH (11:13)
[2018-04-06] MEDS: *HR* LORazepam 0.5 MG TABLET PO SCH (20:43)
[2018-04-06] MEDS: Melatonin 3 MG TABLET PO SCH (20:45)
[2018-04-06] MEDS: traZODone 50 MG TABLET PO SCH (20:46)
[2018-04-07] MEDS: Insulin LISPRO 300 UNITS/3 ML VIAL SQ SCH ×5 (06:08→20:47)
[2018-04-07] MEDS: Tiotropium 18 MCG inhalation IH SCH (08:26)
[2018-04-07] MEDS: Budesonide/Formoterol 160/4.5 1 PUFF INH IH SCH ×2 (08:27→21:34)
[2018-04-07] MEDS: Metoprolol XL (24 HR) Succ 25 MG TAB.ER.24H PO SCH (09:02)
[2018-04-07] MEDS: Fluticasone Propionate Nasal 50 MCG/SPRAY BOTTLE NS SCH (09:14)
[2018-04-07] MEDS: *HR* OxyCODONE Immed Rel 5 MG TABLET PO PRN ×2 (09:14→17:22)
[2018-04-07] MEDS: Finasteride 5 MG TABLET PO SCH (09:15)
[2018-04-07] MEDS: *HR* Rivaroxaban 10 MG TABLET PO SCH (09:15)
[2018-04-07] MEDS: *HR* Amiodarone 200 MG TABLET PO SCH (09:15)
[2018-04-07] MEDS: Aspirin 81 MG TAB.CHEW PO SCH (09:15)
[2018-04-07] MEDS: tiZANidine 4 MG TABLET PO SCH ×2 (09:15→20:46)
[2018-04-07] MEDS: Gabapentin 400 MG CAPSULE PO SCH ×2 (09:15→20:45)
[2018-04-07] MEDS: Furosemide 40 MG/4 ML VIAL IVP SCH ×2 (09:16→20:46)
--- NOTE | 2018-04-07 13:02 | Internal Med Progress Note ---
Hospitalist Progress Note - Encounter Date of Encounter: 04/07/18 Time of Encounter: 09:45 - Subjective Interval History: Mr. Issa is a 68 year old male with known past medical history of arthritis, paroxysmal little fibrillation, diastolic CHF, COPD, CAD, CVA, diabetes ty. He has had this in the past, but never this bad. He was recently admitted to the hospital with edema and CHF on 03/14/18, discharged on 03/22/18. He says he was doing ok at home, but then the last few days things went down hill. He denies nausea, vomiting, diarrhea and constipation. No chest pain or shortness of breath. Pt admitted in the hospital and started him on Lasix 40m IV b.i.d. his leg edema slowly improving,. He denied any CP - Exam Vitals: Temp Pulse Resp BP Pulse Ox 98.0 F 67 17 116/72 95 04/07/18 11:26 04/07/18 11:26 04/07/18 11:26 04/07/18 11:26 04/07/18 11:26 Exam: Gen: Alert, awake, Oriented to time,place and person Chest: Diminished breath sounds B/L, No wheezing, No crackles, No rales Heart: S1S2+ RRR No murmurs Abd: Soft, NT, BS +, No organomegaly Ext: 2-3+ edema, pulses are palpable, No calf tenderness Neuro : Benign findings Skin: No rash. - Assessment and Plan (1) Acute on chronic diastolic (congestive) heart failure Current Visit: Yes Status: Acute Assessment and Plan: Had -ve 1560 fluid balance in last 24 hrs Cont Lasix 40 IV BID, also added Metolazone today (2) Atrial fibrillation Current Visit: No Status: Chronic (3) Hypokalemia Current Visit: Yes Status: Acute (4) Pannp-oq-gigftyx kidney injury Current Visit: Yes Status: Acute (5) Diabetes Current Visit: Yes Status: Acute (6) COPD (chronic obstructive pulmonary disease) Current Visit: Yes Status: Acute Assessment and Plan: No acute exacerbation. Continue nebs (7) Paroxysmal A-fib Current Visit: Yes Status: Acute Assessment and Plan: rate contorlled with BB and Amidoarone on Xarelto for anti coag (8) DVT prophylaxis Current Visit: No Status: Acute Assessment and Plan: On Xarelto - Time Spent with Patient Total time spent is greater than 50% in coordination of care (as documented) at patient's floor/unit and/or counseling patient: Internal Medicine: Result - Labs CBC & Chem 7: 04/03/18 23:20 04/06/18 04:00 Consult Discharge Plan - Plan Referrals: Edda Rm DO [Primary Care Provider] - (2) Atrial fibrillation Qualifiers: Atrial fibrillation type: paroxysmal Qualified Code(s): I48.0 - Paroxysmal atrial fibrillation (4) Prwwn-fi-nvtzuxc kidney injury Qualifiers: Acute renal failure type: unspecified Chronic kidney disease stage: unspecified stage Qualified Code(s): N17.9 - Acute kidney failure, unspecified ; N18.9 - Chronic kidney disease, unspecified (5) Diabetes Qualifiers: Diabetes mellitus type: type 2 Diabetes mellitus art coordinator insulin use: without art coordinator use (6) COPD (chronic obstructive pulmonary disease) Qualifiers: Emphysema type: unspecified Qualified Code(s): J43.9 - Emphysema, unspecified
[2018-04-07] MEDS: metOLazone 5 MG TABLET PO SCH (13:58)
[2018-04-07] MEDS: traZODone 50 MG TABLET PO SCH (20:44)
[2018-04-07] MEDS: *HR* LORazepam 0.5 MG TABLET PO SCH (20:44)
[2018-04-07] MEDS: Melatonin 3 MG TABLET PO SCH (20:45)
[2018-04-08 05:13] LABS: Magnesium 2.2 mg/dL (1.6-2.6); Potassium 3.4 mEq/L (3.5-5.1)
[2018-04-08] MEDS: Budesonide/Formoterol 160/4.5 1 PUFF INH IH SCH ×2 (08:17→20:26)
[2018-04-08] MEDS: Tiotropium 18 MCG inhalation IH SCH (08:18)
[2018-04-08] MEDS: Insulin LISPRO 300 UNITS/3 ML VIAL SQ SCH ×4 (08:30→20:26)
[2018-04-08] MEDS: Metoprolol XL (24 HR) Succ 25 MG TAB.ER.24H PO SCH (08:30)
[2018-04-08] MEDS: *HR* Amiodarone 200 MG TABLET PO SCH (08:40)
[2018-04-08] MEDS: Finasteride 5 MG TABLET PO SCH (08:40)
[2018-04-08] MEDS: tiZANidine 4 MG TABLET PO SCH ×2 (08:41→20:24)
[2018-04-08] MEDS: Furosemide 40 MG/4 ML VIAL IVP SCH (08:41)
[2018-04-08] MEDS: *HR* Rivaroxaban 10 MG TABLET PO SCH (08:41)
[2018-04-08] MEDS: Gabapentin 400 MG CAPSULE PO SCH ×2 (08:41→20:25)
[2018-04-08] MEDS: Aspirin 81 MG TAB.CHEW PO SCH (08:41)
[2018-04-08] MEDS: metOLazone 5 MG TABLET PO SCH (08:41)
[2018-04-08] MEDS: Fluticasone Propionate Nasal 50 MCG/SPRAY BOTTLE NS SCH (08:46)
[2018-04-08] MEDS ORDERED: metOLazone 5 MG TABLET PO SCH (15:41)
--- NOTE | 2018-04-08 15:43 | Internal Med Progress Note ---
Hospitalist Progress Note - Encounter Date of Encounter: 04/08/18 Time of Encounter: 13:00 - Subjective Interval History: Mr. Issa is a 68 year old male with known past medical history of arthritis, paroxysmal little fibrillation, diastolic CHF, COPD, CAD, CVA, diabetes ty. He has had this in the past, but never this bad. He was recently admitted to the hospital with edema and CHF on 03/14/18, discharged on 03/22/18. He says he was doing ok at home, but then the last few days things went down hill. He denies nausea, vomiting, diarrhea and constipation. No chest pain or shortness of breath. Pt admitted in the hospital and started him on Lasix 40m IV b.i.d. his leg edema slowly improving,. He denied any CP. No events over night - Exam Vitals: Temp Pulse Resp BP Pulse Ox 98 F 68 15 101/67 93 04/08/18 15:01 04/08/18 15:01 04/08/18 15:01 04/08/18 15:01 04/08/18 15:01 Exam: Gen: Alert, awake, Oriented to time,place and person Chest: Diminished breath sounds B/L, No wheezing, No crackles, No rales Heart: S1S2+ RRR No murmurs Abd: Soft, NT, BS +, No organomegaly Ext: 2-3+ edema, pulses are palpable, No calf tenderness Neuro : Benign findings Skin: No rash. - Assessment and Plan (1) Acute on chronic diastolic (congestive) heart failure Current Visit: Yes Status: Acute Assessment and Plan: Had -ve 2645 fluid balance in last 24 hrs Switched to PO Lasix today since his Cr trending up cut down on Metolazone dose 2.5 mg (2) Atrial fibrillation Current Visit: No Status: Chronic Assessment and Plan: On xarelto and amiodarone (3) Hypokalemia Current Visit: Yes Status: Acute Assessment and Plan: Replaced. repeat BMP (4) Mfcnd-rn-kqqzpso kidney injury Current Visit: Yes Status: Acute Assessment and Plan: Likely 2/2 to passive congestion from CHF. Improving with diuresis (5) Diabetes Current Visit: Yes Status: Acute Assessment and Plan: On insulin. Monitor finger sticks (6) COPD (chronic obstructive pulmonary disease) Current Visit: Yes Status: Acute Assessment and Plan: No acute exacerbation. Continue nebs (7) Paroxysmal A-fib Current Visit: Yes Status: Acute Assessment and Plan: rate contorlled with BB and Amidoarone on Xarelto for anti coag (8) DVT prophylaxis Current Visit: No Status: Acute Assessment and Plan: On Xarelto - Time Spent with Patient Total time spent is greater than 50% in coordination of care (as documented) at patient's floor/unit and/or counseling patient: Internal Medicine: Result - Labs CBC & Chem 7: 04/03/18 23:20 04/08/18 04:09 Labs: BMP 04/08/18 04:09 Sodium 138 Potassium 3.4 L Chloride 98 Carbon Dioxide 32 H BUN 22 Creatinine 1.51 H Glucose 106 H Calcium 9.0 Consult Discharge Plan - Plan Referrals: Edda Rm DO [Primary Care Provider] - (2) Atrial fibrillation Qualifiers: Atrial fibrillation type: paroxysmal Qualified Code(s): I48.0 - Paroxysmal atrial fibrillation (4) Hfewf-fw-wxkxvfl kidney injury Qualifiers: Acute renal failure type: unspecified Chronic kidney disease stage: unspecified stage Qualified Code(s): N17.9 - Acute kidney failure, unspecified ; N18.9 - Chronic kidney disease, unspecified (5) Diabetes Qualifiers: Diabetes mellitus type: type 2 Diabetes mellitus termite treater helper insulin use: without skilled nursing use (6) COPD (chronic obstructive pulmonary disease) Qualifiers: Emphysema type: unspecified Qualified Code(s): J43.9 - Emphysema, unspecified
[2018-04-08] MEDS: Furosemide 40 MG TABLET PO SCH (16:41)
[2018-04-08] MEDS: *HR* OxyCODONE Immed Rel 5 MG TABLET PO PRN (16:41)
[2018-04-08] MEDS: *HR* LORazepam 0.5 MG TABLET PO SCH (20:26)
[2018-04-08] MEDS: Melatonin 3 MG TABLET PO SCH (20:26)
[2018-04-08] MEDS: traZODone 50 MG TABLET PO SCH (20:27)
[2018-04-09 06:08] LABS: Calcium 9.5 mg/dL (8.6-10.3); Magnesium 2.3 mg/dL (1.6-2.6); Potassium 3.1 mEq/L (3.5-5.1)
[2018-04-09] MEDS: *HR* OxyCODONE Immed Rel 5 MG TABLET PO PRN (06:22)
[2018-04-09] MEDS: Tiotropium 18 MCG inhalation IH SCH (07:46)
[2018-04-09] MEDS: Budesonide/Formoterol 160/4.5 1 PUFF INH IH SCH (07:46)
[2018-04-09] MEDS: Insulin LISPRO 300 UNITS/3 ML VIAL SQ SCH ×2 (07:47→11:26)
[2018-04-09] MEDS: Metoprolol XL (24 HR) Succ 25 MG TAB.ER.24H PO SCH (08:20)
[2018-04-09] MEDS: *HR* Amiodarone 200 MG TABLET PO SCH (08:32)
[2018-04-09] MEDS: Aspirin 81 MG TAB.CHEW PO SCH (08:32)
[2018-04-09] MEDS: *HR* Rivaroxaban 10 MG TABLET PO SCH (08:33)
[2018-04-09] MEDS: tiZANidine 4 MG TABLET PO SCH (08:33)
[2018-04-09] MEDS: Gabapentin 400 MG CAPSULE PO SCH (08:33)
[2018-04-09] MEDS: Finasteride 5 MG TABLET PO SCH (08:33)
[2018-04-09] MEDS: Furosemide 40 MG TABLET PO SCH (08:33)
[2018-04-09] MEDS: Fluticasone Propionate Nasal 50 MCG/SPRAY BOTTLE NS SCH (08:34)
--- NOTE | 2018-04-09 12:19 | Discharge Summary ---
- NOTES TO OUTPATIENT PROVIDER Notes to Outpatient Provider: f/u with PCP in one week. Please check weights daily. If you gain more than 2 lbs, please take an extra dose of Lasix Date of Encounter: 04/09/18 Time of Encounter: 10:00 - Discharge Diagnosis (1) Acute on chronic diastolic (congestive) heart failure Priority: Primary Status: Acute (2) Atrial fibrillation Priority: Secondary Status: Chronic Qualifiers: Atrial fibrillation type: paroxysmal Qualified Code(s): I48.0 - Paroxysmal atrial fibrillation (3) Hypokalemia Priority: Secondary Status: Acute (4) Wkxcy-fm-mrcrprj kidney injury Priority: Secondary Status: Acute Qualifiers: Acute renal failure type: unspecified Chronic kidney disease stage: unspecified stage Qualified Code(s): N17.9 - Acute kidney failure, unspecified ; N18.9 - Chronic kidney disease, unspecified (5) Diabetes Priority: Secondary Status: Acute Qualifiers: Diabetes mellitus type: type 2 Diabetes mellitus prison insulin use: with intermediate card tender use Diabetes mellitus complication detail: with chronic kidney disease Chronic kidney disease stage: stage 2 (mild) Qualified Code(s): E11.22 - Type 2 diabetes mellitus with diabetic chronic kidney disease; N18.2 - Chronic kidney disease, stage 2 (mild); 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 Issa is a 68 year old male with known past medical history of arthritis, paroxysmal little fibrillation, diastolic CHF, COPD, CAD, CVA, diabetes ty. He has had this in the past, but never this bad. He was recently admitted to the hospital with edema and CHF on 03/14/18, discharged on 03/22/18. He says he was doing ok at home, but then the last few days things went down hill with worsening swelling in both legs. No chest pain or shortness of breath. Pt admitted in the hospital and started him on Lasix 40m IV b.i.d. his leg edema slowly improving. We also added Metolazone with Lasix. His leg swelling much better today. He was evaluated by PT / OT who recommend ECF placement, so will d/c him to ECF in stable condition today. - Time Spent with Patient Total time spent providing and/or coordinating discharge services: - Discharge Medications Prescriptions: LORazepam [Ativan] 0.5 mg PO HS PRN 10 Days #10 tablet PRN Reason: Insomnia Oxycodone HCl [Oxaydo] 10 mg PO Q8H PRN 5 Days #15 tablet.orl PRN Reason: Pain Home Medications: Albuterol Neb [Proventil Neb] 2.5 mg IH Q6H PRN 04/04/18 [History] Amiodarone [Cordarone] 200 mg PO DAILY 04/04/18 [History] Aspirin 81 mg PO DAILY 04/04/18 [History] Atorvastatin [Lipitor] 40 mg PO HS 04/04/18 [History] Cholecalciferol (Vitamin D3) [Vitamin D3] 2,000 unit PO DAILY 04/04/18 [History] DULoxetine [Cymbalta] 30 mg PO DAILY 04/04/18 [History] Finasteride [Proscar] 5 mg PO DAILY 04/04/18 [History] Fluticasone Propionate Nasal [Flonase] 2 spray NS DAILY 04/04/18 [History] Fluticasone/Salmeterol [Advair 250-50 Diskus] 1 each IH BID 04/04/18 [History] Gabapentin [Neurontin] 400 mg PO BID 04/04/18 [History] Insulin ASPART [NovoLOG] 2 - 12 unit SQ ACHS 04/04/18 [History] Lubiprostone [Amitiza] 16 mcg PO BID@0800,1700 04/04/18 [History] Melatonin [Melatin] 9 mg PO HS 04/04/18 [History] Memantine HCl 10 mg PO BID 04/04/18 [History] Metoprolol XL (24 HR) Succ [Toprol Xl] 12.5 mg PO HS 04/04/18 [History] Midodrine [ProAmatine] 5 mg PO BID 04/04/18 [History] Pantoprazole Sodium [Protonix] 40 mg PO DAILY 04/04/18 [History] Polyethylene Glycol 3350 [MiraLAX] 17 gm PO DAILY PRN 04/04/18 [History] Potassium Chloride [Klor-Con 10] 30 meq PO DAILY 04/04/18 [History] Rivaroxaban [Xarelto] 20 mg PO DAILY 04/04/18 [History] Sennosides/Docusate Sodium [Colace 2-in-1 Tablet] 1 each PO Q12H PRN 04/04/18 [ History] Simethicone [Bicarsim] 80 mg PO Q8H PRN 04/04/18 [History] Tamsulosin HCl [Flomax] 0.4 mg PO BID 04/04/18 [History] Tiotropium Br/Olodaterol HCl [Stiolto Respimat Inhal [place]] 2 puff IH BID [History] Tizanidine HCl [Zanaflex] 2 mg PO BID 04/04/18 [History] Trazodone HCl 200 mg PO HS 04/04/18 [History] DiphenhydraMINE [Benadryl] 25 mg PO Q6HR PRN capsule 04/09/18 [Rx] Furosemide [Lasix] 40 mg PO BID #0 04/09/18 [Rx] LORazepam [Ativan] 0.5 mg PO HS PRN 10 Days #10 tablet 04/09/18 [Rx] Oxycodone HCl [Oxaydo] 10 mg PO Q8H PRN 5 Days #15 tablet.orl 04/09/18 [Rx] metOLazone [Zaroxolyn] 2.5 mg PO DAILY tablet 04/09/18 [Rx] Allergies/Adverse Reactions: 3 Allergy/AdvReac Type Severity Reaction Status Date / Time IVP DYE Allergy Severe Anaphylaxis Uncoded 04/03/18 22:56 Date of admission: 04/06/18 10:33 Primary care physician: Edda Rm, DO - Constitutional Vitals: Temp Pulse Resp BP Pulse Ox 97.6 F 68 16 112/76 94 04/09/18 11:21 04/09/18 11:21 04/09/18 11:21 04/09/18 11:21 04/09/18 11:21 General appearance: Present: cooperative, A&O X 3, pleasant, answers questions appropriately Exam: Gen: Alert, awake, Oriented to time,place and person Chest: Diminished breath sounds B/L, No wheezing, No crackles, No rales Heart: S1S2+ RRR No murmurs Abd: Soft, NT, BS +, No organomegaly Ext: 2+ edema, pulses are palpable, No calf tenderness Neuro : Benign findings Skin: No rash. - Patient Status Disposition: Transfer SNF Condition: Good Overall status at discharge: patient is back to baseline - Discharge Instructions Follow Up With: Krish-Edda Banda DO [Primary Care Provider] - - Diet and Activity Activity: increase activity as tolerated, wear oxygen at all times Diet: low salt diet
--- NOTE | 2018-04-09 12:23 | Physician Discharge Referral ---
ExtendedCare Referral Info Transfer To: ECF Provider in Charge after Transfer: PCP Institutional Level of Care: Skilled - Diagnosis (1) Acute on chronic diastolic (congestive) heart failure Status: Acute (2) Atrial fibrillation Status: Chronic (3) Hypokalemia Status: Acute (4) Gygyc-ez-tyerwox kidney injury Status: Acute (5) Diabetes Status: Acute (6) COPD (chronic obstructive pulmonary disease) Status: Acute (7) Paroxysmal A-fib Status: Acute (8) DVT prophylaxis Status: Acute - Transfer Medications Prescriptions: LORazepam [Ativan] 0.5 mg PO HS PRN 10 Days #10 tablet PRN Reason: Insomnia Oxycodone HCl [Oxaydo] 10 mg PO Q8H PRN 5 Days #15 tablet.orl PRN Reason: Pain Home Medications: Albuterol Neb [Proventil Neb] 2.5 mg IH Q6H PRN 04/04/18 [History] Amiodarone [Cordarone] 200 mg PO DAILY 04/04/18 [History] Aspirin 81 mg PO DAILY 04/04/18 [History] Atorvastatin [Lipitor] 40 mg PO HS 04/04/18 [History] Cholecalciferol (Vitamin D3) [Vitamin D3] 2,000 unit PO DAILY 04/04/18 [History] DULoxetine [Cymbalta] 30 mg PO DAILY 04/04/18 [History] Finasteride [Proscar] 5 mg PO DAILY 04/04/18 [History] Fluticasone Propionate Nasal [Flonase] 2 spray NS DAILY 04/04/18 [History] Fluticasone/Salmeterol [Advair 250-50 Diskus] 1 each IH BID 04/04/18 [History] Gabapentin [Neurontin] 400 mg PO BID 04/04/18 [History] Insulin ASPART [NovoLOG] 2 - 12 unit SQ ACHS 04/04/18 [History] Lubiprostone [Amitiza] 16 mcg PO BID@0800,1700 04/04/18 [History] Melatonin [Melatin] 9 mg PO HS 04/04/18 [History] Memantine HCl 10 mg PO BID 04/04/18 [History] Metoprolol XL (24 HR) Succ [Toprol Xl] 12.5 mg PO HS 04/04/18 [History] Midodrine [ProAmatine] 5 mg PO BID 04/04/18 [History] Pantoprazole Sodium [Protonix] 40 mg PO DAILY 04/04/18 [History] Polyethylene Glycol 3350 [MiraLAX] 17 gm PO DAILY PRN 04/04/18 [History] Potassium Chloride [Klor-Con 10] 30 meq PO DAILY 04/04/18 [History] Rivaroxaban [Xarelto] 20 mg PO DAILY 04/04/18 [History] Sennosides/Docusate Sodium [Colace 2-in-1 Tablet] 1 each PO Q12H PRN 04/04/18 [ History] Simethicone [Bicarsim] 80 mg PO Q8H PRN 04/04/18 [History] Tamsulosin HCl [Flomax] 0.4 mg PO BID 04/04/18 [History] Tiotropium Br/Olodaterol HCl [Stiolto Respimat Inhal [place]] 2 puff IH BID [History] Tizanidine HCl [Zanaflex] 2 mg PO BID 04/04/18 [History] Trazodone HCl 200 mg PO HS 04/04/18 [History] DiphenhydraMINE [Benadryl] 25 mg PO Q6HR PRN capsule 04/09/18 [Rx] Furosemide [Lasix] 40 mg PO BID #0 04/09/18 [Rx] LORazepam [Ativan] 0.5 mg PO HS PRN 10 Days #10 tablet 04/09/18 [Rx] Oxycodone HCl [Oxaydo] 10 mg PO Q8H PRN 5 Days #15 tablet.orl 04/09/18 [Rx] metOLazone [Zaroxolyn] 2.5 mg PO DAILY tablet 04/09/18 [Rx] Allergies/Adverse Reactions: 3 Allergy/AdvReac Type Severity Reaction Status Date / Time IVP DYE Allergy Severe Anaphylaxis Uncoded 04/03/18 22:56 - Respiratory Orders Smoking Cessation: Smoking cessation has been advised. For more information, call the [facility] Quit Line at 6-726-PBYS-NOW. CERTIFICATION: I certify that the transfer of the above named patient to an Extended Care Facility is necessary for the continuing treatment of the diagnosis listed. The above information is true and accurate reflection of patient's current condition. Confidential - Redisclosure prohibited without a patient's written consent.
[2018-04-09 14:06] VITALS: BP 115/78
== END 2018-04-09 15:20 | DRG 291 ==
LOC: 3ANU 22:43 → EMEROOARM 22:43 → 3ANU 04-04 01:38 → SUATTDRO 04-06 10:33
PROVIDERS: ADMIT Family Medicine; ATTEND Family Medicine

== ENCOUNTER 2018-04-24 18:38 | Inpatient (IN) ==
[2018-04-24] MEDS ORDERED: Potassium Chloride 40 MEQ, Lidocaine 1% 2 ML in D5% in Water 500 ML IVPB ONE (19:03)
--- NOTE | 2018-04-24 19:20 | Emergency Department Note ---
Disposition Clinical Impression: Weakness, AG (acute kidney injury), Electrolyte abnormality Hypotension Qualifiers: Hypotension type: unspecified hypotension type Qualified Code(s): I95.9 - Hypotension, unspecified Disposition: Admitted As Inpatient Condition: Fair Time of Disposition: 22:51 General Adult HPI - General Chief complaint: ED Neuro Symptoms/Deficit Stated complaint: neuro symptoms Time Seen by Provider: 04/24/18 18:42 Source: patient, EMS Limitations: no limitations Nursing Notes Reviewed: Yes Vital Signs Reviewed: Yes - History of Present Illness HPI Narrative: 68 year old male with history of stroke presents from [facility] for hypotension and right sided weakness. Patient states that last night at 10pm, he got dizzy when he tried to get up. He also had bilateral eye pain, which is how he presented with his previous stroke. Patient states he feels weak all over and that he has "pain." Family states that this morning, he was wobbly and unsteady and had slurred speech. Family reports that he dragged his right side. Patient states that he has "some" chest pain and shortness of breath. Admits blurred vision. Workup was done at the [facility] urgent care. Patient was hypotensive at 79/53. Head CT was negative for stroke. Pertinent labs included elevated CPK at 1719, D-dimer elevated at 1800, elevated Cr at 2.9, hypocalcemia at 8.2, and hypokalemia at 3.3. Troponin was negative. CBC was normal. Glucose was normal. Family reports history of 3 strokes. History of CKD not on hemodialysis and follows with Dr. Wynn. Pain Scale: 0 - Related Data Home Medications Medication Instructions Recorded Confirmed Albuterol Neb [Proventil Neb] 2.5 mg IH Q6H PRN 04/04/18 04/04/18 Amiodarone [Cordarone] 200 mg PO DAILY 04/04/18 04/04/18 Aspirin 81 mg PO DAILY 04/04/18 04/04/18 Atorvastatin [Lipitor] 40 mg PO HS 04/04/18 04/04/18 Cholecalciferol (Vitamin D3) 2,000 unit PO DAILY 04/04/18 04/04/18 [Vitamin D3] DULoxetine [Cymbalta] 30 mg PO DAILY 04/04/18 04/04/18 Finasteride [Proscar] 5 mg PO DAILY 04/04/18 04/04/18 Fluticasone Propionate Nasal 2 spray NS DAILY 04/04/18 04/04/18 [Flonase] Fluticasone/Salmeterol [Advair 1 each IH BID 04/04/18 04/04/18 250-50 Diskus] Gabapentin [Neurontin] 400 mg PO BID 04/04/18 04/04/18 Insulin ASPART [NovoLOG] 2 - 12 unit SQ ACHS 04/04/18 04/04/18 Lubiprostone [Amitiza] 16 mcg PO BID@0800,1700 04/04/18 04/04/18 Melatonin [Melatin] 9 mg PO HS 04/04/18 04/04/18 Memantine HCl 10 mg PO BID 04/04/18 04/04/18 Metoprolol XL (24 HR) Succ [Toprol 12.5 mg PO HS 04/04/18 04/04/18 Xl] Midodrine [ProAmatine] 5 mg PO BID 04/04/18 04/04/18 Pantoprazole Sodium [Protonix] 40 mg PO DAILY 04/04/18 04/04/18 Polyethylene Glycol 3350 [MiraLAX] 17 gm PO DAILY PRN 04/04/18 04/04/18 Potassium Chloride [Klor-Con 10] 30 meq PO DAILY 04/04/18 04/04/18 Rivaroxaban [Xarelto] 20 mg PO DAILY 04/04/18 04/04/18 Sennosides/Docusate Sodium [Colace 1 each PO Q12H PRN 04/04/18 04/04/18 2-in-1 Tablet] Simethicone [Bicarsim] 80 mg PO Q8H PRN 04/04/18 04/04/18 Tamsulosin HCl [Flomax] 0.4 mg PO BID 04/04/18 04/04/18 Tiotropium Br/Olodaterol HCl 2 puff IH BID 04/04/18 04/04/18 [Stiolto Respimat Inhal [place]] Tizanidine HCl [Zanaflex] 2 mg PO BID 04/04/18 04/04/18 Trazodone HCl 200 mg PO HS 04/04/18 04/04/18 Previous Rx's Medication Instructions Recorded DiphenhydraMINE [Benadryl] 25 mg PO Q6HR PRN capsule 04/09/18 Furosemide [Lasix] 40 mg PO BID #0 04/09/18 LORazepam [Ativan] 0.5 mg PO HS PRN 10 Days #10 tablet 04/09/18 Oxycodone HCl [Oxaydo] 10 mg PO Q8H PRN 5 Days #15 04/09/18 tablet.orl metOLazone [Zaroxolyn] 2.5 mg PO DAILY tablet 04/09/18 Allergies Allergy/AdvReac Type Severity Reaction Status Date / Time IVP DYE Allergy Severe Anaphylaxis Uncoded 04/03/18 22:56 Constitutional: Denies: fever, chills Eyes: Reports: eye pain. Denies: eye discharge ENT ED: Denies: ear pain, throat pain Cardiovascular: Reports: chest pain. Denies: palpitations Respiratory: Denies: cough, dyspnea Gastrointestinal: Denies: abdominal pain, nausea Genitourinary: Denies: urgency, dysuria Musculoskeletal: Denies: back pain, neck pain Integumentary: Denies: rash, abrasion Neurological: Reports: weakness. Denies: headache Past Medical History - Past Medical History Medical history: Reports: arthritis, atrial fibrillation, CHF, COPD, coronary artery disease, CVA, diabetes, GERD, hyperlipidemia, hypertension, pulmonary embolus, renal disease Surgical history: Reports: cholecystectomy, herniorrhaphy, knee replacement, orthopedic, other, pacemaker/AICD Psychiatric history: Reports: anxiety, depression - Social History Smoking Status: Former smoker Smokeless Tobacco Status: No Alcohol use: Reports: none Drug use: Reports: none Physical Exam - General Limitations: no limitations General appearance: in no apparent distress, lethargic (appears tired and sleepy) - Head Head exam: atraumatic, normocephalic - Eye Eye exam: Present: PERRL, EOMI, other (conjunctiva erythematous bilaterally. No tearing or drainage. ). Absent: scleral icterus, periorbital swelling, periorbital tenderness - ENT ENT exam: normal oropharynx, mucous membranes moist - Neck Neck exam: Present: normal inspection - Chest Chest inspection: Present: normal inspection - Respiratory Respiratory exam: Present: normal lung sounds bilaterally. Absent: respiratory distress - Cardiovascular Cardiovascular exam: Present: regular rate, normal rhythm - Abdominal Exam Abdominal exam: Present: soft, tenderness (diffuse), normal bowel sounds. Absent: distention, guarding, rebound, rigidity - Extremities Exam Extremities exam: Present: normal inspection. Absent: tenderness, pedal edema, joint swelling - Neurological Exam Neurological exam: Present: alert, oriented X3, CN II-XII intact. Absent: motor sensory deficit - Skin Skin exam: Present: warm, dry, intact, normal color Course Course Narrative: 68 year old male with history of stroke presents with generalized weakness and bilateral eye pain. Patient states that last night at 10pm, he got dizzy with eye pain when he tried to get up. This morning, family states that he was wobbly and unsteady and had slurred speech and dragged his right side. Workup was done at the [facility]. Patient was hypotensive at 79/53. Head CT was negative for stroke. Pertinent labs include elevated CPK at 1719, D-dimer elevated at 1800, elevated Cr at 2.9, hypocalcemia at 8.2, and hypokalemia at 3.3. Troponin was negative. CBC was normal. Glucose was normal. Patient is alert and oriented but appears tired. Vitals are WNL. Blood pressure is 94/74. On exam, there is generalized weakness but no focal deficit. Eye exam reveals mild conjunctival erythema, no tearing or drainage. Speech is mumbled, not slurred. Will replete electrolytes for hypokalemia and hypocalcemia. Will get V/Q scan due to elevated D-dimer. Patient is allergic to IV dye. - Reevaluation(s) Reevaluation #1: Point of care bedside ocular ultrasound was done to assess bilateral eye pain. Traces of increased echogenicity that swirl with eye movement are observed in vitreous humor bilaterally. This is nonspecific and could possibly represent calcifications or hemorrhage. CXR shows no new findings. VQ scan is negative. Spoke with hospitalist who requests repeat all labs and give IVF. Will provide ASA. Dr. Cobian agrees to admit. Time: 22:49 Vital Signs Temperature 97.5 F L 04/24/18 18:44 Pulse Rate 63 04/24/18 18:44 Respiratory Rate 18 04/24/18 18:44 Blood Pressure 98/74 04/24/18 18:44 O2 Sat by Pulse Oximetry 100 04/24/18 18:44 Temperature 97.5 F L 04/24/18 18:44 Pulse Rate 63 04/24/18 18:44 Respiratory Rate 18 04/24/18 18:44 Blood Pressure 98/74 04/24/18 18:44 O2 Sat by Pulse Oximetry 100 04/24/18 18:44 Oxygen Delivery Oxygen Delivery Room Air Medical Decision Making - MDM Narrative Medical decision making narrative: Chest X-Ray 04/24/18 19:56 IMPRESSION: Slight interval improvement left lateral basilar airspace disease Interstitial prominence again noted bilaterally. No new area of consolidation D/ / Johnny Perez / Johnny Perez Interpreting Provider: Johnny Perez Pulmonary Perfusion Imaging 04/24/18 20:40 IMPRESSION: Low probability for pulmonary embolus. D/ / Iker Bowen MD / Iker Bowen MD Interpreting Provider: Iker Bowen MD - Medical Records Medical records reviewed: Yes I reviewed the patient's medical records. - Lab Data Lab results reviewed: Yes I reviewed the patient's lab results. Result diagrams: 04/24/18 22:50 - Radiology Data Radiology results reviewed: Yes I reviewed the patient's radiology results. Attestation Statement - Attestation Attestation: I, Dakota Arevalo, examined this patient and my medical decision-making was reviewed with the CARBONATION EQUIPMENT OPERATOR/PA/Advanced Practice Nurse/Resident Physician. I agree with the documented findings, disposition and treatment plan as described except to the extent set forth below. 68-year-old male presents emergency Department with concerns of possible CVA. He was initially seen at the [facility] who obtained laboratory evaluation and CT of the head. CT of the head did not show intracranial hemorrhage or fracture. Patient states he initially developed a headache last night with bilateral eye p ain. This persisted throughout the day and while he was walking out of the car today noticed weakness of the right lower extremity. He is seen at the [facility] who performed her evaluation and then sent him to the emergency department for further care and evaluation of possible CVA. He is outside the window for treatment with TPA. Ultrasound at bedside of bilateral eyes did not show evidence of retinal attachment. It did show possible vitreous posterior membrane detachment bilaterally. D-dimer was elevated at the [facility]. We obtained a VQ scan which showed low probability of PE. Patient will be admitted to the hospitalist for further care and evaluation.
[2018-04-24] MEDS ORDERED: Aspirin 325 MG TABLET PO ONE (22:21)
[2018-04-24] MEDS ORDERED: 0.9 % Sodium Chloride 1,000 ML IVC ONE (22:39)
[2018-04-24 22:59] LABS: Basophils # 0.1 K/mcL (0.0-0.2); Basophils % 0.5 %; Eosinophils # 0.5 K/mcL (0.0-0.6); Eosinophils % 4.6 %; Hematocrit 44.8 % (37.5-50.1); Hemoglobin 14.5 g/dL (12.9-16.9); Immature Granulocytes % 0.5 % (0-4); Lymphocytes # 1.1 K/mcL (0.6-4.6); Lymphocytes % 11.3 %; Mean Corpuscular HGB Conc 32.4 g/dL (31.6-35.5); Mean Corpuscular Hemoglobin 27.8 pg (28.0-33.3); Mean Corpuscular Volume 85.8 fL (83.0-100.0); Mean Platelet Volume 9.7 fL (9.4-12.4); Monocytes # 0.9 K/mcL (0.0-1.3); Monocytes % 8.4 %; Neutrophils # 7.5 K/mcL (1.6-8.9); Platelet Count 272 K/mcL (140-400); Red Blood Count 5.22 M/mcL (4.19-5.50); Red Cell Distribution Width 14.6 % (11.5-14.5); Segmented Neutrophils % 74.7 %
[2018-04-24 23:11] LABS: Prothrombin Time 22.8 Seconds (9.4-12.1)
[2018-04-24 23:13] LABS: Activated Partial Thrombo Time 40.2 Seconds (26.0-36.0)
[2018-04-24 23:20] LABS: BUN/Creatinine Ratio 16 (6-26); Blood Urea Nitrogen 37 mg/dL (8-23); Calcium 9.3 mg/dL (8.6-10.3); Carbon Dioxide 31 mEq/L (23-29); Chloride 96 mEq/L (98-107); Glucose 102 mg/dL (70-105); Osmolality,Calculated 291 (280-300); Potassium 3.2 mEq/L (3.5-5.1); Sodium 136 mEq/L (136-145); eGFR For Non-African Americans 28 (> 60)
[2018-04-24 23:21] LABS: Troponin I < 0.03 ng/mL (< 0.04)
--- NOTE | 2018-04-25 00:46 | Internal Med History&Physical ---
<Dariel Cobian A - Last Filed: 04/25/18 04:21> Internal Medicine - H&P: HPI History of present illness: Mr. Issa is a 68 year old male Internal Medicine - H&P: Meds Amiodarone [Cordarone] 200 mg PO DAILY 04/04/18 [History] Aspirin 81 mg PO DAILY 04/04/18 [History] Atorvastatin [Lipitor] 40 mg PO HS 04/04/18 [History] Cholecalciferol (Vitamin D3) [Vitamin D3] 2,000 unit PO DAILY 04/04/18 [History] DULoxetine [Cymbalta] 30 mg PO DAILY 04/04/18 [History] Finasteride [Proscar] 5 mg PO DAILY 04/04/18 [History] Gabapentin [Neurontin] 400 mg PO BID 04/04/18 [History] Lubiprostone [Amitiza] 16 mcg PO BID@0800,1700 04/04/18 [History] Melatonin [Melatin] 9 mg PO HS 04/04/18 [History] Memantine HCl 10 mg PO BID 04/04/18 [History] Metoprolol XL (24 HR) Succ [Toprol Xl] 12.5 mg PO HS 04/04/18 [History] Pantoprazole Sodium [Protonix] 40 mg PO DAILY 04/04/18 [History] Potassium Chloride [Klor-Con 10] 30 meq PO DAILY 04/04/18 [History] Rivaroxaban [Xarelto] 20 mg PO DAILY 04/04/18 [History] Sennosides/Docusate Sodium [Colace 2-in-1 Tablet] 1 each PO Q12H PRN 04/04/18 [History] Simethicone [Bicarsim] 80 mg PO Q8H PRN 04/04/18 [History] Tamsulosin HCl [Flomax] 0.4 mg PO BID 04/04/18 [History] Tizanidine HCl [Zanaflex] 2 mg PO BID 04/04/18 [History] Trazodone HCl 200 mg PO HS 04/04/18 [History] Furosemide [Lasix] 40 mg PO BID #0 04/09/18 [Rx] Losartan [Cozaar] 25 mg PO DAILY 04/24/18 [History] Spironolactone [Aldactone] 25 mg PO DAILY 04/24/18 [History] Tiotropium Br/Olodaterol HCl [Stiolto Respimat Inhal [place]] 4 gm IH 04/24/18 [History] Allergy/AdvReac Type Severity Reaction Status Date / Time IVP DYE Allergy Severe Anaphylaxis Uncoded 04/03/18 22:56 All Systems PM: A 10-system review of systems was performed and is negative for pertinent findings except as documented above in the HPI. - Constitutional Vitals: Temp Pulse Resp BP Pulse Ox 98.1 F 59 16 88/55 95 04/25/18 03:44 04/25/18 03:44 04/25/18 03:44 04/25/18 03:44 04/25/18 03:44 Internal Med - H&P Results - Labs CBC & Chem 7: 04/25/18 03:22 04/24/18 22:50 Labs: Short CBC 04/24/18 04/25/18 Range/Units 22:50 03:22 WBC 10.1 10.3 (4.3-11.1) K/mcL Hgb 14.5 13.0 D (12.9-16.9) g/dL Hct 44.8 41.1 (37.5-50.1) % Plt Count 272 268 (140-400) K/mcL Neutrophils # 7.5 7.7 (1.6-8.9) K/mcL BMP 04/24/18 22:50 Sodium 136 Potassium 3.2 L Chloride 96 L Carbon Dioxide 31 H BUN 37 H Creatinine 2.32 H Glucose 102 Calcium 9.3 Cardiac Enzymes 04/24/18 Range/Units 22:50 Troponin I < 0.03 (< 0.04) ng/mL - Impressions ITS Impressions Chest X-Ray 04/24/18 19:56 IMPRESSION: Slight interval improvement left lateral basilar airspace disease Interstitial prominence again noted bilaterally. No new area of consolidation D/ / Johnny Perez / Johnny Perez Interpreting Provider: Johnny Perez Pulmonary Perfusion Imaging 04/24/18 20:40 IMPRESSION: Low probability for pulmonary embolus. D/ / Iker Bowen MD / Iker Bowen MD Interpreting Provider: Iker Bowen MD - Time Spent With Patient Total time spent is greater than 50% in coordination of care (as documented) at patient's floor/unit and/or counseling patient: - Attending Attestation Patient seen and examined. Chart reviewed. Case discussed with resident. Agree with assessment and plan. Please see history of present illness above for further details. In short patient is a 68-year-old male with multiple comorbidities including atrial fibrillation on Xarelto, CHF and 3 previous episodes of stroke who presents with complaints of bilateral eye pain, slurred speech and reports of mild right-sided weakness concerning for recurrent stroke. Found to be hypotensive at home when assessed by director of nursing with a systolic blood pressure in the 70s, which was later re-confirmed at the [facility]. Initial imaging of the head was unremarkable. Laboratory workup was notable elevated creatinine, hypocalciemia, hypokalemia, elevated d-dimer and CPK. EKG and troponin were unremarkable. Point of care bedside ocular ultrasound was done to assess bilateral eye pain. Traces of increased echogenicity that swirl with eye movement are observed in vitreous humor bilaterally. This is nonspecific and could possibly represent calcifications or hemorrhage. Patient reports that he was previously had an appointment with neuro ophthalmology but was unable to follow-up with his appointment due to hospitalizations at the time. Consider ophthalmology consult versus outpatient follow-up VQ scan was performed to assess for possible PE given patient's hypotension and tachycardia which indicated low probability of PE. Patient received loading dose of aspirin and 1 L bolus of normal saline with improvement in blood pressure. Electrolytes were repleted. Patient seems to be back to his baseline. Questionable TIA versus transient neurological derangements in the setting of hypotension, hypocalcemia and azotemia. Patient on 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 currently. Denies any medication no ncompliance. Unable to obtain MRI due to pacemaker. We will continue with fluids for now. Hold antihypertensives in the setting of hypotension and acute on chronic kidney injury. Neurochecks every 2 hours. Replete electrolytes. Neurology consult in the morning. <Dano Mccarthy - Last Filed: 04/25/18 06:03> Date of Encounter: 04/25/18 Time of Encounter: 00:44 Internal Medicine - H&P: HPI Chief complaint: Weakness History of present illness: Dakota Issa is a 68-year-old male with a PMH of atrial fibrillation on Xarelto, CHF, COPD, CAD, CVA 3, DM, GERD, HLD, HTN, PE, and renal disease who presented to [facility] ED on 04/24/18 as a transfer from the [facility] with a chief complaint of right-sided weakness and hypotension. Patient reported that last night at approximately 10 PM, patient became dizzy when he tried to stand up. Patient reported bilateral eye pain, which is how he presented when he had his previous stroke. Patient states that his last stroke was 1 year ago, and that he has had a total of 3. He also reported feeling weak, and had an unsteady gait and slurred speech. Family reported that he was dragging his right side. Also reported shortness of breath and blurred vision. Initial workup was performed at the [facility] urgent care. Patient was hypotensive at 79/53. Initial head CT was negative for a stroke. Laboratory analysis demonstrated an elevated CPK at 1719, d-dimer elevated at 1800, elevated creatinine at 2.9, hypocalcemia at 8.2, and hyperkalemia 3.3. Troponin was negative. Vital signs on arrival were as follows: Temperature 97.5, pulse 63, respiratory rate 18, blood pressure 98/74, pulse ox 100. Labs were significant for low po tassium at 3.2. Creatinine was elevated at 2.32; this is elevated from patients baseline, which appears to be between 1.3 and 1.5. Patient does have a known history of CAD, and sees Dr. Wynn. Pulmonary perfusion imaging demonstrated low probability for pulmonary embolus. Patient was seen and examined at bedside; he reports that he still feels weak, and has a slight headache. Reports slightly blurred vision. He denies fever, chills, nausea, vomiting, diarrhea, chest pain, shortness of breath, palpitations, chest tightness, numbness, tingling, or paresthesias. Past Med Surg Social Fam HX - Past Medical History Medical history: arthritis, atrial fibrillation, CHF, COPD, coronary artery disease, CVA, diabetes, GERD, hyperlipidemia, hypertension, pulmonary embolus, renal disease Additional medical history: Pacemaker, emphysema Psychiatric history: anxiety, depression - Past Surgical History Surgical History: cholecystectomy, herniorrhaphy, knee replacement, orthopedic, other, pacemaker/AICD Additional surgical history: Right knee replacement. Cardiac Ablasion. left arm - Social History Smoking Status: Former smoker Smokeless Tobacco Status: No Alcohol use: none Drug use: none - Family History Father Adopted: No Family Member Ethnicity: Non- Living Status: Hx Family Cardiac Disorders: No Hx Family Respiratory Disorders: No Hx Family Cancer: Yes Hx Family GI Disorders: No Hx Family Endocrine Disorder: No Hx Family Neuromuscular Disorders: No Hx Family Neurologic Disorders: No Hx Family HEENT Disorders: No Hx Family Autoimmune Disorders: No Brother Family Member Ethnicity: Non- Living Status: Still Living Sister Family Member Ethnicity: Non- Living Status: Still Living Mother Adopted: No Family Member Ethnicity: Non- Twin of Family Member: Yes Living Status: Hx Family Cardiac Disorders: Yes Hx Family Respiratory Disorders: No Hx Family Cancer: No Hx Family GI Disorders: No Hx Family Endocrine Disorder: No Hx Family Neuromuscular Disorders: No Hx Family Neurologic Disorders: No Hx Family HEENT Disorders: No Hx Family Autoimmune Disorders: No All Systems PM: A 10-system review of systems was performed and is negative for pertinent findings except as documented above in the HPI. - Constitutional Constitutional: as per HPI, no chills, no fever(s), no night sweats - EENT Eyes: as per HPI, blurry vision, change in vision, pain, no discharge, no photophobia Ears: as per HPI, no ear discharge, no ear pain, no tinnitus Nose, mouth and throat: as per HPI, no dysphagia, no nasal discharge, no neck pain, no sore throat - Breasts Breasts: as per HPI - Cardiovascular Cardiovascular ROS IM: as per HPI, no chest pain, no claudication, no dyspnea, no dyspnea on exertion - Respiratory Respiratory: as per HPI, no cough, no dyspnea - Gastrointestinal Gastrointestinal: as per HPI, no abdominal pain - Genitourinary Genitourinary ROS male: as per HPI - Musculoskeletal Musculoskeletal ROS IM: as per HPI, muscle weakness, no back pain, no numbness, no tingling - Integumentary Integumentary IM: as per HPI - Neurological Neurological ROS: as per HPI, abnormal speech, disequilibrium, weakness, other visual disturbances, no numbness, no paresthesias - Constitutional Vitals: Temp Pulse Resp BP Pulse Ox 98.9 F 87 16 124/74 97 04/25/18 00:36 04/25/18 00:36 04/25/18 00:36 04/25/18 00:36 04/25/18 00:32 Exam: General: No acute distress Head: atraumatic, normocephalic Eye: Present: PERRL, EOMI, Conjunctiva erythematous b/l ENT: normal oropharynx, mucous membranes moist Neck: Supple, trachea midline Chest: Symmetric chest wall rise Respiratory: CTAB; no wheezes, rales, rhonchi CV: RRR, S1, S2, no murmurs, rubs, or gallops Abdomen: Soft, nontender Neurological exam: Present: alert, oriented X3, CN II-XII intact. Right-sided weakness. Skin exam: Present: Dry, intact Internal Med - H&P Results - Labs CBC & Chem 7: 04/25/18 03:22 04/25/18 03:22 Labs: Short CBC 04/24/18 Range/Units 22:50 WBC 10.1 (4.3-11.1) K/mcL Hgb 14.5 (12.9-16.9) g/dL Hct 44.8 (37.5-50.1) % Plt Count 272 (140-400) K/mcL Neutrophils # 7.5 (1.6-8.9) K/mcL BMP 04/24/18 22:50 Sodium 136 Potassium 3.2 L Chloride 96 L Carbon Dioxide 31 H BUN 37 H Creatinine 2.32 H Glucose 102 Calcium 9.3 Cardiac Enzymes 04/24/18 Range/Units 22:50 Troponin I < 0.03 (< 0.04) ng/mL - Impressions ITS Impressions Chest X-Ray 04/24/18 19:56 IMPRESSION: Slight interval improvement left lateral basilar airspace disease Interstitial prominence again noted bilaterally. No new area of consolidation D/ / Johnny Perez / Johnny Perez Interpreting Provider: Johnny Perez Pulmonary Perfusion Imaging 04/24/18 20:40 IMPRESSION: Low probability for pulmonary embolus. D/ / Iker Bowen MD / Iker Bowen MD Interpreting Provider: Iker Boewn MD - Assessment and plan (1) CVA (cerebral vascular accident) Current Visit: Yes Status: Acute Assessment and plan: Presented with weakness, slurred speech, and headache; similar to previous CVA presentation - History of 3 prior CVAs - Known history of A. fib; currently on Xarelto - Patient reports that he takes his medications daily - CT scan at the [facility] was unremarkable - Patient is outside the window of TPA treatment - Consult neurology - Trend troponins Qualifiers: Qualified Code(s): I63.9 - Cerebral infarction, unspecified (2) AG (acute kidney injury) Current Visit: Yes Status: Acute Assessment and plan: Laboratory analysis demonstrated an elevated creatinine at 2.32 - Based on chart review, baseline appears to be between 1.3 1.5 - Known history of chronic kidney disease not on dialysis; follows with Dr. Wynn - IV fluid hydration - Repeat a.m. labs (3) Eye pain Current Visit: Yes Status: Acute Assessment and plan: Bedside ocular ultrasound was performed in the ED - Traces of increased echogenicity observed in vitreous humor bilaterally - Possible vitreous posterior membrane detachment bilaterally - Consult opthamology Qualifiers: Qualified Code(s): H57.10 - Ocular pain, unspecified eye (4) Hypokalemia Current Visit: Yes Status: Acute Assessment and plan: - Patients potassium is 3.2; will replace (5) Hypocalcemia Current Visit: Yes Status: Acute Assessment and plan: Labs at the [facility] demonstrated a low calcium - Replacement was given; last calcium was 9.3 - Repeat am labs - Time Spent With Patient Total time spent is greater than 50% in coordination of care (as documented) at patient's floor/unit and/or counseling patient: 25 - 35 minutes
[2018-04-25] MEDS ORDERED: Naloxone 0.4 MG/ML INJ IVP PRN (00:56)
[2018-04-25] MEDS: 0.9 % Sodium Chloride 1,000 ML IVC SCH ×2 (01:43→23:41)
[2018-04-25 04:10] LABS: Basophils # 0.1 K/mcL (0.0-0.2); Basophils % 0.5 %; Eosinophils # 0.5 K/mcL (0.0-0.6); Eosinophils % 4.6 %; Hematocrit 41.1 % (37.5-50.1); Immature Granulocytes % 0.5 % (0-4); Lymphocytes # 1.2 K/mcL (0.6-4.6); Lymphocytes % 11.6 %; Mean Corpuscular HGB Conc 31.6 g/dL (31.6-35.5); Mean Corpuscular Hemoglobin 27.3 pg (28.0-33.3); Mean Corpuscular Volume 86.2 fL (83.0-100.0); Mean Platelet Volume 9.9 fL (9.4-12.4); Monocytes # 0.9 K/mcL (0.0-1.3); Monocytes % 8.5 %; Neutrophils # 7.7 K/mcL (1.6-8.9); Platelet Count 268 K/mcL (140-400); Red Blood Count 4.77 M/mcL (4.19-5.50); Red Cell Distribution Width 14.7 % (11.5-14.5); Segmented Neutrophils % 74.3 %
[2018-04-25 04:29] LABS: Calcium 8.5 mg/dL (8.6-10.3); Potassium 3.4 mEq/L (3.5-5.1)
[2018-04-25] MEDS ORDERED: Dextrose Gel 15 GM/37.5 ML TUBE PO PRN ×2 (04:33)
[2018-04-25] MEDS ORDERED: *HR* Dextrose 50 % in Water (Syg) 50 ML SYRINGE IVP PRN (04:33)
[2018-04-25] MEDS ORDERED: D5% in Water 1,000 ML IVC PRN (04:33)
[2018-04-25] MEDS: Finasteride 5 MG TABLET PO SCH (08:03)
[2018-04-25] MEDS: Aspirin 81 MG TAB.CHEW PO SCH (08:03)
[2018-04-25] MEDS: *HR* Rivaroxaban 10 MG TABLET PO SCH (08:03)
[2018-04-25] MEDS: *HR* Amiodarone 200 MG TABLET PO SCH (08:04)
[2018-04-25 08:10] LABS: Bilirubin,Urine Negative (Negative); Blood,Urine Negative (Negative); Clarity,Urine Clear (Clear); Color,Urine Yellow (Yellow); Glucose,Urine (UA) Normal (Normal); Ketones,Urine Negative (Negative); Leukocyte Esterase,Urine Negative (Negative); Nitrite,Urine Negative (Negative); Protein,Urine Negative (Neg-Trace); Specific Gravity,Urine 1.012 (1.010-1.025); Urobilinogen,Urine Normal (Normal)
[2018-04-25] MEDS: Insulin LISPRO 300 UNITS/3 ML VIAL SQ SCH ×4 (08:29→20:21)
--- NOTE | 2018-04-25 10:46 | Neurology - Consult Note ---
<Álvaro Pat - Last Filed: 04/25/18 10:40> Date of Encounter: 04/25/18 Time of Encounter: 10:40 Assessment and Plan (1) Weakness Current Visit: Yes Status: Chronic Patient's neurological exam is nonfocal/nonlateralizing Patient is output full effort into strength testing. Patient is concerned about right upper extremity and right lower extremity weakness however reviewing EMR he has had this chief complaint evaluated before by neurology and likely from his previous CVA. Patient cannot obtain MRI secondary to having pacemaker. CT head was negative. Patient had echocardiogram in January 2018 showing LVEF of 55%, moderate left ventricular diastolic dysfunction, mild aortic regurgitation. Unlikely patient has acute CVA pathology. His symptoms may be secondary to dehydration as patient was hypotensive and developed acute renal injury which has improved with fluid resuscitation. Continue aspirin, statin, xeralto. History of Present Illness Chief complaint: hypotension HPI: Mr. Issa is a 68 year old male presents with chief complaint of hypotension. Patient was a transfer from the [facility]. He was reporting that on the night of the he started experiencing pain behind both his eyes that was throbbing without radiation. He did not take anything to relieve his pain but went to sleep. The next morning [facility] nurse aide [facility] patient was found to be hypotensive with a blood pressure 70/53. He also complained of slurred speech, and reports has history of TIA 3 with residual right-sided weakness. Patient also reported feeling lightheaded while standing up and walking, as well as blurry vision. CT head was negative. There was concern by primary team the patient may have had a CVA and neurology consult was ordered. Patient has a hi story of atrial fibrillation and is anticoagulated xeralto. He was also found to have AK I, hypokalemia. Currently the pain behind his head is resolved. Past Med Surg Social Fam HX - Past Medical History Medical history: arthritis, atrial fibrillation, CHF, COPD, coronary artery disease, CVA, diabetes, GERD, hyperlipidemia, hypertension, pulmonary embolus, renal disease Additional medical history: Pacemaker, emphysema Psychiatric history: anxiety, depression - Past Surgical History Surgical History: cholecystectomy, herniorrhaphy, knee replacement, orthopedic, other, pacemaker/AICD Additional surgical history: Right knee replacement. Cardiac Ablasion. left arm - Social History Smoking Status: Former smoker Smokeless Tobacco Status: No Alcohol use: none Drug use: none - Family History Father Adopted: No Family Member Ethnicity: Non- Living Status: Hx Family Cardiac Disorders: No Hx Family Respiratory Disorders: No Hx Family Cancer: Yes Hx Family GI Disorders: No Hx Family Endocrine Disorder: No Hx Family Neuromuscular Disorders: No Hx Family Neurologic Disorders: No Hx Family HEENT Disorders: No Hx Family Autoimmune Disorders: No Brother Family Member Ethnicity: Non- Living Status: Still Living Sister Family Member Ethnicity: Non- Living Status: Still Living Mother Adopted: No Family Member Ethnicity: Non- Twin of Family Member: Yes Living Status: Hx Family Cardiac Disorders: Yes Hx Family Respiratory Disorders: No Hx Family Cancer: No Hx Family GI Disorders: No Hx Family Endocrine Disorder: No Hx Family Neuromuscular Disorders: No Hx Family Neurologic Disorders: No Hx Family HEENT Disorders: No Hx Family Autoimmune Disorders: No Medications and Allergies Amiodarone [Cordarone] 200 mg PO DAILY 04/04/18 [History] Aspirin 81 mg PO DAILY 04/04/18 [History] Atorvastatin [Lipitor] 40 mg PO HS 04/04/18 [History] Cholecalciferol (Vitamin D3) [Vitamin D3] 2,000 unit PO DAILY 04/04/18 [History] DULoxetine [Cymbalta] 30 mg PO DAILY 04/04/18 [History] Finasteride [Proscar] 5 mg PO DAILY 04/04/18 [History] Gabapentin [Neurontin] 400 mg PO BID 04/04/18 [History] Lubiprostone [Amitiza] 16 mcg PO BID@0800,1700 04/04/18 [History] Melatonin [Melatin] 9 mg PO HS 04/04/18 [History] Memantine HCl 10 mg PO BID 04/04/18 [History] Metoprolol XL (24 HR) Succ [Toprol Xl] 12.5 mg PO HS 04/04/18 [History] Pantoprazole Sodium [Protonix] 40 mg PO DAILY 04/04/18 [History] Rivaroxaban [Xarelto] 20 mg PO DAILY 04/04/18 [History] Sennosides/Docusate Sodium [Colace 2-in-1 Tablet] 1 each PO Q12H PRN 04/04/18 [History] Simethicone [Bicarsim] 80 mg PO Q8H PRN 04/04/18 [History] Tamsulosin HCl [Flomax] 0.4 mg PO BID 04/04/18 [History] Tizanidine HCl [Zanaflex] 2 mg PO BID 04/04/18 [History] Trazodone HCl 200 mg PO HS 04/04/18 [History] Furosemide [Lasix] 40 mg PO BID #0 04/09/18 [Rx] Losartan [Cozaar] 25 mg PO DAILY 04/24/18 [History] Spironolactone [Aldactone] 25 mg PO DAILY 04/24/18 [History] Tiotropium Br/Olodaterol HCl [Stiolto Respimat Inhal [place]] 2 puff IH DAILY 04/24/18 [History] Insulin ASPART [NovoLOG] 0 unit SQ TIDWM PRN 04/25/18 [History] Potassium Chloride [K-Tab ER] 20 meq PO TID 04/25/18 [History] Allergy/AdvReac Type Severity Reaction Status Date / Time IVP DYE Allergy Severe Anaphylaxis Uncoded 04/03/18 22:56 All Systems: The remainder of the systems were reviewed and are negative Review of Systems: Constitutional: Denies fever, chills HEENT: Reports headache, blurry vision, eye pain, denies trauma, eye discharge , ear pain, ear discharge neck pain, sore throat, rhinorrhea Heart: Denies chest pain palpitations, LE edema Lungs: Denies shortness of breath cough Abdomen: Denies abdominal pain nausea vomiting diarrhea MSK: Denies back pain, falls, joint pain Kidney: Denies dysuria, hematuria Skin: Denies rash, ulcers Neuro: Reports right-sided weakness, lightheadedness slurred speech Psych: denies axniety, depression Physical Examination - Vital Signs Vital Signs: Initial Vital Signs Temp Pulse Resp BP Pulse Ox 97.5 F L 63 18 98/74 100 04/24/18 18:44 04/24/18 18:44 04/24/18 18:44 04/24/18 18:44 04/24/18 18:44 - Exam Exam: General: pleasant, without distress HEENT: Head atraumatic, normocephalic, EOMI, PERRL, absent ear discharge or t rauma, Moist Mucous Membranes, uvula midline Neck: nontender to palpation, absent lymphadenopathy, Cardiovascualr: Regular rate and rhythm with no murmur, absent gallops or rubs, absent pedal edema, radial pulses 2 out of 4. Pacemaker Lungs: Clear to auscultation bilaterally, not in respiratory distress Abdomen: Soft nontender, nondistended positive bowel sounds, absent hepatomegaly Skin: warm and dry, absent rash, absent open wounds and nodules MSK: absent clubbing, cyanosis, joints without swelling Psych: good insight and judgment, anxious, depressed - Constitutional General appearance: comfortable, other (Patient does not put into exam when asked) - Neurologic Sensorimotor examination: intact Motor examination - right side: 10/05: deltoids, biceps, triceps, wrist flexion, wrist extension, cleaner and preparer, hip flexors, tibialis Anterior, quadriceps, toe extension (EHL), plantarflexion Motor examination - left side: 10/05: deltoids, biceps, triceps, wrist flexion, wrist extension, hip flexors, cleaner and preparer, quadriceps, tibialis Anterior, toe extension (EHL), plantarflexion Detailed sensory examination: light touch (Reports decreasing initiation on the right side upper and lower extremity) Reflex and gait examination: other (Gait not tested as patient is dependent on Walker/wheelchair for mobility) Reflexes: Biceps: 1+, Triceps: 1+, Brachioradialis: 1+, Patella: 1+, Achilles: 1+ Mental Status Examination: awake, alert, oriented to person, oriented to place, oriented to time, follows commands appropriately, answers questions appropriately, makes eye contact Cranial nerve examination: PERRL, EOMI, visual regan intact, sensory to face intact, mastication intact, no facial asymmetry is present, no dysarthria, hearing is intact symmetrically, soft palate elevates bilaterally upon phonation, flexes SCM and trapezius muscles symmetrically with full power, tongue protrudes midline, no atrophy or facial fasiculations present Cerebellar examination: no dysmetria Results - Laboratory Findings CBC and BMP: 04/25/18 03:22 04/25/18 03:22 Abnormal lab findings: Abnormal lab results MCH 27.3 pg (28.0-33.3) L 04/25/18 03:22 RDW 14.7 % (11.5-14.5) H 04/25/18 03:22 PT 22.8 Seconds (9.4-12.1) H 04/24/18 22:50 APTT 40.2 Seconds (26.0-36.0) H 04/24/18 22:50 Potassium 3.4 mEq/L (3.5-5.1) L 04/25/18 03:22 Carbon Dioxide 30 mEq/L (23-29) H 04/25/18 03:22 BUN 35 mg/dL (8-23) H 04/25/18 03:22 Creatinine 2.00 mg/dL (0.70-1.30) H 04/25/18 03:22 Est GFR ( Amer) 40 (> 60) L 04/25/18 03:22 Est GFR (Non-Af Amer) 33 (> 60) L 04/25/18 03:22 Glucose 115 mg/dL (70-105) H 04/25/18 03:22 Calcium 8.5 mg/dL (8.6-10.3) L 04/25/18 03:22 Consult Discharge Plan - Plan [facility] Care Provider[facility] - <Jean Marie Alvarez I - Last Filed: 04/25/18 12:24> Assessment and Plan (1) Weakness Current Visit: Yes Status: Chronic Pt was seen and examined, my medical decision was reviewed with the Resident Physician, I agree with the documented findings, disposition and treatment plas as described except to the extent set forth below. This patient who has history of multiple risk factors and multiple metabolic conditions admitted with this generalized weakness and with significantly low blood pressure suspect his symptoms are likely related to hypoperfusion. No lateralizing sign on his examination CT is been negative suggest to continue to treat his underlying etiology He is already on aspirin and statin and 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 Xarelto may continue as before. Other treatment is as per primary team suggest fluid and improved blood pressure to a wide any significant hypo-tension Jean Marie Alvarez MD History of Present Illness HPI: Mr. Issa is a 68 year old male All Systems: The remainder of the systems were reviewed and are negative Physical Examination - Vital Signs Vital Signs: Initial Vital Signs Temp Pulse Resp BP Pulse Ox 97.5 F L 63 18 98/74 100 04/24/18 18:44 04/24/18 18:44 04/24/18 18:44 04/24/18 18:44 04/24/18 18:44 Results - Laboratory Findings CBC and BMP: 04/25/18 03:22 04/25/18 03:22 Abnormal lab findings: Abnormal lab results MCH 27.3 pg (28.0-33.3) L 04/25/18 03:22 RDW 14.7 % (11.5-14.5) H 04/25/18 03:22 PT 22.8 Seconds (9.4-12.1) H 04/24/18 22:50 APTT 40.2 Seconds (26.0-36.0) H 04/24/18 22:50 Potassium 3.4 mEq/L (3.5-5.1) L 04/25/18 03:22 Carbon Dioxide 30 mEq/L (23-29) H 04/25/18 03:22 BUN 35 mg/dL (8-23) H 04/25/18 03:22 Creatinine 2.00 mg/dL (0.70-1.30) H 04/25/18 03:22 Est GFR ( Amer) 40 (> 60) L 04/25/18 03:22 Est GFR (Non-Af Amer) 33 (> 60) L 04/25/18 03:22 Glucose 115 mg/dL (70-105) H 04/25/18 03:22 Calcium 8.5 mg/dL (8.6-10.3) L 04/25/18 03:22
--- NOTE | 2018-04-25 11:25 | Event Note ---
Date of Encounter: 04/25/18 Time of Encounter: 11:22 Patient seen and examined at the bedside. Agree with at the admitting hospitalist's evaluation and assessment and plan. Briefly a 68-year-old male with a history of atrial fibrillation on the Route toe, CHF, COPD, prior history of CVA 3 who presented with weakness and increased CKs, elevated creatinine from baseline hence acute on chronic renal failure who also had evidence of weakness. The patient is already improving with fluids. His creatinine is getting better. I have consulted nephrology because of his hypokalemia. The patient tells me that on multiple occasions he had repeated IV infusions of potassium to keep her potassium up. Interestingly there is a mention of an ocular ultrasound that was done at some point before he came into the hospital with questionable vitreous posterior membrane detachment-the patient does not give me any visual symptoms at this point, his headache is completely gone and I am going to defer this to outpatient ophthalmology. At the time of his discharge we need to make an appointment with outpatient ophthalmology. Neuro consult has been ordered and workup is in progress. We have held a lot of his antihypertensive medications as well as his diuretics. I will start his low-dose beta brisa and add the rest of his medications up based on nephrology input. I think gentle hydration today would be okay but I would not continue this long-term because of the patient's history of CHF and fluid overload. I personally believe this is a case of over diuresis in the setting of potentially a viral illness which necessitated and caused his muscle breakdown and acute renal failure in the first place.
[2018-04-25] MEDS ORDERED: Perflutren Lipid Microsphere 1.3 ML in 0.9 % Sodium Chloride 8.7 ML IVP ONE (13:04)
--- NOTE | 2018-04-25 19:44 | Nephrology Consult Note ---
Date of Encounter: 04/25/18 Time of Encounter: 19:15 Assessment and Plan (1) AG (acute kidney injury) Status: Acute Mild, nonoliguric AG on CKD stage III who presented with generalized weakness associated with relative hypotension. DDx could be diminished intravascular volume despite his chronic peripheral edema He was preparing to eat [employer] fried chicken during my rounds this evening, and I counseled him for >50% of th 45 min encounter regarding proper diet. He was quite unhappy to hear that he was to not eat fried, sodium rich foods; this is consistent with his hx of dietary indiscretion with frequent readmissions (not just at [facility] but recent at [facility] said). Regarding hypokalemia, recommend ensure there is no hypomagnesemia and dosing KCl along with a K+ sparing diuretic. Further recommendations to follow based upon his renal function/UOP/electrolyte/weight trends. Thank you for consulting the [facility] group. (2) Hypokalemia Status: Acute See above (3) Hypotension Status: Acute See above Qualifiers: Hypotension type: unspecified hypotension type Qualified Code(s): I95.9 - Hypotension, unspecified (4) Weakness Status: Acute See above (5) CKD (chronic kidney disease) stage 3, GFR 30-59 ml/min Status: Chronic His baseline eGFR appears consistent with CKD stage III. (6) Central obesity Status: Chronic See above, re: counseling on lifestyle modifications. (7) Edema Status: Acute See above. Acute on chronic peripheral edema largely associated dietary indiscretion. Qualifiers: Edema type: localized Qualified Code(s): R60.0 - Localized edema History of Present Illness - Reason for Consult Consult date: 04/25/18 Requesting physician: Henrique Quijano - Chief Complaint Edema and elevated SCr - History of Present Illness Dakota Issa is a 68 y/o WM with a pmh of obesity, HTN, frequent hospitalizations associated with dietary indiscretion/edema and AKIs. While eating [employer] in his hospital room, he said that he feels best eating "what he chooses." He denied use of NSAIDs, or recent LHC or IV contrast. He said he has been hospitalized at numerous other hospitalis in admission to [facility] over the last few months. He did not affirm dysuria, passing renal stones recently. He said that over the last few days his swelling has actually not worsened, and he described his LE edema as "much better" than compared to about a month ago. Nephrology was consulted for elevated SCr, edema and assistance with diuretics. Past Med Surg Social Fam HX - Past Medical History Medical history: arthritis, atrial fibrillation, CHF, COPD, coronary artery disease, CVA, diabetes, GERD, hyperlipidemia, hypertension, pulmonary embolus, renal disease Additional medical history: Pacemaker, emphysema Psychiatric history: anxiety, depression - Past Surgical History Surgical History: cholecystectomy, herniorrhaphy, knee replacement, orthopedic, other, pacemaker/AICD Additional surgical history: Right knee replacement. Cardiac Ablasion. left arm - Social History Smoking Status: Former smoker Smokeless Tobacco Status: No Alcohol use: none Drug use: none - Family History Father Adopted: No Family Member Ethnicity: Non- Living Status: Hx Family Cardiac Disorders: No Hx Family Respiratory Disorders: No Hx Family Cancer: Yes Hx Family GI Disorders: No Hx Family Endocrine Disorder: No Hx Family Neuromuscular Disorders: No Hx Family Neurologic Disorders: No Hx Family HEENT Disorders: No Hx Family Autoimmune Disorders: No Brother Family Member Ethnicity: Non- Living Status: Still Living Sister Family Member Ethnicity: Non- Living Status: Still Living Mother Adopted: No Family Member Ethnicity: Non- Twin of Family Member: Yes Living Status: Hx Family Cardiac Disorders: Yes Hx Family Respiratory Disorders: No Hx Family Cancer: No Hx Family GI Disorders: No Hx Family Endocrine Disorder: No Hx Family Neuromuscular Disorders: No Hx Family Neurologic Disorders: No Hx Family HEENT Disorders: No Hx Family Autoimmune Disorders: No Medications and Allergies Amiodarone [Cordarone] 200 mg PO DAILY 04/04/18 [History] Aspirin 81 mg PO DAILY 04/04/18 [History] Atorvastatin [Lipitor] 40 mg PO HS 04/04/18 [History] Cholecalciferol (Vitamin D3) [Vitamin D3] 2,000 unit PO DAILY 04/04/18 [History] DULoxetine [Cymbalta] 30 mg PO DAILY 04/04/18 [History] Finasteride [Proscar] 5 mg PO DAILY 04/04/18 [History] Gabapentin [Neurontin] 400 mg PO BID 04/04/18 [History] Lubiprostone [Amitiza] 16 mcg PO BID@0800,1700 04/04/18 [History] Melatonin [Melatin] 9 mg PO HS 04/04/18 [History] Memantine HCl 10 mg PO BID 04/04/18 [History] Metoprolol XL (24 HR) Succ [Toprol Xl] 12.5 mg PO HS 04/04/18 [History] Pantoprazole Sodium [Protonix] 40 mg PO DAILY 04/04/18 [History] Rivaroxaban [Xarelto] 20 mg PO DAILY 04/04/18 [History] Sennosides/Docusate Sodium [Colace 2-in-1 Tablet] 1 each PO Q12H PRN 04/04/18 [History] Simethicone [Bicarsim] 80 mg PO Q8H PRN 04/04/18 [History] Tamsulosin HCl [Flomax] 0.4 mg PO BID 04/04/18 [History] Tizanidine HCl [Zanaflex] 2 mg PO BID 04/04/18 [History] Trazodone HCl 200 mg PO HS 04/04/18 [History] Losartan [Cozaar] 25 mg PO DAILY 04/24/18 [History] Spironolactone [Aldactone] 25 mg PO DAILY 04/24/18 [History] Tiotropium Br/Olodaterol HCl [Stiolto Respimat Inhal [place]] 2 puff IH DAILY 04/24/18 [History] Insulin ASPART [NovoLOG] 0 unit SQ TIDWM PRN 04/25/18 [History] Furosemide [Lasix] 40 mg PO DAILY #0 04/28/18 [Rx] Potassium Chloride [K-Tab ER] 20 meq PO BID #0 04/28/18 [Rx] Spironolactone [Aldactone] 25 mg PO BID #60 tablet 04/28/18 [Rx] Triamcinolone Acet 0.1% CRM [Kenalog] 1 appl TP BID tube 04/28/18 [Rx] Allergy/AdvReac Type Severity Reaction Status Date / Time IVP DYE Allergy Severe Anaphylaxis Uncoded 04/03/18 22:56 Review of Systems All Systems: reviewed and no additional remarkable complaints except as stated Exam - Vital Signs Vital signs: Initial Vital Signs Temp Pulse Resp BP Pulse Ox 97.5 F L 63 18 98/74 100 04/24/18 18:44 04/24/18 18:44 04/24/18 18:44 04/24/18 18:44 04/24/18 18:44 Vital Signs - Last 8 Hours Temp Pulse Resp BP Pulse Ox 04/25/18 19:02 98.2 F 66 16 102/67 96 04/25/18 15:42 98.7 F 69 16 95/60 94 Intake and Output 04/25/18 04/25/18 04/25/18 07:59 15:59 23:59 Intake Total 1232 / 1232 585 / 585 Balance 1232 / 1232 585 / 585 Intake: IV Fluids 1232 / 1232 0.9 % Sodium Chloride 1,000 ML 1010 / 1010 @ 100 mls/hr IVC .Q10H SHI Rx#: [id number] KCl 40 MEQ Xylocaine 2 ML In 222 / 222 Dextrose 5% 500 ML @ 130.5 mls/ hr IVPB ONCE ONE Rx#:[id number] Oral 0 / 0 480 / 480 Free Water 105 / 105 Other: Meal Breakfast Percent of Meal Consumed 100% Weight 129.9 kg Blood Glucose* 121 134 Patient Weight 04/25/18 23:59 Weight 129.9 kg - General Appearance General appearance: well-developed, well-nourished, obese, chronically ill, fatigue, frail EENT: ATNC, PERRL, mucous membranes moist Neck: supple Respiratory: course breath sounds Cardiology: edema (2+ pretibial pitting edema bilaterally), irregular rhythm, normal S1, normal S2 Gastrointestinal: no guarding, obese, distended Integumentary: warm and dry Neurologic: no focal deficit, no asterixis, alert and oriented x3 Musculoskeletal: no erythema, no clubbing Psychiatric: mood/affect appropriate (though also angry when questioned about his diet. ) Results - Lab Results 04/28/18 03:43 04/28/18 03:43 Most recent lab results Calcium 8.5 mg/dL (8.6-10.3) L 04/25/18 03:22 Magnesium 2.0 mg/dL (1.6-2.6) 04/25/18 03:22 I reviewed his labs, vitals, prior progress notes/imaging, med lists and also reviewed his historical weights from prior [facility] admissions. Consult Discharge Plan - Plan Referrals: Erica Witt MD [Partnered Physician] - [place],PCP [Primary Care Provider] - Prescriptions: Spironolactone [Aldactone] 25 mg PO BID #60 tablet
[2018-04-25] MEDS: Metoprolol XL (24 HR) Succ 25 MG TAB.ER.24H PO SCH (21:51)
[2018-04-25] MEDS: (Tiotropium Br/Olodaterol Hcl [Stiolto Respimat Inhal) IH SCH (21:52)
[2018-04-25] MEDS: Spironolactone 25 MG TABLET PO SCH (21:54)
[2018-04-26] MEDS ORDERED: traMADol 50 MG TABLET PO ONE (01:18)
[2018-04-26] MEDS: Artificial Tears SOLN 15 ML BOTTLE BOTH EYES SCH ×5 (03:07→21:46)
[2018-04-26 06:03] LABS: Albumin 3.6 g/dL (3.5-5.7); Calcium 8.9 mg/dL (8.6-10.3); Phosphorous 2.9 mg/dL (2.7-4.5); Potassium 3.3 mEq/L (3.5-5.1)
[2018-04-26] MEDS: Insulin LISPRO 300 UNITS/3 ML VIAL SQ SCH ×4 (07:49→21:40)
[2018-04-26] MEDS ORDERED: Furosemide 40 MG TABLET PO SCH (08:00)
[2018-04-26] MEDS: Aspirin 81 MG TAB.CHEW PO SCH (09:18)
[2018-04-26] MEDS: *HR* Amiodarone 200 MG TABLET PO SCH (09:18)
[2018-04-26] MEDS: Spironolactone 25 MG TABLET PO SCH ×2 (09:19→21:46)
[2018-04-26] MEDS: Finasteride 5 MG TABLET PO SCH (09:19)
[2018-04-26] MEDS: *HR* Rivaroxaban 10 MG TABLET PO SCH (09:19)
[2018-04-26] MEDS: (Tiotropium Br/Olodaterol Hcl [Stiolto Respimat Inhal) IH SCH (10:18)
--- NOTE | 2018-04-26 10:53 | Nephrology Progress Note ---
Addendum entered and electronically signed by Roberto Bray DO 04/30/18 14:41: I have personally performed a face to face evaluation on this patient. I have reviewed and agree with the care plan. History and Exam by me shows: AG on CKD and not worsening, but he remains complex in his E/M and MDM. I counseled him for >50% of the encounter to focus on improving his diet, weight, compliance and other lifestyle modifications. Thank you. Original Note: Date of Encounter: 04/26/18 Time of Encounter: 10:03 - Assessment and Plan (1) AG (acute kidney injury) Current Visit: Yes Status: Acute Mild, nonoliguric AG on CKD stage III who presented with generalized weakness associated with relative hypotension. DDx could be diminished intravascular volume despite his chronic peripheral edema. The patient continues to not adhere to 1.5 liter fluid restriction and a diet in high sodium both at house and in hospital. Family continues to bring patient fast food for meals. Will continue to monitor renal function. Continue to hold lasix. Continue to replace K. (2) CKD (chronic kidney disease) stage 3, GFR 30-59 ml/min Current Visit: No Status: Chronic His baseline eGFR appears consistent with CKD stage III. Continue to hold lasix. Continue to avoid nephrotoxins and renal dose. Strict I/O Uop 1715 yesterday. (3) Weakness Current Visit: Yes Status: Chronic See above (4) Central obesity Current Visit: No Status: Chronic See above, re: counseling on lifestyle modifications. (5) Hypotension Current Visit: Yes Status: Acute See above Qualifiers: Hypotension type: unspecified hypotension type Qualified Code(s): I95.9 - Hypotension, unspecified (6) Edema Current Visit: No Status: Acute See above. Acute on chronic peripheral edema largely associated dietary indiscretion. Qualifiers: Edema type: localized Qualified Code(s): R60.0 - Localized edema (7) Hypokalemia Current Visit: Yes Status: Acute See above Subjective Principal diagnosis: rule out CVA Interval history: Pt seen and examined, doing well. Denies CP, admits to SOB. Denies nausea/vomiting/diarrhea. Objective - Vital Signs Vital signs: Vital Signs Temp Pulse Resp BP Pulse Ox 04/26/18 06:25 98.2 F 63 14 107/68 93 04/26/18 04:05 97.9 F 64 16 92/58 93 04/25/18 23:27 98.0 F 72 16 103/67 94 04/25/18 21:51 105/64 04/25/18 19:02 98.2 F 66 16 102/67 96 04/25/18 15:42 98.7 F 69 16 95/60 94 04/25/18 11:27 98.3 F 63 16 99/65 94 Intake and Output 04/25/18 04/26/18 04/26/18 23:59 07:59 15:59 Intake Total 1390 / 1390 120 / 120 Output Total 1715 / 1715 475 / 475 Balance -325 / -325 -475 / -475 120 / 120 Intake: IV Fluids 990 / 990 Oral 400 / 400 120 / 120 Output: Urine 1715 / 1715 475 / 475 Other: Meal Breakfast Percent of Meal Consumed 80% Weight 127.9 kg Blood Glucose* 126 104 Patient Weight 04/26/18 23:59 Weight 127.9 kg - General Appearance General appearance: Present: well-developed, well-nourished, obese EENT: Present: ATNC, hearing intact, vision intact Neck: Present: supple Respiratory: Present: clear Cardiology: Present: edema (+2 pitting edema noted to bilat lower extremities.), normal S1, normal S2 Gastrointestinal: Present: normoactive bowel sounds, no tenderness, no guarding Integumentary: Present: no rash, warm and dry Neurologic: Present: alert and oriented x3 Psychiatric: Present: mood/affect appropriate, cooperative - Lab 04/25/18 03:22 04/26/18 05:27 Most recent lab results Calcium 8.9 mg/dL (8.6-10.3) 04/26/18 05:27 Phosphorus 2.9 mg/dL (2.7-4.5) 04/26/18 05:27 Magnesium 2.0 mg/dL (1.6-2.6) 04/25/18 03:22 - VTE Reasons for not Prescribing Prophylaxis: Not indicated-Anticoagulated or INR therapeutic Consult Discharge Plan - Plan [facility]errals: [facility] [Primary Care Provider] -
--- NOTE | 2018-04-26 13:38 | Internal Med Progress Note ---
Hospitalist Progress Note - Encounter Date of Encounter: 04/26/18 Time of Encounter: 11:30 - Subjective Interval History: Cheo Issa Is a 68-year-old Male Who Enters through the Emergency Room Yesterday for acute onset of weakness. He stated that he attempted to get out of his chair at home and he just felt so weak that he could not stay and he is positive history for CVA , hypertension, COPD, coronary artery disease, and chronic atelectasis of both lungs. He gives a history of hypotension for the past few days, onset , Monday of this week. States his home care nurse, was unable to get a manual b/p on him, and the "machine " read his blood pressure as 70/40. It was at that time he was taken to the [place] . States he was evaluated for the weakness, and low b/p. States it was better with systolic at 80. Reports he was discharged back home and continueed with generalized weakness until he presented at ED early this morning. Review of his initial b/p @ 6: 25 AM 107/68. His VS have remained stable since admission. Today he continues to feel "ruff", with generalized weakness, and body aches. He denies dyspnea, chest pain, continues with CC of swelling of lower legs. Denies blurred vision, headache, He was admitted from ED for generalized weakness, AG, hypokalemia, and hypocalcemia. Review of labs today : Potasium is improved 3.3 Calcium has normalized at 8.9 BUN 29 GFR 42, Cea !.65, and CK remains elevated at 259. He continues with 20 MEQ of postassium tid and has been consulted with nephrology, and neurology. since admission . - Exam Vitals: Temp Pulse Resp BP Pulse Ox 98.1 F 68 16 104/59 92 04/26/18 10:39 04/26/18 10:39 04/26/18 10:39 04/26/18 10:39 04/26/18 10:39 Exam: stable - Assessment and Plan (1) Weakness Current Visit: Yes Status: Acute Assessment and Plan: continues with cc of generalized weakness today. FROM of upper and lower extremities noted, strenght 2+ upper and lower ext. encouraged to sit up in chair, and walk in hallway with assistance. PT and OT pending (2) Acute kidney injury Current Visit: Yes Status: Acute Assessment and Plan: Consulted per Dr. Bray, with long discussion with patient regarding his diet. Recommends d/c of loop diuretics, and Potassium sparing diuretic. Will D/C Lasix and continue with Aladactone Stage 3 moderate renal status Comments: Stage 3 moderate (3) Hypokalemia Current Visit: Yes Status: Acute Assessment and Plan: potassium 3.3 improved , will continue with potassium 20 meq tid and monitor daily (4) Hypotension Current Visit: Yes Status: Acute Assessment and Plan: resolve blood pressure stable will continue to monitor (5) Type 2 diabetes mellitus Current Visit: Yes Status: Chronic Assessment and Plan: will continue with insulin therapy and to monitor Glucose 105 (6) Hypocalcemia Current Visit: Yes Status: Resolved Assessment and Plan: resolved with calcium 8.9 DVT Prophylaxis: will continue with Xarelto - Summary of Assessment and Plan Summary of Assessment and Plan: Mr. Fleming is a 68-year-old. Alert was admitted for generalized weakness, hypokalemia , hypocalcemia, hypotension. AG. ,Today he continues to feel "ruff", with generalized weakness, and body aches. He denies dyspnea, chest pain, continues with CC of swelling of lower legs. Denies blurred vision, headache, Reports is itching "all over" will order anti- itch cream. Review of labs today : Potasium is improved 3.3 Calcium has normalized at 8.9 BUN 29 GFR 42, Cea !.65, and CK remains elevated at 259. He continues with 20 MEQ of postassium tid and has been consulted with nephrology, and neurology. since admission . Will continue to monitor renal status. PT/OT evaluation is pending. Discontinued loop diuretic d/t AG - Time Spent with Patient Total time spent is greater than 50% in coordination of care (as documented) at patient's floor/unit and/or counseling patient: less than 15 minutes Plan of Care Discussed with: patient Internal Medicine: Result - Labs CBC & Chem 7: 04/25/18 03:22 04/26/18 05:27 Labs: BMP 04/26/18 05:27 Sodium 137 Potassium 3.3 L Chloride 100 Carbon Dioxide 30 H BUN 29 H Creatinine 1.65 H Glucose 105 Calcium 8.9 Liver Function 04/26/18 Range/Units 05:27 Albumin 3.6 (3.5-5.7) g/dL - ABG Interpretation ABG results: PT/INR, D-dimer PT 22.8 Seconds (9.4-12.1) H 04/24/18 22:50 - Impressions Impressions Echocardiogram 04/25/18 09:59 Impressions: LVEF 60-65%. Normal LV chamber size, wall thickness and function. RV not visualized well, grossly normal right ventricular structure and function. No significant valvular dysfunction. - VTE Reasons for not Prescribing Prophylaxis: Not indicated-Anticoagulated or INR therapeutic Consult Discharge Plan - Plan Referrals: [facility],PCP [Primary Care Provider] - (4) Hypotension Qualifiers: Hypotension type: unspecified hypotension type Qualified Code(s): I95.9 - Hypotension, unspecified (5) Type 2 diabetes mellitus Qualifiers: Diabetes mellitus fdc insulin use: without rehabilitation worker use Diabetes leandro bhakta complication status: with unspecified complications Qualified Code(s): E11.8 - Type 2 diabetes mellitus with unspecified complications
[2018-04-26] MEDS: Triamcinolone Acet 0.1% CRM 15 GM TUBE TP SCH ×2 (15:12→21:46)
[2018-04-26] MEDS ORDERED: *HR* Promethazine 25 MG/ML VIAL IVP PRN (20:51)
[2018-04-26] MEDS: Metoprolol XL (24 HR) Succ 25 MG TAB.ER.24H PO SCH (22:09)
[2018-04-27 05:00] LABS: Basophils # 0.1 K/mcL (0.0-0.2); Basophils % 0.7 %; Eosinophils # 0.4 K/mcL (0.0-0.6); Eosinophils % 4.4 %; Hematocrit 38.4 % (37.5-50.1); Hemoglobin 12.1 g/dL (12.9-16.9); Immature Granulocytes % 0.4 % (0-4); Lymphocytes # 1.4 K/mcL (0.6-4.6); Mean Corpuscular HGB Conc 31.5 g/dL (31.6-35.5); Mean Corpuscular Hemoglobin 27.2 pg (28.0-33.3); Mean Corpuscular Volume 86.3 fL (83.0-100.0); Mean Platelet Volume 9.5 fL (9.4-12.4); Monocytes # 0.9 K/mcL (0.0-1.3); Monocytes % 10.8 %; Neutrophils # 5.6 K/mcL (1.6-8.9); Platelet Count 278 K/mcL (140-400); Red Blood Count 4.45 M/mcL (4.19-5.50); Red Cell Distribution Width 14.6 % (11.5-14.5); Segmented Neutrophils % 66.7 %
[2018-04-27 05:18] LABS: BUN/Creatinine Ratio 20 (6-26); Blood Urea Nitrogen 25 mg/dL (8-23); Calcium 9.1 mg/dL (8.6-10.3); Carbon Dioxide 27 mEq/L (23-29); Chloride 104 mEq/L (98-107); Glucose 89 mg/dL (70-105); Osmolality,Calculated 290 (280-300); Potassium 3.8 mEq/L (3.5-5.1); Sodium 138 mEq/L (136-145); eGFR For Non-African Americans 57 (> 60)
--- NOTE | 2018-04-27 06:37 | Event Note ---
Date of Encounter: 04/27/18 Time of Encounter: 06:34 Nephrology Chart review and update In reviewing his labs, vitals, med lists and progress notes and imaging, I see improvement in his serum K+ (the hypokalemia has resolved) and his eGFR has substantially trended better. So I will sign-off at this point. Of note, he has known dietary indiscretion and has literally been admitted at various hospitalist nearly a dozen times this year, so he is likely to have a higher risk of readmission. At this time, however, his renal function and electrolytes have trended better, so I will sign-off. Please feel free to call or re-consult if any questions. Thank you.
[2018-04-27] MEDS: Insulin LISPRO 300 UNITS/3 ML VIAL SQ SCH ×4 (07:44→20:27)
[2018-04-27] MEDS: Finasteride 5 MG TABLET PO SCH (08:55)
[2018-04-27] MEDS: *HR* Rivaroxaban 10 MG TABLET PO SCH (08:55)
[2018-04-27] MEDS: Aspirin 81 MG TAB.CHEW PO SCH (08:55)
[2018-04-27] MEDS: Spironolactone 25 MG TABLET PO SCH ×2 (08:55→20:26)
[2018-04-27] MEDS: *HR* Amiodarone 200 MG TABLET PO SCH (08:55)
[2018-04-27] MEDS: Triamcinolone Acet 0.1% CRM 15 GM TUBE TP SCH ×2 (08:56→20:27)
[2018-04-27] MEDS: (Tiotropium Br/Olodaterol Hcl [Stiolto Respimat Inhal) IH SCH (08:57)
[2018-04-27] MEDS: Artificial Tears SOLN 15 ML BOTTLE BOTH EYES SCH ×4 (08:57→20:27)
[2018-04-27] MEDS: Metoprolol XL (24 HR) Succ 25 MG TAB.ER.24H PO SCH (20:27)
--- NOTE | 2018-04-27 20:40 | Internal Med Progress Note ---
Hospitalist Progress Note - Encounter Date of Encounter: 04/27/18 Time of Encounter: 11:00 - Subjective Interval History: Patient was seen and examined at bedside, patient states he does feel better was seen by nephrology has been participating in physical therapy and tolerating well. - Exam Vitals: Temp Pulse Resp BP Pulse Ox 98.2 F 69 15 110/70 94 04/27/18 18:40 04/27/18 18:40 04/27/18 18:40 04/27/18 18:40 04/27/18 18:40 Exam: Head exam: Present: atraumatic - Eye Eye exam: Present: EOMI, normal appearance, PERRL. Absent: scleral icterus Pupils: Present: normal accommodation - ENT ENT exam: Present: mucous membranes dry, normal exam, normal oropharynx - Neck Neck exam general surgery: Present: full ROM, supple. Absent: lymphadenopathy, tenderness, nuchal rigidity, thyromegaly - Respiratory Respiratory exam: Present: CTAB. Absent: chest wall tenderness, rales, rhonchi, wheezes - Cardiovascular Cardiovascular exam IM: Present: distant heart sounds, RRR, +S1, +S2. Absent: diastolic murmur, systolic murmur - GI/Abdominal GI/Abdominal exam IM: Present: distended, hypoactive bowel sounds, tenderness (moderate at surgical site; no erythema, fluctuance, or warmth; no drainage at surgical site), no peritoneal signs. Absent: hepatomegaly - Extremities Exam Extremities exam IM: Present: normal capillary refill, pedal edema (1+), warm, radial pulses palpable and symmetrical. Absent: calf tenderness, joint swelling, tenderness - Back Exam Back exam: Present: normal inspection. Absent: CVA tenderness (L), CVA tenderness (R) - Neurological Exam Neurological exam: Present: alert, CN II-XII intact, oriented X3. Absent: no focal deficits (decreased sensation in feet -- chronic/not new) - Psychiatric Psychiatric exam: Present: normal affect, normal mood - Skin Skin exam IM: Present: dry, warm. Absent: rash - Assessment and Plan (1) Weakness Current Visit: Yes Status: Acute Assessment and Plan: continues with cc of generalized weakness today. FROM of upper and lower extremities noted, strenght 2+ upper and lower ext. encouraged to sit up in chair, and walk in hallway with assistance. PT and OT pending 04/27 Patient has been participating with physical therapy and occupational therapy tolerating well-PT OT recommending home health Encouraged patient to ambulate up to chair (2) Acute kidney injury Current Visit: Yes Status: Acute Assessment and Plan: Consulted per Dr. Bray, with long discussion with patient regarding his diet. Recommends d/c of loop diuretics, and Potassium sparing diuretic. Will D/C Lasix and continue with Aladactone Stage 3 moderate renal status 04/27 Was seen by nephrology will follow up as an outpatient Continue with Aldactone and monitor closely Creatinine has improved monitor electrolytes Monitor intake And daily weights Comments: Stage 3 moderate (3) Hypokalemia Current Visit: Yes Status: Acute Assessment and Plan: potassium 3.3 improved , will continue with potassium 20 meq tid and monitor daily 04/27 Improved we will monitor and replace as needed (4) Hypotension Current Visit: Yes Status: Acute Assessment and Plan: resolve blood pressure stable will continue to monitor Improving we will continue to monitor (5) Type 2 diabetes mellitus Current Visit: Yes Status: Chronic Assessment and Plan: will continue with insulin therapy and to monitor Glucose 105 04/27 Monitor blood sugars Accu-Cheks before meals at bedtime continue with insulin. Patient provided with education concerning diabetic diet-history of noncompliance (6) Hypocalcemia Current Visit: Yes Status: Resolved Assessment and Plan: resolved with calcium 8.9 04/27 We will continue to monitor DVT Prophylaxis: will continue with Xarelto - Time Spent with Patient Total time spent is greater than 50% in coordination of care (as documented) at patient's floor/unit and/or counseling patient: Internal Medicine: Result - Labs CBC & Chem 7: 04/27/18 04:05 04/27/18 04:05 Labs: Short CBC 04/27/18 Range/Units 04:05 WBC 8.4 (4.3-11.1) K/mcL Hgb 12.1 L (12.9-16.9) g/dL Hct 38.4 (37.5-50.1) % Plt Count 278 (140-400) K/mcL Neutrophils # 5.6 (1.6-8.9) K/mcL BMP 04/27/18 04:05 Sodium 138 Potassium 3.8 Chloride 104 Carbon Dioxide 27 BUN 25 H Creatinine 1.26 Glucose 89 Calcium 9.1 - ABG Interpretation ABG results: PT/INR, D-dimer PT 22.8 Seconds (9.4-12.1) H 04/24/18 22:50 - VTE Reasons for not Prescribing Prophylaxis: Not indicated-Anticoagulated or INR therapeutic Consult Discharge Plan - Plan Referrals: [facility] [Primary Care Provider] - (4) Hypotension Qualifiers: Hypotension type: unspecified hypotension type Qualified Code(s): I95.9 - Hypotension, unspecified (5) Type 2 diabetes mellitus Qualifiers: Diabetes mellitus snf insulin use: without snf use Diabetes mellitus complication status: with unspecified complications Qualified Code(s): E11.8 - Type 2 diabetes mellitus with unspecified complications
[2018-04-28 04:13] LABS: Basophils # 0.1 K/mcL (0.0-0.2); Basophils % 0.5 %; Eosinophils # 0.4 K/mcL (0.0-0.6); Eosinophils % 3.9 %; Hematocrit 39.3 % (37.5-50.1); Hemoglobin 12.7 g/dL (12.9-16.9); Immature Granulocytes % 0.5 % (0-4); Lymphocytes # 1.4 K/mcL (0.6-4.6); Lymphocytes % 13.7 %; Mean Corpuscular HGB Conc 32.3 g/dL (31.6-35.5); Mean Corpuscular Volume 86.6 fL (83.0-100.0); Mean Platelet Volume 9.6 fL (9.4-12.4); Monocytes # 0.8 K/mcL (0.0-1.3); Monocytes % 8.3 %; Neutrophils # 7.4 K/mcL (1.6-8.9); Platelet Count 279 K/mcL (140-400); Red Blood Count 4.54 M/mcL (4.19-5.50); Red Cell Distribution Width 14.6 % (11.5-14.5); Segmented Neutrophils % 73.1 %
[2018-04-28 04:36] LABS: BUN/Creatinine Ratio 16 (6-26); Blood Urea Nitrogen 17 mg/dL (8-23); Calcium 9.2 mg/dL (8.6-10.3); Carbon Dioxide 26 mEq/L (23-29); Chloride 106 mEq/L (98-107); Glucose 85 mg/dL (70-105); Osmolality,Calculated 291 (280-300); Potassium 4.3 mEq/L (3.5-5.1); Sodium 140 mEq/L (136-145); eGFR For Non-African Americans > 60 (> 60)
[2018-04-28] MEDS: Insulin LISPRO 300 UNITS/3 ML VIAL SQ SCH (07:49)
--- NOTE | 2018-04-28 08:03 | Discharge Summary ---
- NOTES TO OUTPATIENT PROVIDER Notes to Outpatient Provider: Follow up with nephrology - lasix reduced per nephrology on Aldactone BID - education provider concerning Fluid restriction and low sodium diet- encouraged to monitor daily weight and to exercise. monitor chem 7 Orders not resulted at time of discharge: Pending orders 04/29/18 04:00 Basic Metabolic Panel AM 0400 04/30/18 04:00 Basic Metabolic Panel AM 0400 Date of Encounter: 04/28/18 Time of Encounter: 08:01 - Discharge Diagnosis (1) Weakness Priority: Primary Status: Acute (2) Acute kidney injury Priority: Primary Status: Acute (3) Hypokalemia Priority: Secondary Status: Acute (4) Hypotension Priority: Secondary Status: Acute Qualifiers: Hypotension type: unspecified hypotension type Qualified Code(s): I95.9 - Hypotension, unspecified (5) Type 2 diabetes mellitus Priority: Secondary Status: Chronic Qualifiers: Diabetes mellitus intermediate project manager insulin use: without prison use Diabetes mellitus complication status: with unspecified complications Qualified Code(s): E11.8 - Type 2 diabetes mellitus with unspecified complications (6) Hypocalcemia Priority: Secondary Status: Resolved Hospital course: Mr. Issa is a 68 year old male past medical hx of afib CHF COPD CAD CVA DM GERD HLD HTN pulmonary embolus pacemaker presented to [facility] ED on 04/24/18 transfer from the [place] but she complained of right-sided weakness and hypotension. Headache and vision changes He does have a past history of stroke he was hypotensive on presentation. Lab work did show elevated d-dimer elevated creatinine and elevated CPK hypocalcemia and hyperkalemia troponins were negative head CT was negative for stroke pulmonary perfusion imaging low probability for pulmonary embolism nephrology and neurology were consulted neurology felt that his weakness was not acute CVA and was most likely related to dehydration and hypotension. He was given some IV fluids which did improve his pressures Patient was seen by nephrology patient was placed on fluid restriction and educated on the importance of low sodium diet patient had been noncompliant during admission consuming high sodium foods patient's family was bringing in fast food. Lasix was held and patient was placed on Aldactone. His electrolytes did improve. Patient was more compliant with fluid restriction as well as diet and his swelling lower extremities did improve. Nephrology did advised to follow-up as outpatient and to continue with Aldactone 25 twice a day and decrease Lasix to 40 daily he will also have a Chem-7 later on in the week to monitor electrolytes. Continue potassium at 20 mg twice a day. He will also follow-up with nephrology as well as ophthalmology. His primary care provider patient verbalized understanding and hemodynamically stable at this time is ready for discharge Discharge discussed with: patient - Time Spent with Patient Total time spent providing and/or coordinating discharge services: - Discharge Medications Prescriptions: Spironolactone [Aldactone] 25 mg PO BID #60 tablet Home Medications: Amiodarone [Cordarone] 200 mg PO DAILY 04/04/18 [History] Aspirin 81 mg PO DAILY 04/04/18 [History] Atorvastatin [Lipitor] 40 mg PO HS 04/04/18 [History] Cholecalciferol (Vitamin D3) [Vitamin D3] 2,000 unit PO DAILY 04/04/18 [History] DULoxetine [Cymbalta] 30 mg PO DAILY 04/04/18 [History] Finasteride [Proscar] 5 mg PO DAILY 04/04/18 [History] Gabapentin [Neurontin] 400 mg PO BID 04/04/18 [History] Lubiprostone [Amitiza] 16 mcg PO BID@0800,1700 04/04/18 [History] Melatonin [Melatin] 9 mg PO HS 04/04/18 [History] Memantine HCl 10 mg PO BID 04/04/18 [History] Metoprolol XL (24 HR) Succ [Toprol Xl] 12.5 mg PO HS 04/04/18 [History] Pantoprazole Sodium [Protonix] 40 mg PO DAILY 04/04/18 [History] Rivaroxaban [Xarelto] 20 mg PO DAILY 04/04/18 [History] Sennosides/Docusate Sodium [Colace 2-in-1 Tablet] 1 each PO Q12H PRN 04/04/18 [History] Simethicone [Bicarsim] 80 mg PO Q8H PRN 04/04/18 [History] Tamsulosin HCl [Flomax] 0.4 mg PO BID 04/04/18 [History] Tizanidine HCl [Zanaflex] 2 mg PO BID 04/04/18 [History] Trazodone HCl 200 mg PO HS 04/04/18 [History] Losartan [Cozaar] 25 mg PO DAILY 04/24/18 [History] Spironolactone [Aldactone] 25 mg PO DAILY 04/24/18 [History] Tiotropium Br/Olodaterol HCl [Stiolto Respimat Inhal Dieterich] 2 puff IH DAILY 04/24/18 [History] Insulin ASPART [NovoLOG] 0 unit SQ TIDWM PRN 04/25/18 [History] Furosemide [Lasix] 40 mg PO DAILY #0 04/28/18 [Rx] Potassium Chloride [K-Tab ER] 20 meq PO BID #0 04/28/18 [Rx] Spironolactone [Aldactone] 25 mg PO BID #60 tablet 04/28/18 [Rx] Triamcinolone Acet 0.1% CRM [Kenalog] 1 appl TP BID tube 04/28/18 [Rx] Allergies/Adverse Reactions: Allergy/AdvReac Type Severity Reaction Status Date / Time IVP DYE Allergy Severe Anaphylaxis Uncoded 04/03/18 22:56 Date of admission: 04/25/18 09:57 [facility] care physician: [facility] Consults: 04/25/18 04:16 Consult to Neurology [CONS] Routine Consulting Provider: Neu[facility] Reason for Consult: CVA vs TIA Call Completed: No 04/25/18 07:35 Consult to Regional Director [CONS] Routine Reason for SW Consult: PATIENT FROM [facility] 04/25/18 15:01 Consult to Nephrology [CONS] Routine Consulting Provider: [facility] [employer]/OTTO/JESSICA/BENITO Reason for Consult: AG on CKD Call Completed: Yes 04/25/18 16:28 Consult to Occupational Therapy [CONS] Routine Comment: Evaluate, develop and implement POC Reason for Consult: WEAKNESS, DECONDITIONING Does patient have active BEDREST order?: No Is patient medically & hemodynamically stable?: Yes Consult to Physical Therapy [CONS] Routine Comment: Evaluate, develop and implement POC Reason for Consult: WEAKNESS, DECONDITIONING Does patient have active BEDREST order?: No Is patient medically & hemodynamically stable?: Yes Discharging clinician: Francy Mcdaniels Anticipated date of discharge: 04/28/18 - Constitutional Vitals: Temp Pulse Resp BP Pulse Ox 98.1 F 79 20 109/73 93 04/28/18 07:37 04/28/18 07:37 04/28/18 07:37 04/28/18 07:37 04/28/18 07:37 Exam: Head exam: Present: atraumatic - Eye Eye exam: Present: EOMI, normal appearance, PERRL. Absent: scleral icterus Pupils: Present: normal accommodation - ENT ENT exam: Present: mucous membranes dry, normal exam, normal oropharynx - Neck Neck exam general surgery: Present: full ROM, supple. Absent: lymphadenopathy, tenderness, nuchal rigidity, thyromegaly - Respiratory Respiratory exam: Present: CTAB. Absent: chest wall tenderness, rales, rhonchi, wheezes - Cardiovascular Cardiovascular exam IM: Present: distant heart sounds, RRR, +S1, +S2. Absent: diastolic murmur, systolic murmur - GI/Abdominal GI/Abdominal exam IM: Present: distended, hypoactive bowel sounds, tenderness (moderate at surgical site; no erythema, fluctuance, or warmth; no drainage at surgical site), no peritoneal signs. Absent: hepatomegaly - Extremities Exam Extremities exam IM: Present: normal capillary refill, pedal edema (1+), warm, radial pulses palpable and symmetrical. Absent: calf tenderness, joint swelling, tenderness - Back Exam Back exam: Present: normal inspection. Absent: CVA tenderness (L), CVA tenderness (R) - Neurological Exam Neurological exam: Present: alert, CN II-XII intact, oriented X3. Absent: no focal deficits (decreased sensation in feet -- chronic/not new) - Psychiatric Psychiatric exam: Present: normal affect, normal mood - Skin Skin exam IM: Present: dry, warm. Absent: rash - Patient Status Disposition: Home, Self-Care Condition: Fair Functional capacity at discharge: independent ambulation Overall status at discharge: patient is back to baseline - Ambulatory Orders Ambulatory Orders: Basic Metabolic Panel [CHEM] Time Frame: 05/02/18, Facility: [facility], Location: Lab - Discharge Instructions Follow Up With: [facility],PC[facility] [Primary Care Provider] - - Diet and Activity Activity: as per physical therapy Diet: low fat, low cholesterol, low salt diet - VTE Reasons for not Prescribing Prophylaxis: Not indicated-Anticoagulated or INR therapeutic
[2018-04-28] MEDS: Spironolactone 25 MG TABLET PO SCH (09:08)
[2018-04-28] MEDS: *HR* Amiodarone 200 MG TABLET PO SCH (09:08)
[2018-04-28] MEDS: Aspirin 81 MG TAB.CHEW PO SCH (09:08)
[2018-04-28] MEDS: *HR* Rivaroxaban 10 MG TABLET PO SCH (09:08)
[2018-04-28] MEDS: Finasteride 5 MG TABLET PO SCH (09:08)
[2018-04-28] MEDS: Triamcinolone Acet 0.1% CRM 15 GM TUBE TP SCH (09:11)
[2018-04-28] MEDS: Artificial Tears SOLN 15 ML BOTTLE BOTH EYES SCH (09:12)
[2018-04-28 09:48] VITALS: BP 116/72
[2018-04-28] MEDS ORDERED: Melatonin 3 MG TABLET PO ONE (22:02)
== END 2018-04-28 11:46 | disposition home or self-care (01) | DRG 683 ==
LOC: 3BNU 18:38 → EMEROOARM 18:38 → SUATTDRO 22:55 → 3BNU 04-25 00:23
PROVIDERS: ADMIT Internal Medicine; ATTEND Internal Medicine

== ENCOUNTER 2018-05-02 12:05 | Inpatient (IN) ==
[2018-05-02 13:33] LABS: Calcium 8.9 mg/dL (8.6-10.3); Potassium 4.5 mEq/L (3.5-5.1)
[2018-05-02 13:39] LABS: Bilirubin,Urine Negative (Negative); Blood,Urine Negative (Negative); Clarity,Urine Clear (Clear); Color,Urine Yellow (Yellow); Glucose,Urine (UA) Normal (Normal); Ketones,Urine Negative (Negative); Leukocyte Esterase,Urine Negative (Negative); Nitrite,Urine Negative (Negative); Protein,Urine Negative (Neg-Trace); Specific Gravity,Urine 1.009 (1.010-1.025); Urobilinogen,Urine Normal (Normal)
[2018-05-02 14:01] LABS: Basophils % 0.5 %; Eosinophils # 0.4 K/mcL (0.0-0.6); Eosinophils % 4.4 %; Hematocrit 46.6 % (37.5-50.1); Immature Granulocytes % 0.2 % (0-4); Lymphocytes % 11.8 %; Mean Corpuscular HGB Conc 31.1 g/dL (31.6-35.5); Mean Corpuscular Hemoglobin 27.6 pg (28.0-33.3); Mean Corpuscular Volume 88.6 fL (83.0-100.0); Mean Platelet Volume 9.8 fL (9.4-12.4); Monocytes # 0.8 K/mcL (0.0-1.3); Monocytes % 8.9 %; Neutrophils # 6.3 K/mcL (1.6-8.9); Platelet Count 312 K/mcL (140-400); Red Blood Count 5.26 M/mcL (4.19-5.50); Red Cell Distribution Width 15.1 % (11.5-14.5); Segmented Neutrophils % 74.2 %
[2018-05-02 14:07] LABS: Hemoglobin 14.5 g/dL (12.9-16.9)
[2018-05-02] MEDS ORDERED: 0.9 % Sodium Chloride 500 ML IVC ONE (14:32)
--- NOTE | 2018-05-02 15:18 | Emergency Department Note ---
Disposition Clinical Impression: AG (acute kidney injury) Fall Qualifiers: Encounter type: initial encounter Qualified Code(s): W19.XXXA - Unspecified fall, initial encounter Disposition: Admitted As Inpatient General Adult HPI - General Chief complaint: ED Fall Stated complaint: Fall Time Seen by Provider: 05/02/18 12:09 Source: EMS Mode of arrival: ambulatory Limitations: physical limitation Nursing Notes Reviewed: Yes Vital Signs Reviewed: Yes - History of Present Illness HPI Narrative: Patient presents to this emergency Department after a fall. Patient was sitting on the toilet and went to get up, he became very lightheaded, he fell, hit his head on the floor. Patient currently on Xarelto. For the patient's had a lot of recent admissions. states that she is worried about the patient's kidney function. Reports that he was in the hospital recently for an acute kidney injury stick. States that he was taken off Lasix at that time. Patient reports mild chest pain, shortness of breath. He denies any fevers, chills, abdominal pain, nausea, vomiting. Pain Scale: 0 - Related Data Home Medications Medication Instructions Recorded Confirmed Amiodarone [Cordarone] 200 mg PO DAILY 04/04/18 05/02/18 Aspirin 81 mg PO DAILY 04/04/18 05/02/18 Atorvastatin [Lipitor] 40 mg PO HS 04/04/18 05/02/18 Cholecalciferol (Vitamin D3) 2,000 unit PO DAILY 04/04/18 05/02/18 [Vitamin D3] DULoxetine [Cymbalta] 30 mg PO DAILY 04/04/18 05/02/18 Finasteride [Proscar] 5 mg PO DAILY 04/04/18 05/02/18 Gabapentin [Neurontin] 400 mg PO BID 04/04/18 05/02/18 Lubiprostone [Amitiza] 16 mcg PO BID@0800,1700 04/04/18 05/02/18 Melatonin [Melatin] 9 mg PO HS 04/04/18 05/02/18 Memantine HCl 10 mg PO BID 04/04/18 05/02/18 Metoprolol XL (24 HR) Succ [Toprol 12.5 mg PO HS 04/04/18 05/02/18 Xl] Pantoprazole Sodium [Protonix] 40 mg PO DAILY 04/04/18 05/02/18 Rivaroxaban [Xarelto] 20 mg PO DAILY 04/04/18 05/02/18 Sennosides/Docusate Sodium [Colace 1 each PO Q12H PRN 04/04/18 05/02/18 2-in-1 Tablet] Simethicone [Bicarsim] 80 mg PO Q8H PRN 04/04/18 05/02/18 Tamsulosin HCl [Flomax] 0.4 mg PO BID 04/04/18 05/02/18 Tizanidine HCl [Zanaflex] 2 mg PO BID 04/04/18 05/02/18 Trazodone HCl 200 mg PO HS 04/04/18 05/02/18 Losartan [Cozaar] 25 mg PO DAILY 04/24/18 05/02/18 Tiotropium Br/Olodaterol HCl 2 puff IH DAILY 04/24/18 05/02/18 [Stiolto Respimat Inhal [place]] Insulin ASPART [NovoLOG] 0 unit SQ TIDWM PRN 04/25/18 05/02/18 Previous Rx's Medication Instructions Recorded Furosemide [Lasix] 40 mg PO DAILY #0 04/28/18 Potassium Chloride [K-Tab ER] 20 meq PO BID #0 04/28/18 Spironolactone [Aldactone] 25 mg PO BID #60 tablet 04/28/18 Allergies Allergy/AdvReac Type Severity Reaction Status Date / Time IVP DYE Allergy Severe Anaphylaxis Uncoded 04/03/18 22:56 All systems ED: reviewed and negative except as stated. Review of Systems: As Per HPI Constitutional: Denies: fever Cardiovascular: Reports: chest pain Respiratory: Reports: dyspnea. Denies: cough Gastrointestinal: Denies: abdominal pain, nausea, vomiting Genitourinary: Denies: urgency Musculoskeletal: Denies: back pain Past Medical History - Past Medical History Medical history: Reports: arthritis, atrial fibrillation, CHF, COPD, coronary a rtery disease, CVA, diabetes, GERD, hyperlipidemia, hypertension, pulmonary embolus, renal disease Surgical history: Reports: cholecystectomy, herniorrhaphy, knee replacement, orthopedic, other, pacemaker/AICD Psychiatric history: Reports: anxiety, bipolar, depression, panic disorder - Social History Smoking Status: Former smoker Smokeless Tobacco Status: No Alcohol use: Reports: none Drug use: Reports: none Physical Exam - General Limitations: physical limitation General appearance: alert, in no apparent distress - Head Head exam: normocephalic - Eye Eye exam: Present: EOMI - ENT ENT exam: mucous membranes moist - Neck Neck exam: Present: trachea midline - Chest Chest inspection: Present: symmetric chest wall rise - Respiratory Respiratory exam: Absent: respiratory distress - Cardiovascular Cardiovascular exam: Present: regular rate - Abdominal Exam Abdominal exam: Present: soft, Non-Tender. Absent: distention, guarding, rebound, rigidity - Extremities Exam Extremities exam: Present: normal capillary refill - Neurological Exam Neurological exam: Present: alert, other (GCS 15) - Psychiatric Psychiatric exam: Present: normal affect, normal mood - Skin Skin exam: Present: warm, dry, intact Course Vital Signs Temperature 97.8 F 05/02/18 12:06 Pulse Rate 70 05/02/18 12:06 Respiratory Rate 18 05/02/18 12:06 Blood Pressure 101/63 05/02/18 12:06 O2 Sat by Pulse Oximetry 98 05/02/18 12:06 Temperature 98.0 F 05/02/18 19:03 Pulse Rate 64 05/02/18 19:03 Respiratory Rate 15 05/02/18 19:03 Blood Pressure 102/71 05/02/18 19:03 O2 Sat by Pulse Oximetry 95 05/02/18 19:03 Oxygen Delivery Oxygen Delivery Room Air Medical Decision Making - [facility] Narrative Medical decision making narrative: 68-year-old male presents to the emergency department with concern for hitting his head while on blood thinning medication. Obtain CT scan of the head and neck. Did not reveal any intracranial or any cervical abnormality. EKG did not reveal any ischemic changes or evidence of deadly causes of syncope such as QT prolongation, Brugada syndrome, hypertrophic cardiomyopathy, arithmogenic right ventricular cardiomyopathy, or Bpcar-Wwwbryhsy-Ckqhn syndrome as patient reported that he did not know whether he lost consciousness or not. Chest x-ray did not reveal any acute cardiopulmonary abnormality per radiology. Hemoglobin was stable. Creatinine is 2.01. This is elevated from a previous one obtained on his recent admission. Patient admitted to the hospitalist. Was given a soft 500 mL bolus of normal saline. Patient hemodynamically stable and he and his were explained results of all lab testing. They agreed with plan for admission. Vital Signs Temperature 97.8 F 10/31/18 12:06 Pulse Rate 70 05/02/18 12:06 Respiratory Rate 18 05/02/18 12:06 Blood Pressure 101/63 05/02/18 12:06 O2 Sat by Pulse Oximetry 98 05/02/18 12:06 Temperature 98.0 F 05/02/18 19:03 Pulse Rate 64 05/02/18 19:03 Respiratory Rate 15 05/02/18 19:03 Blood Pressure 102/71 05/02/18 19:03 O2 Sat by Pulse Oximetry 95 05/02/18 19:03 Oxygen Delivery Oxygen Delivery Room Air Cervical Spine CT 05/02/18 12:10 IMPRESSION: No acute abnormality of the cervical spine. Xcrh-bo-[id number] degenerative disc disease and spondylosis predominates mid and lower cervical spine. D/ / Partha Ro / Partha Ro Interpreting Provider: Partha Ro Head CT 05/02/18 12:10 IMPRESSION: No acute intracranial abnormality. Stable near complete opacification of the right maxillary sinus, suggesting chronic sinusitis. D/ / Dax Epstein / Dax Epstein Interpreting Provider: Dax Epstein Chest X-Ray 05/02/18 12:25 IMPRESSION: 1. Low lung volumes with platelike atelectasis in the right mid lung. D/ / Elkin Rene MD / Elkin Rene MD Interpreting Provider: Elkin Rene MD Hip X-Ray 05/02/18 15:45 IMPRESSION: No acute osseous abnormality demonstrated. Mild bilateral hip osteoarthrosis. D/ / Jose Francisco Dong MD / Jose Francisco Dong MD Interpreting Provider: Jose Francisco Dong MD - Lab Data Result diagrams: 05/02/18 13:02 05/02/18 13:02 Lab Results 05/02/18 05/02/18 05/02/18 Range/Units 13:02 13:02 13:02 WBC 8.5 (4.3-11.1) K/mcL RBC 5.26 (4.19-5.50) M/mcL Hgb 14.5 D (12.9-16.9) g/dL Hct 46.6 (37.5-50.1) % MCV 88.6 (83.0-100.0) fL MCH 27.6 L (28.0-33.3) pg MCHC 31.1 L (31.6-35.5) g/dL RDW 15.1 H (11.5-14.5) % Plt Count 312 (140-400) K/mcL MPV 9.8 (9.4-12.4) fL Immature Gran % 0.2 (0-4) % Seg Neutrophils % 74.2 % Lymphocytes % 11.8 % Monocytes % 8.9 % Eosinophils % 4.4 % Basophils % 0.5 % Neutrophils # 6.3 (1.6-8.9) K/mcL Lymphocytes # 1.0 (0.6-4.6) K/mcL Monocytes # 0.8 (0.0-1.3) K/mcL Eosinophils # 0.4 (0.0-0.6) K/mcL Basophils # 0.0 (0.0-0.2) K/mcL Sodium 138 (136-145) mEq/L Potassium 4.5 (3.5-5.1) mEq/L Chloride 101 (98-107) mEq/L Carbon Dioxide 28 (23-29) mEq/L BUN 33 H (8-23) mg/dL Creatinine 2.01 H (0.70-1.30) mg/dL Est GFR ( Amer) 40 L (> 60) Est GFR (Non-Af Amer) 33 L (> 60) BUN/Creatinine Ratio 16 (6-26) Glucose 94 (70-105) mg/dL Calculated Osmolality 293 (280-300) Calcium 8.9 (8.6-10.3) mg/dL Troponin I < 0.03 (< 0.04) ng/mL B-Natriuretic Peptide (Less than 100) pg/mL Urine Color (Yellow) Urine Clarity (Clear) Urine pH (5.0-8.0) pH Units Ur Specific [place] (1.010-1.025) Urine Protein (Neg-Trace) mg/dL Urine Glucose (UA) (Normal) mg/dL Urine Ketones (Negative) mg/dL Urine Blood (Negative) Urine Nitrite (Negative) Urine Bilirubin (Negative) Urine Urobilinogen (Normal) mg/dL Ur Leukocyte Esterase (Negative) Ur Culture Indicated? (NO) 05/02/18 05/02/18 Range/Units 13:02 13:12 WBC (4.3-11.1) K/mcL RBC (4.19-5.50) M/mcL Hgb (12.9-16.9) g/dL Hct (37.5-50.1) % MCV (83.0-100.0) fL MCH (28.0-33.3) pg MCHC (31.6-35.5) g/dL RDW (11.5-14.5) % Plt Count (140-400) K/mcL MPV (9.4-12.4) fL Immature Gran % (0-4) % Seg Neutrophils % % Lymphocytes % % Monocytes % % Eosinophils % % Basophils % % Neutrophils # (1.6-8.9) K/mcL Lymphocytes # (0.6-4.6) K/mcL Monocytes # (0.0-1.3) K/mcL Eosinophils # (0.0-0.6) K/mcL Basophils # (0.0-0.2) K/mcL Sodium (136-145) mEq/L Potassium (3.5-5.1) mEq/L Chloride (98-107) mEq/L Carbon Dioxide (23-29) mEq/L BUN (8-23) mg/dL Creatinine (0.70-1.30) mg/dL Est GFR ( Amer) (> 60) Est GFR (Non-Af Amer) (> 60) BUN/Creatinine Ratio (6-26) Glucose (70-105) mg/dL Calculated Osmolality (280-300) Calcium (8.6-10.3) mg/dL Troponin I (< 0.04) ng/mL B-Natriuretic Peptide 120 H (Less than 100) pg/mL Urine Color Yellow (Yellow) Urine Clarity Clear (Clear) Urine pH 6.0 (5.0-8.0) pH Units Ur Specific [place] 1.009 L (1.010-1.025) Urine Protein Negative (Neg-Trace) mg/dL Urine Glucose (UA) Normal (Normal) mg/dL Urine Ketones Negative (Negative) mg/dL Urine Blood Negative (Negative) Urine Nitrite Negative (Negative) Urine Bilirubin Negative (Negative) Urine Urobilinogen Normal (Normal) mg/dL Ur Leukocyte Esterase Negative (Negative) Ur Culture Indicated? NO (NO) - EKG Data EKG #1 EKG attestation: Yes I reviewed and interpreted this EKG. EKG results narrative: 12:12 Heart rate 60 beats for minute, IA interval 171 ms, QRS duration 190 ms, QTC 401 ms, normal axis. Atrial paced rhythm intraventricular conduction delay. Attestation Statement - Attestation Attestation: I, Dakota Arevalo, examined this patient and my medical decision-making was reviewed with the COMPOSING ROOM MACHINIST/PA/Advanced Practice Nurse/Resident Physician. I agree with the documented findings, disposition and treatment plan as described except to the extent set forth below. 68-year-old male presents emergency Department with concerns of altered mental status and pain after a fall. states the patient had become increasingly fatigued over the past 2 days similar to when he had acute renal failure in the past. She got him up to the restroom and when he tried to stand he syncopized, falling to the ground. He fell to his left hip. He is moving the leg well in the emergency department. Laboratory evaluation shows acute renal failure. CT of the head and neck did not show acute fracture or intracranial hemorrhage. X- ray of the chest did not show pneumothorax or acute infiltrate. He will be admitted to the hospitalist for further care and evaluation of his acute renal failure.
[2018-05-02] MEDS ORDERED: traMADol 50 MG TABLET PO PRN (16:13)
[2018-05-02] MEDS ORDERED: Acetaminophen 325 MG TABLET PO PRN (16:13)
[2018-05-02] MEDS ORDERED: Naloxone 0.4 MG/ML INJ IVP PRN (16:13)
[2018-05-02] MEDS ORDERED: Sennosides/Docusate Sodium TABLET PO PRN (16:17)
[2018-05-02] MEDS ORDERED: Simethicone 80 MG TAB.CHEW PO PRN (16:17)
--- NOTE | 2018-05-02 16:31 | Internal Med History&Physical ---
Date of Encounter: 05/02/18 Time of Encounter: 16:26 Internal Medicine - H&P: HPI Admitted From: Home Plans for Post Hospital Care: Home History of present illness: Mr. Issa is a 68 year old male presents emergency Department with concerns of altered mental status and pain after a fall. states the patient had become increasingly fatigued over the past 2 days similar to when he had acute renal failure in the past. She got him up to the restroom and when he tried to stand he syncopized, falling to the ground. He fell to his left hip. He is moving the leg well in the emergency department. Laboratory evaluation shows acute renal failure. CT of the head and neck did not show acute fracture or intracranial hemorrhage. X-ray of the chest did not show pneumothorax or acute infiltrate. He will be admitted to the hospitalist for further care and evaluation of his acute renal failure. Past Med Surg Social Fam HX - Past Medical History Medical history: arthritis, atrial fibrillation, CHF, COPD, coronary artery disease, CVA, diabetes, GERD, hyperlipidemia, hypertension, pulmonary embolus, renal disease Additional medical history: Pacemaker, emphysema Psychiatric history: anxiety, bipolar, depression, panic disorder - Past Surgical History Surgical History: cholecystectomy, herniorrhaphy, knee replacement, orthopedic, other, pacemaker/AICD Additional surgical history: Right knee replacement. Cardiac Ablasion. left arm - Social History Smoking Status: Former smoker Smokeless Tobacco Status: No Alcohol use: none Drug use: none - Family History Father Adopted: No Family Member Ethnicity: Non- Living Status: Hx Family Cardiac Disorders: No Hx Family Respiratory Disorders: No Hx Family Cancer: Yes Hx Family GI Disorders: No Hx Family Endocrine Disorder: No Hx Family Neuromuscular Disorders: No Hx Family Neurologic Disorders: No Hx Family HEENT Disorders: No Hx Family Autoimmune Disorders: No Brother Family Member Ethnicity: Non- Living Status: Still Living Sister Family Member Ethnicity: Non- Living Status: Still Living Mother Adopted: No Family Member Ethnicity: Non- Twin of Family Member: Yes Living Status: Hx Family Cardiac Disorders: Yes Hx Family Respiratory Disorders: No Hx Family Cancer: No Hx Family GI Disorders: No Hx Family Endocrine Disorder: No Hx Family Neuromuscular Disorders: No Hx Family Neurologic Disorders: No Hx Family HEENT Disorders: No Hx Family Autoimmune Disorders: No Internal Medicine - H&P: Meds Amiodarone [Cordarone] 200 mg PO DAILY 04/04/18 [History] Aspirin 81 mg PO DAILY 04/04/18 [History] Atorvastatin [Lipitor] 40 mg PO HS 04/04/18 [History] Cholecalciferol (Vitamin D3) [Vitamin D3] 2,000 unit PO DAILY 04/04/18 [History] DULoxetine [Cymbalta] 30 mg PO DAILY 04/04/18 [History] Finasteride [Proscar] 5 mg PO DAILY 04/04/18 [History] Gabapentin [Neurontin] 400 mg PO BID 04/04/18 [History] Lubiprostone [Amitiza] 16 mcg PO BID@0800,1700 04/04/18 [History] Melatonin [Melatin] 9 mg PO HS 04/04/18 [History] Memantine HCl 10 mg PO BID 04/04/18 [History] Metoprolol XL (24 HR) Succ [Toprol Xl] 12.5 mg PO HS 04/04/18 [History] Pantoprazole Sodium [Protonix] 40 mg PO DAILY 04/04/18 [History] Rivaroxaban [Xarelto] 20 mg PO DAILY 04/04/18 [History] Sennosides/Docusate Sodium [Colace 2-in-1 Tablet] 1 each PO Q12H PRN 04/04/18 [History] Simethicone [Bicarsim] 80 mg PO Q8H PRN 04/04/18 [History] Tamsulosin HCl [Flomax] 0.4 mg PO BID 04/04/18 [History] Tizanidine HCl [Zanaflex] 2 mg PO BID 04/04/18 [History] Trazodone HCl 200 mg PO HS 04/04/18 [History] Losartan [Cozaar] 25 mg PO DAILY 04/24/18 [History] Spironolactone [Aldactone] 25 mg PO DAILY 04/24/18 [History] Tiotropium Br/Olodaterol HCl [Stiolto Respimat Inhal [place]] 2 puff IH DAILY 04/24/18 [History] Insulin ASPART [NovoLOG] 0 unit SQ TIDWM PRN 04/25/18 [History] Furosemide [Lasix] 40 mg PO DAILY #0 04/28/18 [Rx] Potassium Chloride [K-Tab ER] 20 meq PO BID #0 04/28/18 [Rx] Spironolactone [Aldactone] 25 mg PO BID #60 tablet 04/28/18 [Rx] Triamcinolone Acet 0.1% CRM [Kenalog] 1 appl TP BID tube 04/28/18 [Rx] Allergy/AdvReac Type Severity Reaction Status Date / Time IVP DYE Allergy Severe Anaphylaxis Uncoded 04/03/18 22:56 All Systems PM: A 10-system review of systems was performed and is negative for pertinent findings except as documented above in the HPI. Review of systems: REVIEW OF SYSTEMS: CONSTITUTIONAL: No weight loss, fever, chills, weakness or fatigue. HEENT: Eyes: No visual loss, blurred vision, double vision or yellow sclerae. Ears, Nose, Throat: No hearing loss, sneezing, congestion, runny nose or sore throat. SKIN: No rash or itching. CARDIOVASCULAR: No chest pain, chest pressure or chest discomfort. No palpitations or edema. RESPIRATORY: No shortness of breath, cough or sputum. GASTROINTESTINAL: No anorexia, nausea, vomiting or diarrhea. No abdominal pain or blood. GENITOURINARY: No dysuria, urgency, or frequency. NEUROLOGICAL: No headache, dizziness, syncope, paralysis, ataxia, numbness or tingling in the extremities. No change in bowel or bladder control. MUSCULOSKELETAL: No muscle, back pain, joint pain or stiffness. HEMATOLOGIC: No anemia, bleeding or bruising. LYMPHATICS: No enlarged nodes. No history of splenectomy. PSYCHIATRIC: No history of depression or anxiety. ENDOCRINOLOGIC: No reports of sweating, cold or heat intolerance. No polyuria or polydipsia. - Constitutional Vitals: Temp Pulse Resp BP Pulse Ox 97.8 F 68 18 108/73 99 05/02/18 12:06 05/02/18 14:49 05/02/18 14:49 05/02/18 14:49 05/02/18 14:49 General appearance: Present: cooperative, A&O X 3, answers questions appropriately Exam: PHYSICAL EXAMINATION: GENERAL APPEARANCE: The patient is alert, oriented and in no acute distress. HEENT: Head is normocephalic. The sinuses are nontender. Pupils are equal and reactive. The nares are patent. Oropharynx clear without lesions. NECK: Supple without lymphadenopathy. HEART: Regular rate and rhythm. LUNGS: No crackles or wheezes are heard. ABDOMEN: Soft, nontender, nondistended with good bowel sounds heard. Inguinal area is normal. EXTREMITIES: 1-2 + pitting edema on BLE. NEUROLOGICAL: Gross nonfocal. SKIN: Warm and dry without any rash. Internal Med - H&P Results - Labs CBC & Chem 7: 05/02/18 13:02 05/02/18 13:02 Labs: Short CBC 05/02/18 Range/Units 13:02 WBC 8.5 (4.3-11.1) K/mcL Hgb 14.5 D (12.9-16.9) g/dL Hct 46.6 (37.5-50.1) % Plt Count 312 (140-400) K/mcL Neutrophils # 6.3 (1.6-8.9) K/mcL BMP 05/02/18 13:02 Sodium 138 Potassium 4.5 Chloride 101 Carbon Dioxide 28 BUN 33 H Creatinine 2.01 H Glucose 94 Calcium 8.9 Cardiac Enzymes 05/02/18 Range/Units 13:02 Troponin I < 0.03 (< 0.04) ng/mL Urine 05/02/18 Range/Units 13:12 Urine Color Yellow (Yellow) Urine Clarity Clear (Clear) Urine pH 6.0 (5.0-8.0) pH Units Ur Specific [place] 1.009 L (1.010-1.025) Urine Protein Negative (Neg-Trace) mg/dL Urine Glucose (UA) Normal (Normal) mg/dL - Impressions ITS Impressions Cervical Spine CT 05/02/18 12:10 IMPRESSION: No acute abnormality of the cervical spine. Kmdy-tn-cvozgsny degenerative disc disease and spondylosis predominates mid and lower cervical spine. D/ / Partha Ro / Partha Ro Interpreting Provider: Partha Ro Head CT 05/02/18 12:10 IMPRESSION: No acute intracranial abnormality. Stable near complete opacification of the right maxillary sinus, suggesting chronic sinusitis. D/ / Dax Epstein / Dax Epstein Interpreting Provider: Dax Epstein Chest X-Ray 05/02/18 12:25 IMPRESSION: 1. Low lung volumes with platelike atelectasis in the right mid lung. D/ / Elkin Rene MD / Elkin Rene MD Interpreting Provider: Elkin Rene MD - Assessment and plan (1) Falls Current Visit: Yes Status: Acute Assessment and plan: Presented with a fall at home. Pt on long-term AC due to Afib. Head CT is negative for bleeding. Cervical XR no fracture. Pending hip XR. Qualifiers: Encounter type: initial encounter Qualified Code(s): W19.XXXA - Unspecified fall, initial encounter (2) Acute kidney injury Current Visit: Yes Status: Acute Assessment and plan: Hx of CHF and on Lasix and aldactone. He had several similar events in the past when he was overdiuresed. He is euvolemic on physical exam. We will hold Aldactone for now but continue lasix. Monitor RFP. (3) Chronic diastolic (congestive) heart failure Current Visit: No Status: Chronic Assessment and plan: euvolemic, hold Aldactone for AG, continue lasix and other home meds. (4) Hypertension Current Visit: No Status: Chronic Assessment and plan: BP controlled. continue home meds. Qualifiers: Hypertension type: essential hypertension Qualified Code(s): I10 - Essential (primary) hypertension (5) Anxiety Current Visit: No Status: Chronic Assessment and plan: continue home meds. (6) Depression Current Visit: No Status: Chronic Assessment and plan: continue home meds. Qualifiers: Depression Type: major depressive disorder Major depression recurrence: recurrent Active/Remission status: in full remission Qualified Code(s): F33.42 - Major depressive disorder, recurrent, in full remission (7) Paroxysmal a-fib Current Visit: No Status: Chronic Assessment and plan: rate controlled. continue Xarelto. (8) CAD (coronary atherosclerotic disease) Current Visit: No Status: Chronic Qualifiers: Coronary Disease-Associated Artery/Lesion type: [place] artery [place] vs. transplanted heart: [place] heart Associated angina: without angina Qualified Code(s): I25.10 - Atherosclerotic heart disease of [place] coronary artery without angina pectoris (9) COPD (chronic obstructive pulmonary disease) Current Visit: No Status: Chronic Qualifiers: COPD type: unspecified COPD Qualified Code(s): J44.9 - Chronic obstructive pulmonary disease, unspecified (10) Diabetes mellitus Current Visit: No Status: Chronic Qualifiers: Diabetes mellitus type: type 2 Diabetes mellitus termite treater helper insulin use: wi thout termite treater helper use Diabetes mellitus complication status: with kidney co mplications Diabetes mellitus complication detail: with chronic kidney disease Chronic kidney disease stage: stage 3 (moderate) Qualified Code(s): E11.22 - Type 2 diabetes mellitus with diabetic chronic kidney disease; N18.3 - Chronic kidney disease, stage 3 (moderate) (11) HLD (hyperlipidemia) Current Visit: No Status: Chronic Qualifiers: Hyperlipidemia type: pure hypercholesterolemia Qualified Code(s): E78.00 - Pure hypercholesterolemia, unspecified; E78.0 - Pure hypercholesterolemia (12) Cerebrovascular accident Current Visit: No Status: Chronic Qualifiers: CVA mechanism: embolism Precerebral and cerebral artery: unspecified cerebral artery Qualified Code(s): I63.40 - Cerebral infarction due to embolism of unspecified cerebral artery (13) DVT prophylaxis Current Visit: Yes Status: Acute Assessment and plan: continue home Xarelto. - Time Spent With Patient Total time spent is greater than 50% in coordination of care (as documented) at patient's floor/unit and/or counseling patient: Greater than 35 minutes
[2018-05-02] MEDS: Metoprolol XL (24 HR) Succ 25 MG TAB.ER.24H PO SCH (21:40)
[2018-05-02] MEDS: tiZANidine 4 MG TABLET PO SCH (21:41)
[2018-05-02] MEDS: traZODone 50 MG TABLET PO SCH (21:42)
[2018-05-02] MEDS: Melatonin 3 MG TABLET PO SCH (21:42)
[2018-05-02] MEDS: Gabapentin 400 MG CAPSULE PO SCH (21:42)
[2018-05-03 04:42] LABS: Basophils # 0.1 K/mcL (0.0-0.2); Basophils % 0.7 %; Eosinophils # 0.4 K/mcL (0.0-0.6); Eosinophils % 5.2 %; Hematocrit 40.2 % (37.5-50.1); Immature Granulocytes % 0.3 % (0-4); Lymphocytes # 1.4 K/mcL (0.6-4.6); Lymphocytes % 20.7 %; Mean Corpuscular HGB Conc 31.6 g/dL (31.6-35.5); Mean Corpuscular Hemoglobin 27.4 pg (28.0-33.3); Mean Corpuscular Volume 86.8 fL (83.0-100.0); Mean Platelet Volume 9.9 fL (9.4-12.4); Monocytes # 0.9 K/mcL (0.0-1.3); Monocytes % 12.7 %; Neutrophils # 4.1 K/mcL (1.6-8.9); Platelet Count 274 K/mcL (140-400); Red Blood Count 4.63 M/mcL (4.19-5.50); Red Cell Distribution Width 15.2 % (11.5-14.5); Segmented Neutrophils % 60.4 %
[2018-05-03 04:47] LABS: Hemoglobin 12.7 g/dL (12.9-16.9)
[2018-05-03 04:58] LABS: Calcium 8.4 mg/dL (8.6-10.3); Potassium 4.2 mEq/L (3.5-5.1)
[2018-05-03] MEDS: Triamcinolone Acet 0.1% CRM 15 GM TUBE TP SCH ×3 (05:19→22:12)
[2018-05-03] MEDS: LUBIPROSTONE PO SCH ×2 (05:20→08:29)
--- NOTE | 2018-05-03 06:51 | Electrocardiograph Report ---
[employer] Test Date: 2018-05-02 Pat Name: Dakota Issa Department: [id number] Room: 3A14 Gender: M [employer]: : 1950 Requested By: Nasim Zarco Order Number: [id number] Reading MD: Salvador Thomas Measurements Intervals Harold Rate: 68 P: PA: 71 QRS: 91 QRSD: 119 T: 63 QT: 401 QTc: 427 Interpretive Statements Atrial-paced complexes Nonspecific intraventricular conduction delay Probable inferior infarct, old Electronically Signed On 05-03-2018 6:49:43 EDT by Salvador Thomas
[2018-05-03] MEDS ORDERED: (Tiotropium Br/Olodaterol Hcl [Stiolto Respimat Inhal) IH SCH (09:00)
[2018-05-03] MEDS: Cholecalciferol (D-3) 1,000 UNIT TABLET PO SCH (10:26)
[2018-05-03] MEDS: Gabapentin 400 MG CAPSULE PO SCH ×2 (10:26→22:11)
[2018-05-03] MEDS: Finasteride 5 MG TABLET PO SCH (10:26)
[2018-05-03] MEDS: *HR* OxyCODONE Immed Rel 5 MG TABLET PO PRN (10:26)
[2018-05-03] MEDS: Aspirin 81 MG TAB.CHEW PO SCH (10:27)
[2018-05-03] MEDS: *HR* Rivaroxaban 10 MG TABLET PO SCH (10:27)
[2018-05-03] MEDS: Furosemide 40 MG TABLET PO SCH (10:27)
[2018-05-03] MEDS: tiZANidine 4 MG TABLET PO SCH ×2 (10:27→22:10)
[2018-05-03] MEDS: *HR* Amiodarone 200 MG TABLET PO SCH (10:27)
[2018-05-03] MEDS: Tiotropium 18 MCG inhalation IH SCH (11:12)
--- NOTE | 2018-05-03 11:29 | Internal Med Progress Note ---
Hospitalist Progress Note - Encounter Date of Encounter: 05/03/18 Time of Encounter: 11:26 - Subjective Interval History: Patient seen and examined in the room, he complains of right hip pain. He denies any fever, chills, or night sweats. - Exam Vitals: Temp Pulse Resp BP Pulse Ox 98.4 F 66 16 127/77 92 05/03/18 10:51 05/03/18 10:51 05/03/18 10:51 05/03/18 10:51 05/03/18 10:51 Exam: PHYSICAL EXAMINATION: GENERAL APPEARANCE: The patient is alert, oriented and in no acute distress. HEENT: Head is normocephalic. The sinuses are nontender. Pupils are equal and reactive. The nares are patent. Oropharynx clear without lesions. NECK: Supple without lymphadenopathy. HEART: Regular rate and rhythm. LUNGS: No crackles or wheezes are heard. ABDOMEN: Soft, nontender, nondistended with good bowel sounds heard. Inguinal area is normal. EXTREMITIES: 1-2 + pitting edema on BLE. NEUROLOGICAL: Gross nonfocal. SKIN: Warm and dry without any rash. - Assessment and Plan (1) Falls Current Visit: Yes Status: Acute Assessment and Plan: Presented with a fall at home. Pt on long-term AC due to Afib. Head CT is negative for bleeding. Cervical XR no fracture. Left hip XR free of fracture. will order XR for right hip today. (2) Acute kidney injury Current Visit: Yes Status: Acute Assessment and Plan: Hx of CHF and on Lasix and aldactone. He had several similar events in the past when he was overdiuresed. He is euvolemic on physical exam. We will hold Aldactone for now but continue lasix. Creatinine down from 2.1 to 1.6 today. change Aldactone to 20 mg daily and monitor RFP in am. Comments: Stage 3 moderate (3) Chronic diastolic (congestive) heart failure Current Visit: No Status: Chronic Assessment and Plan: euvolemic, continue lasix and other home meds, Aldactone dose adjusted to 20 mg daily due to AG, renal function improved. (4) Hypertension Current Visit: No Status: Chronic Assessment and Plan: BP controlled. continue home meds. (5) Anxiety Current Visit: No Status: Chronic Assessment and Plan: continue home meds. (6) Depression Current Visit: No Status: Chronic Assessment and Plan: continue home meds. (7) Paroxysmal a-fib Current Visit: No Status: Chronic Assessment and Plan: rate controlled. continue Xarelto and metoprolol. (8) CAD (coronary atherosclerotic disease) Current Visit: No Status: Chronic Assessment and Plan: No chest pain, continue home meds. (9) COPD (chronic obstructive pulmonary disease) Current Visit: No Status: Chronic Assessment and Plan: No respiratory distress, continue home meds. (10) Diabetes mellitus Current Visit: No Status: Chronic Assessment and Plan: Hold oral agents for now. Continue insulin sliding scale. (11) HLD (hyperlipidemia) Current Visit: No Status: Chronic Assessment and Plan: Continue home meds. (12) Cerebrovascular accident Current Visit: No Status: Chronic Assessment and Plan: Continue home meds. (13) DVT prophylaxis Current Visit: Yes Status: Acute Assessment and Plan: continue home Xarelto. - Time Spent with Patient Total time spent is greater than 50% in coordination of care (as documented) at patient's floor/unit and/or counseling patient: Greater than 35 minutes Plan of Care Discussed with: patient Internal Medicine: Result - Labs CBC & Chem 7: 05/03/18 03:22 05/03/18 03:22 Labs: Short CBC 05/02/18 05/03/18 Range/Units 13:02 03:22 WBC 8.5 6.9 (4.3-11.1) K/mcL Hgb 14.5 D 12.7 L D (12.9-16.9) g/dL Hct 46.6 40.2 (37.5-50.1) % Plt Count 312 274 (140-400) K/mcL Neutrophils # 6.3 4.1 (1.6-8.9) K/mcL BMP 05/02/18 05/03/18 13:02 03:22 Sodium 138 138 Potassium 4.5 4.2 Chloride 101 101 Carbon Dioxide 28 26 BUN 33 H 30 H Creatinine 2.01 H 1.65 H Glucose 94 113 H Calcium 8.9 8.4 L Cardiac Enzymes 05/02/18 Range/Units 13:02 Troponin I < 0.03 (< 0.04) ng/mL Urine 05/02/18 Range/Units 13:12 Urine Color Yellow (Yellow) Urine Clarity Clear (Clear) Urine pH 6.0 (5.0-8.0) pH Units Ur Specific [place] 1.009 L (1.010-1.025) Urine Protein Negative (Neg-Trace) mg/dL Urine Glucose (UA) Normal (Normal) mg/dL - Impressions Impressions Cervical Spine CT 05/02/18 12:10 IMPRESSION: No acute abnormality of the cervical spine. [id number] degenerative disc disease and spondylosis predominates mid and lower cervical spine. D/ / Partha Ro / Partha Ro Interpreting Provider: Partha Ro Head CT 05/02/18 12:10 IMPRESSION: No acute intracranial abnormality. Stable near complete opacification of the right maxillary sinus, suggesting chronic sinusitis. D/ / Dax Epstein / Dax Epstein Interpreting Provider: Dax Epstein Chest X-Ray 05/02/18 12:25 IMPRESSION: 1. Low lung volumes with platelike atelectasis in the right mid lung. D/ / Elkin Rene MD / Elkin Rene MD Interpreting Provider: Elkin Rene MD Hip X-Ray 05/02/18 15:45 IMPRESSION: No acute osseous abnormality demonstrated. Mild bilateral hip osteoarthrosis. D/ / Jose Francisco Dong MD / Jose Francisco Dong MD Interpreting Provider: Jose Francisco Dong MD Consult Discharge Plan - Plan Referrals: Edda Rm DO [Primary Care Provider] - (1) Falls Qualifiers: Encounter type: initial encounter Qualified Code(s): W19.XXXA - Unspecified fall, initial encounter (4) Hypertension Qualifiers: Hypertension type: essential hypertension Qualified Code(s): I10 - Essential (primary) hypertension (6) Depression Qualifiers: Depression Type: major depressive disorder Major depression recurrence: recurrent Active/Remission status: in full remission Qualified Code(s): F33.42 - Major depressive disorder, recurrent, in full remission (8) CAD (coronary atherosclerotic disease) Qualifiers: Coronary Disease-Associated Artery/Lesion type: [place] artery [place] vs. transplanted heart: [place] heart Associated angina: without angina Qualified Code(s): I25.10 - Atherosclerotic heart disease of [place] coronary artery without angina pectoris (9) COPD (chronic obstructive pulmonary disease) Qualifiers: COPD type: unspecified COPD Qualified Code(s): J44.9 - Chronic obstructive pulmonary disease, unspecified (10) Diabetes mellitus Qualifiers: Diabetes mellitus type: type 2 Diabetes mellitus mcc insulin use: without mcc use Diabetes mellitus complication status: with kidney complications Diabetes mellitus complication detail: with chronic kidney disease Chronic kidney disease stage: stage 3 (moderate) Qualified Code(s): E11.22 - Type 2 diabetes mellitus with diabetic chronic kidney disease; N18.3 - Chronic kidney disease, stage 3 (moderate) (11) HLD (hyperlipidemia) Qualifiers: Hyperlipidemia type: pure hypercholesterolemia Qualified Code(s): E78.00 - Pure hypercholesterolemia, unspecified; E78.0 - Pure hypercholesterolemia (12) Cerebrovascular accident Qualifiers: CVA mechanism: embolism Precerebral and cerebral artery: unspecified cerebral artery Qualified Code(s): I63.40 - Cerebral infarction due to embolism of unspecified cerebral artery
[2018-05-03] MEDS: Albuterol 2.5 MG/3 ML NEBULIZER IH SCH ×2 (15:34→23:04)
--- NOTE | 2018-05-03 15:53 | Physician Discharge Referral ---
Home Health/Hosp Referral Info Transfer to: Home Health Provider in Charge Post Discharge: PCP - Diagnosis (1) Falls Priority: Primary Status: Acute (2) Acute kidney injury Priority: Primary Status: Acute (3) Chronic diastolic (congestive) heart failure Priority: Secondary Status: Chronic (4) Hypertension Priority: Secondary Status: Chronic (5) Anxiety Priority: Secondary Status: Chronic (6) Depression Priority: Secondary Status: Chronic (7) Paroxysmal a-fib Priority: Secondary Status: Chronic (8) CAD (coronary atherosclerotic disease) Priority: Secondary Status: Chronic (9) COPD (chronic obstructive pulmonary disease) Priority: Secondary Status: Chronic (10) Diabetes mellitus Priority: Secondary Status: Chronic (11) HLD (hyperlipidemia) Priority: Secondary Status: Chronic (12) Cerebrovascular accident Priority: Secondary Status: Chronic (13) DVT prophylaxis Priority: Primary Status: Acute - Respiratory Orders Smoking Cessation: Smoking cessation has been advised. For more information, call the [place] Tobacco Quit Line at 6-984-EEEQ-NOW. - Activity Activity Orders: Up ad tate - Services Needed Following services are medically necessary services: Nursing, Home Health Aide, Physical Therapy, Occupational Therapy - Transfer Medications Home Medications: Amiodarone [Cordarone] 200 mg PO DAILY 04/04/18 [History] Aspirin 81 mg PO DAILY 04/04/18 [History] Atorvastatin [Lipitor] 40 mg PO HS 04/04/18 [History] Cholecalciferol (Vitamin D3) [Vitamin D3] 2,000 unit PO DAILY 04/04/18 [History] DULoxetine [Cymbalta] 30 mg PO DAILY 04/04/18 [History] Finasteride [Proscar] 5 mg PO DAILY 04/04/18 [History] Gabapentin [Neurontin] 400 mg PO BID 04/04/18 [History] Lubiprostone [Amitiza] 16 mcg PO BID@0800,1700 04/04/18 [History] Melatonin [Melatin] 9 mg PO HS 04/04/18 [History] Memantine HCl 10 mg PO BID 04/04/18 [History] Metoprolol XL (24 HR) Succ [Toprol Xl] 12.5 mg PO HS 04/04/18 [History] Pantoprazole Sodium [Protonix] 40 mg PO DAILY 04/04/18 [History] Rivaroxaban [Xarelto] 20 mg PO DAILY 04/04/18 [History] Sennosides/Docusate Sodium [Colace 2-in-1 Tablet] 1 each PO Q12H PRN 04/04/18 [History] Simethicone [Bicarsim] 80 mg PO Q8H PRN 04/04/18 [History] Tamsulosin HCl [Flomax] 0.4 mg PO BID 04/04/18 [History] Tizanidine HCl [Zanaflex] 2 mg PO BID 04/04/18 [History] Trazodone HCl 200 mg PO HS 04/04/18 [History] Losartan [Cozaar] 25 mg PO DAILY 04/24/18 [History] Tiotropium Br/Olodaterol HCl [Stiolto Respimat Inhal [place]] 2 puff IH DAILY 04/24/18 [History] Insulin ASPART [NovoLOG] 0 unit SQ TIDWM PRN 04/25/18 [History] Furosemide [Lasix] 40 mg PO DAILY #0 04/28/18 [Rx] Potassium Chloride [K-Tab ER] 20 meq PO BID #0 04/28/18 [Rx] Spironolactone [Aldactone] 25 mg PO BID #60 tablet 04/28/18 [Rx] Allergies/Adverse Reactions: Allergy/AdvReac Type Severity Reaction Status Date / Time IVP DYE Allergy Severe Anaphylaxis Uncoded 04/03/18 22:56 Certification: Further, I certify that my clinical findings support that this patient is homebound (i.e. absences from home require considerable and taxing effort and are for medical reasons or holiness services or infrequently or short duration when for other reasons) because: Homebound Reason: Patient requires assistance of a person or device to safely leave home Attestation: My signature below is to certify that this patient is under my care and that I, or nurse practitioner, or a physician's observation assistant working with me, has a [id number] encounter with this patient.
[2018-05-03] MEDS ORDERED: 0.9 % Sodium Chloride 250 ML IVC ONE (19:40)
[2018-05-03] MEDS: traZODone 50 MG TABLET PO SCH (22:10)
[2018-05-03] MEDS: Metoprolol XL (24 HR) Succ 25 MG TAB.ER.24H PO SCH (22:13)
[2018-05-03] MEDS: Melatonin 3 MG TABLET PO SCH (22:13)
[2018-05-03] MEDS: *HR* LORazepam 0.5 MG TABLET PO PRN (22:18)
[2018-05-04] MEDS: Albuterol 2.5 MG/3 ML NEBULIZER IH SCH ×4 (05:16→22:42)
[2018-05-04] MEDS: Spironolactone 25 MG TABLET PO SCH ×2 (08:47→09:56)
[2018-05-04] MEDS: Gabapentin 400 MG CAPSULE PO SCH ×2 (08:47→22:03)
[2018-05-04] MEDS: Finasteride 5 MG TABLET PO SCH (08:48)
[2018-05-04] MEDS: *HR* Amiodarone 200 MG TABLET PO SCH (08:48)
[2018-05-04] MEDS: Aspirin 81 MG TAB.CHEW PO SCH (08:48)
[2018-05-04] MEDS: Furosemide 40 MG TABLET PO SCH ×2 (08:49→09:57)
[2018-05-04] MEDS: Cholecalciferol (D-3) 1,000 UNIT TABLET PO SCH (08:49)
[2018-05-04] MEDS: *HR* Rivaroxaban 10 MG TABLET PO SCH (08:49)
[2018-05-04] MEDS: tiZANidine 4 MG TABLET PO SCH ×2 (08:49→22:04)
[2018-05-04] MEDS: Triamcinolone Acet 0.1% CRM 15 GM TUBE TP SCH (08:50)
[2018-05-04] MEDS: Tiotropium 18 MCG inhalation IH SCH (10:18)
[2018-05-04 10:51] LABS: Calcium 8.8 mg/dL (8.6-10.3); Potassium 4.8 mEq/L (3.5-5.1)
--- NOTE | 2018-05-04 11:18 | Discharge Summary ---
- NOTES TO OUTPATIENT PROVIDER Notes to Outpatient Provider: f/u with PCP as needed. Date of Encounter: 05/04/18 Time of Encounter: 11:14 - Discharge Diagnosis (1) Falls Priority: Primary Status: Acute Qualifiers: Encounter type: initial encounter Qualified Code(s): W19.XXXA - Unspecified fall, initial encounter (2) Acute kidney injury Priority: Primary Status: Resolved (3) Chronic diastolic (congestive) heart failure Priority: Secondary Status: Chronic (4) Hypertension Priority: Secondary Status: Chronic Qualifiers: Hypertension type: essential hypertension Qualified Code(s): I10 - Essential (primary) hypertension (5) Anxiety Priority: Secondary Status: Chronic (6) Depression Priority: Secondary Status: Chronic Qualifiers: Depression Type: major depressive disorder Major depression recurrence: recurrent Active/Remission status: in full remission Qualified Code(s): F33.42 - Major depressive disorder, recurrent, in full remission (7) Paroxysmal a-fib Priority: Secondary Status: Chronic (8) CAD (coronary atherosclerotic disease) Priority: Secondary Status: Chronic Qualifiers: Coronary Disease-Associated Artery/Lesion type: [place] artery [place] vs. transplanted heart: [place] heart Associated angina: without angina Qualified Code(s): I25.10 - Atherosclerotic heart disease of [place] coronary artery without angina pectoris (9) COPD (chronic obstructive pulmonary disease) Priority: Secondary Status: Chronic Qualifiers: COPD type: unspecified COPD Qualified Code(s): J44.9 - Chronic obstructive pulmonary disease, unspecified (10) Diabetes mellitus Priority: Secondary Status: Chronic Qualifiers: Diabetes mellitus type: type 2 Diabetes mellitus halfway insulin use: without halfway use Diabetes mellitus complication status: with kidney complications Diabetes mellitus complication detail: with chronic kidney disease Chronic kidney disease stage: stage 3 (moderate) Qualified Code(s): E11.22 - Type 2 diabetes mellitus with diabetic chronic kidney disease; N18.3 - Chronic kidney disease, stage 3 (moderate) (11) HLD (hyperlipidemia) Priority: Secondary Status: Chronic Qualifiers: Hyperlipidemia type: pure hypercholesterolemia Qualified Code(s): E78.00 - Pure hypercholesterolemia, unspecified; E78.0 - Pure hypercholesterolemia (12) Cerebrovascular accident Priority: Secondary Status: Chronic Qualifiers: CVA mechanism: embolism Precerebral and cerebral artery: unspecified cerebral artery Qualified Code(s): I63.40 - Cerebral infarction due to embolism of unspecified cerebral artery (13) DVT prophylaxis Priority: Primary Status: Acute Hospital course: Mr. Issa is a 68 year old male well known to this hospital and our service presents emergency Department with concerns of altered mental status and pain after a fall. states the patient had become increasingly fatigued over the past 2 days similar to when he had acute renal failure in the past. She got him up to the restroom and when he tried to stand he syncopized, falling to the ground. He fell to his left hip. He is moving the leg well in the emergency department. Laboratory evaluation shows acute renal failure. CT of the head and neck did not show acute fracture or intracranial hemorrhage. X-ray of the chest did not show pneumothorax or acute infiltrate. XR of right and left hips revealed no fracture. His creatinine is higher than his baseline most likely secondary to diuretics overdose. Home dose of Aldactone was adjusted and his renal function has improved. On the discharge day, renal function was at baseline. He will be discarded home with home health care and house visiting physician from [place]. Discharge discussed with: patient Time spent discussing smoking cessation with patient: more than 10 minutes - Time Spent with Patient Total time spent providing and/or coordinating discharge services: 40 mins. - Discharge Medications Home Medications: Amiodarone [Cordarone] 200 mg PO DAILY 04/04/18 [History] Aspirin 81 mg PO DAILY 04/04/18 [History] Atorvastatin [Lipitor] 40 mg PO HS 04/04/18 [History] Cholecalciferol (Vitamin D3) [Vitamin D3] 2,000 unit PO DAILY 04/04/18 [History] DULoxetine [Cymbalta] 30 mg PO DAILY 04/04/18 [History] Finasteride [Proscar] 5 mg PO DAILY 04/04/18 [History] Gabapentin [Neurontin] 400 mg PO BID 04/04/18 [History] Lubiprostone [Amitiza] 16 mcg PO BID@0800,1700 04/04/18 [History] Melatonin [Melatin] 9 mg PO HS 04/04/18 [History] Memantine HCl 10 mg PO BID 04/04/18 [History] Metoprolol XL (24 HR) Succ [Toprol Xl] 12.5 mg PO HS 04/04/18 [History] Pantoprazole Sodium [Protonix] 40 mg PO DAILY 04/04/18 [History] Rivaroxaban [Xarelto] 20 mg PO DAILY 04/04/18 [History] Sennosides/Docusate Sodium [Colace 2-in-1 Tablet] 1 each PO Q12H PRN 04/04/18 [History] Simethicone [Bicarsim] 80 mg PO Q8H PRN 04/04/18 [History] Tamsulosin HCl [Flomax] 0.4 mg PO BID 04/04/18 [History] Tizanidine HCl [Zanaflex] 2 mg PO BID 04/04/18 [History] Trazodone HCl 200 mg PO HS 04/04/18 [History] Losartan [Cozaar] 25 mg PO DAILY 04/24/18 [History] Tiotropium Br/Olodaterol HCl [Stiolto Respimat Inhal [employer]] 2 puff IH DAILY 04/24/18 [History] Insulin ASPART [NovoLOG] 0 unit SQ TIDWM PRN 04/25/18 [History] Furosemide [Lasix] 40 mg PO DAILY #0 04/28/18 [Rx] Potassium Chloride [K-Tab ER] 20 meq PO BID #0 04/28/18 [Rx] Spironolactone [Aldactone] 25 mg PO DAILY tablet 05/04/18 [Rx] Allergies/Adverse Reactions: Allergy/AdvReac Type Severity Reaction Status Date / Time IVP DYE Allergy Severe Anaphylaxis Uncoded 04/03/18 22:56 Date of admission: 05/02/18 15:02 Primary care physician: Edda Rm DO Consults: 05/02/18 16:15 Consult to Occupational Therapy [CONS] Routine Comment: Evaluate, develop and implement POC Reason for Consult: dc planning Does patient have active BEDREST order?: No Is patient medically & hemodynamically stable?: Yes Patient assessed for mobility or mobilized this visit?: No Consult to Physical Therapy [CONS] Routine Comment: Evaluate, develop and implement POC Reason for Consult: dc planning Does patient have active BEDREST order?: No Is patient medically & hemodynamically stable?: Yes Patient assessed for mobility or mobilized this visit?: No Anticipated date of discharge: 05/04/18 - Constitutional Vitals: Temp Pulse Resp BP Pulse Ox 97.9 F 60 16 102/65 94 05/04/18 11:00 11/02/18 11:00 05/04/18 11:00 05/04/18 11:00 05/04/18 11:00 General appearance: Present: cooperative, A&O X 3, answers questions appropriately Exam: PHYSICAL EXAMINATION: GENERAL APPEARANCE: The patient is alert, oriented and in no acute distress. HEENT: Head is normocephalic. The sinuses are nontender. Pupils are equal and reactive. The nares are patent. Oropharynx clear without lesions. NECK: Supple without lymphadenopathy. HEART: Regular rate and rhythm. LUNGS: No crackles or wheezes are heard. ABDOMEN: Soft, nontender, nondistended with good bowel sounds heard. Inguinal area is normal. EXTREMITIES: 1-2 + pitting edema on BLE. NEUROLOGICAL: Gross nonfocal. SKIN: Warm and dry without any rash. - Patient Status Disposition: Home Health Service Condition: Fair Functional capacity at discharge: uses cane/walker Overall status at discharge: patient is progressing back to baseline - Discharge Instructions Follow Up With: Edda Rm DO [Primary Care Provider] - 05/10/18 3:45 pm (Follow up as scheduled. ) Forms: ED Satisfaction Letter - Diet and Activity Activity: increase activity as tolerated Diet: advance to your usual diet
[2018-05-04] MEDS: traZODone 50 MG TABLET PO SCH (22:03)
[2018-05-04] MEDS: Metoprolol XL (24 HR) Succ 25 MG TAB.ER.24H PO SCH (22:12)
[2018-05-04] MEDS: *HR* LORazepam 0.5 MG TABLET PO PRN (22:12)
[2018-05-04] MEDS: Melatonin 3 MG TABLET PO SCH (22:12)
[2018-05-05] MEDS: Albuterol 2.5 MG/3 ML NEBULIZER IH SCH ×4 (04:56→21:43)
[2018-05-05] MEDS: Triamcinolone Acet 0.1% CRM 15 GM TUBE TP SCH ×3 (05:13→21:09)
[2018-05-05] MEDS: Spironolactone 25 MG TABLET PO SCH (08:52)
[2018-05-05] MEDS: Furosemide 40 MG TABLET PO SCH (08:52)
[2018-05-05] MEDS: Finasteride 5 MG TABLET PO SCH (08:52)
[2018-05-05] MEDS: tiZANidine 4 MG TABLET PO SCH ×2 (08:53→21:00)
[2018-05-05] MEDS: Cholecalciferol (D-3) 1,000 UNIT TABLET PO SCH (08:53)
[2018-05-05] MEDS: *HR* Amiodarone 200 MG TABLET PO SCH (08:53)
[2018-05-05] MEDS: Gabapentin 400 MG CAPSULE PO SCH ×2 (08:54→20:58)
[2018-05-05] MEDS: *HR* Rivaroxaban 10 MG TABLET PO SCH (08:54)
[2018-05-05] MEDS: Aspirin 81 MG TAB.CHEW PO SCH (08:54)
[2018-05-05] MEDS: Tiotropium 18 MCG inhalation IH SCH (10:30)
--- NOTE | 2018-05-05 11:38 | Internal Med Progress Note ---
Hospitalist Progress Note - Encounter Date of Encounter: 05/05/18 Time of Encounter: 11:35 - Subjective Interval History: Patient seen and examined in the room, he reported his blood pressure was low last night and this morning. Revealed the BP was a patient and reassure the patient his BP was well controlled. Patient denies any chest pain, shortness of breath, abdominal pain, nausea/vomiting, or diarrhea. - Exam Vitals: Temp Pulse Resp BP Pulse Ox 97.7 F 61 16 123/72 94 05/05/18 06:49 05/05/18 06:49 05/05/18 10:32 05/05/18 06:49 05/05/18 10:32 Exam: PHYSICAL EXAMINATION: GENERAL APPEARANCE: The patient is alert, oriented and in no acute distress. HEENT: Head is normocephalic. The sinuses are nontender. Pupils are equal and reactive. The nares are patent. Oropharynx clear without lesions. NECK: Supple without lymphadenopathy. HEART: Regular rate and rhythm. LUNGS: No crackles or wheezes are heard. ABDOMEN: Soft, nontender, nondistended with good bowel sounds heard. Inguinal area is normal. EXTREMITIES: 1-2 + pitting edema on BLE. NEUROLOGICAL: Gross nonfocal. SKIN: Warm and dry without any rash. - Assessment and Plan (1) Falls Current Visit: Yes Status: Acute Assessment and Plan: Presented with a fall at home. Pt on long-term AC due to Afib. Head CT is negative for bleeding. Cervical XR no fracture. Left and right hip XR free of fracture. (2) Acute kidney injury Current Visit: Yes Status: Resolved Assessment and Plan: Hx of CHF and on Lasix and aldactone. He had several similar events in the past when he was overdiuresed. He is euvolemic on physical exam. We will hold Aldactone for now but continue lasix. Creatinine down from 2.1 to 1.7. Takes 40 mg lasix and 25 mg BID aldactone at home. Aldactone dose adjusted to 25 mg daily and monitor RFP in am. Comments: Stage 3 moderate (3) Chronic diastolic (congestive) heart failure Current Visit: No Status: Chronic Assessment and Plan: euvolemic, continue lasix and other home meds, Aldactone dose adjusted to 25 mg daily due to AG, renal function improved. (4) Hypertension Current Visit: No Status: Chronic Assessment and Plan: BP controlled. continue home meds. (5) Anxiety Current Visit: No Status: Chronic Assessment and Plan: continue home meds. (6) Depression Current Visit: No Status: Chronic Assessment and Plan: continue home meds. (7) Paroxysmal a-fib Current Visit: No Status: Chronic Assessment and Plan: rate controlled. continue Xarelto and metoprolol. (8) CAD (coronary atherosclerotic disease) Current Visit: No Status: Chronic Assessment and Plan: No chest pain, continue home meds. (9) COPD (chronic obstructive pulmonary disease) Current Visit: No Status: Chronic Assessment and Plan: No respiratory distress, continue home meds. (10) Diabetes mellitus Current Visit: No Status: Chronic Assessment and Plan: Hold oral agents for now. Continue insulin sliding scale. (11) HLD (hyperlipidemia) Current Visit: No Status: Chronic Assessment and Plan: Continue home meds. (12) Cerebrovascular accident Current Visit: No Status: Chronic Assessment and Plan: Continue home meds. (13) DVT prophylaxis Current Visit: Yes Status: Acute Assessment and Plan: continue home Xarelto. - Summary of Assessment and Plan Summary of Assessment and Plan: 68-year-old male with past medical history significant for diastolic congestive heart failure, diabetes, hypertension, COPD, and atrial fibrillation presented with a fall at home. He takes the lorazepam at home due to chronic atrial fibrillation. CT head is free of bleeding, cervical spine, left and right hip x-ray no acute fractures. Labs revealed elevated creatinine 2.1, patient was admitted as observation. She takes Lasix 40 mg daily and at 25 mg twice a day Aldactone at home. Aldactone dose has decreased to 25 mg once a day. His creatinine down to 1.7. Plan: Patient was planned to be discharged on last Monday, however, his and the his home health care team strongly recommended patient to be discharged to rehabilitation center due to frequent falls. Paperwork has been sent to the [place], patient was accepted, patient will be transferred to [place] on next Monday. - Time Spent with Patient Total time spent is 45 mins, greater than 50% in coordination of care (as documented) at patient's floor/unit and/or counseling patient. Plan of Care Discussed with: patient Internal Medicine: Result - Labs CBC & Chem 7: 05/03/18 03:22 05/04/18 09:04 Consult Discharge Plan - Plan Referrals: Edda Rm DO [Primary Care Provider] - 05/10/18 3:45 pm (Follow up as scheduled. ) (1) Falls Qualifiers: Encounter type: initial encounter Qualified Code(s): W19.XXXA - Unspecified fall, initial encounter (4) Hypertension Qualifiers: Hypertension type: essential hypertension Qualified Code(s): I10 - Essential (primary) hypertension (6) Depression Qualifiers: Depression Type: major depressive disorder Major depression recurrence: recurrent Active/Remission status: in full remission Qualified Code(s): F33.42 - Major depressive disorder, recurrent, in full remission (8) CAD (coronary atherosclerotic disease) Qualifiers: Coronary Disease-Associated Artery/Lesion type: [place] artery [place] vs. transplanted heart: [place] heart Associated angina: without angina Qualified Code(s): I25.10 - Atherosclerotic heart disease of [place] coronary artery without angina pectoris (9) COPD (chronic obstructive pulmonary disease) Qualifiers: COPD type: unspecified COPD Qualified Code(s): J44.9 - Chronic obstructive pulmonary disease, unspecified (10) Diabetes mellitus Qualifiers: Diabetes mellitus type: type 2 Diabetes mellitus ceramist insulin use: without ceramist use Diabetes mellitus complication status: with kidney complications Diabetes mellitus complication detail: with chronic kidney disease Chronic kidney disease stage: stage 3 (moderate) Qualified Code(s): E11.22 - Type 2 diabetes mellitus with diabetic chronic kidney disease; N18.3 - Chronic kidney disease, stage 3 (moderate) (11) HLD (hyperlipidemia) Qualifiers: Hyperlipidemia type: pure hypercholesterolemia Qualified Code(s): E78.00 - Pure hypercholesterolemia, unspecified; E78.0 - Pure hypercholesterolemia (12) Cerebrovascular accident Qualifiers: CVA mechanism: embolism Precerebral and cerebral artery: unspecified cerebral artery Qualified Code(s): I63.40 - Cerebral infarction due to embolism of unspecified cerebral artery
[2018-05-05] MEDS: Metoprolol XL (24 HR) Succ 25 MG TAB.ER.24H PO SCH (20:58)
[2018-05-05] MEDS: traZODone 50 MG TABLET PO SCH (20:59)
[2018-05-05] MEDS: Melatonin 3 MG TABLET PO SCH (21:00)
[2018-05-05] MEDS: *HR* LORazepam 0.5 MG TABLET PO PRN (21:14)
[2018-05-05] MEDS: *HR* OxyCODONE Immed Rel 5 MG TABLET PO PRN (22:03)
[2018-05-06 01:51] LABS: Calcium 8.9 mg/dL (8.6-10.3); Potassium 5.3 mEq/L (3.5-5.1)
[2018-05-06] MEDS: Albuterol 2.5 MG/3 ML NEBULIZER IH SCH ×4 (03:47→22:13)
[2018-05-06] MEDS: *HR* OxyCODONE Immed Rel 5 MG TABLET PO PRN ×2 (06:06→16:22)
[2018-05-06] MEDS: *HR* Amiodarone 200 MG TABLET PO SCH (08:29)
[2018-05-06] MEDS: Aspirin 81 MG TAB.CHEW PO SCH (08:29)
[2018-05-06] MEDS: Cholecalciferol (D-3) 1,000 UNIT TABLET PO SCH (08:29)
[2018-05-06] MEDS: Gabapentin 400 MG CAPSULE PO SCH ×2 (08:29→20:20)
[2018-05-06] MEDS: tiZANidine 4 MG TABLET PO SCH ×2 (08:29→20:21)
[2018-05-06] MEDS: *HR* Rivaroxaban 10 MG TABLET PO SCH (08:29)
[2018-05-06] MEDS: Furosemide 40 MG TABLET PO SCH (08:29)
[2018-05-06] MEDS: Spironolactone 25 MG TABLET PO SCH (08:29)
[2018-05-06] MEDS: Triamcinolone Acet 0.1% CRM 15 GM TUBE TP SCH ×2 (08:30→20:26)
[2018-05-06] MEDS: Finasteride 5 MG TABLET PO SCH (08:37)
[2018-05-06] MEDS: Tiotropium 18 MCG inhalation IH SCH (10:23)
[2018-05-06] MEDS ORDERED: 0.9 % Sodium Chloride 500 ML IVC ONE (10:53)
--- NOTE | 2018-05-06 13:04 | Internal Med Progress Note ---
Hospitalist Progress Note - Encounter Date of Encounter: 05/06/18 Time of Encounter: 13:03 - Subjective Interval History: Seen and examined at bedside. Patient is new to me, information obtained from chart review and patient report. Laying in bed, says he feels about the same. [facility] is [facility] and that we are waiting placement. - Exam Vitals: Temp Pulse Resp BP Pulse Ox 97.9 F 62 16 132/77 94 05/06/18 11:33 05/06/18 11:33 05/06/18 11:33 05/06/18 11:33 05/06/18 11:33 Exam: PHYSICAL EXAMINATION: GENERAL APPEARANCE: The patient is alert, oriented and in no acute distress. HEENT: Head is normocephalic. The sinuses are nontender. Pupils are equal and reactive. The nares are patent. Oropharynx clear without lesions. NECK: Supple without lymphadenopathy. HEART: Regular rate and rhythm. LUNGS: No crackles or wheezes are heard. ABDOMEN: Soft, nontender, nondistended with good bowel sounds heard. Inguinal area is normal. EXTREMITIES: 1-2 + pitting edema on BLE. NEUROLOGICAL: Gross nonfocal. SKIN: Warm and dry without any rash. - Assessment and Plan (1) Falls Current Visit: Yes Status: Acute Assessment and Plan: presented after a fall at home. Pt on long-term AC due to Afib; head CT is negative for bleeding. Cervical XR no fracture. Left and right hip XR negative for fracture. OT who is recommending acute inpatient rehabilitation. [facility] (2) Acute kidney injury Current Visit: Yes Status: Resolved Assessment and Plan: hx CKD and follows with Nephrology. Renal function worse than baseline on arrival and home diuretics were decreased. Renal function appeared to improve however creatinine worse today. Holding all home diuretics, give small IV bolus. Monitor repeat renal function. Nephrology consult Comments: Stage 3 moderate (3) Paroxysmal a-fib Current Visit: No Status: Chronic Assessment and Plan: per hx. Rate controlled. Continue Xarelto, BB (4) Cerebrovascular accident Current Visit: No Status: Chronic Assessment and Plan: per hx. Cont home medications (5) Hypertension Current Visit: No Status: Chronic Assessment and Plan: BP controlled. continue home meds. (6) Anxiety Current Visit: No Status: Chronic Assessment and Plan: continue home meds. (7) Depression Current Visit: No Status: Chronic Assessment and Plan: continue home meds. (8) CAD (coronary atherosclerotic disease) Current Visit: No Status: Chronic Assessment and Plan: per hx. Denied chest pain. Cont home cardiac medications (9) COPD (chronic obstructive pulmonary disease) Current Visit: No Status: Chronic Assessment and Plan: per hx. No evidence of exacerbation. Continue home meds. (10) Diabetes mellitus Current Visit: No Status: Chronic Assessment and Plan: per hx. Hold oral agents for now. Blood sugars controlled. Cont SSI (11) HLD (hyperlipidemia) Current Visit: No Status: Chronic Assessment and Plan: per hx. Cont home statin (12) Chronic diastolic (congestive) heart failure Current Visit: No Status: Chronic Assessment and Plan: per hx. Appears compensated. Holding home diuretics at this time with worsening renal function. Monitor fluid status with IV fluids. (13) DVT prophylaxis Current Visit: Yes Status: Acute Assessment and Plan: Xarelto. - Time Spent with Patient Total time spent is greater than 50% in coordination of care (as documented) at patient's floor/unit and/or counseling patient: Internal Medicine: Result - Labs CBC & Chem 7: 05/03/18 03:22 05/06/18 01:35 EST Labs: BMP 05/06/18 01:35 EST Sodium 135 L Potassium 5.3 H Chloride 102 Carbon Dioxide 29 BUN 27 H Creatinine 1.93 H Glucose 100 Calcium 8.9 Cardiac Enzymes 05/05/18 Range/Units 17:11 Troponin I < 0.03 (< 0.04) ng/mL Consult Discharge Plan - Plan Referrals: Edda Rm DO [Primary Care Provider] - 05/10/18 3:45 pm (Follow up as scheduled. ) (1) Falls Qualifiers: Encounter type: initial encounter Qualified Code(s): W19.XXXA - Unspecified fall, initial encounter (4) Cerebrovascular accident Qualifiers: CVA mechanism: embolism Precerebral and cerebral artery: unspecified cerebral artery Qualified Code(s): I63.40 - Cerebral infarction due to embolism of unspecified cerebral artery (5) Hypertension Qualifiers: Hypertension type: essential hypertension Qualified Code(s): I10 - Essential (primary) hypertension (7) Depression Qualifiers: Depression Type: major depressive disorder Major depression recurrence: recurrent Active/Remission status: in full remission Qualified Code(s): F33.42 - Major depressive disorder, recurrent, in full remission (8) CAD (coronary atherosclerotic disease) Qualifiers: Coronary Disease-Associated Artery/Lesion type: [place] artery [place] vs. transplanted heart: [place] heart Associated angina: without angina Qualified Code(s): I25.10 - Atherosclerotic heart disease of [place] coronary artery without angina pectoris (9) COPD (chronic obstructive pulmonary disease) Qualifiers: COPD type: unspecified COPD Qualified Code(s): J44.9 - Chronic obstructive pulmonary disease, unspecified (10) Diabetes mellitus Qualifiers: Diabetes mellitus type: type 2 Diabetes mellitus group home insulin use: without oil operator use Diabetes mellitus complication status: with kidney complications Diabetes mellitus complication detail: with chronic kidney disease Chronic kidney disease stage: stage 3 (moderate) Qualified Code(s): E11.22 - Type 2 diabetes mellitus with diabetic chronic kidney disease; N18.3 - Chronic kidney disease, stage 3 (moderate) (11) HLD (hyperlipidemia) Qualifiers: Hyperlipidemia type: pure hypercholesterolemia Qualified Code(s): E78.00 - Pure hypercholesterolemia, unspecified; E78.0 - Pure hypercholesterolemia
[2018-05-06 14:15] LABS: Calcium 8.8 mg/dL (8.6-10.3); Potassium 4.5 mEq/L (3.5-5.1)
[2018-05-06] MEDS: traZODone 50 MG TABLET PO SCH (20:21)
[2018-05-06] MEDS: Melatonin 3 MG TABLET PO SCH (20:21)
[2018-05-06] MEDS: Metoprolol XL (24 HR) Succ 25 MG TAB.ER.24H PO SCH (20:28)
[2018-05-06] MEDS: *HR* LORazepam 0.5 MG TABLET PO PRN (20:31)
[2018-05-07] MEDS: Albuterol 2.5 MG/3 ML NEBULIZER IH SCH ×4 (03:39→21:54)
[2018-05-07 04:31] LABS: Hematocrit 36.4 % (37.5-50.1); Hemoglobin 11.5 g/dL (12.9-16.9); Mean Corpuscular HGB Conc 31.6 g/dL (31.6-35.5); Mean Corpuscular Hemoglobin 27.7 pg (28.0-33.3); Mean Corpuscular Volume 87.7 fL (83.0-100.0); Mean Platelet Volume 9.9 fL (9.4-12.4); Platelet Count 236 K/mcL (140-400); Red Blood Count 4.15 M/mcL (4.19-5.50); Red Cell Distribution Width 15.3 % (11.5-14.5)
[2018-05-07 04:50] LABS: Calcium 8.8 mg/dL (8.6-10.3); Potassium 4.2 mEq/L (3.5-5.1)
[2018-05-07] MEDS: Finasteride 5 MG TABLET PO SCH (09:49)
[2018-05-07] MEDS: tiZANidine 4 MG TABLET PO SCH ×2 (09:50→21:28)
[2018-05-07] MEDS: Gabapentin 400 MG CAPSULE PO SCH ×2 (09:50→21:27)
[2018-05-07] MEDS: *HR* Amiodarone 200 MG TABLET PO SCH (09:50)
[2018-05-07] MEDS: Aspirin 81 MG TAB.CHEW PO SCH (09:50)
[2018-05-07] MEDS: Cholecalciferol (D-3) 1,000 UNIT TABLET PO SCH (09:50)
[2018-05-07] MEDS: Furosemide 40 MG TABLET PO SCH (09:50)
[2018-05-07] MEDS: Triamcinolone Acet 0.1% CRM 15 GM TUBE TP SCH ×2 (09:51→22:00)
[2018-05-07] MEDS: Tiotropium 18 MCG inhalation IH SCH (10:06)
--- NOTE | 2018-05-07 10:25 | Internal Med Progress Note ---
Hospitalist Progress Note - Encounter Date of Encounter: 05/07/18 Time of Encounter: 17:00 - Subjective Interval History: Seen and examined at bedside. No acute changes to report. He actually has no complaints. He specifically denied CP, no SOB, no ABD pain, N/V/D - Exam Vitals: Temp Pulse Resp BP Pulse Ox 97.8 F 61 16 98/64 94 05/07/18 06:54 05/07/18 06:54 05/07/18 06:54 05/07/18 06:54 05/07/18 06:54 Exam: PHYSICAL EXAMINATION: GENERAL APPEARANCE: The patient is alert, oriented and in no acute distress. HEENT: Head is normocephalic. The sinuses are nontender. Pupils are equal and reactive. The nares are patent. Oropharynx clear without lesions. NECK: Supple without lymphadenopathy. HEART: Regular rate and rhythm. LUNGS: No crackles or wheezes are heard. ABDOMEN: Soft, nontender, nondistended with good bowel sounds heard. Inguinal area is normal. EXTREMITIES: 1-2 + pitting edema on BLE. NEUROLOGICAL: Gross nonfocal. SKIN: Warm and dry without any rash. - Assessment and Plan (1) Falls Current Visit: Yes Status: Acute Assessment and Plan: presented after a fall at home. Pt on long-term AC due to Afib; head CT is negat [place] for bleeding. Cervical XR no fracture. Left and right hip XR negative for fracture. Evaluated by PT/OT who recommended acute inpatient rehabilitation. [facility] (2) Acute kidney injury Current Visit: Yes Status: Resolved Assessment and Plan: hx CKD and follows with Nephrology. Renal function worse than baseline on arrival and home diuretics were decreased. Renal function appeared to improve however creatinine worsened. Renal function improved to baseline with holding all home diuretics and small IV bolus. Continue holding home diuretics until evaluated by nephrology. Monitor repeat renal function. Nephrology consult pending Comments: Stage 3 moderate (3) Paroxysmal a-fib Current Visit: No Status: Chronic Assessment and Plan: per hx. Rate controlled. Continue Xarelto, BB (4) Cerebrovascular accident Current Visit: No Status: Chronic Assessment and Plan: per hx. Cont home medications (5) Hypertension Current Visit: No Status: Chronic Assessment and Plan: BP soft/borderline at times. Cont home BB. Monitor BP and titrate PRN (6) Anxiety Current Visit: No Status: Chronic Assessment and Plan: continue home meds. (7) Depression Current Visit: No Status: Chronic Assessment and Plan: continue home meds. (8) CAD (coronary atherosclerotic disease) Current Visit: No Status: Chronic Assessment and Plan: per hx. Denied chest pain. Cont home cardiac medications (9) COPD (chronic obstructive pulmonary disease) Current Visit: No Status: Chronic Assessment and Plan: per hx. No evidence of exacerbation. Continue home meds. (10) Diabetes mellitus Current Visit: No Status: Chronic Assessment and Plan: per hx. Hold oral agents for now. Blood sugars controlled. Cont SSI (11) HLD (hyperlipidemia) Current Visit: No Status: Chronic Assessment and Plan: per hx. Cont home statin (12) Chronic diastolic (congestive) heart failure Current Visit: No Status: Chronic Assessment and Plan: per hx. Appears compensated. Holding home diuretics at this time with worsening renal function. Monitor fluid status with IV fluids. (13) DVT prophylaxis Current Visit: Yes Status: Acute Assessment and Plan: Xarelto. - Time Spent with Patient Total time spent is greater than 50% in coordination of care (as documented) at patient's floor/unit and/or counseling patient: Internal Medicine: Result - Labs CBC & Chem 7: 05/07/18 03:55 05/07/18 03:55 Labs: Short CBC 05/07/18 Range/Units 03:55 WBC 5.8 (4.3-11.1) K/mcL Hgb 11.5 L (12.9-16.9) g/dL Hct 36.4 L (37.5-50.1) % Plt Count 236 (140-400) K/mcL BMP 05/06/18 05/07/18 13:41 03:55 Sodium 137 137 Potassium 4.5 4.2 Chloride 101 99 Carbon Dioxide 28 32 H BUN 26 H 22 Creatinine 1.61 H 1.44 H Glucose 126 H 104 Calcium 8.8 8.8 Consult Discharge Plan - Plan Referrals: Edda Rm DO [Primary Care Provider] - 05/10/18 3:45 pm (Follow up as scheduled. ) (1) Falls Qualifiers: Encounter type: initial encounter Qualified Code(s): W19.XXXA - Unspecified f all, initial encounter (4) Cerebrovascular accident Qualifiers: CVA mechanism: embolism Precerebral and cerebral artery: unspecified cerebral artery Qualified Code(s): I63.40 - Cerebral infarction due to embolism of u nspecified cerebral artery (5) Hypertension Qualifiers: Hypertension type: essential hypertension Qualified Code(s): I10 - Essential (primary) hypertension (7) Depression Qualifiers: Depression Type: major depressive disorder Major depression recurrence: recurrent Active/Remission status: in full remission Qualified Code(s): F33.42 - Major depressive disorder, recurrent, in full remission (8) CAD (coronary atherosclerotic disease) Qualifiers: Coronary Disease-Associated Artery/Lesion type: [place] artery [place] vs. transplanted heart: [place] heart Associated angina: without angina Qualified Code(s): I25.10 - Atherosclerotic heart disease of [place] coronary artery without angina pectoris (9) COPD (chronic obstructive pulmonary disease) Qualifiers: COPD type: unspecified COPD Qualified Code(s): J44.9 - Chronic obstructive pulmonary disease, unspecified (10) Diabetes mellitus Qualifiers: Diabetes mellitus type: type 2 Diabetes mellitus intermediate insulin use: without intermediate use Diabetes mellitus complication status: with kidney complications Diabetes mellitus complication detail: with chronic kidney disease Chronic kidney disease stage: stage 3 (moderate) Qualified Code(s): E11.22 - Type 2 diabetes mellitus with diabetic chronic kidney disease; N18.3 - Chronic kidney disease, stage 3 (moderate) (11) HLD (hyperlipidemia) Qualifiers: Hyperlipidemia type: pure hypercholesterolemia Qualified Code(s): E78.00 - Pure hypercholesterolemia, unspecified; E78.0 - Pure hypercholesterolemia
--- NOTE | 2018-05-07 14:53 | Electrocardiograph Report ---
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
--- NOTE | 2018-05-07 14:53 | Electrocardiograph Report ---
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
[2018-05-07] MEDS ORDERED: *HR* Rivaroxaban 15 MG TABLET PO SCH (17:00)
[2018-05-07] MEDS: *HR* Rivaroxaban 10 MG TABLET PO SCH (17:32)
--- NOTE | 2018-05-07 17:38 | Nephrology Consult Note ---
Date of Encounter: 05/07/18 Time of Encounter: 11:30 Assessment and Plan (1) Acute kidney injury Current Visit: Yes Status: Resolved SCr almost at baseline (GFR typically around 50-60) Would continue diuretic regimen at home of lasix 40mg daily Aldactone not needed for now given isolated hyperkalemia at 5.3, resolved Continue fluid restriction Continue cardiac diet with low sodium Avoid nephrotoxins if possible (2) Fluid overload Current Visit: No Status: Acute Improved, ok to give lasix 40mg po daily for now UOp has been good at 2350cc in the past 24hrs Qualifiers: Hypervolemia type: other Qualified Code(s): E87.79 - Other fluid overload History of Present Illness - Reason for Consult Consult date: 05/07/18 Acute Kidney Injury Requesting physician: Genie Biggs - History of Present Illness 68 y o male with PMH of DM, HTN, Afib, CHF admitted with altered mental status and s/p fall. He has had recurrent hospitalizations for volume overload and also recurrent AKIs as a result of diuresis. Scr noted elevated from baseline at 2.01, GFR 34 on presentation with diuretics decreased by primary team. He also received boluses of saline. SCr now improved at 1.44, GFR 49 which is close to baseline. Renal consulted today for help with management of his diuretics. Pt seen and examined feeling much better with less LE edema than usual but he is concerned about the diuretics regimen on discharge however. Past Med Surg Social Fam HX - Past Medical History Medical history: arthritis, atrial fibrillation, CHF, COPD, coronary artery disease, CVA, diabetes, GERD, hyperlipidemia, hypertension, pulmonary embolus, renal disease Additional medical history: Pacemaker, emphysema Psychiatric history: anxiety, bipolar, depression, panic disorder - Past Surgical History Surgical History: cholecystectomy, herniorrhaphy, knee replacement, orthopedic, other, pacemaker/AICD Additional surgical history: Right knee replacement. Cardiac Ablasion. left arm - Social History Smoking Status: Former smoker Smokeless Tobacco Status: No Alcohol use: none Drug use: none - Family History Father Adopted: No Family Member Ethnicity: Non- Living Status: Hx Family Cardiac Disorders: No Hx Family Respiratory Disorders: No Hx Family Cancer: Yes Hx Family GI Disorders: No Hx Family Endocrine Disorder: No Hx Family Neuromuscular Disorders: No Hx Family Neurologic Disorders: No Hx Family HEENT Disorders: No Hx Family Autoimmune Disorders: No Brother Family Member Ethnicity: Non- Living Status: Still Living Sister Family Member Ethnicity: Non- Living Status: Still Living Mother Adopted: No Family Member Ethnicity: Non- Twin of Family Member: Yes Living Status: Hx Family Cardiac Disorders: Yes Hx Family Respiratory Disorders: No Hx Family Cancer: No Hx Family GI Disorders: No Hx Family Endocrine Disorder: No Hx Family Neuromuscular Disorders: No Hx Family Neurologic Disorders: No Hx Family HEENT Disorders: No Hx Family Autoimmune Disorders: No Medications and Allergies Amiodarone [Cordarone] 200 mg PO DAILY 04/04/18 [History] Aspirin 81 mg PO DAILY 04/04/18 [History] Atorvastatin [Lipitor] 40 mg PO HS 04/04/18 [History] Cholecalciferol (Vitamin D3) [Vitamin D3] 2,000 unit PO DAILY 04/04/18 [History] DULoxetine [Cymbalta] 30 mg PO DAILY 04/04/18 [History] Finasteride [Proscar] 5 mg PO DAILY 04/04/18 [History] Gabapentin [Neurontin] 400 mg PO BID 04/04/18 [History] Lubiprostone [Amitiza] 16 mcg PO BID@0800,1700 04/04/18 [History] Melatonin [Melatin] 9 mg PO HS 04/04/18 [History] Memantine HCl 10 mg PO BID 04/04/18 [History] Metoprolol XL (24 HR) Succ [Toprol Xl] 12.5 mg PO HS 04/04/18 [History] Pantoprazole Sodium [Protonix] 40 mg PO DAILY 04/04/18 [History] Rivaroxaban [Xarelto] 20 mg PO DAILY 04/04/18 [History] Sennosides/Docusate Sodium [Colace 2-in-1 Tablet] 1 each PO Q12H PRN 04/04/18 [History] Simethicone [Bicarsim] 80 mg PO Q8H PRN 04/04/18 [History] Tamsulosin HCl [Flomax] 0.4 mg PO BID 04/04/18 [History] Tizanidine HCl [Zanaflex] 2 mg PO BID 04/04/18 [History] Trazodone HCl 200 mg PO HS 04/04/18 [History] Losartan [Cozaar] 25 mg PO DAILY 04/24/18 [History] Tiotropium Br/Olodaterol HCl [Stiolto Respimat Inhal [place]] 2 puff IH DAILY 04/24/18 [History] Insulin ASPART [NovoLOG] 0 unit SQ TIDWM PRN 04/25/18 [History] Furosemide [Lasix] 40 mg PO DAILY #0 04/28/18 [Rx] Potassium Chloride [K-Tab ER] 20 meq PO BID #0 04/28/18 [Rx] Spironolactone [Aldactone] 25 mg PO DAILY tablet 05/04/18 [Rx] Allergy/AdvReac Type Severity Reaction Status Date / Time IVP DYE Allergy Severe Anaphylaxis Uncoded 04/03/18 22:56 Exam - Vital Signs Vital signs: Initial Vital Signs Temp Pulse Resp BP Pulse Ox 97.8 F 70 18 101/63 98 05/02/18 12:06 05/02/18 12:06 05/02/18 12:06 05/02/18 12:06 05/02/18 12:06 Vital Signs - Last 8 Hours Temp Pulse Resp BP Pulse Ox 05/07/18 15:18 18 93 05/07/18 10:59 98.1 F 73 16 116/70 94 05/07/18 10:06 18 92 Intake and Output 05/07/18 05/07/18 05/07/18 07:59 15:59 23:59 Intake Total 900 / 900 360 / 360 Output Total 825 / 825 450 / 450 Balance 75 / 75 -90 / -90 Intake: Oral 900 / 900 360 / 360 Output: Urine 825 / 825 450 / 450 Other: Meal Breakfast Percent of Meal Consumed 100% Weight 128.1 kg Blood Glucose* 107 137 152 Patient Weight 05/07/18 23:59 Weight 128.1 kg Results - Lab Results 05/08/18 05:54 05/08/18 05:54 Most recent lab results Calcium 8.8 mg/dL (8.6-10.3) 05/07/18 03:55 Consult Discharge Plan - Plan Referrals: Edda Rm DO [Primary Care Provider] - 05/10/18 3:45 pm (Follow up as scheduled. )
[2018-05-07] MEDS: traZODone 50 MG TABLET PO SCH (21:26)
[2018-05-07] MEDS: *HR* LORazepam 0.5 MG TABLET PO PRN (21:27)
[2018-05-07] MEDS: Melatonin 3 MG TABLET PO SCH (21:27)
[2018-05-07] MEDS: Metoprolol XL (24 HR) Succ 25 MG TAB.ER.24H PO SCH (21:28)
[2018-05-07] MEDS: *HR* OxyCODONE Immed Rel 5 MG TABLET PO PRN (23:10)
[2018-05-08] MEDS: Albuterol 2.5 MG/3 ML NEBULIZER IH SCH ×4 (03:49→22:00)
[2018-05-08 06:24] LABS: Hematocrit 38.4 % (37.5-50.1); Hemoglobin 11.9 g/dL (12.9-16.9); Mean Corpuscular Volume 87.3 fL (83.0-100.0); Mean Platelet Volume 9.5 fL (9.4-12.4); Platelet Count 234 K/mcL (140-400); Red Cell Distribution Width 14.9 % (11.5-14.5)
[2018-05-08 06:48] LABS: BUN/Creatinine Ratio 19 (6-26); Blood Urea Nitrogen 27 mg/dL (8-23); Calcium 9.1 mg/dL (8.6-10.3); Carbon Dioxide 29 mEq/L (23-29); Chloride 100 mEq/L (98-107); Glucose 105 mg/dL (70-105); Osmolality,Calculated 289 (280-300); Potassium 3.9 mEq/L (3.5-5.1); Sodium 137 mEq/L (136-145); eGFR For Non-African Americans 50 (> 60)
--- NOTE | 2018-05-08 09:50 | Internal Med Progress Note ---
Hospitalist Progress Note - Encounter Date of Encounter: 05/08/18 Time of Encounter: 10:30 - Subjective Interval History: No acute events. Patient does have complaint of lower extremity edema that is slightly above baseline. He denies CP, SOB, n/v, fevers/chills. - Exam Vitals: Temp Pulse Resp BP Pulse Ox 98.0 F 60 18 93/59 96 05/08/18 07:08 05/08/18 07:08 05/08/18 07:08 05/08/18 07:08 05/08/18 07:08 Exam: PHYSICAL EXAMINATION: GENERAL APPEARANCE: NAD HEENT: Head is normocephalic. The sinuses are nontender. Pupils are equal and reactive. The nares are patent. Oropharynx clear without lesions. HEART: Regular rate and rhythm. LUNGS: No crackles or wheezes are heard. ABDOMEN: Soft, nontender, nondistended with good bowel sounds heard. Inguinal area is normal. EXTREMITIES: 2+ bipedal pitting edema SKIN: Warm and dry without any rash. - Assessment and Plan (1) Falls Current Visit: Yes Status: Acute Assessment and Plan: presented after a fall at home. Pt on long-term AC due to Afib; head CT is negative for bleeding. Cervical XR no fracture. Left and right hip XR negative for fracture. Evaluated by PT/OT who recommended acute inpatient rehabilitation. Awaiting placement to the [facility] beds full. (2) Cerebrovascular accident Current Visit: No Status: Chronic Assessment and Plan: per hx. Cont home medications (3) Hypertension Current Visit: No Status: Chronic Assessment and Plan: BP soft/borderline at times. Cont home BB. Monitor BP and titrate PRN (4) Anxiety Current Visit: No Status: Chronic Assessment and Plan: continue home meds. (5) Depression Current Visit: No Status: Chronic Assessment and Plan: continue home meds. (6) Paroxysmal a-fib Current Visit: No Status: Chronic Assessment and Plan: per hx. Rate controlled. Continue Xarelto, BB (7) CAD (coronary atherosclerotic disease) Current Visit: No Status: Chronic Assessment and Plan: per hx. Denied chest pain. Cont home cardiac medications (8) Acute kidney injury Current Visit: Yes Status: Resolved Assessment and Plan: hx CKD and follows with Nephrology. Renal function worse than baseline on arrival and home diuretics were decreased. Renal function appeared to improve however creatinine worsened. Renal function improved to baseline with holding all home diuretics and small IV bolus. Patient now complains of slightly worsening edema, will give extra dose of IV Lasix right now. BP is still low so aldactone needs held today again. Comments: Stage 3 moderate (9) COPD (chronic obstructive pulmonary disease) Current Visit: No Status: Chronic Assessment and Plan: per hx. No evidence of exacerbation. Continue home meds. (10) Diabetes mellitus Current Visit: No Status: Chronic Assessment and Plan: per hx. Hold oral agents for now. Blood sugars controlled. Cont SSI (11) DVT prophylaxis Current Visit: Yes Status: Acute Assessment and Plan: Xarelto. (12) HLD (hyperlipidemia) Current Visit: No Status: Chronic Assessment and Plan: per hx. Cont home statin (13) Chronic diastolic (congestive) heart failure Current Visit: No Status: Chronic Assessment and Plan: per hx. Appears compensated. Diuretics needed held initially but now he does have fluid accumulation so Lasix will be given extra dose. BP too low for Aldactone currently. - Summary of Assessment and Plan Summary of Assessment and Plan: 68-year-old male with past medical history significant for diastolic congestive heart failure, diabetes, hypertension, COPD, and atrial fibrillation presented with a fall at home. He takes the lorazepam at home due to chronic atrial fibrillation. CT head is free of bleeding, cervical spine, left and right hip x-ray no acute fractures. Labs revealed elevated creatinine 2.1, patient was admitted as observation. She takes Lasix 40 mg daily and at 25 mg twice a day Aldactone at home. Aldactone dose has decreased to 25 mg once a day. His creatinine down to 1.7. Plan: Patient was planned to be discharged on last Monday, however, his and the his home health care team strongly recommended patient to be discharged to rehabilitation center due to frequent falls. [facility], patient will be transferred to [place] on next Monday. - Time Spent with Patient Total time spent is greater than 50% in coordination of care (as documented) at patient's floor/unit and/or counseling patient: Internal Medicine: Result - Labs CBC & Chem 7: 05/08/18 05:54 05/08/18 05:54 Labs: Short CBC 05/08/18 Range/Units 05:54 WBC 6.4 (4.3-11.1) K/mcL Hgb 11.9 L (12.9-16.9) g/dL Hct 38.4 (37.5-50.1) % Plt Count 234 (140-400) K/mcL [facility] 05/08/18 05:54 Sodium 137 Potassium 3.9 Chloride 100 Carbon Dioxide 29 BUN 27 H Creatinine 1.42 H Glucose 105 Calcium 9.1 Consult Discharge Plan - Plan Referrals: Edda Rm DO [Primary Care Provider] - 05/10/18 3:45 pm (Follow up as scheduled. ) (1) Falls Qualifiers: Encounter type: initial encounter Qualified Code(s): W19.XXXA - Unspecified fall, initial encounter (2) Cerebrovascular accident Qualifiers: CVA mechanism: embolism Precerebral and cerebral artery: unspecified cerebral artery Qualified Code(s): I63.40 - Cerebral infarction due to embolism of unspecified cerebral artery (3) Hypertension Qualifiers: Hypertension type: essential hypertension Qualified Code(s): I10 - Essential (primary) hypertension (5) Depression Qualifiers: Depression Type: major depressive disorder Major depression recurrence: recurrent Active/Remission status: in full remission Qualified Code(s): F33.42 - Major depressive disorder, recurrent, in full remission (7) CAD (coronary atherosclerotic disease) Qualifiers: Coronary Disease-Associated Artery/Lesion type: [place] artery [place] vs. 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
[2018-05-08] MEDS: tiZANidine 4 MG TABLET PO SCH ×2 (10:19→21:43)
[2018-05-08] MEDS: *HR* Amiodarone 200 MG TABLET PO SCH (10:21)
[2018-05-08] MEDS: Finasteride 5 MG TABLET PO SCH (10:21)
[2018-05-08] MEDS: Furosemide 40 MG TABLET PO SCH (10:21)
[2018-05-08] MEDS: *HR* OxyCODONE Immed Rel 5 MG TABLET PO PRN ×2 (10:22→21:40)
[2018-05-08] MEDS: Gabapentin 400 MG CAPSULE PO SCH ×2 (10:22→21:42)
[2018-05-08] MEDS: Aspirin 81 MG TAB.CHEW PO SCH (10:23)
[2018-05-08] MEDS: Cholecalciferol (D-3) 1,000 UNIT TABLET PO SCH (10:23)
[2018-05-08] MEDS: Tiotropium 18 MCG inhalation IH SCH (11:07)
[2018-05-08] MEDS ORDERED: Furosemide 20 MG/2 ML VIAL IVP ONE (11:11)
[2018-05-08] MEDS: Triamcinolone Acet 0.1% CRM 15 GM TUBE TP SCH ×2 (11:23→21:49)
--- NOTE | 2018-05-08 11:44 | Nephrology Progress Note ---
Date of Encounter: 05/08/18 Time of Encounter: 12:00 - Assessment and Plan (1) Acute kidney injury Current Visit: Yes Status: Resolved SCr improving at 1.42, GFR 50 which is about baseline UOP remains quite good at 1275cc in the past 24hrs Continue current diuretic regimen Continue to avoid nephrotoxins if possible Followup on discharge in 4 weeks. will sign off, please reconsult prn (2) Fluid overload Current Visit: No Status: Acute Improved, continue lasix 40mg po daily which is his home dose Can resume aldactone before discharge as well Continue low sodium diet Continue strict I/Os Qualifiers: Hypervolemia type: other Qualified Code(s): E87.79 - Other fluid overload Subjective Interval history: Pt seen and examined doing well but worried about gaining fluid weight. LE edema still improved from pervious Objective - Vital Signs Vital signs: Vital Signs Temp Pulse Resp BP Pulse Ox 05/08/18 11:43 98/60 05/08/18 11:08 16 97 05/08/18 10:20 98.1 F 60 14 92/58 95 05/08/18 07:08 98.0 F 60 18 93/59 96 05/08/18 01:15 98.3 F 72 16 134/80 90 05/07/18 21:54 17 90 05/07/18 20:08 98.4 F 75 16 96/62 90 05/07/18 15:18 18 93 Intake and Output 05/07/18 05/08/18 05/08/18 23:59 07:59 15:59 Intake Total 360 / 360 Output Total 750 / 750 0 / 0 Balance -750 / -750 360 / 360 Intake: Oral 360 / 360 Output: Urine 750 / 750 0 / 0 Other: Meal Breakfast Percent of Meal Consumed 100% Weight 128.3 kg Blood Glucose* 133 100 131 Patient Weight 05/08/18 23:59 Weight 128.3 kg - General Appearance General appearance: Present: well-developed, well-nourished EENT: Present: ATNC, mucous membranes moist Neck: Present: no JVD, supple Respiratory: Present: clear Cardiology: Present: edema (trace LE edema bilat), normal S1, normal S2 Gastrointestinal: Present: no tenderness, no guarding, obese Integumentary: Present: warm and dry Neurologic: Present: no focal deficit Musculoskeletal: Present: no deformities Psychiatric: Present: mood/affect appropriate, cooperative - Lab 05/10/18 04:17 05/10/18 04:17 Most recent lab results Calcium 9.1 mg/dL (8.6-10.3) 05/08/18 05:54 Consult Discharge Plan - Plan Referrals: Edda Rm DO [Primary Care Provider] - 05/10/18 3:45 pm (Follow up as scheduled. ) Prescriptions: OxyCODONE Immed Rel [Roxicodone 10 MG] 10 mg PO Q8H PRN 3 Days #9 tab PRN Reason: Pain
[2018-05-08] MEDS: *HR* Rivaroxaban 10 MG TABLET PO SCH (16:23)
[2018-05-08] MEDS: Metoprolol XL (24 HR) Succ 25 MG TAB.ER.24H PO SCH (21:30)
[2018-05-08] MEDS: traZODone 50 MG TABLET PO SCH (21:41)
[2018-05-08] MEDS: Melatonin 3 MG TABLET PO SCH (21:42)
[2018-05-08] MEDS: *HR* LORazepam 0.5 MG TABLET PO PRN (21:44)
[2018-05-09] MEDS: Albuterol 2.5 MG/3 ML NEBULIZER IH SCH ×4 (03:54→22:29)
[2018-05-09 04:14] LABS: Hematocrit 36.6 % (37.5-50.1); Hemoglobin 11.8 g/dL (12.9-16.9); Mean Corpuscular HGB Conc 32.2 g/dL (31.6-35.5); Mean Corpuscular Hemoglobin 27.8 pg (28.0-33.3); Mean Corpuscular Volume 86.3 fL (83.0-100.0); Mean Platelet Volume 9.9 fL (9.4-12.4); Platelet Count 223 K/mcL (140-400); Red Blood Count 4.24 M/mcL (4.19-5.50); Red Cell Distribution Width 14.6 % (11.5-14.5)
[2018-05-09 04:35] LABS: BUN/Creatinine Ratio 23 (6-26); Blood Urea Nitrogen 29 mg/dL (8-23); Calcium 8.6 mg/dL (8.6-10.3); Carbon Dioxide 30 mEq/L (23-29); Chloride 99 mEq/L (98-107); Glucose 102 mg/dL (70-105); Osmolality,Calculated 290 (280-300); Sodium 137 mEq/L (136-145); eGFR For Non-African Americans 56 (> 60)
[2018-05-09] MEDS: Furosemide 40 MG TABLET PO SCH (09:26)
[2018-05-09] MEDS: tiZANidine 4 MG TABLET PO SCH (09:26)
[2018-05-09] MEDS: Finasteride 5 MG TABLET PO SCH (09:26)
[2018-05-09] MEDS: Aspirin 81 MG TAB.CHEW PO SCH (09:26)
[2018-05-09] MEDS: Gabapentin 400 MG CAPSULE PO SCH ×2 (09:27→22:04)
[2018-05-09] MEDS: Cholecalciferol (D-3) 1,000 UNIT TABLET PO SCH (09:27)
[2018-05-09] MEDS: *HR* Amiodarone 200 MG TABLET PO SCH (09:27)
[2018-05-09] MEDS: Triamcinolone Acet 0.1% CRM 15 GM TUBE TP SCH ×2 (09:28→22:13)
[2018-05-09] MEDS ORDERED: *HR* OxyCODONE Immed Rel 5 MG TABLET PO PRN (10:07)
[2018-05-09] MEDS ORDERED: Furosemide 20 MG/2 ML VIAL IVP ONE (10:08)
[2018-05-09] MEDS: Tiotropium 18 MCG inhalation IH SCH (10:12)
--- NOTE | 2018-05-09 15:54 | Discharge Summary ---
- NOTES TO OUTPATIENT PROVIDER Notes to Outpatient Provider: Monitor fluid status. Patient needs fluid restriction 1.5 L diet. Orders not resulted at time of discharge: Pending orders 05/10/18 04:00 BMP [Basic Metabolic Panel] AM 0400 Complete Blood Count w/o Diff [HEME] AM 0400 05/11/18 04:00 BMP [Basic Metabolic Panel] AM 0400 Complete Blood Count w/o Diff [HEME] AM 0400 Date of Encounter: 05/09/18 Time of Encounter: 15:50 - Discharge Diagnosis (1) Falls Priority: Primary Status: Acute Qualifiers: Encounter type: initial encounter Qualified Code(s): W19.XXXA - Unspecified fall, initial encounter (2) Cerebrovascular accident Priority: Secondary Status: Chronic Qualifiers: CVA mechanism: embolism Precerebral and cerebral artery: unspecified cerebral artery Qualified Code(s): I63.40 - Cerebral infarction due to embolism of unspecified cerebral artery (3) Hypertension Priority: Secondary Status: Chronic Qualifiers: Hypertension type: essential hypertension Qualified Code(s): I10 - Essential (primary) hypertension (4) Anxiety Priority: Secondary Status: Chronic (5) Depression Priority: Secondary Status: Chronic Qualifiers: Depression Type: major depressive disorder Major depression recurrence: recurrent Active/Remission status: in full remission Qualified Code(s): F33.42 - Major depressive disorder, recurrent, in full remission (6) Paroxysmal a-fib Priority: Secondary Status: Chronic (7) CAD (coronary atherosclerotic disease) Priority: Secondary Status: Chronic Qualifiers: Coronary Disease-Associated Artery/Lesion type: [place] artery [place] vs. transplanted heart: [place] heart Associated angina: without angina Qualified Code(s): I25.10 - Atherosclerotic heart disease of [place] [facility] p[facility] (8) Acute kidney injury Priority: Secondary Status: Resolved (9) COPD (chronic obstructive pulmonary disease) Priority: Secondary Status: Chronic Qualifiers: COPD type: unspecified COPD Qualified Code(s): J44.9 - Chronic obstructive pulmonary disease, unspecified (10) Diabetes mellitus Priority: Secondary Status: Chronic Qualifiers: Diabetes mellitus type: type 2 Diabetes mellitus usp insulin use: without usp use Diabetes mellitus complication status: with kidney complications Diabetes mellitus complication detail: with chronic kidney disease Chronic kidney disease stage: stage 3 (moderate) Qualified Code(s): E11.22 - Type 2 diabetes mellitus with diabetic chronic kidney disease; N18.3 - Chronic kidney disease, stage 3 (moderate) (11) DVT prophylaxis Priority: Secondary Status: Acute (12) HLD (hyperlipidemia) Priority: Secondary Status: Chronic Qualifiers: Hyperlipidemia type: pure hypercholesterolemia Qualified Code(s): E78.00 - Pure hypercholesterolemia, unspecified; E78.0 - Pure hypercholesterolemia (13) Chronic diastolic (congestive) heart failure Priority: Secondary Status: Chronic Hospital course: Mr. Issa is a 68 year old male well known to this hospital and our service presents emergency Department with concerns of altered mental status and pain after a fall. states the patient had become increasingly fatigued over the past 2 days similar to when he had acute renal failure in the past. She got him up to the restroom and when he tried to stand he syncopized, falling to the ground. He fell to his left hip. He is moving the leg well in the emergency department. Laboratory evaluation shows acute renal failure. CT of the head and neck did not show acute fracture or intracranial hemorrhage. X-ray of the chest did not show pneumothorax or acute infiltrate. XR of right and left hips revealed no fracture. His creatinine is higher than his baseline most likely secondary to diuretics overdose. Home dose of Aldactone was adjusted and his renal function has improved. On the discharge day, renal function was at baseline. He will be discarded home with home health care and house visiting physician from [place]. Renal function improved. Fluid in edema slightly worsened and so he was resumed on Home Lasix (after giving IV dose) and resumed cautiously Aldactone as his BP was low. Potassium and renal function need monitored. Needs fluid restriction diet on discharge. - Time Spent with Patient Total time spent providing and/or coordinating discharge services: - Discharge Medications Home Medications: Amiodarone [Cordarone] 200 mg PO DAILY 04/04/18 [History] Aspirin 81 mg PO DAILY 04/04/18 [History] Atorvastatin [Lipitor] 40 mg PO HS 04/04/18 [History] Cholecalciferol (Vitamin D3) [Vitamin D3] 2,000 unit PO DAILY 04/04/18 [History] DULoxetine [Cymbalta] 30 mg PO DAILY 04/04/18 [History] Finasteride [Proscar] 5 mg PO DAILY 04/04/18 [History] Gabapentin [Neurontin] 400 mg PO BID 04/04/18 [History] Lubiprostone [Amitiza] 16 mcg PO BID@0800,1700 04/04/18 [History] Melatonin [Melatin] 9 mg PO HS 04/04/18 [History] Memantine HCl 10 mg PO BID 04/04/18 [History] Metoprolol XL (24 HR) Succ [Toprol Xl] 12.5 mg PO HS 04/04/18 [History] Pantoprazole Sodium [Protonix] 40 mg PO DAILY 04/04/18 [History] Rivaroxaban [Xarelto] 20 mg PO DAILY 04/04/18 [History] Sennosides/Docusate Sodium [Colace 2-in-1 Tablet] 1 each PO Q12H PRN 04/04/18 [History] Simethicone [Bicarsim] 80 mg PO Q8H PRN 04/04/18 [History] Tamsulosin HCl [Flomax] 0.4 mg PO BID 04/04/18 [History] Tizanidine HCl [Zanaflex] 2 mg PO BID 04/04/18 [History] Trazodone HCl 200 mg PO HS 04/04/18 [History] Losartan [Cozaar] 25 mg PO DAILY 04/24/18 [History] Tiotropium Br/Olodaterol HCl [Stiolto Respimat Inhal [place]] 2 puff IH DAILY 04/24/18 [History] Insulin ASPART [NovoLOG] 0 unit SQ TIDWM PRN 04/25/18 [History] Furosemide [Lasix] 40 mg PO DAILY #0 04/28/18 [Rx] Spironolactone [Aldactone] 25 mg PO DAILY tablet 05/04/18 [Rx] Allergies/Adverse Reactions: Allergy/AdvReac Type Severity Reaction Status Date / Time IVP DYE Allergy Severe Anaphylaxis Uncoded 04/03/18 22:56 Date of admission: 05/05/18 16:57 Primary care physician: Edda Rm DO Consults: 05/02/18 16:15 Consult to Occupational Therapy [CONS] Routine Comment: Evaluate, develop and implement POC Reason for Consult: dc planning Does patient have active BEDREST order?: No Is patient medically & hemodynamically stable?: Yes Patient assessed for mobility or mobilized this visit?: No Consult to Physical Therapy [CONS] Routine Comment: Evaluate, develop and implement POC Reason for Consult: dc planning Does patient have active BEDREST order?: No Is patient medically & hemodynamically stable?: Yes Patient assessed for mobility or mobilized this visit?: No 05/06/18 12:58 Consult to Nephrology [CONS] Routine Consulting Provider: [facility] [place]/OTTO/JESSICA/BENITO Reason for Consult: Acute on chronic kidney disease Call Completed: Yes Discharging clinician: Joshua David - Constitutional Vitals: Temp Pulse Resp BP Pulse Ox 97.5 F L 60 16 113/66 93 05/09/18 12:22 05/09/18 12:22 05/09/18 15:36 05/09/18 12:22 05/09/18 15:36 General appearance: Present: cooperative, A&O X 3, answers questions appropriately Exam: PHYSICAL EXAMINATION: GENERAL APPEARANCE: NAD HEENT: Head is normocephalic. The sinuses are nontender. Pupils are equal and reactive. The nares are patent. Oropharynx clear without lesions. HEART: Regular rate and rhythm. LUNGS: No crackles or wheezes are heard. ABDOMEN: Soft, nontender, nondistended with good bowel sounds heard. Inguinal area is normal. EXTREMITIES: 2+ bipedal pitting edema SKIN: Warm and dry without any rash. - Head Head exam: Present: atraumatic, normocephalic - Eye Eye exam: Present: PERRL, conjuntiva pink, sclera anicteric Pupils: Present: PERRL - Neck Neck exam general surgery: Present: supple, trachea midline. Absent: lymphadenopathy - Respiratory Respiratory exam: Present: CTAB. Absent: accessory muscle use, rales, rhonchi, wheezes - Cardiovascular Cardiovascular exam: Present: RRR, +S1, +S2. Absent: diastolic murmur, gallop, rubs, systolic murmur - GI/Abdominal GI/Abdominal exam: Present: normal bowel sounds, soft, no peritoneal signs. Absent: distended, tenderness - Extremities Exam Extremities exam: Present: pedal edema, warm, radial pulses palpable and symmetrical. Absent: calf tenderness, cyanotic - Neurological Exam Neurological exam: Present: CN II-XII intact, oriented X3, no focal deficits. Absent: pronater drift, facial droop, speech deficit - Skin Skin exam: Present: dry, intact - Patient Status Disposition: Transfer SNF Condition: Fair Functional capacity at discharge: uses cane/walker Overall status at discharge: patient is progressing back to baseline - Discharge Instructions Follow Up With: Edda Rm DO [Primary Care Provider] - 05/10/18 3:45 pm (Follow up as scheduled. ) Forms: ED Satisfaction Letter - Diet and Activity Activity: as per physical therapy Diet: diabetic diet, low fat, low cholesterol, low salt diet
--- NOTE | 2018-05-09 15:59 | Physician Discharge Referral ---
ExtendedCare Referral Info Provider in Charge after Transfer: Other Institutional Level of Care: Skilled - Diagnosis (1) Falls Priority: Primary Status: Acute (2) Cerebrovascular accident Priority: Secondary Status: Chronic (3) Hypertension Priority: Secondary Status: Chronic (4) Anxiety Priority: Secondary Status: Chronic (5) Depression Priority: Secondary Status: Chronic (6) Paroxysmal a-fib Priority: Secondary Status: Chronic (7) CAD (coronary atherosclerotic disease) Priority: Secondary Status: Chronic (8) Acute kidney injury Priority: Secondary Status: Resolved (9) COPD (chronic obstructive pulmonary disease) Priority: Secondary Status: Chronic (10) Diabetes mellitus Priority: Secondary Status: Chronic (11) DVT prophylaxis Priority: Secondary Status: Acute (12) HLD (hyperlipidemia) Priority: Secondary Status: Chronic (13) Chronic diastolic (congestive) heart failure Priority: Secondary Status: Chronic - Transfer Medications Home Medications: Amiodarone [Cordarone] 200 mg PO DAILY 04/04/18 [History] Aspirin 81 mg PO DAILY 04/04/18 [History] Atorvastatin [Lipitor] 40 mg PO HS 04/04/18 [History] Cholecalciferol (Vitamin D3) [Vitamin D3] 2,000 unit PO DAILY 04/04/18 [History] DULoxetine [Cymbalta] 30 mg PO DAILY 04/04/18 [History] Finasteride [Proscar] 5 mg PO DAILY 04/04/18 [History] Gabapentin [Neurontin] 400 mg PO BID 04/04/18 [History] Lubiprostone [Amitiza] 16 mcg PO BID@0800,1700 04/04/18 [History] Melatonin [Melatin] 9 mg PO HS 04/04/18 [History] Memantine HCl 10 mg PO BID 04/04/18 [History] Metoprolol XL (24 HR) Succ [Toprol Xl] 12.5 mg PO HS 04/04/18 [History] Pantoprazole Sodium [Protonix] 40 mg PO DAILY 04/04/18 [History] Rivaroxaban [Xarelto] 20 mg PO DAILY 04/04/18 [History] Sennosides/Docusate Sodium [Colace 2-in-1 Tablet] 1 each PO Q12H PRN 04/04/18 [History] Simethicone [Bicarsim] 80 mg PO Q8H PRN 04/04/18 [History] Tamsulosin HCl [Flomax] 0.4 mg PO BID 04/04/18 [History] Tizanidine HCl [Zanaflex] 2 mg PO BID 04/04/18 [History] Trazodone HCl 200 mg PO HS 04/04/18 [History] Losartan [Cozaar] 25 mg PO DAILY 04/24/18 [History] Tiotropium Br/Olodaterol HCl [Stiolto Respimat Inhal [place]] 2 puff IH DAILY 04/03 09/17 [History] Insulin ASPART [NovoLOG] 0 unit SQ TIDWM PRN 04/25/18 [History] Furosemide [Lasix] 40 mg PO DAILY #0 04/28/18 [Rx] Spironolactone [Aldactone] 25 mg PO DAILY tablet 05/04/18 [Rx] Allergies/Adverse Reactions: Allergy/AdvReac Type Severity Reaction Status Date / Time IVP DYE Allergy Severe Anaphylaxis Uncoded 04/03/18 22:56 - Respiratory Orders Smoking Cessation: Smoking cessation has been advised. For more information, call the [place] Tobacco Quit Line at 9-510-BJWE-NOW. - Advance Directives Code Status: Full Code - Rehabiliation Orders Rehab Potential: Fair Rehab Orders: Evaluation for Physical Therapy, Evaluation for Occupational Therapy - Diet Orders No Concentrated Sweets, Cardiac CERTIFICATION: I certify that the transfer of the above named patient to an Extended Care Facility is necessary for the continuing treatment of the diagnosis listed. The above information is true and accurate reflection of patient's current condition. Confidential - Redisclosure prohibited without a patient's written consent.
[2018-05-09] MEDS: *HR* Rivaroxaban 10 MG TABLET PO SCH (16:44)
[2018-05-09] MEDS: Melatonin 3 MG TABLET PO SCH (22:03)
[2018-05-09] MEDS: traZODone 50 MG TABLET PO SCH (22:05)
[2018-05-09] MEDS: Metoprolol XL (24 HR) Succ 25 MG TAB.ER.24H PO SCH (22:06)
[2018-05-09] MEDS: *HR* LORazepam 0.5 MG TABLET PO PRN (22:06)
[2018-05-10] MEDS: Albuterol 2.5 MG/3 ML NEBULIZER IH SCH ×4 (03:41→21:39)
[2018-05-10 04:37] LABS: Hemoglobin 12.2 g/dL (12.9-16.9); Mean Corpuscular HGB Conc 32.1 g/dL (31.6-35.5); Mean Corpuscular Hemoglobin 27.5 pg (28.0-33.3); Mean Corpuscular Volume 85.8 fL (83.0-100.0); Mean Platelet Volume 9.7 fL (9.4-12.4); Platelet Count 223 K/mcL (140-400); Red Blood Count 4.43 M/mcL (4.19-5.50); Red Cell Distribution Width 14.5 % (11.5-14.5)
[2018-05-10 04:55] LABS: BUN/Creatinine Ratio 23 (6-26); Blood Urea Nitrogen 28 mg/dL (8-23); Calcium 8.8 mg/dL (8.6-10.3); Carbon Dioxide 30 mEq/L (23-29); Chloride 102 mEq/L (98-107); Glucose 105 mg/dL (70-105); Osmolality,Calculated 294 (280-300); Potassium 3.7 mEq/L (3.5-5.1); Sodium 139 mEq/L (136-145); eGFR For Non-African Americans 59 (> 60)
[2018-05-10] MEDS: Gabapentin 400 MG CAPSULE PO SCH ×2 (09:42→21:12)
[2018-05-10] MEDS: Furosemide 40 MG TABLET PO SCH (09:42)
[2018-05-10] MEDS: Finasteride 5 MG TABLET PO SCH (09:42)
[2018-05-10] MEDS: Cholecalciferol (D-3) 1,000 UNIT TABLET PO SCH (09:42)
[2018-05-10] MEDS: *HR* Amiodarone 200 MG TABLET PO SCH (09:42)
[2018-05-10] MEDS: Aspirin 81 MG TAB.CHEW PO SCH (09:42)
[2018-05-10] MEDS: Triamcinolone Acet 0.1% CRM 15 GM TUBE TP SCH ×2 (09:43→21:14)
--- NOTE | 2018-05-10 11:11 | Event Note ---
Date of Encounter: 05/10/18 Time of Encounter: 11:08 Patient seen this AM Angry because of fluid restriction. Denies CP, SOB, n/v. States edema of extremities are slightly improved. VS: Reviewed Physical: Gen: NAD, CVS: rrr, lungs: CTAB, Ext: 1+ bipedal pitting edema. A/P: 1 - Falls 2 - H/O CVA 3 - Paroxysmal a fib 4 - CAD 5 - COPD 6 - DM 7 - Diastolic heart failure, chronic - Continue current management - [facility]
[2018-05-10] MEDS: Tiotropium 18 MCG inhalation IH SCH (11:41)
[2018-05-10] MEDS: *HR* OxyCODONE Immed Rel 5 MG TABLET PO SCH ×3 (12:33→21:13)
[2018-05-10] MEDS: *HR* Rivaroxaban 10 MG TABLET PO SCH (15:59)
[2018-05-10] MEDS: Metoprolol XL (24 HR) Succ 25 MG TAB.ER.24H PO SCH (21:10)
[2018-05-10] MEDS: Melatonin 3 MG TABLET PO SCH (21:12)
[2018-05-10] MEDS: traZODone 50 MG TABLET PO SCH (21:12)
[2018-05-10] MEDS: *HR* LORazepam 0.5 MG TABLET PO PRN (21:15)
[2018-05-11] MEDS: Albuterol 2.5 MG/3 ML NEBULIZER IH SCH ×2 (03:45→10:42)
[2018-05-11 07:07] VITALS: BP 96/62
--- NOTE | 2018-05-11 09:17 | Discharge Summary ---
- NOTES TO OUTPATIENT PROVIDER Notes to Outpatient Provider: - Has multiple FOOT DOCTOR depressant medications. These were titrated down slowly to prevent further falls. - Re-assess if he needs Spironolactone back restarted. His BP is within lower/normal limits while on a fluid restriction diet, but he states he does not plan to comply with fluid restriction on discharge. - Should have a fluid restriction diet, patient does not want to comply. - Recheck BP and BMP. Date of Encounter: 05/11/18 Time of Encounter: 09:14 - Discharge Diagnosis (1) Falls Priority: Primary Status: Acute Qualifiers: Encounter type: initial encounter Qualified Code(s): W19.XXXA - Unspecified fall, initial encounter (2) Cerebrovascular accident Priority: Secondary Status: Chronic Qualifiers: CVA mechanism: embolism Precerebral and cerebral artery: unspecified cerebral artery Qualified Code(s): I63.40 - Cerebral infarction due to embolism of unspecified cerebral artery (3) Hypertension Priority: Secondary Status: Chronic Qualifiers: Hypertension type: essential hypertension Qualified Code(s): I10 - Essential (primary) hypertension (4) Anxiety Priority: Secondary Status: Chronic (5) Depression Priority: Secondary Status: Chronic Qualifiers: Depression Type: major depressive disorder Major depression recurrence: recurrent Active/Remission status: in full remission Qualified Code(s): F33.42 - Major depressive disorder, recurrent, in full remission (6) Paroxysmal a-fib Priority: Secondary Status: Chronic (7) CAD (coronary atherosclerotic disease) Priority: Secondary Status: Chronic Qualifiers: Coronary Disease-Associated Artery/Lesion type: [place] artery [place] vs. transplanted heart: [place] heart Associated angina: without angina Qualified Code(s): I25.10 - Atherosclerotic heart disease of [place] coronary artery without angina pectoris (8) Acute kidney injury Priority: Secondary Status: Resolved (9) COPD (chronic obstructive pulmonary disease) Priority: Secondary Status: Chronic Qualifiers: COPD type: unspecified COPD Qualified Code(s): J44.9 - Chronic obstructive pulmonary disease, unspecified (10) Diabetes mellitus Priority: Secondary Status: Chronic Qualifiers: Diabetes mellitus type: type 2 Diabetes mellitus nursing home insulin use: without nursing home use Diabetes mellitus complication status: with kidney complications Diabetes mellitus complication detail: with chronic kidney disease Chronic kidney disease stage: stage 3 (moderate) Qualified Code(s): E11.22 - Type 2 diabetes mellitus with diabetic chronic kidney disease; N18.3 - Chronic kidney disease, stage 3 (moderate) (11) DVT prophylaxis Priority: Secondary Status: Acute (12) HLD (hyperlipidemia) Priority: Secondary Status: Chronic Qualifiers: Hyperlipidemia type: pure hypercholesterolemia Qualified Code(s): E78.00 - Pure hypercholesterolemia, unspecified; E78.0 - Pure hypercholesterolemia (13) Chronic diastolic (congestive) heart failure Priority: Secondary Status: Chronic Hospital course: Mr. Issa is a 68 year old male well known to this hospital and our service presents emergency Department with concerns of altered mental status and pain after a fall. states the patient had become increasingly fatigued over the past 2 days similar to when he had acute renal failure in the past. She got him up to the restroom and when he tried to stand he syncopized, falling to the ground. He fell to his left hip. He is moving the leg well in the emergency department. Laboratory evaluation shows acute renal failure. CT of the head and neck did not show acute fracture or intracranial hemorrhage. X-ray of the chest did not show pneumothorax or acute infiltrate. XR of right and left hips revealed no fracture. His creatinine is higher than his baseline most likely secondary to diuretics overdose. Home dose of Aldactone was adjusted and his renal function has improved. On the discharge day, renal function was at baseline. He will be discarded home with home health care and house visiting physician from [place]. Renal function improved. Fluid in edema slightly worsened and so he was resumed on Home Lasix (after giving IV dose) and resumed cautiously Aldactone as his BP was low. Potassium and renal function need monitored. Needs fluid restriction diet on discharge. - Time Spent with Patient Total time spent providing and/or coordinating discharge services: - Discharge Medications Home Medications: Amiodarone [Cordarone] 200 mg PO DAILY 04/04/18 [History] Aspirin 81 mg PO DAILY 04/04/18 [History] Atorvastatin [Lipitor] 40 mg PO HS 04/04/18 [History] Cholecalciferol (Vitamin D3) [Vitamin D3] 2,000 unit PO DAILY 04/04/18 [History] DULoxetine [Cymbalta] 30 mg PO DAILY 04/04/18 [History] Finasteride [Proscar] 5 mg PO DAILY 04/04/18 [History] Gabapentin [Neurontin] 400 mg PO BID 04/04/18 [History] Lubiprostone [Amitiza] 16 mcg PO BID@0800,1700 04/04/18 [History] Melatonin [Melatin] 9 mg PO HS 04/04/18 [History] Memantine HCl 10 mg PO BID 04/04/18 [History] Metoprolol XL (24 HR) Succ [Toprol Xl] 12.5 mg PO HS 04/04/18 [History] Pantoprazole Sodium [Protonix] 40 mg PO DAILY 04/04/18 [History] Rivaroxaban [Xarelto] 20 mg PO DAILY 04/04/18 [History] Sennosides/Docusate Sodium [Colace 2-in-1 Tablet] 1 each PO Q12H PRN 04/04/18 [History] Simethicone [Bicarsim] 80 mg PO Q8H PRN 04/04/18 [History] Tamsulosin HCl [Flomax] 0.4 mg PO BID 04/04/18 [History] Tizanidine HCl [Zanaflex] 2 mg PO BID 04/04/18 [History] Trazodone HCl 200 mg PO HS 04/04/18 [History] Losartan [Cozaar] 25 mg PO DAILY 04/24/18 [History] Tiotropium Br/Olodaterol HCl [Stiolto Respimat Inhal [place]] 2 puff IH DAILY 04/24/18 [History] Insulin ASPART [NovoLOG] 0 unit SQ TIDWM PRN 04/25/18 [History] Furosemide [Lasix] 40 mg PO DAILY #0 04/28/18 [Rx] Oxycodone HCl [Roxybond] 10 mg PO TID 05/10/18 [History] Allergies/Adverse Reactions: Allergy/AdvReac Type Severity Reaction Status Date / Time IVP DYE Allergy Severe Anaphylaxis Uncoded 04/03/18 22:56 Date of admission: 05/05/18 16:57 Primary care physician: Edda Rm DO Consults: 05/02/18 16:15 Consult to Occupational Therapy [CONS] Routine Comment: Evaluate, develop and implement POC Reason for Consult: dc planning Does patient have active BEDREST order?: No Is patient medically & hemodynamically stable?: Yes Patient assessed for mobility or mobilized this visit?: No Consult to Physical Therapy [CONS] Routine Comment: Evaluate, develop and implement POC Reason for Consult: dc planning Does patient have active BEDREST order?: No Is patient medically & hemodynamically stable?: Yes Patient assessed for mobility or mobilized this visit?: No 05/06/18 12:58 Consult to Nephrology [CONS] Routine Consulting Provider: Kidney Sujatha/OTTO/JESSICA/BENITO Reason for Consult: Acute on chronic kidney disease Call Completed: Yes Discharging clinician: Joshua David - Constitutional Vitals: Temp Pulse Resp BP Pulse Ox 97.9 F 61 15 96/62 94 05/11/18 07:04 05/11/18 07:04 05/11/18 07:04 05/11/18 07:04 05/11/18 07:04 General appearance: Present: cooperative, A&O X 3, answers questions appropriately Exam: PHYSICAL EXAMINATION: GENERAL APPEARANCE: NAD HEENT: Head is normocephalic. The sinuses are nontender. Pupils are equal and reactive. The nares are patent. Oropharynx clear without lesions. HEART: Regular rate and rhythm. LUNGS: No crackles or wheezes are heard. ABDOMEN: Soft, nontender, nondistended with good bowel sounds heard. Inguinal area is normal. EXTREMITIES: 2+ bipedal pitting edema SKIN: Warm and dry without any rash. - Patient Status Disposition: Transfer SNF Condition: Fair - Discharge Instructions Follow Up With: Krish-Edda Banda DO [Primary Care Provider] - 05/10/18 3:45 pm (Follow up as scheduled. ) Forms: ED Satisfaction Letter - Diet and Activity Activity: increase activity as tolerated Diet: other (Renal, cardiac, cautious with fluids.)
[2018-05-11] MEDS: Furosemide 40 MG TABLET PO SCH (09:22)
[2018-05-11] MEDS: Cholecalciferol (D-3) 1,000 UNIT TABLET PO SCH (09:22)
[2018-05-11] MEDS: *HR* OxyCODONE Immed Rel 5 MG TABLET PO SCH (09:22)
[2018-05-11] MEDS: Aspirin 81 MG TAB.CHEW PO SCH (09:22)
[2018-05-11] MEDS: Finasteride 5 MG TABLET PO SCH (09:22)
[2018-05-11] MEDS: *HR* Amiodarone 200 MG TABLET PO SCH (09:22)
[2018-05-11] MEDS: Gabapentin 400 MG CAPSULE PO SCH (09:22)
[2018-05-11] MEDS: Triamcinolone Acet 0.1% CRM 15 GM TUBE TP SCH (09:25)
[2018-05-11] MEDS: Tiotropium 18 MCG inhalation IH SCH (10:42)
== END 2018-05-11 12:32 | DRG 683 ==
LOC: EMEROOARM 12:05 → 3ANU 12:05 → SUATTDRO 05-05 16:57
PROVIDERS: ADMIT Internal Medicine; ATTEND Student in an Organized Health Care Education/Training Program

== ENCOUNTER 2018-05-13 15:04 | Observation (INO) ==
[2018-05-13] MEDS ORDERED: Aspirin 81 MG TAB.CHEW PO STA (15:49)
--- NOTE | 2018-05-13 15:52 | Emergency Department Note ---
Disposition Clinical Impression: Renal insufficiency Edema Qualifiers: Edema type: generalized Qualified Code(s): R60.1 - Generalized edema Dyspnea Qualifiers: Dyspnea type: unspecified Qualified Code(s): R06.00 - Dyspnea, unspecified Chest pain Qualifiers: Chest pain type: unspecified Qualified Code(s): R07.9 - Chest pain, unspecified Disposition: Admitted As Inpatient Condition: Fair [facility] Provider[facility] - Forms: ED Satisfaction Letter, Work/School Release General Adult HPI - General Chief complaint: ED General Medical Stated complaint: "edema,can't urinate" Time Seen by Provider: 05/13/18 15:33 - History of Present Illness HPI Narrative: Patient was admitted here after a fall with inability to bear weight on his right leg, negative workup. Was discharged on Monday to a rehabilitation facility, still having trouble bearing weight on the right hip (I reviewed the records and found a negative hip x-ray, but no advanced imaging; he cannot have an MRI due to his pacemaker, no CT was done). Apparently his diuretics have been held because his creatinine was up. His reports that he has gained 10 pounds over the last 2 days while being off his diuretics. Had chest pain yesterday evening, none today, but pain was present throughout the evening yesterday. Has exertional dyspnea and orthopnea. Feels like he is swelling up. Has also had a cough productive of brown sputum. No fever. Denies abdominal pain or other complaint. Pain Scale: 8 - Related Data Home Medications Medication Instructions Recorded Confirmed Amiodarone [Cordarone] 200 mg PO DAILY 04/04/18 05/02/18 Aspirin 81 mg PO DAILY 04/04/18 05/02/18 Atorvastatin [Lipitor] 40 mg PO HS 04/04/18 05/02/18 Cholecalciferol (Vitamin D3) 2,000 unit PO DAILY 04/04/18 05/02/18 [Vitamin D3] DULoxetine [Cymbalta] 30 mg PO DAILY 04/04/18 05/02/18 Finasteride [Proscar] 5 mg PO DAILY 04/04/18 05/02/18 Gabapentin [Neurontin] 400 mg PO BID 04/04/18 05/02/18 Lubiprostone [Amitiza] 16 mcg PO BID@0800,1700 04/04/18 05/02/18 Melatonin [Melatin] 9 mg PO HS 04/04/18 05/02/18 Memantine HCl 10 mg PO BID 04/04/18 05/02/18 Metoprolol XL (24 HR) Succ [Toprol 12.5 mg PO HS 04/04/18 05/02/18 Xl] Pantoprazole Sodium [Protonix] 40 mg PO DAILY 04/04/18 05/02/18 Rivaroxaban [Xarelto] 20 mg PO DAILY 04/04/18 05/02/18 Sennosides/Docusate Sodium [Colace 1 each PO Q12H PRN 04/04/18 05/02/18 2-in-1 Tablet] Simethicone [Bicarsim] 80 mg PO Q8H PRN 04/04/18 05/02/18 Tamsulosin HCl [Flomax] 0.4 mg PO BID 04/04/18 05/02/18 Tizanidine HCl [Zanaflex] 2 mg PO BID 04/04/18 05/02/18 Trazodone HCl 200 mg PO HS 04/04/18 05/02/18 Losartan [Cozaar] 25 mg PO DAILY 04/24/18 05/02/18 Tiotropium Br/Olodaterol HCl 2 puff IH DAILY 04/24/18 05/02/18 [Stiolto Respimat Inhal [place]] Insulin ASPART [NovoLOG] 0 unit SQ TIDWM PRN 04/25/18 05/02/18 Oxycodone HCl [Roxybond] 10 mg PO TID 05/10/18 05/10/18 Previous Rx's Medication Instructions Recorded Furosemide [Lasix] 40 mg PO DAILY #0 04/28/18 OxyCODONE Immed Rel [Roxicodone 10 10 mg PO Q8H PRN 3 Days #9 tab 05/11/18 MG] Allergies Allergy/AdvReac Type Severity Reaction Status Date / Time IVP DYE Allergy Severe Anaphylaxis Uncoded 05/13/18 15:28 All systems ED: reviewed and negative except as stated. Past Medical History - Past Medical History Medical history: Reports: arthritis, atrial fibrillation, CHF, COPD, coronary artery disease, CVA, diabetes, GERD, hyperlipidemia, hypertension, pulmonary embolus, renal disease Surgical history: Reports: cholecystectomy, herniorrhaphy, knee replacement, orthopedic, other, pacemaker/AICD Psychiatric history: Reports: anxiety, bipolar, depression, panic disorder - Social History Smoking Status: Former smoker Smokeless Tobacco Status: No Alcohol use: Reports: none Drug use: Reports: none Physical Exam Vital signs noted please see nurse's notes. Gen.: Well-developed, well-nourished patient lying in bed who appears nontoxic. Head: Atraumatic, normocephalic. Eyes: Sclerae anicteric. ENT: Mucous membranes moist. Neck: No JVD or hepatojugular reflux. Heart: Regular rate and rhythm without appreciable murmur. Lungs: Normal respiratory pattern without respiratory distress, scattered wheezes, somewhat more prominent on the right than the left. Minimal right basilar rales, subtle. Abdomen: Soft, nontender, nondistended, no guarding or peritoneal signs. Skin: Warm and dry without rash. Neurologic: Awake, alert with normal speech and mental status. Cranial nerves grossly intact. No focal deficits or lateralizing signs. Psychiatric: Normal mood and affect. Muscular skeletal: 1+ bilateral pitting peripheral edema. No signs of trauma or DVT. Course Vital Signs Temperature 98.0 F 05/13/18 15:26 Pulse Rate 72 05/13/18 15:26 Respiratory Rate 18 05/13/18 15:26 Blood Pressure 106/70 05/13/18 15:26 O2 Sat by Pulse Oximetry 92 05/13/18 15:26 Temperature 98.0 F 05/13/18 17:04 Pulse Rate 72 05/13/18 18:11 Respiratory Rate 18 05/13/18 18:11 Blood Pressure 123/76 05/13/18 18:11 O2 Sat by Pulse Oximetry 96 05/13/18 18:11 Oxygen Delivery Oxygen Delivery Room Air Medical Decision Making - [facility] Narrative Medical decision making narrative: EKG from May 05 reviewed, appears similar. There is no movement artifact on this comparison EKG, but the Q waves were present, and the borderline ST segment elevations are present as well, again less than 1 mm. 1945: BNP is negative, ordinarily reliable to rule out heart failure, but false- negative rate as high as 20% of been reported in the obese. His clinical his tory seems most consistent with volume overload and heart failure, given the weight gain, edema, and withholding of diuretics. Cardiology evaluation and echocardiography seem warranted. At the same time, he has had limited mobility and is hypoxic with an otherwise negative ED workup. All my suspicion for pulmonary embolism is low, he is a moderate risk patient. He is already on Xarelto, making PE less likely but not impossible. I have added a d-dimer to his workup, and this is currently pending. Contacting hospitalist for admission. - Lab Data Result diagrams: 05/13/18 18:50 05/13/18 18:50 Lab Results 05/13/18 05/13/18 05/13/18 Range/Units 18:50 18:50 18:50 WBC 6.2 (4.3-11.1) K/mcL RBC 4.75 (4.19-5.50) M/mcL Hgb 13.0 (12.9-16.9) g/dL Hct 40.9 (37.5-50.1) % MCV 86.1 (83.0-100.0) fL MCH 27.4 L (28.0-33.3) pg MCHC 31.8 (31.6-35.5) g/dL RDW 14.3 (11.5-14.5) % Plt Count 262 (140-400) K/mcL MPV 9.9 (9.4-12.4) fL Immature Gran % 0.2 (0-4) % Seg Neutrophils % 74.4 % Lymphocytes % 11.2 % Monocytes % 7.9 % Eosinophils % 5.8 % Basophils % 0.5 % Neutrophils # 4.7 (1.6-8.9) K/mcL Lymphocytes # 0.7 (0.6-4.6) K/mcL Monocytes # 0.5 (0.0-1.3) K/mcL Eosinophils # 0.4 (0.0-0.6) K/mcL Basophils # 0.0 (0.0-0.2) K/mcL Sodium 137 (136-145) mEq/L Potassium 3.8 (3.5-5.1) mEq/L Chloride 98 (98-107) mEq/L Carbon Dioxide 32 H (23-29) mEq/L BUN 19 (8-23) mg/dL Creatinine 1.38 H (0.70-1.30) mg/dL Est GFR ( Amer) > 60 (> 60) Est GFR (Non-Af Amer) 51 L (> 60) BUN/Creatinine Ratio 14 (6-26) Glucose 138 H (70-105) mg/dL Calculated Osmolality 288 (280-300) Calcium 8.7 (8.6-10.3) mg/dL Troponin I < 0.03 (< 0.04) ng/mL B-Natriuretic Peptide 27 (Less than 100) pg/mL - EKG Data EKG #1 EKG attestation: Yes I reviewed and interpreted this EKG. EKG shows normal: sinus rhythm (Rate 68, normal intervals and QRS duration. There are inferolateral Q waves with borderline ST elevation, less than 1 mm. There is some contribution of movement artifact. I am awaiting an old EKG for comparison.)
[2018-05-13 19:02] LABS: Basophils % 0.5 %; Eosinophils # 0.4 K/mcL (0.0-0.6); Eosinophils % 5.8 %; Hematocrit 40.9 % (37.5-50.1); Immature Granulocytes % 0.2 % (0-4); Lymphocytes # 0.7 K/mcL (0.6-4.6); Lymphocytes % 11.2 %; Mean Corpuscular HGB Conc 31.8 g/dL (31.6-35.5); Mean Corpuscular Hemoglobin 27.4 pg (28.0-33.3); Mean Corpuscular Volume 86.1 fL (83.0-100.0); Mean Platelet Volume 9.9 fL (9.4-12.4); Monocytes # 0.5 K/mcL (0.0-1.3); Monocytes % 7.9 %; Neutrophils # 4.7 K/mcL (1.6-8.9); Platelet Count 262 K/mcL (140-400); Red Blood Count 4.75 M/mcL (4.19-5.50); Red Cell Distribution Width 14.3 % (11.5-14.5); Segmented Neutrophils % 74.4 %
[2018-05-13 19:23] LABS: BUN/Creatinine Ratio 14 (6-26); Blood Urea Nitrogen 19 mg/dL (8-23); Calcium 8.7 mg/dL (8.6-10.3); Carbon Dioxide 32 mEq/L (23-29); Chloride 98 mEq/L (98-107); Glucose 138 mg/dL (70-105); Osmolality,Calculated 288 (280-300); Potassium 3.8 mEq/L (3.5-5.1); Sodium 137 mEq/L (136-145); Troponin I < 0.03 ng/mL (< 0.04); eGFR For Non-African Americans 51 (> 60)
[2018-05-13] MEDS: Melatonin 3 MG TABLET PO SCH (21:10)
[2018-05-13] MEDS ORDERED: Naloxone 0.4 MG/ML INJ IVP PRN (23:29)
[2018-05-13] MEDS ORDERED: Furosemide 40 MG/4 ML VIAL IVP ONE (23:32)
[2018-05-13] MEDS ORDERED: Dextrose Gel 15 GM/37.5 ML TUBE PO PRN ×2 (23:34)
[2018-05-13] MEDS ORDERED: D5% in Water 1,000 ML IVC PRN (23:34)
[2018-05-13] MEDS ORDERED: *HR* Dextrose 50 % in Water (Syg) 50 ML SYRINGE IVP PRN (23:34)
[2018-05-14] MEDS: Insulin LISPRO 300 UNITS/3 ML VIAL SQ SCH ×5 (00:33→21:27)
--- NOTE | 2018-05-14 04:47 | Internal Med History&Physical ---
Date of Encounter: 05/14/18 Time of Encounter: 02:00 Internal Medicine - H&P: HPI Chief complaint: Worsening Edema History of present illness: Mr. Issa is a 68 year old male with multiple comorbidities including CHF, diabetes, COPD, CAD among others who was recently discharged from [place] 2 days ago to a rehabilitation facility and now returns due to worsening lower e xtremity edema. Per the patient he was not happy with the care he was receiving. His reports that he has gained 10 pounds over the past 2 days while being off his diuretics which were held apparently because his creatinine was elevated. He states he has had worsening lower extremity edema to the extent that he can no longer put on his shoes. Patient does endorse some cough and shortness of breath with exertion and orthopnea. Chest x-ray was performed which did not appear changed from previous x-ray. Labs were otherwise unremarkable. Past Med Surg Social Fam HX - Past Medical History Medical history: arthritis, atrial fibrillation, CHF, COPD, coronary artery disease, CVA, diabetes, GERD, hyperlipidemia, hypertension, pulmonary embolus, renal disease Additional medical history: Pacemaker, emphysema Psychiatric history: anxiety, bipolar, depression, panic disorder - Past Surgical History Surgical History: cholecystectomy, herniorrhaphy, knee replacement, orthopedic, other, pacemaker/AICD Additional surgical history: Right knee replacement. Cardiac Ablasion. left arm - Social History Smoking Status: Former smoker Smokeless Tobacco Status: No Alcohol use: none Drug use: none - Family History Father Adopted: No Family Member Ethnicity: Non- Living Status: Age at : 42 Cause of : leukemia Hx Family Cardiac Disorders: No Hx Family Respiratory Disorders: No Hx Family Cancer: Yes (leukemia) Hx Family GI Disorders: No Hx Family Endocrine Disorder: No Hx Family Neuromuscular Disorders: No Hx Family Neurologic Disorders: No Hx Family HEENT Disorders: No Hx Family Autoimmune Disorders: No Brother Family Member Ethnicity: Non- Living Status: Still Living Sister Family Member Ethnicity: Non- Living Status: Still Living Mother Adopted: No Family Member Ethnicity: Non- Twin of Family Member: Yes Living Status: Age at : 87 Cause of : Kidney failure Hx Family Cardiac Disorders: Yes (CHF) Hx Family Respiratory Disorders: No Hx Family Cancer: No Hx Family GI Disorders: No Hx Family Endocrine Disorder: No Hx Family Neuromuscular Disorders: No Hx Family Neurologic Disorders: No Hx Family HEENT Disorders: No Hx Family Autoimmune Disorders: No Internal Medicine - H&P: Meds Amiodarone [Cordarone] 200 mg PO DAILY 04/04/18 [History] Aspirin 81 mg PO DAILY 04/04/18 [History] Atorvastatin [Lipitor] 40 mg PO HS 04/04/18 [History] Cholecalciferol (Vitamin D3) [Vitamin D3] 2,000 unit PO DAILY 04/04/18 [History] DULoxetine [Cymbalta] 30 mg PO DAILY 04/04/18 [History] Finasteride [Proscar] 5 mg PO DAILY 04/04/18 [History] Gabapentin [Neurontin] 400 mg PO BID 04/04/18 [History] Lubiprostone [Amitiza] 16 mcg PO 0800,1700 04/04/18 [History] Melatonin [Melatin] 9 mg PO HS 04/04/18 [History] Memantine HCl 10 mg PO BID 04/04/18 [History] Metoprolol XL (24 HR) Succ [Toprol Xl] 12.5 mg PO HS 04/04/18 [History] Pantoprazole Sodium [Protonix] 40 mg PO DAILY 04/04/18 [History] Rivaroxaban [Xarelto] 20 mg PO DAILY 04/04/18 [History] Sennosides/Docusate Sodium [Colace 2-in-1 Tablet] 1 each PO Q12H PRN 04/04/18 [History] Simethicone [Bicarsim] 80 mg PO Q8H PRN 04/04/18 [History] Tamsulosin HCl [Flomax] 0.4 mg PO BID 04/04/18 [History] Tizanidine HCl [Zanaflex] 2 mg PO BID 04/04/18 [History] Trazodone HCl 200 mg PO HS 04/04/18 [History] Losartan [Cozaar] 25 mg PO DAILY 04/24/18 [History] Tiotropium Br/Olodaterol HCl [Stiolto Respimat Inhal [place]] 2 puff IH DAILY 04/24/18 [History] Insulin ASPART [NovoLOG] 0 unit SQ TIDWM PRN 04/25/18 [History] Furosemide [Lasix] 40 mg PO DAILY #0 04/28/18 [Rx] OxyCODONE Immed Rel [Roxicodone 10 MG] 10 mg PO Q8H PRN 05/14/18 [History] Allergy/AdvReac Type Severity Reaction Status Date / Time IVP DYE Allergy Severe Anaphylaxis Uncoded 05/13/18 15:28 All Systems PM: A 10-system review of systems was performed and is negative for pertinent findings except as documented above in the HPI. - Constitutional Constitutional: no chills, no fever(s), no night sweats - EENT Eyes: no change in vision, no discharge, no pain, no photophobia Ears: no ear discharge, no ear pain, no tinnitus Nose, mouth and throat: no dysphagia, no nasal discharge, no neck pain, no sore throat - Cardiovascular Cardiovascular ROS IM: no chest pain, no diaphoresis, no dyspnea, no lightheadedness, no palpitations, no syncope - Respiratory Respiratory: no cough, no dyspnea, no wheezing, no excessive phlegm production - Gastrointestinal Gastrointestinal: no abdominal pain, no diarrhea, no hematemesis, no hematochezia, no melena, no nausea, no vomiting - Musculoskeletal Musculoskeletal ROS IM: no numbness, no tingling - Integumentary Integumentary IM: no rash, no unusual bruising - Neurological Neurological ROS: no confusion, no convulsions, no focal weakness, no numbness, no tingling, no tremor(s) - Hematologic/Lymphatic Hematologic/Lymphatic: no easy bruising - Constitutional Vitals: Temp Pulse Resp BP Pulse Ox 98.1 F 84 18 132/88 95 05/14/18 04:01 05/14/18 04:01 05/14/18 04:01 05/14/18 04:01 05/14/18 04:01 Exam: General: Alert and oriented 3; lying in bed in no acute distress Skin:Normal color, no rash, no lesions. HEENT:EOM, pupils equal, round and reactive. Cardiovascular:Normal S1 & S2, no rubs, murmurs or gallops. No JVD. Pulse regular. Lungs:Normal breath sounds, no wheezes or crackles. Abdomen:Soft, non-tender, no rigidity. Extremities: 2+ lower extremity edema bilaterally up to the knees. Neurological:Normal cognition and motor skills. Pulses:Carotid and radial pulses normal +2. Rest of the physical exam is non contributory Internal Med - H&P Results - Labs CBC & Chem 7: 05/14/18 04:45 05/14/18 04:45 Labs: Short CBC 05/13/18 Range/Units 18:50 WBC 6.2 (4.3-11.1) K/mcL Hgb 13.0 (12.9-16.9) g/dL Hct 40.9 (37.5-50.1) % Plt Count 262 (140-400) K/mcL Neutrophils # 4.7 (1.6-8.9) K/mcL BMP 05/13/18 18:50 Sodium 137 Potassium 3.8 Chloride 98 Carbon Dioxide 32 H BUN 19 Creatinine 1.38 H Glucose 138 H Calcium 8.7 Cardiac Enzymes 05/13/18 Range/Units 18:50 Troponin I < 0.03 (< 0.04) ng/mL - Impressions ITS Impressions Chest X-Ray 05/13/18 15:32 IMPRESSION: Patchy areas of atelectasis in the right mid to lower lung. Otherwise stable exam with no new acute cardiopulmonary findings. D/ / Shyann Armstrong MD / Shyann Armstrong MD Interpreting Provider: Shyann Armstrong MD Hip CT 05/13/18 15:59 IMPRESSION: 1. No acute osseous abnormality of the pelvis or right hip identified. 2. Mild osteoarthritis of the bilateral hips. 3. Mild to moderate spondylosis and facet arthrosis of the partially imaged lumbar spine. D/ / Joesph Garza MD / Joesph Garza MD Interpreting Provider: Joesph Garza MD - Assessment and plan (1) Acute on chronic diastolic (congestive) heart failure Current Visit: No Status: Acute Assessment and plan: Mild CHF exacerbation with a reported 10 pound weight gain in the setting of worsening lower extremity edema. Per reports patient was not receiving his Lasix at his rehabilitation center due to concern of his elevated creatinine. Patient also is noncompliant with his fluid restriction. Patient had a recent echo on April 28 which showed a left ventricular ejection fraction of 60-65%. There were no reports of diastolic dysfunction. Patient was given 40 mg of Lasix IV push. Continue with strict I's and O's; daily weights; fluid restriction to 1800cc/day Patient appears to have been on 40 mg by mouth Lasix. We will resume patient's home dose of his Lasix and monitor once doses been reconciled. (2) Dyspnea Current Visit: Yes Status: Acute Assessment and plan: Dyspnea likely secondary to CHF exacerbation. Patient's chest x-ray was relatively unremarkable. Continue supportive care Treat for CHF exacerbation Qualifiers: Dyspnea type: unspecified Qualified Code(s): R06.00 - Dyspnea, unspecified (3) Edema Current Visit: Yes Status: Acute Assessment and plan: Worsening lower extremity edema and 10 pound weight gain likely secondary to CHF exacerbation due to holding of his diuretics and history of noncompliance with fluid restrictions. See treatment above. Qualifiers: Edema type: generalized Qualified Code(s): R60.1 - Generalized edema (4) AG (acute kidney injury) Current Visit: No Status: Acute Assessment and plan: Mildly elevated creatinine. Suspect secondary to type I cardiorenal syndrome gi renato that his Lasix was held. We will treat for CHF exacerbation and monitor response. (5) COPD (chronic obstructive pulmonary disease) Current Visit: No Status: Acute Assessment and plan: Stable. No evidence of an acute exacerbation. Continue home medications. Qualifiers: Emphysema type: unspecified Qualified Code(s): J43.9 - Emphysema, unspec ified (6) Paroxysmal a-fib Current Visit: No Status: Chronic Assessment and plan: Resume Xarelto once doses been verified - Time Spent With Patient Total time spent is greater than 50% in coordination of care (as documented) at patient's floor/unit and/or counseling patient:
[2018-05-14 05:04] LABS: Basophils % 0.4 %; Eosinophils # 0.2 K/mcL (0.0-0.6); Eosinophils % 2.5 %; Hematocrit 40.5 % (37.5-50.1); Immature Granulocytes % 0.3 % (0-4); Lymphocytes # 0.4 K/mcL (0.6-4.6); Lymphocytes % 4.3 %; Mean Corpuscular HGB Conc 32.1 g/dL (31.6-35.5); Mean Corpuscular Hemoglobin 27.4 pg (28.0-33.3); Mean Corpuscular Volume 85.4 fL (83.0-100.0); Mean Platelet Volume 9.4 fL (9.4-12.4); Monocytes # 0.8 K/mcL (0.0-1.3); Monocytes % 8.3 %; Neutrophils # 7.8 K/mcL (1.6-8.9); Platelet Count 246 K/mcL (140-400); Red Blood Count 4.74 M/mcL (4.19-5.50); Red Cell Distribution Width 14.4 % (11.5-14.5); Segmented Neutrophils % 84.2 %
[2018-05-14 05:26] LABS: Alanine Aminotransferase 38 Units/L (7-52); Albumin 3.6 g/dL (3.5-5.7); Albumin/Globulin Ratio 1.3 (1.1-2.2); Alkaline Phosphatase 95 Units/L (34-104); Aspartate Amino Transferase 27 Units/L (13-39); BUN/Creatinine Ratio 15 (6-26); Bilirubin,Total 0.3 mg/dL (0.3-1.0); Blood Urea Nitrogen 21 mg/dL (8-23); Calcium 8.6 mg/dL (8.6-10.3); Carbon Dioxide 29 mEq/L (23-29); Chloride 101 mEq/L (98-107); Globulin 2.8 g/dL (2.4-3.5); Glucose 111 mg/dL (70-105); Osmolality,Calculated 290 (280-300); Potassium 3.4 mEq/L (3.5-5.1); Sodium 138 mEq/L (136-145); Total Protein 6.4 g/dL (6.4-8.9); eGFR For Non-African Americans 51 (> 60)
[2018-05-14] MEDS ORDERED: Furosemide 40 MG/4 ML VIAL IVP ONE (06:33)
[2018-05-14] MEDS ORDERED: Simethicone 80 MG TAB.CHEW PO PRN (18:34)
[2018-05-14] MEDS ORDERED: Sennosides/Docusate Sodium TABLET PO PRN (18:34)
[2018-05-14] MEDS: tiZANidine 4 MG TABLET PO SCH (21:09)
[2018-05-14] MEDS: Metoprolol XL (24 HR) Succ 25 MG TAB.ER.24H PO SCH (21:09)
[2018-05-14] MEDS: Gabapentin 400 MG CAPSULE PO SCH (21:10)
[2018-05-14] MEDS: *HR* OxyCODONE Immed Rel 5 MG TABLET PO PRN (21:11)
[2018-05-14] MEDS: *HR* Rivaroxaban 10 MG TABLET PO SCH (21:23)
[2018-05-14] MEDS: traZODone 50 MG TABLET PO SCH (21:23)
[2018-05-15] MEDS ORDERED: LUBIPROSTONE PO SCH (08:00)
[2018-05-15] MEDS: Insulin LISPRO 300 UNITS/3 ML VIAL SQ SCH ×4 (08:27→22:44)
[2018-05-15] MEDS: *HR* Amiodarone 200 MG TABLET PO SCH (08:28)
[2018-05-15] MEDS: Gabapentin 400 MG CAPSULE PO SCH ×2 (08:29→22:37)
[2018-05-15] MEDS: Finasteride 5 MG TABLET PO SCH (08:29)
[2018-05-15] MEDS: tiZANidine 4 MG TABLET PO SCH ×2 (08:29→22:36)
[2018-05-15] MEDS: Aspirin 81 MG TAB.CHEW PO SCH (08:30)
[2018-05-15] MEDS ORDERED: NON-FORMULARY MEDICATION 1 EACH EACH (Rivaroxaban [Xarelto] 20 MG) PO SCH (09:00)
[2018-05-15] MEDS ORDERED: (Tiotropium Br/Olodaterol Hcl [Stiolto Respimat Inhal IH SCH (09:00)
[2018-05-15] MEDS ORDERED: Furosemide 40 MG TABLET PO SCH (09:00)
[2018-05-15] MEDS: Ipratropium/Albuterol Neb 3 ML IH SCH ×2 (16:05→22:01)
[2018-05-15] MEDS: *HR* Rivaroxaban 10 MG TABLET PO SCH (16:48)
--- NOTE | 2018-05-15 18:32 | Internal Med Progress Note ---
Hospitalist Progress Note - Encounter Date of Encounter: 05/15/18 Time of Encounter: 18:30 - Subjective Interval History: Pt denies fever or chills. He states his leg swelling has improved some. He denies CP ro SOB. - Exam Vitals: Temp Pulse Resp BP Pulse Ox 98.6 F 63 20 97/58 94 05/15/18 16:26 05/15/18 16:26 05/15/18 16:26 05/15/18 16:26 05/15/18 16:26 Exam: General: Alert and oriented 3; lying in bed in no acute distress HEENT:EOM, pupils equal, round and reactive. Cardiovascular:Normal S1 & S2, no rubs, murmurs or gallops. No JVD. Pulse regular. Lungs:Normal breath sounds, no wheezes or crackles. Abdomen:Soft, non-tender, no rigidity. Extremities: 2+ lower extremity edema bilaterally up to the knees. Neurological:Normal cognition and motor skills. Pulses:Carotid and radial pulses normal +2. Skin:Normal color, no rash, no lesions. - Assessment and Plan (1) Paroxysmal a-fib Current Visit: No Status: Chronic Assessment and Plan: On Xarelto. (2) Acute on chronic diastolic (congestive) heart failure Current Visit: No Status: Acute Assessment and Plan: Mild CHF exacerbation with a reported 10 pound weight gain in the setting of worsening lower extremity edema. Per reports patient was not receiving his Lasix at his rehabilitation center due to concern of his elevated creatinine. Patient also is noncompliant with his fluid restriction. Patient had a recent echo on April 28 which showed a left ventricular ejection fraction of 60-65%. There were no reports of diastolic dysfunction. Patient was given 40 mg of Lasix IV push. Continue with strict I's and O's; daily weights; fluid restriction to 1800cc/day Patient appears to have been on 40 mg by mouth Lasix. We will resume patient's home dose of his Lasix and monitor once doses been reconciled. (3) Edema Current Visit: Yes Status: Acute Assessment and Plan: Pt presented with worsening lower extremity edema and 10 pound weight gain likely secondary to CHF exacerbation. Pt was reportedly holding his diuretics and has history of noncompliance with fluid restrictions. Had been resumed on Lasix PO but will switch to IV Lasix for now. Pt states edema slowly improving. (4) COPD (chronic obstructive pulmonary disease) Current Visit: No Status: Acute Assessment and Plan: Stable. No evidence of an acute exacerbation. Continue home medications. (5) AG (acute kidney injury) Current Visit: No Status: Acute Assessment and Plan: Mildly elevated creatinine. Cr 1.38 and same as 05/14/2018. Will monitor daily. Will switch to IV Lasix. On Lasix due to CHF exacerbation and monitor response. (6) Dyspnea Current Visit: Yes Status: Acute Assessment and Plan: Dyspnea likely secondary to CHF exacerbation. Patient's chest x-ray was relatively unremarkable. Continue supportive care. Treating for CHF exacerbation DVT Prophylaxis: Xarelto - Summary of Assessment and Plan Summary of Assessment and Plan: History of present illness: Dr. Cobian Mr. Issa is a 68 year old male with multiple commodities including CHF, diabetes, COPD, CAD among others who was recently discharged from [place] 2 days ago to a rehabilitation facility and now returns due to worsening lower extremity edema. Per the patient he was not happy with the care he was receiving. His reports that he has gained 10 pounds over the past 2 days while being off his diuretics which were held apparently because his creatinine was elevated. He states he has had worsening lower extremity edema to the extent that he can no longer put on his shoes. Patient does endorse some cough and shortness of breath with exertion and orthopnea. Chest x-ray was performed which did not appear changed from previous x-ray. Labs were otherwise unremarka ble. - Time Spent with Patient Total time spent is greater than 50% in coordination of care (as documented) at patient's floor/unit and/or counseling patient: less than 15 minutes Plan of Care Discussed with: patient Internal Medicine: Result - Labs CBC & Chem 7: 05/14/18 04:45 05/14/18 04:45 - ABG Interpretation ABG results: PT/INR, D-dimer D-Dimer 1257 ng/mLFEU (0-500) H 05/13/18 18:50 Consult Discharge Plan - Plan [facility]errals: [facility] [Primary Care Provider[facility] - (going to [place] facility for Re[place]) (3) Edema Qualifiers: Edema type: generalized Qualified Code(s): R60.1 - Generalized edema (4) COPD (chronic obstructive pulmonary disease) Qualifiers: Emphysema type: unspecified Qualified Code(s): J43.9 - Emphysema, unspecified (6) Dyspnea Qualifiers: Dyspnea type: unspecified Qualified Code(s): R06.00 - Dyspnea, unspecified
--- NOTE | 2018-05-15 19:58 | Electrocardiograph Report ---
[address] [place] [address] Test Date: 2018-05-13 Pat Name: Dakota Issa Department: [id number] Room: 2A37 Gender: M [employer]: : 1950 Requested By: Wu Ledesma Order Number: [id number] Reading MD: Rita Nix Measurements Intervals [place] Rate: 71 P: MA: 118 QRS: 85 QRSD: 110 T: 68 QT: 426 QTc: 463 Interpretive Statements Atrial-paced complexes Abnormal R-wave progression, early transition Probable inferior infarct, age indeterminate Electronically Signed On 05-15-2018 19:56:35 EST by Rita Nix
[2018-05-15] MEDS: Metoprolol XL (24 HR) Succ 25 MG TAB.ER.24H PO SCH (22:47)
[2018-05-15] MEDS: Melatonin 3 MG TABLET PO SCH (22:49)
[2018-05-16] MEDS: Ipratropium/Albuterol Neb 3 ML IH SCH ×4 (04:11→21:56)
[2018-05-16] MEDS: traZODone 50 MG TABLET PO SCH ×2 (05:14→21:27)
[2018-05-16] MEDS: Insulin LISPRO 300 UNITS/3 ML VIAL SQ SCH ×4 (08:28→21:28)
[2018-05-16] MEDS: Aspirin 81 MG TAB.CHEW PO SCH (08:29)
[2018-05-16] MEDS: tiZANidine 4 MG TABLET PO SCH ×2 (08:29→21:27)
[2018-05-16] MEDS: Gabapentin 400 MG CAPSULE PO SCH ×2 (08:29→21:26)
[2018-05-16] MEDS: *HR* Amiodarone 200 MG TABLET PO SCH (08:30)
[2018-05-16] MEDS: Finasteride 5 MG TABLET PO SCH (08:30)
[2018-05-16] MEDS: Furosemide 40 MG/4 ML VIAL IVP SCH (08:30)
[2018-05-16] MEDS: *HR* Rivaroxaban 10 MG TABLET PO SCH (17:15)
--- NOTE | 2018-05-16 18:20 | Internal Med Progress Note ---
Hospitalist Progress Note - Encounter Date of Encounter: 05/16/18 Time of Encounter: 18:19 - Subjective Interval History: Pt denies fever or chills. He states his leg swelling has improved some. He denies CP ro SOB. - Exam Vitals: Temp Pulse Resp BP Pulse Ox 98.2 F 76 20 100/60 96 05/16/18 15:30 05/16/18 10:57 05/16/18 16:02 05/16/18 15:30 05/16/18 16:02 Exam: General: Alert and oriented 3; lying in bed in no acute distress HEENT:EOM, pupils equal, round and reactive. Cardiovascular:Normal S1 & S2, no rubs, murmurs or gallops. No JVD. Pulse regular. Lungs:Normal breath sounds, no wheezes or crackles. Abdomen:Soft, non-tender, no rigidity. Extremities: 2+ lower extremity edema bilaterally up to the knees. Neurological:Normal cognition and motor skills. Pulses:Carotid and radial pulses normal +2. Skin:Normal color, no rash, no lesions. - Assessment and Plan (1) Paroxysmal a-fib Current Visit: No Status: Chronic Assessment and Plan: Rate controlled. On Xarelto and metoprolol. (2) Acute on chronic diastolic (congestive) heart failure Current Visit: No Status: Acute Assessment and Plan: Mild CHF exacerbation with a reported 10 pound weight gain in the setting of worsening lower extremity edema. Per reports patient was not receiving his Lasix at his rehabilitation center due to concern of his elevated creatinine. Patient also is noncompliant with his fluid restriction. Patient had a recent echo on April 28 which showed a left ventricular ejection fraction of 60-65%. There were no reports of diastolic dysfunction. Patient was given 40 mg of Lasix IV push. Continue with strict I's and O's; daily weights; fluid restriction to 1800cc/day Patient appears to have been on 40 mg by mouth Lasix. We will resume patient's home dose of his Lasix and monitor once doses been reconciled. (3) Edema Current Visit: Yes Status: Acute Assessment and Plan: Pt presented with worsening lower extremity edema and 10 pound weight gain likel y secondary to CHF exacerbation. Pt was reportedly holding his diuretics and has history of noncompliance with fluid restrictions. Had been resumed on Lasix PO but will switch to IV Lasix for now. Pt states edema much improved. HE may resume home dose lasix at discharge. (4) COPD (chronic obstructive pulmonary disease) Current Visit: No Status: Acute Assessment and Plan: Stable. No evidence of an acute exacerbation. Continue home medications. (5) AG (acute kidney injury) Current Visit: No Status: Acute Assessment and Plan: Mildly elevated creatinine. Cr 1.38 and same as 05/14/2018. Will monitor daily. Will switch to IV Lasix. On Lasix due to CHF exacerbation and monitor response. (6) Dyspnea Current Visit: Yes Status: Acute Assessment and Plan: Dyspnea likely secondary to CHF exacerbation. Patient's chest x-ray was relatively unremarkable. Continue supportive care. Treating for CHF exacerbation DVT Prophylaxis: Xarelto - Summary of Assessment and Plan Summary of Assessment and Plan: History of present illness: Dr. Cobian Mr. Issa is a 68 year old male with multiple commodities including CHF, diabetes, COPD, CAD among others who was recently discharged from [place] 2 days ago to a rehabilitation facility and now returns due to worsening lower extremity edema. Per the patient he was not happy with the care he was r eceiving. His reports that he has gained 10 pounds over the past 2 days while being off his diuretics which were held apparently because his creatinine was elevated. He states he has had worsening lower extremity edema to the extent that he can no longer put on his shoes. Patient does endorse some cough and shortness of breath with exertion and orthopnea. Chest x-ray was performed which did not appear changed from previous x-ray. Labs were otherwise unremarkable. - Time Spent with Patient Total time spent is greater than 50% in coordination of care (as documented) at patient's floor/unit and/or counseling patient: less than 15 minutes Plan of Care Discussed with: patient Internal Medicine: Result - Labs CBC & Chem 7: 05/14/18 04:45 05/14/18 04:45 - ABG Interpretation ABG results: PT/INR, D-dimer D-Dimer 1257 ng/mLFEU (0-500) H 05/13/18 18:50 Consult Discharge Plan - Plan Referrals: [facility] [Primary Care Provider] - (going to [place] facility for Rehab) (3) Edema Qualifiers: Edema type: generalized Qualified Code(s): R60.1 - Generalized edema (4) COPD (chronic obstructive pulmonary disease) Qualifiers: Emphysema type: unspecified Qualified Code(s): J43.9 - Emphysema, unspecified (6) Dyspnea Qualifiers: Dyspnea type: unspecified Qualified Code(s): R06.00 - Dyspnea, unspecified
[2018-05-16] MEDS: Melatonin 3 MG TABLET PO SCH (21:27)
[2018-05-16] MEDS: Metoprolol XL (24 HR) Succ 25 MG TAB.ER.24H PO SCH (21:28)
[2018-05-16] MEDS: *HR* OxyCODONE Immed Rel 5 MG TABLET PO PRN (23:20)
[2018-05-17] MEDS: Ipratropium/Albuterol Neb 3 ML IH SCH ×2 (04:11→11:29)
[2018-05-17 07:38] VITALS: BP 100/66
[2018-05-17] MEDS: Insulin LISPRO 300 UNITS/3 ML VIAL SQ SCH (07:57)
[2018-05-17] MEDS: Furosemide 40 MG/4 ML VIAL IVP SCH (07:58)
[2018-05-17] MEDS: tiZANidine 4 MG TABLET PO SCH (07:58)
[2018-05-17] MEDS: *HR* Amiodarone 200 MG TABLET PO SCH (07:58)
[2018-05-17] MEDS: Gabapentin 400 MG CAPSULE PO SCH (07:59)
[2018-05-17] MEDS: Aspirin 81 MG TAB.CHEW PO SCH (07:59)
[2018-05-17] MEDS: Finasteride 5 MG TABLET PO SCH (07:59)
[2018-05-17] MEDS: *HR* OxyCODONE Immed Rel 5 MG TABLET PO PRN (08:17)
--- NOTE | 2018-05-17 10:25 | Discharge Summary ---
- NOTES TO OUTPATIENT PROVIDER Notes to Outpatient Provider: PCP in 5 to 7 days Orders not resulted at time of discharge: 05/21/2018 VQ scan out pt DX: elevated D dimer Date of Encounter: 05/17/18 Time of Encounter: 10:22 - Discharge Diagnosis (1) Paroxysmal a-fib Priority: Secondary Status: Chronic Assessment and Plan: Rate controlled. On Xarelto and metoprolol. (2) Acute on chronic diastolic (congestive) heart failure Priority: Primary Status: Acute Assessment and Plan: Mild CHF exacerbation with a reported 10 pound weight gain in the setting of worsening lower extremity edema. Per reports patient was not receiving his Lasix at his rehabilitation center due to concern of his elevated creatinine. Patient also is noncompliant with his fluid restriction. Patient had a recent echo on April 28 which showed a left ventricular ejection fraction of 60-65%. There were no reports of diastolic dysfunction. Patient was given 40 mg of Lasix IV push. Continue with strict I's and O's; daily weights; fluid restriction to 1800cc/day Patient appears to have been on 40 mg by mouth Lasix. We will resume patient's home dose of his Lasix and monitor once doses been reconciled. (3) Edema Priority: Primary Status: Acute Assessment and Plan: Pt presented with worsening lower extremity edema and 10 pound weight gain likely secondary to CHF exacerbation. Pt was reportedly holding his diuretics and has history of noncompliance with fluid restrictions. Had been resumed on Lasix PO but will switch to IV Lasix for now. Pt states edema much improved. HE may resume home dose lasix at discharge. Qualifiers: Edema type: generalized Qualified Code(s): R60.1 - Generalized edema (4) COPD (chronic obstructive pulmonary disease) Priority: Secondary Status: Acute Assessment and Plan: Stable. No evidence of an acute exacerbation. Continue home medications. Qualifiers: Emphysema type: unspecified Qualified Code(s): J43.9 - Emphysema, unspe cified (5) AG (acute kidney injury) Priority: Primary Status: Acute Assessment and Plan: Mildly elevated creatinine. Cr 1.38 and same as 05/14/2018. Pt has history of CKD stage III. Will switch from IV Lasix to PO Lasix. On Lasix due to CHF exacerbation and monitor response. (6) Dyspnea Priority: Primary Status: Resolved Assessment and Plan: Dyspnea likely secondary to CHF exacerbation. Patient's chest x-ray was relatively unremarkable. Continue supportive care. Treating for CHF exacerbation Qualifiers: Dyspnea type: unspecified Qualified Code(s): R06.00 - Dyspnea, unspecified (7) Elevated d-dimer Priority: Primary Status: Acute Assessment and Plan: Bilateral LE doppler neg. Pt is on Xarelto Pt currently asymptomatic. Dyspnea due to CHF and resolved following lasix. May check [facility] if [facility] however doubt PE at this point. Hospital course: History of present illness: Dr. Cobian Mr. Issa is a 68 year old male with multiple commodities including CHF, diabetes, COPD, CAD among others who was recently discharged from [facility] 2 days ago to a rehabilitation facility and now returns due to worsening lower extremity edema. Per the patient he was not happy with the care he was rec eiving. His reports that he has gained 10 pounds over the past 2 days while being off his diuretics which were held apparently because his creatinine was elevated. He states he has had worsening lower extremity edema to the extent that he can no longer put on his shoes. Patient does endorse some cough and shortness of breath with exertion and orthopnea. Chest x-ray was performed which did not appear changed from previous x-ray. Labs were otherwise unremarkable. Discharge discussed with: patient - Time Spent with Patient Total time spent providing and/or coordinating discharge services: Greater than 30 minutes - Discharge Medications Home Medications: Amiodarone [Cordarone] 200 mg PO DAILY 04/04/18 [History] Aspirin 81 mg PO DAILY 04/04/18 [History] Atorvastatin [Lipitor] 40 mg PO HS 04/04/18 [History] Cholecalciferol (Vitamin D3) [Vitamin D3] 2,000 unit PO DAILY 04/04/18 [History] DULoxetine [Cymbalta] 30 mg PO DAILY 04/04/18 [History] Finasteride [Proscar] 5 mg PO DAILY 04/04/18 [History] Gabapentin [Neurontin] 400 mg PO BID 04/04/18 [History] Lubiprostone [Amitiza] 16 mcg PO 0800,1700 04/04/18 [History] Melatonin [Melatin] 9 mg PO HS 04/04/18 [History] Memantine HCl 10 mg PO BID 04/04/18 [History] Metoprolol XL (24 HR) Succ [Toprol Xl] 12.5 mg PO HS 04/04/18 [History] Pantoprazole Sodium [Protonix] 40 mg PO DAILY 04/04/18 [History] Rivaroxaban [Xarelto] 20 mg PO DAILY 04/04/18 [History] Sennosides/Docusate Sodium [Colace 2-in-1 Tablet] 1 each PO Q12H PRN 04/04/18 [History] Simethicone [Bicarsim] 80 mg PO Q8H PRN 04/04/18 [History] Tamsulosin HCl [Flomax] 0.4 mg PO BID 04/04/18 [History] Tizanidine HCl [Zanaflex] 2 mg PO BID 04/04/18 [History] Trazodone HCl 200 mg PO HS 04/04/18 [History] Losartan [Cozaar] 25 mg PO DAILY 04/24/18 [History] Tiotropium Br/Olodaterol HCl [Stiolto Respimat Inhal [place]] 2 puff IH DAILY 04/24/18 [History] Insulin ASPART [NovoLOG] 0 unit SQ TIDWM PRN 04/25/18 [History] Furosemide [Lasix] 40 mg PO DAILY #0 04/28/18 [Rx] OxyCODONE Immed Rel [Roxicodone 10 MG] 10 mg PO Q8H PRN 05/14/18 [History] Allergies/Adverse Reactions: Allergy/AdvReac Type Severity Reaction Status Date / Time IVP DYE Allergy Severe Anaphylaxis Uncoded 05/13/18 15:28 Date of admission: 05/13/18 20:14 Primary care physician: [facility] Consults: 05/16/18 09:49 Consult to Physical Therapy [CONS] Routine Comment: Evaluate, develop and implement POC Reason for Consult: eval for poss [facility] placement Does patient have active BEDREST order?: No Is patient medically & hemodynamically stable?: Yes Discharging clinician: Kelsie Gibson Anticipated date of discharge: 05/17/18 - Constitutional Vitals: Temp Pulse Resp BP Pulse Ox 98.4 F 65 18 100/66 98 05/17/18 07:37 05/17/18 07:37 05/17/18 07:37 05/17/18 07:37 05/17/18 08:19 Exam: General: Alert and oriented 3; lying in bed in no acute distress HEENT:EOM, pupils equal, round and reactive. Cardiovascular:Normal S1 & S2, no rubs, murmurs or gallops. No JVD. Pulse regular. Lungs:Normal breath sounds, no wheezes or crackles. Abdomen:Soft, non-tender, no rigidity. Extremities: 2+ lower extremity edema bilaterally up to the knees. Neurological:Normal cognition and motor skills. Pulses:Carotid and radial pulses normal +2. Skin:Normal color, no rash, no lesions. - Patient Status Disposition: Transfer SNF Condition: Fair Overall status at discharge: patient is back to baseline - Discharge Instructions Instructions: Heart Failure (DC) Follow Up With: [facility] [Primary Care Provider[facility] - ([facility] - Diet and Activity Activity: increase activity as tolerated Diet: low fat, low cholesterol, low salt diet
--- NOTE | 2018-05-17 10:28 | Physician Discharge Referral ---
ExtendedCare Referral Info Transfer To: [facility] Provider in Charge after Transfer: PCP - Diagnosis (1) Paroxysmal a-fib Priority: Secondary Status: Chronic (2) Acute on chronic diastolic (congestive) heart failure Priority: Primary Status: Acute (3) Edema Priority: Primary Status: Acute (4) COPD (chronic obstructive pulmonary disease) Status: Acute (5) AG (acute kidney injury) Priority: Secondary Status: Acute (6) Dyspnea Priority: Primary Status: Resolved - Transfer Medications Home Medications: Amiodarone [Cordarone] 200 mg PO DAILY 04/04/18 [History] Aspirin 81 mg PO DAILY 04/04/18 [History] Atorvastatin [Lipitor] 40 mg PO HS 04/04/18 [History] Cholecalciferol (Vitamin D3) [Vitamin D3] 2,000 unit PO DAILY 04/04/18 [History] DULoxetine [Cymbalta] 30 mg PO DAILY 04/04/18 [History] Finasteride [Proscar] 5 mg PO DAILY 04/04/18 [History] Gabapentin [Neurontin] 400 mg PO BID 04/04/18 [History] Lubiprostone [Amitiza] 16 mcg PO 0800,1700 04/04/18 [History] Melatonin [Melatin] 9 mg PO HS 04/04/18 [History] Memantine HCl 10 mg PO BID 04/04/18 [History] Metoprolol XL (24 HR) Succ [Toprol Xl] 12.5 mg PO HS 04/04/18 [History] Pantoprazole Sodium [Protonix] 40 mg PO DAILY 04/04/18 [History] Rivaroxaban [Xarelto] 20 mg PO DAILY 04/04/18 [History] Sennosides/Docusate Sodium [Colace 2-in-1 Tablet] 1 each PO Q12H PRN 04/04/18 [History] Simethicone [Bicarsim] 80 mg PO Q8H PRN 04/04/18 [History] Tamsulosin HCl [Flomax] 0.4 mg PO BID 04/04/18 [History] Tizanidine HCl [Zanaflex] 2 mg PO BID 04/04/18 [History] Trazodone HCl 200 mg PO HS 04/04/18 [History] Losartan [Cozaar] 25 mg PO DAILY 04/24/18 [History] Tiotropium Br/Olodaterol HCl [Stiolto Respimat Inhal [place]] 2 puff IH DAILY 04/24/18 [History] Insulin ASPART [NovoLOG] 0 unit SQ TIDWM PRN 04/25/18 [History] Furosemide [Lasix] 40 mg PO DAILY #0 04/28/18 [Rx] OxyCODONE Immed Rel [Roxicodone 10 MG] 10 mg PO Q8H PRN 05/14/18 [History] Allergies/Adverse Reactions: Allergy/AdvReac Type Severity Reaction Status Date / Time IVP DYE Allergy Severe Anaphylaxis Uncoded 05/13/18 15:28 - Respiratory Orders Oxygen / L per min Smoking Cessation: Smoking cessation has been advised. For more information, call the [facility] Tobacco Quit Line at 3-501-YXPY-NOW. - Advance Directives Code Status: Full Code - Mobility Orders Chair - Diet Orders Cardiac CERTIFICATION: I certify that the transfer of the above named patient to an Extended Care Facility is necessary for the continuing treatment of the diagnosis listed. The above information is true and accurate reflection of patient's current condition. Confidential - Redisclosure prohibited without a patient's written consent.
== END 2018-05-17 12:47 ==
LOC: EMEROOARM 15:04 → 2ANU 15:04
PROVIDERS: ADMIT Internal Medicine; ATTEND Internal Medicine

== ENCOUNTER 2018-06-30 14:29 | Observation (INO) ==
--- NOTE | 2018-06-30 15:01 | Emergency Department Note ---
Disposition Clinical Impression: Atypical chest pain, Confusion, Sick sinus syndrome, AG (acute kidney injury) Hypotension Qualifiers: Hypotension type: idiopathic hypotension Qualified Code(s): I95.0 - Idiopathic hypotension Altered mental status Qualifiers: Altered mental status type: unspecified Qualified Code(s): R41.82 - Altered mental status, unspecified [id number] kidney injury Qualifiers: Acute renal failure type: unspecified Chronic kidney disease stage: unspecified stage Qualified Code(s): N17.9 - Acute kidney failure, unspecified Disposition: Admitted As Inpatient Condition: Serious Time of Disposition: 17:17 General Adult HPI - General Chief complaint: ED Chest Pain Stated complaint: chets pain, cough Time Seen by Provider: 06/30/18 14:32 Source: patient Nursing Notes Reviewed: Yes Vital Signs Reviewed: Yes - History of Present Illness HPI Narrative: Mr Issa is a 68yo male who is here with his . She states that he has had chest pain this 1030 this AM. It is substernal and radiating to right arm. Nothing makes it better or worse. She gave him a baby aspirin. He denies any diaphoresis, n/v/d, abd pain. He also has episodes of syncope associated with his symptoms. This has been going on for almost a month. He has these episodes where he slumps over and "loses consciousness." He had one episode this morning where he slumped over and was nonresponsive to her. took BP and it was SBP in the 60's at home. He continued to be very confused and didn't really respond to the at that time. He also has had a cough that has been worsening since x-mas and he has brown sputum production associated with it. He is chronically SOB on home oxygen for COPD. hasn't had to turn up oxygen. He is unable to complete ADL's due to SOB. Pt Subjective Complaint: chest pain Pain Scale: 10 - Related Data Home Medications Medication Instructions Recorded Confirmed Amiodarone [Cordarone] 200 mg PO DAILY 04/04/18 06/30/18 Aspirin 81 mg PO DAILY 04/04/18 06/30/18 Atorvastatin [Lipitor] 40 mg PO HS 04/04/18 06/30/18 Cholecalciferol (Vitamin D3) 2,000 unit PO DAILY 04/04/18 06/30/18 [Vitamin D3] DULoxetine [Cymbalta] 30 mg PO DAILY 04/04/18 06/30/18 Finasteride [Proscar] 5 mg PO DAILY 04/04/18 06/30/18 Lubiprostone [Amitiza] 16 mcg PO 0800,1700 04/04/18 06/30/18 Melatonin [Melatin] 9 mg PO HS 04/04/18 06/30/18 Memantine HCl 10 mg PO BID 04/04/18 06/30/18 Metoprolol XL (24 HR) Succ [Toprol 12.5 mg PO HS 04/04/18 06/30/18 Xl] Pantoprazole Sodium [Protonix] 40 mg PO DAILY 04/04/18 06/30/18 Rivaroxaban [Xarelto] 20 mg PO DAILY 04/04/18 06/30/18 Sennosides/Docusate Sodium [Colace 1 each PO Q12H PRN 04/04/18 06/30/18 2-in-1 Tablet] Simethicone [Bicarsim] 80 mg PO Q8H PRN 04/04/18 06/30/18 Tamsulosin HCl [Flomax] 0.4 mg PO BID 04/04/18 06/30/18 Tizanidine HCl [Zanaflex] 2 mg PO BID 04/04/18 06/30/18 Trazodone HCl 200 mg PO HS 04/04/18 06/30/18 Losartan [Cozaar] 25 mg PO DAILY 04/24/18 06/30/18 Tiotropium Br/Olodaterol HCl 2 puff IH DAILY 04/24/18 06/30/18 [Stiolto Respimat Inhal [place]] Insulin ASPART [NovoLOG] 0 unit SQ TIDWM PRN 04/25/18 06/30/18 Fluticasone/Salmeterol [Advair 1 puff IH BID 06/30/18 06/30/18 250-50 Diskus] Furosemide [Lasix] 20 mg PO DAILY 06/30/18 06/30/18 Gabapentin [Neurontin] 400 mg PO BID 06/30/18 06/30/18 LORazepam [Ativan] 0.5 mg PO HS PRN 06/30/18 06/30/18 Potassium Chloride [K-Tab ER] 20 meq PO TID 06/30/18 06/30/18 Spironolactone [Aldactone] 25 mg PO DAILY 06/30/18 06/30/18 metOLazone [Zaroxolyn] 5 mg PO DAILY PRN 06/30/18 06/30/18 Allergies Allergy/AdvReac Type Severity Reaction Status Date / Time IVP DYE Allergy Severe Anaphylaxis Uncoded 05/13/18 15:28 Constitutional: Reports: fever, chills, weakness Eyes: Denies: eye pain Cardiovascular: Reports: chest pain, dyspnea on exertion, syncope Respiratory: Reports: cough, dyspnea, wheezes Gastrointestinal: Denies: abdominal pain, nausea, vomiting, diarrhea Genitourinary: Denies: urgency, dysuria Musculoskeletal: Reports: back pain Integumentary: Denies: lesions Neurological: Reports: headache, weakness, numbness, confusion Psychiatric: Denies: anxiety Endocrine: Reports: fatigue Hematological/Lymphatic: Denies: easy bleeding, easy bruising Past Medical History - Past Medical History Medical history: Reports: arthritis, atrial fibrillation, CHF, COPD, coronary artery disease, CVA, diabetes, GERD, hyperlipidemia, hypertension, pulmonary embolus, renal disease Surgical history: Reports: cholecystectomy, herniorrhaphy, knee replacement, orthopedic, other, pacemaker/AICD Psychiatric history: Reports: anxiety, bipolar, depression, panic disorder - Social History Smoking Status: Former smoker Smokeless Tobacco Status: No Alcohol use: Reports: none Drug use: Reports: none Physical Exam - General General appearance: alert, lethargic, in distress, other (lethargic elderly male laying in bed, hard to arouse, at bedside and answers most of questions) - Head Head exam: atraumatic, normocephalic, normal inspection - Eye Eye exam: Present: normal appearance. Absent: scleral icterus - ENT ENT exam: normal exam, mucous membranes moist - Neck Neck exam: Present: normal inspection, trachea midline - Chest Chest inspection: Present: normal inspection, symmetric chest wall rise - Respiratory Respiratory exam: Present: normal lung sounds bilaterally. Absent: respiratory distress, wheezes, accessory muscle use - Cardiovascular Cardiovascular exam: Present: other (rrr, s1s2, clear to auscultation, pacermaker scar shows no signs of infxn or erythema) - Abdominal Exam Abdominal exam: Present: soft, tenderness (diffuse tenderness, more so on the right side). Absent: distention, guarding, rebound Abdominal tenderness: Present: diffuse, moderate - Extremities Exam Extremities exam: Present: normal capillary refill, pedal edema (bilateral 2+ edema) - Expanded Lower Extremity Exam Lower leg exam: Present: other (edema 2+ bilateral LE). Absent: Homans' sign - Neurological Exam Neurological exam: Present: other (hard to arouse, will not follow command without prodding, responds to sternal rub). Absent: alert - Psychiatric Psychiatric exam: Present: other (lethargic elderly male, falls asleep during questioning, hard to arouse) - Skin Skin exam: Present: warm, dry, intact Course Course Narrative: Mr Issa is a 68yo male who is here for chest pain and syncope as per the . He has been having episodes of hypotension, SBP in the 60's, this morning as reported by the . Also she reports episodes of confusion. He will be worked up for sources of AMS, including infxn and stroke. Heat CT will be ordred once BP increaes. Fluid bolus given. Will rule out pneumonia, UTI and ACS. Likely to be admitted. Vital Signs Temperature 98.0 F 06/30/18 14:35 Pulse Rate 65 06/30/18 14:35 Respiratory Rate 20 06/30/18 14:35 Blood Pressure 91/59 06/30/18 14:35 O2 Sat by Pulse Oximetry 94 06/30/18 14:35 Temperature 98.0 F 06/30/18 14:35 Pulse Rate 65 06/30/18 14:35 Respiratory Rate 16 06/30/18 17:28 Blood Pressure 96/66 06/30/18 17:28 O2 Sat by Pulse Oximetry 94 06/30/18 14:35 Oxygen Delivery Oxygen Delivery Room Air Medical Decision Making - [facility] Narrative Medical decision making narrative: Pt here with at bedside. He has been having chest pain since this morning. Has also been having syncopal episodes where he "loses consciousness" and gets very confused. Pt was given 1L fluid bolus due to hypotension, BP on arrival was 91/59. reports SBP in the 60's and 70's this morning. Troponin (-). EKG showed no ST elevation. So far all workup has been negative for infxn. Pt has AG, creatinine 1.73 which is elevated from baseline. CT head negative for acute abnormality. CXR negative for acute process. UA still pending. BNP pending. Pt to be admitted to hospitalist service for further wor kup and evaluation of syncope and chest pain. Hospitalist accepted the admission. Chest X-Ray 06/30/18 14:32 IMPRESSION: Persistent right basilar atelectasis or fibrosis. No new pulmonary process appreciated. D/ / 06/30/2018 15:43:58 Kingston Prince MD / giorgio Interpreting Provider: Kingston Prince MD Head CT 06/30/18 15:32 IMPRESSION: No acute intracranial abnormality. Chronic maxillary sinus disease. D/ / 06/30/2018 16:44:09 Kingston Prince MD / giorgio Interpreting Provider: Kingston Prince MD - Medical Records Medical records reviewed: Yes I reviewed the patient's medical records. - Lab Data Lab results reviewed: Yes I reviewed the patient's lab results. Result diagrams: 06/30/18 15:05 06/30/18 14:59 Lab Results 06/30/18 06/30/18 06/30/18 Range/Units 14:59 15:05 15:06 WBC 9.3 (4.3-11.1) K/mcL RBC 4.65 (4.19-5.50) M/mcL Hgb 12.3 L (12.9-16.9) g/dL Hct 39.1 (37.5-50.1) % MCV 84.1 (83.0-100.0) fL MCH 26.5 L (28.0-33.3) pg MCHC 31.5 L (31.6-35.5) g/dL RDW 15.6 H (11.5-14.5) % Plt Count 362 (140-400) K/mcL MPV 9.5 (9.4-12.4) fL Immature Gran % 0.3 (0-4) % Seg Neutrophils % 73.3 % Lymphocytes % 11.5 % Monocytes % 10.4 % Eosinophils % 4.1 % Basophils % 0.4 % Neutrophils # 6.8 (1.6-8.9) K/mcL Lymphocytes # 1.1 (0.6-4.6) K/mcL Monocytes # 1.0 (0.0-1.3) K/mcL Eosinophils # 0.4 (0.0-0.6) K/mcL Basophils # 0.0 (0.0-0.2) K/mcL PT 33.6 H (9.4-12.1) Seconds INR 3.0 Sodium 137 (136-145) mEq/L Potassium 3.5 (3.5-5.1) mEq/L Chloride 97 L (98-107) mEq/L Carbon Dioxide 31 H (23-29) mEq/L BUN 25 H (8-23) mg/dL Creatinine 1.73 H (0.70-1.30) mg/dL Est GFR ( Amer) 48 L (> 60) Est GFR (Non-Af Amer) 39 L (> 60) BUN/Creatinine Ratio 14 (6-26) Glucose 104 (70-105) mg/dL Calculated Osmolality 289 (280-300) Lactic Acid (0.5-2.2) mmol/L Calcium 8.7 (8.6-10.3) mg/dL Total Bilirubin 0.4 (0.3-1.0) mg/dL Direct Bilirubin 0.1 (0.0-0.2) mg/dL Indirect Bilirubin 0.3 (0.0-1.2) mg/dL AST 17 (13-39) Units/L ALT 21 (7-52) Units/L Alkaline Phosphatase 81 (34-104) Units/L Ammonia (16-53) mcmol/L Troponin I < 0.03 (< 0.04) ng/mL Serum Total Protein 7.0 (6.4-8.9) g/dL Albumin 3.6 (3.5-5.7) g/dL Globulin 3.4 (2.4-3.5) g/dL Albumin/Globulin Ratio 1.1 (1.1-2.2) Stool Occult Bld Scrn (Negative) 06/30/18 06/30/18 06/30/18 Range/Units 15:20 15:28 15:28 WBC (4.3-11.1) K/mcL RBC (4.19-5.50) M/mcL Hgb (12.9-16.9) g/dL Hct (37.5-50.1) % MCV (83.0-100.0) fL MCH (28.0-33.3) pg MCHC (31.6-35.5) g/dL RDW (11.5-14.5) % Plt Count (140-400) K/mcL MPV (9.4-12.4) fL Immature Gran % (0-4) % Seg Neutrophils % % Lymphocytes % % Monocytes % % Eosinophils % % Basophils % % Neutrophils # (1.6-8.9) K/mcL Lymphocytes # (0.6-4.6) K/mcL Monocytes # (0.0-1.3) K/mcL Eosinophils # (0.0-0.6) K/mcL Basophils # (0.0-0.2) K/mcL PT (9.4-12.1) Seconds INR Sodium (136-145) mEq/L Potassium (3.5-5.1) mEq/L Chloride (98-107) mEq/L Carbon Dioxide (23-29) mEq/L BUN (8-23) mg/dL Creatinine (0.70-1.30) mg/dL Est GFR ( Amer) (> 60) Est GFR (Non-Af Amer) (> 60) BUN/Creatinine Ratio (6-26) Glucose (70-105) mg/dL Calculated Osmolality (280-300) Lactic Acid 0.9 (0.5-2.2) mmol/L Calcium (8.6-10.3) mg/dL Total Bilirubin (0.3-1.0) mg/dL Direct Bilirubin (0.0-0.2) mg/dL Indirect Bilirubin (0.0-1.2) mg/dL AST (13-39) Units/L ALT (7-52) Units/L Alkaline Phosphatase (34-104) Units/L Ammonia 28 (16-53) mcmol/L Troponin I (< 0.04) ng/mL Serum Total Protein (6.4-8.9) g/dL Albumin (3.5-5.7) g/dL Globulin (2.4-3.5) g/dL Albumin/Globulin Ratio (1.1-2.2) Stool Occult Bld Scrn Negative (Negative) - Radiology Data Radiology results reviewed: Yes I reviewed the patient's radiology results. - EKG Data EKG #1 EKG attestation: Yes I reviewed and interpreted this EKG. EKG results narrative: HR 70, atrial paced complexes, QTc 472, no ST elevation or depression noted Attestation Statement - Attestation Attestation: This documentation is done with the assistance of Dragon dictation. Despite efforts made to ensure accuracy, there may be inaccuracies in windows infrastructure engineer or spelling and typographical errors. I examined this patient and my medical decision-making was reviewed with the Resident Physician. I agree with the documented findings, disposition and treatment plan as described except to the extent set forth below. Patient seen and evaluated by Dr. Mon myself, agree with his evaluation management plan, I supervised the care the patient's stay. Patient presents today with his . He describes having 3 syncopal episodes in the last 3 weeks. He states that he feels lightheaded and describes him passing out today. She states she checked his pressure and it was 60 the time. He rates in the 80s. She says on a good day his blood pressure in the 110s. Is also had some intermittent chest pain with this also [facility] They said they could not find an etiology except to maybe he was dehydrated. Check labs on him getting fluids to cardiac workup on him and he will need admission.
[2018-06-30] MEDS ORDERED: 0.9 % Sodium Chloride 1,000 ML IVC ONE (15:05)
[2018-06-30 15:46] LABS: Prothrombin Time 33.6 Seconds (9.4-12.1)
[2018-06-30 15:49] LABS: Basophils % 0.4 %; Eosinophils # 0.4 K/mcL (0.0-0.6); Eosinophils % 4.1 %; Hematocrit 39.1 % (37.5-50.1); Hemoglobin 12.3 g/dL (12.9-16.9); Immature Granulocytes % 0.3 % (0-4); Lymphocytes # 1.1 K/mcL (0.6-4.6); Lymphocytes % 11.5 %; Mean Corpuscular HGB Conc 31.5 g/dL (31.6-35.5); Mean Corpuscular Hemoglobin 26.5 pg (28.0-33.3); Mean Corpuscular Volume 84.1 fL (83.0-100.0); Mean Platelet Volume 9.5 fL (9.4-12.4); Monocytes % 10.4 %; Neutrophils # 6.8 K/mcL (1.6-8.9); Platelet Count 362 K/mcL (140-400); Red Blood Count 4.65 M/mcL (4.19-5.50); Red Cell Distribution Width 15.6 % (11.5-14.5); Segmented Neutrophils % 73.3 %
[2018-06-30 15:52] LABS: Troponin I < 0.03 ng/mL (< 0.04)
[2018-06-30 16:24] LABS: Alanine Aminotransferase 21 Units/L (7-52); Albumin 3.6 g/dL (3.5-5.7); Albumin/Globulin Ratio 1.1 (1.1-2.2); Alkaline Phosphatase 81 Units/L (34-104); Aspartate Amino Transferase 17 Units/L (13-39); Bilirubin,Direct 0.1 mg/dL (0.0-0.2); Bilirubin,Indirect 0.3 mg/dL (0.0-1.2); Bilirubin,Total 0.4 mg/dL (0.3-1.0); Globulin 3.4 g/dL (2.4-3.5)
[2018-06-30 16:30] LABS: BUN/Creatinine Ratio 14 (6-26); Blood Urea Nitrogen 25 mg/dL (8-23); Calcium 8.7 mg/dL (8.6-10.3); Carbon Dioxide 31 mEq/L (23-29); Chloride 97 mEq/L (98-107); Glucose 104 mg/dL (70-105); Osmolality,Calculated 289 (280-300); Potassium 3.5 mEq/L (3.5-5.1); Sodium 137 mEq/L (136-145); eGFR For Non-African Americans 39 (> 60)
--- NOTE | 2018-06-30 17:52 | Internal Med History&Physical ---
Date of Encounter: 06/30/18 Time of Encounter: 17:52 Internal Medicine - H&P: HPI Chief complaint: chest pain Admitted From: Home Plans for Post Hospital Care: Home History of present illness: Mr. Issa is a 68 year old male wtih past medical history of COPD, chronic respiratory failure on 2L, CVA x 3, pacemaker, afib o Xarelto and Amiodarone), CKD, DM-II, HTN, HLD, BPH, and former smoker. Pt states he was discharged from the [facility]. States he has been having trouble with neck pain and his blood pressure at home has running low. at bedside states pt has been reporting spells where he haa pain in te dario of his neck where he can't hold his neck up and then he passes out. also states when he talks " he would not make sense." Pt and states this started about 3 weeks ago. He denies any diaphoresis, n/v/d, abd pain. took BP and it was SBP in the 60's at home. He had one episode this morning where he slumped over and was non-responsive to her. brought him in to be evaluated because pt was confused. In ED Hgb 12.3, INR 3.0. Troponin <0.03 Na 137, BUN 25, Cr 1.73. Chest x ray XR/XR chest 1V portable IMPRESSION: Persistent right basilar atelectasis or fibrosis. No new pulmonary process appreciated. Past Med Surg Social Fam HX - Past Medical History Medical history: arthritis, atrial fibrillation, CHF, COPD, coronary artery disease, CVA, diabetes, GERD, hyperlipidemia, hypertension, pulmonary embolus, renal disease Additional medical history: Pacemaker, emphysema, sick sinus syndrome Psychiatric history: anxiety, bipolar, depression, panic disorder - Past Surgical History Surgical History: cholecystectomy, herniorrhaphy, knee replacement, orthopedic, other, pacemaker/AICD Additional surgical history: Right knee replacement. Cardiac Ablasion. left arm - Social History Smoking Status: Former smoker Smokeless Tobacco Status: No Alcohol use: none Drug use: none - Family History Father Adopted: No Family Member Ethnicity: Non- Living Status: Hx Family Cardiac Disorders: No Hx Family Respiratory Disorders: No Hx Family Cancer: Yes Hx Family GI Disorders: No Hx Family Endocrine Disorder: No Hx Family Neuromuscular Disorders: No Hx Family Neurologic Disorders: No Hx Family HEENT Disorders: No Hx Family Autoimmune Disorders: No Brother Family Member Ethnicity: Non- Living Status: Still Living Sister Family Member Ethnicity: Non- Living Status: Still Living Mother Adopted: No Family Member Ethnicity: Non- Twin of Family Member: Yes Living Status: Hx Family Cardiac Disorders: Yes Hx Family Respiratory Disorders: No Hx Family Cancer: No Hx Family GI Disorders: No Hx Family Endocrine Disorder: No Hx Family Neuromuscular Disorders: No Hx Family Neurologic Disorders: No Hx Family HEENT Disorders: No Hx Family Autoimmune Disorders: No Internal Medicine - H&P: Meds Amiodarone [Cordarone] 200 mg PO DAILY 04/04/18 [History] Aspirin 81 mg PO DAILY 04/04/18 [History] Atorvastatin [Lipitor] 40 mg PO HS 04/04/18 [History] Cholecalciferol (Vitamin D3) [Vitamin D3] 2,000 unit PO DAILY 04/04/18 [History] DULoxetine [Cymbalta] 30 mg PO DAILY 04/04/18 [History] Finasteride [Proscar] 5 mg PO DAILY 04/04/18 [History] Lubiprostone [Amitiza] 16 mcg PO 0800,1700 04/04/18 [History] Melatonin [Melatin] 9 mg PO HS 04/04/18 [History] Memantine HCl 10 mg PO BID 04/04/18 [History] Metoprolol XL (24 HR) Succ [Toprol Xl] 12.5 mg PO HS 04/04/18 [History] Pantoprazole Sodium [Protonix] 40 mg PO DAILY 04/04/18 [History] Rivaroxaban [Xarelto] 20 mg PO DAILY 04/04/18 [History] Sennosides/Docusate Sodium [Colace 2-in-1 Tablet] 1 each PO Q12H PRN 04/04/18 [History] Simethicone [Bicarsim] 80 mg PO Q8H PRN 04/04/18 [History] Tamsulosin HCl [Flomax] 0.4 mg PO BID 04/04/18 [History] Tizanidine HCl [Zanaflex] 2 mg PO BID 04/04/18 [History] Trazodone HCl 200 mg PO HS 04/04/18 [History] Losartan [Cozaar] 25 mg PO DAILY 04/24/18 [History] Tiotropium Br/Olodaterol HCl [Stiolto Respimat Inhal [place]] 2 puff IH DAILY 04/24/18 [History] Insulin ASPART [NovoLOG] 0 unit SQ TIDWM PRN 04/25/18 [History] Fluticasone/Salmeterol [Advair 250-50 Diskus] 1 puff IH BID 06/30/18 [History] Furosemide [Lasix] 20 mg PO DAILY 06/30/18 [History] Gabapentin [Neurontin] 400 mg PO BID 06/30/18 [History] LORazepam [Ativan] 0.5 mg PO HS PRN 06/30/18 [History] Potassium Chloride [K-Tab ER] 20 meq PO TID 06/30/18 [History] Spironolactone [Aldactone] 25 mg PO DAILY 06/30/18 [History] metOLazone [Zaroxolyn] 5 mg PO DAILY PRN 06/30/18 [History] Allergy/AdvReac Type Severity Reaction Status Date / Time IVP DYE Allergy Severe Anaphylaxis Uncoded 05/13/18 15:28 All Systems PM: A 10-system review of systems was performed and is negative for pertinent findings except as documented above in the HPI. - Constitutional Vitals: Temp Pulse Resp BP Pulse Ox 98.0 F 65 16 96/66 94 06/30/18 14:35 06/30/18 14:35 06/30/18 17:28 06/30/18 17:28 06/30/18 14:35 General appearance: Present: A&O X 3, morbidly obese Exam: . - Head Head exam: Present: atraumatic, normocephalic - Eye Eye exam: Present: PERRL, conjuntiva pink, sclera anicteric Pupils: Present: PERRL - Neck Neck exam general surgery: Present: supple, trachea midline. Absent: lymphadenopathy - Respiratory Respiratory exam: Present: CTAB. Absent: accessory muscle use, rales, rhonchi, wheezes - Cardiovascular Cardiovascular exam: Present: RRR, +S1, +S2. Absent: diastolic murmur, gallop, rubs, systolic murmur - GI/Abdominal GI/Abdominal exam: Present: normal bowel sounds, soft, no peritoneal signs. Absent: distended, tenderness - Extremities Exam Extremities exam: Present: pedal edema, warm, radial pulses palpable and symmetrical. Absent: calf tenderness, cyanotic - Neurological Exam Neurological exam: Present: CN II-XII intact, oriented X3, no focal deficits. Absent: pronater drift, facial droop, speech deficit - Skin Skin exam: Present: dry, intact Internal Med - H&P Results - Labs CBC & Chem 7: 06/30/18 15:05 06/30/18 14:59 Labs: Short CBC 06/30/18 Range/Units 15:05 WBC 9.3 (4.3-11.1) K/mcL Hgb 12.3 L (12.9-16.9) g/dL Hct 39.1 (37.5-50.1) % Plt Count 362 (140-400) K/mcL Neutrophils # 6.8 (1.6-8.9) K/mcL BMP 06/30/18 14:59 Sodium 137 Potassium 3.5 Chloride 97 L Carbon Dioxide 31 H BUN 25 H Creatinine 1.73 H Glucose 104 Calcium 8.7 Cardiac Enzymes 06/30/18 Range/Units 14:59 Troponin I < 0.03 (< 0.04) ng/mL Liver Function 06/30/18 Range/Units 14:59 Total Bilirubin 0.4 (0.3-1.0) mg/dL Direct Bilirubin 0.1 (0.0-0.2) mg/dL AST 17 (13-39) Units/L ALT 21 (7-52) Units/L Alkaline Phosphatase 81 (34-104) Units/L Albumin 3.6 (3.5-5.7) g/dL - Impressions ITS Impressions Chest X-Ray 06/30/18 14:32 IMPRESSION: Persistent right basilar atelectasis or fibrosis. No new pulmonary process appreciated. D/ / 06/30/2018 15:43:58 Kingston Prince MD / [facility] Interpreting Provider: Kingston Prince MD Head CT 06/30/18 15:32 IMPRESSION: No acute intracranial abnormality. Chronic maxillary sinus disease. D/ / 06/30/2018 16:44:09 Kingston Prince MD / [facility] Interpreting Provider: Kingston Prince MD - Assessment and plan (1) Hypotension Current Visit: No Status: Acute Assessment and plan: Pt reports having hypotensive episode and LOC. Will hold Cozaar and Metalozone for now. Will monitor BP. Qualifiers: Hypotension type: unspecified hypotension type Qualified Code(s): I95.9 - Hypotension, unspecified (2) Chest pain Current Visit: No Status: Resolved Assessment and plan: WIll cycle troponin. Will Resume cardiac meds. ASA QD and nitro SL. Qualifiers: Chest pain type: precordial pain Qualified Code(s): R07.2 - Precordial pain (3) Altered mental status Current Visit: Yes Status: Acute Assessment and plan: Pt is alert and oriented x 3 at this time. Prior hx of CVA but pt has a pacemaker and unlikely to be able to get an MRI. Will check orthostatic vitals Non-contrast CT CT/CT head/brain wo con IMPRESSION: No acute intracranial abnormality. Chronic maxillary sinus disease. Qualifiers: Altered mental status type: unspecified Qualified Code(s): R41.82 - Altered mental status, unspecified (4) Pacemaker Current Visit: No Status: Chronic (5) Paroxysmal A-fib Current Visit: No Status: Acute Assessment and plan: Xarelto and amiodarone (6) CKD (chronic kidney disease) stage 3, GFR 30-59 ml/min Current Visit: No Status: Chronic Assessment and plan: Will monitor renal function (7) Hypotension Current Visit: Yes Status: Acute Qualifiers: Qualified Code(s): I95.9 - Hypotension, unspecified - Time Spent With Patient Total time spent is greater than 50% in coordination of care (as documented) at patient's floor/unit and/or counseling patient: 25 - 35 minutes
[2018-06-30] MEDS ORDERED: Acetaminophen 325 MG TABLET PO PRN (18:14)
[2018-06-30] MEDS ORDERED: Naloxone 0.4 MG/ML INJ IVP PRN (18:14)
[2018-06-30] MEDS ORDERED: *HR* LORazepam 0.5 MG TABLET PO PRN (18:15)
[2018-06-30] MEDS ORDERED: Nitroglycerin 0.4 MG TAB.SUBL SL PRN (18:23)
[2018-06-30 19:19] LABS: Basophils % 0.6 %; Eosinophils # 0.4 K/mcL (0.0-0.6); Eosinophils % 5.6 %; Hemoglobin 11.7 g/dL (12.9-16.9); Immature Granulocytes % 0.3 % (0-4); Lymphocytes # 1.2 K/mcL (0.6-4.6); Lymphocytes % 17.4 %; Mean Corpuscular HGB Conc 31.6 g/dL (31.6-35.5); Mean Corpuscular Hemoglobin 26.2 pg (28.0-33.3); Mean Platelet Volume 9.3 fL (9.4-12.4); Monocytes # 0.9 K/mcL (0.0-1.3); Monocytes % 12.4 %; Neutrophils # 4.5 K/mcL (1.6-8.9); Platelet Count 309 K/mcL (140-400); Red Blood Count 4.46 M/mcL (4.19-5.50); Red Cell Distribution Width 15.9 % (11.5-14.5); Segmented Neutrophils % 63.7 %
[2018-06-30] MEDS: Budesonide/Formoterol 80/4.5 MDI IH SCH (20:11)
[2018-06-30] MEDS ORDERED: Melatonin 3 MG TABLET PO SCH (21:00)
[2018-06-30] MEDS ORDERED: Metoprolol XL (24 HR) Succ 25 MG TAB.ER.24H PO SCH (21:00)
[2018-06-30] MEDS: Gabapentin 400 MG CAPSULE PO SCH (21:54)
[2018-07-01 00:59] LABS: BUN/Creatinine Ratio 16 (6-26); Blood Urea Nitrogen 22 mg/dL (8-23); Calcium 8.3 mg/dL (8.6-10.3); Carbon Dioxide 29 mEq/L (23-29); Chloride 101 mEq/L (98-107); Glucose 140 mg/dL (70-105); Osmolality,Calculated 294 (280-300); Potassium 3.2 mEq/L (3.5-5.1); Sodium 139 mEq/L (136-145); eGFR For Non-African Americans 50 (> 60)
[2018-07-01] MEDS: Budesonide/Formoterol 80/4.5 MDI IH SCH (08:12)
[2018-07-01] MEDS ORDERED: Finasteride 5 MG TABLET PO SCH (09:00)
[2018-07-01] MEDS ORDERED: *HR* Rivaroxaban 10 MG TABLET PO SCH (09:00)
[2018-07-01] MEDS ORDERED: Aspirin 81 MG TAB.CHEW PO SCH (09:00)
[2018-07-01] MEDS ORDERED: Furosemide 20 MG TABLET PO SCH (09:00)
[2018-07-01] MEDS ORDERED: *HR* Amiodarone 200 MG TABLET PO SCH (09:00)
[2018-07-01] MEDS: Gabapentin 400 MG CAPSULE PO SCH (09:08)
[2018-07-01] MEDS: LUBIPROSTONE PO SCH ×2 (09:08→14:57)
[2018-07-01 10:20] LABS: Bilirubin,Urine Negative (Negative); Blood,Urine Negative (Negative); Clarity,Urine Clear (Clear); Color,Urine Yellow (Yellow); Glucose,Urine (UA) Normal (Normal); Ketones,Urine Negative (Negative); Leukocyte Esterase,Urine Negative (Negative); Nitrite,Urine Negative (Negative); Protein,Urine Negative (Neg-Trace); Specific Gravity,Urine 1.006 (1.010-1.025)
--- NOTE | 2018-07-01 15:52 | Discharge Summary ---
- NOTES TO OUTPATIENT PROVIDER Notes to Outpatient Provider: PCP in 5 to 7 days. Orders not resulted at time of discharge: Pending orders 06/30/18 14:32 EKG [ECG 12 lead ECG] [ECG] Stat Date of Encounter: 07/01/18 Time of Encounter: 15:49 - Discharge Diagnosis (1) Hypotension Priority: Primary Status: Acute Assessment and Plan: Resolved. BP on admission 91/59Will hold his Metolazone and for now and resume other home BP meds. If he has another near syncopal or syncopal episode, he may need another BP med held. Orthostats normal Lying 113/75 Sitting 128/77 Standing 127/68 Qualifiers: Hypotension type: unspecified hypotension type Qualified Code(s): I95.9 - Hypotension, unspecified (2) Altered mental status Priority: Primary Status: Acute Assessment and Plan: Pt is alert and oriented x 3 at this time. Prior hx of CVA but pt has a pacemaker and unlikely to be able to get an MRI. Orthostatic vitals wnl Non-contrast CT CT/CT head/brain wo con IMPRESSION: No acute intracranial abnormality. Chronic maxillary sinus disease. Qualifiers: Altered mental status type: unspecified Qualified Code(s): R41.82 - Altered mental status, unspecified (3) Pacemaker Priority: Secondary Status: Chronic (4) Paroxysmal A-fib Priority: Secondary Status: Acute Assessment and Plan: Stable. On Xarelto and amiodarone (5) CKD (chronic kidney disease) stage 3, GFR 30-59 ml/min Priority: Secondary Status: Chronic Assessment and Plan: Will monitor renal function (6) Hypotension Priority: Secondary Status: Acute Assessment and Plan: Resolved. Holding Metalozone. Qualifiers: Qualified Code(s): I95.9 - Hypotension, unspecified Hospital course: History of present illness: Dr. Gibson Mr. Issa is a 68 year old male wtih past medical history of COPD, chronic respiratory failure on 2L, CVA x 3, pacemaker, afib o Xarelto and Amiodarone), CKD, DM-II, HTN, HLD, BPH, and former smoker. Pt states he was discharged from the [facility]. States he has been having trouble with neck pain and his blood pressure at home has running low. at bedside states pt has been reporting spells where he haa pain in te dario of his neck where he can't hold his neck up and then he passes out. also states when he talks " he would not make sense." Pt and states this started about 3 weeks ago. He denies any diaphoresis, n/v/d, abd pain. took BP and it was SBP in the 60's at home. He had one episode this morning where he slumped over and was non-responsive to her. brought him in to be evaluated because pt was confused. Discharge discussed with: patient Time spent discussing smoking cessation with patient: 3 to 10 minutes - Time Spent with Patient Total time spent providing and/or coordinating discharge services: Greater than 30 minutes - Discharge Medications Home Medications: Amiodarone [Cordarone] 200 mg PO DAILY 04/04/18 [History] Aspirin 81 mg PO DAILY 04/04/18 [History] Atorvastatin [Lipitor] 40 mg PO HS 04/04/18 [History] Cholecalciferol (Vitamin D3) [Vitamin D3] 2,000 unit PO DAILY 04/04/18 [History] DULoxetine [Cymbalta] 30 mg PO DAILY 04/04/18 [History] Finasteride [Proscar] 5 mg PO DAILY 04/04/18 [History] Lubiprostone [Amitiza] 16 mcg PO 0800,1700 04/04/18 [History] Melatonin [Melatin] 9 mg PO HS 04/04/18 [History] Memantine HCl 10 mg PO BID 04/04/18 [History] Metoprolol XL (24 HR) Succ [Toprol Xl] 12.5 mg PO HS 04/04/18 [History] Pantoprazole Sodium [Protonix] 40 mg PO DAILY 04/04/18 [History] Rivaroxaban [Xarelto] 20 mg PO DAILY 04/04/18 [History] Sennosides/Docusate Sodium [Colace 2-in-1 Tablet] 1 each PO Q12H PRN 04/04/18 [History] Simethicone [Bicarsim] 80 mg PO Q8H PRN 04/04/18 [History] Tamsulosin HCl [Flomax] 0.4 mg PO BID 04/04/18 [History] Tizanidine HCl [Zanaflex] 2 mg PO BID 04/04/18 [History] Trazodone HCl 200 mg PO HS 04/04/18 [History] Losartan [Cozaar] 25 mg PO DAILY 04/24/18 [History] Tiotropium Br/Olodaterol HCl [Stiolto Respimat Inhal [place]] 2 puff IH DAILY 04/24/18 [History] Insulin ASPART [NovoLOG] 0 unit SQ TIDWM PRN 04/25/18 [History] Fluticasone/Salmeterol [Advair 250-50 Diskus] 1 puff IH BID 06/30/18 [History] Furosemide [Lasix] 20 mg PO DAILY 06/30/18 [History] Gabapentin [Neurontin] 400 mg PO BID 06/30/18 [History] LORazepam [Ativan] 0.5 mg PO HS PRN 06/30/18 [History] Potassium Chloride [K-Tab ER] 20 meq PO TID 06/30/18 [History] Spironolactone [Aldactone] 25 mg PO DAILY 06/30/18 [History] Allergies/Adverse Reactions: Allergy/AdvReac Type Severity Reaction Status Date / Time IVP DYE Allergy Severe Anaphylaxis Uncoded 05/13/18 15:28 Date of admission: 06/30/18 17:16 Primary care physician: PCP MD Discharging clinician: Kelsie Gibson Anticipated date of discharge: 07/01/18 - Constitutional Vitals: Temp Pulse Resp BP Pulse Ox 98.0 F 66 16 113/75 94 07/01/18 11:48 07/01/18 11:48 07/01/18 11:48 07/01/18 14:56 07/01/18 11:48 General appearance: Present: A&O X 3, morbidly obese Exam: . - Patient Status Disposition: Home, Self-Care Condition: Good Overall status at discharge: patient is back to baseline - Discharge Instructions [facility] With: [facility] Care Provider[facility] - - Diet and Activity Activity: increase activity as tolerated Diet: diabetic diet, low fat, low cholesterol, low salt diet
[2018-07-01 17:28] VITALS: BP 122/78
--- NOTE | 2018-07-04 09:24 | Electrocardiograph Report ---
[address] [address] Test Date: 2018-06-30 Pat Name: Dakota Issa Department: EXAM6 Room: 2A41 Gender: M Flange Turner: : 1950 Requested By: Gunnar Luna Order Number: [id number] Reading MD: Deivn Mejía Measurements Intervals [place] Rate: 70 P: LA: 139 QRS: 71 QRSD: 118 T: 40 QT: 437 QTc: 472 Interpretive Statements Atrial-paced complexes Nonspecific intraventricular conduction delay Borderline low voltage, extremity leads Electronically Signed On 07-04-2018 9:23:02 EST by Devin Mejía
== END 2018-07-01 19:01 | disposition home or self-care (01) ==
LOC: EMEROOARM 14:29 → 2ANU 14:29
PROVIDERS: ADMIT Internal Medicine; ATTEND Internal Medicine

== ENCOUNTER 2018-07-06 18:16 | Inpatient (IN) ==
[2018-07-06] MEDS ORDERED: 0.9 % Sodium Chloride 500 ML IVC ONE (18:59)
--- NOTE | 2018-07-06 19:06 | Emergency Department Note ---
Disposition Clinical Impression: ST elevation myocardial infarction (STEMI) of inferolateral wall Hypotension Qualifiers: Hypotension type: unspecified hypotension type Qualified Code(s): I95.9 - Hypotension, unspecified Acute on chronic renal failure Qualifiers: Acute renal failure type: unspecified Chronic kidney disease stage: unspecified stage Qualified Code(s): N17.9 - Acute kidney failure, unspecified Disposition: Admitted As Inpatient Condition: Critical Time of Disposition: 19:35 General Adult HPI - General Stated complaint: low bp Time Seen by Provider: 07/06/18 18:32 Nursing Notes Reviewed: Yes Vital Signs Reviewed: Yes - History of Present Illness HPI Narrative: Patient does have a history of hypotension last week and was thought to be from extra [facility] and the patient was at the OR extended care facility and now is living at home with his and presents today with his son per EMS and the stories that checked his blood pressure at home it was 44 systolic. The patient states that he does have a frontal headache which is sharp and present only when he lifts his head when he is laying flat on the bed does not have a headache. Does have some minimal right lower quadrant abdominal pain. Denies any dysuria or urinary frequency or blood in the urine or stool. He does not have any chest pain. No back pain. No complaint of fever. I did review the previous record. Social history: No smoking or alcohol or drugs - Related Data Home Medications Medication Instructions Recorded Confirmed Amiodarone [Cordarone] 200 mg PO DAILY 04/04/18 06/30/18 Aspirin 81 mg PO DAILY 04/04/18 06/30/18 Atorvastatin [Lipitor] 40 mg PO HS 04/04/18 06/30/18 Cholecalciferol (Vitamin D3) 2,000 unit PO DAILY 04/04/18 06/30/18 [Vitamin D3] DULoxetine [Cymbalta] 30 mg PO DAILY 04/04/18 06/30/18 Finasteride [Proscar] 5 mg PO DAILY 04/04/18 06/30/18 Lubiprostone [Amitiza] 16 mcg PO 0800,1700 04/04/18 06/30/18 Melatonin [Melatin] 9 mg PO HS 04/04/18 06/30/18 Memantine HCl 10 mg PO BID 04/04/18 06/30/18 Metoprolol XL (24 HR) Succ [Toprol 12.5 mg PO HS 10/03/18 12/29/18 Xl] Pantoprazole Sodium [Protonix] 40 mg PO DAILY 04/04/18 06/30/18 Rivaroxaban [Xarelto] 20 mg PO DAILY 04/04/18 06/30/18 Sennosides/Docusate Sodium [Colace 1 each PO Q12H PRN 04/04/18 06/30/18 2-in-1 Tablet] Simethicone [Bicarsim] 80 mg PO Q8H PRN 04/04/18 06/30/18 Tamsulosin HCl [Flomax] 0.4 mg PO BID 04/04/18 06/30/18 Tizanidine HCl [Zanaflex] 2 mg PO BID 04/04/18 06/30/18 Trazodone HCl 200 mg PO HS 04/04/18 06/30/18 Losartan [Cozaar] 25 mg PO DAILY 04/24/18 06/30/18 Tiotropium Br/Olodaterol HCl 2 puff IH DAILY 04/24/18 06/30/18 [Stiolto Respimat Inhal [place]] Insulin ASPART [NovoLOG] 0 unit SQ TIDWM PRN 04/25/18 06/30/18 Fluticasone/Salmeterol [Advair 1 puff IH BID 06/30/18 06/30/18 250-50 Diskus] Furosemide [Lasix] 20 mg PO DAILY 06/30/18 06/30/18 Gabapentin [Neurontin] 400 mg PO BID 06/30/18 06/30/18 LORazepam [Ativan] 0.5 mg PO HS PRN 06/30/18 06/30/18 Potassium Chloride [K-Tab ER] 20 meq PO TID 06/30/18 06/30/18 Spironolactone [Aldactone] 25 mg PO DAILY 06/30/18 06/30/18 Allergies Allergy/AdvReac Type Severity Reaction Status Date / Time IVP DYE Allergy Severe Anaphylaxis Uncoded 05/13/18 15:28 Review of Systems: Constitutional: No fever Vision: No blurred vision ENT: No rhinorrhea Respiratory: He does have a minimal cough Allergic: No allergies : No blood in urine GI: No blood in stool Hematologic: No bruising Dermatologic: No skin rash Musculoskeletal: No pain in the extremities Neuro: No numbness of the extremities Past Medical History - Past Medical History Medical history: Reports: arthritis, atrial fibrillation, CHF, COPD, coronary artery disease, CVA, diabetes, GERD, hyperlipidemia, hypertension, pulmonary embolus, renal disease Surgical history: Reports: cholecystectomy, herniorrhaphy, knee replacement, orthopedic, other, pacemaker/AICD Psychiatric history: Reports: anxiety, depression, panic disorder - Social History Smoking Status: Former smoker Smokeless Tobacco Status: No Alcohol use: Reports: none Drug use: Reports: none Physical Exam CONSTITUTIONAL: Alert and oriented X3, well-nourished, slightly pale in appearance, breathing comfortably, answering questions well HEAD: Normocephalic; atraumatic. EYES: PERRL, no scleral icterus. NOSE: The nose is normal in appearance without rhinorrhea RESP: Normal chest excursion with respiration; breath sounds clear and equal bilaterally; no wheezes, rhonchi, or rales CARD: Regular rhythm, without murmurs, rub or gallop ABD: Non-distended; non-tender, soft,without rigidity, rebound or guarding, no pulsatile mass SKIN: Normal for age and race; warm and dry; no apparent lesions Extremities: Pulses 2+ and equal in all 4 extremities, does have 2+ bilateral lower extremity edema which is symmetric. No erythema or signs of infection Course Vital Signs Pulse Rate 73 07/06/18 19:32 Respiratory Rate 20 07/06/18 19:32 Blood Pressure 83/57 07/06/18 19:32 O2 Sat by Pulse Oximetry 100 07/06/18 19:32 Temperature 98.6 F 07/06/18 19:36 Pulse Rate 62 07/06/18 19:54 Respiratory Rate 14 07/06/18 20:09 Blood Pressure 96/64 07/06/18 20:09 O2 Sat by Pulse Oximetry 100 07/06/18 19:54 Oxygen Delivery Oxygen Delivery Nasal Cannula Medical Decision Making - [facility] Narrative Medical decision making narrative: Patient's blood pressures currently 76 and I did write for IV fluids, labs including blood culture, urine culture, lactate level and the patient will have CT scan of both head and abdomen he does have right lower quadrant abdominal pain. I should note that he has no head pain at all when he is laying still. The patient is currently mentating well and will reassess after the IV fluid bolus 1909 A EKG was done which does show ST elevation in leads 2 and 3 and aVF and this is new compared to previous EKG from June 30 area we did check back with the patient and he said he just had the onset of chest pain within the last few minutes. So the EKG today showing a atrial paced rhythm with a rate of [address] elevation and some lateral also is likely indicative of a inferior lateral NV and a STEMI alert is called and I also did just speak with the community relations director was calling the director weights and measures on-call. [address] speak [address] Dr. Brown who will activate the [facility] and emergently come and see the patient for the inferior lateral STEMI. The patient is getting IV fluid bolus, he would like me to start brininta and low-dose heparin as long as the patient has not taken his zarelto within the last 6 hours and returns at the patient took this or alto this morning so we will start low-dose heparin and brinlinta 180 mg. 1933 Patient has a stated allergy to IVP dye and the [facility] did call and request 50 mg Benadryl IV and Solu-Medrol 125 mg IV so I did order these medications. 1940 Upon departure from the ED the patient's blood pressure had increased to was 96 systolic. He did go directly to the [facility]. I did review the initial lab tests. - Medical Records Medical records reviewed: Yes I reviewed the patient's medical records. - Lab Data Lab results reviewed: Yes I reviewed the patient's lab results. Result diagrams: 07/06/18 19:33 07/06/18 19:33 Lab Results 07/06/18 07/06/18 07/06/18 Range/Units 19:33 19:33 19:33 WBC 9.8 (4.3-11.1) K/mcL RBC 5.02 (4.19-5.50) M/mcL Hgb 13.0 (12.9-16.9) g/dL Hct 42.4 (37.5-50.1) % MCV 84.5 (83.0-100.0) fL MCH 25.9 L (28.0-33.3) pg MCHC 30.7 L (31.6-35.5) g/dL RDW 16.2 H (11.5-14.5) % Plt Count 346 (140-400) K/mcL MPV 9.2 L (9.4-12.4) fL Sodium 137 (136-145) mEq/L Potassium 4.5 (3.5-5.1) mEq/L Chloride 101 (98-107) mEq/L Carbon Dioxide 30 H (23-29) mEq/L BUN 27 H (8-23) mg/dL Creatinine 2.15 H (0.70-1.30) mg/dL Est GFR ( Amer) 37 L (> 60) Est GFR (Non-Af Amer) 31 L (> 60) BUN/Creatinine Ratio 13 (6-26) Glucose 99 (70-105) mg/dL Calculated Osmolality 289 (280-300) Lactic Acid 1.3 (0.5-2.2) mmol/L Calcium 8.7 (8.6-10.3) mg/dL Troponin I (< 0.04) ng/mL Blood Type 07/06/18 07/06/18 Range/Units 19:33 19:33 WBC (4.3-11.1) K/mcL RBC (4.19-5.50) M/mcL Hgb (12.9-16.9) g/dL Hct (37.5-50.1) % MCV (83.0-100.0) fL MCH (28.0-33.3) pg MCHC (31.6-35.5) g/dL RDW (11.5-14.5) % Plt Count (140-400) K/mcL MPV (9.4-12.4) fL Sodium (136-145) mEq/L Potassium (3.5-5.1) mEq/L Chloride (98-107) mEq/L Carbon Dioxide (23-29) mEq/L BUN (8-23) mg/dL Creatinine (0.70-1.30) mg/dL Est GFR ( Amer) (> 60) Est GFR (Non-Af Amer) (> 60) BUN/Creatinine Ratio (6-26) Glucose (70-105) mg/dL Calculated Osmolality (280-300) Lactic Acid (0.5-2.2) mmol/L Calcium (8.6-10.3) mg/dL Troponin I < 0.03 (< 0.04) ng/mL Blood Type A POSITIVE - Radiology Data Radiology results reviewed: Yes I reviewed the patient's radiology results. Critical Care Time Critical Care Time: Yes Total Critical Care Time: 30 Attestation: 30 minutes of critical care time was spent managing the patient's hypotension, inferior lateral STEMI, administration of anticoagulant medications, discussion with interventional cardiology and fluid administration
[2018-07-06] MEDS ORDERED: *HR* Ticagrelor 90 MG TABLET PO ONE (19:30)
[2018-07-06] MEDS ORDERED: methylPREDNISolone 125 MG/2 ML VIAL IVP ONE (19:38)
[2018-07-06] MEDS ORDERED: *HR* Heparin 5,000 UNIT/ML VIAL IVP ONE (19:38)
[2018-07-06] MEDS ORDERED: *HR* Heparin 5,000 UNIT/ML VIAL IVP PRN ×2 (19:38)
[2018-07-06] MEDS ORDERED: 0.9 % Sodium Chloride 2,000 ML ONE (19:41)
[2018-07-06] MEDS ORDERED: Heparin 1,000 UNITS/500 mL 500 ML ONE (19:41)
[2018-07-06] MEDS ORDERED: Nitroglycerin 1,000 MCG/10 ML VIAL IV ONE (19:41)
[2018-07-06] MEDS ORDERED: ISOVUE-370 200 ML INFUS..BTL ONE ×2 (19:41→19:51)
[2018-07-06] MEDS ORDERED: *HR* Heparin 10,000 UNIT/10 ML VIAL ONE (19:41)
[2018-07-06] MEDS ORDERED: Heparin 25,000 UNIT/500 ML D5W 25,000 UNIT/500 ML BAG IVC SCH (19:45)
[2018-07-06 19:46] LABS: Hematocrit 42.4 % (37.5-50.1); Mean Corpuscular HGB Conc 30.7 g/dL (31.6-35.5); Mean Corpuscular Hemoglobin 25.9 pg (28.0-33.3); Mean Corpuscular Volume 84.5 fL (83.0-100.0); Mean Platelet Volume 9.2 fL (9.4-12.4); Platelet Count 346 K/mcL (140-400); Red Blood Count 5.02 M/mcL (4.19-5.50); Red Cell Distribution Width 16.2 % (11.5-14.5)
[2018-07-06] MEDS ORDERED: DOPamine Premix 0 MG/0 ML BAG ONE (19:55)
--- NOTE | 2018-07-06 20:08 | Cardiology History & Physical ---
Date of Encounter: 07/06/18 Time of Encounter: 19:52 Assessment and Plan (1) ST elevation (STEMI) myocardial infarction involving other coronary artery of inferior wall Current Visit: Yes Status: Acute The assessment and plan as outlined above was discussed with the patient and/or family members who expressed understanding and agreement. All questions were answered. New onset chest pain, acute EKG changes, recommend emergent Left heart cath, intervention if indicated, risks and benefits discussed with family at bedside, elect to proceed. (2) Dyspnea on exertion Current Visit: No Status: Acute The assessment and plan as outlined above was discussed with the patient and/or family members who expressed understanding and agreement. All questions were answered. Symptoms worse later in the day, by three pm has to sit down to rest, nods off frequently, (3) Sick sinus syndrome Current Visit: No Status: Chronic The assessment and plan as outlined above was discussed with the patient and/or family members who expressed understanding and agreement. All questions were answered. chronic A fib with controlled ventricular response on Amiodarone, Xaralto for primary stroke risk reduction, PPMK for bradycardia. (4) Depression with anxiety Current Visit: No Status: Chronic The assessment and plan as outlined above was discussed with the patient and/or family members who expressed understanding and agreement. All questions were answered. Anxiety and depression somewhat controlled on current meds, concerned about possible drug interactions with cymbalta, memantine and amiodarone, may need psych consult to help with weaning strategy. (5) Hypotension Current Visit: No Status: Acute The assessment and plan as outlined above was discussed with the patient and/or family members who expressed understanding and agreement. All questions were answered. unclear etiology, fluid bolus, await results of LHC/Poss. Qualifiers: Hypotension type: unspecified hypotension type Qualified Code(s): I95.9 - Hypotension, unspecified History of Present Illness Chief complaint: chest pain HPI: Pt evaluated, examined, old records, previous cath films reviewed prior to [facility], findings documented post procedure to facilitate emergency intervention. Mr. Issa is a 68 year old male who presented to ER for evaluation of hypotension and dizziness. Pt was undergoing evaluation in the ER, when developed +4 substernal chest pain, non-radiating, associated with mild shortness of breath. EKG obtained shows acute inf AR. Pt reports chest pain improved with sl ntg, but has not resolved, now 08/12. He has hx non-ischemic CMP, with BiV AICD, underwent LHC prior to AICD placement in 2017 which reportedly showed normal conornary arteries. He reports has been much less active over last several weeks due to fatique, "chest cold" symptoms. Pts family at bedside reports he wakes up with moderate energy, is able to walk with cane or walker, but fades during the day, and by late afternoon is having trouble staying awake, does not want to walk, only sits and dozes off. He denies chest pain, pressure or shortness of breath prior to this evening. Past Med Surg Social Fam HX - Past Medical History Medical history: arthritis, atrial fibrillation, CHF, COPD, coronary artery disease, CVA, diabetes, GERD, hyperlipidemia, hypertension, pulmonary embolus, renal disease Additional medical history: Pacemaker, emphysema, sick sinus syndrome Psychiatric history: anxiety, depression, panic disorder - Past Surgical History Surgical History: cholecystectomy, herniorrhaphy, knee replacement, orthopedic, other, pacemaker/AICD Additional surgical history: Right knee replacement. Cardiac Ablasion. left arm - Social History Smoking Status: Former smoker Smokeless Tobacco Status: No Alcohol use: none Drug use: none - Family History Father Adopted: No Family Member Ethnicity: Non- Living Status: Hx Family Cardiac Disorders: No Hx Family Respiratory Disorders: No Hx Family Cancer: Yes Hx Family GI Disorders: No Hx Family Endocrine Disorder: No Hx Family Neuromuscular Disorders: No Hx Family Neurologic Disorders: No Hx Family HEENT Disorders: No Hx Family Autoimmune Disorders: No Brother Family Member Ethnicity: Non- Living Status: Still Living Sister Family Member Ethnicity: Non- Living Status: Still Living Mother Adopted: No Family Member Ethnicity: Non- Twin of Family Member: Yes Living Status: Hx Family Cardiac Disorders: Yes Hx Family Respiratory Disorders: No Hx Family Cancer: No Hx Family GI Disorders: No Hx Family Endocrine Disorder: No Hx Family Neuromuscular Disorders: No Hx Family Neurologic Disorders: No Hx Family HEENT Disorders: No Hx Family Autoimmune Disorders: No Medications and Allergies Amiodarone [Cordarone] 200 mg PO DAILY 04/04/18 [History] Aspirin 81 mg PO DAILY 04/04/18 [History] Atorvastatin [Lipitor] 40 mg PO HS 04/04/18 [History] Cholecalciferol (Vitamin D3) [Vitamin D3] 2,000 unit PO DAILY 04/04/18 [History] DULoxetine [Cymbalta] 30 mg PO DAILY 04/04/18 [History] Finasteride [Proscar] 5 mg PO DAILY 04/04/18 [History] Lubiprostone [Amitiza] 16 mcg PO 0800,1700 04/04/18 [History] Melatonin [Melatin] 9 mg PO HS 04/04/18 [History] Memantine HCl 10 mg PO BID 04/04/18 [History] Metoprolol XL (24 HR) Succ [Toprol Xl] 12.5 mg PO HS 04/04/18 [History] Pantoprazole Sodium [Protonix] 40 mg PO DAILY 04/04/18 [History] Rivaroxaban [Xarelto] 20 mg PO DAILY 04/04/18 [History] Sennosides/Docusate Sodium [Colace 2-in-1 Tablet] 1 each PO Q12H PRN 04/04/18 [History] Simethicone [Bicarsim] 80 mg PO Q8H PRN 04/04/18 [History] Tamsulosin HCl [Flomax] 0.4 mg PO BID 04/04/18 [History] Tizanidine HCl [Zanaflex] 2 mg PO BID 04/04/18 [History] Trazodone HCl 200 mg PO HS 04/04/18 [History] Losartan [Cozaar] 25 mg PO DAILY 04/24/18 [History] Tiotropium Br/Olodaterol HCl [Stiolto Respimat Inhal [place]] 2 puff IH DAILY 04/24/18 [History] Insulin ASPART [NovoLOG] 0 unit SQ TIDWM PRN 04/25/18 [History] Fluticasone/Salmeterol [Advair 250-50 Diskus] 1 puff IH BID 06/30/18 [History] Furosemide [Lasix] 20 mg PO DAILY 06/30/18 [History] Gabapentin [Neurontin] 400 mg PO BID 06/30/18 [History] LORazepam [Ativan] 0.5 mg PO HS PRN 06/30/18 [History] Potassium Chloride [K-Tab ER] 20 meq PO TID 06/30/18 [History] Spironolactone [Aldactone] 25 mg PO DAILY 06/30/18 [History] Allergy/AdvReac Type Severity Reaction Status Date / Time IVP DYE Allergy Severe Anaphylaxis Uncoded 05/13/18 15:28 All Systems Review: The remainder of the systems were reviewed and are negative - Cardiovascular Cardiovascular: chest pain with exertion, diaphoresis, irregular heart rhythm (aaaaaaaaaaaaaaaaaaaaaadsaaaaaaaaaaaaaaaaaaaaaaaaaaaaaaaaaaaaaaaaaaaaaa) - Respiratory Respiratory: cough, dyspnea - Gastrointestinal Gastrointestinal: abdominal pain, nausea - Musculoskeletal Musculoskeletal: arthralgias, back pain - Neurological Neurological: dizziness, other (generalized weakness late afternoon, improves slightly by 7 pm, but much less active in early evening. ) Physical Examination Vital Signs, Last 4 Hours Temp Pulse Resp BP Pulse Ox 07/06/18 19:41 60 86/59 100 07/06/18 19:37 62 84/53 100 07/06/18 19:36 98.6 F 68 14 88/47 97 07/06/18 19:32 73 20 83/57 100 General: Conversant, Other (in mild disress with ongoing chest pain) HEENT: Atraumatic, Normocephaly Cardiac: Reg Rate and Rhythm, Normal S1 and S2, No Murmur Lungs: Normal Breath Sounds, No Wheeze, Rales, Rhonchi Skin: No rashes noted on visualized skin Musculoskeletal: No Chest Wall Tenderness Extremities: No Clubbing, No Cyanosis, No Edema, Normal Pulses Results 07/06/18 19:33 07/06/18 19:33 Lab Results 07/06/18 19:33 WBC 9.8 Hgb 13.0 Hct 42.4 Plt Count 346 - EKG Interpretation EKG results cardiology: personally reviewed (NSR with ST segment elevation inf leads)
[2018-07-06 20:09] LABS: Calcium 8.7 mg/dL (8.6-10.3); Potassium 4.5 mEq/L (3.5-5.1)
[2018-07-06] MEDS ORDERED: *HR* Midazolam HCl 2 MG/2 ML VIAL ONE (20:20)
--- NOTE | 2018-07-06 21:48 | Event Note ---
Date of Encounter: 07/06/18 Time of Encounter: 21:45 - Cardiology Event Note LHC: LV: Mild LV systolic impairment, EF 45%, mild global hypokinesis LMT: Normal LAD: mild 30% mid, CX: normal RCA: normal IMP: Cornary arteries unchanged from previous LHC, no focal findings to explain acute EKG changes, suspect had transient ischemia due to cornary embolic event which resolved with IV heparin, will repeat echo, eval left sided cardioembolic source.
[2018-07-06] MEDS: Budesonide/Formoterol 80/4.5 MDI IH SCH (22:10)
[2018-07-06 22:15] LABS: INR 2.1; Prothrombin Time 23.6 Seconds (9.4-12.1)
[2018-07-06] MEDS: 0.9 % Sodium Chloride 1,000 ML IVC SCH (22:29)
[2018-07-07] MEDS: 0.9 % Sodium Chloride 1,000 ML IVC SCH (02:12)
[2018-07-07 04:40] LABS: Basophils % 0.2 %; Hematocrit 43.1 % (37.5-50.1); Hemoglobin 13.6 g/dL (12.9-16.9); Immature Granulocytes % 0.7 % (0-4); Lymphocytes # 0.5 K/mcL (0.6-4.6); Lymphocytes % 5.5 %; Mean Corpuscular HGB Conc 31.6 g/dL (31.6-35.5); Mean Corpuscular Hemoglobin 26.3 pg (28.0-33.3); Mean Corpuscular Volume 83.2 fL (83.0-100.0); Mean Platelet Volume 9.7 fL (9.4-12.4); Monocytes # 0.1 K/mcL (0.0-1.3); Monocytes % 0.9 %; Platelet Count 326 K/mcL (140-400); Red Blood Count 5.18 M/mcL (4.19-5.50); Segmented Neutrophils % 92.7 %
[2018-07-07 04:57] LABS: Calcium 8.7 mg/dL (8.6-10.3); Potassium 4.4 mEq/L (3.5-5.1)
[2018-07-07] MEDS: Budesonide/Formoterol 80/4.5 MDI IH SCH ×2 (07:35→21:57)
[2018-07-07] MEDS ORDERED: Finasteride 5 MG TABLET PO SCH (09:00)
[2018-07-07] MEDS ORDERED: (Tiotropium Br/Olodaterol Hcl [Stiolto Respimat Inhal) IH SCH (09:00)
[2018-07-07] MEDS ORDERED: Aspirin 81 MG TAB.CHEW PO SCH (09:00)
[2018-07-07] MEDS ORDERED: Cholecalciferol (D-3) 1,000 UNIT TABLET PO SCH (09:00)
[2018-07-07] MEDS ORDERED: tiZANidine 4 MG TABLET PO SCH (09:00)
[2018-07-07] MEDS ORDERED: Ipratropium/Albuterol Neb 3 ML IH PRN ×2 (09:46→19:23)
[2018-07-07 09:56] LABS: Bilirubin,Urine Negative (Negative); Blood,Urine Negative (Negative); Clarity,Urine Clear (Clear); Color,Urine Yellow (Yellow); Glucose,Urine (UA) Normal (Normal); Ketones,Urine Negative (Negative); Leukocyte Esterase,Urine Negative (Negative); Nitrite,Urine Negative (Negative); Protein,Urine Negative (Neg-Trace); Specific Gravity,Urine 1.011 (1.010-1.025); Urobilinogen,Urine Normal (Normal)
--- NOTE | 2018-07-07 09:56 | Pulmonology Consult Note ---
Date of Encounter: 07/07/18 Time of Encounter: 08:00 Assessment and Plan (1) STEMI (ST elevation myocardial infarction) Current Visit: Yes Status: Acute To continue management according to cardiology. Qualifiers: Involved coronary artery: unspecified coronary artery Qualified Code(s): I21.3 - ST elevation (STEMI) myocardial infarction of unspecified site (2) Chronic respiratory failure with hypoxia Current Visit: No Status: Chronic Patient at his baseline oxygen requirements to continue O2 supplementation to keep saturation around 88-92%. (3) COPD (chronic obstructive pulmonary disease) Current Visit: Yes Status: Acute Patient COPD symptoms are stable. Qualifiers: COPD type: unspecified COPD Qualified Code(s): J44.9 - Chronic obstructive pulmonary disease, unspecified (4) Chronic systolic heart failure Current Visit: Yes Status: Acute Patient does not look fluid overloaded. (5) Lhzby-nl-kldevso kidney injury Current Visit: Yes Status: Acute Labs and output reviewed to monitor serum creatinine to avoid nephrotoxin if urine output tapers down we will give IV fluids. Qualifiers: Acute renal failure type: unspecified Chronic kidney disease stage: unspecified stage Qualified Code(s): N17.9 - Acute kidney failure, unspecified; N18.9 - Chronic kidney disease, unspecified History of Present Illness Consult date: 07/07/18 Requesting physician: Tony Brown Reason for consult: other (stemi ) Chief complaint: Chest pain History of present illness: 68-year-old male with past medical history significant for former smoker, COPD on home O2, chronic systolic heart failure with EF of 45%, diabetes, hypertension, hyperlipidemia comes with headache hypotension chronic abdominal pain found to have STEMI no percutaneous coronary intervention was done patient was admitted to the ICU for further management intensive care was consulted for other medical management. Patient denies any active chest pain but the compl aints of chronic abdominal pain right iliac fossa, denies any fever or chills. Patient denies much cough or sputum production not much shortness of breath. Past Med Surg Social Fam HX - Past Medical History Medical history: arthritis, atrial fibrillation, CHF, COPD, coronary artery disease, CVA, diabetes, GERD, hyperlipidemia, hypertension, pulmonary embolus, renal disease Additional medical history: Pacemaker, emphysema, sick sinus syndrome Psychiatric history: anxiety, depression, panic disorder - Past Surgical History Surgical History: cholecystectomy, herniorrhaphy, knee replacement, orthopedic, other, pacemaker/AICD Additional surgical history: Right knee replacement. Cardiac Ablasion. left arm - Social History Smoking Status: Former smoker Smokeless Tobacco Status: No Alcohol use: none Drug use: none - Family History Father Adopted: No Family Member Ethnicity: Non- Living Status: Hx Family Cardiac Disorders: No Hx Family Respiratory Disorders: No Hx Family Cancer: Yes Hx Family GI Disorders: No Hx Family Endocrine Disorder: No Hx Family Neuromuscular Disorders: No Hx Family Neurologic Disorders: No Hx Family HEENT Disorders: No Hx Family Autoimmune Disorders: No Brother Family Member Ethnicity: Non- Living Status: Still Living Sister Family Member Ethnicity: Non- Living Status: Still Living Mother Adopted: No Family Member Ethnicity: Non- Twin of Family Member: Yes Living Status: Hx Family Cardiac Disorders: Yes Hx Family Respiratory Disorders: No Hx Family Cancer: No Hx Family GI Disorders: No Hx Family Endocrine Disorder: No Hx Family Neuromuscular Disorders: No Hx Family Neurologic Disorders: No Hx Family HEENT Disorders: No Hx Family Autoimmune Disorders: No Medications and Allergies Amiodarone [Cordarone] 200 mg PO DAILY 04/04/18 [History] Aspirin 81 mg PO DAILY 04/04/18 [History] Atorvastatin [Lipitor] 40 mg PO HS 04/04/18 [History] Cholecalciferol (Vitamin D3) [Vitamin D3] 2,000 unit PO DAILY 04/04/18 [History] DULoxetine [Cymbalta] 30 mg PO DAILY 04/04/18 [History] Finasteride [Proscar] 5 mg PO DAILY 04/04/18 [History] Lubiprostone [Amitiza] 16 mcg PO 0800,1700 04/04/18 [History] Melatonin [Melatin] 9 mg PO HS 04/04/18 [History] Memantine HCl 10 mg PO BID 04/04/18 [History] Metoprolol XL (24 HR) Succ [Toprol Xl] 12.5 mg PO HS 04/04/18 [History] Pantoprazole Sodium [Protonix] 40 mg PO DAILY 04/04/18 [History] Rivaroxaban [Xarelto] 20 mg PO DAILY 04/04/18 [History] Sennosides/Docusate Sodium [Colace 2-in-1 Tablet] 1 each PO Q12H PRN 04/04/18 [History] Simethicone [Bicarsim] 80 mg PO Q8H PRN 04/04/18 [History] Tamsulosin HCl [Flomax] 0.4 mg PO BID 04/04/18 [History] Tizanidine HCl [Zanaflex] 2 mg PO BID 04/04/18 [History] Trazodone HCl 200 mg PO HS 04/04/18 [History] Losartan [Cozaar] 25 mg PO DAILY 04/24/18 [History] Tiotropium Br/Olodaterol HCl [Stiolto Respimat Inhal [place]] 2 puff IH DAILY 04/24/18 [History] Insulin ASPART [NovoLOG] 0 unit SQ TIDWM PRN 04/25/18 [History] Fluticasone/Salmeterol [Advair 250-50 Diskus] 1 puff IH BID 06/30/18 [History] Furosemide [Lasix] 20 mg PO DAILY 06/30/18 [History] Gabapentin [Neurontin] 400 mg PO BID 06/30/18 [History] LORazepam [Ativan] 0.5 mg PO HS PRN 06/30/18 [History] Potassium Chloride [K-Tab ER] 40 meq PO DAILY 06/30/18 [History] Spironolactone [Aldactone] 25 mg PO DAILY 06/30/18 [History] Allergy/AdvReac Type Severity Reaction Status Date / Time IVP DYE Allergy Severe Anaphylaxis Uncoded 05/13/18 15:28 All Systems: The remainder of the systems were reviewed and are negative Physical Examination Vital Signs: Vital Signs, Last 4 Hours Temp Pulse Pulse Pulse Resp BP Pulse Ox 07/07/18 08:05 97.5 F L 07/07/18 08:00 66 16 104/67 94 07/07/18 07:35 16 98 07/07/18 07:00 68 18 112/67 94 07/07/18 06:20 66 66 07/07/18 06:00 66 16 111/63 95 Auscultation: bilateral: diminished breath sounds (basilar diminshed breadth sounds ) other Results - Laboratory Findings CBC and BMP: 07/07/18 03:42 07/07/18 03:42 PT/INR, D-dimer PT 23.6 Seconds (9.4-12.1) H 07/06/18 19:32 Abnormal lab findings: Abnormal lab results MCH 26.3 pg (28.0-33.3) L 07/07/18 03:42 RDW 16.0 % (11.5-14.5) H 07/07/18 03:42 Lymphocytes # 0.5 K/mcL (0.6-4.6) L 07/07/18 03:42 PT 23.6 Seconds (9.4-12.1) H 07/06/18 19:32 BUN 26 mg/dL (8-23) H 07/07/18 03:42 Creatinine 1.64 mg/dL (0.70-1.30) H 07/07/18 03:42 Est GFR ( Amer) 51 (> 60) L 07/07/18 03:42 Est GFR (Non-Af Amer) 42 (> 60) L 07/07/18 03:42 Glucose 166 mg/dL (70-105) H 07/07/18 03:42 POC Glucose 118 mg/dL (70-99) H 07/06/18 21:45 - Microbiology Findings Microbiology Findings: Microbiology, Last 48 Hours 07/06/18 19:33 Blood Culture - Preliminary Peripheral Venipuncture Culture is incubating and being continuously monitored for growth. Final report to follow. 07/06/18 19:09 Blood Culture - Preliminary Peripheral Venipuncture Culture is incubating and being continuously monitored for growth. Final report to follow. - Clinical Findings Intake & Output: Intake & Output 07/06/18 07/07/18 07/07/18 23:59 07:59 15:59 Intake Total 1200 / 1200 300 / 300 Output Total 0 / 0 600 / 600 Balance 1200 / 1200 -300 / -300 Weight 127.5 kg 127.5 kg Consult Discharge Plan - Plan [facility]errals: [facility] [Primary Care Provider[facility] -
[2018-07-07] MEDS ORDERED: D5% in Water 1,000 ML IVC PRN ×2 (10:03→19:23)
[2018-07-07] MEDS ORDERED: Dextrose Gel 15 GM/37.5 ML TUBE PO PRN ×4 (10:03→19:23)
[2018-07-07] MEDS ORDERED: *HR* Dextrose 50 % in Water (Syg) 50 ML SYRINGE IVP PRN ×2 (10:03→19:23)
[2018-07-07] MEDS ORDERED: Perflutren Lipid Microsphere 1.3 ML in 0.9 % Sodium Chloride 8.7 ML IVP ONE (13:11)
[2018-07-07] MEDS: Insulin LISPRO 300 UNITS/3 ML VIAL SQ SCH ×2 (13:16→16:24)
[2018-07-07] MEDS: *HR* Heparin 5,000 UNIT/ML VIAL SQ SCH ×2 (13:16→18:29)
--- NOTE | 2018-07-07 19:56 | Cardiology Progress Note ---
Date of Encounter: 07/07/18 Time of Encounter: 19:54 Assessment and Plan (1) ST elevation (STEMI) myocardial infarction involving other coronary artery of inferior wall Current Visit: Yes Status: Acute Chest pain has resolved, reordered troponin and EKG, note trivial CAD, etiology of acute inferior injury pattern remains unclear. (2) Dyspnea on exertion Current Visit: No Status: Acute The assessment and plan as outlined above was discussed with the patient and/or family members who expressed understanding and agreement. All questions were answered. late afternoon fatigue, shortness of breath, near syncope resolved, no symptoms today, will continue to monitor with increase activity., (3) Sick sinus syndrome Current Visit: No Status: Chronic The assessment and plan as outlined above was discussed with the patient and/or family members who expressed understanding and agreement. All questions were answered. chronic A fib with controlled ventricular response on Amiodarone, will restart Xaralto. (4) Depression with anxiety Current Visit: No Status: Chronic The assessment and plan as outlined above was discussed with the patient and/or family members who expressed understanding and agreement. All questions were answered. Anxiety and depression somewhat controlled on current meds, (5) Hypotension Current Visit: No Status: Acute The assessment and plan as outlined above was discussed with the patient and/or family members who expressed understanding and agreement. All questions were answered. improved, not hypotensive today, creatine has improved with fluid replacement post cath. Qualifiers: Hypotension type: orthostatic hypotension Qualified Code(s): I95.1 - Orthostatic hypotension Discussion w patient/family: The assessment and plan as outlined above was discussed with the patient and/or family members who expressed understanding and agreement. All questions were answered. Thank you for involving us in the care of your patient. Please call with any questions. Subjective Principal diagnosis: chest pain, syncope Interval history: PT reports chest pain has resolved. He notes mid to late afternoon fatigue and somnolence resolved. He overall has improved since admission. Denies pain at right femoral cath site Objective Vital Signs, Last 4 Hours Temp Pulse Resp BP Pulse Ox 07/07/18 18:00 68 16 102/62 95 07/07/18 17:00 70 16 107/65 98 07/07/18 16:18 98.0 F 07/07/18 16:00 67 16 100/53 97 General: Conversant HEENT: Atraumatic, Normocephaly Neck: No JVD, Normal carotid pulses Cardiac: Normal S1 and S2, Other (irregularly irregular, controlled ventricular response with HR 70 to 110) Lungs: No Wheeze, Rales, Rhonchi, Other (breath sounds decreased. ) Neuro: Alert and responsive, No focal deficits noted Abdomen: Soft, Non-Tender Skin: No rashes noted on visualized skin Musculoskeletal: No Chest Wall Tenderness Extremities: No Clubbing, No Cyanosis Results 07/07/18 03:42 07/07/18 03:42 Lab Results 07/06/18 07/06/18 07/06/18 19:32 19:33 19:33 WBC Hgb Hct Plt Count INR 2.1 Sodium 137 Potassium 4.5 Chloride 101 Carbon Dioxide 30 H BUN 27 H Creatinine 2.15 H Glucose 99 Calcium 8.7 Troponin I < 0.03 07/07/18 07/07/18 03:42 03:42 WBC 8.6 Hgb 13.6 Hct 43.1 Plt Count 326 INR Sodium 137 Potassium 4.4 Chloride 104 Carbon Dioxide 24 BUN 26 H Creatinine 1.64 H Glucose 166 H Calcium 8.7 Troponin I - VTE Reasons for not Prescribing Prophylaxis: Refused by parent Consult Discharge Plan - Plan [facility]errals: [facility] [Primary Care Provider] -
[2018-07-07] MEDS: tiZANidine 4 MG TABLET PO SCH (20:26)
[2018-07-07] MEDS: Melatonin 3 MG TABLET PO SCH (20:58)
[2018-07-07] MEDS: traZODone 50 MG TABLET PO SCH (20:58)
[2018-07-07] MEDS ORDERED: *HR* LORazepam 1 MG TABLET PO PRN (20:59)
[2018-07-07] MEDS ORDERED: *HR* LORazepam 1 MG TABLET PO SCH (21:00)
[2018-07-08 04:59] LABS: Basophils % 0.1 %; Hematocrit 36.8 % (37.5-50.1); Immature Granulocytes % 0.6 % (0-4); Lymphocytes # 1.1 K/mcL (0.6-4.6); Lymphocytes % 7.7 %; Mean Corpuscular HGB Conc 31.8 g/dL (31.6-35.5); Mean Corpuscular Hemoglobin 26.4 pg (28.0-33.3); Mean Corpuscular Volume 83.1 fL (83.0-100.0); Mean Platelet Volume 9.8 fL (9.4-12.4); Monocytes # 1.2 K/mcL (0.0-1.3); Monocytes % 8.4 %; Platelet Count 281 K/mcL (140-400); Red Blood Count 4.43 M/mcL (4.19-5.50); Red Cell Distribution Width 16.6 % (11.5-14.5); Segmented Neutrophils % 83.2 %
[2018-07-08 05:01] LABS: Hemoglobin 11.7 g/dL (12.9-16.9)
[2018-07-08 05:09] LABS: BUN/Creatinine Ratio 18 (6-26); Blood Urea Nitrogen 25 mg/dL (8-23); Calcium 8.6 mg/dL (8.6-10.3); Carbon Dioxide 26 mEq/L (23-29); Chloride 107 mEq/L (98-107); Glucose 117 mg/dL (70-105); Osmolality,Calculated 291 (280-300); Potassium 4.7 mEq/L (3.5-5.1); Sodium 138 mEq/L (136-145); eGFR For Non-African Americans 52 (> 60)
[2018-07-08] MEDS: *HR* Heparin 5,000 UNIT/ML VIAL SQ SCH ×2 (06:26→20:12)
[2018-07-08] MEDS: Insulin LISPRO 300 UNITS/3 ML VIAL SQ SCH ×3 (08:55→17:09)
[2018-07-08] MEDS: Aspirin 81 MG TAB.CHEW PO SCH (08:56)
[2018-07-08] MEDS: Finasteride 5 MG TABLET PO SCH (08:56)
[2018-07-08] MEDS: tiZANidine 4 MG TABLET PO SCH ×2 (08:57→20:11)
[2018-07-08] MEDS: Cholecalciferol (D-3) 1,000 UNIT TABLET PO SCH (08:57)
[2018-07-08] MEDS: Budesonide/Formoterol 80/4.5 MDI IH SCH ×2 (09:26→22:45)
[2018-07-08] MEDS: (Tiotropium Br/Olodaterol Hcl [Stiolto Respimat Inhal) IH SCH (11:20)
--- NOTE | 2018-07-08 14:14 | Pulmonology Progress Note ---
Date of Encounter: 07/08/18 Time of Encounter: 08:00 Assessment and Plan (1) STEMI (ST elevation myocardial infarction) Current Visit: Yes Status: Acute Continue management according to cardiology. Qualifiers: Involved coronary artery: unspecified coronary artery Qualified Code(s): I21.3 - ST elevation (STEMI) myocardial infarction of unspecified site (2) Chronic respiratory failure with hypoxia Current Visit: No Status: Chronic Patient oxygen supplementation is at baseline. (3) COPD (chronic obstructive pulmonary disease) Current Visit: Yes Status: Acute To continue bronchodilators. Sent home on Spiriva and Symbicort as patient is transferred to medical telemetry Critical care we will sign off. Qualifiers: COPD type: unspecified COPD Qualified Code(s): J44.9 - Chronic obstructive pulmonary disease, unspecified (4) Chronic systolic heart failure Current Visit: Yes Status: Acute Patient is euvolemic on exam (5) Unqgb-hy-deksxne kidney injury Current Visit: Yes Status: Acute Labs and output were reviewed. Qualifiers: Acute renal failure type: unspecified Chronic kidney disease stage: unspecified stage Qualified Code(s): N17.9 - Acute kidney failure, uns pecified; N18.9 - Chronic kidney disease, unspecified Subjective Principal diagnosis: chest pain, syncope Interval history: Patient is post left heart catheterization with acute on chronic systolic heart failure patient is doing well no acute chest pain or chest tightness denies any shortness of breath on lying flat denies any palpitation or syncope denies any other constitutional symptoms denies any cough or sputum production. Objective PUL Vital signs: Last Vital Signs Temp 97.8 F 07/08/18 07:43 Pulse 60 07/08/18 07:43 Resp 16 07/08/18 09:26 BP 91/55 07/08/18 09:26 Pulse Ox 98 07/08/18 09:26 Auscultation: bilateral: diminished breath sounds (basilar diminshed breadth sounds ) Results - Laboratory Findings CBC and BMP: 07/08/18 04:14 07/08/18 04:14 PT/INR, D-dimer PT 23.6 Seconds (9.4-12.1) H 07/06/18 19:32 Abnormal lab findings: Abnormal lab results WBC 14.4 K/mcL (4.3-11.1) H D 07/08/18 04:14 Hgb 11.7 g/dL (12.9-16.9) L D 07/08/18 04:14 Hct 36.8 % (37.5-50.1) L 07/08/18 04:14 MCH 26.4 pg (28.0-33.3) L 07/08/18 04:14 RDW 16.6 % (11.5-14.5) H 07/08/18 04:14 Neutrophils # 12.0 K/mcL (1.6-8.9) H 07/08/18 04:14 PT 23.6 Seconds (9.4-12.1) H 07/06/18 19:32 BUN 25 mg/dL (8-23) H 07/08/18 04:14 Creatinine 1.37 mg/dL (0.70-1.30) H 07/08/18 04:14 Est GFR (Non-Af Amer) 52 (> 60) L 07/08/18 04:14 Glucose 117 mg/dL (70-105) H 07/08/18 04:14 POC Glucose 118 mg/dL (70-99) H 07/07/18 19:24 - Microbiology Findings Microbiology Findings: Microbiology, Last 48 Hours 07/06/18 19:33 Blood Culture - Preliminary Peripheral Venipuncture Culture is incubating and being continuously monitored for growth. Final report to follow. 07/06/18 19:09 Blood Culture - Preliminary Peripheral Venipuncture Culture is incubating and being continuously monitored for growth. Final report to follow. - Clinical Findings Intake & Output: Intake & Output 07/07/18 07/08/18 07/08/18 23:59 07:59 15:59 Intake Total 0 / 0 Output Total 0 / 0 Balance 0 / 0 0 / 0 Weight 126 kg - VTE Reasons for not Prescribing Prophylaxis: Refused by parent Consult Discharge Plan - Plan [facility]errals: [facility] [Primary Care Provider] -
[2018-07-08] MEDS: Melatonin 3 MG TABLET PO SCH (20:11)
[2018-07-08] MEDS: traZODone 50 MG TABLET PO SCH (20:11)
--- NOTE | 2018-07-08 22:34 | Cardiology Progress Note ---
Date of Encounter: 07/08/18 Time of Encounter: 22:31 Assessment and Plan (1) ST elevation (STEMI) myocardial infarction involving other coronary artery of inferior wall Current Visit: Yes Status: Acute Chest pain has resolved, EKG back to baseline, repeat troponin ordered, not on chart, will reorder for AM. (2) Dyspnea on exertion Current Visit: No Status: Acute The assessment and plan as outlined above was discussed with the patient and/or family members who expressed understanding and agreement. All questions were answered. shortness of breath and near syncope resolved, no symptoms today, increase activity to begin walking with walker, (3) Sick sinus syndrome Current Visit: No Status: Chronic The assessment and plan as outlined above was discussed with the patient and/or family members who expressed understanding and agreement. All questions were answered. chronic A fib with controlled ventricular response off amiodarone, will restart Xaralto. (4) Depression with anxiety Current Visit: No Status: Chronic The assessment and plan as outlined above was discussed with the patient and/or family members who expressed understanding and agreement. All questions were answered. Anxiety and depression somewhat controlled, resume Cymbalta, monitor clinically for afternoon fatique, somnolence. (5) Hypotension Current Visit: No Status: Acute The assessment and plan as outlined above was discussed with the patient and/or family members who expressed understanding and agreement. All questions were answered. resolved, chronic kidney disease stable post cath, continue to observe. Qualifiers: Hypotension type: orthostatic hypotension Qualified Code(s): I95.1 - Orthostatic hypotension Code(s): I95.9 - Hypotension, unspecified (6) Diarrhea Current Visit: Yes Status: Acute New complaint, will consult IM to evaluate, and to reassess diabetic medications. Qualifiers: Diarrhea type: unspecified type Qualified Code(s): R19.7 - Diarrhea, unspe cified Discussion w patient/family: The assessment and plan as outlined above was discussed with the patient and/or family members who expressed understanding and agreement. All questions were answered. Thank you for involving us in the care of your patient. Please call with any questions. Subjective Principal diagnosis: chest pain, syncope Interval history: Pt reports chest pain has resolved, dizziness at rest and with change in position has resolved. Pt complains of loose stool last pm and after breakfast, has avoided eating all day because he feels eating contributes to bowel movement. He overall feels much better, late afternoon synocope, somnolence has resolved. Objective Vital Signs, Last 4 Hours Temp Pulse Resp BP Pulse Ox 07/08/18 19:58 96 07/08/18 19:25 98.1 F 63 16 105/68 96 General: Conversant HEENT: Atraumatic, Normocephaly Neck: No JVD Cardiac: Normal S1 and S2 Lungs: Other (decreased breath sounds bilat, mild scattered rhonchi, clear with cough. ) Neuro: Alert and responsive, No focal deficits noted Abdomen: Soft, Non-Tender Skin: No rashes noted on visualized skin Musculoskeletal: No Chest Wall Tenderness Extremities: Other (mild bilat pretibial edema. ) Results 07/08/18 04:14 07/08/18 04:14 Lab Results 07/08/18 07/08/18 04:14 04:14 WBC 14.4 H D Hgb 11.7 L D Hct 36.8 L Plt Count 281 Sodium 138 Potassium 4.7 Chloride 107 Carbon Dioxide 26 BUN 25 H Creatinine 1.37 H Glucose 117 H Calcium 8.6 - VTE Reasons for not Prescribing Prophylaxis: Refused by parent Consult Discharge Plan - Plan [facility] [Primary Care Provider] -
[2018-07-09] MEDS: *HR* Heparin 5,000 UNIT/ML VIAL SQ SCH (06:35)
[2018-07-09] MEDS: Budesonide/Formoterol 80/4.5 MDI IH SCH ×2 (07:47→20:49)
[2018-07-09 08:47] LABS: Basophils # 0.1 K/mcL (0.0-0.2); Basophils % 0.6 %; Eosinophils # 0.3 K/mcL (0.0-0.6); Eosinophils % 2.9 %; Hematocrit 39.6 % (37.5-50.1); Hemoglobin 12.6 g/dL (12.9-16.9); Immature Granulocytes % 1.3 % (0-4); Lymphocytes # 1.6 K/mcL (0.6-4.6); Lymphocytes % 18.5 %; Mean Corpuscular HGB Conc 31.8 g/dL (31.6-35.5); Mean Corpuscular Hemoglobin 26.5 pg (28.0-33.3); Mean Corpuscular Volume 83.2 fL (83.0-100.0); Mean Platelet Volume 9.6 fL (9.4-12.4); Monocytes # 0.9 K/mcL (0.0-1.3); Monocytes % 10.8 %; Neutrophils # 5.8 K/mcL (1.6-8.9); Platelet Count 263 K/mcL (140-400); Red Blood Count 4.76 M/mcL (4.19-5.50); Red Cell Distribution Width 16.5 % (11.5-14.5); Segmented Neutrophils % 65.9 %
[2018-07-09] MEDS: Aspirin 81 MG TAB.CHEW PO SCH (09:00)
[2018-07-09] MEDS: Finasteride 5 MG TABLET PO SCH (09:00)
[2018-07-09] MEDS: (Tiotropium Br/Olodaterol Hcl [Stiolto Respimat Inhal) IH SCH (09:01)
[2018-07-09] MEDS: tiZANidine 4 MG TABLET PO SCH ×2 (09:01→20:15)
[2018-07-09] MEDS: Cholecalciferol (D-3) 1,000 UNIT TABLET PO SCH (09:01)
[2018-07-09 09:11] LABS: BUN/Creatinine Ratio 18 (6-26); Blood Urea Nitrogen 23 mg/dL (8-23); Calcium 8.7 mg/dL (8.6-10.3); Carbon Dioxide 26 mEq/L (23-29); Chloride 104 mEq/L (98-107); Glucose 131 mg/dL (70-105); Osmolality,Calculated 289 (280-300); Potassium 4.7 mEq/L (3.5-5.1); Sodium 137 mEq/L (136-145); eGFR For Non-African Americans 54 (> 60)
[2018-07-09] MEDS: *HR* Amiodarone 200 MG TABLET PO SCH (09:36)
[2018-07-09] MEDS: Insulin LISPRO 300 UNITS/3 ML VIAL SQ SCH ×3 (09:41→16:28)
--- NOTE | 2018-07-09 11:11 | Cardiology Progress Note ---
Addendum entered and electronically signed by Devin Mejía MD 07/09/18 16:13: I have personally performed a face to face evaluation on this patient. I have reviewed and agree with the documented findings and care plan as documented by the WASHER CARCASS. History and Exam by me shows: 68-year-old male with clinical features and EKG findings strongly suggestive of myopericarditis. Presence of MRI incompatible pacemaker precludes Cardiac MRI. We will treat empirically with aspirin. Avoid NSAIDs. Continue beta brisa and BRENDEN inhibitor if blood pressure allows. He will need close cardiology follow-up. Thanks, Devin Mejía MD Original Note: Date of Encounter: 07/09/18 Time of Encounter: 10:30 Assessment and Plan (1) Myopericarditis Current Visit: Yes Status: Acute Suspect symptoms, presentation, and ECG abnormalities secondary to myocarditis. Reports significant hypotension at home prior to admission, SBP 40's, reported multiple similar episodes in the past several months. ECG shows diffuse ST elevation consistent with myopericarditis, suspect myocarditis at this time. Check ESR, CRP Ideally, recommend Cardiac MRI to further evaluation (outpatient); however patient has pacemaker that is not compatible with MRI. LHC: mild, non-obstructive CAD, EF 45% TTE: LVEF 60%, mild AR, NICOLETTE, mild-moderate TR, no PH, normal wall motion Will increase asa 325 mg daily (x2 weeks) for symptom relief; then decrease down to 81 mg daily. Continue BB, will hold ARB given hypotension. Resume low dose lasix today. Wrap BLE in BRENDEN bandages. Up to chair TID, ambulate with assist. If stable, plan on discharge in AM. (2) Juhrk-[id number] kidney injury Current Visit: Yes Status: Acute SCr 2.15 upon admission, now 1.17. Likely secondary to hypotension. Resume lasix today as patient c/o increasing edema--will start Lasix 20 mg BID. Recheck BMP in AM. Qualifiers: Acute renal failure type: unspecified Chronic kidney disease stage: unspeci fied stage Qualified Code(s): N17.9 - Acute kidney failure, unspecified; N18.9 - Chronic kidney disease, unspecified (3) STEMI (ST elevation myocardial infarction) Current Visit: Yes Status: Ruled-out Initial ECG concerning for STEMI--troponin negative. LHC demonstrated mild, non-obstructive CAD. Discussed with Dr. Mejía, STEMI has been ruled out. Suspect diffuse ST elevations likely secondary to myocarditis vs. pericarditis. Qualifiers: Involved coronary artery: unspecified coronary artery Qualified Code(s): I21.3 - ST elevation (STEMI) myocardial infarction of unspecified site (4) Paroxysmal a-fib Current Visit: No Status: Chronic Hx of Afib; follows with EP at [facility] s/p EPS and AF ablation at [facility] in 09/2015. Hx of SSS s/p dual chamber PPM Hx of failed rythmol and tikosyn. Has maintained NSR since admission, HR 60's SR upon exam. Will continue amiodaro ne and Xarelto as in the outpatient setting. (5) Diabetes mellitus Current Visit: No Status: Chronic Hospitalist team consulted, appreciate management. On SSI. Qualifiers: Diabetes mellitus type: type 2 Diabetes mellitus terminal press operator insulin use: without terminal press operator use Diabetes mellitus complication status: with kidney complications Diabetes mellitus complication detail: with chronic kidney disease Chronic kidney disease stage: stage 3 (moderate) Qualified Code(s): E11.22 - Type 2 diabetes mellitus with diabetic chronic kidney disease; N18.3 - Chronic kidney disease, stage 3 (moderate) Discussion w patient/family: The assessment and plan as outlined above was discussed with the patient and/or family members who expressed understanding and agreement. All questions were answered. Thank you for involving us in the care of your patient. Please call with any questions. The patient will be discussed and reviewed with Dr. Mejía, changes to be made accordingly. Subjective Principal diagnosis: chest pain, syncope Interval history: Seen and examined. First encounter with patient this AM. Events of hospitalization reviewed with Dr. Mejía. Patient reports x3 week history of productive cough (brown) with associated cold/flu-like symptoms. Reports was [facility] Reports hypotensive episode at home with SBP 40's, which prompted ED evaluation. 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 LHC demonstrated mild, non-obstructive CAD. EF 45%. Objective Vital Signs, Last 4 Hours Temp Pulse Resp BP Pulse Ox 07/09/18 09:24 98.2 F 71 17 123/76 96 07/09/18 07:48 16 95 General: Other (appears chronically ill) HEENT: Atraumatic, Normocephaly Neck: No JVD Cardiac: Reg Rate and Rhythm, Normal S1 and S2 Lungs: Normal Breath Sounds Neuro: Alert and responsive Abdomen: Soft Skin: No rashes noted on visualized skin Musculoskeletal: No Chest Wall Tenderness Extremities: Other (+2-3 bilateral lower extremity pitting edema) Results 07/09/18 08:37 07/09/18 08:37 Lab Results 07/09/18 07/09/18 08:37 08:37 WBC 8.7 Hgb 12.6 L Hct 39.6 Plt Count 263 Sodium 137 Potassium 4.7 Chloride 104 Carbon Dioxide 26 BUN 23 Creatinine 1.31 H Glucose 131 H Calcium 8.7 Active Medications Albuterol/Ipratropium (Duoneb) 3 ml IH [id number] PRN PRN Reason: Shortness Of Breath/Wheezing Stop: 01/06/19 09:47 Amiodarone HCl (Cordarone) 200 mg PO DAILY [facility] Stop: 01/08/19 09:01 Last Admin: 07/09/18 09:36 Dose: 200 mg Aspirin (Aspirin) 81 mg PO DAILY [facility] Stop: 01/06/19 09:01 Last Admin: 07/09/18 09:00 Dose: 81 mg Atorvastatin Calcium (Lipitor) 40 mg PO HS [facility] Stop: 01/06/19 21:01 Last Admin: 07/08/18 20:11 Dose: 40 mg Budesonide/Formoterol Fumarate (Symbicort) 1 puff IH BIDR [facility] Stop: 01/05/19 22:01 Last Admin: 07/09/18 07:47 Dose: 1 puff Dextrose/Water (Dextrose 50% (Syg)) 25 ml IVP AD PRN PRN Reason: Hypoglycemia Stop: 01/06/19 10:04 Duloxetine HCl (Cymbalta) 30 mg PO DAILY [facility] Stop: 01/06/19 09:01 Last Admin: 07/09/18 09:01 Dose: 30 mg Finasteride (Proscar) 5 mg PO DAILY [facility]; Protocol Stop: 01/06/19 09:01 Last Admin: 07/09/18 09:00 Dose: 5 mg Furosemide (Lasix) 20 mg PO BID [facility] Stop: 01/08/19 11:01 Glucagon (Glucagen) 1 mg IM ONCE PRN PRN Reason: Hypoglycemia Stop: 01/06/19 10:04 Glucose (Gluctose) 15 gm PO ONCE PRN PRN Reason: Hypoglycemia Stop: 01/06/19 10:04 Glucose (Gluctose) 30 gm PO ONCE PRN PRN Reason: Hypoglycemia Stop: 01/06/19 10:04 Insulin Human Lispro (Humalog) 0 units SQ TIDAC [facility]; Protocol Stop: 01/06/19 11:31 Last Admin: 07/09/18 09:41 Dose: 2 unit Lorazepam (Ativan) 0.5 mg PO HS PRN PRN Reason: Anxiety Stop: 01/06/19 21:01 Melatonin (Melatonin) 9 mg PO [facility] Stop: 01/06/19 21:01 Last Admin: 07/08/18 20:11 Dose: 9 mg Metoprolol Succinate (Toprol Xl) 12.5 mg PO HS [facility] Stop: 01/08/19 21:01 Non-Formulary Medication (Lubiprostone [Amitiza]) 16 mcg PO 0800,1700 [facility] Stop: 01/08/19 17:01 Omeprazole (Prilosec) 20 mg PO 0630 [facility] Stop: 01/06/19 06:31 Last Admin: 07/09/18 06:35 Dose: 20 mg Pharmacy Profile Note (Patient Taking Own Medication) 2 each IH DAILY [facility] Stop: 01/06/19 09:01 Last Admin: 07/09/18 09:01 Dose: Not Given Potassium Chloride (Potassium Chloride) 20 meq PO TID [facility] Stop: 01/06/19 09:01 Last Admin: 07/09/18 09:00 Dose: 20 meq Rivaroxaban (Xarelto) 20 mg PO 1700 [facility] Stop: 01/08/19 17:01 Tamsulosin HCl (Flomax) 0.4 mg PO BID [facility]; Protocol Stop: 01/06/19 09:01 Last Admin: 07/09/18 09:00 Dose: 0.4 mg Tizanidine HCl (Zanaflex) 2 mg PO BID [facility] Stop: 01/06/19 09:01 Last Admin: 07/09/18 09:01 Dose: 2 mg Trazodone HCl (Trazodone) 200 mg PO HS [facility] Stop: 01/06/19 21:01 Last Admin: 07/08/18 20:11 Dose: 200 mg Vitamin D (Vitamin D) 1,000 unit PO DAILY [facility] Stop: 01/06/19 09:01 Last Admin: 07/09/18 09:01 Dose: 1,000 unit - Imaging and Cardiology Echo: report reviewed Cardiac cath: report reviewed - EKG Interpretation EKG results cardiology: personally reviewed - VTE Reasons for not Prescribing Prophylaxis: Refused by parent Consult Discharge Plan - Plan [facility]errals: [facility] [Primary Care Provider] -
[2018-07-09] MEDS: Furosemide 20 MG TABLET PO SCH ×2 (11:59→18:09)
--- NOTE | 2018-07-09 14:35 | Electrocardiograph Report ---
[address] [place], [place] [address] Test Date: 2018-07-06 Pat Name: Dakota Issa Department: EXAM5 Room: [facility] Gender: M Laboratory Aide: : 1950 Requested By: Asif Ames Order Number: [id number] Reading MD: Radha Joseph Measurements Intervals [place] Rate: 68 P: DC: 137 QRS: 77 QRSD: 103 T: 76 QT: 428 QTc: 456 Interpretive Statements Atrial-paced rhythm Low voltage, precordial leads Probable inferolatral infarct, age indeterminate Electronically Signed On 07-09-2018 14:33:50 EST by Radha Joseph
--- NOTE | 2018-07-09 15:24 | Internal Medicine Consult Note ---
Date of Encounter: 07/09/18 Time of Encounter: 14:00 - Assessment and plan (1) Diabetes Current Visit: No Status: Acute Assessment and plan: His last HbA1C 6.5 from 02/17 He was on ISS at home no PO meds cont current ISS will check HbA1C in AM will make further recommendations depending his HbA1C Qualifiers: Diabetes mellitus type: type 2 Diabetes mellitus roasterman insulin use: with roasterman use Diabetes mellitus complication detail: with chronic kidney disease Chronic kidney disease stage: stage 2 (mild) Qualified Code(s): E11.22 - Type 2 diabetes mellitus with diabetic chronic kidney disease; N18.2 - Chronic kidney disease, stage 2 (mild); 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 (2) Myopericarditis Current Visit: Yes Status: Acute Assessment and plan: cont treatment as per Card on ASA 325mg , BB and Statin (3) STEMI (ST elevation myocardial infarction) Current Visit: Yes Status: Ruled-out Assessment and plan: reviewed 2 D Echo Cont treatment as per primary team Card Qualifiers: Involved coronary artery: unspecified coronary artery Qualified Code(s): I21.3 - ST elevation (STEMI) myocardial infarction of unspecified site (4) [id number] kidney injury Current Visit: Yes Status: Acute Assessment and plan: Improving Resumed Lasix today cont close monitoring Qualifiers: Acute renal failure type: unspecified Chronic kidney disease stage: unspecified stage Qualified Code(s): N17.9 - Acute kidney failure, unspecified; N18.9 - Chronic kidney disease, unspecified (5) COPD (chronic obstructive pulmonary disease) Current Visit: Yes Status: Acute Assessment and plan: not in exacerbation Cont all home medications Qualifiers: COPD type: unspecified COPD Qualified Code(s): J44.9 - Chronic obstructive pulmonary disease, unspecified (6) BPH (benign prostatic hyperplasia) Current Visit: No Status: Acute Assessment and plan: cont home meds Qualifiers: Lower urinary tract symptom presence: symptoms present Lower urinary tract symptom detail: urinary obstruction Qualified Code(s): N40.1 - Benign pr ostatic hyperplasia with lower urinary tract symptoms; N13.8 - Other obstructive and reflux uropathy; N13.8 - Other obstructive and reflux uropathy (7) HLD (hyperlipidemia) Current Visit: No Status: Chronic Qualifiers: Hyperlipidemia type: pure hypercholesterolemia Qualified Code(s): E78.00 - Pure hypercholesterolemia, unspecified; E78.0 - Pure hypercholesterolemia (8) HTN (hypertension) Current Visit: No Status: Chronic Assessment and plan: stable BP with current regimen Qualifiers: Hypertension type: essential hypertension Qualified Code(s): I10 - Essential (primary) hypertension (9) Diastolic CHF, chronic Current Visit: No Status: Chronic Assessment and plan: slightly volume overloaded resumed Lasix by Card cont close monitoring for now - Time Spent With Patient Total time spent is greater than 50% in coordination of care (as documented) at patient's floor/unit and/or counseling patient: Internal Medicine - CN: HPI - Data of Consult Patient: known to practice within the last 3 years Consult date: 07/09/18 Requesting Physician: Karuna Medina MD - Consult Narrative Reason for consult: Diabetes management History of present illness: Mr. Issa is a 68 year old male past medical history of COPD, chronic respiratory failure on 2L, CVA x 3, pacemaker, afib on Xarelto and Amiodarone), CKD-3, DM-II, HTN, HLD, BPH, Chronic diastolic CHF and former smoker who admitted here for STEMI consistent with myocarditis. Pt was placed on ASA 325mg and BB. We are consulted to manage his blood sugars. Patient denied any active chest pain now. He denied any SOB. He does have b/l LE edema. His blood sugars are well controlled with ISS here. His last HbA1C 6.5 from 02/17. At home he is not on any PO DM2 medications he takes ISS only. Past Med Surg Social Fam HX - Past Medical History Medical history: arthritis, atrial fibrillation, CHF, COPD, coronary artery disease, CVA, diabetes, GERD, hyperlipidemia, hypertension, pulmonary embolus, renal disease Additional medical history: Pacemaker, emphysema, sick sinus syndrome Psychiatric history: anxiety, depression, panic disorder - Past Surgical History Surgical History: cholecystectomy, herniorrhaphy, knee replacement, orthopedic, other, pacemaker/AICD Additional surgical history: Right knee replacement. Cardiac Ablasion. left arm - Social History Smoking Status: Former smoker Smokeless Tobacco Status: No Alcohol use: none Drug use: none - Family History Father Adopted: No Family Member Ethnicity: Non- Living Status: Hx Family Cardiac Disorders: No Hx Family Respiratory Disorders: No Hx Family Cancer: Yes Hx Family GI Disorders: No Hx Family Endocrine Disorder: No Hx Family Neuromuscular Disorders: No Hx Family Neurologic Disorders: No Hx Family HEENT Disorders: No Hx Family Autoimmune Disorders: No Brother Family Member Ethnicity: Non- Living Status: Still Living Sister Family Member Ethnicity: Non- Living Status: Still Living Mother Adopted: No Family Member Ethnicity: Non- Twin of Family Member: Yes Living Status: Hx Family Cardiac Disorders: Yes Hx Family Respiratory Disorders: No Hx Family Cancer: No Hx Family GI Disorders: No Hx Family Endocrine Disorder: No Hx Family Neuromuscular Disorders: No Hx Family Neurologic Disorders: No Hx Family HEENT Disorders: No Hx Family Autoimmune Disorders: No Review of systems: All the systems are reviewed everything is benign except the systems and symptoms I mentioned in the history of present illness Internal Medicine - CN: Meds Amiodarone [Cordarone] 200 mg PO DAILY 04/04/18 [History] Aspirin 81 mg PO DAILY 04/04/18 [History] Atorvastatin [Lipitor] 40 mg PO HS 04/04/18 [History] Cholecalciferol (Vitamin D3) [Vitamin D3] 2,000 unit PO DAILY 04/04/18 [History] DULoxetine [Cymbalta] 30 mg PO DAILY 04/04/18 [History] Finasteride [Proscar] 5 mg PO DAILY 04/04/18 [History] Lubiprostone [Amitiza] 16 mcg PO 0800,1700 04/04/18 [History] Melatonin [Melatin] 9 mg PO HS 04/04/18 [History] Memantine HCl 10 mg PO BID 04/04/18 [History] Metoprolol XL (24 HR) Succ [Toprol Xl] 12.5 mg PO HS 04/04/18 [History] Pantoprazole Sodium [Protonix] 40 mg PO DAILY 04/04/18 [History] Rivaroxaban [Xarelto] 20 mg PO DAILY 04/04/18 [History] Sennosides/Docusate Sodium [Colace 2-in-1 Tablet] 1 each PO Q12H PRN 04/04/18 [History] Simethicone [Bicarsim] 80 mg PO Q8H PRN 04/04/18 [History] Tamsulosin HCl [Flomax] 0.4 mg PO BID 04/04/18 [History] Tizanidine HCl [Zanaflex] 2 mg PO BID 04/04/18 [History] Trazodone HCl 200 mg PO HS 04/04/18 [History] Losartan [Cozaar] 25 mg PO DAILY 04/24/18 [History] Tiotropium Br/Olodaterol HCl [Stiolto Respimat Inhal [place]] 2 puff IH DAILY 04/24/18 [History] Insulin ASPART [NovoLOG] 0 unit SQ TIDWM PRN 04/25/18 [History] Fluticasone/Salmeterol [Advair 250-50 Diskus] 1 puff IH BID 06/30/18 [History] Furosemide [Lasix] 20 mg PO DAILY 06/30/18 [History] Gabapentin [Neurontin] 400 mg PO BID 06/30/18 [History] LORazepam [Ativan] 0.5 mg PO HS PRN 06/30/18 [History] Potassium Chloride [K-Tab ER] 40 meq PO DAILY 06/30/18 [History] Spironolactone [Aldactone] 25 mg PO DAILY 06/30/18 [History] Allergy/AdvReac Type Severity Reaction Status Date / Time IVP DYE Allergy Severe Anaphylaxis Uncoded 05/13/18 15:28 Hospitalist - CN: Exam - Constitutional Vitals: Temp Pulse Resp BP Pulse Ox 98.6 F 68 18 123/70 95 07/09/18 12:10 07/09/18 12:10 07/09/18 12:10 07/09/18 12:10 07/09/18 12:10 General appearance IM: Present: cooperative, A&O X 3, no acute distress Exam: Gen: Alert, awake, Oriented to time,place and person Chest: Diminished breath sounds B/L, No wheezing, No crackles, No rales Heart: S1S2+ RRR No murmurs Abd: Soft, NT, BS +, No organomegaly Ext:1+ pitting edema, pulses are palpable, No calf tenderness Neuro : Benign findings Skin: No rash. - Head Head exam: Present: atraumatic, normal inspection - Neck Neck exam general surgery: Present: full ROM, supple - Respiratory Respiratory exam: Present: decreased breath sounds. Absent: rales, respiratory distress, rhonchi, wheezes - Cardiovascular Cardiovascular exam IM: Present: RRR, +S1, +S2. Absent: tachycardia - GI/Abdominal GI/Abdominal exam IM: Present: normal bowel sounds, soft. Absent: rebound, rigid, tenderness - Extremities Exam Extremities exam IM: Present: pedal edema (1+ pitting edema). Absent: calf tenderness, tenderness - Back Exam Back exam: Absent: CVA tenderness (L), CVA tenderness (R) - Psychiatric Psychiatric exam: Present: normal affect, normal mood - Skin Skin exam IM: Absent: rash Internal Medicine - CN: Reslt - Labs CBC & Chem 7: 07/09/18 08:37 07/09/18 08:37 Labs: Short CBC 07/09/18 Range/Units 08:37 WBC 8.7 (4.3-11.1) K/mcL Hgb 12.6 L (12.9-16.9) g/dL Hct 39.6 (37.5-50.1) % Plt Count 263 (140-400) K/mcL Neutrophils # 5.8 (1.6-8.9) K/mcL BMP 07/09/18 08:37 Sodium 137 Potassium 4.7 Chloride 104 Carbon Dioxide 26 BUN 23 Creatinine 1.31 H Glucose 131 H Calcium 8.7 - ABG Interpretation ABG results: PT/INR, D-dimer PT 23.6 Seconds (9.4-12.1) H 07/06/18 19:32 Consult Discharge Plan - Plan [facility]errals: [facility] [Primary Care Provider] -
[2018-07-09] MEDS: LUBIPROSTONE PO SCH (16:28)
[2018-07-09] MEDS ORDERED: *HR* Rivaroxaban 10 MG TABLET PO SCH (17:00)
[2018-07-09] MEDS: Melatonin 3 MG TABLET PO SCH (20:17)
[2018-07-09] MEDS: traZODone 50 MG TABLET PO SCH (20:22)
[2018-07-09] MEDS ORDERED: Metoprolol XL (24 HR) Succ 25 MG TAB.ER.24H PO SCH (21:00)
[2018-07-10 05:03] LABS: BUN/Creatinine Ratio 17 (6-26); Blood Urea Nitrogen 23 mg/dL (8-23); Calcium 9.2 mg/dL (8.6-10.3); Carbon Dioxide 28 mEq/L (23-29); Chloride 100 mEq/L (98-107); Glucose 98 mg/dL (70-105); Osmolality,Calculated 288 (280-300); Potassium 4.2 mEq/L (3.5-5.1); Sodium 137 mEq/L (136-145); eGFR For Non-African Americans 51 (> 60)
[2018-07-10 06:39] LABS: Estimated Average Glucose 143 mg/dl; Hemoglobin A1C 6.6 %
[2018-07-10 06:43] VITALS: BP 115/72
[2018-07-10] MEDS: Insulin LISPRO 300 UNITS/3 ML VIAL SQ SCH (08:09)
[2018-07-10] MEDS: tiZANidine 4 MG TABLET PO SCH (08:41)
[2018-07-10] MEDS: Finasteride 5 MG TABLET PO SCH (08:42)
[2018-07-10] MEDS: LUBIPROSTONE PO SCH (08:42)
[2018-07-10] MEDS: Cholecalciferol (D-3) 1,000 UNIT TABLET PO SCH (08:42)
[2018-07-10] MEDS: *HR* Amiodarone 200 MG TABLET PO SCH (08:42)
[2018-07-10] MEDS: Furosemide 20 MG TABLET PO SCH (08:42)
[2018-07-10] MEDS: (Tiotropium Br/Olodaterol Hcl [Stiolto Respimat Inhal) IH SCH (08:43)
[2018-07-10] MEDS ORDERED: Aspirin 81 MG TAB.CHEW PO SCH (09:00)
--- NOTE | 2018-07-10 09:20 | Discharge Summary ---
Orders not resulted at time of discharge: Pending orders 07/06/18 19:33 Culture,Blood [BC] Stat 07/06/18 19:38 CL Cardiac Catheterization [CL] Routine 07/07/18 20:06 ECG 12 lead ECG [ECG] Routine 07/09/18 11:08 ECG 12 lead ECG [ECG] Routine Date of Encounter: 07/10/18 Time of Encounter: 09:19 - Discharge Diagnosis (1) Myopericarditis Priority: Primary Status: Acute (2) AG (acute kidney injury) Priority: Primary Status: Acute (3) Hypotension Priority: Primary Status: Acute Qualifiers: Hypotension type: unspecified hypotension type Qualified Code(s): I95.9 - Hypotension, unspecified (4) Paroxysmal A-fib Priority: Secondary Status: Chronic (5) Diabetes mellitus Priority: Secondary Status: Chronic Qualifiers: Diabetes mellitus type: type 2 Diabetes mellitus fpc insulin use: without intermediate project manager use Diabetes mellitus complication status: with neurologic complications Diabetes mellitus complication detail: with polyneuropathy Qualified Code(s): E11.42 - Type 2 diabetes mellitus with diabetic polyneuropathy - Hospital Course Hospital course: Mr. Issa is a 68 year old male with past medical history significant for NICMP that resolved, dual chamber PPM placement in 2017, atrial fibrillation maintained on amiodarone, COPD on home O2, and DM who presented with the c/o dizziness, headache, and chronic abdominal pain. He was found to have hypotension and AG (SCr 2.15). Further evaluation with EKG revealed concern for ST elevated [place]. He was taken urgently to the label pinker and found to have trivial CAD. TTE completed showed improvement in EF at 60%. He was diagnosed with jessica- pericarditis. He reports recent viral illness. Supportive care, asa, statin, and bb recommended. Recommend avoiding NSAIDS with AG. His home medications cozaar, aldactone, and lasix was held for his AG and hypotension. Kidney function did improve. Hospitalist consulted for DM and AG. Recommendations a ppreciated. He is recommended to restart cozaar for his CKD. He was started back on his lasix. Continue to hold aldactone. Today he is currently euvolemic. B/p improved. Hgb AIc was 6.6. He is on sliding scale insulin at home and will continue current regimen. He denies chest pain, SOB, or dizziness. He is ready for discharge home. Other work-up included: CT head was negative. CT abdomen and pelvis ordered in the ED showed possible contrast or debris in bladder. No acute abnormality. TTE showed EF 60%. Mild MR, AR. Mild to moderate TR. CXR- small left pleural effusion verses pleural thickening. - Time Spent with Patient Total time spent providing and/or coordinating discharge services: Greater than 30 minutes - Discharge Medications Prescriptions: Furosemide [Lasix] 20 mg PO BIDDIURETIC #60 tablet Losartan [Cozaar] 12.5 mg PO DAILY #30 tablet Potassium Chloride 20 meq PO TID #90 tab.er.prt Home Medications: Amiodarone [Cordarone] 200 mg PO DAILY 04/04/18 [History] Aspirin 81 mg PO DAILY 04/04/18 [History] Atorvastatin [Lipitor] 40 mg PO HS 04/04/18 [History] Cholecalciferol (Vitamin D3) [Vitamin D3] 2,000 unit PO DAILY 04/04/18 [History] DULoxetine [Cymbalta] 30 mg PO DAILY 04/04/18 [History] Finasteride [Proscar] 5 mg PO DAILY 04/04/18 [History] Lubiprostone [Amitiza] 16 mcg PO 0800,1700 04/04/18 [History] Melatonin [Melatin] 9 mg PO HS 04/04/18 [History] Memantine HCl 10 mg PO BID 04/04/18 [History] Metoprolol XL (24 HR) Succ [Toprol Xl] 12.5 mg PO HS 04/04/18 [History] Pantoprazole Sodium [Protonix] 40 mg PO DAILY 04/04/18 [History] Rivaroxaban [Xarelto] 20 mg PO DAILY 04/04/18 [History] Sennosides/Docusate Sodium [Colace 2-in-1 Tablet] 1 each PO Q12H PRN 04/04/18 [H istory] Simethicone [Bicarsim] 80 mg PO Q8H PRN 04/04/18 [History] Tamsulosin HCl [Flomax] 0.4 mg PO BID 04/04/18 [History] Tizanidine HCl [Zanaflex] 2 mg PO BID 04/04/18 [History] Trazodone HCl 200 mg PO HS 04/04/18 [History] Tiotropium Br/Olodaterol HCl [Stiolto Respimat Inhal Robbins] 2 puff IH DAILY 04/24/18 [History] Insulin ASPART [NovoLOG] 0 unit SQ TIDWM PRN 04/25/18 [History] Fluticasone/Salmeterol [Advair 250-50 Diskus] 1 puff IH BID 06/30/18 [History] Gabapentin [Neurontin] 400 mg PO BID 06/30/18 [History] LORazepam [Ativan] 0.5 mg PO HS PRN 06/30/18 [History] Furosemide [Lasix] 20 mg PO BIDDIURETIC #60 tablet 07/10/18 [Rx] Losartan [Cozaar] 12.5 mg PO DAILY #30 tablet 07/10/18 [Rx] Potassium Chloride 20 meq PO TID #90 tab.er.prt 07/10/18 [Rx] Allergies/Adverse Reactions: Allergy/AdvReac Type Severity Reaction Status Date / Time IVP DYE Allergy Severe Anaphylaxis Uncoded 05/13/18 15:28 Date of admission: 07/06/18 19:39 [facility] care physician: [facility] Consults: 07/06/18 21:34 Consult to Cardiac Rehabilitation-Phase1 [CONS] Routine Comment: Reason for Consult: AMI Call Completed: Yes Consult to Nurse Navigator [CONS] Routine Comment: 07/08/18 22:44 Consult to Hospitalist [CONS] Routine Consulting Provider: Hospitalist Britta Reason for Consult: evaluate diarrhea, diabetes Time Notified: 10:30 Call Completed: No Discharging clinician: Ankush Zhao Anticipated date of discharge: 07/10/18 Physical Examination Vital Signs, Last 4 Hours Temp Pulse Resp BP 07/10/18 06:40 98.3 F 61 18 115/72 General: Conversant, No Apparent Distress HEENT: Atraumatic, Normocephaly, Mucus Membranes Moist Neck: No JVD, Normal carotid pulses Cardiac: Reg Rate and Rhythm, Normal S1 and S2, No Murmur, Other (TED device) Lungs: Normal Breath Sounds, No Wheeze, Rales, Rhonchi, Other Neuro: Alert and responsive, No focal deficits noted Abdomen: Soft, Non-Tender Skin: No rashes noted on visualized skin Musculoskeletal: No Chest Wall Tenderness Extremities: No Clubbing, No Cyanosis, No Edema, Other (pedal pulses 1/4+) - Patient Status Disposition: Home, Self-Care Condition: Critical Overall status at discharge: patient is progressing back to baseline - Discharge Instructions Follow Up With: [facility] [Primary Care Provider] - Forms: ED Satisfaction Letter - VTE Reasons for not Prescribing Prophylaxis: Refused by parent
--- NOTE | 2018-07-10 11:57 | Internal Med Progress Note ---
Hospitalist Progress Note - Encounter Date of Encounter: 07/10/18 Time of Encounter: 09:30 - Subjective Interval History: Mr. Issa is a 68 year old male past medical history of COPD, chronic respiratory failure on 2L, CVA x 3, pacemaker, afib on Xarelto and Amiodarone), CKD-3, DM-II, HTN, HLD, BPH, Chronic diastolic CHF and former smoker who admitted here for STEMI consistent with myocarditis. Pt was placed on ASA 325mg and BB. We are consulted to manage his blood sugars. Patient denied any active chest pain now. He denied any SOB. He does have b/l LE edema. His blood sugars are well controlled with ISS here. His last HbA1C 6.5 from 02/17. At home he is not on any PO DM2 medications he takes ISS only. Patient was seen examined and bedside. He denied any new complaints. His blood sugars are very well controlled. - Exam Vitals: Temp Pulse Resp BP Pulse Ox 98.3 F 61 18 115/72 98 07/10/18 06:40 07/10/18 06:40 07/10/18 06:40 07/10/18 06:40 07/10/18 04:17 Exam: Gen: Alert, awake, Oriented to time,place and person Chest: Diminished breath sounds B/L, No wheezing, No crackles, No rales Heart: S1S2+ RRR No murmurs Abd: Soft, NT, BS +, No organomegaly Ext:1+ pitting edema, pulses are palpable, No calf tenderness Neuro : Benign findings Skin: No rash. - Assessment and Plan (1) Diabetes Status: Acute Assessment and Plan: His last HbA1C 6.5 from 02/17 Repeat HbA1C today @ 6.6 So recommend to continue his home regimen no further changes recommended (2) Myopericarditis Status: Acute Assessment and Plan: cont treatment as per Card on ASA 325mg , BB and Statin (3) STEMI (ST elevation myocardial infarction) Status: Ruled-out Assessment and Plan: reviewed 2 D Echo Cont treatment as per primary team Card (4) Bcwyl-ma-zuwdtsq kidney injury Status: Acute Assessment and Plan: Improving Resumed Lasix Ok to resume his ARB (5) COPD (chronic obstructive pulmonary disease) Status: Acute Assessment and Plan: not in exacerbation Cont all home medications (6) BPH (benign prostatic hyperplasia) Status: Acute Assessment and Plan: cont home meds (7) HLD (hyperlipidemia) Status: Chronic (8) HTN (hypertension) Status: Chronic Assessment and Plan: stable BP with current regimen (9) Diastolic CHF, chronic Status: Chronic Assessment and Plan: slightly volume overloaded Improved cont all home meds - Time Spent with Patient Total time spent is greater than 50% in coordination of care (as documented) at patient's floor/unit and/or counseling patient: Internal Medicine: Result - Labs CBC & Chem 7: 07/09/18 08:37 07/10/18 04:14 Labs: BMP 07/10/18 04:14 Sodium 137 Potassium 4.2 Chloride 100 Carbon Dioxide 28 BUN 23 Creatinine 1.39 H Glucose 98 Calcium 9.2 - ABG Interpretation ABG results: PT/INR, D-dimer PT 23.6 Seconds (9.4-12.1) H 07/06/18 19:32 - VTE Reasons for not Prescribing Prophylaxis: Refused by parent Consult Discharge Plan - Plan Instructions: Myocardial Infarction (DC) Referrals: [facility],PCP [Primary Care Provider] - 07/13/18 1:45 pm Prescriptions: Furosemide [Lasix] 20 mg PO BIDDIURETIC #60 tablet Losartan [Cozaar] 12.5 mg PO DAILY #30 tablet Potassium Chloride 20 meq PO TID #90 tab.er.prt (1) Diabetes Qualifiers: Diabetes mellitus type: type 2 Diabetes mellitus flight dynamicist insulin use: with fpc use Diabetes mellitus complication detail: with chronic kidney disease Chronic kidney disease stage: stage 2 (mild) Qualified Code(s): E11.22 - Type 2 diabetes mellitus with diabetic chronic kidney disease; N18.2 - Chronic kidney disease, stage 2 (mild); 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.4 - coffee supervisor (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 of insulin (3) STEMI (ST elevation myocardial infarction) Qualifiers: Involved coronary artery: unspecified coronary artery Qualified Code(s): I21.3 - ST elevation (STEMI) myocardial infarction of unspecified site (4) Lqvne-xl-cvezqnr kidney injury Qualifiers: Acute renal failure type: unspecified Chronic kidney disease stage: unspecified stage Qualified Code(s): N17.9 - Acute kidney failure, unspecified; N18.9 - Chronic kidney disease, unspecified (5) COPD (chronic obstructive pulmonary disease) Qualifiers: COPD type: unspecified COPD Qualified Code(s): J44.9 - Chronic obstructive pulmonary disease, unspecified (6) BPH (benign prostatic hyperplasia) Qualifiers: Lower urinary tract symptom presence: symptoms present Lower urinary tract symptom detail: urinary obstruction Qualified Code(s): N40.1 - Benign prostatic hyperplasia with lower urinary tract symptoms; N13.8 - Other obstructive and reflux uropathy; N13.8 - Other obstructive and reflux uropathy (7) HLD (hyperlipidemia) Qualifiers: Hyperlipidemia type: pure hypercholesterolemia Qualified Code(s): E78.00 - Pure hypercholesterolemia, unspecified; E78.0 - Pure hypercholesterolemia (8) HTN (hypertension) Qualifiers: Hypertension type: essential hypertension Qualified Code(s): I10 - Essential (primary) hypertension
--- NOTE | 2018-07-11 10:35 | Invasive Diagnostic Lab Proc ---
Name: Dakota Issa Date of Study: 07/06/2018 Date: 1950 Ht: 76.0in Medical Record#: [id number] Age: 68 Wt: 288.81lb Gender: Male BSA: 2.59 Order #: [id number] BMI: 35.17 Physicians Procedure Physician: Tony Brown DO Referring MD: Referring MD: Staff Name Position Time In Sites, Caprice RT (R) Monitor 08:04 PM Walter Garza RN Last Repairer Helper 08:04 PM Amalia Chavez RT Scrub 08:04 PM Indications Indication STEMI Procedures Performed Procedure L HRT ARTERY/VENTRICLE ANGIO Pre-Procedure Checklist Informed consent is complete signed and on chart. H&P is on chart. ID band is on and ID verified with patient. Patient NPO for procedure The procedure was described for the patient and questions were answered. Blood Pressure: 113/71 ECG is on chart. Rhythm: NSR Plan of Care Patient will tolerate the procedure without complications. Adequate level of comfort will be maintained. Hemodynamics will remain stable Patient will recover from procedure without complications. Respiratory function will be maintained. Cardiac rhythm will remain stable. Patient temperature will be maintained. Patient and/or family have verbalized understanding of the procedure. Patient Education Intravenous Access Time IV Size Location DC'd Fluid/Drip Rate Units RN 20g 1 1/4" Patent On Arrival Rt Arm 20g 1 1/4" Patent On Arrival Lt Antecubital 0.9NaCl 50 ml/hr Walter Garza RN Allergies IVP DYE Vital Signs Time BP (mmHg) HR (bpm) O2 Sat. RR (bpm) LOC 08:16 PM / % 4 = Oriented but drowsy 08:16 PM / % 4 = Oriented but drowsy 08:12 PM 113 / 71 106 93 % 10 08:17 PM 114 / 60 68 97 % 19 08:22 PM 111 / 64 62 100 % 17 08:26 PM 103 / 65 62 100 % 17 08:27 PM 106 / 54 64 95 % 17 08:32 PM 111 / 66 60 100 % 17 08:38 PM 123 / 49 67 100 % 15 09:13 PM 95 / 54 61 96 % 16 4 = Oriented but drowsy 09:28 PM 95 / 60 62 97 % 16 4 = Oriented but drowsy Procedural Medications Time Medication Dose Units Method Given By 08:15 PM Oxygen 4 L/min nasal cannula Walter Garza RN 08:20 PM Lidocaine 2% 10 ml Subcutaneous Tony Brown DO 08:20 PM Versed 1 mg Intravenous Walter Garza RN ASA Classification: Emergent Procedure: ASA score is assumed Tai Score Preprocedure Postprocedure Activity 2- Moves 4 extremities sustained head lift Activity 2- Moves 4 extremities sustained head lift Circulation 2- SBP +/= 20 points of pre-anesthetic level Circulation 2- SBP +/= 20 points of pre-anesthetic level Consciousness 2- Awake and alert oriented x 3 Consciousness 2- Awake and alert oriented x 3 O2 Saturation 2- Able to maintain O2 satruation of 92% on room air O2 Saturation 2- Able to maintain O2 satruation of 92% on room air Respiratory 2- Able to deep breathe and cough well Respiratory 2- Able to deep breathe and cough well Total Score 10 Total Score 10 Contrast Agent: Isovue Diagnostic Contrast: 70 ml Total Contrast: 70 ml Fluoro Dose: 4012 mGy Activated Clotting Time Time Seconds to Clot 08:32 PM 242 Procedure Log Time Note Enter By 08:04 PM Caprice Emerson RT (R) Position: Monitor Time in: 20:04 chetan 08:04 PM Walter Garza RN Position: Last Repairer Helper Time in: 20:04 chetan 08:04 PM Amalia Chavez Position: Scrub Time in: 20:04 chetan 08:10 PM Pt arrived to landscape laborer 2 at 20:10 tsites 08:12 PM CathStat 08:12 PM Vitals capture started with the following parameters, Patient=Adult, Interval=5 min, Initial Nhwplzbk=521 mmHg, Deflation Rate=5 mmHg, Cuff placed on Right Arm 08:12 PM EO=527 bpm, HHGW=843/71 mmhg, SpO2=93 %, Resp=10 B/min 08:15 PM Patient charges- Angio tray pack, Navilyst 3mm J, Pulse Oximetry and ACIST tubing and transducer tsites 08:15 PM Case Delayed No tsites 08:15 PM Hair removed from procedure site in holding area using clippers. Bilateral groin prepped with Chloraprep by Caprice Emerson (R), then patient was draped. Skin intact. tsites 08:15 PM Time: 20:10 Oxygen on at 4 L/min per nasal cannula by Walter Garza RN tsites 08:16 PM Time: 20:16 Patient comfortable and pain free: Yes tsites 08:16 PM Time: 20:16LOC: 4 = Oriented but drowsy tsites 08:16 PM Clinical Presentation: STEMI or equivalent tsites 08:17 PM HR=68 bpm, COZD=507/60 mmhg, SpO2=97.0 %, Resp=19 B/min 08:17 PM Recorded ECG: HR=68 Condition=Condition 1 08:18 PM Physician arrived 20:17 tsites 08:18 PM Pressure channel 2 zeroed. 08:20 PM Time out was performed according to hospital policy. Conscious sedation and anesthesia was achieved (see medication log with in this report above) tsites 08:20 PM Critical cardiac patient with acute DE was brought emergently to the cardiac geoscience laboratory technician for immediate coronary angiography and intervention if clinically indicated. tsites 08:20 PM Procedure start 20:20 tsites 08:20 PM Time: 20:20 10 ml Lidocaine 2% to right groin Subcutaneous Given by Tony Brown DO tsites 08:20 PM Time: 20:20 Versed 1 mg Intravenous Given by Walter Garza RN tsites 08:22 PM Micro-Introducer Kit utilized for sheath placement tsites 08:22 PM Access obtained by percutaneous puncture. 4Fr 11cm Microkit sheath placed in right Femoral vein. [id number] tsites 08:22 PM Sheath exchanged for a 4 Fr 11 cm Terumo Casanova sheath [id number] tsites 08:22 PM HR=62 bpm, JJCM=433/64 mmhg, RoL9=175.0 %, Resp=17 B/min 08:24 PM Access obtained by percutaneous puncture. 4Fr 10cm Micro kit sheath placed in right Femoral artery. [id number] tsites 08:24 PM Sheath exchanged for a 6 Fr 11 cm Terumo Casanova sheath [id number] tsites 08:24 PM 6Fr FL 4 catheter inserted over the wire [facility] tsites 08:24 PM 0.035 145cm Navilyst 3mmJ wire [id number] tsites 08:25 PM LCA angiography performed in multiple views. tsites 08:25 PM Recorded Pressure: Ao, HR=61, Condition=Condition 1 (Aorta) Ao 79/45/61 08:25 PM NIBP STAT measurement started. 08:26 PM HR=62 bpm, ZGFA=630/65 mmhg, QbL7=487.0 %, Resp=17 B/min 08:27 PM 5Fr FR 4 catheter inserted over the wire DNC tsites 08:27 PM Recorded Pressure: LV, HR=63, Condition=Condition 1 (Left Ventricle) LV 29/-14/-10 08:27 PM Recorded Pressure: LV, Ao, HR=65, Condition=Condition 1 (Left Ventricle) LV 85/-2/8, (Aorta) Ao 81/46/63 08:27 PM HR=64 bpm, VFFE=901/54 mmhg, SpO2=95 %, Resp=17 B/min 08:28 PM Recorded Pressure: Ao, HR=64, Condition=Condition 1 (Aorta) Ao 80/46/61 08:28 PM Catheter crossed the aortic valve and was selectively placed in the left ventricle. Pressures recorded on pullback for left heart catheterization. tsites 08:28 PM Bolus angiogram of left Ventricle complete: ml/sec for a total of mls tsites 08:29 PM RCA angiography performed in multiple views. tsites 08:30 PM Bolus angiogram of right Femoral complete: ml/sec for a total of mls tsites 08:31 PM Guide catheter removed intact. tsites 08:31 PM Time: 20:16LOC: 4 = Oriented but drowsy tsites 08:32 PM Time: 20:16 Patient comfortable and pain free: Yes tsites 08:32 PM Procedure completed at 20:32 07/06/2018 tsites 08:32 PM HR=60 bpm, NURG=658/66 mmhg, EeF7=018 %, Resp=17 B/min 08:32 PM At 20:32 the ACT was 242 seconds. tsites 08:35 PM Did you address TYSHAWN flow and Dominance? Yes tsites 08:35 PM Coronary Dominance: right tsites 08:36 PM Sign out completed: Radiation Dose 396 mGy, 4012 cGy/cm2 Fluoro Time: 1.2 Isovue 370 - 200ml contrast 70 ml given by Tony Brown DO. Complications: None. The patient was discharged out of the geoscience laboratory technician in stable condition. Cardiac Rehab Consult needed: NoConfirmed administered medications: Yes tsites 08:36 PM Isovue 370 - 200ml,1 Bottle(s) used. tsites 08:36 PM Sheath left in place to be pulled on floor/holding areaV+Pad tsites 08:36 PM Estimated Blood Loss: minimal tsites 08:36 PM Post ECG NSR tsites 08:36 PM Post Blood Pressure 111/66 tsites 08:36 PM 20:36 Post Pulses Bilateral DP & PT 1+ tsites 08:36 PM Information taught Cardiac Cath tsites 08:36 PM Education needs Procedure, Plan of Care, and Responsibilities of Patient in Care tsites 08:36 PM Learning barriers :None tsites 08:36 PM Education Methods Verbal tsites 08:37 PM Education evaluation Able to repeat information tsites 08:37 PM Site status No bleeding/hematoma - Rt Groin as reported by Amalia Chavez RT at 20:37 tsites 08:37 PM Opsite applied tsites 08:37 PM Delay to floor Bed availability tsites 08:37 PM Patient out of room: 20:37 tsites 08:37 PM Family placed in consult room. tsites 08:37 PM patient to holding room tsites 08:38 PM HR=67 bpm, SCRC=668/49 mmhg, XoM8=102 %, Resp=15 B/min 09:29 PM Report given to Riddhi CHENG Pt taken to ICU Room #6. 21:29 [email or web address] 09:29 PM Pt transported to ICU 6 [email or web address] Complications Complication None Hemodynamics Pressures Site Systolic/A Wave Diastolic/V Wave Mean AO 79 45 61 LV 29 -14 -10 LV 85 -2 8 AO 81 46 63 AO 80 46 61 Post Procedure Information Blood Pressure: 111/66 mmHg Rhythm: NSR Post procedural instructions were given Closure Device Time Device Success/Fail 07/06/2018 8:38:00 PM Manual Compression Site Checks Time Location Status Staff Sheath In? Note 08:37 PM Rt Groin No bleeding/hematoma Amalia Chavez RT 09:12 PM Rt Groin No bleeding/ No Hematoma Amalia Chavez RT Yes venous and artierial 09:27 PM Rt Groin No bleeding/ No Hematoma Amalia Chavez RT Yes Pulses Time Site Pre-Procedure Post-Procedure Note 8:36:00 PM Bilateral DP & PT 1+ 07/06/2018 9:13:00 PM Bilateral DP & PT 1+ 07/06/2018 9:28:00 PM Bilateral DP & PT 1+ Updated by Summer Prasad, RT(R) on 07/11/2018 10:25:07 AM electronically signed on 07/11/2018 10:25:45 AM with status of Final
== END 2018-07-10 11:41 | disposition home or self-care (01) | DRG 287 ==
LOC: EMEROOARM 18:16 → ICNU 19:39 → SUATTDRO 19:39 → ICNU 20:14 → 2SOUTHHOLD 07-08 11:53
PROVIDERS: ADMIT Internal Medicine Cardiovascular Disease; ATTEND Family Medicine

== ENCOUNTER 2018-07-25 11:26 | Inpatient (IN) ==
--- NOTE | 2018-07-25 12:02 | Emergency Department Note ---
Disposition Clinical Impression: Acute kidney injury, CHF (congestive heart failure), Obesity (BMI 30.0-34.9), Type 2 diabetes mellitus, Pleural effusion, CHF exacerbation, Pacemaker Disposition: Admitted As Inpatient [facility] Care Provider[facility] - Forms: ED Satisfaction Letter General Adult HPI - General Chief complaint: ED Recheck/Abnormal Lab/Rx Stated complaint: abnormal lab - History of Present Illness HPI Narrative: 60-year-old male with history of diabetes CHF and renal failure comes emergency department with concerns for progressively rising creatinine. He was sent in by Dr. Wynn his dental ceramist who is concerned about an elevation in creatinine and hypotension. Dr. Wynn saw the patient yesterday in her office and noticed he was hypotensive, she recommended patient come to the emergency department y . The patient takes Lasix, they have been giving him Lasix a few days and then taking some days off in attempt to maintain normative creatinine and also when needed remove excess fluid. The patient describes leg swelling abdominal swelling and an element of shortness of breath. He states he feels like his legs are swelling up versus yesterday. No chest pain shortness of breath or acute abdominal pain noted. No vomiting or diarrhea. No bleeding of any sort reported. The patient is on Xarelto for AF. There has been no trouble moving the arms or legs independently. There is no history of slurred speech fever cough or headache given. The patient describes progressive edema and worsening renal function. His is here who augments the history. The patient has had no prior cirrhosis. - Related Data Home Medications Medication Instructions Recorded Confirmed Amiodarone [Cordarone] 200 mg PO DAILY 04/04/18 07/06/18 Aspirin 81 mg PO DAILY 04/04/18 07/06/18 Atorvastatin [Lipitor] 40 mg PO HS 04/04/18 07/06/18 Cholecalciferol (Vitamin D3) 2,000 unit PO DAILY 04/04/18 07/06/18 [Vitamin D3] DULoxetine [Cymbalta] 30 mg PO DAILY 04/04/18 07/06/18 Finasteride [Proscar] 5 mg PO DAILY 04/04/18 07/06/18 Lubiprostone [Amitiza] 16 mcg PO 0800,1700 04/04/18 07/06/18 Melatonin [Melatin] 9 mg PO HS 04/04/18 07/06/18 Memantine HCl 10 mg PO BID 04/04/18 07/06/18 Metoprolol XL (24 HR) Succ [Toprol 12.5 mg PO HS 04/04/18 07/06/18 Xl] Pantoprazole Sodium [Protonix] 40 mg PO DAILY 04/04/18 07/06/18 Rivaroxaban [Xarelto] 20 mg PO DAILY 04/04/18 07/06/18 Sennosides/Docusate Sodium [Colace 1 each PO Q12H PRN 04/04/18 07/06/18 2-in-1 Tablet] Simethicone [Bicarsim] 80 mg PO Q8H PRN 04/04/18 07/06/18 Tamsulosin HCl [Flomax] 0.4 mg PO BID 04/04/18 07/06/18 Tizanidine HCl [Zanaflex] 2 mg PO BID 04/04/18 07/06/18 Trazodone HCl 200 mg PO HS 04/04/18 07/06/18 Tiotropium Br/Olodaterol HCl 2 puff IH DAILY 04/24/18 07/06/18 [Stiolto Respimat Inhal [place]] Insulin ASPART [NovoLOG] 0 unit SQ TIDWM PRN 04/25/18 07/09/18 Fluticasone/Salmeterol [Advair 1 puff IH BID 06/30/18 07/06/18 250-50 Diskus] Gabapentin [Neurontin] 400 mg PO BID 06/30/18 07/06/18 LORazepam [Ativan] 0.5 mg PO HS PRN 06/30/18 07/06/18 Previous Rx's Medication Instructions Recorded Furosemide [Lasix] 20 mg PO BIDDIURETIC #60 tablet 07/10/18 Losartan [Cozaar] 12.5 mg PO DAILY #30 tablet 07/10/18 Potassium Chloride 20 meq PO TID #90 tab.er.prt 07/10/18 Allergies Allergy/AdvReac Type Severity Reaction Status Date / Time IVP DYE Allergy Severe Anaphylaxis Uncoded 05/13/18 15:28 All systems ED: reviewed and negative except as stated. Past Medical History - Past Medical History Medical history: Reports: arthritis, atrial fibrillation, CHF, COPD, coronary artery disease, CVA, diabetes, GERD, hyperlipidemia, hypertension, pulmonary embolus, renal disease Surgical history: Reports: cholecystectomy, herniorrhaphy, knee replacement, orthopedic, other, pacemaker/AICD Psychiatric history: Reports: anxiety, depression, panic disorder - Social History Smoking Status: Former smoker Smokeless Tobacco Status: No Alcohol use: Reports: none Drug use: Reports: none Physical Exam - General Limitations: no limitations General appearance: alert, in no apparent distress - Head Head exam: atraumatic, normocephalic, normal inspection - Eye Eye exam: Present: normal appearance, PERRL, EOMI - ENT ENT exam: normal exam, normal oropharynx, mucous membranes moist, TM's normal bilaterally - Neck Neck exam: Present: normal inspection, full ROM, trachea midline - Chest Chest inspection: Present: normal inspection, symmetric chest wall rise - Respiratory Respiratory exam: Present: prolonged expiratory phase. Absent: respiratory distress, accessory muscle use - Cardiovascular Cardiovascular exam: Present: regular rate, normal rhythm, normal heart sounds - Abdominal Exam Abdominal exam: Present: soft, Non-Tender, normal bowel sounds, ascites. Absent: tenderness, guarding, rebound, rigidity - Extremities Exam Extremities exam: Present: full ROM, normal capillary refill, pedal edema. Absent: tenderness, joint swelling, calf tenderness - Expanded Lower Extremity Exam Neurovascular/Tendon exam: Present: normal capillary refill. Absent: motor deficit, sensory deficit, tendon deficit, extremity cold to touch, pallor - Back Exam Back exam: Present: normal inspection, full ROM, CVA tenderness (L). Absent: tenderness - Psychiatric Psychiatric exam: Present: normal affect, normal mood - Skin Skin exam: Present: warm, dry, intact, normal color Course Vital Signs Temperature 97.9 F 07/25/18 11:29 Pulse Rate 85 07/25/18 11:29 Respiratory Rate 18 07/25/18 11:29 Blood Pressure 105/75 07/25/18 11:29 O2 Sat by Pulse Oximetry 94 07/25/18 11:29 Temperature 97.9 F 07/25/18 11:57 Pulse Rate 60 07/25/18 15:22 Respiratory Rate 16 07/25/18 15:22 Blood Pressure 121/83 07/25/18 15:22 O2 Sat by Pulse Oximetry 94 07/25/18 15:22 Oxygen Delivery Oxygen Delivery Room Air Medical Decision Making - MDM Narrative Medical decision making narrative: The patient has a pleural effusion and has known CHF, he has an apparent acute kidney injury and has been hypotensive when taking diuretics. He describes an element of dyspnea and orthopnea. He discontinued his diuretics yesterday and now complains of increased swelling in the abdomen and legs. Based on the patient's multiple comorbidities, apparent fluid overload status, pleural effusion, hypotension when taking diuretics and apparent acute kidney injury, I thought it might be appropriate to admit the patient to the hospital. I spoke with Dr. Wynn, dental ceramist who feels that would be reasonable. I discussed the case with the hospitalist on-call who has accepted the patient to their care. The patient is agreeable and currently stable. - Lab Data Lab results reviewed: Yes I reviewed the patient's lab results. Result diagrams: 07/25/18 12:19 07/25/18 12:19 Lab Results 07/25/18 07/25/18 07/25/18 Range/Units 12:19 12:19 12:19 WBC 9.9 (4.3-11.1) K/mcL RBC 5.53 H (4.19-5.50) M/mcL Hgb 14.6 (12.9-16.9) g/dL Hct 45.5 (37.5-50.1) % MCV 82.3 L (83.0-100.0) fL MCH 26.4 L (28.0-33.3) pg MCHC 32.1 (31.6-35.5) g/dL RDW 18.1 H (11.5-14.5) % Plt Count 240 (140-400) K/mcL MPV 10.0 (9.4-12.4) fL Immature Gran % 0.6 (0-4) % Seg Neutrophils % 72.8 % Lymphocytes % 9.6 % Monocytes % 12.4 % Eosinophils % 3.9 % Basophils % 0.7 % Neutrophils # 7.2 (1.6-8.9) K/mcL Lymphocytes # 1.0 (0.6-4.6) K/mcL Monocytes # 1.2 (0.0-1.3) K/mcL Eosinophils # 0.4 (0.0-0.6) K/mcL Basophils # 0.1 (0.0-0.2) K/mcL PT 21.9 H (9.4-12.1) Seconds INR 1.9 APTT 46.0 H (26.0-36.0) Seconds Sodium 134 L (136-145) mEq/L Potassium 4.3 (3.5-5.1) mEq/L Chloride 94 L (98-107) mEq/L Carbon Dioxide 32 H (23-29) mEq/L BUN 37 H (8-23) mg/dL Creatinine 2.10 H (0.70-1.30) mg/dL Est GFR ( Amer) 38 L (> 60) Est GFR (Non-Af Amer) 32 L (> 60) BUN/Creatinine Ratio 18 (6-26) Glucose 130 H (70-105) mg/dL Calculated Osmolality 288 (280-300) Calcium 9.6 (8.6-10.3) mg/dL Total Bilirubin 0.4 (0.3-1.0) mg/dL AST 19 (13-39) Units/L ALT 27 (7-52) Units/L Alkaline Phosphatase 117 H (34-104) Units/L Troponin I < 0.03 (< 0.04) ng/mL B-Natriuretic Peptide (Less than 100) pg/mL Serum Total Protein 7.8 (6.4-8.9) g/dL Albumin 4.4 (3.5-5.7) g/dL Globulin 3.4 (2.4-3.5) g/dL Albumin/Globulin Ratio 1.3 (1.1-2.2) 07/25/18 Range/Units 12:20 WBC (4.3-11.1) K/mcL RBC (4.19-5.50) M/mcL Hgb (12.9-16.9) g/dL Hct (37.5-50.1) % MCV (83.0-100.0) fL MCH (28.0-33.3) pg MCHC (31.6-35.5) g/dL RDW (11.5-14.5) % Plt Count (140-400) K/mcL MPV (9.4-12.4) fL Immature Gran % (0-4) % Seg Neutrophils % % Lymphocytes % % Monocytes % % Eosinophils % % Basophils % % Neutrophils # (1.6-8.9) K/mcL Lymphocytes # (0.6-4.6) K/mcL Monocytes # (0.0-1.3) K/mcL Eosinophils # (0.0-0.6) K/mcL Basophils # (0.0-0.2) K/mcL PT (9.4-12.1) Seconds INR APTT (26.0-36.0) Seconds Sodium (136-145) mEq/L Potassium (3.5-5.1) mEq/L Chloride (98-107) mEq/L Carbon Dioxide (23-29) mEq/L BUN (8-23) mg/dL Creatinine (0.70-1.30) mg/dL Est GFR ( Amer) (> 60) Est GFR (Non-Af Amer) (> 60) BUN/Creatinine Ratio (6-26) Glucose (70-105) mg/dL Calculated Osmolality (280-300) Calcium (8.6-10.3) mg/dL Total Bilirubin (0.3-1.0) mg/dL AST (13-39) Units/L ALT (7-52) Units/L Alkaline Phosphatase (34-104) Units/L Troponin I (< 0.04) ng/mL B-Natriuretic Peptide 52 (Less than 100) pg/mL Serum Total Protein (6.4-8.9) g/dL Albumin (3.5-5.7) g/dL Globulin (2.4-3.5) g/dL Albumin/Globulin Ratio (1.1-2.2) - Radiology Data Radiology results reviewed: Yes I reviewed the patient's radiology results.
[2018-07-25 12:35] LABS: Basophils # 0.1 K/mcL (0.0-0.2); Basophils % 0.7 %; Eosinophils # 0.4 K/mcL (0.0-0.6); Eosinophils % 3.9 %; Hematocrit 45.5 % (37.5-50.1); Hemoglobin 14.6 g/dL (12.9-16.9); Immature Granulocytes % 0.6 % (0-4); Lymphocytes % 9.6 %; Mean Corpuscular HGB Conc 32.1 g/dL (31.6-35.5); Mean Corpuscular Hemoglobin 26.4 pg (28.0-33.3); Mean Corpuscular Volume 82.3 fL (83.0-100.0); Monocytes # 1.2 K/mcL (0.0-1.3); Monocytes % 12.4 %; Neutrophils # 7.2 K/mcL (1.6-8.9); Platelet Count 240 K/mcL (140-400); Red Blood Count 5.53 M/mcL (4.19-5.50); Red Cell Distribution Width 18.1 % (11.5-14.5); Segmented Neutrophils % 72.8 %
[2018-07-25 12:41] LABS: INR 1.9; Prothrombin Time 21.9 Seconds (9.4-12.1)
[2018-07-25 12:59] LABS: Alanine Aminotransferase 27 Units/L (7-52); Albumin 4.4 g/dL (3.5-5.7); Albumin/Globulin Ratio 1.3 (1.1-2.2); Alkaline Phosphatase 117 Units/L (34-104); Aspartate Amino Transferase 19 Units/L (13-39); BUN/Creatinine Ratio 18 (6-26); Bilirubin,Total 0.4 mg/dL (0.3-1.0); Blood Urea Nitrogen 37 mg/dL (8-23); Calcium 9.6 mg/dL (8.6-10.3); Carbon Dioxide 32 mEq/L (23-29); Chloride 94 mEq/L (98-107); Globulin 3.4 g/dL (2.4-3.5); Glucose 130 mg/dL (70-105); Osmolality,Calculated 288 (280-300); Potassium 4.3 mEq/L (3.5-5.1); Sodium 134 mEq/L (136-145); Total Protein 7.8 g/dL (6.4-8.9); Troponin I < 0.03 ng/mL (< 0.04); eGFR For Non-African Americans 32 (> 60)
[2018-07-25] MEDS ORDERED: Naloxone 0.4 MG/ML INJ IVP PRN (16:13)
[2018-07-25] MEDS ORDERED: traMADol 50 MG TABLET PO PRN (16:13)
[2018-07-25 16:37] LABS: Creatine Kinase 44 Units/L (30-223); Uric Acid 11.7 mg/dL (2.3-7.6)
[2018-07-25] MEDS ORDERED: Dextrose Gel 15 GM/37.5 ML TUBE PO PRN ×2 (16:53)
[2018-07-25] MEDS ORDERED: *HR* Dextrose 50 % in Water (Syg) 50 ML SYRINGE IVP PRN (16:53)
[2018-07-25] MEDS ORDERED: D5% in Water 1,000 ML IVC PRN (16:53)
--- NOTE | 2018-07-25 16:59 | Internal Med History&Physical ---
Date of Encounter: 07/25/18 Time of Encounter: 16:54 Internal Medicine - H&P: HPI Chief complaint: Worsening kidney function Admitted From: Home Plans for Post Hospital Care: Home History of present illness: Mr. Issa is a 68 year old male past medical history significant for COPD, heart failure with preserved ejection fraction, atrial fibrillation, CAD, CKD, HLD, HTN. Patient presented to the ED due to worsening renal function. Patient reports that he was hospitalized on 06/30/18 due to the suspicition of a STEMI he underwent a LHC on 07/06/18 which showed normal coronaries. He was discharged home and instructed to follow up with his merchandiser team within a week of hospital discharge. He reports that yesterday he followed up with his merchandiser and his kidney function was found to be worse than while he as on the hospital and was instructed to come to the ED. He also reports that he has been taking 20mg of furosemide in the morning and 20mg in the evening, report shortness of breath with exertion and reports chronic orthopnea, denies chest pain, edema of his lower extremities of increase abdominal girth. Hospitalist team called for admission due to asya on ckd. Past Med Surg Social Fam HX - Past Medical History Medical history: arthritis, atrial fibrillation, CHF, COPD, coronary artery disease, CVA, diabetes, GERD, hyperlipidemia, hypertension, pulmonary embolus, renal disease Additional medical history: Pacemaker, emphysema, sick sinus syndrome. chronic knee pain Psychiatric history: anxiety, depression, panic disorder - Past Surgical History Surgical History: cholecystectomy, herniorrhaphy, knee replacement, orthopedic, other, pacemaker/AICD Additional surgical history: Right knee replacement. Cardiac Ablasion. left arm - Social History Smoking Status: Former smoker Smokeless Tobacco Status: No Alcohol use: none Drug use: none - Family History Father Adopted: No Family Member Ethnicity: Non- Living Status: Hx Family Cardiac Disorders: No Hx Family Respiratory Disorders: No Hx Family Cancer: Yes Hx Family GI Disorders: No Hx Family Endocrine Disorder: No Hx Family Neuromuscular Disorders: No Hx Family Neurologic Disorders: No Hx Family HEENT Disorders: No Hx Family Autoimmune Disorders: No Brother Family Member Ethnicity: Non- Living Status: Still Living Sister Family Member Ethnicity: Non- Living Status: Still Living Mother Adopted: No Family Member Ethnicity: Non- Twin of Family Member: Yes Living Status: Hx Family Cardiac Disorders: Yes Hx Family Respiratory Disorders: No Hx Family Cancer: No Hx Family GI Disorders: No Hx Family Endocrine Disorder: No Hx Family Neuromuscular Disorders: No Hx Family Neurologic Disorders: No Hx Family HEENT Disorders: No Hx Family Autoimmune Disorders: No Internal Medicine - H&P: Meds Amiodarone [Cordarone] 200 mg PO DAILY 04/04/18 [History] Aspirin 81 mg PO DAILY 04/04/18 [History] Atorvastatin [Lipitor] 40 mg PO HS 04/04/18 [History] Cholecalciferol (Vitamin D3) [Vitamin D3] 2,000 unit PO DAILY 04/04/18 [History] DULoxetine [Cymbalta] 30 mg PO DAILY 04/04/18 [History] Finasteride [Proscar] 5 mg PO DAILY 04/04/18 [History] Lubiprostone [Amitiza] 16 mcg PO 0800,1700 04/04/18 [History] Melatonin [Melatin] 9 mg PO HS 04/04/18 [History] Memantine HCl 10 mg PO BID 04/04/18 [History] Metoprolol XL (24 HR) Succ [Toprol Xl] 12.5 mg PO HS 04/04/18 [History] Pantoprazole Sodium [Protonix] 40 mg PO DAILY 04/04/18 [History] Rivaroxaban [Xarelto] 20 mg PO DAILY 04/04/18 [History] Sennosides/Docusate Sodium [Colace 2-in-1 Tablet] 1 each PO Q12H PRN 04/04/18 [History] Simethicone [Bicarsim] 80 mg PO Q8H PRN 04/04/18 [History] Tamsulosin HCl [Flomax] 0.4 mg PO BID 04/04/18 [History] Tizanidine HCl [Zanaflex] 2 mg PO BID 04/04/18 [History] Trazodone HCl 200 mg PO HS 04/04/18 [History] Tiotropium Br/Olodaterol HCl [Stiolto Respimat Inhal [place]] 2 puff IH DAILY 04/24/18 [History] Insulin ASPART [NovoLOG] 0 unit SQ TIDWM PRN 04/25/18 [History] Fluticasone/Salmeterol [Advair 250-50 Diskus] 1 puff IH BID 06/30/18 [History] Gabapentin [Neurontin] 400 mg PO BID 06/30/18 [History] LORazepam [Ativan] 0.5 mg PO HS PRN 06/30/18 [History] Furosemide [Lasix] 20 mg PO BIDDIURETIC #60 tablet 07/10/18 [Rx] Losartan [Cozaar] 12.5 mg PO DAILY #30 tablet 07/10/18 [Rx] Potassium Chloride 20 meq PO TID #90 tab.er.prt 07/10/18 [Rx] Allergy/AdvReac Type Severity Reaction Status Date / Time IVP DYE Allergy Severe Anaphylaxis Uncoded 05/13/18 15:28 All Systems PM: A 10-system review of systems was performed and is negative for pertinent findings except as documented above in the HPI. - Constitutional Constitutional: no chills, no fever(s), no weakness, no weight gain - EENT Eyes: no discharge Nose, mouth and throat: no change in voice - Cardiovascular Cardiovascular ROS IM: dyspnea on exertion, orthopnea, paroxysmal nocturnal dyspnea, no chest pain, no diaphoresis, no edema, no irregular heart rhythm, no lightheadedness, no palpitations, no syncope - Respiratory Respiratory: no cough, no wheezing - Gastrointestinal Gastrointestinal: no abdominal pain, no diarrhea, no loose stools, no melena, no nausea, no vomiting - Genitourinary Genitourinary ROS male: no nocturia, no urinary frequency, no urinary hesitancy, no urinary incontinence, no urinary urgency - Musculoskeletal Musculoskeletal ROS IM: no back pain - Integumentary Integumentary IM: no erythema, no pruritus - Neurological Neurological ROS: no frequent falls, no headache(s), no lack of coordination - Psychiatric Psychiatric: no difficulty concentrating, no hopelessness, no irritability, no panic attacks, no suicidal ideation, no visual hallucinations - Endocrine Endocrine IM: no heat intolerance, no polydipsia, no polyphagia, no polyuria - Hematologic/Lymphatic Hematologic/Lymphatic: no lymphadenopathy - Allergic/Immunologic Allergic/Immunologic: no wheezing Additional comments: Rest of review of system is negative. - Constitutional Vitals: Temp Pulse Resp BP Pulse Ox 97.9 F 60 16 121/83 94 07/25/18 11:57 07/25/18 15:22 07/25/18 15:22 07/25/18 15:22 07/25/18 15:22 Exam: Vitals: Reviewed. General: Obese, alert and oriented x4. In mild distress due to generalized weakn ess. Skin: Normal color, no rash, no lesions. HEENT: EOM, pupils equal, round and reactive. Cardiovascular: Irregularly, irregular, normal S1 & S2, no rubs, murmurs or gallops. JVD about 8cm. Lungs: CTA b/l, no wheezes or crackles. Abdomen: Obese, soft, non-tender, no rigidity. Extremities: No deformity, no edema or tenderness, no joint swelling or clubbing. Neurological: Normal cognition. Rest of the physical exam is non contributory Internal Med - H&P Results - Labs CBC & Chem 7: 07/25/18 12:19 07/25/18 12:19 Labs: Short CBC 07/25/18 Range/Units 12:19 WBC 9.9 (4.3-11.1) K/mcL Hgb 14.6 (12.9-16.9) g/dL Hct 45.5 (37.5-50.1) % Plt Count 240 (140-400) K/mcL Neutrophils # 7.2 (1.6-8.9) K/mcL BMP 07/25/18 12:19 Sodium 134 L Potassium 4.3 Chloride 94 L Carbon Dioxide 32 H BUN 37 H Creatinine 2.10 H Glucose 130 H Calcium 9.6 Cardiac Enzymes 07/25/18 Range/Units 12:19 Troponin I < 0.03 (< 0.04) ng/mL Liver Function 07/25/18 Range/Units 12:19 Total Bilirubin 0.4 (0.3-1.0) mg/dL AST 19 (13-39) Units/L ALT 27 (7-52) Units/L Alkaline Phosphatase 117 H (34-104) Units/L Albumin 4.4 (3.5-5.7) g/dL - Impressions ITS Impressions Chest X-Ray 07/25/18 12:11 IMPRESSION: Small left pleural effusion. D/ / Shyann Armstrong MD / Shyann Armstrong MD Interpreting Provider: Shyann Armstrong MD - Diagnostic Studies Chest x-ray Status: image reviewed by me (Unremarkable. No acute abnormality.) - Assessment and plan (1) Acute kidney injury superimposed on CKD Current Visit: Yes Status: Acute Assessment and plan: Plan: admit patient to the hospital. expected to be in the hospital for longer than 2 midnights Hold furosemide will start gentle IV hydration with 0.9NS@75mls/hr, monitor fof signs/symptoms of volume overload retroperitoneal us to r/o obstructive uropathy ckp level and uric acid level urine electrolytes nephrology consulted. (2) CHF (congestive heart failure) Current Visit: Yes Status: Chronic Assessment and plan: Not on acute exacerbation. patient is euvolemic. furosemide held due to worsening kindney function started on gentle IV hydration daily weight, strict intake and output. Qualifiers: Heart failure type: unspecified Heart failure chronicity: chronic Qualified Code(s): I50.9 - Heart failure, unspecified (3) Obesity (BMI 30.0-34.9) Current Visit: Yes Status: Chronic Assessment and plan: nutritional consult. (4) Atrial fibrillation Current Visit: No Status: Chronic Assessment and plan: Rate controlled on Amiodarone and Metoprolol. Resume amiodarone 200mg/PO daily hold metoprolol, will resume medication when BP more stable. continue xarelto for 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 due to high >2 CHADSVASC score. telemetry monitoring Qualifiers: Atrial fibrillation type: paroxysmal Qualified Code(s): I48.0 - Paroxysmal atrial fibrillation (5) CAD (coronary artery disease) Current Visit: No Status: Chronic Assessment and plan: Patient underwent a LCH on 07/06/18 with normal coronaries. hold aspirin due to asya, resume when kindney function improves back to baseline. Qualifiers: Coronary Disease-Associated Artery/Lesion type: platinum artery [place] vs. transplanted heart: platinum heart Associated angina: without angina Qualified Code(s): I25.10 - Atherosclerotic heart disease of platinum coronary artery wi thout angina pectoris (6) COPD (chronic obstructive pulmonary disease) Current Visit: No Status: Chronic Assessment and plan: Not on acute exacerbation. chest is clear to auscultation b/l. bronchodylators prn for wheezing. Qualifiers: COPD type: unspecified COPD Qualified Code(s): J44.9 - Chronic obstructive pulmonary disease, unspecified (7) Diabetes mellitus Current Visit: No Status: Chronic Assessment and plan: Recent A1c 6.6. Carbs controlled diet. will continue lispro medium dose sliding scale ac. Qualifiers: Diabetes mellitus type: type 2 Diabetes mellitus chcf insulin use: without lobsterman use Diabetes mellitus complication status: with kidney complications Diabetes mellitus complication detail: with chronic kidney disease Chronic kidney disease stage: stage 3 (moderate) Qualified Code(s): E11.22 - Type 2 diabetes mellitus with diabetic chronic kidney disease; N18.3 - Chronic kidney disease, stage 3 (moderate) (8) HLD (hyperlipidemia) Current Visit: No Status: Chronic Assessment and plan: Continue atorvastatin 40 mg by mouth daily. Qualifiers: Hyperlipidemia type: pure hypercholesterolemia Qualified Code(s): E78.00 - Pure hypercholesterolemia, unspecified; E78.0 - Pure hypercholesterolemia (9) Hypertension Current Visit: No Status: Chronic Assessment and plan: BP in the soft side on presentation. will home losartan, furosemide and metoprolol. will re-evaluate patient tomorrow morning and adjust medication accordingly. Qualifiers: Hypertension type: essential hypertension Qualified Code(s): I10 - Essential (primary) hypertension (10) DVT prophylaxis Current Visit: Yes Status: Acute Assessment and plan: patient on xarelto due to a.fib. (11) BPH (benign prostatic hyperplasia) Current Visit: Yes Status: Chronic Assessment and plan: Patient on tamsulosin 0.4mg/PO daily and finasteride. Will resume home medications, holding parameter for tamsulosin for SBP <110 Qualifiers: Lower urinary tract symptom detail: unspecified Qualified Code(s): N40.1 - Benign prostatic hyperplasia with lower urinary tract symptoms - Time Spent With Patient Total time spent is greater than 50% in coordination of care (as documented) at patient's floor/unit and/or counseling patient: Greater than 35 minutes (50)
[2018-07-25] MEDS ORDERED: Levalbuterol Neb 0.63 MG/3 ML IH PRN (17:15)
[2018-07-25] MEDS: 0.9 % Sodium Chloride 1,000 ML IVC SCH (17:26)
[2018-07-25] MEDS: *HR* Rivaroxaban 15 MG TABLET PO SCH (17:27)
[2018-07-26 05:14] LABS: Hematocrit 43.3 % (37.5-50.1); Hemoglobin 13.6 g/dL (12.9-16.9); Mean Corpuscular HGB Conc 31.4 g/dL (31.6-35.5); Mean Corpuscular Hemoglobin 26.1 pg (28.0-33.3); Mean Corpuscular Volume 83.1 fL (83.0-100.0); Mean Platelet Volume 10.4 fL (9.4-12.4); Platelet Count 237 K/mcL (140-400); Red Blood Count 5.21 M/mcL (4.19-5.50); Red Cell Distribution Width 17.2 % (11.5-14.5)
--- NOTE | 2018-07-26 07:08 | Electrocardiograph Report ---
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
[2018-07-26] MEDS: 0.9 % Sodium Chloride 1,000 ML IVC SCH (07:49)
[2018-07-26] MEDS: Insulin LISPRO 300 UNITS/3 ML VIAL SQ SCH ×3 (07:49→17:36)
[2018-07-26] MEDS ORDERED: Aspirin Enteric Coated 81 MG Tablet PO SCH (09:00)
[2018-07-26 09:10] LABS: Calcium 8.6 mg/dL (8.6-10.3); Magnesium 2.3 mg/dL (1.6-2.6); Phosphorous 3.1 mg/dL (2.7-4.5)
--- NOTE | 2018-07-26 10:04 | Nephrology Consult Note ---
Addendum entered and electronically signed by Patel Nunes MD 07/26/18 12:55: I examined this patient and discussed the medical decision-making with HERNANDEZ Daniel. I agree with the documented findings, disposition and treatment plan as described except to the extent set forth below. Patient with acute on chronic kidney disease. Agree with gentle hydration. We will follow renal function. No acute need for hemodialysis. Original Note: Date of Encounter: 07/26/18 Time of Encounter: 09:59 Assessment and Plan (1) Acute kidney injury superimposed on CKD Current Visit: Yes Status: Acute Is followed by Dr. Wynn in the office. GFR is 55-60. Hold diuretics. Continue IV fluid for the 2 L and then discontinue. 1.5 L fluid restriction. Low sodium diet. Avoid nephrotoxins and renal dose all medications. (2) CAD (coronary artery disease) Current Visit: Yes Status: Acute Per primary. Status post left heart catheter in June 2018. Qualifiers: Qualified Code(s): I25.10 - Atherosclerotic heart disease of [place] coronary artery without angina pectoris (3) CHF exacerbation Current Visit: Yes Status: Acute See above. Pt is not in exacerbation, is euvolemic. Qualifiers: Qualified Code(s): I50.9 - Heart failure, unspecified (4) Obesity (BMI 30.0-34.9) Current Visit: Yes Status: Chronic Nutritional consult. History of Present Illness - Reason for Consult Consult date: 07/26/18 Chronic Kidney Disease Requesting physician: Leola Melo - Chief Complaint worsening renal function - History of Present Illness Mr. Issa is a 68 year old male who presented to the ED at Dr. Wynn's request. PMH: arthritis, atrial fibrillation, CHF, COPD, coronary artery disease, CVA, diabetes, GERD, hyperlipidemia, hypertension, pulmonary embolus. Patient is followed by Dr. Wynn in the office for chronic kidney disease stage IIIa. Typical GFR is 55-60. He was just discharged in July of this year status post STEMI however his left heart catheter showed normal coronaries. He was discharged and instructed to follow-up with Dr. Wynn in the office. His GFR wa s 32, which is well below his baseline. His medication regimen changes often between cardiology, and nephrology. His most current home dose of by mouth Lasix is 20 mg by mouth twice a day. He denies nausea, vomiting, diarrhea. He denies chest pain or shortness of breath. He only came in to be evaluated due to his worsening renal function. He denies hematuria and is urinating fine at home. He lives at home with his he is a former smoker and denies any illicit drug use or tobacco use. Past Med Surg Social Fam HX - Past Medical History Medical history: arthritis, atrial fibrillation, CHF, COPD, coronary artery disease, CVA, diabetes, GERD, hyperlipidemia, hypertension, pulmonary embolus, renal disease Additional medical history: Pacemaker, emphysema, sick sinus syndrome. chronic knee pain. 3 CVA's. Last CVA April 2018. Psychiatric history: anxiety, depression, panic disorder, PTSD, previous psychiatric hospitalization - Past Surgical History Surgical History: cholecystectomy, herniorrhaphy, knee replacement, orthopedic, other, pacemaker/AICD Additional surgical history: Right knee replacement. Cardiac Ablasion 2014. left arm - Social History Smoking Status: Former smoker Smokeless Tobacco Status: No Alcohol use: none Drug use: none - Family History Father Adopted: No Family Member Ethnicity: Non- Living Status: Hx Family Cardiac Disorders: No Hx Family Respiratory Disorders: No Hx Family Cancer: Yes Hx Family GI Disorders: No Hx Family Endocrine Disorder: No Hx Family Neuromuscular Disorders: No Hx Family Neurologic Disorders: No Hx Family HEENT Disorders: No Hx Family Autoimmune Disorders: No Brother Family Member Ethnicity: Non- Living Status: Still Living Sister Family Member Ethnicity: Non- Living Status: Still Living Mother Adopted: No Family Member Ethnicity: Non- Twin of Family Member: Yes Living Status: Age at : 88 Cause of : Renal Disease Hx Family Cardiac Disorders: Yes Hx Family Respiratory Disorders: No Hx Family Cancer: No Hx Family GI Disorders: No Hx Family Endocrine Disorder: No Hx Family Neuromuscular Disorders: No Hx Family Neurologic Disorders: No Hx Family HEENT Disorders: No Hx Family Autoimmune Disorders: No Medications and Allergies Amiodarone [Cordarone] 200 mg PO DAILY 04/04/18 [History] Aspirin 81 mg PO DAILY 04/04/18 [History] Atorvastatin [Lipitor] 40 mg PO HS 04/04/18 [History] Cholecalciferol (Vitamin D3) [Vitamin D3] 2,000 unit PO DAILY 04/04/18 [History] DULoxetine [Cymbalta] 30 mg PO DAILY 04/04/18 [History] Finasteride [Proscar] 5 mg PO DAILY 04/04/18 [History] Lubiprostone [Amitiza] 16 mcg PO 0800,1700 04/04/18 [History] Melatonin [Melatin] 9 mg PO HS 04/04/18 [History] Memantine HCl 10 mg PO BID 04/04/18 [History] Metoprolol XL (24 HR) Succ [Toprol Xl] 12.5 mg PO HS 04/04/18 [History] Pantoprazole Sodium [Protonix] 40 mg PO DAILY 04/04/18 [History] Rivaroxaban [Xarelto] 20 mg PO DAILY 04/04/18 [History] Sennosides/Docusate Sodium [Colace 2-in-1 Tablet] 1 each PO Q12H PRN 04/04/18 [History] Simethicone [Bicarsim] 80 mg PO Q8H PRN 04/04/18 [History] Tamsulosin HCl [Flomax] 0.4 mg PO BID 04/04/18 [History] Tizanidine HCl [Zanaflex] 2 mg PO BID 04/04/18 [History] Trazodone HCl 200 mg PO HS 04/04/18 [History] Tiotropium Br/Olodaterol HCl [Stiolto Respimat Inhal [place]] 2 puff IH DAILY 04/24/18 [History] Insulin ASPART [NovoLOG] 0 unit SQ TIDWM PRN 04/25/18 [History] Fluticasone/Salmeterol [Advair 250-50 Diskus] 1 puff IH BID 06/30/18 [History] Gabapentin [Neurontin] 400 mg PO BID 06/30/18 [History] LORazepam [Ativan] 0.5 mg PO HS PRN 06/30/18 [History] Furosemide [Lasix] 20 mg PO BIDDIURETIC #60 tablet 07/10/18 [Rx] Losartan [Cozaar] 12.5 mg PO DAILY #30 tablet 07/10/18 [Rx] Potassium Chloride 20 meq PO TID #90 tab.er.prt 07/10/18 [Rx] Allergy/AdvReac Type Severity Reaction Status Date / Time IVP DYE Allergy Severe Anaphylaxis Uncoded 05/13/18 15:28 Review of Systems All Systems review (narrative): The remainder of the systems are negative. Constitutional: no chills, no fatigue, no fever(s) Cardiovascular: no chest pain, no dyspnea, no edema, no orthopnea Respiratory: no cough, no dyspnea on exertion, no wheezing Gastrointestinal: no bloating, no change in bowel habits, no diarrhea, no nausea, no vomiting Genitourinary Male: no hematuria Exam - Vital Signs Vital signs: Initial Vital Signs Temp Pulse Resp BP Pulse Ox 97.9 F 85 18 105/75 94 07/25/18 11:29 07/25/18 11:29 07/25/18 11:29 07/25/18 11:29 07/25/18 11:29 Vital Signs - Last 8 Hours Temp Pulse Resp BP Pulse Ox 07/26/18 07:24 98.3 F 62 16 111/72 91 07/26/18 04:41 98.1 F 64 16 108/70 91 Intake and Output 07/25/18 07/26/18 07/26/18 23:59 07:59 15:59 Intake Total 0 / 0 1000 / 1000 360 / 360 Output Total 775 / 775 650 / 650 Balance -775 / -775 350 / 350 360 / 360 Intake: IV Fluids 1000 / 1000 0.9 % Sodium Chloride 1,000 ML 1000 / 1000 @ 75 mls/hr IVC .[id number] SHI Rx #:[id number] Oral 0 / 0 0 / 0 360 / 360 Output: Urine 775 / 775 650 / 650 Other: Meal Breakfast Percent of Meal Consumed 100% # Bowel Movements 0 Weight 126.8 kg 126.8 kg Blood Glucose* 108 109 Patient Weight 07/26/18 23:59 Weight 126.8 kg - General Appearance General appearance: well-developed, well-nourished, obese EENT: ATNC, hearing intact, vision intact Neck: supple Respiratory: clear Cardiology: edema (Trace bilat lower extremity edema. ), normal S1, normal S2 Gastrointestinal: normoactive bowel sounds, no tenderness, no guarding Integumentary: no rash, warm and dry Neurologic: alert and oriented x3 Musculoskeletal: no deformities, no erythema Psychiatric: mood/affect appropriate, cooperative Results - Lab Results 07/26/18 04:33 07/26/18 04:33 Most recent lab results Calcium 8.6 mg/dL (8.6-10.3) 07/26/18 04:33 Phosphorus 3.1 mg/dL (2.7-4.5) 07/26/18 04:33 Magnesium 2.3 mg/dL (1.6-2.6) 07/26/18 04:33 Consult Discharge Plan - Plan Referrals: [facility] [Outside]
[2018-07-26] MEDS: *HR* Amiodarone 200 MG TABLET PO SCH (10:42)
[2018-07-26] MEDS: Finasteride 5 MG TABLET PO SCH (10:43)
--- NOTE | 2018-07-26 13:20 | Internal Med Progress Note ---
Hospitalist Progress Note - Encounter Date of Encounter: 07/26/18 Time of Encounter: 13:18 - Subjective Interval History: I have seen and evaluated the patient at bedside. He reports that he is feeling better today, stronger. denies chest pain or shortness of breath. - Exam Vitals: Temp Pulse Resp BP Pulse Ox 97.4 F L 74 16 130/79 93 07/26/18 11:38 07/26/18 11:38 07/26/18 11:38 07/26/18 11:38 07/26/18 11:38 Exam: Vitals: Reviewed. General: Obese, alert and oriented x4. In no acute distress today. Skin: Normal color, no rash, no lesions. Cardiovascular: Irregularly, irregular, normal S1 & S2, no rubs, murmurs or gallops. JVD about 8cm. Lungs: CTA b/l, no wheezes or crackles. Abdomen: Obese, soft, non-tender, no rigidity. NABS in all 4 quadrants. Extremities: No edema b/l. strength is 4/5 in the lower extr b/l. Neurological: Normal cognition. Rest of the physical exam is non contributory - Assessment and Plan (1) Acute kidney injury superimposed on CKD Current Visit: Yes Status: Acute Assessment and Plan: unclear reason possible due to diuretics and poor PO intake. Kidney function improving on IV fluids. Continue IV fluids to complete 2 litters of fluids total. Will reassess kidney function in the morning. nephro recommendations appreciated. (2) CHF (congestive heart failure) Current Visit: Yes Status: Chronic Assessment and Plan: euvolemic. Plan: diruretics held due to AG on ckd. strict intake and output water restriction to 1.5 litters a day. daily weight 2 gram sodium diet ACEs has been held due to AG/ckd. will resume low dose beta-brisa (3) Atrial fibrillation Current Visit: No Status: Chronic Assessment and Plan: rate controlled. On amiodarone and metoprolol. xarelto due to high CHADSVASC score. (4) CAD (coronary artery disease) Current Visit: No Status: Chronic Assessment and Plan: will resume aspirin 81mg/po daily. (5) COPD (chronic obstructive pulmonary disease) Current Visit: No Status: Chronic Assessment and Plan: Not on acute exacerbation. On bronchodilators prn. Incentive spirometry (6) Diabetes mellitus Current Visit: No Status: Chronic Assessment and Plan: Blood sugar is well controlled. Continue insulin lispro low-dose sliding scale. carbs controlled diet. (7) HLD (hyperlipidemia) Current Visit: No Status: Chronic Assessment and Plan: Continue atorvastatin 40 mg by mouth at bedtime. (8) Hypertension Current Visit: No Status: Chronic Assessment and Plan: BP improved, yesterday was running in the low 100s-90s SBP. metoprolol 12.5mg/PO resumed. (9) BPH (benign prostatic hyperplasia) Current Visit: Yes Status: Chronic Assessment and Plan: Continue finasteride 5 mg by mouth daily. will resume tamsulosin 0.4mg/PO daily (10) Obesity (BMI 30.0-34.9) Current Visit: Yes Status: Chronic DVT Prophylaxis: patient on an oral anticoagulant due to a.fib - Summary of Assessment and Plan Summary of Assessment and Plan: Patient to remain in the hospital due to AG/CKD. potential dc in a day or two. - Time Spent with Patient Total time spent is greater than 50% in coordination of care (as documented) at patient's floor/unit and/or counseling patient: Greater than 35 minutes (45) Plan of Care Discussed with: patient (and the nurse.) Internal Medicine: Result - Labs CBC & Chem 7: 07/26/18 04:33 07/26/18 04:33 Labs: Short CBC 07/26/18 Range/Units 04:33 WBC 8.5 (4.3-11.1) K/mcL Hgb 13.6 (12.9-16.9) g/dL Hct 43.3 (37.5-50.1) % Plt Count 237 (140-400) K/mcL BMP 07/25/18 07/26/18 12:19 04:33 Sodium 134 L 136 Potassium 4.3 4.0 Chloride 94 L 98 Carbon Dioxide 32 H 29 BUN 37 H 37 H Creatinine 2.10 H 1.83 H Glucose 130 H 103 Calcium 9.6 8.6 Cardiac Enzymes 07/25/18 Range/Units 12:19 Troponin I < 0.03 (< 0.04) ng/mL Liver Function 07/25/18 Range/Units 12:19 Total Bilirubin 0.4 (0.3-1.0) mg/dL AST 19 (13-39) Units/L ALT 27 (7-52) Units/L Alkaline Phosphatase 117 H (34-104) Units/L Albumin 4.4 (3.5-5.7) g/dL - ABG Interpretation ABG results: PT/INR, D-dimer PT 21.9 Seconds (9.4-12.1) H 07/25/18 12:19 - Impressions Impressions Retroperitoneum Ultrasound 07/25/18 21:15 IMPRESSION: Unremarkable ultrasound of the kidneys and urinary bladder. D/ / Asif Luevano MD / Asif Luevano MD Interpreting Provider: Asif Luevano MD Consult Discharge Plan - Plan Referrals: [facility] [Outside] __ (2) CHF (congestive heart failure) Qualifiers: Heart failure type: unspecified Heart failure chronicity: chronic Qualified Code(s): I50.9 - Heart failure, unspecified (3) Atrial fibrillation Qualifiers: Atrial fibrillation type: paroxysmal Qualified Code(s): I48.0 - Paroxysmal a trial fibrillation (4) CAD (coronary artery disease) Qualifiers: Coronary Disease-Associated Artery/Lesion type: [place] artery [place] vs. transplanted heart: [place] heart Associated angina: without angina Qualified Code(s): I25.10 - Atherosclerotic heart disease of [place] coronary artery wi thout angina pectoris (5) COPD (chronic obstructive pulmonary disease) Qualifiers: COPD type: unspecified COPD Qualified Code(s): J44.9 - Chronic obstructive pulmonary disease, unspecified (6) Diabetes mellitus Qualifiers: Diabetes mellitus type: type 2 Diabetes mellitus mcfp insulin use: without tool and machine maintainer use Diabetes mellitus complication status: with kidney complications Diabetes mellitus complication detail: with chronic kidney disease Chronic kidney disease stage: stage 3 (moderate) Qualified Code(s): E11.22 - Type 2 diabetes mellitus with diabetic chronic kidney disease; N18.3 - Chronic kidney disease, stage 3 (moderate) (7) HLD (hyperlipidemia) Qualifiers: Hyperlipidemia type: pure hypercholesterolemia Qualified Code(s): E78.00 - Pure hypercholesterolemia, unspecified; E78.0 - Pure hypercholesterolemia (8) Hypertension Qualifiers: Hypertension type: essential hypertension Qualified Code(s): I10 - Essential (primary) hypertension (9) BPH (benign prostatic hyperplasia) Qualifiers: Lower urinary tract symptom detail: unspecified Qualified Code(s): N40.1 - Benign prostatic hyperplasia with lower urinary tract symptoms
[2018-07-26] MEDS: *HR* Rivaroxaban 15 MG TABLET PO SCH (16:40)
[2018-07-27 05:44] LABS: Basophils % 0.5 %; Eosinophils # 0.4 K/mcL (0.0-0.6); Eosinophils % 4.7 %; Immature Granulocytes % 0.3 % (0-4); Lymphocytes # 1.7 K/mcL (0.6-4.6); Lymphocytes % 18.7 %; Mean Corpuscular HGB Conc 31.8 g/dL (31.6-35.5); Mean Corpuscular Hemoglobin 26.4 pg (28.0-33.3); Mean Corpuscular Volume 82.9 fL (83.0-100.0); Mean Platelet Volume 10.1 fL (9.4-12.4); Monocytes % 11.5 %; Neutrophils # 5.7 K/mcL (1.6-8.9); Platelet Count 245 K/mcL (140-400); Red Blood Count 5.31 M/mcL (4.19-5.50); Red Cell Distribution Width 17.3 % (11.5-14.5); Segmented Neutrophils % 64.3 %
[2018-07-27 06:03] LABS: Calcium 9.1 mg/dL (8.6-10.3); Magnesium 2.3 mg/dL (1.6-2.6)
[2018-07-27] MEDS: Insulin LISPRO 300 UNITS/3 ML VIAL SQ SCH ×3 (08:42→16:46)
[2018-07-27] MEDS ORDERED: Metoprolol XL (24 HR) Succ 25 MG TAB.ER.24H PO SCH (09:00)
[2018-07-27] MEDS ORDERED: Aspirin Enteric Coated 81 MG Tablet PO SCH (09:00)
[2018-07-27] MEDS: Finasteride 5 MG TABLET PO SCH (09:06)
[2018-07-27] MEDS: *HR* Amiodarone 200 MG TABLET PO SCH (09:07)
[2018-07-27] MEDS ORDERED: Sennosides/Docusate Sodium TABLET PO PRN (13:56)
[2018-07-27] MEDS ORDERED: *HR* LORazepam 0.5 MG TABLET PO PRN (13:56)
[2018-07-27] MEDS ORDERED: Simethicone 80 MG TAB.CHEW PO PRN (13:56)
[2018-07-27 14:28] VITALS: BP 109/70
--- NOTE | 2018-07-27 15:20 | Discharge Summary ---
- NOTES TO OUTPATIENT PROVIDER Notes to Outpatient Provider: PCP in 5 to 7 days Date of Encounter: 07/27/18 Time of Encounter: 15:15 - Discharge Diagnosis (1) Acute kidney injury superimposed on CKD Priority: Primary Status: Acute Assessment and Plan: possibly due to diuretics and poor PO intake. Kidney function improved on IV fluids. follow up with nephrology out pt. (2) Hypertension Priority: Secondary Status: Chronic Assessment and Plan: BP improved. Metoprolol 12.5mg PO resumed. Per Nephro stopping Losartan and decreasing lasix from 20 mg PO BID to 20 mg once a day. Qualifiers: Hypertension type: essential hypertension Qualified Code(s): I10 - Essential (primary) hypertension (3) Atrial fibrillation Priority: Secondary Status: Chronic Assessment and Plan: rate controlled. On amiodarone and metoprolol. xarelto due to high CHADSVASC score. Qualifiers: Atrial fibrillation type: paroxysmal Qualified Code(s): I48.0 - Paroxysmal atrial fibrillation (4) Diabetes mellitus Priority: Secondary Status: Chronic Assessment and Plan: Blood sugar is well controlled. Continue insulin lispro low-dose sliding scale. carbs controlled diet. Qualifiers: Diabetes mellitus type: type 2 Diabetes mellitus longterm insulin use: without longterm use Diabetes mellitus complication status: with kidney complications Diabetes mellitus complication detail: with chronic kidney disease Chronic kidney disease stage: stage 3 (moderate) Qualified Code(s): E11.22 - Type 2 diabetes mellitus with diabetic chronic kidney disease; N18.3 - Chronic kidney disease, stage 3 (moderate) (5) CHF (congestive heart failure) Priority: Secondary Status: Chronic Assessment and Plan: euvolemic. Not in exacerbation Plan: diuretics held due to AG on ckd. Lasix decreased to once a day from BID strict intake and output water restriction to 1.5 litters a day. daily weight 2 gram sodium diet ARB has been discontinued due to AG/ckd. will resume low dose beta-brisa Qualifiers: Heart failure type: unspecified Heart failure chronicity: chronic Qualified Code(s): I50.9 - Heart failure, unspecified (6) COPD (chronic obstructive pulmonary disease) Priority: Secondary Status: Chronic Assessment and Plan: Not on acute exacerbation. On bronchodilators prn. Incentive spirometry Qualifiers: COPD type: unspecified COPD Qualified Code(s): J44.9 - Chronic obstructive pulmonary disease, unspecified (7) CAD (coronary artery disease) Priority: Secondary Status: Chronic Assessment and Plan: will resume aspirin 81mg/po daily. Qualifiers: Coronary Disease-Associated Artery/Lesion type: [place] artery [place] vs. transplanted heart: [place] heart Associated angina: without angina Qualified Code(s): I25.10 - Atherosclerotic heart disease of [place] coronary artery without angina pectoris (8) HLD (hyperlipidemia) Priority: Secondary Status: Chronic Assessment and Plan: Continue atorvastatin 40 mg by mouth at bedtime. Qualifiers: Hyperlipidemia type: pure hypercholesterolemia Qualified Code(s): E78.00 - Pure hypercholesterolemia, unspecified; E78.0 - Pure hypercholesterolemia (9) BPH (benign prostatic hyperplasia) Priority: Secondary Status: Chronic Assessment and Plan: Continue finasteride 5 mg by mouth daily. will resume tamsulosin 0.4mg/PO daily Qualifiers: Lower urinary tract symptom detail: unspecified Qualified Code(s): N40.1 - Benign prostatic hyperplasia with lower urinary tract symptoms (10) Obesity (BMI 30.0-34.9) Priority: Secondary Status: Chronic Assessment and Plan: nutritional consult. Hospital course: History of present illness: Dr. Hooper Mr. Issa is a 68 year old male past medical history significant for COPD, heart failure with preserved ejection fraction, atrial fibrillation, CAD, CKD, HLD, HTN. Patient presented to the ED due to worsening renal function. Patient reports that he was hospitalized on 06/30/18 due to the suspicition of a STEMI he underwent a LHC on 07/06/18 which showed normal coronaries. He was discharged home and instructed to follow up with his section leader team within a week of hospital discharge. He reports that yesterday he followed up with his section leader and his kidney function was found to be worse than while he as on the hospital and was instructed to come to the ED. He also reports that he has been taking 20mg of furosemide in the morning and 20mg in the evening, report shortness of breath with exertion and reports chronic orthopnea, denies chest pain, edema of his lower extremities of increase abdominal girth. Hospitalist team called for admission due to ag on ckd. Discharge discussed with: patient - Time Spent with Patient Total time spent providing and/or coordinating discharge services: Greater than 30 minutes - Discharge Medications Home Medications: Amiodarone [Cordarone] 200 mg PO DAILY 04/04/18 [History] Aspirin 81 mg PO DAILY 04/04/18 [History] Cholecalciferol (Vitamin D3) [Vitamin D3] 2,000 unit PO DAILY 04/04/18 [History] DULoxetine [Cymbalta] 30 mg PO DAILY 04/04/18 [History] Finasteride [Proscar] 5 mg PO DAILY 04/04/18 [History] Lubiprostone [Amitiza] 16 mcg PO 0800,1700 04/04/18 [History] Metoprolol XL (24 HR) Succ [Toprol Xl] 12.5 mg PO HS 04/04/18 [History] Pantoprazole Sodium [Protonix] 40 mg PO DAILY 04/04/18 [History] Rivaroxaban [Xarelto] 20 mg PO DAILY 04/04/18 [History] Sennosides/Docusate Sodium [Colace 2-in-1 Tablet] 1 each PO Q12H PRN 04/04/18 [History] Simethicone [Bicarsim] 80 mg PO Q8H PRN 04/04/18 [History] Tamsulosin HCl [Flomax] 0.4 mg PO BID 04/04/18 [History] Tizanidine HCl [Zanaflex] 2 mg PO BID 04/04/18 [History] Tiotropium Br/Olodaterol HCl [Stiolto Respimat Inhal [place]] 2 puff IH DAILY 04/24/18 [History] Insulin ASPART [NovoLOG] 0 unit SQ TIDWM PRN 04/25/18 [History] Fluticasone/Salmeterol [Advair 250-50 Diskus] 1 puff IH BID 06/30/18 [History] Gabapentin [Neurontin] 400 mg PO BID 06/30/18 [History] LORazepam [Ativan] 0.5 mg PO HS PRN 06/30/18 [History] Potassium Chloride 20 meq PO TID #90 tab.er.prt 07/10/18 [Rx] Acetaminophen [Tylenol] 650 mg PO Q6HR PRN 07/26/18 [History] Atorvastatin Calcium [Lipitor] 40 mg PO HS 07/26/18 [History] DiphenhydraMINE [Benadryl] 25 mg PO HS 07/26/18 [History] Furosemide [Lasix] 20 mg PO BID 07/26/18 [History] Oxycodone HCl/Acetaminophen [Percocet 10-325 mg Tablet] 1 tab PO Q8H PRN 07/26/18 [History] Losartan [Cozaar] 25 mg PO DAILY 07/27/18 [History] Allergies/Adverse Reactions: Allergy/AdvReac Type Severity Reaction Status Date / Time IVP DYE Allergy Severe Anaphylaxis Uncoded 05/13/18 15:28 Date of admission: 07/25/18 16:13 Primary care physician: PCP MA Consults: 07/25/18 17:10 Consult to Nephrology [CONS] Routine Consulting Provider: Kidney Sujatha/OTTO/JESSICA/BENITO Reason for Consult: AG on ckd. Call Completed: No 07/25/18 18:07 Consult to Pastoral Services [CONS] Routine Comment: Consult to Parking Assistant [CONS] Routine Reason for SW Consult: MA has nurse from [facility] coming once weekly. Patient uses walker primarily; adjusting to cane per self. Unsteady gait. 07/26/18 13:30 Consult to Physical Therapy [CONS] Routine Comment: Evaluate, develop and implement POC Reason for Consult: generalized weakness Does patient have active BEDREST order?: No Is patient medically & hemodynamically stable?: Yes Discharging clinician: Kelsie Gibson Anticipated date of discharge: 07/27/18 - Constitutional Vitals: Temp Pulse Resp BP Pulse Ox 98.2 F 72 16 109/70 94 07/27/18 14:22 07/27/18 14:22 07/27/18 14:22 07/27/18 14:22 07/27/18 14:22 Exam: Exam: Vitals: Reviewed. General: Obese, alert and oriented x4. In no acute distress today. Skin: Normal color, no rash, no lesions. Cardiovascular: Irregularly, irregular, normal S1 & S2, no rubs, murmurs or gallops. JVD about 8cm. Lungs: CTA b/l, no wheezes or crackles. Abdomen: Obese, soft, non-tender, no rigidity. NABS in all 4 quadrants. Extremities: No edema b/l. strength is 4/5 in the lower extr b/l. Neurological: Normal cognition. Rest of the physical exam is non contributory. - Patient Status Disposition: Home, Self-Care Condition: Good Overall status at discharge: patient is back to baseline - Discharge Instructions Follow Up With: [facility] [Outside] - Diet and Activity Activity: increase activity as tolerated Diet: advance to your usual diet, other
--- NOTE | 2018-07-27 16:54 | Physician Discharge Referral ---
Home Health/Hosp Referral Info Transfer to: Home Health Provider in Charge Post Discharge: PCP - Diagnosis (1) Acute kidney injury superimposed on CKD Priority: Primary Status: Acute (2) Hypertension Priority: Secondary Status: Chronic (3) Atrial fibrillation Priority: Secondary Status: Chronic (4) Diabetes mellitus Priority: Secondary Status: Chronic (5) CHF (congestive heart failure) Priority: Secondary Status: Chronic (6) COPD (chronic obstructive pulmonary disease) Priority: Secondary Status: Chronic (7) CAD (coronary artery disease) Priority: Secondary Status: Chronic (8) HLD (hyperlipidemia) Priority: Secondary Status: Chronic (9) BPH (benign prostatic hyperplasia) Priority: Secondary Status: Chronic (10) Obesity (BMI 30.0-34.9) Priority: Secondary Status: Chronic - Respiratory Orders Smoking Cessation: Smoking cessation has been advised. For more information, call the [place] Tobacco Quit Line at 1-989-EZLZ-NOW. - Diet/Nutrition Diet/Nutrition Orders: Renal - Services Needed Following services are medically necessary services: Nursing, Home Health Aide, Physical Therapy, Occupational Therapy - Transfer Medications Prescriptions: Furosemide [Lasix] 20 mg PO DAILY 30 Days #30 tablet Home Medications: Amiodarone [Cordarone] 200 mg PO DAILY 04/04/18 [History] Aspirin 81 mg PO DAILY 04/04/18 [History] Cholecalciferol (Vitamin D3) [Vitamin D3] 2,000 unit PO DAILY 04/04/18 [History] DULoxetine [Cymbalta] 30 mg PO DAILY 04/04/18 [History] Finasteride [Proscar] 5 mg PO DAILY 04/04/18 [History] Lubiprostone [Amitiza] 16 mcg PO 0800,1700 04/04/18 [History] Metoprolol XL (24 HR) Succ [Toprol Xl] 12.5 mg PO HS 04/04/18 [History] Pantoprazole Sodium [Protonix] 40 mg PO DAILY 04/04/18 [History] Rivaroxaban [Xarelto] 20 mg PO DAILY 04/04/18 [History] Sennosides/Docusate Sodium [Colace 2-in-1 Tablet] 1 each PO Q12H PRN 04/04/18 [History] Simethicone [Bicarsim] 80 mg PO Q8H PRN 04/04/18 [History] Tamsulosin HCl [Flomax] 0.4 mg PO BID 04/04/18 [History] Tizanidine HCl [Zanaflex] 2 mg PO BID 04/04/18 [History] Tiotropium Br/Olodaterol HCl [Stiolto Respimat Inhal Richey] 2 puff IH DAILY 04/24/18 [History] Insulin ASPART [NovoLOG] 0 unit SQ TIDWM PRN 04/25/18 [History] Fluticasone/Salmeterol [Advair 250-50 Diskus] 1 puff IH BID 06/30/18 [History] Gabapentin [Neurontin] 400 mg PO BID 06/30/18 [History] LORazepam [Ativan] 0.5 mg PO HS PRN 06/30/18 [History] Potassium Chloride 20 meq PO TID #90 tab.er.prt 07/10/18 [Rx] Acetaminophen [Tylenol] 650 mg PO Q6HR PRN 07/26/18 [History] Atorvastatin Calcium [Lipitor] 40 mg PO HS 07/26/18 [History] DiphenhydraMINE [Benadryl] 25 mg PO HS 07/26/18 [History] Oxycodone HCl/Acetaminophen [Percocet 10-325 mg Tablet] 1 tab PO Q8H PRN 07/26/18 [History] Furosemide [Lasix] 20 mg PO DAILY 30 Days #30 tablet 07/27/18 [Rx] Allergies/Adverse Reactions: Allergy/AdvReac Type Severity Reaction Status Date / Time IVP DYE Allergy Severe Anaphylaxis Uncoded 05/13/18 15:28 Certification: Further, I certify that my clinical findings support that this patient is homebound (i.e. absences from home require considerable and taxing effort and are for medical reasons or [employer] services or infrequently or short duration when for other reasons) because: Homebound Reason: Patient requires assistance of a person or device to safely leave home Attestation: My signature below is to certify that this patient is under my care and that I, or nurse practitioner, or a physician's executive assistant working with me, has a [id number] encounter with this patient.
[2018-07-27] MEDS: *HR* Rivaroxaban 15 MG TABLET PO SCH (17:06)
[2018-07-27] MEDS ORDERED: tiZANidine 4 MG TABLET PO SCH (21:00)
[2018-07-27] MEDS ORDERED: Gabapentin 400 MG CAPSULE PO SCH (21:00)
[2018-07-27] MEDS ORDERED: Budesonide/Formoterol 160/4.5 1 PUFF INH IH SCH (22:00)
[2018-07-28] MEDS ORDERED: Tiotropium 18 MCG inhalation IH SCH (07:00)
== END 2018-07-27 18:15 | disposition home health service (06) | DRG 683 ==
LOC: 3ANU 11:26 → EMEROOARM 11:26 → 3ANU 17:00
PROVIDERS: ADMIT Hospitalist; ATTEND Hospitalist

== ENCOUNTER 2018-08-14 15:39 | Inpatient (IN) ==
[2018-08-14] MEDS ORDERED: 0.9 % Sodium Chloride 1,000 ML IVC ONE ×2 (15:52→16:37)
--- NOTE | 2018-08-14 16:03 | Emergency Department Note ---
Disposition Clinical Impression: AG (acute kidney injury), Hypocalcemia Hypotension Qualifiers: Hypotension type: unspecified hypotension type Qualified Code(s): I95.9 - Hypotension, unspecified Disposition: Admitted As Inpatient Condition: Fair Forms: ED Satisfaction Letter Time of Disposition: 18:59 General Adult HPI - General Chief complaint: ED Weakness Stated complaint: Weakness Time Seen by Provider: 08/14/18 15:51 Source: patient, EMS Mode of arrival: EMS Limitations: no limitations Nursing Notes Reviewed: Yes Vital Signs Reviewed: Yes - History of Present Illness HPI Narrative: Patient is a 68-year-old male that presents emergency Department with reports of weakness and being hypotensive. Patient states that he has a home health nurse and was noted to have a low blood pressure and she recommended that he come out to the hospital to be evaluated. Patient states that he does get low blood pressure from time to time however right now he is feeling weak and feels like he cannot think clearly. Patient states that he does take insulin due to his diabetes. Patient states that he has not had any chest pain or shortness of breath. Patient states his main concern is just feeling like he cannot think clearly and overall just does not feel well. Pain Scale: 8 - Related Data Home Medications Medication Instructions Recorded Confirmed Amiodarone [Cordarone] 200 mg PO DAILY 04/04/18 08/09/18 Aspirin 81 mg PO DAILY 04/04/18 08/09/18 Cholecalciferol (Vitamin D3) 2,000 unit PO DAILY 04/04/18 08/09/18 [Vitamin D3] DULoxetine [Cymbalta] 30 mg PO DAILY 04/04/18 08/09/18 Finasteride [Proscar] 5 mg PO DAILY 04/04/18 08/09/18 Lubiprostone [Amitiza] 16 mcg PO 0800,1700 04/04/18 08/09/18 Metoprolol XL (24 HR) Succ [Toprol 12.5 mg PO HS 04/04/18 08/09/18 Xl] Pantoprazole Sodium [Protonix] 40 mg PO DAILY@0730 04/04/18 08/09/18 Rivaroxaban [Xarelto] 20 mg PO DAILY@1700 04/04/18 08/09/18 Sennosides/Docusate Sodium [Colace 1 each PO BID PRN 04/04/18 08/09/18 2-in-1 Tablet] Simethicone [Bicarsim] 80 mg PO TID PRN 04/04/18 08/09/18 Tamsulosin HCl [Flomax] 0.4 mg PO BID 04/04/18 08/09/18 Tizanidine HCl [Zanaflex] 2 mg PO BID PRN 04/04/18 08/09/18 Tiotropium Br/Olodaterol HCl 2 puff IH DAILY 04/24/18 08/09/18 [Stiolto Respimat Inhal Wana] Insulin ASPART [NovoLOG] 0 unit SQ TIDAC 04/25/18 08/09/18 Fluticasone/Salmeterol [Advair 1 puff IH BID 06/30/18 08/09/18 250-50 Diskus] Gabapentin [Neurontin] 400 mg PO BID 06/30/18 08/09/18 LORazepam [Ativan] 0.5 mg PO HS PRN 06/30/18 08/09/18 Acetaminophen [Tylenol] 650 mg PO Q6HR PRN 07/26/18 08/09/18 Atorvastatin Calcium [Lipitor] 40 mg PO HS 07/26/18 08/09/18 DiphenhydraMINE [Benadryl] 25 mg PO HS PRN 07/26/18 08/09/18 Oxycodone HCl/Acetaminophen 1 tab PO Q8H PRN 07/26/18 08/09/18 [Percocet 10-325 mg Tablet] Furosemide [Lasix] 20 mg PO BID 08/09/18 08/09/18 Losartan [Cozaar] 25 mg PO DAILY 08/09/18 08/09/18 Potassium Chloride 20 meq PO TIDWM 08/09/18 08/09/18 Allergies Allergy/AdvReac Type Severity Reaction Status Date / Time IVP DYE Allergy Severe Anaphylaxis Uncoded 08/14/18 15:58 All systems ED: reviewed and negative except as stated. Constitutional: Reports: weakness. Denies: fever Cardiovascular: Denies: chest pain Respiratory: Denies: dyspnea Gastrointestinal: Denies: abdominal pain, nausea, vomiting Musculoskeletal: Denies: back pain, neck pain Neurological: Denies: headache, weakness Past Medical History - Past Medical History Medical history: Reports: arthritis, atrial fibrillation, CHF, COPD, coronary artery disease, CVA, diabetes, GERD, hyperlipidemia, hypertension, pulmonary embolus, renal disease, other Surgical history: Reports: cholecystectomy, herniorrhaphy, knee replacement, orthopedic, other, pacemaker/AICD Psychiatric history: Reports: anxiety, depression, panic disorder, PTSD, previous psychiatric hospitalization - Social History Smoking Status: Former smoker Smokeless Tobacco Status: No Alcohol use: Reports: none Drug use: Reports: none Physical Exam - General Limitations: no limitations General appearance: alert, in no apparent distress - Head Head exam: atraumatic, normocephalic - Eye Eye exam: Present: normal appearance, EOMI - Neck Neck exam: Present: normal inspection, full ROM, trachea midline - Respiratory Respiratory exam: Present: normal lung sounds bilaterally. Absent: respiratory distress, wheezes - Cardiovascular Cardiovascular exam: Present: regular rate, normal rhythm, normal heart sounds, +S1, +S2 - Abdominal Exam Abdominal exam: Present: soft, Non-Tender, normal bowel sounds - Neurological Exam Neurological exam: Present: alert, oriented X3 - Expanded Neurological Exam Cranial nerves: EOM function (II, III, IV, ): Normal, facial sensation (V): Normal, facial palsy (VII): Normal, gag reflex (IX): Normal, spinal accessory function (XI): Normal, tongue deviation (XII): Normal Cerebellar function: finger to nose: Normal Motor strength - LUE: 5/5 Motor strength - RUE: 5/5 Motor strength - LLE: 4/5 Motor strength - RLE: 4/5 Sensory exam upper extremity: light touch: Normal Sensory exam lower extremity: light touch: Normal Coma Scale Eye Opening: Spontaneous Coma Scale Motor Response: Obeys Commands Coma Scale Verbal Response: Oriented Coma Scale Total: 15 - Psychiatric Psychiatric exam: Present: normal affect, normal mood - Skin Skin exam: Present: warm, dry, intact Course Vital Signs Temperature 97.6 F 08/14/18 15:48 Pulse Rate 68 08/14/18 15:48 Respiratory Rate 18 08/14/18 15:48 Blood Pressure 72/49 08/14/18 15:48 O2 Sat by Pulse Oximetry 94 08/14/18 15:48 Temperature 97.6 F 08/14/18 15:48 Pulse Rate 60 08/14/18 18:47 Respiratory Rate 14 08/14/18 18:47 Blood Pressure 78/57 08/14/18 18:47 O2 Sat by Pulse Oximetry 100 08/14/18 18:47 Oxygen Delivery Oxygen Delivery Nasal Cannula Medical Decision Making - MDM Narrative Medical decision making narrative: Due the patient's into the emergency department with reports of being hypotensive as well as feeling like he is unable to include obtain basic laboratory testing as well as an EKG and chest x-ray. Patient will be given IV fluids to assist with blood pressure management. The patient's kidney for came back at 3.18 consistent with a acute kidney injury. The patient also has a negative troponin, negative d-dimer. The patient has been hypotensive throughout his stay here in the emergency department. He has received 2 L of IV fluids and has been fluid responsive area patient will be placed on IV maintenance fluids. Blood pressure responded with the systolics in the mid 80s with a map greater than 65. We did discuss putting in a central line with the patient and he stated that he did not wish to have one placed at this time. He stated he did not want it at this time but would possibly reconsider if things got worse. Patient's calcium was 8.0. Patient be given a gram of calcium gluconate. Patient is in agreement with being admitted to the hospital. I called spoke the admitting hospitalist Dr. Armstrong and he is except the patient to their service. I did relay to him that the patient did not wish to have a central line at this time and discussed this with the hospitalist. Patient will be admitted to the medical service for hypotension and acute kidney injury. - Medical Records Medical records reviewed: Yes I reviewed the patient's medical records. - Lab Data Lab results reviewed: Yes I reviewed the patient's lab results. Result diagrams: 08/14/18 16:33 08/14/18 16:33 Lab Results 08/14/18 08/14/18 08/14/18 Range/Units 15:52 16:33 16:33 WBC 7.7 (4.3-11.1) K/mcL RBC 4.31 (4.19-5.50) M/mcL Hgb 11.4 L (12.9-16.9) g/dL Hct 37.2 L (37.5-50.1) % MCV 86.3 (83.0-100.0) fL MCH 26.5 L (28.0-33.3) pg MCHC 30.6 L (31.6-35.5) g/dL RDW 18.5 H (11.5-14.5) % Plt Count 255 (140-400) K/mcL MPV 9.8 (9.4-12.4) fL Immature Gran % 0.4 (0-4) % Seg Neutrophils % 68.6 % Lymphocytes % 12.9 % Monocytes % 13.0 % Eosinophils % 4.6 % Basophils % 0.5 % Neutrophils # 5.3 (1.6-8.9) K/mcL Lymphocytes # 1.0 (0.6-4.6) K/mcL Monocytes # 1.0 (0.0-1.3) K/mcL Eosinophils # 0.4 (0.0-0.6) K/mcL Basophils # 0.0 (0.0-0.2) K/mcL D-Dimer 447 (0-500) ng/mLFEU Sodium 136 (136-145) mEq/L Potassium 4.6 (3.5-5.1) mEq/L Chloride 102 (98-107) mEq/L Carbon Dioxide 27 (23-29) mEq/L BUN 40 H (8-23) mg/dL Creatinine 3.18 H (0.70-1.30) mg/dL Est GFR ( Amer) 24 L (> 60) Est GFR (Non-Af Amer) 20 L (> 60) BUN/Creatinine Ratio 13 (6-26) Glucose 95 (70-105) mg/dL Calculated Osmolality 292 (280-300) Lactic Acid (0.5-2.2) mmol/L Calcium 8.0 L (8.6-10.3) mg/dL Total Bilirubin 0.4 (0.3-1.0) mg/dL AST 16 (13-39) Units/L ALT 19 (7-52) Units/L Alkaline Phosphatase 91 (34-104) Units/L Troponin I < 0.03 (< 0.04) ng/mL Serum Total Protein 5.9 L (6.4-8.9) g/dL Albumin 3.3 L (3.5-5.7) g/dL Globulin 2.6 (2.4-3.5) g/dL Albumin/Globulin Ratio 1.3 (1.1-2.2) 08/14/18 Range/Units 16:33 WBC (4.3-11.1) K/mcL RBC (4.19-5.50) M/mcL Hgb (12.9-16.9) g/dL Hct (37.5-50.1) % MCV (83.0-100.0) fL MCH (28.0-33.3) pg MCHC (31.6-35.5) g/dL RDW (11.5-14.5) % Plt Count (140-400) K/mcL MPV (9.4-12.4) fL Immature Gran % (0-4) % Seg Neutrophils % % Lymphocytes % % Monocytes % % Eosinophils % % Basophils % % Neutrophils # (1.6-8.9) K/mcL Lymphocytes # (0.6-4.6) K/mcL Monocytes # (0.0-1.3) K/mcL Eosinophils # (0.0-0.6) K/mcL Basophils # (0.0-0.2) K/mcL D-Dimer (0-500) ng/mLFEU Sodium (136-145) mEq/L Potassium (3.5-5.1) mEq/L Chloride (98-107) mEq/L Carbon Dioxide (23-29) mEq/L BUN (8-23) mg/dL Creatinine (0.70-1.30) mg/dL Est GFR ( Amer) (> 60) Est GFR (Non-Af Amer) (> 60) BUN/Creatinine Ratio (6-26) Glucose (70-105) mg/dL Calculated Osmolality (280-300) Lactic Acid 0.7 (0.5-2.2) mmol/L Calcium (8.6-10.3) mg/dL Total Bilirubin (0.3-1.0) mg/dL AST (13-39) Units/L ALT (7-52) Units/L Alkaline Phosphatase (34-104) Units/L Troponin I (< 0.04) ng/mL Serum Total Protein (6.4-8.9) g/dL Albumin (3.5-5.7) g/dL Globulin (2.4-3.5) g/dL Albumin/Globulin Ratio (1.1-2.2) - Radiology Data Radiology results reviewed: Yes I reviewed the patient's radiology results. Chest X-Ray 08/14/18 15:52 IMPRESSION: Persistent perihilar and basilar opacities, left greater than right. Persistent small left effusion versus pleural thickening. D/ / Marito Adhikari / Marito Adhikari Interpreting Provider: Marito Adhikari - EKG Data EKG #1 EKG attestation: Yes I reviewed and interpreted this EKG. EKG results narrative: EKG shows a sinus rhythm rate of 60 bpm, MT interval 184, QRS duration of 114, QTC of 464. There is ST elevation in 23 and aVF however when compared to previous EKG on 08/08/18 the patient had elevations at this time as well. Attestation Statement - Attestation Attestation: I, Dakota Arevalo, examined this patient and my medical decision-making was reviewed with the CONTINUITY READER/PA/Advanced Practice Nurse/Resident Physician. I agree with the documented findings, disposition and treatment plan as described except to the extent set forth below. 68-year-old male presents emergency Department with concerns of weakness and hypotension. Patient was brought from home. Home health nurse was unable to obtain a blood pressure. EMS states that his initial blood pressure was in the low 60s systolic. They are concerned about a possible STEMI because of changes in the leads of 23 and aVF. Upon evaluation emergency department the patient had EKG waveform that was consistent with his previous EKG. He denies fever, chills, nausea, vomiting, diarrhea. Patient blood pressure improved moderately with IV fluids. We offered central line for possible vasopressors because his blood pressure did not normalize however it was above a map of 65. Patient declined the central line. Chest x-ray does not show evidence of acute infiltrate. Urinalysis was negative for infection. Patient denies recent trauma. Patient feels comfortable with the plan to be admitted to hospital for further care and evaluation.
[2018-08-14 16:56] LABS: Basophils % 0.5 %; Eosinophils # 0.4 K/mcL (0.0-0.6); Eosinophils % 4.6 %; Hematocrit 37.2 % (37.5-50.1); Hemoglobin 11.4 g/dL (12.9-16.9); Immature Granulocytes % 0.4 % (0-4); Lymphocytes % 12.9 %; Mean Corpuscular HGB Conc 30.6 g/dL (31.6-35.5); Mean Corpuscular Hemoglobin 26.5 pg (28.0-33.3); Mean Corpuscular Volume 86.3 fL (83.0-100.0); Mean Platelet Volume 9.8 fL (9.4-12.4); Neutrophils # 5.3 K/mcL (1.6-8.9); Platelet Count 255 K/mcL (140-400); Red Blood Count 4.31 M/mcL (4.19-5.50); Red Cell Distribution Width 18.5 % (11.5-14.5); Segmented Neutrophils % 68.6 %
[2018-08-14 17:16] LABS: Troponin I < 0.03 ng/mL (< 0.04)
[2018-08-14 17:18] LABS: Alanine Aminotransferase 19 Units/L (7-52); Albumin 3.3 g/dL (3.5-5.7); Albumin/Globulin Ratio 1.3 (1.1-2.2); Alkaline Phosphatase 91 Units/L (34-104); Aspartate Amino Transferase 16 Units/L (13-39); BUN/Creatinine Ratio 13 (6-26); Bilirubin,Total 0.4 mg/dL (0.3-1.0); Blood Urea Nitrogen 40 mg/dL (8-23); Carbon Dioxide 27 mEq/L (23-29); Chloride 102 mEq/L (98-107); Globulin 2.6 g/dL (2.4-3.5); Glucose 95 mg/dL (70-105); Osmolality,Calculated 292 (280-300); Potassium 4.6 mEq/L (3.5-5.1); Sodium 136 mEq/L (136-145); Total Protein 5.9 g/dL (6.4-8.9); eGFR For Non-African Americans 20 (> 60)
[2018-08-14] MEDS: 0.9 % Sodium Chloride 1,000 ML IVC SCH (18:37)
[2018-08-14] MEDS ORDERED: Naloxone 0.4 MG/ML INJ IVP PRN (20:46)
--- NOTE | 2018-08-14 20:46 | Internal Med History&Physical ---
<Darryn Norman S - Last Filed: 08/14/18 21:49> Date of Encounter: 08/14/18 Time of Encounter: 21:49 Internal Medicine - H&P: HPI Chief complaint: low BP Admitted From: Home Plans for Post Hospital Care: Home History of present illness: Mr. Issa is a 68 year old male with PMH of CKD, a fib on xarelto, CVA, diabetes, GERD, CHF with pEF, sick sinus syndrome, and COPD on 2 L home oxygen. He presents to the hospital with the chief complaint of hypotension. He stated that his home health aide noted that his BP was very low today, in the 50's systolic and that he should come to [facility] for evaluation. He states that he has felt ill since today, was discharged from [facility] on monday for kidney failure. He was also recently here in early july 06 for a STEMI of the RCA, which was evaluated by Dr. Brown. He denies any dizziness, numbness, or tingling. He also states that he hasn't noticed any dark red stools or active bleeding from anywhere. He does note that he has had a decreased PO intake and is on multiple diuretics. He hasn't had much of an appetite and has been drinking less lately. He denies any active chest pain, SOB is at baseline. He has mild abdominal pain, mostly localized to the LLQ. Hasn't had a bowel movement since Monday. He denies any nausea and vomiting. He has some fevers/chills but is afebrile on arrival. He denies cough, sputum production or change in breathing status. While in the ER he was given 2L of IVF. He was also found to have an elevated creatinine, above his baseline. He will be admitted and evaluated further for hypotension, symptomatic bradycardia, and AG. Past Med Surg Social Fam HX - Past Medical History Medical history: arthritis, atrial fibrillation, CHF, COPD, coronary artery disease, CVA, diabetes, GERD, hyperlipidemia, hypertension, pulmonary embolus, renal disease, other Additional medical history: Pacemaker, emphysema, sick sinus syndrome. chronic knee pain. 3 CVA's. Last CVA April 2018. Psychiatric history: anxiety, depression, panic disorder, PTSD, previous psychiatric hospitalization - Past Surgical History Surgical History: cholecystectomy, herniorrhaphy, knee replacement, orthopedic, other, pacemaker/AICD Additional surgical history: Right knee replacement. Cardiac Ablasion 2014. left arm - Social History Smoking Status: Former smoker Smokeless Tobacco Status: No Alcohol use: none Drug use: none - Family History Brother Family Member Ethnicity: Non- Living Status: Still Living Father Adopted: No Family Member Ethnicity: Non- Living Status: Hx Family Cardiac Disorders: No Hx Family Respiratory Disorders: No Hx Family Cancer: Yes Hx Family GI Disorders: No Hx Family Endocrine Disorder: No Hx Family Neuromuscular Disorders: No Hx Family Neurologic Disorders: No Hx Family HEENT Disorders: No Hx Family Autoimmune Disorders: No Mother Adopted: No Family Member Ethnicity: Non- Twin of Family Member: Yes Living Status: Hx Family Cardiac Disorders: Yes Hx Family Respiratory Disorders: No Hx Family Cancer: No Hx Family GI Disorders: No Hx Family Endocrine Disorder: No Hx Family Neuromuscular Disorders: No Hx Family Neurologic Disorders: No Hx Family HEENT Disorders: No Hx Family Autoimmune Disorders: No Sister Family Member Ethnicity: Non- Living Status: Still Living Internal Medicine - H&P: Meds RX: Amiodarone [Cordarone] 200 mg PO DAILY 04/04/18 [History] RX: Aspirin 81 mg PO DAILY 04/04/18 [History] RX: Cholecalciferol (Vitamin D3) [Vitamin D3] 2,000 unit PO DAILY 04/04/18 [History] RX: DULoxetine [Cymbalta] 30 mg PO DAILY 04/04/18 [History] RX: Finasteride [Proscar] 5 mg PO DAILY 04/04/18 [History] RX: Lubiprostone [Amitiza] 16 mcg PO 0800,1700 04/04/18 [History] RX: Metoprolol XL (24 HR) Succ [Toprol Xl] 12.5 mg PO HS 04/04/18 [History] RX: Pantoprazole Sodium [Protonix] 40 mg PO DAILY@0730 04/04/18 [History] RX: Rivaroxaban [Xarelto] 20 mg PO DAILY@1700 04/04/18 [History] RX: Sennosides/Docusate Sodium [Colace 2-in-1 Tablet] 1 each PO BID PRN 04/04/18 [History] RX: Simethicone [Bicarsim] 80 mg PO TID PRN 04/04/18 [History] RX: Tamsulosin HCl [Flomax] 0.4 mg PO BID 04/04/18 [History] RX: Tizanidine HCl [Zanaflex] 2 mg PO BID PRN 04/04/18 [History] RX: Tiotropium Br/Olodaterol HCl [Stiolto Respimat Inhal [place]] 2 puff IH DAILY 04/24/18 [History] RX: Insulin ASPART [NovoLOG] 0 unit SQ TIDAC 04/25/18 [History] RX: Fluticasone/Salmeterol [Advair 250-50 Diskus] 1 puff IH BID 06/30/18 [History] RX: Gabapentin [Neurontin] 400 mg PO BID 06/30/18 [History] RX: LORazepam [Ativan] 0.5 mg PO HS PRN 06/30/18 [History] RX: Acetaminophen [Tylenol] 650 mg PO Q6HR PRN 07/26/18 [History] RX: Atorvastatin Calcium [Lipitor] 40 mg PO HS 07/26/18 [History] RX: DiphenhydraMINE [Benadryl] 25 mg PO HS PRN 07/26/18 [History] RX: Oxycodone HCl/Acetaminophen [Percocet 10-325 mg Tablet] 1 tab PO Q8H PRN 07/26/18 [History] RX: Furosemide [Lasix] 20 mg PO BID 08/09/18 [History] RX: Losartan [Cozaar] 25 mg PO DAILY 08/09/18 [History] RX: Potassium Chloride 20 meq PO TIDWM 08/09/18 [History] Allergy/AdvReac Type Severity Reaction Status Date / Time IVP DYE Allergy Severe Anaphylaxis Uncoded 08/14/18 15:58 All Systems PM: A 10-system review of systems was performed and is negative for pertinent findings except as documented above in the HPI. - Constitutional Constitutional: chills, fatigue, fever(s), malaise, weakness, no falls - EENT Eyes: blurry vision - Cardiovascular Cardiovascular ROS IM: dyspnea, dyspnea on exertion, irregular heart rhythm, no chest pain - Respiratory Respiratory: dyspnea, dyspnea on exertion, no cough, no excessive phlegm production, no change in phlegm color - Gastrointestinal Gastrointestinal: abdominal pain, no hematochezia, no melena, no nausea, no vomiting - Musculoskeletal Musculoskeletal ROS IM: arthralgias, back pain - Neurological Neurological ROS: lack of coordination, weakness, no confusion, no dizziness, no frequent falls, no headache(s), no numbness, no paresthesias - Psychiatric Psychiatric: difficulty concentrating, no confusion - Endocrine Endocrine IM: fatigue - Hematologic/Lymphatic Hematologic/Lymphatic: easy bruising, no easy bleeding - Constitutional Vitals: Temp Pulse Resp BP Pulse Ox 97.6 F 65 16 84/61 100 08/14/18 15:48 08/14/18 20:41 08/14/18 20:41 08/14/18 20:41 08/14/18 20:41 Exam: General - AOx3, sleepy appearing male in no acute distress, laying comfortably in bed HEENT - no scleral icterus, EOMI Neck - trachea midline Oral - dry mucus membranes Cardio - irregularly irregular Lungs - diminished lung sounds, prolonged expiratory phase, no wheeze/rhonchi/crackles Abd - tender to palpation mostly in the LLQ, distention noted thruout, no fluid wave, no peritoneal signs, obese abd Extremities - bilateral lower extremity edema, strength 5/5 LE Skin - no open wounds or sores noted Neuro - no FND, CN2-12 intact Psych - normal affect and mood Internal Med - H&P Results - Labs CBC & Chem 7: 08/14/18 16:33 08/14/18 16:33 Labs: Short CBC 08/14/18 Range/Units 16:33 WBC 7.7 (4.3-11.1) K/mcL Hgb 11.4 L (12.9-16.9) g/dL Hct 37.2 L (37.5-50.1) % Plt Count 255 (140-400) K/mcL Neutrophils # 5.3 (1.6-8.9) K/mcL BMP 08/14/18 16:33 Sodium 136 Potassium 4.6 Chloride 102 Carbon Dioxide 27 BUN 40 H Creatinine 3.18 H Glucose 95 Calcium 8.0 L Cardiac Enzymes 08/14/18 Range/Units 16:33 Troponin I < 0.03 (< 0.04) ng/mL Liver Function 08/14/18 Range/Units 16:33 Total Bilirubin 0.4 (0.3-1.0) mg/dL AST 16 (13-39) Units/L ALT 19 (7-52) Units/L Alkaline Phosphatase 91 (34-104) Units/L Albumin 3.3 L (3.5-5.7) g/dL - Impressions ITS Impressions Chest X-Ray 08/14/18 15:52 IMPRESSION: Persistent perihilar and basilar opacities, left greater than right. Persistent small left effusion versus pleural thickening. D/ / Marito Adhikari / Marito Adhikari Interpreting Provider: Marito Adhikari - Assessment and plan (1) AG (acute kidney injury) Current Visit: Yes Status: Acute Assessment and plan: Pt with hx of chronic kidney disease presents - likely pre-renal in origin secondary to decreased PO intake and excessive diuresis Creatinine on presentation 3.18, baseline appears to be around 1.3-1.5 GFR 20 Plan: - strict I&O - hold nephrotoxic agents diuretics, tamsulosin held - renally dose medications if needed - continue to fluid resuscitate with 125cc/hr NS IVF (2) Hypotension Current Visit: Yes Status: Acute Assessment and plan: BP noted to be in 40's and 50's by home health according to pt - initial BP in systolics 60's, diastolics 40's - while in the room, pt has MAP of 69 and SBP in the mid 80's on monitor - currently receiving IVF, has fluid responded Likely hypovolemic in nature from pt getting excessive diuresis, likely causing pre-renal AG as well - pt denies seeing blood in stool, denies passing out, denies dizziness - HR in the mid to high 60's Unlikely to be cardiac in origin, this is likely due to excessive beta blockade and excessive diuresis - ruled out ACS, troponin (-) - EKG showed no new changes from previous admission, continued to show ST elevation in leads 2,3, AVF - note that the pt did have an inferior MD in July 2018 Plan: - continue IVF at 125cc/hr - holding diuretics - holding beta blockers, pt is mildly bradycardic - plan to admit to ICU for further workup and evaluation Pt CONSENTED to central line placement if needed. Discussed the risks and benefits of placement Plan to insert line when moved to the floor Plan to start pressors if pt becomes symptomatic or MAP <65 - discussed CODE STATUS with the pt, wishes to remain FULL CODE Qualifiers: Hypotension type: unspecified hypotension type Qualified Code(s): I95.9 - Hypotension, unspecified (3) Abdominal distension Current Visit: No Status: Acute Assessment and plan: Pt notes increasing abdominal distention - states he has had paracentesis in the past, no record of that has been found Pt exhibits no signs of hepatic encephalopathy, has no stigmata of ESLD - abdominal exam is negative for varices or spider angiomatas, no palmar erythema noted May be secondary to nephrotic syndrome vs NAFLD as pt does have morbid obesity and is a alf diabetic with uncontrolled BG Plan: - check LFT's - check ammonia - ultrasound of the abdomen pending (4) COPD (chronic obstructive pulmonary disease) Current Visit: No Status: Chronic Assessment and plan: NOT in acute exasperation - continue home meds - on 2L chronically at home Qualifiers: COPD type: unspecified COPD Qualified Code(s): J44.9 - Chronic obstructive pulmonary disease, unspecified (5) Diabetes mellitus Current Visit: No Status: Chronic Assessment and plan: Pt BG this AM reported to be 89 - has hx of uncontrolled diabetes, states his blood sugars are often high Plan: - pt is NPO for now in case of decompensation - continue IVF - BG checks - LDSS once pt is okay to eat Qualifiers: Diabetes mellitus type: type 2 Diabetes mellitus alf insulin use: without termite inspector use Diabetes mellitus complication status: with kidney complications Diabetes mellitus complication detail: with chronic kidney disease Chronic kidney disease stage: stage 3 (moderate) Qualified Code(s): E11.22 - Type 2 diabetes mellitus with diabetic chronic kidney disease; N18.3 - Chronic kidney disease, stage 3 (moderate) (6) Pacemaker Current Visit: No Status: Chronic Assessment and plan: Chronic. - has hx of sick sinus syndrome (7) Diastolic CHF, chronic Current Visit: No Status: Chronic Assessment and plan: NOT in acute exasperation - ECHO performed 07/07/18 LVEF 60%. Mild aortic regurgitation. Mild mitral regurgitation. Mild-moderate tricuspid regurgitation. No pulmonary hypertension. (8) DVT prophylaxis Current Visit: Yes Status: Acute Assessment and plan: on xarelto, SCD (9) Atrial fibrillation Current Visit: No Status: Chronic Assessment and plan: On xarelto, codarone - also on toprol, currently held Qualifiers: Atrial fibrillation type: paroxysmal Qualified Code(s): I48.0 - Paroxysmal atrial fibrillation (10) Hyperlipidemia Current Visit: Yes Status: Acute Assessment and plan: On lipitor Qualifiers: Hyperlipidemia type: unspecified Qualified Code(s): E78.5 - Hyperlipidemia, unspecified (11) GERD (gastroesophageal reflux disease) Current Visit: No Status: Chronic Assessment and plan: Protonix 40mg PO at home - will continue home med Qualifiers: Esophagitis presence: esophagitis presence not specified Qualified Code(s): K21.9 - Gastro-esophageal reflux disease without esophagitis (12) Constipation Current Visit: No Status: Chronic Assessment and plan: Takes amitiza at home - chronic Qualifiers: Constipation type: unspecified constipation type Qualified Code(s): K59.00 - Constipation, unspecified - Time Spent With Patient Total time spent is greater than 50% in coordination of care (as documented) at patient's floor/unit and/or counseling patient: 25 - 35 minutes <Amrita Gimenez - Last Filed: 08/15/18 00:17> Date of Encounter: 08/14/18 Internal Medicine - H&P: HPI History of present illness: Mr. Issa is a 68 year old male All Systems PM: A 10-system review of systems was performed and is negative for pertinent findings except as documented above in the HPI. - Constitutional Vitals: Temp Pulse Resp BP Pulse Ox 97.5 F L 68 15 98/75 97 08/14/18 22:47 08/14/18 23:48 08/14/18 22:47 08/14/18 22:47 08/14/18 22:47 Internal Med - H&P Results - Labs CBC & Chem 7: 08/14/18 16:33 08/14/18 16:33 Labs: Short CBC 08/14/18 Range/Units 16:33 WBC 7.7 (4.3-11.1) K/mcL Hgb 11.4 L (12.9-16.9) g/dL Hct 37.2 L (37.5-50.1) % Plt Count 255 (140-400) K/mcL Neutrophils # 5.3 (1.6-8.9) K/mcL BMP 08/14/18 16:33 Sodium 136 Potassium 4.6 Chloride 102 Carbon Dioxide 27 BUN 40 H Creatinine 3.18 H Glucose 95 Calcium 8.0 L Cardiac Enzymes 08/14/18 Range/Units 16:33 Troponin I < 0.03 (< 0.04) ng/mL Liver Function 08/14/18 Range/Units 16:33 Total Bilirubin 0.4 (0.3-1.0) mg/dL AST 16 (13-39) Units/L ALT 19 (7-52) Units/L Alkaline Phosphatase 91 (34-104) Units/L Albumin 3.3 L (3.5-5.7) g/dL - Impressions ITS Impressions Chest X-Ray 08/14/18 15:52 IMPRESSION: Persistent perihilar and basilar opacities, left greater than right. Persistent small left effusion versus pleural thickening. D/ / Marito Adhikari / Marito Adhikari Interpreting Provider: Marito Adhikari Abdomen Ultrasound 08/14/18 21:00 IMPRESSION: Limited sonographic images of the abdomen does not demonstrate any significant ascites. D/ / 08/14/2018 22:26:27 Alexis Armstrong MD / javier Interpreting Provider: Alexis Armstrong MD - Time Spent With Patient Total time spent is greater than 50% in coordination of care (as documented) at patient's floor/unit and/or counseling patient: - Attending Attestation I performed a history and physical exam of the patient on 08/14/18 and discussed management with the resident. I reviewed the resident's note and agree with the documented findings and plan of care. Dakota Issa is a 68 year old man with multiple cardiovascular comorbidities as mentioned above who presented with fatigue and lightheadedness, found notably hypotensive that responded poorly to fluid resuscitation earlier while refusing central line placement in the [facility] he would need vasopressor support. He was admitted to the ICU for closer monitoring where with continued infusions his BP improvement and his symptoms gradually abated. Physical exam was remarkable for dry mucous membranes but 2+ pitting edema in his legs. Notable labs are a significant increase in serum creatinine from his baseline, slightly low calcium and elevated phosphorus. Will continue to revive him with volume as there seems to be a component of intravascular depletion possibly secondary to his use of diuretics with the compounding effect of ACEI/ARB on his kidney function. We shall hold his home agents for now until stability is established. Repeat his labs in the morning. Obtain a bladder scan and if retaining insert page catheter as well as resume tamsulosin. Will consider albumin infusion if deemed necessary for volume support but for now this is not the case. TOD PERALES.
[2018-08-14] MEDS ORDERED: *HR* OxyCODONE/APAP 10/325 TABLET PO PRN (21:01)
[2018-08-14] MEDS ORDERED: *HR* LORazepam 0.5 MG TABLET PO PRN (21:01)
[2018-08-14] MEDS ORDERED: D5% in Water 1,000 ML IVC PRN (21:55)
[2018-08-14] MEDS ORDERED: Dextrose Gel 15 GM/37.5 ML TUBE PO PRN ×2 (21:55)
[2018-08-14] MEDS ORDERED: *HR* Dextrose 50 % in Water (Syg) 50 ML SYRINGE IVP PRN (21:55)
[2018-08-14 22:03] LABS: Magnesium 2.1 mg/dL (1.6-2.6); Phosphorous 5.4 mg/dL (2.7-4.5)
[2018-08-15] MEDS ORDERED: traZODone 50 MG TABLET PO SCH ×2 (00:15→21:00)
[2018-08-15] MEDS ORDERED: Melatonin 3 MG TABLET PO SCH (00:15)
[2018-08-15] MEDS: 0.9 % Sodium Chloride 1,000 ML IVC SCH (03:18)
[2018-08-15 05:03] LABS: Basophils # 0.1 K/mcL (0.0-0.2); Basophils % 0.8 %; Eosinophils # 0.4 K/mcL (0.0-0.6); Eosinophils % 5.5 %; Hematocrit 37.8 % (37.5-50.1); Hemoglobin 11.6 g/dL (12.9-16.9); Immature Granulocytes % 0.3 % (0-4); Lymphocytes # 1.2 K/mcL (0.6-4.6); Lymphocytes % 18.6 %; Mean Corpuscular HGB Conc 30.7 g/dL (31.6-35.5); Mean Corpuscular Hemoglobin 26.5 pg (28.0-33.3); Mean Corpuscular Volume 86.5 fL (83.0-100.0); Mean Platelet Volume 9.5 fL (9.4-12.4); Monocytes # 0.7 K/mcL (0.0-1.3); Neutrophils # 4.2 K/mcL (1.6-8.9); Platelet Count 256 K/mcL (140-400); Red Blood Count 4.37 M/mcL (4.19-5.50); Red Cell Distribution Width 18.5 % (11.5-14.5); Segmented Neutrophils % 64.8 %
[2018-08-15 05:21] LABS: Potassium 4.1 mEq/L (3.5-5.1)
--- NOTE | 2018-08-15 07:13 | Pulmonology Progress Note ---
Date of Encounter: 08/15/18 Objective PUL Vital signs: Last Vital Signs Temp 97.3 F L 08/15/18 04:30 Pulse 60 08/15/18 06:00 Resp 14 08/15/18 06:00 BP 92/48 08/15/18 06:00 Pulse Ox 99 08/15/18 06:00 Results - Laboratory Findings CBC and BMP: 08/15/18 04:11 08/15/18 04:11 PT/INR, D-dimer D-Dimer 447 ng/mLFEU (0-500) 08/14/18 15:52 Abnormal lab findings: Abnormal lab results Hgb 11.6 g/dL (12.9-16.9) L 08/15/18 04:11 MCH 26.5 pg (28.0-33.3) L 08/15/18 04:11 MCHC 30.7 g/dL (31.6-35.5) L 08/15/18 04:11 RDW 18.5 % (11.5-14.5) H 08/15/18 04:11 BUN 34 mg/dL (8-23) H 08/15/18 04:11 Creatinine 2.01 mg/dL (0.70-1.30) H 08/15/18 04:11 Est GFR ( Amer) 40 (> 60) L 08/15/18 04:11 Est GFR (Non-Af Amer) 33 (> 60) L 08/15/18 04:11 Calcium 8.0 mg/dL (8.6-10.3) L 08/15/18 04:11 Phosphorus 5.4 mg/dL (2.7-4.5) H 08/14/18 21:15 Serum Total Protein 5.9 g/dL (6.4-8.9) L 08/14/18 16:33 Albumin 3.3 g/dL (3.5-5.7) L 08/14/18 16:33 - Microbiology Findings Microbiology Findings: Microbiology, Last 48 Hours 08/14/18 19:06 Influenza Types A,B Antigen - Final Nasopharyngeal - Clinical Findings Intake & Output: Intake & Output 08/14/18 08/14/18 08/15/18 15:59 23:59 07:59 Intake Total 2110 / 2110 1250 / 1250 Output Total 650 / 650 800 / 800 Balance 1460 / 1460 450 / 450 Weight 133.356 kg Consult Discharge Plan - Plan [facility]errals: [facility]P [Primary Care Provider[facility] -
[2018-08-15] MEDS: Insulin LISPRO 300 UNITS/3 ML VIAL SQ SCH ×4 (07:51→21:00)
--- NOTE | 2018-08-15 08:42 | Internal Med Progress Note ---
<Nori Mckeon - Last Filed: 08/15/18 15:57> Hospitalist Progress Note - Encounter Date of Encounter: 08/15/18 Time of Encounter: 09:35 - Subjective Interval History: Patient states he is feeling much better this morning. He denies chest pain, shortness of breath, cough, abdominal pain, nausea, vomiting, diarrhea. He denies any lightheadedness or dizziness. No acute complaints at this time. Patient presenting from home with hypotension. Blood pressure was initially 50 systolic. It is been 95 systolic and responsive to fluids. He has not required pressors at this time. Patient has otherwise remained stable. He will be transferred from ICU to telemetry bed. patient is again hypotensive at 0330 with systolic in the 80's. Will give another liter of IV fluids at 125mls/hr. Discussed with pharmacy at 16:10 who states they will verify the patient's home medication list. - Exam Vitals: Temp Pulse Resp BP Pulse Ox 97.3 F L 63 14 100/60 98 08/15/18 07:15 08/15/18 07:00 08/15/18 07:00 08/15/18 07:00 08/15/18 07:00 Exam: General: alert, in no acute distress, laying comfortbably in bed HEENT: conjunctiva normal, oral mucosa moist Neck: [place] midline Cardio: irregular rhythm, normal rate. no murmur Lungs: diminished breath sounds bilaterally, no wheezing or rhonchi Extremities: bilateral 1+ pitting edema, SCDs on Skin: warm, dry, intact Neuro: alert and oriented to person, place, time Psych: normal affect and mood - Assessment and Plan (1) Hypotension Current Visit: Yes Status: Acute Assessment and Plan: BP noted to be in 40's and 50's by home health according to pt on arrival Likely due to hypovolemia from excessive diuresis and BB No acute blood loss Unlikely cardiac as no change on EKG and troponin normal. Initially responsive to IVFs with BP 90's/60s and fluids d/c'd secondary to CHF history. At 15:00, BP down in the 80's and will add another liter normal saline at 125mls/hour Patient may need central line and pressors when MAP<65. He has been consented to central line placement and risks and benefits discussed to him on admission. Continue to hold diuretics and BB Full Code (2) Acute kidney injury superimposed on CKD Current Visit: Yes Status: Acute Assessment and Plan: History of CKD with AG likely prerenal due to decreased PO intake and excessive diuresis Improved from 3.18 to 2.01 Avoid nephrotoxic medications Diuretics and tamsulosin on hold (3) Abdominal distension Current Visit: Yes Status: Acute Assessment and Plan: Likely due to nephrotic syndrome verses NAFLD No record of paracentesis in the past. LFTs within normal limits. Abdominal ultrasound with no evidence of ascites. (4) CAD (coronary atherosclerotic disease) Current Visit: No Status: Chronic Assessment and Plan: STEMI of RCA on Jul 06. No acute EKG changes. Denies chest pain On Xarelto (5) Diabetes mellitus Current Visit: No Status: Chronic Assessment and Plan: History of uncontrolled DM LDSS Diabetic diet (6) COPD (chronic obstructive pulmonary disease) Current Visit: No Status: Chronic Assessment and Plan: No acute exacerbation. Stable bilateral basilar opacities on CXR. Remains on 2L O2 per [place], which he is on at home/ (7) Sick sinus syndrome Current Visit: No Status: Chronic Assessment and Plan: Chronic. Has pacemaker placement (8) Hyperlipidemia Current Visit: Yes Status: Chronic Assessment and Plan: Continue lipitor (9) CHF (congestive heart failure) Current Visit: No Status: Chronic Assessment and Plan: Diastolic CHF, chronic Echo on 07/07/18 with LVEF 60% Patient on IVFs Diuretics on hold Will need to monito (10) GERD (gastroesophageal reflux disease) Current Visit: No Status: Chronic Assessment and Plan: Home protonix on hold (11) Atrial fibrillation Current Visit: No Status: Chronic Assessment and Plan: Continue xarelto, codarone Toprol on hold due to bradycardia on admission DVT Prophylaxis: on Xarelto, SCDs - Time Spent with Patient Total time spent is greater than 50% in coordination of care (as documented) at patient's floor/unit and/or counseling patient: Internal Medicine: Result - Labs CBC & Chem 7: 08/15/18 04:11 08/15/18 04:11 Labs: Short CBC 08/14/18 08/15/18 Range/Units 16:33 04:11 WBC 7.7 6.5 (4.3-11.1) K/mcL Hgb 11.4 L 11.6 L (12.9-16.9) g/dL Hct 37.2 L 37.8 (37.5-50.1) % Plt Count 255 256 (140-400) K/mcL Neutrophils # 5.3 4.2 (1.6-8.9) K/mcL BMP 08/14/18 08/15/18 16:33 04:11 Sodium 136 138 Potassium 4.6 4.1 Chloride 102 106 Carbon Dioxide 27 25 BUN 40 H 34 H Creatinine 3.18 H 2.01 H Glucose 95 75 Calcium 8.0 L 8.0 L Cardiac Enzymes 08/14/18 Range/Units 16:33 Troponin I < 0.03 (< 0.04) ng/mL Liver Function 08/14/18 Range/Units 16:33 Total Bilirubin 0.4 (0.3-1.0) mg/dL AST 16 (13-39) Units/L ALT 19 (7-52) Units/L Alkaline Phosphatase 91 (34-104) Units/L Albumin 3.3 L (3.5-5.7) g/dL - ABG Interpretation ABG results: PT/INR, D-dimer D-Dimer 447 ng/mLFEU (0-500) 08/14/18 15:52 - Impressions Impressions Chest X-Ray 08/14/18 15:52 IMPRESSION: Persistent perihilar and basilar opacities, left greater than right. Persistent small left effusion versus pleural thickening. D/ / Marito Adhikari / Marito Adhikari Interpreting Provider: Marito Adhikari Abdomen Ultrasound 08/14/18 21:00 IMPRESSION: Limited sonographic images of the abdomen does not demonstrate any significant ascites. D/ / 08/14/2018 22:26:27 Alexis Armstrong MD / javier Interpreting Provider: Alexis Armstrong MD Consult Discharge Plan - Plan [facility]errals: [facility] [Primary Care Provider] - <Joshua David - Last Filed: 08/15/18 18:55> Hospitalist Progress Note - Encounter Date of Encounter: 08/15/18 - Exam Vitals: Temp Pulse Resp BP Pulse Ox 98.1 F 61 14 104/67 96 08/15/18 15:59 08/15/18 17:00 08/15/18 17:00 08/15/18 17:00 08/15/18 17:00 - Time Spent with Patient Total time spent is greater than 50% in coordination of care (as documented) at patient's floor/unit and/or counseling patient: Internal Medicine: Result - Labs CBC & Chem 7: 08/15/18 04:11 08/15/18 04:11 Labs: Short CBC 08/15/18 Range/Units 04:11 WBC 6.5 (4.3-11.1) K/mcL Hgb 11.6 L (12.9-16.9) g/dL Hct 37.8 (37.5-50.1) % Plt Count 256 (140-400) K/mcL Neutrophils # 4.2 (1.6-8.9) K/mcL BMP 08/15/18 04:11 Sodium 138 Potassium 4.1 Chloride 106 Carbon Dioxide 25 BUN 34 H Creatinine 2.01 H Glucose 75 Calcium 8.0 L Urine 08/15/18 Range/Units 08:30 Urine Color Yellow (Yellow) Urine Clarity Clear (Clear) Urine pH 5.5 (5.0-8.0) pH Units Ur Specific [place] 1.013 (1.010-1.025) Urine Protein Negative (Neg-Trace) mg/dL Urine Glucose (UA) Normal (Normal) mg/dL - ABG Interpretation ABG results: PT/INR, D-dimer D-Dimer 447 ng/mLFEU (0-500) 08/14/18 15:52 - Impressions Impressions Abdomen Ultrasound 08/14/18 21:00 IMPRESSION: Limited sonographic images of the abdomen does not demonstrate any significant ascites. D/ / 08/14/2018 22:26:27 Alexis Armstrong MD / javier Interpreting Provider: Alexis Armstrong MD - Attending Attestation I examined this patient and my medical decision-making was reviewed with the Resident Physician. I agree with the documented findings, disposition and treatment plan as described except to the extent set forth below. <Nori Mckeon M - Last Filed: 08/15/18 15:57> (1) Hypotension Qualifiers: Hypotension type: unspecified hypotension type Qualified Code(s): I95.9 - Hypotension, unspecified (4) CAD (coronary atherosclerotic disease) Qualifiers: Coronary Disease-Associated Artery/Lesion type: [place] artery [place] vs. transplanted heart: [place] heart Associated angina: without angina Qualified Code(s): I25.10 - Atherosclerotic heart disease of 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 (6) COPD (chronic obstructive pulmonary disease) Qualifiers: Emphysema type: unspecified Qualified Code(s): J43.9 - Emphysema, unspecified (8) Hyperlipidemia Qualifiers: Hyperlipidemia type: unspecified Qualified Code(s): E78.5 - Hyperlipidemia, unspecified (9) CHF (congestive heart failure) Qualifiers: Heart failure type: unspecified Heart failure chronicity: chronic Qualified Code(s): I50.9 - Heart failure, unspecified (10) GERD (gastroesophageal reflux disease) Qualifiers: Esophagitis presence: esophagitis presence not specified Qualified Code(s): K21.9 - Gastro-esophageal reflux disease without esophagitis (11) Atrial fibrillation Qualifiers: Atrial fibrillation type: paroxysmal Qualified Code(s): I48.0 - Paroxysmal atrial fibrillation
[2018-08-15] MEDS ORDERED: *HR* Amiodarone 200 MG TABLET PO SCH (09:00)
[2018-08-15] MEDS ORDERED: Gabapentin 400 MG CAPSULE PO SCH (09:00)
[2018-08-15 09:13] LABS: Bilirubin,Urine Negative (Negative); Blood,Urine Negative (Negative); Clarity,Urine Clear (Clear); Color,Urine Yellow (Yellow); Glucose,Urine (UA) Normal (Normal); Ketones,Urine Negative (Negative); Leukocyte Esterase,Urine Negative (Negative); Nitrite,Urine Negative (Negative); PH,Urine 5.5 pH Units (5.0-8.0); Protein,Urine Negative (Neg-Trace); Specific Gravity,Urine 1.013 (1.010-1.025); Urobilinogen,Urine Normal (Normal)
[2018-08-15] MEDS ORDERED: Budesonide/Formoterol 80/4.5 MDI IH SCH (10:00)
[2018-08-15] MEDS ORDERED: D5% in Water 1,000 ML IVC PRN (11:54)
[2018-08-15] MEDS ORDERED: Naloxone 0.4 MG/ML INJ IVP PRN (11:54)
[2018-08-15] MEDS ORDERED: *HR* Dextrose 50 % in Water (Syg) 50 ML SYRINGE IVP PRN (11:54)
[2018-08-15] MEDS ORDERED: *HR* LORazepam 0.5 MG TABLET PO PRN (11:54)
[2018-08-15] MEDS ORDERED: Dextrose Gel 15 GM/37.5 ML TUBE PO PRN ×2 (11:54)
[2018-08-15] MEDS ORDERED: Acetaminophen 325 MG TABLET PO PRN (12:36)
--- NOTE | 2018-08-15 14:30 | Electrocardiograph Report ---
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
[2018-08-15] MEDS ORDERED: 0.9 % Sodium Chloride 1,000 ML IVC SCH (16:15)
[2018-08-15] MEDS ORDERED: *HR* Rivaroxaban 15 MG TABLET PO SCH ×2 (17:00)
[2018-08-15] MEDS: Budesonide/Formoterol 80/4.5 MDI IH SCH (20:30)
[2018-08-15] MEDS: Melatonin 3 MG TABLET PO SCH (21:00)
[2018-08-15] MEDS: Gabapentin 400 MG CAPSULE PO SCH (21:00)
[2018-08-15] MEDS ORDERED: Insulin LISPRO 300 UNITS/3 ML VIAL SQ SCH (21:00)
[2018-08-15] MEDS: Nystatin POWDER 30 GM BOTTLE TP SCH (21:00)
[2018-08-16] MEDS ORDERED: Melatonin 3 MG TABLET PO ONE (03:23)
--- NOTE | 2018-08-16 03:44 | Event Note ---
Date of Encounter: 08/15/18 Time of Encounter: 20:25 Alerted by pts. nurse Tila RN that the pt. was admitted for hypotension and was requesting his gabapentin 400 mg, melatonin 9 mg, and trazodone 200 mg. BP at the time was 109/63. Nurse reported pt. was upset that I was holding medications for now d/t hypotension. Trazodone was not currently on pts. home meds. Went to see pt. who was resting in bed. He stated that every time he comes to the hospital his medications are held. I stated that this was d/t his hypotension. He reported that several nights before when he was in ICU, his melatonin and trazodone was ordered even though he was hypotensive. I stated I did not want to make he hypotension worse. Nurse instructed to monitor BPs and give me the results which were: 103/67. 110/71, and 98/62. I had discussed giving the pt. Benadryl and the melatonin if hypotension persisted which he was amenable to. Notified by nurse that pts. BP continued to be <115 systolically. Order for trazodone held and melatonin 9 mg and one-time dose of Benadryl 25 mg PO ordered. Nurse instructed to monitor pts. BP hourly so he could get some rest. Nurse also instructed to alert me immediately of any adverse changes.
[2018-08-16 04:11] LABS: Basophils % 0.6 %; Eosinophils # 0.3 K/mcL (0.0-0.6); Eosinophils % 3.9 %; Hematocrit 35.4 % (37.5-50.1); Hemoglobin 11.1 g/dL (12.9-16.9); Immature Granulocytes % 0.5 % (0-4); Lymphocytes # 1.1 K/mcL (0.6-4.6); Lymphocytes % 16.7 %; Mean Corpuscular HGB Conc 31.4 g/dL (31.6-35.5); Mean Corpuscular Hemoglobin 26.4 pg (28.0-33.3); Mean Corpuscular Volume 84.3 fL (83.0-100.0); Mean Platelet Volume 9.6 fL (9.4-12.4); Monocytes # 0.7 K/mcL (0.0-1.3); Monocytes % 10.8 %; Neutrophils # 4.5 K/mcL (1.6-8.9); Platelet Count 263 K/mcL (140-400); Red Cell Distribution Width 18.1 % (11.5-14.5); Segmented Neutrophils % 67.5 %
[2018-08-16 04:23] LABS: BUN/Creatinine Ratio 18 (6-26); Blood Urea Nitrogen 26 mg/dL (8-23); Calcium 8.4 mg/dL (8.6-10.3); Carbon Dioxide 27 mEq/L (23-29); Chloride 108 mEq/L (98-107); Glucose 97 mg/dL (70-105); Osmolality,Calculated 293 (280-300); Sodium 139 mEq/L (136-145); eGFR For Non-African Americans 50 (> 60)
--- NOTE | 2018-08-16 08:04 | Internal Med Progress Note ---
Addendum entered and electronically signed by Joshua David MD 08/17/18 22:19: I examined this patient and my medical decision-making was reviewed with the Resident Physician. I agree with the documented findings, disposition and treatment plan as described except to the extent set forth below. No acute events. BP more acceptamin SBP is low 100s mmHg range with normal HR after Toprolol has been held. Patient has remained stable and is set for discharge today. All questions answered. Discharge time 45 min Original Note: <Nori Mckeon - Last Filed: 08/16/18 16:08> Hospitalist Progress Note - Encounter Date of Encounter: 08/16/18 Time of Encounter: 09:30 - Subjective Interval History: Patient states he is doing well. He slept overnight as he was given his melatonin. However trazodone was still being held secondary to his hypotension. Blood pressures have improved to 100-110 systolic. He denies weakness, lightheadedness, chest pain, shortness of breath, abdominal pain, nausea, vomiting. He has no acute complaints at this time. IV fluids have been discontinued. - Exam Vitals: Temp Pulse Resp BP Pulse Ox 97.8 F 67 18 101/64 96 08/16/18 07:42 08/16/18 07:42 08/16/18 07:42 08/16/18 07:42 08/16/18 07:42 Exam: General: alert, in no acute distress, sitting up in bed. HEENT: normal conjunctiva, oral mucosa moist Neck: trachea midline Cardio: irregular rhythm, normal rate. no murmur Lungs: clear to auscultation bilaterally, no rales or rhonchi, no wheezing Extremities: 1+ pitting edema bilateral lower extremities, normal capillary refi ll Neuro: A&Ox3, CN II-XII intact Psych: normal affect and mood Skin: warm, dry, intact - Assessment and Plan (1) Hypotension Current Visit: Yes Status: Resolved Assessment and Plan: BP noted to be in 40's and 50's by home health according to pt on arrival Unclear etiology. Possibly due to hypovolemia from excessive diuresis and BB, versus adrenal insufficiency. No acute blood loss, H/H stable. Unlikely cardiac as no change on EKG and troponin normal. Urine cortisol 2.1 at 0400. Fluid responsive, improved. IV fluids have been discontinued. Will resume Lasix 40mg PO daily and monitor BP Continue to hold BB Anticipate discharge home tomorrow with if blood pressures remain stable on Lasix. (2) Acute kidney injury superimposed on CKD Current Visit: Yes Status: Resolved Assessment and Plan: History of CKD with AG likely prerenal due to decreased PO intake and excessive diuresis Improved to 1.42, which appears to be his baseline Continue to avoid nephrotoxic medications Lasix resumed. Monitor. (3) Abdominal distension Current Visit: Yes Status: Chronic Assessment and Plan: Likely due to nephrotic syndrome verses NAFLD. No abdominal pain. Normal BM No record of paracentesis in the past. LFTs within normal limits. Abdominal ultrasound with no evidence of ascites. (4) CAD (coronary atherosclerotic disease) Current Visit: No Status: Chronic Assessment and Plan: STEMI of RCA on Jul 06. No acute EKG changes. No chest pain while here Continue Xarelto (5) Diabetes mellitus Current Visit: No Status: Chronic Assessment and Plan: History of uncontrolled DM COntinue low dose sliding scale insulin and diabetic diet (6) COPD (chronic obstructive pulmonary disease) Current Visit: No Status: Chronic Assessment and Plan: Stable. On 2L O2 per [place], which is his home dose. Continue home meds. (7) Sick sinus syndrome Current Visit: No Status: Chronic Assessment and Plan: Chronic. Has pacemaker placement (8) Hyperlipidemia Current Visit: Yes Status: Chronic Assessment and Plan: Continue with lipitor (9) CHF (congestive heart failure) Current Visit: No Status: Chronic Assessment and Plan: Chronic diastolic CHF Echo on 07/07/18 with LVEF 60% IVFs discontinued. Lasix resumed. (10) Atrial fibrillation Current Visit: No Status: Chronic Assessment and Plan: Rate controlled Continue xarelto, codarone Toprol on hold due to bradycardia on admission DVT Prophylaxis: on Xarelto, SCDs - Time Spent with Patient Total time spent is greater than 50% in coordination of care (as documented) at patient's floor/unit and/or counseling patient: Internal Medicine: Result - Labs CBC & Chem 7: 08/16/18 03:47 08/16/18 03:47 Labs: Short CBC 08/16/18 Range/Units 03:47 WBC 6.6 (4.3-11.1) K/mcL Hgb 11.1 L (12.9-16.9) g/dL Hct 35.4 L (37.5-50.1) % Plt Count 263 (140-400) K/mcL Neutrophils # 4.5 (1.6-8.9) K/mcL BMP 08/16/18 03:47 Sodium 139 Potassium 4.0 Chloride 108 H Carbon Dioxide 27 BUN 26 H Creatinine 1.42 H Glucose 97 Calcium 8.4 L Urine 08/15/18 Range/Units 08:30 Urine Color Yellow (Yellow) Urine Clarity Clear (Clear) Urine pH 5.5 (5.0-8.0) pH Units Ur Specific [place] 1.013 (1.010-1.025) Urine Protein Negative (Neg-Trace) mg/dL Urine Glucose (UA) Normal (Normal) mg/dL - ABG Interpretation ABG results: PT/INR, D-dimer D-Dimer 447 ng/mLFEU (0-500) 08/14/18 15:52 Consult Discharge Plan - Plan [facility]errals: [facility] [Primary Care Provider] - <Joshua David - Last Filed: 08/16/18 18:52> Hospitalist Progress Note - Encounter Date of Encounter: 08/16/18 - Exam Vitals: Temp Pulse Resp BP Pulse Ox 98.5 F 65 18 106/67 93 08/16/18 16:58 08/16/18 16:58 08/16/18 16:58 08/16/18 16:58 08/16/18 16:58 - Time Spent with Patient Total time spent is greater than 50% in coordination of care (as documented) at patient's floor/unit and/or counseling patient: Internal Medicine: Result - Labs CBC & Chem 7: 08/16/18 03:47 08/16/18 03:47 Labs: Short CBC 08/16/18 Range/Units 03:47 WBC 6.6 (4.3-11.1) K/mcL Hgb 11.1 L (12.9-16.9) g/dL Hct 35.4 L (37.5-50.1) % Plt Count 263 (140-400) K/mcL Neutrophils # 4.5 (1.6-8.9) K/mcL BMP 08/16/18 03:47 Sodium 139 Potassium 4.0 Chloride 108 H Carbon Dioxide 27 BUN 26 H Creatinine 1.42 H Glucose 97 Calcium 8.4 L - ABG Interpretation ABG results: PT/INR, D-dimer D-Dimer 447 ng/mLFEU (0-500) 08/14/18 15:52 - Impressions Impressions Abdomen Ultrasound 08/14/18 21:00 IMPRESSION: Limited sonographic images of the abdomen does not demonstrate any significant ascites. D/ / 08/14/2018 22:26:27 Alexis Armstrong MD / javier Interpreting Provider: Alexis Armstrong MD - Attending Attestation I examined this patient and my medical decision-making was reviewed with the Resident Physician. I agree with the documented findings, disposition and treatment plan as described except to the extent set forth below. <Nori Mckeon - Last Filed: 08/16/18 16:08> (1) Hypotension Qualifiers: Hypotension type: unspecified hypotension type Qualified Code(s): I95.9 - Hypotension, unspecified (4) CAD (coronary atherosclerotic disease) Qualifiers: Coronary Disease-Associated Artery/Lesion type: [place] artery [place] vs. transplanted heart: [place] heart Associated angina: without angina Qualified Code(s): I25.10 - Atherosclerotic heart disease of [place] coronary artery without angina pectoris (5) Diabetes mellitus Qualifiers: Diabetes mellitus type: type 2 Diabetes mellitus superintendent terminal insulin use: without half-way use Diabetes mellitus complication status: with neurologic complications Diabetes mellitus complication detail: with polyneuropathy Qualified Code(s): E11.42 - Type 2 diabetes mellitus with diabetic polyneuropathy (6) COPD (chronic obstructive pulmonary disease) Qualifiers: Emphysema type: unspecified Qualified Code(s): J43.9 - Emphysema, unspecified (8) Hyperlipidemia Qualifiers: Hyperlipidemia type: unspecified Qualified Code(s): E78.5 - Hyperlipidemia, unspecified (9) CHF (congestive heart failure) Qualifiers: Heart failure type: unspecified Heart failure chronicity: chronic Qualified Code(s): I50.9 - Heart failure, unspecified (10) Atrial fibrillation Qualifiers: Atrial fibrillation type: paroxysmal Qualified Code(s): I48.0 - Paroxysmal atrial fibrillation
[2018-08-16] MEDS: Insulin LISPRO 300 UNITS/3 ML VIAL SQ SCH ×3 (08:29→21:00)
[2018-08-16] MEDS: *HR* Amiodarone 200 MG TABLET PO SCH (08:29)
[2018-08-16] MEDS: Gabapentin 400 MG CAPSULE PO SCH ×2 (08:29→20:23)
[2018-08-16] MEDS: Nystatin POWDER 30 GM BOTTLE TP SCH ×2 (08:39→20:24)
[2018-08-16] MEDS: Budesonide/Formoterol 80/4.5 MDI IH SCH ×2 (10:45→22:06)
[2018-08-16] MEDS: Tiotropium 18 MCG inhalation IH SCH (10:45)
[2018-08-16] MEDS: Furosemide 40 MG TABLET PO SCH (12:20)
[2018-08-16] MEDS ORDERED: *HR* Rivaroxaban 10 MG TABLET PO SCH (17:00)
[2018-08-16] MEDS: Melatonin 3 MG TABLET PO SCH (20:23)
[2018-08-17 04:41] LABS: Basophils # 0.1 K/mcL (0.0-0.2); Basophils % 0.7 %; Eosinophils # 0.2 K/mcL (0.0-0.6); Eosinophils % 3.6 %; Hematocrit 36.2 % (37.5-50.1); Hemoglobin 11.6 g/dL (12.9-16.9); Immature Granulocytes % 0.4 % (0-4); Lymphocytes # 1.2 K/mcL (0.6-4.6); Lymphocytes % 18.1 %; Mean Corpuscular Hemoglobin 26.6 pg (28.0-33.3); Mean Platelet Volume 9.7 fL (9.4-12.4); Monocytes # 0.8 K/mcL (0.0-1.3); Monocytes % 12.5 %; Neutrophils # 4.4 K/mcL (1.6-8.9); Platelet Count 267 K/mcL (140-400); Red Blood Count 4.36 M/mcL (4.19-5.50); Red Cell Distribution Width 17.7 % (11.5-14.5); Segmented Neutrophils % 64.7 %
[2018-08-17 04:50] LABS: BUN/Creatinine Ratio 18 (6-26); Blood Urea Nitrogen 22 mg/dL (8-23); Calcium 9.1 mg/dL (8.6-10.3); Carbon Dioxide 28 mEq/L (23-29); Chloride 107 mEq/L (98-107); Glucose 98 mg/dL (70-105); Osmolality,Calculated 281 (280-300); Potassium 3.8 mEq/L (3.5-5.1); Sodium 134 mEq/L (136-145); eGFR For Non-African Americans > 60 (> 60)
[2018-08-17] MEDS: Budesonide/Formoterol 80/4.5 MDI IH SCH (07:21)
[2018-08-17] MEDS: Tiotropium 18 MCG inhalation IH SCH (07:21)
--- NOTE | 2018-08-17 07:58 | Discharge Summary ---
<Nori Mckeon M - Last Filed: 08/17/18 10:50> - NOTES TO OUTPATIENT PROVIDER Notes to Outpatient Provider: Stop Xanaflex. Monitor blood pressures closely. 2L fluids per day Date of Encounter: 08/17/18 Time of Encounter: 08:40 - Discharge Diagnosis (1) Hypotension Priority: Primary Status: Resolved Assessment and Plan: Unknown etiology, likely due to overdiuresis and dehydration Qualifiers: Hypotension type: unspecified hypotension type Qualified Code(s): I95.9 - Hypotension, unspecified (2) Acute kidney injury superimposed on CKD Priority: Secondary Status: Resolved Assessment and Plan: Likely pre-renal secondary to overdiuresis and dehydration superimposed on CKD (3) Abdominal distension Priority: Secondary Status: Chronic Assessment and Plan: No acute findings on ultrasounds, normal BM, soft, no peritoneal signs, chronic (4) CAD (coronary atherosclerotic disease) Priority: Secondary Status: Chronic Assessment and Plan: Continue home meds Qualifiers: Coronary Disease-Associated Artery/Lesion type: [place] artery [place] vs. transplanted heart: [place] heart Associated angina: without angina Qualified Code(s): I25.10 - Atherosclerotic heart disease of [place] coronary artery without angina pectoris (5) Diabetes mellitus Priority: Secondary Status: Chronic Assessment and Plan: Continue home medications Qualifiers: Diabetes mellitus type: type 2 Diabetes mellitus mcfp insulin use: without long chain beamer use Diabetes mellitus complication status: with neurologic complications Diabetes mellitus complication detail: with polyneuropathy Qualified Code(s): E11.42 - Type 2 diabetes mellitus with diabetic polyneuropathy (6) COPD (chronic obstructive pulmonary disease) Priority: Secondary Status: Chronic Assessment and Plan: Continue home meds Qualifiers: Emphysema type: unspecified Qualified Code(s): J43.9 - Emphysema, unspecified (7) Sick sinus syndrome Priority: Secondary Status: Chronic Assessment and Plan: Pacemaker (8) Hyperlipidemia Priority: Secondary Status: Chronic Assessment and Plan: COntinue home meds Qualifiers: Hyperlipidemia type: unspecified Qualified Code(s): E78.5 - Hyperlipidemia, unspecified (9) CHF (congestive heart failure) Priority: Secondary Status: Chronic Assessment and Plan: Continue home meds Qualifiers: Heart failure type: unspecified Heart failure chronicity: chronic Qualified Code(s): I50.9 - Heart failure, unspecified (10) Atrial fibrillation Priority: Secondary Status: Chronic Assessment and Plan: not in RVR, on xarelto Qualifiers: Atrial fibrillation type: paroxysmal Qualified Code(s): I48.0 - Paroxysmal atrial fibrillation Hospital course: Mr. Issa is a 68 year old male with PMHx of CKD, atrial fibrillation on xarelto, CVA, DM, GERD, CHF with preserved ejection fraction, sick sinus syndrome with pacemaker placement, CAD with recent STEMI of RCA, COPD on 2L O2 per [place], presenting on 08/14/18 to the ER with chief complaint of weakness and hypotension. Home health nurse noted the blood pressure was 50's systolic. In the ER, the patient was given 2L of IV fluids and started on maintenance IV fluids. He also had elevated creatinine above his baseline and admitted or further management and evaluation of hypotension, symptomatic bradycardia, and AG. EKG and troponin showed no acute ischemic changes. He also had a negative d-dimer. He also had low calcium at 8.0 and was given one gram of calcium gluconate. His diuretics and beta brisa was put on hold. Patient continued to have a MAP >65 and was fluid responsive and did not require vasopressors during his admission. He had no acute blood loss anemia, no ACS, no evidence of infection. Hypotension is likely secondary to hypovolemia due to excessive diuresis and causing pre-renal acute kidney injury. Patient also had a urine cortisol of 2.1 at 0400. Less likely hypotension due to adrenal insufficiency. As patient has been fluid responsive, Lasix was resumed yesterday. Patient's systolic blood pressure was 100-110 and patient remained asymptomatic and no longer complaining of weakness. Patient's acute kidney injury also improved and BUN and Creatinine went back to his baseline. Patient was also noted to have abdominal distension and this is likely due to nephrotic syndrome versus NAFLD and no record of paracentesis. LFTs were normal and abdominal ultrasound showed no evidence of ascites and patient had no abdominal pain, and normal bowel movements. The patient is no longer symptomatic and blood pressures improved and stable. His home medications will be resumed. He will be on a fluid restriction of 2L fluids per day. Zanaflex will be discontinued. He will follow up with his PCP early next week. He has a home health nurse. He is medically stable for discharge home and discharge return instructions were given. Discharge discussed with: patient - Time Spent with Patient Total time spent providing and/or coordinating discharge services: - Discharge Medications Home Medications: Amiodarone [Cordarone] 200 mg PO DAILY 04/04/18 [History] Aspirin 81 mg PO DAILY 04/04/18 [History] Cholecalciferol (Vitamin D3) [Vitamin D3] 2,000 unit PO DAILY 04/04/18 [History] DULoxetine [Cymbalta] 30 mg PO DAILY 04/04/18 [History] Finasteride [Proscar] 5 mg PO DAILY 04/04/18 [History] Lubiprostone [Amitiza] 16 mcg PO 0800,1700 04/04/18 [History] Metoprolol XL (24 HR) Succ [Toprol Xl] 12.5 mg PO HS 04/04/18 [History] Pantoprazole Sodium [Protonix] 40 mg PO DAILY@0730 04/04/18 [History] Rivaroxaban [Xarelto] 20 mg PO DAILY@1700 04/04/18 [History] Sennosides/Docusate Sodium [Colace 2-in-1 Tablet] 1 each PO BID PRN 04/04/18 [History] Simethicone [Bicarsim] 80 mg PO TID PRN 04/04/18 [History] Tamsulosin HCl [Flomax] 0.4 mg PO BID 04/04/18 [History] Tiotropium Br/Olodaterol HCl [Stiolto Respimat Inhal [place]] 2 puff IH DAILY 04/24/18 [History] Insulin ASPART [NovoLOG] 0 unit SQ TIDAC 04/25/18 [History] Fluticasone/Salmeterol [Advair 250-50 Diskus] 1 puff IH BID 06/30/18 [History] Gabapentin [Neurontin] 400 mg PO BID 06/30/18 [History] Acetaminophen [Tylenol] 650 mg PO Q6HR PRN 07/26/18 [History] Atorvastatin Calcium [Lipitor] 40 mg PO HS 07/26/18 [History] DiphenhydraMINE [Benadryl] 25 mg PO HS PRN 07/26/18 [History] Oxycodone HCl/Acetaminophen [Percocet 10-325 mg Tablet] 1 tab PO Q8H PRN 07/26/18 [History] Furosemide [Lasix] 20 mg PO BID 08/09/18 [History] Potassium Chloride 20 meq PO TIDWM 08/09/18 [History] Allergies/Adverse Reactions: Allergy/AdvReac Type Severity Reaction Status Date / Time IVP DYE Allergy Severe Anaphylaxis Uncoded 08/14/18 15:58 Date of admission: 08/14/18 22:35 Primary care physician: PCP [place] Discharging clinician: Nori Mckeon Anticipated date of discharge: 08/17/18 - Constitutional Vitals: Temp Pulse Resp BP Pulse Ox 98.6 F 65 19 110/67 92 08/17/18 04:06 08/17/18 04:06 08/17/18 04:06 08/17/18 04:06 08/17/18 04:06 Exam: General: alert, in no acute distress, sitting up in bed and eating breakfast Head: normocephalic, atraumatic Eyes: normal conjunctiva, no scleral icterus ENT: oral mucosa moist Neck: trachea midline Cardio: regular rate and rhythm Lungs: clear to auscultation bilaterally, no rales, rhonchi, no wheezing Abdomen: soft, nontender, normal bowel sounds, no peritoneal signs Extremities: BLE swelling improving, mild edema, non pitting, normal capillary refill Neuro: A&Ox3, CN II-XII intact Psych: normal affect and mood Skin: warm, dry, intact - Patient Status Disposition: Home, Self-Care Condition: Fair Functional capacity at discharge: uses cane/walker Overall status at discharge: patient is progressing back to baseline - Discharge Instructions Instructions: Heart Failure (DC), Hypotension (DC) Follow Up With: REINA,PCP [Primary Care Provider] - 08/24/18 10:45 am (Red Team) Additional Instructions: Stop taking Zanaflex. You should drink 2 liters of fluid a day Take the Lasix 20mg twice a day. Make sure you are wearing compression stockings and elevating your feet when laying down or sitting down. You should call your primary care physician this afternoon to make a folllwup appointment early next week Follow a salt restricted diet. Make sure you are ambulating with a cane or walker daily. - Diet and Activity Activity: ambulate only with your walker, increase activity as tolerated Diet: low salt diet <Joshua David - Last Filed: 08/17/18 22:26> Date of Encounter: 08/17/18 Hospital course: Mr. Issa is a 68 year old male - Time Spent with Patient Total time spent providing and/or coordinating discharge services: Date of admission: 08/14/18 22:35 Primary care physician: [facility] - Constitutional Vitals: Temp Pulse Resp BP Pulse Ox 98.4 F 68 18 110/69 93 08/17/18 11:39 08/17/18 11:39 08/17/18 11:39 08/17/18 11:39 08/17/18 11:39 - Attending Attestation I examined this patient and my medical decision-making was reviewed with the Resident Physician. I agree with the documented findings, disposition and treatment plan as described except to the extent set forth below. Patient should have repeat CBC and BMP in one week. Blood cultures no growth today. There is concern that he may be taking Lasix in additional dose, since every admission, we see that he tolerates all dose given. We discussed medicaiton compliance. Time spent with discharge 40 min
[2018-08-17] MEDS: Insulin LISPRO 300 UNITS/3 ML VIAL SQ SCH (09:50)
[2018-08-17] MEDS: Furosemide 40 MG TABLET PO SCH (09:50)
[2018-08-17] MEDS: Gabapentin 400 MG CAPSULE PO SCH (09:50)
[2018-08-17] MEDS: *HR* Amiodarone 200 MG TABLET PO SCH (09:51)
[2018-08-17] MEDS: Nystatin POWDER 30 GM BOTTLE TP SCH (09:51)
[2018-08-17 11:40] VITALS: BP 110/69
--- NOTE | 2018-08-17 11:48 | Physician Discharge Referral ---
Home Health/Hosp Referral Info Transfer to: Home Health Attending Provider: Dr. David Provider in Charge Post Discharge: PCP - Diagnosis (1) Hypotension Priority: Primary Status: Resolved (2) Acute kidney injury superimposed on CKD Priority: Secondary Status: Resolved (3) Abdominal distension Priority: Secondary Status: Chronic (4) CAD (coronary atherosclerotic disease) Priority: Secondary Status: Chronic (5) Diabetes mellitus Priority: Secondary Status: Chronic (6) COPD (chronic obstructive pulmonary disease) Priority: Secondary Status: Chronic (7) Sick sinus syndrome Priority: Secondary Status: Chronic (8) Hyperlipidemia Priority: Secondary Status: Chronic (9) CHF (congestive heart failure) Priority: Secondary Status: Chronic (10) Atrial fibrillation Priority: Secondary Status: Chronic - Respiratory Orders Oxygen / L per min (2L O2 per [place] prn) Smoking Cessation: Smoking cessation has been advised. For more information, call the [place] Tobacco Quit Line at 0-889-URQG-NOW. - Diet/Nutrition Diet/Nutrition Orders: No Added Salt (SERGIO) - Activity Activity Orders: Ambulate, Walker - Services Needed Following services are medically necessary services: Nursing, Home Health Aide - Transfer Medications Home Medications: Amiodarone [Cordarone] 200 mg PO DAILY 04/04/18 [History] Aspirin 81 mg PO DAILY 04/04/18 [History] Cholecalciferol (Vitamin D3) [Vitamin D3] 2,000 unit PO DAILY 04/04/18 [History] DULoxetine [Cymbalta] 30 mg PO DAILY 04/04/18 [History] Finasteride [Proscar] 5 mg PO DAILY 04/04/18 [History] Lubiprostone [Amitiza] 16 mcg PO 0800,1700 04/04/18 [History] Metoprolol XL (24 HR) Succ [Toprol Xl] 12.5 mg PO HS 04/04/18 [History] Pantoprazole Sodium [Protonix] 40 mg PO DAILY@0730 04/04/18 [History] Rivaroxaban [Xarelto] 20 mg PO DAILY@1700 04/04/18 [History] Sennosides/Docusate Sodium [Colace 2-in-1 Tablet] 1 each PO BID PRN 04/04/18 [History] Simethicone [Bicarsim] 80 mg PO TID PRN 04/04/18 [History] Tamsulosin HCl [Flomax] 0.4 mg PO BID 04/04/18 [History] Tiotropium Br/Olodaterol HCl [Stiolto Respimat Inhal [place]] 2 puff IH DAILY 04/24/18 [History] Insulin ASPART [NovoLOG] 0 unit SQ TIDAC 04/25/18 [History] Fluticasone/Salmeterol [Advair 250-50 Diskus] 1 puff IH BID 06/30/18 [History] Gabapentin [Neurontin] 400 mg PO BID 06/30/18 [History] Acetaminophen [Tylenol] 650 mg PO Q6HR PRN 07/26/18 [History] Atorvastatin Calcium [Lipitor] 40 mg PO HS 07/26/18 [History] DiphenhydraMINE [Benadryl] 25 mg PO HS PRN 07/26/18 [History] Oxycodone HCl/Acetaminophen [Percocet 10-325 mg Tablet] 1 tab PO Q8H PRN 07/26/18 [History] Furosemide [Lasix] 20 mg PO BID 08/09/18 [History] Potassium Chloride 20 meq PO TIDWM 08/09/18 [History] Allergies/Adverse Reactions: Allergy/AdvReac Type Severity Reaction Status Date / Time IVP DYE Allergy Severe Anaphylaxis Uncoded 08/14/18 15:58 Certification: Further, I certify that my clinical findings support that this patient is homebound (i.e. absences from home require considerable and taxing effort and are for medical reasons or jew services or infrequently or short duration when for other reasons) because: Homebound Reason: Severity of cardiac or pulmonary status limits activity tolerance Attestation: My signature below is to certify that this patient is under my care and that I, or nurse practitioner, or a physician's assistant sales director working with me, has a [id number] encounter with this patient.
== END 2018-08-17 12:31 | disposition home or self-care (01) | DRG 312 ==
LOC: ICNU 15:39 → EMEROOARM 15:39 → SUATTDRO 22:35 → ICNU 22:40 → 2ANU 08-15 19:37
PROVIDERS: ADMIT Internal Medicine; ATTEND Student in an Organized Health Care Education/Training Program

== ENCOUNTER 2018-09-16 01:08 | Inpatient (IN) ==
[2018-09-16] MEDS ORDERED: 0.9 % Sodium Chloride 500 ML IVC ONE (01:28)
--- NOTE | 2018-09-16 01:39 | Emergency Department Note ---
Disposition Clinical Impression: Acute kidney injury superimposed on chronic kidney disease, Hyperkalemia, Generalized weakness Hypotension Qualifiers: Hypotension type: unspecified hypotension type Qualified Code(s): I95.9 - Hypotension, unspecified Disposition: Admitted As Inpatient Condition: Fair Referrals: NONE,PCP [Primary Care Provider] - Forms: ED Satisfaction Letter, Work/School Release Time of Disposition: 05:25 General Adult HPI - General Chief complaint: ED General Medical Stated complaint: hypotension Time Seen by Provider: 09/16/18 01:23 Source: patient, family (), EMS Mode of arrival: EMS Limitations: altered mental status Nursing Notes Reviewed: Yes Vital Signs Reviewed: Yes - History of Present Illness HPI Narrative: 68-year-old male history of hypertension in chronic kidney disease presents to the emergency department via EMS for hypotension. Today his systolic blood pressure has been anywhere from 40 to 60. He has a similar history of this approx a few weeks ago requiring admission. He was found that his kidneys were failing. His antihypertensive medications have been held. He denies any chest pain or shortness of breath. reports some confusion and noted weakness. No reports or fever cough or congestion. He is not on dialysis. Patient's been so we he cannot lift his head up. Denies any headache. Denies any urinary symptoms. Concern for possible sepsis v kidney failure. Septic workup initiated including the CT of the head. Patient has received 1 L normal saline by squad will give him additional 500 cc. Pain Scale: 7 - Related Data Home Medications Medication Instructions Recorded Confirmed Amiodarone [Cordarone] 200 mg PO DAILY 04/04/18 08/27/18 Aspirin 81 mg PO DAILY 04/04/18 08/27/18 DULoxetine [Cymbalta] 30 mg PO DAILY 04/04/18 08/27/18 Finasteride [Proscar] 5 mg PO DAILY 04/04/18 08/27/18 Lubiprostone [Amitiza] 16 mcg PO BIDWM 04/04/18 08/27/18 Pantoprazole Sodium [Protonix] 40 mg PO DAILY@0730 04/04/18 08/27/18 Rivaroxaban [Xarelto] 20 mg PO DAILY 04/04/18 08/27/18 Tamsulosin HCl [Flomax] 0.4 mg PO BID 04/04/18 08/27/18 Tiotropium Br/Olodaterol HCl 2 puff IH DAILY 04/24/18 08/27/18 [Stiolto Respimat Inhal Shock] Insulin ASPART [NovoLOG] 0 unit SQ TIDAC 04/25/18 08/27/18 Fluticasone/Salmeterol [Advair 1 puff IH BID 06/30/18 08/27/18 250-50 Diskus] Gabapentin [Neurontin] 400 mg PO BID 06/30/18 08/27/18 Acetaminophen [Tylenol] 650 mg PO Q6HR PRN 07/26/18 08/27/18 Atorvastatin Calcium [Lipitor] 40 mg PO DAILY 07/26/18 08/27/18 DiphenhydraMINE [Benadryl] 25 mg PO HS PRN 07/26/18 08/27/18 Oxycodone HCl/Acetaminophen 1 tab PO Q8H PRN 07/26/18 08/27/18 [Percocet 10-325 mg Tablet] Furosemide [Lasix] 20 mg PO DAILY 08/09/18 08/27/18 Melatonin 9 mg PO HS 08/26/18 08/26/18 Capsaicin [High Potency Capsaicin] 1 appl TP QID PRN 08/27/18 08/27/18 Carboxymethylcellulose Sodium 1 drop BOTH EYES TID 08/27/18 08/27/18 [Refresh Liquigel] Cholecalciferol (Vitamin D3) 2,000 unit PO DAILY 08/27/18 08/27/18 [Vitamin D3] Metoprolol Succinate [Toprol Xl] 12.5 mg PO DAILY 08/27/18 08/27/18 NALOXONE 4 MG Nasal Shock [Narcan] 4 mg NS AD 08/27/18 08/27/18 Polyethylene Glycol 3350 17 gm PO DAILY PRN 08/27/18 08/27/18 [Natura-Lax] Potassium Chloride [Klor-Con 10] 40 meq PO DAILY 08/27/18 08/27/18 Saline Nasal Shock [[place] Nasal 2 spray NS Q2H PRN 08/27/18 08/27/18 Shock] Sennosides/Docusate Sodium 1 tab PO BID PRN 08/27/18 08/27/18 [Docusate Sodium-Sennosides Tab] Simethicone [Gas-X] 80 mg PO TID PRN 08/27/18 08/27/18 Trazodone HCl 200 mg PO HS 08/27/18 08/27/18 metOLazone [Zaroxolyn] 5 mg PO AD PRN 08/27/18 Allergies Allergy/AdvReac Type Severity Reaction Status Date / Time IVP DYE Allergy Severe Anaphylaxis Uncoded 08/14/18 15:58 All systems ED: reviewed and negative except as stated. Review of Systems: As Per HPI Constitutional: Reports: weakness. Denies: fever, chills ENT ED: Denies: congestion Cardiovascular: Denies: chest pain Respiratory: Denies: cough, dyspnea Gastrointestinal: Denies: abdominal pain, nausea, vomiting Genitourinary: Denies: dysuria Musculoskeletal: Reports: back pain, neck pain Integumentary: Denies: rash, abrasion Neurological: Reports: weakness, confusion. Denies: headache Past Medical History - Past Medical History Attestation: Yes The following information was validated with the patient. Source: patient, obtained from family Medical history: Reports: arthritis, atrial fibrillation, CHF, COPD, coronary artery disease, CVA, diabetes, GERD, hyperlipidemia, hypertension, pulmonary embolus, renal disease, other Surgical history: Reports: cholecystectomy, herniorrhaphy, knee replacement, orthopedic, other, pacemaker/AICD Psychiatric history: Reports: anxiety, depression, panic disorder, PTSD, previous psychiatric hospitalization - Social History Smoking Status: Former smoker Smokeless Tobacco Status: No Alcohol use: Reports: none Drug use: Reports: none Physical Exam - General Limitations: no limitations General appearance: alert, in no apparent distress, other (Somnolent but usually arousable) - Head Head exam: atraumatic, normocephalic, normal inspection - Eye Eye exam: Present: normal appearance, PERRL, EOMI - ENT ENT exam: normal exam, normal oropharynx, mucous membranes moist - Neck Neck exam: Present: normal inspection, full ROM, trachea midline, tenderness - Chest Chest inspection: Present: normal inspection, symmetric chest wall rise. Absent: tenderness - Respiratory Respiratory exam: Present: normal lung sounds bilaterally - Cardiovascular Cardiovascular exam: Present: regular rate, normal rhythm, normal heart sounds. Absent: systolic murmur, diastolic murmur - Expanded Cardiovascular Exam Peripheral pulses: 2+: radial (R), radial (L) - Abdominal Exam Abdominal exam: Present: soft (Obese), Non-Tender, normal bowel sounds. Absent: tenderness, distention, guarding, rebound, rigidity - Extremities Exam Extremities exam: Present: normal inspection, full ROM, pedal edema (+1 bilateral). Absent: tenderness - Neurological Exam Neurological exam: Present: alert, oriented X3 - Expanded Neurological Exam Patient oriented to: Present: person, place. Absent: time Cranial nerves: EOM function (II, III, IV, ): Normal, facial sensation (V): Normal, facial palsy (VII): Normal, tongue deviation (XII): Normal Motor strength - LUE: 5/5 Motor strength - RUE: 5/5 Motor strength - LLE: 5/5 Motor strength - RLE: 5/5 Coma Scale Eye Opening: Spontaneous Coma Scale Motor Response: Obeys Commands Coma Scale Verbal Response: Oriented Coma Scale Total: 15 - Psychiatric Psychiatric exam: Present: normal mood, flat affect - Skin Skin exam: Present: warm, dry, intact, normal color Course Course Narrative: Patient presents persistently hypotensive. History of similar a few weeks ago. Despite systolic blood pressure in the mid 60s he remains awake and alert and asymptomatic. Concern for sepsis, workup initiated. states he has some worsening weakness greater than baseline, history of CVA. Patient will likely require admission. Will be cautious with fluid hydration given his history of chronic kidney disease. He has Conor received 1 L normal saline by EMS. - Reevaluation(s) Reevaluation #1: CT scan of the head is unremarkable. Review of his CBC he has baseline anemia that is stable. Review of his chemistry, hyperkalemia 5.7 the highest it has ever been. He is also uremic BUN 80. His creatinine is also elevated at 4.6. It had improved on his prior admission and has nearly doubled. His symptoms are likely secondary to his kidney failure. Will treat his hyperkalemia at this time. We are waiting for a urine sample and deferring catheterization. His chest x-ray did show some fluid congestion and we will be cautious with his hydration. Patient will require admission. His glazier artist is Dr. Wynn. Time: 05:19 - Consultations Consultation #1: Spoke to on-call glazier artist Dr. Wynn who is very familiar with the patient. He typically goes between fluid overload and dehydration from diuretics. Typically responsive to IVF bolus. He has received multiple boluses here with highest SBP 75. At this time agrees with placement of CVC and giving Levophed. Time: 05:35 Consultation #2: Central line was successfully placed in the right internal jugular vein. Patient admitted to intensive care unit accepted by Dr. Carney for continued pressure support for his hypotension and AG with hyperkalemia. Recommendation to send a random cortisol level. Time: 07:04 Vital Signs Temperature 97.5 F L 09/16/18 01:12 Pulse Rate 69 09/16/18 01:12 Respiratory Rate 18 09/16/18 01:12 Blood Pressure 65/45 09/16/18 01:12 O2 Sat by Pulse Oximetry 98 09/16/18 01:12 Temperature 97.5 F L 09/16/18 01:12 Pulse Rate 63 09/16/18 06:38 Respiratory Rate 18 09/16/18 06:38 Blood Pressure 84/53 09/16/18 06:38 O2 Sat by Pulse Oximetry 100 09/16/18 06:38 Oxygen Delivery Oxygen Delivery Room Air Procedures - Central Line Placement Right IJ Central Line Inserted*: Yes Central Line Insertion: emergent Consent Obtained: written consent Procedural Pause: verify patient name and date of , timeout performed per policy, jose and assess the site, assemble equipment and verify supplies, perform hand hygiene Patient Placed on Monitor/Pulse Ox: Yes During the Procedure: clinician is wearing sterile gloves, cap, mask,& gown during insertion, sterile field and sterile technique are maintained, patient's face is covered with drape or mask and wearing a cap, everyone in room is wearing a mask Central Line Prep: Chlorhexidine scrub Prep the Procedure Site: apply chloraprep to the skin using a back and forth scrubbing motion, apply chloraprep for 30 seconds (upper body), 1-2 min (femoral sites), allow prep to dry, drape the patient with a full body drape Local Anesthetic: lidocaine 1% Amount of anesthesia used (mL): 2 Ultrasound Used for Placement: Yes Central Line Lumen Inserted: triple Post Procedure: sutured in place, good blood return, all ports aspirated, flushed, capped, sterile dressing applied, guide wire removed and visualized, dressing is dated Post Procedure X-Ray: tip of catheter in good position, no pneumothorax seen Patient Tolerated Procedure: well, no complications Complications: none Name of Clinician Inserting Central Line: Marito Freeman DO Clinician Assisting/Completing Checklist: Dr. Rodriguez Date: 09/16/18 Time: 07:07 Medical Decision Making - MDM Narrative Medical decision making narrative: Patient was discussed with my attending physician who agrees with ED management and final disposition. They independently evaluated the patient. Please refer to their attestation to this encounter for additional information. This note was generated by [employer] voice recognition software and as a result grammatical or spelling errors may occur using this program. - Medical Records Medical records reviewed: Yes I reviewed the patient's medical records. - Lab Data Lab results reviewed: Yes I reviewed the patient's lab results. Result diagrams: 09/16/18 02:55 09/16/18 02:55 Lab Results 09/16/18 09/16/18 09/16/18 Range/Units 02:55 02:55 02:55 WBC 8.0 (4.3-11.1) K/mcL RBC 4.23 (4.19-5.50) M/mcL Hgb 11.5 L (12.9-16.9) g/dL Hct 36.9 L (37.5-50.1) % MCV 87.2 (83.0-100.0) fL MCH 27.2 L (28.0-33.3) pg MCHC 31.2 L (31.6-35.5) g/dL RDW 18.3 H (11.5-14.5) % Plt Count 221 (140-400) K/mcL MPV 10.3 (9.4-12.4) fL Immature Gran % 0.6 (0-4) % Seg Neutrophils % 62.5 % Lymphocytes % 17.3 % Monocytes % 13.5 % Eosinophils % 5.2 % Basophils % 0.9 % Neutrophils # 5.0 (1.6-8.9) K/mcL Lymphocytes # 1.4 (0.6-4.6) K/mcL Monocytes # 1.1 (0.0-1.3) K/mcL Eosinophils # 0.4 (0.0-0.6) K/mcL Basophils # 0.1 (0.0-0.2) K/mcL PT 30.1 H (9.4-12.1) Seconds INR 2.7 APTT 43.0 H (26.0-36.0) Seconds Sodium 131 L (136-145) mEq/L Potassium 5.7 H (3.5-5.1) mEq/L Chloride 99 (98-107) mEq/L Carbon Dioxide 25 (23-29) mEq/L BUN 84 H (8-23) mg/dL Creatinine 4.65 H (0.70-1.30) mg/dL Est GFR ( Amer) 15 L (> 60) Est GFR (Non-Af Amer) 13 L (> 60) BUN/Creatinine Ratio 18 (6-26) Glucose 93 (70-105) mg/dL Calculated Osmolality 297 (280-300) Lactic Acid (0.5-2.2) mmol/L Calcium 8.3 L (8.6-10.3) mg/dL Phosphorus 5.3 H (2.7-4.5) mg/dL Magnesium 2.0 (1.6-2.6) mg/dL Total Bilirubin 0.4 (0.3-1.0) mg/dL Direct Bilirubin 0.1 (0.0-0.2) mg/dL Indirect Bilirubin 0.3 (0.0-1.2) mg/dL AST 13 (13-39) Units/L ALT 17 (7-52) Units/L Alkaline Phosphatase 75 (34-104) Units/L Troponin I < 0.03 (< 0.04) ng/mL Serum Total Protein 5.7 L (6.4-8.9) g/dL Albumin 3.3 L (3.5-5.7) g/dL Globulin 2.4 (2.4-3.5) g/dL Albumin/Globulin Ratio 1.4 (1.1-2.2) Urine Color (Yellow) Urine Clarity (Clear) Urine pH (5.0-8.0) pH Units Ur Specific Wheeler (1.010-1.025) Urine Protein (Neg-Trace) mg/dL Urine Glucose (UA) (Normal) mg/dL Urine Ketones (Negative) mg/dL Urine Blood (Negative) Urine Nitrite (Negative) Urine Bilirubin (Negative) Urine Urobilinogen (Normal) mg/dL Ur Leukocyte Esterase (Negative) Ur Culture Indicated? (NO) 09/16/18 09/16/18 Range/Units 02:55 05:13 WBC (4.3-11.1) K/mcL RBC (4.19-5.50) M/mcL Hgb (12.9-16.9) g/dL Hct (37.5-50.1) % MCV (83.0-100.0) fL MCH (28.0-33.3) pg MCHC (31.6-35.5) g/dL RDW (11.5-14.5) % Plt Count (140-400) K/mcL MPV (9.4-12.4) fL Immature Gran % (0-4) % Seg Neutrophils % % Lymphocytes % % Monocytes % % Eosinophils % % Basophils % % Neutrophils # (1.6-8.9) K/mcL Lymphocytes # (0.6-4.6) K/mcL Monocytes # (0.0-1.3) K/mcL Eosinophils # (0.0-0.6) K/mcL Basophils # (0.0-0.2) K/mcL PT (9.4-12.1) Seconds INR APTT (26.0-36.0) Seconds Sodium (136-145) mEq/L Potassium (3.5-5.1) mEq/L Chloride (98-107) mEq/L Carbon Dioxide (23-29) mEq/L BUN (8-23) mg/dL Creatinine (0.70-1.30) mg/dL Est GFR ( Amer) (> 60) Est GFR (Non-Af Amer) (> 60) BUN/Creatinine Ratio (6-26) Glucose (70-105) mg/dL Calculated Osmolality (280-300) Lactic Acid 0.7 (0.5-2.2) mmol/L Calcium (8.6-10.3) mg/dL Phosphorus (2.7-4.5) mg/dL Magnesium (1.6-2.6) mg/dL Total Bilirubin (0.3-1.0) mg/dL Direct Bilirubin (0.0-0.2) mg/dL Indirect Bilirubin (0.0-1.2) mg/dL AST (13-39) Units/L ALT (7-52) Units/L Alkaline Phosphatase (34-104) Units/L Troponin I (< 0.04) ng/mL Serum Total Protein (6.4-8.9) g/dL Albumin (3.5-5.7) g/dL Globulin (2.4-3.5) g/dL Albumin/Globulin Ratio (1.1-2.2) Urine Color Yellow (Yellow) Urine Clarity Clear (Clear) Urine pH 5.5 (5.0-8.0) pH Units Ur Specific Wheeler 1.015 (1.010-1.025) Urine Protein Negative (Neg-Trace) mg/dL Urine Glucose (UA) Normal (Normal) mg/dL Urine Ketones Negative (Negative) mg/dL Urine Blood Negative (Negative) Urine Nitrite Negative (Negative) Urine Bilirubin Negative (Negative) Urine Urobilinogen Normal (Normal) mg/dL Ur Leukocyte Esterase Negative (Negative) Ur Culture Indicated? NO (NO) - Radiology Data Radiology results reviewed: Yes I reviewed the patient's radiology results. Chest X-Ray 09/16/18 01:28 IMPRESSION: 1. Findings typical of mild congestive heart failure. 2. Calcific atherosclerosis aorta. 3. Cardiomegaly. D/ / Partha Ro / Partha Ro Interpreting Provider: Partha Ro Head CT 09/16/18 01:28 IMPRESSION: No acute intracranial abnormality. D/ / Dax Epstein / Dax Epstein Interpreting Provider: Dax Epstein - EKG Data EKG #1 EKG attestation: Yes I reviewed and interpreted this EKG. EKG results narrative: EKG performed 0113 atrial paced rhythm 64 beats per minute, Q waves seen in the inferior leads with minimal ST elevation similar to prior EKG performed 08/25/2018. No acute ischemic changes.
[2018-09-16 03:09] LABS: Basophils # 0.1 K/mcL (0.0-0.2); Basophils % 0.9 %; Eosinophils # 0.4 K/mcL (0.0-0.6); Eosinophils % 5.2 %; Hematocrit 36.9 % (37.5-50.1); Hemoglobin 11.5 g/dL (12.9-16.9); Immature Granulocytes % 0.6 % (0-4); Lymphocytes # 1.4 K/mcL (0.6-4.6); Lymphocytes % 17.3 %; Mean Corpuscular HGB Conc 31.2 g/dL (31.6-35.5); Mean Corpuscular Hemoglobin 27.2 pg (28.0-33.3); Mean Corpuscular Volume 87.2 fL (83.0-100.0); Mean Platelet Volume 10.3 fL (9.4-12.4); Monocytes # 1.1 K/mcL (0.0-1.3); Monocytes % 13.5 %; Platelet Count 221 K/mcL (140-400); Red Blood Count 4.23 M/mcL (4.19-5.50); Red Cell Distribution Width 18.3 % (11.5-14.5); Segmented Neutrophils % 62.5 %
[2018-09-16 03:16] LABS: INR 2.7; Prothrombin Time 30.1 Seconds (9.4-12.1)
[2018-09-16 03:30] LABS: Alanine Aminotransferase 17 Units/L (7-52); Albumin 3.3 g/dL (3.5-5.7); Albumin/Globulin Ratio 1.4 (1.1-2.2); Alkaline Phosphatase 75 Units/L (34-104); Aspartate Amino Transferase 13 Units/L (13-39); BUN/Creatinine Ratio 18 (6-26); Bilirubin,Direct 0.1 mg/dL (0.0-0.2); Bilirubin,Indirect 0.3 mg/dL (0.0-1.2); Bilirubin,Total 0.4 mg/dL (0.3-1.0); Blood Urea Nitrogen 84 mg/dL (8-23); Calcium 8.3 mg/dL (8.6-10.3); Carbon Dioxide 25 mEq/L (23-29); Chloride 99 mEq/L (98-107); Globulin 2.4 g/dL (2.4-3.5); Glucose 93 mg/dL (70-105); Osmolality,Calculated 297 (280-300); Phosphorous 5.3 mg/dL (2.7-4.5); Potassium 5.7 mEq/L (3.5-5.1); Sodium 131 mEq/L (136-145); Total Protein 5.7 g/dL (6.4-8.9); eGFR For Non-African Americans 13 (> 60)
[2018-09-16 03:31] LABS: Troponin I < 0.03 ng/mL (< 0.04)
[2018-09-16] MEDS ORDERED: Insulin Human Regular 10 UNIT in 0.9 % Sodium Chloride 10 ML IV ONE (04:21)
[2018-09-16] MEDS ORDERED: Albuterol 2.5 MG/3 ML NEBULIZER IH ONE (04:21)
[2018-09-16] MEDS ORDERED: *HR* Dextrose 50 % in Water (Syg) 50 ML SYRINGE IVP ONE (04:21)
[2018-09-16] MEDS ORDERED: Sodium Bicarbonate 50 MEQ/50 ML VIAL IVP ONE (04:21)
[2018-09-16 05:26] LABS: Bilirubin,Urine Negative (Negative); Blood,Urine Negative (Negative); Clarity,Urine Clear (Clear); Color,Urine Yellow (Yellow); Glucose,Urine (UA) Normal (Normal); Ketones,Urine Negative (Negative); Leukocyte Esterase,Urine Negative (Negative); Nitrite,Urine Negative (Negative); PH,Urine 5.5 pH Units (5.0-8.0); Protein,Urine Negative (Neg-Trace); Specific Gravity,Urine 1.015 (1.010-1.025); Urobilinogen,Urine Normal (Normal)
--- NOTE | 2018-09-16 06:13 | Emergency Department Note ---
Disposition Clinical Impression: Acute kidney injury superimposed on chronic kidney disease, Hyperkalemia, Generalized weakness Hypotension Qualifiers: Hypotension type: unspecified hypotension type Qualified Code(s): I95.9 - Hypotension, unspecified Disposition: Admitted As Inpatient Condition: Fair General Adult HPI - General Chief complaint: ED General Medical Stated complaint: hypotension Time Seen by Provider: 09/16/18 01:23 Source: patient, family (), EMS Mode of arrival: EMS Limitations: no limitations Nursing Notes Reviewed: Yes Vital Signs Reviewed: Yes - History of Present Illness Pain Scale: 7 - Related Data Home Medications Medication Instructions Recorded Confirmed Amiodarone [Cordarone] 200 mg PO DAILY 04/04/18 08/27/18 Aspirin 81 mg PO DAILY 04/04/18 08/27/18 DULoxetine [Cymbalta] 30 mg PO DAILY 04/04/18 08/27/18 Finasteride [Proscar] 5 mg PO DAILY 04/04/18 08/27/18 Lubiprostone [Amitiza] 16 mcg PO BIDWM 04/04/18 08/27/18 Pantoprazole Sodium [Protonix] 40 mg PO DAILY@0730 04/04/18 08/27/18 Rivaroxaban [Xarelto] 20 mg PO DAILY 04/04/18 08/27/18 Tamsulosin HCl [Flomax] 0.4 mg PO BID 04/04/18 08/27/18 Tiotropium Br/Olodaterol HCl 2 puff IH DAILY 04/24/18 08/27/18 [Stiolto Respimat Inhal [place]] Insulin ASPART [NovoLOG] 0 unit SQ TIDAC 04/25/18 08/27/18 Fluticasone/Salmeterol [Advair 1 puff IH BID 06/30/18 08/27/18 250-50 Diskus] Gabapentin [Neurontin] 400 mg PO BID 06/30/18 08/27/18 Acetaminophen [Tylenol] 650 mg PO Q6HR PRN 07/26/18 08/27/18 Atorvastatin Calcium [Lipitor] 40 mg PO DAILY 07/26/18 08/27/18 DiphenhydraMINE [Benadryl] 25 mg PO HS PRN 07/26/18 08/27/18 Oxycodone HCl/Acetaminophen 1 tab PO Q8H PRN 07/26/18 08/27/18 [Percocet 10-325 mg Tablet] Furosemide [Lasix] 20 mg PO DAILY 08/09/18 08/27/18 Melatonin 9 mg PO HS 08/26/18 08/26/18 Capsaicin [High Potency Capsaicin] 1 appl TP QID PRN 08/27/18 08/27/18 Carboxymethylcellulose Sodium 1 drop BOTH EYES TID 08/27/18 08/27/18 [Refresh Liquigel] Cholecalciferol (Vitamin D3) 2,000 unit PO DAILY 08/27/18 08/27/18 [Vitamin D3] Metoprolol Succinate [Toprol Xl] 12.5 mg PO DAILY 08/27/18 08/27/18 NALOXONE 4 MG Nasal [place] [Narcan] 4 mg NS AD 08/27/18 08/27/18 Polyethylene Glycol 3350 17 gm PO DAILY PRN 08/27/18 08/27/18 [Natura-Lax] Potassium Chloride [Klor-Con 10] 40 meq PO DAILY 08/27/18 08/27/18 Saline Nasal [place] [Placer Nasal 2 spray NS Q2H PRN 08/27/18 08/27/18 [place]] Sennosides/Docusate Sodium 1 tab PO BID PRN 08/27/18 08/27/18 [Docusate Sodium-Sennosides Tab] Simethicone [Gas-X] 80 mg PO TID PRN 08/27/18 08/27/18 Trazodone HCl 200 mg PO HS 08/27/18 08/27/18 metOLazone [Zaroxolyn] 5 mg PO AD PRN 08/27/18 Allergies Allergy/AdvReac Type Severity Reaction Status Date / Time IVP DYE Allergy Severe Anaphylaxis Uncoded 08/14/18 15:58 Constitutional: Reports: weakness. Denies: fever, chills ENT ED: Denies: congestion Cardiovascular: Denies: chest pain Respiratory: Denies: cough, dyspnea Gastrointestinal: Denies: abdominal pain, nausea, vomiting Genitourinary: Denies: dysuria Musculoskeletal: Reports: back pain, neck pain Integumentary: Denies: rash, abrasion Neurological: Reports: weakness, confusion. Denies: headache Past Medical History - Past Medical History Medical history: Reports: arthritis, atrial fibrillation, CHF, COPD, coronary artery disease, CVA, diabetes, GERD, hyperlipidemia, hypertension, pulmonary embolus, renal disease, other Surgical history: Reports: cholecystectomy, herniorrhaphy, knee replacement, orthopedic, other, pacemaker/AICD Psychiatric history: Reports: anxiety, depression, panic disorder, PTSD, previous psychiatric hospitalization - Social History Smoking Status: Former smoker Smokeless Tobacco Status: No Alcohol use: Reports: none Drug use: Reports: none Physical Exam - General Limitations: no limitations General appearance: alert, in no apparent distress, other (Somnolent but usually arousable) Course Vital Signs Temperature 97.5 F L 09/16/18 01:12 Pulse Rate 69 09/16/18 01:12 Respiratory Rate 18 09/16/18 01:12 Blood Pressure 65/45 09/16/18 01:12 O2 Sat by Pulse Oximetry 98 09/16/18 01:12 Temperature 97.5 F L 09/16/18 01:12 Pulse Rate 69 09/16/18 07:29 Respiratory Rate 20 09/16/18 07:29 Blood Pressure 87/63 09/16/18 07:29 O2 Sat by Pulse Oximetry 99 09/16/18 07:29 Oxygen Delivery Oxygen Delivery Room Air Medical Decision Making - Medical Records Medical records reviewed: Yes I reviewed the patient's medical records. - Lab Data Lab results reviewed: Yes I reviewed the patient's lab results. Result diagrams: 09/16/18 02:55 09/16/18 02:55 Lab Results 09/16/18 09/16/18 09/16/18 Range/Units 02:55 02:55 02:55 WBC 8.0 (4.3-11.1) K/mcL RBC 4.23 (4.19-5.50) M/mcL Hgb 11.5 L (12.9-16.9) g/dL Hct 36.9 L (37.5-50.1) % MCV 87.2 (83.0-100.0) fL MCH 27.2 L (28.0-33.3) pg MCHC 31.2 L (31.6-35.5) g/dL RDW 18.3 H (11.5-14.5) % Plt Count 221 (140-400) K/mcL MPV 10.3 (9.4-12.4) fL Immature Gran % 0.6 (0-4) % Seg Neutrophils % 62.5 % Lymphocytes % 17.3 % Monocytes % 13.5 % Eosinophils % 5.2 % Basophils % 0.9 % Neutrophils # 5.0 (1.6-8.9) K/mcL Lymphocytes # 1.4 (0.6-4.6) K/mcL Monocytes # 1.1 (0.0-1.3) K/mcL Eosinophils # 0.4 (0.0-0.6) K/mcL Basophils # 0.1 (0.0-0.2) K/mcL PT 30.1 H (9.4-12.1) Seconds INR 2.7 APTT 43.0 H (26.0-36.0) Seconds Sodium 131 L (136-145) mEq/L Potassium 5.7 H (3.5-5.1) mEq/L Chloride 99 (98-107) mEq/L Carbon Dioxide 25 (23-29) mEq/L BUN 84 H (8-23) mg/dL Creatinine 4.65 H (0.70-1.30) mg/dL Est GFR ( Amer) 15 L (> 60) Est GFR (Non-Af Amer) 13 L (> 60) BUN/Creatinine Ratio 18 (6-26) Glucose 93 (70-105) mg/dL Calculated Osmolality 297 (280-300) Lactic Acid (0.5-2.2) mmol/L Calcium 8.3 L (8.6-10.3) mg/dL Phosphorus 5.3 H (2.7-4.5) mg/dL Magnesium 2.0 (1.6-2.6) mg/dL Total Bilirubin 0.4 (0.3-1.0) mg/dL Direct Bilirubin 0.1 (0.0-0.2) mg/dL Indirect Bilirubin 0.3 (0.0-1.2) mg/dL AST 13 (13-39) Units/L ALT 17 (7-52) Units/L Alkaline Phosphatase 75 (34-104) Units/L Troponin I < 0.03 (< 0.04) ng/mL Serum Total Protein 5.7 L (6.4-8.9) g/dL Albumin 3.3 L (3.5-5.7) g/dL Globulin 2.4 (2.4-3.5) g/dL Albumin/Globulin Ratio 1.4 (1.1-2.2) Urine Color (Yellow) Urine Clarity (Clear) Urine pH (5.0-8.0) pH Units Ur Specific [place] (1.010-1.025) Urine Protein (Neg-Trace) mg/dL Urine Glucose (UA) (Normal) mg/dL Urine Ketones (Negative) mg/dL Urine Blood (Negative) Urine Nitrite (Negative) Urine Bilirubin (Negative) Urine Urobilinogen (Normal) mg/dL Ur Leukocyte Esterase (Negative) Ur Culture Indicated? (NO) 09/16/18 09/16/18 Range/Units 02:55 05:13 WBC (4.3-11.1) K/mcL RBC (4.19-5.50) M/mcL Hgb (12.9-16.9) g/dL Hct (37.5-50.1) % MCV (83.0-100.0) fL MCH (28.0-33.3) pg MCHC (31.6-35.5) g/dL RDW (11.5-14.5) % Plt Count (140-400) K/mcL MPV (9.4-12.4) fL Immature Gran % (0-4) % Seg Neutrophils % % Lymphocytes % % Monocytes % % Eosinophils % % Basophils % % Neutrophils # (1.6-8.9) K/mcL Lymphocytes # (0.6-4.6) K/mcL Monocytes # (0.0-1.3) K/mcL Eosinophils # (0.0-0.6) K/mcL Basophils # (0.0-0.2) K/mcL PT (9.4-12.1) Seconds INR APTT (26.0-36.0) Seconds Sodium (136-145) mEq/L Potassium (3.5-5.1) mEq/L Chloride (98-107) mEq/L Carbon Dioxide (23-29) mEq/L BUN (8-23) mg/dL Creatinine (0.70-1.30) mg/dL Est GFR ( Amer) (> 60) Est GFR (Non-Af Amer) (> 60) BUN/Creatinine Ratio (6-26) Glucose (70-105) mg/dL Calculated Osmolality (280-300) Lactic Acid 0.7 (0.5-2.2) mmol/L Calcium (8.6-10.3) mg/dL Phosphorus (2.7-4.5) mg/dL Magnesium (1.6-2.6) mg/dL Total Bilirubin (0.3-1.0) mg/dL Direct Bilirubin (0.0-0.2) mg/dL Indirect Bilirubin (0.0-1.2) mg/dL AST (13-39) Units/L ALT (7-52) Units/L Alkaline Phosphatase (34-104) Units/L Troponin I (< 0.04) ng/mL Serum Total Protein (6.4-8.9) g/dL Albumin (3.5-5.7) g/dL Globulin (2.4-3.5) g/dL Albumin/Globulin Ratio (1.1-2.2) Urine Color Yellow (Yellow) Urine Clarity Clear (Clear) Urine pH 5.5 (5.0-8.0) pH Units Ur Specific [place] 1.015 (1.010-1.025) Urine Protein Negative (Neg-Trace) mg/dL Urine Glucose (UA) Normal (Normal) mg/dL Urine Ketones Negative (Negative) mg/dL Urine Blood Negative (Negative) Urine Nitrite Negative (Negative) Urine Bilirubin Negative (Negative) Urine Urobilinogen Normal (Normal) mg/dL Ur Leukocyte Esterase Negative (Negative) Ur Culture Indicated? NO (NO) - Radiology Data Radiology results reviewed: Yes I reviewed the patient's radiology results. Head CT 09/16/18 01:28 IMPRESSION: No acute intracranial abnormality. D/ / Dax Epstein / Dax Epstein Interpreting Provider: Dax Epstein Chest X-Ray 09/16/18 06:35 IMPRESSION: Mild pulmonary vascular congestion. Mild left pleural effusion. D/ / Kimo Donnelly MD / Kimo Donnelly MD Interpreting Provider: Kimo Donnelly MD - EKG Data EKG #1 EKG attestation: Yes I reviewed and interpreted this EKG. EKG results narrative: EKG shows an atrial paced rhythm with ventricular rate of 64. Low voltage in precordial leads. No significant change from prior EKG dated 08/25/2018. Critical Care Time Critical Care Time: Yes Total Critical Care Time: 45 Attestation: Critical care performed: Time is exclusive of separately billable procedures. Time includes: direct patient care, patient reassessment, coordination of patient care, interpretation of data (laboratory data, radiology data, and respiratory data), review of p surya's medical records, medical consultation and documentation of patient care. Procedures included in critical care time: Procedures excluded from critical care time: Right IJ central line placement Attestation Statement - Attestation Attestation: I, Chris Rodriguez MD, personally evaluated this patient and discussed their management with the resident physician. I reviewed the resident's note and agree with the documented findings, medical decision making, and plan of care. 68-year-old male presents to the emergency department with a complaint of low blood pressure for 2 days prior to arrival. This is not a new problem and he was just recently admitted to the hospital for the same complaints. He does have a history of chronic kidney disease and reports they feel this is related to his kidney failure. reports that over the past 2 days his highest blood pressure at home has been 66 systolic. She states that one point it was as low as 44/38. He has been awake and alert but complains of increased generalized weakness. states that he is so weak chem hardly hold his head up. He denies any chest pain. No syncope. No bleeding. No melena, hematemesis, or hematochezia. On examination patient is a well-developed obese elderly male in no acute distress. He is alert and oriented 3. There is no cyanosis or diaphoresis. Breath sounds are decreased but equal bilaterally with some dependent rales bilaterally. Heart regular rate and rhythm. Abdomen is soft and nontender with normal bowel sounds. He does have 1+ pitting edema of the lower extremities bilaterally. Patient received a liter bolus of normal saline per EMS. Here in the emergency department he received an additional 500 mL of normal saline that we were reluctant to give anymore because of the patient's pitting edema and his chest x-ray was read as CHF. He remained hypotensive throughout his stay in the emergency department however remained alert and oriented with no alteration in his mental status other than when he was taken to CT scan for the head CT they reported that when they laid him down flat he seemed to pass out briefly. Dr. Freeman discussed the patient with Dr. Wynn, nephrology, and she is very familiar with the patient. She reports that he has these episodes of hypotension sometimes from dehydration and sometimes from fluid overload. Patient has already had fluid bolus with no change in his blood pressure. With his hypotension we do not feel comfortable giving him diuretics at this point. She did recommend to go ahead and start him on pressors. A right IJ central line placement was placed by Dr. Freeman without difficulty. Postprocedure x-ray confirmed placement. I was present for the entire procedure. Labs reviewed. Chest x-ray shows congestive heart failure. EKG shows an atrial paced rhythm with rate of 64 with no acute ischemic changes. Patient was started on norepinephrine infusion for his hypotension. The hospitalist, Dr. Gimenez, was consulted and recommended consulting the intensivists as patient will be needing ICU admission and it is beginning of dayshift. The radio operator ground was consulted and accepted admission of the patient.
[2018-09-16] MEDS: Norepinephrine 4 MG in D5% in Water 250 ML IVC SCH ×3 (07:12→23:25)
--- NOTE | 2018-09-16 08:16 | Pulmonology History & Physical ---
<Chad Pinto W - Last Filed: 09/16/18 16:24> Date of Encounter: 09/16/18 History of Present Illness HPI: Mr. Issa is a 68 year old male Medications and Allergies Amiodarone [Cordarone] 200 mg PO DAILY 04/04/18 [History] Aspirin 81 mg PO DAILY 04/04/18 [History] DULoxetine [Cymbalta] 30 mg PO DAILY 04/04/18 [History] Finasteride [Proscar] 5 mg PO DAILY 04/04/18 [History] Lubiprostone [Amitiza] 16 mcg PO BIDWM 04/04/18 [History] Pantoprazole Sodium [Protonix] 40 mg PO DAILY@0730 04/04/18 [History] Rivaroxaban [Xarelto] 20 mg PO DAILY 04/04/18 [History] Tamsulosin HCl [Flomax] 0.4 mg PO BID 04/04/18 [History] Tiotropium Br/Olodaterol HCl [Stiolto Respimat Inhal [place]] 2 puff IH DAILY 04/24/18 [History] Insulin ASPART [NovoLOG] 0 unit SQ TIDAC 04/25/18 [History] Fluticasone/Salmeterol [Advair 250-50 Diskus] 1 puff IH BID 06/30/18 [History] Gabapentin [Neurontin] 400 mg PO BID 06/30/18 [History] Acetaminophen [Tylenol] 650 mg PO Q6HR PRN 07/26/18 [History] Atorvastatin Calcium [Lipitor] 40 mg PO DAILY 07/26/18 [History] DiphenhydraMINE [Benadryl] 25 mg PO HS PRN 07/26/18 [History] Oxycodone HCl/Acetaminophen [Percocet 10-325 mg Tablet] 1 tab PO Q8H PRN 07/26/18 [History] Furosemide [Lasix] 20 mg PO DAILY 08/09/18 [History] Melatonin 9 mg PO HS 08/26/18 [History] Capsaicin [High Potency Capsaicin] 1 appl TP QID PRN 08/27/18 [History] Carboxymethylcellulose Sodium [Refresh Liquigel] 1 drop BOTH EYES TID 08/27/18 [History] Cholecalciferol (Vitamin D3) [Vitamin D3] 2,000 unit PO DAILY 08/27/18 [History] Metoprolol Succinate [Toprol Xl] 12.5 mg PO DAILY 08/27/18 [History] NALOXONE 4 MG Nasal [place] [Narcan] 4 mg NS AD 08/27/18 [History] Polyethylene Glycol 3350 [Natura-Lax] 17 gm PO DAILY PRN 08/27/18 [History] Potassium Chloride [Klor-Con 10] 40 meq PO DAILY 08/27/18 [History] Saline Nasal [place] [[place] Nasal [place]] 2 spray NS Q2H PRN 08/27/18 [History] Sennosides/Docusate Sodium [Docusate Sodium-Sennosides Tab] 1 tab PO BID PRN 0 08/27/18 [History] Simethicone [Gas-X] 80 mg PO TID PRN 08/27/18 [History] Trazodone HCl 200 mg PO HS 08/27/18 [History] metOLazone [Zaroxolyn] 5 mg PO AD PRN 08/27/18 [History] Allergy/AdvReac Type Severity Reaction Status Date / Time IVP DYE Allergy Severe Anaphylaxis Uncoded 08/14/18 15:58 All Systems: The remainder of the systems were reviewed and are negative Physical Examination Vital Signs: Vital Signs, Last 4 Hours Temp Pulse 09/16/18 12:29 96.9 F L 09/16/18 12:00 82 Results - Laboratory Findings CBC and BMP: 09/16/18 02:55 09/16/18 08:43 PT/INR, D-dimer PT 30.1 Seconds (9.4-12.1) H 09/16/18 02:55 Abnormal lab findings: Abnormal lab results Hgb 11.5 g/dL (12.9-16.9) L 09/16/18 02:55 Hct 36.9 % (37.5-50.1) L 09/16/18 02:55 MCH 27.2 pg (28.0-33.3) L 09/16/18 02:55 MCHC 31.2 g/dL (31.6-35.5) L 09/16/18 02:55 RDW 18.3 % (11.5-14.5) H 09/16/18 02:55 PT 30.1 Seconds (9.4-12.1) H 09/16/18 02:55 APTT 43.0 Seconds (26.0-36.0) H 09/16/18 02:55 Sodium 133 mEq/L (136-145) L 09/16/18 08:43 BUN 84 mg/dL (8-23) H 09/16/18 08:43 Creatinine 4.30 mg/dL (0.70-1.30) H 09/16/18 08:43 Est GFR ( Amer) 17 (> 60) L 09/16/18 08:43 Est GFR (Non-Af Amer) 14 (> 60) L 09/16/18 08:43 Glucose 121 mg/dL (70-105) H 09/16/18 08:43 Calculated Osmolality 303 (280-300) H 09/16/18 08:43 Uric Acid 9.1 mg/dL (2.3-7.6) H 09/16/18 08:43 Phosphorus 5.3 mg/dL (2.7-4.5) H 09/16/18 02:55 Serum Total Protein 5.7 g/dL (6.4-8.9) L 09/16/18 02:55 Albumin 3.3 g/dL (3.5-5.7) L 09/16/18 02:55 - Attending Attestation I examined this patient and my medical decision-making was reviewed with the Resident Physician. I agree with the documented findings, disposition and treatment plan as described except to the extent set forth below. We independently had [id number] contact with the patient I spent 35min of Critical Care time with this patient. It involved decision making of high complexity to assess, manipulate, and support vital organ system failure and/or to prevent further life threatening deterioration of the patient's condition. The time involved in the performance of separately reportable procedures was not counted toward critical care time. Patient seen and examined at bedside Labs, radiology, chart personally reviewed. Management was reviewed during multidisciplinary critical care rounds. 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 Pulm: Acceptable oxygenation on nasal cannula O2 I suspect underlying [place] and he is at risk for developing pulmonary edema continue to monitor this closely may need PAP support Cards: Patient is hypotensive and on vasopressor support unclear etiology is no clear source of infection has been identified I do not feel the patient's in decompensated heart failure and he has not responded to volume resuscitation this leads me to believe that he may be adrenal insufficient especially given hyponatremia and hyperkalemia History of heart failure with evidence of pulmonary edema hold further volume resuscitation GI: Abdominal distention without evidence of obstruction Nutrition: For now Renal: CKD with AG hyperkalemia hs responded to medical mngt. Appreciate Neprho recs. UOP Monitored, Cont to Trend sCr and monitor Electrolytes. ID: No clear source of infection at this time continue to monitor low threshold for starting antibiotics if patient develops fever or has microbiological data suggestive of infection clinically that is not the case at this time Heme/Onc: DVT prophylaxis given Endo: Suspect adrenal insufficiency as cortisol very low despite being so hypotensive/shock state start stress dose hydrocortisone Glucose Monitored Integ/MSK: Skin Care per routine ICU Nursing Protocol to prevent ulcers. Lines: All lines examined without evidence of infection : Dispo: Monitor in the ICU for vasopressor support and high risk of further deterioration CODE: Full <BrigitteduaneNori M - Last Filed: 09/16/18 17:16> Date of Encounter: 09/16/18 Time of Encounter: 07:55 Assessment and Plan (1) Hypotension Current visit: No Status: Acute Initially presented with systolic BP 40-60, normal mentation Unclear etiology Not fluid responsive. Received ~1500cc IVF bolus Central line placed in ER and on Levophed Low clinical suspicion for infectious etiology as no leukocytosis, afebrile, normal UA and no pneumonia Respiratory panel negative Hold off on abx for now Hold off on IVFs as there is pulmonary edema on repeat CXR Cortisol level low, may have underlying adrenal insufficiency and Solu-Cortef started Continue to hold home medications Monitor strict I&Os Qualifiers: Hypotension type: unspecified hypotension type Qualified Code(s): I95.9 - Hypotension, unspecified (2) Acute kidney injury superimposed on chronic kidney disease Current visit: Yes Status: Acute History of CKD stage III BUN 84, Cr 4.30, GFR 14 Unclear etiology for AG. May be due to overdiuresis and dehydration Urinalysis without infection Nephrology consulted, appreciate their recommendations Urine creatinine, sodium, urea nitrogen pending (3) Hypocortisolism Current visit: Yes Status: Acute Random Cortisol in am 3.5 Associated with hypotension, hyponatremia, and hyperkalemia May have underlying adrenal insufficiency Started on Solu-Cortef (4) Hyperkalemia Current visit: Yes Status: Acute Initially 5.7. S/p albuterol, insulin, dextrose, calcium gluconate in ER Repeat 4.7 Monitor BMP (5) Chronic systolic heart failure Current visit: No Status: Acute Most recent echo on 07/07/18 with LVEF 60%, mild to moderate tricuspid regurgitation, mild aortic and mitral regurgitation Has pacemaker for sick sinus syndrome CXR with evidence of pulmonary vascular congestion No further IVFs for now Monitor I&Os and daily weights Monitor for further fluid overload and oxygenation. Currently oxygenating on room air (6) Atrial fibrillation Current visit: No Status: Chronic On Xarelto at home. INR therapeutic and will hold xarelto and home medications for now Currently RRR Qualifiers: Atrial fibrillation type: paroxysmal Qualified Code(s): I48.0 - Paroxysmal atrial fibrillation (7) Diabetes mellitus Current visit: No Status: Chronic NPO for now. 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 Diabetes mellitus complication status: with kidney complications Diabetes mellitus complication detail: with chronic kidney disease Chronic kidney disease stage: stage 3 (moderate) Qualified Code(s): E11.22 - Type 2 diabetes mellitus with diabetic chronic kidney disease; N18.3 - Chronic kidney disease, stage 3 (moderate) (8) Abdominal distension Current visit: No Status: Chronic Abd distension on exam with constipation KUB obtained with nonobstructive bowel gas pattern NPO for now (9) CAD (coronary artery disease) Current visit: No Status: Chronic Holding home medications while patient on vasopressor for now Qualifiers: Coronary Disease-Associated Artery/Lesion type: unspecified vessel or lesion type [place] vs. transplanted heart: unspecified whether [place] or transplanted heart Associated angina: angina presence unspecified Qualified Code(s): I25.10 - Atherosclerotic heart disease of [place] coronary artery without angina pectoris (10) DVT prophylaxis Current visit: No Status: Acute SCDs History of Present Illness Chief complaint: hypotension HPI: Mr. Issa is a 68 year old male with past medical history including atrial fibrillation on xarelto, CHF, COPD, CAD, DM, hypertension, who presented via EMS to the ED for hypotension. Patient was recently hospitalized for similar complaints. He was discharged on 08/27. Patient had hypotension at that time due to poor PO intake and was fluid responsive. The patient states for the last couple of days, he has been feeling generally weak. He takes his blood pressures often and he states the systolic blood pressure has been 40-60 overnight. Patient denies dizziness, lightheadedness, chest pain, shortness of breath, cough, or any other symptoms. No sick contacts. The patient received a total of 1500 cc IVF bolus without response in the ED. A central line was placed and the patient was started on levophed. Patient also has history of CKD stage III and follows up with Dr. Wynn as outpatient. BUN was 80 ad Cr 4.6 with GFR 15, off from his baseline. Dr. Wynn was consulted. He is not on dialysis. He was also noted to have hyperkalemia and received calcium gluconate, insulin, dextrose, and albuterol with improvement in potassium. Low clinical suspicion for infectious etiology. Blood cultures obtained. CXR showed mild congestive heart failure. CT head was obtained without acute intracranial abnormality. Urinalysis without infection. No fever or leukocytosis. Random cortisol level sent. He was admitted to ICU for further management of hypotension requiring pressor support Past Med Surg Social Fam HX - Past Medical History Attestation: Yes The following information was validated with the patient. Source: patient, old records reviewed Medical history: arthritis, atrial fibrillation, CHF, COPD, coronary artery disease, CVA, diabetes, GERD, hyperlipidemia, hypertension, pulmonary embolus, renal disease, other Additional medical history: Pacemaker, emphysema, sick sinus syndrome. chronic knee pain. 3 CVA's. Last CVA April 2018. Psychiatric history: anxiety, depression, panic disorder, PTSD, previous psychiatric hospitalization - Past Surgical History Surgical History: cholecystectomy, herniorrhaphy, knee replacement, orthopedic, other, pacemaker/AICD Additional surgical history: Right knee replacement. Cardiac Ablasion 2014. left arm - Social History Smoking Status: Former smoker Smokeless Tobacco Status: No Alcohol use: none Drug use: none - Family History Father History Unknown: Yes Adopted: No Family Member Ethnicity: Non- Living Status: Hx Family Cardiac Disorders: No Hx Family Respiratory Disorders: No Hx Family Cancer: Yes Hx Family GI Disorders: No Hx Family Endocrine Disorder: No Hx Family Neuromuscular Disorders: No Hx Family Neurologic Disorders: No Hx Family HEENT Disorders: No Hx Family Autoimmune Disorders: No Brother History Unknown: Yes Family Member Ethnicity: Non- Living Status: Still Living Sister History Unknown: Yes Family Member Ethnicity: Non- Living Status: Still Living Mother History Unknown: Yes Adopted: No Family Member Ethnicity: Non- Twin of Family Member: Yes Living Status: Hx Family Cardiac Disorders: Yes Hx Family Respiratory Disorders: No Hx Family Cancer: No Hx Family GI Disorders: No Hx Family Endocrine Disorder: No Hx Family Neuromuscular Disorders: No Hx Family Neurologic Disorders: No Hx Family HEENT Disorders: No Hx Family Autoimmune Disorders: No All Systems: The remainder of the systems were reviewed and are negative - Constitutional Constitutional: as per HPI, weakness, no chills, no fever(s) - EENT Eyes: no loss of vision Nose, mouth and throat: no nasal congestion, no sore throat - Cardiovascular Cardiovascular: no chest pain, no dyspnea - Respiratory Respiratory: no cough, no dyspnea - Gastrointestinal Gastrointestinal: abdominal pain, other (constipation), no nausea - Genitourinary Genitourinary: no dysuria - Musculoskeletal Musculoskeletal: weakness, no neck pain, no tingling - Integumentary Integumentary: no rash - Neurological Neurological: no dizziness, no headache(s) - Endocrine Endocrine: fatigue, no palpitations - Allergic/Immunologic Allergic/Immunologic: no wheezing Physical Examination Vital Signs: Vital Signs, Last 4 Hours Pulse Resp BP Pulse Ox 09/16/18 07:45 101/72 09/16/18 07:29 69 20 87/63 99 09/16/18 07:26 67 81/55 99 09/16/18 07:20 68 20 70/47 100 09/16/18 07:10 60 22 73/56 100 09/16/18 06:38 63 18 84/53 100 09/16/18 06:03 66 18 82/53 96 09/16/18 04:59 73 16 74/55 100 General appearance: no acute distress, other (alert and oriented) Eyes: nonicteric, other (normal conjunctiva) ENT: oropharynx moist Neck: supple, no JVD, other (Right IJ central venous line) Auscultation: bilateral: clear (without wheezing or rhonchi) Cardiovascular: regular rate and rhythm, other (no murmur) Integumentary: other (warm, dry, intact) Extremities: other (mild lower extremity swelling bilaterally to knee. normal capillary refill. bilateral radial pulses equal) Musculoskeletal: no deformities normal mental status, non-focal exam, pupils equal and round, CN II-XII normal, motor strength normal and symmetric mood appropriate, affect normal Results - Laboratory Findings CBC and BMP: 09/16/18 02:55 09/16/18 08:43 PT/INR, D-dimer PT 30.1 Seconds (9.4-12.1) H 09/16/18 02:55 Abnormal lab findings: Abnormal lab results Hgb 11.5 g/dL (12.9-16.9) L 09/16/18 02:55 Hct 36.9 % (37.5-50.1) L 09/16/18 02:55 MCH 27.2 pg (28.0-33.3) L 09/16/18 02:55 MCHC 31.2 g/dL (31.6-35.5) L 09/16/18 02:55 RDW 18.3 % (11.5-14.5) H 09/16/18 02:55 PT 30.1 Seconds (9.4-12.1) H 09/16/18 02:55 APTT 43.0 Seconds (26.0-36.0) H 09/16/18 02:55 Sodium 131 mEq/L (136-145) L 09/16/18 02:55 Potassium 5.7 mEq/L (3.5-5.1) H 09/16/18 02:55 BUN 84 mg/dL (8-23) H 09/16/18 02:55 Creatinine 4.65 mg/dL (0.70-1.30) H 09/16/18 02:55 Est GFR ( Amer) 15 (> 60) L 09/16/18 02:55 Est GFR (Non-Af Amer) 13 (> 60) L 09/16/18 02:55 Calcium 8.3 mg/dL (8.6-10.3) L 09/16/18 02:55 Phosphorus 5.3 mg/dL (2.7-4.5) H 09/16/18 02:55 Serum Total Protein 5.7 g/dL (6.4-8.9) L 09/16/18 02:55 Albumin 3.3 g/dL (3.5-5.7) L 09/16/18 02:55
[2018-09-16 09:09] LABS: Calcium 8.9 mg/dL (8.6-10.3); Potassium 4.7 mEq/L (3.5-5.1)
[2018-09-16 09:41] LABS: Adenovirus Not Detected (Not Detect); Bordetella Pertussis Not Detected (Not Detect); Chlamydophila pneumoniae Not Detected (Not Detect); Coronavirus 229E Not Detected (Not Detect); Coronavirus HKU1 Not Detected (Not Detect); Coronavirus NL63 Not Detected (Not Detect); Coronavirus OC43 Not Detected (Not Detect); Human Metapneumovirus Not Detected (Not Detect); Human Rhinovirus/Enterovirus Not Detected (Not Detect); Influenza A Subtype 2009 H1 Not Detected (Not Detect); Influenza A Untypeable Not Detected (Not Detect); Influenza B Not Detected (Not Detect); Mycoplasma pneumoniae Not Detected (Not Detect); Parainfluenza Virus 1 Not Detected (Not Detect); Parainfluenza Virus 2 Not Detected (Not Detect); Parainfluenza Virus 3 Not Detected (Not Detect); Parainfluenza Virus 4 Not Detected (Not Detect); Respiratory Syncytial Virus Not Detected (Not Detect)
--- NOTE | 2018-09-16 12:34 | Nephrology Consult Note ---
Date of Encounter: 09/16/18 Time of Encounter: 11:00 Assessment and Plan (1) Acute kidney injury superimposed on chronic kidney disease Current Visit: Yes Status: Acute SCr already improving at 4.3, GFR 14 after IVF Will hold diuretics and avoid all nephrotoxins if possible UOP noted already at 2125cc from last night (2) Hyperkalemia Current Visit: Yes Status: Acute Resolved, continue low potassium diet off supplements or aldactone (3) Hypotension Current Visit: Yes Status: Acute Continue levo per primary team Qualifiers: Hypotension type: unspecified hypotension type Qualified Code(s): I95.9 - Hypotension, unspecified (4) CKD (chronic kidney disease) stage 3, GFR 30-59 ml/min Current Visit: No Status: Chronic Baseline GFR around 50s in stable state History of Present Illness - Reason for Consult Consult date: 09/16/18 Acute Kidney Injury, Chronic Kidney Disease Requesting physician: Marito Freeman - History of Present Illness 68 y o male with PMH of DM, HTN, Afib on xarelto, CAD, CHF, COPD and stage 3 CKD with recurrent AKIs on diuretics with frequent hospital stays admitted with generalized weakness and hypotesion down to 40-60s systolic. SCr noted elevated at 4.65, GFR 13 from last discharge last month at 2.15, GFR 31 with baseline GFR around 50. Pt was given 1 liter of NS before I was called overnight from the ED with another 500cc given afterwards. Potassium noted at 5.7 also treated medically. pt seen and examined this am feeling better already with and son at bedside. No N/V/D. Pt was taking lasix 20mg bid. Past Med Surg Social Fam HX - Past Medical History Medical history: arthritis, atrial fibrillation, CHF, COPD, coronary artery disease, CVA, diabetes, GERD, hyperlipidemia, hypertension, pulmonary embolus, renal disease, other Additional medical history: Pacemaker, emphysema, sick sinus syndrome. chronic knee pain. 3 CVA's. Last CVA April 2018. Psychiatric history: anxiety, depression, panic disorder, PTSD, previous psychiatric hospitalization - Past Surgical History Surgical History: cholecystectomy, herniorrhaphy, knee replacement, orthopedic, other, pacemaker/AICD Additional surgical history: Right knee replacement. Cardiac Ablasion 2014. left arm - Social History Smoking Status: Former smoker Smokeless Tobacco Status: No Alcohol use: none Drug use: none - Family History Father History Unknown: Yes Adopted: No Family Member Ethnicity: Non- Living Status: Hx Family Cardiac Disorders: No Hx Family Respiratory Disorders: No Hx Family Cancer: Yes Hx Family GI Disorders: No Hx Family Endocrine Disorder: No Hx Family Neuromuscular Disorders: No Hx Family Neurologic Disorders: No Hx Family HEENT Disorders: No Hx Family Autoimmune Disorders: No Brother History Unknown: Yes Family Member Ethnicity: Non- Living Status: Still Living Sister History Unknown: Yes Family Member Ethnicity: Non- Living Status: Still Living Mother History Unknown: Yes Adopted: No Family Member Ethnicity: Non- Twin of Family Member: Yes Living Status: Hx Family Cardiac Disorders: Yes Hx Family Respiratory Disorders: No Hx Family Cancer: No Hx Family GI Disorders: No Hx Family Endocrine Disorder: No Hx Family Neuromuscular Disorders: No Hx Family Neurologic Disorders: No Hx Family HEENT Disorders: No Hx Family Autoimmune Disorders: No Medications and Allergies Amiodarone [Cordarone] 200 mg PO DAILY 04/04/18 [History] Aspirin 81 mg PO DAILY 04/04/18 [History] Finasteride [Proscar] 5 mg PO DAILY 04/04/18 [History] Lubiprostone [Amitiza] 16 mcg PO BIDWM 04/04/18 [History] Pantoprazole Sodium [Protonix] 40 mg PO DAILY@0730 04/04/18 [History] Tamsulosin HCl [Flomax] 0.4 mg PO BID 04/04/18 [History] Tiotropium Br/Olodaterol HCl [Stiolto Respimat Inhal [place]] 2 puff IH DAILY 04/24/18 [History] Insulin ASPART [NovoLOG] 0 unit SQ TIDAC MDD PER SLIDING SCALE 04/25/18 [History] Fluticasone/Salmeterol [Advair 250-50 Diskus] 1 puff IH BID 06/30/18 [History] Gabapentin [Neurontin] 400 mg PO BID 06/30/18 [History] Acetaminophen [Tylenol] 650 mg PO Q6HR PRN 07/26/18 [History] Atorvastatin Calcium [Lipitor] 40 mg PO DAILY 07/26/18 [History] DiphenhydraMINE [Benadryl] 25 mg PO HS PRN 07/26/18 [History] Furosemide [Lasix] 20 mg PO DAILY 08/09/18 [History] Capsaicin [High Potency Capsaicin] 1 appl TP QID PRN 08/27/18 [History] Carboxymethylcellulose Sodium [Refresh Liquigel] 1 drop BOTH EYES TID 08/27/18 [History] Cholecalciferol (Vitamin D3) [Vitamin D3] 2,000 unit PO DAILY 08/27/18 [History] Metoprolol Succinate [Toprol Xl] 12.5 mg PO DAILY 08/27/18 [History] NALOXONE 4 MG Nasal [place] [Narcan] 4 mg NS AD 08/27/18 [History] Polyethylene Glycol 3350 [Natura-Lax] 17 gm PO DAILY PRN 08/27/18 [History] Potassium Chloride [Klor-Con 10] 40 meq PO DAILY 08/27/18 [History] Saline Nasal [place] [[place] Nasal [place]] 2 spray NS Q2H PRN 08/27/18 [History] Simethicone [Gas-X] 80 mg PO TID PRN 08/27/18 [History] Trazodone HCl 200 mg PO HS 08/27/18 [History] metOLazone [Zaroxolyn] 5 mg PO AD PRN 08/27/18 [History] Docusate [Colace] 300 mg PO HS 09/17/18 [History] Doxycycline Monohydrate [Mondoxyne Nl] 100 mg PO BID 09/17/18 [History] Fluticasone Propionate Nasal [Flonase] 1 spray NS BID PRN 09/17/18 [History] Rivaroxaban [Xarelto] 15 mg PO DAILY 09/17/18 [History] Sennosides [Senokot] 17.2 mg PO BID PRN 09/17/18 [History] Spironolactone [Aldactone] 25 mg PO QAM 09/17/18 [History] Tizanidine HCl 2 mg PO BID PRN 09/17/18 [History] Allergy/AdvReac Type Severity Reaction Status Date / Time IVP DYE Allergy Severe Anaphylaxis Uncoded 09/17/18 12:04 Review of Systems All Systems review (narrative): The rest of the systems are negative Constitutional: fatigue (admits) Cardiovascular: chest pain (denies), leg edema (denies) Respiratory: dyspnea (on occasion but not recently) Gastrointestinal: abdominal pain (denies) Exam - Vital Signs Vital signs: Initial Vital Signs Temp Pulse Resp BP Pulse Ox 97.5 F L 69 18 65/45 98 09/16/18 01:12 09/16/18 01:12 09/16/18 01:12 09/16/18 01:12 09/16/18 01:12 Vital Signs - Last 8 Hours Temp Pulse Resp BP Pulse Ox 09/16/18 12:29 96.9 F L 09/16/18 10:00 67 18 91/70 96 09/16/18 09:00 64 17 93/62 95 09/16/18 08:44 78 09/16/18 08:00 97.5 F L 65 20 101/71 98 09/16/18 07:45 101/72 09/16/18 07:29 69 20 87/63 99 09/16/18 07:26 67 81/55 99 09/16/18 07:20 68 20 70/47 100 09/16/18 07:10 60 22 73/56 100 09/16/18 06:38 63 18 84/53 100 09/16/18 06:03 66 18 82/53 96 09/16/18 04:59 73 16 74/55 100 Intake and Output 09/15/18 09/16/18 09/16/18 23:59 07:59 15:59 Intake Total 625.5 / 625.5 108.6 / 108.6 Output Total 2124 / 2124 Balance 625.5 / 625.5 -2016.4 / -2015.4 Intake: IV Fluids 625.5 / 625.5 108.6 / 108.6 HumuLIN R 10 UNIT In Normal 10.1 / 10.1 Saline Flush 10 ML @ 1212 mls/ hr IV ONCE ONE Rx#:[id number] 0.9 % Sodium Chloride 500 ML @ 500 / 500 999 mls/hr IVC .Q31M ONE Rx#: [id number] Levophed 4 MG In Dextrose 5% 5.4 / 5.4 108.6 / 108.6 250 ML @ 8 MCG/MIN 30.48 mls/hr IVC CONT SHI Rx#:[id number] Calcium Gluconate 1,000 MG In 0 110 / 110 .9 % Sodium Chloride 100 ML @ 220 mls/hr IVPB ONCE ONE Rx#: [id number] Oral 0 / 0 Output: Urine 2124 / 2124 Other: Weight 117.48 kg Blood Glucose* 123 Patient Weight 09/16/18 23:59 Weight 117.48 kg - General Appearance General appearance: chronically ill (NAD) EENT: ATNC, mucous membranes moist Neck: no JVD, supple Respiratory: clear Cardiology: no edema, normal S1, normal S2 Gastrointestinal: no tenderness, no guarding, obese Integumentary: warm and dry Neurologic: no focal deficit Musculoskeletal: no deformities Psychiatric: mood/affect appropriate, cooperative Results - Lab Results 09/17/18 03:20 09/17/18 03:20 Most recent lab results Calcium 8.9 mg/dL (8.6-10.3) 09/16/18 08:43 Phosphorus 5.3 mg/dL (2.7-4.5) H 09/16/18 02:55 Magnesium 2.0 mg/dL (1.6-2.6) 09/16/18 02:55 Urine Sodium 80.9 mEq/L 09/16/18 08:55 Consult Discharge Plan - Plan Referrals: NONE,PCP [Primary Care Provider] -
[2018-09-16 13:03] LABS: Uric Acid 9.1 mg/dL (2.3-7.6)
[2018-09-16] MEDS: Hydrocortisone Sodium Succ 100 MG/2 ML VIAL IVP SCH ×2 (14:41→23:25)
[2018-09-16] MEDS: Pantoprazole 40 MG VIAL IVP SCH (14:41)
[2018-09-16 15:32] LABS: Creatinine,Urine 19 mg/dL
[2018-09-17] MEDS: Melatonin 3 MG TABLET PO SCH ×2 (03:34→21:14)
[2018-09-17] MEDS: traZODone 50 MG TABLET PO SCH ×2 (03:34→21:14)
[2018-09-17 03:40] LABS: Basophils % 0.2 %; Hematocrit 41.1 % (37.5-50.1); Immature Granulocytes % 0.6 % (0-4); Lymphocytes # 0.5 K/mcL (0.6-4.6); Lymphocytes % 4.1 %; Mean Corpuscular HGB Conc 32.1 g/dL (31.6-35.5); Mean Corpuscular Hemoglobin 26.7 pg (28.0-33.3); Mean Corpuscular Volume 83.2 fL (83.0-100.0); Mean Platelet Volume 10.2 fL (9.4-12.4); Monocytes # 0.5 K/mcL (0.0-1.3); Monocytes % 3.9 %; Neutrophils # 11.4 K/mcL (1.6-8.9); Platelet Count 287 K/mcL (140-400); Red Blood Count 4.94 M/mcL (4.19-5.50); Red Cell Distribution Width 18.3 % (11.5-14.5); Segmented Neutrophils % 91.2 %
[2018-09-17 03:42] LABS: Hemoglobin 13.2 g/dL (12.9-16.9)
[2018-09-17 03:48] LABS: INR 1.8; Prothrombin Time 20.1 Seconds (9.4-12.1)
[2018-09-17 03:55] LABS: Magnesium 1.8 mg/dL (1.6-2.6); Phosphorous 1.9 mg/dL (2.7-4.5); Potassium 4.5 mEq/L (3.5-5.1)
--- NOTE | 2018-09-17 07:40 | Pulmonology Progress Note ---
Addendum entered and electronically signed by Nori Mckeon 09/17/18 13:12: Addendum to include physical exam: General: Alert, no acute distress Head: Atraumatic, normocephalic Eyes: normal conjunctiva ENT: oral mucosa moist Neck: right IJ central line catheter appears well without erythema or drainage Cardiac: RRR, no murmur Respiratory: Oxygenating on room air. Lungs clear to auscultation bilaterally without wheezing or crackles Abdomen: mildly distended but soft, nontender Extremities: mild lower extremity swelling, normal capillary refill Neuro: AAOx3, strenght equal bilaterally Psych: normal mood and affect Skin: warm,dry, intact Original Note: <Nori Mckeon - Last Filed: 09/17/18 12:36> Date of Encounter: 09/17/18 Time of Encounter: 07:50 Assessment and Plan (1) Hypotension Current Visit: No Status: Acute Initially presented with systolic BP 40-60, normal mentation Unclear etiology, was not fluid responsive Remains on levophed Will hold off on abx for now as low clinical suspicion for infectious etiology as no leukocytosis, afebrile, normal UA and no pneumonia Respiratory panel negative Continue to hold off on IVFs as there is pulmonary edema on repeat CXR Cortisol level low, may have underlying adrenal insufficiency and started on Solu-Cortef yesterday Started fludrocortisone Continue to hold home antihypertensive medicaitons for now May need to start midodrine if no improvement Qualifiers: Hypotension type: unspecified hypotension type Qualified Code(s): I95.9 - Hypotension, unspecified (2) Acute kidney injury superimposed on chronic kidney disease Current Visit: Yes Status: Acute History of CKD stage III BUN 75, Cr 2.72, GFR 23 today Unclear etiology for AG. May be due to overdiuresis and dehydration Urinalysis without infection Appreciate Nephrology recommendations Urine creatinine, sodium, urea nitrogen normal (3) Hypocortisolism Current Visit: Yes Status: Acute Random Cortisol in am 3.5 Associated with hypotension, hyponatremia, and hyperkalemia May have underlying adrenal insufficiency Started on Solu-Cortef yesterday, will continue and add fludrocortisone CT chest, abdomen and pelvis without contrast were obtained this morning. Results show no acute findings in the chest, abdomen, pelvis. There is symmetrical adrenal glands (4) Hyperkalemia Current Visit: Yes Status: Acute Initially 5.7. S/p albuterol, insulin, dextrose, calcium gluconate in ER Resolved Continue to monitor (5) Chronic systolic heart failure Current Visit: No Status: Acute Most recent echo on 07/07/18 with LVEF 60%, mild to moderate tricuspid regurgitation, mild aortic and mitral regurgitation Has pacemaker for sick sinus syndrome CXR from yesterday with evidence of pulmonary vascular congestion. Repeat CXR today stable Hold IVFs and continue vasopressor support for hypotension Monitor I&Os and daily weights Monitor for further fluid overload and oxygenation. Remains on room air with apporpriate oxygenation and ventilation (6) Atrial fibrillation Current Visit: No Status: Chronic On Xarelto at home. Currently RRR Will give heparin for dvt ppx and resume xarelto tomorrow Qualifiers: Atrial fibrillation type: paroxysmal Qualified Code(s): I48.0 - Paroxysmal atrial fibrillation (7) Diabetes mellitus Current Visit: No Status: Chronic Advance diet to clears low dose SSI Qualifiers: Diabetes mellitus type: type 2 Diabetes mellitus penitentiary insulin use: without penitentiary use Diabetes mellitus complication status: with kidney compl ications Diabetes mellitus complication detail: with chronic kidney disease Chronic kidney disease stage: stage 3 (moderate) Qualified Code(s): E11.22 - Type 2 diabetes mellitus with diabetic chronic kidney disease; N18.3 - Chronic kidney disease, stage 3 (moderate) (8) Abdominal distension Current Visit: No Status: Chronic Abd distension on exam with constipation KUB obtained with nonobstructive bowel gas pattern Diet advanced to clears Will start stool softners if patient does not have a bowel movement (9) CAD (coronary artery disease) Current Visit: No Status: Chronic Resume home meds once medication list reconciled Qualifiers: Coronary Disease-Associated Artery/Lesion type: unspecified vessel or lesion type [place] vs. transplanted heart: unspecified whether [place] or transplanted heart Associated angina: angina presence unspecified Qualified Code(s): I25.10 - Atherosclerotic heart disease of [place] coronary artery without angina pectoris (10) DVT prophylaxis Current Visit: No Status: Acute SCDs, subq heparin Subjective Principal diagnosis: hypotension Interval history: Mr. Issa presented yesterday with chief complaint of hypotension with systolic BP 40-60. Hypotension was not fluid responsive so central line was placed in the ER and patient was started on levophed. Patient also had hyponatremia and h yperkalemia with random cortisol 3.5. There was a concern for underlying adrenal insufficiency and Solu-Cortef was started. CT head showed no acute intracranial abnormality, CXR with mild congestive heart failure, UA without infection, no fever or leukocytosis to suggest an infection. Today, patient remains on levophed. Afebrile overnight. Patient states he is feeling better. He denies lightheadedness, headache, chest pain, shortness of breath, abdominal pain, or any new complaints. Intake 1128mL and output 6350mL yesterday. Will obtain CT chest and abdomen and pelvis to evaluate for underlyi ng adrenal insufficiency. Will resume home medicationsonce medication list reconciled. WIll give heparin for dvt ppx today and resume xarelto tomorrow. Objective PUL Vital signs: Last Vital Signs Temp 98.7 F 09/17/18 04:16 Pulse 60 09/17/18 07:00 Resp 15 09/17/18 07:00 BP 94/60 09/17/18 07:00 Pulse Ox 93 09/17/18 07:00 Results - Laboratory Findings CBC and BMP: 09/17/18 03:20 09/17/18 03:20 PT/INR, D-dimer PT 20.1 Seconds (9.4-12.1) H 09/17/18 03:20 Abnormal lab findings: Abnormal lab results WBC 12.5 K/mcL (4.3-11.1) H D 09/17/18 03:20 MCH 26.7 pg (28.0-33.3) L 09/17/18 03:20 RDW 18.3 % (11.5-14.5) H 09/17/18 03:20 Neutrophils # 11.4 K/mcL (1.6-8.9) H 09/17/18 03:20 Lymphocytes # 0.5 K/mcL (0.6-4.6) L 09/17/18 03:20 PT 20.1 Seconds (9.4-12.1) H 09/17/18 03:20 APTT 37.0 Seconds (26.0-36.0) H 09/17/18 03:20 Sodium 134 mEq/L (136-145) L 09/17/18 03:20 BUN 75 mg/dL (8-23) H 09/17/18 03:20 Creatinine 2.72 mg/dL (0.70-1.30) H 09/17/18 03:20 Est GFR ( Amer) 28 (> 60) L 09/17/18 03:20 Est GFR (Non-Af Amer) 23 (> 60) L 09/17/18 03:20 BUN/Creatinine Ratio 28 (6-26) H 09/17/18 03:20 Glucose 132 mg/dL (70-105) H 09/17/18 03:20 POC Glucose 114 mg/dL (70-99) H 09/16/18 23:40 Calculated Osmolality 302 (280-300) H 09/17/18 03:20 Uric Acid 9.1 mg/dL (2.3-7.6) H 09/16/18 08:43 Phosphorus 1.9 mg/dL (2.7-4.5) L 09/17/18 03:20 Serum Total Protein 5.7 g/dL (6.4-8.9) L 09/16/18 02:55 Albumin 3.3 g/dL (3.5-5.7) L 09/16/18 02:55 - Microbiology Findings Microbiology Findings: Microbiology, Last 48 Hours 09/16/18 02:55 Blood Culture - Preliminary Peripheral Venipuncture Culture is incubating and being continuously monitored for growth. Final report to follow. 09/16/18 03:16 Blood Culture - Preliminary Peripheral Venipuncture Culture is incubating and being continuously monitored for growth. Final report to follow. - Clinical Findings Intake & Output: Intake & Output 09/16/18 09/16/18 09/17/18 15:59 23:59 07:59 Intake Total 248.6 / 248.6 254 / 254 Output Total 3650 / 3650 2700 / 2700 Balance -3401.4 / -3401.4 -2446 / -2446 Weight 127.6 kg Consult Discharge Plan - Plan Referrals: NONE,PCP [Primary Care Provider] - <Alex Maravilla - Last Filed: 09/17/18 21:26> Date of Encounter: 09/17/18 Objective PUL Vital signs: Last Vital Signs Temp 98.7 F 09/17/18 07:35 Pulse 67 09/17/18 09:00 Resp 19 09/17/18 09:00 BP 100/71 09/17/18 09:00 Pulse Ox 95 09/17/18 09:00 Results - Laboratory Findings CBC and BMP: 09/17/18 03:20 09/17/18 03:20 PT/INR, D-dimer PT 20.1 Seconds (9.4-12.1) H 09/17/18 03:20 Abnormal lab findings: Abnormal lab results WBC 12.5 K/mcL (4.3-11.1) H D 09/17/18 03:20 MCH 26.7 pg (28.0-33.3) L 09/17/18 03:20 RDW 18.3 % (11.5-14.5) H 09/17/18 03:20 Neutrophils # 11.4 K/mcL (1.6-8.9) H 09/17/18 03:20 Lymphocytes # 0.5 K/mcL (0.6-4.6) L 09/17/18 03:20 PT 20.1 Seconds (9.4-12.1) H 09/17/18 03:20 APTT 37.0 Seconds (26.0-36.0) H 09/17/18 03:20 Sodium 134 mEq/L (136-145) L 09/17/18 03:20 BUN 75 mg/dL (8-23) H 09/17/18 03:20 Creatinine 2.72 mg/dL (0.70-1.30) H 09/17/18 03:20 Est GFR ( Amer) 28 (> 60) L 09/17/18 03:20 Est GFR (Non-Af Amer) 23 (> 60) L 09/17/18 03:20 BUN/Creatinine Ratio 28 (6-26) H 09/17/18 03:20 Glucose 132 mg/dL (70-105) H 09/17/18 03:20 POC Glucose 114 mg/dL (70-99) H 09/16/18 23:40 Calculated Osmolality 302 (280-300) H 09/17/18 03:20 Uric Acid 9.1 mg/dL (2.3-7.6) H 09/16/18 08:43 Phosphorus 1.9 mg/dL (2.7-4.5) L 09/17/18 03:20 Serum Total Protein 5.7 g/dL (6.4-8.9) L 09/16/18 02:55 Albumin 3.3 g/dL (3.5-5.7) L 09/16/18 02:55 - Microbiology Findings Microbiology Findings: Microbiology, Last 48 Hours 09/16/18 02:55 Blood Culture - Preliminary Peripheral Venipuncture Culture is incubating and being continuously monito red for growth. Final report to follow. 09/16/18 03:16 Blood Culture - Preliminary Peripheral Venipuncture Culture is incubating and being continuously monitored for growth. Final report to follow. - Clinical Findings Intake & Output: Intake & Output 09/16/18 09/17/18 09/17/18 23:59 07:59 15:59 Intake Total 254 / 254 Output Total 2700 / 2700 Balance -2446 / -2446 Weight 127.6 kg - Attending Attestation I examined this patient and my medical decision-making was reviewed with the Resident Physician. I agree with the documented findings, disposition and treatment plan as described except to the extent set forth below. Patient seen and examined. Labs, radiology, chart personally reviewed. Agree with resident's history and physical, assessment, plan with following comments: BETTING CLERKS: Patient follows commands, Pulmonary: Acceptable oxygenation and ventilation Cardiovascular: hypotension and still requiring pressor and hold any B-brisa at this time GI: Nutrition per dietary and GI prophylaxis per routine and start diet Heme: DVT prophylaxis per routine Renal; urine out put and renal funtion reviewed. Discussed with nephrology team and will consider using Coumadin prevent. Endorcine: blood glucose is monitored and CT was ordered to check for his unclear hypotension. Patient is being started on hydrocortisone and will add fludrocortisone for possible adrenal insufficiency Lines: all lines checked and no evidence of infections Skin: skin care to prevent pressure ulcers per nursing routine care Pt will stay in ICU for close monitoring and as soon as he is off vasopressor, will transfer him out of ICU when BP stable
[2018-09-17] MEDS: Pantoprazole 40 MG VIAL IVP SCH (08:56)
[2018-09-17] MEDS: Hydrocortisone Sodium Succ 100 MG/2 ML VIAL IVP SCH ×3 (08:57→23:17)
[2018-09-17] MEDS ORDERED: Dextrose Gel 15 GM/37.5 ML TUBE PO PRN ×2 (12:52)
[2018-09-17] MEDS ORDERED: *HR* Dextrose 50 % in Water (Syg) 50 ML SYRINGE IVP PRN (12:52)
[2018-09-17] MEDS ORDERED: D5% in Water 1,000 ML IVC PRN (12:52)
[2018-09-17] MEDS: *HR* Heparin 5,000 UNIT/ML VIAL SQ SCH ×2 (14:05→21:13)
[2018-09-17] MEDS ORDERED: Sennosides 8.6 MG TABLET PO PRN (15:08)
[2018-09-17] MEDS ORDERED: Fluticasone Propionate Nasal 50 MCG/SPRAY BOTTLE NS PRN (15:08)
[2018-09-17] MEDS ORDERED: Saline Nasal Spray 44 ML BOTTLE NS PRN (15:08)
[2018-09-17] MEDS ORDERED: Capsaicin 0.025% 60 GM TUBE TP PRN (15:08)
[2018-09-17] MEDS ORDERED: Acetaminophen 325 MG TABLET PO PRN (15:08)
[2018-09-17] MEDS: Insulin LISPRO 300 UNITS/3 ML VIAL SQ SCH (16:37)
[2018-09-17 20:26] LABS: Magnesium 2.4 mg/dL (1.6-2.6); Phosphorous 2.9 mg/dL (2.7-4.5)
[2018-09-17] MEDS ORDERED: Insulin LISPRO 300 UNITS/3 ML VIAL SQ SCH (21:00)
[2018-09-17] MEDS: Artificial Tears SOLN 15 ML BOTTLE BOTH EYES SCH (21:13)
[2018-09-17] MEDS: Budesonide/Formoterol 80/4.5 MDI IH SCH (22:02)
[2018-09-17] MEDS: *HR* HYDROcodone/Acet 5/325 mg TABLET PO PRN (22:14)
--- NOTE | 2018-09-17 22:34 | Nephrology Progress Note ---
Date of Encounter: 09/17/18 Time of Encounter: 12:00 - Assessment and Plan (1) Acute kidney injury superimposed on chronic kidney disease Current Visit: Yes Status: Acute SCr improving at 2.72, GFR 23, continue IVF Continue to hold diuretics and avoid all nephrotoxins if possible UOP documented at 6350cc in the past 24hrs, polyuric. Unclear if accurate (2) Hyperkalemia Current Visit: Yes Status: Acute Resolved, continue low potassium diet (3) CKD (chronic kidney disease) stage 3, GFR 30-59 ml/min Current Visit: No Status: Chronic Baseline GFR around 50s in stable state (4) Hypotension Current Visit: Yes Status: Acute Continue levo per primary team Fludrocortisone started by primary team for low random cortisol level Can also try midodrine as needed Qualifiers: Hypotension type: unspecified hypotension type Qualified Code(s): I95.9 - Hypotension, unspecified Subjective Principal diagnosis: hypotension Interval history: Pt moustapha nd examined retsing but easily awaken, no new complaints Objective - Vital Signs Vital signs: Vital Signs Temp Pulse Resp BP Pulse Ox 09/17/18 22:02 16 97 09/17/18 22:00 65 22 103/68 97 09/17/18 21:17 98.2 F 09/17/18 21:00 63 20 109/67 95 09/17/18 20:00 84 16 120/77 91 09/17/18 19:00 61 18 113/81 90 09/17/18 18:00 60 15 110/72 94 09/17/18 17:00 60 15 94/60 94 09/17/18 16:00 97.2 F L 62 17 111/63 94 09/17/18 15:00 63 16 100/61 93 09/17/18 14:00 61 15 109/61 93 09/17/18 13:00 61 15 93/44 93 09/17/18 12:00 97.2 F L 67 18 107/72 92 09/17/18 11:00 60 13 102/72 95 09/17/18 10:00 60 15 98/58 91 09/17/18 09:00 67 19 100/71 95 09/17/18 08:00 60 15 91/75 94 09/17/18 07:35 98.7 F 09/17/18 07:00 60 15 94/60 93 09/17/18 06:00 60 18 91/50 94 09/17/18 05:00 60 19 76/47 94 09/17/18 04:16 98.7 F 09/17/18 04:00 62 19 89/54 94 09/17/18 03:37 88 09/17/18 03:00 68 19 102/63 94 09/17/18 02:00 77 20 86/60 95 09/17/18 01:00 64 16 93/61 95 09/17/18 00:39 98.3 F 09/17/18 00:00 62 18 86/66 95 09/16/18 23:00 85 18 92/61 95 Intake and Output 09/17/18 09/17/18 09/17/18 07:59 15:59 23:59 Intake Total 50 / 50 622 / 622 Output Total 700 / 700 250 / 250 Balance -650 / -650 372 / 372 Intake: IV Fluids 50 / 50 142 / 142 Levophed 4 MG In Dextrose 5% 50 / 50 38 / 38 250 ML @ 8 MCG/MIN 30.48 mls/hr IVC CONT SHI Rx#:[id number] Magnesium Sulfate 2 GM In 0.9 % 104 / 104 Sodium Chloride 100 ML @ 52 mls/hr IVPB Q6H PRN Rx#: [id number] Oral 480 / 480 Output: Urine 700 / 700 250 / 250 Other: Stool Size Large Stool Consistency soft Stool Color Brown Weight 127.6 kg Blood Glucose* 114 106 105 Patient Weight 09/17/18 23:59 Weight 127.6 kg - General Appearance General appearance: Present: chronically ill (NAD) EENT: Present: ATNC, mucous membranes moist Neck: Present: no JVD, supple Respiratory: Present: clear (ant bilat) Cardiology: Present: no edema, normal S1, normal S2 Gastrointestinal: Present: no tenderness, no guarding, obese Integumentary: Present: warm and dry Neurologic: Present: no focal deficit Musculoskeletal: Present: no deformities Psychiatric: Present: mood/affect appropriate, cooperative - Lab 09/17/18 03:20 09/17/18 03:20 Most recent lab results Calcium 9.0 mg/dL (8.6-10.3) 09/17/18 03:20 Phosphorus 2.9 mg/dL (2.7-4.5) 09/17/18 20:00 Magnesium 2.4 mg/dL (1.6-2.6) 09/17/18 20:00 Urine Creatinine 19 mg/dL 09/16/18 14:45 Urine Sodium 80.9 mEq/L 09/16/18 08:55 Consult Discharge Plan - Plan Referrals: NONE,PCP [Primary Care Provider] -
[2018-09-18] MEDS: *HR* Heparin 5,000 UNIT/ML VIAL SQ SCH (05:21)
[2018-09-18 06:44] LABS: Basophils % 0.1 %; Eosinophils % 0.1 %; Hematocrit 38.2 % (37.5-50.1); Hemoglobin 12.2 g/dL (12.9-16.9); Immature Granulocytes % 0.4 % (0-4); Lymphocytes # 0.6 K/mcL (0.6-4.6); Lymphocytes % 7.2 %; Mean Corpuscular HGB Conc 31.9 g/dL (31.6-35.5); Mean Corpuscular Hemoglobin 26.5 pg (28.0-33.3); Mean Corpuscular Volume 82.9 fL (83.0-100.0); Mean Platelet Volume 10.4 fL (9.4-12.4); Monocytes # 0.8 K/mcL (0.0-1.3); Platelet Count 235 K/mcL (140-400); Red Blood Count 4.61 M/mcL (4.19-5.50); Red Cell Distribution Width 17.8 % (11.5-14.5); Segmented Neutrophils % 83.2 %
[2018-09-18 07:02] LABS: Calcium 8.7 mg/dL (8.6-10.3); Magnesium 2.3 mg/dL (1.6-2.6); Phosphorous 4.7 mg/dL (2.7-4.5); Potassium 3.5 mEq/L (3.5-5.1)
--- NOTE | 2018-09-18 07:20 | Pulmonology Consult Note ---
Date of Encounter: 09/18/18 Past Med Surg Social Fam HX - Past Medical History Medical history: arthritis, atrial fibrillation, CHF, COPD, coronary artery disease, CVA, diabetes, GERD, hyperlipidemia, hypertension, pulmonary embolus, renal disease, other Additional medical history: Pacemaker, emphysema, sick sinus syndrome. chronic knee pain. 3 CVA's. Last CVA April 2018. Psychiatric history: anxiety, depression, panic disorder, PTSD, previous psychiatric hospitalization - Past Surgical History Surgical History: cholecystectomy, herniorrhaphy, knee replacement, orthopedic, other, pacemaker/AICD Additional surgical history: Right knee replacement. Cardiac Ablasion 2014. left arm - Social History Smoking Status: Former smoker Smokeless Tobacco Status: No Alcohol use: none Drug use: none - Family History Father History Unknown: Yes Adopted: No Family Member Ethnicity: Non- Living Status: Hx Family Cardiac Disorders: No Hx Family Respiratory Disorders: No Hx Family Cancer: Yes Hx Family GI Disorders: No Hx Family Endocrine Disorder: No Hx Family Neuromuscular Disorders: No Hx Family Neurologic Disorders: No Hx Family HEENT Disorders: No Hx Family Autoimmune Disorders: No Brother History Unknown: Yes Family Member Ethnicity: Non- Living Status: Still Living Sister History Unknown: Yes Family Member Ethnicity: Non- Living Status: Still Living Mother History Unknown: Yes Adopted: No Family Member Ethnicity: Non- Twin of Family Member: Yes Living Status: Hx Family Cardiac Disorders: Yes Hx Family Respiratory Disorders: No Hx Family Cancer: No Hx Family GI Disorders: No Hx Family Endocrine Disorder: No Hx Family Neuromuscular Disorders: No Hx Family Neurologic Disorders: No Hx Family HEENT Disorders: No Hx Family Autoimmune Disorders: No Medications and Allergies Amiodarone [Cordarone] 200 mg PO DAILY 04/04/18 [History] Aspirin 81 mg PO DAILY 04/04/18 [History] Finasteride [Proscar] 5 mg PO DAILY 04/04/18 [History] Lubiprostone [Amitiza] 16 mcg PO BIDWM 04/04/18 [History] Pantoprazole Sodium [Protonix] 40 mg PO DAILY@0730 04/04/18 [History] Tamsulosin HCl [Flomax] 0.4 mg PO BID 04/04/18 [History] Tiotropium Br/Olodaterol HCl [Stiolto Respimat Inhal [place]] 2 puff IH DAILY 04/24/18 [History] Insulin ASPART [NovoLOG] 0 unit SQ TIDAC MDD PER SLIDING SCALE 04/25/18 [Hi story] Fluticasone/Salmeterol [Advair 250-50 Diskus] 1 puff IH BID 06/30/18 [History] Gabapentin [Neurontin] 400 mg PO BID 06/30/18 [History] Acetaminophen [Tylenol] 650 mg PO Q6HR PRN 07/26/18 [History] Atorvastatin Calcium [Lipitor] 40 mg PO DAILY 07/26/18 [History] DiphenhydraMINE [Benadryl] 25 mg PO HS PRN 07/26/18 [History] Furosemide [Lasix] 20 mg PO DAILY 08/09/18 [History] Capsaicin [High Potency Capsaicin] 1 appl TP QID PRN 08/27/18 [History] Carboxymethylcellulose Sodium [Refresh Liquigel] 1 drop BOTH EYES TID 08/27/18 [History] Cholecalciferol (Vitamin D3) [Vitamin D3] 2,000 unit PO DAILY 08/27/18 [History] Metoprolol Succinate [Toprol Xl] 12.5 mg PO DAILY 08/27/18 [History] NALOXONE 4 MG Nasal [place] [Narcan] 4 mg NS AD 08/27/18 [History] Polyethylene Glycol 3350 [Natura-Lax] 17 gm PO DAILY PRN 08/27/18 [History] Potassium Chloride [Klor-Con 10] 40 meq PO DAILY 08/27/18 [History] Saline Nasal [place] [[place] Nasal [place]] 2 spray NS Q2H PRN 08/27/18 [History] Simethicone [Gas-X] 80 mg PO TID PRN 08/27/18 [History] Trazodone HCl 200 mg PO HS 08/27/18 [History] metOLazone [Zaroxolyn] 5 mg PO AD PRN 08/27/18 [History] Docusate [Colace] 300 mg PO HS 09/17/18 [History] Doxycycline Monohydrate [Mondoxyne Nl] 100 mg PO BID 09/17/18 [History] Fluticasone Propionate Nasal [Flonase] 1 spray NS BID PRN 09/17/18 [History] Rivaroxaban [Xarelto] 15 mg PO DAILY 09/17/18 [History] Sennosides [Senokot] 17.2 mg PO BID PRN 09/17/18 [History] Spironolactone [Aldactone] 25 mg PO QAM 09/17/18 [History] Tizanidine HCl 2 mg PO BID PRN 09/17/18 [History] Allergy/AdvReac Type Severity Reaction Status Date / Time IVP DYE Allergy Severe Anaphylaxis Uncoded 09/17/18 12:04 All Systems: The remainder of the systems were reviewed and are negative Physical Examination Vital Signs: Vital Signs, Last 4 Hours Temp Pulse Resp BP Pulse Ox 09/18/18 06:00 60 18 97/63 92 09/18/18 05:00 75 17 103/62 95 09/18/18 04:39 98.2 F 09/18/18 04:00 62 14 104/60 91 Results - Laboratory Findings CBC and BMP: 09/18/18 06:21 09/18/18 06:21 PT/INR, D-dimer PT 20.1 Seconds (9.4-12.1) H 09/17/18 03:20 Abnormal lab findings: Abnormal lab results Hgb 12.2 g/dL (12.9-16.9) L 09/18/18 06:21 MCV 82.9 fL (83.0-100.0) L 09/18/18 06:21 MCH 26.5 pg (28.0-33.3) L 09/18/18 06:21 RDW 17.8 % (11.5-14.5) H 09/18/18 06:21 PT 20.1 Seconds (9.4-12.1) H 09/17/18 03:20 APTT 37.0 Seconds (26.0-36.0) H 09/17/18 03:20 BUN 59 mg/dL (8-23) H 09/18/18 06:21 Creatinine 1.76 mg/dL (0.70-1.30) H 09/18/18 06:21 Est GFR ( Amer) 47 (> 60) L 09/18/18 06:21 Est GFR (Non-Af Amer) 39 (> 60) L 09/18/18 06:21 BUN/Creatinine Ratio 34 (6-26) H 09/18/18 06:21 Glucose 132 mg/dL (70-105) H 09/18/18 06:21 POC Glucose 105 mg/dL (70-99) H 09/17/18 20:20 Calculated Osmolality 302 (280-300) H 09/18/18 06:21 Uric Acid 9.1 mg/dL (2.3-7.6) H 09/16/18 08:43 Phosphorus 4.7 mg/dL (2.7-4.5) H 09/18/18 06:21 Serum Total Protein 5.7 g/dL (6.4-8.9) L 09/16/18 02:55 Albumin 3.3 g/dL (3.5-5.7) L 09/16/18 02:55 - Microbiology Findings Microbiology Findings: Microbiology, Last 48 Hours 09/16/18 02:55 Blood Culture - Preliminary Peripheral Venipuncture Culture is incubating and being continuously monitored for growth. Final report to follow. 09/16/18 03:16 Blood Culture - Preliminary Peripheral Venipuncture Culture is incubating and being continuously monitored for growth. Final report to follow. - Clinical Findings Intake & Output: Intake & Output 09/17/18 09/17/18 09/18/18 15:59 23:59 07:59 Intake Total 50 / 50 622 / 622 500 / 500 Output Total 700 / 700 250 / 250 600 / 600 Balance -650 / -650 372 / 372 -100 / -100 Weight 103.8 kg Consult Discharge Plan - Plan Referrals: NONE,PCP [Primary Care Provider] -
--- NOTE | 2018-09-18 07:21 | Pulmonology Progress Note ---
<Brayan Kamara P - Last Filed: 09/18/18 14:41> Date of Encounter: 09/18/18 Time of Encounter: 07:15 Assessment and Plan (1) Hypotension Current Visit: Yes Status: Acute The patient was initially presented with hypotension, systolic blood pressure below 60, without altered sensorium Patient was not responsive with aggressive fluid resuscitation Levophed was started ,we have discontinued as his blood pressure improved Random cortisol level was low 3.5 , so he was on solu- cortef for suspected underlying adrenal insufficiency The blood pressure has been improved with pressure support and IV fluid Fludrocortisone has been started His blood pressure has been improved 111/63 , Home antihypertensive medication has been put on hold and antibiotic has been hold as low clinical suspicion for an infection, no high white cell count, no rmal x-ray, normal urinalysis. We are planning to separate him to a stepdown unit under hospitalist today. Qualifiers: Hypotension type: unspecified hypotension type Qualified Code(s): I95.9 - Hypotension, unspecified (2) Acute kidney injury superimposed on chronic kidney disease Current Visit: Yes Status: Acute This is a patient of CTD stage III, he has superimpose AG may be due to overdiuresis /dehydration Nephrology team is on board Latest serum sodium 137, potassium 3.5, BUN 59, creatinine 1.76, GFR 39: Much better than yesterday. Nephrotoxic medication is on hold. We will monitor his renal function again tomorrow (3) A-fib Current Visit: Yes Status: Acute On Xarelto at home. Currently RRR was on heparin for dvt ppx and resume xarelto as he is taking at home. Qualifiers: Atrial fibrillation type: chronic Qualified Code(s): I48.2 - Chronic atrial fibrillation (4) Hypocortisolism Current Visit: Yes Status: Acute Random Cortisol in am 3.5 Associated with hypotension, hyponatremia, and hyperkalemia May have underlying adrenal insufficiency Started on Solu-Cortef yesterday, will continue and add fludrocortisone CT chest abdomen and Pelvis :Results show no acute findings in the chest, abdomen, pelvis. There is symmetrical adrenal glands He is on fludrocortisone and Solu -cortef We will closely monitor. (5) Systolic heart failure Current Visit: Yes Status: Acute Echo done on 07/07/18 with LVEF 60%, mild to moderate tricuspid regurgitation, mild aortic and mitral regurgitation Has pacemaker for sick sinus syndrome CXR f with evidence of pulmonary vascular congestion. Repeat CXR looks stable Hold IVFs and continue vasopressor support for hypotension Monitor I&Os and daily weights Monitor for further fluid overload and oxygenation. Remains on room air with appropriate oxygenation Qualifiers: Heart failure chronicity: chronic Qualified Code(s): I50.22 - Chronic systolic (congestive) heart failure (6) Hyperkalemia Current Visit: Yes Status: Resolved The patient has hyperkalemia at the beginning: Potassium level 5.7 Now it has been improved , the patient potassium level is 4.5 (7) Diabetes Current Visit: Yes Status: Acute This is chronic patient of type 2 diabetes, he is on insulin sliding scale Latest blood glucose 132 We will monitor blood sugar level daily Qualifiers: Chronic kidney disease stage: unspecified stage Qualified Code(s): E08.22 - Diabetes mellitus due to underlying condition with diabetic chronic kidney disease; Z79.4 - terminal computer operator (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 Qualifiers: Associated angina: with unspecified angina Qualified Code(s): I25.119 - Atherosclerotic heart disease of [place] coronary artery with unspecified angina pectoris (9) Abdominal distension Current Visit: Yes Status: Acute Abd distension on exam with constipation KUB obtained with nonobstructive bowel gas pattern Diet advanced to clears On stool softner PRN Objective PUL Vital signs: Last Vital Signs Temp 98.2 F 09/18/18 04:39 Pulse 60 09/18/18 06:00 Resp 18 09/18/18 06:00 BP 97/63 09/18/18 06:00 Pulse Ox 92 09/18/18 06:00 General appearance: no acute distress Eyes: nonicteric ENT: oropharynx moist Neck: supple Effort: normal Cardiovascular: regular rate and rhythm Gastrointestinal: normoactive bowel sounds, soft, non-tender, non-distended Integumentary: normal Extremities: no cyanosis normal mental status, pupils equal and round, CN II-XII normal mood appropriate Results - Laboratory Findings CBC and BMP: 09/18/18 06:21 09/18/18 06:21 PT/INR, D-dimer PT 20.1 Seconds (9.4-12.1) H 09/17/18 03:20 Abnormal lab findings: Abnormal lab results Hgb 12.2 g/dL (12.9-16.9) L 09/18/18 06:21 MCV 82.9 fL (83.0-100.0) L 09/18/18 06:21 MCH 26.5 pg (28.0-33.3) L 09/18/18 06:21 RDW 17.8 % (11.5-14.5) H 09/18/18 06:21 PT 20.1 Seconds (9.4-12.1) H 09/17/18 03:20 APTT 37.0 Seconds (26.0-36.0) H 09/17/18 03:20 BUN 59 mg/dL (8-23) H 09/18/18 06:21 Creatinine 1.76 mg/dL (0.70-1.30) H 09/18/18 06:21 Est GFR ( Amer) 47 (> 60) L 09/18/18 06:21 Est GFR (Non-Af Amer) 39 (> 60) L 09/18/18 06:21 BUN/Creatinine Ratio 34 (6-26) H 09/18/18 06:21 Glucose 132 mg/dL (70-105) H 09/18/18 06:21 POC Glucose 105 mg/dL (70-99) H 09/17/18 20:20 Calculated Osmolality 302 (280-300) H 09/18/18 06:21 Uric Acid 9.1 mg/dL (2.3-7.6) H 09/16/18 08:43 Phosphorus 4.7 mg/dL (2.7-4.5) H 09/18/18 06:21 Serum Total Protein 5.7 g/dL (6.4-8.9) L 09/16/18 02:55 Albumin 3.3 g/dL (3.5-5.7) L 09/16/18 02:55 - Microbiology Findings Microbiology Findings: Microbiology, Last 48 Hours 09/16/18 02:55 Blood Culture - Preliminary Peripheral Venipuncture Culture is incubating and being continuously monitored for growth. Final report to follow. 09/16/18 03:16 Blood Culture - Preliminary Peripheral Venipuncture Culture is incubating and being continuously monitored for growth. Final report to follow. - Clinical Findings Intake & Output: Intake & Output 09/17/18 09/17/18 09/18/18 15:59 23:59 07:59 Intake Total 50 / 50 622 / 622 500 / 500 Output Total 700 / 700 250 / 250 600 / 600 Balance -650 / -650 372 / 372 -100 / -100 Weight 103.8 kg Consult Discharge Plan - Plan Referrals: [facility] [Outside] Subjective Principal diagnosis: hypotension Interval history: Mr. Issa presented for severe hypotension with systolic BP 40-60. Hypotension was not fluid responsive so central line was placed in the ED and patient was started on levophed. Patient also had hyponatremia and hyperkalemia with random cortisol 3.5. There was a concern for underlying adrenal insufficiency and Solu- Cortef was started. CT head showed no acute intracranial abnormality, CXR with mild congestive heart failure, UA no infection, no fever or leukocytosis to suggest an infection. Today during my bedside visit, patient was awake, alert, well oriented to time place and person. Patient is stated that he is improving symptomatically, his vitals are blood pressure 103/62, temperature 98.2, saturation 95% room air, pulse 60/m. The patient's blood pressure came up after pressure support and IV fluid. We are planning to consult physical therapy for mobilization and planning to transfer to stepdown gardner today. <Alex Maravilla M - Last Filed: 09/19/18 06:20> Date of Encounter: 09/19/18 Objective PUL Vital signs: Last Vital Signs Temp 98.9 F 09/19/18 03:39 Pulse 73 09/19/18 03:39 Resp 16 09/19/18 03:39 BP 144/74 09/19/18 03:39 Pulse Ox 93 09/19/18 03:39 Results - Laboratory Findings CBC and BMP: 09/18/18 06:21 09/18/18 06:21 PT/INR, D-dimer PT 20.1 Seconds (9.4-12.1) H 09/17/18 03:20 Abnormal lab findings: Abnormal lab results Hgb 12.2 g/dL (12.9-16.9) L 09/18/18 06:21 MCV 82.9 fL (83.0-100.0) L 09/18/18 06:21 MCH 26.5 pg (28.0-33.3) L 09/18/18 06:21 RDW 17.8 % (11.5-14.5) H 09/18/18 06:21 PT 20.1 Seconds (9.4-12.1) H 09/17/18 03:20 APTT 37.0 Seconds (26.0-36.0) H 09/17/18 03:20 BUN 59 mg/dL (8-23) H 09/18/18 06:21 Creatinine 1.76 mg/dL (0.70-1.30) H 09/18/18 06:21 Est GFR ( Amer) 47 (> 60) L 09/18/18 06:21 Est GFR (Non-Af Amer) 39 (> 60) L 09/18/18 06:21 BUN/Creatinine Ratio 34 (6-26) H 09/18/18 06:21 Glucose 132 mg/dL (70-105) H 09/18/18 06:21 POC Glucose 287 mg/dL (70-99) H 09/18/18 17:47 Calculated Osmolality 302 (280-300) H 09/18/18 06:21 Uric Acid 9.1 mg/dL (2.3-7.6) H 09/16/18 08:43 Phosphorus 4.7 mg/dL (2.7-4.5) H 09/18/18 06:21 Serum Total Protein 5.7 g/dL (6.4-8.9) L 09/16/18 02:55 Albumin 3.3 g/dL (3.5-5.7) L 09/16/18 02:55 - Clinical Findings Intake & Output: Intake & Output 09/18/18 09/18/18 09/19/18 15:59 23:59 07:59 Intake Total 480 / 480 440 / 440 400 / 400 Output Total 1000 / 1000 0 / 0 600 / 600 Balance -520 / -520 440 / 440 -200 / -200 Weight 139.1 kg 126.5 kg - Attending Attestation Patient seen and examined on 09/18/2018 and this addendum was done on 09/19/2018 I examined this patient and my medical decision-making was reviewed with the Resident Physician. I agree with the documented findings, disposition and treatment plan as described except to the extent set forth below. Patient seen and examined. Labs, radiology, chart personally reviewed. Agree with resident's history and physical, assessment, plan with following comments: BUNDLE BREAKER: Patient follows commands, Pulmonary: Acceptable oxygenation and ventilation Cardiovascular: stable and patient feels better with improving his blood pressure. GI: Nutrition per dietary and GI prophylaxis per routine Heme: DVT prophylaxis per routine Renal; urine out put and renal funtion reviewed. Nephrology continue following. Endorcine: blood glucose is monitored. Patient to continue on current treatment for which looks like adrenal insufficiency and can be transitioned to oral treatment soon for progression to discharge home. Patient will need to follow up with water softener installer as outpatient. Lines: all lines checked and no evidence of infections Skin: skin care to prevent pressure ulcers per nursing routine care Patient remained stable and can be transferred to the floor. Physical therapy evaluation.
[2018-09-18] MEDS: Pantoprazole 40 MG VIAL IVP SCH (07:43)
[2018-09-18] MEDS: Hydrocortisone Sodium Succ 100 MG/2 ML VIAL IVP SCH ×2 (07:43→17:03)
[2018-09-18] MEDS: Artificial Tears SOLN 15 ML BOTTLE BOTH EYES SCH ×3 (07:44→21:26)
[2018-09-18] MEDS: Insulin LISPRO 300 UNITS/3 ML VIAL SQ SCH ×3 (07:44→19:14)
[2018-09-18] MEDS: *HR* HYDROcodone/Acet 5/325 mg TABLET PO PRN (07:55)
[2018-09-18] MEDS: Budesonide/Formoterol 80/4.5 MDI IH SCH ×2 (07:56→20:25)
[2018-09-18] MEDS ORDERED: Finasteride 5 MG TABLET PO SCH (09:00)
[2018-09-18] MEDS ORDERED: Aspirin 81 MG TAB.CHEW PO SCH (09:00)
[2018-09-18] MEDS ORDERED: *HR* Dextrose 50 % in Water (Syg) 50 ML SYRINGE IVP PRN (16:15)
[2018-09-18] MEDS ORDERED: Sennosides 8.6 MG TABLET PO PRN (16:15)
[2018-09-18] MEDS ORDERED: Acetaminophen 325 MG TABLET PO PRN (16:15)
[2018-09-18] MEDS ORDERED: Saline Nasal Spray 44 ML BOTTLE NS PRN (16:15)
[2018-09-18] MEDS ORDERED: *HR* HYDROcodone/Acet 5/325 mg TABLET PO PRN (16:15)
[2018-09-18] MEDS ORDERED: Dextrose Gel 15 GM/37.5 ML TUBE PO PRN ×2 (16:15)
[2018-09-18] MEDS ORDERED: Capsaicin 0.025% 60 GM TUBE TP PRN (16:15)
[2018-09-18] MEDS ORDERED: Fluticasone Propionate Nasal 50 MCG/SPRAY BOTTLE NS PRN (16:15)
[2018-09-18] MEDS ORDERED: D5% in Water 1,000 ML IVC PRN (16:15)
[2018-09-18] MEDS ORDERED: *HR* Rivaroxaban 15 MG TABLET PO SCH (17:00)
[2018-09-18] MEDS: *HR* Rivaroxaban 15 MG TABLET PO SCH (19:15)
[2018-09-18] MEDS ORDERED: traZODone 50 MG TABLET PO SCH (21:00)
[2018-09-18] MEDS ORDERED: Melatonin 3 MG TABLET PO SCH (21:00)
[2018-09-18] MEDS ORDERED: Insulin LISPRO 300 UNITS/3 ML VIAL SQ SCH (21:00)
--- NOTE | 2018-09-18 23:51 | Nephrology Progress Note ---
Date of Encounter: 09/18/18 Time of Encounter: 12:00 - Assessment and Plan (1) Acute kidney injury superimposed on chronic kidney disease Current Visit: Yes Status: Acute SCr continues to improve at 1.76, GFR 39 after IVF and improved hemodynamics Will hold diuretics and avoid all nephrotoxins if possible UOP noted at 950cc in the past 24hrs (2) Hyperkalemia Current Visit: Yes Status: Resolved Resolved, off supplements and aldactone (3) Hypotension Current Visit: Yes Status: Acute Resolved off levo continue fludrocortisone and hydrcortisone per primary team Qualifiers: Hypotension type: unspecified hypotension type Qualified Code(s): I95.9 - Hypotension, unspecified (4) CKD (chronic kidney disease) stage 3, GFR 30-59 ml/min Current Visit: No Status: Chronic Baseline GFR around 50s in stable state Subjective Principal diagnosis: hypotension Interval history: Pt seen and examined feeling better, no new complaints. Off levo Objective - Vital Signs Vital signs: Vital Signs Temp Pulse Resp BP Pulse Ox 09/18/18 23:12 98.1 F 76 16 133/73 98 09/18/18 20:25 17 95 09/18/18 18:56 98.0 F 79 16 103/69 95 09/18/18 17:42 98.1 F 72 16 109/67 96 09/18/18 12:00 70 09/18/18 11:00 97.7 F 70 15 111/63 92 09/18/18 10:00 74 15 106/59 92 09/18/18 09:00 72 18 113/65 95 09/18/18 08:56 97.9 F 09/18/18 08:00 68 13 125/79 94 09/18/18 07:41 16 94 09/18/18 07:00 65 12 103/62 95 09/18/18 06:00 60 18 97/63 92 09/18/18 05:00 75 17 103/62 95 09/18/18 04:39 98.2 F 09/18/18 04:00 62 14 104/60 91 09/18/18 03:00 78 13 101/61 91 09/18/18 02:00 63 16 108/68 91 09/18/18 01:00 77 16 106/66 94 09/18/18 00:59 98.5 F 09/18/18 00:00 64 16 103/60 91 Intake and Output 09/18/18 09/18/18 09/18/18 07:59 15:59 23:59 Intake Total 500 / 500 480 / 480 440 / 440 Output Total 600 / 600 1000 / 1000 0 / 0 Balance -100 / -100 -520 / -520 440 / 440 Intake: Oral 500 / 500 480 / 480 440 / 440 Output: Urine 600 / 600 1000 / 1000 0 / 0 Other: Meal Breakfast Dinner Percent of Meal Consumed 100% 0% Stool Size Large Stool Consistency soft Stool Color Brown # Voids 2 Weight 103.8 kg 139.1 kg Blood Glucose* 170 133 Patient Weight 09/18/18 23:59 Weight 139.1 kg - Lab 09/18/18 06:21 09/18/18 06:21 Most recent lab results Calcium 8.7 mg/dL (8.6-10.3) 09/18/18 06:21 Phosphorus 4.7 mg/dL (2.7-4.5) H 09/18/18 06:21 Magnesium 2.3 mg/dL (1.6-2.6) 09/18/18 06:21 Urine Creatinine 19 mg/dL 09/16/18 14:45 Urine Sodium 80.9 mEq/L 09/16/18 08:55 Consult Discharge Plan - Plan Referrals: [facility] [Outside]
[2018-09-19] MEDS: Hydrocortisone Sodium Succ 100 MG/2 ML VIAL IVP SCH ×3 (01:02→16:25)
[2018-09-19 06:38] LABS: Calcium 8.7 mg/dL (8.6-10.3); Phosphorous 2.7 mg/dL (2.7-4.5); Potassium 3.7 mEq/L (3.5-5.1)
[2018-09-19] MEDS: Budesonide/Formoterol 80/4.5 MDI IH SCH (07:39)
[2018-09-19] MEDS: Insulin LISPRO 300 UNITS/3 ML VIAL SQ SCH ×3 (07:41→16:25)
[2018-09-19] MEDS: Artificial Tears SOLN 15 ML BOTTLE BOTH EYES SCH ×2 (08:29→16:24)
[2018-09-19] MEDS ORDERED: Aspirin 81 MG TAB.CHEW PO SCH (09:00)
[2018-09-19] MEDS ORDERED: Finasteride 5 MG TABLET PO SCH (09:00)
[2018-09-19 14:12] VITALS: BP 147/73
--- NOTE | 2018-09-19 14:20 | Discharge Summary ---
- NOTES TO OUTPATIENT PROVIDER Notes to Outpatient Provider: Patient will need follow with PCP within a week. Patient will need to follow with endocrinology for complete evaluation and management of adrenal insufficiency. Patient will also follow with nephrology within 2-3 weeks. Spironolactone on hold. Orders not resulted at time of discharge: Pending orders 09/16/18 02:55 Culture,Blood [BC] Stat Date of Encounter: 09/19/18 Time of Encounter: 14:05 - Discharge Diagnosis (1) Acute kidney injury superimposed on chronic kidney disease Priority: Primary Status: Acute (2) Hyperkalemia Priority: Primary Status: Resolved (3) Hypocortisolism Priority: Primary Status: Acute (4) Hypotension Priority: Primary Status: Acute Qualifiers: Hypotension type: unspecified hypotension type Qualified Code(s): I95.9 - Hypotension, unspecified (5) A-fib Priority: Secondary Status: Acute Qualifiers: Atrial fibrillation type: chronic Qualified Code(s): I48.2 - Chronic atrial fibrillation (6) Diabetes Priority: Secondary Status: Acute Qualifiers: Chronic kidney disease stage: unspecified stage Qualified Code(s): E08.22 - Diabetes mellitus due to underlying condition with diabetic chronic kidney disease; Z79.4 - FPC (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 of insulin (7) CAD (coronary artery disease) Priority: Secondary Status: Acute Qualifiers: Associated angina: with unspecified angina Qualified Code(s): I25.119 - Atherosclerotic heart disease of [place] coronary artery with unspecified angina pectoris (8) Abdominal distension Priority: Secondary Status: Acute (9) Systolic heart failure Priority: Secondary Status: Acute Qualifiers: Heart failure chronicity: chronic Qualified Code(s): I50.22 - Chronic systolic (congestive) heart failure Hospital course: Mr. Issa is a 68 year old male past medical history of atrial fibrillation, systolic CHF, COPD, diabetes, hypertension, PE came to ED for hypotension. Patient was hospitalized or similar reason about few weeks ago which was thought to be due to decreased by mouth intake and was fluid responsive. During his admission patient received IV fluids but failed to improve his blood pressure. Patient was also found to have AG on CKD stage III due to hypertension. Patient was admitted to ICU for pressor support. Spironolactone and Lasix was put on hold. Patient's renal function improved. Patient was also found to have low cortisol and was started on hydrocortisone and fludrocortisone after release his blood pressure improved. No acute abnormality were found on CT chest and abdomen and pelvis. Patient did not receive any antibiotics. Patient was subsequently transferred to floor as his kidney function significantly improved almost to his baseline, his electrolytes improved as well as his blood pressure was improved after pressors were stopped. Patient otherwise denies stable to go home. Patient would be discharged on hydrocortisone and fludrocortisone. Spironolactone would be stopped. Lasix dose decreased. Patient would need endocrinology follow-up as outpatient. Discharge discussed with: patient, nurse, consultant internship - Time Spent with Patient Total time spent providing and/or coordinating discharge services: Time spent: Greater than 30 minutes (40) - Discharge Medications Prescriptions: New Fludrocortisone Acetate [Florinef] 0.1 mg PO DAILY 30 Days #30 tablet Hydrocortisone 10 mg PO DAILY 15 Days #15 tablet Hydrocortisone [Cortef] 5 mg PO DAILY 15 Days #15 tablet Continue Tamsulosin HCl [Flomax] 0.4 mg PO BID Amiodarone [Cordarone] 200 mg PO DAILY Aspirin 81 mg PO DAILY Lubiprostone [Amitiza] 16 mcg PO BIDWM Pantoprazole Sodium [Protonix] 40 mg PO DAILY@0730 Finasteride [Proscar] 5 mg PO DAILY Tiotropium Br/Olodaterol HCl [Stiolto Respimat Inhal [place]] 2 puff IH DAILY Insulin ASPART [NovoLOG] 0 unit SQ TIDAC MDD PER SLIDING SCALE Gabapentin [Neurontin] 400 mg PO BID Fluticasone/Salmeterol [Advair 250-50 Diskus] 1 puff IH BID Acetaminophen [Tylenol] 650 mg PO Q6HR PRN PRN Reason: PAIN/FEVER Atorvastatin Calcium [Lipitor] 40 mg PO DAILY DiphenhydraMINE [Benadryl] 25 mg PO HS PRN PRN Reason: Itching Furosemide [Lasix] 20 mg PO DAILY Carboxymethylcellulose Sodium [Refresh Liquigel] 1 drop BOTH EYES TID Cholecalciferol (Vitamin D3) [Vitamin D3] 2,000 unit PO DAILY Metoprolol Succinate [Toprol Xl] 12.5 mg PO DAILY NALOXONE 4 MG Nasal [place] [Narcan] 4 mg NS AD Potassium Chloride [Klor-Con 10] 40 meq PO DAILY Saline Nasal [place] [Covel Nasal [place]] 2 spray NS Q2H PRN PRN Reason: "NASAL PASSAGE CLEARING" Simethicone [Gas-X] 80 mg PO TID PRN PRN Reason: GAS Capsaicin [High Potency Capsaicin] 1 appl TP QID PRN PRN Reason: Pain Polyethylene Glycol 3350 [Natura-Lax] 17 gm PO DAILY PRN PRN Reason: Constipation Trazodone HCl 200 mg PO HS Docusate [Colace] 300 mg PO HS Fluticasone Propionate Nasal [Flonase] 1 spray NS BID PRN PRN Reason: Allergy Symptoms Rivaroxaban [Xarelto] 15 mg PO DAILY Sennosides [Senokot] 17.2 mg PO BID PRN PRN Reason: Constipation Tizanidine HCl 2 mg PO BID PRN PRN Reason: MUSCLE SPASM Discontinued Doxycycline Monohydrate [Mondoxyne Nl] 100 mg PO BID Spironolactone [Aldactone] 25 mg PO QAM No Action metOLazone [Zaroxolyn] 5 mg PO AD PRN PRN Reason: SWELLING/ WEIGHT GAIN Home Medications: Amiodarone [Cordarone] 200 mg PO DAILY 04/04/18 [History] Aspirin 81 mg PO DAILY 04/04/18 [History] Finasteride [Proscar] 5 mg PO DAILY 04/04/18 [History] Lubiprostone [Amitiza] 16 mcg PO BIDWM 04/04/18 [History] Pantoprazole Sodium [Protonix] 40 mg PO DAILY@0730 04/04/18 [History] Tamsulosin HCl [Flomax] 0.4 mg PO BID 04/04/18 [History] Tiotropium Br/Olodaterol HCl [Stiolto Respimat Inhal [place]] 2 puff IH DAILY 04/24/18 [History] Insulin ASPART [NovoLOG] 0 unit SQ TIDAC MDD PER SLIDING SCALE 04/25/18 [ History] Fluticasone/Salmeterol [Advair 250-50 Diskus] 1 puff IH BID 06/30/18 [History] Gabapentin [Neurontin] 400 mg PO BID 06/30/18 [History] Acetaminophen [Tylenol] 650 mg PO Q6HR PRN 07/26/18 [History] Atorvastatin Calcium [Lipitor] 40 mg PO DAILY 07/26/18 [History] DiphenhydraMINE [Benadryl] 25 mg PO HS PRN 07/26/18 [History] Furosemide [Lasix] 20 mg PO DAILY 08/09/18 [History] Capsaicin [High Potency Capsaicin] 1 appl TP QID PRN 08/27/18 [History] Carboxymethylcellulose Sodium [Refresh Liquigel] 1 drop BOTH EYES TID 08/27/18 [History] Cholecalciferol (Vitamin D3) [Vitamin D3] 2,000 unit PO DAILY 08/27/18 [History] Metoprolol Succinate [Toprol Xl] 12.5 mg PO DAILY 08/27/18 [History] NALOXONE 4 MG Nasal [place] [Narcan] 4 mg NS AD 08/27/18 [History] Polyethylene Glycol 3350 [Natura-Lax] 17 gm PO DAILY PRN 08/27/18 [History] Potassium Chloride [Klor-Con 10] 40 meq PO DAILY 08/27/18 [History] Saline Nasal [place] [Covel Nasal [place]] 2 spray NS Q2H PRN 08/27/18 [History] Simethicone [Gas-X] 80 mg PO TID PRN 08/27/18 [History] Trazodone HCl 200 mg PO HS 08/27/18 [History] metOLazone [Zaroxolyn] 5 mg PO AD PRN 08/27/18 [History] Docusate [Colace] 300 mg PO HS 09/17/18 [History] Fluticasone Propionate Nasal [Flonase] 1 spray NS BID PRN 09/17/18 [History] Rivaroxaban [Xarelto] 15 mg PO DAILY 09/17/18 [History] Sennosides [Senokot] 17.2 mg PO BID PRN 09/17/18 [History] Tizanidine HCl 2 mg PO BID PRN 09/17/18 [History] Fludrocortisone Acetate [Florinef] 0.1 mg PO DAILY 30 Days #30 tablet 09/19/18 [Rx] Hydrocortisone 10 mg PO DAILY 15 Days #15 tablet 09/19/18 [Rx] Hydrocortisone [Cortef] 5 mg PO DAILY 15 Days #15 tablet 09/19/18 [Rx] Allergies/Adverse Reactions: Allergy/AdvReac Type Severity Reaction Status Date / Time IVP DYE Allergy Severe Anaphylaxis Uncoded 09/17/18 12:04 Date of admission: 09/16/18 07:20 Primary care physician: PCP NONE Consults: 09/16/18 05:35 Consult to Nephrology [CONS] Stat Consulting Provider: Kidney Sujatha/OTTO/JESSICA/BENITO Reason for Consult: AG Time Notified: 05:35 Call Completed: Yes 09/18/18 07:10 Consult to Physical Therapy [CONS] Routine Comment: Evaluate, develop and implement POC Reason for Consult: Mobilization, Does patient have active BEDREST order?: No Is patient medically & hemodynamically stable?: Yes Patient assessed for mobility or mobilized this visit?: No Discharging clinician: Amy Armstrong - Constitutional Vitals: Temp Pulse Resp BP Pulse Ox 98.2 F 94 15 144/77 92 09/19/18 11:02 09/19/18 11:02 09/19/18 11:02 09/19/18 11:02 09/19/18 11:02 Exam: General: In no acute distress. Respiratory exam: CTAB. no accessory muscle use, rales, rhonchi, wheezes Cardiovascular exam: RRR, +S1, +S2. no murmur, gallop, rubs. GI/Abdominal exam: Non-tender, Non-distended, normal bowel sounds, soft, no peritoneal signs. Extremities exam: full ROM, trace pedal edema, warm, no calf tenderness Neurological exam: CN II-XII intact, AO X3, no focal deficits. Skin exam: No skin rash - Patient Status Disposition: Home, Self-Care Condition: Fair - Discharge Instructions Follow Up With: [facility] [Outside] - Diet and Activity Activity: increase activity as tolerated
--- NOTE | 2018-09-19 14:35 | Physician Discharge Referral ---
Home Health/Hosp Referral Info Transfer to: Home Health - Diagnosis (1) Acute kidney injury superimposed on chronic kidney disease Status: Acute (2) Hyperkalemia Status: Resolved (3) Hypocortisolism Status: Acute (4) Hypotension Status: Acute (5) A-fib Status: Acute (6) Diabetes Status: Acute (7) CAD (coronary artery disease) Status: Acute (8) Abdominal distension Status: Acute (9) Systolic heart failure Status: Acute - Respiratory Orders Smoking Cessation: Smoking cessation has been advised. For more information, call the [place] Tobacco Quit Line at 4-483-DSPY-NOW. - Services Needed Following services are medically necessary services: Nursing, Physical Therapy - Transfer Medications Prescriptions: Fludrocortisone Acetate [Florinef] 0.1 mg PO DAILY 30 Days #30 tablet Hydrocortisone 10 mg PO DAILY 15 Days #15 tablet Hydrocortisone [Cortef] 5 mg PO DAILY 15 Days #15 tablet Home Medications: Amiodarone [Cordarone] 200 mg PO DAILY 04/04/18 [History] Aspirin 81 mg PO DAILY 04/04/18 [History] Finasteride [Proscar] 5 mg PO DAILY 04/04/18 [History] Lubiprostone [Amitiza] 16 mcg PO BIDWM 04/04/18 [History] Pantoprazole Sodium [Protonix] 40 mg PO DAILY@0730 04/04/18 [History] Tamsulosin HCl [Flomax] 0.4 mg PO BID 04/04/18 [History] Tiotropium Br/Olodaterol HCl [Stiolto Respimat Inhal [place]] 2 puff IH DAILY 04/24/18 [History] Insulin ASPART [NovoLOG] 0 unit SQ TIDAC MDD PER SLIDING SCALE 04/25/18 [History] Fluticasone/Salmeterol [Advair 250-50 Diskus] 1 puff IH BID 06/30/18 [History] Gabapentin [Neurontin] 400 mg PO BID 06/30/18 [History] Acetaminophen [Tylenol] 650 mg PO Q6HR PRN 07/26/18 [History] Atorvastatin Calcium [Lipitor] 40 mg PO DAILY 07/26/18 [History] DiphenhydraMINE [Benadryl] 25 mg PO HS PRN 07/26/18 [History] Furosemide [Lasix] 20 mg PO DAILY 08/09/18 [History] Capsaicin [High Potency Capsaicin] 1 appl TP QID PRN 08/27/18 [History] Carboxymethylcellulose Sodium [Refresh Liquigel] 1 drop BOTH EYES TID 08/27/18 [History] Cholecalciferol (Vitamin D3) [Vitamin D3] 2,000 unit PO DAILY 08/27/18 [History] Metoprolol Succinate [Toprol Xl] 12.5 mg PO DAILY 08/27/18 [History] NALOXONE 4 MG Nasal [place] [Narcan] 4 mg NS AD 08/27/18 [History] Polyethylene Glycol 3350 [Natura-Lax] 17 gm PO DAILY PRN 08/27/18 [History] Potassium Chloride [Klor-Con 10] 40 meq PO DAILY 08/27/18 [History] Saline Nasal [place] [[place] Nasal [place]] 2 spray NS Q2H PRN 08/27/18 [History] Simethicone [Gas-X] 80 mg PO TID PRN 08/27/18 [History] Trazodone HCl 200 mg PO HS 08/27/18 [History] metOLazone [Zaroxolyn] 5 mg PO AD PRN 08/27/18 [History] Docusate [Colace] 300 mg PO HS 09/17/18 [History] Fluticasone Propionate Nasal [Flonase] 1 spray NS BID PRN 09/17/18 [History] Rivaroxaban [Xarelto] 15 mg PO DAILY 09/17/18 [History] Sennosides [Senokot] 17.2 mg PO BID PRN 09/17/18 [History] Tizanidine HCl 2 mg PO BID PRN 09/17/18 [History] Fludrocortisone Acetate [Florinef] 0.1 mg PO DAILY 30 Days #30 tablet 09/19/18 [Rx] Hydrocortisone 10 mg PO DAILY 15 Days #15 tablet 09/19/18 [Rx] Hydrocortisone [Cortef] 5 mg PO DAILY 15 Days #15 tablet 09/19/18 [Rx] Allergies/Adverse Reactions: Allergy/AdvReac Type Severity Reaction Status Date / Time IVP DYE Allergy Severe Anaphylaxis Uncoded 09/17/18 12:04 Certification: Further, I certify that my clinical findings support that this patient is homebound (i.e. absences from home require considerable and taxing effort and are for medical reasons or bahai services or infrequently or short duration when for other reasons) because: Homebound Reason: Patient requires assistance of a person or device to safely leave home Attestation: My signature below is to certify that this patient is under my care and that I, or nurse practitioner, or a physician's respiratory therapy assistant working with me, has a [id number] encounter with this patient.
[2018-09-19] MEDS: *HR* Rivaroxaban 15 MG TABLET PO SCH (16:24)
--- NOTE | 2018-09-21 07:45 | Electrocardiograph Report ---
[place] [id number] Test Date: 2018-09-16 Pat Name: Dakota Issa Department: EXAM4 Room: 3A23 Gender: M Stitchdown Toe Former: : 1950 Requested By: Marito Freeman Order Number: [id number] Reading MD: Dilshad Flood Measurements Intervals [place] Rate: 64 P: MD: QRS: 58 QRSD: 113 T: 62 QT: 447 QTc: 462 Interpretive Statements Probable sinus rhythm with a first degree AV block Incomplete right bundle branch block Low voltage, precordial leads Minimal ST elevation, inferior leads (similar to prior ECGs) Electronically Signed On 09-21-2018 7:44:13 EDT by Dilshad Flood
--- NOTE | 2018-09-21 07:48 | Electrocardiograph Report ---
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
== END 2018-09-19 18:02 | disposition home health service (06) | DRG 315 ==
LOC: EMEROOARM 01:08 → SUATTDRO 07:20 → ICNU 07:20 → 3ANU 09-18 15:59
PROVIDERS: ADMIT Internal Medicine Hospice and Palliative Medicine; ATTEND Internal Medicine

== ENCOUNTER 2018-10-08 15:43 | Inpatient (IN) ==
[2018-10-08] MEDS ORDERED: *HR* Midazolam HCl 2 MG/2 ML VIAL ONE (15:51)
[2018-10-08] MEDS ORDERED: methylPREDNISolone 125 MG/2 ML VIAL ONE (15:51)
[2018-10-08] MEDS ORDERED: Naloxone 0.4 MG/ML INJ IVP PRN (16:28)
[2018-10-08] MEDS ORDERED: 0.9 % Sodium Chloride 1,000 ML IVC SCH (16:30)
--- NOTE | 2018-10-08 16:44 | Cardiology History & Physical ---
Date of Encounter: 10/08/18 Time of Encounter: 16:40 History of Present Illness Chief complaint: chest pain HPI: Mr. Issa is a 68 year old male 68 year old male with atrial fib and recent admission for hypotension presenting after [facility] called at [facility]. Also has permanent pacer. Last admission resulted in renal faliure diagnosis and notes of adrenal insuff. [place] and lisinopril was still listed. Was hypotensive on arrival and taken to laborer [place] after ekg showed inferior injury but atrial paced. Labs not available on admission. Cath showed normal cors and ef 40%. BRENDEN held Metoprolol dose decreased. Labs pending. Medicine service to assist with general medicine issues. Xarelto restarted but with normal cors will stop aspirin. Past Med Surg Social Fam HX - Past Medical History Medical history: arthritis, atrial fibrillation, CHF, COPD, coronary artery disease, CVA, diabetes, GERD, hyperlipidemia, hypertension, pulmonary embolus, renal disease, other Additional medical history: Pacemaker, emphysema, sick sinus syndrome. chronic knee pain. 3 CVA's. Last CVA April 2018. Psychiatric history: anxiety, depression, panic disorder, PTSD, previous psychiatric hospitalization - Past Surgical History Surgical History: cholecystectomy, herniorrhaphy, knee replacement, orthopedic, other, pacemaker/AICD Additional surgical history: Right knee replacement. Cardiac Ablasion 2014. left arm - Social History Smoking Status: Former smoker Smokeless Tobacco Status: No Alcohol use: none Drug use: none - Family History Father Adopted: No Family Member Ethnicity: Non- Living Status: Hx Family Cardiac Disorders: No Hx Family Respiratory Disorders: No Hx Family Cancer: Yes Hx Family GI Disorders: No Hx Family Endocrine Disorder: No Hx Family Neuromuscular Disorders: No Hx Family Neurologic Disorders: No Hx Family HEENT Disorders: No Hx Family Autoimmune Disorders: No Brother Family Member Ethnicity: Non- Living Status: Still Living Sister Family Member Ethnicity: Non- Living Status: Still Living Mother Adopted: No Family Member Ethnicity: Non- Twin of Family Member: Yes Living Status: Hx Family Cardiac Disorders: Yes Hx Family Respiratory Disorders: No Hx Family Cancer: No Hx Family GI Disorders: No Hx Family Endocrine Disorder: No Hx Family Neuromuscular Disorders: No Hx Family Neurologic Disorders: No Hx Family HEENT Disorders: No Hx Family Autoimmune Disorders: No Medications and Allergies Amiodarone [Cordarone] 200 mg PO DAILY 04/04/18 [History] Aspirin 81 mg PO DAILY 04/04/18 [History] Finasteride [Proscar] 5 mg PO DAILY 04/04/18 [History] Lubiprostone [Amitiza] 16 mcg PO BIDWM 04/04/18 [History] Pantoprazole Sodium [Protonix] 40 mg PO DAILY@0730 04/04/18 [History] Tamsulosin HCl [Flomax] 0.4 mg PO BID 04/04/18 [History] Tiotropium Br/Olodaterol HCl [Stiolto Respimat Inhal [place]] 2 puff IH DAILY 04/24/18 [History] Insulin ASPART [NovoLOG] 0 unit SQ TIDAC MDD PER SLIDING SCALE 04/25/18 [History] Fluticasone/Salmeterol [Advair 250-50 Diskus] 1 puff IH BID 06/30/18 [History] Gabapentin [Neurontin] 400 mg PO BID 06/30/18 [History] Acetaminophen [Tylenol] 650 mg PO Q6HR PRN 07/26/18 [History] Atorvastatin Calcium [Lipitor] 40 mg PO DAILY 07/26/18 [History] DiphenhydraMINE [Benadryl] 25 mg PO HS PRN 07/26/18 [History] Furosemide [Lasix] 20 mg PO DAILY 08/09/18 [History] Capsaicin [High Potency Capsaicin] 1 appl TP QID PRN 08/27/18 [History] Carboxymethylcellulose Sodium [Refresh Liquigel] 1 drop BOTH EYES TID 08/27/18 [History] Cholecalciferol (Vitamin D3) [Vitamin D3] 2,000 unit PO DAILY 08/27/18 [History] Metoprolol Succinate [Toprol Xl] 12.5 mg PO DAILY 08/27/18 [History] NALOXONE 4 MG Nasal [place] [Narcan] 4 mg NS AD 08/27/18 [History] Polyethylene Glycol 3350 [Natura-Lax] 17 gm PO DAILY PRN 08/27/18 [History] Potassium Chloride [Klor-Con 10] 40 meq PO DAILY 08/27/18 [History] Saline Nasal [place] [[place] Nasal [place]] 2 spray NS Q2H PRN 08/27/18 [History] Simethicone [Gas-X] 80 mg PO TID PRN 08/27/18 [History] Trazodone HCl 200 mg PO HS 08/27/18 [History] metOLazone [Zaroxolyn] 5 mg PO AD PRN 08/27/18 [History] Docusate [Colace] 300 mg PO HS 09/17/18 [History] Fluticasone Propionate Nasal [Flonase] 1 spray NS BID PRN 09/17/18 [History] Rivaroxaban [Xarelto] 15 mg PO DAILY 09/17/18 [History] Sennosides [Senokot] 17.2 mg PO BID PRN 09/17/18 [History] Tizanidine HCl 2 mg PO BID PRN 09/17/18 [History] Fludrocortisone Acetate [Florinef] 0.1 mg PO DAILY 30 Days #30 tablet 09/19/18 [Rx] Allergy/AdvReac Type Severity Reaction Status Date / Time IVP DYE Allergy Severe Anaphylaxis Uncoded 09/17/18 12:04 All Systems Review: The remainder of the systems were reviewed and are negative - VTE Reasons for not Prescribing Prophylaxis: Not indicated-Anticoagulated or INR therapeutic
--- NOTE | 2018-10-08 16:45 | Event Note ---
Date of Encounter: 10/08/18 Time of Encounter: 16:44 - Cardiology Event Note cath completed normal coronary arteries LVEF 40-45%
--- NOTE | 2018-10-08 16:59 | Invasive Diagnostic Lab Proc ---
Name: Dakota Issa Date of Study: 10/08/2018 Date: 1950 Ht: 74.0in Medical Record#: [id number] Age: 68 Wt: 268.96lb Gender: Male BSA: 2.47 Order #: [id number] BMI: 34.52 Physicians Procedure Physician: Venkat Edwards MD Referring MD: Referring MD: Staff Name Position Time In Summer Prasad RT (R) House Detective 03:55 PM Chandler Fleming RN House Detective 03:55 PM Caprice Emerson RT (R) Scrub 03:55 PM Procedures Performed Procedure L HRT ARTERY/VENTRICLE ANGIO Pre-Procedure Checklist Informed consent is complete signed and on chart. H&P is on chart. ID band is on and ID verified with patient. Patient NPO for procedure The procedure was described for the patient and questions were answered. Blood Pressure: 114/72 ECG is on chart. Rhythm: A paced Plan of Care Patient will tolerate the procedure without complications. Adequate level of comfort will be maintained. Hemodynamics will remain stable Patient will recover from procedure without complications. Respiratory function will be maintained. Cardiac rhythm will remain stable. Patient temperature will be maintained. Patient and/or family have verbalized understanding of the procedure. Patient Education Intravenous Access Time IV Size Location DC'd Fluid/Drip Rate Units RN 04:03 PM 20g 1 1/4" Patent On Arrival Rt Antecubital 0.9NaCl mg/hr 04:03 PM 20g 1 1/4" Patent On Arrival Lt Wrist Allergies IVP DYE Vital Signs Time BP (mmHg) HR (bpm) O2 Sat. RR (bpm) LOC 04:01 PM 114 / 72 81 93 % 15 4 = Oriented but drowsy 04:01 PM / % 4 = Oriented but drowsy 03:59 PM 114 / 72 120 % 04:04 PM 95 / 61 72 92 % 14 04:09 PM 78 / 48 61 90 % 04:11 PM 82 / 50 60 93 % 24 04:13 PM 76 / 48 61 94 % 15 04:14 PM 78 / 57 61 94 % 26 04:16 PM 82 / 56 60 94 % 04:19 PM 91 / 51 60 97 % 18 04:45 PM 80 / 56 64 92 % 12 4 = Oriented but drowsy Procedural Medications Time Medication Dose Units Method Given By 04:00 PM Oxygen 2 L/min nasal cannula Chandler Fleming RN 04:00 PM Versed 2 mg Intravenous Chandler Fleming RN 04:00 PM Benadryl 50 mg Intravenous Chandler Fleming RN 04:01 PM Solu-medrol 125 mg Intravenous Chandler Fleming RN 04:05 PM Lidocaine 2% 10 ml Subcutaneous Venkat Edwards MD Tai Score Preprocedure Postprocedure Activity 2- Moves 4 extremities sustained head lift Activity 2- Moves 4 extremities sustained head lift Circulation 2- SBP +/= 20 points of pre-anesthetic level Circulation 2- SBP +/= 20 points of pre-anesthetic level Consciousness 2- Awake and alert oriented x 3 Consciousness 2- Awake and alert oriented x 3 O2 Saturation 2- Able to maintain O2 satruation of 92% on room air O2 Saturation 2- Able to maintain O2 satruation of 92% on room air Respiratory 2- Able to deep breathe and cough well Respiratory 2- Able to deep breathe and cough well Total Score 10 Total Score 10 Contrast Agent: Isovue Diagnostic Contrast: 75 ml Total Contrast: 75 ml Fluoro Dose: 4 mGy Procedure Log Time Note Enter By 03:54 PM CathStat 03:55 PM Pt arrived to mini lab operator 2 at 15:55 [email or web address] 03:55 PM Summer Prasad RT (R) Position: House Detective Time in: 15:55 [email or web address] 03:55 PM Chandler Fleming RN Position: House Detective Time in: 15:55 [email or web address] 03:55 PM Caprice Emerson RT (R) Position: Scrub Time in: 15:55 [email or web address] 03:55 PM Patient charges- Angio tray pack, Navilyst 3mm J, Pulse Oximetry and ACIST tubing and transducer [email or web address] 03:55 PM Case Delayed No [email or web address] 03:58 PM Vitals capture started with the following parameters, Patient=Adult, Interval=5 min, Initial Fssvrpfz=461 mmHg, Deflation Rate=5 mmHg, Cuff placed on Right Arm 03:59 PM YL=656 bpm, PPHO=242/72 mmhg 04:00 PM Physician arrived 16:00 [email or web address] 04:00 PM Suhail and jocelyn completed [email or web address] 04:00 PM Sign in performed according to hospital policy. Informed consent was obtained. [email or web address] 04:00 PM Procedure start 16:00 [email or web address] 04:00 PM Time: 16:00 Oxygen on at 2 L/min per nasal cannula by Chandler Fleming RN [email or web address] 04:00 PM Time: 16:00 Versed 2 mg Intravenous Given by Chandler Fleming [email or web address] 04:01 PM Time: 16:00 Benadryl 50 mg Intravenous Given by Chandler Fleming [email or web address] 04:01 PM Time: 16:01 Solu-medrol 125 mg Intravenous Given by Chandler Fleming [email or web address] 04:01 PM Time: 16:01 Patient comfortable and pain free: Yes [email or web address] 04:01 PM Time: 16:01LOC: 4 = Oriented but drowsy [email or web address] 04:04 PM Time out was performed according to hospital policy. Conscious sedation and anesthesia was achieved (see medication log with in this report above) [email or web address] 04:04 PM HR=72 bpm, NIBP=95/61 mmhg, SpO2=92.0 %, Resp=14 B/min 04:05 PM Recorded ECG: HR=69 Condition=Condition 1 04:05 PM Time: 16:05 10 ml Lidocaine 2% to right groin Subcutaneous Given by Venkat Edwards MD [email or web address] 04:05 PM Access obtained by percutaneous puncture. 6Fr 10cm Terumo [place] sheath placed in right Femoral artery. [id number] [email or web address] 04:06 PM Pressure channel 2 zeroed. 04:07 PM 5Fr FL 4 catheter inserted over the wire [facility] [email or web address] 04:07 PM 0.035 145cm Navilyst 3mmJ wire [id number] [email or web address] 04:08 PM Recorded Pressure: Ao, HR=62, Condition=Condition 1 (Aorta) Ao 65/36/49 04:08 PM LCA angiography performed in multiple views. [email or web address] 04:09 PM Catheter removed [email or web address] 04:09 PM HR=61 bpm, NIBP=78/48 mmhg, SpO2=90.0 % 04:09 PM 5Fr FR 4 catheter inserted over the wire [facility] [email or web address] 04:10 PM NIBP STAT measurement started. 04:11 PM HR=60 bpm, NIBP=82/50 mmhg, SpO2=93.0 %, Resp=24 B/min 04:12 PM Recorded Pressure: Ao, HR=60, Condition=Condition 1 (Aorta) Ao 64/34/47 04:12 PM RCA angiography performed in multiple views. [email or web address] 04:12 PM Coronary Dominance: right [email or web address] 04:12 PM Catheter removed [email or web address] 04:12 PM NIBP STAT measurement started. 04:12 PM 5Fr Pigtail catheter inserted over the wire [facility] [email or web address] 04:12 PM Catheter crossed the aortic valve and was selectively placed in the left ventricle. Pressures recorded on pullback for left heart catheterization. [email or web address] 04:13 PM HR=61 bpm, NIBP=76/48 mmhg, SpO2=94.0 %, Resp=15 B/min 04:13 PM Recorded Pressure: LV, HR=61, Condition=Condition 1 (Left Ventricle) LV 66/1/9 04:14 PM Recorded Pressure: LV, HR=61, Condition=Condition 1 (Left Ventricle) LV 72/5/15 04:14 PM Bolus angiogram of left Ventricle complete: 12 ml/sec for a total of 36 mls [email or web address] 04:14 PM HR=61 bpm, NIBP=78/57 mmhg, SpO2=94.0 %, Resp=26 B/min 04:14 PM Recorded Pressure: LV, Ao, HR=61, Condition=Condition 1 (Left Ventricle) LV 75/-37/12, (Aorta) Ao 70/33/48 04:15 PM Catheter removed [email or web address] 04:15 PM Bolus angiogram of right Femoral complete: 4 ml/sec for a total of 7 mls [email or web address] 04:15 PM NIBP STAT measurement started. 04:16 PM HR=60 bpm, NIBP=82/56 mmhg, SpO2=94.0 % 04:16 PM Time: 16:01 Patient comfortable and pain free: [email or web address] 04:16 PM Time: 16:01LOC: 4 = Oriented but drowsy [email or web address] 04:18 PM Procedure completed at 16:18 10/08/2018 [email or web address] 04:18 PM Did you address TYSHAWN flow and Dominance? Yes [email or web address] 04:19 PM Sign out completed: Radiation Dose 395.79 mGy, 3.59 Gy/cm2 Fluoro Time: 2.5 Isovue 370 - 200ml contrast 75 ml given by Venkat Edwards MD. Complications: None. The patient was discharged out of the filling station laborer in stable condition. Sedation minutes 20. Cardiac Rehab Consult needed: No. Confirmed administered medications: Yes [email or web address] 04:19 PM HR=60 bpm, NIBP=91/51 mmhg, SpO2=97.0 %, Resp=18 B/min 04:19 PM Isovue 370 - 200ml,1 Bottle(s) used. [email or web address] 04:20 PM Arterial sheath pulled, Perclose closure device used and was Successful S/N. [email or web address] 04:20 PM Estimated Blood Loss: minimal [email or web address] 04:21 PM Post ECG A paced [email or web address] 04:23 PM Post Blood Pressure 91/51 [email or web address] 04:23 PM Information taught Cardiac Cath and Perclose [email or web address] 04:23 PM Education needs Procedure, Plan of Care, and Disease Process [email or web address] 04:23 PM Learning barriers :None [email or web address] 04:23 PM Education Methods Verbal [email or web address] 04:23 PM Education evaluation Able to repeat information [email or web address] 04:23 PM Family placed in consult room. [email or web address] 04:23 PM Complications: None [email or web address] 04:29 PM Site status No bleeding/hematoma - Rt Groin as reported by Sites, Caprice RT (R) at 16:29 [email or web address] 04:43 PM Patient out of room: 16:43 [email or web address] 04:43 PM Report given to Yesica CHENG Pt taken to 2A Room #35. 16:43 [email or web address] Complications Complication None Hemodynamics Pressures Site Systolic/A Wave Diastolic/V Wave Mean AO 65 36 49 AO 64 34 47 LV 66 1 9 LV 72 5 15 LV 75 -37 12 AO 70 33 48 Post Procedure Information Blood Pressure: 91/51 mmHg Rhythm: A paced Post procedural instructions were given Closure Device Time Device Success/Fail 10/08/2018 4:20:00 PM Perclose ProGlide Successful Site Checks Time Location Status Staff Sheath In? Note 04:20 PM Rt Groin No bleeding/hematoma Sites, Caprice RT (R) 04:45 PM Rt Groin No bleeding/ No Hematoma Chandler Fleming RN Pulses Time Site Pre-Procedure Post-Procedure Note 10/08/2018 4:00:00 PM Bilateral DP & PT 1+ 1+ Updated by Summer Prasad RT(R) on 10/08/2018 4:51:54 PM electronically signed on 10/08/2018 4:52:54 PM with status of Final
[2018-10-08] MEDS ORDERED: *HR* Dextrose 50 % in Water (Syg) 50 ML SYRINGE IVP PRN (17:50)
[2018-10-08] MEDS ORDERED: D5% in Water 1,000 ML IVC PRN (17:50)
[2018-10-08] MEDS ORDERED: Dextrose Gel 15 GM/37.5 ML TUBE PO PRN ×2 (17:50)
--- NOTE | 2018-10-08 18:17 | Internal Medicine Consult Note ---
Date of Encounter: 10/08/18 Time of Encounter: 18:10 - Assessment and Plan (1) Syncope Current Visit: Yes Status: Acute Assessment and plan: Patient had one episode of syncope prior to admission. BP was low upon arrival, EKG has ST-T elevation on leads II, III, and aVF. Agent was taken for emergent heart catheter, however, his coronary artery was normal. He has been diagnosis with adrenal insufficiency recently, was on steroid replacement, currently off steroids for unkown reason. Etiology remained undetermined. Adrenal insufficiency is likely the culprit. Patient BP currently stable at 100-110. May give IV fluid and IV steroid if patient BP deteriorates. ACTH stimulation test ordered in the morning. His EKG showed atrial paced rhythm, telemetry showed in no malignant arrhythmia. Continue telemetry monitoring, EKG as needed Hold all BP meds for now, we will adjust accordingly depending on patient condition. Qualifiers: Syncope type: unspecified Qualified Code(s): R55 - Syncope and collapse (2) Obesity (BMI 30.0-34.9) Current Visit: No Status: Chronic Assessment and plan: Weight control discussed with patient. (3) Paroxysmal a-fib Current Visit: No Status: Chronic Assessment and plan: Continue home 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 with Xarelto. Currently atrial paced rhythm. (4) CAD (coronary atherosclerotic disease) Current Visit: No Status: Chronic Assessment and plan: Normal cardiac catheter, patient has no chest pain, troponin was negative. Continue home medication. Qualifiers: Coronary Disease-Associated Artery/Lesion type: [place] artery [place] vs. transplanted heart: [place] heart Associated angina: without angina Qualified Code(s): I25.10 - Atherosclerotic heart disease of [place] coronary artery without angina pectoris (5) Pacemaker Current Visit: No Status: Chronic Assessment and plan: Atrial paced rhythm. (6) COPD (chronic obstructive pulmonary disease) Current Visit: No Status: Chronic Assessment and plan: No respiratory distress, continue home medication. Qualifiers: COPD type: unspecified COPD Qualified Code(s): J44.9 - Chronic obstructive pulmonary disease, unspecified (7) Diabetes mellitus Current Visit: No Status: Chronic Assessment and plan: Started patient on insulin sliding scale. Qualifiers: Diabetes mellitus type: type 2 Diabetes mellitus vice president of compliance insulin use: without vice president of compliance use Diabetes mellitus complication status: with kidney complications Diabetes mellitus complication detail: with chronic kidney disease Chronic kidney disease stage: stage 3 (moderate) Qualified Code(s): E11.22 - Type 2 diabetes mellitus with diabetic chronic kidney disease; N18.3 - Chronic kidney disease, stage 3 (moderate) (8) CKD (chronic kidney disease) Current Visit: No Status: Chronic Assessment and plan: Creatinine is stable at the baseline. Qualifiers: Chronic kidney disease stage: unspecified stage Qualified Code(s): N18.9 - Chronic kidney disease, unspecified (9) CHF (congestive heart failure) Current Visit: No Status: Chronic Assessment and plan: Volume status stable, at the baseline, continue current treatment. Qualifiers: Heart failure type: unspecified Heart failure chronicity: chronic Qualified Code(s): I50.9 - Heart failure, unspecified (10) DVT prophylaxis Current Visit: Yes Status: Acute Assessment and plan: Continue home xarelto. - Time Spent With Patient Total time spent is greater than 50% in coordination of care (as documented) at patient's floor/unit and/or counseling patient: Greater than 35 minutes Internal Medicine - CN: HPI - Data of Consult Patient: known to practice within the last 3 years Requesting Physician: Venkat Edwards MD - Consult Narrative History of present illness: Mr. Issa is a 68 year old male with past medical history significant for CAD, atrial fibrillation, CHF, diabetes, and hypertension who was transferred from [place] [facility] after a syncopal episode. Per patient and her family, he feel dizzy and lightheaded at the clinic, and then he passed out for 1-2 minutes. He was immediately transferred to this hospital for further evaluation. His blood pressure was notably low upon arrival, EKG showed ST-T elevation in inferior leads. STEMI was called and patient was taken to the Assisted Living Administrator. The catheter report showed normal coronary arteries. Patient was admitted by cardiology service, hospitalist group was consulted for medical management. Patient is well known to our service, he has been admitted for multiple times in the past for CHF exacerbation. He has been diagnosis with adrenal gland insufficiency recently and was placed on steroid replacement. Per family, he has completed a course of treatment and the currently is not on steroids. He also on Lasix for CHF, however per family, Lasix dose has been reduced because of renal failure and the improved volume overload. He currently denies any fever, chills, or night sweats. He has no chest pain, shortness breath, or palpitation. He denies any abdominal pain, nausea, vomiting, or diarrhea. He has no urinary symptoms. Past Med Surg Social Fam HX - Past Medical History Medical history: arthritis, atrial fibrillation, CHF, COPD, coronary artery disease, CVA, diabetes, GERD, hyperlipidemia, hypertension, pulmonary embolus, renal disease, other Additional medical history: Pacemaker, emphysema, sick sinus syndrome. chronic knee pain. 3 CVA's. Last CVA April 2018. Psychiatric history: anxiety, depression, panic disorder, PTSD, previous psychiatric hospitalization - Past Surgical History Surgical History: cholecystectomy, herniorrhaphy, knee replacement, orthopedic, other, pacemaker/AICD Additional surgical history: Right knee replacement. Cardiac Ablasion 2014. left arm - Social History Smoking Status: Former smoker Smokeless Tobacco Status: No Alcohol use: none Drug use: none - Family History Father Adopted: No Family Member Ethnicity: Non- Living Status: Hx Family Cardiac Disorders: No Hx Family Respiratory Disorders: No Hx Family Cancer: Yes Hx Family GI Disorders: No Hx Family Endocrine Disorder: No Hx Family Neuromuscular Disorders: No Hx Family Neurologic Disorders: No Hx Family HEENT Disorders: No Hx Family Autoimmune Disorders: No Brother Family Member Ethnicity: Non- Living Status: Still Living Sister Family Member Ethnicity: Non- Living Status: Still Living Mother Adopted: No Family Member Ethnicity: Non- Twin of Family Member: Yes Living Status: Hx Family Cardiac Disorders: Yes Hx Family Respiratory Disorders: No Hx Family Cancer: No Hx Family GI Disorders: No Hx Family Endocrine Disorder: No Hx Family Neuromuscular Disorders: No Hx Family Neurologic Disorders: No Hx Family HEENT Disorders: No Hx Family Autoimmune Disorders: No Review of systems: REVIEW OF SYSTEMS: CONSTITUTIONAL: No weight loss, fever, chills, weakness or fatigue. HEENT: Eyes: No visual loss, blurred vision, double vision or yellow sclerae. Ears, Nose, Throat: No hearing loss, sneezing, congestion, runny nose or sore throat. SKIN: No rash or itching. CARDIOVASCULAR: see HPI. RESPIRATORY: No shortness of breath, cough or sputum. GASTROINTESTINAL: No anorexia, nausea, vomiting or diarrhea. No abdominal pain or blood. GENITOURINARY: No dysuria, urgency, or frequency. NEUROLOGICAL: No headache, dizziness, syncope, paralysis, ataxia, numbness or tingling in the extremities. No change in bowel or bladder control. MUSCULOSKELETAL: No muscle, back pain, joint pain or stiffness. HEMATOLOGIC: No anemia, bleeding or bruising. LYMPHATICS: No enlarged nodes. No history of splenectomy. PSYCHIATRIC: No history of depression or anxiety. ENDOCRINOLOGIC: No reports of sweating, cold or heat intolerance. No polyuria or polydipsia. Internal Medicine - CN: Meds Amiodarone [Cordarone] 200 mg PO DAILY 04/04/18 [History] Aspirin 81 mg PO DAILY 04/04/18 [History] Finasteride [Proscar] 5 mg PO DAILY 04/04/18 [History] Lubiprostone [Amitiza] 16 mcg PO BIDWM 04/04/18 [History] Pantoprazole Sodium [Protonix] 40 mg PO DAILY@0730 04/04/18 [History] Tamsulosin HCl [Flomax] 0.4 mg PO BID 04/04/18 [History] Tiotropium Br/Olodaterol HCl [Stiolto Respimat Inhal [place]] 2 puff IH DAILY [History] Insulin ASPART [NovoLOG] 0 unit SQ TIDAC MDD PER SLIDING SCALE 04/25/18 [History] Fluticasone/Salmeterol [Advair 250-50 Diskus] 1 puff IH BID 06/30/18 [History] Gabapentin [Neurontin] 400 mg PO BID 06/30/18 [History] Acetaminophen [Tylenol] 650 mg PO Q6HR PRN 07/26/18 [History] Atorvastatin Calcium [Lipitor] 40 mg PO DAILY 07/26/18 [History] DiphenhydraMINE [Benadryl] 25 mg PO HS PRN 07/26/18 [History] Furosemide [Lasix] 20 mg PO DAILY 08/09/18 [History] Capsaicin [High Potency Capsaicin] 1 appl TP QID PRN 08/27/18 [History] Carboxymethylcellulose Sodium [Refresh Liquigel] 1 drop BOTH EYES TID 08/27/18 [History] Cholecalciferol (Vitamin D3) [Vitamin D3] 2,000 unit PO DAILY 08/27/18 [History] Metoprolol Succinate [Toprol Xl] 12.5 mg PO DAILY 08/27/18 [History] NALOXONE 4 MG Nasal [place] [Narcan] 4 mg NS AD 08/27/18 [History] Polyethylene Glycol 3350 [Natura-Lax] 17 gm PO DAILY PRN 08/27/18 [History] Potassium Chloride [Klor-Con 10] 40 meq PO DAILY 08/27/18 [History] Saline Nasal [place] [Breathitt Nasal [place]] 2 spray NS Q2H PRN 08/27/18 [History] Simethicone [Gas-X] 80 mg PO TID PRN 08/27/18 [History] Trazodone HCl 200 mg PO HS 08/27/18 [History] metOLazone [Zaroxolyn] 5 mg PO AD PRN 08/27/18 [History] Docusate [Colace] 300 mg PO HS 09/17/18 [History] Fluticasone Propionate Nasal [Flonase] 1 spray NS BID PRN 09/17/18 [History] Rivaroxaban [Xarelto] 15 mg PO DAILY 09/17/18 [History] Sennosides [Senokot] 17.2 mg PO BID PRN 09/17/18 [History] Tizanidine HCl 2 mg PO BID PRN 09/17/18 [History] Fludrocortisone Acetate [Florinef] 0.1 mg PO DAILY 30 Days #30 tablet 09/19/18 [Rx] Allergy/AdvReac Type Severity Reaction Status Date / Time IVP DYE Allergy Severe Anaphylaxis Uncoded 09/17/18 12:04 Hospitalist - CN: Exam - Constitutional Vitals: Temp Pulse Resp BP Pulse Ox 97.6 F 83 17 93/58 98 10/08/18 17:16 10/08/18 17:16 10/08/18 17:16 10/08/18 17:16 10/08/18 17:16 General appearance IM: Present: A&O X 3 Exam: PHYSICAL EXAMINATION: GENERAL APPEARANCE: The patient is alert, oriented and in no acute distress. HEENT: Head is normocephalic. The sinuses are nontender. Pupils are equal and reactive. The nares are patent. Oropharynx clear without lesions. NECK: Supple without lymphadenopathy. HEART: Regular rate and rhythm. LUNGS: No crackles or wheezes are heard. ABDOMEN: Soft, nontender, nondistended with good bowel sounds heard. Inguinal area is normal. EXTREMITIES: 2+ edema at BLE. NEUROLOGICAL: Gross nonfocal. SKIN: Warm and dry without any rash. Consult Discharge Plan - Plan [facility]errals: [facility] [Primary Care Provider] -
[2018-10-08 18:21] LABS: Basophils % 0.3 %; Eosinophils # 0.2 K/mcL (0.0-0.6); Eosinophils % 1.9 %; Hematocrit 43.6 % (37.5-50.1); Hemoglobin 13.7 g/dL (12.9-16.9); Immature Granulocytes % 0.6 % (0-4); Lymphocytes # 0.9 K/mcL (0.6-4.6); Lymphocytes % 8.3 %; Mean Corpuscular HGB Conc 31.4 g/dL (31.6-35.5); Mean Corpuscular Hemoglobin 27.2 pg (28.0-33.3); Mean Corpuscular Volume 86.7 fL (83.0-100.0); Mean Platelet Volume 9.8 fL (9.4-12.4); Monocytes # 0.8 K/mcL (0.0-1.3); Monocytes % 8.2 %; Neutrophils # 8.3 K/mcL (1.6-8.9); Platelet Count 299 K/mcL (140-400); Red Blood Count 5.03 M/mcL (4.19-5.50); Red Cell Distribution Width 17.6 % (11.5-14.5); Segmented Neutrophils % 80.7 %
[2018-10-08] MEDS: *HR* Rivaroxaban 15 MG TABLET PO SCH (18:37)
[2018-10-08 18:40] LABS: Calcium 9.1 mg/dL (8.6-10.3); Potassium 3.8 mEq/L (3.5-5.1)
[2018-10-08] MEDS: Insulin LISPRO 300 UNITS/3 ML VIAL SQ SCH (21:06)
[2018-10-09 06:51] LABS: Albumin/Globulin Ratio 1.2 (1.1-2.2); Bilirubin,Total 0.4 mg/dL (0.3-1.0); Calcium 9.4 mg/dL (8.6-10.3); Globulin 3.3 g/dL (2.4-3.5); Total Protein 7.3 g/dL (6.4-8.9)
[2018-10-09 06:53] LABS: Thyroid Stimulating Hormone 0.629 mcIU/mL (0.340-5.600)
[2018-10-09] MEDS: Insulin LISPRO 300 UNITS/3 ML VIAL SQ SCH ×4 (08:36→21:12)
[2018-10-09] MEDS: Hydrocortisone Sodium Succ 100 MG/2 ML VIAL IVP SCH ×2 (08:37→21:13)
--- NOTE | 2018-10-09 12:32 | Internal Med Progress Note ---
Hospitalist Progress Note - Encounter Date of Encounter: 10/09/18 Time of Encounter: 12:28 - Subjective Interval History: I have seen and evaluated the patient at bedside. he denies chest pain or shortness of breath. denies more episodes of near syncope. but reports his main problem is when he stands up. - Exam Vitals: Temp Pulse Resp BP Pulse Ox 98.3 F 82 16 105/66 94 10/09/18 11:09 10/09/18 11:09 10/09/18 11:09 10/09/18 11:09 10/09/18 11:09 Exam: Vitals: reviewed General: Alert and oriented x4. In no distress Cardiovascular: Irregularly irregular, normal S1 & S2, no rubs, murmurs or gallops. Lungs: CTA b/l, no wheezes or crackles. Abdomen: Obese, soft, non-tender, no rigidity. Extremities: 2+ edema in the lower extr b/l. Neurological: Normal cognition and motor skills. Rest of the physical exam is non contributory - Assessment and Plan (1) Syncope Current Visit: Yes Status: Acute Assessment and Plan: Likely secondary to orthostatic Hypotension. Patient has a recent diagnosis of adrenal insufficiency Plan orthostaic vitals ordered started on hydocrotisone 30mg/IV BID cortisol random and ACTH level ordered recommended to see an rental clerk as outpatient. (2) Paroxysmal a-fib Current Visit: No Status: Chronic Assessment and Plan: patient is on metoprolol 25mg/BID for rate controlled. will decrease metoprolol to 12.5mg/PO BID. Hold today's dose of bb as BP have been running in the low 90s. Continue Rivaroxaban for secondary stroke prevention. (3) Obesity (BMI 30.0-34.9) Current Visit: No Status: Chronic (4) CAD (coronary atherosclerotic disease) Current Visit: No Status: Chronic Assessment and Plan: patient underwent a LHC due ST elevation on EKG on presentation. Caronary arteries are angiographically normal. We will resume aspirin. continue statin. (5) COPD (chronic obstructive pulmonary disease) Current Visit: No Status: Chronic Assessment and Plan: Patient's is not acute exacerbation. We will add bronchodilators every 4 hours when necessary. (6) Diabetes mellitus Current Visit: No Status: Chronic Assessment and Plan: Blood sugar is well controlled on insulin lispro low-dose sliding scale before meals. add Levemir 5 unit at bedtime. Carb controlled diet. (7) CKD (chronic kidney disease) Current Visit: No Status: Chronic Assessment and Plan: nephro-protective strategies. furosemide held due to hypotension will reassess kidney function in the morning (8) CHF (congestive heart failure) Current Visit: No Status: Chronic Assessment and Plan: Patient is not on CHF exacerbation. Last estimated ejection fraction 40% Furosemide has been held due to hypotension. Continue low-dose beta brisa. Fluid restriction to 1.5 L a day, plus daily weight (9) Pacemaker Current Visit: No Status: Chronic (10) Adrenal insufficiency Current Visit: Yes Status: Suspected Assessment and Plan: Plan of care as problem #1. (11) Hypothyroidism Current Visit: Yes Status: Chronic Assessment and Plan: Continue levothyroxine 100 mcg/PO daily. DVT Prophylaxis: Patient on an oral anticoagulant - Summary of Assessment and Plan Summary of Assessment and Plan: Patient to remain in the hospital due to hypotension. - Time Spent with Patient Total time spent is greater than 50% in coordination of care (as documented) at patient's floor/unit and/or counseling patient: Greater than 35 minutes (40) Plan of Care Discussed with: patient (and the nurse.) Internal Medicine: Result - Labs CBC & Chem 7: 10/08/18 17:41 10/09/18 05:59 Labs: Short CBC 10/08/18 Range/Units 17:41 WBC 10.3 (4.3-11.1) K/mcL Hgb 13.7 (12.9-16.9) g/dL Hct 43.6 (37.5-50.1) % Plt Count 299 (140-400) K/mcL Neutrophils # 8.3 (1.6-8.9) K/mcL BMP 10/08/18 10/09/18 17:41 05:59 Sodium 135 L 138 Potassium 3.8 4.0 Chloride 98 98 Carbon Dioxide 28 29 BUN 35 H 35 H Creatinine 2.50 H 2.17 H Glucose 129 H 156 H Calcium 9.1 9.4 Liver Function 10/09/18 Range/Units 05:59 Total Bilirubin 0.4 (0.3-1.0) mg/dL AST 14 (13-39) Units/L ALT 24 (7-52) Units/L Alkaline Phosphatase 96 (34-104) Units/L Albumin 4.0 (3.5-5.7) g/dL - VTE Reasons for not Prescribing Prophylaxis: Not indicated-Anticoagulated or INR therapeutic Consult Discharge Plan - Plan Referrals: [facility] [Primary Care Provider] - (1) Syncope Qualifiers: Syncope type: unspecified Qualified Code(s): R55 - Syncope and collapse (4) CAD (coronary atherosclerotic disease) Qualifiers: Coronary Disease-Associated Artery/Lesion type: [place] artery [place] vs. tr ansplanted heart: [place] heart Associated angina: without angina Qualified Code(s): I25.10 - Atherosclerotic heart disease of [place] coronary artery without angina pectoris (5) COPD (chronic obstructive pulmonary disease) Qualifiers: COPD type: unspecified COPD Qualified Code(s): J44.9 - Chronic obstructive pulmonary disease, unspecified (6) Diabetes mellitus Qualifiers: Diabetes mellitus type: type 2 Diabetes mellitus residential insulin use: without parts counterman use Diabetes mellitus complication status: with kidney complications Diabetes mellitus complication detail: with chronic kidney disease Chronic kidney disease stage: stage 3 (moderate) Qualified Code(s): E11.22 - Type 2 diabetes mellitus with diabetic chronic kidney disease; N18.3 - Chronic kidney disease, stage 3 (moderate) (7) CKD (chronic kidney disease) Qualifiers: Chronic kidney disease stage: unspecified stage Qualified Code(s): N18.9 - Chronic kidney disease, unspecified (8) CHF (congestive heart failure) Qualifiers: Heart failure type: unspecified Heart failure chronicity: chronic Qualified Code(s): I50.9 - Heart failure, unspecified (11) Hypothyroidism Qualifiers: Hypothyroidism type: unspecified Qualified Code(s): E03.9 - Hypothyroidism, unspecified
[2018-10-09] MEDS ORDERED: Ipratropium/Albuterol Neb 3 ML IH PRN (12:42)
--- NOTE | 2018-10-09 13:13 | Cardiology Progress Note ---
Date of Encounter: 10/09/18 Time of Encounter: 13:09 Assessment and Plan (1) Syncope Current Visit: Yes Status: Acute Pt presented with syncopal episode and abnormal EKG concerning for [place]. Emergent LHC for abnormal EKG showed normal coronaries. EF 40%. TTE 07/2018-LVEF 60%. Definity echo contrast was used. There is no LV thrombus. Normal right ventricular structure and function. Mild aortic regurgitation. Mild mitral regurgitation. Mild-moderate tricuspid regurgitation. No pulmonary hypertension. A device lead was visualized in the right atrium and right ventricle. Device check- Normal functioning device, no arrhythmias seen. Atrial high rate last seen 09/19/18- history of afib. Likely due to hypotension. Pt recently admitted for hypotension and AG/ adrenal insufficiency and he required pressor support. States that he re-started all of his anti-hypertensives at discharge including lisinopril and bb. Recommend hol ding lisinopril. Continue bb as tolerated due to history of afib. Further management of adrenal insufficiency per primary team. Will check limited TTE to assess EF. Qualifiers: Syncope type: unspecified Qualified Code(s): R55 - Syncope and collapse (2) A-fib Current Visit: No Status: Acute H/o afib with rate control on amio and bb. Previously failed multiple antiarrhy thmics. Recommend continuing bb if tolerated. Can hold if b/p less than 100 systolic. On renal dose of xarelto. Qualifiers: Atrial fibrillation type: chronic Qualified Code(s): I48.2 - Chronic atrial fibrillation (3) Chronic CHF Current Visit: Yes Status: Acute H/o CHF on lasix. EF reduced at 40% on LH compared to prior TTE EF 60% 07/2018. idiopathic NICMP. LHC showed normal cors. Patient states he was not taking lasix recently due to fear his kidney function would worsen. Lasix PRN edema. Strict I&O and daily weights. Continue toprol. No lisinopril due to hypotension. Qualifiers: Heart failure type: combined systolic and diastolic Qualified Code(s): I50.42 - Chronic combined systolic (congestive) and diastolic (congestive) heart failure Discussion w patient/family: The assessment and plan as outlined above was discussed with the patient and/or family members who expressed understanding and agreement. All questions were answered. Thank you for involving us in the care of your patient. Please call with any questions. Subjective Principal diagnosis: CHF Interval history: Mr. Issa denies recurrent symptoms. He voices frustration of frequent hospital visits. Objective Vital Signs, Last 4 Hours Temp Pulse Resp BP Pulse Ox 10/09/18 11:09 98.3 F 82 16 105/66 94 General: Conversant, No Apparent Distress HEENT: Atraumatic, Normocephaly, Mucus Membranes Moist Neck: No JVD, Normal carotid pulses Cardiac: Reg Rate and Rhythm, Normal S1 and S2, No Murmur Lungs: Normal Breath Sounds, No Wheeze, Rales, Rhonchi Neuro: Alert and responsive, No focal deficits noted Abdomen: Soft, Non-Tender Skin: No rashes noted on visualized skin Musculoskeletal: No Chest Wall Tenderness Extremities: No Clubbing, No Cyanosis, No Edema, Normal Pulses Results 10/08/18 17:41 10/09/18 05:59 Lab Results 10/08/18 10/08/18 10/08/18 16:32 17:41 17:41 WBC 10.3 Hgb 13.7 Hct 43.6 Plt Count 299 Sodium 135 L Potassium 3.8 Chloride 98 Carbon Dioxide 28 BUN 35 H Creatinine 2.50 H Glucose 129 H Calcium 9.1 Total Bilirubin AST ALT Alkaline Phosphatase B-Natriuretic Peptide 92 TSH 10/09/18 05:59 WBC Hgb Hct Plt Count Sodium 138 Potassium 4.0 Chloride 98 Carbon Dioxide 29 BUN 35 H Creatinine 2.17 H Glucose 156 H Calcium 9.4 Total Bilirubin 0.4 AST 14 ALT 24 Alkaline Phosphatase 96 B-Natriuretic Peptide TSH 0.629 - Imaging and Cardiology Echo: report reviewed Cardiac cath: report reviewed - EKG Interpretation EKG results cardiology: personally reviewed - VTE Reasons for not Prescribing Prophylaxis: Not indicated-Anticoagulated or INR therapeutic Consult Discharge Plan - Plan Referrals: [facility] [Primary Care Provider] -
[2018-10-09] MEDS: Ondansetron 4 MG/2 ML VIAL IVP PRN ×2 (15:23→21:28)
[2018-10-09] MEDS: *HR* Rivaroxaban 15 MG TABLET PO SCH (16:20)
[2018-10-09] MEDS ORDERED: Perflutren Lipid Microsphere 1.3 ML in 0.9 % Sodium Chloride 8.7 ML IVP ONE (19:42)
[2018-10-09] MEDS: Insulin DETEMIR 100 UNIT/ML X5UNITS SQ SCH (21:13)
[2018-10-10] MEDS: *HR* Amiodarone 200 MG TABLET PO SCH (07:55)
[2018-10-10] MEDS: Aspirin Enteric Coated 81 MG Tablet PO SCH (07:55)
[2018-10-10] MEDS: Insulin LISPRO 300 UNITS/3 ML VIAL SQ SCH ×4 (07:55→21:18)
[2018-10-10] MEDS: Hydrocortisone Sodium Succ 100 MG/2 ML VIAL IVP SCH (07:56)
--- NOTE | 2018-10-10 12:06 | Event Note ---
Date of Encounter: 10/10/18 Time of Encounter: 12:06 - Cardiology Event Note TTE resulted with LVEF preserved, no wall motion abnormalities. Cardiology will sign off, re-consult if needed. Will arrange outpatient follow up.
--- NOTE | 2018-10-10 14:31 | Internal Med Progress Note ---
Hospitalist Progress Note - Encounter Date of Encounter: 10/10/18 Time of Encounter: 09:00 - Subjective Interval History: Patient feels fine. Denies further dizziness or vision change. Vitals are stable. Previous chart reviewed, patient was discharged on by mouth hydrocortisone and fludrocortisone on 09/19/18, however, he stop taking medication after run out of meds. - Exam Vitals: Temp Pulse Resp BP Pulse Ox 98.2 F 79 17 120/74 93 10/10/18 10:47 10/10/18 10:47 10/10/18 10:47 10/10/18 10:47 10/10/18 10:47 Exam: Vitals: reviewed General: Alert and oriented x4. In no distress Cardiovascular: Irregularly irregular, normal S1 & S2, no rubs, murmurs or gal lops. Lungs: CTA b/l, no wheezes or crackles. Abdomen: Obese, soft, non-tender, no rigidity. Extremities: 2+ edema in the lower extr b/l. Neurological: Normal cognition and motor skills. Rest of the physical exam is non contributory - Assessment and Plan (1) Obesity (BMI 30.0-34.9) Current Visit: No Status: Chronic Assessment and Plan: Need the lifestyle modification as outpatient. (2) Paroxysmal a-fib Current Visit: No Status: Chronic Assessment and Plan: patient is on metoprolol 25mg/BID for rate controlled. will decrease metoprolol to 12.5mg/PO BID. Hold today's dose of bb as BP have been running in the low 90s. Continue Rivaroxaban renal dose for secondary stroke prevention. (3) CAD (coronary atherosclerotic disease) Current Visit: No Status: Chronic Assessment and Plan: patient underwent a LHC due ST elevation on EKG on presentation. Caronary arteries are angiographically normal. We will resume aspirin. continue statin/BB. (4) Pacemaker Current Visit: No Status: Chronic Assessment and Plan: Atrial paced rhythm. (5) COPD (chronic obstructive pulmonary disease) Current Visit: No Status: Chronic Assessment and Plan: Patient's is not acute exacerbation. We will add bronchodilators every 4 hours when necessary. (6) Diabetes mellitus Current Visit: No Status: Chronic Assessment and Plan: Blood sugar is well controlled on insulin lispro low-dose sliding scale and Levemir 5 unit at bedtime. Carb controlled diet. (7) Syncope Current Visit: Yes Status: Acute Assessment and Plan: Likely secondary to orthostatic hypotension. Patient has a recent diagnosis of adrenal insufficiency Plan orthostaic vitals ordered started on hydocrotisone 30mg/IV BID, switch to po dexamethasone and flu drocortisone cortisol random at lower side recommended to see an air pollution engineer as outpatient. (8) CKD (chronic kidney disease) Current Visit: No Status: Chronic Assessment and Plan: nephro-protective strategies. furosemide held due to hypotension Closely monitor renal function (9) CHF (congestive heart failure) Current Visit: No Status: Chronic Assessment and Plan: Patient is not on CHF exacerbation. Last estimated ejection fraction 40% Furosemide has been held due to hypotension. Continue low-dose beta brisa. Fluid restriction to 1.5 L a day, plus daily weight (10) Adrenal insufficiency Current Visit: Yes Status: Suspected Assessment and Plan: Plan of care as above (11) Hypothyroidism Current Visit: Yes Status: Chronic Assessment and Plan: Continue levothyroxine 100 mcg/PO daily. DVT Prophylaxis: Patient on an oral anticoagulant xarelto - Time Spent with Patient Total time spent is greater than 50% in coordination of care (as documented) at patient's floor/unit and/or counseling patient: 30 minutes 25 - 35 minutes Plan of Care Discussed with: patient Internal Medicine: Result - Labs CBC & Chem 7: 10/08/18 17:41 10/09/18 05:59 - Impressions Impressions Echocardiogram Limited Views 10/09/18 13:35 Impressions: LVEF 60-65%. Normal LV chamber size, wall thickness and function. Left Ventricular Wall Motion: Rest Echo Findings All wall segments showed normal motion. Findings: Study Quality * Technically adequate exam. ECG Findings * Artifact complicates interpretation. Left Ventricle * LVEF 60-65%. * Normal LV chamber size, wall thickness and function. Aorta * Normally sized aortic root. Pericardium * The pericardium appears normal. Hip X-Ray 10/09/18 14:38 IMPRESSION: No acute osseous abnormality. D/ / 10/09/2018 15:15:16 Claudia Armstrong MD / Trish Francis Interpreting Provider: Claudia Armstrong MD - VTE Reasons for not Prescribing Prophylaxis: Not indicated-Anticoagulated or INR therapeutic Consult Discharge Plan - Plan [facility]errals: [facility] [Primary Care Provider] - (3) CAD (coronary atherosclerotic disease) Qualifiers: Coronary Disease-Associated Artery/Lesion type: [place] artery [place] vs. transplanted heart: [place] heart Associated angina: without angina Qualified Code(s): I25.10 - Atherosclerotic heart disease of [place] coronary artery without angina pectoris (5) COPD (chronic obstructive pulmonary disease) Qualifiers: COPD type: unspecified COPD Qualified Code(s): J44.9 - Chronic obstructive pulmonary disease, unspecified (6) Diabetes mellitus Qualifiers: Diabetes mellitus type: type 2 Diabetes mellitus shelter insulin use: without moth 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 use Diabetes mellitus complication status: with kidney c omplications Diabetes mellitus complication detail: with chronic kidney disease Chronic kidney disease stage: stage 3 (moderate) Qualified Code(s): E11.22 - Type 2 diabetes mellitus with diabetic chronic kidney disease; N18.3 - Chronic kidney disease, stage 3 (moderate) (7) Syncope Qualifiers: Syncope type: unspecified Qualified Code(s): R55 - Syncope and collapse (8) CKD (chronic kidney disease) Qualifiers: Chronic kidney disease stage: unspecified stage Qualified Code(s): N18.9 - Chronic kidney disease, unspecified (9) CHF (congestive heart failure) Qualifiers: Heart failure type: unspecified Heart failure chronicity: chronic Qualified Code(s): I50.9 - Heart failure, unspecified (11) Hypothyroidism Qualifiers: Hypothyroidism type: unspecified Qualified Code(s): E03.9 - Hypothyroidism, unspecified
[2018-10-10] MEDS: *HR* Rivaroxaban 15 MG TABLET PO SCH (16:22)
[2018-10-10] MEDS: Insulin DETEMIR 100 UNIT/ML X5UNITS SQ SCH (21:20)
[2018-10-11 07:27] LABS: Basophils # 0.1 K/mcL (0.0-0.2); Basophils % 0.5 %; Eosinophils # 0.1 K/mcL (0.0-0.6); Eosinophils % 0.6 %; Hematocrit 42.5 % (37.5-50.1); Hemoglobin 13.2 g/dL (12.9-16.9); Immature Granulocytes % 0.5 % (0-4); Lymphocytes # 1.2 K/mcL (0.6-4.6); Lymphocytes % 11.3 %; Mean Corpuscular HGB Conc 31.1 g/dL (31.6-35.5); Mean Corpuscular Volume 87.1 fL (83.0-100.0); Mean Platelet Volume 9.5 fL (9.4-12.4); Monocytes # 1.3 K/mcL (0.0-1.3); Monocytes % 11.9 %; Neutrophils # 8.1 K/mcL (1.6-8.9); Platelet Count 328 K/mcL (140-400); Red Blood Count 4.88 M/mcL (4.19-5.50); Red Cell Distribution Width 17.5 % (11.5-14.5); Segmented Neutrophils % 75.2 %
[2018-10-11] MEDS: Insulin LISPRO 300 UNITS/3 ML VIAL SQ SCH ×2 (07:48→12:11)
[2018-10-11 07:49] LABS: BUN/Creatinine Ratio 17 (6-26); Blood Urea Nitrogen 21 mg/dL (8-23); Calcium 9.5 mg/dL (8.6-10.3); Carbon Dioxide 28 mEq/L (23-29); Chloride 103 mEq/L (98-107); Glucose 91 mg/dL (70-105); Osmolality,Calculated 291 (280-300); Sodium 139 mEq/L (136-145); eGFR For Non-African Americans 57 (> 60)
[2018-10-11] MEDS: Aspirin Enteric Coated 81 MG Tablet PO SCH (08:07)
[2018-10-11] MEDS: *HR* Amiodarone 200 MG TABLET PO SCH (08:07)
[2018-10-11 10:59] VITALS: BP 125/79
--- NOTE | 2018-10-11 11:04 | Discharge Summary ---
- NOTES TO OUTPATIENT PROVIDER Notes to Outpatient Provider: 1. Pt is suspected adrenal insufficiency. Please follow-up with simplex operator as outpatient. Orders not resulted at time of discharge: Pending orders 10/10/18 05:20 ACTH AM 0400 Date of Encounter: 10/11/18 Time of Encounter: 09:00 - Discharge Diagnosis (1) Obesity (BMI 30.0-34.9) Priority: Secondary Status: Chronic (2) Paroxysmal a-fib Priority: Secondary Status: Chronic (3) CAD (coronary atherosclerotic disease) Priority: Secondary Status: Chronic Qualifiers: Coronary Disease-Associated Artery/Lesion type: [place] artery [place] vs. transplanted heart: [place] heart Associated angina: without angina Qualified Code(s): I25.10 - Atherosclerotic heart disease of [place] coronary artery without angina pectoris (4) Pacemaker Priority: Secondary Status: Chronic (5) COPD (chronic obstructive pulmonary disease) Priority: Secondary Status: Chronic Qualifiers: COPD type: unspecified COPD Qualified Code(s): J44.9 - Chronic obstructive pulmonary disease, unspecified (6) Diabetes mellitus Priority: Secondary Status: Chronic Qualifiers: Diabetes mellitus type: type 2 Diabetes mellitus terminal make up operator insulin use: without prison use Diabetes mellitus complication status: with kidney complications Diabetes mellitus complication detail: with chronic kidney disease Chronic kidney disease stage: stage 3 (moderate) Qualified Code(s): E11.22 - Type 2 diabetes mellitus with diabetic chronic kidney disease; N18.3 - Chronic kidney disease, stage 3 (moderate) (7) Syncope Priority: Primary Status: Acute Qualifiers: Syncope type: unspecified Qualified Code(s): R55 - Syncope and collapse (8) CKD (chronic kidney disease) Priority: Secondary Status: Chronic Qualifiers: Chronic kidney disease stage: unspecified stage Qualified Code(s): N18.9 - Chronic kidney disease, unspecified (9) CHF (congestive heart failure) Priority: Secondary Status: Chronic Qualifiers: Heart failure type: unspecified Heart failure chronicity: chronic Qualified Code(s): I50.9 - Heart failure, unspecified (10) Adrenal insufficiency Priority: Primary Status: Suspected (11) Hypothyroidism Priority: Secondary Status: Chronic Qualifiers: Hypothyroidism type: unspecified Qualified Code(s): E03.9 - Hypothyroidism, unspecified Hospital course: Mr. Issa is a 68 year old male presented to ER for chest pain and dizziness. Patient was suspected STEMI and was admitted to cardiology service. Patient had LHC done, which shows normal coronary artery. Patient has hypotension in the emergency room. With Mariaelena daniels RVR. Patient was treated with beta brisa. His heart rate is well controlled. Patient has frequent syncope/hypotension episode in last months. He was suspected adrenal insufficiency on last admission around 1 month ago. However, patient did not follow-up with simplex operator and stop the steroid after the medication run out. Repeated random cortisol at AM is 5.4. Patient was placed back steroid. Patient's BP is stable on by mouth dexamethasone and fludrocortisone. I have discussed with patient the importance of following with endocrinology. Patient agrees to see endocrinology as outpatient. I have seen and examined the patient today. Patient is awake alert, oriented 3. Feels fine. Denies chest pain or shortness of breath. Vitals are stable. Renal function gets back to normal. Will DC patient home, refer to endocrinology as outpatient. Discharge discussed with: patient - Time Spent with Patient Total time spent providing and/or coordinating discharge services: 40 minutes Time spent: Greater than 30 minutes - Discharge Medications Prescriptions: New Dexamethasone [Decadron] 1.5 mg PO BIDWM 30 Days #180 tablet Continue Tamsulosin HCl [Flomax] 0.4 mg PO BID Amiodarone [Cordarone] 200 mg PO DAILY Aspirin 81 mg PO DAILY Lubiprostone [Amitiza] 16 mcg PO BIDWM Pantoprazole Sodium [Protonix] 40 mg PO DAILY@0730 Finasteride [Proscar] 5 mg PO DAILY Tiotropium Br/Olodaterol HCl [Stiolto Respimat Inhal [place]] 2 puff IH DAILY Insulin ASPART [NovoLOG] 0 unit SQ TIDAC MDD PER SLIDING SCALE Gabapentin [Neurontin] 400 mg PO BID Fluticasone/Salmeterol [Advair 250-50 Diskus] 1 puff IH BID Acetaminophen [Tylenol] 650 mg PO Q6HR PRN PRN Reason: PAIN/FEVER Atorvastatin Calcium [Lipitor] 40 mg PO DAILY DiphenhydraMINE [Benadryl] 25 mg PO HS PRN PRN Reason: Itching Furosemide [Lasix] 20 mg PO DAILY Carboxymethylcellulose Sodium [Refresh Liquigel] 1 drop BOTH EYES TID Cholecalciferol (Vitamin D3) [Vitamin D3] 2,000 unit PO DAILY Metoprolol Succinate [Toprol Xl] 12.5 mg PO DAILY NALOXONE 4 MG Nasal [place] [Narcan] 4 mg NS AD Potassium Chloride [Klor-Con 10] 40 meq PO DAILY Saline Nasal [place] [[place] Nasal [place]] 2 spray NS Q2H PRN PRN Reason: "NASAL PASSAGE CLEARING" Simethicone [Gas-X] 80 mg PO TID PRN PRN Reason: GAS Capsaicin [High Potency Capsaicin] 1 appl TP QID PRN PRN Reason: Pain Polyethylene Glycol 3350 [Natura-Lax] 17 gm PO DAILY PRN PRN Reason: Constipation metOLazone [Zaroxolyn] 5 mg PO AD PRN PRN Reason: SWELLING/ WEIGHT GAIN Trazodone HCl 200 mg PO HS Docusate [Colace] 300 mg PO HS Fluticasone Propionate Nasal [Flonase] 1 spray NS BID PRN PRN Reason: Allergy Symptoms Rivaroxaban [Xarelto] 15 mg PO DAILY Sennosides [Senokot] 17.2 mg PO BID PRN PRN Reason: Constipation Tizanidine HCl 2 mg PO BID PRN PRN Reason: MUSCLE SPASM OxyCODONE/APAP 10/325 [Percocet 10/325 MG] 1 tab PO Q8H PRN PRN Reason: Pain Fludrocortisone Acetate [Florinef] 0.1 mg PO DAILY 30 Days #30 tablet Home Medications: Amiodarone [Cordarone] 200 mg PO DAILY 04/04/18 [History] Aspirin 81 mg PO DAILY 04/04/18 [History] Finasteride [Proscar] 5 mg PO DAILY 04/04/18 [History] Lubiprostone [Amitiza] 16 mcg PO BIDWM 04/04/18 [History] Pantoprazole Sodium [Protonix] 40 mg PO DAILY@0730 04/04/18 [History] Tamsulosin HCl [Flomax] 0.4 mg PO BID 04/04/18 [History] Tiotropium Br/Olodaterol HCl [Stiolto Respimat Inhal [place]] 2 puff IH DAILY 04/24/18 [History] Insulin ASPART [NovoLOG] 0 unit SQ TIDAC MDD PER SLIDING SCALE 04/25/18 [History] Fluticasone/Salmeterol [Advair 250-50 Diskus] 1 puff IH BID 06/30/18 [History] Gabapentin [Neurontin] 400 mg PO BID 06/30/18 [History] Acetaminophen [Tylenol] 650 mg PO Q6HR PRN 07/26/18 [History] Atorvastatin Calcium [Lipitor] 40 mg PO DAILY 07/26/18 [History] DiphenhydraMINE [Benadryl] 25 mg PO HS PRN 07/26/18 [History] Furosemide [Lasix] 20 mg PO DAILY 08/09/18 [History] Capsaicin [High Potency Capsaicin] 1 appl TP QID PRN 08/27/18 [History] Carboxymethylcellulose Sodium [Refresh Liquigel] 1 drop BOTH EYES TID 08/27/18 [History] Cholecalciferol (Vitamin D3) [Vitamin D3] 2,000 unit PO DAILY 08/27/18 [History] Metoprolol Succinate [Toprol Xl] 12.5 mg PO DAILY 08/27/18 [History] NALOXONE 4 MG Nasal [place] [Narcan] 4 mg NS AD 08/27/18 [History] Polyethylene Glycol 3350 [Natura-Lax] 17 gm PO DAILY PRN 08/27/18 [History] Potassium Chloride [Klor-Con 10] 40 meq PO DAILY 08/27/18 [History] Saline Nasal [place] [[place] Nasal [place]] 2 spray NS Q2H PRN 08/27/18 [History] Simethicone [Gas-X] 80 mg PO TID PRN 08/27/18 [History] Trazodone HCl 200 mg PO HS 08/27/18 [History] metOLazone [Zaroxolyn] 5 mg PO AD PRN 08/27/18 [History] Docusate [Colace] 300 mg PO HS 09/17/18 [History] Fluticasone Propionate Nasal [Flonase] 1 spray NS BID PRN 09/17/18 [History] Rivaroxaban [Xarelto] 15 mg PO DAILY 09/17/18 [History] Sennosides [Senokot] 17.2 mg PO BID PRN 09/17/18 [History] Tizanidine HCl 2 mg PO BID PRN 09/17/18 [History] OxyCODONE/APAP 10/325 [Percocet 10/325 MG] 1 tab PO Q8H PRN 10/09/18 [History] Dexamethasone [Decadron] 1.5 mg PO BIDWM 30 Days #180 tablet 10/11/18 [Rx] Fludrocortisone Acetate [Florinef] 0.1 mg PO DAILY 30 Days #30 tablet 10/11/18 [Rx] Allergies/Adverse Reactions: Allergy/AdvReac Type Severity Reaction Status Date / Time IVP DYE Allergy Severe Anaphylaxis Uncoded 10/09/18 14:23 Date of admission: 10/08/18 17:07 [facility] Consults: 10/08/18 16:32 Consult to Physician [CONS] Routine Consulting Provider: Hospitalist Britta Reason for Consult: medical management Call Completed: No 10/08/18 16:33 Consult to Senior Clinical Data Manager [CONS] Routine Reason for SW Consult: discharge planning Discharging clinician: Yamile Rodriguez Anticipated date of discharge: 10/11/18 - Constitutional Vitals: Temp Pulse Resp BP Pulse Ox 98.8 F 71 18 125/79 97 10/11/18 10:55 10/11/18 10:55 10/11/18 10:55 10/11/18 10:55 10/11/18 10:55 General appearance: Present: A&O X 3 Exam: Vitals: reviewed General: Alert and oriented x4. In no distress Cardiovascular: Irregularly irregular, normal S1 & S2, no rubs, murmurs or gallops. Lungs: CTA b/l, no wheezes or crackles. Abdomen: Obese, soft, non-tender, no rigidity. Extremities: 2+ edema in the lower extr b/l. Neurological: Normal cognition and motor skills. Rest of the physical exam is non contributory - Patient Status Disposition: Home, Self-Care Condition: Good Functional capacity at discharge: independent ambulation Overall status at discharge: patient is back to baseline - Discharge Instructions Follow [facility] With: [facility] [[facility] Care Provider[facility] - Additional Instructions: Please refer pt to see Endocrinology as out patient. - Diet and Activity Activity: increase activity as tolerated Diet: diabetic diet - VTE Reasons for not Prescribing Prophylaxis: Not indicated-Anticoagulated or INR therapeutic
--- NOTE | 2018-10-11 11:34 | Physician Discharge Referral ---
Home Health/Hosp Referral Info Transfer to: Home Health Provider in Charge Post Discharge: PCP - Diagnosis (1) Obesity (BMI 30.0-34.9) Status: Chronic (2) Paroxysmal a-fib Status: Chronic (3) CAD (coronary atherosclerotic disease) Status: Chronic (4) Pacemaker Status: Chronic (5) COPD (chronic obstructive pulmonary disease) Status: Chronic (6) Diabetes mellitus Status: Chronic (7) Syncope Status: Acute (8) CKD (chronic kidney disease) Status: Chronic (9) CHF (congestive heart failure) Status: Chronic (10) Adrenal insufficiency Status: Suspected (11) Hypothyroidism Status: Chronic - Respiratory Orders Smoking Cessation: Smoking cessation has been advised. For more information, call the [place] Tobacco Quit Line at 2-990-GEQV-NOW. - Diet/Nutrition Diet/Nutrition Orders: No Concentrated Sweets - Services Needed Following services are medically necessary services: Nursing, Home Health Aide, Physical Therapy, Occupational Therapy - Transfer Medications Prescriptions: Dexamethasone [Decadron] 1.5 mg PO BIDWM 30 Days #180 tablet Fludrocortisone Acetate [Florinef] 0.1 mg PO DAILY 30 Days #30 tablet Home Medications: Amiodarone [Cordarone] 200 mg PO DAILY 04/04/18 [History] Aspirin 81 mg PO DAILY 04/04/18 [History] Finasteride [Proscar] 5 mg PO DAILY 04/04/18 [History] Lubiprostone [Amitiza] 16 mcg PO BIDWM 04/04/18 [History] Pantoprazole Sodium [Protonix] 40 mg PO DAILY@0730 04/04/18 [History] Tamsulosin HCl [Flomax] 0.4 mg PO BID 04/04/18 [History] Tiotropium Br/Olodaterol HCl [Stiolto Respimat Inhal [place]] 2 puff IH DAILY 04/24/18 [History] Insulin ASPART [NovoLOG] 0 unit SQ TIDAC MDD PER SLIDING SCALE 04/25/18 [History] Fluticasone/Salmeterol [Advair 250-50 Diskus] 1 puff IH BID 06/30/18 [History] Gabapentin [Neurontin] 400 mg PO BID 06/30/18 [History] Acetaminophen [Tylenol] 650 mg PO Q6HR PRN 07/26/18 [History] Atorvastatin Calcium [Lipitor] 40 mg PO DAILY 07/26/18 [History] DiphenhydraMINE [Benadryl] 25 mg PO HS PRN 07/26/18 [History] Furosemide [Lasix] 20 mg PO DAILY 08/09/18 [History] Capsaicin [High Potency Capsaicin] 1 appl TP QID PRN 08/27/18 [History] Carboxymethylcellulose Sodium [Refresh Liquigel] 1 drop BOTH EYES TID 08/27/18 [History] Cholecalciferol (Vitamin D3) [Vitamin D3] 2,000 unit PO DAILY 08/27/18 [History] Metoprolol Succinate [Toprol Xl] 12.5 mg PO DAILY 08/27/18 [History] NALOXONE 4 MG Nasal [place] [Narcan] 4 mg NS AD 08/27/18 [History] Polyethylene Glycol 3350 [Natura-Lax] 17 gm PO DAILY PRN 08/27/18 [History] Potassium Chloride [Klor-Con 10] 40 meq PO DAILY 08/27/18 [History] Saline Nasal [place] [[place] Nasal [place]] 2 spray NS Q2H PRN 08/27/18 [History] Simethicone [Gas-X] 80 mg PO TID PRN 08/27/18 [History] Trazodone HCl 200 mg PO HS 08/27/18 [History] metOLazone [Zaroxolyn] 5 mg PO AD PRN 08/27/18 [History] Docusate [Colace] 300 mg PO HS 09/17/18 [History] Fluticasone Propionate Nasal [Flonase] 1 spray NS BID PRN 09/17/18 [History] Rivaroxaban [Xarelto] 15 mg PO DAILY 09/17/18 [History] Sennosides [Senokot] 17.2 mg PO BID PRN 09/17/18 [History] Tizanidine HCl 2 mg PO BID PRN 09/17/18 [History] OxyCODONE/APAP 10/325 [Percocet 10/325 MG] 1 tab PO Q8H PRN 10/09/18 [History] Dexamethasone [Decadron] 1.5 mg PO BIDWM 30 Days #180 tablet 10/11/18 [Rx] Fludrocortisone Acetate [Florinef] 0.1 mg PO DAILY 30 Days #30 tablet 10/11/18 [Rx] Allergies/Adverse Reactions: Allergy/AdvReac Type Severity Reaction Status Date / Time IVP DYE Allergy Severe Anaphylaxis Uncoded 10/09/18 14:23 Certification: Further, I certify that my clinical findings support that this patient is homebound (i.e. absences from home require considerable and taxing effort and are for medical reasons or taoism services or infrequently or short duration when for other reasons) because: Homebound Reason: Patient requires assistance of a person or device to safely leave home Attestation: My signature below is to certify that this patient is under my care and that I, or nurse practitioner, or a physician's showroom sales assistant working with me, has a [id number] encounter with this patient.
[2018-10-11] MEDS ORDERED: *HR* Rivaroxaban 10 MG TABLET PO SCH (17:00)
== END 2018-10-11 13:30 | disposition home health service (06) | DRG 287 ==
LOC: 2ANU 15:43 → EMEROOARM 15:43 → OBSVTOIN 17:07 → SUATTDRO 17:07 → 2ANU 17:37
PROVIDERS: ADMIT Internal Medicine Cardiovascular Disease; ATTEND Internal Medicine

== ENCOUNTER 2018-11-18 13:30 | Inpatient (IN) ==
--- NOTE | 2018-11-18 13:41 | Emergency Department Note ---
Disposition Clinical Impression: Congestive heart failure Qualifiers: Heart failure type: unspecified Heart failure chronicity: acute on chronic Qualified Code(s): I50.9 - Heart failure, unspecified Sepsis Qualifiers: Sepsis type: sepsis due to unspecified organism Qualified Code(s): A41.9 - Sepsis, unspecified organism Acute renal failure Qualifiers: Acute renal failure type: unspecified Qualified Code(s): N17.9 - Acute kidney failure, unspecified Disposition: Admitted As Inpatient Condition: Critical Time of Disposition: 02:19 General Adult HPI - General Chief complaint: ED Fever Stated complaint: Low blood pressure sepsis Time Seen by Provider: 11/18/18 13:40 Source: patient, EMS - History of Present Illness HPI Narrative: 68-year-old male past medical history of chronic kidney disease and congestive heart failure coming from the [facility] for concerns of bowel blockage and sepsis. Patient presented to the [facility] approximately 3 hours ago with abdominal pain. Multiple labs and images were drawn at that time which show elevated white count and elevated creatinine above 3. Patient is currently complaining of headache, lightheadedness, dizziness, shortness of breath, neck and back pain and diffuse abdominal pains. Patient states his last bowel movement was 2 days ago was nonbloody and nonmucoid patient urinated today without difficulty urine is clear nonbloody appearing in Chang bag. Patient denies chest pain at this time Documentation from the [facility] states patient is a DNR CC arrest I spoke with the patient regarding this advanced directive which patient denies and states that he wants all medical measures done for him to treat and evaluate his current condition up to and including her rock measures of intubation and CPR. I spoke with the patient regarding the potential need for a central line for pressure support patient agrees to this management. [facility] Onset (ago): day(s) - Related Data Home Medications Medication Instructions Recorded Confirmed Amiodarone [Cordarone] 200 mg PO DAILY 04/04/18 11/18/18 Aspirin 81 mg PO DAILY 04/04/18 11/18/18 Finasteride [Proscar] 5 mg PO DAILY 04/04/18 11/18/18 Lubiprostone [Amitiza] 16 mcg PO BIDWM 04/04/18 11/18/18 Pantoprazole Sodium [Protonix] 40 mg PO DAILY@0730 04/04/18 11/18/18 Tamsulosin HCl [Flomax] 0.4 mg PO BID 04/04/18 11/18/18 Tiotropium Br/Olodaterol HCl 2 puff IH DAILY 04/24/18 11/18/18 [Stiolto Respimat Inhal [place]] Insulin ASPART [NovoLOG] 0 unit SQ TIDAC MDD PER SLIDING 04/25/18 11/18/18 SCALE Fluticasone/Salmeterol [Advair 1 puff IH BID 06/30/18 11/18/18 250-50 Diskus] Gabapentin [Neurontin] 400 mg PO BID 06/30/18 11/18/18 Acetaminophen [Tylenol] 650 mg PO Q6HR PRN 07/26/18 11/18/18 DiphenhydraMINE [Benadryl] 25 mg PO HS PRN 07/26/18 11/18/18 Furosemide [Lasix] 20 mg PO DAILY 08/09/18 11/18/18 Capsaicin [High Potency Capsaicin] 1 appl TP QID PRN 08/27/18 11/18/18 Carboxymethylcellulose Sodium 1 drop BOTH EYES TID 08/27/18 11/18/18 [Refresh Liquigel] Metoprolol Succinate [Toprol Xl] 12.5 mg PO DAILY 08/27/18 11/18/18 Polyethylene Glycol 3350 17 gm PO DAILY PRN 08/27/18 11/18/18 [Natura-Lax] Potassium Chloride [Klor-Con 10] 20 meq PO BID 08/27/18 11/18/18 Saline Nasal [place] [[place] Nasal 2 spray NS Q2H PRN 08/27/18 11/18/18 [place]] Simethicone [Gas-X] 80 mg PO TID PRN 08/27/18 11/18/18 Trazodone HCl 200 mg PO HS 08/27/18 11/18/18 metOLazone [Zaroxolyn] 5 mg PO DAILY PRN 08/27/18 11/18/18 Docusate [Colace] 300 mg PO HS 09/17/18 11/18/18 Fluticasone Propionate Nasal 1 spray NS BID PRN 09/17/18 11/18/18 [Flonase] Rivaroxaban [Xarelto] 15 mg PO DAILY 09/17/18 11/18/18 Tizanidine HCl 2 mg PO BID PRN 09/17/18 11/18/18 Albuterol Neb [AccuNeb] 0.63 mg IH TID 11/18/18 11/18/18 Atorvastatin [Lipitor] 40 mg PO DAILY 11/18/18 11/18/18 Cholecalciferol (D-3) [Vitamin D] 2,000 unit PO DAILY 11/18/18 11/18/18 Duloxetine HCl [Cymbalta] 60 mg PO DAILY 11/18/18 11/18/18 Hydrocortisone [Cortef] 15 mg PO DAILY 11/18/18 11/18/18 Losartan [Cozaar] 25 mg PO DAILY 11/18/18 11/18/18 Melatonin [Melatin] 9 mg PO HS 11/18/18 11/18/18 Memantine HCl 10 mg PO BID 11/18/18 11/18/18 Oxycodone HCl [Roxybond] 10 mg PO Q8H PRN 11/18/18 11/18/18 Sennosides [Senokot] 17.2 mg PO BID PRN 11/18/18 11/18/18 Sennosides/Docusate Sodium 1 each PO BID PRN 11/18/18 11/18/18 [Docusate Sodium-Sennosides Tab] Spironolactone [Aldactone] 50 mg PO BID 11/18/18 11/18/18 Allergies Allergy/AdvReac Type Severity Reaction Status Date / Time IVP DYE Allergy Severe Anaphylaxis Uncoded 10/09/18 14:23 Review of Systems: Constitutional: Admits fever, chills Cardiovascular: Admits chest pain Respiratory: Admits dyspnea Gastrointestinal: Admits abdominal pain, nausea, vomiting, diarrhea, denies constipation, hematemesis, melena, hematochezia Genitourinary: Denies: hematuria Musculoskeletal: Admits back pain, neck pain Neurological: Admits headache, weakness, denies numbness, paresthesias Endocrine: ADMITS fatigue All systems ED: reviewed and negative except as stated. Review of Systems: As Per HPI Past Medical History - Past Medical History Medical history: Reports: arthritis, atrial fibrillation, CHF, COPD, coronary artery disease, CVA, diabetes, GERD, hyperlipidemia, hypertension, pulmonary embolus, renal disease, other Surgical history: Reports: cholecystectomy, herniorrhaphy, knee replacement, orthopedic, other, pacemaker/AICD Psychiatric history: Reports: anxiety, depression, panic disorder, PTSD, previous psychiatric hospitalization - Social History Smoking Status: Former smoker Smokeless Tobacco Status: No Alcohol use: Reports: none Drug use: Reports: none Physical Exam Constitutional: Patient appears to be in moderate distress due to pain and is somnolent he is arousable to vocal stimuli. speech is fluid, answers questions appropriately Neuro: no overt focal neurological deficits Head: Atraumatic, normocephalic Eyes: Pupils equal, round and reactive to light, no scleral icterus, no conjunctival injection Neck: Trachea midline without deviation. Anterior neck is supple without swelling. *Chest: Symmetric chest wall rise *Heart: Cardiac rhythm and rate are regular with S1 and S2 , no S3 or S4 appreciated, no murmurs, gallops, rubs, or clicks. *Lungs: Lungs are clear to auscultation bilaterally, without accessory muscle use or prolonged expiratory phase. No wheezes, rhonchi or stridor appreciated. Abdomen: Abdomen is diffusely tender to palpation. Abdomen is otherwise rotund and slightly distended, normal bowel sounds. No abdominal bruit auscultated. non-rigid, No ascites appreciated. No pulsatile mass, NO guarding to palpation in all four quadrants, no rebound Extremities: 1+ pitting edema noted in bilateral lower extremities. Pulses/motor intact in all 4 extremities. Psychiatric exam: Patient appears anxious and in pain. No overt signs of hallucination. Integumentary: warm, dry, intact, NO cyanosis, diaphoresis - General Limitations: no limitations General appearance: alert, in distress Course Course Narrative: ED sepsis workup. Patient has received 3 L of IV fluid We will start IV antibiotics. - Reevaluation(s) Reevaluation #1: Attempted to wean patient from norepinephrine drip blood pressure dropped to 90 systolic Concern for septic shock We will give him cefepime and Zosyn at this time We will place central line Vital Signs Pulse Rate 97 11/18/18 13:35 Blood Pressure 96/62 11/18/18 13:35 Temperature 97.5 F L 11/19/18 12:24 Pulse Rate 84 11/19/18 13:00 Respiratory Rate 14 11/19/18 13:00 Blood Pressure 133/77 11/19/18 13:00 O2 Sat by Pulse Oximetry 95 05/20/19 13:00 Oxygen Delivery Oxygen Delivery Nasal Cannula Procedures - Central Line Placement Right IJ Central Line Inserted*: Yes Central Line Catheter Replacement*: No Central Line Insertion: emergent Consent Obtained: verbal consent Procedural Pause: verify patient name and date of , timeout performed per policy, jose and assess the site, assemble equipment and verify supplies, perform hand hygiene Patient Placed on Monitor/Pulse Ox: Yes During the Procedure: clinician is wearing sterile gloves, cap, mask,& gown during insertion, sterile field and sterile technique are maintained, patient's face is covered with drape or mask and wearing a cap, everyone in room is wearing a mask Central Line Prep: Chlorhexidine scrub Prep the Procedure Site: apply chloraprep to the skin using a back and forth scrubbing motion, apply chloraprep for 30 seconds (upper body), 1-2 min (femoral sites), allow prep to dry, drape the patient with a full body drape Local Anesthetic: lidocaine 1% Ultrasound Used for Placement: Yes Central Line Lumen Inserted: triple Post Procedure: sutured in place, good blood return, all ports aspirated, flushed, capped, sterile dressing applied, guide wire removed and visualized Post Procedure X-Ray: tip of catheter in good position Patient Tolerated Procedure: well, no complications Complications: none Name of Clinician Inserting Central Line: Nathaniel Parrish Clinician Assisting/Completing Checklist: Milton Villatoro Date: 11/18/18 Time: 15:40 Medical Decision Making - MDM Narrative Medical decision making narrative: Patient alert and oriented after placement of central line and fluid hydration Patient states he is feeling much better and thanks hospital staff for their effort. Patient at hospitalist medicine service for further evaluation and management of sepsis. - Lab Data Lab results reviewed: Yes I reviewed the patient's lab results. Result diagrams: 11/19/18 03:30 11/19/18 03:30 Lab Results 11/18/18 11/18/18 11/18/18 Range/Units 14:54 14:54 14:54 WBC 18.2 H (4.3-11.1) K/mcL RBC 4.53 (4.19-5.50) M/mcL Hgb 12.4 L (12.9-16.9) g/dL Hct 39.8 (37.5-50.1) % MCV 87.9 (83.0-100.0) fL MCH 27.4 L (28.0-33.3) pg MCHC 31.2 L (31.6-35.5) g/dL RDW 16.4 H (11.5-14.5) % Plt Count 278 (140-400) K/mcL MPV 9.5 (9.4-12.4) fL Immature Gran % 0.8 (0-4) % Seg Neutrophils % 90.7 % Lymphocytes % 2.7 % Monocytes % 5.4 % Eosinophils % 0.2 % Basophils % 0.2 % Neutrophils # 16.5 H (1.6-8.9) K/mcL Lymphocytes # 0.5 L (0.6-4.6) K/mcL Monocytes # 1.0 (0.0-1.3) K/mcL Eosinophils # 0.0 (0.0-0.6) K/mcL Basophils # 0.0 (0.0-0.2) K/mcL PT 17.9 H (9.4-12.1) Seconds INR 1.6 APTT 34.4 (26.0-36.0) Seconds ABG pH (7.32-7.45) pH Units ABG pCO2 (35-45) mmHg ABG pO2 (85-104) mmHg ABG HCO3 (21-27) mEq/L ABG Total CO2 (20-26) mEq/L ABG O2 Saturation (95-98) % ABG Base Excess (-2 to 3) mEq/L Inspired O2 (1-15=lpm [id number]=%) Sodium 136 (136-145) mEq/L Potassium 3.8 (3.5-5.1) mEq/L Chloride 94 L (98-107) mEq/L Carbon Dioxide 31 H (23-29) mEq/L BUN 39 H (8-23) mg/dL Creatinine 2.72 H (0.70-1.30) mg/dL Est GFR ( Amer) 28 L (> 60) Est GFR (Non-Af Amer) 23 L (> 60) BUN/Creatinine Ratio 14 (6-26) Glucose 168 H (70-105) mg/dL Calculated Osmolality 295 (280-300) Lactic Acid (0.5-2.2) mmol/L Calcium 8.1 L (8.6-10.3) mg/dL Phosphorus 3.1 (2.7-4.5) mg/dL Magnesium 2.2 (1.6-2.6) mg/dL Total Bilirubin 0.8 (0.3-1.0) mg/dL Direct Bilirubin 0.3 H (0.0-0.2) mg/dL Indirect Bilirubin 0.5 (0.0-1.2) mg/dL AST 135 H (13-39) Units/L ALT 194 H (7-52) Units/L Alkaline Phosphatase 135 H (34-104) Units/L Troponin I < 0.03 (< 0.04) ng/mL B-Natriuretic Peptide (Less than 100) pg/mL Serum Total Protein 6.2 L (6.4-8.9) g/dL Albumin 3.4 L (3.5-5.7) g/dL Globulin 2.8 (2.4-3.5) g/dL Albumin/Globulin Ratio 1.2 (1.1-2.2) Lipase 9 L (11-82) Units/L Urine Color (Yellow) Urine Clarity (Clear) Urine pH (5.0-8.0) pH Units Ur Specific [place] (1.010-1.025) Urine Protein (Neg-Trace) mg/dL Urine Glucose (UA) (Normal) mg/dL Urine Ketones (Negative) mg/dL Urine Blood (Negative) Urine Nitrite (Negative) Urine Bilirubin (Negative) Urine Urobilinogen (Normal) mg/dL Ur Leukocyte Esterase (Negative) Urine Microscopic RBC (0-3) per hpf Urine Microscopic WBC (0-3) per hpf Ur Squamous Epith Cells (None-Few) per lpf Urine Bacteria (None-Few) per hpf Hyaline Casts (None-Few) per lpf Ur Culture Indicated? (NO) Blood Type Antibody Screen 11/18/18 11/18/18 11/18/18 Range/Units 14:54 14:54 14:54 WBC (4.3-11.1) K/mcL RBC (4.19-5.50) M/mcL Hgb (12.9-16.9) g/dL Hct (37.5-50.1) % MCV (83.0-100.0) fL MCH (28.0-33.3) pg MCHC (31.6-35.5) g/dL RDW (11.5-14.5) % Plt Count (140-400) K/mcL MPV (9.4-12.4) fL Immature Gran % (0-4) % Seg Neutrophils % % Lymphocytes % % Monocytes % % Eosinophils % % Basophils % % Neutrophils # (1.6-8.9) K/mcL Lymphocytes # (0.6-4.6) K/mcL Monocytes # (0.0-1.3) K/mcL Eosinophils # (0.0-0.6) K/mcL Basophils # (0.0-0.2) K/mcL PT (9.4-12.1) Seconds INR APTT (26.0-36.0) Seconds ABG pH (7.32-7.45) pH Units ABG pCO2 (35-45) mmHg ABG pO2 (85-104) mmHg ABG HCO3 (21-27) mEq/L ABG Total CO2 (20-26) mEq/L ABG O2 Saturation (95-98) % ABG Base Excess (-2 to 3) mEq/L Inspired O2 (1-15=lpm [id number]=%) Sodium (136-145) mEq/L Potassium (3.5-5.1) mEq/L Chloride (98-107) mEq/L Carbon Dioxide (23-29) mEq/L BUN (8-23) mg/dL Creatinine (0.70-1.30) mg/dL Est GFR ( Amer) (> 60) Est GFR (Non-Af Amer) (> 60) BUN/Creatinine Ratio (6-26) Glucose (70-105) mg/dL Calculated Osmolality (280-300) Lactic Acid 2.0 (0.5-2.2) mmol/L Calcium (8.6-10.3) mg/dL Phosphorus (2.7-4.5) mg/dL Magnesium (1.6-2.6) mg/dL Total Bilirubin (0.3-1.0) mg/dL Direct Bilirubin (0.0-0.2) mg/dL Indirect Bilirubin (0.0-1.2) mg/dL AST (13-39) Units/L ALT (7-52) Units/L Alkaline Phosphatase (34-104) Units/L Troponin I (< 0.04) ng/mL B-Natriuretic Peptide 22 (Less than 100) pg/mL Serum Total Protein (6.4-8.9) g/dL Albumin (3.5-5.7) g/dL Globulin (2.4-3.5) g/dL Albumin/Globulin Ratio (1.1-2.2) Lipase (11-82) Units/L Urine Color (Yellow) Urine Clarity (Clear) Urine pH (5.0-8.0) pH Units Ur Specific [place] (1.010-1.025) Urine Protein (Neg-Trace) mg/dL Urine Glucose (UA) (Normal) mg/dL Urine Ketones (Negative) mg/dL Urine Blood (Negative) Urine Nitrite (Negative) Urine Bilirubin (Negative) Urine Urobilinogen (Normal) mg/dL Ur Leukocyte Esterase (Negative) Urine Microscopic RBC (0-3) per hpf Urine Microscopic WBC (0-3) per hpf Ur Squamous Epith Cells (None-Few) per lpf Urine Bacteria (None-Few) per hpf Hyaline Casts (None-Few) per lpf Ur Culture Indicated? (NO) Blood Type A POSITIVE Antibody Screen NEGATIVE 11/18/18 11/18/18 11/18/18 Range/Units 15:05 17:13 17:51 WBC (4.3-11.1) K/mcL RBC (4.19-5.50) M/mcL Hgb (12.9-16.9) g/dL Hct (37.5-50.1) % MCV (83.0-100.0) fL MCH (28.0-33.3) pg MCHC (31.6-35.5) g/dL RDW (11.5-14.5) % Plt Count (140-400) K/mcL MPV (9.4-12.4) fL Immature Gran % (0-4) % Seg Neutrophils % % Lymphocytes % % Monocytes % % Eosinophils % % Basophils % % Neutrophils # (1.6-8.9) K/mcL Lymphocytes # (0.6-4.6) K/mcL Monocytes # (0.0-1.3) K/mcL Eosinophils # (0.0-0.6) K/mcL Basophils # (0.0-0.2) K/mcL PT (9.4-12.1) Seconds INR APTT (26.0-36.0) Seconds ABG pH 7.45 (7.32-7.45) pH Units ABG pCO2 49 H (35-45) mmHg ABG pO2 55 L (85-104) mmHg ABG HCO3 33 H (21-27) mEq/L ABG Total CO2 35 H (20-26) mEq/L ABG O2 Saturation 89 L (95-98) % ABG Base Excess 8 H (-2 to 3) mEq/L Inspired O2 21.0 (1-15=lpm [id number]=%) Sodium (136-145) mEq/L Potassium (3.5-5.1) mEq/L Chloride (98-107) mEq/L Carbon Dioxide (23-29) mEq/L BUN (8-23) mg/dL Creatinine (0.70-1.30) mg/dL Est GFR ( Amer) (> 60) Est GFR (Non-Af Amer) (> 60) BUN/Creatinine Ratio (6-26) Glucose (70-105) mg/dL Calculated Osmolality (280-300) Lactic Acid 1.3 (0.5-2.2) mmol/L Calcium (8.6-10.3) mg/dL Phosphorus (2.7-4.5) mg/dL Magnesium (1.6-2.6) mg/dL Total Bilirubin (0.3-1.0) mg/dL Direct Bilirubin (0.0-0.2) mg/dL Indirect Bilirubin (0.0-1.2) mg/dL AST (13-39) Units/L ALT (7-52) Units/L Alkaline Phosphatase (34-104) Units/L Troponin I (< 0.04) ng/mL B-Natriuretic Peptide (Less than 100) pg/mL Serum Total Protein (6.4-8.9) g/dL Albumin (3.5-5.7) g/dL Globulin (2.4-3.5) g/dL Albumin/Globulin Ratio (1.1-2.2) Lipase (11-82) Units/L Urine Color Yellow (Yellow) Urine Clarity Clear (Clear) Urine pH 6.0 (5.0-8.0) pH Units Ur Specific [place] 1.015 (1.010-1.025) Urine Protein 30 H (Neg-Trace) mg/dL Urine Glucose (UA) Normal (Normal) mg/dL Urine Ketones Negative (Negative) mg/dL Urine Blood Moderate H (Negative) Urine Nitrite Negative (Negative) Urine Bilirubin Negative (Negative) Urine Urobilinogen Normal (Normal) mg/dL Ur Leukocyte Esterase Trace H (Negative) Urine Microscopic RBC 5-15 H (0-3) per hpf Urine Microscopic WBC 5-15 H (0-3) per hpf Ur Squamous Epith Cells Many H (None-Few) per lpf Urine Bacteria None Seen (None-Few) per hpf Hyaline Casts None Seen (None-Few) per lpf Ur Culture Indicated? YES A (NO) Blood Type Antibody Screen - Radiology Data Radiology results reviewed: Yes I reviewed the patient's radiology results. Chest X-Ray 11/18/18 15:27 IMPRESSION: Interval placement of right jugular central venous catheter. No pneumothorax. D/ / Shani Rice Cha, MD / Shani Rice Cha, MD Interpreting Provider: Shani Rice Cha, MD Chest X-Ray 11/18/18 15:27 IMPRESSION: Interval placement of right jugular central venous catheter. No pneumothorax. D/ / Shani Rice Cha, MD / Shani Rice Cha, MD Interpreting Provider: Shani Rice Cha, MD Abdomen Ultrasound 11/19/18 09:00 IMPRESSION: The kidneys are not obstructed. Status post cholecystectomy. D/ / 11/19/2018 09:50:11 Wu Kenny [place] [facility] [place] Provider: Wu Kenny MD KUB X-Ray 11/19/18 11:23 IMPRESSION: Distended small and large bowel representing ileus versus less likely low-grade partial small bowel obstruction. D/ / 11/19/2018 12:03:23 Alex Sanders MD / [facility] Interpreting Provider: Alex Sanders MD Attestation Statement - Attestation Attestation: I have seen this patient with the resident physician, I have personally evaluated this patient. I had reviewed the chart and document dictation by the resident physician and aM in agreement with the information documented by the resident physician. Please see documentation by the resident physician for complete chart including past medical history, family medical history, review of systems, current history and physical and laboratory and imaging studies. I was present for all procedures, provided direct supervision for all procedures, was present for the entirety of all procedures and provided direct guidance during the procedures. Please see documentation by the resident physician for any procedures performed. I have reviewed all interpretations of EKGs, and reviewed all EKGs performed on patient's as well. I have also reviewed reports of imaging as provided by radiology.
[2018-11-18] MEDS: Norepinephrine 4 MG in D5% in Water 250 ML IVC SCH (13:47)
[2018-11-18] MEDS ORDERED: D5% in Water 250 ML ONE (14:24)
[2018-11-18] MEDS ORDERED: *HR* Norepinephrine 4 MG/4 ML VIAL IVC ONE (14:24)
--- NOTE | 2018-11-18 14:56 | Emergency Department Note ---
Disposition Clinical Impression: Congestive heart failure, Sepsis, Acute renal failure Disposition: Home, Self-Care Condition: Critical [facility] - General Adult HPI - General Chief complaint: ED Abdominal Pain Time Seen by Provider: 11/18/18 13:40 Source: patient, EMS Limitations: no limitations Nursing Notes Reviewed: Yes Vital Signs Reviewed: Yes - History of Present Illness Pain Scale: 8 - Related Data Home Medications Medication Instructions Recorded Confirmed Amiodarone [Cordarone] 200 mg PO DAILY 04/04/18 10/09/18 Aspirin 81 mg PO DAILY 04/04/18 10/09/18 Finasteride [Proscar] 5 mg PO DAILY 04/04/18 10/09/18 Lubiprostone [Amitiza] 16 mcg PO BIDWM 04/04/18 10/09/18 Pantoprazole Sodium [Protonix] 40 mg PO DAILY@0730 04/04/18 10/09/18 Tamsulosin HCl [Flomax] 0.4 mg PO BID 04/04/18 10/09/18 Tiotropium Br/Olodaterol HCl 2 puff IH DAILY 04/24/18 10/09/18 [Stiolto Respimat Inhal [place]] Insulin ASPART [NovoLOG] 0 unit SQ TIDAC MDD PER SLIDING 04/25/18 10/09/18 SCALE Fluticasone/Salmeterol [Advair 1 puff IH BID 06/30/18 10/09/18 250-50 Diskus] Gabapentin [Neurontin] 400 mg PO BID 06/30/18 10/09/18 Acetaminophen [Tylenol] 650 mg PO Q6HR PRN 07/26/18 10/09/18 Atorvastatin Calcium [Lipitor] 40 mg PO DAILY 07/26/18 10/09/18 DiphenhydraMINE [Benadryl] 25 mg PO HS PRN 07/26/18 10/09/18 Furosemide [Lasix] 20 mg PO DAILY 08/09/18 10/09/18 Capsaicin [High Potency Capsaicin] 1 appl TP QID PRN 08/27/18 10/09/18 Carboxymethylcellulose Sodium 1 drop BOTH EYES TID 08/27/18 10/09/18 [Refresh Liquigel] Cholecalciferol (Vitamin D3) 2,000 unit PO DAILY 08/27/18 10/09/18 [Vitamin D3] Metoprolol Succinate [Toprol Xl] 12.5 mg PO DAILY 08/27/18 10/09/18 NALOXONE 4 MG Nasal [place] [Narcan] 4 mg NS AD 08/27/18 10/09/18 Polyethylene Glycol 3350 17 gm PO DAILY PRN 08/27/18 10/09/18 [Natura-Lax] Potassium Chloride [Klor-Con 10] 40 meq PO DAILY 08/27/18 10/09/18 Saline Nasal [place] [[place] Nasal 2 spray NS Q2H PRN 08/27/18 10/09/18 [place]] Simethicone [Gas-X] 80 mg PO TID PRN 08/27/18 10/09/18 Trazodone HCl 200 mg PO HS 08/27/18 10/09/18 metOLazone [Zaroxolyn] 5 mg PO AD PRN 08/27/18 10/09/18 Docusate [Colace] 300 mg PO HS 09/17/18 10/09/18 Fluticasone Propionate Nasal 1 spray NS BID PRN 09/17/18 10/09/18 [Flonase] Rivaroxaban [Xarelto] 15 mg PO DAILY 09/17/18 10/09/18 Sennosides [Senokot] 17.2 mg PO BID PRN 09/17/18 10/09/18 Tizanidine HCl 2 mg PO BID PRN 09/17/18 10/09/18 OxyCODONE/APAP 10/325 [Percocet 1 tab PO Q8H PRN 10/09/18 10/09/18 10/325 MG] Allergies Allergy/AdvReac Type Severity Reaction Status Date / Time IVP DYE Allergy Severe Anaphylaxis Uncoded 10/09/18 14:23 Past Medical History - Past Medical History Medical history: Reports: arthritis, atrial fibrillation, CHF, COPD, coronary artery disease, CVA, diabetes, GERD, hyperlipidemia, hypertension, pulmonary embolus, renal disease, other Surgical history: Reports: cholecystectomy, herniorrhaphy, knee replacement, orthopedic, other, pacemaker/AICD Psychiatric history: Reports: anxiety, depression, panic disorder, PTSD, previous psychiatric hospitalization - Social History Smoking Status: Former smoker Smokeless Tobacco Status: No Alcohol use: Reports: none Drug use: Reports: none Physical Exam - General Limitations: no limitations General appearance: alert, in no apparent distress Course Vital Signs Temperature 97.8 F 11/18/18 13:36 Pulse Rate 94 11/18/18 13:36 Respiratory Rate 18 11/18/18 13:36 Blood Pressure 104/65 11/18/18 13:36 O2 Sat by Pulse Oximetry 96 11/18/18 13:36 Temperature 97.8 F 11/18/18 13:36 Pulse Rate 94 11/18/18 13:36 Respiratory Rate 18 11/18/18 13:36 Blood Pressure 104/65 11/18/18 13:36 O2 Sat by Pulse Oximetry 96 11/18/18 13:36 Oxygen Delivery Oxygen Delivery Nasal Cannula Attestation Statement - Attestation Attestation: I have seen this patient with the resident physician, I have personally evaluat ed this patient. I had reviewed the chart and document dictation by the resident physician and aM in agreement with the information documented by the resident physician. Please see documentation by the resident physician for complete chart including past medical history, family medical history, review of systems, current history and physical and laboratory and imaging studies. I was present for all procedures, provided direct supervision for all procedures, was present for the entirety of all procedures and provided direct guidance during the procedures. Please see documentation by the resident physician for any procedures performed. I have reviewed all interpretations of EKGs, and reviewed all EKGs performed on patient's as well. I have also reviewed reports of imaging as provided by radiology. [facility] for further management of concerns for sepsis hypotension. Apparently he has recently been admitted with concerns for potential bowel obstruction, as well as abdominal pain chest pain back pain shortness of breath, by reviewing his chart it appears that recently he has had multiple laboratory tests done that have shown an increasing white blood cell count over the last 3 days increasing from 7015, also a acute kidney injury, with a creatinine increased from 1.3-3.2 today from yesterday. There was some concerns that he may be septic but that there was also concerned she may have been over diuresed, they gave him 3 L of fluid, he remained profoundly hypotensive with reported blood pressures as low as 40/20 was started on peripheral norepinephrine, which improved his blood pressure and he was sent here for further evaluation and management. Also reviewing the chart he had a CT scan of the chest abdomen pelvis performed today that showed no significant acute findings, no evidence of aortic aneurysm, this was without contrast with no aneurysm making dissection less likely, intra-abdominal findings were no acute abnormality no evidence of bowel obstruction no evidence of inflammation or perforation. Upon presentation, patient looks chronically ill he does have paperwork that would suggest that he has a DNR CC, however upon discussion with the patient he wants everything done. He does endorse some back pain abdominal pain shortness of breath and not feeling well he is denying current chest pain. [facility] showed evidence of atypical appearance of ST segment with ST elevation in the inferior leads as well as borderline in the anterior leads from EKG from 2 days ago, however when compared to EKG from October there was no significant acute change he did have cardiac enzymes that were negative today. Secondary to significant illness, sepsis order set was utilized we attempted to wean off the norepinephrine the blood pressure dropped from 120 systolic down to 90/50 within 60 seconds of removing the [place] said this was initiated again. Chest x-ray was ordered, which demonstrates evidence for pulmonary edema and a nonspecific abnormality near the right azygous region, requires and will follow- up the patient had a CT scan today from the [facility] which showed no mass at this region. Sepsis order set utilized. Patient started on broad-spectrum antibiotic coverage. Patient will be admitted for further management. Secondary to continued need for intravenous pressure support, with n orepinephrine, we will place a central venous line. Please see Dr. post by the resident physician for this complete procedure note. I was present for this procedure. Total critical care time as provided by myself excluding procedures performed was 50 minutes
[2018-11-18 15:09] LABS: ABG Base Excess 8 mEq/L (-2 to 3); ABG HCO3 33 mEq/L (21-27); ABG Oxygen Saturation 89 % (95-98); ABG PCO2 49 mmHg (35-45); ABG PH 7.45 pH Units (7.32-7.45); ABG PO2 55 mmHg (85-104); ABG TCO2 35 mEq/L (20-26)
[2018-11-18 15:29] LABS: Basophils % 0.2 %; Eosinophils % 0.2 %; Hematocrit 39.8 % (37.5-50.1); Hemoglobin 12.4 g/dL (12.9-16.9); Immature Granulocytes % 0.8 % (0-4); Lymphocytes # 0.5 K/mcL (0.6-4.6); Lymphocytes % 2.7 %; Mean Corpuscular HGB Conc 31.2 g/dL (31.6-35.5); Mean Corpuscular Hemoglobin 27.4 pg (28.0-33.3); Mean Corpuscular Volume 87.9 fL (83.0-100.0); Mean Platelet Volume 9.5 fL (9.4-12.4); Monocytes % 5.4 %; Neutrophils # 16.5 K/mcL (1.6-8.9); Platelet Count 278 K/mcL (140-400); Red Blood Count 4.53 M/mcL (4.19-5.50); Red Cell Distribution Width 16.4 % (11.5-14.5); Segmented Neutrophils % 90.7 %
[2018-11-18 15:32] LABS: Alanine Aminotransferase 194 Units/L (7-52); Albumin 3.4 g/dL (3.5-5.7); Albumin/Globulin Ratio 1.2 (1.1-2.2); Alkaline Phosphatase 135 Units/L (34-104); Aspartate Amino Transferase 135 Units/L (13-39); BUN/Creatinine Ratio 14 (6-26); Bilirubin,Direct 0.3 mg/dL (0.0-0.2); Bilirubin,Indirect 0.5 mg/dL (0.0-1.2); Bilirubin,Total 0.8 mg/dL (0.3-1.0); Blood Urea Nitrogen 39 mg/dL (8-23); Calcium 8.1 mg/dL (8.6-10.3); Carbon Dioxide 31 mEq/L (23-29); Chloride 94 mEq/L (98-107); Globulin 2.8 g/dL (2.4-3.5); Glucose 168 mg/dL (70-105); Lipase 9 Units/L (11-82); Magnesium 2.2 mg/dL (1.6-2.6); Osmolality,Calculated 295 (280-300); Phosphorous 3.1 mg/dL (2.7-4.5); Potassium 3.8 mEq/L (3.5-5.1); Sodium 136 mEq/L (136-145); Total Protein 6.2 g/dL (6.4-8.9); Troponin I < 0.03 ng/mL (< 0.04); eGFR For Non-African Americans 23 (> 60)
[2018-11-18] MEDS: Cefepime HCl 2,000 MG in 0.9 % Sodium Chloride Mini Bag 100 ML IVPB ONE ×2 (15:32→15:44)
[2018-11-18] MEDS: Piperacillin/Tazobactam 3.375 GM in 0.9 % Sodium Chloride Mini Bag 100 ML IVPB ONE ×2 (15:32→15:45)
[2018-11-18 15:41] LABS: INR 1.6; Prothrombin Time 17.9 Seconds (9.4-12.1)
[2018-11-18 15:43] LABS: Activated Partial Thrombo Time 34.4 Seconds (26.0-36.0)
[2018-11-18] MEDS ORDERED: *HR* FentaNYL (PF) 100 MCG/2 ML VIAL IVP ONE (16:03)
--- NOTE | 2018-11-18 17:34 | Internal Med History&Physical ---
Date of Encounter: 11/18/18 Time of Encounter: 17:33 Internal Medicine - H&P: HPI Chief complaint: transferred from [facility] due to severe hypotension requiring norepinephrine in Admitted From: Emergency Dept Plans for Post Hospital Care: Home History of present illness: see impression Past Med Surg Social Fam HX - Past Medical History Medical history: arthritis, atrial fibrillation, CHF, COPD, coronary artery disease, CVA, diabetes, GERD, hyperlipidemia, hypertension, pulmonary embolus, renal disease, other Additional medical history: Pacemaker, emphysema, sick sinus syndrome. chronic knee pain. 3 CVA's. Last CVA April 2018. Psychiatric history: anxiety, depression, panic disorder, PTSD, previous psychiatric hospitalization - Past Surgical History Surgical History: cholecystectomy, herniorrhaphy, knee replacement, orthopedic, other, pacemaker/AICD Additional surgical history: Right knee replacement. Cardiac Ablasion 2014. l eft arm - Social History Smoking Status: Former smoker (quit in 2009) Smokeless Tobacco Status: No Alcohol use: none Drug use: none - Family History Father Adopted: No Family Member Ethnicity: Non- Living Status: Hx Family Cardiac Disorders: No Hx Family Respiratory Disorders: No Hx Family Cancer: Yes Hx Family GI Disorders: No Hx Family Endocrine Disorder: No Hx Family Neuromuscular Disorders: No Hx Family Neurologic Disorders: No Hx Family HEENT Disorders: No Hx Family Autoimmune Disorders: No Brother Family Member Ethnicity: Non- Living Status: Still Living Sister Family Member Ethnicity: Non- Living Status: Still Living Mother Adopted: No Family Member Ethnicity: Non- Twin of Family Member: Yes Living Status: Hx Family Cardiac Disorders: Yes (CHF) Hx Family Respiratory Disorders: No Hx Family Cancer: No Hx Family GI Disorders: No Hx Family Endocrine Disorder: Yes (DM) Hx Family Neuromuscular Disorders: No Hx Family Neurologic Disorders: No Hx Family HEENT Disorders: No Hx Family Autoimmune Disorders: No Internal Medicine - H&P: Meds Amiodarone [Cordarone] 200 mg PO DAILY 04/04/18 [History] Aspirin 81 mg PO DAILY 04/04/18 [History] Finasteride [Proscar] 5 mg PO DAILY 04/04/18 [History] Lubiprostone [Amitiza] 16 mcg PO BIDWM 04/04/18 [History] Pantoprazole Sodium [Protonix] 40 mg PO DAILY@0730 04/04/18 [History] Tamsulosin HCl [Flomax] 0.4 mg PO BID 04/04/18 [History] Tiotropium Br/Olodaterol HCl [Stiolto Respimat Inhal [place]] 2 puff IH DAILY 04/24/18 [History] Insulin ASPART [NovoLOG] 0 unit SQ TIDAC MDD PER SLIDING SCALE 04/25/18 [History] Fluticasone/Salmeterol [Advair 250-50 Diskus] 1 puff IH BID 06/30/18 [History] Gabapentin [Neurontin] 400 mg PO BID 06/30/18 [History] Acetaminophen [Tylenol] 650 mg PO Q6HR PRN 07/26/18 [History] DiphenhydraMINE [Benadryl] 25 mg PO HS PRN 07/26/18 [History] Furosemide [Lasix] 20 mg PO DAILY 08/09/18 [History] Capsaicin [High Potency Capsaicin] 1 appl TP QID PRN 08/27/18 [History] Carboxymethylcellulose Sodium [Refresh Liquigel] 1 drop BOTH EYES TID 08/27/18 [History] Metoprolol Succinate [Toprol Xl] 12.5 mg PO DAILY 08/27/18 [History] Polyethylene Glycol 3350 [Natura-Lax] 17 gm PO DAILY PRN 08/27/18 [History] Potassium Chloride [Klor-Con 10] 20 meq PO BID 08/27/18 [History] Saline Nasal [place] [[place] Nasal [place]] 2 spray NS Q2H PRN 08/27/18 [History] Simethicone [Gas-X] 80 mg PO TID PRN 08/27/18 [History] Trazodone HCl 200 mg PO HS 08/27/18 [History] metOLazone [Zaroxolyn] 5 mg PO DAILY PRN 08/27/18 [History] Docusate [Colace] 300 mg PO HS 09/17/18 [History] Fluticasone Propionate Nasal [Flonase] 1 spray NS BID PRN 09/17/18 [History] Rivaroxaban [Xarelto] 15 mg PO DAILY 09/17/18 [History] Tizanidine HCl 2 mg PO BID PRN 09/17/18 [History] Albuterol Neb [AccuNeb] 0.63 mg IH TID 11/18/18 [History] Atorvastatin [Lipitor] 40 mg PO DAILY 11/18/18 [History] Cholecalciferol (D-3) [Vitamin D] 2,000 unit PO DAILY 11/18/18 [History] Duloxetine HCl [Cymbalta] 60 mg PO DAILY 11/18/18 [History] Hydrocortisone [Cortef] 15 mg PO DAILY 11/18/18 [History] Losartan [Cozaar] 25 mg PO DAILY 11/18/18 [History] Melatonin [Melatin] 9 mg PO HS 11/18/18 [History] Memantine HCl 10 mg PO BID 11/18/18 [History] Oxycodone HCl [Roxybond] 10 mg PO Q8H PRN 11/18/18 [History] Sennosides [Senokot] 17.2 mg PO BID PRN 11/18/18 [History] Sennosides/Docusate Sodium [Docusate Sodium-Sennosides Tab] 1 each PO BID PRN 11/18/18 [History] Spironolactone [Aldactone] 50 mg PO BID 11/18/18 [History] Allergy/AdvReac Type Severity Reaction Status Date / Time IVP DYE Allergy Severe Anaphylaxis Uncoded 10/09/18 14:23 All Systems PM: A 10-system review of systems was performed and is negative for pertinent findings except as documented above in the HPI. - Constitutional Vitals: Temp Pulse Resp BP Pulse Ox 97.8 F 94 18 96/66 92 11/18/18 13:36 11/18/18 16:45 11/18/18 16:45 11/18/18 16:45 11/18/18 16:45 General appearance: Present: cooperative, A&O X 3, no acute distress, obese, answers questions appropriately Exam: . - Head Head exam: Present: atraumatic, normal inspection - Eye Eye exam: Present: normal appearance. Absent: conjunctival injection, scleral icterus - ENT ENT exam: Present: mucous membranes dry, normal external ear exam - Neck Neck exam general surgery: Present: normal inspection, supple. Absent: nuchal rigidity Additional comments: Right IJ CVC - Respiratory Respiratory exam: Present: decreased breath sounds (at bases). Absent: ac cessory muscle use, chest wall tenderness, prolonged expiratory phase, rales, respiratory distress, rhonchi, wheezes, tachypnea - Cardiovascular Cardiovascular exam: Present: RRR, +S1, +S2 - GI/Abdominal GI/Abdominal exam: Present: distended (modertaely distended), hypoactive bowel sounds (presnet in all 4 wuadrants), soft, tenderness (mild diffuse, more in left hypochondrium), no peritoneal signs. Absent: firm, guarding, rebound, rigid - exam: Present: normal inspection. Absent: scrotal swelling Additional comments: Indwelling urinary catheter in place, with bag full of adryan colored urine - Extremities Exam Extremities exam: Present: normal inspection, pedal edema (1+ bilaterally symmetrical), warm, radial pulses palpable and symmetrical. Absent: calf tenderness, tenderness - Neurological Exam Neurological exam: Present: alert, CN II-XII intact (grossly), oriented X3, no focal deficits (gross). Absent: facial droop, speech deficit - Psychiatric Psychiatric exam: Present: normal affect, normal mood - Skin Skin exam: Present: normal color, warm Internal Med - H&P Results - Labs CBC & Chem 7: 11/18/18 14:54 11/18/18 14:54 Labs: Short CBC 11/18/18 Range/Units 14:54 WBC 18.2 H (4.3-11.1) K/mcL Hgb 12.4 L (12.9-16.9) g/dL Hct 39.8 (37.5-50.1) % Plt Count 278 (140-400) K/mcL Neutrophils # 16.5 H (1.6-8.9) K/mcL BMP 11/18/18 14:54 Sodium 136 Potassium 3.8 Chloride 94 L Carbon Dioxide 31 H BUN 39 H Creatinine 2.72 H Glucose 168 H Calcium 8.1 L Cardiac Enzymes 11/18/18 Range/Units 14:54 Troponin I < 0.03 (< 0.04) ng/mL Liver Function 11/18/18 Range/Units 14:54 Total Bilirubin 0.8 (0.3-1.0) mg/dL Direct Bilirubin 0.3 H (0.0-0.2) mg/dL AST 135 H (13-39) Units/L ALT 194 H (7-52) Units/L Alkaline Phosphatase 135 H (34-104) Units/L Albumin 3.4 L (3.5-5.7) g/dL - ABG Interpretation ABG results: 11/18/18 15:05 ABG pH 7.45 ABG pCO2 49 H ABG pO2 55 L ABG HCO3 33 H ABG Total CO2 35 H ABG O2 Saturation 89 L ABG Base Excess 8 H - Impressions ITS Impressions Chest X-Ray 11/18/18 13:42 IMPRESSION: Pulmonary edema. New rounded density of the upper right mediastinum. This may be due to enlargement of the azygous vein although a mass or adenopathy is not excluded and follow-up to ensure resolution is needed either with a follow-up chest x-ray after treatment, or a follow-up chest CT. D/ / Forrest De La Garza MD / Forrest De La Garza MD Interpreting Provider: Forrest De La Garza MD Chest X-Ray 11/18/18 15:27 IMPRESSION: Interval placement of right jugular central venous catheter. No pneumothorax. D/ / Shani Rice Cha, MD / Shani Rice Cha, MD Interpreting Provider: Shani Rice Cha, MD - Assessment and Plan (1) Acute renal failure Current Visit: Yes Status: Acute Qualifiers: Acute renal failure type: unspecified Qualified Code(s): N17.9 - Acute kidney failure, unspecified (2) CHF (congestive heart failure) Current Visit: Yes Status: Chronic Qualifiers: Qualified Code(s): I50.9 - Heart failure, unspecified (3) A-fib Current Visit: No Status: Acute Qualifiers: Atrial fibrillation type: chronic Qualified Code(s): I48.2 - Chronic atrial fibrillation (4) AG (acute kidney injury) Current Visit: No Status: Acute (5) Abdominal distension Current Visit: No Status: Acute (6) Abdominal pain Current Visit: No Status: Acute Qualifiers: Abdominal location: generalized Qualified Code(s): R10.84 - Generalized abdominal pain (7) DVT prophylaxis Current Visit: No Status: Acute (8) Diabetes Current Visit: No Status: Acute Qualifiers: Diabetes mellitus type: type 2 Diabetes mellitus [facility] insulin use: with [facility] use Diabetes mellitus complication status: with kidney c omplications Diabetes mellitus complication detail: with chronic kidney d isease Chronic kidney disease stage: stage 2 (mild) Qualified Code(s): E11.22 - Type 2 diabetes mellitus with diabetic chronic kidney disease; N18.2 - Chronic kidney disease, stage 2 (mild); Z79.4 - intermediate manager (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 of insulin (9) Hypocortisolism Current Visit: No Status: Acute (10) Hypokalemia Current Visit: No Status: Acute (11) Peripheral edema Current Visit: No Status: Acute (12) Atrial fibrillation Current Visit: No Status: Chronic Qualifiers: Atrial fibrillation type: paroxysmal Qualified Code(s): I48.0 - Paroxysmal atrial fibrillation (13) Cerebrovascular accident Current Visit: No Status: Chronic Qualifiers: CVA mechanism: embolism Precerebral and cerebral artery: unspecified cerebral artery Qualified Code(s): I63.40 - Cerebral infarction due to embolism of unspecified cerebral artery (14) Shock Current Visit: Yes Status: Acute - Summary of Assessment and Plan Summary of Assessment and Plan: 68 year old man with multiple medical problems including CHF and adrenal insufficiency has been hospitalized frequently over the last 4 years. for the last 6 months, he has been having frequent episodes of hypotension. About 4-6 weeks ago, he was diagnosed with adrenal insufficiency. 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 His Lasix was stopped. He did well for about a week after discharge. The he gained weight from baseline of 260-265 lb to 308 lb and was readmitted ot [facility] about a week ago. There he was diuresed. His Cr increased from 1.2 on 11/17 to 3.2 on 11/18 and he developed severe hypotension with BP of 40/20 on 11/18, hence he received 2-3 L of IV fluids, IV hydrocortisone 100 mg and was started on norepinephrine infusion and sent to [facility] ER. Of note, his WBC increased from 7k on 11/13 to 15k on 11/18/18. In addition to above, he reported that for the last 4 days, his abdomen has been progressively getting distended along with diffuse abdominal pain. His last BM was 2 days ago, and he is passing flatus today, albeit in small amounts. A Ct scan of chest and abdomen without contrast did not show acute abnormality. ROS: reports headache, dizziness, nasuea, vomiting 2 days ago, bloating for 4 days, left > right abdominal pain 8/10 in severity, mild exertional dyspnea, alternating chills and sweats, cough without phlegm, orthopnea and overall feeling unwell. No palpitations, syncope, fevers, diarrhea, dysuria, new focal motor deficits or other symptoms. Full code per discussion with patient with family at bedside [facility]18 WBC 7k 11/17/18 K 3.1 Cr 1.2 11/18/18 WBC 15k K 3.4 Cr 3.28 Lipase 29 Lactate 2.[address] chest: mild emphysema. Subsegmental atelactasis. Calcified coronaries. Trace pleural effusions. CT abd/pelvis: No acute abnormality. Fat-containing abdominal hernia. Cholecystectomy. Increased size of left renal cyst. 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 - Autonomic dysfunction with recurrent hypotension despite prior history of systemic HTN - Diabetes mellitus well-controlled, HbA1C 6.6% in 07/2018 - Rheumatoid arthritis was on methotrexate years ago - GERD / hiatal hernia - Chronic back pain - MRSA carrier - Depression Assessment/Plan: # Undifferentiated Shock # Acute kidney injury, due to above - hypovolemic (overdiuresis) vs septic (leukocytosis) vs circulatory (adrenal insufficiency) - not in cardiogenic shock (warm, normal mental status, quickly responding to treatment and has normal LVEF) - lactate 2.3 - Continue norpeinpehrine gtt, goal MAP > 60-65 - Cont stress dose hydrocortisone - Empiric Vancomycin + Zosyn for 48 hours - Check blood cultures, urine cultures - Would avoid further IV fluids - Hold spironolactone, furosemide, metolazone, metoprolol, valsartan, tamsulosin - If pressor requirements go up, will consider A-line insertion - Repeat labs at midnight # Heart failure with preserved ejection fraction - recent exacerbation with weight 308 lb --> 282 lb on 11/17/18 --? 287 lb on 11/18/18 after IVF resuscitation - previous baseline weight was 265 lb but current weight could be his dry weight with BNP of 22 - hold further diuresis at this time - Cardiology consult in AM # Abdominal pain and distension, could be early ileus - No signs of acute abdomen, normal lipase, mildly elevated lactate - CT without intestinal obstruction at this time - BS are hypoactive and tinkly but present, I recommended NG tube but patient is very apprehensive, so we agree on watching at the moment - Bowel rest for now - Insert NG tube if he vomits even once or has increased abdominal pain / decrease in flatus - check US RUQ assess liver and gall bladder - consider bowel regimen as he improves - doubt ischemic bowel, but keep in differential - General surgery consult in AM - may need Gi consult # Paroxysmal atrial fibrillation # Tachy-amanda syndrome s/p pacer (MRI non-compatible) - currently sinus - Hold Xarelto today in the setting of AG case he needs a procedure, consider resuming tomorrow - Interrogate device tomorrow, r/o arrhythmia - Hold amiodarone until abdominal issues resolved # Hx CVA x 3 - with mild residual right sided deficit and RUE tremor; no new deficits today monitor # Adrenal insufficiency # Suspected Arian's - K was as low as 2.6 at DC, spironolactone was increased from 25 daily to 50 BID a couple of days ago - stress dose steroids as above # Autonomic dysfunction - avoid agents affecting BP (tamsulosin, furosemide/metolazone/spironolactone simultaneously listed on home meds) - fall precautions # Diabetes mellitus - well-controlled, HbA1C 6.6% in 07/2018 no insulin now with AG hold ARB due to AG # Rheumatoid arthritis - OP f/u # Chronic back pain Hold gabapentin due to AG and tremor # DVT prophylaxis on Xarelto previously, resume tomorrow if no procedure needed # Polypharmacy on 38 medicines per list, multiple recent changes as OP and as inpatient - minimize home meds prior to discharge - Time Spent With Patient Total time spent is greater than 50% in coordination of care (as documented) at patient's floor/unit and/or counseling patient:
[2018-11-18 18:01] LABS: Bilirubin,Urine Negative (Negative); Blood,Urine Moderate (Negative); Clarity,Urine Clear (Clear); Color,Urine Yellow (Yellow); Glucose,Urine (UA) Normal (Normal); Ketones,Urine Negative (Negative); Leukocyte Esterase,Urine Trace (Negative); Nitrite,Urine Negative (Negative); Protein,Urine 30 mg/dL (Neg-Trace); Specific Gravity,Urine 1.015 (1.010-1.025); Urobilinogen,Urine Normal (Normal)
[2018-11-18 18:03] LABS: Bacteria,Urine None Seen per hpf (None-Few); Hyaline Casts,Urine None Seen per lpf (None-Few); Squamous Epithelial Cell,Urine Many per lpf (None-Few)
[2018-11-18] MEDS ORDERED: Naloxone 0.4 MG/ML INJ IVP PRN (18:37)
[2018-11-18] MEDS ORDERED: Fluticasone Propionate Nasal 50 MCG/SPRAY BOTTLE NS PRN (18:49)
[2018-11-18] MEDS ORDERED: Saline Nasal Spray 44 ML BOTTLE NS PRN (18:49)
[2018-11-18] MEDS ORDERED: Capsaicin 0.025% 60 GM TUBE TP PRN (18:49)
[2018-11-18] MEDS ORDERED: VANCOMYCIN IVPB SCH (19:00)
[2018-11-18] MEDS ORDERED: SODIUM CHLORIDE 0.9% IVPB SCH (19:00)
[2018-11-18] MEDS ORDERED: Piperacillin/Tazobactam 3.375 GM in 0.9 % Sodium Chloride Mini Bag 100 ML IVPB SCH (21:00)
[2018-11-18] MEDS: Hydrocortisone Sodium Succ 100 MG/2 ML VIAL IVP SCH ×2 (21:13→23:06)
[2018-11-18] MEDS: Piperacillin/Tazobactam 3.375 GM in 0.9 % Sodium Chloride Mini Bag 100 ML IVPB SCH (21:13)
[2018-11-18] MEDS: *HR* FentaNYL (PF) 100 MCG/2 ML VIAL IVP PRN (21:13)
[2018-11-18 21:50] LABS: Basophils % 0.2 %; Eosinophils # 0.2 K/mcL (0.0-0.6); Eosinophils % 1.3 %; Hematocrit 37.9 % (37.5-50.1); Hemoglobin 11.5 g/dL (12.9-16.9); Immature Granulocytes % 0.5 % (0-4); Lymphocytes # 0.9 K/mcL (0.6-4.6); Lymphocytes % 6.5 %; Mean Corpuscular HGB Conc 30.3 g/dL (31.6-35.5); Mean Corpuscular Hemoglobin 26.9 pg (28.0-33.3); Mean Corpuscular Volume 88.6 fL (83.0-100.0); Mean Platelet Volume 9.5 fL (9.4-12.4); Monocytes # 1.2 K/mcL (0.0-1.3); Monocytes % 9.2 %; Neutrophils # 10.8 K/mcL (1.6-8.9); Platelet Count 239 K/mcL (140-400); Red Blood Count 4.28 M/mcL (4.19-5.50); Red Cell Distribution Width 16.5 % (11.5-14.5); Segmented Neutrophils % 82.3 %
[2018-11-18 22:11] LABS: Albumin 3.1 g/dL (3.5-5.7); Albumin/Globulin Ratio 1.1 (1.1-2.2); Bilirubin,Total 0.6 mg/dL (0.3-1.0); Calcium 8.1 mg/dL (8.6-10.3); Globulin 2.7 g/dL (2.4-3.5); Potassium 3.8 mEq/L (3.5-5.1); Total Protein 5.8 g/dL (6.4-8.9)
[2018-11-18] MEDS: Budesonide/Formoterol 80/4.5 MDI IH SCH (22:13)
[2018-11-18] MEDS ORDERED: Dextrose Gel 15 GM/37.5 ML TUBE PO PRN ×2 (22:29)
[2018-11-18] MEDS ORDERED: *HR* Dextrose 50 % in Water (Syg) 50 ML SYRINGE IVP PRN (22:29)
[2018-11-18] MEDS ORDERED: D5% in Water 1,000 ML IVC PRN (22:29)
[2018-11-18] MEDS: Insulin LISPRO 300 UNITS/3 ML VIAL SQ SCH (23:37)
[2018-11-19 03:55] LABS: Basophils % 0.2 %; Eosinophils % 0.2 %; Hematocrit 37.4 % (37.5-50.1); Hemoglobin 11.6 g/dL (12.9-16.9); Immature Granulocytes % 0.8 % (0-4); Lymphocytes # 0.4 K/mcL (0.6-4.6); Lymphocytes % 3.6 %; Mean Corpuscular Hemoglobin 27.4 pg (28.0-33.3); Mean Corpuscular Volume 88.4 fL (83.0-100.0); Mean Platelet Volume 9.5 fL (9.4-12.4); Monocytes # 0.4 K/mcL (0.0-1.3); Monocytes % 3.1 %; Neutrophils # 11.2 K/mcL (1.6-8.9); Platelet Count 235 K/mcL (140-400); Red Blood Count 4.23 M/mcL (4.19-5.50); Red Cell Distribution Width 16.7 % (11.5-14.5); Segmented Neutrophils % 92.1 %
[2018-11-19 04:15] LABS: Alanine Aminotransferase 154 Units/L (7-52); Albumin 3.2 g/dL (3.5-5.7); Albumin/Globulin Ratio 1.2 (1.1-2.2); Alkaline Phosphatase 117 Units/L (34-104); Aspartate Amino Transferase 80 Units/L (13-39); BUN/Creatinine Ratio 21 (6-26); Bilirubin,Total 0.6 mg/dL (0.3-1.0); Blood Urea Nitrogen 30 mg/dL (8-23); Calcium 8.3 mg/dL (8.6-10.3); Carbon Dioxide 30 mEq/L (23-29); Chloride 99 mEq/L (98-107); Globulin 2.7 g/dL (2.4-3.5); Glucose 146 mg/dL (70-105); Osmolality,Calculated 293 (280-300); Potassium 3.9 mEq/L (3.5-5.1); Sodium 137 mEq/L (136-145); Total Protein 5.9 g/dL (6.4-8.9); eGFR For Non-African Americans 50 (> 60)
[2018-11-19] MEDS: Insulin LISPRO 300 UNITS/3 ML VIAL SQ SCH ×4 (05:17→23:45)
[2018-11-19] MEDS: Hydrocortisone Sodium Succ 100 MG/2 ML VIAL IVP SCH ×3 (05:19→17:51)
--- NOTE | 2018-11-19 08:45 | Event Note ---
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 Issa was placed on surgery list. Noted consult placed to Dr. Nye on 11/18/2018; No call completed (per order). Reviewed with Dr. Ortiz that Dr. Nye is out at this time and previous order cancelled. Dr. Ortiz to assess patient and if surgical consult is indicated, call the Acute Care Surgeon medical record consultant. Surgery will be happy to evaluate this patient if our service is indicated.
[2018-11-19] MEDS: *HR* FentaNYL (PF) 100 MCG/2 ML VIAL IVP PRN ×2 (08:55→13:02)
[2018-11-19] MEDS: Piperacillin/Tazobactam 3.375 GM in 0.9 % Sodium Chloride Mini Bag 100 ML IVPB SCH ×2 (08:55→17:51)
--- NOTE | 2018-11-19 10:18 | Electrocardiograph Report ---
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
--- NOTE | 2018-11-19 10:48 | Internal Med Progress Note ---
Hospitalist Progress Note - Encounter Date of Encounter: 11/19/18 Time of Encounter: 10:47 - Subjective Interval History: Patient is still complaining of abdominal pain and distention. Reviewed vitals with normal blood pressure. Review the lab with tending down white count and better creatinine level. Denied fever chills vomiting headache dizziness chest pain short of breath diarrhea. Last BM 2 days ago with occasional gas pass along with nausea - Exam Vitals: Temp Pulse Resp BP Pulse Ox 97.8 F 81 14 124/79 90 11/19/18 07:59 11/19/18 09:00 11/19/18 09:00 11/19/18 09:00 11/19/18 09:00 Exam: General appearance: No acute distress, A&O X 3, obese, communicative Head exam: Atraumatic Eye exam: EOMI, PERRLA ENT exam: Moist oral mucosa Neck nontender, supple, right IJ CVC Respiratory exam: Decreased breath sound at bases bilaterally. 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 No facial droop. Normal speech. . - Summary of Assessment and Plan Summary of Assessment and Plan: 68 year old man with multiple medical problems including CHF and adrenal insufficiency has been hospitalized frequently over the last 4 years. for the last 6 months, he has been having frequent episodes of hypotension. About 4-6 weeks ago, he was diagnosed with adrenal insufficiency. Due to severe hypokalemia, [place]'s disease was suspected. His Lasix was stopped. He did well for about a week after discharge. The he gained weight from baseline of 260-265 lb to 308 lb and was readmitted ot [facility] about a week ago. There he was diuresed. His Cr increased from 1.2 on 11/17 to 3.2 on 11/18 and he developed severe hypotension with BP of 40/20 on 11/18, hence he received 2-3 L of IV fluids, IV hydrocortisone 100 mg and was started on norepinephrine infusion and sent to [facility]. Of note, his WBC increased from 7k on 11/13 to 15k on 11/18/18. In addition to above, he reported that for the last 4 days, his abdomen has been progressively getting distended along with diffuse abdominal pain. His last BM was 2 days ago, and he is passing flatus today, albeit in small amounts. A Ct scan of chest and abdomen without contrast did not show acute abnormality. Assessment/Plan: Undifferentiated Shock-improving. Hypovolemic versus septic shock versus circulatory due to adrenal insufficiency. Does not appear in cardiogenic shock. Lactate normal now. No AP drip stopped. Continue hydrocortisone IV. Continue empiric antibiotic vancomycin and Zosyn. Urine culture blood culture with no growth. Avoid further IV fluids.- Hold spironolactone, furosemide, metolazone, metoprolol, valsartan, tamsulosin. Acute kidney injury- as above. better Heart failure with preserved ejection fraction-CHF exacerbation Acute on chronic diastoic CHF. Echocardiogram 10/10/18-LVEF 60-65%. Normal LV chamber size, wall thickness and function. LHC 10/09/18- normal coronary arteries, EF 40%. Exacerbation likely due to recent change in medications. Also not strict with low sodium diet. IV diuresis given and pt became hyotensive and developed AG and hypokalemia. Consulted cardiology. Cautious diuresis. A strict I&O's and daily weight Abdominal pain and distension- could be early ileus or partial small bowel obstruction based on KUB x-ray. Ultrasound abdomen benign finding. Patient refused nasogastric tube. Consulted general surgeon. No signs of acute abdomen at this time. Normal lipase level. Will consider CT abdomen if needed Paroxysmal atrial fibrillation- History of afib s/p AF ablation at [facility] in 2016. Was on amiodarone at home. Verified on [place] records. Will restart. Restart xarelto , on renal dosing. Tachy-amanda syndrome s/p pacer (MRI non-compatible)- H/o SSS s/p PPM. - currently sinus. 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 Accu-Chek, SSI, diabetes Rheumatoid arthritis - OP f/u Chronic back pain Hold gabapentin due to AG and tremor DVT prophylaxis on Xarelto Polypharmacy - minimize home meds prior to discharge Spent more than 35 minute inpatient care in communication with nursing staff, consultants, patient - Time Spent with Patient Total time spent is greater than 50% in coordination of care (as documented) at patient's floor/unit and/or counseling patient: Greater than 35 minutes Plan of Care Discussed with: patient Internal Medicine: Result - Labs CBC & Chem 7: 11/19/18 03:30 11/19/18 03:30 Labs: Short CBC 11/18/18 11/18/18 11/19/18 Range/Units 14:54 21:37 03:30 WBC 18.2 H 13.1 H 12.1 H (4.3-11.1) K/mcL Hgb 12.4 L 11.5 L 11.6 L (12.9-16.9) g/dL Hct 39.8 37.9 37.4 L (37.5-50.1) % Plt Count 278 239 235 (140-400) K/mcL Neutrophils # 16.5 H 10.8 H 11.2 H (1.6-8.9) K/mcL BMP 11/18/18 11/18/18 11/19/18 14:54 21:37 03:30 Sodium 136 137 137 Potassium 3.8 3.8 3.9 Chloride 94 L 99 99 Carbon Dioxide 31 H 31 H 30 H BUN 39 H 34 H 30 H Creatinine 2.72 H 1.80 H 1.40 H Glucose 168 H 115 H 146 H Calcium 8.1 L 8.1 L 8.3 L Cardiac Enzymes 11/18/18 Range/Units 14:54 Troponin I < 0.03 (< 0.04) ng/mL Liver Function 11/18/18 11/18/18 11/19/18 Range/Units 14:54 21:37 03:30 Total Bilirubin 0.8 0.6 0.6 (0.3-1.0) mg/dL Direct Bilirubin 0.3 H (0.0-0.2) mg/dL AST 135 H 97 H 80 H (13-39) Units/L ALT 194 H 163 H 154 H (7-52) Units/L Alkaline Phosphatase 135 H 119 H 117 H (34-104) Units/L Albumin 3.4 L 3.1 L 3.2 L (3.5-5.7) g/dL Urine 11/18/18 Range/Units 17:51 Urine Color Yellow (Yellow) Urine Clarity Clear (Clear) Urine pH 6.0 (5.0-8.0) pH Units Ur Specific [place] 1.015 (1.010-1.025) Urine Protein 30 H (Neg-Trace) mg/dL Urine Glucose (UA) Normal (Normal) mg/dL - ABG Interpretation ABG results: ABG ABG pH 7.45 pH Units (7.32-7.45) 11/18/18 15:05 ABG pCO2 49 mmHg (35-45) H 11/18/18 15:05 ABG pO2 55 mmHg (85-104) L 11/18/18 15:05 ABG O2 Saturation 89 % (95-98) L 11/18/18 15:05 PT/INR, D-dimer PT 17.9 Seconds (9.4-12.1) H 11/18/18 14:54 - Impressions Impressions Chest X-Ray 11/18/18 13:42 IMPRESSION: Pulmonary edema. New rounded density of the upper right mediastinum. This may be due to enlargement of the azygous vein although a mass or adenopathy is not excluded and follow-up to ensure resolution is needed either with a follow-up chest x-ray after treatment, or a follow-up chest CT. D/ / Forrest De L aGarza MD / Forrest De La Garza MD Interpreting Provider: Forrest De La Garza MD Chest X-Ray 11/18/18 15:27 IMPRESSION: Interval placement of right jugular central venous catheter. No pneumothorax. D/ / Shani Rice Cha, MD / Shani Rice Cha, MD Interpreting Provider: Shani Rice Cha, MD Abdomen Ultrasound 11/19/18 09:00 IMPRESSION: The kidneys are not obstructed. Status post cholecystectomy. D/ / 11/19/2018 09:50:11 Wu Kenny MD / pina Interpreting Provider: Wu Kenny MD Consult Discharge Plan - Plan [facility]errals: [facility] [Primary Care Provider] -
--- NOTE | 2018-11-19 10:59 | Internal Med Progress Note ---
Hospitalist Progress Note - Encounter Date of Encounter: 11/19/18 Time of Encounter: 10:58 - Exam Vitals: Temp Pulse Resp BP Pulse Ox 97.8 F 84 14 128/76 93 11/19/18 07:59 11/19/18 10:00 11/19/18 10:00 11/19/18 10:00 11/19/18 10:00 - Time Spent with Patient Total time spent is greater than 50% in coordination of care (as documented) at patient's floor/unit and/or counseling patient: Internal Medicine: Result - Labs CBC & Chem 7: 11/19/18 03:30 11/19/18 03:30 Labs: Short CBC 11/18/18 11/18/18 11/19/18 Range/Units 14:54 21:37 03:30 WBC 18.2 H 13.1 H 12.1 H (4.3-11.1) K/mcL Hgb 12.4 L 11.5 L 11.6 L (12.9-16.9) g/dL Hct 39.8 37.9 37.4 L (37.5-50.1) % Plt Count 278 239 235 (140-400) K/mcL Neutrophils # 16.5 H 10.8 H 11.2 H (1.6-8.9) K/mcL BMP 11/18/18 11/18/18 11/19/18 14:54 21:37 03:30 Sodium 136 137 137 Potassium 3.8 3.8 3.9 Chloride 94 L 99 99 Carbon Dioxide 31 H 31 H 30 H BUN 39 H 34 H 30 H Creatinine 2.72 H 1.80 H 1.40 H Glucose 168 H 115 H 146 H Calcium 8.1 L 8.1 L 8.3 L Cardiac Enzymes 11/18/18 Range/Units 14:54 Troponin I < 0.03 (< 0.04) ng/mL Liver Function 11/18/18 11/18/18 11/19/18 Range/Units 14:54 21:37 03:30 Total Bilirubin 0.8 0.6 0.6 (0.3-1.0) mg/dL Direct Bilirubin 0.3 H (0.0-0.2) mg/dL AST 135 H 97 H 80 H (13-39) Units/L ALT 194 H 163 H 154 H (7-52) Units/L Alkaline Phosphatase 135 H 119 H 117 H (34-104) Units/L Albumin 3.4 L 3.1 L 3.2 L (3.5-5.7) g/dL Urine 11/18/18 Range/Units 17:51 Urine Color Yellow (Yellow) Urine Clarity Clear (Clear) Urine pH 6.0 (5.0-8.0) pH Units Ur Specific [place] 1.015 (1.010-1.025) Urine Protein 30 H (Neg-Trace) mg/dL Urine Glucose (UA) Normal (Normal) mg/dL - ABG Interpretation ABG results: ABG ABG pH 7.45 pH Units (7.32-7.45) 11/18/18 15:05 ABG pCO2 49 mmHg (35-45) H 11/18/18 15:05 ABG pO2 55 mmHg (85-104) L 11/18/18 15:05 ABG O2 Saturation 89 % (95-98) L 11/18/18 15:05 PT/INR, D-dimer PT 17.9 Seconds (9.4-12.1) H 11/18/18 14:54 - Impressions Impressions Chest X-Ray 11/18/18 13:42 IMPRESSION: Pulmonary edema. New rounded density of the upper right mediastinum. This may be due to enlargement of the azygous vein although a mass or adenopathy is not excluded and follow-up to ensure resolution is needed either with a follow-up chest x-ray after treatment, or a follow-up chest CT. D/ / Forrest De La Garza MD / Forrest De La Garza MD Interpreting Provider: Forrest De La Garza MD Chest X-Ray 11/18/18 15:27 IMPRESSION: Interval placement of right jugular central venous catheter. No pneumothorax. D/ / Shani Rice Cha, MD / Shani Rice Cha, MD Interpreting Provider: Shani Rice Cha, MD Abdomen Ultrasound 11/19/18 09:00 IMPRESSION: The kidneys are not obstructed. Status post cholecystectomy. D/ / 11/19/2018 09:50:11 Wu Kenny MD / pina Interpreting Provider: Wu Kenny MD Consult Discharge Plan - Plan [facility]errals: [facility] [Primary Care Provider] -
[2018-11-19] MEDS: Budesonide/Formoterol 80/4.5 MDI IH SCH ×2 (11:28→19:53)
--- NOTE | 2018-11-19 11:30 | Cardiology Consult Note ---
Date of Encounter: 11/19/18 Time of Encounter: 10:00 Assessment and Plan (1) CHF exacerbation Current Visit: No Status: Acute Acute on chronic diastoic CHF. Echocardiogram 10/10/18-LVEF 60-65%. Normal LV chamber size, wall thickness and function. LHC 10/09/18- normal coronary arteries, EF 40%. Exacerbation likely due to recent change in medications. Also not strict with low sodium diet. IV diuresis given and pt became hyotensive and developed AG and hypokalemia. BLE edema improved at [facility] per pt. Baseline weight is 270 lbs. Currently 289lbs. Continues to have fluid overload on exam. Kidney function now at baseline. Off norepinephrine. Cautious diuresis recommended. Strict I&O and daily weights. Qualifiers: Heart failure type: diastolic Qualified Code(s): I50.33 - Acute on chronic diastolic (congestive) heart failure (2) Paroxysmal a-fib Current Visit: No Status: Chronic History of afib s/p AF ablation at [facility] in 2016. Was on amiodarone at home. Verified on [place] records. Will restart. Restart xarelto , on renal dosing. (3) Pacemaker Current Visit: No Status: Chronic H/o SSS s/p PPM. (4) AG (acute kidney injury) Current Visit: No Status: Acute AG/ CKD , hypotension, and hypokalemia after diuretic use. IV diuresis with caution. Monitor potassium. (5) Adrenal insufficiency Current Visit: No Status: Suspected Recent diagnosis of maile's disease at [facility]. Records ordered. Primary team managing. Discussion w patient/family: The assessment and plan as outlined above was discussed with the patient and/or family members who expressed understanding and agreement. All questions were answered. Thank you for involving us in the care of your patient. Please call with any questions. History of Present Illness Consult date: 11/19/18 Requesting physician: Jean Marie Puckett Consult reason: CHF Chief complaint: 40 lb weight gain, BLE edema, abdominal bloating, kidney failure. History of present illness: Mr. Issa is a 68 year old male with past medical history of atrial fibrillation s/p AF ablation in 2016, SSS s/p PPM, chronic HFpEF, recent diagnosis of maile's disease, PE, CVA, HTN, DM, and CKD. He presented from the [facility] with CHF, acute on chronic kidney disease, and hypotension requiring pressor support. He initially was admitted to the [facility] several days ago for CHF exacerbation and was treated with IV diuretic. He states he gained 40 lbs prior to admission and wt was 308lbs on admission. Baseline weight is 270lbs. He states he lost about 20 lbs at the [facility] with IV diuretic. At the [facility] he developed worsening kidney function, hypokalemia and hypotension and required transfer here for further care. He states he is hospitalized once every two months for CHF. His lasix and multiple other medications was discontinued 3 and 1/2 weeks ago during a stay at [facility]. He states that he was diagnosed with Addisions's disease at that time. We will order records. Past Med Surg Social Fam HX - Past Medical History Medical history: arthritis, atrial fibrillation, CHF, COPD, CVA, diabetes, GERD, hyperlipidemia, hypertension, pulmonary embolus, renal disease, other Additional medical history: Pacemaker, emphysema, sick sinus syndrome. chronic knee pain. 3 CVA's. Last CVA April 2018. Psychiatric history: anxiety, depression, panic disorder, PTSD, previous psychiatric hospitalization - Past Surgical History Surgical History: herniorrhaphy Additional surgical history: Right knee replacement. Cardiac Ablasion 2014. left arm - Social History Smoking Status: Former smoker Smokeless Tobacco Status: No Alcohol use: none Drug use: none - Family History Father Adopted: No Family Member Ethnicity: Non- Living Status: Hx Family Cardiac Disorders: No Hx Family Respiratory Disorders: No Hx Family Cancer: Yes Hx Family GI Disorders: No Hx Family Endocrine Disorder: No Hx Family Neuromuscular Disorders: No Hx Family Neurologic Disorders: No Hx Family HEENT Disorders: No Hx Family Autoimmune Disorders: No Brother Family Member Ethnicity: Non- Living Status: Still Living Sister Family Member Ethnicity: Non- Living Status: Still Living Mother Adopted: No Family Member Ethnicity: Non- Twin of Family Member: Yes Living Status: Hx Family Cardiac Disorders: Yes (CHF) Hx Family Respiratory Disorders: No Hx Family Cancer: No Hx Family GI Disorders: No Hx Family Endocrine Disorder: Yes (DM) Hx Family Neuromuscular Disorders: No Hx Family Neurologic Disorders: No Hx Family HEENT Disorders: No Hx Family Autoimmune Disorders: No Medications and Allergies Amiodarone [Cordarone] 200 mg PO DAILY 04/04/18 [History] Aspirin 81 mg PO DAILY 04/04/18 [History] Finasteride [Proscar] 5 mg PO DAILY 04/04/18 [History] Lubiprostone [Amitiza] 16 mcg PO BIDWM 04/04/18 [History] Pantoprazole Sodium [Protonix] 40 mg PO DAILY@0730 04/04/18 [History] Tamsulosin HCl [Flomax] 0.4 mg PO BID 04/04/18 [History] Tiotropium Br/Olodaterol HCl [Stiolto Respimat Inhal [place]] 2 puff IH DAILY 04/24/18 [History] Insulin ASPART [NovoLOG] 0 unit SQ TIDAC MDD PER SLIDING SCALE 04/25/18 [History] Fluticasone/Salmeterol [Advair 250-50 Diskus] 1 puff IH BID 06/30/18 [History] Gabapentin [Neurontin] 400 mg PO BID 06/30/18 [History] Acetaminophen [Tylenol] 650 mg PO Q6HR PRN 07/26/18 [History] DiphenhydraMINE [Benadryl] 25 mg PO HS PRN 07/26/18 [History] Furosemide [Lasix] 20 mg PO DAILY 08/09/18 [History] Capsaicin [High Potency Capsaicin] 1 appl TP QID PRN 08/27/18 [History] Carboxymethylcellulose Sodium [Refresh Liquigel] 1 drop BOTH EYES TID 08/27/18 [History] Metoprolol Succinate [Toprol Xl] 12.5 mg PO DAILY 08/27/18 [History] Polyethylene Glycol 3350 [Natura-Lax] 17 gm PO DAILY PRN 08/27/18 [History] Potassium Chloride [Klor-Con 10] 20 meq PO BID 08/27/18 [History] Saline Nasal [place] [[place] Nasal [place]] 2 spray NS Q2H PRN 08/27/18 [History] Simethicone [Gas-X] 80 mg PO TID PRN 08/27/18 [History] Trazodone HCl 200 mg PO HS 08/27/18 [History] metOLazone [Zaroxolyn] 5 mg PO DAILY PRN 08/27/18 [History] Docusate [Colace] 300 mg PO HS 09/17/18 [History] Fluticasone Propionate Nasal [Flonase] 1 spray NS BID PRN 09/17/18 [History] Rivaroxaban [Xarelto] 15 mg PO DAILY 09/17/18 [History] Tizanidine HCl 2 mg PO BID PRN 09/17/18 [History] Albuterol Neb [AccuNeb] 0.63 mg IH TID 11/18/18 [History] Atorvastatin [Lipitor] 40 mg PO DAILY 11/18/18 [History] Cholecalciferol (D-3) [Vitamin D] 2,000 unit PO DAILY 11/18/18 [History] Duloxetine HCl [Cymbalta] 60 mg PO DAILY 11/18/18 [History] Hydrocortisone [Cortef] 15 mg PO DAILY 11/18/18 [History] Losartan [Cozaar] 25 mg PO DAILY 11/18/18 [History] Melatonin [Melatin] 9 mg PO HS 11/18/18 [History] Memantine HCl 10 mg PO BID 11/18/18 [History] Oxycodone HCl [Roxybond] 10 mg PO Q8H PRN 11/18/18 [History] Sennosides [Senokot] 17.2 mg PO BID PRN 11/18/18 [History] Sennosides/Docusate Sodium [Docusate Sodium-Sennosides Tab] 1 each PO BID PRN 11/18/18 [History] Spironolactone [Aldactone] 50 mg PO BID 11/18/18 [History] Allergy/AdvReac Type Severity Reaction Status Date / Time IVP DYE Allergy Severe Anaphylaxis Uncoded 10/09/18 14:23 All Systems Review: The remainder of the systems were reviewed and are negative Physical Examination Vital Signs, Last 4 Hours Temp Pulse Resp BP Pulse Ox 11/19/18 10:00 84 14 128/76 93 11/19/18 09:00 81 14 124/79 90 11/19/18 08:00 75 15 106/82 91 11/19/18 07:59 97.8 F General: Conversant, No Apparent Distress HEENT: Atraumatic, Normocephaly, Mucus Membranes Moist Neck: No JVD, Normal carotid pulses Cardiac: Reg Rate and Rhythm, Normal S1 and S2, No Murmur Lungs: Normal Breath Sounds, No Wheeze, Rales, Rhonchi Neuro: Alert and responsive, No focal deficits noted Abdomen: Soft, Non-Tender, Other (Abdomen large and round but soft) Skin: No rashes noted on visualized skin Musculoskeletal: No Chest Wall Tenderness Extremities: No Clubbing, No Cyanosis, Other (2+ pitting edema BLE) Results 11/19/18 03:30 11/19/18 03:30 Lab Results 11/18/18 11/18/18 11/18/18 14:54 14:54 14:54 WBC 18.2 H Hgb 12.4 L Hct 39.8 Plt Count 278 INR 1.6 APTT 34.4 Sodium 136 Potassium 3.8 Chloride 94 L Carbon Dioxide 31 H BUN 39 H Creatinine 2.72 H Glucose 168 H Calcium 8.1 L Magnesium 2.2 Total Bilirubin 0.8 AST 135 H ALT 194 H Alkaline Phosphatase 135 H Troponin I < 0.03 B-Natriuretic Peptide Lipase 9 L 11/18/18 11/18/18 11/18/18 14:54 21:37 21:37 WBC 13.1 H Hgb 11.5 L Hct 37.9 Plt Count 239 INR APTT Sodium 137 Potassium 3.8 Chloride 99 Carbon Dioxide 31 H BUN 34 H Creatinine 1.80 H Glucose 115 H Calcium 8.1 L Magnesium Total Bilirubin 0.6 AST 97 H ALT 163 H Alkaline Phosphatase 119 H Troponin I B-Natriuretic Peptide 22 Lipase 11/19/18 11/19/18 03:30 03:30 WBC 12.1 H Hgb 11.6 L Hct 37.4 L Plt Count 235 INR APTT Sodium 137 Potassium 3.9 Chloride 99 Carbon Dioxide 30 H BUN 30 H Creatinine 1.40 H Glucose 146 H Calcium 8.3 L Magnesium Total Bilirubin 0.6 AST 80 H ALT 154 H Alkaline Phosphatase 117 H Troponin I B-Natriuretic Peptide Lipase - Imaging and Cardiology Echo: report reviewed Cardiac cath: report reviewed - EKG Interpretation EKG results cardiology: personally reviewed, normal ECG, sinus rhythm Consult Discharge Plan - Plan Referrals: [facility] [Primary Care Provider] -
[2018-11-19] MEDS: *HR* Amiodarone 200 MG TABLET PO SCH (13:01)
[2018-11-19] MEDS: Norepinephrine 4 MG in D5% in Water 250 ML IVC SCH (13:06)
--- NOTE | 2018-11-19 13:51 | AcuteCare Surgery Consult Note ---
<Alexandre Torrez N - Last Filed: 11/19/18 14:40> Date of Encounter: 11/19/18 Time of Encounter: 14:40 Assessment and Plan (1) Ileus Current Visit: No Status: Resolved -68-year-old male who was admitted with CHF exacerbation and AG complains of 4- 5 day history of abdominal pain, nausea, vomiting, and distention -Patient declined NG tube overnight -On exam, his abdomen is distended and he has tenderness to palpation worse on the left -Obtain KUB which showed gaseous distention of the small and large bowel with moderate amount of fecal material in the colon -Suspect that a significant amount of patient's abdominal pain, gaseous distention, nausea and vomiting are secondary to constipation -We will order a mag citrate enema -Recommend clear liquids for now limited to 300 mL daily -Uploaded patient's CT scan to PACS, we will review images once uploaded is complete History of Present Illness Consult date: 11/19/18 History of present illness: Patient is a 68-year-old male with multiple comorbidities including CHF and adrenal insufficiency who was transferred from the [place] for severe hypotension, congestive heart failure, and AG. Acute care surgery was consult did for a 4-5 day history of diffuse generalized abdominal pain. Patient states that the pain associated with nausea, decreased appetite, and 2 episodes of vomiting. He also states that he appears bloated and distended and that his abdomen is firm. Patient admits to constipation for several days, stating that he has had to strain significantly and produced little to no stool. Denies any fevers or c hills. Reportedly CT abdomen and pelvis was collected at the [facility] and was unremarkable. Recommend a KUB today which showed distention of the small and large bowel suggestive for ileus. There was moderate amount of retained fecal debris in the right and left colon. Past Med Surg Social Fam HX - Past Medical History Medical history: arthritis, atrial fibrillation, CHF, COPD, CVA, diabetes, GERD, hyperlipidemia, hypertension, pulmonary embolus, renal disease, other Additional medical history: Pacemaker, emphysema, sick sinus syndrome. chronic knee pain. 3 CVA's. Last CVA April 2018. Psychiatric history: anxiety, depression, panic disorder, PTSD, previous psychiatric hospitalization - Past Surgical History Surgical History: herniorrhaphy Additional surgical history: Right knee replacement. Cardiac Ablasion 2014. left arm - Social History Smoking Status: Former smoker Smokeless Tobacco Status: No Alcohol use: none Drug use: none - Family History Father Adopted: No Family Member Ethnicity: Non- Living Status: Hx Family Cardiac Disorders: No Hx Family Respiratory Disorders: No Hx Family Cancer: Yes Hx Family GI Disorders: No Hx Family Endocrine Disorder: No Hx Family Neuromuscular Disorders: No Hx Family Neurologic Disorders: No Hx Family HEENT Disorders: No Hx Family Autoimmune Disorders: No Brother Family Member Ethnicity: Non- Living Status: Still Living Sister Family Member Ethnicity: Non- Living Status: Still Living Mother Adopted: No Family Member Ethnicity: Non- Twin of Family Member: Yes Living Status: Hx Family Cardiac Disorders: Yes (CHF) Hx Family Respiratory Disorders: No Hx Family Cancer: No Hx Family GI Disorders: No Hx Family Endocrine Disorder: Yes (DM) Hx Family Neuromuscular Disorders: No Hx Family Neurologic Disorders: No Hx Family HEENT Disorders: No Hx Family Autoimmune Disorders: No Medications and Allergies Amiodarone [Cordarone] 200 mg PO DAILY 04/04/18 [History] Aspirin 81 mg PO DAILY 04/04/18 [History] Finasteride [Proscar] 5 mg PO DAILY 04/04/18 [History] Lubiprostone [Amitiza] 16 mcg PO BIDWM 04/04/18 [History] Pantoprazole Sodium [Protonix] 40 mg PO DAILY@0730 04/04/18 [History] Tamsulosin HCl [Flomax] 0.4 mg PO BID 04/04/18 [History] Tiotropium Br/Olodaterol HCl [Stiolto Respimat Inhal [place]] 2 puff IH DAILY 04/24/18 [History] Insulin ASPART [NovoLOG] 0 unit SQ TIDAC MDD PER SLIDING SCALE 04/25/18 [History] Fluticasone/Salmeterol [Advair 250-50 Diskus] 1 puff IH BID 06/30/18 [History] Gabapentin [Neurontin] 400 mg PO BID 06/30/18 [History] Acetaminophen [Tylenol] 650 mg PO Q6HR PRN 07/26/18 [History] DiphenhydraMINE [Benadryl] 25 mg PO HS PRN 07/26/18 [History] Furosemide [Lasix] 20 mg PO DAILY 08/09/18 [History] Capsaicin [High Potency Capsaicin] 1 appl TP QID PRN 08/27/18 [History] Carboxymethylcellulose Sodium [Refresh Liquigel] 1 drop BOTH EYES TID 08/27/18 [History] Metoprolol Succinate [Toprol Xl] 12.5 mg PO DAILY 08/27/18 [History] Polyethylene Glycol 3350 [Natura-Lax] 17 gm PO DAILY PRN 08/27/18 [History] Potassium Chloride [Klor-Con 10] 20 meq PO BID 08/27/18 [History] Saline Nasal [place] [[place] Nasal [place]] 2 spray NS Q2H PRN 08/27/18 [History] Simethicone [Gas-X] 80 mg PO TID PRN 08/27/18 [History] Trazodone HCl 200 mg PO HS 08/27/18 [History] metOLazone [Zaroxolyn] 5 mg PO DAILY PRN 08/27/18 [History] Docusate [Colace] 300 mg PO HS 09/17/18 [History] Fluticasone Propionate Nasal [Flonase] 1 spray NS BID PRN 09/17/18 [History] Rivaroxaban [Xarelto] 15 mg PO DAILY 09/17/18 [History] Tizanidine HCl 2 mg PO BID PRN 09/17/18 [History] Albuterol Neb [AccuNeb] 0.63 mg IH TID 11/18/18 [History] Atorvastatin [Lipitor] 40 mg PO DAILY 11/18/18 [History] Cholecalciferol (D-3) [Vitamin D] 2,000 unit PO DAILY 11/18/18 [History] Duloxetine HCl [Cymbalta] 60 mg PO DAILY 11/18/18 [History] Hydrocortisone [Cortef] 15 mg PO DAILY 11/18/18 [History] Losartan [Cozaar] 25 mg PO DAILY 11/18/18 [History] Melatonin [Melatin] 9 mg PO HS 11/18/18 [History] Memantine HCl 10 mg PO BID 11/18/18 [History] Oxycodone HCl [Roxybond] 10 mg PO Q8H PRN 11/18/18 [History] Sennosides [Senokot] 17.2 mg PO BID PRN 11/18/18 [History] Sennosides/Docusate Sodium [Docusate Sodium-Sennosides Tab] 1 each PO BID PRN 11/18/18 [History] Spironolactone [Aldactone] 50 mg PO BID 11/18/18 [History] Allergy/AdvReac Type Severity Reaction Status Date / Time IVP DYE Allergy Severe Anaphylaxis Uncoded 10/09/18 14:23 Review of Systems All systems PM: The remainder of the systems were reviewed and are negative - Constitutional no chills, no fever(s) - Cardiovascular no chest pain - Respiratory dyspnea - Gastrointestinal abdominal pain, bloating, constipation, nausea, vomiting, no diarrhea, no hematochezia, no melena - Integumentary no rash General Surgery Exam Initial Vital Signs Pulse BP 97 96/62 11/18/18 13:35 11/18/18 13:35 - General physical appearance well developed, well nourished, no distress - Eyes PERRL, normal ocular movement - ENT normal pinna, normal nares - Neck trachea midline, no venous distension - Respiratory normal expansion, normal respiratory effort - Cardiovascular Cardiovascular exam: Present: RRR - Abdomen Abdomen general surgery: Present: distended, tender (Tender to moderate palpation, especially in the left lower quadrant). Absent: guarding - Integumentary Integumentary general surgery: Present: warm and dry - Musculoskeletal Present: normal posture - Psychiatric Psychiatric general surgery: Present: A&Ox3 Exam Initial Vital Signs Pulse BP 97 96/62 11/18/18 13:35 11/18/18 13:35 Results - Labs 11/19/18 03:30 11/19/18 03:30 Abnormal lab results WBC 12.1 K/mcL (4.3-11.1) H 11/19/18 03:30 Hgb 11.6 g/dL (12.9-16.9) L 11/19/18 03:30 Hct 37.4 % (37.5-50.1) L 11/19/18 03:30 MCH 27.4 pg (28.0-33.3) L 11/19/18 03:30 MCHC 31.0 g/dL (31.6-35.5) L 11/19/18 03:30 RDW 16.7 % (11.5-14.5) H 11/19/18 03:30 11.2 K/mcL (1.6-8.9) H 11/19/18 03:30 0.4 K/mcL (0.6-4.6) L 11/19/18 03:30 PT 17.9 Seconds (9.4-12.1) H 11/18/18 14:54 ABG pCO2 49 mmHg (35-45) H 11/18/18 15:05 ABG pO2 55 mmHg (85-104) L 11/18/18 15:05 ABG HCO3 33 mEq/L (21-27) H 11/18/18 15:05 ABG Total CO2 35 mEq/L (20-26) H 11/18/18 15:05 ABG O2 Saturation 89 % (95-98) L 11/18/18 15:05 ABG Base Excess 8 mEq/L (-2 to 3) H 11/18/18 15:05 Chloride 94 mEq/L (98-107) L 11/18/18 14:54 Carbon Dioxide 30 mEq/L (23-29) H 11/19/18 03:30 BUN 30 mg/dL (8-23) H 11/19/18 03:30 1.40 mg/dL (0.70-1.30) H 11/19/18 03:30 Est GFR ( Amer) 46 (> 60) L 11/18/18 21:37 Est GFR (Non-Af Amer) 50 (> 60) L 11/19/18 03:30 Glucose 146 mg/dL (70-105) H 11/19/18 03:30 POC Glucose 123 mg/dL (70-99) H 11/19/18 12:01 Calcium 8.3 mg/dL (8.6-10.3) L 11/19/18 03:30 0.3 mg/dL (0.0-0.2) H 11/18/18 14:54 AST 80 Units/L (13-39) H 11/19/18 03:30 ALT 154 Units/L (7-52) H 11/19/18 03:30 117 Units/L (34-104) H 11/19/18 03:30 5.9 g/dL (6.4-8.9) L 11/19/18 03:30 3.2 g/dL (3.5-5.7) L 11/19/18 03:30 9 Units/L (11-82) L 11/18/18 14:54 30 mg/dL (Neg-Trace) H 11/18/18 17:51 Moderate (Negative) H 11/18/18 17:51 Ur Leukocyte Esterase Trace (Negative) H 11/18/18 17:51 5-15 per hpf (0-3) H 11/18/18 17:51 5-15 per hpf (0-3) H 11/18/18 17:51 Ur Squamous Epith Cells Many per lpf (None-Few) H 11/18/18 17:51 Ur Culture Indicated? YES (NO) A 11/18/18 17:51 Vancomycin Trough 15 mcg/mL (5-10) H 11/19/18 03:30 Diabetes panel 11/18/18 11/18/18 11/19/18 Range/Units 14:54 21:37 03:30 Sodium 136 137 137 (136-145) mEq/L Potassium 3.8 3.8 3.9 (3.5-5.1) mEq/L Chloride 94 L 99 99 (98-107) mEq/L Carbon Dioxide 31 H 31 H 30 H (23-29) mEq/L BUN 39 H 34 H 30 H (8-23) mg/dL Creatinine 2.72 H 1.80 H 1.40 H (0.70-1.30) mg/dL Glucose 168 H 115 H 146 H (70-105) mg/dL Calcium 8.1 L 8.1 L 8.3 L (8.6-10.3) mg/dL AST 135 H 97 H 80 H (13-39) Units/L ALT 194 H 163 H 154 H (7-52) Units/L Alkaline Phosphatase 135 H 119 H 117 H (34-104) Units/L Albumin 3.4 L 3.1 L 3.2 L (3.5-5.7) g/dL Calcium panel 11/18/18 11/18/18 11/19/18 Range/Units 14:54 21:37 03:30 Calcium 8.1 L 8.1 L 8.3 L (8.6-10.3) mg/dL Phosphorus 3.1 (2.7-4.5) mg/dL Albumin 3.4 L 3.1 L 3.2 L (3.5-5.7) g/dL Pituitary panel 11/18/18 11/18/18 11/19/18 Range/Units 14:54 21:37 03:30 Sodium 136 137 137 (136-145) mEq/L Potassium 3.8 3.8 3.9 (3.5-5.1) mEq/L Chloride 94 L 99 99 (98-107) mEq/L Carbon Dioxide 31 H 31 H 30 H (23-29) mEq/L BUN 39 H 34 H 30 H (8-23) mg/dL Creatinine 2.72 H 1.80 H 1.40 H (0.70-1.30) mg/dL Glucose 168 H 115 H 146 H (70-105) mg/dL Calcium 8.1 L 8.1 L 8.3 L (8.6-10.3) mg/dL Adrenal panel 11/18/18 11/18/18 11/19/18 Range/Units 14:54 21:37 03:30 Sodium 136 137 137 (136-145) mEq/L Potassium 3.8 3.8 3.9 (3.5-5.1) mEq/L Chloride 94 L 99 99 (98-107) mEq/L Carbon Dioxide 31 H 31 H 30 H (23-29) mEq/L BUN 39 H 34 H 30 H (8-23) mg/dL Creatinine 2.72 H 1.80 H 1.40 H (0.70-1.30) mg/dL Glucose 168 H 115 H 146 H (70-105) mg/dL Calcium 8.1 L 8.1 L 8.3 L (8.6-10.3) mg/dL Total Bilirubin 0.8 0.6 0.6 (0.3-1.0) mg/dL AST 135 H 97 H 80 H (13-39) Units/L ALT 194 H 163 H 154 H (7-52) Units/L Alkaline Phosphatase 135 H 119 H 117 H (34-104) Units/L Albumin 3.4 L 3.1 L 3.2 L (3.5-5.7) g/dL All other labs normal. Consult Discharge Plan - Plan [facility]errals: [facility]Primary Care Provider[facility] - <Jere Valente - Last Filed: 11/19/18 15:10> Date of Encounter: 11/19/18 Review of Systems All systems PM: The remainder of the systems were reviewed and are negative General Surgery Exam Initial Vital Signs Pulse BP 97 96/62 11/18/18 13:35 11/18/18 13:35 Exam Initial Vital Signs Pulse BP 97 96/62 11/18/18 13:35 11/18/18 13:35 Results - Labs 11/19/18 03:30 11/19/18 03:30 Abnormal lab results WBC 12.1 K/mcL (4.3-11.1) H 11/19/18 03:30 Hgb 11.6 g/dL (12.9-16.9) L 11/19/18 03:30 Hct 37.4 % (37.5-50.1) L 11/19/18 03:30 MCH 27.4 pg (28.0-33.3) L 11/19/18 03:30 MCHC 31.0 g/dL (31.6-35.5) L 11/19/18 03:30 RDW 16.7 % (11.5-14.5) H 11/19/18 03:30 11.2 K/mcL (1.6-8.9) H 11/19/18 03:30 0.4 K/mcL (0.6-4.6) L 11/19/18 03:30 PT 17.9 Seconds (9.4-12.1) H 11/18/18 14:54 ABG pCO2 49 mmHg (35-45) H 11/18/18 15:05 ABG pO2 55 mmHg (85-104) L 11/18/18 15:05 ABG HCO3 33 mEq/L (21-27) H 11/18/18 15:05 ABG Total CO2 35 mEq/L (20-26) H 11/18/18 15:05 ABG O2 Saturation 89 % (95-98) L 11/18/18 15:05 ABG Base Excess 8 mEq/L (-2 to 3) H 11/18/18 15:05 Chloride 94 mEq/L (98-107) L 11/18/18 14:54 Carbon Dioxide 30 mEq/L (23-29) H 11/19/18 03:30 BUN 30 mg/dL (8-23) H 11/19/18 03:30 1.40 mg/dL (0.70-1.30) H 11/19/18 03:30 Est GFR ( Amer) 46 (> 60) L 11/18/18 21:37 Est GFR (Non-Af Amer) 50 (> 60) L 11/19/18 03:30 Glucose 146 mg/dL (70-105) H 11/19/18 03:30 POC Glucose 123 mg/dL (70-99) H 11/19/18 12:01 Calcium 8.3 mg/dL (8.6-10.3) L 11/19/18 03:30 0.3 mg/dL (0.0-0.2) H 11/18/18 14:54 AST 80 Units/L (13-39) H 11/19/18 03:30 ALT 154 Units/L (7-52) H 11/19/18 03:30 117 Units/L (34-104) H 11/19/18 03:30 5.9 g/dL (6.4-8.9) L 11/19/18 03:30 3.2 g/dL (3.5-5.7) L 11/19/18 03:30 9 Units/L (11-82) L 11/18/18 14:54 30 mg/dL (Neg-Trace) H 11/18/18 17:51 Moderate (Negative) H 11/18/18 17:51 Ur Leukocyte Esterase Trace (Negative) H 11/18/18 17:51 5-15 per hpf (0-3) H 11/18/18 17:51 5-15 per hpf (0-3) H 11/18/18 17:51 Ur Squamous Epith Cells Many per lpf (None-Few) H 11/18/18 17:51 Ur Culture Indicated? YES (NO) A 11/18/18 17:51 Vancomycin Trough 15 mcg/mL (5-10) H 11/19/18 03:30 Diabetes panel 11/18/18 11/18/18 11/19/18 Range/Units 14:54 21:37 03:30 Sodium 136 137 137 (136-145) mEq/L Potassium 3.8 3.8 3.9 (3.5-5.1) mEq/L Chloride 94 L 99 99 (98-107) mEq/L Carbon Dioxide 31 H 31 H 30 H (23-29) mEq/L BUN 39 H 34 H 30 H (8-23) mg/dL Creatinine 2.72 H 1.80 H 1.40 H (0.70-1.30) mg/dL Glucose 168 H 115 H 146 H (70-105) mg/dL Calcium 8.1 L 8.1 L 8.3 L (8.6-10.3) mg/dL AST 135 H 97 H 80 H (13-39) Units/L ALT 194 H 163 H 154 H (7-52) Units/L Alkaline Phosphatase 135 H 119 H 117 H (34-104) Units/L Albumin 3.4 L 3.1 L 3.2 L (3.5-5.7) g/dL Calcium panel 11/18/18 11/18/18 11/19/18 Range/Units 14:54 21:37 03:30 Calcium 8.1 L 8.1 L 8.3 L (8.6-10.3) mg/dL Phosphorus 3.1 (2.7-4.5) mg/dL Albumin 3.4 L 3.1 L 3.2 L (3.5-5.7) g/dL Pituitary panel 11/18/18 11/18/18 11/19/18 Range/Units 14:54 21:37 03:30 Sodium 136 137 137 (136-145) mEq/L Potassium 3.8 3.8 3.9 (3.5-5.1) mEq/L Chloride 94 L 99 99 (98-107) mEq/L Carbon Dioxide 31 H 31 H 30 H (23-29) mEq/L BUN 39 H 34 H 30 H (8-23) mg/dL Creatinine 2.72 H 1.80 H 1.40 H (0.70-1.30) mg/dL Glucose 168 H 115 H 146 H (70-105) mg/dL Calcium 8.1 L 8.1 L 8.3 L (8.6-10.3) mg/dL Adrenal panel 11/18/18 11/18/18 11/19/18 Range/Units 14:54 21:37 03:30 Sodium 136 137 137 (136-145) mEq/L Potassium 3.8 3.8 3.9 (3.5-5.1) mEq/L Chloride 94 L 99 99 (98-107) mEq/L Carbon Dioxide 31 H 31 H 30 H (23-29) mEq/L BUN 39 H 34 H 30 H (8-23) mg/dL Creatinine 2.72 H 1.80 H 1.40 H (0.70-1.30) mg/dL Glucose 168 H 115 H 146 H (70-105) mg/dL Calcium 8.1 L 8.1 L 8.3 L (8.6-10.3) mg/dL Total Bilirubin 0.8 0.6 0.6 (0.3-1.0) mg/dL AST 135 H 97 H 80 H (13-39) Units/L ALT 194 H 163 H 154 H (7-52) Units/L Alkaline Phosphatase 135 H 119 H 117 H (34-104) Units/L Albumin 3.4 L 3.1 L 3.2 L (3.5-5.7) g/dL All other labs normal. - Attending Attestation I examined this patient and my medical decision-making was reviewed with the Resident Physician. I agree with the documented findings, disposition and treatment plan as described except to the extent set forth below. The patient is seen and evaluated in the intensive care unit. His cares discussed with the resident and the acute care surgery team. His abdomen is somewhat distended and very mildly tender area CAT scan of the abdomen and chest done at the [facility] was reported negative. A follow-up flat plate of the abdomen demonstrated mild ileus, however, this appears to be mostly large bowel. He has some buildup of feculent material in the colon. Findings are consistent with mild diffuse ileus and constipation. He will be treated with magnesium citrate. Jere Valente MD FACS
[2018-11-19] MEDS: *HR* Rivaroxaban 15 MG TABLET PO SCH (15:45)
[2018-11-19] MEDS: Furosemide 20 MG/2 ML VIAL IVP SCH (15:45)
[2018-11-19] MEDS ORDERED: *HR* Rivaroxaban 15 MG TABLET PO SCH (17:00)
[2018-11-19] MEDS ORDERED: Piperacillin/Tazobactam 3.375 GM VIAL ONE (17:40)
[2018-11-19] MEDS ORDERED: Hydrocortisone Sodium Succ 100 MG/2 ML VIAL IVP SCH (19:00)
[2018-11-19] MEDS ORDERED: Piperacillin/Tazobactam 3.375 GM in 0.9 % Sodium Chloride Mini Bag 100 ML IVPB SCH (20:00)
[2018-11-20] MEDS: Hydrocortisone Sodium Succ 100 MG/2 ML VIAL IVP SCH ×5 (00:18→23:54)
[2018-11-20] MEDS: Piperacillin/Tazobactam 3.375 GM in 0.9 % Sodium Chloride Mini Bag 100 ML IVPB SCH ×3 (02:44→17:00)
[2018-11-20] MEDS: Insulin LISPRO 300 UNITS/3 ML VIAL SQ SCH ×4 (06:00→21:37)
[2018-11-20] MEDS: Budesonide/Formoterol 80/4.5 MDI IH SCH ×2 (07:11→21:56)
--- NOTE | 2018-11-20 07:58 | AcuteCareSurgery Progress Note ---
<OksanaмарияAlexandre N - Last Filed: 11/20/18 07:55> Date of Encounter: 11/20/18 Time of Encounter: 07:56 - Assessment and Plan (1) Constipation Current Visit: No Status: Resolved -68-year-old male who was admitted with CHF exacerbation and AG complains of 4- 5 day history of abdominal pain, nausea, vomiting, and distention -KUB showed gaseous distention with small and large bowel with moderate amount of fecal material in the colon -Patient received mag citrate and had 2 recorded bowel movements overnight -We will give one more dose of magnesium citrate today. Acute care surgery will sign off. Please reconsult with any further questions. Qualifiers: Constipation type: unspecified constipation type Qualified Code(s): K59.00 - Constipation, unspecified Subjective Narrative: Patient seen and examined at bedside. He had two recorded bowel movements yesterday. Abdomen is nontender on palpation today. Objective Vital Signs - Last 8 Hours Temp Pulse Resp BP Pulse Ox 11/20/18 07:11 18 91 11/20/18 03:22 98.0 F 80 14 132/80 94 11/20/18 00:08 97.9 F 82 16 145/87 95 Intake and Output 11/19/18 11/19/18 11/20/18 15:59 23:59 07:59 Intake Total 250 / 820 470 / 820 60 / 60 Output Total 500 / 2450 1300 / 2450 Balance -250 / -1630 -830 / -1630 60 / 60 Intake: IV Fluids 100 / 550 350 / 550 Zosyn 3.375 GM In 0.9 % Sodium 100 / 300 100 / 300 Chloride (Mini-Bag +) 100 ML @ 25 mls/hr IVPB Q8H [facility] Rx#: [id number] Vancocin 1,500 MG In 0.9 % 250 / 250 Sodium Chloride 250 ML @ 166.67 mls/hr IVPB Q24H [facility] Rx#: [id number] Oral 150 / 270 120 / 270 60 / 60 Output: Catheter 500 / 2450 1300 / 2450 Other: Stool Size Moderate Small Stool Consistency loose liquid Stool Color Brown Brown Weight 141.5 kg Blood Glucose* 123 130 116 Patient Weight 11/20/18 23:59 Weight 141.5 kg - General physical appearance well developed, well nourished - Eyes PERRL, normal ocular movement - ENT normal pinna, normal nares - Neck Neck exam: trachea midline, no venous distension - Respiratory normal expansion, normal respiratory effort - Cardiovascular Cardiovascular exam: Present: RRR - Abdomen Abdomen: Present: bowel sounds present, soft, non tender - Labs 11/19/18 03:30 11/19/18 03:30 Consult Discharge Plan - Plan [facility]errals: [facility] [Primary Care Provider] - 12/05/18 12:45 pm <Jaylene Davis F - Last Filed: 11/20/18 11:09> Date of Encounter: 11/20/18 Objective Vital Signs - Last 8 Hours Temp Pulse Resp BP Pulse Ox 11/20/18 07:55 98.1 F 76 18 144/88 93 11/20/18 07:11 18 91 11/20/18 03:22 98.0 F 80 14 132/80 94 Intake and Output 11/19/18 11/20/18 11/20/18 23:59 07:59 15:59 Intake Total 470 / 820 160 / 160 Output Total 1300 / 2450 Balance -830 / -1630 160 / 160 Intake: IV Fluids 350 / 550 100 / 100 Zosyn 3.375 GM In 0.9 % Sodium 100 / 100 100 / 100 Chloride (Mini-Bag +) 100 ML @ 25 mls/hr IVPB Q8H [facility] Rx#: [id number] Vancocin 1,500 MG In 0.9 % 250 / 250 Sodium Chloride 250 ML @ 166.67 mls/hr IVPB Q24H [facility] Rx#: [id number] Oral 120 / 270 60 / 60 Output: Catheter 1300 / 2450 Other: Stool Size Moderate Small Large Stool Consistency loose liquid soft Stool Color Brown Brown Brown Weight 141.5 kg Blood Glucose* 130 116 Patient Weight 11/20/18 23:59 Weight 141.5 kg - Labs 11/19/18 03:30 11/20/18 10:37 Diabetes panel 11/20/18 Range/Units 10:37 BUN 32 H (8-23) mg/dL Creatinine 1.19 (0.70-1.30) mg/dL Pituitary panel 11/20/18 Range/Units 10:37 BUN 32 H (8-23) mg/dL Creatinine 1.19 (0.70-1.30) mg/dL Adrenal panel 11/20/18 Range/Units 10:37 BUN 32 H (8-23) mg/dL Creatinine 1.19 (0.70-1.30) mg/dL - Attending Attestation I examined this patient and my medical decision-making was reviewed with the Resident Physician. I agree with the documented findings, disposition and treatment plan as described except to the extent set forth below.
[2018-11-20] MEDS: *HR* Amiodarone 200 MG TABLET PO SCH (09:38)
[2018-11-20] MEDS: Aspirin 81 MG TAB.CHEW PO SCH (09:38)
[2018-11-20] MEDS: Furosemide 20 MG/2 ML VIAL IVP SCH ×2 (09:38→17:01)
[2018-11-20 11:08] LABS: BUN/Creatinine Ratio 27 (6-26); Blood Urea Nitrogen 32 mg/dL (8-23); eGFR For Non-African Americans > 60 (> 60)
--- NOTE | 2018-11-20 11:13 | Internal Med Progress Note ---
Hospitalist Progress Note - Encounter Date of Encounter: 11/20/18 Time of Encounter: 11:13 - Subjective Interval History: No acute event overnight. His abdomen pain better and passing flatus. Reviewed the vitals. Morning that pending. Denies fever chills vomiting headache dizziness chest pain shortness of breath diarrhea. Complain of mild nausea but willing to eat. - Exam Vitals: Temp Pulse Resp BP Pulse Ox 98.1 F 76 18 144/88 93 11/20/18 07:55 11/20/18 07:55 11/20/18 07:55 11/20/18 07:55 11/20/18 07:55 Exam: General appearance: No acute distress, A&O X 3, obese, communicative Head exam: Atraumatic Eye exam: EOMI, PERRLA ENT exam: Moist oral mucosa Neck nontender, supple Respiratory exam: Decreased breath sound at bases bilaterally. No wheeze crackles or rhonchi Cardiovascular exam: Regular rate and rhythm, no systolic murmur Abdominal exam: Soft with mild diffuse tenderness positive bowel sounds . no rebound tenderness rigidity. Chang catheter in place Extremities exam: No calf tenderness, +1 bilateral pedal edema Present: Skin-no rash, warm, dry, intact Neurological exam: Alert, awake, oriented 3, CN II-XII intact, no focal deficits. No facial droop. Normal speech. . - Summary of Assessment and Plan Summary of Assessment and Plan: 68 year old man with multiple medical problems including CHF and adrenal insufficiency has been hospitalized frequently over the last 4 years. for the last 6 months, he has been having frequent episodes of hypotension. About 4-6 weeks ago, he was diagnosed with adrenal insufficiency. 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 His Lasix was stopped. He did well for about a week after discharge. The he gained weight from baseline of 260-265 lb to 308 lb and was readmitted ot [facility] about a week ago. There he was diuresed. His Cr increased from 1.2 on 11/17 to 3.2 on 11/18 and he developed severe hypotension with BP of 40/20 on 11/18, hence he received 2-3 L of IV fluids, IV hydrocortisone 100 mg and was started on norepinephrine infusion and sent to [facility] ER. Of note, his WBC increased from 7k on 11/13 to 15k on 11/18/18. In addition to above, he reported that for the last 4 days, his abdomen has been progressively getting distended along with diffuse abdominal pain. His last BM was 2 days ago, and he is passing flatus today, albeit in small amounts. A Ct scan of chest and abdomen without contrast did not show acute abnormality. Assessment/Plan: Undifferentiated Shock-improved. Hypovolemic versus septic shock versus circulatory due to adrenal insufficiency. Does not appear in cardiogenic shock. Lactate normal now. No AP drip stopped. Continue hydrocortisone IV. Continue empiric antibiotic vancomycin and Zosyn. Urine culture blood culture with no growth. Avoid further IV fluids.- on admission -on Hold spironolactone, furosemide, metolazone, metoprolol, valsartan, tamsulosin- restarted furosemide and metoprolol today while monitoring blood pressure and heart rate. Acute kidney injury- improved. Heart failure with preserved ejection fraction-CHF exacerbation Acute on chronic diastoic CHF. Echocardiogram 10/10/18-LVEF 60-65%. Normal LV chamber size, wall thickness and function. LHC 10/09/18- normal coronary arteries, EF 40%. Exacerbation likely due to recent change in medications. Also not strict with low sodium diet. IV diuresis given and pt became hyotensive and developed AG and hypokalemia. Consulted cardiology. Cautious diuresis. Restarted home diuretics as mentioned above. A strict I&O's and daily weight Is per cardiology note-recommended Lasix 40 mg daily upon discharge Abdominal pain and distension- improving. could be early ileus or partial small bowel obstruction based on KUB x-ray. Ultrasound abdomen benign finding. Patient refused nasogastric tube. Consulted general surgeon who advise for magnesium citrate enema. No signs of acute abdomen at this time. Normal lipase level. Will advance the diet as per surgeon advice. Paroxysmal atrial fibrillation- no RVR. History of afib s/p AF ablation at [facility] in 2016. Was on amiodarone at home. [facility] Continue amiodarone, beta brisa and xarelto , on renal dosing. Tachy-amanda syndrome s/p pacer (MRI non-compatible)- H/o SSS s/p PPM. - currently sinus. 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 Will decrease hydrocortisone frequency every 8 hours instead every 6 hours and further tapering tomorrow. Patient has been on chronic steroid at home. - K was as low as 2.6 at [place], spironolactone was increased from 25 daily to 50 BID a couple of days ago - stress dose steroids as above Autonomic dysfunction - avoid agents affecting BP (tamsulosin, furosemide/metolazone/spironolactone simultaneously listed on home meds) - fall precautions Diabetes mellitus - well-controlled, HbA1C 6.6% in 07/2018. Accu-Chek, SSI, diabetes Rheumatoid arthritis - OP f/u Chronic back pain Hold gabapentin due to AG and tremor DVT prophylaxis on Xarelto Polypharmacy - minimize home meds prior to discharge Plan to discharge patient in 1-2 days while tapering steroid and reintroducing home medicine. Will DC Chang catheter today. - Time Spent with Patient Total time spent is greater than 50% in coordination of care (as documented) at patient's floor/unit and/or counseling patient: 25 - 35 minutes Plan of Care Discussed with: patient Internal Medicine: Result - Labs CBC & Chem 7: 11/19/18 03:30 11/20/18 10:37 Labs: BMP 11/20/18 10:37 BUN 32 H Creatinine 1.19 - ABG Interpretation ABG results: ABG ABG pH 7.45 pH Units (7.32-7.45) 11/18/18 15:05 ABG pCO2 49 mmHg (35-45) H 11/18/18 15:05 ABG pO2 55 mmHg (85-104) L 11/18/18 15:05 ABG O2 Saturation 89 % (95-98) L 11/18/18 15:05 PT/INR, D-dimer PT 17.9 Seconds (9.4-12.1) H 11/18/18 14:54 - Impressions Impressions KUB X-Ray 11/19/18 11:23 IMPRESSION: Distended small and large bowel representing ileus versus less likely low-grade partial small bowel obstruction. D/ / 11/19/2018 12:03:23 Alex Sanders MD / [facility] Interpreting Provider: Alex Sanders MD Consult Discharge Plan - Plan [facility]errals: [facility] [Primary Care Provider] - 12/05/18 12:45 pm
--- NOTE | 2018-11-20 11:15 | Cardiology Progress Note ---
Date of Encounter: 11/20/18 Time of Encounter: 09:45 Assessment and Plan (1) CHF exacerbation Current Visit: No Status: Acute Acute on chronic diastoic CHF. Echocardiogram 10/10/18-LVEF 60-65%. Normal LV chamber size, wall thickness and function. LHC 10/09/18- normal coronary arteries, EF 40%. Exacerbation likely due to recent change in medications. Lasix discontinued at [facility] due to AG. Pt was taking 40 mg PRN only. Also not strict with low sodium diet. IV diuresis given at [facility] and pt became hyotensive requiring pressor support and developed AG and hypokalemia. BLE edema improved at [place] per pt and he lost 20 lbs. Kidney function improved and IV diuretic restarted yesterday. Baseline weight is 270 lbs. Wt 289 lbs yesterday and 311 lbs today. Does not appear to be accurate since he continues to improve. I will order standing scales. Continues to have fluid overload on exam. Continue IV diuretic with close monitoring of BMP. Strict I&O and daily weights. Qualifiers: Heart failure type: diastolic Qualified Code(s): I50.33 - Acute on chronic diastolic (congestive) heart failure (2) Paroxysmal a-fib Current Visit: No Status: Chronic History of afib s/p AF ablation at [facility] in 2016. Continue amiodarone and xarelto , on renal dosing. (3) Pacemaker Current Visit: No Status: Chronic H/o SSS s/p PPM. (4) AG (acute kidney injury) Current Visit: No Status: Acute AG/ CKD , hypotension, and hypokalemia after diuretic use. IV diuresis with caution. Monitor potassium. (5) Adrenal insufficiency Current Visit: No Status: Suspected Recent diagnosis of maile's disease at [facility]. Records reviewed. Edema and hypotension at that time thought to be secondary to adrenal insufficiency. Pt started on hydrocortisone. Primary team following. Discussion w patient/family: The assessment and plan as outlined above was discussed with the patient and/or family members who expressed understanding and agreement. All questions were answered. Thank you for involving us in the care of your patient. Please call with any questions. Subjective Principal diagnosis: HFpEF, A/CKD Interval history: Mr. Issa states he is feeling better today. BLE improving. Denies chest pain or palpitations. Objective Vital Signs, Last 4 Hours Temp Pulse Resp BP Pulse Ox 11/20/18 07:55 98.1 F 76 18 144/88 93 General: Conversant, No Apparent Distress HEENT: Atraumatic, Normocephaly, Mucus Membranes Moist Neck: No JVD, Normal carotid pulses Cardiac: Reg Rate and Rhythm, Normal S1 and S2, No Murmur Lungs: Normal Breath Sounds, No Wheeze, Rales, Rhonchi Neuro: Alert and responsive, No focal deficits noted Abdomen: Soft, Non-Tender Skin: No rashes noted on visualized skin Musculoskeletal: No Chest Wall Tenderness Extremities: No Clubbing, No Cyanosis, Normal Pulses, Other (1+ pitting edema BLE) Results 11/19/18 03:30 11/20/18 10:37 Lab Results 11/20/18 10:37 BUN 32 H Creatinine 1.19 - Imaging and Cardiology Echo: report reviewed - EKG Interpretation EKG results cardiology: personally reviewed Consult Discharge Plan - Plan Referrals: [facility] [Primary Care Provider] - 12/05/18 12:45 pm
[2018-11-20 11:37] LABS: Potassium 3.4 mEq/L (3.5-5.1)
[2018-11-20] MEDS: *HR* Rivaroxaban 15 MG TABLET PO SCH (17:01)
[2018-11-20] MEDS: Metoprolol XL (24 HR) Succ 25 MG TAB.ER.24H PO SCH (17:03)
[2018-11-20] MEDS ORDERED: Spironolactone 25 MG TABLET PO SCH (21:00)
[2018-11-20] MEDS: Gabapentin 400 MG CAPSULE PO SCH (21:37)
[2018-11-21] MEDS: *HR* OxyCODONE Immed Rel 5 MG TABLET PO PRN ×2 (00:03→20:31)
[2018-11-21] MEDS: Piperacillin/Tazobactam 3.375 GM in 0.9 % Sodium Chloride Mini Bag 100 ML IVPB SCH ×2 (02:05→08:45)
[2018-11-21 05:21] LABS: Basophils % 0.3 %; Hematocrit 38.8 % (37.5-50.1); Lymphocytes # 0.6 K/mcL (0.6-4.6); Lymphocytes % 7.4 %; Mean Corpuscular HGB Conc 30.9 g/dL (31.6-35.5); Mean Corpuscular Hemoglobin 27.3 pg (28.0-33.3); Mean Corpuscular Volume 88.2 fL (83.0-100.0); Mean Platelet Volume 9.4 fL (9.4-12.4); Monocytes # 0.6 K/mcL (0.0-1.3); Monocytes % 7.2 %; Neutrophils # 6.5 K/mcL (1.6-8.9); Platelet Count 226 K/mcL (140-400); Red Cell Distribution Width 16.1 % (11.5-14.5); Segmented Neutrophils % 84.1 %
[2018-11-21 05:39] LABS: BUN/Creatinine Ratio 27 (6-26); Blood Urea Nitrogen 35 mg/dL (8-23); Calcium 8.7 mg/dL (8.6-10.3); Carbon Dioxide 33 mEq/L (23-29); Chloride 97 mEq/L (98-107); Glucose 122 mg/dL (70-105); Osmolality,Calculated 297 (280-300); Potassium 3.1 mEq/L (3.5-5.1); Sodium 139 mEq/L (136-145); eGFR For Non-African Americans 54 (> 60)
[2018-11-21 05:51] LABS: Vancomycin,Trough 48 mcg/mL (5-10)
[2018-11-21] MEDS: Budesonide/Formoterol 80/4.5 MDI IH SCH ×2 (07:28→20:10)
--- NOTE | 2018-11-21 08:03 | Internal Med Progress Note ---
Hospitalist Progress Note - Encounter Date of Encounter: 11/21/18 Time of Encounter: 09:00 - Subjective Interval History: Admitted for hypotension requiring IV hydrocortisone and CHF exacerbation. Improved this am - Exam Vitals: Temp Pulse Resp BP Pulse Ox 97.6 F 60 18 127/77 93 11/21/18 07:19 11/21/18 07:19 11/21/18 07:28 11/21/18 07:19 11/21/18 07:28 Exam: General appearance: No acute distress, A&O X 3, obese, communicative Head exam: Atraumatic Eye exam: EOMI, PERRLA ENT exam: Moist oral mucosa Neck nontender, supple Respiratory exam: Decreased breath sound at bases bilaterally. No wheeze crackles or rhonchi Cardiovascular exam: Regular rate and rhythm, no systolic murmur Abdominal exam: Soft with mild diffuse tenderness positive bowel sounds . no r ebound tenderness rigidity. Chang catheter in place Extremities exam: No calf tenderness, +1 bilateral pedal edema Present: Skin-no rash, warm, dry, intact Neurological exam: Alert, awake, oriented 3, CN II-XII intact, no focal deficits. No facial droop. Normal speech. - Assessment and Plan (1) Shock Current Visit: Yes Status: Acute Assessment and Plan: Likely circulatory shock from adrenal insufficiency. Was initially on pressors which have been weaned off His BP has been stable on IV hydrocortisone, will wean down to PO as tolerated Will discontinue antibiotics (2) Acute on chronic diastolic (congestive) heart failure Current Visit: Yes Status: Acute Assessment and Plan: Pt came in with acute worsening of chronic diastolic CHF. Is euvolemic now and has been weaned down to po lasix (3) Paroxysmal A-fib Current Visit: Yes Status: Chronic Assessment and Plan: Stable. Continue amiodarone, beta rbisa and xarelto (4) Adrenal insufficiency Current Visit: Yes Status: Acute Assessment and Plan: See #1. On IV hydrocortisone which is being tapered down (5) Tachy-amanda syndrome Current Visit: Yes Status: Acute Assessment and Plan: Stable. Continue home meds (6) History of CVA (cerebrovascular accident) Current Visit: Yes Status: Acute Assessment and Plan: Continue asoirin (7) DVT prophylaxis Current Visit: Yes Status: Acute Assessment and Plan: on xarelto - Summary of Assessment and Plan Summary of Assessment and Plan: 68 year old man with multiple medical problems including CHF and adrenal insufficiency has been hospitalized frequently over the last 4 years. for the last 6 months, he has been having frequent episodes of hypotension. About 4-6 weeks ago, he was diagnosed with adrenal insufficiency. Due to severe hypokalemia, Leon's disease was suspected. His Lasix was stopped. He did well for about a week after discharge. The he gained weight from baseline of 260-265 lb to 308 lb and was readmitted ot [facility] about a week ago. There he was diuresed. His Cr increased from 1.2 on 11/17 to 3.2 on 11/18 and he developed severe hypotension with BP of 40/20 on 11/18, hence he received 2-3 L of IV fluids, IV hydrocortisone 100 mg and was started on norepinephrine infusion and sent to [facility] ER. Of note, his WBC increased from 7k on 11/13 to 15k on 11/18/18. In addition to above, he reported that for the last 4 days, his abdomen has been progressively getting distended along with diffuse abdominal pain. His last BM was 2 days ago, and he is passing flatus today, albeit in small amounts. A Ct scan of chest and abdomen without contrast did not show acute abnormality. . - Time Spent with Patient Total time spent is greater than 50% in coordination of care (as documented) at patient's floor/unit and/or counseling patient: Internal Medicine: Result - Labs CBC & Chem 7: 11/21/18 04:53 11/21/18 04:53 Labs: Short CBC 11/21/18 Range/Units 04:53 WBC 7.7 (4.3-11.1) K/mcL Hgb 12.0 L (12.9-16.9) g/dL Hct 38.8 (37.5-50.1) % Plt Count 226 (140-400) K/mcL Neutrophils # 6.5 (1.6-8.9) K/mcL BMP 11/20/18 11/21/18 10:37 04:53 Sodium 139 Potassium 3.4 L 3.1 L Chloride 97 L Carbon Dioxide 33 H BUN 32 H 35 H Creatinine 1.19 1.31 H Glucose 122 H Calcium 8.7 - ABG Interpretation ABG results: ABG ABG pH 7.45 pH Units (7.32-7.45) 11/18/18 15:05 ABG pCO2 49 mmHg (35-45) H 11/18/18 15:05 ABG pO2 55 mmHg (85-104) L 11/18/18 15:05 ABG O2 Saturation 89 % (95-98) L 11/18/18 15:05 PT/INR, D-dimer PT 17.9 Seconds (9.4-12.1) H 11/18/18 14:54 - Impressions Impressions Abdomen Ultrasound 11/19/18 09:00 IMPRESSION: The kidneys are not obstructed. Status post cholecystectomy. D/ / 11/19/2018 09:50:11 Wu Kenny MD / [facility] Interpreting Provider: Wu Kenny MD X-Ray 11/19/18 11:23 IMPRESSION: Distended small and large bowel representing ileus versus less likely low-grade partial small bowel obstruction. D/ / 11/19/2018 12:03:23 Alex Sanders MD / [facility] Interpreting Provider: Alex Sanders MD Consult Discharge Plan - Plan Referrals: Ankush Zhao, [employer] [Advanced Practice Nurse] - (office to call patient at home with follow up appointment) [place],PCP [Primary Care Provider] - 12/05/18 12:45 pm
[2018-11-21] MEDS: Furosemide 20 MG/2 ML VIAL IVP SCH (08:43)
[2018-11-21] MEDS: Hydrocortisone Sodium Succ 100 MG/2 ML VIAL IVP SCH ×3 (08:43→22:39)
[2018-11-21] MEDS: Potassium Chloride Elixir 20 MEQ/15 ML UDC PO SCH ×2 (08:43→12:30)
[2018-11-21] MEDS: Finasteride 5 MG TABLET PO SCH (08:44)
[2018-11-21] MEDS: Gabapentin 400 MG CAPSULE PO SCH ×2 (08:44→20:31)
[2018-11-21] MEDS: Metoprolol XL (24 HR) Succ 25 MG TAB.ER.24H PO SCH (08:44)
[2018-11-21] MEDS: *HR* Amiodarone 200 MG TABLET PO SCH (08:44)
[2018-11-21] MEDS: Aspirin 81 MG TAB.CHEW PO SCH (08:44)
[2018-11-21] MEDS: Insulin LISPRO 300 UNITS/3 ML VIAL SQ SCH ×4 (08:44→20:25)
[2018-11-21] MEDS ORDERED: (Tiotropium Br/Olodaterol Hcl [Stiolto Respimat Inhal IH SCH (09:00)
[2018-11-21] MEDS ORDERED: Furosemide 20 MG TABLET PO SCH (09:00)
[2018-11-21] MEDS ORDERED: Hydrocortisone Sodium Succ 100 MG/2 ML VIAL IVP SCH (16:00)
[2018-11-21] MEDS: Tiotropium 18 MCG inhalation IH SCH (16:13)
[2018-11-21] MEDS: Furosemide 20 MG TABLET PO SCH (17:19)
[2018-11-21] MEDS: *HR* Rivaroxaban 15 MG TABLET PO SCH (17:19)
[2018-11-21] MEDS: Melatonin 3 MG TABLET PO SCH (22:39)
[2018-11-21] MEDS ORDERED: Aminoglycoside Consult 1 EACH MC ONE (23:38)
[2018-11-22] MEDS: Insulin LISPRO 300 UNITS/3 ML VIAL SQ SCH ×4 (07:46→22:32)
[2018-11-22] MEDS: Budesonide/Formoterol 80/4.5 MDI IH SCH ×2 (07:57→22:32)
[2018-11-22] MEDS: Tiotropium 18 MCG inhalation IH SCH (07:58)
[2018-11-22] MEDS: *HR* Amiodarone 200 MG TABLET PO SCH (08:08)
[2018-11-22] MEDS: Finasteride 5 MG TABLET PO SCH (08:08)
[2018-11-22] MEDS: Metoprolol XL (24 HR) Succ 25 MG TAB.ER.24H PO SCH (08:08)
[2018-11-22] MEDS: Furosemide 20 MG TABLET PO SCH ×2 (08:09→17:01)
[2018-11-22] MEDS: Gabapentin 400 MG CAPSULE PO SCH ×2 (08:09→22:32)
[2018-11-22] MEDS: Aspirin 81 MG TAB.CHEW PO SCH (08:09)
[2018-11-22] MEDS: *HR* OxyCODONE Immed Rel 5 MG TABLET PO PRN ×2 (08:14→22:34)
[2018-11-22] MEDS ORDERED: Hydrocortisone 10 MG TABLET PO SCH (09:00)
[2018-11-22 09:14] LABS: BUN/Creatinine Ratio 30 (6-26); Blood Urea Nitrogen 37 mg/dL (8-23); Calcium 8.6 mg/dL (8.6-10.3); Carbon Dioxide 34 mEq/L (23-29); Chloride 99 mEq/L (98-107); Glucose 94 mg/dL (70-105); Osmolality,Calculated 296 (280-300); Potassium 3.3 mEq/L (3.5-5.1); Sodium 139 mEq/L (136-145); eGFR For Non-African Americans 58 (> 60)
[2018-11-22 10:12] LABS: Basophils # 0.1 K/mcL (0.0-0.2); Basophils % 0.8 %; Eosinophils % 0.5 %; Hematocrit 41.8 % (37.5-50.1); Hemoglobin 13.2 g/dL (12.9-16.9); Immature Granulocytes % 1.6 % (0-4); Lymphocytes # 1.4 K/mcL (0.6-4.6); Lymphocytes % 18.3 %; Mean Corpuscular HGB Conc 31.6 g/dL (31.6-35.5); Mean Corpuscular Hemoglobin 27.3 pg (28.0-33.3); Mean Corpuscular Volume 86.5 fL (83.0-100.0); Mean Platelet Volume 9.5 fL (9.4-12.4); Monocytes # 0.8 K/mcL (0.0-1.3); Neutrophils # 5.3 K/mcL (1.6-8.9); Platelet Count 252 K/mcL (140-400); Red Blood Count 4.83 M/mcL (4.19-5.50); Red Cell Distribution Width 15.9 % (11.5-14.5); Segmented Neutrophils % 68.8 %
[2018-11-22] MEDS ORDERED: Potassium Chloride Elixir 20 MEQ/15 ML UDC PO ONE (16:36)
--- NOTE | 2018-11-22 16:39 | Discharge Summary ---
Date of Encounter: 11/22/18 Time of Encounter: 16:00 - Discharge Diagnosis (1) Shock Priority: Primary Status: Acute Assessment and Plan: 68 year old man with multiple medical problems including CHF and adrenal insufficiency has been hospitalized frequently over the last 4 years. for the last 6 months, he has been having frequent episodes of hypotension. About 4-6 weeks ago, he was diagnosed with adrenal insufficiency. Due to severe hypokalemia, [place]'s disease was suspected. His Lasix was stopped. He did well for about a week after discharge. The he gained weight from baseline of 260-265 lb to 308 lb and was readmitted ot [facility] about a week ago. There he was diuresed. His Cr increased from 1.2 on 11/17 to 3.2 on 11/18 and he developed severe hypotension with BP of 40/20 on 11/18, hence he received 2-3 L of IV fluids, IV hydrocortisone 100 mg and was started on norepinephrine infusion and sent to [facility] ER. Of note, his WBC increased from 7k on 11/13 to 15k on 11/18/18 He was admitted with circulatory shock from adrenal insufficiency and hypovolemic shock from over diuresis. Was initially on pressors which have been weaned off. He was was initially started on empiric vanc and zosyn for possible septic shock and IV hydrocortisone and norepinephrine for adrenal insufficiency. With oral hydration and supportive care he gradually improved. He was seen by surgery for an ileus which was eventually deemed secondary to constipation and resolved with a bowel prep. Septic shock has been ruled out and Iv antibiotics have been discontinued. He was gradually weaned down from IV hydrocortisone and norepinephrine to his home regimen of po hydrocortisone and fludrocortisone. PO antihypertensives and diuretics were held on discharge. He was discharged in a stable condition once BP was stable on po steroids. 35 minutes was spent discharging this patient (2) Acute on chronic diastolic (congestive) heart failure Priority: Primary Status: Acute (3) Paroxysmal A-fib Priority: Primary Status: Chronic (4) Adrenal insufficiency Priority: Primary Status: Acute (5) Tachy-amanda syndrome Priority: Primary Status: Acute (6) History of CVA (cerebrovascular accident) Priority: Primary Status: Acute (7) DVT prophylaxis Priority: Primary Status: Acute Hospital course: Mr. Issa is a 68 year old male - Time Spent with Patient Total time spent providing and/or coordinating discharge services: - Discharge Medications Prescriptions: New Furosemide [Lasix] 20 mg PO BIDDIURETIC #60 tablet Fludrocortisone Acetate [Florinef] 0.1 mg PO DAILY #30 tablet Continued Tamsulosin HCl [Flomax] 0.4 mg PO BID Amiodarone [Cordarone] 200 mg PO DAILY Aspirin 81 mg PO DAILY Lubiprostone [Amitiza] 16 mcg PO BIDWM Pantoprazole Sodium [Protonix] 40 mg PO DAILY@0730 Finasteride [Proscar] 5 mg PO DAILY Tiotropium Br/Olodaterol HCl [Stiolto Respimat Inhal [place]] 2 puff IH DAILY Insulin ASPART [NovoLOG] 0 unit SQ TIDAC MDD PER SLIDING SCALE Gabapentin [Neurontin] 400 mg PO BID Fluticasone/Salmeterol [Advair 250-50 Diskus] 1 puff IH BID Acetaminophen [Tylenol] 650 mg PO Q6HR PRN PRN Reason: PAIN/FEVER DiphenhydraMINE [Benadryl] 25 mg PO HS PRN PRN Reason: Sleep Carboxymethylcellulose Sodium [Refresh Liquigel] 1 drop BOTH EYES TID Metoprolol Succinate [Toprol Xl] 12.5 mg PO DAILY Potassium Chloride [Klor-Con 10] 20 meq PO BID Saline Nasal [place] [Kimball Nasal [place]] 2 spray NS Q2H PRN PRN Reason: "[employer]" Simethicone [Gas-X] 80 mg PO TID PRN PRN Reason: GAS Capsaicin [High Potency Capsaicin] 1 appl TP QID PRN PRN Reason: Pain Polyethylene Glycol 3350 [Natura-Lax] 17 gm PO DAILY PRN PRN Reason: Constipation Trazodone HCl 200 mg PO HS Docusate [Colace] 300 mg PO HS Fluticasone Propionate Nasal [Flonase] 1 spray NS BID PRN PRN Reason: Allergy Symptoms Rivaroxaban [Xarelto] 15 mg PO DAILY Tizanidine HCl 2 mg PO BID PRN PRN Reason: MUSCLE SPASM Albuterol Neb [AccuNeb] 0.63 mg IH TID Atorvastatin [Lipitor] 40 mg PO DAILY Cholecalciferol (D-3) [Vitamin D] 2,000 unit PO DAILY Duloxetine HCl [Cymbalta] 60 mg PO DAILY Sennosides/Docusate Sodium [Docusate Sodium-Sennosides Tab] 1 each PO BID PRN PRN Reason: Constipation Melatonin [Melatin] 9 mg PO HS Memantine HCl 10 mg PO BID Oxycodone HCl [Roxybond] 10 mg PO Q8H PRN PRN Reason: Pain Sennosides [Senokot] 17.2 mg PO BID PRN PRN Reason: Constipation Hydrocortisone [Cortef] 15 mg PO DAILY #30 tablet Discontinued Furosemide [Lasix] 20 mg PO DAILY metOLazone [Zaroxolyn] 5 mg PO DAILY PRN PRN Reason: Swelling Losartan [Cozaar] 25 mg PO DAILY Spironolactone [Aldactone] 50 mg PO BID Home Medications: Amiodarone [Cordarone] 200 mg PO DAILY 04/04/18 [History] Aspirin 81 mg PO DAILY 04/04/18 [History] Finasteride [Proscar] 5 mg PO DAILY 04/04/18 [History] Lubiprostone [Amitiza] 16 mcg PO BIDWM 04/04/18 [History] Pantoprazole Sodium [Protonix] 40 mg PO DAILY@0730 04/04/18 [History] Tamsulosin HCl [Flomax] 0.4 mg PO BID 04/04/18 [History] Tiotropium Br/Olodaterol HCl [Stiolto Respimat Inhal [place]] 2 puff IH DAILY 04/24/18 [History] Insulin ASPART [NovoLOG] 0 unit SQ TIDAC MDD PER SLIDING SCALE 04/25/18 [History] Fluticasone/Salmeterol [Advair 250-50 Diskus] 1 puff IH BID 06/30/18 [History] Gabapentin [Neurontin] 400 mg PO BID 06/30/18 [History] Acetaminophen [Tylenol] 650 mg PO Q6HR PRN 07/26/18 [History] DiphenhydraMINE [Benadryl] 25 mg PO HS PRN 07/26/18 [History] Capsaicin [High Potency Capsaicin] 1 appl TP QID PRN 08/27/18 [History] Carboxymethylcellulose Sodium [Refresh Liquigel] 1 drop BOTH EYES TID 08/27/18 [History] Metoprolol Succinate [Toprol Xl] 12.5 mg PO DAILY 08/27/18 [History] Polyethylene Glycol 3350 [Natura-Lax] 17 gm PO DAILY PRN 08/27/18 [History] Potassium Chloride [Klor-Con 10] 20 meq PO BID 08/27/18 [History] Saline Nasal [place] [[place] Nasal [place]] 2 spray NS Q2H PRN 08/27/18 [History] Simethicone [Gas-X] 80 mg PO TID PRN 08/27/18 [History] Trazodone HCl 200 mg PO HS 08/27/18 [History] Docusate [Colace] 300 mg PO HS 09/17/18 [History] Fluticasone Propionate Nasal [Flonase] 1 spray NS BID PRN 09/17/18 [History] Rivaroxaban [Xarelto] 15 mg PO DAILY 09/17/18 [History] Tizanidine HCl 2 mg PO BID PRN 09/17/18 [History] Albuterol Neb [AccuNeb] 0.63 mg IH TID 11/18/18 [History] Atorvastatin [Lipitor] 40 mg PO DAILY 11/18/18 [History] Cholecalciferol (D-3) [Vitamin D] 2,000 unit PO DAILY 11/18/18 [History] Duloxetine HCl [Cymbalta] 60 mg PO DAILY 11/18/18 [History] Melatonin [Melatin] 9 mg PO HS 11/18/18 [History] Memantine HCl 10 mg PO BID 11/18/18 [History] Oxycodone HCl [Roxybond] 10 mg PO Q8H PRN 11/18/18 [History] Sennosides [Senokot] 17.2 mg PO BID PRN 11/18/18 [History] Sennosides/Docusate Sodium [Docusate Sodium-Sennosides Tab] 1 each PO BID PRN 11/18/18 [History] Fludrocortisone Acetate [Florinef] 0.1 mg PO DAILY #30 tablet 11/22/18 [Rx] Furosemide [Lasix] 20 mg PO BIDDIURETIC #60 tablet 11/22/18 [Rx] Hydrocortisone [Cortef] 15 mg PO DAILY #30 tablet 11/22/18 [Rx] Allergies/Adverse Reactions: Allergy/AdvReac Type Severity Reaction Status Date / Time IVP DYE Allergy Severe Anaphylaxis Uncoded 10/09/18 14:23 Date of admission: 11/18/18 19:05 [facility] care physician: [facility] Consults: 11/18/18 18:37 Consult to Cardiology [CONS] Routine Comment: Consulting Provider: Dilshad Flood Reason for Consult: HFpEF Call Completed: No 11/19/18 09:43 Consult to Nurse Navigator [CONS] Routine Comment: CHF 11/19/18 10:50 Consult to Surgery [CONS] Routine Consulting Provider: Acute Care Surgery Reason for Consult: abdomen pain Call Completed: Yes - Constitutional Vitals: Temp Pulse Resp BP Pulse Ox 97.5 F L 64 14 135/64 94 11/22/18 10:35 11/22/18 10:35 11/22/18 10:35 11/22/18 10:35 11/22/18 10:35 General appearance: Present: cooperative, A&O X 3, no acute distress, obese, answers questions appropriately Exam: General appearance: No acute distress, A&O X 3, obese, communicative Head exam: Atraumatic Eye exam: EOMI, PERRLA ENT exam: Moist oral mucosa Neck nontender, supple Respiratory exam: Decreased breath sound at bases bilaterally. No wheeze crackles or rhonchi Cardiovascular exam: Regular rate and rhythm, no systolic murmur Abdominal exam: Soft with mild diffuse tenderness positive bowel sounds . no rebound tenderness rigidity. Chang catheter in place Extremities exam: No calf tenderness, +1 bilateral pedal edema Present: Skin-no rash, warm, dry, intact Neurological exam: Alert, awake, oriented 3, CN II-XII intact, no focal deficits. No facial droop. Normal speech. - Patient Status Disposition: Home, Self-Care Condition: Good - Discharge Instructions Follow Up With: Ankush Zhao COMPLAINT ANALYST [Advanced Practice Nurse] - (office to call patient at home with follow up appointment) [place],PCP [Primary Care Provider] - 12/05/18 12:45 pm Forms: ED Satisfaction Letter, Work/School Release
[2018-11-22] MEDS: *HR* Rivaroxaban 15 MG TABLET PO SCH (17:01)
[2018-11-22 19:26] VITALS: BP 116/70
[2018-11-22] MEDS: Melatonin 3 MG TABLET PO SCH (22:31)
--- NOTE | 2018-11-23 09:03 | Physician Discharge Referral ---
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 For more information, call the [place] Tobacco Quit Line at 4-799-YIIU-NOW. - Diet/Nutrition Diet/Nutrition Orders: Cardiac - Activity Activity Orders: Ambulate - Services Needed Following services are medically necessary services: Nursing, Home Health Aide, Physical Therapy - Transfer Medications Prescriptions: Hydrocortisone [Cortef] 15 mg PO DAILY #30 tablet Fludrocortisone Acetate [Florinef] 0.1 mg PO DAILY #30 tablet Furosemide [Lasix] 20 mg PO BIDDIURETIC #60 tablet Home Medications: Amiodarone [Cordarone] 200 mg PO DAILY 04/04/18 [History] Aspirin 81 mg PO DAILY 04/04/18 [History] Finasteride [Proscar] 5 mg PO DAILY 04/04/18 [History] Lubiprostone [Amitiza] 16 mcg PO BIDWM 04/04/18 [History] Pantoprazole Sodium [Protonix] 40 mg PO DAILY@0730 04/04/18 [History] Tamsulosin HCl [Flomax] 0.4 mg PO BID 04/04/18 [History] Tiotropium Br/Olodaterol HCl [Stiolto Respimat Inhal [place]] 2 puff IH DAILY 04/24/18 [History] Insulin ASPART [NovoLOG] 0 unit SQ TIDAC MDD PER SLIDING SCALE 04/25/18 [History] Fluticasone/Salmeterol [Advair 250-50 Diskus] 1 puff IH BID 06/30/18 [History] Gabapentin [Neurontin] 400 mg PO BID 06/30/18 [History] Acetaminophen [Tylenol] 650 mg PO Q6HR PRN 07/26/18 [History] DiphenhydraMINE [Benadryl] 25 mg PO HS PRN 07/26/18 [History] Capsaicin [High Potency Capsaicin] 1 appl TP QID PRN 08/27/18 [History] Carboxymethylcellulose Sodium [Refresh Liquigel] 1 drop BOTH EYES TID 08/27/18 [History] Metoprolol Succinate [Toprol Xl] 12.5 mg PO DAILY 08/27/18 [History] Polyethylene Glycol 3350 [Natura-Lax] 17 gm PO DAILY PRN 08/27/18 [History] Potassium Chloride [Klor-Con 10] 20 meq PO BID 08/27/18 [History] Saline Nasal [place] [[place] Nasal [place]] 2 spray NS Q2H PRN 08/27/18 [History] Simethicone [Gas-X] 80 mg PO TID PRN 08/27/18 [History] Trazodone HCl 200 mg PO HS 08/27/18 [History] Docusate [Colace] 300 mg PO HS 09/17/18 [History] Fluticasone Propionate Nasal [Flonase] 1 spray NS BID PRN 09/17/18 [History] Rivaroxaban [Xarelto] 15 mg PO DAILY 09/17/18 [History] Tizanidine HCl 2 mg PO BID PRN 09/17/18 [History] Albuterol Neb [AccuNeb] 0.63 mg IH TID 11/18/18 [History] Atorvastatin [Lipitor] 40 mg PO DAILY 11/18/18 [History] Cholecalciferol (D-3) [Vitamin D] 2,000 unit PO DAILY 11/18/18 [History] Duloxetine HCl [Cymbalta] 60 mg PO DAILY 11/18/18 [History] Melatonin [Melatin] 9 mg PO HS 11/18/18 [History] Memantine HCl 10 mg PO BID 11/18/18 [History] Oxycodone HCl [Roxybond] 10 mg PO Q8H PRN 11/18/18 [History] Sennosides [Senokot] 17.2 mg PO BID PRN 11/18/18 [History] Sennosides/Docusate Sodium [Docusate Sodium-Sennosides Tab] 1 each PO BID PRN 11/18/18 [History] Fludrocortisone Acetate [Florinef] 0.1 mg PO DAILY #30 tablet 11/22/18 [Rx] Furosemide [Lasix] 20 mg PO BIDDIURETIC #60 tablet 11/22/18 [Rx] Hydrocortisone [Cortef] 15 mg PO DAILY #30 tablet 11/22/18 [Rx] Allergies/Adverse Reactions: Allergy/AdvReac Type Severity Reaction Status Date / Time IVP DYE Allergy Severe Anaphylaxis Uncoded 10/09/18 14:23 Certification: Further, I certify that my clinical findings support that this patient is homebound (i.e. absences from home require considerable and taxing effort and are for medical reasons or [facility] or infrequently or short duration when for other reasons) because: Homebound Reason: Patient requires assistance of a person or device to safely leave home Attestation: My signature below is to certify that this patient is under my care and that I, or nurse practitioner, or a physician's security assistant working with me, has a [id number] encounter with this patient.
== END 2018-11-22 23:39 | disposition home health service (06) | DRG 643 ==
LOC: EMEROOARM 13:30 → ICNU 19:05 → 2NNU 11-19 20:38 → 3NENU 11-22 10:14
PROVIDERS: ADMIT Internal Medicine Nephrology; ATTEND Internal Medicine Nephrology

== ENCOUNTER 2018-11-29 13:49 | Inpatient (IN) ==
[2018-11-29] MEDS ORDERED: 0.9 % Sodium Chloride 250 ML IVC ONE (14:30)
--- NOTE | 2018-11-29 14:30 | Emergency Department Note ---
Disposition Clinical Impression: Addisonian crisis, AG (acute kidney injury) Hypotension Qualifiers: Hypotension type: unspecified hypotension type Qualified Code(s): I95.9 - Hypotension, unspecified Disposition: Admitted As Inpatient Condition: Undetermined Time of Disposition: 16:05 General Adult HPI - General Chief complaint: ED General Medical Stated complaint: hypotension Time Seen by Provider: 11/29/18 13:54 Source: patient, EMS Mode of arrival: EMS Limitations: no limitations Nursing Notes Reviewed: Yes Vital Signs Reviewed: Yes - History of Present Illness HPI Narrative: Patient is a 68-year-old male with past medical history including peripheral neuropathy, prior CVA, congestive heart failure, depression, atrial fibrillation, presenting with chief complaint of hypotension. The patient has had recent hospital admissions for the past several months for hypotension. 6 weeks ago, he was diagnosed with [place]'s disease and has been taking fludrocortisone and hydrocortisone at home. He was most recently admitted for circulatory shock an addisonian's crisis and discharged home on November 22. He states no new changes in his medications. He states he is scheduled with an children's program coordinator at [place] for follow-up on December 03. He otherwise has not seen an children's program coordinator. 3 days ago, he complains of lightheadedness, frequent falls. His at bedside states his blood pressure has been low again as low as 40-50 systolic. She states he also hit his head and had a an episode of loss of c onsciousness 2 days ago. Today, they took him to the [facility]. He denies chest pain, shortness of breath, recent fevers or chills, recent antibiotic use, abdominal pain, nausea or vomiting, dysuria or hematuria, diarrhea. He states his compliance with the medications. At the ID chest x-ray showed no evidence of acute cardiopulmonary disease. CT head without contrast showed no acute intracranial hemorrhage or mass effect. Lab work was obtained that shows white blood count 10.8 and hemoglobin 13.1, hematocrit 41, platelet count 365. Sodium 139 potassium 3.9, glucose 107. His blood pressures were hypotensive over there. It is likely patient is in an addisonian's crisis. His last creatinine was 1.3 and today it is 2.12. He was given IV fluids as well as hydrocortisone. He was transferred here for further management of hypotension due to addisonian's crisis. Upon arrival, patient's systolic blood pressures greater than 100. He states his lightheadedness is improved. He is complaining of generalized weakness otherwise has no other acute complaints. Pain Scale: 8 - Related Data Home Medications Medication Instructions Recorded Confirmed Amiodarone [Cordarone] 200 mg PO DAILY 04/04/18 11/29/18 Aspirin 81 mg PO DAILY 04/04/18 11/29/18 Finasteride [Proscar] 5 mg PO DAILY 04/04/18 11/29/18 Lubiprostone [Amitiza] 16 mcg PO BIDWM 04/04/18 11/18/18 Pantoprazole Sodium [Protonix] 40 mg PO DAILY@0730 04/04/18 11/18/18 Tamsulosin HCl [Flomax] 0.4 mg PO BID 04/04/18 11/29/18 Tiotropium Br/Olodaterol HCl 2 puff IH DAILY 04/24/18 11/18/18 [Stiolto Respimat Inhal [place]] Insulin ASPART [NovoLOG] 0 unit SQ TIDAC MDD PER SLIDING 04/25/18 11/18/18 SCALE Fluticasone/Salmeterol [Advair 1 puff IH BID 06/30/18 11/18/18 250-50 Diskus] Gabapentin [Neurontin] 400 mg PO BID 06/30/18 11/29/18 Acetaminophen [Tylenol] 650 mg PO Q6HR PRN 07/26/18 11/29/18 DiphenhydraMINE [Benadryl] 25 mg PO HS PRN 07/26/18 11/18/18 Capsaicin [High Potency Capsaicin] 1 appl TP QID PRN 08/27/18 11/18/18 Carboxymethylcellulose Sodium 1 drop BOTH EYES TID 08/27/18 11/29/18 [Refresh Liquigel] Metoprolol Succinate [Toprol Xl] 12.5 mg PO DAILY 08/27/18 11/18/18 Polyethylene Glycol 3350 17 gm PO DAILY PRN 08/27/18 11/18/18 [Natura-Lax] Potassium Chloride [Klor-Con 10] 20 meq PO BID 08/27/18 11/18/18 Saline Nasal [place] [[place] Nasal 2 spray NS Q2H PRN 08/27/18 11/29/18 [place]] Simethicone [Gas-X] 80 mg PO TID PRN 08/27/18 11/29/18 Trazodone HCl 200 mg PO HS 08/27/18 11/29/18 Docusate [Colace] 300 mg PO HS 09/17/18 11/18/18 Fluticasone Propionate Nasal 1 spray NS BID PRN 09/17/18 11/18/18 [Flonase] Rivaroxaban [Xarelto] 15 mg PO DAILY 09/17/18 11/29/18 Tizanidine HCl 2 mg PO BID PRN 09/17/18 11/29/18 Albuterol Neb [AccuNeb] 0.63 mg IH TID 11/18/18 11/18/18 Atorvastatin [Lipitor] 40 mg PO DAILY 11/18/18 11/29/18 Cholecalciferol (D-3) [Vitamin D] 2,000 unit PO DAILY 11/18/18 11/29/18 Duloxetine HCl [Cymbalta] 30 mg PO DAILY 11/18/18 11/29/18 Melatonin [Melatin] 9 mg PO HS 11/18/18 11/18/18 Memantine HCl 10 mg PO BID 11/18/18 11/18/18 Oxycodone HCl [Roxybond] 10 mg PO Q8H PRN 11/18/18 11/18/18 Sennosides [Senokot] 17.2 mg PO BID PRN 11/18/18 11/18/18 Sennosides/Docusate Sodium 1 each PO BID PRN 11/18/18 11/18/18 [Docusate Sodium-Sennosides Tab] metOLazone [Zaroxolyn] 5 mg PO AD 11/29/18 Previous Rx's Medication Instructions Recorded Fludrocortisone Acetate [Florinef] 0.1 mg PO DAILY #30 tablet 11/22/18 Furosemide [Lasix] 20 mg PO BIDDIURETIC #60 tablet 11/22/18 Hydrocortisone [Cortef] 15 mg PO DAILY #30 tablet 11/22/18 Allergies Allergy/AdvReac Type Severity Reaction Status Date / Time IVP DYE Allergy Severe Anaphylaxis Uncoded 10/09/18 14:23 All systems ED: reviewed and negative except as stated. Review of Systems: As Per HPI Constitutional: Reports: weakness. Denies: fever, chills Cardiovascular: Reports: other (lightheaded). Denies: chest pain, palpitations Respiratory: Denies: cough, dyspnea Gastrointestinal: Denies: abdominal pain, nausea, vomiting Genitourinary: Denies: dysuria, hematuria Neurological: Reports: weakness. Denies: headache, numbness, paresthesias, confusion Past Medical History - Past Medical History Attestation: Yes The following information was validated with the patient. Source: patient Medical history: Reports: arthritis, atrial fibrillation, CHF, COPD, CVA, diabetes, GERD, hyperlipidemia, hypertension, pulmonary embolus, renal disease, other Surgical history: Reports: herniorrhaphy Psychiatric history: Reports: anxiety, depression, panic disorder, PTSD, previous psychiatric hospitalization - Social History Smoking Status: Former smoker Smokeless Tobacco Status: No Alcohol use: Reports: none Drug use: Reports: none Physical Exam - General Limitations: no limitations General appearance: alert, in no apparent distress - Head Head exam: atraumatic, normocephalic - Eye Eye exam: Present: normal appearance, EOMI - ENT ENT exam: normal exam, mucous membranes moist - Neck Neck exam: Present: normal inspection, trachea midline - Chest Chest inspection: Present: normal inspection, symmetric chest wall rise - Respiratory Respiratory exam: Present: normal lung sounds bilaterally. Absent: respiratory distress, wheezes - Cardiovascular Cardiovascular exam: Present: regular rate, normal rhythm, normal heart sounds - Abdominal Exam Abdominal exam: Present: soft, Non-Tender, distention. Absent: guarding, rebou nd - Extremities Exam Extremities exam: Present: normal capillary refill, other (Mild bilateral lower extremity pedal edema, no calf tenderness, full range of motion of the bilateral hips, bilateral knees, bilateral ankles) - Neurological Exam Neurological exam: Present: alert, oriented X3. Absent: motor sensory deficit - Expanded Neurological Exam Motor strength - LUE: 5/5 Motor strength - RUE: 5/5 Motor strength - LLE: 5/5 Motor strength - RLE: 5/5 - Psychiatric Psychiatric exam: Present: normal affect, normal mood - Skin Skin exam: Present: warm, dry. Absent: diaphoresis, pallor Course Vital Signs Temperature 98.2 F 11/29/18 13:54 Pulse Rate 67 11/29/18 13:54 Respiratory Rate 16 11/29/18 13:54 Blood Pressure 110/67 11/29/18 13:54 O2 Sat by Pulse Oximetry 97 11/29/18 13:54 Temperature 98.2 F 11/30/18 11:35 Pulse Rate 67 11/30/18 11:35 Respiratory Rate 16 11/30/18 11:35 Blood Pressure 143/84 11/30/18 11:35 O2 Sat by Pulse Oximetry 98 11/30/18 11:35 Oxygen Delivery Oxygen Delivery Room Air Medical Decision Making - MDM Narrative Medical decision making narrative: Imaging and lab work were reviewed from the ID. His blood pressures are stable at this time. We will give him IV fluids. Urinalysis was obtained that shows no acute urinary tract infection. Discussed with hospitalist, Dr. Palma. The patient will be admitted here for further management of addisonian crisis. No further recommendations at this time. He remained stable. - Medical Records Medical records reviewed: Yes I reviewed the patient's medical records. - Lab Data Lab results reviewed: Yes I reviewed the patient's lab results. Result diagrams: 11/30/18 07:37 11/30/18 07:37 Lab Results 11/29/18 11/29/18 11/29/18 Range/Units 17:05 17:05 17:05 WBC 13.4 H (4.3-11.1) K/mcL RBC 4.82 (4.19-5.50) M/mcL Hgb 13.3 (12.9-16.9) g/dL Hct 43.2 (37.5-50.1) % MCV 89.6 (83.0-100.0) fL MCH 27.6 L (28.0-33.3) pg MCHC 30.8 L (31.6-35.5) g/dL RDW 15.9 H (11.5-14.5) % Plt Count 299 (140-400) K/mcL MPV 9.2 L (9.4-12.4) fL Immature Gran % 1.6 (0-4) % Seg Neutrophils % 89.2 % Lymphocytes % 4.7 % Monocytes % 3.7 % Eosinophils % 0.1 % Basophils % 0.7 % Neutrophils # 12.0 H (1.6-8.9) K/mcL Lymphocytes # 0.6 (0.6-4.6) K/mcL Monocytes # 0.5 (0.0-1.3) K/mcL Eosinophils # 0.0 (0.0-0.6) K/mcL Basophils # 0.1 (0.0-0.2) K/mcL PT 13.1 H (9.4-12.1) Seconds INR 1.2 APTT 31.4 (26.0-36.0) Seconds Sodium (136-145) mEq/L Potassium (3.5-5.1) mEq/L Chloride (98-107) mEq/L Carbon Dioxide (23-29) mEq/L BUN (8-23) mg/dL Creatinine (0.70-1.30) mg/dL Est GFR ( Amer) (> 60) Est GFR (Non-Af Amer) (> 60) BUN/Creatinine Ratio (6-26) Glucose (70-105) mg/dL POC Glucose (70-99) mg/dL Calculated Osmolality (280-300) Calcium (8.6-10.3) mg/dL Phosphorus 3.1 (2.7-4.5) mg/dL Magnesium 2.1 (1.6-2.6) mg/dL Troponin I < 0.03 (< 0.04) ng/mL Urine Color (Yellow) Urine Clarity (Clear) Urine pH (5.0-8.0) pH Units Ur Specific [place] (1.010-1.025) Urine Protein (Neg-Trace) mg/dL Urine Glucose (UA) (Normal) mg/dL Urine Ketones (Negative) mg/dL Urine Blood (Negative) Urine Nitrite (Negative) Urine Bilirubin (Negative) Urine Urobilinogen (Normal) mg/dL Ur Leukocyte Esterase (Negative) Ur Culture Indicated? (NO) 11/29/18 11/29/18 11/29/18 Range/Units 17:05 17:38 21:20 WBC (4.3-11.1) K/mcL RBC (4.19-5.50) M/mcL Hgb (12.9-16.9) g/dL Hct (37.5-50.1) % MCV (83.0-100.0) fL MCH (28.0-33.3) pg MCHC (31.6-35.5) g/dL RDW (11.5-14.5) % Plt Count (140-400) K/mcL MPV (9.4-12.4) fL Immature Gran % (0-4) % Seg Neutrophils % % Lymphocytes % % Monocytes % % Eosinophils % % Basophils % % Neutrophils # (1.6-8.9) K/mcL Lymphocytes # (0.6-4.6) K/mcL Monocytes # (0.0-1.3) K/mcL Eosinophils # (0.0-0.6) K/mcL Basophils # (0.0-0.2) K/mcL PT (9.4-12.1) Seconds INR APTT (26.0-36.0) Seconds Sodium 140 (136-145) mEq/L Potassium 3.7 (3.5-5.1) mEq/L Chloride 101 (98-107) mEq/L Carbon Dioxide 34 H (23-29) mEq/L BUN 31 H (8-23) mg/dL Creatinine 1.50 H (0.70-1.30) mg/dL Est GFR ( Amer) 56 L (> 60) Est GFR (Non-Af Amer) 47 L (> 60) BUN/Creatinine Ratio 21 (6-26) Glucose 130 H (70-105) mg/dL POC Glucose 128 H 184 H (70-99) mg/dL Calculated Osmolality 298 (280-300) Calcium 8.7 (8.6-10.3) mg/dL Phosphorus (2.7-4.5) mg/dL Magnesium (1.6-2.6) mg/dL Troponin I (< 0.04) ng/mL Urine Color (Yellow) Urine Clarity (Clear) Urine pH (5.0-8.0) pH Units Ur Specific [place] (1.010-1.025) Urine Protein (Neg-Trace) mg/dL Urine Glucose (UA) (Normal) mg/dL Urine Ketones (Negative) mg/dL Urine Blood (Negative) Urine Nitrite (Negative) Urine Bilirubin (Negative) Urine Urobilinogen (Normal) mg/dL Ur Leukocyte Esterase (Negative) Ur Culture Indicated? (NO) 11/29/18 11/30/18 11/30/18 Range/Units Unknown 07:23 07:37 WBC 12.6 H (4.3-11.1) K/mcL RBC 4.33 (4.19-5.50) M/mcL Hgb 11.7 L D (12.9-16.9) g/dL Hct 38.4 (37.5-50.1) % MCV 88.7 (83.0-100.0) fL MCH 27.0 L (28.0-33.3) pg MCHC 30.5 L (31.6-35.5) g/dL RDW 16.1 H (11.5-14.5) % Plt Count 315 (140-400) K/mcL MPV 9.1 L (9.4-12.4) fL Immature Gran % 0.8 (0-4) % Seg Neutrophils % 79.7 % Lymphocytes % 10.6 % Monocytes % 8.3 % Eosinophils % 0.2 % Basophils % 0.4 % Neutrophils # 10.0 H (1.6-8.9) K/mcL Lymphocytes # 1.3 (0.6-4.6) K/mcL Monocytes # 1.0 (0.0-1.3) K/mcL Eosinophils # 0.0 (0.0-0.6) K/mcL Basophils # 0.1 (0.0-0.2) K/mcL PT (9.4-12.1) Seconds INR APTT (26.0-36.0) Seconds Sodium (136-145) mEq/L Potassium (3.5-5.1) mEq/L Chloride (98-107) mEq/L Carbon Dioxide (23-29) mEq/L BUN (8-23) mg/dL Creatinine (0.70-1.30) mg/dL Est GFR ( Amer) (> 60) Est GFR (Non-Af Amer) (> 60) BUN/Creatinine Ratio (6-26) Glucose (70-105) mg/dL POC Glucose 85 (70-99) mg/dL Calculated Osmolality (280-300) Calcium (8.6-10.3) mg/dL Phosphorus (2.7-4.5) mg/dL Magnesium (1.6-2.6) mg/dL Troponin I (< 0.04) ng/mL Urine Color Yellow (Yellow) Urine Clarity Clear (Clear) Urine pH 6.0 (5.0-8.0) pH Units Ur Specific [place] 1.021 (1.010-1.025) Urine Protein Negative (Neg-Trace) mg/dL Urine Glucose (UA) Normal (Normal) mg/dL Urine Ketones Negative (Negative) mg/dL Urine Blood Negative (Negative) Urine Nitrite Negative (Negative) Urine Bilirubin Negative (Negative) Urine Urobilinogen Normal (Normal) mg/dL Ur Leukocyte Esterase Negative (Negative) Ur Culture Indicated? NO (NO) 11/30/18 Range/Units 07:37 WBC (4.3-11.1) K/mcL RBC (4.19-5.50) M/mcL Hgb (12.9-16.9) g/dL Hct (37.5-50.1) % MCV (83.0-100.0) fL MCH (28.0-33.3) pg MCHC (31.6-35.5) g/dL RDW (11.5-14.5) % Plt Count (140-400) K/mcL MPV (9.4-12.4) fL Immature Gran % (0-4) % Seg Neutrophils % % Lymphocytes % % Monocytes % % Eosinophils % % Basophils % % Neutrophils # (1.6-8.9) K/mcL Lymphocytes # (0.6-4.6) K/mcL Monocytes # (0.0-1.3) K/mcL Eosinophils # (0.0-0.6) K/mcL Basophils # (0.0-0.2) K/mcL PT (9.4-12.1) Seconds INR APTT (26.0-36.0) Seconds Sodium 142 (136-145) mEq/L Potassium 3.6 (3.5-5.1) mEq/L Chloride 103 (98-107) mEq/L Carbon Dioxide 33 H (23-29) mEq/L BUN 31 H (8-23) mg/dL Creatinine 1.33 H (0.70-1.30) mg/dL Est GFR ( Amer) > 60 (> 60) Est GFR (Non-Af Amer) 53 L (> 60) BUN/Creatinine Ratio 23 (6-26) Glucose 93 (70-105) mg/dL POC Glucose (70-99) mg/dL Calculated Osmolality 300 (280-300) Calcium 8.6 (8.6-10.3) mg/dL Phosphorus (2.7-4.5) mg/dL Magnesium (1.6-2.6) mg/dL Troponin I (< 0.04) ng/mL Urine Color (Yellow) Urine Clarity (Clear) Urine pH (5.0-8.0) pH Units Ur Specific [place] (1.010-1.025) Urine Protein (Neg-Trace) mg/dL Urine Glucose (UA) (Normal) mg/dL Urine Ketones (Negative) mg/dL Urine Blood (Negative) Urine Nitrite (Negative) Urine Bilirubin (Negative) Urine Urobilinogen (Normal) mg/dL Ur Leukocyte Esterase (Negative) Ur Culture Indicated? (NO) - Radiology Data Radiology results reviewed: Yes I reviewed the patient's radiology results. Attestation Statement - Attestation Attestation: I, Dakota Arevalo, examined this patient and my medical decision-making was reviewed with the CILNICAL SCIENTIST/PA/Advanced Practice Nurse/Resident Physician. I agree with the documented findings, disposition and treatment plan as described except to the extent set forth below. 68-year-old male presents emergency Department with concerns of hypertension. Patient has a history of Arian's disease and his had addisonian crisis multiple times in the past. He noted that his blood pressures in the low the past 2-3 days. He was given IV fluids and steroids at the ID with improvement of his blood pressure. They sent him to the [facility] for further evaluation and likely admission. Patient has been admitted to [facility] multiple times in the past. Patient denies recent trauma, fever, chills, nausea, vomiting, diarrhea. 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 Patient is awake alert and answering questions appropriately emergency department. He is no longer hypotensive. EKG was reviewed with the resident and I agree with the interpretation. We spoke with the hospitalist who recommended that he was safe to be admitted to [facility] for further care and evaluation and stabilization that he could follow-up as outpatient for his endocrine problems.
[2018-11-29 14:53] LABS: Bilirubin,Urine Negative (Negative); Blood,Urine Negative (Negative); Clarity,Urine Clear (Clear); Color,Urine Yellow (Yellow); Glucose,Urine (UA) Normal (Normal); Ketones,Urine Negative (Negative); Leukocyte Esterase,Urine Negative (Negative); Nitrite,Urine Negative (Negative); Protein,Urine Negative (Neg-Trace); Specific Gravity,Urine 1.021 (1.010-1.025); Urobilinogen,Urine Normal (Normal)
[2018-11-29] MEDS ORDERED: *HR* HYDROcodone/Acet 5/325 mg TABLET PO PRN (16:18)
[2018-11-29] MEDS ORDERED: Naloxone 0.4 MG/ML INJ IVP PRN (16:18)
[2018-11-29] MEDS ORDERED: *HR* Dextrose 50 % in Water (Syg) 50 ML SYRINGE IVP PRN (16:22)
[2018-11-29] MEDS ORDERED: Dextrose Gel 15 GM/37.5 ML TUBE PO PRN ×2 (16:22)
[2018-11-29] MEDS ORDERED: D5% in Water 1,000 ML IVC PRN (16:22)
[2018-11-29] MEDS ORDERED: 0.9 % Sodium Chloride 1,000 ML IVC SCH (16:45)
--- NOTE | 2018-11-29 17:07 | Internal Med History&Physical ---
Date of Encounter: 11/29/18 Time of Encounter: 17:01 Internal Medicine - H&P: HPI Chief complaint: dizziness. hypotension Admitted From: Home Plans for Post Hospital Care: Home History of present illness: Mr. Issa is a 68 year old male PMH of DM, HFpEF, adrenal insufficiency, COPD, CAD, A.fib, HTN, HLD, PE, and CKD. Patient was transferred to the hospital from the [facility] where he presented with dizziness and was found to be hypotensive. Patient reports for the past 3-4 days he has been feeling weak and getting dizzy, light headed every time he would stand up. Reports he has checked his BP during this period of time and it has been around 70, 80, 90 for SBP. Reports today the same happened and his SBP was in the 90s and [facility]. stated that in the [facility] his BP was also found to be low he got some IV medications and was sent to [facility] for further management. Reports being compliant with his medications. Denies fever, chills, or urinary symptoms. Denies shortness of breath. Reports his ankle feel a little swollen. Past Med Surg Social Fam HX - Past Medical History Medical history: arthritis, atrial fibrillation, CHF, COPD, CVA, diabetes, GERD, hyperlipidemia, hypertension, pulmonary embolus, renal disease, other Additional medical history: Pacemaker, emphysema, sick sinus syndrome. chronic knee pain. 3 CVA's. Last CVA April 2018. Psychiatric history: anxiety, depression, panic disorder, PTSD, previous psychiatric hospitalization - Past Surgical History Surgical History: herniorrhaphy Additional surgical history: Right knee replacement. Cardiac Ablasion 2014. left arm - Social History Smoking Status: Former smoker Smokeless Tobacco Status: No Alcohol use: none Drug use: none - Family History Father Adopted: No Family Member Ethnicity: Non- Living Status: Hx Family Cardiac Disorders: No Hx Family Respiratory Disorders: No Hx Family Cancer: Yes Hx Family GI Disorders: No Hx Family Endocrine Disorder: No Hx Family Neuromuscular Disorders: No Hx Family Neurologic Disorders: No Hx Family HEENT Disorders: No Hx Family Autoimmune Disorders: No Brother Family Member Ethnicity: Non- Living Status: Still Living Sister Family Member Ethnicity: Non- Living Status: Still Living Mother Adopted: No Family Member Ethnicity: Non- Twin of Family Member: Yes Living Status: Hx Family Cardiac Disorders: Yes (CHF) Hx Family Respiratory Disorders: No Hx Family Cancer: No Hx Family GI Disorders: No Hx Family Endocrine Disorder: Yes (DM) Hx Family Neuromuscular Disorders: No Hx Family Neurologic Disorders: No Hx Family HEENT Disorders: No Hx Family Autoimmune Disorders: No Internal Medicine - H&P: Meds Amiodarone [Cordarone] 200 mg PO DAILY 04/04/18 [History] Aspirin 81 mg PO DAILY 04/04/18 [History] Finasteride [Proscar] 5 mg PO DAILY 04/04/18 [History] Lubiprostone [Amitiza] 16 mcg PO BIDWM 04/04/18 [History] Pantoprazole Sodium [Protonix] 40 mg PO DAILY@0730 04/04/18 [History] Tamsulosin HCl [Flomax] 0.4 mg PO BID 04/04/18 [History] Tiotropium Br/Olodaterol HCl [Stiolto Respimat Inhal [place]] 2 puff IH DAILY 04/24/18 [History] Insulin ASPART [NovoLOG] 0 unit SQ TIDAC MDD PER SLIDING SCALE 04/25/18 [History] Fluticasone/Salmeterol [Advair 250-50 Diskus] 1 puff IH BID 06/30/18 [History] Gabapentin [Neurontin] 400 mg PO BID 06/30/18 [History] Acetaminophen [Tylenol] 650 mg PO Q6HR PRN 07/26/18 [History] DiphenhydraMINE [Benadryl] 25 mg PO HS PRN 07/26/18 [History] Capsaicin [High Potency Capsaicin] 1 appl TP QID PRN 08/27/18 [History] Carboxymethylcellulose Sodium [Refresh Liquigel] 1 drop BOTH EYES TID 08/27/18 [History] Metoprolol Succinate [Toprol Xl] 12.5 mg PO DAILY 08/27/18 [History] Polyethylene Glycol 3350 [Natura-Lax] 17 gm PO DAILY PRN 08/27/18 [History] Potassium Chloride [Klor-Con 10] 20 meq PO BID 08/27/18 [History] Saline Nasal [place] [Soso Nasal [place]] 2 spray NS Q2H PRN 08/27/18 [History] Simethicone [Gas-X] 80 mg PO TID PRN 08/27/18 [History] Trazodone HCl 200 mg PO HS 08/27/18 [History] Docusate [Colace] 300 mg PO HS 09/17/18 [History] Fluticasone Propionate Nasal [Flonase] 1 spray NS BID PRN 09/17/18 [History] Rivaroxaban [Xarelto] 15 mg PO DAILY 09/17/18 [History] Tizanidine HCl 2 mg PO BID PRN 09/17/18 [History] Albuterol Neb [AccuNeb] 0.63 mg IH TID 11/18/18 [History] Atorvastatin [Lipitor] 40 mg PO DAILY 11/18/18 [History] Cholecalciferol (D-3) [Vitamin D] 2,000 unit PO DAILY 11/18/18 [History] Duloxetine HCl [Cymbalta] 60 mg PO DAILY 11/18/18 [History] Melatonin [Melatin] 9 mg PO HS 11/18/18 [History] Memantine HCl 10 mg PO BID 11/18/18 [History] Oxycodone HCl [Roxybond] 10 mg PO Q8H PRN 11/18/18 [History] Sennosides [Senokot] 17.2 mg PO BID PRN 11/18/18 [History] Sennosides/Docusate Sodium [Docusate Sodium-Sennosides Tab] 1 each PO BID PRN 11/18/18 [History] Fludrocortisone Acetate [Florinef] 0.1 mg PO DAILY #30 tablet 11/22/18 [Rx] Furosemide [Lasix] 20 mg PO BIDDIURETIC #60 tablet 11/22/18 [Rx] Hydrocortisone [Cortef] 15 mg PO DAILY #30 tablet 11/22/18 [Rx] Allergy/AdvReac Type Severity Reaction Status Date / Time IVP DYE Allergy Severe Anaphylaxis Uncoded 10/09/18 14:23 All Systems PM: A 10-system review of systems was performed and is negative for pertinent fin dings except as documented above in the HPI. - Constitutional Constitutional: weakness, no chills, no fever(s), no falls, no lethargy, no malaise - EENT Eyes: no pain, no tunnel vision Nose, mouth and throat: no dysphagia, no mouth pain, no sore throat - Cardiovascular Cardiovascular ROS IM: lightheadedness, no chest pain, no dyspnea on exertion, no orthopnea, no syncope - Respiratory Respiratory: no cough, no wheezing, no chest congestion - Genitourinary Genitourinary ROS male: no dysuria, no flank pain, no nocturia, no urinary frequency, no urinary incontinence, no urinary urgency - Musculoskeletal Musculoskeletal ROS IM: no back pain, no numbness - Integumentary Integumentary IM: no erythema, no pruritus, no sores - Neurological Neurological ROS: weakness, no headache(s), no vertigo - Psychiatric Psychiatric: no anxiety, no hopelessness, no irritability - Endocrine Endocrine IM: no cold intolerance, no excessive sweating - Hematologic/Lymphatic Hematologic/Lymphatic: no lymphadenopathy - Allergic/Immunologic Allergic/Immunologic: no wheezing - Constitutional Vitals: Temp Pulse Resp BP Pulse Ox 98.2 F 64 16 106/64 96 11/29/18 13:54 11/29/18 15:48 11/29/18 16:57 11/29/18 16:57 11/29/18 15:48 Exam: Vitals: Reviewed General: Alert and oriented x4. Mild distress due to generalized weakness Skin: normal color, no rash, no lesions. HEENT: EOM, pupils equal, round and reactive. Cardiovascular: Irregularly, irregular, normal S1 & S2, no rubs, murmurs or gallops. Lungs: CTA b/l, no wheezes or crackles. Abdomen: Obese, soft, non-tender, no rigidity. Extremities: 1+ pitting edema in the lower extr b/l. Neurological: Normal cognition and motor skills. Rest of the physical exam is non contributory Internal Med - H&P Results - Labs Labs: Urine 11/29/18 Range/Units Unknown Urine Color Yellow (Yellow) Urine Clarity Clear (Clear) Urine pH 6.0 (5.0-8.0) pH Units Ur Specific [place] 1.021 (1.010-1.025) Urine Protein Negative (Neg-Trace) mg/dL Urine Glucose (UA) Normal (Normal) mg/dL - Assessment and Plan (1) Hypotension Current Visit: No Status: Acute Assessment and plan: [facility] with [facility]. possible due to adisonian crisis. Plan will start patient on high dose hydrocortisone 50mg/IV TID patient might benefit from increasing his outpatient hydrocortisone done, he is on 15mg/PO once a day chest x-ray, UA ordered to r/o possible infection as the cause 0.9NS @60 ml/hr x1 litter residential monitor Qualifiers: Hypotension type: unspecified hypotension type Qualified Code(s): I95.9 - Hypotension, unspecified (2) Acute kidney injury Current Visit: No Status: Acute Assessment and plan: patient reported being told his creat was 201 this time. possible due to low preload started on gentle IV hydration. will monitor for signs of volume overload. will check kidney function tomorrow morning (3) BPH (benign prostatic hyperplasia) Current Visit: No Status: Chronic Assessment and plan: will continue finasteride 5mg/PO daily. Qualifiers: Lower urinary tract symptom presence: symptoms present Lower urinary tract symptom detail: urinary obstruction Qualified Code(s): N40.1 - Benign prostatic hyperplasia with lower urinary tract symptoms; N13.8 - Other obstructive and reflux uropathy; N13.8 - Other obstructive and reflux uropathy (4) DVT prophylaxis Current Visit: No Status: Acute Assessment and plan: on ribaroxaban (5) Diabetes Current Visit: No Status: Chronic Assessment and plan: carbs controlled diet. lispro medium dose sliding scale ac. levemir 5 units hs. 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 patient is on amiodarone and metoprolol. will hold medications due to hypotension. Qualifiers: Atrial fibrillation type: paroxysmal Qualified Code(s): I48.0 - Paroxysmal atrial fibrillation (7) CAD (coronary artery disease) Current Visit: No Status: Chronic Assessment and plan: aspirin 81mg/PO daily Qualifiers: Coronary Disease-Associated Artery/Lesion type: [place] artery [place] vs. transplanted heart: [place] heart Associated angina: without angina Qualified Code(s): I25.10 - Atherosclerotic heart disease of [place] coronary artery without angina pectoris (8) COPD (chronic obstructive pulmonary disease) Current Visit: No Status: Chronic Assessment and plan: no wheezing on auscultation. started on bronchodilators Q4RT PRN Qualifiers: COPD type: unspecified COPD Qualified Code(s): J44.9 - Chronic obstructive pulmonary disease, unspecified (9) Diastolic CHF, chronic Current Visit: No Status: Chronic Assessment and plan: patient not on acute exacerbation. strict intake and output daily weight diuretics held due to hypotension (10) HLD (hyperlipidemia) Current Visit: No Status: Chronic Assessment and plan: atorvastatin 40mg/PO daily Qualifiers: Hyperlipidemia type: pure hypercholesterolemia Qualified Code(s): E78.00 - Pure hypercholesterolemia, unspecified; E78.0 - Pure hypercholesterolemia (11) Adrenal insufficiency Current Visit: No Status: Suspected Assessment and plan: plan of care as per problem #1. - Time Spent With Patient Total time spent is greater than 50% in coordination of care (as documented) at patient's floor/unit and/or counseling patient: Greater than 35 minutes (45)
[2018-11-29] MEDS ORDERED: Ipratropium/Albuterol Neb 3 ML IH PRN (17:13)
[2018-11-29 17:18] LABS: Basophils # 0.1 K/mcL (0.0-0.2); Basophils % 0.7 %; Eosinophils % 0.1 %; Hematocrit 43.2 % (37.5-50.1); Hemoglobin 13.3 g/dL (12.9-16.9); Immature Granulocytes % 1.6 % (0-4); Lymphocytes # 0.6 K/mcL (0.6-4.6); Lymphocytes % 4.7 %; Mean Corpuscular HGB Conc 30.8 g/dL (31.6-35.5); Mean Corpuscular Hemoglobin 27.6 pg (28.0-33.3); Mean Corpuscular Volume 89.6 fL (83.0-100.0); Mean Platelet Volume 9.2 fL (9.4-12.4); Monocytes # 0.5 K/mcL (0.0-1.3); Monocytes % 3.7 %; Platelet Count 299 K/mcL (140-400); Red Blood Count 4.82 M/mcL (4.19-5.50); Red Cell Distribution Width 15.9 % (11.5-14.5); Segmented Neutrophils % 89.2 %
[2018-11-29 17:27] LABS: INR 1.2; Prothrombin Time 13.1 Seconds (9.4-12.1)
[2018-11-29 17:30] LABS: Activated Partial Thrombo Time 31.4 Seconds (26.0-36.0)
[2018-11-29 17:36] LABS: Calcium 8.7 mg/dL (8.6-10.3); Potassium 3.7 mEq/L (3.5-5.1)
[2018-11-29 17:37] LABS: Magnesium 2.1 mg/dL (1.6-2.6); Phosphorous 3.1 mg/dL (2.7-4.5); Troponin I < 0.03 ng/mL (< 0.04)
[2018-11-29] MEDS: Insulin LISPRO 300 UNITS/3 ML VIAL SQ SCH (17:50)
[2018-11-29] MEDS: *HR* Rivaroxaban 15 MG TABLET PO SCH (17:54)
[2018-11-29] MEDS: Hydrocortisone Sodium Succ 100 MG/2 ML VIAL IVP SCH (21:39)
[2018-11-29] MEDS: Insulin DETEMIR 100 UNIT/ML X5UNITS SQ SCH (21:43)
[2018-11-30] MEDS ORDERED: Melatonin 3 MG TABLET PO PRN (01:25)
[2018-11-30 08:01] LABS: Basophils # 0.1 K/mcL (0.0-0.2); Basophils % 0.4 %; Eosinophils % 0.2 %; Hematocrit 38.4 % (37.5-50.1); Immature Granulocytes % 0.8 % (0-4); Lymphocytes # 1.3 K/mcL (0.6-4.6); Lymphocytes % 10.6 %; Mean Corpuscular HGB Conc 30.5 g/dL (31.6-35.5); Mean Corpuscular Volume 88.7 fL (83.0-100.0); Mean Platelet Volume 9.1 fL (9.4-12.4); Monocytes % 8.3 %; Platelet Count 315 K/mcL (140-400); Red Blood Count 4.33 M/mcL (4.19-5.50); Red Cell Distribution Width 16.1 % (11.5-14.5); Segmented Neutrophils % 79.7 %
[2018-11-30 08:03] LABS: Hemoglobin 11.7 g/dL (12.9-16.9)
[2018-11-30] MEDS: Finasteride 5 MG TABLET PO SCH (08:08)
[2018-11-30] MEDS: Aspirin Enteric Coated 81 MG Tablet PO SCH (08:08)
[2018-11-30] MEDS: Hydrocortisone Sodium Succ 100 MG/2 ML VIAL IVP SCH (08:09)
[2018-11-30] MEDS: Insulin LISPRO 300 UNITS/3 ML VIAL SQ SCH ×3 (08:11→16:35)
[2018-11-30 08:20] LABS: BUN/Creatinine Ratio 23 (6-26); Blood Urea Nitrogen 31 mg/dL (8-23); Calcium 8.6 mg/dL (8.6-10.3); Carbon Dioxide 33 mEq/L (23-29); Chloride 103 mEq/L (98-107); Glucose 93 mg/dL (70-105); Osmolality,Calculated 300 (280-300); Potassium 3.6 mEq/L (3.5-5.1); Sodium 142 mEq/L (136-145); eGFR For Non-African Americans 53 (> 60)
--- NOTE | 2018-11-30 12:40 | Internal Med Progress Note ---
Hospitalist Progress Note - Encounter Date of Encounter: 11/30/18 Time of Encounter: 12:38 - Subjective Interval History: I have seen and evaluated the patient at bedside. Patient reports he is feeling better today, denies weakness, but reported feeling lightly short of breath upon ambulation to the restroom. denies chest pain, light headedness or dizziness. denies abdominal pain, nausea or vomiting. - Exam Vitals: Temp Pulse Resp BP Pulse Ox 98.2 F 67 16 143/84 98 11/30/18 11:35 11/30/18 11:35 11/30/18 11:35 11/30/18 11:35 11/30/18 11:35 Exam: Vitals: Reviewed General: Alert and oriented x4. In no distress Cardiovascular: Irregularly, irregular, normal S1 & S2, no rubs, murmurs or gallops. Lungs: CTA b/l, no wheezes or crackles. Abdomen: Obese, soft, non-tender, no rigidity. NABS in all 4 quadrants Extremities: 2+ pitting edema in the lower extr b/l. Neurological: Normal cognition and motor skills. Rest of the physical exam is non contributory - Assessment and Plan (1) Adrenal insufficiency Current Visit: No Status: Suspected Assessment and Plan: patient presented with hypotension. Plan discontinue hydrocortisone IV will start the patient on Hydrocortisone 10mg/PO TID, and will continue his home dose of fludrocortisone 0.1mg/PO daily will continue to closely monitor BP for at least 24-48 hours (2) Hypotension Current Visit: No Status: Resolved (3) Acute kidney injury Current Visit: No Status: Acute Assessment and Plan: resolving. likely due to low pre-load due to hypotension on presentation avoid nephrotoxic medications will reassess kidney function in the morning hold fluids due to patient Hx of CHF and 2+ edema in the lower extr (4) BPH (benign prostatic hyperplasia) Current Visit: No Status: Chronic Assessment and Plan: On finasteride 5mg/PO daily. (5) Diabetes Current Visit: No Status: Chronic Assessment and Plan: Blood sugar is well controlled. On a carb controlled diet, and Levemir 5 unit at bedtime. Continue lispro medium dose sliding scale before meals. (6) Atrial fibrillation Current Visit: No Status: Chronic Assessment and Plan: Rate controlled. on ribaroxaban for secondary stroke prevention. will resume amiodarone 200mg/PO (7) CAD (coronary artery disease) Current Visit: No Status: Chronic Assessment and Plan: Continue aspirin 81mg/PO daily (8) COPD (chronic obstructive pulmonary disease) Current Visit: No Status: Chronic Assessment and Plan: Not an acute exacerbation. Chest clear to auscultation. On bronchodilators Q4RT PRN (9) Diastolic CHF, chronic Current Visit: No Status: Chronic Assessment and Plan: patient not on acute exacerbation. strict intake and output daily weight will hold diuretics for now. (10) HLD (hyperlipidemia) Current Visit: No Status: Chronic Assessment and Plan: Continue atorvastatin 40 mg by mouth at bedtime. (11) Leukocytosis Current Visit: Yes Status: Acute Assessment and Plan: patient with no signs of active infection. will monitor clinically. procalcitonin ordered DVT Prophylaxis: Patient is on ribaroxaban 20mg/PO daily - Summary of Assessment and Plan Summary of Assessment and Plan: Patient to remain in the hospital to continue monitoring BP after medication adjustments. - Time Spent with Patient Total time spent is greater than 50% in coordination of care (as documented) at patient's floor/unit and/or counseling patient: Greater than 35 minutes (40) Plan of Care Discussed with: patient (and the nurse.) Internal Medicine: Result - Labs CBC & Chem 7: 11/30/18 07:37 11/30/18 07:37 Labs: Short CBC 11/29/18 11/30/18 Range/Units 17:05 07:37 WBC 13.4 H 12.6 H (4.3-11.1) K/mcL Hgb 13.3 11.7 L D (12.9-16.9) g/dL Hct 43.2 38.4 (37.5-50.1) % Plt Count 299 315 (140-400) K/mcL Neutrophils # 12.0 H 10.0 H (1.6-8.9) K/mcL BMP 11/29/18 11/30/18 17:05 07:37 Sodium 140 142 Potassium 3.7 3.6 Chloride 101 103 Carbon Dioxide 34 H 33 H BUN 31 H 31 H Creatinine 1.50 H 1.33 H Glucose 130 H 93 Calcium 8.7 8.6 Cardiac Enzymes 11/29/18 Range/Units 17:05 Troponin I < 0.03 (< 0.04) ng/mL Urine 11/29/18 Range/Units Unknown Urine Color Yellow (Yellow) Urine Clarity Clear (Clear) Urine pH 6.0 (5.0-8.0) pH Units Ur Specific [place] 1.021 (1.010-1.025) Urine Protein Negative (Neg-Trace) mg/dL Urine Glucose (UA) Normal (Normal) mg/dL - ABG Interpretation ABG results: PT/INR, D-dimer PT 13.1 Seconds (9.4-12.1) H 11/29/18 17:05 - Impressions Impressions Chest X-Ray 11/29/18 17:00 IMPRESSION: Mild right parahilar and left basilar opacities compatible with atelectasis. In the appropriate clinical setting pneumonia is not excluded. D/ / Dilshad Harrell MD / Dilshad Harrell MD Interpreting Provider: Dilshad Harrell MD Consult Discharge Plan - Plan Referrals: Sweetie Martinez MD [Partnered Physician] - 12/13/18 1:00 pm [facility]Primary Care Provider[facility] - (2) Hypotension Qualifiers: Hypotension type: unspecified hypotension type Qualified Code(s): I95.9 - Hypotension, unspecified (4) BPH (benign prostatic hyperplasia) Qualifiers: Lower urinary tract symptom presence: symptoms present Lower urinary tract symptom detail: urinary obstruction Qualified Code(s): N40.1 - Benign prostatic hyperplasia with lower urinary tract symptoms; N13.8 - Other obstructive and reflux uropathy (5) Diabetes Qualifiers: Diabetes mellitus prison insulin use: unspecified prison insulin use status Diabetes mellitus complication detail: with chronic kidney disease Chronic kidney disease stage: unspecified stage (6) Atrial fibrillation Qualifiers: Atrial fibrillation type: paroxysmal Qualified Code(s): I48.0 - Paroxysmal atrial fibrillation (7) CAD (coronary artery disease) Qualifiers: Coronary Disease-Associated Artery/Lesion type: [place] artery [place] vs. transplanted heart: [place] heart Associated angina: without angina Qualified Code(s): I25.10 - Atherosclerotic heart disease of [place] coronary artery without angina pectoris (8) COPD (chronic obstructive pulmonary disease) Qualifiers: COPD type: unspecified COPD Qualified Code(s): J44.9 - Chronic obstructive pulmonary disease, unspecified (10) HLD (hyperlipidemia) Qualifiers: Hyperlipidemia type: pure hypercholesterolemia Qualified Code(s): E78.00 - Pure hypercholesterolemia, unspecified; E78.0 - Pure hypercholesterolemia (11) Leukocytosis Qualifiers: Leukocytosis type: unspecified Qualified Code(s): D72.829 - Elevated white blood cell count, unspecified
[2018-11-30] MEDS: *HR* Amiodarone 200 MG TABLET PO SCH (13:26)
--- NOTE | 2018-11-30 14:18 | Electrocardiograph Report ---
[address] [address] Test Date: 2018-11-29 Pat Name: Dakota Issa Department: [id number] Room: 2NE19 Gender: M Network Mgr: : [id number] Requested By: Dakota Arevalo Order Number: [id number] Reading MD: Devin Mejía Measurements Intervals [place] Rate: 63 P: AR: 122 QRS: 87 QRSD: 105 T: 62 QT: 426 QTc: 437 Interpretive Statements Atrial-paced rhythm Borderline right axis deviation Electronically Signed On 11-30-2018 14:16:37 EDT by Devin Mejía
[2018-11-30] MEDS: Hydrocortisone 10 MG TABLET PO SCH ×2 (16:34→22:09)
[2018-11-30] MEDS: *HR* Rivaroxaban 15 MG TABLET PO SCH (16:34)
[2018-11-30] MEDS: traZODone 50 MG TABLET PO SCH (22:08)
[2018-11-30] MEDS: Melatonin 3 MG TABLET PO PRN (22:09)
[2018-11-30] MEDS: Insulin DETEMIR 100 UNIT/ML X5UNITS SQ SCH (22:10)
[2018-12-01 05:17] LABS: Basophils # 0.1 K/mcL (0.0-0.2); Basophils % 0.7 %; Eosinophils # 0.2 K/mcL (0.0-0.6); Eosinophils % 2.1 %; Hematocrit 36.7 % (37.5-50.1); Hemoglobin 11.4 g/dL (12.9-16.9); Immature Granulocytes % 1.5 % (0-4); Lymphocytes # 1.3 K/mcL (0.6-4.6); Lymphocytes % 13.1 %; Mean Corpuscular HGB Conc 31.1 g/dL (31.6-35.5); Mean Corpuscular Hemoglobin 27.1 pg (28.0-33.3); Mean Corpuscular Volume 87.4 fL (83.0-100.0); Mean Platelet Volume 9.2 fL (9.4-12.4); Monocytes % 10.2 %; Neutrophils # 7.1 K/mcL (1.6-8.9); Platelet Count 286 K/mcL (140-400); Red Cell Distribution Width 16.2 % (11.5-14.5); Segmented Neutrophils % 72.4 %
[2018-12-01 05:35] LABS: BUN/Creatinine Ratio 20 (6-26); Blood Urea Nitrogen 23 mg/dL (8-23); Calcium 8.6 mg/dL (8.6-10.3); Carbon Dioxide 30 mEq/L (23-29); Chloride 106 mEq/L (98-107); Glucose 160 mg/dL (70-105); Magnesium 2.1 mg/dL (1.6-2.6); Osmolality,Calculated 299 (280-300); Phosphorous 3.3 mg/dL (2.7-4.5); Potassium 3.7 mEq/L (3.5-5.1); Sodium 141 mEq/L (136-145); eGFR For Non-African Americans > 60 (> 60)
[2018-12-01] MEDS: Insulin LISPRO 300 UNITS/3 ML VIAL SQ SCH ×3 (07:56→16:33)
[2018-12-01] MEDS: Hydrocortisone 10 MG TABLET PO SCH ×3 (07:57→22:13)
[2018-12-01] MEDS: Furosemide 20 MG TABLET PO SCH (07:57)
[2018-12-01] MEDS: Finasteride 5 MG TABLET PO SCH (07:57)
[2018-12-01] MEDS: Aspirin Enteric Coated 81 MG Tablet PO SCH (07:58)
[2018-12-01] MEDS: *HR* Amiodarone 200 MG TABLET PO SCH (07:58)
--- NOTE | 2018-12-01 11:20 | Internal Med Progress Note ---
Hospitalist Progress Note - Encounter Date of Encounter: 12/01/18 Time of Encounter: 11:19 - Subjective Interval History: I have seen and evaluated the patient at bedside. patient reports feeling well. denies shortness of breath, abdominal pain or nausea. denies generalized weakness - Exam Vitals: Temp Pulse Resp BP Pulse Ox 98.5 F 63 19 115/73 95 12/01/18 10:46 12/01/18 10:46 12/01/18 10:46 12/01/18 10:46 12/01/18 10:46 Exam: Vitals: Reviewed General: Alert and oriented x4. In no distress Cardiovascular: Irregularly, irregular, normal S1 & S2, no rubs, murmurs or gallops. Lungs: CTA b/l, no wheezes or crackles. Abdomen: Obese, soft, non-tender, no rigidity. NABS in all 4 quadrants Extremities: 2+ pitting edema in the lower extr b/l. Neurological: No focal neurological deficits Rest of the physical exam is non contributory - Assessment and Plan (1) Adrenal insufficiency Current Visit: No Status: Suspected Assessment and Plan: BP has been stable following medications adjustments. Plan continue Hydrocortisone 10mg/PO TID, and fludrocortisone 0.1mg/PO daily (2) Acute kidney injury Current Visit: No Status: Resolved (3) BPH (benign prostatic hyperplasia) Current Visit: No Status: Chronic Assessment and Plan: On finasteride 5mg/PO daily. (4) Diabetes Current Visit: No Status: Chronic Assessment and Plan: Blood sugar is well controlled. On a carb controlled diet, and Levemir 5 unit at bedtime. Continue lispro medium dose sliding scale before meals. (5) Atrial fibrillation Current Visit: No Status: Chronic Assessment and Plan: Rate controlled. Plan continue ribaroxaban for secondary stroke prevention. On amiodarone 200mg/PO (6) CAD (coronary artery disease) Current Visit: No Status: Chronic Assessment and Plan: Continue aspirin 81mg/PO daily (7) COPD (chronic obstructive pulmonary disease) Current Visit: No Status: Chronic Assessment and Plan: Not an acute exacerbation. patient is on bronchodilators Q4RT PRN. incentive spirometry. (8) Diastolic CHF, chronic Current Visit: No Status: Chronic Assessment and Plan: patient not on acute exacerbation. 2+ pitting edema in the lower extr. clear chest to auscultation. Plan strict intake and output daily weight started on furosemide 20mg/PO daily. (9) HLD (hyperlipidemia) Current Visit: No Status: Chronic Assessment and Plan: On atorvastatin 40 mg by mouth at bedtime. (10) Leukocytosis Current Visit: Yes Status: Resolved (11) Hypotension Current Visit: No Status: Resolved DVT Prophylaxis: patient in on ribaroxaban for secondary stroke prevention - Summary of Assessment and Plan Summary of Assessment and Plan: Patient to remain in the hospital for 24 more hours to monitor BP after medications adjustments. - Time Spent with Patient Total time spent is greater than 50% in coordination of care (as documented) at patient's floor/unit and/or counseling patient: Greater than 35 minutes (40) Plan of Care Discussed with: patient (and the nurse.) Internal Medicine: Result - Labs CBC & Chem 7: 12/01/18 04:55 12/01/18 04:55 Labs: Short CBC 12/01/18 Range/Units 04:55 WBC 9.8 (4.3-11.1) K/mcL Hgb 11.4 L (12.9-16.9) g/dL Hct 36.7 L (37.5-50.1) % Plt Count 286 (140-400) K/mcL Neutrophils # 7.1 (1.6-8.9) K/mcL BMP 12/01/18 04:55 Sodium 141 Potassium 3.7 Chloride 106 Carbon Dioxide 30 H BUN 23 Creatinine 1.13 Glucose 160 H Calcium 8.6 - ABG Interpretation ABG results: PT/INR, D-dimer PT 13.1 Seconds (9.4-12.1) H 11/29/18 17:05 Consult Discharge Plan - Plan Referrals: Sweetie Martinez MD [Partnered Physician] - 12/13/18 1:00 pm [facility] Provider[facility] - (3) BPH (benign prostatic hyperplasia) Qualifiers: Lower urinary tract symptom presence: symptoms present Lower urinary tract symptom detail: urinary obstruction Qualified Code(s): N40.1 - Benign prostatic hyperplasia with lower urinary tract symptoms; N13.8 - Other obstructive and reflux uropathy (4) Diabetes Qualifiers: Diabetes mellitus intermediate insulin use: 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 tra nsplanted heart: [place] heart Associated angina: without angina Qualified Code(s): I25.10 - Atherosclerotic heart disease of [place] coronary artery without angina pectoris (7) COPD (chronic obstructive pulmonary disease) Qualifiers: COPD type: unspecified COPD Qualified Code(s): J44.9 - Chronic obstructive pulmonary disease, unspecified (9) HLD (hyperlipidemia) Qualifiers: Hyperlipidemia type: pure hypercholesterolemia Qualified Code(s): E78.00 - Pure hypercholesterolemia, unspecified; E78.0 - Pure hypercholesterolemia (10) Leukocytosis Qualifiers: Leukocytosis type: unspecified Qualified Code(s): D72.829 - Elevated white blood cell count, unspecified (11) Hypotension Qualifiers: Hypotension type: unspecified hypotension type Qualified Code(s): I95.9 - Hypotension, unspecified
[2018-12-01] MEDS: *HR* Rivaroxaban 15 MG TABLET PO SCH (16:34)
[2018-12-01] MEDS: Insulin DETEMIR 100 UNIT/ML X5UNITS SQ SCH (22:11)
[2018-12-01] MEDS: Melatonin 3 MG TABLET PO PRN (22:13)
[2018-12-01] MEDS: traZODone 50 MG TABLET PO SCH (22:13)
[2018-12-02] MEDS: *HR* Amiodarone 200 MG TABLET PO SCH (09:14)
[2018-12-02] MEDS: Hydrocortisone 10 MG TABLET PO SCH (09:14)
[2018-12-02] MEDS: Finasteride 5 MG TABLET PO SCH (09:14)
[2018-12-02] MEDS: Aspirin Enteric Coated 81 MG Tablet PO SCH (09:14)
[2018-12-02] MEDS: Furosemide 20 MG TABLET PO SCH (09:14)
[2018-12-02] MEDS: Insulin LISPRO 300 UNITS/3 ML VIAL SQ SCH (09:15)
[2018-12-02 09:29] LABS: BUN/Creatinine Ratio 15 (6-26); Blood Urea Nitrogen 17 mg/dL (8-23); Calcium 8.9 mg/dL (8.6-10.3); Carbon Dioxide 32 mEq/L (23-29); Chloride 102 mEq/L (98-107); Glucose 132 mg/dL (70-105); Magnesium 2.1 mg/dL (1.6-2.6); Osmolality,Calculated 295 (280-300); Sodium 141 mEq/L (136-145); eGFR For Non-African Americans > 60 (> 60)
--- NOTE | 2018-12-02 09:35 | Discharge Summary ---
Date of Encounter: 12/02/18 Time of Encounter: 09:32 - Discharge Diagnosis (1) Adrenal insufficiency Priority: Primary Status: Suspected (2) Acute kidney injury Priority: Primary Status: Resolved (3) BPH (benign prostatic hyperplasia) Priority: Secondary Status: Chronic Qualifiers: Lower urinary tract symptom presence: symptoms present Lower urinary tract symptom detail: urinary obstruction Qualified Code(s): N40.1 - Benign pro static hyperplasia with lower urinary tract symptoms; N13.8 - Other obstructive and reflux uropathy (4) Diabetes Priority: Secondary Status: Chronic Qualifiers: Diabetes mellitus penitentiary insulin use: unspecified penitentiary insulin use status Diabetes mellitus complication detail: with chronic kidney disease Chronic kidney disease stage: unspecified stage Qualified Code(s): E08.22 - Diabetes mellitus due to underlying condition with diabetic chronic kidney disease (5) Atrial fibrillation Priority: Secondary Status: Chronic Qualifiers: Atrial fibrillation type: paroxysmal Qualified Code(s): I48.0 - Paroxysmal atrial fibrillation (6) CAD (coronary artery disease) Priority: Secondary Status: Chronic Qualifiers: Coronary Disease-Associated Artery/Lesion type: [place] artery [place] vs. transplanted heart: [place] heart Associated angina: without angina Qualified Code(s): I25.10 - Atherosclerotic heart disease of [place] coronary artery without angina pectoris (7) COPD (chronic obstructive pulmonary disease) Priority: Secondary Status: Chronic Qualifiers: COPD type: unspecified COPD Qualified Code(s): J44.9 - Chronic obstructive pulmonary disease, unspecified (8) Diastolic CHF, chronic Priority: Secondary Status: Chronic (9) HLD (hyperlipidemia) Priority: Secondary Status: Chronic Qualifiers: Hyperlipidemia type: pure hypercholesterolemia Qualified Code(s): E78.00 - Pure hypercholesterolemia, unspecified; E78.0 - Pure hypercholesterolemia (10) Leukocytosis Priority: Secondary Status: Resolved Qualifiers: Leukocytosis type: unspecified Qualified Code(s): D72.829 - Elevated white blood cell count, unspecified (11) Hypotension Priority: Primary Status: Resolved Qualifiers: Hypotension type: unspecified hypotension type Qualified Code(s): I95.9 - Hypotension, unspecified Hospital course: Mr. Issa is a 68 year old male PMH of DM, HFpEF, adrenal insufficiency, COPD, CAD, A.fib, HTN, HLD, PE, and CKD. Patient was transferred to the hospital from the [facility] where he presented with dizziness and was found to be hypotensive. Patient reports for the past 3-4 days he has been feeling weak and getting dizzy, light headed every time he would stand up. Reports he has checked his BP during this period of time and it has been around 70, 80, 90 for SBP. Patient was admitted to the hospital due to possible adrenal crisis, hypotension and AG. Patient was managed with high dose IV steroids, and IV fluids with normalization of his vital signs. Patient hydrocortisone dose has been changed to TID. BP has remain stable and patient reports the his acute symptoms have resolved. Patient is hemodynamycally stable to be discharged. strongly recommended to follow up with an farm crew leader as outpatient. Also recommended to have a repeat BMP within a week of hospital discharge. - Time Spent with Patient Total time spent providing and/or coordinating discharge services: Time spent: Greater than 30 minutes (35) - Discharge Medications Prescriptions: New Hydrocortisone [Cortef] 10 mg PO TID 30 Days #90 tablet Continued Tamsulosin HCl [Flomax] 0.4 mg PO BID Amiodarone [Cordarone] 200 mg PO DAILY Aspirin 81 mg PO DAILY Lubiprostone [Amitiza] 16 mcg PO BIDWM Pantoprazole Sodium [Protonix] 40 mg PO DAILY@0730 Finasteride [Proscar] 5 mg PO DAILY Tiotropium Br/Olodaterol HCl [Stiolto Respimat Inhal [place]] 2 puff IH DAILY Insulin ASPART [NovoLOG] 0 unit SQ TIDAC MDD PER SLIDING SCALE Gabapentin [Neurontin] 400 mg PO BID Fluticasone/Salmeterol [Advair 250-50 Diskus] 1 puff IH BID Acetaminophen [Tylenol] 650 mg PO Q6HR PRN PRN Reason: PAIN/FEVER DiphenhydraMINE [Benadryl] 25 mg PO HS PRN PRN Reason: Sleep Carboxymethylcellulose Sodium [Refresh Liquigel] 1 drop BOTH EYES TID Metoprolol Succinate [Toprol Xl] 12.5 mg PO DAILY Potassium Chloride [Klor-Con 10] 20 meq PO BID Saline Nasal [place] [[place] Nasal [place]] 2 spray NS Q2H PRN PRN Reason: "NASAL PASSAGE CLEARING" Simethicone [Gas-X] 80 mg PO TID PRN PRN Reason: GAS Capsaicin [High Potency Capsaicin] 1 appl TP QID PRN PRN Reason: Pain Polyethylene Glycol 3350 [Natura-Lax] 17 gm PO DAILY PRN PRN Reason: Constipation Trazodone HCl 200 mg PO HS Docusate [Colace] 300 mg PO HS Fluticasone Propionate Nasal [Flonase] 1 spray NS BID PRN PRN Reason: Allergy Symptoms Rivaroxaban [Xarelto] 15 mg PO DAILY Tizanidine HCl 2 mg PO BID PRN PRN Reason: MUSCLE SPASM Albuterol Neb [AccuNeb] 0.63 mg IH TID Atorvastatin [Lipitor] 40 mg PO QPM Cholecalciferol (D-3) [Vitamin D] 2,000 unit PO DAILY Sennosides/Docusate Sodium [Docusate Sodium-Sennosides Tab] 1 each PO BID PRN PRN Reason: Constipation Melatonin [Melatin] 9 mg PO HS Memantine HCl 10 mg PO BID Oxycodone HCl [Roxybond] 10 mg PO Q8H PRN PRN Reason: Pain Furosemide [Lasix] 20 mg PO BIDDIURETIC #60 tablet Fludrocortisone Acetate [Florinef] 0.1 mg PO DAILY #30 tablet DULoxetine [Cymbalta] 30 mg PO DAILY Discontinued Sennosides [Senokot] 17.2 mg PO BID PRN PRN Reason: Constipation Hydrocortisone [Cortef] 15 mg PO DAILY #30 tablet Home Medications: Amiodarone [Cordarone] 200 mg PO DAILY 04/04/18 [History] Aspirin 81 mg PO DAILY 04/04/18 [History] Finasteride [Proscar] 5 mg PO DAILY 04/04/18 [History] Lubiprostone [Amitiza] 16 mcg PO BIDWM 04/04/18 [History] Pantoprazole Sodium [Protonix] 40 mg PO DAILY@0730 04/04/18 [History] Tamsulosin HCl [Flomax] 0.4 mg PO BID 04/04/18 [History] Tiotropium Br/Olodaterol HCl [Stiolto Respimat Inhal [place]] 2 puff IH DAILY 04/24/18 [History] Insulin ASPART [NovoLOG] 0 unit SQ TIDAC MDD PER SLIDING SCALE 04/25/18 [History] Fluticasone/Salmeterol [Advair 250-50 Diskus] 1 puff IH BID 06/30/18 [History] Gabapentin [Neurontin] 400 mg PO BID 06/30/18 [History] Acetaminophen [Tylenol] 650 mg PO Q6HR PRN 07/26/18 [History] DiphenhydraMINE [Benadryl] 25 mg PO HS PRN 07/26/18 [History] Capsaicin [High Potency Capsaicin] 1 appl TP QID PRN 08/27/18 [History] Carboxymethylcellulose Sodium [Refresh Liquigel] 1 drop BOTH EYES TID 08/27/18 [History] Metoprolol Succinate [Toprol Xl] 12.5 mg PO DAILY 08/27/18 [History] Polyethylene Glycol 3350 [Natura-Lax] 17 gm PO DAILY PRN 08/27/18 [History] Potassium Chloride [Klor-Con 10] 20 meq PO BID 08/27/18 [History] Saline Nasal [place] [[place]l Nasal [place]] 2 spray NS Q2H PRN 08/27/18 [History] Simethicone [Gas-X] 80 mg PO TID PRN 08/27/18 [History] Trazodone HCl 200 mg PO HS 08/27/18 [History] Docusate [Colace] 300 mg PO HS 09/17/18 [History] Fluticasone Propionate Nasal [Flonase] 1 spray NS BID PRN 09/17/18 [History] Rivaroxaban [Xarelto] 15 mg PO DAILY 09/17/18 [History] Tizanidine HCl 2 mg PO BID PRN 09/17/18 [History] Albuterol Neb [AccuNeb] 0.63 mg IH TID 11/18/18 [History] Atorvastatin [Lipitor] 40 mg PO QPM 11/18/18 [History] Cholecalciferol (D-3) [Vitamin D] 2,000 unit PO DAILY 11/18/18 [History] Melatonin [Melatin] 9 mg PO HS 11/18/18 [History] Memantine HCl 10 mg PO BID 11/18/18 [History] Oxycodone HCl [Roxybond] 10 mg PO Q8H PRN 11/18/18 [History] Sennosides/Docusate Sodium [Docusate Sodium-Sennosides Tab] 1 each PO BID PRN 11/18/18 [History] Fludrocortisone Acetate [Florinef] 0.1 mg PO DAILY #30 tablet 05/23/19 [Rx] Furosemide [Lasix] 20 mg PO BIDDIURETIC #60 tablet 11/22/18 [Rx] DULoxetine [Cymbalta] 30 mg PO DAILY 11/30/18 [History] Hydrocortisone [Cortef] 10 mg PO TID 30 Days #90 tablet 12/02/18 [Rx] Allergies/Adverse Reactions: Allergy/AdvReac Type Severity Reaction Status Date / Time IVP DYE Allergy Severe Anaphylaxis Uncoded 11/30/18 22:26 Date of admission: 11/30/18 08:16 Primary care physician: PCP NM - Constitutional Vitals: Temp Pulse Resp BP Pulse Ox 98.1 F 62 16 127/76 93 12/02/18 07:36 12/02/18 07:36 12/02/18 07:36 12/02/18 07:36 12/02/18 07:36 Exam: Vitals: Reviewed General: Alert and oriented x4. In no distress Cardiovascular: Irregularly, irregular, normal S1 & S2, no rubs, murmurs or gall ops. Lungs: CTA b/l, no wheezes or crackles. Abdomen: Obese, soft, non-tender, no rigidity. NABS in all 4 quadrants Extremities: 2+ pitting edema in the lower extr b/l. Neurological: No focal neurological deficits Rest of the physical exam is non contributory - Patient Status Disposition: Home Health Service Condition: Good Functional capacity at discharge: independent ambulation Overall status at discharge: patient is back to baseline - Discharge Instructions Follow Up With: Sweetie Martinez MD [Partnered Physician] - 12/13/18 1:00 pm NM,PCP [Primary Care Provider] - - Diet and Activity Activity: resume usual activities as tolerated, wear oxygen at all times Diet: diabetic diet, low salt diet
--- NOTE | 2018-12-02 09:44 | Physician Discharge Referral ---
Home Health/Hosp Referral Info Transfer to: Home Health - Diagnosis (1) Adrenal insufficiency Priority: Primary Status: Suspected (2) Acute kidney injury Priority: Primary Status: Resolved (3) BPH (benign prostatic hyperplasia) Priority: Secondary Status: Chronic (4) Diabetes Priority: Secondary Status: Chronic (5) Atrial fibrillation Priority: Secondary Status: Chronic (6) CAD (coronary artery disease) Priority: Secondary Status: Chronic (7) COPD (chronic obstructive pulmonary disease) Priority: Secondary Status: Chronic (8) Diastolic CHF, chronic Priority: Secondary Status: Chronic (9) HLD (hyperlipidemia) Priority: Secondary Status: Chronic (10) Leukocytosis Priority: Secondary Status: Resolved (11) Hypotension Priority: Primary Status: Resolved - Respiratory Orders Oxygen / L per min Smoking Cessation: Smoking cessation has been advised. For more information, call the [employer] Tobacco Quit Line at 1-709-UNGI-NOW. - Diet/Nutrition Diet/Nutrition Orders: Regular - Activity Activity Orders: Ambulate - Services Needed Following services are medically necessary services: Nursing, Home Health Aide - Transfer Medications Prescriptions: Hydrocortisone [Cortef] 10 mg PO TID 30 Days #90 tablet Home Medications: Amiodarone [Cordarone] 200 mg PO DAILY 04/04/18 [History] Aspirin 81 mg PO DAILY 04/04/18 [History] Finasteride [Proscar] 5 mg PO DAILY 04/04/18 [History] Lubiprostone [Amitiza] 16 mcg PO BIDWM 04/04/18 [History] Pantoprazole Sodium [Protonix] 40 mg PO DAILY@0730 04/04/18 [History] Tamsulosin HCl [Flomax] 0.4 mg PO BID 04/04/18 [History] Tiotropium Br/Olodaterol HCl [Stiolto Respimat Inhal [place]] 2 puff IH DAILY 04/24/18 [History] Insulin ASPART [NovoLOG] 0 unit SQ TIDAC MDD PER SLIDING SCALE 04/25/18 [History] Fluticasone/Salmeterol [Advair 250-50 Diskus] 1 puff IH BID 06/30/18 [History] Gabapentin [Neurontin] 400 mg PO BID 06/30/18 [History] Acetaminophen [Tylenol] 650 mg PO Q6HR PRN 07/26/18 [History] DiphenhydraMINE [Benadryl] 25 mg PO HS PRN 07/26/18 [History] Capsaicin [High Potency Capsaicin] 1 appl TP QID PRN 08/27/18 [History] Carboxymethylcellulose Sodium [Refresh Liquigel] 1 drop BOTH EYES TID 08/27/18 [History] Metoprolol Succinate [Toprol Xl] 12.5 mg PO DAILY 08/27/18 [History] Polyethylene Glycol 3350 [Natura-Lax] 17 gm PO DAILY PRN 08/27/18 [History] Potassium Chloride [Klor-Con 10] 20 meq PO BID 08/27/18 [History] Saline Nasal [place] [[place] Nasal [place]] 2 spray NS Q2H PRN 08/27/18 [History] Simethicone [Gas-X] 80 mg PO TID PRN 08/27/18 [History] Trazodone HCl 200 mg PO HS 08/27/18 [History] Docusate [Colace] 300 mg PO HS 09/17/18 [History] Fluticasone Propionate Nasal [Flonase] 1 spray NS BID PRN 09/17/18 [History] Rivaroxaban [Xarelto] 15 mg PO DAILY 09/17/18 [History] Tizanidine HCl 2 mg PO BID PRN 09/17/18 [History] Albuterol Neb [AccuNeb] 0.63 mg IH TID 11/18/18 [History] Atorvastatin [Lipitor] 40 mg PO QPM 11/18/18 [History] Cholecalciferol (D-3) [Vitamin D] 2,000 unit PO DAILY 11/18/18 [History] Melatonin [Melatin] 9 mg PO HS 11/18/18 [History] Memantine HCl 10 mg PO BID 11/18/18 [History] Oxycodone HCl [Roxybond] 10 mg PO Q8H PRN 11/18/18 [History] Sennosides/Docusate Sodium [Docusate Sodium-Sennosides Tab] 1 each PO BID PRN 11/18/18 [History] Fludrocortisone Acetate [Florinef] 0.1 mg PO DAILY #30 tablet 11/22/18 [Rx] Furosemide [Lasix] 20 mg PO BIDDIURETIC #60 tablet 11/22/18 [Rx] DULoxetine [Cymbalta] 30 mg PO DAILY 05/31/19 [History] Hydrocortisone [Cortef] 10 mg PO TID 30 Days #90 tablet 12/02/18 [Rx] Allergies/Adverse Reactions: Allergy/AdvReac Type Severity Reaction Status Date / Time IVP DYE Allergy Severe Anaphylaxis Uncoded 11/30/18 22:26 Certification: Further, I certify that my clinical findings support that this patient is homebound (i.e. absences from home require considerable and taxing effort and are for medical reasons or mormonism services or infrequently or short duration when for other reasons) because: Homebound Reason: Patient requires assistance of a person or device to safely leave home Attestation: My signature below is to certify that this patient is under my care and that I, or nurse practitioner, or a physician's operations administrative assistant working with me, has a [id number] encounter with this patient.
[2018-12-02 10:52] VITALS: BP 145/76
== END 2018-12-02 14:04 | disposition home health service (06) | DRG 644 ==
LOC: EMEROOARM 13:49 → 2NENU 13:49 → SUATTDRO 11-30 08:16
PROVIDERS: ADMIT Internal Medicine Nephrology; ATTEND Internal Medicine

== ENCOUNTER 2018-12-29 03:52 | Observation (INO) ==
[2018-12-29] MEDS ORDERED: Ondansetron 4 MG/2 ML VIAL IVP PRN (08:06)
[2018-12-29] MEDS ORDERED: Naloxone 0.4 MG/ML INJ IVP PRN (08:06)
[2018-12-29] MEDS ORDERED: *HR* Dextrose 50 % in Water (Syg) 50 ML SYRINGE IVP PRN (08:10)
[2018-12-29] MEDS ORDERED: D5% in Water 1,000 ML IVC PRN (08:10)
[2018-12-29] MEDS ORDERED: Dextrose Gel 15 GM/37.5 ML TUBE PO PRN ×2 (08:10)
[2018-12-29 09:24] LABS: Basophils % 0.4 %; Eosinophils # 0.3 K/mcL (0.0-0.6); Eosinophils % 3.7 %; Hematocrit 38.2 % (37.5-50.1); Immature Granulocytes % 0.8 % (0-4); Lymphocytes # 0.9 K/mcL (0.6-4.6); Mean Corpuscular HGB Conc 31.4 g/dL (31.6-35.5); Mean Corpuscular Hemoglobin 27.3 pg (28.0-33.3); Mean Corpuscular Volume 86.8 fL (83.0-100.0); Mean Platelet Volume 9.4 fL (9.4-12.4); Monocytes # 0.9 K/mcL (0.0-1.3); Monocytes % 13.1 %; Platelet Count 264 K/mcL (140-400); Red Cell Distribution Width 16.1 % (11.5-14.5); White Blood Count 7.1 K/mcL (4.3-11.1)
[2018-12-29 09:36] LABS: Alanine Aminotransferase 31 Units/L (7-52); Albumin 3.5 g/dL (3.5-5.7); Albumin/Globulin Ratio 1.3 (1.1-2.2); Alkaline Phosphatase 98 Units/L (34-104); Aspartate Amino Transferase 14 Units/L (13-39); BUN/Creatinine Ratio 10 (6-26); Bilirubin,Total 0.3 mg/dL (0.3-1.0); Blood Urea Nitrogen 12 mg/dL (8-23); Calcium 8.8 mg/dL (8.6-10.3); Carbon Dioxide 32 mEq/L (23-29); Chloride 97 mEq/L (98-107); Globulin 2.7 g/dL (2.4-3.5); Glucose 124 mg/dL (70-105); Magnesium 1.8 mg/dL (1.6-2.6); Osmolality,Calculated 289 (280-300); Phosphorous 4.8 mg/dL (2.7-4.5); Potassium 3.4 mEq/L (3.5-5.1); Sodium 139 mEq/L (136-145); Total Protein 6.2 g/dL (6.4-8.9); eGFR For African Americans > 60 (> 60); eGFR For Non-African Americans > 60 (> 60)
[2018-12-29 09:49] LABS: Thyroid Stimulating Hormone 1.566 mcIU/mL (0.340-5.600)
[2018-12-29 09:51] LABS: INR 1.7; Prothrombin Time 19.4 Seconds (9.4-12.1)
[2018-12-29 09:54] LABS: Activated Partial Thrombo Time 37.2 Seconds (26.0-36.0)
[2018-12-29] MEDS: Furosemide 40 MG/4 ML VIAL IVP SCH ×2 (11:03→19:44)
--- NOTE | 2018-12-29 11:39 | Internal Med History&Physical ---
Date of Encounter: 12/29/18 Time of Encounter: 11:39 Internal Medicine - H&P: HPI History of present illness: Mr. Issa is a 68 year old male arthritis, atrial fibrillation, CHF, COPD, CVA, diabetes, GERD, hyperlipidemia, hypertension, pulmonary embolus, renal disease, other presented with progressive worseeneing of SUZE, the patient was recently admitted to the hospital for possible adrenal crisis, hypotension and AG. Patient was managed with high dose IV steroids, and IV fluids and it was recommended to follow up as an outpatient with endocrinology. The patient presented from our side facility today with progressive worsening of shortness of breath as well as lower extremity edema, he also complained of orthopnea, however he denies chest pain, palpitation, paroxysmal nocturnal dyspnea. Chest x-ray revealed congestive heart failure, the son at bedside stated that he noted that his father weight been progressively increasing.the patient was admitted for further evaluation and management of congestive heart failure. Past Med Surg Social Fam HX - Past Medical History Medical history: arthritis, atrial fibrillation, CHF, COPD, CVA, diabetes, GERD, hyperlipidemia, hypertension, pulmonary embolus, renal disease, other Additional medical history: Pacemaker, emphysema, sick sinus syndrome. chronic knee pain. 3 CVA's. Last CVA April 2018. Psychiatric history: anxiety, depression, panic disorder, PTSD, previous psychiatric hospitalization - Past Surgical History Surgical History: herniorrhaphy Additional surgical history: Right knee replacement. Cardiac Ablasion 2014. left arm - Social History Smoking Status: Former smoker Smokeless Tobacco Status: No Alcohol use: none Drug use: none - Family History Father Adopted: No Family Member Ethnicity: Non- Living Status: Hx Family Cardiac Disorders: No Hx Family Respiratory Disorders: No Hx Family Cancer: Yes (leukemia) Hx Family GI Disorders: No Hx Family Endocrine Disorder: No Hx Family Neuromuscular Disorders: No Hx Family Neurologic Disorders: No Hx Family HEENT Disorders: No Hx Family Autoimmune Disorders: No Brother Family Member Ethnicity: Non- Living Status: Still Living Sister Family Member Ethnicity: Non- Living Status: Still Living Mother Adopted: No Family Member Ethnicity: Non- Twin of Family Member: Yes Living Status: Hx Family Cardiac Disorders: Yes (CHF) Hx Family Respiratory Disorders: No Hx Family Cancer: No Hx Family GI Disorders: No Hx Family Endocrine Disorder: Yes (DM) Hx Family Neuromuscular Disorders: No Hx Family Neurologic Disorders: No Hx Family HEENT Disorders: No Hx Family Autoimmune Disorders: No Internal Medicine - H&P: Meds Amiodarone [Cordarone] 200 mg PO QAM 04/04/18 [History] Aspirin 81 mg PO QAM 04/04/18 [History] Finasteride [Proscar] 5 mg PO DAILY 04/04/18 [History] Tamsulosin HCl [Flomax] 0.4 mg PO BID 04/04/18 [History] Insulin ASPART [NovoLOG] 0 unit SQ ACHS MDD PER SLIDING SCALE 04/25/18 [History] Fluticasone/Salmeterol [Advair 250-50 Diskus] 1 puff IH BID 06/30/18 [History] Gabapentin [Neurontin] 400 mg PO BID 06/30/18 [History] Acetaminophen [Tylenol] 650 mg PO Q6HR PRN 07/26/18 [History] Capsaicin [High Potency Capsaicin] 1 appl TP QID PRN 08/27/18 [History] Carboxymethylcellulose Sodium [Refresh Liquigel] 1 drop BOTH EYES TID 08/27/18 [History] Polyethylene Glycol 3350 [Natura-Lax] 17 gm PO DAILY PRN 08/27/18 [History] Saline Nasal [place] [[place] Nasal [place]] 2 spray NS Q2H PRN 08/27/18 [History] Simethicone [Gas-X] 80 mg PO TID PRN 08/27/18 [History] Trazodone HCl 200 mg PO HS 08/27/18 [History] Docusate [Colace] 100 mg PO Q8H PRN 09/17/18 [History] Rivaroxaban [Xarelto] 15 mg PO 2000 09/17/18 [History] Tizanidine HCl 2 mg PO BID PRN 09/17/18 [History] Atorvastatin [Lipitor] 40 mg PO QPM 11/18/18 [History] Cholecalciferol (D-3) [Vitamin D] 2,000 unit PO DAILY 11/18/18 [History] Sennosides/Docusate Sodium [Docusate Sodium-Sennosides Tab] 1 tab PO QAM 11/18/18 [History] DULoxetine [Cymbalta] 60 mg PO DAILY 11/30/18 [History] Albuterol Sulfate [Proair Hfa] 2 puff IH Q4H PRN 12/30/18 [History] Furosemide [Lasix] 40 mg PO DAILY 12/30/18 [History] L. Acidophilus/Pectin, [place] [Acidophilus Capsule] 1 cap PO BID 12/30/18 [History] Omeprazole [PriLOSEC] 20 mg PO QAM 12/30/18 [History] Tiotropium [Spiriva] 1 puff IH DAILY 12/30/18 [History] metOLazone [Zaroxolyn] 5 mg PO DAILY PRN 12/30/18 [History] Fludrocortisone Acetate [Florinef] 0.1 mg PO DAILY 30 Days #30 tablet 01/01/19 [Rx] Hydrocortisone [Cortef] 10 mg PO TID 30 Days #90 tablet 01/01/19 [Rx] Oxycodone HCl [Roxybond] 10 mg PO Q8H PRN 5 Days #10 tablet.orl 01/01/19 [Rx] Allergy/AdvReac Type Severity Reaction Status Date / Time IVP DYE Allergy Severe Anaphylaxis Uncoded 11/30/18 22:26 All Systems PM: A 10-system review of systems was performed and is negative for pertinent findings except as documented above in the HPI. - Constitutional Vitals: Temp Pulse Resp BP Pulse Ox 98.4 F 78 17 130/84 94 12/29/18 11:34 12/29/18 11:34 12/29/18 11:34 12/29/18 11:34 12/29/18 11:34 Exam: General: Alert and oriented x3 Cardiovascular: irregularly irregular, normal S1 & S2, no rubs, murmurs or gallops. Lungs: CTA b/l, no wheezes or crackles. Abdomen: Obese, soft, non-tender, no rigidity. Extremities: 2+ edema in the lower ext b/l. Neurological: No focal neurological abnormality. Internal Med - H&P Results - Labs CBC & Chem 7: 12/30/18 09:09 12/31/18 02:38 Labs: Short CBC 12/29/18 Range/Units 08:29 WBC 7.1 (4.3-11.1) K/mcL Hgb 12.0 L (12.9-16.9) g/dL Hct 38.2 (37.5-50.1) % Plt Count 264 (140-400) K/mcL Neutrophils # 5.0 (1.6-8.9) K/mcL BMP 12/29/18 08:29 Sodium 139 Potassium 3.4 L Chloride 97 L Carbon Dioxide 32 H BUN 12 Creatinine 1.16 Glucose 124 H Calcium 8.8 Liver Function 12/29/18 Range/Units 08:29 Total Bilirubin 0.3 (0.3-1.0) mg/dL AST 14 (13-39) Units/L ALT 31 (7-52) Units/L Alkaline Phosphatase 98 (34-104) Units/L Albumin 3.5 (3.5-5.7) g/dL - Impressions ITS Impressions Chest X-Ray 12/29/18 08:12 IMPRESSION: Stable congestive changes with no acute abnormality. D/ / Hunter Sanchez MD / Hunter Sanchez MD Interpreting Provider: Hunter Sanchez MD - Assessment and Plan (1) CHF exacerbation Status: Resolved Assessment and plan: Shortness of breath associated with progressive worsening of lower extremity edema and increased weight most likely secondary to CHF exacerbation R/O ischemia Noncompliance PLAN: - CPP x 1 more, 8 hr after the 1st one - EKG in AM - ASA - O2 to keep SpO2 > 92% - Lasix 40 mg IV BID - Aerosols UD q 4 hr - UA - 2D Echo - CBCD, BMP in AM - Fasting lipids Qualifiers: Heart failure type: unspecified Qualified Code(s): I50.9 - Heart failure, unspecified (2) Hypertension Status: Chronic Assessment and plan: we'll continue home medication with holding parameters and continue to monitor blood pressure and inpatient and adjust management accordingly Qualifiers: Hypertension type: essential hypertension Qualified Code(s): I10 - Essential (primary) hypertension (3) Depression with anxiety Status: Chronic Assessment and plan: Patient is on duloxetine 60 mg by mouth daily. (4) Paroxysmal a-fib Status: Chronic (5) Hyperlipidemia Status: Chronic Assessment and plan: we'll continue home statin and obtain fasting lipid profile in a.m. Qualifiers: Hyperlipidemia type: unspecified Qualified Code(s): E78.5 - Hyperlipidemia, unspecified (6) Anemia Status: Chronic Assessment and plan: Stable H&H. We will monitor. Qualifiers: Anemia type: other cause Other causes of anemia: chronic disease, other Qualified Code(s): D63.8 - Anemia in other chronic diseases classified elsewhere (7) Diabetes Status: Chronic Assessment and plan: We will start insulin sliding scale with moderate coverage. Qualifiers: Diabetes mellitus type: type 2 Diabetes mellitus remote computer terminal operator insulin use: with senior living use Diabetes mellitus complication status: with kidney complications Diabetes mellitus complication detail: with chronic kidney disease Chronic kidney disease stage: stage 2 (mild) Qualified Code(s): E11.22 - Type 2 diabetes mellitus with diabetic chronic kidney disease; N18.2 - Chronic kidney disease, stage 2 (mild); Z79.4 - shelter (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 of insulin (8) History of CVA (cerebrovascular accident) Status: Chronic Assessment and plan: Patient is on aspirin 81 mg by mouth daily. (9) Atrial fibrillation Status: Chronic Qualifiers: Atrial fibrillation type: paroxysmal Qualified Code(s): I48.0 - Paroxysmal atrial fibrillation (10) CAD (coronary artery disease) Status: Chronic Assessment and plan: Aspirin 81 mg by mouth daily. Qualifiers: Coronary Disease-Associated Artery/Lesion type: [place] artery [place] vs. transplanted heart: [place] heart Associated angina: without angina Qualified Code(s): I25.10 - Atherosclerotic heart disease of [place] coronary artery without angina pectoris (11) CKD (chronic kidney disease) Status: Chronic Assessment and plan: Kidney function is at baseline. Avoid nephrotoxic medication. Qualifiers: Chronic kidney disease stage: unspecified stage Qualified Code(s): N18.9 - Chronic kidney disease, unspecified (12) COPD (chronic obstructive pulmonary disease) Status: Chronic Assessment and plan: Patient is not on acute exacerbation. Chest is clear to auscultation. Symbicort. Continue bronchodilators every 4 hours when necessary. Qualifiers: COPD type: unspecified COPD Qualified Code(s): J44.9 - Chronic obstructive pulmonary disease, unspecified (13) GERD (gastroesophageal reflux disease) Status: Chronic Qualifiers: Esophagitis presence: esophagitis presence not specified Qualified Code(s): K21.9 - Gastro-esophageal reflux disease without esophagitis (14) Hypothyroidism Status: Chronic Assessment and plan: We will cont. home thyroxin Qualifiers: Hypothyroidism type: unspecified Qualified Code(s): E03.9 - Hypothyroidism, unspecified (15) Pacemaker Status: Chronic (16) Physical deconditioning Status: Chronic Assessment and plan: We will consult PT, OT. (17) Obesity (BMI 30.0-34.9) Status: Chronic (18) DVT prophylaxis Status: Acute - Time Spent With Patient Total time spent is greater than 50% in coordination of care (as documented) at patient's floor/unit and/or counseling patient:
[2018-12-29] MEDS ORDERED: Perflutren Lipid Microsphere 1.3 ML in 0.9 % Sodium Chloride 8.7 ML IVP ONE (13:16)
[2018-12-29] MEDS ORDERED: Sennosides/Docusate Sodium TABLET PO PRN (13:25)
[2018-12-29] MEDS ORDERED: Acetaminophen 325 MG TABLET PO PRN (13:25)
[2018-12-29] MEDS ORDERED: Fluticasone Propionate Nasal 50 MCG/SPRAY BOTTLE NS PRN (13:25)
[2018-12-29] MEDS ORDERED: Capsaicin 0.025% 60 GM TUBE TP PRN (13:25)
[2018-12-29] MEDS ORDERED: *HR* OxyCODONE Immed Rel 5 MG TABLET PO PRN (13:25)
[2018-12-29] MEDS: Insulin LISPRO 300 UNITS/3 ML VIAL SQ SCH ×3 (13:52→19:56)
[2018-12-29] MEDS: Hydrocortisone 10 MG TABLET PO SCH ×2 (14:26→19:45)
[2018-12-29] MEDS: Albuterol Neb 0.63 MG/3 ML VIAL IH SCH ×2 (15:20→22:09)
[2018-12-29] MEDS: LUBIPROSTONE PO SCH (16:30)
[2018-12-29] MEDS: Artificial Tears SOLN 15 ML BOTTLE BOTH EYES SCH (16:30)
[2018-12-29] MEDS: traZODone 50 MG TABLET PO SCH (19:44)
[2018-12-29] MEDS: Melatonin 3 MG TABLET PO SCH (19:45)
[2018-12-29] MEDS: Gabapentin 400 MG CAPSULE PO SCH (19:45)
[2018-12-29] MEDS: Budesonide/Formoterol 80/4.5 MDI IH SCH (22:08)
[2018-12-30] MEDS: Artificial Tears SOLN 15 ML BOTTLE BOTH EYES SCH ×4 (05:36→22:54)
[2018-12-30] MEDS: Budesonide/Formoterol 80/4.5 MDI IH SCH ×2 (07:23→22:48)
[2018-12-30] MEDS: Albuterol Neb 0.63 MG/3 ML VIAL IH SCH ×3 (07:23→22:51)
[2018-12-30 08:36] LABS: Estimated Average Glucose 148 mg/dl
[2018-12-30] MEDS ORDERED: Tiotropium Br/Olodaterol Hcl [Stiolto Respimat Inhaler] IH SCH (09:00)
[2018-12-30 09:30] LABS: Basophils % 0.3 %; Eosinophils # 0.3 K/mcL (0.0-0.6); Eosinophils % 4.6 %; Hematocrit 40.3 % (37.5-50.1); Hemoglobin 12.4 g/dL (12.9-16.9); Lymphocytes # 1.1 K/mcL (0.6-4.6); Lymphocytes % 17.6 %; Mean Corpuscular HGB Conc 30.8 g/dL (31.6-35.5); Mean Corpuscular Hemoglobin 26.8 pg (28.0-33.3); Mean Platelet Volume 9.5 fL (9.4-12.4); Monocytes # 0.7 K/mcL (0.0-1.3); Monocytes % 11.5 %; Neutrophils # 4.1 K/mcL (1.6-8.9); Platelet Count 272 K/mcL (140-400); Red Blood Count 4.63 M/mcL (4.19-5.50); Red Cell Distribution Width 16.1 % (11.5-14.5); White Blood Count 6.3 K/mcL (4.3-11.1)
[2018-12-30 09:51] LABS: Alanine Aminotransferase 27 Units/L (7-52); Albumin 3.5 g/dL (3.5-5.7); Albumin/Globulin Ratio 1.3 (1.1-2.2); Alkaline Phosphatase 100 Units/L (34-104); Aspartate Amino Transferase 15 Units/L (13-39); BUN/Creatinine Ratio 14 (6-26); Bilirubin,Total 0.4 mg/dL (0.3-1.0); Blood Urea Nitrogen 15 mg/dL (8-23); Calcium 8.8 mg/dL (8.6-10.3); Carbon Dioxide 32 mEq/L (23-29); Chloride 96 mEq/L (98-107); Globulin 2.7 g/dL (2.4-3.5); Glucose 187 mg/dL (70-105); Magnesium 1.8 mg/dL (1.6-2.6); Osmolality,Calculated 294 (280-300); Phosphorous 3.6 mg/dL (2.7-4.5); Potassium 3.1 mEq/L (3.5-5.1); Sodium 139 mEq/L (136-145); Total Protein 6.2 g/dL (6.4-8.9); eGFR For African Americans > 60 (> 60); eGFR For Non-African Americans > 60 (> 60)
[2018-12-30] MEDS: Insulin LISPRO 300 UNITS/3 ML VIAL SQ SCH ×4 (10:32→21:16)
[2018-12-30] MEDS: Gabapentin 400 MG CAPSULE PO SCH ×2 (10:41→22:53)
[2018-12-30] MEDS: Cholecalciferol (D-3) 1,000 UNIT TABLET PO SCH (10:41)
[2018-12-30] MEDS: Aspirin 81 MG TAB.CHEW PO SCH (10:41)
[2018-12-30] MEDS: Finasteride 5 MG TABLET PO SCH (10:41)
[2018-12-30] MEDS: Hydrocortisone 10 MG TABLET PO SCH ×3 (10:41→22:53)
[2018-12-30] MEDS: Metoprolol XL (24 HR) Succ 25 MG TAB.ER.24H PO SCH (10:41)
[2018-12-30] MEDS: *HR* Rivaroxaban 15 MG TABLET PO SCH (10:42)
[2018-12-30] MEDS: LUBIPROSTONE PO SCH ×2 (10:42→17:01)
[2018-12-30] MEDS: *HR* Amiodarone 200 MG TABLET PO SCH (10:42)
[2018-12-30] MEDS: Furosemide 40 MG/4 ML VIAL IVP SCH ×2 (10:43→22:52)
[2018-12-30 11:52] LABS: Bilirubin,Urine Negative (Negative); Blood,Urine Negative (Negative); Clarity,Urine Clear (Clear); Color,Urine Yellow (Yellow); Glucose,Urine (UA) Normal (Normal); Ketones,Urine Negative (Negative); Leukocyte Esterase,Urine Negative (Negative); Nitrite,Urine Negative (Negative); PH,Urine 7.5 pH Units (5.0-8.0); Protein,Urine Negative (Neg-Trace); Specific Gravity,Urine 1.012 (1.010-1.025); Urobilinogen,Urine Normal (Normal)
--- NOTE | 2018-12-30 12:13 | Internal Med Progress Note ---
Hospitalist Progress Note - Encounter Date of Encounter: 12/30/18 Time of Encounter: 12:08 - Subjective Interval History: I have seen and evaluated the patient at bedside. patient reports he fell and was hospitalized at [place] and was discharged to rehab from where he is coming from this time, stated that at the rehabilitation fascility he was not getting his dose of furosemide and he was only getting metolazone. denies abdominal pain, nausea, vomiting or chest pain. - Exam Vitals: Temp Pulse Resp BP Pulse Ox 98.2 F 81 16 124/85 92 12/30/18 11:57 12/30/18 11:57 12/30/18 11:57 12/30/18 11:57 12/30/18 11:57 Exam: vitals: Reviewed General: Alert and oriented x4. In no distress Cardiovascular: irregularly irregular, normal S1 & S2, no rubs, murmurs or ga llops. Lungs: CTA b/l, no wheezes or crackles. Abdomen: Obese, soft, non-tender, no rigidity. Extremities: 2+ edema in the lower ext b/l. Neurological: Normal cognition and motor skills. Pulses:Carotid and radial pulses normal +2. Rest of the physical exam is non contributory - Assessment and Plan (1) Physical deconditioning Current Visit: No Status: Chronic Assessment and Plan: Daily PT/OT. (2) Hypertension Current Visit: No Status: Chronic Assessment and Plan: Blood pressure is well controlled on furosemide and metoprolol. (3) Depression with anxiety Current Visit: No Status: Chronic Assessment and Plan: Continue duloxetine 60 mg by mouth daily. And trazodone 200 mg by mouth at bedtime. (4) CHF exacerbation Current Visit: No Status: Acute Assessment and Plan: Patient reports being off his diuretics for about 2 weeks. Plan: continue IV diruresis with furosemide 40mg/IV BID strict intake and output water restriction to 1.5 litters a day. daily weight 2 gram sodium diet Continue low dose beta-brisa (5) Atrial fibrillation Current Visit: No Status: Chronic Assessment and Plan: Rate controlled on metoprolol 12.5 mg by mouth daily. An amiodarone 200 mg by mouth daily. Ribaroxaban for secondary stroke prevention (6) COPD (chronic obstructive pulmonary disease) Current Visit: No Status: Chronic Assessment and Plan: Patient is not on acute exacerbation. No wheezing auscultation. Continue bronchodilators every 6 hours when necessary. Incentive spirometry. Symbicort. (7) CKD (chronic kidney disease) Current Visit: No Status: Chronic Assessment and Plan: Avoid nephrotoxic medication. (8) Anemia Current Visit: No Status: Chronic Assessment and Plan: We will monitor H&H. And transfuse per protocol. (9) CAD (coronary artery disease) Current Visit: No Status: Chronic Assessment and Plan: Continue aspirin 81 mg by mouth daily. (10) Diabetes Current Visit: No Status: Chronic Assessment and Plan: Blood sugars suboptimally controlled on lispro low-dose sliding scale before meals. Levemir 5 unit at bedtime added. (11) Hyperlipidemia Current Visit: No Status: Chronic Assessment and Plan: On atorvastatin 40 mg by mouth at bedtime. (12) History of CVA (cerebrovascular accident) Current Visit: No Status: Chronic Assessment and Plan: Patient is on aspirin. (13) Obesity (BMI 30.0-34.9) Current Visit: No Status: Chronic (14) Adrenal insufficiency Current Visit: No Status: Chronic Assessment and Plan: Continue hydrocortisone 10 mg by mouth 3 times a day. And fludrocortisone 0.1 mg by mouth daily. (15) Hypokalemia Current Visit: Yes Status: Acute Assessment and Plan: Electrolyte replaced. DVT Prophylaxis: Intermittent pneumatic compression. - Summary of Assessment and Plan Summary of Assessment and Plan: Patient to remain in the hospital due to acute HFpEF exacerbation - Time Spent with Patient Total time spent is greater than 50% in coordination of care (as documented) at patient's floor/unit and/or counseling patient: Greater than 35 minutes (40) Plan of Care Discussed with: patient (and the nurse) Internal Medicine: Result - Labs CBC & Chem 7: 12/30/18 09:09 12/30/18 09:09 Labs: Short CBC 12/30/18 Range/Units 09:09 WBC 6.3 (4.3-11.1) K/mcL Hgb 12.4 L (12.9-16.9) g/dL Hct 40.3 (37.5-50.1) % Plt Count 272 (140-400) K/mcL Neutrophils # 4.1 (1.6-8.9) K/mcL BMP 12/30/18 09:09 Sodium 139 Potassium 3.1 L Chloride 96 L Carbon Dioxide 32 H BUN 15 Creatinine 1.08 Glucose 187 H Calcium 8.8 Liver Function 12/30/18 Range/Units 09:09 Total Bilirubin 0.4 (0.3-1.0) mg/dL AST 15 (13-39) Units/L ALT 27 (7-52) Units/L Alkaline Phosphatase 100 (34-104) Units/L Albumin 3.5 (3.5-5.7) g/dL Urine 12/29/18 Range/Units 11:42 Urine Color Yellow (Yellow) Urine Clarity Clear (Clear) Urine pH 7.5 (5.0-8.0) pH Units Ur Specific [place] 1.012 (1.010-1.025) Urine Protein Negative (Neg-Trace) mg/dL Urine Glucose (UA) Normal (Normal) mg/dL - ABG Interpretation ABG results: PT/INR, D-dimer PT 19.4 Seconds (9.4-12.1) H 12/29/18 08:29 - Impressions Impressions Echocardiogram 12/29/18 08:09 Impressions: LVEF 65%. Mild concentric left ventricular hypertrophy. Definity echo contrast was used. A device lead was visualized in the right atrium and right ventricle. Left Ventricular Wall Motion: Rest Echo Findings All wall segments showed normal motion. Findings: Study Quality * Technically sub-optimal due to poor echocardiographic windows. ECG Findings * Sinus rhythm with BBB. Left Ventricle * LVEF 65%. * Mild concentric left ventricular hypertrophy. * Definity echo contrast was used. Device lead * A device lead was visualized in the right atrium and right ventricle. Consult Discharge Plan - Plan [facility]errals: [facility] [Primary Care Provider] - (2) Hypertension Qualifiers: Hypertension type: essential hypertension Qualified Code(s): I10 - Essential (primary) hypertension (4) CHF exacerbation Qualifiers: Heart failure type: diastolic Qualified Code(s): I50.33 - Acute on chronic diastolic (congestive) heart failure (5) Atrial fibrillation Qualifiers: Atrial fibrillation type: paroxysmal Qualified Code(s): I48.0 - Paroxysmal atrial fibrillation (6) COPD (chronic obstructive pulmonary disease) Qualifiers: COPD type: unspecified COPD Qualified Code(s): J44.9 - Chronic obstructive pulmonary disease, unspecified (7) CKD (chronic kidney disease) Qualifiers: Chronic kidney disease stage: unspecified stage Qualified Code(s): N18.9 - Chronic kidney disease, unspecified (8) Anemia Qualifiers: Anemia type: other cause Other causes of anemia: chronic disease, other Qualified Code(s): D63.8 - Anemia in other chronic diseases classified elsewhere (9) CAD (coronary artery disease) Qualifiers: Coronary Disease-Associated Artery/Lesion type: [place] artery [place] vs. transplanted heart: [place] heart Associated angina: without angina Qualified Code(s): I25.10 - Atherosclerotic heart disease of [place] coronary artery without angina pectoris (10) Diabetes Qualifiers: Diabetes mellitus type: type 2 Diabetes mellitus snf insulin use: with snf use Diabetes mellitus complication status: with kidney complications Diabetes mellitus complication detail: with chronic kidney disease Chronic kidney disease stage: stage 2 (mild) Qualified Code(s): E11.22 - Type 2 diabetes mellitus with diabetic chronic kidney disease; N18.2 - Chronic kidney disease, stage 2 (mild); 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
[2018-12-30] MEDS: Melatonin 3 MG TABLET PO SCH (22:52)
[2018-12-30] MEDS: Insulin DETEMIR 100 UNIT/ML X5UNITS SQ SCH (22:53)
[2018-12-30] MEDS: traZODone 50 MG TABLET PO SCH (22:53)
[2018-12-31 03:26] LABS: BUN/Creatinine Ratio 18 (6-26); Blood Urea Nitrogen 19 mg/dL (8-23); Calcium 9.2 mg/dL (8.6-10.3); Carbon Dioxide 34 mEq/L (23-29); Chloride 98 mEq/L (98-107); Glucose 126 mg/dL (70-105); Magnesium 1.9 mg/dL (1.6-2.6); Osmolality,Calculated 292 (280-300); Phosphorous 4.5 mg/dL (2.7-4.5); Potassium 3.9 mEq/L (3.5-5.1); Sodium 139 mEq/L (136-145); eGFR For African Americans > 60 (> 60); eGFR For Non-African Americans > 60 (> 60)
[2018-12-31] MEDS: LUBIPROSTONE PO SCH (07:28)
[2018-12-31] MEDS: Insulin LISPRO 300 UNITS/3 ML VIAL SQ SCH ×4 (07:28→21:04)
[2018-12-31] MEDS: Gabapentin 400 MG CAPSULE PO SCH ×2 (07:30→22:58)
[2018-12-31] MEDS: Metoprolol XL (24 HR) Succ 25 MG TAB.ER.24H PO SCH (07:30)
[2018-12-31] MEDS: Cholecalciferol (D-3) 1,000 UNIT TABLET PO SCH (07:30)
[2018-12-31] MEDS: Aspirin 81 MG TAB.CHEW PO SCH (07:30)
[2018-12-31] MEDS: Finasteride 5 MG TABLET PO SCH (07:30)
[2018-12-31] MEDS: *HR* Amiodarone 200 MG TABLET PO SCH (07:30)
[2018-12-31] MEDS: Hydrocortisone 10 MG TABLET PO SCH ×3 (07:30→22:58)
[2018-12-31] MEDS: *HR* Rivaroxaban 15 MG TABLET PO SCH (07:30)
[2018-12-31] MEDS: Furosemide 40 MG/4 ML VIAL IVP SCH ×2 (07:31→15:59)
[2018-12-31] MEDS: Budesonide/Formoterol 80/4.5 MDI IH SCH ×2 (07:39→19:48)
[2018-12-31] MEDS: Albuterol Neb 0.63 MG/3 ML VIAL IH SCH (07:39)
[2018-12-31] MEDS ORDERED: Acetaminophen 325 MG TABLET PO PRN (07:59)
[2018-12-31] MEDS ORDERED: *HR* OxyCODONE Immed Rel 5 MG TABLET PO PRN (07:59)
[2018-12-31] MEDS ORDERED: Albuterol 2.5 MG/3 ML NEBULIZER IH PRN (09:53)
--- NOTE | 2018-12-31 10:21 | Internal Med Progress Note ---
Hospitalist Progress Note - Encounter Date of Encounter: 12/31/18 Time of Encounter: 10:20 - Subjective Interval History: I have seen and evaluated the patient bedside. Patient reports improvement in the heaviness/edema that he has his lower extremity. Denies chest pain, shortness of breath, nausea, or vomiting. - Exam Vitals: Temp Pulse Resp BP Pulse Ox 97.7 F 73 16 112/71 95 12/31/18 07:03 12/31/18 07:03 12/31/18 07:40 12/31/18 07:03 12/31/18 07:40 Exam: vitals: Reviewed General: Alert and oriented x4. In no distress Cardiovascular: irregularly irregular, normal S1 & S2, no rubs, murmurs or gallops. Lungs: CTA b/l, no wheezes or crackles. Abdomen: Obese, soft, non-tender, no rigidity. NABS in all 4 quadrant. Extremities: 2+ edema in the lower ext b/l. Neurological: No focal neurological abnormality. Rest of the physical exam is non contributory - Assessment and Plan (1) CHF exacerbation Current Visit: No Status: Acute Assessment and Plan: Significant improvement in the edema of the lower extremity. Total negative fluid balance of 3.7 liters. Continue fluid restrictive strategies to 1.5 L a day. Furosemide 40 mg IV twice a day. (2) Hypertension Current Visit: No Status: Chronic Assessment and Plan: Blood pressures well controlled on metoprolol and furosemide. (3) Depression with anxiety Current Visit: No Status: Chronic Assessment and Plan: Patient is on duloxetine 60 mg by mouth daily. (4) Atrial fibrillation Current Visit: No Status: Chronic Assessment and Plan: Rate controlled on metoprolol 12.5 mg by mouth daily and amiodarone. On rivaroxaban for secondary stroke prevention (5) COPD (chronic obstructive pulmonary disease) Current Visit: No Status: Chronic Assessment and Plan: Patient is not on acute exacerbation. Chest is clear to auscultation. Symbicort. Continue bronchodilators every 4 hours when necessary. (6) CKD (chronic kidney disease) Current Visit: No Status: Chronic Assessment and Plan: Kidney function is at baseline. Avoid nephrotoxic medication. (7) Anemia Current Visit: No Status: Chronic Assessment and Plan: Stable H&H. We will monitor. (8) CAD (coronary artery disease) Current Visit: No Status: Chronic Assessment and Plan: Aspirin 81 mg by mouth daily. (9) Diabetes Current Visit: No Status: Chronic Assessment and Plan: Blood sugar is well controlled on short and long-acting insulin coverage. Continue current management. (10) Hyperlipidemia Current Visit: No Status: Chronic Assessment and Plan: Continue atorvastatin 40 mg by mouth daily. (11) History of CVA (cerebrovascular accident) Current Visit: No Status: Chronic Assessment and Plan: Patient is on aspirin 81 mg by mouth daily. (12) Adrenal insufficiency Current Visit: No Status: Chronic Assessment and Plan: Patient is on hydrocortisone 10 mg by mouth 3 times a day. And fludrocortisone 0.1 mg by mouth daily. Blood pressure stable. (13) Physical deconditioning Current Visit: No Status: Chronic (14) Obesity (BMI 30.0-34.9) Current Visit: No Status: Chronic DVT Prophylaxis: intermittent pneumatic compression. - Summary of Assessment and Plan Summary of Assessment and Plan: Patient to remain in the hospital on IV diuretics. Potential discharge to [facility]. - Time Spent with Patient Total time spent is greater than 50% in coordination of care (as documented) at patient's floor/unit and/or counseling patient: Greater than 35 minutes (40) Plan of Care Discussed with: patient (and the nurse) Internal Medicine: Result - Labs CBC & Chem 7: 12/30/18 09:09 12/31/18 02:38 Labs: BMP 12/31/18 02:38 Sodium 139 Potassium 3.9 D Chloride 98 Carbon Dioxide 34 H BUN 19 Creatinine 1.03 Glucose 126 H Calcium 9.2 Urine 12/29/18 Range/Units 11:42 Urine Color Yellow (Yellow) Urine Clarity Clear (Clear) Urine pH 7.5 (5.0-8.0) pH Units Ur Specific [place] 1.012 (1.010-1.025) Urine Protein Negative (Neg-Trace) mg/dL Urine Glucose (UA) Normal (Normal) mg/dL - ABG Interpretation ABG results: PT/INR, D-dimer PT 19.4 Seconds (9.4-12.1) H 12/29/18 08:29 Consult Discharge Plan - Plan [facility]errals: [facility] [Primary Care Provider] - (1) CHF exacerbation Qualifiers: Heart failure type: diastolic Qualified Code(s): I50.33 - Acute on chronic diastolic (congestive) heart failure (2) Hypertension Qualifiers: Hypertension type: essential hypertension Qualified Code(s): I10 - Essential (primary) hypertension (4) Atrial fibrillation Qualifiers: Atrial fibrillation type: paroxysmal Qualified Code(s): I48.0 - Paroxysmal atrial fibrillation (5) COPD (chronic obstructive pulmonary disease) Qualifiers: COPD type: unspecified COPD Qualified Code(s): J44.9 - Chronic obstructive pulmonary disease, unspecified (6) CKD (chronic kidney disease) Qualifiers: Chronic kidney disease stage: unspecified stage Qualified Code(s): N18.9 - Chronic kidney disease, unspecified (7) Anemia Qualifiers: Anemia type: other cause Other causes of anemia: chronic disease, other Qualified Code(s): D63.8 - Anemia in other chronic diseases classified elsewhere (8) CAD (coronary artery disease) Qualifiers: Coronary Disease-Associated Artery/Lesion type: [place] artery [place] vs. transplanted heart: [place] heart Associated angina: without angina Qualified Code(s): I25.10 - Atherosclerotic heart disease of [place] coronary artery without angina pectoris (9) Diabetes Qualifiers: Diabetes mellitus type: type 2 Diabetes mellitus termite control servicer insulin use: with termite control servicer use Diabetes mellitus complication status: with kidney complications Diabetes mellitus complication detail: with chronic kidney disease Chronic kidney disease stage: stage 2 (mild) Qualified Code(s): E11.22 - Type 2 diabetes mellitus with diabetic chronic kidney disease; N18.2 - Chronic kidney disease, stage 2 (mild); Z79.4 - terminal operator (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 of insulin (10) Hyperlipidemia Qualifiers: Hyperlipidemia type: unspecified Qualified Code(s): E78.5 - Hyperlipidemia, unspecified
[2018-12-31] MEDS: Artificial Tears SOLN 15 ML BOTTLE BOTH EYES SCH ×3 (10:56→22:57)
[2018-12-31] MEDS ORDERED: Simethicone 80 MG TAB.CHEW PO PRN (14:11)
[2018-12-31] MEDS ORDERED: Saline Nasal Spray 44 ML BOTTLE NS PRN (14:11)
[2018-12-31] MEDS ORDERED: tiZANidine 4 MG TABLET PO PRN (14:11)
[2018-12-31] MEDS: Melatonin 3 MG TABLET PO SCH (22:57)
[2018-12-31] MEDS: traZODone 50 MG TABLET PO SCH (22:57)
[2018-12-31] MEDS: Insulin DETEMIR 100 UNIT/ML X5UNITS SQ SCH (22:58)
[2019-01-01] MEDS: Gabapentin 400 MG CAPSULE PO SCH (07:44)
[2019-01-01] MEDS: Cholecalciferol (D-3) 1,000 UNIT TABLET PO SCH (07:45)
[2019-01-01] MEDS: *HR* Amiodarone 200 MG TABLET PO SCH (07:45)
[2019-01-01] MEDS: Furosemide 40 MG/4 ML VIAL IVP SCH (07:45)
[2019-01-01] MEDS: Aspirin 81 MG TAB.CHEW PO SCH (07:45)
[2019-01-01] MEDS: Metoprolol XL (24 HR) Succ 25 MG TAB.ER.24H PO SCH (07:45)
[2019-01-01] MEDS: Finasteride 5 MG TABLET PO SCH (07:45)
[2019-01-01] MEDS: Hydrocortisone 10 MG TABLET PO SCH ×2 (07:45→15:35)
[2019-01-01] MEDS: Insulin LISPRO 300 UNITS/3 ML VIAL SQ SCH ×2 (07:46→11:59)
[2019-01-01] MEDS ORDERED: Lactobacillus 1 EACH CAP.SPRINK PO SCH (09:00)
[2019-01-01] MEDS: Artificial Tears SOLN 15 ML BOTTLE BOTH EYES SCH ×2 (10:05→15:35)
[2019-01-01] MEDS: Budesonide/Formoterol 80/4.5 MDI IH SCH (10:18)
--- NOTE | 2019-01-01 10:41 | Discharge Summary ---
Date of Encounter: 01/01/19 Time of Encounter: 10:40 - Discharge Diagnosis (1) CHF exacerbation Priority: Primary Status: Resolved Qualifiers: Heart failure type: diastolic Qualified Code(s): I50.33 - Acute on chronic diastolic (congestive) heart failure (2) Hypertension Priority: Secondary Status: Chronic Qualifiers: Hypertension type: essential hypertension Qualified Code(s): I10 - Essential (primary) hypertension (3) Depression with anxiety Priority: Secondary Status: Chronic (4) Atrial fibrillation Priority: Secondary Status: Chronic Qualifiers: Atrial fibrillation type: paroxysmal Qualified Code(s): I48.0 - Paroxysmal atrial fibrillation (5) COPD (chronic obstructive pulmonary disease) Priority: Secondary Status: Chronic Qualifiers: COPD type: unspecified COPD Qualified Code(s): J44.9 - Chronic obstructive pulmonary disease, unspecified (6) CKD (chronic kidney disease) Priority: Secondary Status: Chronic Qualifiers: Chronic kidney disease stage: unspecified stage Qualified Code(s): N18.9 - Chronic kidney disease, unspecified (7) Anemia Priority: Secondary Status: Chronic Qualifiers: Anemia type: other cause Other causes of anemia: chronic disease, other Qualified Code(s): D63.8 - Anemia in other chronic diseases classified elsewhere (8) CAD (coronary artery disease) Priority: Secondary Status: Chronic Qualifiers: Coronary Disease-Associated Artery/Lesion type: [place] artery [place] vs. transplanted heart: [place] heart Associated angina: without angina Qualified Code(s): I25.10 - Atherosclerotic heart disease of [place] coronary artery without angina pectoris (9) Diabetes Priority: Secondary Status: Chronic Qualifiers: Diabetes mellitus type: type 2 Diabetes mellitus salvage determiner insulin use: with salvage determiner use Diabetes mellitus complication status: with kidney complications Diabetes mellitus complication detail: with chronic kidney disease Chronic kidney disease stage: stage 2 (mild) Qualified Code(s): E11.22 - Type 2 diabetes mellitus with diabetic chronic kidney disease; N18.2 - Chronic kidney disease, stage 2 (mild); 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 Issa is a 68 year old male medical history of arthritis, atrial fibrillation, CHF, COPD, CVA, diabetes, GERD, hyperlipidemia, hypertension, pulmonary embolus, renal disease, presented with progressive worsening of SUZE. Patient admitted to the hospital due to CHF exacerbation. Patient reported not taking his furosemide while he was in rehabilitation, and only taking metolazone. Patient was managed with IV diuretics with a total negative balance of 3.5 L, with resolution of patient acute symptoms. Patient is hemodynamically stable to be discharged to [facility]. Weight on presentation 141.5 kg and on discharge of 133.9 kg. - Time Spent with Patient Total time spent providing and/or coordinating discharge services: Time spent: Greater than 30 minutes (35) - Discharge Medications Prescriptions: New Hydrocortisone [Cortef] 10 mg PO TID 30 Days #90 tablet Fludrocortisone Acetate [Florinef] 0.1 mg PO DAILY 30 Days #30 tablet Continued Tamsulosin HCl [Flomax] 0.4 mg PO BID Amiodarone [Cordarone] 200 mg PO QAM Aspirin 81 mg PO QAM Finasteride [Proscar] 5 mg PO DAILY Insulin ASPART [NovoLOG] 0 unit SQ ACHS MDD PER SLIDING SCALE Gabapentin [Neurontin] 400 mg PO BID Fluticasone/Salmeterol [Advair 250-50 Diskus] 1 puff IH BID Acetaminophen [Tylenol] 650 mg PO Q6HR PRN PRN Reason: PAIN/FEVER Carboxymethylcellulose Sodium [Refresh Liquigel] 1 drop BOTH EYES TID Saline Nasal [place] [[place] Nasal [place]] 2 spray NS Q2H PRN PRN Reason: "NASAL PASSAGE CLEARING" Simethicone [Gas-X] 80 mg PO TID PRN PRN Reason: GAS Capsaicin [High Potency Capsaicin] 1 appl TP QID PRN PRN Reason: Pain Polyethylene Glycol 3350 [Natura-Lax] 17 gm PO DAILY PRN PRN Reason: Constipation Trazodone HCl 200 mg PO HS Docusate [Colace] 100 mg PO Q8H PRN PRN Reason: Constipation Rivaroxaban [Xarelto] 15 mg PO 2000 Tizanidine HCl 2 mg PO BID PRN PRN Reason: MUSCLE SPASM Atorvastatin [Lipitor] 40 mg PO QPM Cholecalciferol (D-3) [Vitamin D] 2,000 unit PO DAILY Sennosides/Docusate Sodium [Docusate Sodium-Sennosides Tab] 1 tab PO QAM DULoxetine [Cymbalta] 60 mg PO DAILY Furosemide [Lasix] 40 mg PO DAILY L. Acidophilus/Pectin, Joice [Acidophilus Capsule] 1 cap PO BID Albuterol Sulfate [Proair Hfa] 2 puff IH Q4H PRN PRN Reason: Shortness Of Breath Omeprazole [PriLOSEC] 20 mg PO QAM metOLazone [Zaroxolyn] 5 mg PO DAILY PRN PRN Reason: Edema Tiotropium [Spiriva] 1 puff IH DAILY Oxycodone HCl [Roxybond] 10 mg PO Q8H PRN 5 Days #10 tablet.orl PRN Reason: Pain Discontinued Cephalexin [Keflex] 500 mg PO TID Home Medications: Amiodarone [Cordarone] 200 mg PO QAM 04/04/18 [History] Aspirin 81 mg PO QAM 04/04/18 [History] Finasteride [Proscar] 5 mg PO DAILY 04/04/18 [History] Tamsulosin HCl [Flomax] 0.4 mg PO BID 04/04/18 [History] Insulin ASPART [NovoLOG] 0 unit SQ ACHS MDD PER SLIDING SCALE 04/25/18 [History] Fluticasone/Salmeterol [Advair 250-50 Diskus] 1 puff IH BID 06/30/18 [History] Gabapentin [Neurontin] 400 mg PO BID 06/30/18 [History] Acetaminophen [Tylenol] 650 mg PO Q6HR PRN 07/26/18 [History] Capsaicin [High Potency Capsaicin] 1 appl TP QID PRN 08/27/18 [History] Carboxymethylcellulose Sodium [Refresh Liquigel] 1 drop BOTH EYES TID 08/27/18 [History] Polyethylene Glycol 3350 [Natura-Lax] 17 gm PO DAILY PRN 08/27/18 [History] Saline Nasal [place] [[place] Nasal [place]] 2 spray NS Q2H PRN 08/27/18 [History] Simethicone [Gas-X] 80 mg PO TID PRN 08/27/18 [History] Trazodone HCl 200 mg PO HS 08/27/18 [History] Docusate [Colace] 100 mg PO Q8H PRN 09/17/18 [History] Rivaroxaban [Xarelto] 15 mg PO 2000 09/17/18 [History] Tizanidine HCl 2 mg PO BID PRN 09/17/18 [History] Atorvastatin [Lipitor] 40 mg PO QPM 11/18/18 [History] Cholecalciferol (D-3) [Vitamin D] 2,000 unit PO DAILY 11/18/18 [History] Sennosides/Docusate Sodium [Docusate Sodium-Sennosides Tab] 1 tab PO QAM 11/18/18 [History] DULoxetine [Cymbalta] 60 mg PO DAILY 11/30/18 [History] Albuterol Sulfate [Proair Hfa] 2 puff IH Q4H PRN 12/30/18 [History] Furosemide [Lasix] 40 mg PO DAILY 12/30/18 [History] L. Acidophilus/Pectin, Joice [Acidophilus Capsule] 1 cap PO BID 12/30/18 [History] Omeprazole [PriLOSEC] 20 mg PO QAM 12/30/18 [History] Tiotropium [Spiriva] 1 puff IH DAILY 12/30/18 [History] metOLazone [Zaroxolyn] 5 mg PO DAILY PRN 12/30/18 [History] Fludrocortisone Acetate [Florinef] 0.1 mg PO DAILY 30 Days #30 tablet 01/01/19 [Rx] Hydrocortisone [Cortef] 10 mg PO TID 30 Days #90 tablet 01/01/19 [Rx] Oxycodone HCl [Roxybond] 10 mg PO Q8H PRN 5 Days #10 tablet.orl 01/01/19 [Rx] Allergies/Adverse Reactions: Allergy/AdvReac Type Severity Reaction Status Date / Time IVP DYE Allergy Severe Anaphylaxis Uncoded 11/30/18 22:26 Date of admission: 12/29/18 06:28 [facility]: [facility] Consults: 12/29/18 07:01 Consult to Clinical Case Manager [CONS] Routine Reason for Consult: Pt came from rehab facility ([facility]), will need to return upon discharge. 12/29/18 08:18 Consult to Cardiac Rehabilitation-Phase1 [CONS] Routine Comment: Reason for Consult: heart failure Call Completed: Yes Consult to Nurse Navigator [CONS] Routine Comment: - Constitutional Vitals: Temp Pulse Resp BP Pulse Ox 98.6 F 96 16 103/63 65 01/01/19 07:31 01/01/19 07:31 01/01/19 07:31 01/01/19 07:31 01/01/19 07:31 Exam: vitals: Reviewed General: Alert and oriented x4. In no distress Cardiovascular: irregularly irregular, normal S1 & S2, no rubs, murmurs or gallops. Lungs: CTA b/l, no wheezes or crackles. Abdomen: Obese, soft, non-tender, no rigidity. NABS in all 4 quadrant. Extremities: 2+ edema in the lower ext b/l. Neurological: No focal neurological abnormality. Rest of the physical exam is non contributory - Patient Status Disposition: Transfer SNF Condition: Good Functional capacity at discharge: uses cane/walker Overall status at discharge: patient is progressing back to baseline - Discharge Instructions Follow Up With: [facility] [Primary Care Provider] - - Diet and Activity Activity: resume usual activities as tolerated Diet: diabetic diet, low salt diet
--- NOTE | 2019-01-01 10:51 | Physician Discharge Referral ---
ExtendedCare Referral Info Transfer To: [facility] - Diagnosis (1) CHF exacerbation Priority: Primary Status: Resolved (2) Hypertension Priority: Secondary Status: Chronic (3) Depression with anxiety Priority: Secondary Status: Chronic (4) Atrial fibrillation Priority: Secondary Status: Chronic (5) COPD (chronic obstructive pulmonary disease) Priority: Secondary Status: Chronic (6) CKD (chronic kidney disease) Priority: Secondary Status: Chronic (7) Anemia Priority: Secondary Status: Chronic (8) CAD (coronary artery disease) Priority: Secondary Status: Chronic (9) Diabetes Priority: Secondary Status: Chronic (10) Hyperlipidemia Priority: Secondary Status: Chronic (11) History of CVA (cerebrovascular accident) Priority: Secondary Status: Chronic (12) Adrenal insufficiency Priority: Secondary Status: Chronic (13) Physical deconditioning Priority: Secondary Status: Chronic (14) Obesity (BMI 30.0-34.9) Priority: Secondary Status: Chronic Prognosis: Fair Aware of Diagnosis: Patient Aware of Prognosis: Patient - Transfer Medications Prescriptions: Hydrocortisone [Cortef] 10 mg PO TID 30 Days #90 tablet Fludrocortisone Acetate [Florinef] 0.1 mg PO DAILY 30 Days #30 tablet Oxycodone HCl [Roxybond] 10 mg PO Q8H PRN 5 Days #10 tablet.orl PRN Reason: Pain Home Medications: Amiodarone [Cordarone] 200 mg PO QAM 04/04/18 [History] Aspirin 81 mg PO QAM 04/04/18 [History] Finasteride [Proscar] 5 mg PO DAILY 04/04/18 [History] Tamsulosin HCl [Flomax] 0.4 mg PO BID 04/04/18 [History] Insulin ASPART [NovoLOG] 0 unit SQ ACHS MDD PER SLIDING SCALE 04/25/18 [History] Fluticasone/Salmeterol [Advair 250-50 Diskus] 1 puff IH BID 06/30/18 [History] Gabapentin [Neurontin] 400 mg PO BID 06/30/18 [History] Acetaminophen [Tylenol] 650 mg PO Q6HR PRN 07/26/18 [History] Capsaicin [High Potency Capsaicin] 1 appl TP QID PRN 08/27/18 [History] Carboxymethylcellulose Sodium [Refresh Liquigel] 1 drop BOTH EYES TID 08/27/18 [History] Polyethylene Glycol 3350 [Natura-Lax] 17 gm PO DAILY PRN 08/27/18 [History] Saline Nasal [place] [[place] Nasal [place]] 2 spray NS Q2H PRN 08/27/18 [History] Simethicone [Gas-X] 80 mg PO TID PRN 08/27/18 [History] Trazodone HCl 200 mg PO HS 08/27/18 [History] Docusate [Colace] 100 mg PO Q8H PRN 09/17/18 [History] Rivaroxaban [Xarelto] 15 mg PO 2000 09/17/18 [History] Tizanidine HCl 2 mg PO BID PRN 09/17/18 [History] Atorvastatin [Lipitor] 40 mg PO QPM 11/18/18 [History] Cholecalciferol (D-3) [Vitamin D] 2,000 unit PO DAILY 11/18/18 [History] Sennosides/Docusate Sodium [Docusate Sodium-Sennosides Tab] 1 tab PO QAM 11/18/18 [History] DULoxetine [Cymbalta] 60 mg PO DAILY 11/30/18 [History] Albuterol Sulfate [Proair Hfa] 2 puff IH Q4H PRN 12/30/18 [History] Furosemide [Lasix] 40 mg PO DAILY 12/30/18 [History] L. Acidophilus/Pectin, [place] [Acidophilus Capsule] 1 cap PO BID 12/30/18 [ History] Omeprazole [PriLOSEC] 20 mg PO QAM 12/30/18 [History] Tiotropium [Spiriva] 1 puff IH DAILY 12/30/18 [History] metOLazone [Zaroxolyn] 5 mg PO DAILY PRN 12/30/18 [History] Fludrocortisone Acetate [Florinef] 0.1 mg PO DAILY 30 Days #30 tablet 01/01/19 [Rx] Hydrocortisone [Cortef] 10 mg PO TID 30 Days #90 tablet 01/01/19 [Rx] Oxycodone HCl [Roxybond] 10 mg PO Q8H PRN 5 Days #10 tablet.orl 01/01/19 [Rx] Allergies/Adverse Reactions: Allergy/AdvReac Type Severity Reaction Status Date / Time IVP DYE Allergy Severe Anaphylaxis Uncoded 11/30/18 22:26 - Respiratory Orders Oxygen / L per min Smoking Cessation: Smoking cessation has been advised. For more information, call the [place] Tobacco Quit Line at 4-237-ISQY-NOW. - Advance Directives Code Status: Full Code - Mobility Orders Ambulate - Rehabiliation Orders Rehab Potential: Fair Rehab Orders: Evaluation for Physical Therapy, Evaluation for Occupational Therapy - Diet Orders Regular CERTIFICATION: I certify that the transfer of the above named patient to an Extended Care Facility is necessary for the continuing treatment of the diagnosis listed. The above information is true and accurate reflection of patient's current condition. Confidential - Redisclosure prohibited without a patient's written consent.
[2019-01-01 11:15] VITALS: BP 110/71
[2019-01-01] MEDS ORDERED: *HR* Rivaroxaban 15 MG TABLET PO SCH (17:00)
== END 2019-01-01 16:01 ==
LOC: 2ANU → SUATTDRO 06:28
PROVIDERS: ADMIT Pediatrics; ATTEND Internal Medicine

== ENCOUNTER 2019-01-26 19:38 | Inpatient (IN) ==
[2019-01-26] MEDS ORDERED: Furosemide 40 MG/4 ML VIAL IVP STA (20:06)
--- NOTE | 2019-01-26 20:24 | Emergency Department Note ---
Disposition Clinical Impression: CHF (congestive heart failure) Qualifiers: Heart failure type: unspecified Heart failure chronicity: acute on chronic Qualified Code(s): I50.9 - Heart failure, unspecified Disposition: Admitted As Inpatient Condition: Good Forms: ED Satisfaction Letter Time of Disposition: 21:52 General Adult HPI - General Chief complaint: ED Extremity Problem,Nontraumatic Stated complaint: swelling Time Seen by Provider: 01/26/19 19:56 Source: patient, family Limitations: no limitations Nursing Notes Reviewed: Yes Vital Signs Reviewed: Yes - History of Present Illness HPI Narrative: Male patient presenting to emergency complaining of increasing shortness of breath over the past week as well as increasing weight gain of 13 pounds. Patient does have history of atrial fibrillation with an ablation pacemaker placed and CVA. He does have a history of congestive heart failure with ejec tion fraction of 45% no history of CA. He is currently anticoagulated on Xarelto. Stated the patient was at the [facility] approximately a week ago for increased fluid retention. He is discharged on Lasix 20 mg twice a day. They reported if he had a weight gain over 2 pounds in a day to increase this to 40 mg twice a day. They did increase this to 40 mg with no increase in his urination or decreased in his weight. She reports that he has had a 13 pound weight gain and has been more short of breath. Dyspnea on exertion. Is unable to lay flat in bed. He does report one episode of chest pain several days ago but none since. He does wear oxygen at home 2 L at night but has been wearing this [id number] secondary to his increasing shortness of breath. She is also reporting an episode chest to 3 nights ago where the patient was foaming at his mouth and had increase in shortness of breath. Pain Scale: 9 - Related Data Home Medications Medication Instructions Recorded Confirmed Amiodarone [Cordarone] 200 mg PO QAM 04/04/18 12/30/18 Aspirin 81 mg PO QAM 04/04/18 12/30/18 Finasteride [Proscar] 5 mg PO DAILY 04/04/18 12/30/18 Tamsulosin HCl [Flomax] 0.4 mg PO BID 04/04/18 12/30/18 Insulin ASPART [NovoLOG] 0 unit SQ ACHS MDD PER SLIDING 04/25/18 12/30/18 SCALE Fluticasone/Salmeterol [Advair 1 puff IH BID 06/30/18 12/30/18 250-50 Diskus] Gabapentin [Neurontin] 400 mg PO BID 06/30/18 12/30/18 Acetaminophen [Tylenol] 650 mg PO Q6HR PRN 07/26/18 12/30/18 Capsaicin [High Potency Capsaicin] 1 appl TP QID PRN 08/27/18 12/30/18 Carboxymethylcellulose Sodium 1 drop BOTH EYES TID 08/27/18 12/30/18 [Refresh Liquigel] Polyethylene Glycol 3350 17 gm PO DAILY PRN 08/27/18 12/30/18 [Natura-Lax] Saline Nasal [place] [[place] Nasal 2 spray NS Q2H PRN 08/27/18 12/30/18 [place]] Simethicone [Gas-X] 80 mg PO TID PRN 08/27/18 12/30/18 Trazodone HCl 200 mg PO HS 08/27/18 12/30/18 Docusate [Colace] 100 mg PO Q8H PRN 09/17/18 12/30/18 Rivaroxaban [Xarelto] 15 mg PO 2000 09/17/18 12/30/18 Tizanidine HCl 2 mg PO BID PRN 09/17/18 12/30/18 Atorvastatin [Lipitor] 40 mg PO QPM 11/18/18 12/30/18 Cholecalciferol (D-3) [Vitamin D] 2,000 unit PO DAILY 11/18/18 12/30/18 Sennosides/Docusate Sodium 1 tab PO QAM 11/18/18 12/30/18 [Docusate Sodium-Sennosides Tab] DULoxetine [Cymbalta] 60 mg PO DAILY 11/30/18 12/30/18 Albuterol Sulfate [Proair Hfa] 2 puff IH Q4H PRN 12/30/18 12/30/18 Furosemide [Lasix] 40 mg PO DAILY 12/30/18 12/30/18 L. Acidophilus/Pectin, [place] 1 cap PO BID 12/30/18 12/30/18 [Acidophilus Capsule] Omeprazole [PriLOSEC] 20 mg PO QAM 12/30/18 12/30/18 Tiotropium [Spiriva] 1 puff IH DAILY 12/30/18 12/30/18 metOLazone [Zaroxolyn] 5 mg PO DAILY PRN 12/30/18 12/30/18 Previous Rx's Medication Instructions Recorded Fludrocortisone Acetate [Florinef] 0.1 mg PO DAILY 30 Days #30 tablet 01/01/19 Hydrocortisone [Cortef] 10 mg PO TID 30 Days #90 tablet 01/01/19 Allergies Allergy/AdvReac Type Severity Reaction Status Date / Time IVP DYE Allergy Severe Anaphylaxis Uncoded 11/30/18 22:26 All systems ED: reviewed and negative except as stated. Review of Systems: As Per HPI Constitutional: Reports: chills. Denies: fever ENT ED: Denies: congestion Cardiovascular: Reports: chest pain (A couple days ago but none today.), dyspnea on exertion, edema (The lower extremities up to the buttocks.) Respiratory: Reports: cough, dyspnea, sputum production Gastrointestinal: Denies: abdominal pain, nausea, vomiting, diarrhea Genitourinary: Reports: frequency (Decreased). Denies: urgency, dysuria, hematuria Musculoskeletal: Denies: back pain, neck pain Integumentary: Denies: rash Past Medical History - Past Medical History Medical history: Reports: arthritis, atrial fibrillation, CHF, COPD, CVA, diabetes, GERD, hyperlipidemia, hypertension, pulmonary embolus, renal disease, other Surgical history: Reports: herniorrhaphy Psychiatric history: Reports: anxiety, depression, panic disorder, PTSD, previous psychiatric hospitalization - Social History Smoking Status: Former smoker Smokeless Tobacco Status: No Alcohol use: Reports: none Drug use: Reports: none Physical Exam - General Limitations: no limitations General appearance: alert, in no apparent distress - Head Head exam: atraumatic, normocephalic, normal inspection - Eye Eye exam: Present: normal appearance, PERRL, EOMI - ENT ENT exam: normal exam, normal oropharynx, mucous membranes moist - Neck Neck exam: Present: normal inspection, full ROM, trachea midline - Chest Chest inspection: Present: normal inspection, symmetric chest wall rise - Respiratory Respiratory exam: Present: respiratory distress (Tachypneic with Shallow respirations), accessory muscle use, other (Renal cyst in the lower lobes.). Absent: wheezes - Cardiovascular Cardiovascular exam: Present: regular rate, normal rhythm, normal heart sounds - Abdominal Exam Abdominal exam: Present: soft, Non-Tender. Absent: tenderness, distention, guarding, rebound, rigidity, organomegaly - Extremities Exam Extremities exam: Present: normal inspection, full ROM, normal capillary refill, pedal edema (Patient with pitting edema up to his buttocks.). Absent: tenderness, calf tenderness - Back Exam Back exam: Present: normal inspection, full ROM. Absent: tenderness - Neurological Exam Neurological exam: Present: alert, oriented X3 - Psychiatric Psychiatric exam: Present: normal affect, normal mood - Skin Skin exam: Present: warm, dry, intact, normal color. Absent: rash, cyanosis, diaphoresis Course Course Narrative: Patient mildly tachypneic with rales in the lower lobes. Is on 2 L of oxygen at night only but has been wearing it around the clock secondary to dyspnea and dyspnea on exertion. Denies any chest pain. Does have pitting edema to his buttocks. Straight was read as no signs of pulmonary edema however does appear to be mildly congested on my evaluation. No focal infiltrate noted. BNP is not elevated however does not appear to elevate generally for this patient. Patient is atrially paced on his EKG while here. Denies any chest pain. Lab workup was unremarkable. Secondary to his dyspnea on exertion as well as hypoxia we will give patient 40 mg of IV Lasix and admitted to the hospital. Vital Signs Temperature 97.7 F 01/26/19 19:51 Pulse Rate 71 01/26/19 19:51 Respiratory Rate 18 01/26/19 19:51 Blood Pressure 131/84 01/26/19 19:51 O2 Sat by Pulse Oximetry 95 01/26/19 19:51 Temperature 97.7 F 01/26/19 19:51 Pulse Rate 71 01/26/19 19:51 Respiratory Rate 18 01/26/19 19:51 Blood Pressure 131/84 01/26/19 19:51 O2 Sat by Pulse Oximetry 95 01/26/19 19:51 Oxygen Delivery Oxygen Delivery Room Air Medical Decision Making - Medical Records Medical records reviewed: Yes I reviewed the patient's medical records. - Lab Data Lab results reviewed: Yes I reviewed the patient's lab results. Result diagrams: 01/26/19 20:34 01/26/19 20:34 Lab Results 01/26/19 01/26/19 01/26/19 Range/Units 20:34 20:34 20:34 WBC 7.1 (4.3-11.1) K/mcL RBC 4.39 (4.19-5.50) M/mcL Hgb 11.4 L (12.9-16.9) g/dL Hct 37.7 (37.5-50.1) % MCV 85.9 (83.0-100.0) fL MCH 26.0 L (28.0-33.3) pg MCHC 30.2 L (31.6-35.5) g/dL RDW 15.9 H (11.5-14.5) % Plt Count 287 (140-400) K/mcL MPV 9.7 (9.4-12.4) fL Immature Gran % 0.4 (0-4) % Seg Neutrophils % 62.4 % Lymphocytes % 17.8 % Monocytes % 11.9 % Eosinophils % 6.9 % Basophils % 0.6 % Neutrophils # 4.4 (1.6-8.9) K/mcL Lymphocytes # 1.3 (0.6-4.6) K/mcL Monocytes # 0.8 (0.0-1.3) K/mcL Eosinophils # 0.5 (0.0-0.6) K/mcL Basophils # 0.0 (0.0-0.2) K/mcL Sodium 139 (136-145) mEq/L Potassium 3.8 (3.5-5.1) mEq/L Chloride 105 (98-107) mEq/L Carbon Dioxide 27 (23-29) mEq/L BUN 15 (8-23) mg/dL Creatinine 1.27 (0.70-1.30) mg/dL Est GFR ( Amer) > 60 (> 60) Est GFR (Non-Af Amer) 56 L (> 60) BUN/Creatinine Ratio 12 (6-26) Glucose 90 (70-105) mg/dL Calculated Osmolality 288 (280-300) Calcium 8.8 (8.6-10.3) mg/dL Troponin I < 0.03 (< 0.04) ng/mL B-Natriuretic Peptide 74 (Less than 100) pg/mL Urine Color (Yellow) Urine Clarity (Clear) Urine pH (5.0-8.0) pH Units Ur Specific [place] (1.010-1.025) Urine Protein (Neg-Trace) mg/dL Urine Glucose (UA) (Normal) mg/dL Urine Ketones (Negative) mg/dL Urine Blood (Negative) Urine Nitrite (Negative) Urine Bilirubin (Negative) Urine Urobilinogen (Normal) mg/dL Ur Leukocyte Esterase (Negative) Ur Culture Indicated? (NO) 01/26/19 Range/Units 20:47 WBC (4.3-11.1) K/mcL RBC (4.19-5.50) M/mcL Hgb (12.9-16.9) g/dL Hct (37.5-50.1) % MCV (83.0-100.0) fL MCH (28.0-33.3) pg MCHC (31.6-35.5) g/dL RDW (11.5-14.5) % Plt Count (140-400) K/mcL MPV (9.4-12.4) fL Immature Gran % (0-4) % Seg Neutrophils % % Lymphocytes % % Monocytes % % Eosinophils % % Basophils % % Neutrophils # (1.6-8.9) K/mcL Lymphocytes # (0.6-4.6) K/mcL Monocytes # (0.0-1.3) K/mcL Eosinophils # (0.0-0.6) K/mcL Basophils # (0.0-0.2) K/mcL Sodium (136-145) mEq/L Potassium (3.5-5.1) mEq/L Chloride (98-107) mEq/L Carbon Dioxide (23-29) mEq/L BUN (8-23) mg/dL Creatinine (0.70-1.30) mg/dL Est GFR ( Amer) (> 60) Est GFR (Non-Af Amer) (> 60) BUN/Creatinine Ratio (6-26) Glucose (70-105) mg/dL Calculated Osmolality (280-300) Calcium (8.6-10.3) mg/dL Troponin I (< 0.04) ng/mL B-Natriuretic Peptide (Less than 100) pg/mL Urine Color Yellow (Yellow) Urine Clarity Clear (Clear) Urine pH 5.5 (5.0-8.0) pH Units Ur Specific [place] > 1.030 H (1.010-1.025) Urine Protein Trace (Neg-Trace) mg/dL Urine Glucose (UA) Normal (Normal) mg/dL Urine Ketones Negative (Negative) mg/dL Urine Blood Negative (Negative) Urine Nitrite Negative (Negative) Urine Bilirubin Negative (Negative) Urine Urobilinogen Normal (Normal) mg/dL Ur Leukocyte Esterase Negative (Negative) Ur Culture Indicated? NO (NO) - Radiology Data Radiology results reviewed: Yes I reviewed the patient's radiology results. Chest X-Ray 01/26/19 20:05 IMPRESSION: No acute cardiopulmonary disease D/ / Rosendo Tanner MD / Rosendo Tanner MD Interpreting Provider: Rosendo Tanner MD - EKG Data EKG #1 EKG attestation: Yes I reviewed and interpreted this EKG. EKG results narrative: Atrially paced rhythm at a rate of 72. SC interval is 125. QRS duration is 104. QT is 416. QTC is 456. No signs of acute ischemia. No significant change from previous EKG dated 12/11/2018.
[2019-01-26 20:46] LABS: Basophils % 0.6 %; Eosinophils # 0.5 K/mcL (0.0-0.6); Eosinophils % 6.9 %; Hematocrit 37.7 % (37.5-50.1); Hemoglobin 11.4 g/dL (12.9-16.9); Immature Granulocytes % 0.4 % (0-4); Lymphocytes # 1.3 K/mcL (0.6-4.6); Lymphocytes % 17.8 %; Mean Corpuscular HGB Conc 30.2 g/dL (31.6-35.5); Mean Corpuscular Volume 85.9 fL (83.0-100.0); Mean Platelet Volume 9.7 fL (9.4-12.4); Monocytes # 0.8 K/mcL (0.0-1.3); Monocytes % 11.9 %; Neutrophils # 4.4 K/mcL (1.6-8.9); Platelet Count 287 K/mcL (140-400); Red Blood Count 4.39 M/mcL (4.19-5.50); Red Cell Distribution Width 15.9 % (11.5-14.5); Segmented Neutrophils % 62.4 %; White Blood Count 7.1 K/mcL (4.3-11.1)
--- NOTE | 2019-01-26 20:55 | Emergency Department Note ---
Disposition Clinical Impression: Acute decompensated heart failure Disposition: Admitted As Inpatient Condition: Fair Forms: ED Satisfaction Letter Time of Disposition: 21:52 General Adult HPI - General Chief complaint: ED Extremity Problem,Nontraumatic Stated complaint: swelling Time Seen by Provider: 01/26/19 19:56 Source: patient, family Limitations: no limitations - History of Present Illness Pain Scale: 9 - Related Data Home Medications Medication Instructions Recorded Confirmed Amiodarone [Cordarone] 200 mg PO QAM 04/04/18 12/30/18 Aspirin 81 mg PO QAM 04/04/18 12/30/18 Finasteride [Proscar] 5 mg PO DAILY 04/04/18 12/30/18 Tamsulosin HCl [Flomax] 0.4 mg PO BID 04/04/18 12/30/18 Insulin ASPART [NovoLOG] 0 unit SQ ACHS MDD PER SLIDING 04/25/18 12/30/18 SCALE Fluticasone/Salmeterol [Advair 1 puff IH BID 06/30/18 12/30/18 250-50 Diskus] Gabapentin [Neurontin] 400 mg PO BID 06/30/18 12/30/18 Acetaminophen [Tylenol] 650 mg PO Q6HR PRN 07/26/18 12/30/18 Capsaicin [High Potency Capsaicin] 1 appl TP QID PRN 08/27/18 12/30/18 Carboxymethylcellulose Sodium 1 drop BOTH EYES TID 08/27/18 12/30/18 [Refresh Liquigel] Polyethylene Glycol 3350 17 gm PO DAILY PRN 08/27/18 12/30/18 [Natura-Lax] Saline Nasal [place] [[place] Nasal 2 spray NS Q2H PRN 08/27/18 12/30/18 [place]] Simethicone [Gas-X] 80 mg PO TID PRN 08/27/18 12/30/18 Trazodone HCl 200 mg PO HS 08/27/18 12/30/18 Docusate [Colace] 100 mg PO Q8H PRN 09/17/18 12/30/18 Rivaroxaban [Xarelto] 15 mg PO 2000 09/17/18 12/30/18 Tizanidine HCl 2 mg PO BID PRN 09/17/18 12/30/18 Atorvastatin [Lipitor] 40 mg PO QPM 11/18/18 12/30/18 Cholecalciferol (D-3) [Vitamin D] 2,000 unit PO DAILY 11/18/18 12/30/18 Sennosides/Docusate Sodium 1 tab PO QAM 11/18/18 12/30/18 [Docusate Sodium-Sennosides Tab] DULoxetine [Cymbalta] 60 mg PO DAILY 11/30/18 12/30/18 Albuterol Sulfate [Proair Hfa] 2 puff IH Q4H PRN 12/30/18 12/30/18 Furosemide [Lasix] 40 mg PO DAILY 12/30/18 12/30/18 L. Acidophilus/Pectin, [place] 1 cap PO BID 12/30/18 12/30/18 [Acidophilus Capsule] Omeprazole [PriLOSEC] 20 mg PO QAM 12/30/18 12/30/18 Tiotropium [Spiriva] 1 puff IH DAILY 12/30/18 12/30/18 metOLazone [Zaroxolyn] 5 mg PO DAILY PRN 12/30/18 12/30/18 Previous Rx's Medication Instructions Recorded Fludrocortisone Acetate [Florinef] 0.1 mg PO DAILY 30 Days #30 tablet 01/01/19 Hydrocortisone [Cortef] 10 mg PO TID 30 Days #90 tablet 01/01/19 Allergies Allergy/AdvReac Type Severity Reaction Status Date / Time IVP DYE Allergy Severe Anaphylaxis Uncoded 11/30/18 22:26 Past Medical History - Past Medical History Medical history: Reports: arthritis, atrial fibrillation, CHF, COPD, CVA, diabetes, GERD, hyperlipidemia, hypertension, pulmonary embolus, renal disease, other Surgical history: Reports: herniorrhaphy Psychiatric history: Reports: anxiety, depression, panic disorder, PTSD, previous psychiatric hospitalization - Social History Smoking Status: Former smoker Smokeless Tobacco Status: No Alcohol use: Reports: none Drug use: Reports: none Physical Exam - General Limitations: no limitations General appearance: alert, in no apparent distress Course Vital Signs Temperature 97.7 F 01/26/19 19:51 Pulse Rate 71 01/26/19 19:51 Respiratory Rate 18 01/26/19 19:51 Blood Pressure 131/84 01/26/19 19:51 O2 Sat by Pulse Oximetry 95 01/26/19 19:51 Temperature 97.7 F 01/26/19 19:51 Pulse Rate 64 01/26/19 21:48 Respiratory Rate 16 01/26/19 21:48 Blood Pressure 136/74 01/26/19 21:48 O2 Sat by Pulse Oximetry 100 01/26/19 21:48 Oxygen Delivery Oxygen Delivery Room Air Medical Decision Making - Lab Data Result diagrams: 01/26/19 20:34 01/26/19 20:34 Lab Results 01/26/19 01/26/19 01/26/19 Range/Units 20:34 20:34 20:34 WBC 7.1 (4.3-11.1) K/mcL RBC 4.39 (4.19-5.50) M/mcL Hgb 11.4 L (12.9-16.9) g/dL Hct 37.7 (37.5-50.1) % MCV 85.9 (83.0-100.0) fL MCH 26.0 L (28.0-33.3) pg MCHC 30.2 L (31.6-35.5) g/dL RDW 15.9 H (11.5-14.5) % Plt Count 287 (140-400) K/mcL MPV 9.7 (9.4-12.4) fL Immature Gran % 0.4 (0-4) % Seg Neutrophils % 62.4 % Lymphocytes % 17.8 % Monocytes % 11.9 % Eosinophils % 6.9 % Basophils % 0.6 % Neutrophils # 4.4 (1.6-8.9) K/mcL Lymphocytes # 1.3 (0.6-4.6) K/mcL Monocytes # 0.8 (0.0-1.3) K/mcL Eosinophils # 0.5 (0.0-0.6) K/mcL Basophils # 0.0 (0.0-0.2) K/mcL Sodium 139 (136-145) mEq/L Potassium 3.8 (3.5-5.1) mEq/L Chloride 105 (98-107) mEq/L Carbon Dioxide 27 (23-29) mEq/L BUN 15 (8-23) mg/dL Creatinine 1.27 (0.70-1.30) mg/dL Est GFR ( Amer) > 60 (> 60) Est GFR (Non-Af Amer) 56 L (> 60) BUN/Creatinine Ratio 12 (6-26) Glucose 90 (70-105) mg/dL Calculated Osmolality 288 (280-300) Calcium 8.8 (8.6-10.3) mg/dL Troponin I < 0.03 (< 0.04) ng/mL B-Natriuretic Peptide 74 (Less than 100) pg/mL Urine Color (Yellow) Urine Clarity (Clear) Urine pH (5.0-8.0) pH Units Ur Specific [place] (1.010-1.025) Urine Protein (Neg-Trace) mg/dL Urine Glucose (UA) (Normal) mg/dL Urine Ketones (Negative) mg/dL Urine Blood (Negative) Urine Nitrite (Negative) Urine Bilirubin (Negative) Urine Urobilinogen (Normal) mg/dL Ur Leukocyte Esterase (Negative) Ur Culture Indicated? (NO) 01/26/19 Range/Units 20:47 WBC (4.3-11.1) K/mcL RBC (4.19-5.50) M/mcL Hgb (12.9-16.9) g/dL Hct (37.5-50.1) % MCV (83.0-100.0) fL MCH (28.0-33.3) pg MCHC (31.6-35.5) g/dL RDW (11.5-14.5) % Plt Count (140-400) K/mcL MPV (9.4-12.4) fL Immature Gran % (0-4) % Seg Neutrophils % % Lymphocytes % % Monocytes % % Eosinophils % % Basophils % % Neutrophils # (1.6-8.9) K/mcL Lymphocytes # (0.6-4.6) K/mcL Monocytes # (0.0-1.3) K/mcL Eosinophils # (0.0-0.6) K/mcL Basophils # (0.0-0.2) K/mcL Sodium (136-145) mEq/L Potassium (3.5-5.1) mEq/L Chloride (98-107) mEq/L Carbon Dioxide (23-29) mEq/L BUN (8-23) mg/dL Creatinine (0.70-1.30) mg/dL Est GFR ( Amer) (> 60) Est GFR (Non-Af Amer) (> 60) BUN/Creatinine Ratio (6-26) Glucose (70-105) mg/dL Calculated Osmolality (280-300) Calcium (8.6-10.3) mg/dL Troponin I (< 0.04) ng/mL B-Natriuretic Peptide (Less than 100) pg/mL Urine Color Yellow (Yellow) Urine Clarity Clear (Clear) Urine pH 5.5 (5.0-8.0) pH Units Ur Specific [place] > 1.030 H (1.010-1.025) Urine Protein Trace (Neg-Trace) mg/dL Urine Glucose (UA) Normal (Normal) mg/dL Urine Ketones Negative (Negative) mg/dL Urine Blood Negative (Negative) Urine Nitrite Negative (Negative) Urine Bilirubin Negative (Negative) Urine Urobilinogen Normal (Normal) mg/dL Ur Leukocyte Esterase Negative (Negative) Ur Culture Indicated? NO (NO) Critical Care Time Critical Care Time: Yes Total Critical Care Time: 35 Attestation: Critical care performed: Time is exclusive of separately billable procedures. Time includes: direct patient care, patient reassessment, coordination of patient care, interpretation of data (laboratory data, radiology data, and respiratory data), review of patient's medical records, medical consultation and documentation of patient care. Procedures included in critical care time: Procedures excluded from critical care time: Attestation Statement - Attestation Attestation: I examined this patient and my medical decision-making was reviewed with the Resident Physician. I agree with the documented findings, disposition and treatment plan as described except to the extent set forth below. Patient resisted ED with a chief complaint of fluid overload. Complains of edema up to his groin. Shortness of breath. Increased oxygen demand at night. 13 pound weight gain. History of CKD. He has not taken his Lasix 40 mg twice a day with no relief. On exam he is in no acute respiratory distress. Lung sounds diminished. Radial pulse in bases. 3-4+ pitting edema in his lower extremities. Plan. Cardiac workup. IV Lasix. Likely admission. EKG was reviewed with the resident. No acute ischemic changes. Patient has a negative cardiac workup. His BNP is within normal limits. Betty ent however is chronically fluid overloaded. Given IV Lasix. Admitted to medicine.
[2019-01-26 21:06] LABS: BUN/Creatinine Ratio 12 (6-26); Blood Urea Nitrogen 15 mg/dL (8-23); Calcium 8.8 mg/dL (8.6-10.3); Carbon Dioxide 27 mEq/L (23-29); Chloride 105 mEq/L (98-107); Glucose 90 mg/dL (70-105); Osmolality,Calculated 288 (280-300); Potassium 3.8 mEq/L (3.5-5.1); Sodium 139 mEq/L (136-145); Troponin I < 0.03 ng/mL (< 0.04); eGFR For African Americans > 60 (> 60); eGFR For Non-African Americans 56 (> 60)
[2019-01-26 21:07] LABS: Bilirubin,Urine Negative (Negative); Blood,Urine Negative (Negative); Clarity,Urine Clear (Clear); Color,Urine Yellow (Yellow); Glucose,Urine (UA) Normal (Normal); Ketones,Urine Negative (Negative); Leukocyte Esterase,Urine Negative (Negative); Nitrite,Urine Negative (Negative); PH,Urine 5.5 pH Units (5.0-8.0); Protein,Urine Trace mg/dL (Neg-Trace); Specific Gravity,Urine > 1.030 (1.010-1.025); Urobilinogen,Urine Normal (Normal)
[2019-01-27] MEDS ORDERED: Acetaminophen 325 MG TABLET PO PRN (00:01)
[2019-01-27] MEDS ORDERED: Naloxone 0.4 MG/ML INJ IVP PRN (00:01)
[2019-01-27] MEDS ORDERED: Ondansetron 4 MG/2 ML VIAL IVP PRN (00:01)
[2019-01-27] MEDS ORDERED: Capsaicin 0.025% 60 GM TUBE TP PRN (00:05)
[2019-01-27] MEDS ORDERED: tiZANidine 4 MG TABLET PO PRN (00:05)
[2019-01-27] MEDS ORDERED: Saline Nasal Spray 44 ML BOTTLE NS PRN (00:05)
[2019-01-27] MEDS ORDERED: Simethicone 80 MG TAB.CHEW PO PRN (00:05)
[2019-01-27] MEDS ORDERED: Dextrose Gel 15 GM/37.5 ML TUBE PO PRN ×2 (00:10)
[2019-01-27] MEDS ORDERED: *HR* Dextrose 50 % in Water (Syg) 50 ML SYRINGE IVP PRN (00:10)
[2019-01-27] MEDS ORDERED: D5% in Water 1,000 ML IVC PRN (00:10)
--- NOTE | 2019-01-27 01:27 | Internal Med History&Physical ---
Date of Encounter: 01/26/19 Time of Encounter: 23:10 Internal Medicine - H&P: HPI Chief complaint: leg swelling; SOB Admitted From: Emergency Dept Plans for Post Hospital Care: Home History of present illness: Mr. Issa is a 69 year old male who presents with a several day history of increasing leg swelling, abdominal girth increase, and shortness of breath. He has also had about a 12-15 pound weight gain. In the ER, he was diagnosed with CHF. He received a dose of Lasix and routine lab workup. He was then admitted to hospitalist service. Upon my assessment of the patient, he feels better after some Lasix. His dyspnea is improved, but he does complain of significant edema of his lower extremities up to his abdomen. He was recently hospitalized here for CHF and was actually hospitalized at the [facility] as well thereafter for the same. He denies any fever, cough, productive mucus, hemoptysis, or chest pain. Of note, patient was recently diagnosed with [place]'s disease during his last hospital stay. Other then tonight's dosing, he has not missed any dosing of his hydrocortisone and/or Florinef. Past Med Surg Social Fam HX - Past Medical History Attestation: Yes The following information was validated with the patient. Source: patient, old records reviewed Medical history: arthritis, atrial fibrillation, CHF, COPD, CVA, diabetes, GERD, hyperlipidemia, hypertension, pulmonary embolus, renal disease, other Additional medical history: maile's disease Psychiatric history: anxiety, depression, panic disorder, PTSD, previous psyc hiatric hospitalization - Past Surgical History Surgical History: herniorrhaphy Additional surgical history: Right knee replacement. Cardiac Ablasion 2014. left arm - Social History Smoking Status: Former smoker Smokeless Tobacco Status: No Alcohol use: none Drug use: none Current living situation: Home, With Family Activity Level: Mostly sedentary Recent Out of Country Travel Within the Last 8 Weeks: No - Family History Father Adopted: No Family Member Ethnicity: Non- Living Status: Hx Family Cardiac Disorders: No Hx Family Respiratory Disorders: No Hx Family Cancer: Yes (leukemia) Hx Family GI Disorders: No Hx Family Endocrine Disorder: No Hx Family Neuromuscular Disorders: No Hx Family Neurologic Disorders: No Hx Family HEENT Disorders: No Hx Family Autoimmune Disorders: No Brother Family Member Ethnicity: Non- Living Status: Still Living Sister Family Member Ethnicity: Non- Living Status: Still Living Mother Adopted: No Family Member Ethnicity: Non- Twin of Family Member: Yes Living Status: Hx Family Cardiac Disorders: Yes (CHF) Hx Family Respiratory Disorders: No Hx Family Cancer: No Hx Family GI Disorders: No Hx Family Endocrine Disorder: Yes (DM) Hx Family Neuromuscular Disorders: No Hx Family Neurologic Disorders: No Hx Family HEENT Disorders: No Hx Family Autoimmune Disorders: No Internal Medicine - H&P: Meds Amiodarone [Cordarone] 200 mg PO QAM 04/04/18 [History] Aspirin 81 mg PO QAM 04/04/18 [History] Finasteride [Proscar] 5 mg PO DAILY 04/04/18 [History] Tamsulosin HCl [Flomax] 0.4 mg PO BID 04/04/18 [History] Insulin ASPART [NovoLOG] 0 unit SQ ACHS MDD PER SLIDING SCALE 04/25/18 [History] Fluticasone/Salmeterol [Advair 250-50 Diskus] 1 puff IH BID 06/30/18 [History] Gabapentin [Neurontin] 400 mg PO BID 06/30/18 [History] Acetaminophen [Tylenol] 650 mg PO Q6HR PRN 07/26/18 [History] Capsaicin [High Potency Capsaicin] 1 appl TP QID PRN 08/27/18 [History] Carboxymethylcellulose Sodium [Refresh Liquigel] 1 drop BOTH EYES TID 08/27/18 [History] Polyethylene Glycol 3350 [Natura-Lax] 17 gm PO DAILY PRN 08/27/18 [History] Saline Nasal [place] [[place] Nasal [place]] 2 spray NS Q2H PRN 08/27/18 [History] Simethicone [Gas-X] 80 mg PO TID PRN 08/27/18 [History] Trazodone HCl 200 mg PO HS 08/27/18 [History] Docusate [Colace] 100 mg PO Q8H PRN 09/17/18 [History] Rivaroxaban [Xarelto] 15 mg PO 2000 09/17/18 [History] Tizanidine HCl 2 mg PO BID PRN 09/17/18 [History] Atorvastatin [Lipitor] 40 mg PO QPM 11/18/18 [History] Cholecalciferol (D-3) [Vitamin D] 2,000 unit PO DAILY 11/18/18 [History] Sennosides/Docusate Sodium [Docusate Sodium-Sennosides Tab] 1 tab PO QAM 11/18/18 [History] DULoxetine [Cymbalta] 60 mg PO DAILY 11/30/18 [History] Albuterol Sulfate [Proair Hfa] 2 puff IH Q4H PRN 12/30/18 [History] Furosemide [Lasix] 40 mg PO DAILY 12/30/18 [History] L. Acidophilus/Pectin, Jaars [Acidophilus Capsule] 1 cap PO BID 12/30/18 [Histo ry] Omeprazole [PriLOSEC] 20 mg PO QAM 12/30/18 [History] Tiotropium [Spiriva] 1 puff IH DAILY 12/30/18 [History] metOLazone [Zaroxolyn] 5 mg PO DAILY PRN 12/30/18 [History] Fludrocortisone Acetate [Florinef] 0.1 mg PO DAILY 30 Days #30 tablet 01/01/19 [Rx] Hydrocortisone [Cortef] 10 mg PO TID 30 Days #90 tablet 01/01/19 [Rx] Allergy/AdvReac Type Severity Reaction Status Date / Time IVP DYE Allergy Severe Anaphylaxis Uncoded 11/30/18 22:26 - Constitutional Constitutional: fatigue, weight gain, no chills, no fever(s) - EENT Eyes: no blurry vision, no change in vision Ears: no ear pain, no tinnitus Nose, mouth and throat: no nasal congestion, no nasal discharge, no sinus pressure, no sore throat - Cardiovascular Cardiovascular ROS IM: dyspnea, dyspnea on exertion, edema, no chest pain, no orthopnea, no paroxysmal nocturnal dyspnea - Respiratory Respiratory: no cough, no chest congestion, no excessive phlegm production, no change in phlegm color - Gastrointestinal Gastrointestinal: no abdominal pain, no diarrhea, no hematemesis, no hematochezia, no melena, no nausea, no vomiting - Genitourinary Genitourinary ROS male: no dysuria, no flank pain, no hematuria - Musculoskeletal Musculoskeletal ROS IM: no arthralgias, no back pain - Integumentary Integumentary IM: no rash, no jaundice - Neurological Neurological ROS: no dizziness, no focal weakness, no frequent falls, no headache(s) - Psychiatric Psychiatric: no anxiety, no depression - Endocrine Endocrine IM: no polydipsia, no polyphagia, no polyuria - Allergic/Immunologic Allergic/Immunologic: no GI upset with certain foods - Constitutional Vitals: Temp Pulse Resp BP Pulse Ox 97.7 F 65 19 141/83 99 01/26/19 19:51 01/26/19 22:12 01/26/19 22:12 01/26/19 22:12 01/26/19 22:12 General appearance: Present: cooperative, A&O X 3, pleasant, no acute distress, answers questions appropriately Exam: patient has findings of anasarca with edema from his legs up to abdominal wall - Head Head exam: Present: normal inspection - Eye Eye exam: Present: EOMI, PERRL. Absent: scleral icterus Pupils: Present: normal accommodation - ENT ENT exam: Present: mucous membranes dry, normal exam, normal oropharynx - Neck Neck exam general surgery: Present: full ROM, supple, trachea midline. Absent: tenderness, nuchal rigidity, thyromegaly - Respiratory Respiratory exam: Absent: chest wall tenderness, rales, respiratory distress, rhonchi, wheezes, tachypnea Additional comments: lungs essentially clear - Cardiovascular Cardiovascular exam: Present: distant heart sounds, RRR, +S1, +S2, systolic murmur. Absent: diastolic murmur, tachycardia - GI/Abdominal GI/Abdominal exam: Present: normal bowel sounds, soft, no peritoneal signs. Absent: guarding, hepatomegaly, rebound, splenomegaly, tenderness Additional comments: edema from legs to abdomen - Extremities Exam Extremities exam: Present: normal capillary refill, pedal edema (4+), warm, radial pulses palpable and symmetrical. Absent: calf tenderness, joint swelling, tenderness - Back Exam Back exam: Absent: CVA tenderness (L), CVA tenderness (R) - Neurological Exam Neurological exam: Present: alert, CN II-XII intact, oriented X3, no focal deficits, strengths equal and symetr throughout - Psychiatric Psychiatric exam: Present: normal affect, normal mood - Skin Skin exam: Present: dry, intact, warm Internal Med - H&P Results - Labs CBC & Chem 7: 01/26/19 20:34 01/26/19 20:34 Labs: Short CBC 01/26/19 Range/Units 20:34 WBC 7.1 (4.3-11.1) K/mcL Hgb 11.4 L (12.9-16.9) g/dL Hct 37.7 (37.5-50.1) % Plt Count 287 (140-400) K/mcL Neutrophils # 4.4 (1.6-8.9) K/mcL BMP 01/26/19 20:34 Sodium 139 Potassium 3.8 Chloride 105 Carbon Dioxide 27 BUN 15 Creatinine 1.27 Glucose 90 Calcium 8.8 Cardiac Enzymes 01/26/19 Range/Units 20:34 Troponin I < 0.03 (< 0.04) ng/mL Urine 01/26/19 Range/Units 20:47 Urine Color Yellow (Yellow) Urine Clarity Clear (Clear) Urine pH 5.5 (5.0-8.0) pH Units Ur Specific [place] > 1.030 H (1.010-1.025) Urine Protein Trace (Neg-Trace) mg/dL Urine Glucose (UA) Normal (Normal) mg/dL - EKG Data -: EKG Interpreted by Myself - EKG Data Prior EKG available for review: yes When compared to previous EKG: there is no significant change EKG comments: 01/27/19 01:36 paced rhythm - Impressions ITS Impressions Chest X-Ray 01/26/19 20:05 IMPRESSION: No acute cardiopulmonary disease D/ / Rosendo Tanner MD / Rosendo Tanner MD Interpreting Provider: Rosendo Tanner MD - Diagnostic Studies Chest x-ray Status: image reviewed by me (negative) - Assessment and Plan (1) Acute on chronic diastolic (congestive) heart failure Current Visit: Yes Status: Acute Assessment and plan: 1. Will diurese with IV Lasix, fluid restrict, and monitor I/O. 2. Most recent ECHO results reviewed. 3. Trend troponins. 4. May need cardiology consultation and pacer interrogation if fails to improve. (2) IDDM (insulin dependent diabetes mellitus) Current Visit: Yes Status: Chronic Assessment and plan: 1. Will order SSI and monitor glucose closely. 2. Diabetic diet. 3. Resume home meds as appropriate; avoid oral diabetic agents. (3) Sick sinus syndrome Current Visit: Yes Status: Chronic Assessment and plan: 1. Pacer dependent. 2. Monitor on telemetry. 3. May need pacer interrogation/adjustment. (4) Adrenal insufficiency Current Visit: Yes Status: Chronic Assessment and plan: 1. Continue home hydrocortisone and florinef dosing. 2. Monitor electrolytes and clinical status. (5) DVT prophylaxis Current Visit: Yes Status: Acute Assessment and plan: 1. Continue Xarelto per home dosing.
[2019-01-27] MEDS: Hydrocortisone 10 MG TABLET PO SCH ×4 (02:32→19:32)
[2019-01-27] MEDS: Gabapentin 400 MG CAPSULE PO SCH ×3 (02:32→19:33)
[2019-01-27] MEDS: Insulin LISPRO 300 UNITS/3 ML VIAL SQ SCH ×3 (07:38→16:22)
[2019-01-27] MEDS: Tiotropium 18 MCG inhalation IH SCH (07:48)
[2019-01-27] MEDS: Budesonide/Formoterol 80/4.5 MDI IH SCH ×2 (07:48→19:46)
[2019-01-27] MEDS: Finasteride 5 MG TABLET PO SCH (08:20)
[2019-01-27] MEDS: Sennosides/Docusate Sodium TABLET PO SCH (08:21)
[2019-01-27] MEDS: Lactobacillus 1 EACH CAP.SPRINK PO SCH ×2 (08:21→19:33)
[2019-01-27] MEDS: Cholecalciferol (D-3) 1,000 UNIT (25MCG) TABLET PO SCH (08:21)
[2019-01-27] MEDS: *HR* Amiodarone 200 MG TABLET PO SCH (08:21)
[2019-01-27] MEDS: Aspirin 81 MG TAB.CHEW PO SCH (08:21)
[2019-01-27] MEDS: Furosemide 40 MG/4 ML VIAL IVP SCH ×2 (08:22→16:26)
[2019-01-27] MEDS: Artificial Tears SOLN 15 ML BOTTLE BOTH EYES SCH ×3 (08:23→19:35)
[2019-01-27 08:51] LABS: Basophils % 0.7 %; Eosinophils # 0.6 K/mcL (0.0-0.6); Eosinophils % 9.9 %; Hematocrit 38.3 % (37.5-50.1); Hemoglobin 11.6 g/dL (12.9-16.9); Immature Granulocytes % 0.5 % (0-4); Lymphocytes # 1.1 K/mcL (0.6-4.6); Mean Corpuscular HGB Conc 30.3 g/dL (31.6-35.5); Mean Corpuscular Hemoglobin 26.2 pg (28.0-33.3); Mean Corpuscular Volume 86.7 fL (83.0-100.0); Mean Platelet Volume 9.7 fL (9.4-12.4); Monocytes # 0.7 K/mcL (0.0-1.3); Neutrophils # 3.2 K/mcL (1.6-8.9); Platelet Count 268 K/mcL (140-400); Red Blood Count 4.42 M/mcL (4.19-5.50); Red Cell Distribution Width 15.9 % (11.5-14.5); Segmented Neutrophils % 56.9 %; White Blood Count 5.7 K/mcL (4.3-11.1)
[2019-01-27 09:04] LABS: INR 2.2; Prothrombin Time 24.7 Seconds (9.4-12.1)
[2019-01-27 09:07] LABS: Activated Partial Thrombo Time 43.2 Seconds (26.0-36.0)
[2019-01-27 09:57] LABS: Alanine Aminotransferase 20 Units/L (7-52); Albumin 3.4 g/dL (3.5-5.7); Albumin/Globulin Ratio 1.3 (1.1-2.2); Alkaline Phosphatase 101 Units/L (34-104); Aspartate Amino Transferase 18 Units/L (13-39); BUN/Creatinine Ratio 11 (6-26); Bilirubin,Total 0.4 mg/dL (0.3-1.0); Blood Urea Nitrogen 14 mg/dL (8-23); Calcium 8.7 mg/dL (8.6-10.3); Carbon Dioxide 24 mEq/L (23-29); Chloride 102 mEq/L (98-107); Chol/HDL Ratio 5.1 (0-4.9); Cholesterol 183 mg/dL (< 200); Globulin 2.6 g/dL (2.4-3.5); Glucose 89 mg/dL (70-105); HDL Cholesterol 36 mg/dL (40-59); LDL Cholesterol,Calculated 121 mg/dL (0-99); Magnesium 1.9 mg/dL (1.6-2.6); Osmolality,Calculated 292 (280-300); Phosphorous 3.8 mg/dL (2.7-4.5); Potassium 3.6 mEq/L (3.5-5.1); Sodium 141 mEq/L (136-145); Thyroid Stimulating Hormone 1.967 mcIU/mL (0.340-5.600); Triglycerides 128 mg/dL (< 150); eGFR For African Americans > 60 (> 60); eGFR For Non-African Americans 57 (> 60)
--- NOTE | 2019-01-27 12:45 | Internal Med Progress Note ---
Hospitalist Progress Note - Encounter Date of Encounter: 01/27/19 Time of Encounter: 12:41 - Subjective Interval History: Patient is feeling somewhat better today. Has had good response to IV Lasix. Breathing has improved. He denies any chest pain or palpitations. He does occasionally get dizzy when he stands up. He has previously used compression stockings but developed blisters from it. - Exam Vitals: Temp Pulse Resp BP Pulse Ox 98.2 F 84 20 105/69 90 01/27/19 11:52 01/27/19 11:52 01/27/19 11:52 01/27/19 11:52 01/27/19 11:52 Exam: General: Patient is alert, no acute distress, oriented x 3 Respiratory: Good respiratory effort. Normal breath sounds. No wheezing or crackles. Cardiovascular: Regular rate and rhythm. s1 and s2 normal No clicks, rubs, gallops, or murmurs. Bilateral pitting pedal edema in both upper and lower extremities Abdomen: Abdomen is soft, nontender. Bowel sounds are present Musculoskeletal: Spontaneously moving all extremities Skin: warm, dry, intact. Neuro: Alert oriented x 3 normal cranial nerves, no focal deficits - Assessment and Plan (1) Acute on chronic diastolic (congestive) heart failure Current Visit: Yes Status: Acute (2) Sick sinus syndrome Current Visit: Yes Status: Chronic (3) Adrenal insufficiency Current Visit: Yes Status: Chronic (4) IDDM (insulin dependent diabetes mellitus) Current Visit: Yes Status: Chronic (5) DVT prophylaxis Current Visit: Yes Status: Acute DVT Prophylaxis: On Xarelto - Summary of Assessment and Plan Summary of Assessment and Plan: Acute on chronic diastolic congestive heart failure: Patient continues to have significant bilateral pedal edema. Continue intravenous diuretics. Renal function stable. Monitor input and output. Blood pressure well controlled. Adrenal insufficiency: Continue Florinef and and hydrocortisone. Atrial fibrillation: Rate controlled. Continue Xarelto. COPD: Not in acute exacerbation. Continue bronchodilators as needed Diabetes mellitus type 2: Blood sugars are well controlled. DVT prophylaxis: Patient on Xarelto. Moderate risk for complications - Time Spent with Patient Total time spent is greater than 50% in coordination of care (as documented) at patient's floor/unit and/or counseling patient: Internal Medicine: Result - Labs CBC & Chem 7: 01/27/19 07:48 01/27/19 07:48 Labs: Short CBC 07/27/19 07/28/19 Range/Units 20:34 07:48 WBC 7.1 5.7 (4.3-11.1) K/mcL Hgb 11.4 L 11.6 L (12.9-16.9) g/dL Hct 37.7 38.3 (37.5-50.1) % Plt Count 287 268 (140-400) K/mcL Neutrophils # 4.4 3.2 (1.6-8.9) K/mcL BMP 01/26/19 01/27/19 20:34 07:48 Sodium 139 141 Potassium 3.8 3.6 Chloride 105 102 Carbon Dioxide 27 24 BUN 15 14 Creatinine 1.27 1.25 Glucose 90 89 Calcium 8.8 8.7 Cardiac Enzymes 01/26/19 Range/Units 20:34 Troponin I < 0.03 (< 0.04) ng/mL Liver Function 01/27/19 Range/Units 07:48 Total Bilirubin 0.4 (0.3-1.0) mg/dL AST 18 (13-39) Units/L ALT 20 (7-52) Units/L Alkaline Phosphatase 101 (34-104) Units/L Albumin 3.4 L (3.5-5.7) g/dL Urine 01/26/19 Range/Units 20:47 Urine Color Yellow (Yellow) Urine Clarity Clear (Clear) Urine pH 5.5 (5.0-8.0) pH Units Ur Specific [place] > 1.030 H (1.010-1.025) Urine Protein Trace (Neg-Trace) mg/dL Urine Glucose (UA) Normal (Normal) mg/dL - ABG Interpretation ABG results: PT/INR, D-dimer PT 24.7 Seconds (9.4-12.1) H 01/27/19 07:48 - Impressions Impressions Chest X-Ray 01/26/19 20:05 IMPRESSION: No acute cardiopulmonary disease D/ / Rosendo Tanner MD / Rosendo Tanner MD Interpreting Provider: Rosendo Tanner MD Consult Discharge Plan - Plan [facility]errals: [facility] [Primary Care Provider] -
[2019-01-27] MEDS: *HR* Rivaroxaban 15 MG TABLET PO SCH (19:33)
[2019-01-28 05:29] LABS: BUN/Creatinine Ratio 14 (6-26); Blood Urea Nitrogen 16 mg/dL (8-23); Calcium 8.8 mg/dL (8.6-10.3); Carbon Dioxide 29 mEq/L (23-29); Chloride 103 mEq/L (98-107); Glucose 106 mg/dL (70-105); Osmolality,Calculated 292 (280-300); Potassium 3.6 mEq/L (3.5-5.1); Sodium 140 mEq/L (136-145); eGFR For African Americans > 60 (> 60); eGFR For Non-African Americans > 60 (> 60)
[2019-01-28] MEDS: Budesonide/Formoterol 80/4.5 MDI IH SCH ×2 (07:20→19:52)
[2019-01-28] MEDS: Tiotropium 18 MCG inhalation IH SCH (07:20)
[2019-01-28] MEDS: Gabapentin 400 MG CAPSULE PO SCH ×2 (08:01→20:52)
[2019-01-28] MEDS: Aspirin 81 MG TAB.CHEW PO SCH (08:01)
[2019-01-28] MEDS: Insulin LISPRO 300 UNITS/3 ML VIAL SQ SCH ×3 (08:01→16:52)
[2019-01-28] MEDS: *HR* Amiodarone 200 MG TABLET PO SCH (08:02)
[2019-01-28] MEDS: Cholecalciferol (D-3) 1,000 UNIT (25MCG) TABLET PO SCH (08:02)
[2019-01-28] MEDS: Sennosides/Docusate Sodium TABLET PO SCH (08:02)
[2019-01-28] MEDS: Finasteride 5 MG TABLET PO SCH (08:02)
[2019-01-28] MEDS: Lactobacillus 1 EACH CAP.SPRINK PO SCH ×2 (08:02→20:53)
[2019-01-28] MEDS: Artificial Tears SOLN 15 ML BOTTLE BOTH EYES SCH ×2 (08:03→16:52)
[2019-01-28] MEDS: Furosemide 40 MG/4 ML VIAL IVP SCH ×2 (08:03→16:52)
[2019-01-28] MEDS: Hydrocortisone 10 MG TABLET PO SCH ×3 (08:09→20:52)
--- NOTE | 2019-01-28 14:20 | Internal Med Progress Note ---
Hospitalist Progress Note - Encounter Date of Encounter: 01/28/19 Time of Encounter: 14:18 - Subjective Interval History: Patient is awake and alert. Doing much better. Feels that lower extremity swelling is improving. Good urine output. No chest pain or palpitations. No shortness of breath today. - Exam Vitals: Temp Pulse Resp BP Pulse Ox 98.0 F 82 20 121/81 92 01/28/19 11:20 01/28/19 11:20 01/28/19 11:20 01/28/19 11:20 01/28/19 11:20 Exam: General: Patient is alert, no acute distress, oriented x 3 Respiratory: Diminished breath sounds at both bases. No wheezing or crackles. Cardiovascular: Regular rate and rhythm. s1 and s2 normal No clicks, rubs, gallops, or murmurs. Bilateral pitting pedal edema in both upper and lower extremities improved compared to yesterday; Abdomen: Abdomen is soft, nontender. Bowel sounds are present Musculoskeletal: Spontaneously moving all extremities Skin: warm, dry, intact. Neuro: Alert oriented x 3 normal cranial nerves, no focal deficits - Assessment and Plan (1) Acute on chronic diastolic (congestive) heart failure Current Visit: Yes Status: Acute (2) Sick sinus syndrome Current Visit: Yes Status: Chronic (3) Adrenal insufficiency Current Visit: Yes Status: Chronic (4) IDDM (insulin dependent diabetes mellitus) Current Visit: Yes Status: Chronic (5) DVT prophylaxis Current Visit: Yes Status: Acute DVT Prophylaxis: On Xarelto - Summary of Assessment and Plan Summary of Assessment and Plan: Acute on chronic diastolic congestive heart failure: Continue intravenous Lasix for another day. Renal function remained stable. Patient having good urine output. Adrenal insufficiency: Continue Florinef and and hydrocortisone. Atrial fibrillation: Rate controlled. Continue Xarelto. COPD: On bronchodilators as needed Diabetes mellitus type 2: Blood sugars are well controlled. We will continue to monitor and adjust insulin regimen. DVT prophylaxis: Patient on Xarelto. Moderate risk for complications - Time Spent with Patient Total time spent is greater than 50% in coordination of care (as documented) at patient's floor/unit and/or counseling patient: Internal Medicine: Result - Labs CBC & Chem 7: 01/27/19 07:48 01/28/19 04:19 Labs: BMP 01/28/19 04:19 Sodium 140 Potassium 3.6 Chloride 103 Carbon Dioxide 29 BUN 16 Creatinine 1.18 Glucose 106 H Calcium 8.8 - ABG Interpretation ABG results: PT/INR, D-dimer PT 24.7 Seconds (9.4-12.1) H 01/27/19 07:48 Consult Discharge Plan - Plan Referrals: [facility] [Primary Care Provider] -
--- NOTE | 2019-01-28 14:26 | Electrocardiograph Report ---
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
[2019-01-28] MEDS ORDERED: NON-FORMULARY MEDICATION 1 EACH EACH (Oxycodone Immed Rel 10 MG) PO SCH (15:00)
[2019-01-28] MEDS ORDERED: *HR* OxyCODONE Immed Rel 5 MG TABLET PO PRN (15:03)
--- NOTE | 2019-01-28 16:12 | Electrocardiograph Report ---
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
[2019-01-28] MEDS: *HR* Rivaroxaban 15 MG TABLET PO SCH (20:53)
[2019-01-28] MEDS ORDERED: Melatonin 3 MG TABLET PO SCH (21:00)
[2019-01-29] MEDS: Artificial Tears SOLN 15 ML BOTTLE BOTH EYES SCH ×3 (00:02→14:36)
[2019-01-29 04:43] LABS: BUN/Creatinine Ratio 14 (6-26); Blood Urea Nitrogen 16 mg/dL (8-23); Calcium 9.2 mg/dL (8.6-10.3); Carbon Dioxide 32 mEq/L (23-29); Chloride 102 mEq/L (98-107); Glucose 107 mg/dL (70-105); Osmolality,Calculated 288 (280-300); Potassium 3.5 mEq/L (3.5-5.1); Sodium 138 mEq/L (136-145); eGFR For African Americans > 60 (> 60); eGFR For Non-African Americans > 60 (> 60)
[2019-01-29] MEDS: Hydrocortisone 10 MG TABLET PO SCH ×2 (05:56→14:36)
[2019-01-29] MEDS: Budesonide/Formoterol 80/4.5 MDI IH SCH (07:16)
[2019-01-29] MEDS: Insulin LISPRO 300 UNITS/3 ML VIAL SQ SCH ×2 (07:35→12:51)
[2019-01-29] MEDS: Lactobacillus 1 EACH CAP.SPRINK PO SCH (08:31)
[2019-01-29] MEDS: Cholecalciferol (D-3) 1,000 UNIT (25MCG) TABLET PO SCH (08:31)
[2019-01-29] MEDS: Finasteride 5 MG TABLET PO SCH (08:31)
[2019-01-29] MEDS: *HR* Amiodarone 200 MG TABLET PO SCH (08:32)
[2019-01-29] MEDS: Gabapentin 400 MG CAPSULE PO SCH (08:32)
[2019-01-29] MEDS: Aspirin 81 MG TAB.CHEW PO SCH (08:32)
[2019-01-29] MEDS: Sennosides/Docusate Sodium TABLET PO SCH (08:32)
[2019-01-29] MEDS ORDERED: Tiotropium 18 MCG inhalation IH SCH (10:00)
[2019-01-29] MEDS ORDERED: Furosemide 40 MG TABLET PO SCH (10:13)
--- NOTE | 2019-01-29 11:24 | Discharge Summary ---
- NOTES TO OUTPATIENT PROVIDER Notes to Outpatient Provider: Patient with a history of atrial fibrillation, congestive heart failure COPD, hypertension, pulmonary embolism and chronic kidney disease, adrenal insufficiency was hospitalized here with increased swelling and 12-15 pound weight gain. Diagnosed with acute CHF. He was treated with IV Lasix. He has had excellent response to IV Lasix so far and his now doing much better. Lower extremity swelling has mostly subsided. He is stable to be discharged home. He is strongly advised to continue fluid restriction to 1.5 L per day. He will continue taking Lasix 40 mg by mouth twice a day till he follows up with PCP. Date of Encounter: 01/29/19 Time of Encounter: 11:24 - Discharge Diagnosis (1) Acute on chronic diastolic (congestive) heart failure Priority: Primary Status: Acute (2) Sick sinus syndrome Priority: Secondary Status: Chronic (3) Adrenal insufficiency Priority: Secondary Status: Chronic (4) IDDM (insulin dependent diabetes mellitus) Priority: Secondary Status: Chronic (5) DVT prophylaxis Priority: Secondary Status: Acute Hospital course: Mr. Issa is a 69 year old male Patient with a history of atrial fibrillation, congestive heart failure COPD, hypertension, pulmonary embolism and chronic kidney disease, adrenal insufficiency was hospitalized here with increased swelling and 12-15 pound weight gain. Diagnosed with acute CHF. He was treated with IV Lasix. He has had excellent response to IV Lasix so far and his now doing much better. Lower extremity swelling has mostly subsided. He is stable to be discharged home. He is strongly advised to continue fluid restriction to 1.5 L per day. He is recommended to continue taking Lasix 40 mg twice daily until he follows up with his PCP. Discharge discussed with: patient, nurse - Time Spent with Patient Total time spent providing and/or coordinating discharge services: Time spent: Greater than 30 minutes (35 min) - Discharge Medications Prescriptions: Continued Insulin ASPART [NovoLOG] 0 unit SQ ACHS MDD PER SLIDING SCALE Acetaminophen [Tylenol] 650 mg PO Q6HR PRN MDD 3,000MG/24HRS PRN Reason: PAIN/FEVER Simethicone [Gas-X] 80 mg PO TID PRN PRN Reason: GAS Polyethylene Glycol 3350 [Natura-Lax] 17 gm PO DAILY PRN PRN Reason: Constipation Trazodone HCl 200 mg PO HS Tizanidine HCl 2 mg PO BID PRN PRN Reason: MUSCLE SPASM Albuterol Sulfate [Proair Hfa] 2 puff IH Q4H PRN PRN Reason: Shortness Of Breath Tiotropium [Spiriva] 1 puff IH DAILY Hydrocortisone [Cortef] 10 mg PO TID 30 Days #90 tablet Fludrocortisone Acetate [Florinef] 0.1 mg PO DAILY 30 Days #30 tablet Capsaicin [Arthritis Pain Relief] 1 appl TP QID PRN PRN Reason: Pain Carboxymethylcellulos/Glycerin [Refresh Optive Gel Eye Drops] 1 drop BOTH EYES BID Duloxetine HCl [Cymbalta] 60 mg PO QAM Fluticasone Propionate Nasal [Flonase] 1 spray NS DAILY PRN PRN Reason: Allergy Symptoms Furosemide [Lasix] 20 mg PO BID Furosemide [Lasix] 40 mg PO BID Naloxone [Narcan] 4 mg NS AD OxyCODONE Immed Rel [Roxicodone 10 MG] 10 mg PO TID Pantoprazole Sodium [Protonix] 20 mg PO DAILY PRN PRN Reason: GERD Rivaroxaban [Xarelto] 20 mg PO QAM Sodium Chloride 2 spray NS Q2H PRN PRN Reason: "NASAL PASSAGE CLEARING" Melatonin [Melatin] 9 mg PO HS Aspirin 81 mg PO DAILY Home Medications: Insulin ASPART [NovoLOG] 0 unit SQ ACHS MDD PER SLIDING SCALE 04/25/18 [History] Acetaminophen [Tylenol] 650 mg PO Q6HR PRN MDD 3,000MG/24HRS 07/26/18 [History] Polyethylene Glycol 3350 [Natura-Lax] 17 gm PO DAILY PRN 08/27/18 [History] Simethicone [Gas-X] 80 mg PO TID PRN 08/27/18 [History] Trazodone HCl 200 mg PO HS 08/27/18 [History] Tizanidine HCl 2 mg PO BID PRN 09/17/18 [History] Albuterol Sulfate [Proair Hfa] 2 puff IH Q4H PRN 12/30/18 [History] Tiotropium [Spiriva] 1 puff IH DAILY 12/30/18 [History] Fludrocortisone Acetate [Florinef] 0.1 mg PO DAILY 30 Days #30 tablet 01/01/19 [Rx] Hydrocortisone [Cortef] 10 mg PO TID 30 Days #90 tablet 01/01/19 [Rx] Aspirin 81 mg PO DAILY 01/28/19 [History] Capsaicin [Arthritis Pain Relief] 1 appl TP QID PRN 01/28/19 [History] Carboxymethylcellulos/Glycerin [Refresh Optive Gel Eye Drops] 1 drop BOTH EYES BID 01/28/19 [History] Duloxetine HCl [Cymbalta] 60 mg PO QAM 01/28/19 [History] Fluticasone Propionate Nasal [Flonase] 1 spray NS DAILY PRN 01/28/19 [History] Furosemide [Lasix] 20 mg PO BID 01/28/19 [History] Furosemide [Lasix] 40 mg PO BID 01/28/19 [History] Melatonin [Melatin] 9 mg PO HS 01/28/19 [History] Naloxone [Narcan] 4 mg NS AD 01/28/19 [History] OxyCODONE Immed Rel [Roxicodone 10 MG] 10 mg PO TID 01/28/19 [History] Pantoprazole Sodium [Protonix] 20 mg PO DAILY PRN 01/28/19 [History] Rivaroxaban [Xarelto] 20 mg PO QAM 01/28/19 [History] Sodium Chloride 2 spray NS Q2H PRN 01/28/19 [History] Allergies/Adverse Reactions: Allergy/AdvReac Type Severity Reaction Status Date / Time IVP DYE Allergy Severe Anaphylaxis Uncoded 01/28/19 11:02 Date of admission: 01/28/19 14:12 [facility] care [facility]: [facility] Consults: 01/28/19 11:35 Consult to Nurse Navigator [CONS] Routine Comment: chf Discharging clinician: Ani Orozco Anticipated date of discharge: 01/29/19 - Constitutional Vitals: Temp Pulse Resp BP Pulse Ox 98.0 F 73 19 128/85 94 01/29/19 07:22 01/29/19 07:22 01/29/19 07:22 01/29/19 07:22 01/29/19 07:22 General appearance: Present: cooperative, A&O X 3, pleasant, no acute distress, answers questions appropriately Exam: General: Patient is alert, no acute distress, oriented x 3 ENT: Mucous membranes moist Respiratory: Good respiratory effort. Normal breath sounds. No wheezing or crackles. Cardiovascular: Regular rate and rhythm. s1 and s2 normal No clicks, rubs, gallops, or murmurs. Pedal edema has mostly subsided. Abdomen: Abdomen is soft, nontender. Bowel sounds are present Musculoskeletal: Spontaneously moving all extremities Skin: warm, dry, intact. Neuro: Alert oriented x 3 normal cranial nerves, no focal deficits - Patient Status Disposition: Home Health Service Condition: Good Functional capacity at discharge: wheelchair bound Overall status at discharge: patient is progressing back to baseline - Discharge Instructions Instructions: Heart Failure (DC) Follow Up With: [facility] [Primary Care Provider] - (In 1 week) Additional Instructions: Please continue taking 40 mg Lasix twice daily until you follow up with your PCP - Diet and Activity Activity: increase activity as tolerated Diet: diabetic diet, low fat, low cholesterol, low salt diet, other (Fluid restriction to 1.5 L per day)
[2019-01-29 11:56] VITALS: BP 127/84
--- NOTE | 2019-01-29 14:22 | Physician Discharge Referral ---
Home Health/Hosp Referral Info Transfer to: Home Health Provider in Charge Post Discharge: PCP - Diagnosis (1) Acute on chronic diastolic (congestive) heart failure Priority: Primary Status: Acute (2) Sick sinus syndrome Priority: Secondary Status: Chronic (3) Adrenal insufficiency Priority: Secondary Status: Chronic (4) IDDM (insulin dependent diabetes mellitus) Priority: Secondary Status: Chronic (5) DVT prophylaxis Priority: Secondary Status: Acute - Respiratory Orders Oxygen / L per min Smoking Cessation: Smoking cessation has been advised. For more information, call the [place] Tobacco Quit Line at 4-791-STPM-NOW. - Diet/Nutrition Diet/Nutrition Orders: Cardiac Diet/Nutrition: List: Fluid restriction to 1.5 L per day - Activity Activity Orders: Walker - Services Needed Following services are medically necessary services: Nursing, Physical Therapy, Occupational Therapy Home Care Orders: Daily weights. Fluid restriction to 1.5 L per day. - Transfer Medications Home Medications: Insulin ASPART [NovoLOG] 0 unit SQ ACHS MDD PER SLIDING SCALE 04/25/18 [History] Acetaminophen [Tylenol] 650 mg PO Q6HR PRN MDD 3,000MG/24HRS 07/26/18 [History] Polyethylene Glycol 3350 [Natura-Lax] 17 gm PO DAILY PRN 08/27/18 [History] Simethicone [Gas-X] 80 mg PO TID PRN 08/27/18 [History] Trazodone HCl 200 mg PO HS 08/27/18 [History] Tizanidine HCl 2 mg PO BID PRN 09/17/18 [History] Albuterol Sulfate [Proair Hfa] 2 puff IH Q4H PRN 12/30/18 [History] Tiotropium [Spiriva] 1 puff IH DAILY 12/30/18 [History] Fludrocortisone Acetate [Florinef] 0.1 mg PO DAILY 30 Days #30 tablet 01/01/19 [Rx] Hydrocortisone [Cortef] 10 mg PO TID 30 Days #90 tablet 01/01/19 [Rx] Aspirin 81 mg PO DAILY 01/28/19 [History] Capsaicin [Arthritis Pain Relief] 1 appl TP QID PRN 01/28/19 [History] Carboxymethylcellulos/Glycerin [Refresh Optive Gel Eye Drops] 1 drop BOTH EYES BID 01/28/19 [History] Duloxetine HCl [Cymbalta] 60 mg PO QAM 01/28/19 [History] Fluticasone Propionate Nasal [Flonase] 1 spray NS DAILY PRN 01/28/19 [History] Furosemide [Lasix] 20 mg PO BID 01/28/19 [History] Furosemide [Lasix] 40 mg PO BID 01/28/19 [History] Melatonin [Melatin] 9 mg PO HS 01/28/19 [History] Naloxone [Narcan] 4 mg NS AD 01/28/19 [History] OxyCODONE Immed Rel [Roxicodone 10 MG] 10 mg PO TID 01/28/19 [History] Pantoprazole Sodium [Protonix] 20 mg PO DAILY PRN 01/28/19 [History] Rivaroxaban [Xarelto] 20 mg PO QAM 01/28/19 [History] Sodium Chloride 2 spray NS Q2H PRN 01/28/19 [History] Allergies/Adverse Reactions: Allergy/AdvReac Type Severity Reaction Status Date / Time IVP DYE Allergy Severe Anaphylaxis Uncoded 01/28/19 11:02 Certification: Further, I certify that my clinical findings support that this patient is homebound (i.e. absences from home require considerable and taxing effort and are for medical reasons or evangelical services or infrequently or short duration when for other reasons) because: Homebound Reason: Patient requires assistance of a person or device to safely leave home Attestation: My signature below is to certify that this patient is under my care and that I, or nurse practitioner, or a physician's home care assistant working with me, has a [id number] encounter with this patient.
== END 2019-01-29 17:25 | disposition home health service (06) | DRG 291 ==
LOC: EMEROOARM 19:38 → 2ANU 19:38
PROVIDERS: ADMIT Family Medicine; ATTEND Family Medicine

== ENCOUNTER 2019-06-26 14:09 | Inpatient (IN) ==
[2019-06-26] MEDS ORDERED: 0.9 % Sodium Chloride 1,000 ML IVC ONE (14:16)
[2019-06-26] MEDS ORDERED: Hydrocortisone Sodium Succ 100 MG/2 ML VIAL IVP ONE (14:31)
[2019-06-26 14:42] LABS: Basophils # 0.1 K/mcL (0.0-0.2); Basophils % 0.7 %; Eosinophils # 0.2 K/mcL (0.0-0.6); Eosinophils % 2.7 %; Hematocrit 46.1 % (37.5-50.1); Hemoglobin 14.1 g/dL (12.9-16.9); Immature Granulocytes % 2.1 % (0-4); Lymphocytes # 1.2 K/mcL (0.6-4.6); Mean Corpuscular HGB Conc 30.6 g/dL (31.6-35.5); Mean Corpuscular Hemoglobin 26.7 pg (28.0-33.3); Mean Corpuscular Volume 87.3 fL (83.0-100.0); Mean Platelet Volume 9.7 fL (9.4-12.4); Platelet Count 204 K/mcL (140-400); Red Blood Count 5.28 M/mcL (4.19-5.50); Red Cell Distribution Width 20.2 % (11.5-14.5); Segmented Neutrophils % 69.5 %; White Blood Count 8.7 K/mcL (4.3-11.1)
[2019-06-26] MEDS ORDERED: 0.9 % Sodium Chloride 500 ML IVC ONE (15:00)
[2019-06-26 15:04] LABS: Alanine Aminotransferase 72 Units/L (7-52); Albumin 3.2 g/dL (3.5-5.7); Albumin/Globulin Ratio 1.3 (1.1-2.2); Alkaline Phosphatase 72 Units/L (34-104); Aspartate Amino Transferase 23 Units/L (13-39); BUN/Creatinine Ratio 22 (6-26); Bilirubin,Direct 0.1 mg/dL (0.0-0.2); Bilirubin,Indirect 0.2 mg/dL (0.0-1.0); Bilirubin,Total 0.3 mg/dL (0.3-1.0); Blood Urea Nitrogen 30 mg/dL (8-23); Carbon Dioxide 29 mEq/L (23-29); Chloride 107 mEq/L (98-107); Globulin 2.4 g/dL (2.4-3.5); Glucose 96 mg/dL (70-105); Osmolality,Calculated 296 (280-300); Sodium 140 mEq/L (136-145); Total Protein 5.6 g/dL (6.4-8.9); eGFR For African Americans > 60 (> 60); eGFR For Non-African Americans 52 (> 60)
[2019-06-26 15:05] LABS: Troponin I < 0.03 ng/mL (< 0.04)
[2019-06-26 15:18] LABS: Thyroid Stimulating Hormone 2.691 mcIU/mL (0.340-5.600)
[2019-06-26] MEDS ORDERED: cefTRIAXone 1,000 MG in 0.9 % Sodium Chloride Mini Bag 100 ML IVPB ONE (17:08)
[2019-06-26 17:23] LABS: Bilirubin,Urine Negative (Negative); Blood,Urine Negative (Negative); Clarity,Urine Clear (Clear); Color,Urine Yellow (Yellow); Glucose,Urine (UA) Normal (Normal); Ketones,Urine Negative (Negative); Leukocyte Esterase,Urine Negative (Negative); Nitrite,Urine Negative (Negative); Protein,Urine Negative (Neg-Trace); Specific Gravity,Urine 1.027 (1.010-1.025); Urobilinogen,Urine Normal (Normal)
[2019-06-26] MEDS ORDERED: Naloxone 0.4 MG/ML INJ IVP PRN (17:39)
[2019-06-26] MEDS ORDERED: Ondansetron 4 MG/2 ML VIAL IVP PRN (17:39)
[2019-06-26] MEDS ORDERED: Simethicone 80 MG TAB.CHEW PO PRN (17:52)
[2019-06-26] MEDS: Hydrocortisone Sodium Succ 100 MG/2 ML VIAL IVP SCH (23:11)
[2019-06-26] MEDS: traZODone 50 MG TABLET PO SCH (23:11)
[2019-06-26] MEDS: Melatonin 3 MG TABLET PO SCH (23:11)
[2019-06-27 01:29] LABS: Basophils % 0.5 %; Eosinophils # 0.1 K/mcL (0.0-0.6); Eosinophils % 1.3 %; Hematocrit 41.2 % (37.5-50.1); Hemoglobin 12.7 g/dL (12.9-16.9); Immature Granulocytes % 1.6 % (0-4); Lymphocytes # 0.7 K/mcL (0.6-4.6); Mean Corpuscular HGB Conc 30.8 g/dL (31.6-35.5); Mean Corpuscular Hemoglobin 26.7 pg (28.0-33.3); Mean Corpuscular Volume 86.7 fL (83.0-100.0); Mean Platelet Volume 9.6 fL (9.4-12.4); Monocytes # 0.7 K/mcL (0.0-1.3); Monocytes % 8.8 %; Platelet Count 174 K/mcL (140-400); Red Blood Count 4.75 M/mcL (4.19-5.50); Red Cell Distribution Width 20.1 % (11.5-14.5); Segmented Neutrophils % 78.8 %; White Blood Count 7.6 K/mcL (4.3-11.1)
[2019-06-27 02:25] LABS: Alanine Aminotransferase 70 Units/L (7-52); Albumin 2.9 g/dL (3.5-5.7); Albumin/Globulin Ratio 1.5 (1.1-2.2); Alkaline Phosphatase 60 Units/L (34-104); Aspartate Amino Transferase 31 Units/L (13-39); BUN/Creatinine Ratio 24 (6-26); Bilirubin,Direct 0.1 mg/dL (0.0-0.2); Bilirubin,Indirect 0.2 mg/dL (0.0-1.0); Bilirubin,Total 0.3 mg/dL (0.3-1.0); Blood Urea Nitrogen 26 mg/dL (8-23); Calcium 7.6 mg/dL (8.6-10.3); Carbon Dioxide 23 mEq/L (23-29); Chloride 109 mEq/L (98-107); Glucose 103 mg/dL (70-105); Osmolality,Calculated 291 (280-300); Potassium 4.7 mEq/L (3.5-5.1); Sodium 138 mEq/L (136-145); Total Protein 4.9 g/dL (6.4-8.9); Troponin I < 0.03 ng/mL (< 0.04); eGFR For African Americans > 60 (> 60); eGFR For Non-African Americans > 60 (> 60)
[2019-06-27] MEDS: Hydrocortisone Sodium Succ 100 MG/2 ML VIAL IVP SCH ×3 (05:31→21:03)
[2019-06-27] MEDS: Tiotropium 18 MCG inhalation IH SCH (07:17)
[2019-06-27] MEDS: Albumin 25% 12.5gm/50mL 12.5 GM/50 ML IV.SOLN IVPB SCH ×2 (09:20→14:55)
[2019-06-27] MEDS: *HR* Rivaroxaban 10 MG TABLET PO SCH (09:26)
[2019-06-27] MEDS: Aspirin 81 MG TAB.CHEW PO SCH (09:26)
[2019-06-27] MEDS ORDERED: Perflutren Lipid Microsphere 1.3 ML in 0.9 % Sodium Chloride 8.7 ML IVP ONE (10:40)
[2019-06-27] MEDS ORDERED: Nitroglycerin 0.4 MG TAB.SUBL SL PRN (14:26)
[2019-06-27] MEDS: Gabapentin 400 MG CAPSULE PO SCH ×2 (14:54→21:02)
[2019-06-27] MEDS: Melatonin 3 MG TABLET PO SCH (21:02)
[2019-06-27] MEDS: traZODone 50 MG TABLET PO SCH (21:02)
[2019-06-28] MEDS: Albumin 25% 12.5gm/50mL 12.5 GM/50 ML IV.SOLN IVPB SCH (00:16)
[2019-06-28] MEDS: Hydrocortisone Sodium Succ 100 MG/2 ML VIAL IVP SCH (04:23)
[2019-06-28 05:24] LABS: Hemoglobin 12.1 g/dL (12.9-16.9); Mean Corpuscular HGB Conc 30.3 g/dL (31.6-35.5); Mean Corpuscular Hemoglobin 26.9 pg (28.0-33.3); Mean Corpuscular Volume 88.9 fL (83.0-100.0); Mean Platelet Volume 9.7 fL (9.4-12.4); Platelet Count 176 K/mcL (140-400); White Blood Count 8.1 K/mcL (4.3-11.1)
[2019-06-28 05:44] LABS: Alanine Aminotransferase 47 Units/L (7-52); Albumin 3.2 g/dL (3.5-5.7); Albumin/Globulin Ratio 1.5 (1.1-2.2); Alkaline Phosphatase 62 Units/L (34-104); Aspartate Amino Transferase 12 Units/L (13-39); BUN/Creatinine Ratio 23 (6-26); Bilirubin,Indirect 0.2 mg/dL (0.0-1.0); Bilirubin,Total 0.2 mg/dL (0.3-1.0); Blood Urea Nitrogen 26 mg/dL (8-23); Calcium 8.4 mg/dL (8.6-10.3); Carbon Dioxide 27 mEq/L (23-29); Chloride 108 mEq/L (98-107); Globulin 2.1 g/dL (2.4-3.5); Glucose 149 mg/dL (70-105); Osmolality,Calculated 306 (280-300); Potassium 3.8 mEq/L (3.5-5.1); Sodium 144 mEq/L (136-145); Total Protein 5.3 g/dL (6.4-8.9); eGFR For African Americans > 60 (> 60); eGFR For Non-African Americans > 60 (> 60)
[2019-06-28] MEDS: Tiotropium 18 MCG inhalation IH SCH (08:28)
[2019-06-28] MEDS ORDERED: NON-FORMULARY MEDICATION 1 EACH EACH (Tiotropium Br/Olodaterol Hcl [Stiolto Respimat Inhal IH SCH (09:00)
[2019-06-28] MEDS ORDERED: Metoprolol XL (24 HR) Succ 25 MG TAB.ER.24H PO SCH (09:00)
[2019-06-28] MEDS: *HR* Rivaroxaban 10 MG TABLET PO SCH (09:19)
[2019-06-28] MEDS: Gabapentin 400 MG CAPSULE PO SCH ×3 (09:19→20:19)
[2019-06-28] MEDS: *HR* Amiodarone 200 MG TABLET PO SCH (09:20)
[2019-06-28] MEDS: Furosemide 40 MG/4 ML VIAL IVP SCH ×2 (09:20→16:24)
[2019-06-28] MEDS: Hydrocortisone 10 MG TABLET PO SCH ×3 (09:20→20:19)
[2019-06-28] MEDS: Aspirin 81 MG TAB.CHEW PO SCH (09:20)
[2019-06-28] MEDS ORDERED: *HR* Dextrose 50 % in Water (Syg) 50 ML SYRINGE IVP PRN (11:01)
[2019-06-28] MEDS ORDERED: Dextrose Gel 15 GM/37.5 ML TUBE PO PRN ×2 (11:01)
[2019-06-28] MEDS ORDERED: D5% in Water 1,000 ML IVC PRN (11:01)
[2019-06-28] MEDS: Insulin LISPRO 300 UNITS/3 ML VIAL SQ SCH ×3 (12:25→20:19)
[2019-06-28] MEDS: traZODone 50 MG TABLET PO SCH (20:19)
[2019-06-28] MEDS: Melatonin 3 MG TABLET PO SCH (20:19)
[2019-06-29 06:39] LABS: Hematocrit 40.5 % (37.5-50.1); Hemoglobin 12.9 g/dL (12.9-16.9); Mean Corpuscular HGB Conc 31.9 g/dL (31.6-35.5); Mean Corpuscular Hemoglobin 26.8 pg (28.0-33.3); Mean Corpuscular Volume 84.2 fL (83.0-100.0); Mean Platelet Volume 9.7 fL (9.4-12.4); Platelet Count 180 K/mcL (140-400); Red Blood Count 4.81 M/mcL (4.19-5.50); White Blood Count 7.5 K/mcL (4.3-11.1)
[2019-06-29 07:01] LABS: BUN/Creatinine Ratio 23 (6-26); Blood Urea Nitrogen 26 mg/dL (8-23); Calcium 8.3 mg/dL (8.6-10.3); Carbon Dioxide 31 mEq/L (23-29); Chloride 101 mEq/L (98-107); Glucose 102 mg/dL (70-105); Osmolality,Calculated 301 (280-300); Potassium 3.5 mEq/L (3.5-5.1); Sodium 143 mEq/L (136-145); eGFR For African Americans > 60 (> 60); eGFR For Non-African Americans > 60 (> 60)
[2019-06-29] MEDS: Tiotropium 18 MCG inhalation IH SCH (07:33)
[2019-06-29] MEDS: Hydrocortisone 10 MG TABLET PO SCH ×3 (09:22→21:25)
[2019-06-29] MEDS: *HR* Rivaroxaban 10 MG TABLET PO SCH (09:22)
[2019-06-29] MEDS: *HR* Amiodarone 200 MG TABLET PO SCH (09:22)
[2019-06-29] MEDS: Gabapentin 400 MG CAPSULE PO SCH ×3 (09:22→21:25)
[2019-06-29] MEDS: Furosemide 40 MG/4 ML VIAL IVP SCH ×2 (09:22→15:32)
[2019-06-29] MEDS: Aspirin 81 MG TAB.CHEW PO SCH (09:22)
[2019-06-29] MEDS: Insulin LISPRO 300 UNITS/3 ML VIAL SQ SCH ×4 (09:23→21:21)
[2019-06-29] MEDS: Acetaminophen 325 MG TABLET PO PRN ×2 (12:16→21:25)
[2019-06-29] MEDS: traZODone 50 MG TABLET PO SCH (21:15)
[2019-06-29] MEDS: Melatonin 3 MG TABLET PO SCH (21:26)
[2019-06-30] MEDS: traZODone 50 MG TABLET PO SCH (01:07)
[2019-06-30 04:05] VITALS: BP 111/72
[2019-06-30] MEDS: Tiotropium 18 MCG inhalation IH SCH (07:49)
[2019-06-30] MEDS: Insulin LISPRO 300 UNITS/3 ML VIAL SQ SCH (08:09)
[2019-06-30] MEDS: Gabapentin 400 MG CAPSULE PO SCH (09:38)
[2019-06-30] MEDS: *HR* Amiodarone 200 MG TABLET PO SCH (09:38)
[2019-06-30] MEDS: Hydrocortisone 10 MG TABLET PO SCH (09:38)
[2019-06-30] MEDS: Furosemide 40 MG/4 ML VIAL IVP SCH (09:38)
[2019-06-30] MEDS: *HR* Rivaroxaban 10 MG TABLET PO SCH (09:38)
[2019-06-30] MEDS: Aspirin 81 MG TAB.CHEW PO SCH (09:38)
== END 2019-06-30 12:39 | disposition home health service (06) | DRG 312 ==
LOC: EMEROOARM 14:09 → 3BNU 14:09 → 2NENU 17:57 → 3BNU 18:15 → SUATTDRO 06-27 11:17
PROVIDERS: ADMIT Internal Medicine; ATTEND Internal Medicine

== ENCOUNTER 2019-07-06 16:21 | Observation (INO) ==
[2019-07-06 17:16] LABS: Prothrombin Time 11.7 Seconds (9.4-12.1)
[2019-07-06 17:29] LABS: Basophils # 0.1 K/mcL (0.0-0.2); Basophils % 1.2 %; Eosinophils # 0.2 K/mcL (0.0-0.6); Eosinophils % 4.1 %; Hematocrit 43.5 % (37.5-50.1); Hemoglobin 13.3 g/dL (12.9-16.9); Immature Granulocytes % 1.7 % (0-4); Lymphocytes # 1.2 K/mcL (0.6-4.6); Lymphocytes % 24.1 %; Mean Corpuscular HGB Conc 30.6 g/dL (31.6-35.5); Mean Corpuscular Hemoglobin 26.9 pg (28.0-33.3); Mean Corpuscular Volume 88.1 fL (83.0-100.0); Mean Platelet Volume 9.3 fL (9.4-12.4); Monocytes # 0.7 K/mcL (0.0-1.3); Monocytes % 13.5 %; Neutrophils # 2.7 K/mcL (1.6-8.9); Platelet Count 173 K/mcL (140-400); Red Blood Count 4.94 M/mcL (4.19-5.50); Red Cell Distribution Width 20.1 % (11.5-14.5); Segmented Neutrophils % 55.4 %; White Blood Count 4.8 K/mcL (4.3-11.1)
[2019-07-06 18:39] LABS: Alanine Aminotransferase 38 Units/L (7-52); Albumin 3.4 g/dL (3.5-5.7); Albumin/Globulin Ratio 1.4 (1.1-2.2); Alkaline Phosphatase 82 Units/L (34-104); Aspartate Amino Transferase 20 Units/L (13-39); BUN/Creatinine Ratio 17 (6-26); Bilirubin,Indirect 0.3 mg/dL (0.0-1.0); Bilirubin,Total 0.3 mg/dL (0.3-1.0); Blood Urea Nitrogen 23 mg/dL (8-23); Calcium 8.8 mg/dL (8.6-10.3); Carbon Dioxide 27 mEq/L (23-29); Chloride 104 mEq/L (98-107); Globulin 2.5 g/dL (2.4-3.5); Glucose 137 mg/dL (70-105); Osmolality,Calculated 294 (280-300); Potassium 4.3 mEq/L (3.5-5.1); Sodium 139 mEq/L (136-145); Total Protein 5.9 g/dL (6.4-8.9); eGFR For African Americans > 60 (> 60); eGFR For Non-African Americans 52 (> 60)
[2019-07-06] MEDS ORDERED: Furosemide 40 MG/4 ML VIAL IVP ONE (18:40)
[2019-07-06] MEDS ORDERED: Naloxone 0.4 MG/ML INJ IVP PRN (21:32)
[2019-07-07] MEDS ORDERED: Ipratropium/Albuterol Neb 3 ML IH PRN (05:11)
[2019-07-07] MEDS ORDERED: Nitroglycerin 0.4 MG TAB.SUBL SL PRN (05:11)
[2019-07-07] MEDS ORDERED: Fluticasone Propionate Nasal 50 MCG/SPRAY BOTTLE NS PRN (05:11)
[2019-07-07] MEDS ORDERED: *HR* Dextrose 50 % in Water (Syg) 50 ML SYRINGE IVP PRN (05:15)
[2019-07-07] MEDS ORDERED: Dextrose Gel 15 GM/37.5 ML TUBE PO PRN ×2 (05:15)
[2019-07-07] MEDS ORDERED: D5% in Water 1,000 ML IVC PRN (05:15)
[2019-07-07] MEDS ORDERED: Simethicone 80 MG TAB.CHEW PO PRN (07:11)
[2019-07-07] MEDS ORDERED: Acetaminophen 325 MG TABLET PO PRN (07:11)
[2019-07-07] MEDS ORDERED: tiZANidine 4 MG TABLET PO PRN (07:11)
[2019-07-07] MEDS ORDERED: Artificial Tears SOLN 15 ML BOTTLE BOTH EYES PRN (07:11)
[2019-07-07] MEDS: Furosemide 40 MG/4 ML VIAL IVP SCH ×2 (07:50→20:11)
[2019-07-07] MEDS: *HR* OxyCODONE Immed Rel 5 MG TABLET PO SCH ×4 (07:50→23:43)
[2019-07-07] MEDS: Aspirin 81 MG TAB.CHEW PO SCH (07:50)
[2019-07-07] MEDS: *HR* Rivaroxaban 10 MG TABLET PO SCH (07:50)
[2019-07-07] MEDS: Gabapentin 400 MG CAPSULE PO SCH ×3 (07:50→20:08)
[2019-07-07] MEDS: Cholecalciferol (D-3) 1,000 UNIT (25MCG) TABLET PO SCH (07:51)
[2019-07-07] MEDS: Hydrocortisone 10 MG TABLET PO SCH ×3 (07:51→20:08)
[2019-07-07] MEDS: *HR* Amiodarone 200 MG TABLET PO SCH (07:51)
[2019-07-07] MEDS: Insulin LISPRO 300 UNITS/3 ML VIAL SQ SCH ×3 (08:35→17:30)
[2019-07-07 09:11] LABS: Basophils # 0.1 K/mcL (0.0-0.2); Basophils % 1.1 %; Eosinophils # 0.3 K/mcL (0.0-0.6); Eosinophils % 5.1 %; Hematocrit 46.4 % (37.5-50.1); Immature Granulocytes % 1.3 % (0-4); Lymphocytes # 1.2 K/mcL (0.6-4.6); Lymphocytes % 21.3 %; Mean Corpuscular HGB Conc 30.2 g/dL (31.6-35.5); Mean Corpuscular Hemoglobin 27.5 pg (28.0-33.3); Mean Platelet Volume 10.6 fL (9.4-12.4); Monocytes # 0.6 K/mcL (0.0-1.3); Monocytes % 10.5 %; Platelet Count 134 K/mcL (140-400); Segmented Neutrophils % 60.7 %; White Blood Count 5.5 K/mcL (4.3-11.1)
[2019-07-07 09:43] LABS: Neutrophils # 3.3 K/mcL (1.6-8.9)
[2019-07-07 09:56] LABS: Alanine Aminotransferase 39 Units/L (7-52); Albumin 3.4 g/dL (3.5-5.7); Albumin/Globulin Ratio 1.2 (1.1-2.2); Alkaline Phosphatase 88 Units/L (34-104); Aspartate Amino Transferase 22 Units/L (13-39); BUN/Creatinine Ratio 17 (6-26); Bilirubin,Total 0.3 mg/dL (0.3-1.0); Blood Urea Nitrogen 22 mg/dL (8-23); Calcium 8.7 mg/dL (8.6-10.3); Carbon Dioxide 25 mEq/L (23-29); Chloride 101 mEq/L (98-107); Globulin 2.8 g/dL (2.4-3.5); Glucose 97 mg/dL (70-105); Osmolality,Calculated 293 (280-300); Potassium 3.8 mEq/L (3.5-5.1); Sodium 140 mEq/L (136-145); Total Protein 6.2 g/dL (6.4-8.9); eGFR For African Americans > 60 (> 60); eGFR For Non-African Americans 55 (> 60)
[2019-07-07] MEDS ORDERED: metOLazone 2.5 MG TABLET PO SCH (10:27)
[2019-07-07] MEDS ORDERED: *HR* Midazolam HCl 2 MG/2 ML VIAL ONE (12:03)
[2019-07-07] MEDS ORDERED: *HR* FentaNYL (PF) 100 MCG/2 ML VIAL ONE (12:03)
[2019-07-07] MEDS: traZODone 50 MG TABLET PO SCH (20:09)
[2019-07-07] MEDS ORDERED: Melatonin 3 MG TABLET PO SCH (21:00)
[2019-07-07] MEDS ORDERED: Insulin DETEMIR 100 UNIT/ML X5UNITS SQ SCH (21:00)
[2019-07-08 04:38] LABS: Hematocrit 43.6 % (37.5-50.1); Hemoglobin 13.5 g/dL (12.9-16.9); Mean Corpuscular Hemoglobin 26.6 pg (28.0-33.3); Mean Corpuscular Volume 85.8 fL (83.0-100.0); Mean Platelet Volume 9.7 fL (9.4-12.4); Platelet Count 194 K/mcL (140-400); Red Blood Count 5.08 M/mcL (4.19-5.50); Red Cell Distribution Width 19.6 % (11.5-14.5); White Blood Count 4.8 K/mcL (4.3-11.1)
[2019-07-08 05:02] LABS: Calcium 8.7 mg/dL (8.6-10.3); Magnesium 2.1 mg/dL (1.6-2.6); Potassium 3.6 mEq/L (3.5-5.1)
[2019-07-08] MEDS: Insulin LISPRO 300 UNITS/3 ML VIAL SQ SCH (07:36)
[2019-07-08] MEDS: *HR* OxyCODONE Immed Rel 5 MG TABLET PO SCH (07:36)
[2019-07-08 08:26] VITALS: BP 115/75
[2019-07-08] MEDS ORDERED: metOLazone 2.5 MG TABLET PO SCH (08:30)
[2019-07-08] MEDS ORDERED: Hydrocortisone 10 MG TABLET PO SCH (08:30)
[2019-07-08] MEDS: Gabapentin 400 MG CAPSULE PO SCH (09:00)
[2019-07-08] MEDS ORDERED: Furosemide 40 MG/4 ML VIAL IVP SCH (09:00)
[2019-07-08] MEDS: *HR* Rivaroxaban 10 MG TABLET PO SCH (09:00)
[2019-07-08] MEDS: Aspirin 81 MG TAB.CHEW PO SCH (09:01)
[2019-07-08] MEDS: *HR* Amiodarone 200 MG TABLET PO SCH (09:01)
[2019-07-08] MEDS: Cholecalciferol (D-3) 1,000 UNIT (25MCG) TABLET PO SCH (09:01)
[2019-07-08] MEDS ORDERED: Acetaminophen 325 MG TABLET PO PRN (10:00)
[2019-07-08] MEDS ORDERED: *HR* OxyCODONE Immed Rel 5 MG TABLET PO PRN (10:01)
== END 2019-07-08 12:24 | disposition home health service (06) ==
LOC: EMEROOARM 16:21 → 2ANU 16:21 → SUATTDRO 20:11 → 2ANU 21:01
PROVIDERS: ADMIT Internal Medicine; ATTEND Internal Medicine

== ENCOUNTER 2020-08-25 13:04 | Inpatient (IN) ==
[2020-08-25 14:16] LABS: Basophils % 0.2 %; Eosinophils % 0.1 %; Hematocrit 51.5 % (37.5-50.1); Immature Granulocytes % 0.8 % (0-4); Lymphocytes # 0.7 K/mcL (0.6-4.6); Lymphocytes % 3.9 %; Mean Corpuscular Hemoglobin 29.1 pg (28.0-33.3); Mean Corpuscular Volume 83.3 fL (83.0-100.0); Mean Platelet Volume 9.9 fL (9.4-12.4); Monocytes # 1.6 K/mcL (0.0-1.3); Monocytes % 8.4 %; Neutrophils # 16.1 K/mcL (1.6-8.9); Platelet Count 329 K/mcL (140-400); Red Blood Count 6.18 M/mcL (4.19-5.50); Red Cell Distribution Width 13.9 % (11.5-14.5); Segmented Neutrophils % 86.6 %; White Blood Count 18.6 K/mcL (4.3-11.1)
[2020-08-25] MEDS ORDERED: 0.9 % Sodium Chloride 1,000 ML IVC ONE (14:18)
[2020-08-25 14:31] LABS: Albumin 4.3 g/dL (3.5-5.7); Albumin/Globulin Ratio 1.2 (1.1-2.2); Bilirubin,Total 0.8 mg/dL (0.3-1.0); Calcium 10.1 mg/dL (8.6-10.3); Globulin 3.7 g/dL (2.4-3.5); Potassium 2.3 mEq/L (3.5-5.1); Troponin I 0.03 ng/mL (< 0.04)
[2020-08-25] MEDS ORDERED: Potassium Chloride Elixir 20 MEQ/15 ML UDC PO ONE (14:36)
[2020-08-25] MEDS ORDERED: cefTRIAXone 1,000 MG in Water for inj. (sterile) 10 ML IVP ONE (14:37)
[2020-08-25] MEDS ORDERED: 0.9 % Sodium Chloride 1,000 ML ONE (16:01)
[2020-08-25 16:02] LABS: Magnesium 2.5 mg/dL (1.6-2.6)
[2020-08-25 16:17] LABS: Bilirubin,Urine Negative (Negative); Blood,Urine Negative (Negative); Clarity,Urine Clear (Clear); Color,Urine Light-Yellow (Yellow); Glucose,Urine (UA) Normal (Normal); Ketones,Urine Negative (Negative); Leukocyte Esterase,Urine Negative (Negative); Nitrite,Urine Negative (Negative); Protein,Urine Negative (Neg-Trace); Specific Gravity,Urine 1.009 (1.010-1.025); Urobilinogen,Urine Normal (Normal)
[2020-08-25] MEDS ORDERED: Naloxone 0.4 MG/ML INJ IVP PRN (16:40)
[2020-08-25] MEDS ORDERED: Ipratropium/Albuterol Neb 3 ML IH PRN (16:44)
[2020-08-25] MEDS ORDERED: 0.9 % Sodium Chloride w KCl 40 MEQ/1,000 ML MLS IVC SCH (16:45)
[2020-08-25] MEDS ORDERED: *HR* Dextrose 50 % in Water (Vial) 50 ML VIAL IVP PRN (16:46)
[2020-08-25] MEDS ORDERED: Dextrose Gel 15 GM/37.5 ML TUBE PO PRN ×2 (16:46)
[2020-08-25] MEDS ORDERED: D5% in Water 1,000 ML IVC PRN (16:46)
[2020-08-25] MEDS ORDERED: Nitroglycerin 0.4 MG TAB.SUBL SL PRN (16:50)
[2020-08-25] MEDS ORDERED: Simethicone 80 MG TAB.CHEW PO PRN (16:50)
[2020-08-25 18:00] LABS: ABG Base Excess 15 mEq/L (-2 to 3); ABG HCO3 40 mEq/L (21-27); ABG Oxygen Saturation 97 % (95-98); ABG PCO2 45 mmHg (35-45); ABG PH 7.56 pH Units (7.32-7.45); ABG PO2 78 mmHg (85-104); ABG TCO2 42 mEq/L (20-26)
[2020-08-25] MEDS ORDERED: Doxycycline 100 MG in 0.9 % Sodium Chloride Mini Bag 100 ML IVPB SCH (18:00)
[2020-08-25] MEDS: Hydrocortisone 10 MG TABLET PO SCH (20:06)
[2020-08-25] MEDS: Melatonin 3 MG TABLET PO SCH (20:06)
[2020-08-25] MEDS: Doxycycline 100 MG in 0.9 % Sodium Chloride Mini Bag 100 ML IVPB SCH (20:38)
[2020-08-25 20:55] LABS: Calcium 9.5 mg/dL (8.6-10.3); Potassium 2.5 mEq/L (3.5-5.1)
[2020-08-26 02:23] LABS: Basophils # 0.1 K/mcL (0.0-0.2); Basophils % 0.3 %; Eosinophils # 0.1 K/mcL (0.0-0.6); Eosinophils % 0.5 %; Hematocrit 52.1 % (37.5-50.1); Hemoglobin 17.9 g/dL (12.9-16.9); Lymphocytes # 1.3 K/mcL (0.6-4.6); Lymphocytes % 5.5 %; Mean Corpuscular HGB Conc 34.4 g/dL (31.6-35.5); Mean Corpuscular Hemoglobin 28.5 pg (28.0-33.3); Mean Corpuscular Volume 82.8 fL (83.0-100.0); Mean Platelet Volume 9.7 fL (9.4-12.4); Monocytes # 2.7 K/mcL (0.0-1.3); Monocytes % 11.4 %; Neutrophils # 19.3 K/mcL (1.6-8.9); Platelet Count 305 K/mcL (140-400); Red Blood Count 6.29 M/mcL (4.19-5.50); Red Cell Distribution Width 14.1 % (11.5-14.5); Segmented Neutrophils % 81.3 %; White Blood Count 23.7 K/mcL (4.3-11.1)
[2020-08-26] MEDS: Ondansetron 4 MG/2 ML VIAL IVP PRN (02:28)
[2020-08-26 03:29] LABS: Thyroid Stimulating Hormone 0.889 mcIU/mL (0.340-5.600)
[2020-08-26 04:15] LABS: Estimated Average Glucose 157 mg/dl; Hemoglobin A1C 7.1 %
[2020-08-26] MEDS: Doxycycline 100 MG in 0.9 % Sodium Chloride Mini Bag 100 ML IVPB SCH ×2 (05:40→17:38)
[2020-08-26 06:45] LABS: Calcium 9.5 mg/dL (8.6-10.3); Magnesium 2.4 mg/dL (1.6-2.6); Phosphorous 2.9 mg/dL (2.7-4.5)
[2020-08-26] MEDS ORDERED: levoFLOXacin 750 MG/150 ML 750 MG/150 ML BAG IVPB SCH (09:00)
[2020-08-26] MEDS: *HR* Amiodarone 200 MG TABLET PO SCH (09:42)
[2020-08-26] MEDS: Piperacillin/Tazobactam 3.375 GM in 0.9 % Sodium Chloride Mini Bag 100 ML IVPB SCH ×3 (09:42→23:28)
[2020-08-26] MEDS: Hydrocortisone 10 MG TABLET PO SCH ×3 (09:42→20:09)
[2020-08-26] MEDS: Insulin LISPRO 300 UNITS/3 ML VIAL SUBQ SCH ×3 (09:43→16:45)
[2020-08-26] MEDS ORDERED: Potassium Chloride 40 MEQ, Lidocaine 1% 2 ML in 0.9 % Sodium Chloride 500 ML IVPB ONE (15:16)
[2020-08-26] MEDS: *HR* Rivaroxaban 10 MG TABLET PO SCH (16:29)
[2020-08-26 16:59] LABS: Calcium 9.7 mg/dL (8.6-10.3); Potassium 2.4 mEq/L (3.5-5.1)
[2020-08-26] MEDS: 0.9 % Sodium Chloride w KCl 40 MEQ/1,000 ML MLS IVC SCH (19:12)
[2020-08-26] MEDS: *HR* HYDROcodone/Acet 5/325 mg TABLET PO PRN (20:08)
[2020-08-26] MEDS: Melatonin 3 MG TABLET PO SCH (20:09)
[2020-08-26 20:43] LABS: Calcium 9.1 mg/dL (8.6-10.3); Potassium 2.8 mEq/L (3.5-5.1)
[2020-08-27 01:53] LABS: Calcium 9.4 mg/dL (8.6-10.3); Potassium 2.6 mEq/L (3.5-5.1)
[2020-08-27] MEDS ORDERED: Potassium Chloride 40 MEQ, Lidocaine 1% 2 ML in 0.9 % Sodium Chloride 500 ML IVPB ONE ×2 (03:56→07:32)
[2020-08-27] MEDS: Doxycycline 100 MG in 0.9 % Sodium Chloride Mini Bag 100 ML IVPB SCH ×2 (05:01→18:18)
[2020-08-27 05:21] LABS: Basophils # 0.1 K/mcL (0.0-0.2); Basophils % 0.5 %; Eosinophils # 0.2 K/mcL (0.0-0.6); Eosinophils % 1.1 %; Hematocrit 51.3 % (37.5-50.1); Hemoglobin 16.9 g/dL (12.9-16.9); Immature Granulocytes % 0.8 % (0-4); Lymphocytes # 1.6 K/mcL (0.6-4.6); Lymphocytes % 10.3 %; Mean Corpuscular HGB Conc 32.9 g/dL (31.6-35.5); Mean Corpuscular Hemoglobin 28.6 pg (28.0-33.3); Mean Corpuscular Volume 86.9 fL (83.0-100.0); Mean Platelet Volume 9.3 fL (9.4-12.4); Monocytes # 1.9 K/mcL (0.0-1.3); Neutrophils # 11.7 K/mcL (1.6-8.9); Platelet Count 259 K/mcL (140-400); Red Cell Distribution Width 13.9 % (11.5-14.5); Segmented Neutrophils % 75.3 %; White Blood Count 15.5 K/mcL (4.3-11.1)
[2020-08-27 05:54] LABS: Calcium 9.1 mg/dL (8.6-10.3); Magnesium 2.2 mg/dL (1.6-2.6); Potassium 2.6 mEq/L (3.5-5.1); Thyroid Stimulating Hormone 1.502 mcIU/mL (0.340-5.600)
[2020-08-27] MEDS: Insulin LISPRO 300 UNITS/3 ML VIAL SUBQ SCH ×3 (07:22→16:06)
[2020-08-27] MEDS: Ondansetron 4 MG/2 ML VIAL IVP PRN (08:07)
[2020-08-27] MEDS: *HR* Amiodarone 200 MG TABLET PO SCH (08:07)
[2020-08-27] MEDS: Piperacillin/Tazobactam 3.375 GM in 0.9 % Sodium Chloride Mini Bag 100 ML IVPB SCH ×3 (08:07→23:38)
[2020-08-27] MEDS: Hydrocortisone 10 MG TABLET PO SCH ×3 (08:07→20:00)
[2020-08-27] MEDS: *HR* HYDROcodone/Acet 5/325 mg TABLET PO PRN (08:07)
[2020-08-27] MEDS: 0.9 % Sodium Chloride w KCl 40 MEQ/1,000 ML MLS IVC SCH ×2 (08:09→20:07)
[2020-08-27 09:02] LABS: Calcium 9.1 mg/dL (8.6-10.3)
[2020-08-27] MEDS: Morphine Sulfate 2 MG/ML SYRINGE IVP PRN ×2 (11:40→15:58)
[2020-08-27 17:32] LABS: Calcium 9.2 mg/dL (8.6-10.3); Potassium 3.1 mEq/L (3.5-5.1)
[2020-08-27] MEDS: Ipratropium/Albuterol Neb 3 ML IH SCH ×2 (18:10→22:00)
[2020-08-27] MEDS: Melatonin 3 MG TABLET PO SCH (20:01)
[2020-08-27] MEDS: Spironolactone 25 MG TABLET PO SCH (20:01)
[2020-08-27] MEDS: Gabapentin 400 MG CAPSULE PO SCH (20:01)
[2020-08-27] MEDS: Clotrimazole 1% CRM 15 GM TUBE TP SCH (20:12)
[2020-08-27 21:20] LABS: BUN/Creatinine Ratio 27 (6-26); Blood Urea Nitrogen 36 mg/dL (8-23); Calcium 9.1 mg/dL (8.6-10.3); Carbon Dioxide 35 mEq/L (23-29); Chloride 92 mEq/L (98-107); Glucose 119 mg/dL (70-105); Osmolality,Calculated 287 (280-300); Potassium 3.2 mEq/L (3.5-5.1); Sodium 134 mEq/L (136-145); eGFR For African Americans > 60 (> 60); eGFR For Non-African Americans 53 (> 60)
[2020-08-28] MEDS: 0.9 % Sodium Chloride w KCl 40 MEQ/1,000 ML MLS IVC SCH (02:53)
[2020-08-28 03:49] LABS: Basophils # 0.1 K/mcL (0.0-0.2); Basophils % 0.6 %; Eosinophils # 0.4 K/mcL (0.0-0.6); Eosinophils % 3.1 %; Hematocrit 48.3 % (37.5-50.1); Hemoglobin 15.8 g/dL (12.9-16.9); Immature Granulocytes % 0.9 % (0-4); Lymphocytes # 1.2 K/mcL (0.6-4.6); Lymphocytes % 9.9 %; Mean Corpuscular HGB Conc 32.7 g/dL (31.6-35.5); Mean Corpuscular Hemoglobin 29.4 pg (28.0-33.3); Mean Corpuscular Volume 89.8 fL (83.0-100.0); Mean Platelet Volume 9.6 fL (9.4-12.4); Monocytes # 1.2 K/mcL (0.0-1.3); Monocytes % 9.8 %; Neutrophils # 8.9 K/mcL (1.6-8.9); Platelet Count 280 K/mcL (140-400); Red Blood Count 5.38 M/mcL (4.19-5.50); Red Cell Distribution Width 14.2 % (11.5-14.5); Segmented Neutrophils % 75.7 %; White Blood Count 11.8 K/mcL (4.3-11.1)
[2020-08-28] MEDS: Ipratropium/Albuterol Neb 3 ML IH SCH ×4 (03:51→22:55)
[2020-08-28 04:04] LABS: BUN/Creatinine Ratio 27 (6-26); Blood Urea Nitrogen 33 mg/dL (8-23); Carbon Dioxide 34 mEq/L (23-29); Chloride 92 mEq/L (98-107); Glucose 120 mg/dL (70-105); Magnesium 2.1 mg/dL (1.6-2.6); Osmolality,Calculated 284 (280-300); Potassium 3.2 mEq/L (3.5-5.1); Sodium 133 mEq/L (136-145); eGFR For African Americans > 60 (> 60); eGFR For Non-African Americans 59 (> 60)
[2020-08-28] MEDS: Doxycycline 100 MG in 0.9 % Sodium Chloride Mini Bag 100 ML IVPB SCH ×2 (05:18→17:52)
[2020-08-28] MEDS: Insulin LISPRO 300 UNITS/3 ML VIAL SUBQ SCH ×3 (07:10→16:29)
[2020-08-28] MEDS ORDERED: Potassium Chloride 40 MEQ, Lidocaine 1% 2 ML in 0.9 % Sodium Chloride 500 ML IVPB ONE (07:25)
[2020-08-28] MEDS: Gabapentin 400 MG CAPSULE PO SCH ×2 (07:57→20:29)
[2020-08-28] MEDS: Cholecalciferol (D-3) 1,000 UNIT (25MCG) TABLET PO SCH (07:57)
[2020-08-28] MEDS: *HR* Amiodarone 200 MG TABLET PO SCH (07:57)
[2020-08-28] MEDS: Hydrocortisone 10 MG TABLET PO SCH ×3 (07:57→20:29)
[2020-08-28] MEDS: Piperacillin/Tazobactam 3.375 GM in 0.9 % Sodium Chloride Mini Bag 100 ML IVPB SCH ×3 (07:57→23:25)
[2020-08-28] MEDS: Spironolactone 25 MG TABLET PO SCH ×2 (07:57→20:29)
[2020-08-28] MEDS: Clotrimazole 1% CRM 15 GM TUBE TP SCH ×2 (08:10→21:36)
[2020-08-28] MEDS: Melatonin 3 MG TABLET PO SCH (20:29)
[2020-08-29 02:43] LABS: Basophils # 0.1 K/mcL (0.0-0.2); Basophils % 0.4 %; Eosinophils # 0.1 K/mcL (0.0-0.6); Eosinophils % 0.9 %; Hematocrit 44.1 % (37.5-50.1); Hemoglobin 14.8 g/dL (12.9-16.9); Immature Granulocytes % 0.9 % (0-4); Lymphocytes # 1.1 K/mcL (0.6-4.6); Lymphocytes % 9.6 %; Mean Corpuscular HGB Conc 33.6 g/dL (31.6-35.5); Mean Corpuscular Hemoglobin 29.7 pg (28.0-33.3); Mean Corpuscular Volume 88.4 fL (83.0-100.0); Mean Platelet Volume 9.4 fL (9.4-12.4); Monocytes # 1.1 K/mcL (0.0-1.3); Monocytes % 9.3 %; Neutrophils # 9.3 K/mcL (1.6-8.9); Platelet Count 262 K/mcL (140-400); Red Blood Count 4.99 M/mcL (4.19-5.50); Red Cell Distribution Width 13.9 % (11.5-14.5); Segmented Neutrophils % 78.9 %; White Blood Count 11.8 K/mcL (4.3-11.1)
[2020-08-29 03:00] LABS: BUN/Creatinine Ratio 22 (6-26); Blood Urea Nitrogen 24 mg/dL (8-23); Calcium 8.7 mg/dL (8.6-10.3); Carbon Dioxide 30 mEq/L (23-29); Chloride 93 mEq/L (98-107); Cholesterol 139 mg/dL (< 200); Glucose 129 mg/dL (70-105); HDL Cholesterol 28 mg/dL (40-59); LDL Cholesterol,Calculated 93 mg/dL (< 100); Magnesium 1.6 mg/dL (1.6-2.6); Osmolality,Calculated 280 (280-300); Potassium 3.1 mEq/L (3.5-5.1); Sodium 132 mEq/L (136-145); Triglycerides 91 mg/dL (< 150); eGFR For African Americans > 60 (> 60); eGFR For Non-African Americans > 60 (> 60)
[2020-08-29] MEDS: Ipratropium/Albuterol Neb 3 ML IH SCH ×4 (04:05→22:37)
[2020-08-29] MEDS: Doxycycline 100 MG in 0.9 % Sodium Chloride Mini Bag 100 ML IVPB SCH ×2 (05:40→16:38)
[2020-08-29] MEDS: 0.9 % Sodium Chloride w KCl 40 MEQ/1,000 ML MLS IVC SCH ×2 (05:45→14:35)
[2020-08-29] MEDS: Insulin LISPRO 300 UNITS/3 ML VIAL SUBQ SCH ×3 (07:49→16:44)
[2020-08-29] MEDS: Cholecalciferol (D-3) 1,000 UNIT (25MCG) TABLET PO SCH (08:01)
[2020-08-29] MEDS: Hydrocortisone 10 MG TABLET PO SCH ×3 (08:02→20:38)
[2020-08-29] MEDS: *HR* Amiodarone 200 MG TABLET PO SCH (08:02)
[2020-08-29] MEDS: Piperacillin/Tazobactam 3.375 GM in 0.9 % Sodium Chloride Mini Bag 100 ML IVPB SCH (08:02)
[2020-08-29] MEDS: Spironolactone 25 MG TABLET PO SCH (08:02)
[2020-08-29] MEDS: Gabapentin 400 MG CAPSULE PO SCH ×2 (08:02→20:39)
[2020-08-29] MEDS: Clotrimazole 1% CRM 15 GM TUBE TP SCH ×2 (08:06→20:43)
[2020-08-29] MEDS ORDERED: polyethylene glycoL 3350 17 GM POWD.PACK PO PRN (08:22)
[2020-08-29] MEDS: Sennosides/Docusate Sodium TABLET PO SCH ×2 (10:15→20:38)
[2020-08-29] MEDS: lisinopriL 10 MG TABLET PO SCH (13:09)
[2020-08-29] MEDS: *HR* Rivaroxaban 10 MG TABLET PO SCH (16:44)
[2020-08-29] MEDS: Melatonin 3 MG TABLET PO SCH (20:39)
[2020-08-30] MEDS: Ipratropium/Albuterol Neb 3 ML IH SCH ×5 (03:17→22:24)
[2020-08-30] MEDS: 0.9 % Sodium Chloride w KCl 40 MEQ/1,000 ML MLS IVC SCH ×3 (05:07→20:18)
[2020-08-30] MEDS: Doxycycline 100 MG in 0.9 % Sodium Chloride Mini Bag 100 ML IVPB SCH ×2 (06:24→17:57)
[2020-08-30] MEDS: Insulin LISPRO 300 UNITS/3 ML VIAL SUBQ SCH ×3 (08:11→16:52)
[2020-08-30] MEDS: Hydrocortisone 10 MG TABLET PO SCH ×3 (08:57→20:23)
[2020-08-30] MEDS: Gabapentin 400 MG CAPSULE PO SCH ×2 (08:57→20:18)
[2020-08-30] MEDS: Spironolactone 25 MG TABLET PO SCH (08:57)
[2020-08-30] MEDS: lisinopriL 10 MG TABLET PO SCH (08:57)
[2020-08-30] MEDS: *HR* Amiodarone 200 MG TABLET PO SCH (08:57)
[2020-08-30] MEDS: Sennosides/Docusate Sodium TABLET PO SCH ×2 (08:57→20:17)
[2020-08-30] MEDS: Cholecalciferol (D-3) 1,000 UNIT (25MCG) TABLET PO SCH (08:57)
[2020-08-30] MEDS: Clotrimazole 1% CRM 15 GM TUBE TP SCH ×2 (08:58→20:23)
[2020-08-30 14:20] LABS: Basophils # 0.1 K/mcL (0.0-0.2); Basophils % 0.6 %; Eosinophils # 0.4 K/mcL (0.0-0.6); Eosinophils % 3.1 %; Hematocrit 45.6 % (37.5-50.1); Hemoglobin 15.1 g/dL (12.9-16.9); Lymphocytes # 1.1 K/mcL (0.6-4.6); Lymphocytes % 8.9 %; Mean Corpuscular HGB Conc 33.1 g/dL (31.6-35.5); Mean Corpuscular Hemoglobin 28.8 pg (28.0-33.3); Mean Corpuscular Volume 86.9 fL (83.0-100.0); Mean Platelet Volume 9.1 fL (9.4-12.4); Monocytes # 1.1 K/mcL (0.0-1.3); Monocytes % 8.9 %; Neutrophils # 9.6 K/mcL (1.6-8.9); Platelet Count 295 K/mcL (140-400); Red Blood Count 5.25 M/mcL (4.19-5.50); Red Cell Distribution Width 14.7 % (11.5-14.5); Segmented Neutrophils % 77.5 %; White Blood Count 12.4 K/mcL (4.3-11.1)
[2020-08-30 14:40] LABS: BUN/Creatinine Ratio 13 (6-26); Blood Urea Nitrogen 15 mg/dL (8-23); Carbon Dioxide 26 mEq/L (23-29); Chloride 99 mEq/L (98-107); Glucose 160 mg/dL (70-105); Magnesium 1.5 mg/dL (1.6-2.6); Osmolality,Calculated 280 (280-300); Potassium 3.9 mEq/L (3.5-5.1); Sodium 133 mEq/L (136-145); eGFR For African Americans > 60 (> 60); eGFR For Non-African Americans > 60 (> 60)
[2020-08-30] MEDS: *HR* Rivaroxaban 10 MG TABLET PO SCH (17:57)
[2020-08-30] MEDS: Melatonin 3 MG TABLET PO SCH (20:18)
[2020-08-31] MEDS: Ipratropium/Albuterol Neb 3 ML IH SCH ×2 (04:21→09:26)
[2020-08-31] MEDS: Doxycycline 100 MG in 0.9 % Sodium Chloride Mini Bag 100 ML IVPB SCH (05:03)
[2020-08-31 05:41] LABS: Basophils # 0.1 K/mcL (0.0-0.2); Basophils % 0.7 %; Eosinophils # 0.4 K/mcL (0.0-0.6); Eosinophils % 3.7 %; Hemoglobin 14.1 g/dL (12.9-16.9); Immature Granulocytes % 1.2 % (0-4); Lymphocytes # 1.3 K/mcL (0.6-4.6); Lymphocytes % 10.7 %; Mean Corpuscular Volume 90.3 fL (83.0-100.0); Mean Platelet Volume 9.2 fL (9.4-12.4); Monocytes # 1.1 K/mcL (0.0-1.3); Monocytes % 9.5 %; Neutrophils # 8.7 K/mcL (1.6-8.9); Platelet Count 263 K/mcL (140-400); Red Blood Count 4.87 M/mcL (4.19-5.50); Red Cell Distribution Width 14.7 % (11.5-14.5); Segmented Neutrophils % 74.2 %; White Blood Count 11.7 K/mcL (4.3-11.1)
[2020-08-31 05:59] LABS: BUN/Creatinine Ratio 14 (6-26); Blood Urea Nitrogen 15 mg/dL (8-23); Calcium 8.6 mg/dL (8.6-10.3); Carbon Dioxide 26 mEq/L (23-29); Chloride 102 mEq/L (98-107); Glucose 105 mg/dL (70-105); Magnesium 1.5 mg/dL (1.6-2.6); Osmolality,Calculated 281 (280-300); Potassium 3.9 mEq/L (3.5-5.1); Sodium 135 mEq/L (136-145); eGFR For African Americans > 60 (> 60); eGFR For Non-African Americans > 60 (> 60)
[2020-08-31] MEDS: Insulin LISPRO 300 UNITS/3 ML VIAL SUBQ SCH ×2 (07:28→12:00)
[2020-08-31] MEDS: Sennosides/Docusate Sodium TABLET PO SCH (09:42)
[2020-08-31] MEDS: Hydrocortisone 10 MG TABLET PO SCH (09:42)
[2020-08-31] MEDS: Cholecalciferol (D-3) 1,000 UNIT (25MCG) TABLET PO SCH (09:42)
[2020-08-31] MEDS: *HR* Amiodarone 200 MG TABLET PO SCH (09:43)
[2020-08-31] MEDS: Spironolactone 25 MG TABLET PO SCH (09:43)
[2020-08-31] MEDS: Gabapentin 400 MG CAPSULE PO SCH (09:43)
[2020-08-31] MEDS: lisinopriL 10 MG TABLET PO SCH (09:43)
[2020-08-31] MEDS: Clotrimazole 1% CRM 15 GM TUBE TP SCH (09:43)
[2020-08-31 11:21] VITALS: BP 117/72
== END 2020-08-31 13:50 | disposition home health service (06) | DRG 439 ==
LOC: EMEROOARM 13:04 → 2ANU 13:04 → SUATTDRO 16:57 → 2ANU 18:29
PROVIDERS: ADMIT Internal Medicine; ATTEND Pharmacist

== ENCOUNTER 2020-10-09 09:45 | Inpatient (IN) ==
[2020-10-09] MEDS ORDERED: 0.9 % Sodium Chloride 1,000 ML IVC ONE ×2 (09:54→10:54)
[2020-10-09] MEDS ORDERED: methylPREDNISolone 125 MG/2 ML VIAL IVP ONE (10:09)
[2020-10-09 10:20] LABS: Basophils # 0.1 K/mcL (0.0-0.2); Basophils % 0.6 %; Eosinophils # 0.3 K/mcL (0.0-0.6); Eosinophils % 2.6 %; Hematocrit 47.1 % (37.5-50.1); Hemoglobin 15.6 g/dL (12.9-16.9); Immature Granulocytes % 0.7 % (0-4); Lymphocytes # 1.9 K/mcL (0.6-4.6); Lymphocytes % 15.3 %; Mean Corpuscular HGB Conc 33.1 g/dL (31.6-35.5); Mean Corpuscular Hemoglobin 30.1 pg (28.0-33.3); Mean Corpuscular Volume 90.9 fL (83.0-100.0); Mean Platelet Volume 9.5 fL (9.4-12.4); Monocytes # 1.2 K/mcL (0.0-1.3); Monocytes % 9.3 %; Neutrophils # 9.1 K/mcL (1.6-8.9); Platelet Count 337 K/mcL (140-400); Red Blood Count 5.18 M/mcL (4.19-5.50); Segmented Neutrophils % 71.5 %; White Blood Count 12.7 K/mcL (4.3-11.1)
[2020-10-09 10:40] LABS: Prothrombin Time 23.2 Seconds (9.4-12.1)
[2020-10-09 10:42] LABS: Activated Partial Thrombo Time 34.4 Seconds (26.0-36.0)
[2020-10-09 10:45] LABS: Troponin I 0.04 ng/mL (< 0.04)
[2020-10-09 10:56] LABS: Albumin/Globulin Ratio 1.3 (1.1-2.2); Bilirubin,Direct 0.1 mg/dL (0.0-0.2); Bilirubin,Indirect 0.5 mg/dL (0.0-1.0); Bilirubin,Total 0.6 mg/dL (0.3-1.0); Calcium 9.8 mg/dL (8.6-10.3); Globulin 3.1 g/dL (2.4-3.5); Magnesium 1.9 mg/dL (1.6-2.6); Potassium 2.8 mEq/L (3.5-5.1); Total Protein 7.1 g/dL (6.4-8.9)
[2020-10-09] MEDS ORDERED: Aspirin 81 MG TAB.CHEW PO STA (10:59)
[2020-10-09] MEDS ORDERED: 0.9 % Sodium Chloride 500 ML IVC ONE (11:00)
[2020-10-09] MEDS ORDERED: Potassium Chloride 40 MEQ, Lidocaine 1% 2 ML in 0.9 % Sodium Chloride 500 ML IVPB ONE (12:03)
[2020-10-09] MEDS ORDERED: Hydrocortisone Sodium Succ 100 MG/2 ML VIAL IVP STA (12:46)
[2020-10-09] MEDS: 0.9 % Sodium Chloride 1,000 ML IVC SCH ×2 (12:47→20:50)
[2020-10-09] MEDS ORDERED: Acetaminophen 325 MG TABLET PO PRN (13:50)
[2020-10-09] MEDS ORDERED: Ondansetron 4 MG/2 ML VIAL IVP PRN (13:50)
[2020-10-09 14:02] LABS: Bilirubin,Urine Negative (Negative); Blood,Urine Negative (Negative); Clarity,Urine Clear (Clear); Color,Urine Colorless (Yellow); Glucose,Urine (UA) Normal (Normal); Ketones,Urine Negative (Negative); Leukocyte Esterase,Urine Negative (Negative); Nitrite,Urine Negative (Negative); PH,Urine 6.5 pH Units (5.0-8.0); Protein,Urine Negative (Neg-Trace); Specific Gravity,Urine 1.007 (1.010-1.025); Urobilinogen,Urine Normal (Normal)
[2020-10-09] MEDS ORDERED: Ipratropium/Albuterol Neb 3 ML IH PRN (14:18)
[2020-10-09] MEDS ORDERED: Dextrose Gel 15 GM/37.5 ML TUBE PO PRN ×2 (14:32)
[2020-10-09] MEDS ORDERED: D5% in Water 1,000 ML IVC PRN (14:32)
[2020-10-09] MEDS ORDERED: *HR* Dextrose 50 % in Water (Vial) 50 ML VIAL IVP PRN (14:32)
[2020-10-09 14:59] LABS: Calcium 5.5 mg/dL (8.6-10.3); Potassium 1.9 mEq/L (3.5-5.1)
[2020-10-09] MEDS ORDERED: Calcium Gluconate 1gm/50mL 1 GM/50 ML BAG IVPB ONE (15:10)
[2020-10-09] MEDS: polyethylene glycoL 3350 17 GM POWD.PACK PO SCH (15:15)
[2020-10-09] MEDS: Insulin LISPRO 300 UNITS/3 ML VIAL SUBQ SCH ×2 (16:26→21:18)
[2020-10-09] MEDS ORDERED: *HR* Rivaroxaban 10 MG TABLET PO SCH ×2 (17:00)
[2020-10-09 17:06] LABS: Bilirubin,Urine Negative (Negative); Blood,Urine Negative (Negative); Clarity,Urine Clear (Clear); Color,Urine Colorless (Yellow); Glucose,Urine (UA) Normal (Normal); Ketones,Urine Negative (Negative); Leukocyte Esterase,Urine Negative (Negative); Nitrite,Urine Negative (Negative); PH,Urine 6.5 pH Units (5.0-8.0); Protein,Urine Negative (Neg-Trace); Specific Gravity,Urine 1.007 (1.010-1.025); Urobilinogen,Urine Normal (Normal)
[2020-10-09 17:56] LABS: Calcium 7.2 mg/dL (8.6-10.3); Potassium 2.6 mEq/L (3.5-5.1)
[2020-10-09 18:44] LABS: Sodium, Urine 65.4 mEq/L
[2020-10-09] MEDS: *HR* Amiodarone 200 MG TABLET PO SCH (19:17)
[2020-10-09] MEDS: Budesonide/Formoterol 160/4.5 1 PUFF INH IH SCH (22:47)
[2020-10-10] MEDS: tiZANidine 4 MG TABLET PO SCH ×2 (00:14→20:16)
[2020-10-10] MEDS: traZODone 50 MG TABLET PO SCH ×2 (00:14→20:15)
[2020-10-10] MEDS: Melatonin 3 MG TABLET PO SCH ×2 (00:15→20:15)
[2020-10-10] MEDS: Hydrocortisone Sodium Succ 100 MG/2 ML VIAL IVP SCH ×4 (00:15→23:15)
[2020-10-10 01:50] LABS: Hematocrit 43.7 % (37.5-50.1); Hemoglobin 14.1 g/dL (12.9-16.9); Mean Corpuscular HGB Conc 32.3 g/dL (31.6-35.5); Mean Corpuscular Hemoglobin 29.6 pg (28.0-33.3); Mean Corpuscular Volume 91.6 fL (83.0-100.0); Mean Platelet Volume 9.9 fL (9.4-12.4); Platelet Count 277 K/mcL (140-400); Red Blood Count 4.77 M/mcL (4.19-5.50); Red Cell Distribution Width 16.9 % (11.5-14.5); White Blood Count 11.1 K/mcL (4.3-11.1)
[2020-10-10 02:14] LABS: Calcium 8.5 mg/dL (8.6-10.3); Magnesium 1.6 mg/dL (1.6-2.6); Potassium 3.1 mEq/L (3.5-5.1)
[2020-10-10] MEDS: 0.9 % Sodium Chloride 1,000 ML IVC SCH (05:14)
[2020-10-10] MEDS ORDERED: Potassium Chloride 40 MEQ, Lidocaine 1% 2 ML in 0.9 % Sodium Chloride 500 ML IVPB ONE (07:32)
[2020-10-10] MEDS: Gabapentin 400 MG CAPSULE PO SCH ×2 (08:05→20:16)
[2020-10-10] MEDS: polyethylene glycoL 3350 17 GM POWD.PACK PO SCH (08:11)
[2020-10-10] MEDS: Insulin LISPRO 300 UNITS/3 ML VIAL SUBQ SCH ×4 (08:12→20:07)
[2020-10-10] MEDS: Cholecalciferol (D-3) 1,000 UNIT (25MCG) TABLET PO SCH (08:12)
[2020-10-10] MEDS: Budesonide/Formoterol 160/4.5 1 PUFF INH IH SCH ×2 (10:24→22:24)
[2020-10-10] MEDS ORDERED: Ringers Solution, Lactated 1,000 ML IVC ONE (11:22)
[2020-10-10] MEDS ORDERED: Hydrocortisone Sodium Succ 100 MG/2 ML VIAL IVP ONE (11:48)
[2020-10-10] MEDS ORDERED: Perflutren Lipid Microsphere 1.3 ML in 0.9 % Sodium Chloride 8.7 ML IVP PRN (12:23)
[2020-10-10 12:57] LABS: Protein/Creatinine Ratio,Urine 0.13 mg/mg (0.00-0.20)
[2020-10-10] MEDS: Ringers Solution, Lactated 1,000 ML IVC SCH ×2 (13:13→23:15)
[2020-10-10] MEDS: *HR* Rivaroxaban 10 MG TABLET PO SCH (17:18)
[2020-10-10] MEDS: *HR* Amiodarone 200 MG TABLET PO SCH (17:19)
[2020-10-11 05:58] LABS: Basophils % 0.3 %; Hematocrit 36.8 % (37.5-50.1); Immature Granulocytes % 1.4 % (0-4); Lymphocytes # 0.8 K/mcL (0.6-4.6); Lymphocytes % 6.1 %; Mean Corpuscular HGB Conc 32.6 g/dL (31.6-35.5); Mean Corpuscular Hemoglobin 29.8 pg (28.0-33.3); Mean Corpuscular Volume 91.3 fL (83.0-100.0); Mean Platelet Volume 9.8 fL (9.4-12.4); Monocytes # 1.1 K/mcL (0.0-1.3); Monocytes % 7.8 %; Neutrophils # 11.5 K/mcL (1.6-8.9); Platelet Count 252 K/mcL (140-400); Red Blood Count 4.03 M/mcL (4.19-5.50); Red Cell Distribution Width 17.3 % (11.5-14.5); Segmented Neutrophils % 84.4 %; White Blood Count 13.6 K/mcL (4.3-11.1)
[2020-10-11 06:17] LABS: Calcium 8.4 mg/dL (8.6-10.3); Potassium 3.2 mEq/L (3.5-5.1)
[2020-10-11 06:19] LABS: Uric Acid 10.1 mg/dL (2.3-7.6)
[2020-10-11 06:47] LABS: Estimated Average Glucose 154 mg/dl
[2020-10-11] MEDS: Budesonide/Formoterol 160/4.5 1 PUFF INH IH SCH ×2 (07:21→20:07)
[2020-10-11 07:24] LABS: Hepatitis B Surface Antigen Nonreactive (Nonreactive)
[2020-10-11] MEDS ORDERED: Potassium Chloride 40 MEQ, Lidocaine 1% 2 ML in 0.9 % Sodium Chloride 500 ML IVPB ONE (07:42)
[2020-10-11 07:52] LABS: Hepatitis B Core IgM Nonreactive (Nonreactive)
[2020-10-11] MEDS: Gabapentin 400 MG CAPSULE PO SCH ×2 (09:22→21:03)
[2020-10-11] MEDS: Metoprolol XL (24 HR) Succ 25 MG TAB.ER.24H PO SCH (09:22)
[2020-10-11] MEDS: Cholecalciferol (D-3) 1,000 UNIT (25MCG) TABLET PO SCH (09:22)
[2020-10-11] MEDS: Hydrocortisone Sodium Succ 100 MG/2 ML VIAL IVP SCH ×3 (09:23→23:56)
[2020-10-11] MEDS: polyethylene glycoL 3350 17 GM POWD.PACK PO SCH (09:24)
[2020-10-11] MEDS: Insulin LISPRO 300 UNITS/3 ML VIAL SUBQ SCH ×4 (09:40→20:55)
[2020-10-11] MEDS: *HR* Amiodarone 200 MG TABLET PO SCH (16:30)
[2020-10-11] MEDS: *HR* Rivaroxaban 10 MG TABLET PO SCH (16:30)
[2020-10-11 19:56] LABS: Hepatitis C Virus Antibody Nonreactive (Nonreactive)
[2020-10-11 19:59] LABS: Hepatitis A Antibody IgM Nonreactive (Nonreactive)
[2020-10-11] MEDS: traZODone 50 MG TABLET PO SCH (21:02)
[2020-10-11] MEDS: tiZANidine 4 MG TABLET PO SCH (21:03)
[2020-10-11] MEDS: Melatonin 3 MG TABLET PO SCH (21:03)
[2020-10-12 04:05] LABS: Basophils # 0.1 K/mcL (0.0-0.2); Basophils % 0.6 %; Hemoglobin 13.1 g/dL (12.9-16.9); Immature Granulocytes % 1.9 % (0-4); Lymphocytes % 7.9 %; Mean Corpuscular Hemoglobin 29.4 pg (28.0-33.3); Mean Corpuscular Volume 92.1 fL (83.0-100.0); Mean Platelet Volume 9.7 fL (9.4-12.4); Monocytes # 0.9 K/mcL (0.0-1.3); Monocytes % 7.7 %; Platelet Count 269 K/mcL (140-400); Red Blood Count 4.45 M/mcL (4.19-5.50); Red Cell Distribution Width 17.5 % (11.5-14.5); Segmented Neutrophils % 81.9 %; White Blood Count 12.2 K/mcL (4.3-11.1)
[2020-10-12 04:29] LABS: Calcium 8.7 mg/dL (8.6-10.3); Magnesium 1.8 mg/dL (1.6-2.6); Phosphorous 2.8 mg/dL (2.7-4.5); Potassium 3.5 mEq/L (3.5-5.1)
[2020-10-12 04:44] LABS: Thyroid Stimulating Hormone 0.258 mcIU/mL (0.340-5.600)
[2020-10-12 04:45] LABS: Triiodothyronine (T3) Free 2.21 pg/mL (2.50-3.90)
[2020-10-12] MEDS: Budesonide/Formoterol 160/4.5 1 PUFF INH IH SCH ×2 (07:33→19:38)
[2020-10-12] MEDS: Insulin LISPRO 300 UNITS/3 ML VIAL SUBQ SCH ×4 (08:13→20:56)
[2020-10-12] MEDS: polyethylene glycoL 3350 17 GM POWD.PACK PO SCH (08:50)
[2020-10-12] MEDS: Gabapentin 400 MG CAPSULE PO SCH ×2 (08:50→21:09)
[2020-10-12] MEDS: Cholecalciferol (D-3) 1,000 UNIT (25MCG) TABLET PO SCH (08:50)
[2020-10-12] MEDS: Hydrocortisone Sodium Succ 100 MG/2 ML VIAL IVP SCH ×3 (08:50→23:53)
[2020-10-12] MEDS: Metoprolol XL (24 HR) Succ 25 MG TAB.ER.24H PO SCH (08:51)
[2020-10-12] MEDS ORDERED: E-Z-PAQUE (BARIUM SULF) SUSP 1 BOTTLE PO ONE (14:56)
[2020-10-12] MEDS ORDERED: E-Z-HD (BARIUM SULF) SUSPENSION PO ONE (14:56)
[2020-10-12] MEDS: *HR* Rivaroxaban 10 MG TABLET PO SCH (16:35)
[2020-10-12] MEDS: *HR* Amiodarone 200 MG TABLET PO SCH (18:30)
[2020-10-12] MEDS: Melatonin 3 MG TABLET PO SCH (21:08)
[2020-10-12] MEDS: traZODone 50 MG TABLET PO SCH (21:08)
[2020-10-12] MEDS: tiZANidine 4 MG TABLET PO SCH (21:09)
[2020-10-13 04:22] LABS: Hematocrit 40.8 % (37.5-50.1); Hemoglobin 13.2 g/dL (12.9-16.9); Immature Granulocytes % 2.6 % (0-4); Mean Corpuscular HGB Conc 32.4 g/dL (31.6-35.5); Mean Corpuscular Hemoglobin 29.9 pg (28.0-33.3); Mean Corpuscular Volume 92.5 fL (83.0-100.0); Mean Platelet Volume 9.7 fL (9.4-12.4); Platelet Count 283 K/mcL (140-400); Red Blood Count 4.41 M/mcL (4.19-5.50); Red Cell Distribution Width 17.4 % (11.5-14.5); Segmented Neutrophils % 76.5 %; White Blood Count 11.8 K/mcL (4.3-11.1)
[2020-10-13 04:23] LABS: Basophils # 0.1 K/mcL (0.0-0.2); Basophils % 0.8 %; Eosinophils % 0.2 %; Lymphocytes # 1.2 K/mcL (0.6-4.6); Monocytes # 1.2 K/mcL (0.0-1.3); Monocytes % 9.9 %
[2020-10-13 04:33] LABS: BUN/Creatinine Ratio 26 (6-26); Blood Urea Nitrogen 33 mg/dL (8-23); Calcium 8.5 mg/dL (8.6-10.3); Carbon Dioxide 31 mEq/L (23-29); Chloride 101 mEq/L (98-107); Glucose 131 mg/dL (70-105); Magnesium 1.8 mg/dL (1.6-2.6); Osmolality,Calculated 295 (280-300); Phosphorous 2.9 mg/dL (2.7-4.5); Potassium 3.4 mEq/L (3.5-5.1); Sodium 138 mEq/L (136-145); eGFR For African Americans > 60 (> 60); eGFR For Non-African Americans 56 (> 60)
[2020-10-13] MEDS: Metoprolol XL (24 HR) Succ 25 MG TAB.ER.24H PO SCH (07:32)
[2020-10-13] MEDS: Cholecalciferol (D-3) 1,000 UNIT (25MCG) TABLET PO SCH (07:33)
[2020-10-13] MEDS: Hydrocortisone Sodium Succ 100 MG/2 ML VIAL IVP SCH ×3 (07:33→23:38)
[2020-10-13] MEDS: Gabapentin 400 MG CAPSULE PO SCH ×2 (07:33→20:59)
[2020-10-13] MEDS: Insulin LISPRO 300 UNITS/3 ML VIAL SUBQ SCH ×4 (07:34→21:07)
[2020-10-13] MEDS ORDERED: Potassium Chloride 40 MEQ, Lidocaine 1% 2 ML in 0.9 % Sodium Chloride 500 ML IVPB ONE (07:35)
[2020-10-13] MEDS: polyethylene glycoL 3350 17 GM POWD.PACK PO SCH (08:10)
[2020-10-13] MEDS: Budesonide/Formoterol 160/4.5 1 PUFF INH IH SCH ×2 (10:18→22:00)
[2020-10-13] MEDS ORDERED: *HR* Midazolam HCl 5 MG/5 ML VIAL IVP ONE ×2 (13:48→13:50)
[2020-10-13] MEDS ORDERED: *HR* FentaNYL (PF) 100 MCG/2 ML VIAL ONE (13:48)
[2020-10-13] MEDS ORDERED: *HR* FentaNYL (PF) 100 MCG/2 ML VIAL IVP ONE (13:50)
[2020-10-13] MEDS: *HR* Rivaroxaban 10 MG TABLET PO SCH (17:51)
[2020-10-13] MEDS: *HR* Amiodarone 200 MG TABLET PO SCH (17:51)
[2020-10-13] MEDS: traZODone 50 MG TABLET PO SCH (20:55)
[2020-10-13] MEDS: tiZANidine 4 MG TABLET PO SCH (20:56)
[2020-10-13] MEDS: Melatonin 3 MG TABLET PO SCH (20:59)
[2020-10-14 05:01] LABS: Basophils # 0.1 K/mcL (0.0-0.2); Basophils % 0.8 %; Eosinophils # 0.1 K/mcL (0.0-0.6); Eosinophils % 0.7 %; Hematocrit 38.4 % (37.5-50.1); Hemoglobin 12.5 g/dL (12.9-16.9); Immature Granulocytes % 1.9 % (0-4); Lymphocytes # 1.2 K/mcL (0.6-4.6); Mean Corpuscular HGB Conc 32.6 g/dL (31.6-35.5); Mean Corpuscular Hemoglobin 29.9 pg (28.0-33.3); Mean Corpuscular Volume 91.9 fL (83.0-100.0); Mean Platelet Volume 9.7 fL (9.4-12.4); Monocytes # 1.2 K/mcL (0.0-1.3); Monocytes % 9.3 %; Neutrophils # 9.6 K/mcL (1.6-8.9); Platelet Count 266 K/mcL (140-400); Red Blood Count 4.18 M/mcL (4.19-5.50); Red Cell Distribution Width 17.3 % (11.5-14.5); Segmented Neutrophils % 77.3 %; White Blood Count 12.4 K/mcL (4.3-11.1)
[2020-10-14 05:23] LABS: BUN/Creatinine Ratio 27 (6-26); Blood Urea Nitrogen 29 mg/dL (8-23); Calcium 8.3 mg/dL (8.6-10.3); Carbon Dioxide 30 mEq/L (23-29); Chloride 103 mEq/L (98-107); Glucose 132 mg/dL (70-105); Osmolality,Calculated 294 (280-300); Potassium 3.9 mEq/L (3.5-5.1); Sodium 138 mEq/L (136-145); eGFR For African Americans > 60 (> 60); eGFR For Non-African Americans > 60 (> 60)
[2020-10-14] MEDS: Budesonide/Formoterol 160/4.5 1 PUFF INH IH SCH ×2 (08:10→23:32)
[2020-10-14] MEDS: Insulin LISPRO 300 UNITS/3 ML VIAL SUBQ SCH ×4 (09:00→21:36)
[2020-10-14] MEDS: Cholecalciferol (D-3) 1,000 UNIT (25MCG) TABLET PO SCH (09:01)
[2020-10-14] MEDS: Gabapentin 400 MG CAPSULE PO SCH ×2 (09:01→21:38)
[2020-10-14] MEDS: Metoprolol XL (24 HR) Succ 25 MG TAB.ER.24H PO SCH (09:01)
[2020-10-14] MEDS: polyethylene glycoL 3350 17 GM POWD.PACK PO SCH (09:02)
[2020-10-14] MEDS: Hydrocortisone Sodium Succ 100 MG/2 ML VIAL IVP SCH ×2 (09:03→21:38)
[2020-10-14] MEDS: *HR* Amiodarone 200 MG TABLET PO SCH (17:15)
[2020-10-14] MEDS: *HR* Rivaroxaban 10 MG TABLET PO SCH (17:15)
[2020-10-14] MEDS: traZODone 50 MG TABLET PO SCH (21:37)
[2020-10-14] MEDS: Melatonin 3 MG TABLET PO SCH (21:37)
[2020-10-14] MEDS: tiZANidine 4 MG TABLET PO SCH (21:37)
[2020-10-15 06:55] LABS: Basophils # 0.1 K/mcL (0.0-0.2); Basophils % 0.8 %; Eosinophils # 0.1 K/mcL (0.0-0.6); Eosinophils % 1.1 %; Hematocrit 38.4 % (37.5-50.1); Hemoglobin 12.4 g/dL (12.9-16.9); Immature Granulocytes % 1.9 % (0-4); Lymphocytes # 1.5 K/mcL (0.6-4.6); Lymphocytes % 14.9 %; Mean Corpuscular HGB Conc 32.3 g/dL (31.6-35.5); Mean Corpuscular Hemoglobin 30.3 pg (28.0-33.3); Mean Corpuscular Volume 93.9 fL (83.0-100.0); Mean Platelet Volume 9.4 fL (9.4-12.4); Monocytes % 10.1 %; Neutrophils # 7.3 K/mcL (1.6-8.9); Platelet Count 250 K/mcL (140-400); Red Blood Count 4.09 M/mcL (4.19-5.50); Red Cell Distribution Width 17.5 % (11.5-14.5); Segmented Neutrophils % 71.2 %; White Blood Count 10.3 K/mcL (4.3-11.1)
[2020-10-15 07:14] LABS: BUN/Creatinine Ratio 21 (6-26); Blood Urea Nitrogen 27 mg/dL (8-23); Calcium 8.6 mg/dL (8.6-10.3); Carbon Dioxide 32 mEq/L (23-29); Chloride 104 mEq/L (98-107); Glucose 116 mg/dL (70-105); Osmolality,Calculated 296 (280-300); Potassium 3.5 mEq/L (3.5-5.1); Sodium 140 mEq/L (136-145); eGFR For African Americans > 60 (> 60); eGFR For Non-African Americans 55 (> 60)
[2020-10-15] MEDS: Budesonide/Formoterol 160/4.5 1 PUFF INH IH SCH ×2 (07:42→20:07)
[2020-10-15] MEDS: Insulin LISPRO 300 UNITS/3 ML VIAL SUBQ SCH ×4 (08:18→21:04)
[2020-10-15] MEDS: Cholecalciferol (D-3) 1,000 UNIT (25MCG) TABLET PO SCH (08:23)
[2020-10-15] MEDS: Metoprolol XL (24 HR) Succ 25 MG TAB.ER.24H PO SCH (08:23)
[2020-10-15] MEDS: Gabapentin 400 MG CAPSULE PO SCH ×2 (08:24→21:29)
[2020-10-15] MEDS: polyethylene glycoL 3350 17 GM POWD.PACK PO SCH (08:24)
[2020-10-15] MEDS: Hydrocortisone Sodium Succ 100 MG/2 ML VIAL IVP SCH (08:24)
[2020-10-15] MEDS ORDERED: Hydrocortisone 10 MG TABLET PO SCH (15:00)
[2020-10-15] MEDS: Hydrocortisone 10 MG TABLET PO SCH (17:19)
[2020-10-15] MEDS: *HR* Amiodarone 200 MG TABLET PO SCH (17:19)
[2020-10-15] MEDS: *HR* Rivaroxaban 10 MG TABLET PO SCH (17:19)
[2020-10-15] MEDS: Melatonin 3 MG TABLET PO SCH (21:29)
[2020-10-15] MEDS: traZODone 50 MG TABLET PO SCH (21:29)
[2020-10-15] MEDS: tiZANidine 4 MG TABLET PO SCH (21:29)
[2020-10-16] MEDS: Budesonide/Formoterol 160/4.5 1 PUFF INH IH SCH (07:20)
[2020-10-16] MEDS: Insulin LISPRO 300 UNITS/3 ML VIAL SUBQ SCH (07:27)
[2020-10-16 07:30] VITALS: BP 105/69
[2020-10-16] MEDS: Hydrocortisone 10 MG TABLET PO SCH (08:29)
[2020-10-16] MEDS: Gabapentin 400 MG CAPSULE PO SCH (08:29)
[2020-10-16] MEDS: Metoprolol XL (24 HR) Succ 25 MG TAB.ER.24H PO SCH (08:29)
[2020-10-16] MEDS: polyethylene glycoL 3350 17 GM POWD.PACK PO SCH (08:30)
[2020-10-16] MEDS: Cholecalciferol (D-3) 1,000 UNIT (25MCG) TABLET PO SCH (08:30)
[2020-10-16] MEDS ORDERED: lisinopriL 5 MG TABLET PO SCH (09:00)
[2020-10-16] MEDS ORDERED: Torsemide 20 MG TABLET PO SCH (09:00)
== END 2020-10-16 11:52 | disposition home health service (06) | DRG 643 ==
LOC: 2NNU 09:45 → EMEROOARM 09:45 → SUATTDRO 14:01 → 2NNU 14:20 → 3ANU 10-13 21:35
PROVIDERS: ADMIT Internal Medicine; ATTEND Internal Medicine

== ENCOUNTER 2020-10-16 17:15 | Inpatient (IN) ==
[2020-10-16 19:03] LABS: Basophils # 0.1 K/mcL (0.0-0.2); Basophils % 0.7 %; Eosinophils # 0.2 K/mcL (0.0-0.6); Eosinophils % 1.2 %; Hematocrit 42.5 % (37.5-50.1); Immature Granulocytes % 1.8 % (0-4); Lymphocytes # 1.1 K/mcL (0.6-4.6); Lymphocytes % 7.5 %; Mean Corpuscular HGB Conc 33.9 g/dL (31.6-35.5); Mean Corpuscular Hemoglobin 31.9 pg (28.0-33.3); Mean Platelet Volume 9.5 fL (9.4-12.4); Monocytes # 1.2 K/mcL (0.0-1.3); Monocytes % 8.1 %; Neutrophils # 11.8 K/mcL (1.6-8.9); Platelet Count 267 K/mcL (140-400); Red Blood Count 4.52 M/mcL (4.19-5.50); Red Cell Distribution Width 17.4 % (11.5-14.5); Segmented Neutrophils % 80.7 %; White Blood Count 14.6 K/mcL (4.3-11.1)
[2020-10-16 19:05] LABS: Hemoglobin 14.4 g/dL (12.9-16.9)
[2020-10-16 19:22] LABS: BUN/Creatinine Ratio 25 (6-26); Blood Urea Nitrogen 26 mg/dL (8-23); Calcium 8.8 mg/dL (8.6-10.3); Carbon Dioxide 27 mEq/L (23-29); Chloride 105 mEq/L (98-107); Glucose 102 mg/dL (70-105); Osmolality,Calculated 293 (280-300); Potassium 3.5 mEq/L (3.5-5.1); Sodium 139 mEq/L (136-145); Troponin I < 0.03 ng/mL (< 0.04); eGFR For African Americans > 60 (> 60); eGFR For Non-African Americans > 60 (> 60)
[2020-10-16 19:42] LABS: Bilirubin,Urine Negative (Negative); Blood,Urine Negative (Negative); Clarity,Urine Clear (Clear); Color,Urine Light-Yellow (Yellow); Glucose,Urine (UA) Normal (Normal); Ketones,Urine Negative (Negative); Leukocyte Esterase,Urine Negative (Negative); Nitrite,Urine Negative (Negative); Protein,Urine Negative (Neg-Trace); Urobilinogen,Urine Normal (Normal)
[2020-10-16] MEDS ORDERED: Aspirin 81 MG TAB.CHEW PO ONE (21:12)
[2020-10-16] MEDS ORDERED: Ondansetron 4 MG/2 ML VIAL IVP PRN (22:10)
[2020-10-16] MEDS ORDERED: Naloxone 0.4 MG/ML INJ IVP PRN (22:10)
[2020-10-16] MEDS ORDERED: Acetaminophen 325 MG TABLET PO PRN (22:10)
[2020-10-16] MEDS ORDERED: Ipratropium/Albuterol Neb 3 ML IH PRN (22:14)
[2020-10-16] MEDS ORDERED: Fluticasone Propionate Nasal 50 MCG/SPRAY BOTTLE NS PRN (22:14)
[2020-10-16] MEDS ORDERED: Dextrose Gel 15 GM/37.5 ML TUBE PO PRN ×2 (22:22)
[2020-10-16] MEDS ORDERED: *HR* Dextrose 50 % in Water (Vial) 50 ML VIAL IVP PRN (22:22)
[2020-10-16] MEDS ORDERED: D5% in Water 1,000 ML IVC PRN (22:22)
[2020-10-16] MEDS ORDERED: *HR* OxyCODONE Immed Rel 5 MG TABLET PO PRN (22:30)
[2020-10-16] MEDS ORDERED: Diclofenac Sodium [Voltaren] TP PRN (22:34)
[2020-10-16] MEDS: Budesonide/Formoterol 160/4.5 1 PUFF INH IH SCH (23:17)
[2020-10-16] MEDS: Hydrocortisone 10 MG TABLET PO SCH (23:30)
[2020-10-16] MEDS ORDERED: Furosemide 40 MG/4 ML VIAL IVP ONE (23:34)
[2020-10-17] MEDS: Insulin LISPRO 300 UNITS/3 ML VIAL SUBQ SCH ×4 (01:05→17:02)
[2020-10-17] MEDS: traZODone 50 MG TABLET PO SCH ×2 (01:25→19:52)
[2020-10-17] MEDS: Melatonin 3 MG TABLET PO SCH ×2 (01:26→19:53)
[2020-10-17 06:20] LABS: Basophils # 0.1 K/mcL (0.0-0.2); Basophils % 0.7 %; Eosinophils # 0.4 K/mcL (0.0-0.6); Eosinophils % 3.4 %; Hematocrit 39.5 % (37.5-50.1); Immature Granulocytes % 1.7 % (0-4); Lymphocytes # 1.2 K/mcL (0.6-4.6); Lymphocytes % 9.4 %; Mean Corpuscular HGB Conc 32.4 g/dL (31.6-35.5); Mean Corpuscular Hemoglobin 29.8 pg (28.0-33.3); Mean Corpuscular Volume 91.9 fL (83.0-100.0); Mean Platelet Volume 9.5 fL (9.4-12.4); Monocytes % 7.9 %; Neutrophils # 9.7 K/mcL (1.6-8.9); Platelet Count 260 K/mcL (140-400); Red Cell Distribution Width 17.4 % (11.5-14.5); Segmented Neutrophils % 76.9 %; White Blood Count 12.6 K/mcL (4.3-11.1)
[2020-10-17 06:22] LABS: Hemoglobin 12.8 g/dL (12.9-16.9)
[2020-10-17 06:28] LABS: INR 1.2; Prothrombin Time 13.4 Seconds (9.4-12.1)
[2020-10-17 06:42] LABS: BUN/Creatinine Ratio 22 (6-26); Blood Urea Nitrogen 22 mg/dL (8-23); Calcium 8.7 mg/dL (8.6-10.3); Carbon Dioxide 29 mEq/L (23-29); Chloride 104 mEq/L (98-107); Glucose 128 mg/dL (70-105); Magnesium 1.9 mg/dL (1.6-2.6); Osmolality,Calculated 291 (280-300); Potassium 3.5 mEq/L (3.5-5.1); Sodium 138 mEq/L (136-145); eGFR For African Americans > 60 (> 60); eGFR For Non-African Americans > 60 (> 60)
[2020-10-17] MEDS: Furosemide 40 MG/4 ML VIAL IVP SCH ×2 (08:31→17:27)
[2020-10-17] MEDS: Metoprolol XL (24 HR) Succ 25 MG TAB.ER.24H PO SCH (08:31)
[2020-10-17] MEDS: Gabapentin 400 MG CAPSULE PO SCH ×2 (08:31→19:52)
[2020-10-17] MEDS: lisinopriL 5 MG TABLET PO SCH (08:32)
[2020-10-17] MEDS: *HR* Amiodarone 200 MG TABLET PO SCH (08:32)
[2020-10-17] MEDS: Spironolactone 25 MG TABLET PO SCH (08:32)
[2020-10-17] MEDS: Hydrocortisone 10 MG TABLET PO SCH ×3 (08:32→19:52)
[2020-10-17] MEDS: polyethylene glycoL 3350 17 GM POWD.PACK PO SCH (08:32)
[2020-10-17] MEDS: Artificial Tears SOLN 15 ML BOTTLE BOTH EYES SCH ×3 (08:33→19:54)
[2020-10-17 09:52] LABS: Adenovirus Not Detected (Not Detect); Bordetella Pertussis Not Detected (Not Detect); Chlamydophila pneumoniae Not Detected (Not Detect); Coronavirus 229E Not Detected (Not Detect); Coronavirus HKU1 Not Detected (Not Detect); Coronavirus NL63 Not Detected (Not Detect); Coronavirus OC43 Not Detected (Not Detect); Human Metapneumovirus Not Detected (Not Detect); Human Rhinovirus/Enterovirus Not Detected (Not Detect); Influenza A Subtype 2009 H1 Not Detected (Not Detect); Influenza B Not Detected (Not Detect); Mycoplasma pneumoniae Not Detected (Not Detect); Parainfluenza Virus 1 Not Detected (Not Detect); Parainfluenza Virus 2 Not Detected (Not Detect); Parainfluenza Virus 3 Not Detected (Not Detect); Parainfluenza Virus 4 Not Detected (Not Detect); Respiratory Syncytial Virus Not Detected (Not Detect); SARS-CoV-2 Not Detected (Not Detect)
[2020-10-17] MEDS: Budesonide/Formoterol 160/4.5 1 PUFF INH IH SCH ×3 (10:23→22:17)
[2020-10-17] MEDS: *HR* Rivaroxaban 10 MG TABLET PO SCH (17:28)
[2020-10-17] MEDS: tiZANidine 4 MG TABLET PO SCH (19:53)
[2020-10-18] MEDS: Insulin LISPRO 300 UNITS/3 ML VIAL SUBQ SCH ×5 (01:29→20:47)
[2020-10-18 05:21] LABS: Basophils # 0.1 K/mcL (0.0-0.2); Basophils % 0.6 %; Eosinophils # 0.3 K/mcL (0.0-0.6); Eosinophils % 2.4 %; Hemoglobin 12.4 g/dL (12.9-16.9); Immature Granulocytes % 1.3 % (0-4); Lymphocytes # 1.2 K/mcL (0.6-4.6); Lymphocytes % 9.9 %; Mean Corpuscular HGB Conc 31.8 g/dL (31.6-35.5); Mean Corpuscular Hemoglobin 29.7 pg (28.0-33.3); Mean Corpuscular Volume 93.5 fL (83.0-100.0); Mean Platelet Volume 9.6 fL (9.4-12.4); Monocytes % 8.5 %; Neutrophils # 9.2 K/mcL (1.6-8.9); Platelet Count 264 K/mcL (140-400); Red Blood Count 4.17 M/mcL (4.19-5.50); Red Cell Distribution Width 17.3 % (11.5-14.5); Segmented Neutrophils % 77.3 %; White Blood Count 11.9 K/mcL (4.3-11.1)
[2020-10-18 05:43] LABS: BUN/Creatinine Ratio 20 (6-26); Blood Urea Nitrogen 21 mg/dL (8-23); Calcium 8.3 mg/dL (8.6-10.3); Carbon Dioxide 30 mEq/L (23-29); Chloride 101 mEq/L (98-107); Glucose 137 mg/dL (70-105); Magnesium 1.8 mg/dL (1.6-2.6); Osmolality,Calculated 289 (280-300); Potassium 3.5 mEq/L (3.5-5.1); Sodium 137 mEq/L (136-145); eGFR For African Americans > 60 (> 60); eGFR For Non-African Americans > 60 (> 60)
[2020-10-18] MEDS: Budesonide/Formoterol 160/4.5 1 PUFF INH IH SCH ×2 (08:03→20:47)
[2020-10-18] MEDS: polyethylene glycoL 3350 17 GM POWD.PACK PO SCH (08:04)
[2020-10-18] MEDS: Magnesium Oxide 400 MG TABLET PO SCH (08:07)
[2020-10-18] MEDS: Furosemide 40 MG/4 ML VIAL IVP SCH ×2 (08:08→16:59)
[2020-10-18] MEDS: Artificial Tears SOLN 15 ML BOTTLE BOTH EYES SCH ×3 (08:08→20:18)
[2020-10-18] MEDS: Metoprolol XL (24 HR) Succ 25 MG TAB.ER.24H PO SCH (08:08)
[2020-10-18] MEDS: Gabapentin 400 MG CAPSULE PO SCH ×2 (08:08→20:17)
[2020-10-18] MEDS: Hydrocortisone 10 MG TABLET PO SCH ×3 (08:08→20:16)
[2020-10-18] MEDS: lisinopriL 5 MG TABLET PO SCH (08:09)
[2020-10-18] MEDS: *HR* Amiodarone 200 MG TABLET PO SCH (08:09)
[2020-10-18] MEDS: Spironolactone 25 MG TABLET PO SCH (08:09)
[2020-10-18] MEDS ORDERED: Insulin LISPRO 300 UNITS/3 ML VIAL SUBQ SCH (11:30)
[2020-10-18] MEDS: *HR* Rivaroxaban 10 MG TABLET PO SCH (16:59)
[2020-10-18] MEDS: Melatonin 3 MG TABLET PO SCH (20:17)
[2020-10-18] MEDS: traZODone 50 MG TABLET PO SCH (20:17)
[2020-10-18] MEDS: tiZANidine 4 MG TABLET PO SCH (20:17)
[2020-10-19 03:49] LABS: BUN/Creatinine Ratio 17 (6-26); Blood Urea Nitrogen 20 mg/dL (8-23); Calcium 8.3 mg/dL (8.6-10.3); Carbon Dioxide 29 mEq/L (23-29); Chloride 99 mEq/L (98-107); Glucose 129 mg/dL (70-105); Magnesium 1.9 mg/dL (1.6-2.6); Osmolality,Calculated 286 (280-300); Potassium 3.6 mEq/L (3.5-5.1); Sodium 136 mEq/L (136-145); eGFR For African Americans > 60 (> 60); eGFR For Non-African Americans > 60 (> 60)
[2020-10-19] MEDS: Insulin LISPRO 300 UNITS/3 ML VIAL SUBQ SCH ×4 (07:32→20:19)
[2020-10-19] MEDS: Metoprolol XL (24 HR) Succ 25 MG TAB.ER.24H PO SCH (08:03)
[2020-10-19] MEDS: polyethylene glycoL 3350 17 GM POWD.PACK PO SCH ×2 (08:03→20:16)
[2020-10-19] MEDS: Sennosides/Docusate Sodium TABLET PO SCH ×2 (08:04→20:16)
[2020-10-19] MEDS: Hydrocortisone 10 MG TABLET PO SCH ×3 (08:04→20:18)
[2020-10-19] MEDS: lisinopriL 5 MG TABLET PO SCH (08:04)
[2020-10-19] MEDS: *HR* Amiodarone 200 MG TABLET PO SCH (08:04)
[2020-10-19] MEDS: Gabapentin 400 MG CAPSULE PO SCH ×2 (08:04→20:18)
[2020-10-19] MEDS: Spironolactone 25 MG TABLET PO SCH (08:04)
[2020-10-19] MEDS: Magnesium Oxide 400 MG TABLET PO SCH (08:04)
[2020-10-19] MEDS: Furosemide 40 MG/4 ML VIAL IVP SCH (08:04)
[2020-10-19] MEDS: Artificial Tears SOLN 15 ML BOTTLE BOTH EYES SCH ×3 (08:05→20:16)
[2020-10-19] MEDS: Budesonide/Formoterol 160/4.5 1 PUFF INH IH SCH ×2 (08:21→20:37)
[2020-10-19] MEDS: *HR* Rivaroxaban 10 MG TABLET PO SCH (16:46)
[2020-10-19] MEDS: Torsemide 20 MG TABLET PO SCH (20:16)
[2020-10-19] MEDS: traZODone 50 MG TABLET PO SCH (20:16)
[2020-10-19] MEDS: Melatonin 3 MG TABLET PO SCH (20:18)
[2020-10-19] MEDS: tiZANidine 4 MG TABLET PO SCH (20:18)
[2020-10-20 06:34] LABS: BUN/Creatinine Ratio 18 (6-26); Blood Urea Nitrogen 24 mg/dL (8-23); Calcium 8.5 mg/dL (8.6-10.3); Carbon Dioxide 29 mEq/L (23-29); Chloride 100 mEq/L (98-107); Glucose 122 mg/dL (70-105); Magnesium 1.9 mg/dL (1.6-2.6); Osmolality,Calculated 287 (280-300); Potassium 4.1 mEq/L (3.5-5.1); Sodium 136 mEq/L (136-145); eGFR For African Americans > 60 (> 60); eGFR For Non-African Americans 54 (> 60)
[2020-10-20 06:52] VITALS: BP 103/63
[2020-10-20] MEDS: Insulin LISPRO 300 UNITS/3 ML VIAL SUBQ SCH ×2 (07:19→11:42)
[2020-10-20] MEDS: Budesonide/Formoterol 160/4.5 1 PUFF INH IH SCH (07:57)
[2020-10-20] MEDS: polyethylene glycoL 3350 17 GM POWD.PACK PO SCH (08:51)
[2020-10-20] MEDS: Artificial Tears SOLN 15 ML BOTTLE BOTH EYES SCH (08:52)
[2020-10-20] MEDS: Sennosides/Docusate Sodium TABLET PO SCH (08:52)
[2020-10-20] MEDS: Hydrocortisone 10 MG TABLET PO SCH (08:52)
[2020-10-20] MEDS: *HR* Amiodarone 200 MG TABLET PO SCH (08:52)
[2020-10-20] MEDS: Gabapentin 400 MG CAPSULE PO SCH (08:52)
[2020-10-20] MEDS: Magnesium Oxide 400 MG TABLET PO SCH (08:52)
[2020-10-20] MEDS: Spironolactone 25 MG TABLET PO SCH (08:52)
[2020-10-20] MEDS: Torsemide 20 MG TABLET PO SCH (08:52)
[2020-10-20] MEDS: Metoprolol XL (24 HR) Succ 25 MG TAB.ER.24H PO SCH (08:52)
[2020-10-20] MEDS: lisinopriL 5 MG TABLET PO SCH (08:53)
[2020-10-21] MEDS ORDERED: Torsemide 20 MG TABLET PO SCH (09:00)
== END 2020-10-20 14:22 | disposition home health service (06) | DRG 291 ==
LOC: EMEROOARM 17:15 → 3BNU 17:15 → SUATTDRO 21:48 → 3BNU 23:00 → SUATTDRO 10-18 11:51
PROVIDERS: ADMIT Family Medicine; ATTEND Internal Medicine

== ENCOUNTER 2020-12-02 13:16 | Inpatient (IN) ==
[2020-12-02] MEDS ORDERED: Hydrocortisone Sodium Succ 100 MG/2 ML VIAL IVP ONE (13:37)
[2020-12-02] MEDS ORDERED: 0.9 % Sodium Chloride 500 ML IVC ONE (13:38)
[2020-12-02 14:10] LABS: Basophils # 0.1 K/mcL (0.0-0.2); Basophils % 0.7 %; Eosinophils # 0.3 K/mcL (0.0-0.6); Eosinophils % 2.9 %; Hematocrit 36.2 % (37.5-50.1); Hemoglobin 11.1 g/dL (12.9-16.9); Immature Granulocytes % 0.6 % (0-4); Lymphocytes % 11.1 %; Mean Corpuscular HGB Conc 30.7 g/dL (31.6-35.5); Mean Corpuscular Hemoglobin 29.7 pg (28.0-33.3); Mean Corpuscular Volume 96.8 fL (83.0-100.0); Mean Platelet Volume 9.5 fL (9.4-12.4); Monocytes # 1.1 K/mcL (0.0-1.3); Monocytes % 12.4 %; Neutrophils # 6.4 K/mcL (1.6-8.9); Platelet Count 223 K/mcL (140-400); Red Blood Count 3.74 M/mcL (4.19-5.50); Red Cell Distribution Width 15.8 % (11.5-14.5); Segmented Neutrophils % 72.3 %; White Blood Count 8.9 K/mcL (4.3-11.1)
[2020-12-02] MEDS ORDERED: 0.9 % Sodium Chloride 500 ML ONE (14:20)
[2020-12-02 14:27] LABS: Alanine Aminotransferase 46 Units/L (7-52); Albumin 3.3 g/dL (3.5-5.7); Albumin/Globulin Ratio 1.3 (1.1-2.2); Alkaline Phosphatase 92 Units/L (34-104); Aspartate Amino Transferase 23 Units/L (13-39); BUN/Creatinine Ratio 15 (6-26); Bilirubin,Direct 0.1 mg/dL (0.0-0.2); Bilirubin,Indirect 0.3 mg/dL (0.0-1.0); Bilirubin,Total 0.4 mg/dL (0.3-1.0); Blood Urea Nitrogen 28 mg/dL (8-23); Carbon Dioxide 30 mEq/L (23-29); Chloride 102 mEq/L (98-107); Globulin 2.5 g/dL (2.4-3.5); Glucose 107 mg/dL (70-105); Osmolality,Calculated 294 (280-300); Sodium 139 mEq/L (136-145); Total Protein 5.8 g/dL (6.4-8.9); Troponin I < 0.03 ng/mL (< 0.04); eGFR For African Americans 43 (> 60); eGFR For Non-African Americans 36 (> 60)
[2020-12-02] MEDS ORDERED: Norepinephrine 4 MG/254 ML IV.SOLN IVC SCH (15:00)
[2020-12-02] MEDS ORDERED: *HR* Norepinephrine 4 MG/4 ML VIAL IVC ONE (15:03)
[2020-12-02] MEDS ORDERED: 0.9 % Sodium Chloride 250 ML ONE (15:03)
[2020-12-02 16:05] LABS: Bilirubin,Urine Negative (Negative); Blood,Urine Negative (Negative); Clarity,Urine Clear (Clear); Color,Urine Light-Yellow (Yellow); Glucose,Urine (UA) Normal (Normal); Ketones,Urine Negative (Negative); Leukocyte Esterase,Urine Negative (Negative); Nitrite,Urine Negative (Negative); Protein,Urine Negative (Neg-Trace); Urobilinogen,Urine Normal (Normal)
[2020-12-02] MEDS ORDERED: Piperacillin/Tazobactam 3.375 GM in 0.9 % Sodium Chloride Mini Bag 100 ML IVPB ONE (17:02)
[2020-12-02] MEDS ORDERED: Vancomycin (wt based) 1,000 MG VIAL IV STA (17:02)
[2020-12-02] MEDS ORDERED: Vancomycin 2,000 MG/520 ML IV.SOLN IVPB ONE (17:10)
[2020-12-02] MEDS ORDERED: Naloxone 0.4 MG/ML INJ IVP PRN (17:53)
[2020-12-02] MEDS ORDERED: Vancomycin (wt based) 1,000 MG VIAL IVPB SCH (18:00)
[2020-12-02] MEDS ORDERED: Perflutren Lipid Microsphere 1.3 ML in 0.9 % Sodium Chloride 8.7 ML IVP PRN ×2 (18:07→18:45)
[2020-12-02 18:43] LABS: Thyroid Stimulating Hormone 1.752 mcIU/mL (0.340-5.600)
[2020-12-02] MEDS: Albumin Human 5% 12.5 GM/250 ML IV.SOLN IVC SCH (20:37)
[2020-12-02] MEDS: *HR* Heparin 5,000 UNIT/ML VIAL SQ SCH (20:38)
[2020-12-02] MEDS: Hydrocortisone Sodium Succ 100 MG/2 ML VIAL IVP SCH (23:31)
[2020-12-03] MEDS: Albumin Human 5% 12.5 GM/250 ML IV.SOLN IVC SCH (00:42)
[2020-12-03] MEDS: Piperacillin/Tazobactam 3.375 GM in 0.9 % Sodium Chloride Mini Bag 100 ML IVPB SCH ×2 (03:39→10:28)
[2020-12-03 04:20] LABS: VBG Ionized Calcium 1.09 mmol/L (1.15-1.35)
[2020-12-03 04:32] LABS: Alanine Aminotransferase 39 Units/L (7-52); Albumin 3.6 g/dL (3.5-5.7); Albumin/Globulin Ratio 1.4 (1.1-2.2); Alkaline Phosphatase 91 Units/L (34-104); Aspartate Amino Transferase 17 Units/L (13-39); BUN/Creatinine Ratio 18 (6-26); Bilirubin,Total 0.7 mg/dL (0.3-1.0); Blood Urea Nitrogen 25 mg/dL (8-23); Calcium 8.2 mg/dL (8.6-10.3); Carbon Dioxide 28 mEq/L (23-29); Chloride 103 mEq/L (98-107); Globulin 2.6 g/dL (2.4-3.5); Glucose 130 mg/dL (70-105); Magnesium 1.9 mg/dL (1.6-2.6); Osmolality,Calculated 294 (280-300); Phosphorous 3.3 mg/dL (2.7-4.5); Sodium 139 mEq/L (136-145); Total Protein 6.2 g/dL (6.4-8.9); eGFR For African Americans > 60 (> 60); eGFR For Non-African Americans 51 (> 60)
[2020-12-03] MEDS: *HR* Heparin 5,000 UNIT/ML VIAL SQ SCH ×3 (06:15→22:01)
[2020-12-03 07:14] LABS: Hematocrit 37.7 % (37.5-50.1); Hemoglobin 11.8 g/dL (12.9-16.9); Mean Corpuscular HGB Conc 31.3 g/dL (31.6-35.5); Mean Corpuscular Hemoglobin 29.6 pg (28.0-33.3); Mean Corpuscular Volume 94.7 fL (83.0-100.0); Mean Platelet Volume 9.9 fL (9.4-12.4); Platelet Count 238 K/mcL (140-400); Red Blood Count 3.98 M/mcL (4.19-5.50); Red Cell Distribution Width 15.4 % (11.5-14.5); White Blood Count 10.7 K/mcL (4.3-11.1)
[2020-12-03] MEDS: Hydrocortisone Sodium Succ 100 MG/2 ML VIAL IVP SCH ×2 (08:32→16:16)
[2020-12-03] MEDS ORDERED: Calcium Gluconate 1gm/50mL 1 GM/50 ML BAG IVPB ONE (08:40)
[2020-12-03] MEDS ORDERED: D5% in Water 1,000 ML IVC PRN ×2 (10:46→12:19)
[2020-12-03] MEDS ORDERED: Dextrose Gel 15 GM/37.5 ML TUBE PO PRN ×4 (10:46→12:19)
[2020-12-03] MEDS ORDERED: *HR* Dextrose 50 % in Water (Vial) 50 ML VIAL IVP PRN ×2 (10:46→12:19)
[2020-12-03] MEDS ORDERED: Insulin LISPRO 300 UNITS/3 ML VIAL SUBQ SCH (12:00)
[2020-12-03] MEDS ORDERED: Perflutren Lipid Microsphere 1.3 ML in 0.9 % Sodium Chloride 8.7 ML IVP PRN (12:19)
[2020-12-03] MEDS ORDERED: Norepinephrine 4 MG/254 ML IV.SOLN IVC SCH (12:19)
[2020-12-03] MEDS ORDERED: Naloxone 0.4 MG/ML INJ IVP PRN (12:19)
[2020-12-03] MEDS: Insulin LISPRO 300 UNITS/3 ML VIAL SUBQ SCH ×2 (16:08→20:06)
[2020-12-03] MEDS ORDERED: Vancomycin 2,000 MG/520 ML IV.SOLN IVPB SCH (19:00)
[2020-12-03] MEDS ORDERED: Metoprolol XL (24 HR) Succ 25 MG TAB.ER.24H PO SCH ×2 (21:00)
[2020-12-03] MEDS ORDERED: Torsemide 20 MG TABLET PO SCH ×2 (21:00)
[2020-12-03] MEDS: Metoprolol XL (24 HR) Succ 25 MG TAB.ER.24H PO SCH (22:01)
[2020-12-03] MEDS: Torsemide 20 MG TABLET PO SCH (22:01)
[2020-12-04] MEDS: Insulin LISPRO 300 UNITS/3 ML VIAL SUBQ SCH ×7 (00:56→23:01)
[2020-12-04] MEDS: Hydrocortisone Sodium Succ 100 MG/2 ML VIAL IVP SCH ×4 (01:00→23:21)
[2020-12-04 03:36] LABS: Basophils % 0.2 %; Eosinophils % 0.2 %; Hematocrit 37.5 % (37.5-50.1); Hemoglobin 11.8 g/dL (12.9-16.9); Immature Granulocytes % 0.8 % (0-4); Lymphocytes # 0.6 K/mcL (0.6-4.6); Mean Corpuscular HGB Conc 31.5 g/dL (31.6-35.5); Mean Corpuscular Hemoglobin 29.7 pg (28.0-33.3); Mean Corpuscular Volume 94.5 fL (83.0-100.0); Mean Platelet Volume 9.5 fL (9.4-12.4); Monocytes # 0.7 K/mcL (0.0-1.3); Monocytes % 6.8 %; Neutrophils # 8.5 K/mcL (1.6-8.9); Platelet Count 217 K/mcL (140-400); Red Blood Count 3.97 M/mcL (4.19-5.50); Red Cell Distribution Width 15.5 % (11.5-14.5); White Blood Count 9.9 K/mcL (4.3-11.1)
[2020-12-04 03:59] LABS: Amylase 21 Units/L (29-103); Lipase 18 Units/L (11-82)
[2020-12-04 04:00] LABS: Albumin 3.6 g/dL (3.5-5.7); Albumin/Globulin Ratio 1.4 (1.1-2.2); Bilirubin,Total 0.3 mg/dL (0.3-1.0); Calcium 8.7 mg/dL (8.6-10.3); Globulin 2.6 g/dL (2.4-3.5); Potassium 3.8 mEq/L (3.5-5.1); Total Protein 6.2 g/dL (6.4-8.9)
[2020-12-04] MEDS: *HR* Heparin 5,000 UNIT/ML VIAL SQ SCH ×3 (05:18→23:02)
[2020-12-04] MEDS: Spironolactone 25 MG TABLET PO SCH (08:52)
[2020-12-04] MEDS: Metoprolol XL (24 HR) Succ 25 MG TAB.ER.24H PO SCH (08:52)
[2020-12-04] MEDS: Torsemide 20 MG TABLET PO SCH (08:52)
[2020-12-04] MEDS ORDERED: Spironolactone 25 MG TABLET PO SCH (09:00)
[2020-12-04] MEDS ORDERED: Nitroglycerin 0.4 MG TAB.SUBL SL PRN (13:10)
[2020-12-04] MEDS ORDERED: Ipratropium/Albuterol Neb 3 ML IH PRN (18:11)
[2020-12-04] MEDS: traZODone 50 MG TABLET PO SCH (23:00)
[2020-12-04] MEDS: Lactobacillus 1 EACH CAP.SPRINK PO SCH (23:01)
[2020-12-04] MEDS: Gabapentin 400 MG CAPSULE PO SCH (23:01)
[2020-12-04] MEDS: Melatonin 3 MG TABLET PO SCH (23:01)
[2020-12-05 01:27] LABS: Basophils # 0.1 K/mcL (0.0-0.2); Basophils % 0.8 %; Eosinophils % 0.3 %; Hematocrit 39.8 % (37.5-50.1); Hemoglobin 12.4 g/dL (12.9-16.9); Immature Granulocytes % 1.1 % (0-4); Lymphocytes # 0.6 K/mcL (0.6-4.6); Mean Corpuscular HGB Conc 31.2 g/dL (31.6-35.5); Mean Corpuscular Volume 96.1 fL (83.0-100.0); Mean Platelet Volume 9.7 fL (9.4-12.4); Monocytes # 0.6 K/mcL (0.0-1.3); Monocytes % 6.5 %; Neutrophils # 7.7 K/mcL (1.6-8.9); Platelet Count 206 K/mcL (140-400); Red Blood Count 4.14 M/mcL (4.19-5.50); Red Cell Distribution Width 15.4 % (11.5-14.5); Segmented Neutrophils % 84.3 %; White Blood Count 9.2 K/mcL (4.3-11.1)
[2020-12-05 01:40] LABS: BUN/Creatinine Ratio 23 (6-26); Blood Urea Nitrogen 32 mg/dL (8-23); Calcium 8.6 mg/dL (8.6-10.3); Carbon Dioxide 25 mEq/L (23-29); Chloride 102 mEq/L (98-107); Glucose 224 mg/dL (70-105); Magnesium 2.1 mg/dL (1.6-2.6); Osmolality,Calculated 296 (280-300); Potassium 3.8 mEq/L (3.5-5.1); Sodium 136 mEq/L (136-145); eGFR For African Americans > 60 (> 60); eGFR For Non-African Americans 51 (> 60)
[2020-12-05 02:12] LABS: Estimated Average Glucose 137 mg/dl; Hemoglobin A1C 6.4 %
[2020-12-05] MEDS: *HR* Heparin 5,000 UNIT/ML VIAL SQ SCH ×3 (05:24→21:39)
[2020-12-05] MEDS: Insulin LISPRO 300 UNITS/3 ML VIAL SUBQ SCH ×4 (10:28→21:39)
[2020-12-05] MEDS: Metoprolol XL (24 HR) Succ 25 MG TAB.ER.24H PO SCH (10:39)
[2020-12-05] MEDS: Lactobacillus 1 EACH CAP.SPRINK PO SCH ×2 (10:39→21:38)
[2020-12-05] MEDS: Hydrocortisone Sodium Succ 100 MG/2 ML VIAL IVP SCH ×2 (10:40→17:34)
[2020-12-05] MEDS: Spironolactone 25 MG TABLET PO SCH (10:40)
[2020-12-05] MEDS: Gabapentin 400 MG CAPSULE PO SCH ×2 (10:40→21:38)
[2020-12-05] MEDS: Cholecalciferol (D-3) 1,000 UNIT (25MCG) TABLET PO SCH (10:40)
[2020-12-05] MEDS: *HR* Amiodarone 200 MG TABLET PO SCH (10:40)
[2020-12-05] MEDS: *HR* Rivaroxaban 10 MG TABLET PO SCH (17:33)
[2020-12-05] MEDS: Melatonin 3 MG TABLET PO SCH (21:38)
[2020-12-05] MEDS: traZODone 50 MG TABLET PO SCH (21:38)
[2020-12-06] MEDS: Hydrocortisone Sodium Succ 100 MG/2 ML VIAL IVP SCH ×2 (00:49→10:53)
[2020-12-06] MEDS: *HR* Heparin 5,000 UNIT/ML VIAL SQ SCH ×3 (05:25→22:04)
[2020-12-06 07:48] LABS: Basophils # 0.1 K/mcL (0.0-0.2); Basophils % 0.7 %; Eosinophils # 0.1 K/mcL (0.0-0.6); Eosinophils % 0.7 %; Hematocrit 38.1 % (37.5-50.1); Hemoglobin 11.7 g/dL (12.9-16.9); Immature Granulocytes % 1.5 % (0-4); Lymphocytes # 1.1 K/mcL (0.6-4.6); Mean Corpuscular HGB Conc 30.7 g/dL (31.6-35.5); Mean Corpuscular Hemoglobin 29.8 pg (28.0-33.3); Mean Corpuscular Volume 96.9 fL (83.0-100.0); Mean Platelet Volume 9.9 fL (9.4-12.4); Monocytes # 0.9 K/mcL (0.0-1.3); Monocytes % 9.6 %; Neutrophils # 7.5 K/mcL (1.6-8.9); Platelet Count 231 K/mcL (140-400); Red Blood Count 3.93 M/mcL (4.19-5.50); Red Cell Distribution Width 15.4 % (11.5-14.5); Segmented Neutrophils % 76.5 %; White Blood Count 9.8 K/mcL (4.3-11.1)
[2020-12-06 08:08] LABS: Calcium 8.7 mg/dL (8.6-10.3); Magnesium 2.3 mg/dL (1.6-2.6); Potassium 3.9 mEq/L (3.5-5.1)
[2020-12-06] MEDS: Insulin LISPRO 300 UNITS/3 ML VIAL SUBQ SCH ×3 (10:48→16:08)
[2020-12-06] MEDS: Metoprolol XL (24 HR) Succ 25 MG TAB.ER.24H PO SCH (10:52)
[2020-12-06] MEDS: Cholecalciferol (D-3) 1,000 UNIT (25MCG) TABLET PO SCH (10:53)
[2020-12-06] MEDS: Lactobacillus 1 EACH CAP.SPRINK PO SCH ×2 (10:53→22:03)
[2020-12-06] MEDS: *HR* Amiodarone 200 MG TABLET PO SCH (10:53)
[2020-12-06] MEDS: Gabapentin 400 MG CAPSULE PO SCH ×2 (10:53→22:03)
[2020-12-06] MEDS: Spironolactone 25 MG TABLET PO SCH (10:53)
[2020-12-06] MEDS: polyethylene glycoL 3350 17 GM POWD.PACK PO SCH (14:46)
[2020-12-06] MEDS: Sennosides/Docusate Sodium TABLET PO SCH ×2 (14:51→22:02)
[2020-12-06] MEDS: *HR* Rivaroxaban 10 MG TABLET PO SCH (16:14)
[2020-12-06] MEDS: traZODone 50 MG TABLET PO SCH (22:03)
[2020-12-06] MEDS: Melatonin 3 MG TABLET PO SCH (22:03)
[2020-12-07] MEDS: Insulin LISPRO 300 UNITS/3 ML VIAL SUBQ SCH ×5 (00:22→20:20)
[2020-12-07 05:31] LABS: Basophils # 0.1 K/mcL (0.0-0.2); Basophils % 1.2 %; Eosinophils # 0.2 K/mcL (0.0-0.6); Eosinophils % 1.9 %; Hematocrit 38.3 % (37.5-50.1); Hemoglobin 11.8 g/dL (12.9-16.9); Immature Granulocytes % 2.5 % (0-4); Lymphocytes % 19.1 %; Mean Corpuscular HGB Conc 30.8 g/dL (31.6-35.5); Mean Corpuscular Hemoglobin 29.9 pg (28.0-33.3); Mean Platelet Volume 9.8 fL (9.4-12.4); Monocytes # 1.2 K/mcL (0.0-1.3); Monocytes % 11.5 %; Neutrophils # 6.7 K/mcL (1.6-8.9); Nucleated Red Blood Cells 0.3 /100 WBC (0); Platelet Count 216 K/mcL (140-400); Red Blood Count 3.95 M/mcL (4.19-5.50); Red Cell Distribution Width 15.4 % (11.5-14.5); Segmented Neutrophils % 63.8 %; White Blood Count 10.5 K/mcL (4.3-11.1)
[2020-12-07 05:49] LABS: Alanine Aminotransferase 36 Units/L (7-52); Albumin 3.3 g/dL (3.5-5.7); Albumin/Globulin Ratio 1.4 (1.1-2.2); Alkaline Phosphatase 73 Units/L (34-104); Aspartate Amino Transferase 19 Units/L (13-39); BUN/Creatinine Ratio 22 (6-26); Bilirubin,Direct 0.1 mg/dL (0.0-0.2); Bilirubin,Indirect 0.2 mg/dL (0.0-1.0); Bilirubin,Total 0.3 mg/dL (0.3-1.0); Blood Urea Nitrogen 31 mg/dL (8-23); Calcium 8.5 mg/dL (8.6-10.3); Carbon Dioxide 29 mEq/L (23-29); Chloride 104 mEq/L (98-107); Globulin 2.3 g/dL (2.4-3.5); Glucose 114 mg/dL (70-105); Magnesium 2.1 mg/dL (1.6-2.6); Osmolality,Calculated 291 (280-300); Potassium 3.8 mEq/L (3.5-5.1); Sodium 137 mEq/L (136-145); Total Protein 5.6 g/dL (6.4-8.9); eGFR For African Americans > 60 (> 60); eGFR For Non-African Americans 50 (> 60)
[2020-12-07] MEDS: *HR* Heparin 5,000 UNIT/ML VIAL SQ SCH ×3 (05:55→21:58)
[2020-12-07] MEDS: Lactobacillus 1 EACH CAP.SPRINK PO SCH ×2 (08:57→21:59)
[2020-12-07] MEDS: Metoprolol XL (24 HR) Succ 25 MG TAB.ER.24H PO SCH (08:57)
[2020-12-07] MEDS: Hydrocortisone 10 MG TABLET PO SCH ×3 (08:57→22:13)
[2020-12-07] MEDS: Gabapentin 400 MG CAPSULE PO SCH ×2 (08:57→21:59)
[2020-12-07] MEDS: Cholecalciferol (D-3) 1,000 UNIT (25MCG) TABLET PO SCH (08:58)
[2020-12-07] MEDS: Spironolactone 25 MG TABLET PO SCH (08:59)
[2020-12-07] MEDS: *HR* Amiodarone 200 MG TABLET PO SCH (08:59)
[2020-12-07] MEDS: Sennosides/Docusate Sodium TABLET PO SCH ×2 (08:59→21:58)
[2020-12-07] MEDS: polyethylene glycoL 3350 17 GM POWD.PACK PO SCH (08:59)
[2020-12-07] MEDS: *HR* Rivaroxaban 10 MG TABLET PO SCH (16:22)
[2020-12-07] MEDS ORDERED: Ringers Solution, Lactated 1,000 ML IVC ONE (16:36)
[2020-12-07] MEDS: Melatonin 3 MG TABLET PO SCH (21:58)
[2020-12-07] MEDS: traZODone 50 MG TABLET PO SCH (21:58)
[2020-12-08 03:55] LABS: Basophils # 0.1 K/mcL (0.0-0.2); Basophils % 0.8 %; Eosinophils # 0.2 K/mcL (0.0-0.6); Eosinophils % 1.8 %; Hematocrit 36.7 % (37.5-50.1); Hemoglobin 11.3 g/dL (12.9-16.9); Immature Granulocytes % 1.8 % (0-4); Lymphocytes # 0.9 K/mcL (0.6-4.6); Lymphocytes % 8.6 %; Mean Corpuscular HGB Conc 30.8 g/dL (31.6-35.5); Mean Corpuscular Hemoglobin 29.7 pg (28.0-33.3); Mean Corpuscular Volume 96.6 fL (83.0-100.0); Monocytes # 1.1 K/mcL (0.0-1.3); Monocytes % 10.4 %; Neutrophils # 8.3 K/mcL (1.6-8.9); Platelet Count 221 K/mcL (140-400); Red Cell Distribution Width 15.5 % (11.5-14.5); Segmented Neutrophils % 76.6 %; White Blood Count 10.8 K/mcL (4.3-11.1)
[2020-12-08 04:13] LABS: BUN/Creatinine Ratio 24 (6-26); Blood Urea Nitrogen 29 mg/dL (8-23); Calcium 8.5 mg/dL (8.6-10.3); Carbon Dioxide 28 mEq/L (23-29); Chloride 102 mEq/L (98-107); Glucose 119 mg/dL (70-105); Magnesium 2.2 mg/dL (1.6-2.6); Osmolality,Calculated 289 (280-300); Potassium 4.4 mEq/L (3.5-5.1); Sodium 136 mEq/L (136-145); eGFR For African Americans > 60 (> 60); eGFR For Non-African Americans > 60 (> 60)
[2020-12-08] MEDS: *HR* Heparin 5,000 UNIT/ML VIAL SQ SCH ×2 (06:10→14:12)
[2020-12-08] MEDS: Insulin LISPRO 300 UNITS/3 ML VIAL SUBQ SCH ×4 (07:37→22:06)
[2020-12-08] MEDS: Gabapentin 400 MG CAPSULE PO SCH ×2 (08:45→22:03)
[2020-12-08] MEDS: Cholecalciferol (D-3) 1,000 UNIT (25MCG) TABLET PO SCH (08:45)
[2020-12-08] MEDS: Metoprolol XL (24 HR) Succ 25 MG TAB.ER.24H PO SCH (08:45)
[2020-12-08] MEDS: Lactobacillus 1 EACH CAP.SPRINK PO SCH ×2 (08:46→22:04)
[2020-12-08] MEDS: *HR* Amiodarone 200 MG TABLET PO SCH (08:46)
[2020-12-08] MEDS: Hydrocortisone 10 MG TABLET PO SCH ×3 (08:49→22:03)
[2020-12-08] MEDS: polyethylene glycoL 3350 17 GM POWD.PACK PO SCH (09:17)
[2020-12-08] MEDS: *HR* Rivaroxaban 10 MG TABLET PO SCH (16:41)
[2020-12-08] MEDS: traZODone 50 MG TABLET PO SCH (22:04)
[2020-12-08] MEDS: Melatonin 3 MG TABLET PO SCH (22:04)
[2020-12-09] MEDS: *HR* Heparin 5,000 UNIT/ML VIAL SQ SCH ×2 (00:55→06:09)
[2020-12-09 01:20] LABS: Basophils # 0.1 K/mcL (0.0-0.2); Basophils % 0.6 %; Eosinophils # 0.2 K/mcL (0.0-0.6); Eosinophils % 2.1 %; Hematocrit 39.4 % (37.5-50.1); Hemoglobin 12.8 g/dL (12.9-16.9); Immature Granulocytes % 2.1 % (0-4); Lymphocytes # 0.8 K/mcL (0.6-4.6); Mean Corpuscular HGB Conc 32.5 g/dL (31.6-35.5); Mean Corpuscular Hemoglobin 30.7 pg (28.0-33.3); Mean Corpuscular Volume 94.5 fL (83.0-100.0); Mean Platelet Volume 9.8 fL (9.4-12.4); Monocytes # 0.9 K/mcL (0.0-1.3); Monocytes % 8.2 %; Neutrophils # 8.7 K/mcL (1.6-8.9); Platelet Count 221 K/mcL (140-400); Red Blood Count 4.17 M/mcL (4.19-5.50); Red Cell Distribution Width 15.4 % (11.5-14.5); White Blood Count 10.8 K/mcL (4.3-11.1)
[2020-12-09 01:47] LABS: % Iron Saturation 19 % (20-55); BUN/Creatinine Ratio 22 (6-26); Blood Urea Nitrogen 26 mg/dL (8-23); Calcium 8.9 mg/dL (8.6-10.3); Carbon Dioxide 28 mEq/L (23-29); Chloride 100 mEq/L (98-107); Glucose 150 mg/dL (70-105); Iron 58 mcg/dL (65-175); Magnesium 2.1 mg/dL (1.6-2.6); Osmolality,Calculated 288 (280-300); Sodium 135 mEq/L (136-145); Transferrin 217 mg/dL (203-362); eGFR For African Americans > 60 (> 60); eGFR For Non-African Americans > 60 (> 60)
[2020-12-09 01:55] LABS: Ferritin 52 ng/mL (20-250)
[2020-12-09 02:01] LABS: Folate 11.8 ng/mL (3.0-16.0)
[2020-12-09] MEDS ORDERED: Iron Sucrose Complex 250 MG in 0.9 % Sodium Chloride 250 ML IVPB ONE (07:32)
[2020-12-09] MEDS ORDERED: Cyanocobalamin (B-12) 1,000 MCG/ML VIAL SQ ONE (07:33)
[2020-12-09] MEDS: Insulin LISPRO 300 UNITS/3 ML VIAL SUBQ SCH ×3 (09:41→17:16)
[2020-12-09] MEDS: polyethylene glycoL 3350 17 GM POWD.PACK PO SCH (09:46)
[2020-12-09] MEDS: Metoprolol XL (24 HR) Succ 25 MG TAB.ER.24H PO SCH (09:46)
[2020-12-09] MEDS: Gabapentin 400 MG CAPSULE PO SCH (09:46)
[2020-12-09] MEDS: Lactobacillus 1 EACH CAP.SPRINK PO SCH (09:46)
[2020-12-09] MEDS: *HR* Amiodarone 200 MG TABLET PO SCH (09:46)
[2020-12-09] MEDS: Hydrocortisone 10 MG TABLET PO SCH ×2 (09:46→15:45)
[2020-12-09] MEDS: Cholecalciferol (D-3) 1,000 UNIT (25MCG) TABLET PO SCH (09:47)
[2020-12-09 16:01] VITALS: BP 128/79
[2020-12-09] MEDS: *HR* Rivaroxaban 10 MG TABLET PO SCH (17:17)
== END 2020-12-09 17:58 | disposition home health service (06) | DRG 644 ==
LOC: EMEROOARM 13:16 → ICNU 13:16 → OBSVTOIN 18:55 → SUATTDRO 18:55 → ICNU 20:04 → 2NENU 12-03 19:30
PROVIDERS: ADMIT Internal Medicine; ATTEND Pharmacist

== ENCOUNTER 2021-01-07 18:50 | Inpatient (IN) ==
[2021-01-07] MEDS ORDERED: Hydrocortisone Sodium Succ 100 MG/2 ML VIAL ONE (19:04)
[2021-01-07] MEDS ORDERED: Hydrocortisone Sodium Succ 100 MG/2 ML VIAL IVP ONE (19:10)
[2021-01-07] MEDS ORDERED: 0.9 % Sodium Chloride 1,000 ML IVC ONE ×2 (19:12→22:35)
[2021-01-07] MEDS ORDERED: Ondansetron 4 MG/2 ML VIAL ONE (19:12)
[2021-01-07] MEDS ORDERED: Ondansetron 4 MG/2 ML VIAL IVP ONE (19:15)
[2021-01-07 19:40] LABS: Basophils # 0.1 K/mcL (0.0-0.2); Basophils % 0.4 %; Eosinophils % 0.2 %; Hemoglobin 14.8 g/dL (12.9-16.9); Immature Granulocytes % 0.7 % (0-4); Lymphocytes # 0.9 K/mcL (0.6-4.6); Lymphocytes % 5.6 %; Mean Corpuscular HGB Conc 32.9 g/dL (31.6-35.5); Mean Corpuscular Hemoglobin 29.4 pg (28.0-33.3); Mean Corpuscular Volume 89.5 fL (83.0-100.0); Mean Platelet Volume 9.8 fL (9.4-12.4); Monocytes # 1.6 K/mcL (0.0-1.3); Monocytes % 9.6 %; Neutrophils # 13.7 K/mcL (1.6-8.9); Platelet Count 324 K/mcL (140-400); Red Blood Count 5.03 M/mcL (4.19-5.50); Red Cell Distribution Width 13.3 % (11.5-14.5); Segmented Neutrophils % 83.5 %; White Blood Count 16.5 K/mcL (4.3-11.1)
[2021-01-07 20:02] LABS: Alanine Aminotransferase 35 Units/L (7-52); Albumin 4.3 g/dL (3.5-5.7); Albumin/Globulin Ratio 1.4 (1.1-2.2); Alkaline Phosphatase 98 Units/L (34-104); Aspartate Amino Transferase 25 Units/L (13-39); BUN/Creatinine Ratio 18 (6-26); Bilirubin,Direct 0.1 mg/dL (0.0-0.2); Bilirubin,Indirect 0.4 mg/dL (0.0-1.0); Bilirubin,Total 0.5 mg/dL (0.3-1.0); Blood Urea Nitrogen 52 mg/dL (8-23); Calcium 9.3 mg/dL (8.6-10.3); Carbon Dioxide 35 mEq/L (23-29); Chloride 85 mEq/L (98-107); Globulin 3.1 g/dL (2.4-3.5); Glucose 160 mg/dL (70-105); Lactate Dehydrogenase 273 Units/L (140-271); Lipase 14 Units/L (11-82); Osmolality,Calculated 299 (280-300); Potassium 2.7 mEq/L (3.5-5.1); Sodium 136 mEq/L (136-145); Total Protein 7.4 g/dL (6.4-8.9); Troponin I < 0.03 ng/mL (< 0.04); eGFR For African Americans 26 (> 60); eGFR For Non-African Americans 21 (> 60)
[2021-01-07 20:19] LABS: INR 2.7; Prothrombin Time 30.6 Seconds (9.4-12.1)
[2021-01-07 20:21] LABS: Activated Partial Thrombo Time 34.8 Seconds (26.0-36.0)
[2021-01-07] MEDS ORDERED: Morphine Sulfate 2 MG/ML SYRINGE IVP ONE (22:35)
[2021-01-07 23:20] LABS: Bilirubin,Urine Negative (Negative); Blood,Urine Negative (Negative); Clarity,Urine Clear (Clear); Color,Urine Light-Yellow (Yellow); Glucose,Urine (UA) Normal (Normal); Ketones,Urine Negative (Negative); Leukocyte Esterase,Urine Negative (Negative); Nitrite,Urine Negative (Negative); PH,Urine 6.5 pH Units (5.0-8.0); Protein,Urine Trace mg/dL (Neg-Trace); Specific Gravity,Urine 1.009 (1.010-1.025); Urobilinogen,Urine Normal (Normal)
[2021-01-07] MEDS ORDERED: Potassium Chloride 40 MEQ, Lidocaine 1% 2 ML in D5% in Water 500 ML IVPB ONE (23:30)
[2021-01-08] MEDS ORDERED: Ondansetron 4 MG/2 ML VIAL IVP PRN (02:05)
[2021-01-08] MEDS ORDERED: Naloxone 0.4 MG/ML INJ IVP PRN (02:05)
[2021-01-08] MEDS ORDERED: 0.9 % Sodium Chloride 1,000 ML IVC SCH (06:00)
[2021-01-08 06:19] LABS: Basophils % 0.4 %; Eosinophils % 0.4 %; Hematocrit 40.6 % (37.5-50.1); Hemoglobin 13.7 g/dL (12.9-16.9); Immature Granulocytes % 0.4 % (0-4); Lymphocytes # 1.1 K/mcL (0.6-4.6); Lymphocytes % 9.8 %; Mean Corpuscular HGB Conc 33.7 g/dL (31.6-35.5); Mean Corpuscular Hemoglobin 30.8 pg (28.0-33.3); Mean Corpuscular Volume 91.2 fL (83.0-100.0); Monocytes # 1.2 K/mcL (0.0-1.3); Monocytes % 10.9 %; Neutrophils # 8.7 K/mcL (1.6-8.9); Platelet Count 264 K/mcL (140-400); Red Blood Count 4.45 M/mcL (4.19-5.50); Red Cell Distribution Width 13.2 % (11.5-14.5); Segmented Neutrophils % 78.1 %; White Blood Count 11.2 K/mcL (4.3-11.1)
[2021-01-08] MEDS: Hydrocortisone Sodium Succ 100 MG/2 ML VIAL IVP SCH ×2 (06:25→12:37)
[2021-01-08 06:40] LABS: Calcium 8.5 mg/dL (8.6-10.3); Magnesium 1.9 mg/dL (1.6-2.6); Potassium 2.7 mEq/L (3.5-5.1)
[2021-01-08] MEDS ORDERED: Potassium Chloride 40 MEQ, Lidocaine 1% 2 ML in 0.9 % Sodium Chloride 500 ML IVPB ONE (08:36)
[2021-01-08 13:00] LABS: Calcium 8.7 mg/dL (8.6-10.3); Potassium 2.8 mEq/L (3.5-5.1)
[2021-01-08] MEDS: *HR* Heparin 5,000 UNIT/ML VIAL SQ SCH ×2 (16:59→21:31)
[2021-01-08 17:19] LABS: Calcium 8.7 mg/dL (8.6-10.3); Potassium 3.1 mEq/L (3.5-5.1)
[2021-01-08] MEDS: 0.9 % Sodium Chloride 1,000 ML IVC SCH (20:35)
[2021-01-09] MEDS: 0.9 % Sodium Chloride 1,000 ML IVC SCH ×3 (04:37→19:35)
[2021-01-09] MEDS: *HR* Heparin 5,000 UNIT/ML VIAL SQ SCH ×3 (05:02→21:28)
[2021-01-09 05:45] LABS: Albumin 3.5 g/dL (3.5-5.7); Albumin/Globulin Ratio 1.4 (1.1-2.2); Bilirubin,Total 0.3 mg/dL (0.3-1.0); Calcium 8.4 mg/dL (8.6-10.3); Globulin 2.5 g/dL (2.4-3.5); Potassium 2.9 mEq/L (3.5-5.1)
[2021-01-09] MEDS ORDERED: 0.9 % Sodium Chloride 250 ML IVC ONE (06:18)
[2021-01-09] MEDS ORDERED: Potassium Chloride 40 MEQ, Lidocaine 1% 2 ML in 0.9 % Sodium Chloride 500 ML IVPB ONE (07:42)
[2021-01-09] MEDS ORDERED: Melatonin 3 MG TABLET PO PRN (20:49)
[2021-01-09] MEDS ORDERED: *HR* OxyCODONE Immed Rel 5 MG TABLET PO ONE (21:00)
[2021-01-10] MEDS: 0.9 % Sodium Chloride 1,000 ML IVC SCH (04:22)
[2021-01-10] MEDS: *HR* Heparin 5,000 UNIT/ML VIAL SQ SCH (06:04)
[2021-01-10 07:15] VITALS: BP 134/72
[2021-01-10 07:43] LABS: Basophils # 0.1 K/mcL (0.0-0.2); Basophils % 0.9 %; Eosinophils # 0.3 K/mcL (0.0-0.6); Eosinophils % 3.6 %; Hematocrit 38.4 % (37.5-50.1); Hemoglobin 12.4 g/dL (12.9-16.9); Immature Granulocytes % 0.6 % (0-4); Lymphocytes # 1.5 K/mcL (0.6-4.6); Lymphocytes % 21.3 %; Mean Corpuscular HGB Conc 32.3 g/dL (31.6-35.5); Mean Corpuscular Hemoglobin 30.2 pg (28.0-33.3); Mean Corpuscular Volume 93.7 fL (83.0-100.0); Mean Platelet Volume 9.9 fL (9.4-12.4); Monocytes # 0.9 K/mcL (0.0-1.3); Monocytes % 12.8 %; Neutrophils # 4.2 K/mcL (1.6-8.9); Platelet Count 247 K/mcL (140-400); Red Cell Distribution Width 13.3 % (11.5-14.5); Segmented Neutrophils % 60.8 %; White Blood Count 6.9 K/mcL (4.3-11.1)
[2021-01-10 07:52] LABS: BUN/Creatinine Ratio 20 (6-26); Blood Urea Nitrogen 26 mg/dL (8-23); Calcium 8.3 mg/dL (8.6-10.3); Carbon Dioxide 30 mEq/L (23-29); Chloride 105 mEq/L (98-107); Glucose 117 mg/dL (70-105); Osmolality,Calculated 294 (280-300); Potassium 3.5 mEq/L (3.5-5.1); Sodium 139 mEq/L (136-145); eGFR For African Americans > 60 (> 60); eGFR For Non-African Americans 55 (> 60)
== END 2021-01-10 14:38 | disposition home health service (06) | DRG 315 ==
LOC: 3BNU 18:50 → EMEROOARM 18:50 → CDU 01-08 00:16 → 2NNU 01-08 11:03
PROVIDERS: ADMIT Internal Medicine; ATTEND Internal Medicine

== ENCOUNTER 2021-02-03 19:02 | Inpatient (IN) ==
[2021-02-03] MEDS ORDERED: 0.9 % Sodium Chloride 1,000 ML ONE (19:20)
[2021-02-03] MEDS ORDERED: Hydrocortisone Sodium Succ 100 MG/2 ML VIAL IVP ONE (19:25)
[2021-02-03 19:59] LABS: Basophils % 0.3 %; Eosinophils % 0.3 %; Hematocrit 37.9 % (37.5-50.1); Hemoglobin 12.5 g/dL (12.9-16.9); Immature Granulocytes % 0.7 % (0-4); Lymphocytes # 0.6 K/mcL (0.6-4.6); Lymphocytes % 5.5 %; Mean Corpuscular Hemoglobin 30.1 pg (28.0-33.3); Mean Corpuscular Volume 91.3 fL (83.0-100.0); Mean Platelet Volume 9.7 fL (9.4-12.4); Monocytes # 1.2 K/mcL (0.0-1.3); Monocytes % 10.9 %; Neutrophils # 8.8 K/mcL (1.6-8.9); Platelet Count 282 K/mcL (140-400); Red Blood Count 4.15 M/mcL (4.19-5.50); Red Cell Distribution Width 15.3 % (11.5-14.5); Segmented Neutrophils % 82.3 %; White Blood Count 10.7 K/mcL (4.3-11.1)
[2021-02-03 20:11] LABS: INR 2.4; Prothrombin Time 26.9 Seconds (9.4-12.1)
[2021-02-03 20:14] LABS: Activated Partial Thrombo Time 34.2 Seconds (26.0-36.0)
[2021-02-03 20:24] LABS: Alanine Aminotransferase 26 Units/L (7-52); Albumin 3.3 g/dL (3.5-5.7); Albumin/Globulin Ratio 1.1 (1.1-2.2); Alkaline Phosphatase 91 Units/L (34-104); Aspartate Amino Transferase 24 Units/L (13-39); BUN/Creatinine Ratio 16 (6-26); Bilirubin,Direct 0.1 mg/dL (0.0-0.2); Bilirubin,Indirect 0.5 mg/dL (0.0-1.0); Bilirubin,Total 0.6 mg/dL (0.3-1.0); Blood Urea Nitrogen 62 mg/dL (8-23); Calcium 8.1 mg/dL (8.6-10.3); Carbon Dioxide 40 mEq/L (23-29); Chloride 81 mEq/L (98-107); Globulin 2.9 g/dL (2.4-3.5); Glucose 162 mg/dL (70-105); Lipase 15 Units/L (11-82); Magnesium 2.1 mg/dL (1.6-2.6); Osmolality,Calculated 299 (280-300); Potassium 2.1 mEq/L (3.5-5.1); Sodium 134 mEq/L (136-145); Total Protein 6.2 g/dL (6.4-8.9); Troponin I < 0.03 ng/mL (< 0.04); eGFR For African Americans 19 (> 60); eGFR For Non-African Americans 15 (> 60)
[2021-02-03] MEDS ORDERED: Potassium Chloride Elixir 20 MEQ/15 ML UDC PO ONE (20:25)
[2021-02-03] MEDS ORDERED: 0.9 % Sodium Chloride 500 ML IVC ONE (21:45)
[2021-02-03] MEDS: 0.9 % Sodium Chloride 1,000 ML IVC SCH (22:12)
[2021-02-03] MEDS ORDERED: Naloxone 0.4 MG/ML INJ IVP PRN (23:53)
[2021-02-03] MEDS ORDERED: 0.9 % Sodium Chloride 1,000 ML IVC ONE (23:57)
[2021-02-04] MEDS: Hydrocortisone Sodium Succ 100 MG/2 ML VIAL IVP SCH ×4 (01:53→20:06)
[2021-02-04] MEDS ORDERED: Dextrose Gel 15 GM/37.5 ML TUBE PO PRN ×2 (03:07)
[2021-02-04] MEDS ORDERED: *HR* Dextrose 50 % in Water (Vial) 50 ML VIAL IVP PRN (03:07)
[2021-02-04] MEDS ORDERED: D5% in Water 1,000 ML IVC PRN (03:07)
[2021-02-04 03:08] LABS: Bilirubin,Urine Negative (Negative); Blood,Urine Negative (Negative); Clarity,Urine Clear (Clear); Color,Urine Light-Yellow (Yellow); Glucose,Urine (UA) Normal (Normal); Ketones,Urine Negative (Negative); Leukocyte Esterase,Urine Negative (Negative); Nitrite,Urine Negative (Negative); PH,Urine 6.5 pH Units (5.0-8.0); Protein,Urine Negative (Neg-Trace); Urobilinogen,Urine Normal (Normal)
[2021-02-04 03:16] LABS: Potassium,Urine 31.4 mEq/L
[2021-02-04 05:41] LABS: Basophils % 0.2 %; Eosinophils % 0.1 %; Hematocrit 42.4 % (37.5-50.1); Immature Granulocytes % 0.6 % (0-4); Lymphocytes # 0.6 K/mcL (0.6-4.6); Lymphocytes % 4.7 %; Mean Platelet Volume 9.9 fL (9.4-12.4); Monocytes # 0.8 K/mcL (0.0-1.3); Monocytes % 6.7 %; Neutrophils # 10.3 K/mcL (1.6-8.9); Platelet Count 331 K/mcL (140-400); Red Blood Count 4.66 M/mcL (4.19-5.50); Red Cell Distribution Width 15.4 % (11.5-14.5); Segmented Neutrophils % 87.7 %; White Blood Count 11.7 K/mcL (4.3-11.1)
[2021-02-04 05:44] LABS: Magnesium 2.6 mg/dL (1.6-2.6)
[2021-02-04 05:46] LABS: Potassium 2.7 mEq/L (3.5-5.1)
[2021-02-04] MEDS: Piperacillin/Tazobactam 3.375 GM in 0.9 % Sodium Chloride Mini Bag 100 ML IVPB SCH ×2 (06:17→16:26)
[2021-02-04] MEDS: Norepinephrine 4 MG/254 ML IV.SOLN IVC SCH ×2 (06:17→15:35)
[2021-02-04 06:40] LABS: VBG HCO3 37 mEq/L (21-27); VBG PCO2 61 mmHg (41-51); VBG PH 7.39 pH Units (7.32-7.42); VBG PO2 76 mmHg (25-50)
[2021-02-04] MEDS: Insulin LISPRO 300 UNITS/3 ML VIAL SUBQ SCH ×4 (07:58→20:02)
[2021-02-04] MEDS: Albumin Human 5% 12.5 GM/250 ML IV.SOLN IVC SCH ×2 (11:18→16:27)
[2021-02-04 12:51] LABS: Calcium 7.9 mg/dL (8.6-10.3); Potassium 2.6 mEq/L (3.5-5.1); Thyroid Stimulating Hormone 0.433 mcIU/mL (0.340-5.600)
[2021-02-04] MEDS ORDERED: Pantoprazole 40 MG VIAL IVP ONE (13:27)
[2021-02-04] MEDS: *HR* Rivaroxaban 15 MG TABLET PO SCH (16:26)
[2021-02-04] MEDS: 0.9 % Sodium Chloride 1,000 ML IVC SCH (16:27)
[2021-02-04] MEDS ORDERED: Ipratropium/Albuterol Neb 3 ML IH PRN (16:55)
[2021-02-04] MEDS ORDERED: *HR* Rivaroxaban 10 MG TABLET PO SCH (17:00)
[2021-02-04 18:40] LABS: Calcium 8.2 mg/dL (8.6-10.3); Potassium 2.8 mEq/L (3.5-5.1)
[2021-02-04 21:47] LABS: Adenovirus Not Detected (Not Detect); Bordetella Pertussis Not Detected (Not Detect); Chlamydophila pneumoniae Not Detected (Not Detect); Coronavirus 229E Not Detected (Not Detect); Coronavirus HKU1 Not Detected (Not Detect); Coronavirus NL63 Not Detected (Not Detect); Coronavirus OC43 Not Detected (Not Detect); Human Metapneumovirus Not Detected (Not Detect); Human Rhinovirus/Enterovirus Not Detected (Not Detect); Influenza A Subtype 2009 H1 Not Detected (Not Detect); Influenza B Not Detected (Not Detect); Mycoplasma pneumoniae Not Detected (Not Detect); Parainfluenza Virus 1 Not Detected (Not Detect); Parainfluenza Virus 2 Not Detected (Not Detect); Parainfluenza Virus 3 Not Detected (Not Detect); Parainfluenza Virus 4 Not Detected (Not Detect); Respiratory Syncytial Virus Not Detected (Not Detect); SARS-CoV-2 Not Detected (Not Detect)
[2021-02-04] MEDS: Acetaminophen 325 MG TABLET PO PRN (23:13)
[2021-02-05] MEDS: 0.9 % Sodium Chloride 1,000 ML IVC SCH ×2 (00:37→11:02)
[2021-02-05] MEDS: Hydrocortisone Sodium Succ 100 MG/2 ML VIAL IVP SCH ×4 (01:23→21:09)
[2021-02-05] MEDS: Norepinephrine 4 MG/254 ML IV.SOLN IVC SCH (01:27)
[2021-02-05 03:58] LABS: Basophils % 0.1 %; Hematocrit 39.8 % (37.5-50.1); Hemoglobin 13.4 g/dL (12.9-16.9); Immature Granulocytes % 0.6 % (0-4); Lymphocytes # 0.7 K/mcL (0.6-4.6); Mean Corpuscular HGB Conc 33.7 g/dL (31.6-35.5); Mean Corpuscular Hemoglobin 29.9 pg (28.0-33.3); Mean Corpuscular Volume 88.8 fL (83.0-100.0); Mean Platelet Volume 9.2 fL (9.4-12.4); Monocytes % 7.6 %; Neutrophils # 11.8 K/mcL (1.6-8.9); Platelet Count 353 K/mcL (140-400); Red Blood Count 4.48 M/mcL (4.19-5.50); Red Cell Distribution Width 14.9 % (11.5-14.5); Segmented Neutrophils % 86.7 %; White Blood Count 13.6 K/mcL (4.3-11.1)
[2021-02-05 04:04] LABS: INR 1.9; Prothrombin Time 21.4 Seconds (9.4-12.1)
[2021-02-05 04:16] LABS: Calcium 8.2 mg/dL (8.6-10.3); Magnesium 2.3 mg/dL (1.6-2.6); Phosphorous 2.7 mg/dL (2.7-4.5); Potassium 2.5 mEq/L (3.5-5.1)
[2021-02-05] MEDS ORDERED: Potassium Chloride Elixir 20 MEQ/15 ML UDC PO ONE ×2 (04:25→13:15)
[2021-02-05] MEDS: Piperacillin/Tazobactam 3.375 GM in 0.9 % Sodium Chloride Mini Bag 100 ML IVPB SCH ×2 (05:35→17:08)
[2021-02-05] MEDS: Insulin LISPRO 300 UNITS/3 ML VIAL SUBQ SCH ×4 (07:38→21:25)
[2021-02-05] MEDS: Acetaminophen 325 MG TABLET PO PRN (07:43)
[2021-02-05] MEDS: *HR* OxyCODONE Immed Rel 5 MG TABLET PO PRN ×2 (11:06→21:08)
[2021-02-05 12:29] LABS: Calcium 8.1 mg/dL (8.6-10.3); Potassium 2.8 mEq/L (3.5-5.1)
[2021-02-05 13:12] LABS: Acinetobacter baumannii by PCR Not Detected (Not Detect); Candida albicans by PCR Not Detected (Not Detect); Candida glabrata by PCR Not Detected (Not Detect); Candida krusei by PCR Not Detected (Not Detect); Candida parapsilosis by PCR Not Detected (Not Detect); Candida tropicalis by PCR Not Detected (Not Detect); Enterobacter cloacae Cmplx PCR Not Detected (Not Detect); Enterobacteriaceae by PCR Not Detected (Not Detect); Enterococcus by PCR Not Detected (Not Detect); Escherichia coli by PCR Not Detected (Not Detect); Klebsiella oxytoca by PCR Not Detected (Not Detect); Klebsiella pneumoniae by PCR Not Detected (Not Detect); Proteus by PCR Not Detected (Not Detect); Pseudomonas aeruginosa by PCR Not Detected (Not Detect); Serratia marcescens by PCR Not Detected (Not Detect); Staphylococcus aureus by PCR Not Detected (Not Detect); Staphylococcus by PCR Not Detected (Not Detect); Streptococcus agalactiae(B)PCR Not Detected (Not Detect); Streptococcus by PCR Not Detected (Not Detect); Streptococcus pneumoniae PCR Not Detected (Not Detect); Streptococcus pyogenes (A) PCR Not Detected (Not Detect)
[2021-02-05] MEDS: *HR* Rivaroxaban 15 MG TABLET PO SCH (16:12)
[2021-02-05] MEDS: Vancomycin 2,000 MG/520 ML IV.SOLN IVPB SCH (16:13)
[2021-02-05] MEDS: Ondansetron 4 MG/2 ML VIAL IVP PRN (19:05)
[2021-02-05 20:48] LABS: VBG Ionized Calcium 1.04 mmol/L (1.15-1.35)
[2021-02-05] MEDS ORDERED: Melatonin 3 MG TABLET PO PRN (21:00)
[2021-02-05 21:05] LABS: Magnesium 2.1 mg/dL (1.6-2.6); Phosphorous 2.5 mg/dL (2.7-4.5)
[2021-02-05 21:08] LABS: Calcium 7.8 mg/dL (8.6-10.3); Potassium 3.5 mEq/L (3.5-5.1)
[2021-02-06] MEDS: traZODone 50 MG TABLET PO SCH ×2 (01:03→21:05)
[2021-02-06] MEDS: Hydrocortisone Sodium Succ 100 MG/2 ML VIAL IVP SCH ×2 (02:15→07:11)
[2021-02-06 02:49] LABS: Basophils % 0.2 %; Hematocrit 36.7 % (37.5-50.1); Hemoglobin 12.1 g/dL (12.9-16.9); Immature Granulocytes % 0.5 % (0-4); Lymphocytes # 0.6 K/mcL (0.6-4.6); Lymphocytes % 5.1 %; Mean Corpuscular Volume 90.8 fL (83.0-100.0); Mean Platelet Volume 9.3 fL (9.4-12.4); Monocytes # 0.9 K/mcL (0.0-1.3); Monocytes % 7.5 %; Neutrophils # 10.7 K/mcL (1.6-8.9); Platelet Count 287 K/mcL (140-400); Red Blood Count 4.04 M/mcL (4.19-5.50); Red Cell Distribution Width 15.1 % (11.5-14.5); Segmented Neutrophils % 86.7 %; White Blood Count 12.3 K/mcL (4.3-11.1)
[2021-02-06 03:08] LABS: Calcium 8.2 mg/dL (8.6-10.3); Potassium 3.1 mEq/L (3.5-5.1)
[2021-02-06] MEDS: Piperacillin/Tazobactam 3.375 GM in 0.9 % Sodium Chloride Mini Bag 100 ML IVPB SCH ×2 (05:20→18:18)
[2021-02-06] MEDS: Norepinephrine 4 MG/254 ML IV.SOLN IVC SCH (07:05)
[2021-02-06] MEDS: Insulin LISPRO 300 UNITS/3 ML VIAL SUBQ SCH ×4 (07:29→21:08)
[2021-02-06] MEDS ORDERED: Fluticasone Propionate Nasal 50 MCG/SPRAY BOTTLE NS PRN (09:06)
[2021-02-06] MEDS ORDERED: Nitroglycerin 0.4 MG TAB.SUBL SL PRN (09:06)
[2021-02-06] MEDS ORDERED: *HR* OxyCODONE Immed Rel 5 MG TABLET PO PRN (09:06)
[2021-02-06] MEDS: Hydrocortisone 10 MG TABLET PO SCH ×2 (11:22→16:23)
[2021-02-06] MEDS: Budesonide/Formoterol 160/4.5 1 PUFF INH IH SCH ×2 (11:32→19:58)
[2021-02-06] MEDS: Vancomycin 2,000 MG/520 ML IV.SOLN IVPB SCH (16:23)
[2021-02-06] MEDS: *HR* Rivaroxaban 15 MG TABLET PO SCH (16:23)
[2021-02-06] MEDS: Lactobacillus 1 EACH CAP.SPRINK PO SCH (21:05)
[2021-02-07 03:27] LABS: Basophils # 0.1 K/mcL (0.0-0.2); Basophils % 0.5 %; Eosinophils % 0.4 %; Hematocrit 34.5 % (37.5-50.1); Hemoglobin 11.3 g/dL (12.9-16.9); Immature Granulocytes % 0.4 % (0-4); Lymphocytes # 1.6 K/mcL (0.6-4.6); Lymphocytes % 15.6 %; Mean Corpuscular HGB Conc 32.8 g/dL (31.6-35.5); Mean Corpuscular Hemoglobin 29.7 pg (28.0-33.3); Mean Corpuscular Volume 90.8 fL (83.0-100.0); Mean Platelet Volume 9.1 fL (9.4-12.4); Monocytes # 1.3 K/mcL (0.0-1.3); Monocytes % 12.8 %; Neutrophils # 7.1 K/mcL (1.6-8.9); Platelet Count 245 K/mcL (140-400); Red Cell Distribution Width 15.4 % (11.5-14.5); Segmented Neutrophils % 70.3 %; White Blood Count 10.1 K/mcL (4.3-11.1)
[2021-02-07 03:45] LABS: Calcium 8.1 mg/dL (8.6-10.3); Phosphorous 3.1 mg/dL (2.7-4.5); Potassium 2.7 mEq/L (3.5-5.1)
[2021-02-07] MEDS ORDERED: Piperacillin/Tazobactam 3.375 GM VIAL ONE (05:32)
[2021-02-07] MEDS: Piperacillin/Tazobactam 3.375 GM in 0.9 % Sodium Chloride Mini Bag 100 ML IVPB SCH (05:35)
[2021-02-07] MEDS: Insulin LISPRO 300 UNITS/3 ML VIAL SUBQ SCH ×2 (07:44→12:24)
[2021-02-07] MEDS: Lactobacillus 1 EACH CAP.SPRINK PO SCH (07:48)
[2021-02-07] MEDS: Budesonide/Formoterol 160/4.5 1 PUFF INH IH SCH (08:05)
[2021-02-07 08:08] VITALS: O2SAT 92
[2021-02-07] MEDS ORDERED: Hydrocortisone 10 MG TABLET PO SCH (09:00)
[2021-02-07] MEDS ORDERED: *HR* Amiodarone 200 MG TABLET PO SCH (09:00)
[2021-02-07] MEDS ORDERED: aMILoride 5 MG TABLET PO SCH (09:15)
[2021-02-07] MEDS: Ondansetron 4 MG/2 ML VIAL IVP PRN (09:54)
[2021-02-07 12:01] VITALS: BP 136/83; PULSE 62; TEMP 98.6
[2021-02-07] MEDS: Hydrocortisone 10 MG TABLET PO SCH (12:26)
[2021-02-07 14:48] LABS: Calcium 8.8 mg/dL (8.6-10.3); Potassium 3.4 mEq/L (3.5-5.1)
[2021-02-07] MEDS: *HR* Rivaroxaban 15 MG TABLET PO SCH (15:55)
== END 2021-02-07 17:15 | disposition home health service (06) | DRG 643 ==
LOC: EMEROOARM 19:02 → ICNU 02-04 00:46 → 2NNU 02-06 01:12
PROVIDERS: ADMIT Family Medicine; ATTEND Family Medicine

== ENCOUNTER 2021-02-10 10:14 | Inpatient (IN) ==
[2021-02-10] MEDS ORDERED: 0.9 % Sodium Chloride 500 ML IVC ONE (10:21)
[2021-02-10] MEDS ORDERED: 0.9 % Sodium Chloride 1,000 ML IVC ONE (10:22)
[2021-02-10] MEDS ORDERED: methylPREDNISolone 125 MG/2 ML VIAL IVP ONE (10:24)
[2021-02-10 10:49] LABS: Basophils # 0.1 K/mcL (0.0-0.2); Basophils % 0.8 %; Eosinophils # 0.5 K/mcL (0.0-0.6); Eosinophils % 4.5 %; Hematocrit 41.6 % (37.5-50.1); Immature Granulocytes % 1.3 % (0-4); Lymphocytes # 1.3 K/mcL (0.6-4.6); Lymphocytes % 13.2 %; Mean Corpuscular HGB Conc 31.3 g/dL (31.6-35.5); Mean Corpuscular Hemoglobin 29.1 pg (28.0-33.3); Mean Corpuscular Volume 93.3 fL (83.0-100.0); Mean Platelet Volume 9.6 fL (9.4-12.4); Monocytes % 10.2 %; Platelet Count 323 K/mcL (140-400); Red Blood Count 4.46 M/mcL (4.19-5.50); Red Cell Distribution Width 15.6 % (11.5-14.5)
[2021-02-10 10:55] LABS: INR 1.5; Prothrombin Time 16.7 Seconds (9.4-12.1)
[2021-02-10 10:58] LABS: Activated Partial Thrombo Time 32.5 Seconds (26.0-36.0)
[2021-02-10] MEDS: Norepinephrine 4 MG/254 ML IV.SOLN IVC SCH (11:10)
[2021-02-10 11:24] LABS: Bilirubin,Urine Small (Negative); Blood,Urine Small (Negative); Clarity,Urine Hazy (Clear); Color,Urine Yellow (Yellow); Glucose,Urine (UA) 100 mg/dL (Normal); Ketones,Urine Trace mg/dL (Negative); Leukocyte Esterase,Urine Trace (Negative); Nitrite,Urine Negative (Negative); PH,Urine 5.5 pH Units (5.0-8.0); Protein,Urine 30 mg/dL (Neg-Trace); Specific Gravity,Urine 1.025 (1.010-1.025); Urobilinogen,Urine Normal (Normal)
[2021-02-10 11:56] LABS: Squamous Epithelial Cell,Urine Many per hpf (None-Few)
[2021-02-10 11:57] LABS: Bacteria,Urine Many per hpf (None-Few)
[2021-02-10] MEDS: 0.9 % Sodium Chloride 1,000 ML IVC SCH ×2 (13:05→20:29)
[2021-02-10] MEDS ORDERED: Naloxone 0.4 MG/ML INJ IVP PRN (13:11)
[2021-02-10] MEDS ORDERED: Acetaminophen 325 MG TABLET PO PRN (13:11)
[2021-02-10 13:15] LABS: Albumin 3.5 g/dL (3.5-5.7); Albumin/Globulin Ratio 1.1 (1.1-2.2); Bilirubin,Direct 0.1 mg/dL (0.0-0.2); Bilirubin,Indirect 0.4 mg/dL (0.0-1.0); Bilirubin,Total 0.5 mg/dL (0.3-1.0); Calcium 8.4 mg/dL (8.6-10.3); Globulin 3.1 g/dL (2.4-3.5); Magnesium 2.2 mg/dL (1.6-2.6); Phosphorous 4.2 mg/dL (2.7-4.5); Potassium 3.8 mEq/L (3.5-5.1); Total Protein 6.6 g/dL (6.4-8.9)
[2021-02-10] MEDS ORDERED: Fluticasone Propionate Nasal 50 MCG/SPRAY BOTTLE NS PRN (13:16)
[2021-02-10] MEDS ORDERED: *HR* Rivaroxaban 15 MG TABLET PO SCH (17:00)
[2021-02-10] MEDS: Hydrocortisone Sodium Succ 100 MG/2 ML VIAL IVP SCH (17:56)
[2021-02-10] MEDS: cefTRIAXone 1,000 MG in Water for inj. (sterile) 10 ML IVP SCH (18:00)
[2021-02-10] MEDS ORDERED: D5% in Water 1,000 ML IVC PRN (19:58)
[2021-02-10] MEDS ORDERED: Dextrose Gel 15 GM/37.5 ML TUBE PO PRN ×2 (19:58)
[2021-02-10] MEDS ORDERED: *HR* Dextrose 50 % in Water (Vial) 50 ML VIAL IVP PRN (19:58)
[2021-02-10] MEDS: Lactobacillus 1 EACH CAP.SPRINK PO SCH (20:25)
[2021-02-10] MEDS ORDERED: traZODone 50 MG TABLET PO SCH (21:00)
[2021-02-10] MEDS ORDERED: Insulin LISPRO 300 UNITS/3 ML VIAL SUBQ SCH (21:00)
[2021-02-10] MEDS: Budesonide/Formoterol 160/4.5 1 PUFF INH IH SCH (21:30)
[2021-02-11] MEDS: Hydrocortisone Sodium Succ 100 MG/2 ML VIAL IVP SCH ×3 (00:08→16:51)
[2021-02-11] MEDS: 0.9 % Sodium Chloride 1,000 ML IVC SCH (06:02)
[2021-02-11 06:20] LABS: Basophils % 0.1 %; Hemoglobin 12.5 g/dL (12.9-16.9); Immature Granulocytes % 0.6 % (0-4); Lymphocytes # 0.5 K/mcL (0.6-4.6); Lymphocytes % 2.8 %; Mean Corpuscular HGB Conc 32.9 g/dL (31.6-35.5); Mean Corpuscular Volume 91.3 fL (83.0-100.0); Mean Platelet Volume 9.3 fL (9.4-12.4); Monocytes # 0.6 K/mcL (0.0-1.3); Monocytes % 3.4 %; Neutrophils # 15.7 K/mcL (1.6-8.9); Platelet Count 319 K/mcL (140-400); Red Blood Count 4.16 M/mcL (4.19-5.50); Segmented Neutrophils % 93.1 %; White Blood Count 16.9 K/mcL (4.3-11.1)
[2021-02-11 06:41] LABS: Calcium 8.3 mg/dL (8.6-10.3); Potassium 4.3 mEq/L (3.5-5.1)
[2021-02-11] MEDS ORDERED: Insulin LISPRO 300 UNITS/3 ML VIAL SUBQ SCH (07:30)
[2021-02-11] MEDS: Lactobacillus 1 EACH CAP.SPRINK PO SCH ×2 (07:58→20:27)
[2021-02-11] MEDS: cefTRIAXone 1,000 MG in Water for inj. (sterile) 10 ML IVP SCH (07:59)
[2021-02-11] MEDS: Budesonide/Formoterol 160/4.5 1 PUFF INH IH SCH ×2 (08:12→22:08)
[2021-02-11] MEDS ORDERED: *HR* Amiodarone 200 MG TABLET PO SCH (09:00)
[2021-02-11] MEDS ORDERED: Psyllium 1 PACKET POWD.PACK PO SCH (09:00)
[2021-02-11] MEDS ORDERED: Ringers Solution, Lactated 1,000 ML IVC SCH (09:15)
[2021-02-11] MEDS ORDERED: *HR* OxyCODONE Immed Rel 5 MG TABLET PO PRN ×2 (09:28→10:54)
[2021-02-11] MEDS ORDERED: Acetaminophen 325 MG TABLET PO PRN (10:54)
[2021-02-11] MEDS ORDERED: *HR* Dextrose 50 % in Water (Vial) 50 ML VIAL IVP PRN (10:54)
[2021-02-11] MEDS ORDERED: D5% in Water 1,000 ML IVC PRN (10:54)
[2021-02-11] MEDS ORDERED: Naloxone 0.4 MG/ML INJ IVP PRN (10:54)
[2021-02-11] MEDS ORDERED: Fluticasone Propionate Nasal 50 MCG/SPRAY BOTTLE NS PRN (10:54)
[2021-02-11] MEDS ORDERED: Dextrose Gel 15 GM/37.5 ML TUBE PO PRN ×2 (10:54)
[2021-02-11] MEDS: Ringers Solution, Lactated 1,000 ML IVC SCH (11:59)
[2021-02-11] MEDS: Insulin LISPRO 300 UNITS/3 ML VIAL SUBQ SCH ×3 (12:01→20:27)
[2021-02-11] MEDS: *HR* Rivaroxaban 15 MG TABLET PO SCH (16:52)
[2021-02-11] MEDS: traZODone 50 MG TABLET PO SCH (20:27)
[2021-02-12] MEDS: Norepinephrine 4 MG/254 ML IV.SOLN IVC SCH (00:37)
[2021-02-12] MEDS: Ringers Solution, Lactated 1,000 ML IVC SCH ×2 (00:57→17:42)
[2021-02-12] MEDS: Hydrocortisone Sodium Succ 100 MG/2 ML VIAL IVP SCH ×4 (00:58→17:44)
[2021-02-12] MEDS: Insulin LISPRO 300 UNITS/3 ML VIAL SUBQ SCH ×4 (07:38→21:27)
[2021-02-12] MEDS: Budesonide/Formoterol 160/4.5 1 PUFF INH IH SCH ×2 (07:55→20:03)
[2021-02-12] MEDS: *HR* Amiodarone 200 MG TABLET PO SCH (09:10)
[2021-02-12] MEDS: Lactobacillus 1 EACH CAP.SPRINK PO SCH ×2 (09:11→22:21)
[2021-02-12] MEDS: Psyllium 1 PACKET POWD.PACK PO SCH (09:12)
[2021-02-12] MEDS: cefTRIAXone 1,000 MG in Water for inj. (sterile) 10 ML IVP SCH (09:13)
[2021-02-12 10:00] LABS: Basophils % 0.3 %; Monocytes % 9.4 %; Red Cell Distribution Width 15.3 % (11.5-14.5)
[2021-02-12 10:02] LABS: Eosinophils % 0.1 %; Hemoglobin 12.5 g/dL (12.9-16.9); Immature Granulocytes % 1.1 % (0-4); Immature Platelets 4.7 % (1.1-6.1); Lymphocytes # 1.3 K/mcL (0.6-4.6); Lymphocytes % 11.4 %; Mean Corpuscular HGB Conc 32.1 g/dL (31.6-35.5); Mean Corpuscular Hemoglobin 29.3 pg (28.0-33.3); Mean Corpuscular Volume 91.3 fL (83.0-100.0); Mean Platelet Volume 10.5 fL (9.4-12.4); Monocytes # 1.1 K/mcL (0.0-1.3); Neutrophils # 8.9 K/mcL (1.6-8.9); Platelet Count 230 K/mcL (140-400); Red Blood Count 4.27 M/mcL (4.19-5.50); Segmented Neutrophils % 77.7 %; White Blood Count 11.5 K/mcL (4.3-11.1)
[2021-02-12 10:42] LABS: Platelet Estimate Normal (Normal)
[2021-02-12 11:22] LABS: Calcium 8.4 mg/dL (8.6-10.3); Potassium 4.9 mEq/L (3.5-5.1)
[2021-02-12] MEDS: *HR* Rivaroxaban 15 MG TABLET PO SCH (17:44)
[2021-02-12] MEDS: traZODone 50 MG TABLET PO SCH (22:21)
[2021-02-13] MEDS: Hydrocortisone Sodium Succ 100 MG/2 ML VIAL IVP SCH ×4 (00:12→23:36)
[2021-02-13] MEDS: Insulin LISPRO 300 UNITS/3 ML VIAL SUBQ SCH ×4 (07:27→22:04)
[2021-02-13] MEDS: Psyllium 1 PACKET POWD.PACK PO SCH (07:28)
[2021-02-13] MEDS: Budesonide/Formoterol 160/4.5 1 PUFF INH IH SCH ×2 (07:51→20:20)
[2021-02-13] MEDS: Ringers Solution, Lactated 1,000 ML IVC SCH ×2 (07:53→16:07)
[2021-02-13] MEDS: Lactobacillus 1 EACH CAP.SPRINK PO SCH ×2 (07:54→20:07)
[2021-02-13] MEDS: *HR* Amiodarone 200 MG TABLET PO SCH (07:54)
[2021-02-13] MEDS: cefTRIAXone 1,000 MG in Water for inj. (sterile) 10 ML IVP SCH (07:55)
[2021-02-13 11:59] LABS: Basophils % 0.3 %; Eosinophils % 0.1 %; Hematocrit 39.1 % (37.5-50.1); Hemoglobin 12.4 g/dL (12.9-16.9); Immature Granulocytes % 0.6 % (0-4); Lymphocytes # 0.7 K/mcL (0.6-4.6); Lymphocytes % 6.6 %; Mean Corpuscular HGB Conc 31.7 g/dL (31.6-35.5); Mean Corpuscular Hemoglobin 29.5 pg (28.0-33.3); Mean Corpuscular Volume 92.9 fL (83.0-100.0); Mean Platelet Volume 9.7 fL (9.4-12.4); Monocytes # 0.9 K/mcL (0.0-1.3); Monocytes % 8.9 %; Neutrophils # 8.5 K/mcL (1.6-8.9); Platelet Count 320 K/mcL (140-400); Red Blood Count 4.21 M/mcL (4.19-5.50); Red Cell Distribution Width 15.3 % (11.5-14.5); Segmented Neutrophils % 83.5 %; White Blood Count 10.2 K/mcL (4.3-11.1)
[2021-02-13 12:34] LABS: Calcium 8.8 mg/dL (8.6-10.3)
[2021-02-13] MEDS: *HR* Rivaroxaban 15 MG TABLET PO SCH (17:06)
[2021-02-13] MEDS: traZODone 50 MG TABLET PO SCH (20:06)
[2021-02-14 01:49] LABS: Basophils % 0.4 %; Eosinophils % 0.2 %; Hematocrit 36.9 % (37.5-50.1); Hemoglobin 11.6 g/dL (12.9-16.9); Immature Granulocytes % 0.7 % (0-4); Lymphocytes # 1.1 K/mcL (0.6-4.6); Lymphocytes % 10.5 %; Mean Corpuscular HGB Conc 31.4 g/dL (31.6-35.5); Mean Corpuscular Hemoglobin 29.4 pg (28.0-33.3); Mean Corpuscular Volume 93.7 fL (83.0-100.0); Mean Platelet Volume 9.3 fL (9.4-12.4); Monocytes # 1.4 K/mcL (0.0-1.3); Monocytes % 13.7 %; Neutrophils # 7.8 K/mcL (1.6-8.9); Platelet Count 293 K/mcL (140-400); Red Blood Count 3.94 M/mcL (4.19-5.50); Red Cell Distribution Width 15.2 % (11.5-14.5); Segmented Neutrophils % 74.5 %; White Blood Count 10.5 K/mcL (4.3-11.1)
[2021-02-14 02:11] LABS: BUN/Creatinine Ratio 23 (6-26); Blood Urea Nitrogen 30 mg/dL (8-23); Calcium 8.8 mg/dL (8.6-10.3); Carbon Dioxide 24 mEq/L (23-29); Chloride 109 mEq/L (98-107); Glucose 142 mg/dL (70-105); Magnesium 1.7 mg/dL (1.6-2.6); Osmolality,Calculated 299 (280-300); Phosphorous 2.3 mg/dL (2.7-4.5); Potassium 4.1 mEq/L (3.5-5.1); Sodium 140 mEq/L (136-145); eGFR For African Americans > 60 (> 60); eGFR For Non-African Americans 55 (> 60)
[2021-02-14] MEDS: Budesonide/Formoterol 160/4.5 1 PUFF INH IH SCH (07:30)
[2021-02-14 08:02] VITALS: BP 125/77; PULSE 66; TEMP 97.8; O2SAT 99
[2021-02-14] MEDS: Insulin LISPRO 300 UNITS/3 ML VIAL SUBQ SCH (08:15)
[2021-02-14] MEDS: Psyllium 1 PACKET POWD.PACK PO SCH (08:15)
[2021-02-14] MEDS: *HR* Amiodarone 200 MG TABLET PO SCH (09:29)
[2021-02-14] MEDS: Lactobacillus 1 EACH CAP.SPRINK PO SCH (09:29)
[2021-02-14] MEDS: cefTRIAXone 1,000 MG in Water for inj. (sterile) 10 ML IVP SCH (09:30)
[2021-02-14] MEDS: Hydrocortisone Sodium Succ 100 MG/2 ML VIAL IVP SCH (09:31)
== END 2021-02-14 11:00 | disposition home or self-care (01) | DRG 644 ==
LOC: EMEROOARM 10:14 → ICNU 16:34 → 2ANU 02-11 23:50
PROVIDERS: ADMIT Family Medicine; ATTEND Family Medicine

== ENCOUNTER 2021-02-22 11:12 | Inpatient (IN) ==
[2021-02-22] MEDS ORDERED: Hydrocortisone Sodium Succ 100 MG/2 ML VIAL IVP ONE (11:31)
[2021-02-22] MEDS ORDERED: D5% in 0.9% NACL 1,000 ML IVC STA (11:32)
[2021-02-22] MEDS ORDERED: Potassium Chloride 40 MEQ in D5% in 0.9% NACL 1,000 ML IVC STA (11:37)
[2021-02-22 11:53] LABS: Basophils # 0.1 K/mcL (0.0-0.2); Basophils % 0.7 %; Eosinophils # 0.3 K/mcL (0.0-0.6); Eosinophils % 4.5 %; Hematocrit 35.5 % (37.5-50.1); Immature Granulocytes % 0.8 % (0-4); Lymphocytes # 1.3 K/mcL (0.6-4.6); Lymphocytes % 17.9 %; Mean Corpuscular Hemoglobin 29.6 pg (28.0-33.3); Mean Corpuscular Volume 95.4 fL (83.0-100.0); Mean Platelet Volume 9.6 fL (9.4-12.4); Monocytes # 0.7 K/mcL (0.0-1.3); Monocytes % 10.2 %; Neutrophils # 4.7 K/mcL (1.6-8.9); Platelet Count 266 K/mcL (140-400); Red Blood Count 3.72 M/mcL (4.19-5.50); Red Cell Distribution Width 15.5 % (11.5-14.5); Segmented Neutrophils % 65.9 %; White Blood Count 7.2 K/mcL (4.3-11.1)
[2021-02-22 12:15] LABS: Alanine Aminotransferase 32 Units/L (7-52); Albumin 3.2 g/dL (3.5-5.7); Albumin/Globulin Ratio 1.5 (1.1-2.2); Alkaline Phosphatase 79 Units/L (34-104); Aspartate Amino Transferase 16 Units/L (13-39); BUN/Creatinine Ratio 20 (6-26); Bilirubin,Indirect 0.3 mg/dL (0.0-1.0); Bilirubin,Total 0.3 mg/dL (0.3-1.0); Blood Urea Nitrogen 50 mg/dL (8-23); Calcium 8.4 mg/dL (8.6-10.3); Carbon Dioxide 32 mEq/L (23-29); Chloride 105 mEq/L (98-107); Globulin 2.2 g/dL (2.4-3.5); Glucose 125 mg/dL (70-105); Osmolality,Calculated 311 (280-300); Sodium 143 mEq/L (136-145); Total Protein 5.4 g/dL (6.4-8.9); eGFR For African Americans 32 (> 60); eGFR For Non-African Americans 26 (> 60)
[2021-02-22 12:20] LABS: Prothrombin Time 23.1 Seconds (9.4-12.1)
[2021-02-22 12:22] LABS: Activated Partial Thrombo Time 41.5 Seconds (26.0-36.0)
[2021-02-22 12:56] LABS: Troponin I < 0.03 ng/mL (< 0.04)
[2021-02-22] MEDS ORDERED: Ringers Solution, Lactated 1,000 ML IVC ONE (13:24)
[2021-02-22] MEDS ORDERED: Ondansetron ODT 4 MG TAB.RAPDIS SL PRN (15:40)
[2021-02-22] MEDS ORDERED: Naloxone 0.4 MG/ML INJ IVP PRN (15:40)
[2021-02-22] MEDS ORDERED: Acetaminophen 325 MG TABLET PO PRN (15:40)
[2021-02-22] MEDS ORDERED: Melatonin 3 MG TABLET PO PRN (15:40)
[2021-02-22] MEDS ORDERED: 0.9 % Sodium Chloride 250 ML IVC PRN (16:24)
[2021-02-22] MEDS ORDERED: TIZANIDINE HCL 2 MG PO PRN (16:25)
[2021-02-22] MEDS ORDERED: Fluticasone Propionate Nasal 50 MCG/SPRAY BOTTLE NS PRN (16:25)
[2021-02-22] MEDS ORDERED: D5% in Water 1,000 ML IVC PRN (16:43)
[2021-02-22] MEDS ORDERED: *HR* Dextrose 50 % in Water (Vial) 50 ML VIAL IVP PRN (16:43)
[2021-02-22] MEDS ORDERED: Dextrose Gel 15 GM/37.5 ML TUBE PO PRN ×2 (16:43)
[2021-02-22] MEDS: Insulin LISPRO 300 UNITS/3 ML VIAL SUBQ SCH (17:31)
[2021-02-22] MEDS: Hydrocortisone Sodium Succ 100 MG/2 ML VIAL IVP SCH ×2 (17:35→23:49)
[2021-02-22] MEDS: *HR* Rivaroxaban 15 MG TABLET PO SCH (17:35)
[2021-02-22] MEDS: traZODone 50 MG TABLET PO SCH (19:35)
[2021-02-22] MEDS: Budesonide/Formoterol 160/4.5 1 PUFF INH IH SCH (20:38)
[2021-02-23] MEDS: Hydrocortisone Sodium Succ 100 MG/2 ML VIAL IVP SCH ×3 (05:35→17:27)
[2021-02-23 06:02] LABS: Basophils % 0.2 %; Eosinophils % 0.2 %; Hematocrit 40.5 % (37.5-50.1); Immature Granulocytes % 0.5 % (0-4); Lymphocytes # 0.6 K/mcL (0.6-4.6); Lymphocytes % 5.1 %; Mean Corpuscular HGB Conc 31.4 g/dL (31.6-35.5); Mean Corpuscular Hemoglobin 29.5 pg (28.0-33.3); Monocytes # 0.7 K/mcL (0.0-1.3); Monocytes % 5.8 %; Neutrophils # 10.9 K/mcL (1.6-8.9); Platelet Count 282 K/mcL (140-400); Red Blood Count 4.31 M/mcL (4.19-5.50); Red Cell Distribution Width 14.7 % (11.5-14.5); Segmented Neutrophils % 88.2 %
[2021-02-23 06:05] LABS: Hemoglobin 12.7 g/dL (12.9-16.9); White Blood Count 12.4 K/mcL (4.3-11.1)
[2021-02-23 06:14] LABS: INR 2.5
[2021-02-23 06:22] LABS: Albumin 3.6 g/dL (3.5-5.7); Albumin/Globulin Ratio 1.5 (1.1-2.2); Bilirubin,Total 0.4 mg/dL (0.3-1.0); Calcium 8.8 mg/dL (8.6-10.3); Globulin 2.4 g/dL (2.4-3.5); Magnesium 1.7 mg/dL (1.6-2.6); Potassium 4.6 mEq/L (3.5-5.1)
[2021-02-23] MEDS: Insulin LISPRO 300 UNITS/3 ML VIAL SUBQ SCH ×3 (07:32→17:43)
[2021-02-23] MEDS: *HR* Amiodarone 200 MG TABLET PO SCH (07:33)
[2021-02-23] MEDS ORDERED: Furosemide 20 MG/2 ML VIAL IVP ONE ×2 (10:22→17:00)
[2021-02-23] MEDS: Budesonide/Formoterol 160/4.5 1 PUFF INH IH SCH ×2 (10:57→22:17)
[2021-02-23] MEDS: Albumin 25% 25gram/100mL 25 GM/100 ML IV.SOLN IVC SCH ×4 (11:49→16:51)
[2021-02-23] MEDS: *HR* Rivaroxaban 15 MG TABLET PO SCH (17:26)
[2021-02-23] MEDS: traZODone 50 MG TABLET PO SCH (19:43)
[2021-02-24] MEDS: Hydrocortisone Sodium Succ 100 MG/2 ML VIAL IVP SCH ×3 (00:09→12:04)
[2021-02-24] MEDS: *HR* OxyCODONE Immed Rel 5 MG TABLET PO PRN (00:57)
[2021-02-24] MEDS: Gabapentin 300 MG CAPSULE PO SCH ×4 (01:16→19:50)
[2021-02-24 01:45] LABS: Hematocrit 32.8 % (37.5-50.1); Mean Corpuscular HGB Conc 32.6 g/dL (31.6-35.5); Mean Corpuscular Hemoglobin 30.1 pg (28.0-33.3); Mean Corpuscular Volume 92.4 fL (83.0-100.0); Platelet Count 250 K/mcL (140-400); Red Blood Count 3.55 M/mcL (4.19-5.50); Red Cell Distribution Width 14.7 % (11.5-14.5); White Blood Count 9.9 K/mcL (4.3-11.1)
[2021-02-24 01:46] LABS: Hemoglobin 10.7 g/dL (12.9-16.9)
[2021-02-24 02:22] LABS: Calcium 9.1 mg/dL (8.6-10.3); Potassium 3.4 mEq/L (3.5-5.1)
[2021-02-24] MEDS ORDERED: Furosemide 40 MG/4 ML VIAL IVP ONE (07:35)
[2021-02-24] MEDS: Insulin LISPRO 300 UNITS/3 ML VIAL SUBQ SCH ×3 (08:06→16:59)
[2021-02-24] MEDS: *HR* Amiodarone 200 MG TABLET PO SCH (09:07)
[2021-02-24] MEDS: Budesonide/Formoterol 160/4.5 1 PUFF INH IH SCH ×2 (10:41→22:14)
[2021-02-24] MEDS ORDERED: Hydrocortisone 10 MG TABLET PO ONE (11:00)
[2021-02-24] MEDS: *HR* Rivaroxaban 15 MG TABLET PO SCH (16:59)
[2021-02-24] MEDS ORDERED: Hydrocortisone 10 MG TABLET PO SCH (18:00)
[2021-02-24] MEDS: traZODone 50 MG TABLET PO SCH (19:50)
[2021-02-24 23:15] LABS: Bilirubin,Urine Negative (Negative); Blood,Urine Negative (Negative); Clarity,Urine Clear (Clear); Color,Urine Light-Yellow (Yellow); Glucose,Urine (UA) 100 mg/dL (Normal); Ketones,Urine Negative (Negative); Leukocyte Esterase,Urine Negative (Negative); Nitrite,Urine Negative (Negative); Protein,Urine Negative (Neg-Trace); Specific Gravity,Urine 1.015 (1.010-1.025); Squamous Epithelial Cell,Urine Few per hpf (None-Few); Urobilinogen,Urine Normal (Normal); WBC,Urine 0-3 per hpf (0-3)
[2021-02-25 03:28] LABS: Hematocrit 36.2 % (37.5-50.1); Hemoglobin 11.4 g/dL (12.9-16.9); Mean Corpuscular HGB Conc 31.5 g/dL (31.6-35.5); Mean Corpuscular Hemoglobin 29.2 pg (28.0-33.3); Mean Corpuscular Volume 92.8 fL (83.0-100.0); Platelet Count 252 K/mcL (140-400); Red Cell Distribution Width 14.7 % (11.5-14.5); White Blood Count 11.8 K/mcL (4.3-11.1)
[2021-02-25 03:48] LABS: BUN/Creatinine Ratio 21 (6-26); Blood Urea Nitrogen 29 mg/dL (8-23); Calcium 9.2 mg/dL (8.6-10.3); Carbon Dioxide 32 mEq/L (23-29); Chloride 103 mEq/L (98-107); Glucose 120 mg/dL (70-105); Osmolality,Calculated 301 (280-300); Potassium 3.3 mEq/L (3.5-5.1); Sodium 142 mEq/L (136-145); eGFR For African Americans > 60 (> 60); eGFR For Non-African Americans 50 (> 60)
[2021-02-25] MEDS: Insulin LISPRO 300 UNITS/3 ML VIAL SUBQ SCH ×3 (07:30→16:33)
[2021-02-25] MEDS: *HR* Amiodarone 200 MG TABLET PO SCH (10:26)
[2021-02-25] MEDS: Hydrocortisone 10 MG TABLET PO SCH ×3 (10:26→16:34)
[2021-02-25] MEDS: Gabapentin 300 MG CAPSULE PO SCH ×3 (10:26→20:56)
[2021-02-25] MEDS: Budesonide/Formoterol 160/4.5 1 PUFF INH IH SCH ×2 (10:32→22:31)
[2021-02-25] MEDS: *HR* Rivaroxaban 15 MG TABLET PO SCH (16:34)
[2021-02-25] MEDS: traZODone 50 MG TABLET PO SCH (20:55)
[2021-02-25] MEDS: *HR* OxyCODONE Immed Rel 5 MG TABLET PO PRN (21:04)
[2021-02-26 03:45] LABS: Basophils # 0.1 K/mcL (0.0-0.2); Basophils % 0.6 %; Eosinophils # 0.4 K/mcL (0.0-0.6); Eosinophils % 3.7 %; Hematocrit 37.1 % (37.5-50.1); Immature Granulocytes % 0.8 % (0-4); Lymphocytes # 1.2 K/mcL (0.6-4.6); Lymphocytes % 10.3 %; Mean Corpuscular HGB Conc 32.3 g/dL (31.6-35.5); Mean Corpuscular Hemoglobin 30.1 pg (28.0-33.3); Monocytes # 1.1 K/mcL (0.0-1.3); Monocytes % 9.7 %; Neutrophils # 8.8 K/mcL (1.6-8.9); Platelet Count 274 K/mcL (140-400); Red Blood Count 3.99 M/mcL (4.19-5.50); Red Cell Distribution Width 14.6 % (11.5-14.5); Segmented Neutrophils % 74.9 %; White Blood Count 11.8 K/mcL (4.3-11.1)
[2021-02-26 04:05] LABS: BUN/Creatinine Ratio 18 (6-26); Blood Urea Nitrogen 20 mg/dL (8-23); Carbon Dioxide 32 mEq/L (23-29); Chloride 101 mEq/L (98-107); Glucose 139 mg/dL (70-105); Magnesium 1.7 mg/dL (1.6-2.6); Osmolality,Calculated 293 (280-300); Potassium 3.2 mEq/L (3.5-5.1); Sodium 139 mEq/L (136-145); eGFR For African Americans > 60 (> 60); eGFR For Non-African Americans > 60 (> 60)
[2021-02-26 07:19] VITALS: BP 111/69; PULSE 65; TEMP 97.6
[2021-02-26] MEDS: Insulin LISPRO 300 UNITS/3 ML VIAL SUBQ SCH (07:32)
[2021-02-26] MEDS: *HR* Amiodarone 200 MG TABLET PO SCH (08:14)
[2021-02-26] MEDS: Hydrocortisone 10 MG TABLET PO SCH (08:14)
[2021-02-26] MEDS: Gabapentin 300 MG CAPSULE PO SCH (08:14)
[2021-02-26] MEDS ORDERED: Furosemide 40 MG/4 ML VIAL IVP ONE (09:05)
[2021-02-26] MEDS: Budesonide/Formoterol 160/4.5 1 PUFF INH IH SCH (10:28)
[2021-02-26 17:24] VITALS: O2SAT 97
== END 2021-02-26 11:04 | disposition home or self-care (01) | DRG 643 ==
LOC: EMEROOARM 11:12 → SUATTDRO 14:14 → ICNU 14:14 → 2ANU 02-23 11:28
PROVIDERS: ADMIT Internal Medicine; ATTEND Student in an Organized Health Care Education/Training Program

== ENCOUNTER 2021-03-30 18:23 | Inpatient (IN) ==
[2021-03-30] MEDS ORDERED: Hydrocortisone Sodium Succ 100 MG/2 ML VIAL IVP ONE (18:41)
[2021-03-30] MEDS ORDERED: D5% in Lactated Ringers 1,000 ML IVC ONE ×2 (18:42→19:39)
[2021-03-30 19:37] LABS: Basophils % 0.4 %; Eosinophils # 0.2 K/mcL (0.0-0.6); Eosinophils % 1.9 %; Hematocrit 40.5 % (37.5-50.1); Immature Granulocytes % 0.5 % (0-4); Lymphocytes # 0.8 K/mcL (0.6-4.6); Lymphocytes % 8.8 %; Mean Corpuscular HGB Conc 32.1 g/dL (31.6-35.5); Mean Corpuscular Hemoglobin 29.5 pg (28.0-33.3); Mean Corpuscular Volume 91.8 fL (83.0-100.0); Monocytes # 0.9 K/mcL (0.0-1.3); Monocytes % 9.9 %; Neutrophils # 7.5 K/mcL (1.6-8.9); Platelet Count 288 K/mcL (140-400); Red Blood Count 4.41 M/mcL (4.19-5.50); Red Cell Distribution Width 15.3 % (11.5-14.5); Segmented Neutrophils % 78.5 %; White Blood Count 9.5 K/mcL (4.3-11.1)
[2021-03-30 20:10] LABS: Alanine Aminotransferase 19 Units/L (7-52); Albumin 3.7 g/dL (3.5-5.7); Albumin/Globulin Ratio 1.2 (1.1-2.2); Alkaline Phosphatase 87 Units/L (34-104); Aspartate Amino Transferase 16 Units/L (13-39); BUN/Creatinine Ratio 11 (6-26); Bilirubin,Direct 0.1 mg/dL (0.0-0.2); Bilirubin,Indirect 0.4 mg/dL (0.0-1.0); Bilirubin,Total 0.5 mg/dL (0.3-1.0); Blood Urea Nitrogen 42 mg/dL (8-23); Calcium 8.5 mg/dL (8.6-10.3); Carbon Dioxide 32 mEq/L (23-29); Chloride 90 mEq/L (98-107); Glucose 147 mg/dL (70-105); Osmolality,Calculated 293 (280-300); Potassium 2.8 mEq/L (3.5-5.1); Sodium 135 mEq/L (136-145); Thyroid Stimulating Hormone 1.967 mcIU/mL (0.340-5.600); Total Protein 6.7 g/dL (6.4-8.9); Troponin I < 0.03 ng/mL (< 0.04); eGFR For African Americans 18 (> 60); eGFR For Non-African Americans 15 (> 60)
[2021-03-30] MEDS ORDERED: Potassium Chloride Elixir 20 MEQ/15 ML UDC PO ONE (22:00)
[2021-03-31 00:04] LABS: Influenza A PCR Negative (Negative); Influenza B PCR Negative (Negative); Resp. Syncytial Virus PCR Negative (Negative)
[2021-03-31 00:06] LABS: SARS-CoV-2 by PCR (In House) Negative (Negative)
[2021-03-31] MEDS ORDERED: Naloxone 0.4 MG/ML INJ IVP PRN (00:10)
[2021-03-31 00:48] LABS: Bilirubin,Urine Negative (Negative); Blood,Urine Negative (Negative); Clarity,Urine Clear (Clear); Color,Urine Light-Yellow (Yellow); Glucose,Urine (UA) 300 mg/dL (Normal); Ketones,Urine Negative (Negative); Leukocyte Esterase,Urine Negative (Negative); Mucus,Urine Few per lpf (None-Few); Nitrite,Urine Negative (Negative); Protein,Urine Trace mg/dL (Neg-Trace); Specific Gravity,Urine 1.008 (1.010-1.025); Squamous Epithelial Cell,Urine Few per hpf (None-Few); Urobilinogen,Urine Normal (Normal)
[2021-03-31] MEDS ORDERED: Dextrose Gel 15 GM/37.5 ML TUBE PO PRN ×2 (01:43)
[2021-03-31] MEDS ORDERED: D5% in Water 1,000 ML IVC PRN (01:43)
[2021-03-31] MEDS ORDERED: *HR* Dextrose 50 % in Water (Syg) 50 ML SYRINGE IVP PRN (01:43)
[2021-03-31 02:51] LABS: Calcium 8.5 mg/dL (8.6-10.3)
[2021-03-31] MEDS: D5% in Lactated Ringers 1,000 ML IVC SCH ×3 (02:51→12:18)
[2021-03-31] MEDS: Hydrocortisone Sodium Succ 100 MG/2 ML VIAL IVP SCH ×4 (02:52→17:31)
[2021-03-31] MEDS: Insulin LISPRO 300 UNITS/3 ML VIAL SUBQ SCH ×3 (08:15→17:25)
[2021-03-31] MEDS: *HR* Amiodarone 200 MG TABLET PO SCH (08:15)
[2021-03-31] MEDS ORDERED: Potassium Chloride 40 MEQ, Lidocaine 1% 2 ML in 0.9 % Sodium Chloride 500 ML IVPB ONE (08:35)
[2021-03-31] MEDS ORDERED: Ringers Solution, Lactated 1,000 ML IVC SCH (12:00)
[2021-03-31] MEDS: *HR* Rivaroxaban 15 MG TABLET PO SCH (17:21)
[2021-03-31] MEDS: Melatonin 3 MG TABLET PO SCH (21:21)
[2021-03-31] MEDS: traZODone 50 MG TABLET PO SCH (21:21)
[2021-03-31] MEDS: *HR* OxyCODONE Immed Rel 5 MG TABLET PO PRN (21:21)
[2021-04-01] MEDS: Hydrocortisone Sodium Succ 100 MG/2 ML VIAL IVP SCH ×3 (02:40→12:20)
[2021-04-01] MEDS: D5% in Lactated Ringers 1,000 ML IVC SCH (03:14)
[2021-04-01] MEDS: *HR* OxyCODONE Immed Rel 5 MG TABLET PO PRN ×2 (03:14→20:50)
[2021-04-01 03:36] LABS: Basophils # 0.1 K/mcL (0.0-0.2); Basophils % 0.6 %; Eosinophils % 0.2 %; Hematocrit 39.6 % (37.5-50.1); Hemoglobin 12.8 g/dL (12.9-16.9); Immature Granulocytes % 0.7 % (0-4); Lymphocytes # 1.3 K/mcL (0.6-4.6); Lymphocytes % 10.5 %; Mean Corpuscular HGB Conc 32.3 g/dL (31.6-35.5); Mean Corpuscular Hemoglobin 29.6 pg (28.0-33.3); Mean Corpuscular Volume 91.5 fL (83.0-100.0); Monocytes # 1.5 K/mcL (0.0-1.3); Monocytes % 12.7 %; Neutrophils # 9.1 K/mcL (1.6-8.9); Platelet Count 310 K/mcL (140-400); Red Blood Count 4.33 M/mcL (4.19-5.50); Red Cell Distribution Width 15.3 % (11.5-14.5); Segmented Neutrophils % 75.3 %; White Blood Count 12.1 K/mcL (4.3-11.1)
[2021-04-01 03:53] LABS: Calcium 8.6 mg/dL (8.6-10.3); Potassium 3.5 mEq/L (3.5-5.1)
[2021-04-01] MEDS: Insulin LISPRO 300 UNITS/3 ML VIAL SUBQ SCH ×3 (08:22→16:38)
[2021-04-01] MEDS: *HR* Amiodarone 200 MG TABLET PO SCH (08:22)
[2021-04-01] MEDS ORDERED: Furosemide 40 MG/4 ML VIAL IVP ONE (12:43)
[2021-04-01] MEDS: *HR* Rivaroxaban 15 MG TABLET PO SCH (17:26)
[2021-04-01] MEDS: Melatonin 3 MG TABLET PO SCH (20:51)
[2021-04-01] MEDS: traZODone 50 MG TABLET PO SCH (20:51)
[2021-04-01] MEDS ORDERED: Hydrocortisone Sodium Succ 100 MG/2 ML VIAL IVP SCH (21:00)
[2021-04-02] MEDS: *HR* OxyCODONE Immed Rel 5 MG TABLET PO PRN ×3 (02:50→21:16)
[2021-04-02 06:30] LABS: Basophils # 0.1 K/mcL (0.0-0.2); Basophils % 0.7 %; Eosinophils % 0.4 %; Hematocrit 39.3 % (37.5-50.1); Hemoglobin 12.3 g/dL (12.9-16.9); Immature Granulocytes % 1.2 % (0-4); Lymphocytes # 0.6 K/mcL (0.6-4.6); Lymphocytes % 6.8 %; Mean Corpuscular HGB Conc 31.3 g/dL (31.6-35.5); Mean Corpuscular Hemoglobin 28.7 pg (28.0-33.3); Mean Corpuscular Volume 91.8 fL (83.0-100.0); Mean Platelet Volume 9.7 fL (9.4-12.4); Monocytes # 1.3 K/mcL (0.0-1.3); Monocytes % 16.6 %; Platelet Count 244 K/mcL (140-400); Red Blood Count 4.28 M/mcL (4.19-5.50); Red Cell Distribution Width 15.4 % (11.5-14.5); Segmented Neutrophils % 74.3 %; White Blood Count 8.1 K/mcL (4.3-11.1)
[2021-04-02 06:47] LABS: BUN/Creatinine Ratio 21 (6-26); Blood Urea Nitrogen 28 mg/dL (8-23); Calcium 8.6 mg/dL (8.6-10.3); Carbon Dioxide 30 mEq/L (23-29); Chloride 100 mEq/L (98-107); Glucose 150 mg/dL (70-105); Osmolality,Calculated 292 (280-300); Potassium 3.4 mEq/L (3.5-5.1); Sodium 137 mEq/L (136-145); eGFR For African Americans > 60 (> 60); eGFR For Non-African Americans 53 (> 60)
[2021-04-02] MEDS ORDERED: Furosemide 40 MG/4 ML VIAL IVP ONE (08:12)
[2021-04-02] MEDS: Insulin LISPRO 300 UNITS/3 ML VIAL SUBQ SCH ×3 (09:20→17:55)
[2021-04-02] MEDS: *HR* Amiodarone 200 MG TABLET PO SCH (09:21)
[2021-04-02] MEDS: Hydrocortisone 10 MG TABLET PO SCH ×4 (09:21→17:55)
[2021-04-02] MEDS ORDERED: Potassium Chloride Elixir 20 MEQ/15 ML UDC PO ONE (14:18)
[2021-04-02] MEDS ORDERED: Magnesium Sulfate 1 GM/102 ML PIGGYBACK IVPB ONE (14:18)
[2021-04-02] MEDS: *HR* Rivaroxaban 15 MG TABLET PO SCH (17:55)
[2021-04-02] MEDS: Melatonin 3 MG TABLET PO SCH (21:16)
[2021-04-02] MEDS: traZODone 50 MG TABLET PO SCH (21:17)
[2021-04-03] MEDS: Insulin LISPRO 300 UNITS/3 ML VIAL SUBQ SCH ×3 (07:30→16:28)
[2021-04-03] MEDS: *HR* Amiodarone 200 MG TABLET PO SCH (07:43)
[2021-04-03] MEDS: *HR* OxyCODONE Immed Rel 5 MG TABLET PO PRN ×2 (07:44→15:03)
[2021-04-03] MEDS: Hydrocortisone 10 MG TABLET PO SCH ×3 (07:44→17:13)
[2021-04-03 09:27] LABS: Basophils # 0.1 K/mcL (0.0-0.2); Basophils % 0.5 %; Eosinophils # 0.1 K/mcL (0.0-0.6); Eosinophils % 0.9 %; Hematocrit 44.9 % (37.5-50.1); Immature Granulocytes % 1.1 % (0-4); Lymphocytes # 1.1 K/mcL (0.6-4.6); Lymphocytes % 11.5 %; Mean Corpuscular HGB Conc 31.2 g/dL (31.6-35.5); Mean Corpuscular Hemoglobin 29.1 pg (28.0-33.3); Mean Corpuscular Volume 93.3 fL (83.0-100.0); Mean Platelet Volume 9.3 fL (9.4-12.4); Monocytes # 1.7 K/mcL (0.0-1.3); Monocytes % 17.5 %; Neutrophils # 6.5 K/mcL (1.6-8.9); Platelet Count 253 K/mcL (140-400); Red Blood Count 4.81 M/mcL (4.19-5.50); Red Cell Distribution Width 15.7 % (11.5-14.5); Segmented Neutrophils % 68.5 %; White Blood Count 9.5 K/mcL (4.3-11.1)
[2021-04-03 09:49] LABS: BUN/Creatinine Ratio 18 (6-26); Blood Urea Nitrogen 23 mg/dL (8-23); Calcium 9.2 mg/dL (8.6-10.3); Carbon Dioxide 30 mEq/L (23-29); Chloride 97 mEq/L (98-107); Glucose 89 mg/dL (70-105); Osmolality,Calculated 283 (280-300); Potassium 4.2 mEq/L (3.5-5.1); Sodium 135 mEq/L (136-145); eGFR For African Americans > 60 (> 60); eGFR For Non-African Americans 57 (> 60)
[2021-04-03] MEDS ORDERED: Furosemide 40 MG/4 ML VIAL IVP ONE (11:34)
[2021-04-03 12:38] LABS: Influenza A PCR Negative (Negative); Influenza B PCR Negative (Negative); Resp. Syncytial Virus PCR Negative (Negative)
[2021-04-03 12:44] LABS: SARS-CoV-2 by PCR (In House) Positive (Negative)
[2021-04-03] MEDS: *HR* Rivaroxaban 15 MG TABLET PO SCH (17:12)
[2021-04-03] MEDS: QUEtiapine Fumarate 25 MG TABLET PO PRN (17:13)
[2021-04-03] MEDS: Melatonin 3 MG TABLET PO SCH (21:20)
[2021-04-03] MEDS: traZODone 50 MG TABLET PO SCH (21:21)
[2021-04-04 07:40] LABS: Basophils # 0.1 K/mcL (0.0-0.2); Basophils % 0.7 %; Eosinophils # 0.2 K/mcL (0.0-0.6); Eosinophils % 2.2 %; Hematocrit 40.9 % (37.5-50.1); Hemoglobin 13.3 g/dL (12.9-16.9); Immature Granulocytes % 0.8 % (0-4); Lymphocytes # 0.5 K/mcL (0.6-4.6); Mean Corpuscular HGB Conc 32.5 g/dL (31.6-35.5); Mean Corpuscular Hemoglobin 29.6 pg (28.0-33.3); Mean Corpuscular Volume 91.1 fL (83.0-100.0); Mean Platelet Volume 9.7 fL (9.4-12.4); Monocytes # 1.3 K/mcL (0.0-1.3); Monocytes % 16.8 %; Neutrophils # 5.6 K/mcL (1.6-8.9); Platelet Count 220 K/mcL (140-400); Red Blood Count 4.49 M/mcL (4.19-5.50); Red Cell Distribution Width 15.3 % (11.5-14.5); Segmented Neutrophils % 72.5 %; White Blood Count 7.7 K/mcL (4.3-11.1)
[2021-04-04 07:43] LABS: BUN/Creatinine Ratio 20 (6-26); Blood Urea Nitrogen 23 mg/dL (8-23); Carbon Dioxide 28 mEq/L (23-29); Chloride 99 mEq/L (98-107); Glucose 102 mg/dL (70-105); Osmolality,Calculated 280 (280-300); Potassium 4.5 mEq/L (3.5-5.1); Sodium 133 mEq/L (136-145); eGFR For African Americans > 60 (> 60); eGFR For Non-African Americans > 60 (> 60)
[2021-04-04] MEDS: Insulin LISPRO 300 UNITS/3 ML VIAL SUBQ SCH ×3 (09:23→17:17)
[2021-04-04] MEDS ORDERED: Benzonatate 100 MG CAPSULE PO PRN (09:26)
[2021-04-04] MEDS ORDERED: Acetaminophen 325 MG TABLET PO PRN ×2 (09:29→10:19)
[2021-04-04] MEDS: Hydrocortisone 10 MG TABLET PO SCH ×3 (09:35→17:30)
[2021-04-04] MEDS: *HR* Amiodarone 200 MG TABLET PO SCH (09:37)
[2021-04-04] MEDS: *HR* OxyCODONE Immed Rel 5 MG TABLET PO PRN ×2 (09:40→20:44)
[2021-04-04] MEDS ORDERED: Ondansetron 4 MG/2 ML VIAL IVP PRN (10:19)
[2021-04-04] MEDS ORDERED: methylPREDNISolone 125 MG/2 ML VIAL IVP PRN (10:19)
[2021-04-04] MEDS ORDERED: Bamlanivimab 700 MG, Etesevimab 1,400 MG in 0.9 % Sodium Chloride 100 ML IVPB ONE (10:19)
[2021-04-04] MEDS ORDERED: EPINEPHrine 1 MG/ML VIAL IM PRN (10:19)
[2021-04-04] MEDS ORDERED: Furosemide 40 MG/4 ML VIAL IVP ONE (10:40)
[2021-04-04] MEDS ORDERED: Acetaminophen 325 MG TABLET PO SCH (12:00)
[2021-04-04] MEDS: *HR* Rivaroxaban 15 MG TABLET PO SCH (17:30)
[2021-04-04] MEDS: Melatonin 3 MG TABLET PO SCH (20:43)
[2021-04-04] MEDS: traZODone 50 MG TABLET PO SCH (20:44)
[2021-04-04] MEDS: QUEtiapine Fumarate 25 MG TABLET PO PRN (20:44)
[2021-04-05 06:52] VITALS: TEMP 99.2
[2021-04-05 07:42] LABS: BUN/Creatinine Ratio 18 (6-26); Blood Urea Nitrogen 23 mg/dL (8-23); Calcium 8.7 mg/dL (8.6-10.3); Carbon Dioxide 23 mEq/L (23-29); Chloride 99 mEq/L (98-107); Glucose 102 mg/dL (70-105); Osmolality,Calculated 278 (280-300); Potassium 5.4 mEq/L (3.5-5.1); Sodium 132 mEq/L (136-145); eGFR For African Americans > 60 (> 60); eGFR For Non-African Americans 55 (> 60)
[2021-04-05 07:52] LABS: Basophils # 0.1 K/mcL (0.0-0.2); Basophils % 0.8 %; Eosinophils % 0.3 %; Hematocrit 44.1 % (37.5-50.1); Hemoglobin 14.5 g/dL (12.9-16.9); Immature Granulocytes % 2.5 % (0-4); Lymphocytes # 0.9 K/mcL (0.6-4.6); Lymphocytes % 10.8 %; Mean Corpuscular HGB Conc 32.9 g/dL (31.6-35.5); Mean Corpuscular Hemoglobin 29.4 pg (28.0-33.3); Mean Corpuscular Volume 89.3 fL (83.0-100.0); Mean Platelet Volume 10.3 fL (9.4-12.4); Monocytes # 1.3 K/mcL (0.0-1.3); Monocytes % 14.7 %; Neutrophils # 6.1 K/mcL (1.6-8.9); Nucleated Red Blood Cells 0.7 /100 WBC (0); Platelet Count 200 K/mcL (140-400); Red Blood Count 4.94 M/mcL (4.19-5.50); Red Cell Distribution Width 15.4 % (11.5-14.5); Segmented Neutrophils % 70.9 %; White Blood Count 8.7 K/mcL (4.3-11.1)
[2021-04-05] MEDS: Insulin LISPRO 300 UNITS/3 ML VIAL SUBQ SCH ×2 (09:00→11:41)
[2021-04-05] MEDS: Hydrocortisone 10 MG TABLET PO SCH ×2 (09:08→11:41)
[2021-04-05] MEDS: *HR* Amiodarone 200 MG TABLET PO SCH (09:09)
[2021-04-05 11:38] VITALS: BP 130/69; PULSE 77; O2SAT 93
== END 2021-04-05 15:00 | disposition home health service (06) | DRG 314 ==
LOC: EMEROOARM 18:23 → SUATTDRO 03-31 00:11 → 3NENU 03-31 00:11
PROVIDERS: ADMIT Internal Medicine; ATTEND Internal Medicine

== ENCOUNTER 2021-05-01 19:58 | Inpatient (IN) ==
[2021-05-01] MEDS ORDERED: 0.9 % Sodium Chloride 500 ML IVC ONE (20:15)
[2021-05-01] MEDS ORDERED: Hydrocortisone Sodium Succ 100 MG/2 ML VIAL IVP ONE (21:09)
[2021-05-01 21:14] LABS: Basophils % 0.4 %; Eosinophils # 0.2 K/mcL (0.0-0.6); Eosinophils % 2.4 %; Hematocrit 42.5 % (37.5-50.1); Hemoglobin 13.5 g/dL (12.9-16.9); Immature Granulocytes % 0.4 % (0-4); Lymphocytes # 0.6 K/mcL (0.6-4.6); Lymphocytes % 5.8 %; Mean Corpuscular HGB Conc 31.8 g/dL (31.6-35.5); Mean Corpuscular Hemoglobin 28.4 pg (28.0-33.3); Mean Corpuscular Volume 89.5 fL (83.0-100.0); Mean Platelet Volume 10.4 fL (9.4-12.4); Monocytes # 1.1 K/mcL (0.0-1.3); Platelet Count 216 K/mcL (140-400); Red Blood Count 4.75 M/mcL (4.19-5.50); Red Cell Distribution Width 14.8 % (11.5-14.5)
[2021-05-01 21:21] LABS: INR 2.5; Prothrombin Time 27.5 Seconds (9.4-12.1)
[2021-05-01 21:23] LABS: Activated Partial Thrombo Time 39.8 Seconds (26.0-36.0)
[2021-05-01 21:31] LABS: BUN/Creatinine Ratio 16 (6-26); Blood Urea Nitrogen 39 mg/dL (8-23); Calcium 8.7 mg/dL (8.6-10.3); Carbon Dioxide 35 mEq/L (23-29); Chloride 90 mEq/L (98-107); Glucose 115 mg/dL (70-105); Osmolality,Calculated 290 (280-300); Potassium 2.6 mEq/L (3.5-5.1); Sodium 135 mEq/L (136-145); eGFR For African Americans 32 (> 60); eGFR For Non-African Americans 26 (> 60)
[2021-05-01 21:32] LABS: Troponin I < 0.03 ng/mL (< 0.04)
[2021-05-01 21:46] LABS: Thyroid Stimulating Hormone 1.221 mcIU/mL (0.340-5.600)
[2021-05-02 00:01] LABS: Bilirubin,Urine Negative (Negative); Blood,Urine Negative (Negative); Clarity,Urine Clear (Clear); Color,Urine Light-Yellow (Yellow); Glucose,Urine (UA) Normal (Normal); Ketones,Urine Negative (Negative); Leukocyte Esterase,Urine Negative (Negative); Nitrite,Urine Negative (Negative); PH,Urine 6.5 pH Units (5.0-8.0); Protein,Urine Trace mg/dL (Neg-Trace); Specific Gravity,Urine 1.009 (1.010-1.025); Urobilinogen,Urine Normal (Normal)
[2021-05-02 00:12] LABS: Amphetamine Screen,Urine Negative ng/mL (Cutoff=1000); Barbiturate Screen,Urine Negative ng/mL (Cutoff=200); Benzodiazepines Screen,Urine Negative ng/mL (Cutoff=200); Cannabinoid Screen,Urine Negative ng/mL (Cutoff = 50); Cocaine Screen,Urine Negative ng/mL (Cutoff= 300); Opiate Screen,Urine Negative ng/mL (Cutoff=300); Phencyclidine Screen,Urine Negative ng/mL (Cutoff=25)
[2021-05-02] MEDS ORDERED: *HR* Promethazine 25 MG/ML VIAL IM PRN (01:23)
[2021-05-02] MEDS ORDERED: Acetaminophen 325 MG TABLET PO PRN (01:23)
[2021-05-02] MEDS ORDERED: Naloxone 0.4 MG/ML INJ IVP PRN (01:23)
[2021-05-02] MEDS ORDERED: *HR* Dextrose 50 % in Water (Syg) 50 ML SYRINGE IVP PRN (02:49)
[2021-05-02] MEDS ORDERED: Dextrose Gel 15 GM/37.5 ML TUBE PO PRN ×2 (02:49)
[2021-05-02] MEDS ORDERED: D5% in Water 1,000 ML IVC PRN (02:49)
[2021-05-02] MEDS ORDERED: Ipratropium/Albuterol Neb 3 ML IH PRN (02:52)
[2021-05-02] MEDS: 0.9 % Sodium Chloride 1,000 ML IVC SCH ×2 (04:28→14:13)
[2021-05-02 04:53] LABS: Basophils % 0.4 %; Eosinophils % 0.2 %; Immature Granulocytes % 0.5 % (0-4); Red Cell Distribution Width 14.9 % (11.5-14.5)
[2021-05-02 04:56] LABS: Hematocrit 44.6 % (37.5-50.1); Hemoglobin 14.2 g/dL (12.9-16.9); Immature Platelets 5.2 % (1.1-6.1); Lymphocytes # 0.6 K/mcL (0.6-4.6); Lymphocytes % 5.8 %; Mean Corpuscular HGB Conc 31.8 g/dL (31.6-35.5); Mean Corpuscular Hemoglobin 28.5 pg (28.0-33.3); Mean Corpuscular Volume 89.6 fL (83.0-100.0); Monocytes # 0.7 K/mcL (0.0-1.3); Monocytes % 7.4 %; Neutrophils # 8.3 K/mcL (1.6-8.9); Platelet Count 192 K/mcL (140-400); Red Blood Count 4.98 M/mcL (4.19-5.50); Segmented Neutrophils % 85.7 %; White Blood Count 9.7 K/mcL (4.3-11.1)
[2021-05-02 04:58] LABS: INR 1.6; Prothrombin Time 18.3 Seconds (9.4-12.1)
[2021-05-02] MEDS: Hydrocortisone Sodium Succ 100 MG/2 ML VIAL IVP SCH ×3 (04:58→20:09)
[2021-05-02 05:04] LABS: Albumin 3.6 g/dL (3.5-5.7); Albumin/Globulin Ratio 1.2 (1.1-2.2); Bilirubin,Total 0.5 mg/dL (0.3-1.0); Calcium 8.5 mg/dL (8.6-10.3); Magnesium 2.1 mg/dL (1.6-2.6); Phosphorous 2.7 mg/dL (2.7-4.5); Potassium 3.1 mEq/L (3.5-5.1); Total Protein 6.6 g/dL (6.4-8.9)
[2021-05-02] MEDS: Budesonide/Formoterol 160/4.5 1 PUFF INH IH SCH ×2 (08:06→19:58)
[2021-05-02] MEDS: *HR* HYDROcodone/Acet 5/325 mg TABLET PO PRN (09:21)
[2021-05-02] MEDS: PrednisoLONE Acetate 1% Opth 5 ML BOTTLE LEFT EYE SCH ×2 (11:55→20:03)
[2021-05-02] MEDS: Ketorolac OPTH Soln 5 ML BOTTLE LEFT EYE SCH ×2 (11:55→20:03)
[2021-05-02] MEDS: Insulin LISPRO 300 UNITS/3 ML VIAL SUBQ SCH (16:51)
[2021-05-02] MEDS: *HR* Rivaroxaban 15 MG TABLET PO SCH (16:51)
[2021-05-02] MEDS: Melatonin 3 MG TABLET PO PRN (20:02)
[2021-05-02] MEDS: Gabapentin 400 MG CAPSULE PO SCH (20:02)
[2021-05-03] MEDS: *HR* HYDROcodone/Acet 5/325 mg TABLET PO PRN (00:54)
[2021-05-03] MEDS: Hydrocortisone Sodium Succ 100 MG/2 ML VIAL IVP SCH ×2 (05:01→16:05)
[2021-05-03] MEDS: Insulin LISPRO 300 UNITS/3 ML VIAL SUBQ SCH ×3 (08:00→16:35)
[2021-05-03] MEDS: *HR* Amiodarone 200 MG TABLET PO SCH (08:58)
[2021-05-03] MEDS: PrednisoLONE Acetate 1% Opth 5 ML BOTTLE LEFT EYE SCH ×2 (08:58→20:10)
[2021-05-03] MEDS: Gabapentin 400 MG CAPSULE PO SCH ×2 (08:58→20:09)
[2021-05-03] MEDS: Ketorolac OPTH Soln 5 ML BOTTLE LEFT EYE SCH ×2 (08:58→20:10)
[2021-05-03 09:14] LABS: Calcium 8.7 mg/dL (8.6-10.3); Potassium 2.7 mEq/L (3.5-5.1)
[2021-05-03 09:16] LABS: Magnesium 2.1 mg/dL (1.6-2.6); Phosphorous 1.6 mg/dL (2.7-4.5)
[2021-05-03] MEDS: Budesonide/Formoterol 160/4.5 1 PUFF INH IH SCH ×2 (09:55→19:52)
[2021-05-03] MEDS: *HR* Rivaroxaban 15 MG TABLET PO SCH (17:02)
[2021-05-03] MEDS: Hydrocortisone 10 MG TABLET PO SCH (17:02)
[2021-05-04 04:44] LABS: INR 1.9; Prothrombin Time 21.5 Seconds (9.4-12.1)
[2021-05-04] MEDS: Gabapentin 400 MG CAPSULE PO SCH ×2 (07:50→21:00)
[2021-05-04] MEDS: PrednisoLONE Acetate 1% Opth 5 ML BOTTLE LEFT EYE SCH ×2 (07:51→21:01)
[2021-05-04] MEDS: *HR* Amiodarone 200 MG TABLET PO SCH (07:52)
[2021-05-04] MEDS: Insulin LISPRO 300 UNITS/3 ML VIAL SUBQ SCH ×3 (08:06→17:11)
[2021-05-04 08:52] LABS: BUN/Creatinine Ratio 19 (6-26); Blood Urea Nitrogen 23 mg/dL (8-23); Calcium 9.1 mg/dL (8.6-10.3); Carbon Dioxide 35 mEq/L (23-29); Chloride 97 mEq/L (98-107); Glucose 97 mg/dL (70-105); Osmolality,Calculated 292 (280-300); Potassium 2.9 mEq/L (3.5-5.1); Sodium 139 mEq/L (136-145); eGFR For African Americans > 60 (> 60); eGFR For Non-African Americans 57 (> 60)
[2021-05-04 08:53] LABS: Phosphorous 2.3 mg/dL (2.7-4.5)
[2021-05-04] MEDS ORDERED: Hydrocortisone 10 MG TABLET PO SCH (09:00)
[2021-05-04] MEDS: Ketorolac OPTH Soln 5 ML BOTTLE LEFT EYE SCH ×2 (10:46→21:01)
[2021-05-04] MEDS: Budesonide/Formoterol 160/4.5 1 PUFF INH IH SCH ×2 (11:05→19:54)
[2021-05-04] MEDS ORDERED: *HR* Propofol 200 MG/20 ML VIAL IVP ONE (12:41)
[2021-05-04] MEDS ORDERED: Lidocaine -MPF 2% 5 ML VIAL ONE (12:41)
[2021-05-04] MEDS: Hydrocortisone 10 MG TABLET PO SCH ×2 (13:59→16:33)
[2021-05-04] MEDS: *HR* Rivaroxaban 15 MG TABLET PO SCH (16:32)
[2021-05-04] MEDS: Melatonin 3 MG TABLET PO PRN (21:00)
[2021-05-04] MEDS: *HR* HYDROcodone/Acet 5/325 mg TABLET PO PRN (21:00)
[2021-05-04 21:10] VITALS: O2SAT 94
[2021-05-05] MEDS ORDERED: traZODone 50 MG TABLET PO SCH (01:00)
[2021-05-05 06:31] VITALS: BP 118/67; PULSE 67; TEMP 97.7
[2021-05-05] MEDS: Budesonide/Formoterol 160/4.5 1 PUFF INH IH SCH (07:39)
== END 2021-05-05 08:12 | disposition home health service (06) | DRG 644 ==
LOC: EMEROOARM 19:58 → 3NENU 19:58 → SUATTDRO 05-02 02:49 → 3NENU 05-02 03:45 → SUATTDRO 05-03 14:45
PROVIDERS: ADMIT Internal Medicine; ATTEND Family Medicine
PROC: ENDOEBX (2021-05-04 14:35)

== ENCOUNTER 2022-01-15 13:46 | Inpatient (IN) ==
[2022-01-15 16:11] LABS: Basophils % 0.4 %; Eosinophils # 0.5 K/mcL (0.0-0.6); Eosinophils % 6.7 %; Hematocrit 37.7 % (37.5-50.1); Hemoglobin 11.6 g/dL (12.9-16.9); Immature Granulocytes % 0.4 % (0-4); Lymphocytes # 0.9 K/mcL (0.6-4.6); Lymphocytes % 13.7 %; Mean Corpuscular HGB Conc 30.8 g/dL (31.6-35.5); Mean Corpuscular Hemoglobin 28.8 pg (28.0-33.3); Mean Corpuscular Volume 93.5 fL (83.0-100.0); Mean Platelet Volume 9.3 fL (9.4-12.4); Monocytes # 0.9 K/mcL (0.0-1.3); Monocytes % 13.5 %; Neutrophils # 4.4 K/mcL (1.6-8.9); Platelet Count 267 K/mcL (140-400); Red Blood Count 4.03 M/mcL (4.19-5.50); Red Cell Distribution Width 16.3 % (11.5-14.5); Segmented Neutrophils % 65.3 %; White Blood Count 6.7 K/mcL (4.3-11.1)
[2022-01-15 16:22] LABS: BUN/Creatinine Ratio 16 (6-26); Blood Urea Nitrogen 18 mg/dL (8-23); Calcium 8.6 mg/dL (8.6-10.3); Carbon Dioxide 31 mEq/L (23-29); Chloride 102 mEq/L (98-107); Glucose 113 mg/dL (70-105); Osmolality,Calculated 287 (280-300); Potassium 4.3 mEq/L (3.5-5.1); Sodium 137 mEq/L (136-145); eGFR For African Americans > 60 (> 60); eGFR For Non-African Americans > 60 (> 60)
[2022-01-15 16:23] LABS: Troponin I < 0.03 ng/mL (< 0.04)
[2022-01-15] MEDS ORDERED: *HR* Heparin 5,000 UNIT/ML VIAL IVP PRN ×2 (17:31)
[2022-01-15] MEDS ORDERED: *HR* Heparin 5,000 UNIT/ML VIAL IVP ONE (17:31)
[2022-01-15] MEDS ORDERED: Heparin 25,000UNIT/250ML 1/2NS 25,000 UNIT/250 ML IV.SOLN IVC SCH (17:45)
[2022-01-15] MEDS ORDERED: Naloxone 0.4 MG/ML INJ IVP PRN (18:03)
[2022-01-15] MEDS ORDERED: Ondansetron 4 MG/2 ML VIAL IVP PRN (18:03)
[2022-01-15] MEDS ORDERED: Furosemide 40 MG/4 ML VIAL IVP ONE (18:06)
[2022-01-15] MEDS ORDERED: Dextrose Gel 15 GM/37.5 ML TUBE PO PRN ×2 (18:37)
[2022-01-15] MEDS ORDERED: D5% in Water 1,000 ML IVC PRN (18:37)
[2022-01-15] MEDS ORDERED: *HR* Dextrose 50 % in Water (Syg) 50 ML SYRINGE IVP PRN (18:37)
[2022-01-15] MEDS ORDERED: Perflutren Lipid Microsphere 1.3 ML in 0.9 % Sodium Chloride 8.7 ML IVP PRN (18:41)
[2022-01-15 19:27] LABS: Bacteria,Urine Few per hpf (None-Few); Bilirubin,Urine Negative (Negative); Blood,Urine Negative (Negative); Clarity,Urine Turbid (Clear); Color,Urine Light-Yellow (Yellow); Glucose,Urine (UA) Normal (Normal); Ketones,Urine Negative (Negative); Leukocyte Esterase,Urine Moderate (Negative); Mucus,Urine Few per lpf (None-Few); Nitrite,Urine Negative (Negative); PH,Urine 6.5 pH Units (5.0-8.0); Protein,Urine Negative (Neg-Trace); RBC,Urine 0-3 per hpf (0-3); Specific Gravity,Urine 1.015 (1.010-1.025); Squamous Epithelial Cell,Urine Few per hpf (None-Few); WBC,Urine 15-30 per hpf (0-3)
[2022-01-15 20:37] LABS: Hematocrit 42.5 % (37.5-50.1); Hemoglobin 12.7 g/dL (12.9-16.9); Mean Corpuscular HGB Conc 29.9 g/dL (31.6-35.5); Mean Corpuscular Hemoglobin 28.2 pg (28.0-33.3); Mean Corpuscular Volume 94.2 fL (83.0-100.0); Mean Platelet Volume 9.3 fL (9.4-12.4); Platelet Count 293 K/mcL (140-400); Red Blood Count 4.51 M/mcL (4.19-5.50); Red Cell Distribution Width 16.4 % (11.5-14.5); White Blood Count 6.5 K/mcL (4.3-11.1)
[2022-01-15 20:45] LABS: INR 1.3
[2022-01-15 20:47] LABS: Activated Partial Thrombo Time 38.5 Seconds (26.0-36.0)
[2022-01-15] MEDS: Insulin LISPRO 300 UNITS/3 ML VIAL SUBQ SCH (21:09)
[2022-01-15] MEDS: Apixaban 5 MG TABLET PO SCH (21:09)
[2022-01-15] MEDS: *HR* OxyCODONE Immed Rel 5 MG TABLET PO PRN (21:09)
[2022-01-15] MEDS: Melatonin 3 MG TABLET PO SCH (21:09)
[2022-01-16 07:16] LABS: Basophils % 0.5 %; Eosinophils # 0.5 K/mcL (0.0-0.6); Eosinophils % 8.7 %; Hematocrit 37.4 % (37.5-50.1); Hemoglobin 11.3 g/dL (12.9-16.9); Immature Granulocytes % 0.3 % (0-4); Lymphocytes # 0.9 K/mcL (0.6-4.6); Lymphocytes % 16.1 %; Mean Corpuscular HGB Conc 30.2 g/dL (31.6-35.5); Mean Corpuscular Hemoglobin 28.2 pg (28.0-33.3); Mean Corpuscular Volume 93.3 fL (83.0-100.0); Mean Platelet Volume 9.6 fL (9.4-12.4); Monocytes # 0.9 K/mcL (0.0-1.3); Monocytes % 15.3 %; Neutrophils # 3.4 K/mcL (1.6-8.9); Platelet Count 280 K/mcL (140-400); Red Blood Count 4.01 M/mcL (4.19-5.50); Red Cell Distribution Width 16.3 % (11.5-14.5); Segmented Neutrophils % 59.1 %; White Blood Count 5.8 K/mcL (4.3-11.1)
[2022-01-16 07:37] LABS: BUN/Creatinine Ratio 17 (6-26); Blood Urea Nitrogen 18 mg/dL (8-23); Calcium 8.5 mg/dL (8.6-10.3); Carbon Dioxide 35 mEq/L (23-29); Chloride 101 mEq/L (98-107); Glucose 97 mg/dL (70-105); Magnesium 2.1 mg/dL (1.6-2.6); Osmolality,Calculated 292 (280-300); Potassium 4.1 mEq/L (3.5-5.1); Sodium 140 mEq/L (136-145); eGFR For African Americans > 60 (> 60); eGFR For Non-African Americans > 60 (> 60)
[2022-01-16] MEDS: Insulin LISPRO 300 UNITS/3 ML VIAL SUBQ SCH ×4 (08:12→20:55)
[2022-01-16] MEDS: Furosemide 20 MG/2 ML VIAL IVP SCH ×2 (08:38→16:51)
[2022-01-16] MEDS: *HR* Amiodarone 200 MG TABLET PO SCH (08:38)
[2022-01-16] MEDS: Metoprolol XL (24 HR) Succ 25 MG TAB.ER.24H PO SCH (08:38)
[2022-01-16] MEDS: Apixaban 5 MG TABLET PO SCH (08:38)
[2022-01-16] MEDS: *HR* OxyCODONE Immed Rel 5 MG TABLET PO PRN ×2 (08:38→21:28)
[2022-01-16] MEDS: *HR* Enoxaparin 150 MG/ML SYRINGE SQ SCH (21:02)
[2022-01-16] MEDS: Melatonin 3 MG TABLET PO SCH (21:03)
[2022-01-17] MEDS: Insulin LISPRO 300 UNITS/3 ML VIAL SUBQ SCH ×4 (07:27→21:04)
[2022-01-17] MEDS: *HR* Enoxaparin 150 MG/ML SYRINGE SQ SCH ×2 (08:05→21:04)
[2022-01-17] MEDS: *HR* Amiodarone 200 MG TABLET PO SCH (08:06)
[2022-01-17] MEDS: Furosemide 20 MG/2 ML VIAL IVP SCH ×2 (08:06→17:10)
[2022-01-17] MEDS: Metoprolol XL (24 HR) Succ 25 MG TAB.ER.24H PO SCH (08:06)
[2022-01-17] MEDS: cephALEXin 500 MG CAPSULE PO SCH ×3 (13:18→21:04)
[2022-01-17] MEDS: Melatonin 3 MG TABLET PO SCH (21:04)
[2022-01-18] MEDS: Insulin LISPRO 300 UNITS/3 ML VIAL SUBQ SCH ×4 (07:44→20:57)
[2022-01-18] MEDS: *HR* Amiodarone 200 MG TABLET PO SCH (07:52)
[2022-01-18] MEDS: Furosemide 20 MG/2 ML VIAL IVP SCH (07:52)
[2022-01-18] MEDS: Metoprolol XL (24 HR) Succ 25 MG TAB.ER.24H PO SCH (07:52)
[2022-01-18] MEDS: *HR* Enoxaparin 150 MG/ML SYRINGE SQ SCH ×2 (07:52→21:02)
[2022-01-18] MEDS: cephALEXin 500 MG CAPSULE PO SCH ×4 (07:53→21:01)
[2022-01-18] MEDS: Melatonin 3 MG TABLET PO SCH (21:02)
[2022-01-19 06:33] VITALS: TEMP 98.1
[2022-01-19] MEDS: Insulin LISPRO 300 UNITS/3 ML VIAL SUBQ SCH ×4 (06:35→13:03)
[2022-01-19] MEDS: cephALEXin 500 MG CAPSULE PO SCH ×2 (08:18→12:54)
[2022-01-19] MEDS: *HR* Amiodarone 200 MG TABLET PO SCH (08:18)
[2022-01-19] MEDS: *HR* Enoxaparin 150 MG/ML SYRINGE SQ SCH (08:18)
[2022-01-19] MEDS: Metoprolol XL (24 HR) Succ 25 MG TAB.ER.24H PO SCH (08:18)
[2022-01-19 10:59] VITALS: BP 149/82; PULSE 84; O2SAT 98
== END 2022-01-19 15:03 | disposition home health service (06) | DRG 291 ==
LOC: 3BNU 13:46 → EMEROOARM 13:46 → SUATTDRO 18:26 → 3BNU 19:29 → SUATTDRO 01-16 17:01 → 3BNU 01-16 19:59
PROVIDERS: ADMIT Family Medicine; ATTEND Registered Nurse